=== PATIENT | female | born 1945 | race Caucasian/White ===

== ENCOUNTER → 2017-07-17 15:15 | Outpatient (CLI) | payer MEDICAID, SELFPAY ==
--- NOTE | 2017-07-17 15:17 | CT_ITS ---
STUDY: CT ABDOMEN AND PELVIS WITH CONTRAST REASON FOR EXAM: Female, 71 years old. Left-sided abdominal pain. Dehydration. RADIATION DOSAGE (If Supplied By Facility): CTDIvol = ( 20.29 ) mGy, DLP = ( 2123.93 ) mGycm TECHNIQUE: Transaxial images were obtained from the dome of the diaphragm to the symphysis pubis with oral contrast. 100mL ml of Isovue 300 contrast was administered. Sagittal and coronal images were reconstructed. Individualized dose optimization techniques were used for this CT. COMPARISON: Comparison is made with prior study dated July 11, 2016. FINDINGS: Small calcified granuloma at the right lung base. Tiny 2 mm noncalcified nodules in the right lung base suggestive of noncalcified granulomas. These are unchanged. The visualized portions of the heart are within normal limits. Normal liver. There are surgical clips in the gallbladder fossa consistent with a prior cholecystectomy. Stable mild degree of the central intrahepatic biliary ductal dilatation. There are multiple benign calcified granulomata of the spleen. Normal pancreas. There is a small, circumscribed, smooth, low attenuation left adrenal mass, consistent with an adrenal adenoma. This measures 1 cm. Normal right adrenal gland. Stable 4 mm nonobstructive calculus in the midportion of the right kidney. Normal left kidney. There is a small hiatal hernia. Normal small intestine. There are multiple colonic diverticula consistent with diverticulosis. The patient is status post appendectomy. There is diffuse atherosclerotic calcification of the abdominal aorta, without a demonstrated aneurysm. Normal inferior vena cava. There is borderline retroperitoneal lymphadenopathy with enlarged nodes no greater than 10mm in the short axis diameter. Normal urinary bladder. There is absence of the uterus consistent with a prior hysterectomy. Evidence of prior tubal ligation. There is a small umbilical hernia containing fat. There are diffuse degenerative changes of the visualized lumbar spine. CT/Abdomen/Pelvis WITH Contrast IMPRESSION: Status post cholecystectomy. Mild intrahepatic biliary ductal dilatation. Nonobstructive calculus in the right kidney. Electronically Signed: Baljeet Chen MD at 16:06 EST Tel [phone], Service support ,
== END ==
PROVIDERS: Family Provider Family Medicine Geriatric Medicine; PCP Family Medicine Geriatric Medicine; Visit Provider Family Medicine Geriatric Medicine
DX: R10.9 Unspecified abdominal pain (principal); E86.0 Dehydration
CPT/HCPCS: 96360; 96361; 36415; 74177; 80053; 85025; 87086; 87088; J7030; Q9967; A4216

== ENCOUNTER 2017-08-30 15:48 | Emergency (ER) | payer MEDICAID, SELFPAY ==
[2017-08-30 15:49] VITALS: BP 117/53; PULSE 82; RESP 16; TEMP 36.4; O2SAT 100; BMI 35.5
[2017-08-30 16:00] LABS: Bedside Glucose 204 mg/dL (70-110)
--- NOTE | 2017-08-30 16:23 | CT_ITS ---
STUDY: CT BRAIN WITHOUT CONTRAST REASON FOR EXAM: Female, 71 years old. CONFUSION RADIATION DOSAGE (If Supplied By Facility): CTDIvol = ( 44.99 ) mGy, DLP = ( 745.49 ) mGycm TECHNIQUE: Transaxial CT imaging of the brain was performed without administration of intravenous contrast material. COMPARISON: None. FINDINGS: Normal soft tissue structures. Normal calvarium. There are calcifications around the carotid artery. These are noted in the cavernous carotid arteries. There is mild cerebral atrophy with widening of the extra-axial spaces and ventricular dilatation. There are areas of decreased attenuation within the white matter tracts of the supratentorial brain, consistent with microvascular disease changes. Normal basal ganglia and thalami. Normal brainstem. There is mild cerebellar atrophy. There is no intracranial hemorrhage. There are no findings of an acute ischemic infarction. Normal visualized paranasal sinuses. CT/Brain/Head without Contrast IMPRESSION: Chronic involutional changes of the brain. There are no acute findings. Electronically Signed: Peter Carrera MD at 18:04 EST , Service support ,
--- NOTE | 2017-08-30 16:24 | EKG12_ITS ---
Test Reason : GEN ILL Blood Pressure : / mmHG Vent. Rate : 093 BPM Atrial Rate : 093 BPM P-R Int : 126 ms QRS Dur : 078 ms QT Int : 374 ms P-R-T Axes : 038 025 032 degrees QTc Int : 465 ms Normal sinus rhythm Septal infarct , age undetermined Abnormal ECG Confirmed by DUTCH BOWMAN, ANTONIA ([id number]), ip/mosaic technician JERRI SONI ([id number]) on 09/05/2017 3:28:54 PM Referred By: ROSENDO Confirmed By:ANTONIA JUDD MD
--- NOTE | 2017-08-30 16:30 | RAD_ITS ---
STUDY: X-RAY CHEST REASON FOR EXAM: Female, 71 years old. Weakness. TECHNIQUE: Single AP portable view of the chest. COMPARISON: Comparison is made with prior study dated November 28, 2015. FINDINGS: EKG electrodes are seen. The lungs are clear and expanded. There is no demonstrated pleural abnormality. Normal size heart. Normal mediastinum and elva. Normal visualized pulmonary arteries. There is atherosclerotic calcification of the aortic arch with tortuosity. There are diffuse degenerative changes of the visualized thoracic spine. Normal visualized ribs, clavicles, and shoulders. There is no demonstrated abnormality of the visualized soft tissue structures of the upper abdomen. RAD/Chest 1 View (Portable) IMPRESSION: No acute abnormality is seen. Electronically Signed: Baljeet Chen MD at 13:44 EST Tel [phone], Service support ,
[2017-08-30 16:57] LABS: Absolute Lymphocyte Count 2.41 X10^3/ul (0.83-4.51); Absolute Neutrophil Count 7.3 X10^3/uL (2.0-7.7); Basophil# 0.06 X10^3/uL; Basophil% 0.5 % (0-1); Eosinophil# 0.16 X10^3/uL; Eosinophils% 1.5 % (0-5); Hematocrit 39.9 % (37-47); Hemoglobin 13.5 g/dl (12.0-15.0); Lymphocyte # 2.41 X10^3/ul (4.0); Mean Corp Hgb Conc 33.8 g/gl (32-36); Mean Corpuscular Hgb 31.3 pg (27.0-32.0); Mean Corpuscular Volume 92.6 fL (81-99); Monocyte# 1.04 X10^3/uL; Monocyte% 9.5 % (0-10); Neutrophil # 7.25 X10^3/uL (2.7-7.7); Neutrophil % 66.2 % (47-70); Platelet Count 200 K/mm3 (150-450); RBC Distribution Width CV 12.5 % (11.6-14.6); RBC Distribution Width SD 42.2 fl (35.1-43.9); Red Blood Count 4.31 M/mm3 (4.2-5.4)
[2017-08-30 16:58] LABS: POSITIVE COUNT NO; POSITIVE DIFFERENTIAL NO; POSITIVE MORPHOLOGY NO
[2017-08-30 17:01] LABS: Carboxyhemoglobin Frac (CO) 0.5 % (0.0-1.5)
[2017-08-30 17:01] LABS: Allen Test POS; Base Excess 1 mmol/L (-2 to +2); Blood Gas Specimen Type ART; O2 Delivery Device Room Air; PO2 67 mmHG (75-100); SITE R Radial; SO2 94 % (95-99); Time Given 1650; Total Carbon Dioxide 26 mmol/L; pCO2 37.6 mmHg (35-45); pH 7.43 (7.35-7.45)
[2017-08-30 17:33] LABS: ALB/GLOB Ratio 1.2 RATIO (0.9-2.4); AST(SGOT) 10 U/L (15-37); Alanine Aminotransfer ALT/SGPT 25 U/L (13-56); Albumin, Serum 3.8 g/dL (3.2-5.0); Alkaline Phosphatase 53 U/L (45-117); Anion Gap 9 (5-15); BUN 35 mg/dL (7-18); BUN/Creat Ratio 25.5 RATIO (10-20); Calcium,Total 9.5 mg/dL (8.5-10.1); Chloride 101 mmol/L (98-107); Creatinine, Serum 1.37 mg/dL (0.55-1.02); EST Glomerular Filtration Rate 40 mL/min (>60); Est Glom Filt Rate - Afr Amer 49 mL/min (>60); Estimated Creatinine Clearance 28.42 ml/min; Globulin 3.3 g/dL (2.2-4.2); Glucose 179 mg/dL (74-106); Lipase 345 U/L (73-393); Potassium 4.3 mmol/L (3.5-5.1); Protein, Total 7.1 g/dL (6.4-8.2); Sodium Level 138 mmol/L (136-145)
[2017-08-30 18:06] VITALS: BP 109/51; PULSE 79; RESP 14; O2SAT 97
[2017-08-30 18:26] LABS: Bacteria 0 SEEN /hpf (None Seen); Mucous, Urine 0 SEEN /hpf (<or=2+); Red Blood Cells-Urine 0 SEEN /hpf (0-5)
[2017-08-30 18:32] LABS: Color, Urine Yellow (Yellow); Glucose, Dipstick 1000 mg/dl (Normal); Ketone-Dipstick Negative (Negative); Leukocyte Esterase-Dipstick 100 /ul (Negative); Nitrite-Dipstick Negative (Negative); Occult Blood-Urine Negative /ul (Negative); Protein-Dipstick Negative (Negative); Specific Gravity, Urine 1.015 (1.002-1.030); Urine Bilirubin Dipstick Negative (Negative); Urine Clarity Clear (Clear); Urine Urobilinogen Normal (Normal)
[2017-08-30 18:39] LABS: Squamous Epithelial Cells - UA 0-5 SEEN /hpf (5-10); White Blood Cells 5-10 SEEN /hpf (0-5)
[2017-08-30 18:54] LABS: Amphetamine Urine VISTA NEGATIVE (<1000 ng/mL); Barbiturate Urine VISTA NEGATIVE (< 200 ng/mL); Benzodiazepine Urine VISTA NEGATIVE (< 200 ng/mL); Cocaine Urine VISTA NEGATIVE (< 300 ng/mL); Ecstacy Urine VISTA NEGATIVE (< 500 ng/mL); Methadone Urine VISTA NEGATIVE (< 300 ng/mL); PCP Urine VISTA NEGATIVE (< 25 ng/mL); THC Urine VISTA NEGATIVE (< 50 ng/mL); Vista UDS pH Range 5
--- NOTE | 2017-08-30 20:01 | ED.RN ---
THIS NURSE ENTERED PT'S ROOM TO SEE PT SITTING UP ON SIDE OF BED IN STREET CLOTHING. PT INSISTED ON IV BEING REMOVED FROM [facility]. PT WAS ASKED IF SHE WOULD BE LEAVING A.M.A. AND PT'S SON SCREAMED AT THIS NURSE WHAT MEDICAL ADVISE YOU HAVEN'T DONE A FUCKING THING FOR HER THIS NURSE LEFT THE ROOM AND INFORMED DR. HI. DR. HI AND THIS NURSE FOUND PT UP AMBULATING IN HALLWAY WITH HER SON. THIS NURSE EXPLAINED THAT THE I.V. NEEDED TO BE D/C'D BEFORE PT COULD LEAVE. PT INSISTED SHE COULD TAKE THE I.V. OUT AT HOME. DR. HI EXPLAINED THAT THE NURSE NEEDS TO REMOVE I.V. PRIOR TO LEAVING. PT RETURNED TO ROOM 12 AND I.V. WAS D/C'D.
[2017-08-30 20:25] LABS: Thyroid Stim Hormone (TSH) 0.82 uIU/mL (0.358-3.74)
--- NOTE | 2017-08-31 00:21 | ED.VISSUMM ---
- ER Visit Summary Date of Service: 08/31/17 Chief Complaint: Fatigue History of Present Illness: The patient is a 71 F patient states for the past 3 hours she is felt extremely fatigued. She tells me that she started the day feeling fine. She was cleaning the oven. Then all of a sudden fatigued today. She cannot really describe it any further. She denies any pain. 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 Physical Examination: Afebrile vital signs are stable Gen: Well-nourished well-developed Head: Normocephalic atraumatic Eyes: Perrl EOMI ENT: TMs clear no rhinorrhea moist mucous membranes Neck: Supple no lymphadenopathy no JVD nontender CVS: Regular rate rhythm no murmurs normal S1-S2 Respiratory: No distress clear to auscultation bilaterally chest nontender Abdomen: Soft nontender nondistended normal bowel sounds no masses Back: Nontender Extremity: Nontender no edema Skin: Normal color no rash Neuro: alert orientated ?3 CN II-XII intact she needs help getting out of the wheelchair. At time the patient appears that she is going to fall asleep. Test Results: EKG sinus at a rate of 93. CBC chemistries showed a BUN of 35 and creatinine 1.37. Liver lipase normal. Urinalysis 5-10 white cells. Troponin less than 0.02. Toxicology the urine negative alcohol negative carbon monoxide 0.5. ABG negative. CT the brain chest x-ray showed no acute. TSH 0.82 Emergency Department Course and Treatment: Patient's chief complaint is fatigue. She cannot qualify or quantify anything more other than tell me she is tired. Therefore a broad workup was invoked. The patient began to be tired of being here. Somehow she was able to stand up and walk down the hallway on her own. She is directed back to the room. Her son yelled at nursing. Patient then got up and walked down the hallway again was instructed to return to the room to have her IV removed. She states she will she remove it herself. It would appear that the patient is probably looking for some degree of secondary gain. I do not find anything focal. Patient has decided to leave the emergency department. Impression: 1. Fatigue 2. ED elopement This note was generated with Dragon dictation software. It may contain incorrect words, spelling, and punctuation that were not noted in review of the chart prior to signing ED Disposition - Plan for ED Patient: Chief Complaint: Fatigue Referrals: Eulogio Alexis Chi, MD [Primary Care Provider] -
== END 2017-08-30 20:02 | disposition left against medical advice (07) ==
PROVIDERS: Emergency Provider Emergency Medicine; Family Provider Family Medicine Geriatric Medicine; PCP Family Medicine Geriatric Medicine
DX: R53.83 Other fatigue (principal); K21.9 Gastro-esophageal reflux disease without esophagitis; E66.9 Obesity, unspecified; Z68.35 Body mass index [BMI] 35.0-35.9, adult; Z71.3 Dietary counseling and surveillance; Z86.73 Personal history of transient ischemic attack (TIA), and cerebral infarction without residual deficits; I10 Essential (primary) hypertension; E78.00 Pure hypercholesterolemia, unspecified; J44.9 Chronic obstructive pulmonary disease, unspecified; E11.42 Type 2 diabetes mellitus with diabetic polyneuropathy; Z87.891 Personal history of nicotine dependence
CPT/HCPCS: 36600; 70450; 71045; 80053; 80307; 80320; 81001; 82375; 82803; 82962; 83690; 84443; 84484; 85025; 87804; 93005; 99284; A4216; G0480

== ENCOUNTER → 2017-09-13 09:31 | Outpatient (CLI) | payer MEDICAID, SELFPAY ==
[2017-09-13 13:22] LABS: Absolute Lymphocyte Count 1.91 X10^3/ul (0.83-4.51); Absolute Neutrophil Count 5.2 X10^3/uL (2.0-7.7); Basophil# 0.03 X10^3/uL; Basophil% 0.4 % (0-1); Eosinophil# 0.17 X10^3/uL; Eosinophils% 2.1 % (0-5); Hematocrit 40.2 % (37-47); Hemoglobin 13.6 g/dl (12.0-15.0); Lymphocyte # 1.91 X10^3/ul (4.0); Lymphocyte % 24.1 % (19-41); Mean Corp Hgb Conc 33.8 g/gl (32-36); Mean Corpuscular Hgb 31.8 pg (27.0-32.0); Mean Corpuscular Volume 93.9 fL (81-99); Monocyte# 0.59 X10^3/uL; Monocyte% 7.4 % (0-10); Neutrophil # 5.23 X10^3/uL (2.7-7.7); Neutrophil % 65.9 % (47-70); Platelet Count 169 K/mm3 (150-450); RBC Distribution Width CV 12.6 % (11.6-14.6); RBC Distribution Width SD 41.5 fl (35.1-43.9); Red Blood Count 4.28 M/mm3 (4.2-5.4); White Blood Count 7.9 K/mm3 (4.4-11.0)
[2017-09-13 13:35] LABS: POSITIVE COUNT NO; POSITIVE DIFFERENTIAL NO; POSITIVE MORPHOLOGY NO
[2017-09-13 13:41] LABS: Vitamin D,25 Hydroxy 35.3 ng/mL (29.95-100.01)
[2017-09-13 13:50] LABS: ALB/GLOB Ratio 1.1 RATIO (0.9-2.4); AST(SGOT) 16 U/L (15-37); Alanine Aminotransfer ALT/SGPT 35 U/L (13-56); Albumin, Serum 3.8 g/dL (3.2-5.0); Alkaline Phosphatase 49 U/L (45-117); Anion Gap 8 (5-15); BUN 24 mg/dL (7-18); BUN/Creat Ratio 18.5 RATIO (10-20); Chloride 100 mmol/L (98-107); EST Glomerular Filtration Rate 43 mL/min (>60); Est Glom Filt Rate - Afr Amer 52 mL/min (>60); Globulin 3.4 g/dL (2.2-4.2); Glucose 350 mg/dL (74-106); Potassium 4.3 mmol/L (3.5-5.1); Protein, Total 7.2 g/dL (6.4-8.2); Sodium Level 136 mmol/L (136-145); Thyroid Stim Hormone (TSH) 0.93 uIU/mL (0.358-3.74)
== END ==
PROVIDERS: Family Provider Family Medicine Geriatric Medicine; PCP Family Medicine Geriatric Medicine; Visit Provider Family Medicine Geriatric Medicine
DX: E11.9 Type 2 diabetes mellitus without complications (principal); E55.9 Vitamin D deficiency, unspecified; I10 Essential (primary) hypertension
CPT/HCPCS: 36415; 80053; 82306; 84443; 85025

== ENCOUNTER → 2017-09-26 12:14 | Outpatient (CLI) | payer MEDICARE, SELFPAY | PROVIDERS: Family Provider Family Medicine Geriatric Medicine; PCP Family Medicine Geriatric Medicine; Visit Provider Family Medicine Geriatric Medicine | DX: R69 Illness, unspecified (principal) | CPT/HCPCS: 87633 ==

== ENCOUNTER 2017-10-16 15:28 | Observation (INO) | payer MEDICARE, SELFPAY ==
[2017-10-16 15:30] VITALS: BP 133/50; PULSE 83; RESP 18; TEMP 37.1; O2SAT 99; BMI 33.1
--- NOTE | 2017-10-16 16:23 | CT_ITS ---
STUDY: CT ABDOMEN AND PELVIS WITHOUT CONTRAST REASON FOR EXAM: Female, 71 years old. Bloody stool. GI bleed since yesterday RADIATION DOSAGE (If Supplied By Facility): CTDIvol = ( 20.66 ) mGy, DLP = ( 949.47 ) mGycm TECHNIQUE: Transaxial images were obtained from the dome of the diaphragm to the symphysis pubis with oral contrast, and without intravenous contrast. Sagittal and coronal images were reconstructed. Individualized dose optimization techniques were used for this CT. COMPARISON: 07/17/2017 FINDINGS: Densely calcified granuloma in the right lower lobe. The visualized portions of the heart are within normal limits. Normal liver. There are surgical clips in the gallbladder fossa consistent with a prior cholecystectomy. There are multiple benign calcified granulomata of the spleen. Normal pancreas. Normal bilateral adrenal glands. There is moderate cortical atrophy of the right kidney, consistent with chronic medical renal disease. Nonobstructing mid pole nephrolith measuring 6.6 mm. There is moderate cortical atrophy of the left kidney, consistent with chronic medical renal disease. Normal visualized stomach. Multiple loops of small bowel demonstrating mild wall thickening. No abnormal dilation or obstruction. There are multiple colonic diverticula consistent with diverticulosis. There is non-visualization of the appendix. There is diffuse atherosclerotic calcification of the abdominal aorta, without a demonstrated aneurysm. Normal inferior vena cava. Normal retroperitoneum. Normal urinary bladder. There is absence of the uterus consistent with a prior hysterectomy. There is a small umbilical hernia containing fat. There are diffuse degenerative changes of the visualized lumbar spine. CT/Abdomen/Pel W ORAL Cont Only IMPRESSION: Several loops of small bowel demonstrate mild wall thickening suggesting enteritis. No evidence of small bowel obstruction. Large bowel demonstrates fecal retention and diverticulosis without acute diverticulitis. No evidence of colitis. Status post cholecystectomy. Electronically Signed: Adonis Orlando DO at 19:04 EDT Tel , Service support ,
[2017-10-16 16:49] LABS: Absolute Lymphocyte Count 1.13 X10^3/ul (0.83-4.51); Absolute Neutrophil Count 5.4 X10^3/uL (2.0-7.7); Basophil# 0.03 X10^3/uL; Basophil% 0.4 % (0-1); Eosinophil# 0.09 X10^3/uL; Eosinophils% 1.3 % (0-5); Hematocrit 38.6 % (37-47); Lymphocyte # 1.13 X10^3/ul (4.0); Lymphocyte % 15.8 % (19-41); Mean Corp Hgb Conc 33.7 g/gl (32-36); Mean Corpuscular Hgb 32.3 pg (27.0-32.0); Monocyte# 0.49 X10^3/uL; Monocyte% 6.9 % (0-10); Neutrophil % 75.5 % (47-70); Platelet Count 173 K/mm3 (150-450); RBC Distribution Width CV 13.5 % (11.6-14.6); RBC Distribution Width SD 46.9 fl (35.1-43.9); Red Blood Count 4.02 M/mm3 (4.2-5.4); White Blood Count 7.2 K/mm3 (4.4-11.0)
[2017-10-16 16:50] LABS: POSITIVE COUNT NO; POSITIVE DIFFERENTIAL NO; POSITIVE MORPHOLOGY NO
[2017-10-16 16:58] LABS: International Normalized Ratio 0.9; Prothrombin Time (Protime)PT. 12.1 SECONDS (11.7-14.9)
[2017-10-16 17:21] LABS: Anion Gap 8 (5-15); BUN 22 mg/dL (7-18); BUN/Creat Ratio 15.1 RATIO (10-20); Calcium,Total 8.3 mg/dL (8.5-10.1); Chloride 97 mmol/L (98-107); Creatinine, Serum 1.46 mg/dL (0.55-1.02); EST Glomerular Filtration Rate 37 mL/min (>60); Est Glom Filt Rate - Afr Amer 45 mL/min (>60); Estimated Creatinine Clearance 27.95 ml/min; Glucose 735 mg/dL (74-106); Potassium 4.1 mmol/L (3.5-5.1); Sodium Level 131 mmol/L (136-145)
[2017-10-16] MEDS: Morphine 4 MG/ML Syringe IV (17:21)
[2017-10-16] MEDS: 0.9% Normal Saline 1,000 ML 1000 ML IV (17:21)
[2017-10-16] MEDS: Ondansetron 4 MG/2 ML Vial IV (17:22)
[2017-10-16 17:38] LABS: Lactic Acid 2.4 mmol/L (0.4-2.0)
--- NOTE | 2017-10-16 17:38 | ED.RN ---
Critical glucose of [address] Kay and Nelli RN made aware
[2017-10-16] MEDS: 0.9% Normal Saline 1,000 ML 999 ML IV (17:54)
[2017-10-16 17:56] LABS: Blood Gas Specimen Type VEN; SITE OTHER; Time Given 1744; VBG BASE EXCESS -1 mmol/L (-1.0-3.5); VBG Bicarbonate 24 mmol/L (22-26); VBG Oxygen Content 25 mmol/L (23-33); VBG PO2 24 mmHg (25-40); VBG SO2 43 % (50-70); VBG pCO2 39.6 mmHg (41-51); VBG pH 7.39 (7.32-7.42)
[2017-10-16 18:06] LABS: Bedside Glucose > 500 mg/dL (70-110)
[2017-10-16 18:28] VITALS: BP 123/50; PULSE 72; RESP 16; O2SAT 96
--- NOTE | 2017-10-16 18:36 | EKG12_ITS ---
Test Reason : CP Blood Pressure : / mmHG Vent. Rate : 074 BPM Atrial Rate : 074 BPM P-R Int : 130 ms QRS Dur : 080 ms QT Int : 376 ms P-R-T Axes : 053 038 034 degrees QTc Int : 417 ms Normal sinus rhythm Normal ECG Confirmed by HAYES MADSEN ([id number]), fashion editor JERRI SONI ([id number]) on 10/19/2017 2:39:36 PM Referred By: Eulogio Alexis Confirmed By:HAYES MADSEN
[2017-10-16 19:16] LABS: Bedside Glucose 477 mg/dL (70-110)
--- NOTE | 2017-10-16 19:45 | HP.PCM_ITS ---
Problem List (1) ELENITA on CPAP Status: Chronic (2) COPD (chronic obstructive pulmonary disease) Status: Chronic Qualifiers: Emphysema type: unspecified (3) Peripheral neuropathy Status: Chronic Qualifiers: Peripheral neuropathy type: polyneuropathy, unspecified Qualified Code(s): G62.9 - Polyneuropathy, unspecified (4) Esophageal reflux Status: Chronic Qualifiers: Esophagitis presence: esophagitis presence not specified Qualified Code(s) : K21.9 - Gastro-esophageal reflux disease without esophagitis (5) Depressive disorder Status: Chronic (6) Abdominal wound dehiscence Status: Chronic Qualifiers: Encounter type: subsequent encounter Qualified Code(s): T81.30XD - Disruption of wound, unspecified, subsequent encounter (7) 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 Comment: nonhealing MRSA diabetic ulcer abdominal wall (8) Personal history of Methicillin resistant Staphylococcus aureus infection Status: Chronic History of Present Illness Date of Admission: 10/16/17 This is a 71 F with a history of insulin requiring diabetes type 2, hypertension, CVA, ELENITA, hyperlipidemia and multiple abdominal surgeries . Who presented to the emergency room due to left lower quadrant abdominal pain and rectal bleed. Patient reported that she had bright red blood per rectum but later described dark stools. Occult test done in the emergency room is negative and her hemoglobin is > 13. CT Scan of the abdomen and pelvis done in the emergency room showed several loops of small bowels demonstrate mild wall thickening suggestive of enteritis, there is no evidence of small or large bowel obstruction. When I saw her in the emergency room she denied any abdominal pain and she has not had any rectal bleeding today. Noted in the emergency room to have hypoglycemia with blood sugar more than 700 she was started on insulin drip in the emergency room as he responded nicely with blood sugars now in 300s. The patient reports to me that she is prescribed insulin but she does not use it for no clear reasons. 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 abdominal wall Personal history of Methicillin resistant Staphylococcus aureus infection ( Chronic) Skin ulcer of abdominal wall with fat layer exposed (Chronic) Smoker (Chronic) Obesity (Chronic) Hypertension (Chronic) Diabetes type 2, uncontrolled (Chronic) Wound, surgical, nonhealing (Chronic) Hyperglycemia (Chronic) Morbid obesity with BMI of 40.0-44.9, adult (Chronic) Open abdominal wall wound (Chronic) painful insulin nodules abd wall (Chronic) late effect medical care with painful insulin nodules abdominal wall Hyperlipidemia (Chronic) MRSA (Chronic) MRSA anterior abdomen wall cellulitis (Chronic) Cerebrovascular disease (Chronic) Status post acute ischemic stroke No residual deficit Diabetes mellitus (Chronic) Allergies codeine Allergy (Verified 10/16/17 15:32) Shortness of breath Penicillins Allergy (Verified 10/16/17 15:32) Hives CILLINS Allergy (Uncoded 10/16/17 15:32) Unknown Home Medications: Ambulatory Orders Medication Instructions Recorded Clopidogrel Bisulfate [Plavix] 75 mg PO DAILY 04/10/15 Isosorbide Mononitrate [Isosorbide 30 mg PO DAILY 04/10/15 Mononitrate ER] Insulin Lispro [Humalog] 25 unit SC TIDCM 02/15/16 Metformin HCl [Glucophage] 1,000 mg PO BIDCM 02/15/16 Empagliflozin [Jardiance] 25 mg PO DAILY 07/17/17 Ergocalciferol [Vitamin D] 50,000 unit PO QMONTH 07/17/17 Linagliptin [Tradjenta] 5 mg PO DAILY 07/17/17 Famotidine [Famotidine] 40 mg PO DAILY 08/30/17 Paroxetine HCl [Paxil] 40 mg PO QHS 08/30/17 Valsartan/Hydrochlorothiazide 1 tab PO DAILY 08/30/17 [Valsartan-Hctz 320-25 mg Tab] Atorvastatin Calcium [Atorvastatin 40 mg PO QHS 10/16/17 Calcium] Insulin Glargine/Lixisenatide 30 unit SQ BID 10/16/17 [Soliqua 100 Unit-33 Mcg/ml Pen] Latanoprost [Latanoprost] 1 drop EACH EYE QHS 10/16/17 Omeprazole [Omeprazole] 40 g PO DAILY 10/16/17 Surgical History: appendectomy, cholecystectomy, hysterectomy, - Psychiatric History: Depression [employer] CHIEF History: No pertinent [employer] CHIEF history Smoking Status: Current every day smoker - *Family History Maternal History Items: No pertinent history Paternal History Items: No pertinent history Review of Systems Comment: Review of systems VTE Information - Inpt Only VTE Present on Admission: No VTE Mechan Device Prophylaxis: SCD's VTE Pharm Prophylaxis ordered?: Yes - Physical Exam General: Alert, Oriented x3 HEENT: Atraumatic Oral: Moist Mucosa Neck: Supple Lungs: Clear to auscultation Cardiovascular: Regular rate, Normal S1, Normal S2 Abdomen: Bowel Sounds Present, Soft Extremities: No edema Neurological: Cranial nerves II-XII grossly intact, Neuro grossly intact, Motor Exam 5/5 strength throughout Vital Signs Temp Pulse Resp BP Pulse Ox 98.8 F 72 16 123/50 H 96 10/16/17 15:30 10/16/17 18:28 10/16/17 18:28 10/16/17 18:28 10/16/17 18:28 Oxygen Delivery Method Room Air Weight: 82.2 kg Body Mass Index (BMI) 33.1 Finger Stick Blood Glucose 477 Microbiology Past 72 Hours 10/16/17 16:24 Stool Occult Blood (ANTONIO) - Final Stool Laboratory Tests Past 24 Hrs 10/16/17 10/16/17 10/16/17 16:24 16:24 16:24 WBC 7.2 RBC 4.02 L Hgb 13.0 Hct 38.6 MCV 96.0 MCH 32.3 H MCHC 33.7 RDW 13.5 RDW Differential 46.9 H Plt Count 173 MPV 11.0 Immature Gran % (Auto) 0.100 Neut % (Auto) 75.5 H Lymph % (Auto) 15.8 L Pennington % (Auto) 6.9 Eos % (Auto) 1.3 Baso % (Auto) 0.4 Absolute Neuts (auto) 5.4 Absolute Lymphs (auto) 1.13 Total Counted Not Reportable PT 12.1 INR 0.9 Specimen Type Sample Site VBG pH VBG pO2 VBG O2 Sat (Calc) VBG O2 Content VBG Base Excess POC Mix VBG pCO2 Pt Tmp Blood Gas Notified Whom Blood Gas Notified Time Sodium 131 L Potassium 4.1 Chloride 97 L Carbon Dioxide 26.0 Anion Gap 8 BUN 22 H Creatinine 1.46 H Estim Creat Clear Calc 27.95 Est GFR (MDRD) Af Amer 45 L Est GFR (MDRD) Non-Af 37 L BUN/Creatinine Ratio 15.1 Glucose 735 H* Lactic Acid Calcium 8.3 L Acetone Level Blood Type Antibody Screen 10/16/17 10/16/17 10/16/17 16:24 16:24 17:44 WBC RBC Hgb Hct MCV MCH MCHC RDW RDW Differential Plt Count MPV Immature Gran % (Auto) Neut % (Auto) Lymph % (Auto) Pennington % (Auto) Eos % (Auto) Baso % (Auto) Absolute Neuts (auto) Absolute Lymphs (auto) Total Counted PT INR Specimen Type Sample Site VBG pH VBG pO2 VBG O2 Sat (Calc) VBG O2 Content VBG Base Excess POC Mix VBG pCO2 Pt Tmp Blood Gas Notified Whom Blood Gas Notified Time Sodium Potassium Chloride Carbon Dioxide Anion Gap BUN Creatinine Estim Creat Clear Calc Est GFR (MDRD) Af Amer Est GFR (MDRD) Non-Af BUN/Creatinine Ratio Glucose Lactic Acid 2.4 H Calcium Acetone Level NEGATIVE Blood Type O POSITIVE Antibody Screen NEGATIVE 10/16/17 17:50 WBC RBC Hgb Hct MCV MCH MCHC RDW RDW Differential Plt Count MPV Immature Gran % (Auto) Neut % (Auto) Lymph % (Auto) Pennington % (Auto) Eos % (Auto) Baso % (Auto) Absolute Neuts (auto) Absolute Lymphs (auto) Total Counted PT INR Specimen Type GILLIAN Sample Site OTHER VBG pH 7.39 VBG pO2 24 L VBG O2 Sat (Calc) 43 L VBG O2 Content 25 VBG Base Excess -1 POC Mix VBG pCO2 Pt Tmp 39.6 L Blood Gas Notified Whom ED MD Blood Gas Notified Time 1744 Sodium Potassium Chloride Carbon Dioxide Anion Gap BUN Creatinine Estim Creat Clear Calc Est GFR (MDRD) Af Amer Est GFR (MDRD) Non-Af BUN/Creatinine Ratio Glucose Lactic Acid Calcium Acetone Level Blood Type Antibody Screen POC Glucose 10/16/17 10/16/17 18:57 17:53 POC Glucose 477 H* > 500 H* Assessment/Plan 1. Diabetes type 2 with hyperglycemia due to noncompliance; place her back on her home dose of Lantus, the pre-meal regular insulin and regular insulin sliding scale for glycemic spikes. He said is recommended to adhere to her prescribed insulin regimen. 2. ? No evidence of GI bleed at this point, she has a negative Hemoccult test and a hemoglobin remains stable. Continue to monitor. The patient reports he had a colonoscopy within the last 2 years with polyps removed. If her hemoglobin continues to remain stable, follow-up with her family care physician to arrange for outpatient colonoscopy. 3. Old CVA; she is on Plavix for secondary stroke prevention, since there is concern for a GI bleed we will hold off on her Plavix for now. 4. ELENITA; HS CPAP. 5. Essential hypertension; we will resume her home medications as they are. 6. DVT prophylaxis with SCDs. Code Visit OBSV E&M: 40507 Initial observation care L3
[2017-10-16 19:50] VITALS: BMI 33.1
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
[2017-10-16 20:04] LABS: Lipase 383 U/L (73-393)
[2017-10-16 20:08] LABS: AST(SGOT) 13 U/L (15-37); Alanine Aminotransfer ALT/SGPT 26 U/L (13-56); Albumin, Serum 3.6 g/dL (3.2-5.0); Alkaline Phosphatase 65 U/L (45-117); Globulin 3.2 g/dL (2.2-4.2); Protein, Total 6.8 g/dL (6.4-8.2)
[2017-10-16 20:15] LABS: Bedside Glucose 383 mg/dL (70-110)
--- NOTE | 2017-10-16 20:20 | NURSING ---
Per Dr Fortune, insulin drip to be d/c, ok for medsurg admission.
[2017-10-16] MEDS: 0.9% Normal Saline 1,000 ML 100 ML IV (20:30)
--- NOTE | 2017-10-16 20:30 | ED.RN ---
PER HOSPITALIST ORDERS INSULIN DRIP STOPPED AT THIS TIME TOTAL OF 7.2 ML INFUSED IN INSULIN DRIP
[2017-10-16 20:37] VITALS: BP 138/35; PULSE 83; RESP 18; TEMP 37.1; O2SAT 98
[2017-10-16 20:40] VITALS: BP 138/39; PULSE 88; RESP 16; O2SAT 98
[2017-10-16 20:45] LABS: Reflex Lactate? Y
--- NOTE | 2017-10-16 20:51 | ED.RN ---
NOTIFIED MD ABOUT DIASTOLIC NUMBER OF BLOOD PRESSURE. NO NEW ORDERS.
[2017-10-16 21:39] VITALS: BP 120/40; PULSE 79; RESP 16; TEMP 36.8; O2SAT 98
[2017-10-16 21:40] VITALS: BMI 34.8
[2017-10-16 21:50] LABS: Lactic Acid 1.4 mmol/L (0.4-2.0)
[2017-10-16] MEDS: Pantoprazole Sodium 40 MG Tablet PO (22:23)
[2017-10-16] MEDS: Latanoprost 0.005% 1 Bottle 1 DRP EACH EYE (22:23)
[2017-10-16] MEDS: Atorvastatin Calcium 40 MG Tablet PO (22:24)
[2017-10-16 22:26] LABS: Bedside Glucose 409 mg/dL (70-110)
[2017-10-16 23:01] VITALS: PULSE 87
[2017-10-16 23:56] LABS: Bedside Glucose 358 mg/dL (70-110)
[2017-10-17 03:14] VITALS: BP 122/49; PULSE 68; RESP 18; TEMP 36.9; O2SAT 96
[2017-10-17 03:21] LABS: Bedside Glucose 268 mg/dL (70-110)
[2017-10-17 04:00] VITALS: PULSE 68
[2017-10-17 05:58] LABS: Hematocrit 33.4 % (37-47); Hemoglobin 11.5 g/dl (12.0-15.0); Mean Corp Hgb Conc 34.4 g/gl (32-36); Mean Corpuscular Hgb 32.7 pg (27.0-32.0); Mean Corpuscular Volume 94.9 fL (81-99); Platelet Count 124 K/mm3 (150-450); RBC Distribution Width CV 13.4 % (11.6-14.6); RBC Distribution Width SD 44.3 fl (35.1-43.9); Red Blood Count 3.52 M/mm3 (4.2-5.4); White Blood Count 5.4 K/mm3 (4.4-11.0)
[2017-10-17 06:08] LABS: Scan Indicated on CBC? Y/N NO
[2017-10-17 06:11] LABS: Anion Gap 5 (5-15); BUN 13 mg/dL (7-18); Calcium,Total 7.7 mg/dL (8.5-10.1); Chloride 111 mmol/L (98-107); Creatinine, Serum 0.81 mg/dL (0.55-1.02); EST Glomerular Filtration Rate 74 mL/min (>60); Est Glom Filt Rate - Afr Amer 89 mL/min (>60); Estimated Creatinine Clearance 50.38 ml/min; Glucose 240 mg/dL (74-106); Potassium 4.3 mmol/L (3.5-5.1); Sodium Level 142 mmol/L (136-145)
[2017-10-17] MEDS: 0.9% Normal Saline 1,000 ML 75 ML IV (08:19)
[2017-10-17 08:35] VITALS: BP 115/48; PULSE 70; RESP 18; TEMP 36.6; O2SAT 98
[2017-10-17 08:38] VITALS: PULSE 70
[2017-10-17 08:45] LABS: Bedside Glucose 214 mg/dL (70-110)
[2017-10-17] MEDS: hydroCHLOROthiazide 25 MG Tablet PO (09:41)
[2017-10-17] MEDS: Famotidine 20 MG Tablet 40 MG PO (09:41)
[2017-10-17] MEDS: Pantoprazole Sodium 40 MG Tablet PO (09:41)
[2017-10-17] MEDS: LINAGLIPTIN 5 MG TABLET PO (09:41)
[2017-10-17] MEDS: Isosorbide Mononitrate 30 MG Tablet PO (09:42)
--- NOTE | 2017-10-17 09:59 | PCM.DC ---
You will use the following diet at home:: Calorie/Carbohydrate Controlled (specify 1200, 1400, etc), Cardiac Discharge Activity: Return to Normal Activity Call your doctor if you observe: Fever of 101 or Higher, Inability to have a bowel movement, Shortness of breath, Dizziness, Fainting spells, Chest pain, - - Continued rectal bleeding. Allergies/Adverse Reactions: Allergies codeine Allergy (Verified 10/16/17 15:32) Shortness of breath Penicillins Allergy (Verified 10/16/17 15:32) Hives CILLINS Allergy (Uncoded 10/16/17 15:32) Unknown Medications to take at Discharge Clopidogrel Bisulfate [Plavix] 75 mg PO DAILY 04/10/15 Isosorbide Mononitrate [Isosorbide Mononitrate ER] 30 mg PO DAILY 04/10/15 Insulin Lispro [Humalog] 25 unit SC TIDCM 02/15/16 Metformin HCl [Glucophage] 1,000 mg PO BIDCM 02/15/16 Empagliflozin [Jardiance] 25 mg PO DAILY 07/17/17 Ergocalciferol [Vitamin D] 50,000 unit PO QMONTH 07/17/17 Linagliptin [Tradjenta] 5 mg PO DAILY 07/17/17 Famotidine 40 mg PO DAILY 08/30/17 Paroxetine HCl [Paxil] 40 mg PO QHS 08/30/17 Valsartan/Hydrochlorothiazide [Valsartan-Hctz 320-25 mg Tab] 1 tab PO DAILY 08/30/17 Atorvastatin Calcium 40 mg PO QHS 10/16/17 Insulin Glargine/Lixisenatide [Soliqua 100 Unit-33 Mcg/ml Pen] 30 unit SQ BID 10/16/17 Latanoprost 1 drop EACH EYE QHS 10/16/17 Omeprazole 40 g PO DAILY 10/16/17 Primary Care Physician: Eulogio Alexis Chi, MD [Primary Care Provider] - Please follow up with your Primary Care Physician in: 1 Week Please Follow Up With: Toi Hunter MD When: 1-2 Weeks Proposed Discharge Date: 10/17/17
--- NOTE | 2017-10-17 10:01 | PCM.DC.SUM ---
<Lesly Carter - Last Filed: 10/17/17 12:11> Discharge Date and Diagnosis Date of Admission: 10/16/17 Date of Discharge: 10/17/17 - Primary Discharge Diagnosis 1. Type 2 diabetes mellitus with hyperglycemia secondary to noncompliance 2. Reported rectal bleeding prior to admission-stool for occult blood negative. Hemoglobin stable. 3. Abdominal pain/cramping-suspected gastroenteritis. 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) Skin ulcer of abdominal wall with fat layer exposed (Chronic) Smoker (Chronic) Obesity (Chronic) Hypertension (Chronic) Diabetes type 2, uncontrolled (Chronic) Wound, surgical, nonhealing (Chronic) Hyperglycemia (Chronic) Morbid obesity with BMI of 40.0-44.9, adult (Chronic) Open abdominal wall wound (Chronic) painful insulin nodules abd wall (Chronic) late effect medical care with painful insulin nodules abdominal wall Hyperlipidemia (Chronic) MRSA (Chronic) MRSA anterior abdomen wall cellulitis (Chronic) Cerebrovascular disease (Chronic) Status post acute ischemic stroke No residual deficit Diabetes mellitus (Chronic) Hospital Course and Treatment Imaging Results: Diagnostic Data Abdomen CT 10/16/17 16:23 IMPRESSION: Several loops of small bowel demonstrate mild wall thickening suggesting enteritis. No evidence of small bowel obstruction. Large bowel demonstrates fecal retention and diverticulosis without acute diverticulitis. No evidence of colitis. Status post cholecystectomy. Electronically Signed: Adonis Orlando DO at 19:04 EDT Tel , Service support , Operations: None Procedures: None Summary of Care Provided: The patient is a 71 year old F admitted 10/16/17 due to left lower quadrant abdominal pain, rectal bleeding. Patient has a past medical history of obstructive sleep apnea on CPAP, COPD, GERD, depression, type 2 diabetes mellitus, tobacco dependence, obesity, hypertension, hyperlipidemia, CVA, history of panniculectomy with recurrent abdominal wound infections and history of MRSA. Patient's blood glucose on admission was found to be 735. Stool for occult blood negative. Patient denies further rectal bleeding since admission. Hemoglobin stable. Abdominal pain quickly resolved. CT of abdomen showed several loops of small bowel which demonstrated mild wall thickening suggestive of enteritis. No evidence of small bowel obstruction. Large bowel demonstrates fecal retention and diverticulosis without acute diverticulitis. No evidence of colitis. Status post cholecystectomy. Patient denies constipation. Denies nausea, vomiting. No tenderness to palpation of abdomen. Patient had a CT of the abdomen and pelvis in July 2017 for left lower quadrant abdominal pain which showed mild biliary ductal dilatation and nonobstructive calculus in the right kidney. Recommend follow-up with Dr. Hunter, gastroenterology in 1-2 weeks given recurrent abdominal pain and reported rectal bleeding prior to admission. Patient states she has had a colonoscopy in the past 2 years. Patient may need repeat outpatient colonoscopy. She does state she has a history of rectal bleeding secondary to hemorrhoids and is on Plavix. Given no further rectal bleeding at this time, patient may resume Plavix at discharge given history of CVA. Patient was placed on home insulin regimen and blood sugar improved. Patient states she has not taken any of her home medications for the past 4 days due to stress. Strongly encouraged patient to follow prescribed regimen. Hemoglobin A1c 10/29/15 12.6%. Recommend repeating hemoglobin A1c by primary care physician. Other chronic medical conditions as noted above are stable at this time. Patient seen and examined prior to discharge. Heart rate regular rate and rhythm, no murmur. Lungs clear, diminished. Neuro grossly intact. Abdomen soft, nontender. Vital signs stable. Patient is stable for discharge home with the follow-up recommendations as noted above. This patient was seen by EMILIANA Taylor under the supervision of Dr. Saucedo. Discharge Diet: Low fat/ Low Cholesterol, Carb Control Diet Discharge Activity: Return to Normal Activity Call your doctor if you observe: Fever of 101 or Higher, Inability to have a bowel movement, Shortness of breath, Dizziness, Fainting spells, Chest pain, - - Continued rectal bleeding. Home Medications: Medications to take at Discharge Clopidogrel Bisulfate [Plavix] 75 mg PO DAILY 04/10/15 Isosorbide Mononitrate [Isosorbide Mononitrate ER] 30 mg PO DAILY 04/10/15 Insulin Lispro [Humalog] 25 unit SC TIDCM 02/15/16 Metformin HCl [Glucophage] 1,000 mg PO BIDCM 02/15/16 Empagliflozin [Jardiance] 25 mg PO DAILY 07/17/17 Ergocalciferol [Vitamin D] 50,000 unit PO QMONTH 07/17/17 Linagliptin [Tradjenta] 5 mg PO DAILY 07/17/17 Famotidine 40 mg PO DAILY 08/30/17 Paroxetine HCl [Paxil] 40 mg PO QHS 08/30/17 Valsartan/Hydrochlorothiazide [Valsartan-Hctz 320-25 mg Tab] 1 tab PO DAILY 08/30/17 Atorvastatin Calcium 40 mg PO QHS 10/16/17 Insulin Glargine/Lixisenatide [Soliqua 100 Unit-33 Mcg/ml Pen] 30 unit SQ BID 10/16/17 Latanoprost 1 drop EACH EYE QHS 10/16/17 Omeprazole 40 g PO DAILY 10/16/17 Primary Care Physician: Eulogio Alexis Chi, MD [Primary Care Provider] - Please follow up with your Primary Care Physician in: 1 Week Please Follow Up With: Toi Hunter MD When: 1-2 Weeks Disposition: Home Minutes spent on discharge:: 35 Patient Condition:: Stable Medical Necessity - Tobacco Use Smoking Status: Current every day smoker Meaningful Use Info Meaningful Use Diagnoses (Choose all that apply): None applicable <Sharron Saucedo E - Last Filed: 10/17/17 16:13> Discharge Date and Diagnosis 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) Skin ulcer of abdominal wall with fat layer exposed (Chronic) Smoker (Chronic) Obesity (Chronic) Hypertension (Chronic) Diabetes type 2, uncontrolled (Chronic) Wound, surgical, nonhealing (Chronic) Hyperglycemia (Chronic) Morbid obesity with BMI of 40.0-44.9, adult (Chronic) Open abdominal wall wound (Chronic) painful insulin nodules abd wall (Chronic) late effect medical care with painful insulin nodules abdominal wall Hyperlipidemia (Chronic) MRSA (Chronic) MRSA anterior abdomen wall cellulitis (Chronic) Cerebrovascular disease (Chronic) Status post acute ischemic stroke No residual deficit Diabetes mellitus (Chronic) Hospital Course and Treatment Summary of Care Provided: Hospitalist note: Discharge summary above reviewed as well as physical examination and agree with above discharge plan. Patient seen and examined on the day of discharge and appeared to be stable to be discharged home. Patient was admitted because of lower abdominal pain and questionable rectal bleeding. She was found to have highly elevated blood sugar, hyperglycemia without evidence of acute DKA. This hyperglycemia is due to noncompliance. Patient admitted not taking her insulin for the last 4 days. Her blood sugar on admission was 735. Her serum bicarbonate was 26 and anion gap was 8. There was no evidence of acute diabetic ketoacidosis. Patient was treated with IV fluids and her home dosage of insulin and her blood sugar improved significantly. Her lactic acid was slightly elevated which is attributed to dehydration and hyperglycemia and it came down to normal upon administration of IV fluids. She was dehydrated, admission creatinine was 1.46 and with IV fluid therapy, creatinine came down to 0.81. CT scan abdomen and pelvis with oral contrast reviewed as above. Her vital signs remained stable. She complained of abdominal pain and cramping which is attributed to gastroenteritis. She had one episode of rectal bleeding according to the patient but her stool for occult blood was negative and her hemoglobin and hematocrit are stable. After treatment, patient has no more abdominal pain and his sugar stabilized. Patient discharged home on the same dosage and type of insulin that she has been taking for admission, highly recommended to be compliant with her insulin regimen, recommended to check blood sugar at least 3-4 times daily, follow-up with PCP in 1 week. . Minutes spent on discharge:: 26 Code Visit OBSV E&M: 22029 Observation care discharge
--- NOTE | 2017-10-17 10:13 | DS.PCM_ITS ---
Addendum entered and electronically signed by EMILIANA Taylor 10/17/17 12:16: Code Visit In addition: Patient's creat 1.46 on admission. Improved to 0.81 at discharge. No acute kidney injury. Suspect mild dehydration. Also suspect underlying chronic kidney disease stage II-III. Lactic acidosis on admission with lactic acid 2.4. Repeat lactic acid 1.4. No sepsis. No infectious etiology. Suspect reactive secondary to severely elevated hyperglycemia on admission. Original Note: <Lesly Caretr - Last Filed: 10/17/17 12:11> Discharge Date and Diagnosis Date of Admission: 10/16/17 Date of Discharge: 10/17/17 - Primary Discharge Diagnosis 1. Type 2 diabetes mellitus with hyperglycemia secondary to noncompliance 2. Reported rectal bleeding prior to admission-stool for occult blood negative. Hemoglobin stable. 3. Abdominal pain/cramping-suspected gastroenteritis. - Secondary Discharge Diagnosis Chronic Problems ELENITA on CPAP (Chronic) COPD (chronic obstructive pulmonary disease) (Chronic) Peripheral neuropathy (Chronic) Esophageal reflux (Chronic) Depressive disorder (Chronic) Abdominal wound dehiscence (Chronic) 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) nonhealing MRSA diabetic ulcer abdominal wall Personal history of Methicillin resistant Staphylococcus aureus infection ( Chronic) Skin ulcer of abdominal wall with fat layer exposed (Chronic) Smoker (Chronic) Obesity (Chronic) Hypertension (Chronic) Diabetes type 2, uncontrolled (Chronic) Wound, surgical, nonhealing (Chronic) Hyperglycemia (Chronic) Morbid obesity with BMI of 40.0-44.9, adult (Chronic) Open abdominal wall wound (Chronic) painful insulin nodules abd wall (Chronic) late effect medical care with painful insulin nodules abdominal wall Hyperlipidemia (Chronic) MRSA (Chronic) MRSA anterior abdomen wall cellulitis (Chronic) Cerebrovascular disease (Chronic) Status post acute ischemic stroke No residual deficit Diabetes mellitus (Chronic) Hospital Course and Treatment Imaging Results: Diagnostic Data Abdomen CT 10/16/17 16:23 IMPRESSION: Several loops of small bowel demonstrate mild wall thickening suggesting enteritis. No evidence of small bowel obstruction. Large bowel demonstrates fecal retention and diverticulosis without acute diverticulitis. No evidence of colitis. Status post cholecystectomy. Electronically Signed: Adonis Orlando DO at 19:04 EDT Tel , Service support , Operations: None Procedures: None Summary of Care Provided: The patient is a 71 year old F admitted 10/16/17 due to left lower quadrant abdominal pain, rectal bleeding. Patient has a past medical history of obstructive sleep apnea on CPAP, COPD, GERD, depression, type 2 diabetes mellitus, tobacco dependence, obesity, hypertension, hyperlipidemia, CVA, history of panniculectomy with recurrent abdominal wound infections and history of MRSA. Patient's blood glucose on admission was found to be 735. Stool for occult blood negative. Patient denies further rectal bleeding since admission. Hemoglobin stable. Abdominal pain quickly resolved. CT of abdomen showed several loops of small bowel which demonstrated mild wall thickening suggestive of enteritis. No evidence of small bowel obstruction. Large bowel demonstrates fecal retention and diverticulosis without acute diverticulitis. No evidence of colitis. Status post cholecystectomy. Patient denies constipation. Denies nausea, vomiting. No tenderness to palpation of abdomen. Patient had a CT of the abdomen and pelvis in July 2017 for left lower quadrant abdominal pain which showed mild biliary ductal dilatation and nonobstructive calculus in the right kidney. Recommend follow-up with Dr. Hunter, gastroenterology in 1-2 weeks given recurrent abdominal pain and reported rectal bleeding prior to admission. Patient states she has had a colonoscopy in the past 2 years. Patient may need repeat outpatient colonoscopy. She does state she has a history of rectal bleeding secondary to hemorrhoids and is on Plavix. Given no further rectal bleeding at this time, patient may resume Plavix at discharge given history of CVA. Patient was placed on home insulin regimen and blood sugar improved. Patient states she has not taken any of her home medications for the past 4 days due to stress. Strongly encouraged patient to follow prescribed regimen. Hemoglobin A1c 12.6%. Recommend repeating hemoglobin A1c by primary care physician. Other chronic medical conditions as noted above are stable at this time. Patient seen and examined prior to discharge. Heart rate regular rate and rhythm, no murmur. Lungs clear, diminished. Neuro grossly intact. Abdomen soft, nontender. Vital signs stable. Patient is stable for discharge home with the follow-up recommendations as noted above. This patient was seen by EMILIANA Taylor under the supervision of Dr. Saucedo. Discharge Diet: Low fat/ Low Cholesterol, Carb Control Diet Discharge Activity: Return to Normal Activity Call your doctor if you observe: Fever of 101 or Higher, Inability to have a bowel movement, Shortness of breath, Dizziness, Fainting spells, Chest pain, - - Continued rectal bleeding. Home Medications: Medications to take at Discharge Clopidogrel Bisulfate [Plavix] 75 mg PO DAILY 04/10/15 Isosorbide Mononitrate [Isosorbide Mononitrate ER] 30 mg PO DAILY 04/10/15 Insulin Lispro [Humalog] 25 unit SC TIDCM 02/15/16 Metformin HCl [Glucophage] 1,000 mg PO BIDCM 02/15/16 Empagliflozin [Jardiance] 25 mg PO DAILY 07/17/17 Ergocalciferol [Vitamin D] 50,000 unit PO QMONTH 07/17/17 Linagliptin [Tradjenta] 5 mg PO DAILY 07/17/17 Famotidine 40 mg PO DAILY 08/30/17 Paroxetine HCl [Paxil] 40 mg PO QHS 08/30/17 Valsartan/Hydrochlorothiazide [Valsartan-Hctz 320-25 mg Tab] 1 tab PO DAILY Atorvastatin Calcium 40 mg PO QHS 10/16/17 Insulin Glargine/Lixisenatide [Soliqua 100 Unit-33 Mcg/ml Pen] 30 unit SQ BID Latanoprost 1 drop EACH EYE QHS 10/16/17 Omeprazole 40 g PO DAILY 10/16/17 Primary Care Physician: Eulogio Alexis Chi, MD [Primary Care Provider] - Please follow up with your Primary Care Physician in: 1 Week Please Follow Up With: Toi Hunter MD When: 1-2 Weeks Disposition: Home Minutes spent on discharge:: 35 Patient Condition:: Stable Medical Necessity - Tobacco Use Smoking Status: Current every day smoker Meaningful Use Info Meaningful Use Diagnoses (Choose all that apply): None applicable <Sharron Saucedo E - Last Filed: 10/17/17 16:13> Discharge Date and Diagnosis - Secondary Discharge Diagnosis Chronic Problems ELENITA on CPAP (Chronic) COPD (chronic obstructive pulmonary disease) (Chronic) Peripheral neuropathy (Chronic) Esophageal reflux (Chronic) Depressive disorder (Chronic) Abdominal wound dehiscence (Chronic) 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) nonhealing MRSA diabetic ulcer abdominal wall Personal history of Methicillin resistant Staphylococcus aureus infection ( Chronic) Skin ulcer of abdominal wall with fat layer exposed (Chronic) Smoker (Chronic) Obesity (Chronic) Hypertension (Chronic) Diabetes type 2, uncontrolled (Chronic) Wound, surgical, nonhealing (Chronic) Hyperglycemia (Chronic) Morbid obesity with BMI of 40.0-44.9, adult (Chronic) Open abdominal wall wound (Chronic) painful insulin nodules abd wall (Chronic) late effect medical care with painful insulin nodules abdominal wall Hyperlipidemia (Chronic) MRSA (Chronic) MRSA anterior abdomen wall cellulitis (Chronic) Cerebrovascular disease (Chronic) Status post acute ischemic stroke No residual deficit Diabetes mellitus (Chronic) Hospital Course and Treatment Summary of Care Provided: Hospitalist note: Discharge summary above reviewed as well as physical examination and agree with above discharge plan. Patient seen and examined on the day of discharge and appeared to be stable to be discharged home. Patient was admitted because of lower abdominal pain and questionable rectal bleeding. She was found to have highly elevated blood sugar, hyperglycemia without evidence of acute DKA. This hyperglycemia is due to noncompliance. Patient admitted not taking her insulin for the last 4 days. Her blood sugar on admission was 735. Her serum bicarbonate was 26 and anion gap was 8. There was no evidence of acute diabetic ketoacidosis. Patient was treated with IV fluids and her home dosage of insulin and her blood sugar improved significantly. Her lactic acid was slightly elevated which is attributed to dehydration and hyperglycemia and it came down to normal upon administration of IV fluids. She was dehydrated, admission creatinine was 1.46 and with IV fluid therapy, creatinine came down to 0.81. CT scan abdomen and pelvis with oral contrast reviewed as above. Her vital signs remained stable. She complained of abdominal pain and cramping which is attributed to gastroenteritis. She had one episode of rectal bleeding according to the patient but her stool for occult blood was negative and her hemoglobin and hematocrit are stable. After treatment, patient has no more abdominal pain and his sugar stabilized. Patient discharged home on the same dosage and type of insulin that she has been taking for admission, highly recommended to be compliant with her insulin regimen, recommended to check blood sugar at least 3-4 times daily, follow-up with PCP in 1 week. . Minutes spent on discharge:: 26 Code Visit OBSV E&M: 40662 Observation care discharge
[2017-10-17 12:00] VITALS: BP 131/42; PULSE 82; RESP 18; TEMP 36.9; O2SAT 99
== END 2017-10-17 12:09 | disposition home or self-care (01) ==
LOC: ED 20:17 → MS2 21:09
PROVIDERS: Admitting Provider Internal Medicine; Emergency Provider Emergency Medicine; Family Provider Family Medicine Geriatric Medicine; PCP Family Medicine Geriatric Medicine; Visit Provider Hospitalist
DX: E11.65 Type 2 diabetes mellitus with hyperglycemia (principal); E87.2 Acidosis; G47.33 Obstructive sleep apnea (adult) (pediatric); J44.9 Chronic obstructive pulmonary disease, unspecified; E11.42 Type 2 diabetes mellitus with diabetic polyneuropathy; K21.9 Gastro-esophageal reflux disease without esophagitis; E86.0 Dehydration; E11.622 Type 2 diabetes mellitus with other skin ulcer; F32.9 Major depressive disorder, single episode, unspecified; L98.492 Non-pressure chronic ulcer of skin of other sites with fat layer exposed; I10 Essential (primary) hypertension; E78.5 Hyperlipidemia, unspecified; E66.9 Obesity, unspecified; Z71.3 Dietary counseling and surveillance; Z91.19 Patient's noncompliance with other medical treatment and regimen; Z79.899 Other long term (current) drug therapy; Z79.02 Long term (current) use of antithrombotics/antiplatelets; Z79.4 Long term (current) use of insulin; Z86.14 Personal history of Methicillin resistant Staphylococcus aureus infection; Z68.34 Body mass index [BMI] 34.0-34.9, adult; Z86.73 Personal history of transient ischemic attack (TIA), and cerebral infarction without residual deficits; K52.9 Noninfective gastroenteritis and colitis, unspecified
CPT/HCPCS: 36415; 74176; 80048; 80076; 82009; 82274; 82803; 82962; 83605; 83690; 85025; 85027; 85610; 86850; 86900; 93005; 96361; 96365; 96366; 96375; 99218; 99284; J7030; A4216; G0378; J2405

== ENCOUNTER → 2017-10-23 15:12 | Outpatient (CLI) | payer MEDICARE, SELFPAY ==
--- NOTE | 2017-10-23 15:15 | RAD_ITS ---
STUDY: X-RAY - ABDOMEN/PELVIS REASON FOR EXAM: Female, 71 years old. Constipation TECHNIQUE: Supine and upright views of the abdomen and pelvis were obtained. COMPARISON: CT abdomen and pelvis dated October 16, 2017 FINDINGS: The lung bases are not adequately visualized. There is an unremarkable bowel gas pattern. There is no demonstrated free abdominal air. There is no demonstrated abnormality of the major organs. Cholecystectomy clips are present. There are surgical clips in the pelvis bilaterally. A calyceal stone is again seen in the right kidney. The soft tissues are unremarkable. There are moderate degenerative changes in the visualized spine. There are mild degenerative changes in both hips. RAD/Abd Inc Decub and/or Erect IMPRESSION: No acute abnormalities are seen in the abdomen or pelvis. There is no bowel obstruction. There is no significant retained stool. Electronically Signed: Maria Alejandra Schneider MD at 0:11 EDT Tel Direct: [phone], Service support ,
[2017-10-23 16:21] LABS: Anion Gap 8 (5-15); BUN 27 mg/dL (7-18); BUN/Creat Ratio 21.4 RATIO (10-20); Calcium,Total 9.2 mg/dL (8.5-10.1); Chloride 105 mmol/L (98-107); Creatinine, Serum 1.26 mg/dL (0.55-1.02); EST Glomerular Filtration Rate 44 mL/min (>60); Est Glom Filt Rate - Afr Amer 54 mL/min (>60); Glucose 193 mg/dL (74-106); Potassium 4.3 mmol/L (3.5-5.1); Sodium Level 139 mmol/L (136-145)
== END ==
PROVIDERS: Family Provider Family Medicine Geriatric Medicine; PCP Family Medicine Geriatric Medicine; Visit Provider Family Medicine Geriatric Medicine
DX: I10 Essential (primary) hypertension (principal); K59.00 Constipation, unspecified
CPT/HCPCS: 36415; 74019; 80048

== ENCOUNTER → 2017-11-21 16:09 | Outpatient (CLI) | payer MEDICARE, SELFPAY | PROVIDERS: Family Provider Family Medicine Geriatric Medicine; PCP Family Medicine Geriatric Medicine; Visit Provider Family Medicine Geriatric Medicine | DX: N39.0 Urinary tract infection, site not specified (principal) | CPT/HCPCS: 36415; 87086; 87088 ==

== ENCOUNTER 2018-02-12 15:21 | Emergency (ER) | payer MEDICARE, SELFPAY ==
[2018-02-12 15:21] VITALS: BP 128/72; PULSE 102; RESP 20; TEMP 36.2; O2SAT 98; BMI 32.0
--- NOTE | 2018-02-12 15:58 | ED.VISSUMM ---
- ER Visit Summary Date of Service: 02/12/18 Chief Complaint: Abscess History of Present Illness: The patient is a 72 F who presents with multiple complaints. Patient states that her hands and feet have been locking up. She states Dr. Shaw usually gets her IV fluids for this because it is believed to be from dehydration. She does state that she is drinking quite a bit which is also been urinating frequently. She does state she was initially having dysuria, but continues to have frequency. She reports an abscess to the left labia that drained last night. She thinks she has another one along the right perineum that is now starting. She has not had fever or chills. She is diabetic but does not check her blood sugars. Physical Examination: Vital signs grossly unremarkable. She is afebrile. Head and neck examination is unremarkable. Heart is regular rate and rhythm. Lungs sounds are clear. Abdomen is soft with no focal tenderness. examination was recently drained abscess to the left labia majora. There is approximately 3 similar diameter area of induration. There is no cellulitis. No further abscesses noted on exam. Neuro exam reveals normal strength and sensation with full range of motion of all extremities. Test Results: CBC is normal. Chemistry studies significant for glucose of 326 and creatinine 1.37. Urinalysis does show large amount of glucose. No sign of acute infection. Emergency Department Course and Treatment: Patient was given a liter of IV fluids. Due to the muscle spasm she was given a single dose of Valium 5 mg p.o. here. Patient is treated with a course of clindamycin. Treatment Plan: [] Disposition: Discharge Impression: 1. Hyperglycemia 2. Cutaneous abscess This note was generated with [id number] dictation software. It may contain incorrect words, spelling, and punctuation that were not noted in review of the chart prior to signing ED Disposition - Plan for ED Patient: Disposition: Home or Assisted Living Chief Complaint: Abscess Instructions: ED Staph Infec Abx Tx Only Prescriptions: Clindamycin [Cleocin] 300 mg PO 4X/DAY #80 capsule Referrals: Eulogio Alexis Chi, MD [COURTESY STAFF PHYSICIAN] - 1 Week
[2018-02-12] MEDS: 0.9% Normal Saline 1,000 ML 999 ML IV (16:50)
[2018-02-12 16:56] LABS: Bacteria 0 SEEN /hpf (None Seen); Mucous, Urine 0 SEEN /hpf (<or=2+); Red Blood Cells-Urine 0 SEEN /hpf (0-5)
[2018-02-12 16:59] LABS: Color, Urine Yellow (Yellow); Glucose, Dipstick 1000 mg/dl (Normal); Ketone-Dipstick Negative (Negative); Leukocyte Esterase-Dipstick 25 /ul (Negative); Nitrite-Dipstick Negative (Negative); Occult Blood-Urine Negative /ul (Negative); Protein-Dipstick Negative (Negative); Urine Bilirubin Dipstick Negative (Negative); Urine Clarity Clear (Clear); Urine Urobilinogen Normal (Normal)
[2018-02-12 17:02] LABS: Absolute Lymphocyte Count 2.07 X10^3/ul (0.83-4.51); Absolute Neutrophil Count 7.3 X10^3/uL (2.0-7.7); Basophil# 0.06 X10^3/uL; Basophil% 0.6 % (0-1); Eosinophil# 0.15 X10^3/uL; Eosinophils% 1.4 % (0-5); Hematocrit 40.4 % (37-47); Hemoglobin 13.7 g/dl (12.0-15.0); Lymphocyte # 2.07 X10^3/ul (4.0); Mean Corp Hgb Conc 33.9 g/gl (32-36); Mean Corpuscular Hgb 31.7 pg (27.0-32.0); Mean Corpuscular Volume 93.5 fL (81-99); Mean Platelet Vol. 10.8 fl (6.2-12.0); Monocyte# 0.76 X10^3/uL; Monocyte% 7.3 % (0-10); Neutrophil # 7.28 X10^3/uL (2.7-7.7); Neutrophil % 70.3 % (47-70); POSITIVE COUNT NO; POSITIVE DIFFERENTIAL NO; POSITIVE MORPHOLOGY NO; Platelet Count 177 K/mm3 (150-450); RBC Distribution Width CV 12.2 % (11.6-14.6); RBC Distribution Width SD 41.4 fl (35.1-43.9); Red Blood Count 4.32 M/mm3 (4.2-5.4); White Blood Count 10.4 K/mm3 (4.4-11.0)
[2018-02-12 17:10] LABS: Squamous Epithelial Cells - UA 0-5 SEEN /hpf (5-10); White Blood Cells 0-5 SEEN /hpf (0-5)
[2018-02-12 17:24] LABS: Anion Gap 9 (5-15); BUN 17 mg/dL (7-18); BUN/Creat Ratio 12.4 RATIO (10-20); Calcium,Total 8.9 mg/dL (8.5-10.1); Chloride 99 mmol/L (98-107); Creatinine, Serum 1.37 mg/dL (0.55-1.02); EST Glomerular Filtration Rate 40 mL/min (>60); Est Glom Filt Rate - Afr Amer 49 mL/min (>60); Estimated Creatinine Clearance 29.36 ml/min; Glucose 326 mg/dL (74-106); Potassium 3.7 mmol/L (3.5-5.1); Sodium Level 136 mmol/L (136-145)
[2018-02-12] MEDS: diazePAM 5 MG Tablet 2.5 MG PO (17:41)
[2018-02-12 17:46] VITALS: BP 126/76; PULSE 96; RESP 16; O2SAT 98
--- NOTE | 2018-02-12 18:44 | ED.DEP ---
ED Disposition - Plan for ED Patient: Disposition: Home or Assisted Living Chief Complaint: Abscess Instructions: ED Staph Infec Abx Tx Only Prescriptions: Clindamycin [Cleocin] 300 mg PO 4X/DAY #80 capsule Referrals: Eulogio Alexis Chi, MD [COURTESY STAFF PHYSICIAN] - 1 Week
[2018-02-12 18:48] VITALS: BP 132/82; PULSE 78; RESP 16; O2SAT 98
== END 2018-02-12 18:53 | disposition home or self-care (01) ==
PROVIDERS: Emergency Provider Emergency Medicine
DX: E11.65 Type 2 diabetes mellitus with hyperglycemia (principal); N76.4 Abscess of vulva; M62.838 Other muscle spasm; J44.9 Chronic obstructive pulmonary disease, unspecified; I10 Essential (primary) hypertension; G47.33 Obstructive sleep apnea (adult) (pediatric); K21.9 Gastro-esophageal reflux disease without esophagitis; F32.9 Major depressive disorder, single episode, unspecified; Z72.0 Tobacco use; Z79.02 Long term (current) use of antithrombotics/antiplatelets; Z79.4 Long term (current) use of insulin; Z79.899 Other long term (current) drug therapy; Z86.14 Personal history of Methicillin resistant Staphylococcus aureus infection
CPT/HCPCS: 80048; 81001; 85025; 99285; J7030; A4216

== ENCOUNTER 2018-04-24 11:13 | Emergency (ER) | payer MEDICARE, SELFPAY ==
[2018-04-24] VITALS (7 sets, daily range): BP systolic 140–159; BP diastolic 61–101; PULSE 95–101; RESP 14–19; TEMP 36.7–36.9; O2SAT 90–99; BMI 30.4
--- NOTE | 2018-04-24 11:22 | CT_ITS ---
STUDY: CT CERVICAL SPINE WITHOUT CONTRAST REASON FOR EXAM: Female, 72 years old. Trauma. RADIATION DOSAGE (If Supplied By Facility): CTDIvol = ( 15.62 ) mGy, DLP = ( 297.75 ) mGycm TECHNIQUE: High resolution transaxial imaging was performed without contrast material. Sagittal and coronal images were reconstructed. Individualized dose optimization techniques were used for this CT. COMPARISON: None FINDINGS: Normal craniovertebral junction. Normal predental space. Normal lateral atlantoaxial articulations. Faint chondrocalcinosis behind the odontoid process is suggestive of calcium pyrophosphate deposition disease. Normal odontoid process. Normal cervical lordosis. Normal vertebral bodies and posterior osseous elements. C2-3: Normal endplates. Normal disc height and morphology. Normal central canal and intervertebral neuroforamina. C3-4: Normal endplates. Normal disc height and morphology. Normal central canal and intervertebral neuroforamina. C4-5: Normal endplates. Normal disc height and morphology. Normal central canal and intervertebral neuroforamina. C5-6: Normal endplates. Normal disc height and morphology. Normal central canal and intervertebral neuroforamina. C6-7: Normal endplates. Normal disc height and morphology. Normal central canal and intervertebral neuroforamina. C7-T1: Normal endplates. Normal disc height and morphology. Normal central canal and intervertebral neuroforamina. Normal visualized soft tissue structures. CT/Spine Cervical without Contras IMPRESSION: No acute fracture or malalignment of the cervical spine and the craniocervical junction. Electronically Signed: Ronni Little MD at 12:25 EDT , Service support ,
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
[2018-04-24 11:31] LABS: Absolute Lymphocyte Count 1.47 X10^3/ul (0.83-4.51); Absolute Neutrophil Count 4.9 X10^3/uL (2.0-7.7); Basophil# 0.03 X10^3/uL; Basophil% 0.4 % (0-1); Eosinophil# 0.08 X10^3/uL; Eosinophils% 1.1 % (0-5); Hematocrit 40.5 % (37-47); Lymphocyte # 1.47 X10^3/ul (4.0); Lymphocyte % 20.6 % (19-41); Mean Corp Hgb Conc 32.1 g/gl (32-36); Mean Corpuscular Hgb 31.3 pg (27.0-32.0); Mean Corpuscular Volume 97.4 fL (81-99); Mean Platelet Vol. 10.6 fl (6.2-12.0); Monocyte# 0.65 X10^3/uL; Monocyte% 9.1 % (0-10); Neutrophil # 4.89 X10^3/uL (2.7-7.7); Neutrophil % 68.7 % (47-70); Platelet Count 172 K/mm3 (150-450); RBC Distribution Width CV 13.8 % (11.6-14.6); RBC Distribution Width SD 48.8 fl (35.1-43.9); Red Blood Count 4.16 M/mm3 (4.2-5.4); White Blood Count 7.1 K/mm3 (4.4-11.0)
[2018-04-24 11:32] LABS: POSITIVE COUNT NO; POSITIVE DIFFERENTIAL NO; POSITIVE MORPHOLOGY NO
[2018-04-24 11:44] LABS: Anion Gap 10 (5-15); BUN 14 mg/dL (7-18); Calcium,Total 8.9 mg/dL (8.5-10.1); Chloride 102 mmol/L (98-107); Creatinine, Serum 1.27 mg/dL (0.55-1.02); EST Glomerular Filtration Rate 44 mL/min (>60); Est Glom Filt Rate - Afr Amer 53 mL/min (>60); Glucose 409 mg/dL (74-106); Potassium 4.1 mmol/L (3.5-5.1); Sodium Level 137 mmol/L (136-145)
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
[2018-04-24] MEDS: Diphth,Pertuss(Acell),Tet Vac 0.5 ML Vial IM (12:08)
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
== END 2018-04-24 13:45 | disposition short-term general hospital (02) ==
LOC: ED 12:30
PROVIDERS: Emergency Provider Emergency Medicine
DX: S06.0X9A Concussion with loss of consciousness of unspecified duration, initial encounter (principal); S41.112A Laceration without foreign body of left upper arm, initial encounter; S81.012A Laceration without foreign body, left knee, initial encounter; S81.812A Laceration without foreign body, left lower leg, initial encounter; S20.211A Contusion of right front wall of thorax, initial encounter; S20.01XA Contusion of right breast, initial encounter; V49.40XA Driver injured in collision with unspecified motor vehicles in traffic accident, initial encounter; Y93.9 Activity, unspecified; Y92.9 Unspecified place or not applicable; Y99.9 Unspecified external cause status; Z23 Encounter for immunization; E11.9 Type 2 diabetes mellitus without complications; I10 Essential (primary) hypertension; Z79.02 Long term (current) use of antithrombotics/antiplatelets; Z79.4 Long term (current) use of insulin; Z79.899 Other long term (current) drug therapy
CPT/HCPCS: 12004; 70450; 71260; 72125; 73080; 73130; 73560; 73590; 74177; 80048; 85025; 86850; 86900; 90715; 99285; Q9967; A4216

== ENCOUNTER 2018-05-03 22:15 | Inpatient (IN) | payer MEDICARE, SELFPAY ==
--- NOTE | 2018-05-03 22:15 | NURSING ---
Patient arrived to the unit via wheelchair from [facility].
[2018-05-03 22:22] VITALS: BP 139/56; PULSE 64; RESP 18; TEMP 36.2; O2SAT 97; BMI 37.2
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
[2018-05-03 22:51] LABS: Bedside Glucose 186 mg/dL (70-110)
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
[2018-05-03 23:25] VITALS: BMI 37.2
[2018-05-03] MEDS: Latanoprost 0.005% 1 Bottle 1 DRP OPHTHALMIC (23:31)
--- NOTE | 2018-05-04 00:34 | NURSING ---
Discussed code status with patient, patient wishes to be a full code
[2018-05-04 03:36] LABS: Bedside Glucose 169 mg/dL (70-110)
[2018-05-04] MEDS: Glucerna Shake 120 ML LIQUID PO ×4 (05:29→20:55)
[2018-05-04] MEDS: Fluticasone 0.05% 1 SPRAY NASAL.SRY 2 SPRAY NASAL (05:34)
[2018-05-04] MEDS: Loratadine 10 MG Tablet PO (05:36)
[2018-05-04] MEDS: LINAGLIPTIN 5 MG TABLET PO (05:36)
[2018-05-04] MEDS: Clindamycin HCl 150 MG Capsule 300 MG PO ×3 (05:36→20:56)
[2018-05-04] MEDS: Isosorbide Mononitrate 30 MG Tablet PO (05:37)
[2018-05-04] MEDS: Pantoprazole Sodium 40 MG Tablet PO (05:37)
[2018-05-04] MEDS: BACITRACIN/POLYMYXIN B 15 GM Tube 1 APPLIC TOPICAL (05:37)
[2018-05-04] MEDS: Nystatin Powder 15gm Bottle 1 APPLIC TOPICAL ×2 (05:43→16:57)
[2018-05-04 05:49] LABS: Absolute Lymphocyte Count 1.91 X10^3/ul (0.83-4.51); Absolute Neutrophil Count 3.4 X10^3/uL (2.0-7.7); Basophil# 0.03 X10^3/uL; Basophil% 0.5 % (0-1); Eosinophil# 0.14 X10^3/uL; Eosinophils% 2.3 % (0-5); Hematocrit 34.1 % (37-47); Hemoglobin 11.2 g/dl (12.0-15.0); Lymphocyte # 1.91 X10^3/ul (4.0); Lymphocyte % 31.6 % (19-41); Mean Corp Hgb Conc 32.8 g/gl (32-36); Mean Corpuscular Hgb 31.6 pg (27.0-32.0); Mean Corpuscular Volume 96.3 fL (81-99); Mean Platelet Vol. 10.7 fl (6.2-12.0); Monocyte# 0.59 X10^3/uL; Monocyte% 9.8 % (0-10); Neutrophil # 3.36 X10^3/uL (2.7-7.7); Neutrophil % 55.6 % (47-70); POSITIVE COUNT NO; POSITIVE DIFFERENTIAL NO; POSITIVE MORPHOLOGY NO; Platelet Count 177 K/mm3 (150-450); RBC Distribution Width CV 12.8 % (11.6-14.6); Red Blood Count 3.54 M/mm3 (4.2-5.4)
[2018-05-04 06:11] LABS: Anion Gap 6 (5-15); BUN 28 mg/dL (7-18); BUN/Creat Ratio 19.6 RATIO (10-20); Calcium,Total 8.5 mg/dL (8.5-10.1); Chloride 103 mmol/L (98-107); Creatinine, Serum 1.43 mg/dL (0.55-1.02); EST Glomerular Filtration Rate 38 mL/min (>60); Est Glom Filt Rate - Afr Amer 46 mL/min (>60); Estimated Creatinine Clearance 26.83 ml/min; Glucose 151 mg/dL (74-106); Potassium 5.2 mmol/L (3.5-5.1); Sodium Level 136 mmol/L (136-145)
[2018-05-04 07:06] LABS: Bedside Glucose 185 mg/dL (70-110)
[2018-05-04] MEDS: Insulin Lispro 100 UNIT/ML INSULN.PEN SC (08:32)
[2018-05-04] MEDS: Insulin Lispro 100 UNIT/ML INSULN.PEN 8 UNIT SC ×3 (08:32→16:58)
[2018-05-04] MEDS: Gabapentin 100 MG Capsule 200 MG PO ×2 (08:35→16:57)
[2018-05-04 11:55] LABS: Bedside Glucose 198 mg/dL (70-110)
--- NOTE | 2018-05-04 15:14 | NURSING ---
wound photo: left leg
--- NOTE | 2018-05-04 15:52 | CASEMGMT ---
Reviewed and approved social work student attached documentation. Note: Resident PASSPORT case manger is Tiffany. [phone] AREN Anthony, INFRASTRUCTURE DESIGN ENGINEER
[2018-05-04 16:00] VITALS: BP 116/42; PULSE 70; RESP 18; TEMP 36.7; O2SAT 97
[2018-05-04] MEDS: Tuberculin,Purif.prot.deriv. 50 TU/ML Vial 5 ML ID (16:58)
[2018-05-04 17:11] LABS: Bedside Glucose 225 mg/dL (70-110)
[2018-05-04] MEDS: Latanoprost 0.005% 1 Bottle 1 DRP OPHTHALMIC (20:49)
[2018-05-04] MEDS: Atorvastatin Calcium 40 MG Tablet PO (20:56)
[2018-05-04 21:04] VITALS: PULSE 70; RESP 16; O2SAT 98
[2018-05-04 21:56] LABS: Bedside Glucose 230 mg/dL (70-110)
[2018-05-04] MEDS: Sodium Polystyrene Sulfonate 15 GM/60 ML UDC PO (23:57)
[2018-05-05] MEDS: Acetaminophen 500 MG Tablet 1000 MG PO (06:16)
[2018-05-05] MEDS: Pantoprazole Sodium 40 MG Tablet PO (06:17)
[2018-05-05] MEDS: Loratadine 10 MG Tablet PO (06:18)
[2018-05-05] MEDS: Clindamycin HCl 150 MG Capsule 300 MG PO ×3 (06:18→20:41)
[2018-05-05] MEDS: Senna/Docusate Sodium 1 Tablet PO (06:18)
[2018-05-05] MEDS: Glucerna Shake 120 ML LIQUID PO ×2 (06:18→11:25)
[2018-05-05] MEDS: Isosorbide Mononitrate 30 MG Tablet PO (06:18)
[2018-05-05] MEDS: Nystatin Powder 15gm Bottle 1 APPLIC TOPICAL ×2 (06:21→20:39)
[2018-05-05] MEDS: Fluticasone 0.05% 1 SPRAY NASAL.SRY 2 SPRAY NASAL (06:21)
[2018-05-05] MEDS: Enoxaparin 30 MG/0.3 ML Syringe SC (06:22)
[2018-05-05 06:45] LABS: Bedside Glucose 233 mg/dL (70-110)
[2018-05-05] MEDS: Gabapentin 100 MG Capsule 200 MG PO ×2 (08:07→18:02)
[2018-05-05] MEDS: Insulin Lispro 100 UNIT/ML INSULN.PEN 8 UNIT SC ×3 (08:07→18:01)
[2018-05-05 11:00] VITALS: PULSE 68; RESP 18; O2SAT 97
[2018-05-05 11:55] LABS: Bedside Glucose 184 mg/dL (70-110)
--- NOTE | 2018-05-05 13:39 | NURSING ---
DRESSING CHANGED TO LEFT LEG BY MARILEE GUTHRIE AT 8AM.
[2018-05-05 15:47] VITALS: BP 125/62; PULSE 70; RESP 16; TEMP 35.8; O2SAT 97
[2018-05-05 17:00] LABS: Bedside Glucose 132 mg/dL (70-110)
[2018-05-05] MEDS: Atorvastatin Calcium 40 MG Tablet PO (20:37)
[2018-05-05] MEDS: Latanoprost 0.005% 1 Bottle 1 DRP OPHTHALMIC (20:39)
[2018-05-05 21:25] LABS: Bedside Glucose 207 mg/dL (70-110)
[2018-05-06] MEDS: Acetaminophen 500 MG Tablet 1000 MG PO (00:29)
--- NOTE | 2018-05-06 00:41 | NURSING ---
Pt requested prn tylenol d/t pain in L leg and headache rated pain level 9 out of 10. Pt requested dressing to L leg change at this time. This nurse cleansed sutures on L leg area, pat dry, applied dressing, and wrapped with kerlix. Pt was tearful while cleansing area reddness to area, and moderate serous drainage to ABD. Communicated with RN's.
[2018-05-06] MEDS: Loratadine 10 MG Tablet PO (05:46)
[2018-05-06] MEDS: Clindamycin HCl 150 MG Capsule 300 MG PO ×3 (05:46→21:00)
[2018-05-06] MEDS: Isosorbide Mononitrate 30 MG Tablet PO (05:47)
[2018-05-06] MEDS: Enoxaparin 30 MG/0.3 ML Syringe SC (05:47)
[2018-05-06] MEDS: Fluticasone 0.05% 1 SPRAY NASAL.SRY 2 SPRAY NASAL (05:47)
[2018-05-06] MEDS: Pantoprazole Sodium 40 MG Tablet PO (05:47)
[2018-05-06] MEDS: Nystatin Powder 15gm Bottle 1 APPLIC TOPICAL ×2 (05:49→17:02)
[2018-05-06] MEDS: Senna/Docusate Sodium 1 Tablet PO (05:49)
[2018-05-06 05:57] VITALS: PULSE 65; RESP 16; O2SAT 95
[2018-05-06 07:06] LABS: Bedside Glucose 143 mg/dL (70-110)
[2018-05-06 07:14] LABS: Anion Gap 7 (5-15); BUN 25 mg/dL (7-18); BUN/Creat Ratio 25.2 RATIO (10-20); Calcium,Total 8.4 mg/dL (8.5-10.1); Chloride 109 mmol/L (98-107); Creatinine, Serum 0.99 mg/dL (0.55-1.02); EST Glomerular Filtration Rate 58 mL/min (>60); Est Glom Filt Rate - Afr Amer 71 mL/min (>60); Estimated Creatinine Clearance 38.76 ml/min; Glucose 147 mg/dL (74-106); Potassium 4.2 mmol/L (3.5-5.1); Sodium Level 141 mmol/L (136-145)
[2018-05-06] MEDS: Insulin Lispro 100 UNIT/ML INSULN.PEN 8 UNIT SC ×3 (07:43→17:39)
[2018-05-06] MEDS: Gabapentin 100 MG Capsule 200 MG PO ×2 (07:43→16:38)
[2018-05-06 11:55] LABS: Bedside Glucose 141 mg/dL (70-110)
[2018-05-06 16:00] VITALS: BP 133/48; PULSE 64; RESP 16; TEMP 36.5; O2SAT 98
[2018-05-06] MEDS: Doxycycline 100 MG CAPSULE PO (17:02)
[2018-05-06 17:06] LABS: Bedside Glucose 227 mg/dL (70-110)
[2018-05-06] MEDS: Atorvastatin Calcium 40 MG Tablet PO (21:00)
[2018-05-06] MEDS: Latanoprost 0.005% 1 Bottle 1 DRP OPHTHALMIC (21:00)
[2018-05-06 21:25] LABS: Bedside Glucose 276 mg/dL (70-110)
[2018-05-07] MEDS: Clindamycin HCl 150 MG Capsule 300 MG PO ×3 (06:16→21:49)
[2018-05-07] MEDS: Pantoprazole Sodium 40 MG Tablet PO (06:17)
[2018-05-07] MEDS: Loratadine 10 MG Tablet PO (06:17)
[2018-05-07] MEDS: Doxycycline 100 MG CAPSULE PO ×2 (06:17→17:17)
[2018-05-07] MEDS: Senna/Docusate Sodium 1 Tablet PO (06:17)
[2018-05-07] MEDS: Isosorbide Mononitrate 30 MG Tablet PO (06:17)
[2018-05-07] MEDS: Enoxaparin 30 MG/0.3 ML Syringe SC (06:18)
[2018-05-07] MEDS: Fluticasone 0.05% 1 SPRAY NASAL.SRY 2 SPRAY NASAL (06:22)
[2018-05-07] MEDS: Nystatin Powder 15gm Bottle 1 APPLIC TOPICAL ×2 (06:23→17:16)
[2018-05-07 06:51] LABS: Bedside Glucose 205 mg/dL (70-110)
[2018-05-07] MEDS: Insulin Lispro 100 UNIT/ML INSULN.PEN 8 UNIT SC ×3 (08:36→17:17)
[2018-05-07] MEDS: Gabapentin 100 MG Capsule 200 MG PO ×2 (08:36→17:17)
[2018-05-07 10:00] VITALS: PULSE 66; RESP 16; O2SAT 95
[2018-05-07 11:15] LABS: Bedside Glucose 188 mg/dL (70-110)
[2018-05-07 16:00] VITALS: BP 121/66; PULSE 66; RESP 18; TEMP 36.4; O2SAT 97
[2018-05-07 16:50] LABS: Bedside Glucose 204 mg/dL (70-110)
[2018-05-07 21:41] LABS: Bedside Glucose 253 mg/dL (70-110)
[2018-05-07] MEDS: Latanoprost 0.005% 1 Bottle 1 DRP OPHTHALMIC (21:45)
[2018-05-07] MEDS: Atorvastatin Calcium 40 MG Tablet PO (21:49)
[2018-05-08] MEDS: Fluticasone 0.05% 1 SPRAY NASAL.SRY 2 SPRAY NASAL (05:53)
[2018-05-08] MEDS: Enoxaparin 30 MG/0.3 ML Syringe SC (05:54)
[2018-05-08] MEDS: Clindamycin HCl 150 MG Capsule 300 MG PO ×3 (05:54→19:52)
[2018-05-08] MEDS: Isosorbide Mononitrate 30 MG Tablet PO (05:55)
[2018-05-08] MEDS: Nystatin Powder 15gm Bottle 1 APPLIC TOPICAL ×2 (05:55→17:43)
[2018-05-08] MEDS: Doxycycline 100 MG CAPSULE PO ×2 (05:55→17:41)
[2018-05-08] MEDS: Loratadine 10 MG Tablet PO (05:55)
[2018-05-08] MEDS: Pantoprazole Sodium 40 MG Tablet PO (05:55)
[2018-05-08 06:56] LABS: Bedside Glucose 170 mg/dL (70-110)
[2018-05-08] MEDS: Gabapentin 100 MG Capsule 200 MG PO ×2 (08:32→17:41)
[2018-05-08] MEDS: Insulin Lispro 100 UNIT/ML INSULN.PEN 8 UNIT SC ×3 (08:32→17:41)
[2018-05-08] MEDS: Acetaminophen 500 MG Tablet 1000 MG PO (11:02)
[2018-05-08 11:15] LABS: Bedside Glucose 210 mg/dL (70-110)
[2018-05-08] MEDS: oxyCODONE 5 MG Tablet PO ×2 (11:27→19:53)
[2018-05-08 12:52] VITALS: PULSE 71; O2SAT 98
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
[2018-05-08 16:00] VITALS: BP 150/68; PULSE 76; RESP 18; TEMP 36.6; O2SAT 94
[2018-05-08 17:10] LABS: Bedside Glucose 134 mg/dL (70-110)
--- NOTE | 2018-05-08 18:30 | NURSING ---
Addendum entered by Madelaine Culver 05/08/18 18:58: Dr Alexis notified, new order to apply steristrips, clean well, cover with drsg and elevate. wound unapproximated, bruise noted approx quarter size ecchymosis noted to medial skin flap. pt denies bumping it, she states she was just sitting and felt it pop open. 10 steristrips applied, after cleansing and covered with ABD and wrapped with gauze. Dr Alexis to assess in AM Original Note: This nurse called into residents room. Resident upset and states her wound had popped open. She states she felt a stinging in her wound, pulled her pant leg up, and her wound was open and bleeding. She had unwrapped the dressing and was holding the dressing in her hand. Madelaine, construction supervisor/carpenter made aware.
[2018-05-08] MEDS: Atorvastatin Calcium 40 MG Tablet PO (19:52)
[2018-05-08] MEDS: Latanoprost 0.005% 1 Bottle 1 DRP OPHTHALMIC (19:52)
[2018-05-08 21:50] LABS: Bedside Glucose 106 mg/dL (70-110)
[2018-05-09] MEDS: Acetaminophen 500 MG Tablet 1000 MG PO ×2 (03:52→18:06)
[2018-05-09] MEDS: Fluticasone 0.05% 1 SPRAY NASAL.SRY 2 SPRAY NASAL (05:20)
[2018-05-09] MEDS: Loratadine 10 MG Tablet PO (05:21)
[2018-05-09] MEDS: Nystatin Powder 15gm Bottle 1 APPLIC TOPICAL ×2 (05:21→18:05)
[2018-05-09] MEDS: Isosorbide Mononitrate 30 MG Tablet PO (05:21)
[2018-05-09] MEDS: Pantoprazole Sodium 40 MG Tablet PO (05:21)
[2018-05-09] MEDS: Doxycycline 100 MG CAPSULE PO ×2 (05:21→18:04)
[2018-05-09] MEDS: Clindamycin HCl 150 MG Capsule 300 MG PO ×3 (05:22→21:42)
[2018-05-09] MEDS: Enoxaparin 30 MG/0.3 ML Syringe SC (05:23)
[2018-05-09 06:45] LABS: Bedside Glucose 251 mg/dL (70-110)
[2018-05-09] MEDS: Insulin Lispro 100 UNIT/ML INSULN.PEN 8 UNIT SC ×3 (08:55→18:04)
[2018-05-09] MEDS: Gabapentin 100 MG Capsule 200 MG PO ×2 (08:55→14:08)
--- NOTE | 2018-05-09 09:14 | CASEMGMT ---
Plan of care meeting held. Resident present as well as resident family. No discharge date set at this time. Resident to continue with further care and treatment on the Transitional Care Unit. Resident plans to discharge to home alone at time of discharge with family for support. Currently recommendation would be for resident to have home health [facility] at time of discharge. Support given. Will continue to follow. AREN Anthony, AUDITING SPECIALIST
[2018-05-09 12:06] LABS: Bedside Glucose 109 mg/dL (70-110)
[2018-05-09 16:00] VITALS: BP 145/54; PULSE 74; RESP 16; TEMP 36.7; O2SAT 96
[2018-05-09 16:50] LABS: Bedside Glucose 133 mg/dL (70-110)
[2018-05-09] MEDS: oxyCODONE 5 MG Tablet PO ×2 (18:05→22:24)
[2018-05-09 21:16] LABS: Bedside Glucose 169 mg/dL (70-110)
[2018-05-09 21:30] VITALS: PULSE 78; RESP 16; O2SAT 93
[2018-05-09 21:38] VITALS: BP 139/62; PULSE 74; RESP 16; O2SAT 97
[2018-05-09] MEDS: Latanoprost 0.005% 1 Bottle 1 DRP OPHTHALMIC (21:42)
[2018-05-09] MEDS: Atorvastatin Calcium 40 MG Tablet PO (21:42)
[2018-05-10] MEDS: Senna/Docusate Sodium 1 Tablet PO (06:32)
[2018-05-10] MEDS: Fluticasone 0.05% 1 SPRAY NASAL.SRY 2 SPRAY NASAL (06:32)
[2018-05-10] MEDS: Loratadine 10 MG Tablet PO (06:32)
[2018-05-10] MEDS: Pantoprazole Sodium 40 MG Tablet PO (06:32)
[2018-05-10] MEDS: Doxycycline 100 MG CAPSULE PO ×2 (06:32→17:41)
[2018-05-10] MEDS: Isosorbide Mononitrate 30 MG Tablet PO (06:32)
[2018-05-10] MEDS: Enoxaparin 30 MG/0.3 ML Syringe SC (06:32)
[2018-05-10] MEDS: Clindamycin HCl 150 MG Capsule 300 MG PO ×3 (06:33→21:22)
[2018-05-10] MEDS: Acetaminophen 500 MG Tablet 1000 MG PO (06:39)
[2018-05-10] MEDS: Nystatin Powder 15gm Bottle 1 APPLIC TOPICAL ×2 (06:49→17:43)
[2018-05-10 06:51] LABS: Bedside Glucose 165 mg/dL (70-110)
[2018-05-10] MEDS: Insulin Lispro 100 UNIT/ML INSULN.PEN 8 UNIT SC ×3 (08:34→17:41)
[2018-05-10] MEDS: Gabapentin 100 MG Capsule 200 MG PO ×2 (08:35→17:40)
[2018-05-10 10:00] VITALS: PULSE 72; RESP 18; O2SAT 96
--- NOTE | 2018-05-10 11:18 | CASEMGMT ---
Insurance Clinical information faxed, pending continued stay approval at this time. Auth#[id number] AREN Anthony, WINDOW MACHINE OPERATOR
[2018-05-10 11:21] LABS: Bedside Glucose 179 mg/dL (70-110)
--- NOTE | 2018-05-10 15:05 | CASEMGMT ---
Brief interview for mental status (BIMS) and resident mood interview (PHQ-9) completed at this time. BIMS score 15/15. PHQ-9 score
[2018-05-10 16:00] VITALS: BP 131/61; PULSE 78; RESP 20; TEMP 36.9; O2SAT 96
[2018-05-10 17:06] LABS: Bedside Glucose 307 mg/dL (70-110)
[2018-05-10 21:16] LABS: Bedside Glucose 205 mg/dL (70-110)
[2018-05-10] MEDS: Latanoprost 0.005% 1 Bottle 1 DRP OPHTHALMIC (21:23)
[2018-05-10] MEDS: Atorvastatin Calcium 40 MG Tablet PO (21:23)
[2018-05-11] MEDS: Acetaminophen 500 MG Tablet 1000 MG PO (03:18)
[2018-05-11] MEDS: Fluticasone 0.05% 1 SPRAY NASAL.SRY 2 SPRAY NASAL (05:29)
[2018-05-11] MEDS: Clindamycin HCl 150 MG Capsule 300 MG PO ×3 (05:30→21:48)
[2018-05-11] MEDS: Doxycycline 100 MG CAPSULE PO ×2 (05:30→17:04)
[2018-05-11] MEDS: Senna/Docusate Sodium 1 Tablet PO ×2 (05:30→17:04)
[2018-05-11] MEDS: Pantoprazole Sodium 40 MG Tablet PO (05:30)
[2018-05-11] MEDS: Isosorbide Mononitrate 30 MG Tablet PO (05:30)
[2018-05-11] MEDS: Nystatin Powder 15gm Bottle 1 APPLIC TOPICAL ×2 (05:31→17:04)
[2018-05-11] MEDS: Enoxaparin 30 MG/0.3 ML Syringe SC (05:31)
[2018-05-11] MEDS: Loratadine 10 MG Tablet PO (05:34)
[2018-05-11 05:54] LABS: Absolute Lymphocyte Count 2.38 X10^3/ul (0.83-4.51); Absolute Neutrophil Count 3.3 X10^3/uL (2.0-7.7); Basophil# 0.06 X10^3/uL; Basophil% 0.9 % (0-1); Eosinophil# 0.23 X10^3/uL; Eosinophils% 3.6 % (0-5); Hematocrit 32.5 % (37-47); Hemoglobin 10.6 g/dl (12.0-15.0); Lymphocyte # 2.38 X10^3/ul (4.0); Lymphocyte % 37.1 % (19-41); Mean Corp Hgb Conc 32.6 g/gl (32-36); Mean Corpuscular Volume 98.2 fL (81-99); Mean Platelet Vol. 10.7 fl (6.2-12.0); Monocyte# 0.42 X10^3/uL; Monocyte% 6.6 % (0-10); Neutrophil # 3.32 X10^3/uL (2.7-7.7); Neutrophil % 51.8 % (47-70); Platelet Count 178 K/mm3 (150-450); RBC Distribution Width CV 12.9 % (11.6-14.6); RBC Distribution Width SD 44.7 fl (35.1-43.9); Red Blood Count 3.31 M/mm3 (4.2-5.4); White Blood Count 6.4 K/mm3 (4.4-11.0)
[2018-05-11 05:55] LABS: POSITIVE COUNT NO; POSITIVE DIFFERENTIAL NO; POSITIVE MORPHOLOGY NO
[2018-05-11 06:16] LABS: Anion Gap 8 (5-15); BUN 32 mg/dL (7-18); BUN/Creat Ratio 35.4 RATIO (10-20); Calcium,Total 8.4 mg/dL (8.5-10.1); Chloride 108 mmol/L (98-107); EST Glomerular Filtration Rate 65 mL/min (>60); Est Glom Filt Rate - Afr Amer 79 mL/min (>60); Estimated Creatinine Clearance 42.64 ml/min; Glucose 223 mg/dL (74-106); Potassium 4.2 mmol/L (3.5-5.1); Sodium Level 142 mmol/L (136-145)
[2018-05-11 08:36] LABS: Bedside Glucose 225 mg/dL (70-110)
[2018-05-11] MEDS: Gabapentin 100 MG Capsule 200 MG PO ×2 (09:27→17:04)
[2018-05-11] MEDS: Insulin Lispro 100 UNIT/ML INSULN.PEN 8 UNIT SC ×3 (09:28→17:06)
[2018-05-11 10:00] VITALS: PULSE 84; RESP 18; O2SAT 94
[2018-05-11 12:30] LABS: Bedside Glucose 161 mg/dL (70-110)
[2018-05-11] MEDS: Tuberculin,Purif.prot.deriv. 50 TU/ML Vial 5 ML ID (12:44)
[2018-05-11 16:00] VITALS: BP 150/64; PULSE 80; RESP 20; TEMP 36.1; O2SAT 98
--- NOTE | 2018-05-11 16:32 | CASEMGMT ---
Social Work: Received TC from Diamante at [facility]. Diamante states that patient has been denied continued stay with LCD being Monday05/14/18 and anticipated D/C being Monday05/15/18. Spoke with patient and daughter in room. Both aware of anticipated D/C being Monday05/15/18 and agreeable to this plan. Patient requesting to be discharged today but now agrees to D/C on Monday with [facility]. Patient choosing [facility] for group home care. Notice of Medicare Non Coverage signed this day. TC to [facility] in [facility]. Referral made for home nursing. [facility] states start of care cannot be until Monday. [facility] aware that patient will be discharged on Monday. SW to follow to assist as needed with D/C planning.
--- NOTE | 2018-05-11 16:58 | CASEMGMT ---
Insurance: Patient denied continued stay. LCD is Monday05/14/18 with an anticipated D/C being Monday05/15/18.
[2018-05-11 17:16] LABS: Bedside Glucose 126 mg/dL (70-110)
[2018-05-11 21:31] LABS: Bedside Glucose 214 mg/dL (70-110)
[2018-05-11] MEDS: Latanoprost 0.005% 1 Bottle 1 DRP OPHTHALMIC (21:48)
[2018-05-11] MEDS: Atorvastatin Calcium 40 MG Tablet PO (21:48)
[2018-05-12] MEDS: Isosorbide Mononitrate 30 MG Tablet PO (05:30)
[2018-05-12] MEDS: Clindamycin HCl 150 MG Capsule 300 MG PO ×3 (05:30→22:17)
[2018-05-12] MEDS: Fluticasone 0.05% 1 SPRAY NASAL.SRY 2 SPRAY NASAL (05:31)
[2018-05-12] MEDS: Doxycycline 100 MG CAPSULE PO ×2 (05:31→18:08)
[2018-05-12] MEDS: Loratadine 10 MG Tablet PO (05:31)
[2018-05-12] MEDS: Nystatin Powder 15gm Bottle 1 APPLIC TOPICAL ×2 (05:32→18:17)
[2018-05-12] MEDS: Pantoprazole Sodium 40 MG Tablet PO (05:33)
[2018-05-12] MEDS: Senna/Docusate Sodium 1 Tablet PO ×2 (05:34→18:09)
[2018-05-12 06:51] LABS: Bedside Glucose 221 mg/dL (70-110)
[2018-05-12] MEDS: Insulin Lispro 100 UNIT/ML INSULN.PEN 8 UNIT SC ×3 (08:19→18:13)
[2018-05-12] MEDS: Gabapentin 100 MG Capsule 200 MG PO ×2 (08:22→18:08)
[2018-05-12 10:00] VITALS: PULSE 77; O2SAT 97
[2018-05-12 11:10] LABS: Bedside Glucose 219 mg/dL (70-110)
[2018-05-12 16:00] VITALS: BP 135/62; PULSE 76; RESP 18; TEMP 36.8; O2SAT 97
[2018-05-12 16:55] LABS: Bedside Glucose 231 mg/dL (70-110)
[2018-05-12] MEDS: oxyCODONE 5 MG Tablet PO (20:25)
[2018-05-12 21:16] LABS: Bedside Glucose 285 mg/dL (70-110)
[2018-05-12] MEDS: Latanoprost 0.005% 1 Bottle 1 DRP OPHTHALMIC (22:16)
[2018-05-12] MEDS: Atorvastatin Calcium 40 MG Tablet PO (22:17)
[2018-05-12] MEDS: Acetaminophen 500 MG Tablet 1000 MG PO (22:30)
[2018-05-13] MEDS: oxyCODONE 5 MG Tablet PO ×4 (01:35→20:10)
[2018-05-13] MEDS: Fluticasone 0.05% 1 SPRAY NASAL.SRY 2 SPRAY NASAL (05:40)
[2018-05-13] MEDS: Clindamycin HCl 150 MG Capsule 300 MG PO ×3 (05:41→21:29)
[2018-05-13] MEDS: Senna/Docusate Sodium 1 Tablet PO ×2 (05:42→18:48)
[2018-05-13] MEDS: Pantoprazole Sodium 40 MG Tablet PO ×2 (05:42→17:40)
[2018-05-13] MEDS: Loratadine 10 MG Tablet PO (05:42)
[2018-05-13] MEDS: Doxycycline 100 MG CAPSULE PO ×2 (05:42→18:46)
[2018-05-13] MEDS: Nystatin Powder 15gm Bottle 1 APPLIC TOPICAL ×2 (05:42→18:50)
[2018-05-13] MEDS: Isosorbide Mononitrate 30 MG Tablet PO (05:43)
[2018-05-13 06:56] LABS: Bedside Glucose 233 mg/dL (70-110)
[2018-05-13] MEDS: Insulin Lispro 100 UNIT/ML INSULN.PEN 8 UNIT SC ×2 (07:56→12:03)
[2018-05-13] MEDS: Gabapentin 100 MG Capsule 200 MG PO ×2 (07:58→18:46)
[2018-05-13 10:00] VITALS: PULSE 82; O2SAT 98
[2018-05-13 11:15] LABS: Bedside Glucose 193 mg/dL (70-110)
--- NOTE | 2018-05-13 12:34 | NURSING ---
Pt has c/o worsening acid reflux. Dr. Alexis updated, NO to increase protonix to 40mg BID.
--- NOTE | 2018-05-13 14:01 | NURSING ---
No to increase lantus to 27 units QHS and increase humalog to 9 units AC
[2018-05-13 15:33] VITALS: BP 127/53; PULSE 74; RESP 16; TEMP 36.7; O2SAT 99
[2018-05-13 16:55] LABS: Bedside Glucose 153 mg/dL (70-110)
[2018-05-13] MEDS: Insulin Lispro 100 UNIT/ML INSULN.PEN 9 UNIT SC (18:47)
[2018-05-13] MEDS: Atorvastatin Calcium 40 MG Tablet PO (20:10)
[2018-05-13] MEDS: Latanoprost 0.005% 1 Bottle 1 DRP OPHTHALMIC (20:10)
[2018-05-13 21:01] LABS: Bedside Glucose 162 mg/dL (70-110)
--- NOTE | 2018-05-13 21:38 | NURSING ---
Pt voiced concern over upcoming discharge to home. States her son is picking her up and will be calling her when he is [place] [address], approx a half hour from facility. States he will have her dog in the car and she cannot tolerate the cold. She wants to be ready to walk out when he arrives, between 0930 and 10am Monday morning. Explained to pt what goes into discharge planning and what engineering documentation specialist can do to help expedite the process. Pt pleased with this and encouraged not to worry about it right now. Said she understands. RN aware, continuing to monitor.
[2018-05-14 07:00] LABS: Bedside Glucose 235 mg/dL (70-110)
[2018-05-14] MEDS: Fluticasone 0.05% 1 SPRAY NASAL.SRY 2 SPRAY NASAL (07:08)
[2018-05-14] MEDS: Nystatin Powder 15gm Bottle 1 APPLIC TOPICAL ×2 (07:09→21:02)
[2018-05-14] MEDS: Clindamycin HCl 150 MG Capsule 300 MG PO ×3 (07:09→20:56)
[2018-05-14] MEDS: Isosorbide Mononitrate 30 MG Tablet PO (07:09)
[2018-05-14] MEDS: Pantoprazole Sodium 40 MG Tablet PO ×2 (07:09→18:02)
[2018-05-14] MEDS: Loratadine 10 MG Tablet PO (07:10)
[2018-05-14] MEDS: Doxycycline 100 MG CAPSULE PO ×2 (07:10→18:03)
[2018-05-14] MEDS: oxyCODONE 5 MG Tablet PO (07:11)
[2018-05-14] MEDS: Senna/Docusate Sodium 1 Tablet PO ×2 (07:11→18:02)
[2018-05-14] MEDS: Insulin Lispro 100 UNIT/ML INSULN.PEN 9 UNIT SC ×3 (07:51→18:03)
[2018-05-14] MEDS: Gabapentin 100 MG Capsule 200 MG PO ×2 (07:51→18:03)
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
[2018-05-14 09:45] VITALS: PULSE 88; RESP 18
[2018-05-14 11:45] LABS: Bedside Glucose 124 mg/dL (70-110)
--- NOTE | 2018-05-14 14:40 | CASEMGMT ---
Insurance [employer] faxed to insurance company today. Auth # [id number] AREN Hull
--- NOTE | 2018-05-14 14:41 | CASEMGMT ---
Social Work Pt planning on discharge 05/15/18. ANNIE spoke with pt [facility] coordinator Shellie and with Waiver program KAMILA Alvarez. Pt currently has home delivered meals and a medical alert through the waiver program. Pt has requested RETOUCHER 2hr day MWF. Kim states she is working to get this set up for pt. Shellie stating pt is requesting an extended tub bench. Referral made to [employer] ([phone]). Will fax order and they will deliver to pt home. ANNIE spoke with Meggan at [facility] and requested RETOUCHER be added to pt care team along with the RN as Waiver has not gotten RETOUCHER set up yet. Met with pt in room and discussed d/c plan. Pt is agreeable to d/c plan. Pt son will pick pt up at 9:30 tomorrow. Pt also stating she would like scripts sent to [employer] [employer] ANNIE informed Chalo RN of pt preference and time of product picker. Plan: home with [facility] RN, AREN Garcia
[2018-05-14 15:56] VITALS: BP 133/59; PULSE 76; RESP 18; TEMP 36.4; O2SAT 97
[2018-05-14 16:56] LABS: Bedside Glucose 162 mg/dL (70-110)
[2018-05-14] MEDS: Latanoprost 0.005% 1 Bottle 1 DRP OPHTHALMIC (20:55)
[2018-05-14] MEDS: Atorvastatin Calcium 40 MG Tablet PO (20:56)
[2018-05-14 21:06] LABS: Bedside Glucose 234 mg/dL (70-110)
[2018-05-15] MEDS: Isosorbide Mononitrate 30 MG Tablet PO (06:33)
[2018-05-15] MEDS: Pantoprazole Sodium 40 MG Tablet PO (06:33)
[2018-05-15] MEDS: Fluticasone 0.05% 1 SPRAY NASAL.SRY 2 SPRAY NASAL (06:33)
[2018-05-15] MEDS: Senna/Docusate Sodium 1 Tablet PO (06:33)
[2018-05-15] MEDS: Loratadine 10 MG Tablet PO (06:33)
[2018-05-15] MEDS: Nystatin Powder 15gm Bottle 1 APPLIC TOPICAL (06:35)
[2018-05-15 06:36] LABS: Bedside Glucose 173 mg/dL (70-110)
[2018-05-15] MEDS: Insulin Lispro 100 UNIT/ML INSULN.PEN 9 UNIT SC (07:51)
[2018-05-15] MEDS: Gabapentin 100 MG Capsule 200 MG PO (07:51)
[2018-05-15 08:38] VITALS: BP 152/90; PULSE 871; RESP 18; TEMP 36.4; O2SAT 98
[2018-05-15 08:55] VITALS: RESP 18; O2SAT 98
--- NOTE | 2018-05-15 09:03 | NURSING ---
appt with Dr Levin cancelled per pt request, wants to stay with Dr Alexis, appt made with him
--- NOTE | 2018-05-15 16:57 | CASEMGMT ---
Insurance Notified of resident discharge on 05/15/18 to home alone. Auth#[id number] AREN Anthony, CHANGE ROOM ATTENDANT
--- NOTE | 2018-05-16 07:58 | MDS.RN ---
Information for the mds was obtained from review of the clinical record, interview of resident, staff, and direct observation of resident's care.
== END 2018-05-15 09:01 | disposition home health service (06) | DRG 948 ==
PROVIDERS: Admitting Provider Family Medicine Geriatric Medicine; Family Provider Family Medicine Geriatric Medicine; PCP Family Medicine Geriatric Medicine; Referring Provider Family Medicine Geriatric Medicine; Visit Provider Family Medicine Geriatric Medicine
DX: R53.81 Other malaise (principal); L03.116 Cellulitis of left lower limb; I25.10 Atherosclerotic heart disease of native coronary artery without angina pectoris; E78.5 Hyperlipidemia, unspecified; E11.42 Type 2 diabetes mellitus with diabetic polyneuropathy; B35.4 Tinea corporis; K21.9 Gastro-esophageal reflux disease without esophagitis; H40.9 Unspecified glaucoma; S81.812D Laceration without foreign body, left lower leg, subsequent encounter; V49.9XXD Car occupant (driver) (passenger) injured in unspecified traffic accident, subsequent encounter; G25.81 Restless legs syndrome; F31.9 Bipolar disorder, unspecified; J44.9 Chronic obstructive pulmonary disease, unspecified; F41.1 Generalized anxiety disorder; M06.9 Rheumatoid arthritis, unspecified; I10 Essential (primary) hypertension; F44.81 Dissociative identity disorder; G40.909 Epilepsy, unspecified, not intractable, without status epilepticus; G47.33 Obstructive sleep apnea (adult) (pediatric); E11.65 Type 2 diabetes mellitus with hyperglycemia; E66.01 Morbid (severe) obesity due to excess calories; Z68.37 Body mass index [BMI] 37.0-37.9, adult; Z71.3 Dietary counseling and surveillance; Z86.14 Personal history of Methicillin resistant Staphylococcus aureus infection; F17.210 Nicotine dependence, cigarettes, uncomplicated
CPT/HCPCS: 36415; 80048; 82962; 85025; 97110; 97116; 97162; 97166; 97530; 97535; 97802

== ENCOUNTER → 2018-05-16 13:19 | Outpatient (CLI) | payer MEDICARE, SELFPAY ==
[2018-05-16 17:13] LABS: Absolute Lymphocyte Count 2.46 X10^3/ul (0.83-4.51); Absolute Neutrophil Count 3.8 X10^3/uL (2.0-7.7); Basophil# 0.06 X10^3/uL; Basophil% 0.8 % (0-1); Eosinophil# 0.18 X10^3/uL; Eosinophils% 2.5 % (0-5); Hematocrit 34.5 % (37-47); Lymphocyte # 2.46 X10^3/ul (4.0); Lymphocyte % 34.7 % (19-41); Mean Corp Hgb Conc 31.9 g/gl (32-36); Mean Corpuscular Hgb 31.4 pg (27.0-32.0); Mean Corpuscular Volume 98.6 fL (81-99); Mean Platelet Vol. 11.1 fl (6.2-12.0); Monocyte# 0.54 X10^3/uL; Monocyte% 7.6 % (0-10); Neutrophil # 3.82 X10^3/uL (2.7-7.7); Platelet Count 207 K/mm3 (150-450); RBC Distribution Width CV 13.1 % (11.6-14.6); RBC Distribution Width SD 46.1 fl (35.1-43.9); White Blood Count 7.1 K/mm3 (4.4-11.0)
[2018-05-16 17:17] LABS: POSITIVE COUNT NO; POSITIVE DIFFERENTIAL NO; POSITIVE MORPHOLOGY NO
[2018-05-16 17:29] LABS: Vitamin D,25 Hydroxy 34.8 ng/mL (29.95-100.01)
[2018-05-16 17:36] LABS: AST(SGOT) 13 U/L (15-37); Alanine Aminotransfer ALT/SGPT 24 U/L (13-56); Albumin, Serum 3.3 g/dL (3.2-5.0); Alkaline Phosphatase 46 U/L (45-117); Anion Gap 9 (5-15); BUN 30 mg/dL (7-18); BUN/Creat Ratio 32.8 RATIO (10-20); Calcium,Total 8.5 mg/dL (8.5-10.1); Chloride 108 mmol/L (98-107); Creatinine, Serum 0.92 mg/dL (0.55-1.02); EST Glomerular Filtration Rate 64 mL/min (>60); Est Glom Filt Rate - Afr Amer 78 mL/min (>60); Globulin 3.2 g/dL (2.2-4.2); Glucose 143 mg/dL (74-106); Potassium 4.2 mmol/L (3.5-5.1); Protein, Total 6.5 g/dL (6.4-8.2); Sodium Level 144 mmol/L (136-145); Thyroid Stim Hormone (TSH) 0.44 uIU/mL (0.358-3.74)
== END ==
PROVIDERS: Family Provider Family Medicine Geriatric Medicine; PCP Family Medicine Geriatric Medicine; Visit Provider Family Medicine Geriatric Medicine
DX: E11.9 Type 2 diabetes mellitus without complications (principal); I10 Essential (primary) hypertension; E55.9 Vitamin D deficiency, unspecified
CPT/HCPCS: 36415; 80053; 82306; 84443; 85025

== ENCOUNTER 2018-06-17 18:38 | Emergency (ER) | payer MEDICARE, SELFPAY ==
[2018-06-17 18:39] VITALS: BP 143/81; PULSE 83; RESP 15; TEMP 36.7; O2SAT 99; BMI 32.8
--- NOTE | 2018-06-17 18:58 | CT_ITS ---
STUDY: CT BRAIN WITHOUT CONTRAST REASON FOR EXAM: Female, 72 years old. Headache. RADIATION DOSAGE (If Supplied By Facility): CTDIvol = ( 44.99 ) mGy, DLP = ( 745.49 ) mGycm TECHNIQUE: Transaxial CT imaging of the brain was performed without administration of intravenous contrast material. Individualized dose optimization techniques were used for this CT. COMPARISON: None. FINDINGS: There is no acute bleed or infarct. There are normal white matter tracts. 04/24/2018 The ventricles are normal in configuration. There is no hydrocephalus. The visualized paranasal sinuses are clear. The mastoid air cells are well aerated. There is no skull fracture. CT/Brain/Head without Contrast IMPRESSION: No acute intracranial abnormality. Electronically Signed: Scotty Marroquin, at 20:29 EST Tel , Service support ,
--- NOTE | 2018-06-17 18:58 | EKG12_ITS ---
Test Reason : BACK PAIN Blood Pressure : / mmHG Vent. Rate : 078 BPM Atrial Rate : 078 BPM P-R Int : 138 ms QRS Dur : 084 ms QT Int : 408 ms P-R-T Axes : 030 026 028 degrees QTc Int : 465 ms Normal sinus rhythm Normal ECG Confirmed by DUTCH BOWMAN, ANTONIA ([id number]), newspaper managing editor JERRI SONI ([id number]) on 06/20/2018 3:10:42 PM Referred By: MAGDA Confirmed By:ANTONIA JUDD MD
--- NOTE | 2018-06-17 18:59 | RAD_ITS ---
STUDY: X-RAY - LEFT TIBIA AND FIBULA REASON FOR EXAM: Female, 72 years old. Nonhealing wound. TECHNIQUE: 2 view(s) of the tibia and fibula were obtained. COMPARISON: None. FINDINGS: There is no evidence of fracture or dislocation. There are no significant degenerative changes. There are no definite radiographic findings of osteomyelitis. There are subcentimeter soft tissue calcifications which are consistent with phleboliths. RAD/Tibia & Fibula 2 Views IMPRESSION: No fracture or dislocation. No definite radiographic findings of ostial myelitis. Electronically Signed: Scotty Marroquin, at 20:30 EST Tel , Service support ,
[2018-06-17 19:11] LABS: Bedside Glucose 65 mg/dL (70-110)
[2018-06-17 19:23] VITALS: BP 136/67; PULSE 81; RESP 16; O2SAT 92
[2018-06-17] MEDS: 0.9% Normal Saline 1,000 ML 150 ML IV (19:29)
[2018-06-17] MEDS: proMETHazine 25 MG/ML Syringe 6.25 MG IV (19:29)
[2018-06-17] MEDS: Morphine 4 MG/ML Syringe IV (19:29)
[2018-06-17 19:50] LABS: Absolute Lymphocyte Count 3.06 X10^3/ul (0.83-4.51); Basophil# 0.05 X10^3/uL; Basophil% 0.8 % (0-1); Eosinophil# 0.17 X10^3/uL; Eosinophils% 2.6 % (0-5); Hematocrit 34.5 % (37-47); Hemoglobin 11.3 g/dl (12.0-15.0); Lymphocyte # 3.06 X10^3/ul (4.0); Lymphocyte % 46.1 % (19-41); Mean Corp Hgb Conc 32.8 g/gl (32-36); Mean Corpuscular Hgb 30.6 pg (27.0-32.0); Mean Corpuscular Volume 93.5 fL (81-99); Mean Platelet Vol. 9.4 fl (6.2-12.0); Monocyte# 0.35 X10^3/uL; Monocyte% 5.3 % (0-10); Neutrophil # 3.01 X10^3/uL (2.7-7.7); Neutrophil % 45.2 % (47-70); Platelet Count 175 K/mm3 (150-450); RBC Distribution Width CV 12.4 % (11.6-14.6); Red Blood Count 3.69 M/mm3 (4.2-5.4); White Blood Count 6.6 K/mm3 (4.4-11.0)
[2018-06-17 19:51] LABS: POSITIVE COUNT NO; POSITIVE DIFFERENTIAL NO; POSITIVE MORPHOLOGY NO
[2018-06-17 19:59] LABS: Anion Gap 8 (5-15); BUN 20 mg/dL (7-18); BUN/Creat Ratio 23.2 RATIO (10-20); Calcium,Total 8.8 mg/dL (8.5-10.1); Chloride 109 mmol/L (98-107); Creatinine, Serum 0.86 mg/dL (0.55-1.02); EST Glomerular Filtration Rate 69 mL/min (>60); Est Glom Filt Rate - Afr Amer 83 mL/min (>60); Estimated Creatinine Clearance 44.62 ml/min; Glucose 69 mg/dL (74-106); Potassium 3.2 mmol/L (3.5-5.1); Sodium Level 146 mmol/L (136-145)
[2018-06-17 20:10] VITALS: BP 150/76; PULSE 84; RESP 16; O2SAT 94
[2018-06-17 20:45] LABS: Bacteria 0 SEEN /hpf (None Seen); Mucous, Urine 0 SEEN /hpf (<or=2+); Red Blood Cells-Urine 0 SEEN /hpf (0-5); White Blood Cells 0 SEEN /hpf (0-5)
[2018-06-17 20:46] LABS: Color, Urine Straw (Yellow); Glucose, Dipstick Normal (Normal); Ketone-Dipstick Negative (Negative); Leukocyte Esterase-Dipstick Negative /ul (Negative); Nitrite-Dipstick Negative (Negative); Occult Blood-Urine Negative /ul (Negative); Protein-Dipstick Negative (Negative); Urine Bilirubin Dipstick Negative (Negative); Urine Clarity Clear (Clear); Urine Urobilinogen Normal (Normal)
[2018-06-17 20:54] LABS: Squamous Epithelial Cells - UA 0-5 SEEN /hpf (5-10)
--- NOTE | 2018-06-17 21:21 | ED.DEP ---
ED Disposition - Plan for ED Patient: Chief Complaint: Wound Check Instructions: ED Dermatitis Non Specific Rash, ED Cephalgia Unspecified Prescriptions: Hydrocodone Bitart/Apap 5-325 [[place] 5MG-325MG] 1 tab PO Q4H PRN PRN 2 Days #10 tab PRN Reason: Pain hydrOXYzine tablet [Atarax tablet] 10 mg PO 4X/DAY PRN PRN #30 tab PRN Reason: Itching Referrals: Bailey Toribio MD [Primary Care Provider] - 3-5 Days
--- NOTE | 2018-06-17 21:24 | DCINST.ED_ITS ---
ED Disposition - Plan for ED Patient: Chief Complaint: Wound Check Instructions: ED Dermatitis Non Specific Rash, ED Cephalgia Unspecified Prescriptions: Hydrocodone Bitart/Apap 5-325 [[place] 5MG-325MG] 1 tab PO Q4H PRN PRN 2 Days #10 tab PRN Reason: Pain hydrOXYzine tablet [Atarax tablet] 10 mg PO 4X/DAY PRN PRN #30 tab PRN Reason: Itching Referrals: Bailey Toribio MD [Primary Care Provider] - 3-5 Days
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
[2018-06-17] MEDS: hydrOXYzine 10 MG Tablet PO (21:36)
[2018-06-17] MEDS: HYDROcodone Bitartrate/Apap 5/325 Tablet PO (21:37)
[2018-06-17 21:38] VITALS: BP 129/63; PULSE 80; RESP 16
--- OUTSIDE RECORDS SUMMARY | 2018-09-19 13:51 | XMS RPT_ITS ---
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 on her body. Loratadine continued She reported taking as needed Benadryl at home. PRN Benadryl continued. DVT prophylaxis Subcutaneous heparin. Code Visit OBSV E AND M: [id number] Initial observation care L3 06/28/18 0754 <Electronically signed by Farhat Ray MD> Date Farhat Ray MD Cosigner Signature: Date (if applicable) CC: Leo Higgins MD; Farhat Ray MD Signed CBC W/DIFF, AUTOMATED Collected: 06/28/2018 Status: F Source: [place] 5:02 AM [facility] REPOSITORY TYPE CODE TESTS RESULT OUT OF RANGE REFERENCE UNITS LAB L100.1000 4.4-11.0 K/mm3 Normal WBC 5.2 LAB L100.1200 4.2-5.4 M/mm3 Low RBC 3.89 LAB L100.1300 12.0-15.0 g/dl Low HGB 11.7 LAB L100.1400 37-47 % Low HCT 35.4 LAB L100.1500 81-99 fL Normal MCV 91.0 LAB L100.1600 27.0-32.0 pg Normal MCH 30.1 LAB L100.1700 32-36 g/gl Normal MCHC 33.1 LAB L100.1810 11.6-14.6 % Normal RDW CV 12.1 LAB L100.1820 35.1-43.9 fl Normal RDW SD 40.2 LAB L100.1900 150-450 K/mm3 Normal PLT 168 LAB L100.2000 6.2-12.0 fl Normal MPV 10.0 LAB L100.2100 47-70 % Normal NEUT% 58.4 LAB L100.2200 19-41 % Normal LY% 25.9 LAB L100.2300 0-10 % High MONO% 12.4 LAB L100.2400 0-5 % Normal EO% 2.5 LAB L100.2500 0-1 % Normal BASO% 0.6 LAB L100.2550 0.0-0.9 % Normal IM GRAN % 0.200 Result Comment: IG% - Immature Granulocytes (promyelocytes, myelocytes and metamyelocytes) > 1% indicates that a LEFT SHIFT is Present. LAB L100.2620 2.0-7.7 X10 3/uL Normal Absolute Neut 3.0 LAB L100.2720 0.83-4.51 X10 3/ul Normal Absolute Lymph 1.34 Performed By: #### L100.0100 #### [facility] [address] [place], [address] BASIC METABOLIC Collected: 06/28/2018 Status: F Source: [place] PROFILE (BMP) 5:02 AM [facility] REPOSITORY TYPE CODE TESTS RESULT OUT OF RANGE REFERENCE UNITS LAB L501.0100 74-106 mg/dL High GLU 193 Result Comment: Fasting Glucose result greater than or equal to 126 mg/dL suggests DIABETES MELLITUS per A.D.A. criteria. Please note revised GLUCOSE reference range effective 2017. LAB L501.1000 7-18 mg/dL Normal BUN 16 LAB L501.1100 0.55-1.02 mg/dL Normal CREAT,SERUM 0.86 Result Comment: The validity of the calculated GFR AND GFRAA in patients over 70 years has not been determined. Clinical correlation is essential. LAB L501.1110 >60 mL/min Normal EST GFR 69 Result Comment: Non- GFR Calc LAB L501.1115 >60 mL/min Normal EST GFR - AA 83 Result Comment: GFR Calc LAB L501.1255 ml/min Normal Estimated CRCL 44.62 LAB L501.1300 10-20 RATIO Normal BUN/CRE 18.6 LAB L501.2200 8.5-10 mg/dL Normal .1 CA 8.7 LAB L501.5300 136-14 mmol/L Normal 5 NA 141 LAB L501.5600 3.5-5. mmol/L Normal 1 K 3.5 LAB L501.5900 98-107 mmol/L Normal CL 104 LAB L501.6100 21.0-3 mmol/L Normal 2.0 CO2 27.0 LAB L501.6200 5-15 Normal GAP 10 Performed By: #### L500.2500 #### [facility] [address] [place], [address] BEDSIDE GLUCOSE Collected: 06/28/2018 Status: F Source: [place] 12:36 AM [facility] REPOSITORY TYPE CODE TESTS RESULT OUT OF REFERENCE UNITS RANGE LAB L501.080 70-110 mg/dL High BEDSIDE GLU 159 Result Comment: MANAGEMENT OF PATIENT CARE PER NURSING PROTOCOL Performed By: #### L501.080 #### [facility] Point of Care [address] [place] [address] EMERGENCY DEPARTMENT Observed: 06/27/2018 Status: F Source: [place] SUMMARY 11:30 PM [facility] REPOSITORY [facility] Medical Records Department [address] [facility] [place] [address] Emergency Department Summary 06/27/182001 MR#: [id number] Acct: [id number] Name: ANAHI MITCHELL Rep #: [id number] : 1945 72 From: Julia Rebolledo MD PCP: Leo Higgins MD Status: REG ER - ER Visit Summary Date of Service: 06/27/18 Chief Complaint: Abdominal pain History of Present Illness: The patient is a 72 F who presents for ongoing abdominal pain for several days. This is patient's fifth visit since June 17 for the same complaint. She was seen last night, and daughter states that she was still in pain when discharged home. She fell asleep and then the afternoon, patient called her and found her crying because the pain was so severe. She has associated nausea, denies diarrhea in the last day. No urinary symptoms. Pain is mainly left lower quadrant and now radiating around into the left back. Patient has a history of chronic back pain secondary to traumatic injury. Patient is diabetic and has not eaten anything today. She has had multiple abdominal surgeries. Further history limited secondary to patient will not answer my questions. Physical Examination: Vital signs: afebrile, hemodynamically stable, no hypoxia on room air General: well nourished, well developed, laying left lateral recumbent, crying Skin: warm, dry, no rash, no pallor HEENT: normocephalic and atraumatic; PERRL, EOMI, moist mucous membranes Cardiovascular: regular rate and rhythm without murmurs, no peripheral edema Respiratory: No increased work of breathing, lungs are clear to auscultation bilaterally, no rales, rhonchi or wheezing Abdominal: Abdomen is soft, tender initially in left lower quadrant, no guarding or rebound, no masses, audible abdominal scars MSK: Moves all extremities, no deformities, normal strength Neuro: Awake and alert, tearful. No facial droop, sensation and motor function intact and symmetric Test Results: Abnormal Lab Results WBC 6.6 RBC 3.99 L Hgb 12.1 Hct 36.0 L MCV 90.2 MCH 30.3 MCHC 33.6 RDW 11.8 RDW Differential 38.9 WBC RBC Hgb Hct MCV MCH MCHC RDW RDW Differential Plt Count MPV Immature Gran % (Auto) Neut % (Auto) Lymph % (Auto) [place] % (Auto) Clinical Impression(s) from Imaging Studies Abdomen/Pelvis CTA 06/27/18 20:02 IMPRESSION: Mild atherosclerotic calcifications of the abdominal aorta and major abdominal arteries as noted. Mild to moderate luminal narrowing of the right renal artery. No aneurysm. Electronically Signed: Tao Simpson DO at 21:11 EST Tel [phone], Service support , Medications Given Discontinued Medications Sodium Chloride () 1,000 mls @ 1,000 mls/hr IV .Q1H ONE Stop: 06/27/18 20:59 Last Admin: 06/27/18 20:15 Dose: 1,000 mls/hr Morphine Sulfate () 4 mg IV X1 ONE Stop: 06/27/18 20:01 Last Admin: 06/27/18 20:15 Dose: 4 mg Morphine Sulfate () 4 mg IV X1 ONE Stop: 06/27/18 21:35 Last Admin: 06/27/18 21:38 Dose: 4 mg Ondansetron HCl (Zofran) 4 mg IV X1 ONE Stop: 06/27/18 20:01 Last Admin: 06/27/18 20:15 Dose: 4 mg Emergency Department Course and Treatment: This is patient's fifth visit for the same complaint, and her pain seems out of proportion to her abdominal exam. CT angio of the abdomen and pelvis obtained to evaluate for any possible mesenteric ischemia. Patient was given Zofran and morphine for symptomatic relief. He required multiple doses of morphine. Labs showed no abnormalities, CTA of the abdomen and pelvis showed no ischemia or other acute changes. Because patient is having such severe discomfort of unknown origin and is requiring multiple doses of IV medication, she will be admitted for intractable abdominal pain and further workup. Treatment Plan: [] Disposition: [] Impression: Intractable abdominal pain This note was generated with DISKOVRe dictation software. It may contain incorrect words, spelling, and punctuation that were not noted in review of the chart prior to signing ED Disposition - Plan for ED Patient: Chief Complaint: Abd Pain Referrals: Leo Higgins MD [Primary Care Provider] - What to do if you have Problems For any increased pain, shortness of breath, bleeding, nausea or vomiting, chest pain, or any unexpected problems, contact your Primary Care Provider. Call [facility] ([phone]) or report to the closest Emergency Room. Call 911 if necessary. 06/27/18 2330 <Electronically signed by Julia Rebolledo MD> Date Julia Rebolledo MD Cosigner Signature (If Indicated): Date CC: Leo Higgins MD CT ANGIO ABD AND Observed: 06/27/2018 Status: F Source: [place] PEL W/O AND W/DYE 8:05 PM [facility] REPOSITORY [facility] Imaging Services [address] [place] [address] CT ANGIO ABD AND PEL W/O AND W/DYE MR#: [id number] Acct: [id number] Name: ANAHI MITCHELL Rep #: [id number] : 1945 F 72 From: Tao Simpson DO PCP: Leo Higgins MD Status: REG ER Study: CT ANGIO ABD AND PEL W/O AND W/DYE Date of Exam: 06/27/18 Exam# [id number] Ordering Dr: Julia Rebolledo MD STUDY: CTA OF THE ABDOMINAL AORTA REASON FOR EXAM: Female, 72 years old. Pain RADIATION DOSAGE (If Supplied By Facility): CTDIvol = ( 25.08 ) mGy, DLP = ( 1140.14 ) mGycm TECHNIQUE: Axial CT angiography multi-detector data acquisition was obtained from the lung bases to the pubic symphysis following intravenous administration of 100ML ml of Isovue 370 contrast. Axial images and MIP images were reconstructed from the axial data set. Post-processing of the angiographic images was performed, with multiplanar reformation and 3D reconstruction. Individualized dose optimization techniques were used for this CT. TECHNICAL QUALITY: Good COMPARISON: June 21, 2018 Descriptors of Narrowing: None (0%) Mild (< 50%) Moderate (50-70%) Severe (70-90%) Subtotal/Total Occlusion (90-100%) Non-Evaluable (technically non-diagnostic FINDINGS: Abdominal aorta: Diffuse atherosclerotic calcifications with no hemodynamically significant narrowing. Celiac and superior mesenteric arteries: Mild atherosclerotic calcifications with no hemodynamically significant narrowing. Inferior mesenteric artery: Mild luminal narrowing at the origin. Right renal artery(arteries): Ostial calcifications with mild to moderate luminal narrowing. Left renal artery(arteries): Ostial calcification with mild luminal narrowing. Right common iliac artery: Atherosclerotic calcifications with mild luminal narrowing. Right external iliac artery: Atherosclerotic calcifications with mild luminal narrowing. Right internal iliac artery: Atherosclerotic calcifications with mild luminal narrowing. Left common iliac artery: Atherosclerotic calcifications with mild luminal narrowing. Left external iliac artery: Atherosclerotic calcifications with mild luminal narrowing. Left internal iliac artery: Atherosclerotic calcifications with mild luminal narrowing. Right common femoral artery: No demonstrated narrowing. Left common femoral artery: Atherosclerotic calcifications with mild luminal narrowing. Patchy groundglass interstitial densities at the lung bases. Fatty liver. 5 mm nonobstructing right renal stone. Mild colonic diverticulosis. Small hiatal hernia. Small fatty umbilical hernia. Possible 8 mm left adrenal hypoattenuated nodule. CT/CT ANGIO ABD AND PEL W/O AND W/DYE IMPRESSION: Mild atherosclerotic calcifications of the abdominal aorta and major abdominal arteries as noted. Mild to moderate luminal narrowing of the right renal artery. No aneurysm. Electronically Signed: Tao Simpson DO at 21:11 EST Tel [phone], Service support , CC: Leo Higgins MD; Julia Rebolledo MD Crane Follower: Signed CBC W/DIFF, AUTOMATED Collected: 06/27/2018 Status: F Source: [place] 7:02 PM [facility] REPOSITORY TYPE CODE TESTS RESULT OUT OF RANGE REFERENCE UNITS LAB L100.1000 4.4-11.0 K/mm3 Normal WBC 6.6 LAB L100.1200 4.2-5.4 M/mm3 Low RBC 3.99 LAB L100.1300 12.0-15.0 g/dl Normal HGB 12.1 LAB L100.1400 37-47 % Low HCT 36.0 LAB L100.1500 81-99 fL Normal MCV 90.2 LAB L100.1600 27.0-32.0 pg Normal MCH 30.3 LAB L100.1700 32-36 g/gl Normal MCHC 33.6 LAB L100.1810 11.6-14.6 % Normal RDW CV 11.8 LAB L100.1820 35.1-43.9 fl Normal RDW SD 38.9 LAB L100.1900 150-450 K/mm3 Normal PLT 185 LAB L100.2000 6.2-12.0 fl Normal MPV 9.8 LAB L100.2100 47-70 % Normal NEUT% 60.3 LAB L100.2200 19-41 % Normal LY% 30.8 LAB L100.2300 0-10 % Normal MONO% 6.3 LAB L100.2400 0-5 % Normal EO% 1.8 LAB L100.2500 0-1 % Normal BASO% 0.6 LAB L100.2550 0.0-0.9 % Normal IM GRAN % 0.200 Result Comment: IG% - Immature Granulocytes (promyelocytes, myelocytes and metamyelocytes) > 1% indicates that a LEFT SHIFT is Present. LAB L100.2620 2.0-7.7 X10 3/uL Normal Absolute Neut 4.0 LAB L100.2720 0.83-4.51 X10 3/ul Normal Absolute Lymph 2.04 Performed By: #### L100.0100 #### [facility] [address] [place], [address] BASIC METABOLIC Collected: 06/27/2018 Status: F Source: [place] PROFILE (BMP) 7:02 PM [facility] REPOSITORY TYPE CODE TESTS RESULT OUT OF RANGE REFERENCE UNITS LAB L501.0100 74-106 mg/dL High GLU 170 Result Comment: Fasting Glucose result greater than or equal to 126 mg/dL suggests DIABETES MELLITUS per A.D.A. criteria. Please note revised GLUCOSE reference range effective 2017. LAB L501.1000 7-18 mg/dL Normal BUN 17 LAB L501.1100 0.55-1.02 mg/dL Normal CREAT,SERUM 0.84 Result Comment: The validity of the calculated GFR AND GFRAA in patients over 70 years has not been determined. Clinical correlation is essential. LAB L501.1110 >60 mL/min Normal EST GFR 70 Result Comment: Non- GFR Calc LAB L501.1115 >60 mL/min Normal EST GFR - AA 85 Result Comment: GFR Calc LAB L501.1255 ml/min Normal Estimated CRCL 45.68 LAB L501.1300 10-20 RATIO High BUN/CRE 20.1 LAB L501.2200 8.5-10 mg/dL Normal .1 CA 9.3 LAB L501.5300 136-14 mmol/L Normal 5 NA 139 LAB L501.5600 3.5-5. mmol/L Normal 1 K 3.9 LAB L501.5900 98-107 mmol/L Normal CL 103 LAB L501.6100 21.0-3 mmol/L Normal 2.0 CO2 27.0 LAB L501.6200 5-15 Normal GAP 9 Performed By: #### L500.2500 #### [facility] [address] [place], [address] LIVER PROFILE Collected: 06/27/2018 Status: F Source: [place] 7:02 [facility] REPOSITORY TYPE CODE TESTS RESULT OUT OF RANGE REFERENCE UNITS LAB L501.1500 6.4-8.2 g/dL Normal T PROT 7.4 LAB L501.1800 3.2-5.0 g/dL Normal ALB 3.8 LAB L501.1950 2.2-4.2 g/dL Normal GLOB 3.6 LAB L501.4100 15-37 U/L Normal AST 17 LAB L501.4305 45-117 U/L Normal ALK P 73 LAB L501.4405 13-56 U/L Normal ALT 39 LAB L501.4600 0.20-1.00 mg/dL Normal T BILI 0.80 LAB L501.4700 0.00-0.30 mg/dL Normal D BILI 0.21 Performed By: #### L500.3400, L501.2450 #### [facility] [address] [place], [place], [address] LIPASE Collected: 06/27/2018 Status: F Source: [place] 7:02 PM [facility] REPOSITORY TYPE CODE TESTS RESULT OUT OF RANGE REFERENCE UNITS LAB L501.2450 73-393 U/L Normal LIPASE 303 Performed By: #### L500.3400, L501.2450 #### [facility] [address] [place], [place], [address] URINALYSIS, COMPLETE Collected: 06/27/2018 Status: F Source: [place] 6:05 PM [facility] REPOSITORY Order Comment: How was Urine Obtained? GRAPHIC DESIGNER TO SPECIFY TYPE CODE TESTS RESULT OUT OF RANGE REFERENCE UNITS LAB L400.3000 Yellow COLOR Normal Yellow LAB L400.3050 Clear Normal CLARITY Clear LAB L400.3200 Normal mg/dl Normal GLUCOSE, UR Normal LAB L400.3300 Negative mg/dL Normal BILIRUBIN URINE Negative LAB L400.3400 Negative mg/dl Normal KETONE UR Negative LAB L400.3465 1.002-1.030 Normal SP.GR. DIPSTX 1.005 LAB L400.3550 5.0 - 8.0 pH UR Normal 7.0 LAB L400.3600 Negative mg/dl High PROT 30 DIPSTX LAB L400.3700 Normal mg/dl Normal UROBILI Normal LAB L400.3750 Negative Normal NITRITE UR Negative LAB L400.3780 Negative /ul High 10 OCCULT BLOOD-UR LAB L400.3800 Negative /ul LEUK Normal ESTERASE Negative LAB L400.4050 0-5 /hpf WBC 0 Normal SEEN LAB L400.4100 0-5 /hpf Normal RBC-UA 0-5 SEEN LAB L400.4150 5-10 /hpf SQUAM Normal EPI 0-5 SEEN LAB L400.4300 None Seen /hpf 0 Normal BACTERIA SEEN LAB L400.4350 <or=2+ /hpf 0 Normal MUCUS, URINE SEEN Performed By: #### L400.0001 #### [facility] [address] [facility], [address] Observed: 06/27/2018 Status: F Source: [place] CULTURE, URINE 6:05 PM [facility] REPOSITORY Urine Culture Culture exhibits no growth. Performed By: #### M100.0650 #### [facility] [address] [facility], [address] DISCHARGE INSTRUCTION Observed: 06/26/2018 Status: F Source: [place] 3:51 PM [facility] REPOSITORY [facility] Medical Records Department [address] [place] [address] Discharge Instruction 06/26/18 1549 MR#: [id number] Acct: [id number] Name: ANAHI MITCHELL Rep #: [id number] : 1945 72 From: Karina Gaines DO PCP: Leo Higgins MD Status: REG ER ED Disposition - Plan for ED Patient: Chief Complaint: Flank Pain Instructions: ED Flank Pain Uncertain Cause, Abdominal Pain Prescriptions: Oxycodone HCl/Acetaminophen [Percocet 5/325] 1 tab PO Q6H PRN PRN 3 Days #12 tab PRN Reason: Pain Referrals: Leo Higgins MD [Primary Care Provider] - 3-5 Days Tish Garcia MD [STAFF PHYSICIAN] - 3-5 Days What to do if you have Problems For any increased pain, shortness of breath, bleeding, nausea or vomiting, chest pain, or any unexpected problems, contact your Primary Care Provider. Call [employer] ([phone]) or report to the closest Emergency Room. Call 911 if necessary. 06/26/18 1551 <Electronically signed by Karina Gaines DO> Date Karina Gaines DO Cosigner Signature (If Indicated): Date CC: Leo Higgins MD EMERGENCY DEPARTMENT Observed: 06/26/2018 Status: F Source: [place] SUMMARY 3:49 PM [facility] REPOSITORY [facility] Medical Records Department [address] [place] [address] Emergency Department Summary 06/26/18 1546 MR#: [id number] Acct: [id number] Name: ANAHI MITCHELL Rep #: [id number] : 1945 72 From: Karina Gaines DO PCP: Leo Higgins MD Status: REG ER - ER Visit Summary Date of Service: 06/26/18 Chief Complaint: [Abdominal pain] History of Present Illness: The patient is a 72 F [presents to the emergency department with abdominal pain that she has had for several weeks. Patient states the pain tends to come and go. Patient states yesterday she felt great all day and had no discomfort. Patient was seen for similar complaint about 5 days ago in the emergency department. Patient had a CT scan of her abdomen and pelvis in her lumbar spine at that time that was unremarkable. Patient denies any fever. She denies any blood in her stool or black tarry stool. Patient has had some nausea and some intermittent diarrhea. Patient states that she has had decreased p.o. intake.] Patient with history of appendectomy, cholecystectomy, and hysterectomy. Patient states she still has her ovaries. Physical Examination: HEENT-PERRLA, EOMI. Cranial nerves II through XII grossly intact. TMs clear. Mucous membranes moist. No adenopathy. Cardiovascular-regular rate and rhythm without murmur or ectopy Lungs-clear to auscultation, chest wall stable without crepitus or subcu emphysema Abdomen-normoactive bowel sounds, soft. Patient has diffuse tenderness palpation over left lower quadrant. There is some guarding. There is no rebound, rigidity, or perineal signs. Extremities-intact 4, normal range of motion, normal pulses, atraumatic] Test Results: [CBC with differential obtained was normal with a white blood cell count of 5.5, hemoglobin 12, hematocrit 35.6, platelets 157. History is were unremarkable. Urinalysis was normal. Lactate was normal at 1.2.] Emergency Department Course and Treatment: [She was medicated with morphine and Zofran given normal saline. Patient had good pain relief with that. At this point I do not feel any further imaging is indicated as she just had a CT scan 5 days ago.] Treatment Plan: [Follow-up with primary care physician within next 3-5 days. Patient also to follow-up with CLEANER ASSISTANT on-call. Patient advised to return if worsening pain persistent vomiting, dehydration, fever, or condition should worsen anyway.] Disposition: [Discharged home in stable condition] Impression: [Abdominal pain-etiology uncertain] This note was generated with [employer] dictation software. It may contain incorrect words, spelling, and punctuation that were not noted in review of the chart prior to signing ED Disposition - Plan for ED Patient: Chief Complaint: Flank Pain Referrals: Leo Higgins MD [Primary Care Provider] - What to do if you have Problems For any increased pain, shortness of breath, bleeding, nausea or vomiting, chest pain, or any unexpected problems, contact your Primary Care Provider. Call [facility] ([phone]) or report to the closest Emergency Room. Call 911 if necessary. 06/26/18 1549 <Electronically signed by Karina Gaines DO> Date Karina Gaines DO Cosigner Signature (If Indicated): Date CC: Leo Higgins MD URINALYSIS, COMPLETE Collected: 06/26/2018 Status: F Source: [place] 2:55 PM [facility] REPOSITORY Order Comment: How was Urine Obtained? CLEAN CATCH TYPE CODE TESTS RESULT OUT OF RANGE REFERENCE UNITS LAB L400.3000 Yellow COLOR Normal Yellow LAB L400.3050 Clear Normal CLARITY Clear LAB L400.3200 Normal mg/dl High GLUCOSE, UR 250 LAB L400.3300 Negative mg/dL Normal BILIRUBIN URINE Negative LAB L400.3400 Negative mg/dl Normal KETONE UR Negative LAB L400.3465 1.002-1.030 Normal SP.GR. DIPSTX 1.010 LAB L400.3550 5.0 - 8.0 pH UR Normal 7.0 LAB L400.3600 Negative mg/dl High PROT DIPSTX 100 LAB L400.3700 Normal mg/dl Normal UROBILI Normal LAB L400.3750 Negative Normal NITRITE UR Negative LAB L400.3780 Negative /ul High 10 OCCULT BLOOD-UR LAB L400.3800 Negative /ul LEUK Normal ESTERASE Negative LAB L400.4050 0-5 /hpf WBC 0 Normal SEEN LAB L400.4100 0-5 /hpf Normal RBC-UA 0-5 SEEN LAB L400.4150 5-10 /hpf SQUAM Normal EPI 0-5 SEEN LAB L400.4300 None Seen /hpf 0 Normal BACTERIA SEEN LAB L400.4350 <or=2+ /hpf 0 Normal MUCUS, URINE SEEN Performed By: #### L400.0001 #### [facility] [address] [place], [address] CBC W/DIFF, AUTOMATED Collected: 06/26/2018 Status: F Source: [place] 1:37 PM [facility] REPOSITORY TYPE CODE TESTS RESULT OUT OF RANGE REFERENCE UNITS LAB L100.1000 4.4-11.0 K/mm3 Normal WBC 5.5 LAB L100.1200 4.2-5.4 M/mm3 Low RBC 3.90 LAB L100.1300 12.0-15.0 g/dl Normal HGB 12.0 LAB L100.1400 37-47 % Low HCT 35.6 LAB L100.1500 81-99 fL Normal MCV 91.3 LAB L100.1600 27.0-32.0 pg Normal MCH 30.8 LAB L100.1700 32-36 g/gl Normal MCHC 33.7 LAB L100.1810 11.6-14.6 % Normal RDW CV 11.9 LAB L100.1820 35.1-43.9 fl Normal RDW SD 40.1 LAB L100.1900 150-450 K/mm3 Normal PLT 157 LAB L100.2000 6.2-12.0 fl Normal MPV 9.9 LAB L100.2100 47-70 % Normal NEUT% 66.7 LAB L100.2200 19-41 % Normal LY% 24.5 LAB L100.2300 0-10 % Normal MONO% 6.8 LAB L100.2400 0-5 % Normal EO% 1.1 LAB L100.2500 0-1 % Normal BASO% 0.7 LAB L100.2550 0.0-0.9 % Normal IM GRAN % 0.200 Result Comment: IG% - Immature Granulocytes (promyelocytes, myelocytes and metamyelocytes) > 1% indicates that a LEFT SHIFT is Present. LAB L100.2620 2.0-7.7 X10 3/uL Normal Absolute Neut 3.7 LAB L100.2720 0.83-4.51 X10 3/ul Normal Absolute Lymph 1.34 Performed By: #### L100.0100 #### [facility] Laboratory [address] [place], [place], [address] COMPREHENSIVE METABOLIC Collected: 06/26/2018 Status: F Source: [facility] 1:37 PM [facility] REPOSITORY TYPE CODE TESTS RESULT OUT OF RANGE REFERENCE UNITS LAB L501.0100 74-106 mg/dL High GLU 244 Result Comment: Glucose result greater than or equal to 200 mg/dL suggests DIABETES MELLITUS per A.D.A. criteria. Please note revised GLUCOSE reference range effective 2017. LAB L501.1000 7-18 mg/dL Normal BUN 13 LAB L501.1100 0.55-1.02 mg/dL Normal CREAT,SERUM 0.92 Result Comment: The validity of the calculated GFR AND GFRAA in patients over 70 years has not been determined. Clinical correlation is essential. LAB L501.1110 >60 mL/min Normal EST GFR 64 Result Comment: Non- GFR Calc LAB L501.1115 >60 mL/min Normal EST GFR - AA 77 Result Comment: GFR Calc LAB L501.1255 ml/min Normal Estimated CRCL 41.71 LAB L501.1300 10-20 RATIO Normal BUN/CRE 14.2 LAB L501.1500 6.4-8. g/dL Normal 2 T PROT 6.9 LAB L501.1800 3.2-5. g/dL Normal 0 ALB 3.5 LAB L501.1950 2.2-4. g/dL Normal 2 GLOB 3.4 LAB L501.2000 0.9-2. RATIO Normal 4 A/G 1.0 LAB L501.2200 8.5-10 mg/dL Normal .1 CA 8.9 LAB L501.4100 15-37 U/L Low AST 13 LAB L501.4305 45-117 U/L Normal ALK P 66 LAB L501.4405 13-56 U/L Normal ALT 38 LAB L501.4600 0.20-1 mg/dL Normal .00 T BILI 1.00 LAB L501.5300 136-14 mmol/L Normal 5 NA 138 LAB L501.5600 3.5-5. mmol/L Normal 1 K 4.1 LAB L501.5900 98-107 mmol/L Normal CL 103 LAB L501.6100 21.0-3 mmol/L Normal 2.0 CO2 27.0 LAB L501.6200 5-15 Normal GAP 8 Performed By: #### L500.4050, L501.2450 #### [facility] [address] [facility] [id number] LIPASE Collected: 06/26/2018 Status: F Source: [place] 1:37 PM [facility] REPOSITORY TYPE CODE TESTS RESULT OUT OF RANGE REFERENCE UNITS LAB L501.2450 73-393 U/L Normal LIPASE 119 Performed By: #### L500.4050, L501.2450 #### [facility] [address] [place], [place], [id number] LACTIC ACID Collected: 06/26/2018 Status: F Source: [place] 1:37 PM [facility] REPOSITORY Order Comment: Yes/No query for Sepsis Lactate Rule Y TYPE CODE TESTS RESULT OUT OF RANGE REFERENCE UNITS LAB L503.6005 0.4-2.0 mmol/L Normal LACTIC ACID 1.2 Performed By: #### L503.6005 #### [facility] [address] [place], [address]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 Age less than 6 months? No Allergy to eggs, chicken, chicken feathers, or chicken dander? No Allergy to thimerosal (a preservative) or formaldehyde, gelatin? No History of severe reaction to any vaccine component or a previous dose of influenza vaccination? No History of Guillain-[place] Syndrome within 6 weeks after a previous influenza vaccine? No Patient is not moderately or severely ill? No Current temperature greater or equal to 100.4F? No History of Bone Marrow Transplant prior 6 months or solid organ transplant in the past 3 months ? No History of fainting after a prior injection or medical procedure? No- ? If patient has fainted in the past, the CDC recommends sitting or lying down for 15 minutes after the vaccination. [] VERIFICATION color enhanced section Was the answer Yes for any of the above contraindications? No contraindications present. Acceptable to proceed with vaccine. Patient/guardian agrees the above answers are true to the best of their knowledge? Yes Flu vaccine information sheet given? Yes See immunization activity in [facility] for details of immunizations adminstered today. Patient age: [age] year old For The 8142-2888 Flu Season 6-35 months old: Fluzone 0.25 ml - IM (Preservative Free) 3 years of age: Fluzone 0.5 ml - IM (Preservative Free) 3 years and older: Fluzone 0.5 ml- IM-(with Preservatives) 65+ years old: 2-49 years old Fluzone High-Dose 0.5 ml - IM (Preservative Free) FLUMIST- intranasal REMEMBER: If patient is less than 9 years of age and this is the first vaccine of Influenza to be received in any flu season, they should receive a second dose in one months time. Referring Provider: NICO DOMINGO) [[id number]] Allergies As of Date: 04/23/2018 Noted Allergy Reaction CODEINE 12/16/2014 14 - Other: See Comments Comments: Stopped breathing PENICILLINS 12/16/2014 4 - Hives Date Reviewed: 04/23/2018 Reviewed by: Leslee Singh Ma - Fully Assessed Reason for Visit: Recheck [92] Cmt: from UC and blood sugars Imm/Inj [58] Cmt: Flu Vaccine Reason For Visit History Recorded Primary Visit Diagnosis:Uncontrolled type 2 diabetes mellitus with hyperglycemia (HCC) [E11.65] Other Visit Diagnoses:Candidiasis [B37.9] Seasonal allergic rhinitis, unspecified trigger [J30.2] Microscopic hematuria [R31.29] Need for vaccination [Z23] Essential hypertension [I10] Cerebrovascular accident (CVA), unspecified mechanism (HCC) [I63.9] Hyperlipidemia, unspecified hyperlipidemia type [E78.5] Order(s):fluticasone (FLONASE) 50 mcg/actuation nasal sprayUse 2 Sprays in each nostril once daily. Rinse mouth after use.Disp: 1 BottleRfl: 5 insulin lispro (HUMALOG KWIKPEN INSULIN) 100 unit/mL inpnIf glucose under 200, take 25 units with each meal. If glucose is over 200, take 35 units with each meal.Disp: 5 PenRfl: 11 nystatin (MYCOSTATIN) powderApply 1 application to affected area four times daily.Disp: 1 BottleRfl: 5 fluconazole (DIFLUCAN) 150 mg tabletOne tablet weekly X 3.Disp: 3 tabletRfl: 0 HGB A1C [[id number]] Order #: [id number] FUTURE COMP METABOLIC PANEL [SQCMP] Order #: [id number] FUTURE LIPID PANEL, NONFASTING [SQLIPNF] Order #: [id number] FUTURE URINALYSIS WITH MICROSCOPIC [SQUAWMIC] Order #: [id number] FUTURE INFLUENZA SEASONAL HIGH DOSE AGE 65+ [[id number]] Order #: [id number] Prescriptions as of 04/23/2018 Sig: INSULIN LISPRO (U-100) 100 UN* If glucose under 200, take 25* ONETOUCH ULTRA BLUE TEST STRIP TESTS 3 TO 4 X DAILY DIREC* ATORVASTATIN 10 MG TABLET Take 1 tablet by mouth daily * EMPAGLIFLOZIN 25 MG TABLET Take 25 mg by mouth daily wit* METFORMIN 1,000 MG TABLET Take 1,000 mg by mouth twice * LINAGLIPTIN 5 MG TABLET Take by mouth. ISOSORBIDE MONONITRATE ER 30 * Take 1 tablet by mouth once d* PANTOPRAZOLE 40 MG TABLET,DEL* Take 1 tablet by mouth daily * PEN NEEDLE, DIABETIC 32 GAUGE* Use one needle for each dose,* LATANOPROST 0.005 % EYE DROPS Use 1 Drop in both eyes daily* FLUTICASONE 50 MCG/ACTUATION * Use 2 Sprays in each nostril * NYSTATIN 100,000 UNIT/GRAM TO* Apply 1 application to affect* FLUCONAZOLE 150 MG TABLET One tablet weekly X 3. LORATADINE 10 MG TABLET Take 1 tablet by mouth once d* CLINDAMYCIN HCL 150 MG CAPSULE Take 150 mg by mouth three ti* METFORMIN 500 MG TABLET TAKE 1 TABLET BY MOUTH TWICE * Patient not taking: Reported on 04/19/2018 Problem List As Of Date 04/23/2018 Noted Resolved Cutaneous abscess of abdominal wall [L02.211] INVALID FOR* DM (diabetes mellitus), type 2, uncontrolled (H*INVALID FOR* Priority: A More... COPD (chronic obstructive pulmonary disease) (H*INVALID FOR* Priority: A Restless leg syndrome [G25.81] INVALID FOR* Priority: B GERD (gastroesophageal reflux disease) [K21.9] INVALID FOR* Priority: A Depression [F32.9] INVALID FOR* Priority: A Generalized anxiety disorder [F41.1] INVALID FOR* Priority: A H/O TIA (transient ischemic attack) and stroke *INVALID FOR* Priority: A Family history of ischemic heart disease [Z82.4*INVALID FOR* Priority: F RA (rheumatoid arthritis) ([facility]) [M06.9] Priority: B Skin-picking disorder [F42.4] INVALID FOR* Chronic pain [G89.29] INVALID FOR* More... Essential hypertension [I10] INVALID FOR* Priority: A Bilateral leg edema [R60.0] INVALID FOR* Urinary incontinence [R32] INVALID FOR* Priority: B Mixed incontinence [N39.46] INVALID FOR* Type 2 diabetes mellitus with diabetic neuropat*INVALID FOR* Priority: A Tobacco use [Z72.0] INVALID FOR* Morbid obesity (HCC) [E66.01] INVALID FOR* Cerebrovascular accident (CVA) ([facility]) [I63.9] INVALID FOR* Other instructions from your clinician: 1. Use the fluconazole -- weekly X 3. 2. Use the nystatin powder up to 4 times daily. 3. Repeat urine in a week or two. 4. Get labs done about a week prior to appt with dr. Higgins. Prescriptions ordered this encounter Disp Refills Start End FLUTICASONE 50 MCG/ACTUATION NASAL S* 1 [employer]ani* 5 04/23/2018 Route: EACH NOSTRIL Sig: Use 2 Sprays in each nostril once daily. Rinse mouth after use. INSULIN LISPRO (U-100) 100 UNIT/ML S* 5 Pen 11 04/23/2018 Class: Med Update Sig: If glucose under 200, take 25 units with each meal. If glucose is over 200, take 35 units with each meal. NYSTATIN 100,000 UNIT/GRAM TOPICAL P* 1 [employer]ani* 5 04/23/2018 Route: TOPICAL Sig: Apply 1 application to affected area four times daily. FLUCONAZOLE 150 MG TABLET 3 ta* 0 04/23/2018 Sig: One tablet weekly X 3. Medications Discontinued During This Encounter fluticasone (FLONASE) 50 mcg/actuati* 1 [employer]ani* 0 03/06/2018 04/23/2018 Route: EACH NOSTRIL Sig: Use 2 Sprays in each nostril once daily. Rinse mouth after use. Disc: Other Insulin Lispro, Human, (HUMALOG KWIK* 5 Pen 11 08/31/2015 04/23/2018 Class: Print RX Sig: Inject insulin three times daily at first bite of food. Take none if BS below 130, 130-200: 2 units, 201-250: 3 units, 251-300: 5 units, 301-350: 6 units, call PCP if greater than 350. Disc: Reason for discontinue is not on file. Encounter Status:Closed by STEPHANIE PETE CNP on 04/23/18 PROGRESS Observed: 04/19/2018 Status: COMPLETED Source: [place] 12:13 PM [facility] REPOSITORY HNO ID: [id number] Author: Nico Domingo (Pa) Service: (none) Author Type: Physician Tube Drawer Type: Progress Notes Filed: 04/19/2018 12:17 PM Note Text: Subjective HPI Patient presents with chief complaint of dysuria for the past to 3 days. She states she has had vaginal itching and redness and when she urinates it griffin in that area. She states her blood sugars have been uncontrolled and sometimes are up in the 400s. She has been injected insulin that she does not like to take because it makes her nauseous. She's not sure the name of it. She is transitioning to Dr. Son but had been seeing for pcp. She does get yeast infections when her sugars are high. She has not checked her sugars in the past to 3 days. She denies fevers or chills. No back pain. No abdominal pain. Review of Systems Genitourinary: Positive for dysuria. Vaginal itching and redness All other systems reviewed and are negative. PAST MEDICAL HISTORY Diagnosis Date - COPD (chronic obstructive pulmonary disease) ([facility]) 02/09/2015 - Depression 02/09/2015 - DM (diabetes mellitus), type 2, uncontrolled ([facility]) 02/09/2015 - Generalized anxiety disorder 02/09/2015 - GERD (gastroesophageal reflux disease) 02/09/2015 - H/O TIA (transient ischemic attack) and stroke 02/09/2015 - HTN (hypertension) 02/09/2015 - Parkinsons ([facility]) - RA (rheumatoid arthritis) ([facility]) - Restless leg syndrome 02/09/2015 - Type 2 diabetes mellitus with diabetic neuropathy ([facility]) 02/09/2015 Current Outpatient Prescriptions: fluticasone (FLONASE) 50 mcg/actuation nasal spray Use 2 Sprays in each nostril once daily. Rinse mouth after use. Disp: 1 Bottle Rfl: 0 atorvastatin (LIPITOR) 10 mg tablet Take 1 tablet by mouth daily at bedtime. For cholesterol. Disp: Rfl: clindamycin (CLEOCIN) 150 mg capsule Take 150 mg by mouth three times daily. Disp: Rfl: empagliflozin (JARDIANCE) 25 mg tablet Take 25 mg by mouth daily with breakfast. Disp: Rfl: metFORMIN (GLUCOPHAGE) 1,000 mg tablet Take 1,000 mg by mouth twice daily with meals. Disp: Rfl: linagliptin (TRADJENTA) 5 mg tab Take by mouth. Disp: Rfl: isosorbide mononitrate ER (IMDUR) 30 mg 24 hr tablet Take 1 tablet by mouth once daily. Disp: 90 tablet Rfl: [address] (PROTONIX) 40 mg tablet Take 1 tablet by mouth daily before breakfast. Take on empty stomach, 1/2 hr before meal. Disp: 90 tablet Rfl: 0 Insulin Lispro, Human, (HUMALOG KWIKPEN) 100 unit/mL inpn Inject insulin three times daily at first bite of food. Take none if BS below 130, 130-200: 2 units, 201-250: 3 units, 251-300: 5 units, 301- 350: 6 units, call PCP if greater than 350. Disp: 5 Pen Rfl: 11 Insulin [place], Disposable, (JANET PEN NEEDLE) 32 gauge x 5/32 ndle Use one needle for each dose, 4 times daily. Disp: 150 Each Rfl: 11 latanoprost (XALATAN) 0.005 % ophthalmic solution Use 1 Drop in both eyes daily at bedtime. TO AFFECTED EYE(S) Disp: Rfl: 0 ONETOUCH ULTRA BLUE TEST STRIP test strip TESTS 3 TO 4 X DAILY DIRECTED DX: 11.9 PT IS INSULIN DEPENDENT Disp: Rfl: 11 fluconazole (DIFLUCAN) 150 mg tablet Take 1 tablet by mouth once daily for 3 days. Disp: 3 tablet Rfl: 0 loratadine (CLARITIN) 10 mg tablet Take 1 tablet by mouth once daily. Disp: 14 tablet Rfl: 11 metFORMIN (GLUCOPHAGE) 500 mg tablet TAKE 1 TABLET BY MOUTH TWICE DAILY WITH MEALS. (Patient not taking: Reported on 04/19/2018) Disp: 60 tablet Rfl: 3 No current facility-administered medications for this visit. PAST SURGICAL HISTORY Procedure Laterality Date - CARPAL TUNNEL Right - COLONOSCOP W/ OR W/O [facility] SPEC 03/16/2016 Colonoscopy - EGD W/O OR W/BRUSH/WASH 03/16/2016 EGD - I AND D, ABCESS COMPLEX MULTIP 01/2015 complex- lower abdominal, MRSA - PAST SURGICAL HISTORY OF 2013 cataracts both eyes - PAST SURGICAL HISTORY OF foot after injury- foreign body in foot FAMILY HISTORY Problem Relation Age of Onset - Diabetes Mother - Heart Father - Heart Mother - Cancer Brother - Cancer Sister - Diabetes Sister - Diabetes Sister - Heart Brother - Heart Brother - Heart Brother - Heart Brother - Heart Brother Social History Substance Use Topics - Smoking status: Current Every Day Smoker Packs/day: 0.20 Years: 37.00 Types: Cigarettes - Smokeless tobacco: Never Used Comment: 2-3 cigarettes per day - Alcohol use No BP 126/68 Pulse 92 Temp 36 ?C (96.8 ?F) (Right Tympanic) Resp 16 Wt 78.9 kg (174 lb) SpO2 98% BMI 32.88 kg/m? Objective Physical Exam Constitutional: She is oriented to person, place, and time and well-developed, well-nourished, and in no distress. HENT: Head: Normocephalic and atraumatic. Neck: Normal range of motion. Neck supple. Cardiovascular: Normal rate, regular rhythm and normal heart sounds. Pulmonary/Chest: Effort normal and breath sounds normal. Abdominal: Soft. Bowel sounds are normal. Neurological: She is alert and oriented to person, place, and time. Skin: Skin is warm and dry. Psychiatric: Affect and judgment normal. Nursing note and vitals reviewed. ASSESSMENT/PLAN: 1. Yeast vaginitis - ICD9: 112.1, ICD10: B37.3 (primary diagnosis) I will treat with Diflucan by mouth once a day for 3 days. I did calculate her creatinine clearance at 58 from her labs from January of this year so she she can have 100% dosage. Patient states the burning is when she starts urinating and she gets yeast infections when her sugars are high. I did send a UA for culture and will wait to treat for that based on culture. 2. Burning with urination - ICD9: 788.1, ICD10: R30.0 - UA DIP, URINE (POC) - URINE CULTURE 3. Glucosuria - ICD9: 791.5, ICD10: R81 Patient's blood sugars have been uncontrolled symptoms going into the 400s. I did make her appointment with the CHANGE MANAGEMENT MANAGER and family med as her establishing appointment is not until the end of May. Nico Domingo PA-C Observed: 04/19/2018 Status: F Source: [place] URINE CULTURE 11:56 AM [facility] REPOS[facility] Sp. Request/Comment: - Specimen received in preservative Culture Result - No growth (<1,000 CFU/ml) Performed By: #### URCUL #### [facility] [address] [place], [place] [address] CNOV Observed: 04/19/2018 Status: COMPLETED Source: [place] 11:00 AM [facility] REPOS[facility] Office Visit (WSTR) ANAHI MITCHELL ([id number]) 1945 F Date Time Provider Department 04/19/18 11:00 AM NICO DOMINGO) [facility] During your visit today, we recorded the following information about you: Temperature Pulse Respiration Blood pressure 96.8 degrees 92/minute 16/minute 126/68 Weight 78.9 kg Nico Domingo PA-C 04/19/2018 12:17 PM Signed Subjective HPI Patient presents with chief complaint of dysuria for the past to 3 days. She states she has had vaginal itching and redness and when she urinates it griffin in that area. She states her blood sugars have been uncontrolled and sometimes are up in the 400s. She has been injected insulin that she does not like to take because it makes her nauseous. She's not sure the name of it. She is transitioning to Dr. Son but had been seeing for pcp. She does get yeast infections when her sugars are high. She has not checked her sugars in the past to 3 days. She denies fevers or chills. No back pain. No abdominal pain. Review of Systems Genitourinary: Positive for dysuria. Vaginal itching and redness All other systems reviewed and are negative. PAST MEDICAL HISTORY Diagnosis Date - COPD (chronic obstructive pulmonary disease) ([facility]) 02/09/2015 - Depression 02/09/2015 - DM (diabetes mellitus), type 2, uncontrolled ([facility]) 02/09/2015 - Generalized anxiety disorder 02/09/2015 - GERD (gastroesophageal reflux disease) 02/09/2015 - H/O TIA (transient ischemic attack) and stroke 02/09/2015 - HTN (hypertension) 02/09/2015 - Parkinsons ([facility]) - RA (rheumatoid arthritis) ([facility]) - Restless leg syndrome 02/09/2015 - Type 2 diabetes mellitus with diabetic neuropathy ([facility]) 02/09/2015 Current Outpatient Prescriptions: fluticasone (FLONASE) 50 mcg/actuation nasal spray Use 2 Sprays in each nostril once daily. Rinse mouth after use. Disp: 1 Bottle Rfl: 0 atorvastatin (LIPITOR) 10 mg tablet Take 1 tablet by mouth daily at bedtime. For cholesterol. Disp: Rfl: clindamycin (CLEOCIN) 150 mg capsule Take 150 mg by mouth three times daily. Disp: Rfl: empagliflozin (JARDIANCE) 25 mg tablet Take 25 mg by mouth daily with breakfast. Disp: Rfl: metFORMIN (GLUCOPHAGE) 1,000 mg tablet Take 1,000 mg by mouth twice daily with meals. Disp: Rfl: linagliptin (TRADJENTA) 5 mg tab Take by mouth. Disp: Rfl: isosorbide mononitrate ER (IMDUR) 30 mg 24 hr tablet Take 1 tablet by mouth once daily. Disp: 90 tablet Rfl: [address] (PROTONIX) 40 mg tablet Take 1 tablet by mouth daily before breakfast. Take on empty stomach, 1/2 hr before meal. Disp: 90 tablet Rfl: 0 Insulin Lispro, Human, (HUMALOG KWIKPEN) 100 unit/mL inpn Inject insulin three times daily at first bite of food. Take none if BS below 130, 130-200: 2 units, 201-250: 3 units, 251-300: 5 units, 301-350: 6 units, call PCP if greater than 350. Disp: 5 Pen Rfl: 11 Insulin [place], Disposable, (JANET PEN NEEDLE) 32 gauge x 5/32 ndle Use one needle for each dose, 4 times daily. Disp: 150 Each Rfl: 11 latanoprost (XALATAN) 0.005 % ophthalmic solution Use 1 Drop in both eyes daily at bedtime. TO AFFECTED EYE(S) Disp: Rfl: 0 ONETOUCH ULTRA BLUE TEST STRIP test strip TESTS 3 TO 4 X DAILY DIRECTED DX: 11.9 PT IS INSULIN DEPENDENT Disp: Rfl: 11 fluconazole (DIFLUCAN) 150 mg tablet Take 1 tablet by mouth once daily for 3 days. Disp: 3 tablet Rfl: 0 loratadine (CLARITIN) 10 mg tablet Take 1 tablet by mouth once daily. Disp: 14 tablet Rfl: 11 metFORMIN (GLUCOPHAGE) 500 mg tablet TAKE 1 TABLET BY MOUTH TWICE DAILY WITH MEALS. (Patient not taking: Reported on 04/19/2018) Disp: 60 tablet Rfl: 3 No current facility-administered medications for this visit. PAST SURGICAL HISTORY Procedure Laterality Date - CARPAL TUNNEL Right - COLONOSCOP W/ OR W/O [facility] SPEC 03/16/2016 Colonoscopy - EGD W/O OR W/BRUSH/WASH 03/16/2016 EGD - I AND D, ABCESS COMPLEX MULTIP 01/2015 complex- lower abdominal, MRSA - PAST SURGICAL HISTORY OF 2013 cataracts both eyes - PAST SURGICAL HISTORY OF foot after injury- foreign body in foot FAMILY HISTORY Problem Relation Age of Onset - Diabetes Mother - Heart Father - Heart Mother - Cancer Brother - Cancer Sister - Diabetes Sister - Diabetes Sister - Heart Brother - Heart Brother - Heart Brother - Heart Brother - Heart Brother Social History Substance Use Topics - Smoking status: Current Every Day Smoker Packs/day: 0.20 Years: 37.00 Types: Cigarettes - Smokeless tobacco: Never Used Comment: 2-3 cigarettes per day - Alcohol use No BP 126/68 Pulse 92 Temp 36 ?C (96.8 ?F) (Right Tympanic) Resp 16 Wt 78.9 kg (174 lb) SpO2 98% BMI 32.88 kg/m? Objective Physical Exam Constitutional: She is oriented to person, place, and time and well-developed, well-nourished, and in no distress. HENT: Head: Normocephalic and atraumatic. Neck: Normal range of motion. Neck supple. Cardiovascular: Normal rate, regular rhythm and normal heart sounds. Pulmonary/Chest: Effort normal and breath sounds normal. Abdominal: Soft. Bowel sounds are normal. Neurological: She is alert and oriented to person, place, and time. Skin: Skin is warm and dry. Psychiatric: Affect and judgment normal. Nursing note and vitals reviewed. ASSESSMENT/PLAN: 1. Yeast vaginitis - ICD9: 112.1, ICD10: B37.3 (primary diagnosis) I will treat with Diflucan by mouth once a day for 3 days. I did calculate her creatinine clearance at 58 from her labs from January of this year so she she can have 100% dosage. Patient states the burning is when she starts urinating and she gets yeast infections when her sugars are high. I did send a UA for culture and will wait to treat for that based on culture. 2. Burning with urination - ICD9: 788.1, ICD10: R30.0 - UA DIP, URINE (POC) - URINE CULTURE 3. Glucosuria - ICD9: 791.5, ICD10: R81 Patient's blood sugars have been uncontrolled symptoms going into the 400s. I did make her appointment with the CHANGE MANAGEMENT MANAGER and family med as her establishing appointment is not until the end of May. Nico Domingo PA-C Referring Provider: SELF [[id number]] Allergies As of Date: 04/19/2018 Noted Allergy Reaction CODEINE 12/16/2014 14 - Other: See Comments Comments: Stopped breathing PENICILLINS 12/16/2014 4 - Hives Date Reviewed: 04/19/2018 Reviewed by: Ashley Coombs Ma - Fully Assessed Reason for Visit: uti symptoms [Other] Cmt: x 1 week Primary Visit Diagnosis:Yeast vaginitis [B37.3] Other Visit Diagnoses:Burning with urination [R30.0] Glucosuria [R81] Order(s):UA DIP, URINE (POC) [[id number]] Order #: [id number]. #:[id number] [id number] CULTURE [[facility]] Order #: [id number] fluconazole (DIFLUCAN) 150 mg tabletTake 1 tablet by mouth once daily for 3 days.Disp: 3 tabletRfl: 0 loratadine (CLARITIN) 10 mg tabletTake 1 tablet by mouth once daily.Disp: 14 tabletRfl: 11 Prescriptions as of 04/19/2018 Sig: FLUTICASONE 50 MCG/ACTUATION * Use 2 Sprays in each nostril * ATORVASTATIN 10 MG TABLET Take 1 tablet by mouth daily * CLINDAMYCIN HCL 150 MG CAPSULE Take 150 mg by mouth three ti* EMPAGLIFLOZIN 25 MG TABLET Take 25 mg by mouth daily wit* METFORMIN 1,000 MG TABLET Take 1,000 mg by mouth twice * LINAGLIPTIN 5 MG TABLET Take by mouth. ISOSORBIDE MONONITRATE ER 30 * Take 1 tablet by mouth once d* PANTOPRAZOLE 40 MG TABLET,DEL* Take 1 tablet by mouth daily * INSULIN LISPRO (U-100) 100 UN* Inject insulin three times da* PEN NEEDLE, DIABETIC 32 GAUGE* Use one needle for each dose,* LATANOPROST 0.005 % EYE DROPS Use 1 Drop in both eyes daily* ONETOUCH ULTRA BLUE TEST STRIP TESTS 3 TO 4 X DAILY DIREC* FLUCONAZOLE 150 MG TABLET Take 1 tablet by mouth once d* LORATADINE 10 MG TABLET Take 1 tablet by mouth once d* METFORMIN 500 MG TABLET TAKE 1 TABLET BY MOUTH TWICE * Patient not taking: Reported on 04/19/2018 Problem List As Of Date 04/19/2018 Noted Resolved Cutaneous abscess of abdominal wall [L02.211] INVALID FOR* DM (diabetes mellitus), type 2, uncontrolled (H*INVALID FOR* Priority: A More... COPD (chronic obstructive pulmonary disease) (H*INVALID FOR* Priority: A Restless leg syndrome [G25.81] INVALID FOR* Priority: B GERD (gastroesophageal reflux disease) [K21.9] INVALID FOR* Priority: A Depression [F32.9] INVALID FOR* Priority: A Generalized anxiety disorder [F41.1] INVALID FOR* Priority: A H/O TIA (transient ischemic attack) and stroke *INVALID FOR* Priority: A Family history of ischemic heart disease [Z82.4*INVALID FOR* Priority: F RA (rheumatoid arthritis) ([facility]) [M06.9] Priority: B Skin-picking disorder [F42.4] INVALID FOR* Chronic pain [G89.29] INVALID FOR* More... Essential hypertension [I10] INVALID FOR* Priority: A Bilateral leg edema [R60.0] INVALID FOR* Urinary incontinence [R32] INVALID FOR* Priority: B Mixed incontinence [N39.46] INVALID FOR* Type 2 diabetes mellitus with diabetic neuropat*INVALID FOR* Priority: A Tobacco use [Z72.0] INVALID FOR* Morbid obesity ([facility]) [E66.01] INVALID FOR* Cerebrovascular accident (CVA) ([facility]) [I63.9] INVALID FOR* Prescriptions ordered this encounter Disp Refills Start End FLUCONAZOLE 150 MG TABLET 3 ta* 0 04/19/2018 04/22/2018 Route: ORAL Sig: Take 1 tablet by mouth once daily for 3 days. LORATADINE 10 MG TABLET 14 t* 11 04/19/2018 Route: ORAL Sig: Take 1 tablet by mouth once daily. Encounter Status:Closed by NICO DOMINGO PA-C on 04/19/18 PROGRESS Observed: 03/06/2018 Status: COMPLETED Source: [place] 1:27 PM [facility] REPOSITORY O ID: [id number] Author: Nico Domingo (Pa) Service: (none) Author Type: Physician Tube Drawer Type: Progress Notes Filed: 03/06/2018 1:35 PM Note Text: Subjective HPI Pt presents with a skin tear x 3 days ago on right wrist. She had bumped her arm and caused a skin tear. She noticed some red around it so came in for evaluation. She has been putting bacitracin on it. No fever or chills. No discharge. Pt also has some congestion and nasal drainage she would like addressed. She has a chronic cough as well. She was treated with clindamycin recently 02/19 for respiratory infection. Review of Systems HENT: Positive for congestion and sinus pain. Skin: Skin tear right wrist All other systems reviewed and are negative. PAST MEDICAL HISTORY Diagnosis Date - COPD (chronic obstructive pulmonary disease) ([facility]) 02/09/2015 - Depression 02/09/2015 - DM (diabetes mellitus), type 2, uncontrolled ([facility]) 02/09/2015 - Generalized anxiety disorder 02/09/2015 - GERD (gastroesophageal reflux disease) 02/09/2015 - H/O TIA (transient ischemic attack) and stroke 02/09/2015 - HTN (hypertension) 02/09/2015 - Parkinsons ([facility]) - RA (rheumatoid arthritis) ([facility]) - Restless leg syndrome 02/09/2015 - Type 2 diabetes mellitus with diabetic neuropathy ([facility]) 02/09/2015 Current Outpatient Prescriptions: atorvastatin (LIPITOR) 10 mg tablet Take 1 tablet by mouth daily at bedtime. For cholesterol. Disp: Rfl: clindamycin (CLEOCIN) 150 mg capsule Take 150 mg by mouth three times daily. Disp: Rfl: empagliflozin (JARDIANCE) 25 mg tablet Take 25 mg by mouth daily with breakfast. Disp: Rfl: metFORMIN (GLUCOPHAGE) 1,000 mg tablet Take 1,000 mg by mouth twice daily with meals. Disp: Rfl: linagliptin (TRADJENTA) 5 mg tab Take by mouth. Disp: Rfl: metFORMIN (GLUCOPHAGE) 500 mg tablet TAKE 1 TABLET BY MOUTH TWICE DAILY WITH MEALS. Disp: 60 tablet Rfl: 3 isosorbide mononitrate ER (IMDUR) 30 mg 24 hr tablet Take 1 tablet by mouth once daily. Disp: 90 tablet Rfl: [address] (PROTONIX) 40 mg tablet Take 1 tablet by mouth daily before breakfast. Take on empty stomach, 1/2 hr before meal. Disp: 90 tablet Rfl: 0 Insulin Lispro, Human, (HUMALOG KWIKPEN) 100 unit/mL inpn Inject insulin three times daily at first bite of food. Take none if BS below 130, 130-200: 2 units, 201-250: 3 units, 251-300: 5 units, 301- 350: 6 units, call PCP if greater than 350. Disp: 5 Pen Rfl: 11 Insulin [place], Disposable, (JANET PEN NEEDLE) 32 gauge x 5/32 ndle Use one needle for each dose, 4 times daily. Disp: 150 Each Rfl: 11 latanoprost (XALATAN) 0.005 % ophthalmic solution Use 1 Drop in both eyes daily at bedtime. TO AFFECTED EYE(S) Disp: Rfl: 0 mupirocin (BACTROBAN) 2 % cream Apply 1 application to affected area three times daily for 10 days. Location: forearm Disp: 15 g Rfl: 0 fluticasone (FLONASE) 50 mcg/actuation nasal spray Use 2 Sprays in each nostril once daily. Rinse mouth after use. Disp: 1 Bottle Rfl: 0 cetirizine (ZYRTEC) 10 mg tablet Take 1 tablet by mouth once daily for 14 days. Disp: 14 tablet Rfl: 0 No current facility-administered medications for this visit. PAST SURGICAL HISTORY Procedure Laterality Date - CARPAL TUNNEL Right - COLONOSCOP W/ OR W/O [facility] SPEC 03/16/2016 Colonoscopy - EGD W/O OR W/BRUSH/WASH 03/16/2016 EGD - I AND D, ABCESS COMPLEX MULTIP 01/2015 complex- lower abdominal, MRSA - PAST SURGICAL HISTORY OF 2013 cataracts both eyes - PAST SURGICAL HISTORY OF foot after injury- foreign body in foot FAMILY HISTORY Problem Relation Age of Onset - Diabetes Mother - Heart Father - Heart Mother - Cancer Brother - Cancer Sister - Diabetes Sister - Diabetes Sister - Heart Brother - Heart Brother - Heart Brother - Heart Brother - Heart Brother Social History Substance Use Topics - Smoking status: Current Every Day Smoker Packs/day: 0.20 Years: 37.00 Types: Cigarettes - Smokeless tobacco: Never Used Comment: 2-3 cigarettes per day - Alcohol use No BP 112/70 Pulse 80 Temp 36.1 ?C (96.9 ?F) (Tympanic) Resp 16 Wt 78.5 kg (173 lb) BMI 32.69 kg/m? Objective Physical Exam Constitutional: She is oriented to person, place, and time and well-developed, well-nourished, and in no distress. HENT: Head: Normocephalic and atraumatic. Right Ear: Tympanic membrane, external ear and ear canal normal. Left Ear: Tympanic membrane, external ear and ear canal normal. Nose: Mucosal edema and rhinorrhea present. Right sinus exhibits no maxillary sinus tenderness and no frontal sinus tenderness. Left sinus exhibits no maxillary sinus tenderness and no frontal sinus tenderness. Mouth/Throat: Uvula is midline, oropharynx is clear and moist and mucous membranes are normal. Cardiovascular: Normal rate, regular rhythm and normal heart sounds. Pulmonary/Chest: Effort normal and breath sounds normal. Neurological: She is alert and oriented to person, place, and time. Skin: Skin is warm and dry. Pt has healing skin tear with mild redness on distal dorsal forearm. No sign of cellulitis. Redness appears consistent with healing around wound rather than infection. Psychiatric: Affect and judgment normal. Nursing note and vitals reviewed. ASSESSMENT/PLAN: 1. Seasonal allergic rhinitis due to other allergic trigger - ICD9: 477.8, ICD10: J30.89 (primary diagnosis) Will give zyrtec, and flonase. 2. Skin tear of right forearm without complication, initial encounter - ICD9: 881.00, ICD10: S51.811A Will give mupirocin topically, appears to be healing well. JACKIE Perez Observed: 03/06/2018 Status: COMPLETED Source: [place] 11:15 AM [facility] REPOS[facility] Office Visit (WSTR) ANAHI MITCHELL ([id number]) 1945 F Date Time Provider Department 03/06/18 11:15 AM NICO DOMINGO) [facility] During your visit today, we recorded the following information about you: Temperature Pulse Respiration Blood pressure 96.9 degrees 80/minute 16/minute 112/70 Weight 78.5 kg Nico Domingo PA-C 03/06/2018 1:35 PM Signed Subjective HPI Pt presents with a skin tear x 3 days ago on right wrist. She had bumped her arm and caused a skin tear. She noticed some red around it so came in for evaluation. She has been putting bacitracin on it. No fever or chills. No discharge. Pt also has some congestion and nasal drainage she would like addressed. She has a chronic cough as well. She was treated with clindamycin recently 02/19 for respiratory infection. Review of Systems HENT: Positive for congestion and sinus pain. Skin: Skin tear right wrist All other systems reviewed and are negative. PAST MEDICAL HISTORY Diagnosis Date - COPD (chronic obstructive pulmonary disease) ([facility]) 02/09/2015 - Depression 02/09/2015 - DM (diabetes mellitus), type 2, uncontrolled ([facility]) 02/09/2015 - Generalized anxiety disorder 02/09/2015 - GERD (gastroesophageal reflux disease) 02/09/2015 - H/O TIA (transient ischemic attack) and stroke 02/09/2015 - HTN (hypertension) 02/09/2015 - Parkinsons ([facility]) - RA (rheumatoid arthritis) ([facility]) - Restless leg syndrome 02/09/2015 - Type 2 diabetes mellitus with diabetic neuropathy ([facility]) 02/09/2015 Current Outpatient Prescriptions: atorvastatin (LIPITOR) 10 mg tablet Take 1 tablet by mouth daily at bedtime. For cholesterol. Disp: Rfl: clindamycin (CLEOCIN) 150 mg capsule Take 150 mg by mouth three times daily. Disp: Rfl: empagliflozin (JARDIANCE) 25 mg tablet Take 25 mg by mouth daily with breakfast. Disp: Rfl: metFORMIN (GLUCOPHAGE) 1,000 mg tablet Take 1,000 mg by mouth twice daily with meals. Disp: Rfl: linagliptin (TRADJENTA) 5 mg tab Take by mouth. Disp: Rfl: metFORMIN (GLUCOPHAGE) 500 mg tablet TAKE 1 TABLET BY MOUTH TWICE DAILY WITH MEALS. Disp: 60 tablet Rfl: 3 isosorbide mononitrate ER (IMDUR) 30 mg 24 hr tablet Take 1 tablet by mouth once daily. Disp: 90 tablet Rfl: [address] (PROTONIX) 40 mg tablet Take 1 tablet by mouth daily before breakfast. Take on empty stomach, 1/2 hr before meal. Disp: 90 tablet Rfl: 0 Insulin Lispro, Human, (HUMALOG KWIKPEN) 100 unit/mL inpn Inject insulin three times daily at first bite of food. Take none if BS below 130, 130-200: 2 units, 201-250: 3 units, 251-300: 5 units, 301-350: 6 units, call PCP if greater than 350. Disp: 5 Pen Rfl: 11 Insulin [place], Disposable, (JANET PEN NEEDLE) 32 gauge x 5/32 ndle Use one needle for each dose, 4 times daily. Disp: 150 Each Rfl: 11 latanoprost (XALATAN) 0.005 % ophthalmic solution Use 1 Drop in both eyes daily at bedtime. TO AFFECTED EYE(S) Disp: Rfl: 0 mupirocin (BACTROBAN) 2 % cream Apply 1 application to affected area three times daily for 10 days. Location: forearm Disp: 15 g Rfl: 0 fluticasone (FLONASE) 50 mcg/actuation nasal spray Use 2 Sprays in each nostril once daily. Rinse mouth after use. Disp: 1 Bottle Rfl: 0 cetirizine (ZYRTEC) 10 mg tablet Take 1 tablet by mouth once daily for 14 days. Disp: 14 tablet Rfl: 0 No current facility-administered medications for this visit. PAST SURGICAL HISTORY Procedure Laterality Date - CARPAL TUNNEL Right - COLONOSCOP W/ OR W/O [facility] SPEC 03/16/2016 Colonoscopy - EGD W/O OR W/BRUSH/WASH 03/16/2016 EGD - I AND D, ABCESS COMPLEX MULTIP 01/2015 complex- lower abdominal, MRSA - PAST SURGICAL HISTORY OF 2013 cataracts both eyes - PAST SURGICAL HISTORY OF foot after injury- foreign body in foot FAMILY HISTORY Problem Relation Age of Onset - Diabetes Mother - Heart Father - Heart Mother - Cancer Brother - Cancer Sister - Diabetes Sister - Diabetes Sister - Heart Brother - Heart Brother - Heart Brother - Heart Brother - Heart Brother Social History Substance Use Topics - Smoking status: Current Every Day Smoker Packs/day: 0.20 Years: 37.00 Types: Cigarettes - Smokeless tobacco: Never Used Comment: 2-3 cigarettes per day - Alcohol use No BP 112/70 Pulse 80 Temp 36.1 ?C (96.9 ?F) (Tympanic) Resp 16 Wt 78.5 kg (173 lb) BMI 32.69 kg/m? Objective Physical Exam Constitutional: She is oriented to person, place, and time and well-developed, well-nourished, and in no distress. HENT: Head: Normocephalic and atraumatic. Right Ear: Tympanic membrane, external ear and ear canal normal. Left Ear: Tympanic membrane, external ear and ear canal normal. Nose: Mucosal edema and rhinorrhea present. Right sinus exhibits no maxillary sinus tenderness and no frontal sinus tenderness. Left sinus exhibits no maxillary sinus tenderness and no frontal sinus tenderness. Mouth/Throat: Uvula is midline, oropharynx is clear and moist and mucous membranes are normal. Cardiovascular: Normal rate, regular rhythm and normal heart sounds. Pulmonary/Chest: Effort normal and breath sounds normal. Neurological: She is alert and oriented to person, place, and time. Skin: Skin is warm and dry. Pt has healing skin tear with mild redness on distal dorsal forearm. No sign of cellulitis. Redness appears consistent with healing around wound rather than infection. Psychiatric: Affect and judgment normal. Nursing note and vitals reviewed. ASSESSMENT/PLAN: 1. Seasonal allergic rhinitis due to other allergic trigger - ICD9: 477.8, ICD10: J30.89 (primary diagnosis) Will give zyrtec, and flonase. 2. Skin tear of right forearm without complication, initial encounter - ICD9: 881.00, ICD10: S51.811A Will give mupirocin topically, appears to be healing well. Nico Domingo PA-C Referring Provider: SELF [[id number]] Allergies As of Date: 03/06/2018 Noted Allergy Reaction CODEINE 12/16/2014 14 - Other: See Comments Comments: Stopped breathing PENICILLINS 12/16/2014 4 - Hives Date Reviewed: 03/06/2018 Reviewed by: Jessenia Hall LPN - Fully Assessed Reason for Visit: skin tear [Other] Cmt: right wrist tear X 3 days ago, area is red AND tender Primary Visit Diagnosis:Seasonal allergic rhinitis due to other allergic trigger [J30.89] Other Visit Diagnosis:Skin tear of right forearm without complication, initial encounter [S51.811A] Order(s):mupirocin (BACTROBAN) 2 % creamApply 1 application to affected area three times daily for 10 days. Location: forearmDisp: 15 gRfl: 0 fluticasone (FLONASE) 50 mcg/actuation nasal sprayUse 2 Sprays in each nostril once daily. Rinse mouth after use.Disp: 1 BottleRfl: 0 cetirizine (ZYRTEC) 10 mg tabletTake 1 tablet by mouth once daily for 14 days.Disp: 14 tabletRfl: 0 Prescriptions as of 03/06/2018 Sig: ATORVASTATIN 10 MG TABLET Take 1 tablet by mouth daily * CLINDAMYCIN HCL 150 MG CAPSULE Take 150 mg by mouth three ti* EMPAGLIFLOZIN 25 MG TABLET Take 25 mg by mouth daily wit* METFORMIN 1,000 MG TABLET Take 1,000 mg by mouth twice * LINAGLIPTIN 5 MG TABLET Take by mouth. METFORMIN 500 MG TABLET TAKE 1 TABLET BY MOUTH TWICE * ISOSORBIDE MONONITRATE ER 30 * Take 1 tablet by mouth once d* PANTOPRAZOLE 40 MG TABLET,DEL* Take 1 tablet by mouth daily * INSULIN LISPRO (U-100) 100 UN* Inject insulin three times da* PEN NEEDLE, DIABETIC 32 GAUGE* Use one needle for each dose,* LATANOPROST 0.005 % EYE DROPS Use 1 Drop in both eyes daily* MUPIROCIN 2 % TOPICAL CREAM Apply 1 application to affect* FLUTICASONE 50 MCG/ACTUATION * Use 2 Sprays in each nostril * CETIRIZINE 10 MG TABLET Take 1 tablet by mouth once d* Problem List As Of Date 03/06/2018 Noted Resolved Cutaneous abscess of abdominal wall [L02.211] INVALID FOR* DM (diabetes mellitus), type 2, uncontrolled (H*INVALID FOR* Priority: A More... COPD (chronic obstructive pulmonary disease) (H*INVALID FOR* Priority: A Restless leg syndrome [G25.81] INVALID FOR* Priority: B GERD (gastroesophageal reflux disease) [K21.9] INVALID FOR* Priority: A Depression [F32.9] INVALID FOR* Priority: A Generalized anxiety disorder [F41.1] INVALID FOR* Priority: A H/O TIA (transient ischemic attack) and stroke *INVALID FOR* Priority: A Family history of ischemic heart disease [Z82.4*INVALID FOR* Priority: F RA (rheumatoid arthritis) (FORM[facility]LY [facility]) [M06.9] Priority: B Skin-picking disorder [F42.4] INVALID FOR* Chronic pain [G89.29] INVALID FOR* More... Essential hypertension [I10] INVALID FOR* Priority: A Bilateral leg edema [R60.0] INVALID FOR* Urinary incontinence [R32] INVALID FOR* Priority: B Mixed incontinence [N39.46] INVALID FOR* Type 2 diabetes mellitus with diabetic neuropat*INVALID FOR* Priority: A Tobacco use [Z72.0] INVALID FOR* Morbid obesity (HCC) [E66.01] INVALID FOR* Cerebrovascular accident (CVA) (HCC) [I63.9] INVALID FOR* Prescriptions ordered this encounter Disp Refills Start End MUPIROCIN 2 % TOPICAL CREAM 15 g 0 03/06/2018 03/16/2018 Route: TOPICAL Sig: Apply 1 application to affected area three times daily for 10 days. Location: forearm FLUTICASONE 50 MCG/ACTUATION NASAL S* 1 [employer]* 0 03/06/2018 Route: EACH NOSTRIL Sig: Use 2 Sprays in each nostril once daily. Rinse mouth after use. CETIRIZINE 10 MG TABLET 14 t* 0 03/06/2018 03/20/2018 Route: ORAL Sig: Take 1 tablet by mouth once daily for 14 days. Encounter Status:Closed by NICO DOMINGO PA-C on 03/06/18 COMP METABOLIC PANEL Collected: 02/19/2018 Status: F Source: [place] 8:32 AM [facility] REPOSITORY TYPE CODE TESTS RESULT OUT OF REFERENCE UNITS RANGE LAB TP 6.3-8.0 g/dL Protein, Total 6.8 LAB ALB 3.9-4.9 g/dL Albumin 4.0 LAB CA 8.5-10.2 mg/dL Calcium, Total 9.7 LAB TBIL 0.2-1.3 mg/dL Bilirubin, Total 0.3 LAB ALKP 32-117 U/L Alkaline Phosphatase 48 LAB AST 13-35 U/L AST 15 LAB GLU 74-99 mg/dL Glucose High 114 Result Comment: The [place] [employer] (ADA) provides guidance for cutoff values for fasting glucose and random glucose. The ADA defines fasting as no caloric intake for at least 8 hours. Fas ting plasma glucose results between 100 to 125 mg/dL indicate increased risk for diabetes (prediabetes). Fasting plasma glucose results greater than or equal to 126 mg/dL meet the criteria for diagnosis of diabetes. In the absence of unequivocal hyperglycemia, results should be confirmed by repeat testing. In a patient with classic symptoms of hyperglycemia or hyperglycemic crisis, random plasma glucose results greater than or equal to 200 mg/dL meet the criteria for diagnosis of diabetes. Reference: Standards of Medical Care in Diabetes 2016, [place] [employer]. Diabetes Care. 2016.39(Suppl 1). LAB BUN 7-21 mg/dL BUN High 23 LAB CRET 0.58-0.96 mg/dL Creatinine High 1.11 LAB NA 136-144 mmol/L Sodium 142 LAB K 3.7-5.1 mmol/L Potassium 4.2 LAB CL 97-105 mmol/L Chloride 99 LAB CO2 22-30 mmol/L CO2 28 LAB AGAP 9-18 mmol/L Anion Gap 15 LAB ALT 7-38 U/L ALT 13 LAB GFRAA eGFR- Amer. 58 LAB GFRNAA . eGFR-All Other Races 48 Result Comment: eGFR (Estimated GFR) Units of measure: mL/min/1.73 meters squared eGFR is derived from the reexpressed MDRD Study equation using the following parameters: serum creatinine, age, gender and race. The creatinine assay has been calibrated to be traceable to IDMS. An eGFR <60 mL/min/1.73m2 for >3 months is consistent with chronic kidney disease. Refer to KDOQI guidelines for clinical interpretation. In patients with unstable renal function, e.g. those with acute kidney injury, the eGFR may not accurately reflect actual GFR. Performed By: #### CMP, LIPNF, HBA1C #### [facility] [address] [place], [place] [address] LIPID PANEL, NONFAST Collected: 02/19/2018 Status: F Source: [place] 8:32 AM [facility] REPOSITORY TYPE CODE TESTS RESULT OUT OF REFERENCE UNITS RANGE LAB CHOLNF <200 mg/dL Total High Cholesterol NF 202 Result Comment: <200 mg/dL, Desirable 200-239 mg/dL, Borderline high >239 mg/dL, High LAB TRIGNF <150 mg/dL Triglycerides, NF High 190 Result Comment: <150 mg/dL, Normal 150-199 mg/dL, Borderline high 200-499 mg/dL, High >499 mg/dL, Very high LAB HDLNF >39 mg/dL HDL Cholesterol, NF 44 Result Comment: 40-59 mg/dL, Acceptable >59 mg/dL, High: Negative risk factor for coronary heart disease <40 mg/dL, Low: Positive risk factor for coronary heart disease LAB LDLNF <100 mg/dL LDL Cholesterol, High NF 120 Result Comment: <100 mg/dL, Optimal 100-129 mg/dL, Near optimal/above optimal 130-159 mg/dL, Borderline high 160-189 mg/dL, High >189 mg/dL, Very high Secondary prevention optimal LDL Cholesterol levels are recommended to be < 70 mg/dL LAB NOHDLN <130 mg/dL High Non HDL Chol, 158 NF Result Comment: <130 mg/dL, Optimal 130-159 mg/dL, Near optimal/above optimal 160-189 mg/dL, Borderline high 190-219 mg/dL, High >219 mg/dL, Very high Secondary prevention optimal non HDL Cholesterol levels are recommended to be < 100 mg/dL LAB VLDLNF <30 mg/dL VLDL Cholesterol, High NF 38 LAB TCHDLN <5.10 mg/dL T Chol/HDL Ratio NF 4.59 LAB LDLHDN <2.54 mg/dL LDL/HDL Ratio, NF High 2.73 Result Comment: Reference: 1. National Cholesterol Education Program ATP III Guideline At-A-Glance Quick Desk Reference: National Heart, Lung, and Blood [place]. National Institutes of Health. 2001: NIH Publication No. 01-3305. 2. An International Atherosclerosis Society position paper: global recommendations for the management of dyslipidemia: executive summary, Atherosclerosis. 2014: 232(2):410-413. Performed By: #### CMP, LIPNF, HBA1C #### [facility] [address] [place], [place] [address] HEMOGLOBIN A1C Collected: 02/19/2018 Status: F Source: [facility] 8:32 AM [facility] REPOS[facility] TYPE CODE TESTS RESULT OUT OF REFERENCE UNITS RANGE LAB HGBA1C 4.3-5.6 % High Hemoglobin A1c 14.3 LAB HBA0 mg/dL Est. Average Glucose 364 Result Comment: eAG: (Estimated average glucose) is a calculated value from HgbA1c and is textile designs sales representative of the average blood glucose level in the last 2-3 month period. Performed By: #### CMP, LIPNF, HBA1C #### [facility] [address] [place], [place] [address] PROGRESS Observed: 02/19/2018 Status: COMPLETED Source: [place] 7:58 AM [facility] REPOSITORY HNO ID: [id number] Author: Stephanie Pete Service: (none) Author Type: Nurse Practitioner Type: Progress Notes Filed: 02/19/2018 1:54 PM Note Text: This is a 72 year old female who presents today with: Patient presents with: Medication Follow-up HISTORY OF PRESENT ILLNESS: Anahi Mitchell is a 72 year old female. Patient presents with: Medication Follow-up Pt actually presents today because of being sick. Started Monday night. Had been in the ER prior with what she describes as a perineal boil vs abscess. They started her on clindamycin (and she reports this is improved). Was in urgent care in 02/15 with URI symptoms. She has head congestion. She was started on bromphed and prednisone in urgent care. Refers that she has a lot of head congestion. She is expectorating green mucus from her nose. + sore throat. No ear pain. + cough. + chills. + smoker. Her med list was reviewed and updated. She self-stopped a lot of her medications (lipitor, sertraline, and plavix). She reports a hx of CVA. Discussed the benefits of being on these medications. Refers that she bruised too much with the plavix. Last seen by Dr. Alexis 3-4 months ago. She reports that her sugars have been out of control, running 200-500. Refers her medications were adjusted. In addition to her current medications, reports that she is on another injectable diabetic mediation that was making her sick. She desires to get established with another PCP. PAST MEDICAL HISTORY: PAST MEDICAL HISTORY Diagnosis Date - COPD (chronic obstructive pulmonary disease) ([facility]) 02/09/2015 - Depression 02/09/2015 - DM (diabetes mellitus), type 2, uncontrolled ([facility]) 02/09/2015 - Generalized anxiety disorder 02/09/2015 - GERD (gastroesophageal reflux disease) 02/09/2015 - H/O TIA (transient ischemic attack) and stroke 02/09/2015 - HTN (hypertension) 02/09/2015 - Parkinsons ([facility]) - RA (rheumatoid arthritis) ([facility]) - Restless leg syndrome 02/09/2015 - Type 2 diabetes mellitus with diabetic neuropathy ([facility]) 02/09/2015 PAST SURGICAL HISTORY Procedure Laterality Date - CARPAL TUNNEL Right - COLONOSCOP W/ OR W/O BRSH SPEC 03/16/2016 Colonoscopy - EGD W/O OR W/BRUSH/WASH 03/16/2016 EGD - I AND D, ABCESS COMPLEX MULTIP 01/2015 complex- lower abdominal, MRSA - PAST SURGICAL HISTORY OF 2013 cataracts both eyes - PAST SURGICAL HISTORY OF foot after injury- foreign body in foot ALLERGIES Codeine; Penicillins MEDICATIONS Current Outpatient Prescriptions: clindamycin (CLEOCIN) 150 mg capsule Take 150 mg by mouth three times daily. empagliflozin (JARDIANCE) 25 mg tablet Take 25 mg by mouth daily with breakfast. metFORMIN (GLUCOPHAGE) 1,000 mg tablet Take 1,000 mg by mouth twice daily with meals. linagliptin (TRADJENTA) 5 mg tab Take by mouth. famotidine (PEPCID) 40 mg tablet Take 40 mg by mouth once daily. predniSONE (DELTASONE) 20 mg tablet Take 2 tablets by mouth once daily for 5 days. Take daily with food. Imoodybglknilse-Vujuytfbw-LA (BROMFED DM) 2-30-10 mg/5 mL syrup Take 10 mL by mouth four times daily as needed for up to 7 days. metFORMIN (GLUCOPHAGE) 500 mg tablet TAKE 1 TABLET BY MOUTH TWICE DAILY WITH MEALS. isosorbide mononitrate ER (IMDUR) 30 mg 24 hr tablet Take 1 tablet by mouth once daily. pantoprazole DR (PROTONIX) 40 mg tablet Take 1 tablet by mouth daily before breakfast. Take on empty stomach, 1/2 hr before meal. clopidogrel (PLAVIX) 75 mg tablet Take 1 tablet by mouth once daily. sertraline (ZOLOFT) 100 mg tablet Take 2 tablets by mouth once daily. atorvastatin (LIPITOR) 10 mg tablet Take 1 tablet by mouth daily at bedtime. Insulin Lispro, Human, (HUMALOG KWIKPEN) 100 unit/mL inpn Inject insulin three times daily at first bite of food. Take none if BS below 130, 130-200: 2 units, 201-250: 3 units, 251-300: 5 units, 301- 350: 6 units, call PCP if greater than 350. Insulin [place], Disposable, (JANET PEN NEEDLE) 32 gauge x 5/32 ndle Use one needle for each dose, 4 times daily. insulin detemir (LEVEMIR) 100 unit/mL injection Inject 70 Units subcutaneously twice daily. latanoprost (XALATAN) 0.005 % ophthalmic solution Use 1 Drop in both eyes daily at bedtime. TO AFFECTED EYE(S) No current facility-administered medications for this visit. FAMILY HISTORY Problem Relation Age of Onset - Diabetes Mother - Heart Father - Heart Mother - Cancer Brother - Cancer Sister - Diabetes Sister - Diabetes Sister - Heart Brother - Heart Brother - Heart Brother - Heart Brother - Heart Brother Social History Marital status: Spouse name: Years of education: Number of children: Social History Main Topics Smoking status: Current Every Day Smoker Packs/day: 0.20 Years: 37.00 Types: Cigarettes Smokeless tobacco: Never Used Comment: 2-3 cigarettes per day Alcohol use: No Drug use: No EXAM: BP 136/78 (BP Site: Right Arm, BP Position: Sitting, BP Cuff Size: Regular Adult) Pulse 86 Temp 37 ?C (98.6 ?F) (Right Tympanic) Resp 12 Wt 80.7 kg (178 lb) SpO2 99% BMI 33.63 kg/m? PHYSICAL EXAM: General Appearance: Well appearing, alert, in no acute distress, well-hydrated, well nourished.. Skin: Skin color, texture, turgor normal, no suspicious rashes or lesions. Head: Normocephalic, no masses, lesions, tenderness or abnormalities. Eyes: Anicteric sclera. Pupils are equally round and reactive to light. Extraocular movements are intact. Ears: External ears normal, canals clear, Normal TMs bilaterally. Oropharynx: Lips, mucosa, and tongue normal, teeth and gums normal, oropharynx normal. Neck: Supple, no adenopathy; thyroid symmetric, normal size, no bruits. Lungs: Lungs clear to auscultation. No wheezing, rhonchi, rales. Heart: RRR without murmur, gallop, or rubs. No ectopy. Extremities: No deformities, edema, skin discoloration, clubbing or cyanosis. Good capillary refill. Neurologic: Gait normal. ASSESSMENT/PLAN: 1. URI, acute - ICD9: 465.9, ICD10: J06.9 (primary diagnosis) - Discussed viral etiology and rationale for treatment. - Symptomatic treatment with prn analgesia - Supportive care with fluids and rest 2. Uncontrolled type 2 diabetes mellitus with complication, with long-term current use of insulin (HCC) - ICD9: 250.82, V58.67, ICD10: E11.8, E11.65, Z79.4 To be determined. Discussed the clinical pharmacist to possibly help manage diabetes and patient is agreeable to this. Follow-up pending results. - HGB A1C - LIPID PANEL, NONFASTING - COMP METABOLIC PANEL 3. Cerebrovascular accident (CVA), unspecified mechanism (HCC) - ICD9: 434.91, ICD10: I63.9 Pt self-stopped plavix because of her bruising. Encouraged to at least start daily ASA. 4. Essential hypertension - ICD9: 401.9, ICD10: I10 - good control - Encouraged dietary sodium restriction/DASH diet - Goal of BP <130/80 5. Tobacco use - ICD9: 305.1, ICD10: Z72.0 - Cessation encouraged. - Physiologic and physical aspects of tobacco addiction as well as strategies for quitting were discussed. - Counseling was given focusing on the harmful effects of this addiction especially given the patient's medical condition(s) which will be worsened because of the chemicals in tobacco. Discussed treatment plan and patient voices understanding. Patient's questions answered appropriately. Medications and potential side effects were discussed and patient voices understanding. Follow-up pending lab results. Return to the office as scheduled or as needed for worsening/no improvement. ERENDIRA MinorOV Observed: 02/19/2018 Status: COMPLETED Source: [place] 7:40 AM [facility] REPOSITORY Office Visit (FAMPWS) ANAHI MITCHELL ([id number]) 1945 F Date Time Provider Department 02/19/18 7:40 AM STEPHANIE PETE (KELSY) FAMPWS During your visit today, we recorded the following information about you: Temperature Pulse Respiration Blood pressure 98.6 degrees 86/minute 12/minute 136/78 Weight 80.7 kg Stephanie Pete APRN.CNP 02/19/2018 1:54 PM Signed This is a 72 year old female who presents today with: Patient presents with: Medication Follow-up HISTORY OF PRESENT ILLNESS: Anahi Mitchell is a 72 year old female. Patient presents with: Medication Follow-up Pt actually presents today because of being sick. Started Monday night. Had been in the ER prior with what she describes as a perineal boil vs abscess. They started her on clindamycin (and she reports this is improved). Was in urgent care in 02/15 with URI symptoms. She has head congestion. She was started on bromphed and prednisone in urgent care. Refers that she has a lot of head congestion. She is expectorating green mucus from her nose. + sore throat. No ear pain. + cough. + chills. + smoker. Her med list was reviewed and updated. She self-stopped a lot of her medications (lipitor, sertraline, and plavix). She reports a hx of CVA. Discussed the benefits of being on these medications. Refers that she bruised too much with the plavix. Last seen by Dr. Alexis 3-4 months ago. She reports that her sugars have been out of control, running 200-500. Refers her medications were adjusted. In addition to her current medications, reports that she is on another injectable diabetic mediation that was making her sick. She desires to get established with another PCP. PAST MEDICAL HISTORY: PAST MEDICAL HISTORY Diagnosis Date - COPD (chronic obstructive pulmonary disease) ([facility]) 02/09/2015 - Depression 02/09/2015 - DM (diabetes mellitus), type 2, uncontrolled ([facility]) 02/09/2015 - Generalized anxiety disorder 02/09/2015 - GERD (gastroesophageal reflux disease) 02/09/2015 - H/O TIA (transient ischemic attack) and stroke 02/09/2015 - HTN (hypertension) 02/09/2015 - Parkinsons ([facility]) - RA (rheumatoid arthritis) ([facility]) - Restless leg syndrome 02/09/2015 - Type 2 diabetes mellitus with diabetic neuropathy ([facility]) 02/09/2015 PAST SURGICAL HISTORY Procedure Laterality Date - CARPAL TUNNEL Right - COLONOSCOP W/ OR W/O BRSH SPEC 03/16/2016 Colonoscopy - EGD W/O OR W/BRUSH/WASH 03/16/2016 EGD - I AND D, ABCESS COMPLEX MULTIP 01/2015 complex- lower abdominal, MRSA - PAST SURGICAL HISTORY OF 2013 cataracts both eyes - PAST SURGICAL HISTORY OF foot after injury- foreign body in foot ALLERGIES Codeine; Penicillins MEDICATIONS Current Outpatient Prescriptions: clindamycin (CLEOCIN) 150 mg capsule Take 150 mg by mouth three times daily. empagliflozin (JARDIANCE) 25 mg tablet Take 25 mg by mouth daily with breakfast. metFORMIN (GLUCOPHAGE) 1,000 mg tablet Take 1,000 mg by mouth twice daily with meals. linagliptin (TRADJENTA) 5 mg tab Take by mouth. famotidine (PEPCID) 40 mg tablet Take 40 mg by mouth once daily. predniSONE (DELTASONE) 20 mg tablet Take 2 tablets by mouth once daily for 5 days. Take daily with food. Mjgeospzpjmbkro-Jvkjptxmh-QD (BROMFED DM) 2-30-10 mg/5 mL syrup Take 10 mL by mouth four times daily as needed for up to 7 days. metFORMIN (GLUCOPHAGE) 500 mg tablet TAKE 1 TABLET BY MOUTH TWICE DAILY WITH MEALS. isosorbide mononitrate ER (IMDUR) 30 mg 24 hr tablet Take 1 tablet by mouth once daily. pantoprazole DR (PROTONIX) 40 mg tablet Take 1 tablet by mouth daily before breakfast. Take on empty stomach, 1/2 hr before meal. clopidogrel (PLAVIX) 75 mg tablet Take 1 tablet by mouth once daily. sertraline (ZOLOFT) 100 mg tablet Take 2 tablets by mouth once daily. atorvastatin (LIPITOR) 10 mg tablet Take 1 tablet by mouth daily at bedtime. Insulin Lispro, Human, (HUMALOG KWIKPEN) 100 unit/mL inpn Inject insulin three times daily at first bite of food. Take none if BS below 130, 130-200: 2 units, 201-250: 3 units, 251-300: 5 units, 301-350: 6 units, call PCP if greater than 350. Insulin [place], Disposable, (JANET PEN NEEDLE) 32 gauge x 5/32 ndle Use one needle for each dose, 4 times daily. insulin detemir (LEVEMIR) 100 unit/mL injection Inject 70 Units subcutaneously twice daily. latanoprost (XALATAN) 0.005 % ophthalmic solution Use 1 Drop in both eyes daily at bedtime. TO AFFECTED EYE(S) No current facility-administered medications for this visit. FAMILY HISTORY Problem Relation Age of Onset - Diabetes Mother - Heart Father - Heart Mother - Cancer Brother - Cancer Sister - Diabetes Sister - Diabetes Sister - Heart Brother - Heart Brother - Heart Brother - Heart Brother - Heart Brother Social History Marital status: Spouse name: Years of education: Number of children: Social History Main Topics Smoking status: Current Every Day Smoker Packs/day: 0.20 Years: 37.00 Types: Cigarettes Smokeless tobacco: Never Used Comment: 2-3 cigarettes per day Alcohol use: No Drug use: No EXAM: BP 136/78 (BP Site: Right Arm, BP Position: Sitting, BP Cuff Size: Regular Adult) Pulse 86 Temp 37 ?C (98.6 ?F) (Right Tympanic) Resp 12 Wt 80.7 kg (178 lb) SpO2 99% BMI 33.63 kg/m? PHYSICAL EXAM: General Appearance: Well appearing, alert, in no acute distress, well-hydrated, well nourished.. Skin: Skin color, texture, turgor normal, no suspicious rashes or lesions. Head: Normocephalic, no masses, lesions, tenderness or abnormalities. Eyes: Anicteric sclera. Pupils are equally round and reactive to light. Extraocular movements are intact. Ears: External ears normal, canals clear, Normal TMs bilaterally. Oropharynx: Lips, mucosa, and tongue normal, teeth and gums normal, oropharynx normal. Neck: Supple, no adenopathy; thyroid symmetric, normal size, no bruits. Lungs: Lungs clear to auscultation. No wheezing, rhonchi, rales. Heart: RRR without murmur, gallop, or rubs. No ectopy. Extremities: No deformities, edema, skin discoloration, clubbing or cyanosis. Good capillary refill. Neurologic: Gait normal. ASSESSMENT/PLAN: 1. URI, acute - ICD9: 465.9, ICD10: J06.9 (primary diagnosis) - Discussed viral etiology and rationale for treatment. - Symptomatic treatment with prn analgesia - Supportive care with fluids and rest 2. Uncontrolled type 2 diabetes mellitus with complication, with long-term current use of insulin (HCC) - ICD9: 250.82, V58.67, ICD10: E11.8, E11.65, Z79.4 To be determined. Discussed the clinical pharmacist to possibly help manage diabetes and patient is agreeable to this. Follow-up pending results. - HGB A1C - LIPID PANEL, NONFASTING - COMP METABOLIC PANEL 3. Cerebrovascular accident (CVA), unspecified mechanism (HCC) - ICD9: 434.91, ICD10: I63.9 Pt self-stopped plavix because of her bruising. Encouraged to at least start daily ASA. 4. Essential hypertension - ICD9: 401.9, ICD10: I10 - good control - Encouraged dietary sodium restriction/DASH diet - Goal of BP <130/80 5. Tobacco use - ICD9: 305.1, ICD10: Z72.0 - Cessation encouraged. - Physiologic and physical aspects of tobacco addiction as well as strategies for quitting were discussed. - Counseling was given focusing on the harmful effects of this addiction especially given the patient's medical condition(s) which will be worsened because of the chemicals in tobacco. Discussed treatment plan and patient voices understanding. Patient's questions answered appropriately. Medications and potential side effects were discussed and patient voices understanding. Follow-up pending lab results. Return to the office as scheduled or as needed for worsening/no improvement. Stephanie Pete APRN.KELSY Pete APRN.KELSY 02/19/2018 8:18 AM Addendum 1. Get labs today. 2. Continue same meds. 3. Start a baby ASA daily. Get plenty of rest. Force fluids daily with water and juices. Nasal saline spray may help to keep nose open and moist: 2- 3 squirts each side every few hours. This also help to rinse out virus and bacteria causing infection. Cool mist humidifier in room during sleep. May use OTC Tylenol or Ibuprofen as direct for discomfort. For sore throat, warm salt water gargles, Chlorseptic spray, lozenges or other OTC sore throat remedies may help. Decongestants such as plain Sudafed or with expectorant such as Mucinex D may help with nasal stuffiness or facial and sinus pressure. Generics are fine. These are over the counter but require an adult signature. Oxymetolazine nasal decongestants (Afrin, Dristan, Balwinder's) may also help (in place of oral decongestants) but should not be used longer than 48-72 hours due to potential rebound congestion. OTC antihistamines such Benadryl (make cause drowsiness) or Zyrtec/ Clariten/ Veronica (non-drowsy) may help watery nasal drainage though they are generally not recommended because they dry mucus and make it sticky. The flow of mucus is important to help your body rid the virus. If cough keeps you awake at night, try OTC remedies first, such as Nyquil, Delsym, Balwinder's 44 or Mucinex DM. If this doesn't help you sleep, call the office for a prescription. Be careful if you are combining cough and cold medications that you aren't doubling the medicines. If you aren't sure: ask the pharmacist for help. Cough or sneeze into your sleeve to prevent spread of infected secretions. Wash your hands frequently. Try not to cough or sneeze on surfaces others might touch. If symptoms fail to improve in 5-7 days, fever > 100.5F, general worsening, or other concerning symptoms, return to [facility] or Eulogio Alexis MD. Referring Provider: SELF [[id number]] Allergies As of Date: 02/19/2018 Noted Allergy Reaction CODEINE 12/16/2014 14 - Other: See Comments Comments: Stopped breathing PENICILLINS 12/16/2014 4 - Hives Date Reviewed: 02/19/2018 Reviewed by: Ashley Arellano Cutting Machine Operator Helper - Fully Assessed Reason for Visit: Medication Follow-up [270] Primary Visit Diagnosis:URI, acute [J06.9] Other Visit Diagnoses:Uncontrolled type 2 diabetes mellitus with complication, with long-term current use of insulin (HCC) [E11.8, E11.65, Z79.4] Cerebrovascular accident (CVA), unspecified mechanism (HCC) [I63.9] Essential hypertension [I10] Tobacco use [Z72.0] Order(s):HGB A1C [TYFSR9E] Order #: [id number] FUTURE LIPID PANEL, NONFASTING [SQLIPNF] Order #: [id number] FUTURE COMP METABOLIC PANEL [SQCMP] Order #: [id number] FUTURE Prescriptions as of 02/19/2018 Sig: CLINDAMYCIN HCL 150 MG CAPSULE Take 150 mg by mouth three ti* EMPAGLIFLOZIN 25 MG TABLET Take 25 mg by mouth daily wit* METFORMIN 1,000 MG TABLET Take 1,000 mg by mouth twice * LINAGLIPTIN 5 MG TABLET Take by mouth. PREDNISONE 20 MG TABLET Take 2 tablets by mouth once * BROMPHENIRAMINE-PSEUDOEPHEDRI* Take 10 mL by mouth four time* METFORMIN 500 MG TABLET TAKE 1 TABLET BY MOUTH TWICE * ISOSORBIDE MONONITRATE ER 30 * Take 1 tablet by mouth once d* PANTOPRAZOLE 40 MG TABLET,DEL* Take 1 tablet by mouth daily * INSULIN LISPRO (U-100) 100 UN* Inject insulin three times da* PEN NEEDLE, DIABETIC 32 GAUGE* Use one needle for each dose,* LATANOPROST 0.005 % EYE DROPS Use 1 Drop in both eyes daily* Problem List As Of Date 02/19/2018 Noted Resolved Cutaneous abscess of abdominal wall [L02.211] INVALID FOR* DM (diabetes mellitus), type 2, uncontrolled (H*INVALID FOR* Priority: A More... COPD (chronic obstructive pulmonary disease) (H*INVALID FOR* Priority: A Restless leg syndrome [G25.81] INVALID FOR* Priority: B GERD (gastroesophageal reflux disease) [K21.9] INVALID FOR* Priority: A Depression [F32.9] INVALID FOR* Priority: A Generalized anxiety disorder [F41.1] INVALID FOR* Priority: A H/O TIA (transient ischemic attack) and stroke *INVALID FOR* Priority: A Family history of ischemic heart disease [Z82.4*INVALID FOR* Priority: F RA (rheumatoid arthritis) (FORMERLY [facility]) [M06.9] Priority: B Skin-picking disorder [F42.4] INVALID FOR* Chronic pain [G89.29] INVALID FOR* More... Essential hypertension [I10] INVALID FOR* Priority: A Bilateral leg edema [R60.0] INVALID FOR* Urinary incontinence [R32] INVALID FOR* Priority: B Mixed incontinence [N39.46] INVALID FOR* Type 2 diabetes mellitus with diabetic neuropat*INVALID FOR* Priority: A Tobacco use [Z72.0] INVALID FOR* Morbid obesity (FORM[facility]) [E66.01] INVALID FOR* Cerebrovascular accident (CVA) (FORM[facility]) [I63.9] INVALID FOR* Other instructions from your clinician: 1. Get labs today. 2. Continue same meds. 3. Start a baby ASA daily. Get plenty of rest. Force fluids daily with water and juices. Nasal saline spray may help to keep nose open and moist: 2-3 squirts each side every few hours. This also help to rinse out virus and bacteria causing infection. Cool mist humidifier in room during sleep. May use OTC Tylenol or Ibuprofen as direct for discomfort. For sore throat, warm salt water gargles, Chlorseptic spray, lozenges or other OTC sore throat remedies may help. Decongestants such as plain Sudafed or with expectorant such as Mucinex D may help with nasal stuffiness or facial and sinus pressure. Generics are fine. These are over the counter but require an adult signature. Oxymetolazine nasal decongestants (Afrin, Dristan, Balwinder's) may also help (in place of oral decongestants) but should not be used longer than 48-72 hours due to potential rebound congestion. OTC antihistamines such Benadryl (make cause drowsiness) or Zyrtec/ Clariten/ Veronica (non-drowsy) may help watery nasal drainage though they are generally not recommended because they dry mucus and make it sticky. The flow of mucus is important to help your body rid the virus. If cough keeps you awake at night, try OTC remedies first, such as Nyquil, Delsym, Balwinder's 44 or Mucinex DM. If this doesn't help you sleep, call the office for a prescription. Be careful if you are combining cough and cold medications that you aren't doubling the medicines. If you aren't sure: ask the pharmacist for help. Cough or sneeze into your sleeve to prevent spread of infected secretions. Wash your hands frequently. Try not to cough or sneeze on surfaces others might touch. If symptoms fail to improve in 5-7 days, fever > 100.5F, general worsening, or other concerning symptoms, return to [facility] or Eulogio Alexis MD. Medications Discontinued During This Encounter insulin detemir (LEVEMIR) 100 unit/m* 5 Vi* 11 08/04/2015 02/19/2018 Route: SUBCUTANEOUS Sig: Inject 70 Units subcutaneously twice daily. Disc: Discontinued by another Health Care Provider atorvastatin (LIPITOR) 10 mg tablet 90 t* 1 09/29/2015 02/19/2018 Route: ORAL Sig: Take 1 tablet by mouth daily at bedtime. Disc: Discontinued by Patient sertraline (ZOLOFT) 100 mg tablet 180 * 1 11/10/2015 02/19/2018 Route: ORAL Sig: Take 2 tablets by mouth once daily. Disc: Discontinued by Patient clopidogrel (PLAVIX) 75 mg tablet 30 t* 5 12/25/2015 02/19/2018 Route: ORAL Sig: Take 1 tablet by mouth once daily. Disc: Discontinued by Patient famotidine (PEPCID) 40 mg tablet 02/19/2018 Class: Historical Med Route: ORAL Sig: Take 40 mg by mouth once daily. Disc: Course of therapy completed Encounter Status:Closed by STEPHANIE PETE CNP on 02/19/18 PROGRESS Observed: 02/15/2018 Status: COMPLETED Source: [place] 3:47 PM [facility] REPOSITORY HNO ID: [id number] Author: Edvin Mathis (Ronal) [place] Service: (none) Author Type: Nurse Practitioner Type: Progress Notes Filed: 02/15/2018 3:50 PM Note Text: Subjective HPI Patient presents with: bodyaches, chills, cough: x 2-3 days-was in ER 02/12 for a sore on lip of her vagina and is on antibiotic clindamycin for this Hx of COPD Denies any otc treatment for symptoms. Review of Systems Constitutional: Positive for chills. HENT: Positive for congestion. Negative for sore throat. Eyes: Negative for discharge. Respiratory: Positive for cough. Negative for sputum production, shortness of breath and wheezing. Gastrointestinal: Negative for abdominal pain, diarrhea, nausea and vomiting. Musculoskeletal: Positive for myalgias. Skin: Negative for rash. PAST MEDICAL HISTORY Diagnosis Date - COPD (chronic obstructive pulmonary disease) (FORM[facility]) 02/09/2015 - Depression 02/09/2015 - DM (diabetes mellitus), type 2, uncontrolled ([facility]) 02/09/2015 - Generalized anxiety disorder 02/09/2015 - GERD (gastroesophageal reflux disease) 02/09/2015 - H/O TIA (transient ischemic attack) and stroke 02/09/2015 - HTN (hypertension) 02/09/2015 - Parkinsons ([facility]) - RA (rheumatoid arthritis) ([facility]) - Restless leg syndrome 02/09/2015 - Type 2 diabetes mellitus with diabetic neuropathy ([facility]) 02/09/2015 PAST SURGICAL HISTORY Procedure Laterality Date - CARPAL TUNNEL Right - COLONOSCOP W/ OR W/O [facility] SPEC 03/16/2016 Colonoscopy - EGD W/O OR W/BRUSH/WASH 03/16/2016 EGD - I AND D, ABCESS COMPLEX MULTIP 01/2015 complex- lower abdominal, MRSA - PAST SURGICAL HISTORY OF 2013 cataracts both eyes - PAST SURGICAL HISTORY OF foot after injury- foreign body in foot ALLERGIES Codeine; Penicillins MEDICATIONS empagliflozin (JARDIANCE) 25 mg tablet Take 25 mg by mouth daily with breakfast. metFORMIN (GLUCOPHAGE) 1,000 mg tablet Take 1,000 mg by mouth twice daily with meals. linagliptin (TRADJENTA) 5 mg tab Take by mouth. famotidine (PEPCID) 40 mg tablet Take 40 mg by mouth once daily. isosorbide mononitrate ER (IMDUR) 30 mg 24 hr tablet Take 1 tablet by mouth once daily. Insulin Lispro, Human, (HUMALOG KWIKPEN) 100 unit/mL inpn Inject insulin three times daily at first bite of food. Take none if BS below 130, 130-200: 2 units, 201-250: 3 units, 251-300: 5 units, 301- 350: 6 units, call PCP if greater than 350. latanoprost (XALATAN) 0.005 % ophthalmic solution Use 1 Drop in both eyes daily at bedtime. TO AFFECTED EYE(S) predniSONE (DELTASONE) 20 mg tablet Take 2 tablets by mouth once daily for 5 days. Take daily with food. Lctvxeownqkansa-Klfmfqond-EP (BROMFED DM) 2-30-10 mg/5 mL syrup Take 10 mL by mouth four times daily as needed for up to 7 days. metFORMIN (GLUCOPHAGE) 500 mg tablet TAKE 1 TABLET BY MOUTH TWICE DAILY WITH MEALS. pantoprazole DR (PROTONIX) 40 mg tablet Take 1 tablet by mouth daily before breakfast. Take on empty stomach, 1/2 hr before meal. clopidogrel (PLAVIX) 75 mg tablet Take 1 tablet by mouth once daily. sertraline (ZOLOFT) 100 mg tablet Take 2 tablets by mouth once daily. atorvastatin (LIPITOR) 10 mg tablet Take 1 tablet by mouth daily at bedtime. Insulin [place], Disposable, (JANET PEN NEEDLE) 32 gauge x 5/32 ndle Use one needle for each dose, 4 times daily. insulin detemir (LEVEMIR) 100 unit/mL injection Inject 70 Units subcutaneously twice daily. FAMILY HISTORY Problem Relation Age of Onset - Diabetes Mother - Heart Father - Heart Mother - Cancer Brother - Cancer Sister - Diabetes Sister - Diabetes Sister - Heart Brother - Heart Brother - Heart Brother - Heart Brother - Heart Brother Social History Substance Use Topics - Smoking status: Current Every Day Smoker Packs/day: 0.20 Years: 37.00 Types: Cigarettes - Smokeless tobacco: Never Used Comment: 2-3 cigarettes per day - Alcohol use No Objective Physical Exam Constitutional: She is well-developed, well-nourished, and in no distress. HENT: Head: Normocephalic. Right Ear: Tympanic membrane, external ear and ear canal normal. Left Ear: Tympanic membrane, external ear and ear canal normal. Nose: Rhinorrhea present. Right sinus exhibits no maxillary sinus tenderness and no frontal sinus tenderness. Left sinus exhibits no maxillary sinus tenderness and no frontal sinus tenderness. Mouth/Throat: Posterior oropharyngeal erythema (PND) present. Eyes: Conjunctivae are normal. Neck: Normal range of motion. Neck supple. Cardiovascular: Normal rate, regular rhythm and normal heart sounds. Pulmonary/Chest: Effort normal and breath sounds normal. No respiratory distress. She has no wheezes. Abdominal: Soft. She exhibits no distension. There is no tenderness. Lymphadenopathy: She has no cervical adenopathy. Skin: Skin is warm and dry. No rash noted. Nursing note and vitals reviewed. ASSESSMENT/PLAN: 1. COPD with exacerbation (HCC) - ICD9: 491.21, ICD10: J44.1 -Prednisone -Bromfed -cont. Clindamycin as ordered -F/u with pcp in 3-5 days or sooner if symptoms are not improving or worsening Prescription instructions reviewed with patient as applicable. Patient advised if symptoms do not improve or if symptoms worsen sooner, to contact their primary care physician. Potential red flag symptoms discussed with the patient. Reviewed appropriate action plan to take if red flag symptoms occur. Patient agreeable to treatment plan. Edvin Epps APRN.CABLE PULLER CNOV Observed: 02/15/2018 Status: COMPLETED Source: [place] 2:15 PM [facility] REPOSITORY Office Visit (WSTR) ANAHI MITCHELL ([id number]) 1945 F Date Time Provider Department 02/15/18 2:15 PM EDVIN EPPS (CHANGE MANAGEMENT MANAGER) [facility] During your visit today, we recorded the following information about you: Temperature Pulse Respiration Blood pressure 97.4 degrees 88/minute 16/minute 140/80 Weight 78.3 kg Edvin Epps APRN.CABLE PULLER 02/15/2018 3:50 PM Signed Subjective HPI Patient presents with: bodyaches, chills, cough: x 2-3 days-was in ER 02/12 for a sore on lip of her vagina and is on antibiotic clindamycin for this Hx of COPD Denies any otc treatment for symptoms. Review of Systems Constitutional: Positive for chills. HENT: Positive for congestion. Negative for sore throat. Eyes: Negative for discharge. Respiratory: Positive for cough. Negative for sputum production, shortness of breath and wheezing. Gastrointestinal: Negative for abdominal pain, diarrhea, nausea and vomiting. Musculoskeletal: Positive for myalgias. Skin: Negative for rash. PAST MEDICAL HISTORY Diagnosis Date - COPD (chronic obstructive pulmonary disease) ([facility]) 02/09/2015 - Depression 02/09/2015 - DM (diabetes mellitus), type 2, uncontrolled ([facility]) 02/09/2015 - Generalized anxiety disorder 02/09/2015 - GERD (gastroesophageal reflux disease) 02/09/2015 - H/O TIA (transient ischemic attack) and stroke 02/09/2015 - HTN (hypertension) 02/09/2015 - Parkinsons ([facility]) - RA (rheumatoid arthritis) ([facility]) - Restless leg syndrome 02/09/2015 - Type 2 diabetes mellitus with diabetic neuropathy ([facility]) 02/09/2015 PAST SURGICAL HISTORY Procedure Laterality Date - CARPAL TUNNEL Right - COLONOSCOP W/ OR W/O [facility] SPEC 03/16/2016 Colonoscopy - EGD W/O OR W/BRUSH/WASH 03/16/2016 EGD - I AND D, ABCESS COMPLEX MULTIP 01/2015 complex- lower abdominal, MRSA - PAST SURGICAL HISTORY OF 2013 cataracts both eyes - PAST SURGICAL HISTORY OF foot after injury- foreign body in foot ALLERGIES Codeine; Penicillins MEDICATIONS empagliflozin (JARDIANCE) 25 mg tablet Take 25 mg by mouth daily with breakfast. metFORMIN (GLUCOPHAGE) 1,000 mg tablet Take 1,000 mg by mouth twice daily with meals. linagliptin (TRADJENTA) 5 mg tab Take by mouth. famotidine (PEPCID) 40 mg tablet Take 40 mg by mouth once daily. isosorbide mononitrate ER (IMDUR) 30 mg 24 hr tablet Take 1 tablet by mouth once daily. Insulin Lispro, Human, (HUMALOG KWIKPEN) 100 unit/mL inpn Inject insulin three times daily at first bite of food. Take none if BS below 130, 130-200: 2 units, 201-250: 3 units, 251-300: 5 units, 301-350: 6 units, call PCP if greater than 350. latanoprost (XALATAN) 0.005 % ophthalmic solution Use 1 Drop in both eyes daily at bedtime. TO AFFECTED EYE(S) predniSONE (DELTASONE) 20 mg tablet Take 2 tablets by mouth once daily for 5 days. Take daily with food. Rqrsfwotmejggyh-Sqmqaimqb-YS (BROMFED DM) 2-30-10 mg/5 mL syrup Take 10 mL by mouth four times daily as needed for up to 7 days. metFORMIN (GLUCOPHAGE) 500 mg tablet TAKE 1 TABLET BY MOUTH TWICE DAILY WITH MEALS. pantoprazole DR (PROTONIX) 40 mg tablet Take 1 tablet by mouth daily before breakfast. Take on empty stomach, 1/2 hr before meal. clopidogrel (PLAVIX) 75 mg tablet Take 1 tablet by mouth once daily. sertraline (ZOLOFT) 100 mg tablet Take 2 tablets by mouth once daily. atorvastatin (LIPITOR) 10 mg tablet Take 1 tablet by mouth daily at bedtime. Insulin [place], Disposable, (JANET PEN NEEDLE) 32 gauge x 5/32 ndle Use one needle for each dose, 4 times daily. insulin detemir (LEVEMIR) 100 unit/mL injection Inject 70 Units subcutaneously twice daily. FAMILY HISTORY Problem Relation Age of Onset - Diabetes Mother - Heart Father - Heart Mother - Cancer Brother - Cancer Sister - Diabetes Sister - Diabetes Sister - Heart Brother - Heart Brother - Heart Brother - Heart Brother - Heart Brother Social History Substance Use Topics - Smoking status: Current Every Day Smoker Packs/day: 0.20 Years: 37.00 Types: Cigarettes - Smokeless tobacco: Never Used Comment: 2-3 cigarettes per day - Alcohol use No Objective Physical Exam Constitutional: She is well-developed, well-nourished, and in no distress. HENT: Head: Normocephalic. Right Ear: Tympanic membrane, external ear and ear canal normal. Left Ear: Tympanic membrane, external ear and ear canal normal. Nose: Rhinorrhea present. Right sinus exhibits no maxillary sinus tenderness and no frontal sinus tenderness. Left sinus exhibits no maxillary sinus tenderness and no frontal sinus tenderness. Mouth/Throat: Posterior oropharyngeal erythema (PND) present. Eyes: Conjunctivae are normal. Neck: Normal range of motion. Neck supple. Cardiovascular: Normal rate, regular rhythm and normal heart sounds. Pulmonary/Chest: Effort normal and breath sounds normal. No respiratory distress. She has no wheezes. Abdominal: Soft. She exhibits no distension. There is no tenderness. Lymphadenopathy: She has no cervical adenopathy. Skin: Skin is warm and dry. No rash noted. Nursing note and vitals reviewed. ASSESSMENT/PLAN: 1. COPD with exacerbation (HCC) - ICD9: 491.21, ICD10: J44.1 -Prednisone -Bromfed -cont. Clindamycin as ordered -F/u with pcp in 3-5 days or sooner if symptoms are not improving or worsening Prescription instructions reviewed with patient as applicable. Patient advised if symptoms do not improve or if symptoms worsen sooner, to contact their primary care physician. Potential red flag symptoms discussed with the patient. Reviewed appropriate action plan to take if red flag symptoms occur. Patient agreeable to treatment plan. Edvin Epps APRN.CABLE PULLER Referring Provider: SELF [200] Allergies As of Date: 02/15/2018 Noted Allergy Reaction CODEINE 12/16/2014 14 - Other: See Comments Comments: Stopped breathing PENICILLINS 12/16/2014 4 - Hives Date Reviewed: 02/15/2018 Reviewed by: Deanna Solo LPN - Fully Assessed Reason for Visit: bodyaches, chills, cough [Other] Cmt: x 2-3 days-was in ER 02/12 for a sore on lip of her vagina and is on antibiotic clindamycin for this Primary Visit Diagnosis:COPD with exacerbation (HCC) [J44.1] Order(s):predniSONE (DELTASONE) 20 mg tabletTake 2 tablets by mouth once daily for 5 days. Take daily with food.Disp: 10 tabletRfl: 0 Ovmamhzmfrwzasf-Hcqdwngii-OT (BROMFED DM) 2-30-10 mg/5 mL syrupTake 10 mL by mouth four times daily as needed for up to 7 days.Disp: 240 mLRfl: 0 Prescriptions as of 02/15/2018 Sig: EMPAGLIFLOZIN 25 MG TABLET Take 25 mg by mouth daily wit* METFORMIN 1,000 MG TABLET Take 1,000 mg by mouth twice * LINAGLIPTIN 5 MG TABLET Take by mouth. FAMOTIDINE 40 MG TABLET Take 40 mg by mouth once mis* ISOSORBIDE MONONITRATE ER 30 * Take 1 tablet by mouth once d* INSULIN LISPRO (U-100) 100 UN* Inject insulin three times da* LATANOPROST 0.005 % EYE DROPS Use 1 Drop in both eyes daily* PREDNISONE 20 MG TABLET Take 2 tablets by mouth once * BROMPHENIRAMINE-PSEUDOEPHEDRI* Take 10 mL by mouth four time* METFORMIN 500 MG TABLET TAKE 1 TABLET BY MOUTH TWICE * Patient not taking: Reported on 02/15/2018 PANTOPRAZOLE 40 MG TABLET,DEL* Take 1 tablet by mouth daily * Patient not taking: Reported on 02/15/2018 CLOPIDOGREL 75 MG TABLET Take 1 tablet by mouth once d* Patient not taking: Reported on 02/15/2018 SERTRALINE 100 MG TABLET Take 2 tablets by mouth once * Patient not taking: Reported on 02/15/2018 ATORVASTATIN 10 MG TABLET Take 1 tablet by mouth daily * Patient not taking: Reported on 02/15/2018 PEN NEEDLE, DIABETIC 32 GAUGE* Use one needle for each dose,* Patient not taking: Reported on 02/15/2018 INSULIN DETEMIR (U-100) 100 U* Inject 70 Units subcutaneousl* Patient not taking: Reported on 02/15/2018 Problem List As Of Date 02/15/2018 Noted Resolved Cutaneous abscess of abdominal wall [L02.211] INVALID FOR* DM (diabetes mellitus), type 2, uncontrolled (H*INVALID FOR* Priority: A More... COPD (chronic obstructive pulmonary disease) (H*INVALID FOR* Priority: A Restless leg syndrome [G25.81] INVALID FOR* Priority: B GERD (gastroesophageal reflux disease) [K21.9] INVALID FOR* Priority: A Depression [F32.9] INVALID FOR* Priority: A Generalized anxiety disorder [F41.1] INVALID FOR* Priority: A H/O TIA (transient ischemic attack) and stroke *INVALID FOR* Priority: A Family history of ischemic heart disease [Z82.4*INVALID FOR* Priority: F RA (rheumatoid arthritis) ([facility]) [M06.9] Priority: B Skin-picking disorder [F42.4] INVALID FOR* Chronic pain [G89.29] INVALID FOR* More... Essential hypertension [I10] INVALID FOR* Priority: A Bilateral leg edema [R60.0] INVALID FOR* Urinary incontinence [R32] INVALID FOR* Priority: B Mixed incontinence [N39.46] INVALID FOR* Type 2 diabetes mellitus with diabetic neuropat*INVALID FOR* Priority: A Tobacco use [Z72.0] INVALID FOR* Morbid obesity ([facility]) [E66.01] INVALID FOR* Prescriptions ordered this encounter Disp Refills Start End PREDNISONE 20 MG TABLET 10 t* 0 02/15/2018 02/20/2018 Route: ORAL Sig: Take 2 tablets by mouth once daily for 5 days. Take daily with food. FMBFZGRVYHYVZIA-RCSCKAOFQENXGHX-GA 2* 240 * 0 02/15/2018 02/22/2018 Route: ORAL Sig: Take 10 mL by mouth four times daily as needed for up to 7 days. Disposition: Return if symptoms worsen or fail to improve. Follow-up and Disposition History Recorded Encounter Status:Closed by EDVIN EPPS on 02/15/18 EMERGENCY DEPARTMENT Observed: 02/13/2018 Status: F Source: [place] SUMMARY 2:59 PM [facility] [facility] Medical Records Department [address] [place] [address] Emergency Department Summary 02/12/18 1558 MR#: [id number] Acct: [id number] Name: ANAHI MITCHELL Tosin Rep #: [id number] : 1945 72 From: Maria Alejandra Olivia MD PCP: Care Physician, No Primary Status: DEP ER - ER Visit Summary Date of Service: 02/12/18 Chief Complaint: Abscess History of Present Illness: The patient is a 72 F who presents with multiple complaints. Patient states that her hands and feet have been locking up. She states Dr. Shaw usually gets her IV fluids for this because it is believed to be from dehydration. She does state that she is drinking quite a bit which is also been urinating frequently. She does state she was initially having dysuria, but continues to have frequency. She reports an abscess to the left labia that drained last night. She thinks she has another one along the right perineum that is now starting. She has not had fever or chills. She is diabetic but does not check her blood sugars. Physical Examination: Vital signs grossly unremarkable. She is afebrile. Head and neck examination is unremarkable. Heart is regular rate and rhythm. Lungs sounds are clear. Abdomen is soft with no focal tenderness. examination was recently drained abscess to the left labia majora. There is approximately 3 similar diameter area of induration. There is no cellulitis. No further abscesses noted on exam. Neuro exam reveals normal strength and sensation with full range of motion of all extremities. Test Results: CBC is normal. Chemistry studies significant for glucose of 326 and creatinine 1.37. Urinalysis does show large amount of glucose. No sign of acute infection. Emergency Department Course and Treatment: Patient was given a liter of IV fluids. Due to the muscle spasm she was given a single dose of Valium 5 mg p.o. here. Patient is treated with a course of clindamycin. Treatment Plan: [] Disposition: Discharge Impression: 1. Hyperglycemia 2. Cutaneous abscess This note was generated with DISKOV[employer] dictation software. It may contain incorrect words, spelling, and punctuation that were not noted in review of the chart prior to signing ED Disposition - Plan for ED Patient: Disposition: Home or Assisted Living Chief Complaint: Abscess Instructions: ED Staph Infec Abx Tx Only Prescriptions: Clindamycin [Cleocin] 300 mg PO 4X/DAY #80 capsule Referrals: Eulogio Alexis Chi, MD [COURTESY STAFF PHYSICIAN] - 1 Week What to do if you have Problems For any increased pain, shortness of breath, bleeding, nausea or vomiting, chest pain, or any unexpected problems, contact your Primary Care Provider. Call [facility] ([phone]) or report to the closest Emergency Room. Call 911 if necessary. 02/13/18 8187 <Electronically signed by Maria Alejandra Olivia MD> Date Maria Alejandra Olivia MD Cosigner Signature (If Indicated): Date CC: No Primary Care Physician DISCHARGE INSTRUCTION Observed: 02/12/2018 Status: F Source: [place] 6:45 PM [facility] Medical Records Department [address] [place] [address] Discharge Instruction 02/12/181843 MR#: [id number] Acct: [id number] Name: ANAHI MITCHELL Rep #: [id number] : 1945 72 From: Maria Alejandra Olivia MD PCP: Care Physician, No Primary Status: REG ER ED Disposition - Plan for ED Patient: Disposition: Home or Assisted Living Chief Complaint: Abscess Instructions: ED Staph Infec Abx Tx Only Prescriptions: Clindamycin [Cleocin] 300 mg PO 4X/DAY #80 capsule Referrals: Eulogio Alexis Chi, MD [COURTESY STAFF PHYSICIAN] - 1 Week What to do if you have Problems For any increased pain, shortness of breath, bleeding, nausea or vomiting, chest pain, or any unexpected problems, contact your Primary Care Provider. Call [facility] ([phone]) or report to the closest Emergency Room. Call 911 if necessary. 02/12/181844 <Electronically signed by Maria Alejandra Olivia MD> Date Maria Alejandra Olivia MD Cosigner Signature (If Indicated): Date CC: No Primary Care Physician CBC W/DIFF, AUTOMATED Collected: 02/12/2018 Status: F Source: [place] 4:51 PM [facility] TYPE CODE TESTS RESULT OUT OF RANGE REFERENCE UNITS LAB L100.1000 4.4-11.0 K/mm3 Normal WBC 10.4 LAB L100.1200 4.2-5.4 M/mm3 Normal RBC 4.32 LAB L100.1300 12.0-15.0 g/dl Normal HGB 13.7 LAB L100.1400 37-47 % Normal HCT 40.4 LAB L100.1500 81-99 fL Normal MCV 93.5 LAB L100.1600 27.0-32.0 pg Normal MCH 31.7 LAB L100.1700 32-36 g/gl Normal MCHC 33.9 LAB L100.1810 11.6-14.6 % Normal RDW CV 12.2 LAB L100.1820 35.1-43.9 fl Normal RDW SD 41.4 LAB L100.1900 150-450 K/mm3 Normal PLT 177 LAB L100.2000 6.2-12.0 fl Normal MPV 10.8 LAB L100.2100 47-70 % High NEUT% 70.3 LAB L100.2200 19-41 % Normal LY% 20.0 LAB L100.2300 0-10 % Normal MONO% 7.3 LAB L100.2400 0-5 % Normal EO% 1.4 LAB L100.2500 0-1 % Normal BASO% 0.6 LAB L100.2550 0.0-0.9 % Normal IM GRAN % 0.400 Result Comment: IG% - Immature Granulocytes (promyelocytes, myelocytes and metamyelocytes) > 1% indicates that a LEFT SHIFT is Present. LAB L100.2620 2.0-7.7 X10 3/uL Normal Absolute Neut 7.3 LAB L100.2720 0.83-4.51 X10 3/ul Normal Absolute Lymph 2.07 Performed By: #### L100.0100 #### [facility] [address] [place], [place], [address] BASIC METABOLIC Collected: 02/12/2018 Status: F Source: [place] PROFILE (BMP) 4:51 PM [facility] TYPE CODE TESTS RESULT OUT OF RANGE REFERENCE UNITS LAB L501.0100 74-106 mg/dL High GLU 326 Result Comment: Glucose result greater than or equal to 200 mg/dL suggests DIABETES MELLITUS per A.D.A. criteria. Please note revised GLUCOSE reference range effective 2017. LAB L501.1000 7-18 mg/dL Normal BUN 17 LAB L501.1100 0.55-1.02 mg/dL High CREAT,SERUM 1.37 Result Comment: The validity of the calculated GFR AND GFRAA in patients over 70 years has not been determined. Clinical correlation is essential. LAB L501.1110 >60 mL/min Low EST GFR 40 Result Comment: Non- GFR Calc LAB L501.1115 >60 mL/min Low EST GFR - AA 49 Result Comment: GFR Calc LAB L501.1255 ml/min Normal Estimated CRCL 29.36 LAB L501.1300 10-20 RATIO Normal BUN/CRE 12.4 LAB L501.2200 8.5-10 mg/dL Normal .1 CA 8.9 LAB L501.5300 136-14 mmol/L Normal 5 NA 136 LAB L501.5600 3.5-5. mmol/L Normal 1 K 3.7 LAB L501.5900 98-107 mmol/L Normal CL 99 LAB L501.6100 21.0-3 mmol/L Normal 2.0 CO2 28.0 LAB L501.6200 5-15 Normal GAP 9 Performed By: #### L500.2500 #### [facility] [address] [place], [address] URINALYSIS, COMPLETE Collected: 02/12/2018 Status: F Source: [place] 4:28 PM [facility] Order Comment: Order Date: 02/12/18 Has pt arrived? Y How was Urine Obtained? CLEAN CATCH TYPE CODE TESTS RESULT OUT OF RANGE REFERENCE UNITS LAB L400.3000 Yellow COLOR Normal Yellow LAB L400.3050 Clear Normal CLARITY Clear LAB L400.3200 Normal mg/dl High GLUCOSE, UR 1000 LAB L400.3300 Negative mg/dL Normal BILIRUBIN URINE Negative LAB L400.3400 Negative mg/dl Normal KETONE UR Negative LAB L400.3465 1.002-1.030 Normal SP.GR. DIPSTX 1.010 LAB L400.3550 5.0 - 8.0 pH UR Normal 6.0 LAB L400.3600 Negative mg/dl PROT Normal DIPSTX Negative LAB L400.3700 Normal mg/dl Normal UROBILI Normal LAB L400.3750 Negative Normal NITRITE UR Negative LAB L400.3780 Negative /ul Normal OCCULT BLOOD-UR Negative LAB L400.3800 Negative /ul High LEUK 25 ESTERASE LAB L400.4050 0-5 /hpf WBC Normal 0-5 SEEN LAB L400.4100 0-5 /hpf 0 Normal RBC-UA SEEN LAB L400.4150 5-10 /hpf SQUAM Normal EPI 0-5 SEEN LAB L400.4300 None Seen /hpf 0 Normal BACTERIA SEEN LAB L400.4350 <or=2+ /hpf 0 Normal MUCUS, URINE SEEN Performed By: #### L400.0001 #### [facility] [address] [place], [address] Observed: 11/21/2017 Status: F Source: [place] CULTURE, URINE 4:11 PM [facility] Urine Culture Probable skin contaminants. ORGANISM 1: Mixed Gram Positive Organisms [place] Count >100,000 Performed By: #### M100.0650 #### [facility] [address] [place], [address] ABD INC DECUB Observed: 10/23/2017 Status: F Source: [place] AND/OR ERECT 3:15 PM [facility] Imaging Services [address] [place] [address] Abd Inc Decub and/or Erect MR#: [id number] Acct: [id number] Name: ANAHI MITCHELL Tosin Rep #: [id number] : 1945 F 71 From: Maria Alejandra Schneider MD PCP: Reuben BOWMAN,Eulogio Gomez Status: REG CLI Study: Abd Inc Decub and/or Erect Date of Exam: 10/23/17 Exam# [id number] Ordering Dr: Eulogio Alexis MD STUDY: X-RAY - ABDOMEN/PELVIS REASON FOR EXAM: Female, 71 years old. Constipation TECHNIQUE: Supine and upright views of the abdomen and pelvis were obtained. COMPARISON: CT abdomen and pelvis dated October 16, 2017 FINDINGS: The lung bases are not adequately visualized. There is an unremarkable bowel gas pattern. There is no demonstrated free abdominal air. There is no demonstrated abnormality of the major organs. Cholecystectomy clips are present. There are surgical clips in the pelvis bilaterally. A calyceal stone is again seen in the right kidney. The soft tissues are unremarkable. There are moderate degenerative changes in the visualized spine. There are mild degenerative changes in both hips. RAD/Abd Inc Decub and/or Erect IMPRESSION: No acute abnormalities are seen in the abdomen or pelvis. There is no bowel obstruction. There is no significant retained stool. Electronically Signed: Maria Alejandra Schneider MD at 0:11 EDT Tel Direct: [phone], Service support , CC: Eulogio Alexis MD Crane Follower: Signed BASIC METABOLIC Collected: 10/23/2017 Status: F Source: [place] PROFILE (BMP) 3:14 PM [facility] TYPE CODE TESTS RESULT OUT OF RANGE REFERENCE UNITS LAB L501.0100 74-106 mg/dL High GLU 193 Result Comment: Fasting Glucose result greater than or equal to 126 mg/dL suggests DIABETES MELLITUS per A.D.A. criteria. Please note revised GLUCOSE reference range effective 2017. LAB L501.1000 7-18 mg/dL High BUN 27 LAB L501.1100 0.55-1.02 mg/dL High CREAT,SERUM 1.26 Result Comment: The validity of the calculated GFR AND GFRAA in patients over 70 years has not been determined. Clinical correlation is essential. LAB L501.1110 >60 mL/min Low EST GFR 44 Result Comment: Non- GFR Calc LAB L501.1115 >60 mL/min Low EST GFR - AA 54 Result Comment: GFR Calc LAB L501.1300 10-20 RATIO High BUN/CRE 21.4 LAB L501.2200 8.5-10.1 mg/dL CA Normal 9.2 LAB L501.5300 136-145 mmol/L NA Normal 139 LAB L501.5600 3.5-5.1 mmol/L K Normal 4.3 Result Comment: Slight Hemolysis, Result may be falsely increased. LAB L501.5900 98-107 mmol/L Normal CL 105 LAB L501.6100 21.0-32.0 mmol/L Normal CO2 26.0 LAB L501.6200 5-15 Normal 8 GAP Performed By: #### L500.2500 #### [facility] [address] [facility], [address] 12 LEAD ELECTROCARDIOGRAM Observed: 10/22/2017 Status: F Source: [place] 8:56 PM [facility] Cardiovascular Services [address] [place] [address] 12 Lead EKG 10/16/17 1845 MR#: [id number] Acct: [id number] Name: ANAHI MITCHELL Rep #: [id number] : 1945 71 From: Jose Madsen MD Attending Dr: Sharron Saucedo Status: DIS ISIDORO Ordering Dr: Martín Kay MD Date: 10/16/17 [place] [facility] [place] Sex: F C Admitted: 10/16/17 Test Reason : CP Blood Pressure : / mmHG Vent. Rate : 074 BPM Atrial Rate : 074 BPM P-R Int : 130 ms QRS Dur : 080 ms QT Int : 376 ms P-R-T Axes : 053 038 034 degrees QTc Int : 417 ms Normal sinus rhythm Normal ECG Confirmed by JOSE MADSEN ([id number]), editor managing newspaper JERRI SONI ([id number]) on 10/19/2017 2:39:36 PM Referred By: Eulogio Alexis Confirmed By:JOSE MADSEN 10/19/17 1439 Date Jose Madsen MD CC: Sharron Saucedo; Martín Kay MD; Eulogio Alexis MD Signed DISCHARGE SUMMARY Observed: 10/17/2017 Status: F Source: [place] 4:13 PM [facility] Medical Records Department [address] [place] [address] Discharge Summary 10/17/17 1001 MR#: [id number] Acct: [id number] Name: ANAHI MITCHELL Rep #: [id number] : 1945 71 From: Lesly HOPSON PCP: Reuben BOWMAN,Eulogio Gomez Status: DIS ISIDORO Y Location: [place] [address] ADDENDUM by EMILIANA Carter on 10/17/17 at 1216 Code Visit In addition: Patient's creat 1.46 on admission. Improved to 0.81 at discharge. No acute kidney injury. Suspect mild dehydration. Also suspect underlying chronic kidney disease stage II-III. Lactic acidosis on admission with lactic acid 2.4. Repeat lactic acid 1.4. No sepsis. No infectious etiology. Suspect reactive secondary to severely elevated hyperglycemia on admission. 10/17/17 1216 <Electronically signed by Lesly HOPSON> Date Lesly Carter cc: EMILIANA Carter; Sharron Saucedo; Eulogio Alexis MD; Toi Hunter * Signed Addendum entered and electronically signed by EMILIANA Taylor 10/17/17 12:16: Code Visit In addition: Patient's creat 1.46 on admission. Improved to 0.81 at discharge. No acute kidney injury. Suspect mild dehydration. Also suspect underlying chronic kidney disease stage II-III. Lactic acidosis on admission with lactic acid 2.4. Repeat lactic acid 1.4. No sepsis. No infectious etiology. Suspect reactive secondary to severely elevated hyperglycemia on admission. Original Note: <Lesly Carter - Last Filed: 10/17/17 12:11> Discharge Date and Diagnosis Date of Admission: 10/16/17 Date of Discharge: 10/17/17 - Primary Discharge Diagnosis 1. Type 2 diabetes mellitus with hyperglycemia secondary to noncompliance 2. Reported rectal bleeding prior to admission-stool for occult blood negative. Hemoglobin stable. 3. Abdominal pain/cramping-suspected gastroenteritis. 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) Skin ulcer of abdominal wall with fat layer exposed (Chronic) Smoker (Chronic) Obesity (Chronic) Hypertension (Chronic) Diabetes type 2, uncontrolled (Chronic) Wound, surgical, nonhealing (Chronic) Hyperglycemia (Chronic) Morbid obesity with BMI of 40.0-44.9, adult (Chronic) Open abdominal wall wound (Chronic) painful insulin nodules abd wall (Chronic) late effect medical care with painful insulin nodules abdominal wall Hyperlipidemia (Chronic) MRSA (Chronic) MRSA anterior abdomen wall cellulitis (Chronic) Cerebrovascular disease (Chronic) Status post acute ischemic stroke No residual deficit Diabetes mellitus (Chronic) Hospital Course and Treatment Imaging Results: Diagnostic Data Abdomen CT 10/16/17 16:23 IMPRESSION: Several loops of small bowel demonstrate mild wall thickening suggesting enteritis. No evidence of small bowel obstruction. Large bowel demonstrates fecal retention and diverticulosis without acute diverticulitis. No evidence of colitis. Status post cholecystectomy. Electronically Signed: Adonis Orlando DO at 19:04 EDT Tel , Service support , Operations: None Procedures: None Summary of Care Provided: The patient is a 71 year old F admitted 10/16/17 due to left lower quadrant abdominal pain, rectal bleeding. Patient has a past medical history of obstructive sleep apnea on CPAP, COPD, GERD, depression, type 2 diabetes mellitus, tobacco dependence, obesity, hypertension, hyperlipidemia, CVA, history of panniculectomy with recurrent abdominal wound infections and history of MRSA. Patient's blood glucose on admission was found to be 735. Stool for occult blood negative. Patient denies further rectal bleeding since admission. Hemoglobin stable. Abdominal pain quickly resolved. CT of abdomen showed several loops of small bowel which demonstrated mild wall thickening suggestive of enteritis. No evidence of small bowel obstruction. Large bowel demonstrates fecal retention and diverticulosis without acute diverticulitis. No evidence of colitis. Status post cholecystectomy. Patient denies constipation. Denies nausea, vomiting. No tenderness to palpation of abdomen. Patient had a CT of the abdomen and pelvis in July 2017 for left lower quadrant abdominal pain which showed mild biliary ductal dilatation and nonobstructive calculus in the right kidney. Recommend follow-up with Dr. Hunter, gastroenterology in 1- 2 weeks given recurrent abdominal pain and reported rectal bleeding prior to admission. Patient states she has had a colonoscopy in the past 2 years. Patient may need repeat outpatient colonoscopy. She does state she has a history of rectal bleeding secondary to hemorrhoids and is on Plavix. Given no further rectal bleeding at this time, patient may resume Plavix at discharge given history of CVA. Patient was placed on home insulin regimen and blood sugar improved. Patient states she has not taken any of her home medications for the past 4 days due to stress. Strongly encouraged patient to follow prescribed regimen. Hemoglobin A1c 10/29/15 12.6%. Recommend repeating hemoglobin A1c by primary care physician. Other chronic medical conditions as noted above are stable at this time. Patient seen and examined prior to discharge. Heart rate regular rate and rhythm, no murmur. Lungs clear, diminished. Neuro grossly intact. Abdomen soft, nontender. Vital signs stable. Patient is stable for discharge home with the follow-up recommendations as noted above. This patient was seen by EMILIANA Taylor under the supervision of Dr. Saucedo. Discharge Diet: Low fat/ Low Cholesterol, Carb Control Diet Discharge Activity: Return to Normal Activity Call your doctor if you observe: Fever of 101 or Higher, Inability to have a bowel movement, Shortness of breath, Dizziness, Fainting spells, Chest pain, - - Continued rectal bleeding. Home Medications: Medications to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 mmol/L Normal 2.0 CO2 26.0 LAB L501.6200 5-15 Normal GAP 8 Performed By: #### L500.2500 #### [facility] [address] [place], [place], [address] LACTIC ACID Collected: 10/16/2017 Status: F Source: [place] 4:24 PM [facility] REPOSITORY Order Comment: Yes/No query for Sepsis Lactate Rule Y TYPE CODE TESTS RESULT OUT OF REFERENCE UNITS RANGE LAB L503.6005 0.4-2.0 mmol/L High LACTIC ACID 2.4 Result Comment: Critical Result(s) Called at: 17:35:27 10/16/2017 by: Karla JAIME Performed By: #### L503.6005 #### [facility] [address] [place], [place], [address] TYPE AND SCREEN Collected: 10/16/2017 Status: F Source: [place] 4:24 PM [facility] REPOSITORY Order Comment: Reason for Type AND Screen/Red Cells: HEMORRHAGE, GI BLEED TYPE CODE TESTS RESULT OUT OF RANGE REFERENCE UNITS LAB B10.0800 O Normal BLOOD TYPE GEL POSITIVE LAB B100.4000 Normal Antibody NEGATIVE Screen Performed By: #### B101.7450 #### [facility] [address] [place], [address] ABDOMEN/PEL W ORAL CONT Observed: 10/16/2017 Status: F Source: [place] ONLY 4:24 PM [facility] REPOSITORY [facility] Imaging Services [address] [place] [address] Abdomen/Pel W ORAL Cont Only MR#: [id number] Acct: [id number] Name: ANAHI MITCHELL Rep #: [id number] : 1945 F 71 From: Adonis Orlando DO PCP: Reuben BOWMAN,Eulogio Gomez Status: REG ER Study: Abdomen/Pel W ORAL Cont Only Date of Exam: 10/16/17 Exam# [id number] Ordering Dr: Martín Kay MD STUDY: CT ABDOMEN AND PELVIS WITHOUT CONTRAST REASON FOR EXAM: Female, 71 years old. Bloody stool. GI bleed since yesterday RADIATION DOSAGE (If Supplied By Facility): CTDIvol = ( 20.66 ) mGy, DLP = ( 949.47 ) mGycm TECHNIQUE: Transaxial images were obtained from the dome of the diaphragm to the symphysis pubis with oral contrast, and without intravenous contrast. Sagittal and coronal images were reconstructed. Individualized dose optimization techniques were used for this CT. COMPARISON: 07/17/2017 FINDINGS: Densely calcified granuloma in the right lower lobe. The visualized portions of the heart are within normal limits. Normal liver. There are surgical clips in the gallbladder fossa consistent with a prior cholecystectomy. There are multiple benign calcified granulomata of the spleen. Normal pancreas. Normal bilateral adrenal glands. There is moderate cortical atrophy of the right kidney, consistent with chronic medical renal disease. Nonobstructing mid pole nephrolith measuring 6.6 mm. There is moderate cortical atrophy of the left kidney, consistent with chronic medical renal disease. Normal visualized stomach. Multiple loops of small bowel demonstrating mild wall thickening. No abnormal dilation or obstruction. There are multiple colonic diverticula consistent with diverticulosis. There is non-visualization of the appendix. There is diffuse atherosclerotic calcification of the abdominal aorta, without a demonstrated aneurysm. Normal inferior vena cava. Normal retroperitoneum. Normal urinary bladder. There is absence of the uterus consistent with a prior hysterectomy. There is a small umbilical hernia containing fat. There are diffuse degenerative changes of the visualized lumbar spine. CT/Abdomen/Pel W ORAL Cont Only IMPRESSION: Several loops of small bowel demonstrate mild wall thickening suggesting enteritis. No evidence of small bowel obstruction. Large bowel demonstrates fecal retention and diverticulosis without acute diverticulitis. No evidence of colitis. Status post cholecystectomy. Electronically Signed: Adonis Orlando DO at 19:04 EDT Tel , Service support , CC: Martín Kay MD; Eulogio Alexis MD Crane Follower: Signed LIPASE Collected: 10/16/2017 Status: F Source: [place] 4:24 PM [facility] REPOSITORY TYPE CODE TESTS RESULT OUT OF RANGE REFERENCE UNITS LAB L501.2450 73-393 U/L Normal LIPASE 383 Performed By: #### L501.2450 #### [facility] [address] [facility] [place], [place], [address] LIVER PROFILE Collected: 10/16/2017 Status: F Source: [place] 4:24 PM [facility] REPOSITORY TYPE CODE TESTS RESULT OUT OF RANGE REFERENCE UNITS LAB L501.1500 6.4-8.2 g/dL Normal T PROT 6.8 LAB L501.1800 3.2-5.0 g/dL Normal ALB 3.6 LAB L501.1950 2.2-4.2 g/dL Normal GLOB 3.2 LAB L501.4100 15-37 U/L Low AST 13 LAB L501.4305 45-117 U/L Normal ALK P 65 LAB L501.4405 13-56 U/L Normal ALT 26 LAB L501.4600 0.20-1.00 mg/dL Normal T BILI 0.60 LAB L501.4700 0.00-0.30 mg/dL Normal D BILI 0.10 Performed By: #### L500.3400 #### [facility] [address] [place], [address] Observed: 09/26/2017 Status: F Source: [place] RESPIRATORY PANEL 12:28 PM [facility] MOLECULAR REPOSITORY RP PANEL ADENOVIRUS Not Detected HUMAN METAPHNEUMO Not Detected INFLUENZA A Not Detected INFLUENZA A (SUBTYPE H1) Not Detected INFLUENZA A (SUBTYPE H3) Not Detected INFLUENZA B Not Detected PARAINFLUENZA 1 Not Detected PARAINFLUENZA 2 Not Detected PARAINFLUENZA 3 Not Detected PARAINFLUENZA 4 Not Detected RHINOVIRUS Not Detected RSV A Not Detected RSV B Not Detected NAAT METHOD Testing was performed using nucleic acid amplification Performed By: #### M100.638 #### [facility] [address] [place], [address] CBC W/DIFF, AUTOMATED Collected: 09/13/2017 Status: F Source: [place] 9:32 AM [facility] REPOSITORY TYPE CODE TESTS RESULT OUT OF RANGE REFERENCE UNITS LAB L100.1000 4.4-11.0 K/mm3 Normal WBC 7.9 LAB L100.1200 4.2-5.4 M/mm3 Normal RBC 4.28 LAB L100.1300 12.0-15.0 g/dl Normal HGB 13.6 LAB L100.1400 37-47 % Normal HCT 40.2 LAB L100.1500 81-99 fL Normal MCV 93.9 LAB L100.1600 27.0-32.0 pg Normal MCH 31.8 LAB L100.1700 32-36 g/gl Normal MCHC 33.8 LAB L100.1810 11.6-14.6 % Normal RDW CV 12.6 LAB L100.1820 35.1-43.9 fl Normal RDW SD 41.5 LAB L100.1900 150-450 K/mm3 Normal PLT 169 LAB L100.2000 6.2-12.0 fl Normal MPV 11.0 LAB L100.2100 47-70 % Normal NEUT% 65.9 LAB L100.2200 19-41 % Normal LY% 24.1 LAB L100.2300 0-10 % Normal MONO% 7.4 LAB L100.2400 0-5 % Normal EO% 2.1 LAB L100.2500 0-1 % Normal BASO% 0.4 LAB L100.2550 0.0-0.9 % Normal IM GRAN % 0.100 Result Comment: IG% - Immature Granulocytes (promyelocytes, myelocytes and metamyelocytes) > 1% indicates that a LEFT SHIFT is Present. LAB L100.2620 2.0-7.7 X10 3/uL Normal Absolute Neut 5.2 LAB L100.2720 0.83-4.51 X10 3/ul Normal Absolute Lymph 1.91 Performed By: #### L100.0100 #### [facility] [address] [place], [place], [address] VITAMIN D,25 HYDROXY Collected: 09/13/2017 Status: F Source: [place] 9:32 AM [facility] REPOSITORY TYPE CODE TESTS RESULT OUT OF RANGE REFERENCE UNITS LAB L506.1000 29.95-100.01 ng/mL Normal Vitamin D 35.3 25-OH Result Comment: Vitamin D 25(OH) Status Range Deficiency <20 ng/mL (50nmol/L) Insuffciency 20 - 30 ng/mL (50 - 75 nmol/L) Sufficiency 30 - 100 ng/mL (75 - 250 nmol/L) Toxicity >100 ng/mL (>250 nmol/L) Performed By: #### L506.1000 #### [facility] [address] [place], [address] COMPREHENSIVE METABOLIC Collected: 09/13/2017 Status: F Source: [facility] 9:32 AM [facility] REPOSITORY TYPE CODE TESTS RESULT OUT OF RANGE REFERENCE UNITS LAB L501.0100 74-106 mg/dL High GLU 350 Result Comment: Glucose result greater than or equal to 200 mg/dL suggests DIABETES MELLITUS per A.D.A. criteria. Please note revised GLUCOSE reference range effective 2017. LAB L501.1000 7-18 mg/dL High BUN 24 LAB L501.1100 0.55-1.02 mg/dL High CREAT,SERUM 1.30 Result Comment: The validity of the calculated GFR AND GFRAA in patients over 70 years has not been determined. Clinical correlation is essential. LAB L501.1110 >60 mL/min Low EST GFR 43 Result Comment: Non- GFR Calc LAB L501.1115 >60 mL/min Low EST GFR - AA 52 Result Comment: GFR Calc LAB L501.1300 10-20 RATIO Normal BUN/CRE 18.5 LAB L501.1500 6.4-8.2 g/dL T Normal PROT 7.2 LAB L501.1800 3.2-5.0 g/dL Normal ALB 3.8 LAB L501.1950 2.2-4.2 g/dL Normal GLOB 3.4 LAB L501.2000 0.9-2.4 RATIO Normal A/G 1.1 LAB L501.2200 8.5-10.1 mg/dL CA Normal 9.0 LAB L501.4100 15-37 U/L Normal AST 16 LAB L501.4305 45-117 U/L Normal ALK P 49 LAB L501.4405 13-56 U/L Normal ALT 35 Result Comment: Please note revised ALT reference range effective 2017. LAB L501.4600 0.20-1.00 mg/dL Normal T BILI 0.80 LAB L501.5300 136-145 mmol/L Normal NA 136 LAB L501.5600 3.5-5.1 mmol/L Normal K 4.3 LAB L501.5900 98-107 mmol/L Normal CL 100 LAB L501.6100 21.0-32.0 mmol/L Normal CO2 28.0 LAB L501.6200 5-15 Normal GAP 8 Performed By: #### L500.4050, L501.9520 #### [facility] [address] [place], [address] THYROID STIM HORMONE Collected: 09/13/2017 Status: F Source: [place] ([facility]) 9:32 AM [facility] REPOSITORY TYPE CODE TESTS RESULT OUT OF RANGE REFERENCE UNITS LAB L501.9520 0.358-3.74 uIU/mL Normal TSH 0.93 Performed By: #### L500.4050, L501.9520 #### [facility] [address] [place], [address] 12 LEAD ELECTROCARDIOGRAM Observed: 09/05/2017 Status: F Source: [place] 3:29 PM [facility] REPOSITORY [facility] Cardiovascular Services [address] [place] [address] 12 Lead EKG 08/30/17 1630 MR#: [id number] Acct: [id number] Name: ANAHI MITCHELL Rep #: [id number] : 1945 71 From: Martín Ramirez MD Attending Dr: Status: DEP ER Ordering Dr: Jose Matamoros DO Date: 08/30/17 Location: ED Sex: F C Admitted: Test Reason : GEN ILL Blood Pressure : / mmHG Vent. Rate : 093 BPM Atrial Rate : 093 BPM P-R Int : 126 ms QRS Dur : 078 ms QT Int : 374 ms P-R-T Axes : 038 025 032 degrees QTc Int : 465 ms Normal sinus rhythm Septal infarct , age undetermined Abnormal ECG Confirmed by MARTÍN RAMIREZ MD ([id number]), editor managing newspaper JERRI SONI ([id number]) on 09/05/2017 3:28:54 PM Referred By: ROSENDO Confirmed By:MARTÍN RAMIREZ MD 09/05/17 1528 Date Martín Ramirez MD CC: Jose Matamoros DO; Eulogio Alexis MD Signed EMERGENCY DEPARTMENT Observed: 08/31/2017 Status: F Source: [place] SUMMARY 4:32 PM [facility] REPOSITORY [facility] Medical Records Department [address] [place] [address] Emergency Department Summary 08/31/17 0021 MR#: [id number] Acct: [id number] Name: ANAHI MITCHELL Rep #: [id number] : 1945 71 From: Jose Matamoros DO PCP: Eulogio Alexis MD, Chi Status: DEP ER - ER Visit Summary Date of Service: 08/31/17 Chief Complaint: Fatigue History of Present Illness: The patient is a 71 F patient states for the past 3 hours she is felt extremely fatigued. She tells me that she started the day feeling fine. She was cleaning the oven. Then all of a sudden fatigued today. She cannot really describe it any further. She denies any pain. 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 Physical Examination: Afebrile vital signs are stable Gen: Well-nourished well-developed Head: Normocephalic atraumatic Eyes: Perrl EOMI ENT: TMs clear no rhinorrhea moist mucous membranes Neck: Supple no lymphadenopathy no JVD nontender CVS: Regular rate rhythm no murmurs normal S1-S2 Respiratory: No distress clear to auscultation bilaterally chest nontender Abdomen: Soft nontender nondistended normal bowel sounds no masses Back: Nontender Extremity: Nontender no edema Skin: Normal color no rash Neuro: alert orientated 3 CN II-XII intact she needs help getting out of the wheelchair. At time the patient appears that she is going to fall asleep. Test Results: EKG sinus at a rate of 93. CBC chemistries showed a BUN of 35 and creatinine 1.37. Liver lipase normal. Urinalysis 5-10 white cells. Troponin less than 0.02. Toxicology the urine negative alcohol negative carbon monoxide 0.5. ABG negative. CT the brain chest x-ray showed no acute. TSH 0.82 Emergency Department Course and Treatment: Patient's chief complaint is fatigue. She cannot qualify or quantify anything more other than tell me she is tired. Therefore a broad workup was invoked. The patient began to be tired of being here. Somehow she was able to stand up and walk down the hallway on her own. She is directed back to the room. Her son yelled at nursing. Patient then got up and walked down the hallway again was instructed to return to the room to have her IV removed. She states she will she remove it herself. It would appear that the patient is probably looking for some degree of secondary gain. I do not find anything focal. Patient has decided to leave the emergency department. Impression: 1. Fatigue 2. ED elopement This note was generated with [employer] dictation software. It may contain incorrect words, spelling, and punctuation that were not noted in review of the chart prior to signing ED Disposition - Plan for ED Patient: Chief Complaint: Fatigue Referrals: Eulogio Alexis Chi, MD [Primary Care Provider] - What to do if you have Problems For any increased pain, shortness of breath, bleeding, nausea or vomiting, chest pain, or any unexpected problems, contact your Primary Care Provider. Call [facility] ([phone]) or report to the closest Emergency Room. Call 911 if necessary. 08/31/17 6015 <Electronically signed by Jose Matamoros DO> Date Jose Matamoros DO Jamariigner Signature (If Indicated): Date CC: Eulogio Alexis MD URINE DRUG SCREEN Collected: 08/30/2017 Status: F Source: [place] (VISTA) 6:20 PM [facility] REPOSITORY TYPE CODE TESTS RESULT OUT OF RANGE REFERENCE UNITS LAB L505.0075 TO BE Normal CONFIRMED Result Comment: CONFIRMATORY TESTING FOR ALL POSITIVE URINE DRUG SCREEN RESULTS WILL ONLY BE SENT OUT UPON PHYSICIAN ORDER. VISTA Urine Drug Screen methods provide only preliminary analytical test results. A more specific alternate chemical method must be used in order to obtain a confirmed analytical result. Gas chromatography/mass spectrometery (GC/MS) is the preferred confirmatory method. Clinical consideration and professional judgement should be applied to any drug of abuse test result, particularly when preliminary positive results are used. URINE TCA TESTING MUST BE ORDERED SEPARATELY. USE TEST MNEMONIC: [facility] LAB L505.5005 VISTA UDS PH 5 Normal LAB L505.5015 <1000 ng/mL AMPHETAMINES Normal NEGATIVE LAB L505.5025 < 200 ng/mL BARBITIURATES Normal NEGATIVE LAB L505.5035 < 200 ng/mL BENZODIAZIPINE Normal NEGATIVE LAB L505.5045 < 300 ng/mL COCAINE Normal NEGATIVE LAB L505.5055 < 500 ng/mL ECSTACY Normal NEGATIVE LAB L505.5065 < 300 ng/mL METHADONE Normal NEGATIVE LAB L505.5075 < 300 ng/mL OPIATES Normal NEGATIVE LAB L505.5085 < 25 ng/mL PCP Normal NEGATIVE LAB L505.5095 < 50 ng/mL THC Normal NEGATIVE Performed By: #### L505.5000 #### [facility] [address] [place], [address] URINALYSIS, COMPLETE Collected: 08/30/2017 Status: F Source: [place] 6:20 PM [facility] REPOSITORY Order Comment: Order Date: 08/30/17 How was Urine Obtained? CATHETER SPECIMEN TYPE CODE TESTS RESULT OUT OF RANGE REFERENCE UNITS LAB L400.3000 Yellow COLOR Normal Yellow LAB L400.3050 Clear Normal CLARITY Clear LAB L400.3200 Normal mg/dl High GLUCOSE, UR 1000 LAB L400.3300 Negative mg/dL Normal BILIRUBIN URINE Negative LAB L400.3400 Negative mg/dl Normal KETONE UR Negative LAB L400.3465 1.002-1.030 Normal SP.GR. DIPSTX 1.015 LAB L400.3550 5.0 - 8.0 pH UR Normal 5.0 LAB L400.3600 Negative mg/dl PROT Normal DIPSTX Negative LAB L400.3700 Normal mg/dl Normal UROBILI Normal LAB L400.3750 Negative Normal NITRITE UR Negative LAB L400.3780 Negative /ul Normal OCCULT BLOOD-UR Negative LAB L400.3800 Negative /ul High LEUK ESTERASE 100 LAB L400.4050 0-5 /hpf WBC Normal 5-10 SEEN LAB L400.4100 0-5 /hpf 0 Normal RBC-UA SEEN LAB L400.4150 5-10 /hpf SQUAM Normal EPI 0-5 SEEN LAB L400.4300 None Seen /hpf 0 Normal BACTERIA SEEN LAB L400.4350 <or=2+ /hpf 0 Normal MUCUS, URINE SEEN Performed By: #### L400.0001 #### [facility] [address] [place], [place], [address] BLOOD GASES BY CPS Collected: 08/30/2017 Status: F Source: [place] 4:57 PM [facility] REPOSITORY TYPE CODE TESTS RESULT OUT OF RANGE REFERENCE UNITS LAB L9000.9990 Normal BLD GAS TYPE ART LAB L9001.1000 Normal SITE R Radial LAB L9001.1010 Normal SAUD TEST POS LAB L9001.1050 O2 Normal Delivery Dev Room Air LAB L9001.1104 Normal Results To ED LAB L9001.1105 Normal Time Given 1650 LAB L9001.1110 7.35-7.45 pH Normal - I-STAT 7.43 LAB L9001.1210 35-45 mmHg Normal pCO2 - ISTAT 37.6 LAB L9001.1310 75-100 mmHG Low PO2 I-STAT 67 LAB L9001.2300 22-26 mmol/L Normal HCO3 ISTAT 25.0 LAB L9001.2400 -2 to +2 mmol/L BE Normal ISTAT 1 LAB L9001.2415 mmol/L Normal TOTAL CO2 26 ISTAT LAB L9001.2425 95-99 % Low SO2 ISTAT 94 Performed By: #### L9000.0800 #### [facility] Point of Care [address] [place] [address] Observed: 08/30/2017 Status: F Source: [place] INFLUENZA A+B (RAPID 4:50 PM [facility] BRIGHT) REPOSITORY Order Date: 08/30/17 FLU A/B Rapid Negative test results should be confirmed by culture. Order Rapid Viral Culture for Influenzae A+B (864571) if clinically indicated. Influenza Ag, Direct Presumptive NEGATIVE for Influenza A/B Antigen (See Note) Performed By: #### M101.0101 #### [facility] [address] [place] [address], [address] THYROID STIM HORMONE Collected: 08/30/2017 Status: F Source: [place] (TSH) 4:44 PM [facility] REPOSITORY TYPE CODE TESTS RESULT OUT OF RANGE REFERENCE UNITS LAB L501.9520 0.358-3.74 uIU/mL Normal TSH 0.82 Performed By: #### L501.9520 #### [facility] [address] [place] [address], [address] CBC W/DIFF, AUTOMATED Collected: 08/30/2017 Status: F Source: [place] 4:40 PM [facility] REPOSITORY TYPE CODE TESTS RESULT OUT OF RANGE REFERENCE UNITS LAB L100.1000 4.4-11.0 K/mm3 Normal WBC 11.0 LAB L100.1200 4.2-5.4 M/mm3 Normal RBC 4.31 LAB L100.1300 12.0-15.0 g/dl Normal HGB 13.5 LAB L100.1400 37-47 % Normal HCT 39.9 LAB L100.1500 81-99 fL Normal MCV 92.6 LAB L100.1600 27.0-32.0 pg Normal MCH 31.3 LAB L100.1700 32-36 g/gl Normal MCHC 33.8 LAB L100.1810 11.6-14.6 % Normal RDW CV 12.5 LAB L100.1820 35.1-43.9 fl Normal RDW SD 42.2 LAB L100.1900 150-450 K/mm3 Normal PLT 200 LAB L100.2000 6.2-12.0 fl Normal MPV 11.0 LAB L100.2100 47-70 % Normal NEUT% 66.2 LAB L100.2200 19-41 % Normal LY% 22.0 LAB L100.2300 0-10 % Normal MONO% 9.5 LAB L100.2400 0-5 % Normal EO% 1.5 LAB L100.2500 0-1 % Normal BASO% 0.5 LAB L100.2550 0.0-0.9 % Normal IM GRAN % 0.300 Result Comment: IG% - Immature Granulocytes (promyelocytes, myelocytes and metamyelocytes) > 1% indicates that a LEFT SHIFT is Present. LAB L100.2620 2.0-7.7 X10 3/uL Normal Absolute Neut 7.3 LAB L100.2720 0.83-4.51 X10 3/ul Normal Absolute Lymph 2.41 Performed By: #### L100.0100 #### [facility] [address] [facility] [place], [place], [address] CARBOXYHEMOGLOBIN FRAC (CO) Collected: Status: F Source: [place] 08/30/2017 4:40 PM [facility] REPOSITORY TYPE CODE TESTS RESULT OUT OF RANGE REFERENCE UNITS LAB L511.0130 0.0-1.5 % Normal COHb 0.5 Result Comment: * NON-SMOKER RANGE 1.6 - 5.0% * LIGHT SMOKER RANGE 5.1 - 9.0% * HEAVY SMOKER RANGE Performed By: #### L511.0130 #### [facility] [address] [facility] [place], [place], [address] ALCOHOL, BLOOD Collected: 08/30/2017 Status: F Source: [place] (MEDICAL)-SERUM 4:40 PM [facility] REPOSITORY TYPE CODE TESTS RESULT OUT OF RANGE REFERENCE UNITS LAB L501.9100 mg/dL Normal SERUM 7.0 ETOH Result Comment: The serum:whole blood ethanol ratio is approximately 1.14 and varies slightly with hematocrit. Medical Alcohol reference interval and critical value in non-tolerant individuals; 50 - 100 Impairment 100 Intoxication 100 - 250 Severe Poisoning 250 - 400 Deep/possible fatal coma Performed By: #### L501.9100 #### [facility] [place], [place], [address] COMPREHENSIVE METABOLIC Collected: 08/30/2017 Status: F Source: [place] YATES 4:40 PM [facility] REPOSITORY Order Comment: 'TROP' Serial specimen #1, #2, #3, or #4: 1 TYPE CODE TESTS RESULT OUT OF RANGE REFERENCE UNITS LAB L501.0100 74-106 mg/dL High GLU 179 Result Comment: Fasting Glucose result greater than or equal to 126 mg/dL suggests DIABETES MELLITUS per A.D.A. criteria. Please note revised GLUCOSE reference range effective 2017. LAB L501.1000 7-18 mg/dL High BUN 35 LAB L501.1100 0.55-1.02 mg/dL High CREAT,SERUM 1.37 Result Comment: The validity of the calculated GFR AND GFRAA in patients over 70 years has not been determined. Clinical correlation is essential. LAB L501.1110 >60 mL/min Low EST GFR 40 Result Comment: Non- GFR Calc LAB L501.1115 >60 mL/min Low EST GFR - AA 49 Result Comment: GFR Calc LAB L501.1255 ml/min Normal Estimated CRCL 28.42 LAB L501.1300 10-20 RATIO High BUN/CRE 25.5 LAB L501.1500 6.4-8. g/dL Normal 2 T PROT 7.1 LAB L501.1800 3.2-5. g/dL Normal 0 ALB 3.8 LAB L501.1950 2.2-4. g/dL Normal 2 GLOB 3.3 LAB L501.2000 0.9-2. RATIO Normal 4 A/G 1.2 LAB L501.2200 8.5-10 mg/dL Normal .1 CA 9.5 LAB L501.4100 15-37 U/L Low AST 10 LAB L501.4305 45-117 U/L Normal ALK P 53 LAB L501.4405 13-56 U/L Normal ALT 25 Result Comment: Please note revised ALT reference range effective 2017. LAB L501.4600 0.20-1.00 mg/dL Normal T BILI 0.60 LAB L501.5300 136-145 mmol/L Normal NA 138 LAB L501.5600 3.5-5.1 mmol/L Normal K 4.3 LAB L501.5900 98-107 mmol/L Normal CL 101 LAB L501.6100 21.0-32.0 mmol/L Normal CO2 28.0 LAB L501.6200 5-15 Normal GAP 9 Performed By: #### L500.4050, L501.2450, L501.4010 #### [facility] [address] [place], [address] LIPASE Collected: 08/30/2017 Status: F Source: [place] 4:40 PM [facility] REPOSITORY Order Comment: 'TROP' Serial specimen #1, #2, #3, or #4: 1 TYPE CODE TESTS RESULT OUT OF RANGE REFERENCE UNITS LAB L501.2450 73-393 U/L Normal LIPASE 345 Performed By: #### L500.4050, L501.2450, L501.4010 #### [facility] [address] [place], [address] TROPONIN-I Collected: 08/30/2017 Status: F Source: [place] 4:40 PM [facility] REPOSITORY Order Comment: 'TROP' Serial specimen #1, #2, #3, or #4: 1 TYPE CODE TESTS RESULT OUT OF RANGE REFERENCE UNITS LAB L501.4010 <0.06 ng/mL Normal < 0.02 TROPONIN-I Result Comment: TROPONIN-I EXPECTED VALUES <0.05 NEGATIVE 0.06 - 0.59 AT RISK OF HI > OR = 0.60 SUGGEST HI Performed By: #### L500.4050, L501.2450, L501.4010 #### [facility] [address] [place], [place], [address] BRAIN/HEAD WITHOUT Observed: 08/30/2017 Status: F Source: [place] CONTRAST 4:25 PM [facility] REPOSITORY [facility] Imaging Services [address] [place] [address] Brain/Head without Contrast MR#: [id number] Acct: [id number] Name: ANAHI MITCHELL Rep #: [id number] : 1945 F 71 From: Peter Carrera MD PCP: Eulogio Alexis MD, Chi Status: REG ER Study: Brain/Head without Contrast Date of Exam: 08/30/17 Exam# [id number] Ordering Dr: Jose Matamoros DO STUDY: CT BRAIN WITHOUT CONTRAST REASON FOR EXAM: Female, 71 years old. CONFUSION RADIATION DOSAGE (If Supplied By Facility): CTDIvol = ( 44.99 ) mGy, DLP = ( 745.49 ) mGycm TECHNIQUE: Transaxial CT imaging of the brain was performed without administration of intravenous contrast material. COMPARISON: None. FINDINGS: Normal soft tissue structures. Normal calvarium. There are calcifications around the carotid artery. These are noted in the cavernous carotid arteries. There is mild cerebral atrophy with widening of the extra- axial spaces and ventricular dilatation. There are areas of decreased attenuation within the white matter tracts of the supratentorial brain, consistent with microvascular disease changes. Normal basal ganglia and thalami. Normal brainstem. There is mild cerebellar atrophy. There is no intracranial hemorrhage. There are no findings of an acute ischemic infarction. Normal visualized paranasal sinuses. CT/Brain/Head without Contrast IMPRESSION: Chronic involutional changes of the brain. There are no acute findings. Electronically Signed: Peter Carrera MD at 18:04 EST , Service support , CC: Jose Matamoros DO; Eulogio Alexis MD Crane Follower: Signed CHEST 1 VIEW Observed: 08/30/2017 Status: F Source: [place] (PORTABLE) 4:25 PM [facility] REPOSITORY [facility] Imaging Services [facility] [place] [address] [place] [address] Chest 1 View (Portable) MR#: [id number] Acct: [id number] Name: ANAHI MITCHELL Rep #: [id number] : 1945 F 71 From: Baljeet Chen MD PCP: Eulogio Alexis MD, Chi Status: DEP ER Study: Chest 1 View (Portable) Date of Exam: 08/30/17 Exam# [id number] Ordering Dr: Jose Matamoros DO STUDY: X-RAY CHEST REASON FOR EXAM: Female, 71 years old. Weakness. TECHNIQUE: Single AP portable view of the chest. COMPARISON: Comparison is made with prior study dated November 28, 2015. FINDINGS: EKG electrodes are seen. The lungs are clear and expanded. There is no demonstrated pleural abnormality. Normal size heart. Normal mediastinum and elva. Normal visualized pulmonary arteries. There is atherosclerotic calcification of the aortic arch with tortuosity. There are diffuse degenerative changes of the visualized thoracic spine. Normal visualized ribs, clavicles, and shoulders. There is no demonstrated abnormality of the visualized soft tissue structures of the upper abdomen. RAD/Chest 1 View (Portable) IMPRESSION: No acute abnormality is seen. Electronically Signed: Baljeet Chen MD at 13:44 EST Tel [phone], Service support , CC: Jose Matamoros DO; Eulogio Alexis MD Crane Follower: Signed BEDSIDE GLUCOSE Collected: 08/30/2017 Status: F Source: [place] 3:53 PM [facility] REPOSITORY TYPE CODE TESTS RESULT OUT OF REFERENCE UNITS RANGE LAB L501.080 70-110 mg/dL High BEDSIDE GLU 204 Result Comment: MANAGEMENT OF PATIENT CARE PER NURSING PROTOCOL Performed By: #### L501.080 #### [facility] Point of Care [address] [place] [address] ALLERGIES ALLERGIES DATE TYPE / CODE NAME / CODE REACTION SEVERITY SOURCE Drug Penicillins/F001 Hives Unknown [place] 8 Allergy/747164659( 685190(RXNORM) Count Includes [facility] SNOMED CT) Hospital Repository Drug codeine/[id number] Shortness of Unknown [place] 8 Allergy/644781298( 50(RXNORM) breath Count Includes [facility] SNOMED CT) Hospital Repository Miscellaneous CILLINS Unknown Unknown [place] 8 Allergy/014611177( Count Includes [facility] SNOMED CT) Hospital Repository Drug ciprofloxacin/F0 Rash Unknown [place] 8 Allergy/896684527( 02670116(RXNORM) Count Includes [facility] SNOMED CT) Hospital Repository DRUG CODEINE OTHER: SEE C [place] 5 INGREDI/088136179( Clinic Main SNOMED CT) [place] Repository Drug PENICILLINS HIVES [place] Class/220141829(SN Clinic Main OMED CT) [place] Repository NG/944069861([facility] CODEINE [facility] D [facility]) [facility] Repository NG/178282166([place] PENICILLINS [facility]) Health System Repository ENCOUNTERS ENCOUNTERS ADMIT/DISCHARGE ACCOUNT NUMBER ADMITTING ENCOUNTER LOCATION SOURCE CLASS 07/25/2018/07/25/19 [id number] Ambulatory [address] Other [place] Repository 07/18/2018/07/18/19 [id number] Ambulatory [address] Other [place] Repository 07/11/2018/07/11/19 [id number] Ambulatory [address] [place] Repository 07/09/2018/07/10/19 [id number] Ambulatory [address] [place] Repository 06/27/2018/06/29/20 [id number] [place], Ambulatory [address] ding:LP1Edwc Repository : [id number]: 1 06/27/2018 [id number] [place], Ambulatory BMSBuilding: [facility]elle Dougherty [facility] Repository 06/27/2018 [id number] [place], Ambulatory BMSBuilding: [facility]elle Dougherty [facility]MS[facility] Repository 06/27/2018 [id number] [place], Ambulatory BMSBuilding: Shanelle Dougherty [facility] Repository 06/26/2018/06/26/20 [id number] Emergency [place] ding:ED Repository 06/23/2018/06/23/20 [id number] Emergency [place] ding:ED Repository 06/22/2018/06/22/20 [id number] Ambulatory [address] Other [place] Repository 06/21/2018/06/21/20 [id number] Emergency [place] ding:ED Repository 06/18/2018/06/19/20 [id number] Ambulatory [address] Main [place] Repository 06/17/2018/06/17/20 [id number] Emergency [place] [address] ding:ED Repository 06/05/2018/06/07/20 [id number] Ambulatory [address] Main [place] Repository 06/05/2018/06/06/20 [id number] Ambulatory [address] [place] Repository 05/29/2018/05/29/20 [id number] Ambulatory [address] [place] Repository 05/29/2018/05/30/20 [id number] Ambulatory [address] [place] Repository 05/16/2018 [id number] Ambulatory [facility] ding:POLAB3 Repository 05/03/2018/05/15/20 [id number] Eulogio Alexis Chi Inpatient [address] ding:TCURoom Repository : KPT95Ugy: 1 04/24/2018/05/03/20 [id number] FRANK, Inpatient [address] ([facility]) Encounter [facility] Other [place] Repository 04/24/2018/05/03/20 [id number] MD FRANK Inpatient [place] [address] MEDICAL Repository CENTERBuildi ng:EMURoom: 4401Bed: 01 04/24/2018/04/24/20 [id number] Emergency [address] ding:ED Repository 04/23/2018/04/24/20 [id number] Ambulatory [address] Main [place] Repository 04/19/2018/04/20/20 [id number] Ambulatory [address] [place] Repository 03/06/2018/03/07/20 [id number] Ambulatory [address] Main [place] Repository 02/19/2018/08/20 [id number] Ambulatory [address] Repository 02/19/2018/02/21/20 [id number] Ambulatory [address] Repository 02/15/2018/02/17/20 [id number] Ambulatory [address] Repository 02/12/2018/02/13/20 [id number] Emergency [address] ding:ED Repository 11/21/2017 [id number] Ambulatory [facility] ding:POLAB3 Repository 10/23/2017 [id number] Ambulatory [facility] ding:POLAB3 Repository 10/16/2017/10/18/19 [id number] [facility], Ambulatory [address] ding:KD5Rnte Repository : BP692Psm: 1 10/16/2017 [id number] [place], Ambulatory BMSBuilding: Shanelle Kombian BMS[facility] Repository 10/16/2017 [id number] [facility], Ambulatory BMSBuilding: [place] Kombian [facility] Repository 09/26/2017 [id number] Ambulatory [facility] ding:PSN Repository 09/13/2017 [id number] Ambulatory [facility] ding:POLAB3 Repository 08/30/2017/08/30/19 [id number] Emergency [address] ding:ED Repository PAYERS PAYERS ENCOUNTER GUARANTOR PAYER SUBSCRIBER SOURCE 06/27/2018 ANAHI J Primary ANAHI J [place] [id number] [facility] STEPHENDOB: Community [facility] STAPT *IN [facility] [id number] Number: Repository [id number]: [phone] [id number] [phone] Date:0065-16-60EH [address] [address]KQ: 06/27/2018 Secondary NOT GIVENUNK [place] Insurance:SELF PAY [facility] Number: Effective Repository Date:2018-06-27 06/27/2018 ANAHI J Primary ANAHI J [place] [id number] Insurance:[facility] SCOTTDOB: Community [address] *IN [place] [id number] Number: Repository [address]Nox: 330 [id number] [phone] (HP) Date:8832-14-64RS[address] [address]TR: 06/27/2018 Secondary NOT GIVENUNK [place] Insurance:SELF PAY [facility] Number: Effective Repository Date:2018-06-27 06/27/2018 ANAHI J Primary ANAHI J [place] [id number] Insurance:[facility] SCOTTDOB: Community [address] *IN [address] Number: Repository [address]Kgh: 330 [id number] [phone] Date:9679-72-92XI [address] [address]DH: 06/27/2018 Secondary NOT GIVENUNK [place] Insurance:SELF PAY [facility] Number: Effective Repository Date:2018-06-27 06/27/2018 ANAHI J Primary ANAHI J [place] [id number] Insurance:[facility] SCOTTDOB: Community [address] *IN [address] [place] [address] Number: Repository [id number]: 330 [id number] [phone] (HP) Date:0000-92-36DU[address] [address]DA: 06/27/2018 Secondary NOT GIVENUNK [place] Insurance:SELF PAY [facility] Number: Effective Repository Date:2018-06-27 06/26/2018 ANAHI J Primary ANAHI J [place] [id number] Insurance:[facility] SCOTTDOB: Community [address] *IN [address] [place] [address] Number: Repository [id number]: 330 [id number] [phone] (HP) Date:2600-21-32YT [address] [address]LA: 06/26/2018 Secondary NOT GIVENUNK [place] Insurance:SELF PAY Count Includes [facility] Number: Effective Repository Date:2018-06-26 06/23/2018 ANAHI J Primary ANAHI J [place] [id number] [facility] SCOTTDOB: Community [address] *IN [facility] [id number] Number: Repository [id number]: 330 [id number] [phone] (HP) Date:6776-73-83EI [address] [address]FS: 06/23/2018 Secondary NOT GIVENUNK [place] Insurance:SELF PAY [facility] Number: Effective Repository Date:2018-06-23 06/21/2018 ANAHI J Primary ANAHI J [place] [id number] Insurance:[facility] SCOTTDOB: Community [address] *IN [facility] [id number] Number: Repository [address]Nnf: 330 [id number] [phone] (HP) Date:5350-07-62CT [address] [address]GO: 06/21/2018 Secondary NOT GIVENUNK [place] Insurance:SELF PAY [facility] Number: Effective Repository Date:2018-06-21 06/17/2018 ANAHI J Primary ANAHI J [place] [id number] Insurance:[facility] SCOTTDOB: Community [address] *IN [facility] [id number] Number: Repository [id number]: 330 [id number] [phone] (HP) Date:9850-66-00DX [address] [address]UU: 06/17/2018 Secondary NOT GIVENUNK [place] Insurance:SELF PAY [facility] Number: Effective Repository Date:2018-06-17 05/16/2018 ANAHI J Primary ANAHI J [place] [id number] Insurance:[facility] SCOTTDOB: Community [address] *IN [facility] [id number] Number: Repository [address]Kyj: 330 [id number] [phone] (HP) Date:2824-97-77YQ [address] [address]LE: 05/16/2018 Secondary NOT GIVENUNK [place] Insurance:SELF PAY [facility] Number: Effective Repository Date:2018-05-16 05/03/2018 ANAHI J Primary ANAHI J [place] [id number] [facility] *IN [facility] [id number] Number: Repository [id number]: 330 [id number] [phone] (HP) Date:7820-23-98XR [address] [address]KR: 05/03/2018 Secondary ANAHI J [place] Insurance:MEDICARE SCOTTDOB: Count Includes [facility] PART A [facility] [id number] Hospital Number: Repository [id number] Date:2018-05-03 05/03/2018 Tertiary NOT GIVENUNK [place] Insurance:SELF PAY [facility] Number: Effective Repository Date:2018-05-03 04/24/2018 ANAHI J Primary ANAHI J [place] [facility] SCOTTDOB: Insurance:[facility] SCOTTB: Health System MEDICAREPolicy [id number] Repository [address] Number: [address] [id number]: (330) Date: [phone] (HP) 04/24/2018 Secondary ANAHI J [place] [facility] MEDICAIDPolicy [id number] Repository Number: [id number] Date: 04/24/2018 ANAHI J Primary ANAHI J [place] [id number] Insurance:[facility] SCOTTDOB: Community [address] *IN [facility] [id number] Number: Repository [address]Qzw: 330 [id number] [phone] (HP) Date:2884-03-49HV [address] [address]BY: 04/24/2018 Secondary NOT GIVENUNK [place] Insurance:SELF PAY Count Includes [facility] Number: Effective Repository Date:2018-04-24 02/12/2018 ANAHI J Primary ANAHI J [place] [id number] Insurance:[facility] SCOTTDOB: Community [address] *IN [facility] [id number] [place] Number: Repository [id number]: 330 [id number] [phone] (HP) Date:8956-03-78LO [address] [address]PW: 02/12/2018 Secondary NOT GIVENUNK [place] Insurance:SELF PAY [facility] Number: Effective Repository Date:2018-02-12 11/21/2017 ANAHI J Primary ANAHI J [place] [id number] Insurance:[facility] SCOTTDOB: Community HONORIO DRLOT *IN [facility] [id number] [place] Number: Repository [address]Vqv: 330 [id number] [phone] (HP) Date:9955-89-15JF[address] [address]FQ: 11/21/2017 Secondary NOT GIVENUNK [place] Insurance:SELF PAY [facility] Number: Effective Repository Date:2017-11-21 10/23/2017 ANAHI J Primary ANAHI J [place] [id number] Insurance:[facility] SCOTTDOB: Community HONORIO DRLOT *IN [facility] [id number] [place] Number: Repository [address]Aeq: 330 [id number] [phone] (HP) Date:1926-72-46UK [address] [address]ZW: 10/23/2017 Secondary NOT GIVENUNK [place] Insurance:SELF PAY Count Includes [facility] Number: Effective Repository Date:2017-10-23 10/16/2017 ANAHI J Primary ANAHI J [place] [id number] Insurance:[facility] SCOTTDOB: Community HONORIO DRLOT *IN [facility] [id number] Number: Repository [address]Oey: 330 [id number] [phone] (HP) Date:0878-43-68JD [address] [address]KR: 10/16/2017 Secondary NOT GIVENUNK [place] Insurance:SELF PAY [facility] Number: Effective Repository Date:2017-10-16 10/16/2017 ANAHI J Primary ANAHI J [place] [id number] Insurance:[facility] SCOTTDOB: Community HONORIO DRLOT *IN [facility] [id number] Number: Repository [address]Byv: 330 [id number] [phone] (HP) Date:8451-03-75PV[address] [address]JL: 10/16/2017 Secondary NOT GIVENUNK [place] Insurance:SELF PAY [facility] Number: Effective Repository Date:2017-10-16 10/16/2017 ANAHI J Primary ANAHI J [place] [id number] Insurance:[facility] SCOTTDOB: Community HONORIO DRLOT *IN [facility] [id number] [place] Number: Repository [address]Tqd: 330 [id number] [phone] (HP) Date:2332-49-35PL[address] [address]IG: 10/16/2017 Secondary NOT GIVENUNK [place] Insurance:SELF PAY [facility] Number: Effective Repository Date:2017-10-16 09/26/2017 ANAHI J Primary AANHI J [place] [id number] Insurance:[facility] SCOTTDOB: Community HONORIO DRJUAN *IN [facility] [id number] Number: Repository [address]Kbb: (330) [id number] [phone] (HP) Date:2538-44-57QJ [address] [place] [address]UJ: 09/26/2017 Secondary NOT GIVENUNK [place] Insurance:SELF PAY [facility] Number: Effective Repository Date:2017-09-26 09/13/2017 ANAHI J Primary Insurance:[facility] ANAHI J [place] [id number] [facility] HONORIO ABBOTT Number: [id number] [facility] [place] [id number] Repository [address]Lun: (330) Date:5350-74-75RH [phone] () [address] [place] [address]QA: 09/13/2017 Secondary NOT GIVENUNK [place] Insurance:SELF PAY [facility] Number: Effective Repository Date:2017-09-13 08/30/2017 ANAHI J Primary Insurance:[facility] ANAHI J [place] [id number] [facility] HONORIO ABBOTT Number: [id number] [facility] [place] [id number] Repository [address]Eif: (330) Date:1194-28-03AA [phone] () [address] [place] [address]SE: 08/30/2017 Secondary NOT GIVENUNK [place] Insurance:SELF PAY [facility] Number: Effective Repository Date:2017-08-30
== END 2018-06-17 21:46 | disposition home or self-care (01) ==
LOC: ED 19:16
PROVIDERS: Emergency Provider Emergency Medicine; Family Provider Internal Medicine; PCP Internal Medicine
DX: R51 Headache (principal); S81.802A Unspecified open wound, left lower leg, initial encounter; X58.XXXA Exposure to other specified factors, initial encounter; Y93.9 Activity, unspecified; Y92.9 Unspecified place or not applicable; Y99.9 Unspecified external cause status; L30.9 Dermatitis, unspecified; G89.29 Other chronic pain; G40.909 Epilepsy, unspecified, not intractable, without status epilepticus; I25.10 Atherosclerotic heart disease of native coronary artery without angina pectoris; J44.9 Chronic obstructive pulmonary disease, unspecified; E11.9 Type 2 diabetes mellitus without complications; I10 Essential (primary) hypertension; K21.9 Gastro-esophageal reflux disease without esophagitis; F31.9 Bipolar disorder, unspecified; Z79.4 Long term (current) use of insulin; Z79.899 Other long term (current) drug therapy; Z86.73 Personal history of transient ischemic attack (TIA), and cerebral infarction without residual deficits; Z87.891 Personal history of nicotine dependence
CPT/HCPCS: 70450; 73590; 80048; 81001; 82962; 84484; 85025; 93005; 96361; 96374; 96375; 99284

== ENCOUNTER 2018-06-21 10:33 | Emergency (ER) | payer MEDICARE, SELFPAY ==
[2018-06-21 10:35] VITALS: BP 159/69; PULSE 85; PULSE 86; RESP 17; RESP 20; TEMP 36.5; O2SAT 95; O2SAT 98; BMI 36.2
--- NOTE | 2018-06-21 10:41 | CT_ITS ---
STUDY: CT ABDOMEN AND PELVIS WITHOUT CONTRAST REASON FOR EXAM: Female, 72 years old. Left groin pain with radiation to the back. RADIATION DOSAGE (If Supplied By Facility): CTDIvol = ( 26.89 ) mGy, DLP = ( 2117.73 ) mGycm TECHNIQUE: Transaxial images were obtained from the dome of the diaphragm to the symphysis pubis without oral contrast, and without intravenous contrast. Sagittal and coronal images were reconstructed. Individualized dose optimization techniques were used for this CT. COMPARISON: Comparison is made with prior examination of April 24, 2018. FINDINGS: Mild degree of increased linear markings at the lung bases with small bolus changes at the right lung base suggestive of scarring. The visualized portions of the heart are within normal limits. Normal liver. There are surgical clips in the gallbladder fossa consistent with a prior cholecystectomy. There are multiple benign calcified granulomata of the spleen. Normal pancreas. Normal bilateral adrenal glands. 5 mm nonobstructive calculus in the midportion of the right kidney. This is unchanged. Normal left kidney. There is a small hiatal hernia. Normal small intestine. Normal colon. The appendix is visualized and appears normal. There is diffuse atherosclerotic calcification of the abdominal aorta, without a demonstrated aneurysm. Normal inferior vena cava. Normal retroperitoneum. Normal urinary bladder. There is a small umbilical hernia containing fat. There are diffuse degenerative changes of the visualized lumbar spine. CT/Abdomen/Pelvis without Cont IMPRESSION: Stable 5 mm nonobstructive calculus in the midportion of the right kidney. Electronically Signed: Baljeet Chen MD at 13:34 EST Tel [phone], Service support ,
--- NOTE | 2018-06-21 11:12 | ED.DCSUM_ITS ---
- ER Visit Summary Date of Service: 06/21/18 Chief Complaint: [] Left flank pain last night History of Present Illness: The patient is a 72 F [] she reports she went to bed feeling fine remittent to be having pain to the left flank that rates the left lower abdomen, she has had some nausea no vomiting soft normal loose bowel movements, she has been history of multiple prior abdominal surgeries including surgery to remove cyst from her colon, hysterectomy cholecystectomy appendectomy when asked where the focus of her pain is she points to the left lower quadrant and then indicates the pain radiates to her upper back left, she had nausea but no vomiting no fever no cough no exposure to antibiotics tainted food or sick individuals Physical Examination: [] 109/80 afebrile General, no distress resting comfortably prefers to lay on the left side HEENT is generally unremarkable The neck is supple no adenopathy Cardiovascular, regular rate and rhythm Lungs, clear bilateral Abdomen, soft, there are multiple scars to the abdomen, she has discomfort to the left lower abdomen there is no rebound guarding organomegaly signs of hernia, the pain radiates to her left back to the skin to the backs unremarkable there is no specific focus of the back pain her lumbar spine is not tender to palpation, she does complain that when she moves her hip that the abdominal pain seems worse but her lower extremity exam entirely unremarkable no redness or warmth, she indicates she has had no trauma of any kind Extremities, no clubbing cyanosis or edema her neurovascular exam is unremarkable full range of motion Neurologic, awake alert answering questions appropriately moving all 4 extrem ities Test Results: [] Emergency Department Course and Treatment: [] Given all the above screening labs CT UA pain management CT abdomen screening labs UA all generally unremarkable, see those reports, evaluation she is drinking fluids here without difficulty her abdomen is soft there is no rebound guarding or megaly the abdominal pain has resolved as has the flank pain, radiology did reconstruction lumbar spine bones and lumbar spine shows DJD nothing acute at this time she is feeling better she wants to go home to follow with her doctors and return for change in symptoms Treatment Plan: [] Disposition: [] Home stable Impression: [] Left flank pain resolved etiology unclear This note was generated with [employer] software. It may contain incorrect words, spelling, and punctuation that were not noted in review of the chart prior to signing ED Disposition - Plan for ED Patient: Chief Complaint: Flank Pain Referrals: Bailey Toribio MD [Primary Care Provider] -
[2018-06-21] MEDS: morphine 8 MG/ML Syringe IV (11:16)
[2018-06-21] MEDS: 0.9% Normal Saline 1,000 ML 125 ML IV (11:16)
[2018-06-21] MEDS: Ondansetron 4 MG/2 ML Vial IV (11:16)
[2018-06-21 11:24] LABS: Absolute Lymphocyte Count 1.38 X10^3/ul (0.83-4.51); Absolute Neutrophil Count 6.1 X10^3/uL (2.0-7.7); Basophil# 0.03 X10^3/uL; Basophil% 0.4 % (0-1); Eosinophil# 0.11 X10^3/uL; Eosinophils% 1.3 % (0-5); Hemoglobin 12.2 g/dl (12.0-15.0); Lymphocyte # 1.38 X10^3/ul (4.0); Lymphocyte % 16.8 % (19-41); Mean Corpuscular Hgb 30.7 pg (27.0-32.0); Monocyte% 7.3 % (0-10); Neutrophil # 6.11 X10^3/uL (2.7-7.7); Neutrophil % 74.2 % (47-70); POSITIVE COUNT NO; POSITIVE DIFFERENTIAL NO; POSITIVE MORPHOLOGY NO; Platelet Count 162 K/mm3 (150-450); RBC Distribution Width CV 12.3 % (11.6-14.6); RBC Distribution Width SD 41.5 fl (35.1-43.9); Red Blood Count 3.98 M/mm3 (4.2-5.4); White Blood Count 8.2 K/mm3 (4.4-11.0)
--- NOTE | 2018-06-21 11:31 | CT_ITS ---
STUDY: CT LUMBAR SPINE WITHOUT CONTRAST REASON FOR EXAM: Female, 72 years old. Left groin pain and lower back pain. RADIATION DOSAGE (If Supplied By Facility): CTDIvol = ( 26.89 ) mGy, DLP = ( 2117.73 ) mGycm TECHNIQUE: The patient was scanned in a multi detector CT scanner. High resolution transaxial imaging was performed. Images were obtained from L1 to S1 level. Sagittal and coronal images were reconstructed. Individualized dose optimization techniques were used for this CT. COMPARISON: None FINDINGS: Normal lumbar lordosis. There is no substantial scoliosis. Normal vertebrae of the lumbar spine. L1-2: Marked degree of disc space narrowing and degeneration with anterior spondylosis and subchondral sclerosis. Mild degree of diffuse posterior disc bulge. L2-3: Mild degree of disc space narrowing. Mild degree of diffuse posterior disc bulge. No significant stenosis is seen. L3-4: Mild degree of disc space narrowing. Anterior spondylosis. Mild degree of diffuse posterior disc bulge. Moderate degree of bilateral neural foraminal stenosis. Minimal retrolisthesis of L3 on L4. L4-5: Mild degree of disc space narrowing. Mild degree diffuse disc bulge. Moderate degree of bilateral neural foraminal stenosis. L5-S1: Grade 1 anterior listhesis of L5 on S1 with spondylolysis of the pars interarticularis of the L5 vertebrae. Atherosclerotic calcification of the abdominal aorta. CT/Spine Lumbar without Contrast IMPRESSION: Multilevel degenerative changes, as described above. Bilateral neural foraminal stenosis at the L3-L4, L4-L5 and L5-S1 levels. Anterior listhesis of L5 on S1 with spondylolysis of the pars interarticularis of the L5 vertebrae. Electronically Signed: Baljeet Chen MD at 13:05 EST Tel [phone], Service support ,
[2018-06-21 11:49] LABS: AST(SGOT) 10 U/L (15-37); Alanine Aminotransfer ALT/SGPT 18 U/L (13-56); Albumin, Serum 3.5 g/dL (3.2-5.0); Alkaline Phosphatase 50 U/L (45-117); Anion Gap 7 (5-15); BUN 19 mg/dL (7-18); BUN/Creat Ratio 20.2 RATIO (10-20); Bilirubin, Direct 0.19 mg/dL (0.00-0.30); Calcium,Total 9.1 mg/dL (8.5-10.1); Chloride 105 mmol/L (98-107); Creatinine, Serum 0.94 mg/dL (0.55-1.02); EST Glomerular Filtration Rate 62 mL/min (>60); Est Glom Filt Rate - Afr Amer 75 mL/min (>60); Estimated Creatinine Clearance 40.82 ml/min; Globulin 3.5 g/dL (2.2-4.2); Glucose 193 mg/dL (74-106); Lipase 102 U/L (73-393); Potassium 4.3 mmol/L (3.5-5.1); Sodium Level 141 mmol/L (136-145)
--- NOTE | 2018-06-21 11:55 | ED.RN ---
DR HIGGINS'S OFFICE CALLED FOR UPDATED MEDICATION LIST.
[2018-06-21 12:15] LABS: Bacteria 0 SEEN /hpf (None Seen); Mucous, Urine 0 SEEN /hpf (<or=2+); Red Blood Cells-Urine 0 SEEN /hpf (0-5)
[2018-06-21 12:26] LABS: Color, Urine Yellow (Yellow); Glucose, Dipstick Normal (Normal); Ketone-Dipstick Negative (Negative); Leukocyte Esterase-Dipstick Negative /ul (Negative); Nitrite-Dipstick Negative (Negative); Occult Blood-Urine Negative /ul (Negative); Protein-Dipstick 30 mg/dl (Negative); Urine Bilirubin Dipstick Negative (Negative); Urine Clarity Sl. Cloudy (Clear); Urine Urobilinogen Normal (Normal)
[2018-06-21 12:52] LABS: Squamous Epithelial Cells - UA 0-5 SEEN /hpf (5-10); White Blood Cells 0-5 SEEN /hpf (0-5)
[2018-06-21 13:10] VITALS: PULSE 83; RESP 17; O2SAT 91
--- NOTE | 2018-06-21 14:51 | ED.DEP ---
ED Disposition - Plan for ED Patient: Chief Complaint: Flank Pain Instructions: ED Flank Pain Uncertain Cause Referrals: Bailey Toribio MD [Primary Care Provider] -
[2018-06-21 15:23] VITALS: BP 167/72; PULSE 71; RESP 90; O2SAT 95
[2018-06-21 15:24] VITALS: BP 167/72; PULSE 97; RESP 17; O2SAT 95
== END 2018-06-21 15:26 | disposition home or self-care (01) ==
PROVIDERS: Emergency Provider Emergency Medicine; Family Provider Internal Medicine; PCP Internal Medicine
DX: R10.32 Left lower quadrant pain (principal); R11.0 Nausea; M47.816 Spondylosis without myelopathy or radiculopathy, lumbar region; E11.9 Type 2 diabetes mellitus without complications; Z79.4 Long term (current) use of insulin; Z79.891 Long term (current) use of opiate analgesic; Z79.899 Other long term (current) drug therapy; Z90.49 Acquired absence of other specified parts of digestive tract; Z90.710 Acquired absence of both cervix and uterus
CPT/HCPCS: 72131; 74176; 80048; 80076; 81001; 83690; 85025; 87077; 87086; 87088; 87186; 96361; 96374; 96375; 99285; J7030; A4216; J2405

== ENCOUNTER 2018-06-23 12:06 | Emergency (ER) | payer MEDICARE, SELFPAY ==
[2018-06-23 12:07] VITALS: BP 186/78; PULSE 81; RESP 20; TEMP 36.3; O2SAT 99; BMI 36.2
[2018-06-23] MEDS: diazePAM 5 MG Tablet PO (13:21)
[2018-06-23] MEDS: Ketorolac 30 MG/ML Syringe IV (13:21)
[2018-06-23 13:43] LABS: Absolute Lymphocyte Count 1.57 X10^3/ul (0.83-4.51); Absolute Neutrophil Count 4.4 X10^3/uL (2.0-7.7); Basophil# 0.04 X10^3/uL; Basophil% 0.6 % (0-1); Eosinophil# 0.16 X10^3/uL; Eosinophils% 2.4 % (0-5); Hematocrit 34.8 % (37-47); Hemoglobin 11.5 g/dl (12.0-15.0); Lymphocyte # 1.57 X10^3/ul (4.0); Lymphocyte % 23.2 % (19-41); Mean Corpuscular Hgb 31.3 pg (27.0-32.0); Mean Corpuscular Volume 94.6 fL (81-99); Mean Platelet Vol. 10.4 fl (6.2-12.0); Monocyte# 0.57 X10^3/uL; Monocyte% 8.4 % (0-10); Neutrophil # 4.44 X10^3/uL (2.7-7.7); Neutrophil % 65.4 % (47-70); POSITIVE COUNT NO; POSITIVE DIFFERENTIAL NO; POSITIVE MORPHOLOGY NO; Platelet Count 163 K/mm3 (150-450); RBC Distribution Width CV 11.9 % (11.6-14.6); RBC Distribution Width SD 39.9 fl (35.1-43.9); Red Blood Count 3.68 M/mm3 (4.2-5.4); White Blood Count 6.8 K/mm3 (4.4-11.0)
[2018-06-23 13:53] LABS: Anion Gap 8 (5-15); BUN 20 mg/dL (7-18); BUN/Creat Ratio 20.3 RATIO (10-20); Calcium,Total 8.7 mg/dL (8.5-10.1); Chloride 106 mmol/L (98-107); Creatinine, Serum 0.99 mg/dL (0.55-1.02); EST Glomerular Filtration Rate 59 mL/min (>60); Est Glom Filt Rate - Afr Amer 71 mL/min (>60); Estimated Creatinine Clearance 38.76 ml/min; Glucose 123 mg/dL (74-106); Potassium 3.8 mmol/L (3.5-5.1); Sodium Level 144 mmol/L (136-145)
[2018-06-23 15:06] LABS: Color, Urine Yellow (Yellow); Glucose, Dipstick Normal (Normal); Ketone-Dipstick Negative (Negative); Leukocyte Esterase-Dipstick 25 /ul (Negative); Nitrite-Dipstick Negative (Negative); Occult Blood-Urine 10 /ul (Negative); Protein-Dipstick 100 mg/dl (Negative); Specific Gravity, Urine 1.015 (1.002-1.030); Urine Bilirubin Dipstick Negative (Negative); Urine Clarity Clear (Clear); Urine Urobilinogen Normal (Normal); Urine pH 6.5 (5.0 - 8.0)
--- NOTE | 2018-06-23 15:35 | RAD_ITS ---
STUDY: X-RAY - ABDOMEN/PELVIS REASON FOR EXAM: Female, 72 years old. Constipation TECHNIQUE: Two AP supine views of the abdomen and pelvis. COMPARISON: CT from 06/21/2018 FINDINGS: Normal visualized lung bases. There is mild fecal retention of the right and left colon. No dilated loops of air-filled small bowel. There is no demonstrated free abdominal air. Small calcification projecting over the inferior right renal shadow. Surgical clips project in the right upper abdomen. Normal soft tissue structures. Normal visualized osseous structures. RAD/Abdomen Single View IMPRESSION: Nonobstructive bowel gas pattern. Mild fecal retention. Nonobstructing right renal calculus. Stable appearance since recent CT. Electronically Signed: Chuck Uribe MD at 15:58 EST , Service support ,
[2018-06-23 15:41] VITALS: BP 108/69; PULSE 74; RESP 16; O2SAT 98
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
[2018-06-23 16:14] VITALS: BP 129/80; PULSE 72; RESP 16; O2SAT 96
== END 2018-06-23 16:14 | disposition home or self-care (01) ==
PROVIDERS: Emergency Provider Emergency Medicine; Family Provider Internal Medicine; PCP Internal Medicine
DX: R10.9 Unspecified abdominal pain (principal); R82.71 Bacteriuria; S81.802A Unspecified open wound, left lower leg, initial encounter; V89.2XXA Person injured in unspecified motor-vehicle accident, traffic, initial encounter; Y93.9 Activity, unspecified; Y92.9 Unspecified place or not applicable; Y99.9 Unspecified external cause status; I25.10 Atherosclerotic heart disease of native coronary artery without angina pectoris; J44.9 Chronic obstructive pulmonary disease, unspecified; E11.9 Type 2 diabetes mellitus without complications; I10 Essential (primary) hypertension; M06.9 Rheumatoid arthritis, unspecified; K21.9 Gastro-esophageal reflux disease without esophagitis; E66.9 Obesity, unspecified; F31.9 Bipolar disorder, unspecified; Z79.4 Long term (current) use of insulin; Z79.899 Other long term (current) drug therapy; Z86.73 Personal history of transient ischemic attack (TIA), and cerebral infarction without residual deficits; Z87.891 Personal history of nicotine dependence
CPT/HCPCS: 74018; 80048; 81002; 85025; 99284; A4216

== ENCOUNTER 2018-06-26 13:10 | Emergency (ER) | payer MEDICARE, SELFPAY ==
[2018-06-26 13:11] VITALS: BP 193/86; PULSE 82; RESP 18; TEMP 36.4; O2SAT 98; BMI 34.4
[2018-06-26 13:48] LABS: Absolute Lymphocyte Count 1.34 X10^3/ul (0.83-4.51); Absolute Neutrophil Count 3.7 X10^3/uL (2.0-7.7); Basophil# 0.04 X10^3/uL; Basophil% 0.7 % (0-1); Eosinophil# 0.06 X10^3/uL; Eosinophils% 1.1 % (0-5); Hematocrit 35.6 % (37-47); Lymphocyte # 1.34 X10^3/ul (4.0); Lymphocyte % 24.5 % (19-41); Mean Corp Hgb Conc 33.7 g/gl (32-36); Mean Corpuscular Hgb 30.8 pg (27.0-32.0); Mean Corpuscular Volume 91.3 fL (81-99); Mean Platelet Vol. 9.9 fl (6.2-12.0); Monocyte# 0.37 X10^3/uL; Monocyte% 6.8 % (0-10); Neutrophil # 3.65 X10^3/uL (2.7-7.7); Neutrophil % 66.7 % (47-70); POSITIVE COUNT NO; POSITIVE DIFFERENTIAL NO; POSITIVE MORPHOLOGY NO; Platelet Count 157 K/mm3 (150-450); RBC Distribution Width CV 11.9 % (11.6-14.6); RBC Distribution Width SD 40.1 fl (35.1-43.9); White Blood Count 5.5 K/mm3 (4.4-11.0)
[2018-06-26] MEDS: Morphine 4 MG/ML Syringe IV (13:56)
[2018-06-26] MEDS: Ondansetron 4 MG/2 ML Vial IV (13:57)
[2018-06-26] MEDS: 0.9% Normal Saline 1,000 ML 125 ML IV (13:57)
[2018-06-26 14:02] LABS: AST(SGOT) 13 U/L (15-37); Alanine Aminotransfer ALT/SGPT 38 U/L (13-56); Albumin, Serum 3.5 g/dL (3.2-5.0); Alkaline Phosphatase 66 U/L (45-117); Anion Gap 8 (5-15); BUN 13 mg/dL (7-18); BUN/Creat Ratio 14.2 RATIO (10-20); Calcium,Total 8.9 mg/dL (8.5-10.1); Chloride 103 mmol/L (98-107); Creatinine, Serum 0.92 mg/dL (0.55-1.02); EST Glomerular Filtration Rate 64 mL/min (>60); Est Glom Filt Rate - Afr Amer 77 mL/min (>60); Estimated Creatinine Clearance 41.71 ml/min; Globulin 3.4 g/dL (2.2-4.2); Glucose 244 mg/dL (74-106); Lipase 119 U/L (73-393); Potassium 4.1 mmol/L (3.5-5.1); Protein, Total 6.9 g/dL (6.4-8.2); Sodium Level 138 mmol/L (136-145)
[2018-06-26 14:13] LABS: Lactic Acid 1.2 mmol/L (0.4-2.0)
[2018-06-26 14:58] LABS: Bacteria 0 SEEN /hpf (None Seen); Mucous, Urine 0 SEEN /hpf (<or=2+); White Blood Cells 0 SEEN /hpf (0-5)
[2018-06-26 15:00] VITALS: BP 154/76; PULSE 80; RESP 18; O2SAT 96
[2018-06-26 15:14] LABS: Color, Urine Yellow (Yellow); Glucose, Dipstick 250 mg/dl (Normal); Ketone-Dipstick Negative (Negative); Leukocyte Esterase-Dipstick Negative /ul (Negative); Nitrite-Dipstick Negative (Negative); Occult Blood-Urine 10 /ul (Negative); Protein-Dipstick 100 mg/dl (Negative); Urine Bilirubin Dipstick Negative (Negative); Urine Clarity Clear (Clear); Urine Urobilinogen Normal (Normal)
[2018-06-26 15:34] LABS: Red Blood Cells-Urine 0-5 SEEN /hpf (0-5); Squamous Epithelial Cells - UA 0-5 SEEN /hpf (5-10)
--- NOTE | 2018-06-26 15:46 | ED.VISSUMM ---
- ER Visit Summary Date of Service: 06/26/18 Chief Complaint: [Abdominal pain] History of Present Illness: The patient is a 72 F [presents to the emergency department with abdominal pain that she has had for several weeks. Patient states the pain tends to come and go. Patient states yesterday she felt great all day and had no discomfort. Patient was seen for similar complaint about 5 days ago in the emergency department. Patient had a CT scan of her abdomen and pelvis in her lumbar spine at that time that was unremarkable. Patient denies any fever. She denies any blood in her stool or black tarry stool. Patient has had some nausea and some intermittent diarrhea. Patient states that she has had decreased p.o. intake.] Patient with history of appendectomy, cholecystectomy, and hysterectomy. Patient states she still has her ovaries. Physical Examination: HEENT-PERRLA, EOMI. Cranial nerves II through XII grossly intact. TMs clear. Mucous membranes moist. No adenopathy. Cardiovascular-regular rate and rhythm without murmur or ectopy Lungs-clear to auscultation, chest wall stable without crepitus or subcu emphysema Abdomen-normoactive bowel sounds, soft. Patient has diffuse tenderness palpation over left lower quadrant. There is some guarding. There is no rebound, rigidity, or perineal signs. Extremities-intact ?4, normal range of motion, normal pulses, atraumatic] Test Results: [CBC with differential obtained was normal with a white blood cell count of 5.5, hemoglobin 12, hematocrit 35.6, platelets 157. History is were unremarkable. Urinalysis was normal. Lactate was normal at 1.2.] Emergency Department Course and Treatment: [She was medicated with morphine and Zofran given normal saline. Patient had good pain relief with that. At this point I do not feel any further imaging is indicated as she just had a CT scan 5 days ago.] Treatment Plan: [Follow-up with primary care physician within next 3-5 days. Patient also to follow-up with [facility] [employer] on-call. Patient advised to return if worsening pain persistent vomiting, dehydration, fever, or condition should worsen anyway.] Disposition: [Discharged home in stable condition] Impression: [Abdominal pain-etiology uncertain] This note was generated with [employer] dictation software. It may contain incorrect words, spelling, and punctuation that were not noted in review of the chart prior to signing ED Disposition - Plan for ED Patient: Chief Complaint: Flank Pain Referrals: Bailey Toribio MD [Primary Care Provider] -
--- NOTE | 2018-06-26 15:49 | ED.DCSUM_ITS ---
- ER Visit Summary Date of Service: 06/26/18 Chief Complaint: [Abdominal pain] History of Present Illness: The patient is a 72 F [presents to the emergency department with abdominal pain that she has had for several weeks. Patient states the pain tends to come and go. Patient states yesterday she felt great all day and had no discomfort. Patient was seen for similar complaint about 5 days ago in the emergency department. Patient had a CT scan of her abdomen and pelvis in her lumbar spine at that time that was unremarkable. Patient denies any fever. She denies any blood in her stool or black tarry stool. Patient has had some nausea and some intermittent diarrhea. Patient states that she has h ad decreased p.o. intake.] Patient with history of appendectomy, cholecystectomy, and hysterectomy. Patient states she still has her ovaries. Physical Examination: HEENT-PERRLA, EOMI. Cranial nerves II through XII grossly intact. TMs clear. Mucous membranes moist. No adenopathy. Cardiovascular-regular rate and rhythm without murmur or ectopy Lungs-clear to auscultation, chest wall stable without crepitus or subcu emphysema Abdomen-normoactive bowel sounds, soft. Patient has diffuse tenderness palpation over left lower quadrant. There is some guarding. There is no rebound, rigidity, or perineal signs. Extremities-intact ?4, normal range of motion, normal pulses, atraumatic] Test Results: [CBC with differential obtained was normal with a white blood cell count of 5.5, hemoglobin 12, hematocrit 35.6, platelets 157. History is were unremarkable. Urinalysis was normal. Lactate was normal at 1.2.] Emergency Department Course and Treatment: [She was medicated with morphine and Zofran given normal saline. Patient had good pain relief with that. At this point I do not feel any further imaging is indicated as she just had a CT scan 5 days ago.] Treatment Plan: [Follow-up with primary care physician within next 3-5 days. Patient also to follow-up with RETENTION MANAGER on-call. Patient advised to return if worsening pain persistent vomiting, dehydration, fever, or condition should worsen anyway.] Disposition: [Discharged home in stable condition] Impression: [Abdominal pain-etiology uncertain] This note was generated with [employer] software. It may contain incorrect words, spelling, and punctuation that were not noted in review of the chart prior to signing ED Disposition - Plan for ED Patient: Chief Complaint: Flank Pain Referrals: Bailey Toribio MD [Primary Care Provider] -
--- NOTE | 2018-06-26 15:49 | ED.DEP ---
ED Disposition - Plan for ED Patient: Chief Complaint: Flank Pain Instructions: ED Flank Pain Uncertain Cause, Abdominal Pain Prescriptions: Oxycodone HCl/Acetaminophen [Percocet 5/325] 1 tab PO Q6H PRN PRN 3 Days #12 tab PRN Reason: Pain Referrals: Bailey Toribio MD [Primary Care Provider] - 3-5 Days Tish Garcia MD [STAFF PHYSICIAN] - 3-5 Days
[2018-06-26 15:53] VITALS: BP 152/72; PULSE 72; RESP 18; O2SAT 99
== END 2018-06-26 15:54 | disposition home or self-care (01) ==
LOC: ED 13:27
PROVIDERS: Emergency Provider Emergency Medicine; Family Provider Internal Medicine; PCP Internal Medicine
DX: R10.9 Unspecified abdominal pain (principal); R19.7 Diarrhea, unspecified; R11.0 Nausea; I25.10 Atherosclerotic heart disease of native coronary artery without angina pectoris; E11.9 Type 2 diabetes mellitus without complications; R56.9 Unspecified convulsions; K21.9 Gastro-esophageal reflux disease without esophagitis; Z79.4 Long term (current) use of insulin; Z79.899 Other long term (current) drug therapy; Z86.73 Personal history of transient ischemic attack (TIA), and cerebral infarction without residual deficits; Z90.710 Acquired absence of both cervix and uterus; Z90.49 Acquired absence of other specified parts of digestive tract
CPT/HCPCS: 80053; 81001; 83605; 83690; 85025; 96361; 96374; 96375; 99283; J7030; A4216; J2405

== ENCOUNTER 2018-06-27 17:32 | Observation (INO) | payer MEDICARE, SELFPAY ==
[2018-06-26 13:11] VITALS: BMI 34.4
[2018-06-27 17:34] VITALS: BP 178/92; PULSE 81; RESP 18; TEMP 36.8; O2SAT 99; BMI 34.0
[2018-06-27 18:15] LABS: Bacteria 0 SEEN /hpf (None Seen); Mucous, Urine 0 SEEN /hpf (<or=2+); White Blood Cells 0 SEEN /hpf (0-5)
[2018-06-27 18:19] LABS: Color, Urine Yellow (Yellow); Glucose, Dipstick Normal (Normal); Ketone-Dipstick Negative (Negative); Leukocyte Esterase-Dipstick Negative /ul (Negative); Nitrite-Dipstick Negative (Negative); Occult Blood-Urine 10 /ul (Negative); Protein-Dipstick 30 mg/dl (Negative); Specific Gravity, Urine 1.005 (1.002-1.030); Urine Bilirubin Dipstick Negative (Negative); Urine Clarity Clear (Clear); Urine Urobilinogen Normal (Normal)
[2018-06-27 18:38] LABS: Red Blood Cells-Urine 0-5 SEEN /hpf (0-5)
[2018-06-27 18:39] LABS: Squamous Epithelial Cells - UA 0-5 SEEN /hpf (5-10)
[2018-06-27 19:13] LABS: Absolute Lymphocyte Count 2.04 X10^3/ul (0.83-4.51); Basophil# 0.04 X10^3/uL; Basophil% 0.6 % (0-1); Eosinophil# 0.12 X10^3/uL; Eosinophils% 1.8 % (0-5); Hemoglobin 12.1 g/dl (12.0-15.0); Lymphocyte # 2.04 X10^3/ul (4.0); Lymphocyte % 30.8 % (19-41); Mean Corp Hgb Conc 33.6 g/gl (32-36); Mean Corpuscular Hgb 30.3 pg (27.0-32.0); Mean Corpuscular Volume 90.2 fL (81-99); Mean Platelet Vol. 9.8 fl (6.2-12.0); Monocyte# 0.42 X10^3/uL; Monocyte% 6.3 % (0-10); Neutrophil % 60.3 % (47-70); Platelet Count 185 K/mm3 (150-450); RBC Distribution Width CV 11.8 % (11.6-14.6); RBC Distribution Width SD 38.9 fl (35.1-43.9); Red Blood Count 3.99 M/mm3 (4.2-5.4); White Blood Count 6.6 K/mm3 (4.4-11.0)
[2018-06-27 19:15] LABS: POSITIVE COUNT NO; POSITIVE DIFFERENTIAL NO; POSITIVE MORPHOLOGY NO
[2018-06-27 19:19] VITALS: BP 166/85; PULSE 79; RESP 18; O2SAT 97
[2018-06-27 19:20] LABS: Anion Gap 9 (5-15); BUN 17 mg/dL (7-18); BUN/Creat Ratio 20.1 RATIO (10-20); Calcium,Total 9.3 mg/dL (8.5-10.1); Chloride 103 mmol/L (98-107); Creatinine, Serum 0.84 mg/dL (0.55-1.02); EST Glomerular Filtration Rate 70 mL/min (>60); Est Glom Filt Rate - Afr Amer 85 mL/min (>60); Estimated Creatinine Clearance 45.68 ml/min; Glucose 170 mg/dL (74-106); Potassium 3.9 mmol/L (3.5-5.1); Sodium Level 139 mmol/L (136-145)
--- NOTE | 2018-06-27 19:41 | ED.RN ---
notified ED physicians that patient is yelling in pain in hallway. daughter with patient.
--- NOTE | 2018-06-27 20:01 | EKG12_ITS ---
Test Reason : CP Blood Pressure : / mmHG Vent. Rate : 080 BPM Atrial Rate : 080 BPM P-R Int : 136 ms QRS Dur : 076 ms QT Int : 374 ms P-R-T Axes : 055 063 045 degrees QTc Int : 431 ms Normal sinus rhythm Normal ECG Confirmed by ANGELA BOWMAN, SANTHOSH ([id number]), electronic news gathering editor JERRI SONI ([id number]) on 07/02/2018 1:03:49 PM Referred By: NAVA Confirmed By:SANTHOSH MILLER MD
--- NOTE | 2018-06-27 20:02 | CT_ITS ---
STUDY: CTA OF THE ABDOMINAL AORTA REASON FOR EXAM: Female, 72 years old. Pain RADIATION DOSAGE (If Supplied By Facility): CTDIvol = ( 25.08 ) mGy, DLP = ( 1140.14 ) mGycm TECHNIQUE: Axial CT angiography multi-detector data acquisition was obtained from the lung bases to the pubic symphysis following intravenous administration of 100ML ml of Isovue 370 contrast. Axial images and MIP images were reconstructed from the axial data set. Post-processing of the angiographic images was performed, with multiplanar reformation and 3D reconstruction. Individualized dose optimization techniques were used for this CT. TECHNICAL QUALITY: Good COMPARISON: June 21, 2018 Descriptors of Narrowing: None (0%) Mild (< 50%) Moderate (50-70%) Severe (70-90%) Subtotal/Total Occlusion (90-100%) Non-Evaluable (technically non-diagnostic FINDINGS: Abdominal aorta: Diffuse atherosclerotic calcifications with no hemodynamically significant narrowing. Celiac and superior mesenteric arteries: Mild atherosclerotic calcifications with no hemodynamically significant narrowing. Inferior mesenteric artery: Mild luminal narrowing at the origin. Right renal artery(arteries): Ostial calcifications with mild to moderate luminal narrowing. Left renal artery(arteries): Ostial calcification with mild luminal narrowing. Right common iliac artery: Atherosclerotic calcifications with mild luminal narrowing. Right external iliac artery: Atherosclerotic calcifications with mild luminal narrowing. Right internal iliac artery: Atherosclerotic calcifications with mild luminal narrowing. Left common iliac artery: Atherosclerotic calcifications with mild luminal narrowing. Left external iliac artery: Atherosclerotic calcifications with mild luminal narrowing. Left internal iliac artery: Atherosclerotic calcifications with mild luminal narrowing. Right common femoral artery: No demonstrated narrowing. Left common femoral artery: Atherosclerotic calcifications with mild luminal narrowing. Patchy groundglass interstitial densities at the lung bases. Fatty liver. 5 mm nonobstructing right renal stone. Mild colonic diverticulosis. Small hiatal hernia. Small fatty umbilical hernia. Possible 8 mm left adrenal hypoattenuated nodule. CT/CT ANGIO ABD&PEL W/O&W/DYE IMPRESSION: Mild atherosclerotic calcifications of the abdominal aorta and major abdominal arteries as noted. Mild to moderate luminal narrowing of the right renal artery. No aneurysm. Electronically Signed: Tao Simpson DO at 21:11 EST Tel [phone], Service support ,
--- NOTE | 2018-06-27 20:04 | ED.DCSUM_ITS ---
- ER Visit Summary Date of Service: 06/27/18 Chief Complaint: Abdominal pain History of Present Illness: The patient is a 72 F who presents for ongoing abdominal pain for several days. This is patient's fifth visit since June 17 for the same complaint. She was seen last night, and daughter states that she was still in pain when discharged home. She fell asleep and then the afternoon, patient called her and found her crying because the pain was so severe. She has associated nausea, denies diarrhea in the last day. No urinary symptoms. Pain is mainly left lower quadrant and now radiating around into the left back. Patient has a history of chronic back pain secondary to traumatic injury. Patient is diabetic and has not eaten anything today. She has had multiple abdominal surgeries. Further history limited secondary to patient will not answer my questions. Physical Examination: Vital signs: afebrile, hemodynamically stable, no hypoxia on room air General: well nourished, well developed, laying left lateral recumbent, crying Skin: warm, dry, no rash, no pallor HEENT: normocephalic and atraumatic; PERRL, EOMI, moist mucous membranes Cardiovascular: regular rate and rhythm without murmurs, no peripheral edema Respiratory: No increased work of breathing, lungs are clear to auscultation bilaterally, no rales, rhonchi or wheezing Abdominal: Abdomen is soft, tender initially in left lower quadrant, no guarding or rebound, no masses, audible abdominal scars MSK: Moves all extremities, no deformities, normal strength Neuro: Awake and alert, tearful. No facial droop, sensation and motor function intact and symmetric Test Results: Abnormal Lab Results 06/27/18 06/27/18 06/27/18 18:05 19:02 19:02 WBC 6.6 RBC 3.99 L Hgb 12.1 Hct 36.0 L MCV 90.2 MCH 30.3 MCHC 33.6 RDW 11.8 RDW Differential 38.9 Plt Count 185 MPV 9.8 Immature Gran % (Auto) 0.200 Neut % (Auto) 60.3 Lymph % (Auto) 30.8 [place] % (Auto) 6.3 Eos % (Auto) 1.8 Baso % (Auto) 0.6 Absolute Neuts (auto) 4.0 Absolute Lymphs (auto) 2.04 Total Counted Not Reportable Sodium 139 Potassium 3.9 Chloride 103 Carbon Dioxide 27.0 Anion Gap 9 BUN 17 Creatinine 0.84 Estim Creat Clear Calc 45.68 Est GFR (MDRD) Af Amer 85 Est GFR (MDRD) Non-Af 70 BUN/Creatinine Ratio 20.1 H Glucose 170 H Calcium 9.3 Total Bilirubin Direct Bilirubin AST ALT Alkaline Phosphatase Total Protein Albumin Globulin Lipase Urine Color Yellow Urine Clarity Clear Urine pH 7.0 Ur Specific [place] 1.005 Urine Protein 30 H Urine Glucose (UA) Normal Urine Ketones Negative Urine Occult Blood 10 H Urine Nitrite Negative Urine Bilirubin Negative Urine Urobilinogen Normal Ur Leukocyte Esterase Negative Urine RBC 0-5 SEEN Urine WBC 0 SEEN Ur Squamous Epith Cells 0-5 SEEN Urine Bacteria 0 SEEN Urine Mucus 0 SEEN 06/27/18 19:02 WBC RBC Hgb Hct MCV MCH MCHC RDW RDW Differential Plt Count MPV Immature Gran % (Auto) Neut % (Auto) Lymph % (Auto) [place] % (Auto) Eos % (Auto) Baso % (Auto) Absolute Neuts (auto) Absolute Lymphs (auto) Total Counted Sodium Potassium Chloride Carbon Dioxide Anion Gap BUN Creatinine Estim Creat Clear Calc Est GFR (MDRD) Af Amer Est GFR (MDRD) Non-Af BUN/Creatinine Ratio Glucose Calcium Total Bilirubin 0.80 Direct Bilirubin 0.21 AST 17 ALT 39 Alkaline Phosphatase 73 Total Protein 7.4 Albumin 3.8 Globulin 3.6 Lipase 303 Urine Color Urine Clarity Urine pH Ur Specific [place] Urine Protein Urine Glucose (UA) Urine Ketones Urine Occult Blood Urine Nitrite Urine Bilirubin Urine Urobilinogen Ur Leukocyte Esterase Urine RBC Urine WBC Ur Squamous Epith Cells Urine Bacteria Urine Mucus Clinical Impression(s) from Imaging Studies Abdomen/Pelvis CTA 06/27/18 20:02 IMPRESSION: Mild atherosclerotic calcifications of the abdominal aorta and major abdominal arteries as noted. Mild to moderate luminal narrowing of the right renal artery. No aneurysm. Electronically Signed: Tao Simpson DO at 21:11 EST Tel [phone], Service support , Medications Given Discontinued Medications Sodium Chloride () 1,000 mls @ 1,000 mls/hr IV .Q1H ONE Stop: 06/27/18 20:59 Last Admin: 06/27/18 20:15 Dose: 1,000 mls/hr Morphine Sulfate () 4 mg IV X1 ONE Stop: 06/27/18 20:01 Last Admin: 06/27/18 20:15 Dose: 4 mg Morphine Sulfate () 4 mg IV X1 ONE Stop: 06/27/18 21:35 Last Admin: 06/27/18 21:38 Dose: 4 mg Ondansetron HCl (Zofran) 4 mg IV X1 ONE Stop: 06/27/18 20:01 Last Admin: 06/27/18 20:15 Dose: 4 mg Emergency Department Course and Treatment: This is patient's fifth visit for the same complaint, and her pain seems out of proportion to her abdominal exam. CT angio of the abdomen and pelvis obtained to evaluate for any possible mesenteric ischemia. Patient was given Zofran and morphine for symptomatic relief. He required multiple doses of morphine. Labs showed no abnormalities, CTA of the abdomen and pelvis showed no ischemia or other acute changes. Because patient is having such severe discomfort of unknown origin and is requiring multiple doses of IV medication, she will be admitted for intractable abdominal pain and further workup. Treatment Plan: [] Disposition: [] Impression: Intractable abdominal pain This note was generated with [employer] dictation software. It may contain incorrect words, spelling, and punctuation that were not noted in review of the chart prior to signing ED Disposition - Plan for ED Patient: Chief Complaint: Abd Pain Referrals: Bailey Toribio MD [Primary Care Provider] -
[2018-06-27] MEDS: 0.9% Normal Saline 1,000 ML 1000 ML IV (20:15)
[2018-06-27] MEDS: morphine 8 MG/ML Syringe 4 MG IV (20:15)
[2018-06-27] MEDS: Ondansetron 4 MG/2 ML Vial IV (20:15)
[2018-06-27 20:36] LABS: AST(SGOT) 17 U/L (15-37); Alanine Aminotransfer ALT/SGPT 39 U/L (13-56); Albumin, Serum 3.8 g/dL (3.2-5.0); Alkaline Phosphatase 73 U/L (45-117); Bilirubin, Direct 0.21 mg/dL (0.00-0.30); Globulin 3.6 g/dL (2.2-4.2); Lipase 303 U/L (73-393); Protein, Total 7.4 g/dL (6.4-8.2)
[2018-06-27 21:17] VITALS: BP 147/64; PULSE 82; RESP 18; O2SAT 100
[2018-06-27] MEDS: Morphine 4 MG/ML Syringe IV ×2 (21:38→22:27)
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
[2018-06-27 23:06] VITALS: BP 157/66; PULSE 94; RESP 18; O2SAT 97
[2018-06-27 23:59] VITALS: BMI 34.5
[2018-06-28 00:03] VITALS: BMI 34.6
[2018-06-28 00:41] LABS: Bedside Glucose 159 mg/dL (70-110)
[2018-06-28 02:00] VITALS: BP 150/57; PULSE 86; RESP 18; TEMP 36.8; O2SAT 98
[2018-06-28] MEDS: Morphine 2 MG/ML Syringe IV ×2 (02:18→06:13)
[2018-06-28 05:44] LABS: Absolute Lymphocyte Count 1.34 X10^3/ul (0.83-4.51); Basophil# 0.03 X10^3/uL; Basophil% 0.6 % (0-1); Eosinophil# 0.13 X10^3/uL; Eosinophils% 2.5 % (0-5); Hematocrit 35.4 % (37-47); Hemoglobin 11.7 g/dl (12.0-15.0); Lymphocyte # 1.34 X10^3/ul (4.0); Lymphocyte % 25.9 % (19-41); Mean Corp Hgb Conc 33.1 g/gl (32-36); Mean Corpuscular Hgb 30.1 pg (27.0-32.0); Monocyte# 0.64 X10^3/uL; Monocyte% 12.4 % (0-10); Neutrophil # 3.03 X10^3/uL (2.7-7.7); Neutrophil % 58.4 % (47-70); Platelet Count 168 K/mm3 (150-450); RBC Distribution Width CV 12.1 % (11.6-14.6); RBC Distribution Width SD 40.2 fl (35.1-43.9); Red Blood Count 3.89 M/mm3 (4.2-5.4); White Blood Count 5.2 K/mm3 (4.4-11.0)
[2018-06-28 05:46] LABS: POSITIVE COUNT NO; POSITIVE DIFFERENTIAL NO; POSITIVE MORPHOLOGY NO
[2018-06-28 05:59] LABS: Anion Gap 10 (5-15); BUN 16 mg/dL (7-18); BUN/Creat Ratio 18.6 RATIO (10-20); Calcium,Total 8.7 mg/dL (8.5-10.1); Chloride 104 mmol/L (98-107); Creatinine, Serum 0.86 mg/dL (0.55-1.02); EST Glomerular Filtration Rate 69 mL/min (>60); Est Glom Filt Rate - Afr Amer 83 mL/min (>60); Estimated Creatinine Clearance 44.62 ml/min; Glucose 193 mg/dL (74-106); Potassium 3.5 mmol/L (3.5-5.1); Sodium Level 141 mmol/L (136-145)
[2018-06-28 07:25] VITALS: O2SAT 98
[2018-06-28 07:44] VITALS: BP 150/63; PULSE 88; RESP 18; TEMP 36.4; O2SAT 97
[2018-06-28] MEDS: Senna/Docusate Sodium 1 Tablet PO ×2 (08:01→22:26)
[2018-06-28] MEDS: Nystatin Powder 15gm Bottle 1 APPLIC TOPICAL (08:01)
[2018-06-28] MEDS: Fluticasone 0.05% 1 SPRAY NASAL.SRY 2 SPRAY NASAL (08:01)
[2018-06-28] MEDS: Isosorbide Mononitrate 30 MG Tablet PO (08:02)
[2018-06-28] MEDS: Lisinopril 5 MG Tablet PO (08:02)
[2018-06-28] MEDS: Gabapentin 100 MG Capsule 200 MG PO ×2 (08:02→16:15)
[2018-06-28] MEDS: Pantoprazole Sodium 40 MG Tablet PO (08:02)
[2018-06-28] MEDS: Insulin Lispro 100 UNIT/ML INSULN.PEN 9 UNIT SC ×3 (08:09→16:15)
[2018-06-28 08:15] LABS: Bedside Glucose 270 mg/dL (70-110)
--- NOTE | 2018-06-28 09:50 | CASEMGMT ---
Addendum entered by Louisa Rinaldi 06/28/18 11:05: Return call from Bubba TREVIÑO at [facility]. Pt does receive 7 meals per week, has a medical alert system and has been approved for Adult Day Care 3x week. Pt did receive home health aids 3x week but Bubba confirms pt cancelled this service at the end of May. AREN [place] Original Note: Assessment SW met with pt in room and introduced self and role of SW. Pt lives in a one story apartment with one step with handrail to enter. Pt was d/c from [facility] on 05/15/18 and has been doing well at home since then - able to complete ADLs independently. She is currently receiving services of [facility] for wound care. Pt states she changes dressings daily and RN comes once per week to check on leg wound. Pt does not drive. Pt dgt lives local and is attentive. Son lives out of town but is also supportive of pt. Pt does have Waiver Services through [facility] and Bubba is her CM. Pt states she receives [employer] and that she was getting an aid MWF for 2 hours from [facility] but pt recently told Bubba to stop this services as it has not been helpful. Pt feels she can care for self without the help of the aid. Pt does have a cane but is not currently using it and she does have a shower chair. Demographics verified with pt and SW inquired about advance directives which pt does not have and does not want information on. VM left with Bubba informing of pt observation admission to [facility] and to verify services. Pt plans to return home alone with continued services of [facility] at time of d/c. SW will remain available should futher needs arise. Plan: Home alone with resumption of [facility] AREN Hull
--- NOTE | 2018-06-28 11:36 | NURSING ---
wound photo: left wolfe
[2018-06-28] MEDS: Ibuprofen 600 MG Tablet PO (11:42)
[2018-06-28 11:51] LABS: Bedside Glucose 191 mg/dL (70-110)
[2018-06-28] MEDS: DiphenhydrAMINE 25 MG Capsule PO ×2 (13:28→22:38)
[2018-06-28 14:20] VITALS: BP 106/46; PULSE 79; RESP 18; TEMP 36.6; O2SAT 99
--- NOTE | 2018-06-28 14:50 | PCM.PN.HOSP ---
Patient Problems: Active and Suspected Problems Intractable abdominal pain (Acute) Subjective: Pain is improved and she is resting comfortably. Her pain is not intrabdominal but abdominal wall pain. No CP or SOB. Denies fevers and chills Vitals/I&O's: Vital Signs Temp Pulse Resp BP Pulse Ox 97.9 F 79 18 106/46 L 99 06/28/18 14:20 06/28/18 14:20 06/28/18 14:20 06/28/18 14:20 06/28/18 14:20 Oxygen Delivery Method Room Air Weight: 182 lb 15.739 oz Body Mass Index (BMI) 34.5 Finger Stick Blood Glucose 383 Intake and Output for Last 24 Hours 06/26/18 06/27/18 06/28/18 23:59 23:59 23:59 Intake Total 800 / 800 Output Total 500 / 500 Balance 300 / 300 General: Alert, Oriented x3, Cooperative, No apparent distress HEENT: Atraumatic, PERRLA, EOMI, Normocephalic Oral: Moist Mucosa Neck: Supple, No JVD Lungs: Clear to auscultation, Normal air movement, No rhonchi, No wheeze, No rales Cardiovascular: Regular rate, Regular Rhythm, Normal S1, Normal S2, No murmurs Abdomen: Soft, Non-Distended, No Hepato-splenomegaly, Tender - LLQ abdominal wall Extremities: No edema, Capillary Refill Less than 3 Seconds Skin: Ulcer/ Wound - Dressing applied, pictures reviewed, minimal erythema Neurological: Neuro grossly intact, Sensory exam intact to light touch and pain Psych/Mental Status: Normal Affect, Appropriate Laboratory Results 06/27/18 18:05: Urine Color Yellow, Urine Clarity Clear, Urine pH 7.0, Ur Specific [place] 1.005, Urine Protein 30 H, Urine Glucose (UA) Normal, Urine Ketones Negative, Urine Occult Blood 10 H, Urine Nitrite Negative, Urine Bilirubin Negative, Urine Urobilinogen Normal, Ur Leukocyte Esterase Negative, Urine RBC 0-5 SEEN, Urine WBC 0 SEEN, Ur Squamous Epith Cells 0-5 SEEN, Urine Bacteria 0 SEEN, Urine Mucus 0 SEEN 06/27/18 19:02: WBC 6.6, RBC 3.99 L, Hgb 12.1, Hct 36.0 L, MCV 90.2, MCH 30.3, MCHC 33.6, RDW 11.8, RDW Differential 38.9, Plt Count 185, MPV 9.8, Immature Gran % (Auto) 0.200, Neut % (Auto) 60.3, Lymph % (Auto) 30.8, [place] % (Auto) 6.3, Eos % (Auto) 1.8, Baso % (Auto) 0.6, Absolute Neuts (auto) 4.0, Absolute Lymphs (auto) 2.04, Total Counted Not Reportable 06/27/18 19:02: Sodium 139, Potassium 3.9, Chloride 103, Carbon Dioxide 27.0, Anion Gap 9, BUN 17, Creatinine 0.84, Estim Creat Clear Calc 45.68, Est GFR (MDRD) Af Amer 85, Est GFR (MDRD) Non-Af 70, BUN/Creatinine Ratio 20.1 H, Glucose 170 H, Calcium 9.3 06/27/18 19:02: Total Bilirubin 0.80, Direct Bilirubin 0.21, AST 17, ALT 39, Alkaline Phosphatase 73, Total Protein 7.4, Albumin 3.8, Globulin 3.6, Lipase 303 06/28/18 00:36: POC Glucose 159 H 06/28/18 05:02: WBC 5.2, RBC 3.89 L, Hgb 11.7 L, Hct 35.4 L, MCV 91.0, MCH 30.1, MCHC 33.1, RDW 12.1, RDW Differential 40.2, Plt Count 168, MPV 10.0, Immature Gran % (Auto) 0.200, Neut % (Auto) 58.4, Lymph % (Auto) 25.9, [place] % (Auto) 12.4 H, Eos % (Auto) 2.5, Baso % (Auto) 0.6, Absolute Neuts (auto) 3.0, Absolute Lymphs (auto) 1.34, Total Counted Not Reportable 06/28/18 05:02: Sodium 141, Potassium 3.5, Chloride 104, Carbon Dioxide 27.0, Anion Gap 10, BUN 16, Creatinine 0.86, Estim Creat Clear Calc 44.62, Est GFR (MDRD) Af Amer 83, Est GFR (MDRD) Non-Af 69, BUN/Creatinine Ratio 18.6, Glucose 193 H, Calcium 8.7 06/28/18 08:04: POC Glucose 270 H 06/28/18 11:40: POC Glucose 191 H Current Medications Acetaminophen (Tylenol) 650 mg PO Q4H PRN PRN PRN Reason: PAIN Atorvastatin Calcium (Lipitor) 10 mg PO QHS [facility] Collagenase (Santyl) 1 applic TOPICAL DAILY [facility]; Protocol Dextrose (D50w Syringe) 0 gm IV X1 PRN; Protocol PRN Reason: Hypoglycemia Diphenhydramine HCl (Benadryl) 25 mg PO Q6H PRN PRN PRN Reason: ITCHING Last Admin: 06/28/18 13:28 Dose: 25 mg Enoxaparin Sodium (Lovenox) 40 mg SC DAILY@1000 CLYDE Last Admin: 06/28/18 08:02 Dose: Not Given Fluticasone Propionate (Flonase Nasal [place]) 2 spray NASAL DAILY [facility] Last Admin: 06/28/18 08:01 Dose: 2 spray Gabapentin (Neurontin) 200 mg PO BIDCM [facility] Last Admin: 06/28/18 08:02 Dose: 200 mg Glucagon () 1 mg IM .X1 PRN PRN Reason: Hypoglycemia Clindamycin Phosphate 600 mg/ (Dextrose) 54 mls @ 100 mls/hr IV Q8 [facility] Last Admin: 06/28/18 13:11 Dose: 100 mls/hr Ibuprofen (Motrin) 600 mg PO Q8H PRN PRN PRN Reason: PAIN Last Admin: 06/28/18 11:42 Dose: 600 mg Insulin Glargine (Lantus (Bkc)) 27 units SC QHS [facility] Insulin Human Lispro (Humalog Kwikpen (Bkc)) 9 unit SC TIDCM [facility] Last Admin: 06/28/18 11:43 Dose: 9 u Isosorbide Mononitrate (Imdur) 30 mg PO DAILY [facility] Last Admin: 06/28/18 08:02 Dose: 30 mg Latanoprost (Xalatan Opthalmic) 1 drop EACH EYE QHS [facility] Lisinopril (Zestril) 5 mg PO DAILY [facility] Last Admin: 06/28/18 08:02 Dose: 5 mg Loratadine (Claritin) 10 mg PO DAILY [facility] Last Admin: 06/28/18 01:14 Dose: Not Given Magnesium Hydroxide (Milk Of Magnesia) 30 ml PO DAILY PRN PRN PRN Reason: Constipation Nutritional Formula (Lactose Free) (Glucerna Shake) 120 ml PO 4X/DAY [facility] Last Admin: 06/28/18 12:42 Dose: Not Given Nystatin (Mycostatin Powder) 1 applic TOPICAL 4X/DAY [facility]; Protocol Last Admin: 06/28/18 12:42 Dose: Not Given Ondansetron HCl (Zofran) 4 mg IV Q6H PRN PRN PRN Reason: NAUSEA/VOMITING Pantoprazole Sodium (Protonix) 40 mg PO DAILY [facility] Last Admin: 06/28/18 08:02 Dose: 40 mg Senna/Docusate Sodium (Senokot-S, [place]-Colace) 1 tablet PO BID [facility] Last Admin: 06/28/18 08:01 Dose: 1 tablet Sodium Chloride () 5 - 15 ml IV UD PRN PRN Reason: SALINE FLUSH Medical Necessity - Tobacco Use Smoking Status: Former smoker Assessment/Plan All Active Problems Encephalopathy (Resolved) Syncope (Resolved) Concussion (Resolved) Intractable abdominal pain (Acute) 1. Significant abdominal pain - She has had multiple ER visits for this - CT of her abdomen is negative - There are no finding on my review of her abdominal wall - Will monitor 2. Left leg wound with minimal erythema - Wound care - Clindamycin because of penicillin allergy 3. HTN - Previous SBP's in the 150's - C/w home medications 4.DM2 - C/w home insulin - Accuchecks 5. Glaucoma - stable - c/w home medications 6. GERD - stable - c/w PPI DVT: Lovenox Code Visit OBSV E&M: 25988 Subsequent observation care L2
--- NOTE | 2018-06-28 14:59 | PN_ITS ---
Patient Problems: Active and Suspected Problems Intractable abdominal pain (Acute) Subjective: Pain is improved and she is resting comfortably. Her pain is not intrabdominal but abdominal wall pain. No CP or SOB. Denies fevers and chills Vitals/I&O's: Vital Signs Temp Pulse Resp BP Pulse Ox 97.9 F 79 18 106/46 L 99 06/28/18 14:20 06/28/18 14:20 06/28/18 14:20 06/28/18 14:20 06/28/18 14:20 Oxygen Delivery Method Room Air Weight: 182 lb 15.739 oz Body Mass Index (BMI) 34.5 Finger Stick Blood Glucose 383 Intake and Output for Last 24 Hours 06/26/18 06/27/18 06/28/18 23:59 23:59 23:59 Intake Total 800 / 800 Output Total 500 / 500 Balance 300 / 300 General: Alert, Oriented x3, Cooperative, No apparent distress HEENT: Atraumatic, PERRLA, EOMI, Normocephalic Oral: Moist Mucosa Neck: Supple, No JVD Lungs: Clear to auscultation, Normal air movement, No rhonchi, No wheeze, No rales Cardiovascular: Regular rate, Regular Rhythm, Normal S1, Normal S2, No murmurs Abdomen: Soft, Non-Distended, No Hepato-splenomegaly, Tender - LLQ abdominal wall Extremities: No edema, Capillary Refill Less than 3 Seconds Skin: Ulcer/ Wound - Dressing applied, pictures reviewed, minimal erythema Neurological: Neuro grossly intact, Sensory exam intact to light touch and pain Psych/Mental Status: Normal Affect, Appropriate Laboratory Results 06/27/18 18:05: Urine Color Yellow, Urine Clarity Clear, Urine pH 7.0, Ur Specific [place] 1.005, Urine Protein 30 H, Urine Glucose (UA) Normal, Urine Ketones Negative, Urine Occult Blood 10 H, Urine Nitrite Negative, Urine Bilirubin Negative, Urine Urobilinogen Normal, Ur Leukocyte Esterase Negative, Urine RBC 0-5 SEEN, Urine WBC 0 SEEN, Ur Squamous Epith Cells 0-5 SEEN, Urine Bacteria 0 SEEN, Urine Mucus 0 SEEN 06/27/18 19:02: WBC 6.6, RBC 3.99 L, Hgb 12.1, Hct 36.0 L, MCV 90.2, MCH 30.3, MCHC 33.6, RDW 11.8, RDW Differential 38.9, Plt Count 185, MPV 9.8, Immature Gran % (Auto) 0.200, Neut % (Auto) 60.3, Lymph % (Auto) 30.8, [place] % (Auto) 6.3, Eos % (Auto) 1.8, Baso % (Auto) 0.6, Absolute Neuts (auto) 4.0, Absolute Lymphs (auto) 2.04, Total Counted Not Reportable 06/27/18 19:02: Sodium 139, Potassium 3.9, Chloride 103, Carbon Dioxide 27.0, Anion Gap 9, BUN 17, Creatinine 0.84, Estim Creat Clear Calc 45.68, Est GFR (MDRD) Af Amer 85, Est GFR (MDRD) Non-Af 70, BUN/Creatinine Ratio 20.1 H, Glucose 170 H, Calcium 9.3 06/27/18 19:02: Total Bilirubin 0.80, Direct Bilirubin 0.21, AST 17, ALT 39, Alkaline Phosphatase 73, Total Protein 7.4, Albumin 3.8, Globulin 3.6, Lipase 30 3 06/28/18 00:36: POC Glucose 159 H 06/28/18 05:02: WBC 5.2, RBC 3.89 L, Hgb 11.7 L, Hct 35.4 L, MCV 91.0, MCH 30.1, MCHC 33.1, RDW 12.1, RDW Differential 40.2, Plt Count 168, MPV 10.0, Immature Gran % (Auto) 0.200, Neut % (Auto) 58.4, Lymph % (Auto) 25.9, [place] % (Auto) 12.4 H, Eos % (Auto) 2.5, Baso % (Auto) 0.6, Absolute Neuts (auto) 3.0, Absolute Lymphs (auto) 1.34, Total Counted Not Reportable 06/28/18 05:02: Sodium 141, Potassium 3.5, Chloride 104, Carbon Dioxide 27.0, Anion Gap 10, BUN 16, Creatinine 0.86, Estim Creat Clear Calc 44.62, Est GFR (MDRD) Af Amer 83, Est GFR (MDRD) Non-Af 69, BUN/Creatinine Ratio 18.6, Glucose 193 H, Calcium 8.7 06/28/18 08:04: POC Glucose 270 H 06/28/18 11:40: POC Glucose 191 H Current Medications Acetaminophen (Tylenol) 650 mg PO Q4H PRN PRN PRN Reason: PAIN Atorvastatin Calcium (Lipitor) 10 mg PO QHS [facility] Collagenase (Santyl) 1 applic TOPICAL DAILY [facility]; Protocol Dextrose (D50w Syringe) 0 gm IV X1 PRN; Protocol PRN Reason: Hypoglycemia Diphenhydramine HCl (Benadryl) 25 mg PO Q6H PRN PRN PRN Reason: ITCHING Last Admin: 06/28/18 13:28 Dose: 25 mg Enoxaparin Sodium (Lovenox) 40 mg SC DAILY@1000 CLYDE Last Admin: 06/28/18 08:02 Dose: Not Given Fluticasone Propionate (Flonase Nasal [place]) 2 spray NASAL DAILY [facility] Last Admin: 06/28/18 08:01 Dose: 2 spray Gabapentin (Neurontin) 200 mg PO BIDCM [facility] Last Admin: 06/28/18 08:02 Dose: 200 mg Glucagon () 1 mg IM .X1 PRN PRN Reason: Hypoglycemia Clindamycin Phosphate 600 mg/ (Dextrose) 54 mls @ 100 mls/hr IV Q8 [facility] Last Admin: 06/28/18 13:11 Dose: 100 mls/hr Ibuprofen (Motrin) 600 mg PO Q8H PRN PRN PRN Reason: PAIN Last Admin: 06/28/18 11:42 Dose: 600 mg Insulin Glargine (Lantus (Bkc)) 27 units SC QHS [facility] Insulin Human Lispro (Humalog Kwikpen (Bkc)) 9 unit SC TIDCM [facility] Last Admin: 06/28/18 11:43 Dose: 9 u Isosorbide Mononitrate (Imdur) 30 mg PO DAILY [facility] Last Admin: 06/28/18 08:02 Dose: 30 mg Latanoprost (Xalatan Opthalmic) 1 drop EACH EYE QHS [facility] Lisinopril (Zestril) 5 mg PO DAILY [facility] Last Admin: 06/28/18 08:02 Dose: 5 mg Loratadine (Claritin) 10 mg PO DAILY [facility] Last Admin: 06/28/18 01:14 Dose: Not Given Magnesium Hydroxide (Milk Of Magnesia) 30 ml PO DAILY PRN PRN PRN Reason: Constipation Nutritional Formula (Lactose Free) (Glucerna Shake) 120 ml PO 4X/DAY [facility] Last Admin: 06/28/18 12:42 Dose: Not Given Nystatin (Mycostatin Powder) 1 applic TOPICAL 4X/DAY [facility]; Protocol Last Admin: 06/28/18 12:42 Dose: Not Given Ondansetron HCl (Zofran) 4 mg IV Q6H PRN PRN PRN Reason: NAUSEA/VOMITING Pantoprazole Sodium (Protonix) 40 mg PO DAILY [facility] Last Admin: 06/28/18 08:02 Dose: 40 mg Senna/Docusate Sodium (Senokot-S, [place]-Colace) 1 tablet PO BID [facility] Last Admin: 06/28/18 08:01 Dose: 1 tablet Sodium Chloride () 5 - 15 ml IV UD PRN PRN Reason: SALINE FLUSH Medical Necessity - Tobacco Use Smoking Status: Former smoker Assessment/Plan All Active Problems Encephalopathy (Resolved) Syncope (Resolved) Concussion (Resolved) Intractable abdominal pain (Acute) 1. Significant abdominal pain - She has had multiple ER visits for this - CT of her abdomen is negative - There are no finding on my review of her abdominal wall - Will monitor 2. Left leg wound with minimal erythema - Wound care - Clindamycin because of penicillin allergy 3. HTN - Previous SBP's in the 150's - C/w home medications 4.DM2 - C/w home insulin - Accuchecks 5. Glaucoma - stable - c/w home medications 6. GERD - stable - c/w PPI DVT: Lovenox Code Visit OBSV E&M: 47311 Subsequent observation care L2
[2018-06-28 16:21] LABS: Bedside Glucose 108 mg/dL (70-110)
[2018-06-28 19:49] VITALS: BP 126/70; PULSE 75; RESP 16; TEMP 36.4; O2SAT 100
[2018-06-28] MEDS: 0.9% NaCl Peripheral Flush Adult/Peds IV (22:21)
[2018-06-28] MEDS: Atorvastatin Calcium 10 MG Tablet PO (22:26)
[2018-06-28] MEDS: Latanoprost 0.005% 1 Bottle 1 DRP EACH EYE (22:27)
[2018-06-29 00:01] LABS: Bedside Glucose 132 mg/dL (70-110)
[2018-06-29 04:03] VITALS: BP 139/59; PULSE 78; RESP 16; TEMP 36.5; O2SAT 99
[2018-06-29] MEDS: 0.9% NaCl Peripheral Flush Adult/Peds IV (05:46)
[2018-06-29] MEDS: Fluticasone 0.05% 1 SPRAY NASAL.SRY 2 SPRAY NASAL (08:47)
[2018-06-29] MEDS: Gabapentin 100 MG Capsule 200 MG PO (08:47)
[2018-06-29] MEDS: Collagenase 30gm Tube 1 APPLIC TOPICAL (08:48)
[2018-06-29] MEDS: Senna/Docusate Sodium 1 Tablet PO (08:48)
[2018-06-29] MEDS: Lisinopril 5 MG Tablet PO (08:48)
[2018-06-29] MEDS: Loratadine 10 MG Tablet PO (08:48)
[2018-06-29] MEDS: Isosorbide Mononitrate 30 MG Tablet PO (08:48)
[2018-06-29] MEDS: Pantoprazole Sodium 40 MG Tablet PO (08:48)
[2018-06-29] MEDS: Insulin Lispro 100 UNIT/ML INSULN.PEN 9 UNIT SC (08:49)
[2018-06-29 08:50] VITALS: BP 152/70; PULSE 79; RESP 18; TEMP 36.5; O2SAT 98
[2018-06-29 09:00] LABS: Bedside Glucose 206 mg/dL (70-110)
[2018-06-29] MEDS: Polyethylene Glycol 3350 17 GM PACKET PO (09:15)
[2018-06-29 10:04] VITALS: O2SAT 98
--- NOTE | 2018-06-29 10:08 | PCM.DC ---
- Discharge Diagnoses Current Active Problems: Current Active and Chronic Problems Intractable abdominal pain (Acute) You will use the following diet at home:: Calorie/Carbohydrate Controlled (specify 1200, 1400, etc) Your food should be the consistency of: Regular Your liquids should be the consistency of: Regular/Thin Discharge Activity: Return to Normal Activity Call your doctor if your incision/area has: Increased Redness, Foul Smelling Discharge Call your doctor if you observe: Fever of 101 or Higher, Shortness of breath, Chest pain Allergies/Adverse Reactions: Allergies ciprofloxacin [From Cipro] Allergy (Verified 06/27/18 23:59) Rash codeine Allergy (Verified 06/27/18 23:59) Shortness of breath Penicillins Allergy (Verified 06/27/18 23:59) Hives CILLINS Allergy (Uncoded 06/27/18 23:59) Unknown Medications to take at Discharge Isosorbide Mononitrate [Isosorbide Mononitrate ER] 30 mg PO DAILY 04/10/15 Atorvastatin Calcium 10 mg PO QHS 05/03/18 Fluticasone 0.05% [Flonase Nasal [place]] 2 spray NARES DAILY 05/03/18 Gabapentin [Neurontin] 200 mg PO BID 05/03/18 Latanoprost 0.005% [Xalatan Opthalmic] 1 drop EACH EYE QHS 05/03/18 Loratadine [Claritin] 10 mg PO DAILY 05/03/18 Nystatin Powder [Mycostatin Powder] 1 applic TOPICAL 4X/DAY 05/03/18 Pantoprazole Sodium [Protonix] 40 mg PO DAILY 05/03/18 Insulin Lispro [Humalog KwikPen] 9 unit SC TIDCM #1 insuln.pen 05/14/18 Acetaminophen [Tylenol Tablet] 650 mg PO Q4H PRN PRN 06/17/18 Furosemide [Lasix] 20 mg PO DAILY 06/17/18 Ibuprofen 600 mg PO Q8H PRN 06/17/18 Lisinopril 5 mg PO DAILY 06/21/18 Insulin Glargine,Hum.rec.anlog [Lantus] 27 unit SC QHS 06/27/18 Clindamycin HCl [Cleocin] 300 mg PO Q6H #24 capsule 06/29/18 The following prescriptions were given: Clindamycin HCl [Cleocin] 300 mg PO Q6H #24 capsule Primary Care Physician: Bailey Toribio MD [Primary Care Provider] - Please follow up with your Primary Care Physician in: 3-5 days Test Results: Test results from this visit will be discussed in further detail at your follow-up appointment, if applicable. Please Follow Up With: Wound Care Clinic
--- NOTE | 2018-06-29 10:15 | CASEMGMT ---
ERICA TREVIÑO NOTE: Informed by charge nurse that pt states her brother is coming to pick her up and she has to leave in 15 minutes. Reviewed OT notes. PT has not seen pt yet. To room to talk with pt and discussed PT with her. Pt states, I've been getting along okay at home and have been doing my exercises on my own. Pt states she is not able to wait for PT to come evaluate her and states she does not feel like she needs further therapy and does not want them to come see her. States she wants to go home when her brother arrives. Call placed to therapy and notified that pt does not want them to come evaluate her. Call placed to [facility], [place], and informed her pt is discharging this morning and will need resumption of nursing home. VILLANUEVA form reviewed with pt. Pt denies having questions. Pt signed form and copy placed on chart. Pt given original. Call placed to [facility] @ [facility]. No answer. Message left on her VM that pt discharging this morning. Left her this RN KAMILA's phone number for her to call back with any questions. Ki IZQUIERDO RN, CM
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
== END 2018-06-29 10:20 | disposition home health service (06) ==
LOC: ED 23:06 → MS2 23:34
PROVIDERS: Admitting Provider Hospitalist; Emergency Provider Emergency Medicine; Family Provider Internal Medicine; PCP Internal Medicine; Visit Provider Family Medicine
DX: R10.32 Left lower quadrant pain (principal); G89.29 Other chronic pain; I10 Essential (primary) hypertension; E66.9 Obesity, unspecified; I25.10 Atherosclerotic heart disease of native coronary artery without angina pectoris; M06.9 Rheumatoid arthritis, unspecified; E11.42 Type 2 diabetes mellitus with diabetic polyneuropathy; G25.81 Restless legs syndrome; G47.33 Obstructive sleep apnea (adult) (pediatric); E11.65 Type 2 diabetes mellitus with hyperglycemia; E78.5 Hyperlipidemia, unspecified; Z87.891 Personal history of nicotine dependence; R29.810 Facial weakness; H40.9 Unspecified glaucoma; K21.9 Gastro-esophageal reflux disease without esophagitis; L03.116 Cellulitis of left lower limb; Z79.899 Other long term (current) drug therapy; Z79.4 Long term (current) use of insulin; Z79.51 Long term (current) use of inhaled steroids; Z68.34 Body mass index [BMI] 34.0-34.9, adult; Z71.3 Dietary counseling and surveillance; Z86.73 Personal history of transient ischemic attack (TIA), and cerebral infarction without residual deficits; Z86.14 Personal history of Methicillin resistant Staphylococcus aureus infection
CPT/HCPCS: 36415; 74174; 80048; 80076; 81001; 82962; 83690; 85025; 87086; 93005; 96365; 96366; 96375; 96376; 97165; 97802; 99218; 99282; J7030; Q9967; A4216; G0378; J2405

== ENCOUNTER 2018-11-15 16:29 | Emergency (ER) | payer MEDICARE, SELFPAY ==
[2018-11-15 16:29] VITALS: BP 156/72; PULSE 97; RESP 14; TEMP 36.9; O2SAT 100; BMI 32.1
--- NOTE | 2018-11-15 16:45 | CT_ITS ---
STUDY: CT BRAIN WITHOUT CONTRAST REASON FOR EXAM: Female, 72 years old. Head injury 2 days ago RADIATION DOSAGE (If Supplied By Facility): CTDIvol = ( 44.99 ) mGy, DLP = ( 762.36 ) mGycm TECHNIQUE: Transaxial CT imaging of the brain was performed without administration of intravenous contrast material. Individualized dose optimization techniques were used for this CT. COMPARISON: 06/17/2018 FINDINGS: Small amount of scalp swelling overlying the left forehead. Normal calvarium. There is mild cerebral atrophy with widening of the extra-axial spaces and ventricular dilatation. There are areas of decreased attenuation within the white matter tracts of the supratentorial brain, consistent with microvascular disease changes. Normal basal ganglia and thalami. Normal brainstem. Normal cerebellum. There is no intracranial hemorrhage. There are no findings of an acute ischemic infarction. Normal visualized paranasal sinuses. CT/Brain/Head without Contrast IMPRESSION: No acute intracranial pathology. Small amount of forehead soft tissue swelling Electronically Signed: Adonis Orlando DO at 17:20 EDT Tel , Service support ,
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
[2018-11-15 18:29] VITALS: PULSE 96; RESP 17; O2SAT 97
== END 2018-11-15 18:54 | disposition home or self-care (01) ==
PROVIDERS: Emergency Provider Emergency Medicine; Family Provider Internal Medicine; PCP Internal Medicine
DX: S09.90XA Unspecified injury of head, initial encounter (principal); L02.811 Cutaneous abscess of head [any part, except face]; W22.8XXA Striking against or struck by other objects, initial encounter; Y93.9 Activity, unspecified; Y92.9 Unspecified place or not applicable; Y99.9 Unspecified external cause status; I25.10 Atherosclerotic heart disease of native coronary artery without angina pectoris; E11.9 Type 2 diabetes mellitus without complications; I10 Essential (primary) hypertension; M06.9 Rheumatoid arthritis, unspecified; G25.81 Restless legs syndrome; K21.9 Gastro-esophageal reflux disease without esophagitis; F31.9 Bipolar disorder, unspecified; Z79.4 Long term (current) use of insulin; Z79.899 Other long term (current) drug therapy; Z86.73 Personal history of transient ischemic attack (TIA), and cerebral infarction without residual deficits; Z87.891 Personal history of nicotine dependence
CPT/HCPCS: 10060; 70450; 99282

== ENCOUNTER 2019-06-10 18:14 | Inpatient (IN) | payer MEDICARE, SELFPAY ==
[2019-06-10] VITALS (9 sets, daily range): BP systolic 116–188; BP diastolic 38–90; PULSE 78–101; RESP 16–25; TEMP 30.5–38.7; O2SAT 93–97; BMI 35.8; BMI 35.7
--- NOTE | 2019-06-10 19:01 | RAD_ITS ---
STUDY: X-RAY CHEST REASON FOR EXAM: Female, 73 years old. Coughing up thick yellow sputum for several days. Poor by mouth intake. Weakness. Intermittent fever. TECHNIQUE: PA and lateral views of the chest. COMPARISON: August 30, 2017 FINDINGS: The lungs are hypoexpanded. There is bibasilar infiltrates with minimal right pleural effusion. There is no demonstrated pleural abnormality. Normal size heart. Normal mediastinum and elva. Normal visualized pulmonary arteries. There is atherosclerotic calcification of the aortic arch with tortuosity. No visualized osseous changes. There is no demonstrated abnormality of the visualized soft tissue structures of the upper abdomen. RAD/Chest PA and Lateral IMPRESSION: Bibasilar infiltrates with small right pleural effusion. Electronically Signed: Wicho Del Angel DO at 19:26 EST Tel [phone], Service support ,
--- NOTE | 2019-06-10 20:12 | EKG12_ITS ---
Test Reason : GEN ILLNESS Blood Pressure : / mmHG Vent. Rate : 101 BPM Atrial Rate : 101 BPM P-R Int : 122 ms QRS Dur : 084 ms QT Int : 346 ms P-R-T Axes : 046 062 026 degrees QTc Int : 448 ms Sinus tachycardia Otherwise normal ECG Confirmed by DUTCH BOWMAN, ANTONIA ([id number]), marketing editor JERRI SONI ([id number]) on 06/12/2019 11:47:46 AM Referred By: Jono Bergeron Confirmed By:ANTONIA JUDD MD
[2019-06-10] MEDS: Ipratropium/Albuterol Sulfate 3 ML AMPUL.NEB INHALATION (20:32)
[2019-06-10] MEDS: Ondansetron 4 MG/2 ML Vial IV (20:43)
[2019-06-10] MEDS: MethylPREDNISolone 125 MG/2 ML Vial IV (20:43)
[2019-06-10] MEDS: Morphine 4 MG/ML Syringe IV (20:43)
[2019-06-10 20:44] LABS: Absolute Lymphocyte Count 0.98 X10^3/uL (0.83-4.51); Absolute Neutrophil Count 6.4 X10^3/uL (2.0-7.7); Basophil# 0.05 X10^3/uL; Basophil% 0.6 % (0-1); Eosinophil# 0.02 X10^3/uL; Eosinophils% 0.2 % (0-5); Hematocrit 32.3 % (37-47); Hemoglobin 10.7 g/dL (12.0-15.0); Lymphocyte # 0.98 X10^3/ul (4.0); Lymphocyte % 11.9 % (19-41); Mean Corp Hgb Conc 33.1 g/dL (32-36); Mean Corpuscular Hgb 30.8 pg (27.0-32.0); Mean Corpuscular Volume 93.1 fL (81-99); Mean Platelet Vol. 10.6 fl (6.2-12.0); Monocyte# 0.69 X10^3/uL; Monocyte% 8.4 % (0-10); NRBC Flagged by Analyzer 0 % (0-5); Neutrophil # 6.42 X10^3/uL (2.7-7.7); Neutrophil % 78.3 % (47-70); Platelet Count 127 K/mm3 (150-450); Red Blood Count 3.47 M/mm3 (4.2-5.4); White Blood Count 8.2 K/mm3 (4.4-11.0)
[2019-06-10 21:02] LABS: Anion Gap 6 (5-15); BUN 20 mg/dL (7-18); BUN/Creat Ratio 17.4 RATIO (10-20); Calcium,Total 8.6 mg/dL (8.5-10.1); Chloride 111 mmol/L (98-107); Creatinine, Serum 1.15 mg/dL (0.55-1.02); EST Glomerular Filtration Rate 49 mL/min (>60); Est Glom Filt Rate - Afr Amer 59 mL/min (>60); Estimated Creatinine Clearance 32.88 ml/min; Glucose 146 mg/dL (74-106); Potassium 3.6 mmol/L (3.5-5.1); Sodium Level 143 mmol/L (136-145)
[2019-06-10] MEDS: Ceftriaxone 1 GM/50 ML BAG IV (21:04)
[2019-06-10] MEDS: Acetaminophen 500 MG Tablet 1000 MG PO (21:11)
--- NOTE | 2019-06-10 21:17 | ED.VISSUMM ---
- ER Visit Summary Date of Service: 06/10/19 Chief Complaint: Shortness of breath and cough History of Present Illness: The patient is a [address] Willoughby. She reports that she has shortness of breath and a cough that started 2 days ago. Cough productive yellow sputum without blood. She had subjective fever and chills. She reports her shortness of breath is severe during her coughing episodes. Its moderate at rest. Patient complains of pain in her left axilla and behind her left breast that is a continuous sharp pain that is 7 out of 10 severity. She reports this is increased with twisting. Is a constant pain that waxes and wanes. She did get a flu shot this year. Physical Examination: Vitals: Stable. Afebrile. General: Well-nourished and well-developed. Head: Normocephalic atraumatic. Neck: Supple, no lymphadenopathy. No JVD. Nontender. Cardiovascular: Regular rate and rhythm. 2 out of 6 systolic murmur. Respiratory: No respiratory distress. Mild wheezing bilaterally with decreased air movement. Abdominal: Soft, nontender, nondistended, normal bowel sounds. No guarding, rebound, or peritoneal signs. Back: Nontender. Extremities: Nontender, no edema. Skin: Normal color, no rash. Neurologic: Alert and oriented ?3. Cranial nerves II through XII are intact. Normal strength and sensation. Psych: Normal affect. Test Results: EKG is sinus tach [address] changes. There is no significant change since June 2018. Lactic acid is 1.0. CBC is marked for an H&H 10.7 32.3, platelets 127, segmented of 70, monocytes 12. Chem-7 is more for chloride 110, BUN of 20, creatinine 1.15, glucose 146. Lenses negative. Clinical Impression(s) from Imaging Studies Chest X-Ray 06/10/19 19:01 IMPRESSION: Bibasilar infiltrates with small right pleural effusion. Electronically Signed: Wicho Del Angel DO at 19:26 EST Tel [phone], Service support , Emergency Department Course and Treatment: Patient was given Rocephin and Zithromax IV. She was given albuterol and Atrovent aerosols. She is given Solu-Medrol IV. She developed a fever to 101.8 degrees while emerge department given Tylenol p.o. She is now resting comfortably. Treatment Plan: Patient was discussed with Dr. Guzmán. She will be admitted to the hospital for further evaluation treatment. Disposition: Admitted in improved condition. Impression: 1. Bilateral pneumonia. 2. Right pleural effusion. This note was generated with [employer] dictation software. It may contain incorrect words, spelling, and punctuation that were not noted in review of the chart prior to signing ED Disposition - Plan for ED Patient:
--- NOTE | 2019-06-10 22:38 | HP.PCM_ITS ---
Problem List (1) CAP (community acquired pneumonia) Status: Acute Qualifiers: Laterality: unspecified laterality Qualified Code(s): J18.9 - Pneumonia, unspecified organism (2) Encephalopathy Status: Resolved (3) Seizure disorder Status: Chronic (4) Coronary artery disease Status: Chronic (5) Depression Status: Chronic (6) Tobacco abuse Status: Chronic (7) Bipolar disorder Status: Chronic (8) Multiple personality disorder Status: Chronic (9) Restless legs syndrome Status: Chronic (10) Rheumatoid arthritis Status: Chronic (11) Generalized anxiety disorder Status: Chronic (12) ELENITA on CPAP Status: Chronic (13) COPD (chronic obstructive pulmonary disease) Status: Chronic (14) Peripheral neuropathy Status: Chronic (15) Esophageal reflux Status: Chronic Qualifiers: History of Present Illness Date of Admission: 06/10/19 Chief Complaint: shortness of breath The patient is a 73 year old male patient with multiple medical comorbidities presents to the emergency room with acute shortness of breath. Chest x-ray feels bilateral pneumonia with a right pleural effusion patient's been feeling short of breath for the last several days but became more tired and nauseous with vomiting today and she was brought to the emergency room for evaluation. The patient denies chest pain does complain of generalized weakness. Due to advanced age and the nature of the pneumonia with her other symptoms she will be admitted overnight for community-acquired pneumonia. Past Medical History Past Medical History (Chronic Problems): Chronic Problems Seizure disorder (Chronic) Laceration of leg (Chronic) Stroke (Chronic) Coronary artery disease (Chronic) Depression (Chronic) Tobacco abuse (Chronic) Bipolar disorder (Chronic) Multiple personality disorder (Chronic) Restless legs syndrome (Chronic) Rheumatoid arthritis (Chronic) Generalized anxiety disorder (Chronic) ELENITA on CPAP (Chronic) COPD (chronic obstructive pulmonary disease) (Chronic) Peripheral neuropathy (Chronic) Esophageal reflux (Chronic) Depressive disorder (Chronic) Abdominal wound dehiscence (Chronic) 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) Skin ulcer of abdominal wall with fat layer exposed (Chronic) Smoker (Chronic) Obesity (Chronic) Hypertension (Chronic) Diabetes type 2, uncontrolled (Chronic) Wound, surgical, nonhealing (Chronic) Hyperglycemia (Chronic) Morbid obesity with BMI of 40.0-44.9, adult (Chronic) Open abdominal wall wound (Chronic) painful insulin nodules abd wall (Chronic) late effect medical care with painful insulin nodules abdominal wall Hyperlipidemia (Chronic) MRSA (Chronic) MRSA anterior abdomen wall cellulitis (Chronic) Cerebrovascular disease (Chronic) Status post acute ischemic stroke No residual deficit Diabetes mellitus (Chronic) Allergies ciprofloxacin [From Cipro] Allergy (Verified 06/10/19 21:14) Rash codeine Allergy (Verified 06/10/19 21:14) Shortness of breath Penicillins Allergy (Verified 06/10/19 21:14) Hives CILLINS Allergy (Uncoded 06/10/19 21:14) Unknown Home Medications: Ambulatory Orders Medication Instructions Recorded Isosorbide Mononitrate [Isosorbide 30 mg PO DAILY 04/10/15 Mononitrate ER] Atorvastatin Calcium 10 mg PO QHS 05/03/18 Fluticasone 0.05% [Flonase Nasal 2 spray NARES DAILY 05/03/18 [place]] Gabapentin [Neurontin] 200 mg PO BID 05/03/18 Latanoprost 0.005% [Xalatan 1 drop EACH EYE QHS 05/03/18 Opthalmic] Loratadine [Claritin] 10 mg PO DAILY 05/03/18 Pantoprazole Sodium [Protonix] 40 mg PO DAILY 05/03/18 Acetaminophen [Tylenol Tablet] 650 mg PO Q4H PRN PRN 06/17/18 Ibuprofen 600 mg PO Q8H PRN 06/17/18 Lisinopril 20 mg PO DAILY 06/21/18 Insulin Glargine,Hum.rec.anlog 20 unit SC QHS 06/27/18 [Lantus] Insulin Lispro [Humalog KwikPen] 9 unit SUBCUT TIDCM 06/10/19 Surgical History: appendectomy, cataract, cholecystectomy, hysterectomy, tonsillectomy, - - Glaucoma, abdominal surgery for cyst. Psychiatric History: Anxiety, Bipolar, Depression, - - Multiple personality disorder. 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 Denies: Chills, Fever, Weight Change HEENT: Denies: Head Aches, Sinus Congestion, Sinus Drainage Cardiovascular: Denies: Chest Pain, Palpitations Respiratory: Reports: Shortness of breath at rest, Wheezing. Denies: Cough, Sputum production Gastrointestinal: Reports: Nausea, Vomiting. Denies: Abdominal Pain Genitourinary: Denies: Dysuria Musculoskeletal: Denies: Joint Pain, Joint Tenderness Skin: Denies: Rash, Wounds Neurological: Denies: Numbness, Tingling, Focal weakness Psychiatric: Denies: Anxiety, Depression, Homicidal Ideations, Suicidal Ideations Hematologic/ Lymphatic: Denies: Easy Bruising, Easy Bleeding VTE Information - Inpt Only VTE Present on Admission: No VTE Mechan Device Prophylaxis: None VTE Pharm Prophylaxis ordered?: Yes Patient Problems: Active and Suspected Problems CAP (community acquired pneumonia) (Acute) - Physical Exam Vitals/I&O's: Vital Signs Temp Pulse Resp BP Pulse Ox 99.8 F H 95 16 175/73 H 97 06/10/19 22:06 06/10/19 22:06 06/10/19 22:06 06/10/19 22:06 06/10/19 22:06 Oxygen Flow Rate (L/min) 2 Oxygen Delivery Method Room Air Weight: 189 lb 9.561 oz Body Mass Index (BMI) 35.8 Finger Stick Blood Glucose 383 Intake and Output for Last 24 Hours 06/08/19 06/09/19 06/10/19 23:59 23:59 23:59 Intake Total 550 / 550 Balance 550 / 550 General: Alert, Oriented x3, Cooperative HEENT: Atraumatic, Normocephalic Neck: Supple Lungs: Normal air movement, Diminished, Wheezes Cardiovascular: Regular rate, Normal S1, Normal S2, No murmurs Abdomen: Bowel Sounds Present, Soft, Non Tender, Obese Extremities: No edema, Capillary Refill Less than 3 Seconds Skin: No rashes Musculoskeletal: No Tenderness to Palpation of Joints or Extremities Neurological: Neuro grossly intact Psych/Mental Status: Normal Affect, Appropriate Microbiology Past 72 Hours 06/10/19 20:55 Mucosa - Nasopharyngeal Influenza Types A,B Direct FA (ANTONIO) - Final Laboratory Results 06/10/19 20:20: WBC 8.2, RBC 3.47 L, Hgb 10.7 L, Hct 32.3 L, MCV 93.1, MCH 30.8, MCHC 33.1, RDW Std Deviation 44.0 H, RDW Coeff of Kusum 13.0, Plt Count 127 L, MPV 10.6, Immature Gran % (Auto) 0.600, Neut % (Auto) 78.3 H, Lymph % (Auto) 11.9 L, [place] % (Auto) 8.4, Eos % (Auto) 0.2, Baso % (Auto) 0.6, Absolute Neuts (auto) 6.4, Absolute Lymphs (auto) 0.98, Nucleated RBC % 0 06/10/19 20:20: Sodium 143, Potassium 3.6, Chloride 111 H, Carbon Dioxide 26.0, Anion Gap 6, BUN 20 H, Creatinine 1.15 H, Estim Creat Clear Calc 32.88, Est GFR (MDRD) Af Amer 59 L, Est GFR (MDRD) Non-Af 49 L, BUN/Creatinine Ratio 17.4, Glucose 146 H, Calcium 8.6 06/10/19 20:20: Lactic Acid 1.0 Current Medications Sodium Chloride () 500 mls @ 999 mls/hr IV .Q31M ONE Last Infusion: 06/10/19 21:18 Dose: Infused Documented by: Assessment/Plan All Active Problems Encephalopathy (Resolved) Syncope (Resolved) Concussion (Resolved) Intractable abdominal pain (Acute) CAP (community acquired pneumonia) (Acute) Chronic Problems Seizure disorder (Chronic) Laceration of leg (Chronic) Stroke (Chronic) Coronary artery disease (Chronic) Depression (Chronic) Tobacco abuse (Chronic) Bipolar disorder (Chronic) Multiple personality disorder (Chronic) Restless legs syndrome (Chronic) Rheumatoid arthritis (Chronic) Generalized anxiety disorder (Chronic) ELENITA on CPAP (Chronic) COPD (chronic obstructive pulmonary disease) (Chronic) Peripheral neuropathy (Chronic) Esophageal reflux (Chronic) Depressive disorder (Chronic) Abdominal wound dehiscence (Chronic) 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) Skin ulcer of abdominal wall with fat layer exposed (Chronic) Smoker (Chronic) Obesity (Chronic) Hypertension (Chronic) Diabetes type 2, uncontrolled (Chronic) Wound, surgical, nonhealing (Chronic) Hyperglycemia (Chronic) Morbid obesity with BMI of 40.0-44.9, adult (Chronic) Open abdominal wall wound (Chronic) painful insulin nodules abd wall (Chronic) late effect medical care with painful insulin nodules abdominal wall Hyperlipidemia (Chronic) MRSA (Chronic) MRSA anterior abdomen wall cellulitis (Chronic) Cerebrovascular disease (Chronic) Status post acute ischemic stroke No residual deficit Diabetes mellitus (Chronic) Plan 1. Community acquired pneumonia continue Rocephin and azithromycin as started in the emergency room, oxygen per per routine protocol, will hold off on steroids for now due to risk of hyperglycemia and other mood disorder symptoms. 2. Hypertension continue routine home medication 3. Diabetes continue routine medication 4. Active sleep apnea maintain CPAP 5. DVT prophylaxis low molecular weight heparin Code Visit Inpatient E&M: 92993 Init Hosp L3
[2019-06-11] VITALS (9 sets, daily range): BP systolic 134–145; BP diastolic 37–48; PULSE 81–95; RESP 18; TEMP 36.7–36.8; O2SAT 94–99
[2019-06-11 00:41] LABS: Bedside Glucose 294 mg/dL (70-110)
[2019-06-11] MEDS: Ipratropium/Albuterol Sulfate 3 ML AMPUL.NEB INHALATION ×4 (03:50→14:16)
[2019-06-11 05:51] LABS: Absolute Lymphocyte Count 0.33 X10^3/uL (0.83-4.51); Absolute Neutrophil Count 5.7 X10^3/uL (2.0-7.7); Basophil# 0.01 X10^3/uL; Basophil% 0.2 % (0-1); Hematocrit 30.1 % (37-47); Hemoglobin 9.8 g/dL (12.0-15.0); Lymphocyte # 0.33 X10^3/ul (4.0); Lymphocyte % 5.3 % (19-41); Mean Corp Hgb Conc 32.6 g/dL (32-36); Mean Corpuscular Hgb 30.7 pg (27.0-32.0); Mean Corpuscular Volume 94.4 fL (81-99); Mean Platelet Vol. 10.4 fl (6.2-12.0); Monocyte% 1.6 % (0-10); NRBC Flagged by Analyzer 0 % (0-5); Neutrophil # 5.69 X10^3/uL (2.7-7.7); Neutrophil % 92.1 % (47-70); POSITIVE DIFFERENTIAL YES; Platelet Count 104 K/mm3 (150-450); RBC Distribution Width CV 12.5 % (11.6-14.6); RBC Distribution Width SD 43.3 fl (35.1-43.9); Red Blood Count 3.19 M/mm3 (4.2-5.4); White Blood Count 6.2 K/mm3 (4.4-11.0)
[2019-06-11 06:07] LABS: Anion Gap 9 (5-15); BUN 25 mg/dL (7-18); BUN/Creat Ratio 17.6 RATIO (10-20); Chloride 108 mmol/L (98-107); Creatinine, Serum 1.42 mg/dL (0.55-1.02); EST Glomerular Filtration Rate 39 mL/min (>60); Est Glom Filt Rate - Afr Amer 47 mL/min (>60); Estimated Creatinine Clearance 26.63 ml/min; Glucose 359 mg/dL (74-106); Potassium 3.9 mmol/L (3.5-5.1); Sodium Level 139 mmol/L (136-145)
[2019-06-11 06:15] LABS: Differential Indicated SCAN CRITERIA MET
[2019-06-11 07:00] LABS: Bedside Glucose 360 mg/dL (70-110)
[2019-06-11] MEDS: Insulin Lispro 100 UNIT/ML INSULN.PEN SC ×2 (07:10→11:38)
[2019-06-11] MEDS: Isosorbide Mononitrate 30 MG Tablet PO (09:51)
[2019-06-11] MEDS: Gabapentin 100 MG Capsule 200 MG PO (09:51)
[2019-06-11] MEDS: Loratadine 10 MG Tablet PO (09:51)
[2019-06-11] MEDS: Pantoprazole Sodium 40 MG Tablet PO (09:51)
[2019-06-11] MEDS: guaiFENesin 1,200 MG Tablet 1200 MG PO (09:52)
[2019-06-11 11:46] LABS: Bedside Glucose 383 mg/dL (70-110)
--- NOTE | 2019-06-11 13:54 | DCINST_ITS ---
- Discharge Diagnoses Current Active Problems: Current Active and Chronic Problems CAP (community acquired pneumonia) (Acute) You will use the following diet at home:: No restrictions Call your doctor if you observe: Fever of 101 or Higher, Shortness of breath Allergies/Adverse Reactions: Allergies ciprofloxacin [From Cipro] Allergy (Verified 06/10/19 21:14) Rash codeine Allergy (Verified 06/10/19 21:14) Shortness of breath Penicillins Allergy (Verified 06/10/19 21:14) Hives CILLINS Allergy (Uncoded 06/10/19 21:14) Unknown Medications to take at Discharge Isosorbide Mononitrate [Isosorbide Mononitrate ER] 30 mg PO DAILY 04/10/15 Atorvastatin Calcium 10 mg PO QHS 05/03/18 Fluticasone 0.05% [Flonase Nasal [place]] 2 spray NARES DAILY 05/03/18 Gabapentin [Neurontin] 200 mg PO BID 05/03/18 Latanoprost 0.005% [Xalatan Opthalmic] 1 drop EACH EYE QHS 05/03/18 Loratadine [Claritin] 10 mg PO DAILY 05/03/18 Pantoprazole Sodium [Protonix] 40 mg PO DAILY 05/03/18 Acetaminophen [Tylenol Tablet] 650 mg PO Q4H PRN PRN 06/17/18 Ibuprofen 600 mg PO Q8H PRN 06/17/18 Lisinopril 20 mg PO DAILY 06/21/18 Insulin Glargine,Hum.rec.anlog [Lantus] 20 unit SC QHS 06/27/18 Insulin Lispro [Humalog KwikPen] 9 unit SUBCUT TIDCM 06/10/19 Albuterol Inhaler [Ventolin Hfa] 1 - 2 puff INHALATION Q4H PRN PRN #1 inhaler 06/11/19 Azithromycin 250 mg PO DAILY #3 tab 06/11/19 Cephalexin [Keflex] 500 mg PO TID #12 cap 06/11/19 Guaifenesin [Mucinex] 1,200 mg PO BID #10 tab 06/11/19 The following prescriptions were given: Azithromycin 250 mg PO DAILY #3 tab Transmission Status: Pending to [facility] Cephalexin [Keflex] 500 mg PO TID #12 cap Transmission Status: Pending to [facility] Guaifenesin [Mucinex] 1,200 mg PO BID #10 tab Transmission Status: Pending to [facility] Albuterol Inhaler [Ventolin Hfa] 1 - 2 puff INHALATION Q4H PRN PRN #1 inhaler PRN Reason: Shortness Of Breath Transmission Status: Pending to [facility] Primary Care Physician: Bialey Toribio MD [Primary Care Provider] - Within 1 Week Test Results: Test results from this visit will be discussed in further detail at your follow- up appointment, if applicable. Proposed Discharge Date: 06/11/19
--- NOTE | 2019-06-11 13:55 | DS.PCM_ITS ---
Discharge Date and Diagnosis - Problem List Patient Problems: Active and Suspected Problems CAP (community acquired pneumonia) (Acute) Date of Admission: 06/10/19 Date of Discharge: 06/11/19 - Primary Discharge Diagnosis Active and Suspected Problems CAP (community acquired pneumonia) (Acute) - Secondary Discharge Diagnosis Chronic Problems Seizure disorder (Chronic) Laceration of leg (Chronic) Stroke (Chronic) Coronary artery disease (Chronic) Depression (Chronic) Tobacco abuse (Chronic) Bipolar disorder (Chronic) Multiple personality disorder (Chronic) Restless legs syndrome (Chronic) Rheumatoid arthritis (Chronic) Generalized anxiety disorder (Chronic) ELENITA on CPAP (Chronic) COPD (chronic obstructive pulmonary disease) (Chronic) Peripheral neuropathy (Chronic) Esophageal reflux (Chronic) Depressive disorder (Chronic) Abdominal wound dehiscence (Chronic) 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) Skin ulcer of abdominal wall with fat layer exposed (Chronic) Smoker (Chronic) Obesity (Chronic) Hypertension (Chronic) Diabetes type 2, uncontrolled (Chronic) Wound, surgical, nonhealing (Chronic) Hyperglycemia (Chronic) Morbid obesity with BMI of 40.0-44.9, adult (Chronic) Open abdominal wall wound (Chronic) painful insulin nodules abd wall (Chronic) late effect medical care with painful insulin nodules abdominal wall Hyperlipidemia (Chronic) MRSA (Chronic) MRSA anterior abdomen wall cellulitis (Chronic) Cerebrovascular disease (Chronic) Status post acute ischemic stroke No residual deficit Diabetes mellitus (Chronic) Hospital Course and Treatment Imaging Results: Clinical Impression(s) from Imaging Studies Chest X-Ray 06/10/19 19:01 IMPRESSION: Bibasilar infiltrates with small right pleural effusion. Electronically Signed: Wicho Del Angel DO at 19:26 EST Tel [phone], Service support , Operations: None Procedures: None Summary of Care Provided: The patient is a 73 year old F presents with SOB. Not septic on admission and did well without oxygen. CXR consistent with bilaterally reticular infiltrate. Started on CTX and azithromycin. As she is currently stable, it felt appropriate to discharge the patient to home with keflex and azithromycin and albuterol MDI.[] Patient Problems: Active and Suspected Problems CAP (community acquired pneumonia) (Acute) - Physical Exam Vitals/I&O's: Vital Signs Temp Pulse Resp BP Pulse Ox 36.8 C 91 18 134/37 H 95 06/11/19 08:38 06/11/19 08:38 06/11/19 08:38 06/11/19 08:38 06/11/19 09:56 Oxygen Flow Rate (L/min) [ 0 AMBULATING on Room Air] Oxygen Flow Rate (L/min) 3 Oxygen Delivery Method Room Air Weight: 85.9 kg Body Mass Index (BMI) 35.7 Finger Stick Blood Glucose 383 Intake and Output for Last 24 Hours 06/09/19 06/10/19 06/11/19 23:59 23:59 23:59 Intake Total 805 / 805 450 / 450 Output Total 200 / 200 Balance 805 / 805 250 / 250 General: Alert, No apparent distress HEENT: Atraumatic, Normocephalic Oral: Moist Mucosa, No Gingival or Mucosal Lesions/ Ulcerations Neck: No Nodes, Trachea Midline Lungs: Normal air movement, - - crackles in bases bilaterally. Cardiovascular: Regular rate, Regular Rhythm, Normal S1, Normal S2, No murmurs Psych/Mental Status: Normal Affect, Appropriate Microbiology Past 72 Hours 06/10/19 20:55 Mucosa - Nasopharyngeal Influenza Types A,B Direct FA (ANTONIO) - Final Laboratory Results 06/10/19 20:20: WBC 8.2, RBC 3.47 L, Hgb 10.7 L, Hct 32.3 L, MCV 93.1, MCH 30.8, MCHC 33.1, RDW Std Deviation 44.0 H, RDW Coeff of Kusum 13.0, Plt Count 127 L, MPV 10.6, Immature Gran % (Auto) 0.600, Neut % (Auto) 78.3 H, Lymph % (Auto) 11.9 L, [place] % (Auto) 8.4, Eos % (Auto) 0.2, Baso % (Auto) 0.6, Absolute Neuts (auto) 6.4, Absolute Lymphs (auto) 0.98, Nucleated RBC % 0 06/10/19 20:20: Sodium 143, Potassium 3.6, Chloride 111 H, Carbon Dioxide 26.0, Anion Gap 6, BUN 20 H, Creatinine 1.15 H, Estim Creat Clear Calc 32.88, Est GFR (MDRD) Af Amer 59 L, Est GFR (MDRD) Non-Af 49 L, BUN/Creatinine Ratio 17.4, Glucose 146 H, Calcium 8.6 06/10/19 20:20: Lactic Acid 1.0 06/11/19 00:35: POC Glucose 294 H 06/11/19 05:36: WBC 6.2, RBC 3.19 L, Hgb 9.8 L, Hct 30.1 L, MCV 94.4, MCH 30.7, MCHC 32.6, RDW Std Deviation 43.3, RDW Coeff of Kusum 12.5, Plt Count 104 L, MPV 10.4, Immature Gran % (Auto) 0.800, Neut % (Auto) 92.1 H, Lymph % (Auto) 5.3 L, [place] % (Auto) 1.6, Eos % (Auto) 0.0, Baso % (Auto) 0.2, Absolute Neuts (auto) 5.7, Absolute Lymphs (auto) 0.33 L, Nucleated RBC % 0, Differential Comment 06/11/19 05:36: Sodium 139, Potassium 3.9, Chloride 108 H, Carbon Dioxide 22.0, Anion Gap 9, BUN 25 H, Creatinine 1.42 H, Estim Creat Clear Calc 26.63, Est GFR (MDRD) Af Amer 47 L, Est GFR (MDRD) Non-Af 39 L, BUN/Creatinine Ratio 17.6, Glucose 359 H, Calcium 8.0 L 06/11/19 06:55: POC Glucose 360 H 06/11/19 11:36: POC Glucose 383 H Current Medications Acetaminophen (Tylenol) 650 mg PO Q4H PRN PRN PRN Reason: Pain Score 1-10/10 Albuterol/Ipratropium (Duoneb) 3 ml INHALATION Q4H.RT [facility] Last Admin: 06/11/19 10:40 Dose: 3 ml Documented by: Atorvastatin Calcium (Lipitor) 10 mg PO QHS [facility] Dextrose (D50w Syringe) 0 gm IV X1 PRN; Protocol PRN Reason: Hypoglycemia Enoxaparin Sodium (Lovenox) 40 mg SC DAILY [facility] Last Admin: 06/11/19 09:55 Dose: Not Given Documented by: Gabapentin (Neurontin) 200 mg PO BID [facility] Last Admin: 06/11/19 09:51 Dose: 200 mg Documented by: Glucagon () 1 mg IM .X1 PRN PRN Reason: Hypoglycemia Guaifenesin (Mucinex) 1,200 mg PO BID [facility] Last Admin: 06/11/19 09:52 Dose: 1,200 mg Documented by: Sodium Chloride () 500 mls @ 999 mls/hr IV .Q31M ONE Last Infusion: 06/10/19 21:18 Dose: Infused Documented by: Ceftriaxone Sodium (Rocephin) 1 gm in 50 mls @ 100 mls/hr IV Q24H [facility] Azithromycin 500 mg/ Dextrose 255 mls @ 250 mls/hr IV Q24H [facility] Ibuprofen (Motrin) 600 mg PO Q8H PRN PRN PRN Reason: Pain Score 1-10/10 Insulin Glargine (Lantus (Bkc)) 20 units SC QHS [facility] Insulin Human Lispro (Humalog Kwikpen (Bk)) 0 unit SC ACHS [facility]; Protocol Last Admin: 06/11/19 11:38 Dose: 14 units Documented by: Isosorbide Mononitrate (Imdur) 30 mg PO DAILY [facility] Last Admin: 06/11/19 09:51 Dose: 30 mg Documented by: Latanoprost (Xalatan Opthalmic) 1 drop EACH EYE QHS [facility] Lisinopril (Zestril) 20 mg PO DAILY [facility] Last Admin: 06/11/19 09:56 Dose: Not Given Documented by: Loratadine (Claritin) 10 mg PO DAILY [facility] Last Admin: 06/11/19 09:51 Dose: 10 mg Documented by: Nutritional Formula (Lactose Free) (Glucerna Shake) 120 ml PO 4X/DAY [facility] Pantoprazole Sodium (Protonix) 40 mg PO DAILY [facility] Last Admin: 06/11/19 09:51 Dose: 40 mg Documented by: Sodium Chloride () 10 - 40 ml IV UD PRN PRN Reason: SALINE FLUSH Discharge Diet: No Restrictions Discharge Activity: Return to Normal Activity Call your doctor if you observe: Fever of 101 or Higher, Shortness of breath Home Medications: Medications to take at Discharge Isosorbide Mononitrate [Isosorbide Mononitrate ER] 30 mg PO DAILY 04/10/15 Atorvastatin Calcium 10 mg PO QHS 05/03/18 Fluticasone 0.05% [Flonase Nasal [place]] 2 spray NARES DAILY 05/03/18 Gabapentin [Neurontin] 200 mg PO BID 05/03/18 Latanoprost 0.005% [Xalatan Opthalmic] 1 drop EACH EYE QHS 05/03/18 Loratadine [Claritin] 10 mg PO DAILY 05/03/18 Pantoprazole Sodium [Protonix] 40 mg PO DAILY 05/03/18 Acetaminophen [Tylenol Tablet] 650 mg PO Q4H PRN PRN 06/17/18 Ibuprofen 600 mg PO Q8H PRN 06/17/18 Lisinopril 20 mg PO DAILY 06/21/18 Insulin Glargine,Hum.rec.anlog [Lantus] 20 unit SC QHS 06/27/18 Insulin Lispro [Humalog KwikPen] 9 unit SUBCUT TIDCM 06/10/19 Albuterol Inhaler [Ventolin Hfa] 1 - 2 puff INHALATION Q4H PRN PRN #1 inhaler 06/11/19 Azithromycin 250 mg PO DAILY #3 tab 06/11/19 Cephalexin [Keflex] 500 mg PO TID #12 cap 06/11/19 Guaifenesin [Mucinex] 1,200 mg PO BID #10 tab 06/11/19 Following Prescrptions Were Given to Patient: Azithromycin 250 mg PO DAILY #3 tab Transmission Status: Pending to [facility] Cephalexin [Keflex] 500 mg PO TID #12 cap Transmission Status: Pending to [facility] Guaifenesin [Mucinex] 1,200 mg PO BID #10 tab Transmission Status: Pending to [facility] Albuterol Inhaler [Ventolin Hfa] 1 - 2 puff INHALATION Q4H PRN PRN #1 inhaler PRN Reason: Shortness Of Breath Transmission Status: Pending to [facility] Primary Care Physician: Bailey Toribio MD [Primary Care Provider] - Within 1 Week Disposition: Home Minutes spent on discharge:: 25 Patient Condition:: Good Medical Necessity - Tobacco Use Smoking Status: Former smoker Tobacco Use: Cigarettes Meaningful Use Info Meaningful Use Diagnoses (Choose all that apply): None applicable Code Visit OBSV E&M: 96988 Observation care discharge
--- NOTE | 2019-06-11 14:25 | CASEMGMT ---
RN KAMILA Face to Face with patient for initial transition planning/care coordination assessment. RN CM introduced self and role at [facility]. Patient lying in bed, alert and oriented, significant other at bedside. Patient willing to participate in assessment and is able to answer all questions appropriately. Care providers, pharmacy, and demographics verified. Patient wishes to discharge home, denies need for home health at this time. Patient states she has no further needs or concerns at this time. CM to follow for discharge planning needs that may arise. PCP: [facility] Specialists: None Preferred Pharmacy: [facility] Insurance: [facility] Prescription Benefit: yes Living Will/HPOA: none LNOK: son and daughter Living Arrangements: Patient lives with significant other in one story home with 2 steps with railing to enter the home. Patient independent at home. Transportation: Self, significant other DME/HHC: Patient has concentrator at home. Patient has had [facility] in the past. Disposition Plan: Patient to discharge home with family support and follow-up plans in place. Monet IZQUIERDO, RN, CM
--- NOTE | 2019-06-13 15:31 | CASEMGMT ---
ERICA CM DC PHONE CALL DC DATE: 06.11.19 DC Disposition: Home Diagnosis on Discharge: CAP LACE/STRATA:9 Attempted call to home phone. Answering machine has not been set up. Rangel WEIRN RN ACM
== END 2019-06-11 16:19 | disposition home or self-care (01) | DRG 194 ==
LOC: ED 20:20 → MS3 23:19
PROVIDERS: Admitting Provider Family Medicine; Emergency Provider Emergency Medicine; Family Provider Internal Medicine; PCP Internal Medicine; Referring Provider Family Medicine
DX: J18.9 Pneumonia, unspecified organism (principal); J44.0 Chronic obstructive pulmonary disease with (acute) lower respiratory infection; I10 Essential (primary) hypertension; G40.909 Epilepsy, unspecified, not intractable, without status epilepticus; G47.33 Obstructive sleep apnea (adult) (pediatric); G25.81 Restless legs syndrome; K21.9 Gastro-esophageal reflux disease without esophagitis; I25.10 Atherosclerotic heart disease of native coronary artery without angina pectoris; E78.5 Hyperlipidemia, unspecified; M06.9 Rheumatoid arthritis, unspecified; Z86.73 Personal history of transient ischemic attack (TIA), and cerebral infarction without residual deficits; Z86.14 Personal history of Methicillin resistant Staphylococcus aureus infection; F31.9 Bipolar disorder, unspecified; Z79.4 Long term (current) use of insulin; F44.81 Dissociative identity disorder; Z87.891 Personal history of nicotine dependence
CPT/HCPCS: 36415; 71046; 80048; 82962; 83605; 85025; 87040; 87804; 93005; 94640; 97802; 99285; J7030; A4216; J2405

== ENCOUNTER 2019-06-21 03:12 | Inpatient (IN) | payer MEDICARE, SELFPAY ==
[2019-06-10 23:41] VITALS: BMI 35.7
[2019-06-21] VITALS (17 sets, daily range): BP systolic 126–227; BP diastolic 48–92; PULSE 70–96; RESP 15–20; TEMP 36.6–37.3; O2SAT 93–100; BMI 35.4; BMI 34.8
--- NOTE | 2019-06-21 03:25 | EKG12_ITS ---
Test Reason : CP Blood Pressure : / mmHG Vent. Rate : 099 BPM Atrial Rate : 099 BPM P-R Int : 142 ms QRS Dur : 082 ms QT Int : 366 ms P-R-T Axes : 036 038 023 degrees QTc Int : 469 ms Normal sinus rhythm Normal ECG Confirmed by ANTONIA JUDD MD ([id number]), editorial project manager JERRI SONI ([id number]) on 06/24/2019 1:31:17 PM Referred By: JUAN Confirmed By:ANTONIA JUDD MD
--- NOTE | 2019-06-21 03:25 | RAD_ITS ---
STUDY: X-RAY CHEST REASON FOR EXAM: Female, 73 years old. Dyspnea TECHNIQUE: Single PA view of the chest. COMPARISON: 06/10/2019 FINDINGS: Ill-defined opacities are seen in the right and left lung bases suggesting bilateral pneumonia. There is no demonstrated pleural abnormality. Normal size heart. Normal mediastinum and elva. Normal visualized pulmonary arteries. Normal visualized aortic arch and descending thoracic aorta. Normal visualized thoracic spine. Normal visualized ribs, clavicles, and shoulders. There is no demonstrated abnormality of the visualized soft tissue structures of the upper abdomen. RAD/Chest 1 View (Portable) IMPRESSION: Ill-defined opacities are seen in the right and left lung bases suggesting bilateral pneumonia. There has been no significant change since earlier study. Electronically Signed: Yolette Caputo, at 4:11 EST Tel , Service support ,
--- NOTE | 2019-06-21 03:27 | ED.VIS.GEN ---
History of Present Illness Chief Complaint: Chest Pain Detail of Chief Complaint: Chest pain and shortness of breath Informant: Patient, Family Onset: Yesterday Current Severity: Moderate Maximum Severity: Moderate Narrative: Patient presents with chest pain or shortness of breath that was present all day yesterday, worsened around 5 or 6 PM last evening. Patient was admitted to the hospital approximately 10 days ago with pneumonia. She was discharged with Keflex and azithromycin. Patient states her symptoms did seem to improve but then worsened again yesterday. She has not had significant cough. She states she did take her normal medications yesterday. - Past Medical History (1) Bipolar disorder Status: Chronic (2) COPD (chronic obstructive pulmonary disease) Status: Chronic (3) Cerebrovascular disease Status: Chronic Comment: Status post acute ischemic stroke No residual deficit (4) Coronary artery disease Status: Chronic (5) Depression Status: Chronic (6) Diabetes mellitus Status: Chronic (7) Esophageal reflux Status: Chronic (8) Generalized anxiety disorder Status: Chronic (9) Hyperlipidemia Status: Chronic (10) Hypertension Status: Chronic (11) Restless legs syndrome Status: Chronic (12) Rheumatoid arthritis Status: Chronic (13) Seizure disorder Status: Chronic Past Medical History - Allergies and Home Meds Allergies/Adverse Reactions: Allergies ciprofloxacin [From Cipro] Allergy (Verified 06/10/19 21:14) Rash codeine Allergy (Verified 06/10/19 21:14) Shortness of breath Penicillins Allergy (Verified 06/10/19 21:14) Hives CILLINS Allergy (Uncoded 06/10/19 21:14) Unknown Primary Care Physician: Bailey Toribio MD [Primary Care Provider] - Prior records reviewed: Yes Surgical History: appendectomy, cataract, cholecystectomy, hysterectomy, tonsillectomy, - - Glaucoma, abdominal surgery for cyst. Lives: Spouse/ Significant Other Smoking Status: Former smoker - Family History Maternal Family History: Reports: Diabetes, Heart Disease, Hypertension Paternal Family History: Reports: Heart Disease Review of Systems General: Denies: Chills, Fever Eyes: Denies: Visual changes - bilaterally ENT: Denies: Bilateral ear pain Cardiovascular: Reports: Chest pain Respiratory: Reports: Dyspnea Gastrointestinal: Denies: Nausea, Vomiting, Diarrhea Musculoskeletal: Denies: Swelling Skin: Denies: Rash Neurological: Denies: Headache Hematologic: Denies: Easy bruising Allergy: Denies: Uticaria Physical Exam Vital Signs/Narrative: Vital Signs Temp Pulse Resp BP Pulse Ox 06/21/19 03:20 98.2 F 96 20 H 227/92 H 95 06/21/19 03:14 98.2 F 96 20 H 227/92 H 95 Inital Vital Signs reviewed: Yes General: Well nourished, Well developed Head: Normocephalic ENT: Moist mucous membranes Neck: Supple Cardiovascular: Regular rate, Regular rhythm Respiratory: Wheezing - Mild expiratory wheezes. Abdomen: Soft, Nontender Skin: Normal color Neurological: Alert Psychological: Agitated Diagnostic/Tx/Re-eval Impressions Chest X-Ray 06/21/19 03:25 IMPRESSION: Ill-defined opacities are seen in the right and left lung bases suggesting bilateral pneumonia. There has been no significant change since earlier study. Electronically Signed: Yolette Caputo, at 4:11 EST Tel , Service support , Chest CTA 06/21/19 03:57 IMPRESSION: No demonstrated pulmonary embolism or arterial dissection. Congestive heart failure. Probable superimposed pneumonia in the left lower lobe. Electronically Signed: Yolette Caputo, at 5:07 EST Tel , Service support , 06/21/19 03:25 Chest 1 View (Portable) [RAD] Stat 06/21/19 03:57 CTA Chest W/WO Contrast [CT] Stat Laboratory Results 06/21/19 06/21/19 06/21/19 03:20 03:20 03:50 WBC 9.2 RBC 3.10 L Hgb 9.8 L Hct 28.6 L MCV 92.3 MCH 31.6 MCHC 34.3 RDW Std Deviation 43.1 RDW Coeff of Kusum 12.9 Plt Count 179 MPV 10.1 Immature Gran % (Auto) 0.300 Neut % (Auto) 72.8 H Lymph % (Auto) 18.4 L [place] % (Auto) 6.2 Eos % (Auto) 1.6 Baso % (Auto) 0.7 Absolute Neuts (auto) 6.7 Absolute Lymphs (auto) 1.69 Nucleated RBC % 0 Sodium 143 Potassium 3.6 Chloride 109 H Carbon Dioxide 27.0 Anion Gap 7 BUN 23 H Creatinine 1.46 H Estim Creat Clear Calc 25.90 Est GFR (MDRD) Af Amer 45 L Est GFR (MDRD) Non-Af 37 L BUN/Creatinine Ratio 15.8 Glucose 224 H Lactic Acid 1.3 Calcium 7.9 L Troponin I < 0.015 - EKG Initial EKG Interpretation: Sinus Rhythm - Sinus at 99 with no acute ischemia. - Medical Decision Making Patient was given a DuoNeb treatment on arrival. She is given IV fluids, morphine, and Zofran for pain. Upon completion of x-ray patient was given Rocephin and Zithromax. CTA reveals left lower lobe infiltrate and bilateral pleural effusions on my review. No evidence of PE or dissection. She will be admitted for further treatment and evaluation. ED Disposition - Plan for ED Patient: Disposition: Acute Care Hospital [facility] Diagnosis: Pneumonia Referrals: Bailey Toribio MD [Primary Care Provider] -
[2019-06-21] MEDS: Ipratropium/Albuterol Sulfate 3 ML AMPUL.NEB INHALATION (03:29)
[2019-06-21] MEDS: Ondansetron 4 MG/2 ML Vial IV (03:34)
[2019-06-21] MEDS: Morphine 4 MG/ML Syringe IV (03:35)
[2019-06-21 03:38] LABS: Absolute Lymphocyte Count 1.69 X10^3/uL (0.83-4.51); Absolute Neutrophil Count 6.7 X10^3/uL (2.0-7.7); Basophil# 0.06 X10^3/uL; Basophil% 0.7 % (0-1); Eosinophil# 0.15 X10^3/uL; Eosinophils% 1.6 % (0-5); Hematocrit 28.6 % (37-47); Hemoglobin 9.8 g/dL (12.0-15.0); Lymphocyte # 1.69 X10^3/ul (4.0); Lymphocyte % 18.4 % (19-41); Mean Corp Hgb Conc 34.3 g/dL (32-36); Mean Corpuscular Hgb 31.6 pg (27.0-32.0); Mean Corpuscular Volume 92.3 fL (81-99); Mean Platelet Vol. 10.1 fl (6.2-12.0); Monocyte# 0.57 X10^3/uL; Monocyte% 6.2 % (0-10); NRBC Flagged by Analyzer 0 % (0-5); Neutrophil # 6.68 X10^3/uL (2.7-7.7); Neutrophil % 72.8 % (47-70); Platelet Count 179 K/mm3 (150-450); RBC Distribution Width CV 12.9 % (11.6-14.6); RBC Distribution Width SD 43.1 fl (35.1-43.9); White Blood Count 9.2 K/mm3 (4.4-11.0)
[2019-06-21] MEDS: 0.9% Normal Saline 1,000 ML 15 ML IV (03:38)
[2019-06-21 03:52] LABS: Anion Gap 7 (5-15); BUN 23 mg/dL (7-18); BUN/Creat Ratio 15.8 RATIO (10-20); Calcium,Total 7.9 mg/dL (8.5-10.1); Chloride 109 mmol/L (98-107); Creatinine, Serum 1.46 mg/dL (0.55-1.02); EST Glomerular Filtration Rate 37 mL/min (>60); Est Glom Filt Rate - Afr Amer 45 mL/min (>60); Glucose 224 mg/dL (74-106); Potassium 3.6 mmol/L (3.5-5.1); Sodium Level 143 mmol/L (136-145)
[2019-06-21] MEDS: Ceftriaxone 1 GM/50 ML BAG IV (03:55)
--- NOTE | 2019-06-21 03:57 | CT_ITS ---
STUDY: CTA CHEST REASON FOR EXAM: Female, 73 years old. Dyspnea RADIATION DOSAGE (If Supplied By Facility): CTDIvol = ( 12.67 ) mGy, DLP = ( 559.14 ) mGycm TECHNIQUE: The examination was performed with the intravenous administration of 100 ml Isovue 370. Post-processing of the angiographic images was performed, with multiplanar reformation and 3D reconstruction. Individualized dose optimization techniques were used for this CT. COMPARISON: None. FINDINGS: Normal enhancement of the main pulmonary artery and right and left pulmonary arteries. Normal enhancement of the bilateral peripheral pulmonary arteries. There is no demonstrated pulmonary embolism. Normal thoracic aorta and visualized great vessels. There is no demonstrated aortic dissection. Normal heart and pericardium. Normal mediastinum. Normal hilar regions. Normal visualized trachea and bronchi. The lungs are underexpanded. There is diffuse interstitial thickening in both lungs more prominent in the lung bases consistent with pulmonary edema. Ill-defined airspace opacities are seen in the left lower lobe suggesting pneumonia. Moderate size bilateral pleural effusions Normal chest wall structures. There are degenerative changes of thoracic spine. There is an 8 mm stone in the right kidney without hydronephrosis. CT/CTA Chest W/WO Contrast IMPRESSION: No demonstrated pulmonary embolism or arterial dissection. Congestive heart failure. Probable superimposed pneumonia in the left lower lobe. Electronically Signed: Yolette Caputo, at 5:07 EST Tel , Service support ,
[2019-06-21 04:20] LABS: Lactic Acid 1.3 mmol/L (0.4-1.9)
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
--- NOTE | 2019-06-21 06:20 | ECHOD_ITS ---
Reason For Study: SOB Procedure This was a 2D Doppler, Color Flow transthoracic echocardiogram. Exam performed portable in patient room. Left Ventricle Normal LV size. Left ventricular systolic function is normal. The estimated ejection fraction is 60 %. Stage 2 diastolic dysfunction. No regional wall motion abnormalities noted. Right Ventricle Normal RV size. Normal systolic function. Atria The left atrium is mildly enlarged. Normal right atrium. Mitral Valve Bileaflet diffuse mitral valve thickening. Mild-Moderate (1-2+) eccentric mitral valve insufficiency. Tricuspid Valve Normal tricuspid valve. Mild (1+) tricuspid valve insufficiency. Pulmonary artery systolic pressure is 40 mmHg. Aortic Valve Normal aortic valve. Pulmonic Valve Normal pulmonic valve. Great Vessels Normal aortic root. The pulmonary artery is normal size. Normal inferior vena cava. Pericardium/Pleural No pericardial effusion. MMode/2D Measurements & Calculations LVIDd: 4.5 cm IVSd: 1.2 cm Ao root diam: 2.6 cm LVIDs: 3.1 cm LVPWd: 1.1 cm RVDd: 3.2 cm FS: 31.1 % LAV(MOD-bp): 72.9 ml LVAd ap4: 25.9 cm2 SV(MOD-sp4): 48.6 ml LAV(MOD-bp) Indexed: 40.0 ml/m2 EDV(MOD-sp4): 73.1 ml LAV(MOD-sp2): 85.1 ml EDV(sp4-el): 74.8 ml LAV(MOD-sp4): 63.3 ml LVAs ap4: 13.2 cm2 ESV(MOD-sp4): 24.5 ml ESV(sp4-el): 24.6 ml EF(MOD-sp4): 66.5 % EF(sp4-el): 67.1 % SV(sp4-el): 50.2 ml LA A4 area: 20.6 cm2 LA dimension(2D): 4.7 cm RA A4 area: 13.3 cm2 Doppler Measurements & Calculations MV E max moe: 99.7 cm/sec Lat Peak E' Moe: 7.0 cm/sec Med Peak E' Moe: 5.2 cm/sec MV A max moe: 88.3 cm/sec E/E' lat: 14.2 E/E' med: 19.3 MV E/A: 1.1 Ao V2 max: 159.2 cm/sec LV V1 max: 114.7 cm/sec PA V2 max: 114.6 cm/sec Ao max P.1 mmHg LV V1 max P.3 mmHg Ao V2 mean: 105.2 cm/sec Ao mean P.0 mmHg Ao V2 VTI: 33.6 cm PI end-d moe: 130.0 cm/sec TR max moe: 303.4 cm/sec TR max P.8 mmHg Interpretation Summary Normal LV size. Left ventricular systolic function is normal. The left atrium is mildly enlarged. Mild-Moderate (1-2+) eccentric mitral valve insufficiency. Mild (1+) tricuspid valve insufficiency. The estimated ejection fraction is 60 %. Stage 2 diastolic dysfunction. Compared to previous study, the left ventricular systolic function is the same.. Ordering Physician: Farhat Ray Referring Physician: Bailey Toribio Performed By: Kassy Rudolph, RDMARANDA, RVT
[2019-06-21 07:05] LABS: Albumin, Serum 2.9 g/dL (3.2-5.0)
[2019-06-21 07:30] LABS: Bedside Glucose 300 mg/dL (70-110)
[2019-06-21] MEDS: Insulin Lispro 100 UNIT/ML INSULN.PEN SC ×4 (07:49→11:59)
[2019-06-21] MEDS: Isosorbide Mononitrate 30 MG Tablet PO (07:50)
[2019-06-21] MEDS: Loratadine 10 MG Tablet PO (07:50)
[2019-06-21] MEDS: Enoxaparin 30 MG/0.3 ML Syringe SC (07:50)
[2019-06-21] MEDS: Gabapentin 100 MG Capsule PO ×2 (07:50→21:53)
[2019-06-21] MEDS: Pantoprazole Sodium 40 MG Tablet PO (07:51)
[2019-06-21] MEDS: Fluticasone 0.05% 1 SPRAY NASAL.SRY 2 SPRAY NASAL (10:30)
--- NOTE | 2019-06-21 11:56 | CASEMGMT ---
RN CM Readmission Note Previous Admission: 06/10-06/11/19 DX: pneumonia DC Disposition: Home DC F/U appt: made for 06.14.19. 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 Current Admission Dx: Community Acquired Pneumonia Pt admitted from Home. See CM notes from 06/11/19 for RN CM assessment. Pt currently on 2L LEV. Rangel WEIRN RN ACM
[2019-06-21 12:05] LABS: Bedside Glucose 171 mg/dL (70-110)
[2019-06-21] MEDS: Acetaminophen 325 MG Tablet 650 MG PO (12:11)
--- NOTE | 2019-06-21 12:31 | PCM.PN.HOSP ---
Patient Problems: Active and Suspected Problems Pneumonia (Acute) Community acquired pneumonia (Acute) Subjective: Patient seen and examined. She was admitted with a complaint of shortness of breath which started the day before presentation with associated fever but no chills. She also had fatigue and weakness and bilateral lower extremity swelling as well as chest pain. She had been recently admitted on 06/10/2019 for community-acquired pneumonia and discharged on 06/11/2019 but symptoms are persistent. She is being managed for community-acquired pneumonia. Patient still lethargic and complains of chest pain, which is similar to pain she came in with. She denies any lightheadedness or dizziness, palpitations, and shortness of breath had improved. Review of systems is otherwise negative. Labs and vitals reviewed. Creatinine was 1.46 on admission. No leukocytosis initial troponin was negative. Hemoglobin is 9.8, with a baseline of around 10-11. He of the chest was negative for PE and showed just of heart failure and probable superimposed pneumonia in the left lower lobe. Vitals/I&O's: Vital Signs Temp Pulse Resp BP Pulse Ox 98.0 F 75 18 149/66 H 100 06/21/19 12:04 06/21/19 12:04 06/21/19 12:04 06/21/19 12:04 06/21/19 12:04 Oxygen Flow Rate (L/min) 2 Oxygen Delivery Method Nasal Cannula Weight: 184 lb 4.903 oz Body Mass Index (BMI) 34.8 Finger Stick Blood Glucose 383 Intake and Output for Last 24 Hours 06/19/19 06/20/19 06/21/19 23:59 23:59 23:59 Intake Total 305 / 305 Balance 305 / 305 General: Alert, Oriented x3, Cooperative, No apparent distress HEENT: Atraumatic, PERRLA, EOMI, Normocephalic Oral: Moist Mucosa Neck: Supple, No JVD, Negative Carotid Bruits Lungs: - - decreased breath sounds bibasally, no wheezes or crackles. On 2L of oxygen. Cardiovascular: Regular rate, Regular Rhythm, Normal S1, Normal S2, No murmurs Abdomen: Bowel Sounds Present, Soft, Non Tender, Non-Distended, No Hepato-splenomegaly Extremities: No clubbing, No cyanosis, No edema, Capillary Refill Less than 3 Seconds Skin: No rashes, No breakdown Musculoskeletal: No Tenderness to Palpation of Joints or Extremities Lymphatic: No Cervical, Supraclavicular, or Inguinal Adenopathy Neurological: Cranial nerves II-XII grossly intact, Neuro grossly intact, Motor Exam 5/5 strength throughout Psych/Mental Status: Normal Affect, Appropriate, - - lethargic, Alert and oriented to time, place, person, mood and affect Microbiology Past 72 Hours 06/21/19 08:00 Mucosa - Nose Influenza Types A,B Direct FA (ANTONIO) - Final Laboratory Results 06/21/19 03:20: WBC 9.2, RBC 3.10 L, Hgb 9.8 L, Hct 28.6 L, MCV 92.3, MCH 31.6, MCHC 34.3, RDW Std Deviation 43.1, RDW Coeff of Kusum 12.9, Plt Count 179, MPV 10.1, Immature Gran % (Auto) 0.300, Neut % (Auto) 72.8 H, Lymph % (Auto) 18.4 L, [place] % (Auto) 6.2, Eos % (Auto) 1.6, Baso % (Auto) 0.7, Absolute Neuts (auto) 6.7, Absolute Lymphs (auto) 1.69, Nucleated RBC % 0 06/21/19 03:20: Sodium 143, Potassium 3.6, Chloride 109 H, Carbon Dioxide 27.0, Anion Gap 7, BUN 23 H, Creatinine 1.46 H, Estim Creat Clear Calc 25.90, Est GFR (MDRD) Af Amer 45 L, Est GFR (MDRD) Non-Af 37 L, BUN/Creatinine Ratio 15.8, Glucose 224 H, Calcium 7.9 L, Troponin I < 0.015 06/21/19 03:20: Albumin 2.9 L 06/21/19 03:50: Lactic Acid 1.3 06/21/19 07:26: POC Glucose 300 H 06/21/19 07:34: Mycoplasma pneumon IgG Pending, Mycoplasma pneumon IgM Pending 06/21/19 07:34: Troponin I 0.029 06/21/19 10:31: Troponin I 0.029 06/21/19 11:56: POC Glucose 171 H Diagnostic Data Chest X-Ray 06/21/19 03:25 IMPRESSION: Ill-defined opacities are seen in the right and left lung bases suggesting bilateral pneumonia. There has been no significant change since earlier study. Electronically Signed: Yolette Caputo, at 4:11 EST Tel , Service support , Chest CTA 06/21/19 03:57 IMPRESSION: No demonstrated pulmonary embolism or arterial dissection. Congestive heart failure. Probable superimposed pneumonia in the left lower lobe. Electronically Signed: Yolette Caputo, at 5:07 EST Tel , Service support , Current Medications Acetaminophen (Tylenol) 650 mg PO Q4H PRN PRN PRN Reason: Pain Score 1-10 Last Admin: 06/21/19 12:11 Dose: 650 mg Documented by: Albuterol Sulfate (Ventolin Aerosols) 2.5 mg INHALATION Q2H PRN PRN Reason: sob/wheezing Atorvastatin Calcium (Lipitor) 10 mg PO QHS [facility] Enoxaparin Sodium (Lovenox) 30 mg SC DAILY [facility] Last Admin: 06/21/19 07:50 Dose: 30 mg Documented by: Fluticasone Propionate (Flonase Nasal [place]) 2 spray NASAL DAILY [facility] Last Admin: 06/21/19 10:30 Dose: 2 sprays Documented by: Gabapentin (Neurontin) 100 mg PO BID [facility] Last Admin: 06/21/19 07:50 Dose: 100 mg Documented by: Glucagon () 1 mg IM .X1 PRN PRN Reason: Hypoglycemia Guaifenesin (Robitussin) 10 ml PO Q4H PRN PRN PRN Reason: COUGH Hydralazine HCl (Apresoline Iv) 10 mg IV Q4H PRN PRN PRN Reason: SBP > 160 Azithromycin 500 mg/ Dextrose 255 mls @ 250 mls/hr IV Q24H [facility] Stop: 06/23/19 23:02 Ceftriaxone Sodium 2 gm/ (Sodium Chloride) 50 mls @ 100 mls/hr IV Q24H [facility] Dextrose (Dextrose 10%-Water) 250 mls @ 999 mls/hr IV .Q16M PRN; Protocol PRN Reason: HYPOGLYCEMIA Sodium Chloride () 250 mls @ 15 mls/hr IV .[id number] PRN PRN Reason: Saline Flush Sodium Chloride () 250 mls @ 15 mls/hr IV .[id number] PRN PRN Reason: Additional IVPB Infusion Insulin Glargine (Lantus (Bkc)) 18 units SC QHS CLYDE Insulin Human Lispro (Humalog Kwikpen (Bkc)) 0 unit SC ACHS [facility]; Protocol Last Admin: 06/21/19 11:59 Dose: 2 units Documented by: Insulin Human Lispro (Humalog Kwikpen (Bkc)) 4 unit SC TIDCM [facility] Last Admin: 06/21/19 11:59 Dose: 4 units Documented by: Isosorbide Mononitrate (Imdur) 30 mg PO DAILY [facility] Last Admin: 06/21/19 07:50 Dose: 30 mg Documented by: Latanoprost (Xalatan Opthalmic) 1 drop EACH EYE QHS [facility] Loratadine (Claritin) 10 mg PO DAILY [facility] Last Admin: 06/21/19 07:50 Dose: 10 mg Documented by: Morphine Sulfate () 2 mg IV Q3H PRN PRN PRN Reason: Pain Score 6-10/10 Oxycodone HCl (Oxyir) 5 mg PO Q4H PRN PRN PRN Reason: Pain Score 4-5/10 Pantoprazole Sodium (Protonix) 40 mg PO DAILY [facility] Last Admin: 06/21/19 07:51 Dose: 40 mg Documented by: Sodium Chloride () 10 - 40 ml IV UD PRN PRN Reason: SALINE FLUSH STROKE Vital Signs/Narrative: Vital Signs Temp Pulse Resp BP Pulse Ox 06/21/19 12:04 98.0 F 75 18 149/66 H 100 Medical Necessity - Tobacco Use Smoking Status: Former smoker Assessment/Plan All Active Problems Concussion (Resolved) CAP (community acquired pneumonia) (Acute) Pneumonia (Acute) Community acquired pneumonia (Acute) 1. Community acquired pneumonia WBC was 9.2. Chest x-ray showed ill-defined bilateral opacities suggestive of bilateral pneumonia. CTA was done which was negative for PE but showed diffuse interstitial thickening in both lungs more prominent in the lung bases consistent with pulmonary edema and ill-defined airspace opacities noted in the left lower lobe suggesting pneumonia. Currently on IV ceftriaxone and azithromycin. Will check BNP to rule out heart failure Urine for strep and Legionella are pending. Respiratory panel also pending. 2D echo: EF of 60% with normal left ventricular function and stage II diastolic dysfunction. No regional wall motion abnormalities noted. RVSP is 40 mmHg. Titrate oxygen to maintain saturation above 90%. 2. DEBBIE: Baseline creatinine is around 0.86 from June 2018. Fluids on hold. Lisinopril on hold. 2D echo pending. 3. Hypertensive urgency Pressure was in the 200s on admission. Was given IV labetalol in the ED and is currently on Imdur. On hydralazine PRN. lisinopril on hold on account of DEBBIE. Blood pressure down to the 140s and 150s systolic. 4. Diabetes mellitus: Has associated peripheral neuropathy. Insulin sliding scale. Accu-Cheks AC at bedtime. On Lantus 18 units at home. Was started on Lantus 9 units on admission. 5. ELENITA: On CPAP. 6. Anemia Hemoglobin is 9.8. Baseline is around 10-11. Will check iron panel. DVT prophylaxis: Lovenox-renally dosed.. Code Visit Inpatient E&M: 98684 Subs Hosp L2
[2019-06-21 13:31] LABS: BNP,B-Type NATRIURETIC PEPTIDE 291.2 pg/mL (0-100)
[2019-06-21 14:51] LABS: Bedside Glucose 90 mg/dL (70-110)
--- NOTE | 2019-06-21 15:04 | EKG12_ITS ---
Test Reason : RHYTHM Blood Pressure : / mmHG Vent. Rate : 073 BPM Atrial Rate : 073 BPM P-R Int : 132 ms QRS Dur : 082 ms QT Int : 412 ms P-R-T Axes : 042 026 022 degrees QTc Int : 453 ms Normal sinus rhythm Normal ECG When compared with ECG of 21-JUN-2019 03:17, MANUAL COMPARISON REQUIRED, DATA IS UNCONFIRMED Confirmed by DUTCH OBWMAN, ANTONIA ([id number]), sports editor JUAN NEELY ([id number]) on 06/25/2019 9:49:37 AM Referred By: SEAN Confirmed By:ANTONIA JUDD MD
--- NOTE | 2019-06-21 15:05 | NURSING ---
Respiratory notified EKG ordered for run of sinus tach.
[2019-06-21 17:21] LABS: Bedside Glucose 66 mg/dL (70-110)
[2019-06-21 17:21] LABS: Bedside Glucose 90 mg/dL (70-110)
[2019-06-21 17:21] LABS: Bedside Glucose 68 mg/dL (70-110)
[2019-06-21 18:15] LABS: Bedside Glucose 95 mg/dL (70-110)
[2019-06-21] MEDS: 0.9% Saline Lock 10 ML Syringe IV (21:40)
[2019-06-21] MEDS: Atorvastatin Calcium 10 MG Tablet PO (21:53)
[2019-06-21] MEDS: Latanoprost 0.005% 1 Bottle 1 DRP EACH EYE (22:54)
[2019-06-21 22:56] LABS: Bedside Glucose 149 mg/dL (70-110)
[2019-06-21 23:02] LABS: M R Staph aureus DNA By PCR Negative (Negative); Probe Check PASS; Specimen Processing Control PASS
[2019-06-22] VITALS (15 sets, daily range): BP systolic 154–186; BP diastolic 73–79; PULSE 83–95; RESP 18–20; TEMP 36.6–37.2; O2SAT 86–97
--- NOTE | 2019-06-22 06:05 | CPS ---
Pt. doesn't wish to try wearing BiPAP
[2019-06-22 07:28] LABS: Absolute Lymphocyte Count 1.11 X10^3/uL (0.83-4.51); Absolute Neutrophil Count 9.3 X10^3/uL (2.0-7.7); Basophil# 0.07 X10^3/uL; Basophil% 0.6 % (0-1); Eosinophil# 0.16 X10^3/uL; Eosinophils% 1.4 % (0-5); Lymphocyte # 1.11 X10^3/ul (4.0); Lymphocyte % 9.7 % (19-41); Mean Corp Hgb Conc 32.1 g/dL (32-36); Mean Corpuscular Hgb 30.4 pg (27.0-32.0); Mean Corpuscular Volume 94.6 fL (81-99); Mean Platelet Vol. 10.4 fl (6.2-12.0); Monocyte# 0.72 X10^3/uL; Monocyte% 6.3 % (0-10); NRBC Flagged by Analyzer 0 % (0-5); Neutrophil # 9.33 X10^3/uL (2.7-7.7); Neutrophil % 81.5 % (47-70); Platelet Count 168 K/mm3 (150-450); RBC Distribution Width CV 12.9 % (11.6-14.6); RBC Distribution Width SD 44.1 fl (35.1-43.9); Red Blood Count 2.96 M/mm3 (4.2-5.4); White Blood Count 11.5 K/mm3 (4.4-11.0)
[2019-06-22 07:54] LABS: Anion Gap 7 (5-15); BUN 26 mg/dL (7-18); BUN/Creat Ratio 16.5 RATIO (10-20); Chloride 108 mmol/L (98-107); Creatinine, Serum 1.58 mg/dL (0.55-1.02); EST Glomerular Filtration Rate 34 mL/min (>60); Est Glom Filt Rate - Afr Amer 41 mL/min (>60); Estimated Creatinine Clearance 23.93 ml/min; Glucose 176 mg/dL (74-106); Sodium Level 140 mmol/L (136-145)
[2019-06-22] MEDS: Loratadine 10 MG Tablet PO (08:27)
[2019-06-22] MEDS: Enoxaparin 30 MG/0.3 ML Syringe SC (08:27)
[2019-06-22] MEDS: Fluticasone 0.05% 1 SPRAY NASAL.SRY 2 SPRAY NASAL (08:27)
[2019-06-22] MEDS: Pantoprazole Sodium 40 MG Tablet PO (08:27)
[2019-06-22] MEDS: Insulin Lispro 100 UNIT/ML INSULN.PEN SC ×5 (08:27→21:36)
[2019-06-22] MEDS: Isosorbide Mononitrate 30 MG Tablet PO (08:27)
[2019-06-22] MEDS: Gabapentin 100 MG Capsule PO ×2 (08:27→21:11)
[2019-06-22] MEDS: Acetaminophen 325 MG Tablet 650 MG PO ×2 (10:11→17:02)
[2019-06-22 10:56] LABS: Bedside Glucose 181 mg/dL (70-110)
[2019-06-22 13:51] LABS: Bedside Glucose 149 mg/dL (70-110)
--- NOTE | 2019-06-22 13:51 | PN_ITS ---
Patient Problems: Active and Suspected Problems Pneumonia (Acute) Community acquired pneumonia (Acute) Subjective: Patient seen and examined. She still feels weak today. She says shortness of breath is improving. She denies any fever, chills, cough, chest pain, palpitations, dizziness, diarrhea or vomiting. Review of systems is otherwise negative. BC has trended up slightly to 11.5. Creatinine is also trended up to 1.58. Vitals/I&O's: Vital Signs Temp Pulse Resp BP Pulse Ox 98.1 F 90 20 H 178/74 H 92 06/22/19 08:42 06/22/19 08:42 06/22/19 08:42 06/22/19 08:42 06/22/19 08:42 Oxygen Flow Rate (L/min) 2 Oxygen Delivery Method Room Air Weight: 184 lb 4.903 oz Body Mass Index (BMI) 34.8 Finger Stick Blood Glucose 383 Intake and Output for Last 24 Hours 06/20/19 06/21/19 06/22/19 23:59 23:59 23:59 Intake Total 710 / 710 908.75 / 908.75 Balance 710 / 710 908.75 / 908.75 General: Alert, Oriented x3, Cooperative, No apparent distress HEENT: Atraumatic, PERRLA, EOMI, Normocephalic Oral: Moist Mucosa Neck: Supple, No JVD, Negative Carotid Bruits Lungs: - - decreased breath sounds bibasally, no wheezes or crackles. On 2L of oxygen. Cardiovascular: Regular rate, Regular Rhythm, Normal S1, Normal S2, No murmurs Abdomen: Bowel Sounds Present, Soft, Non Tender, Non-Distended, No Hepato- splenomegaly Extremities: No clubbing, No cyanosis, No edema, Capillary Refill Less than 3 Seconds Skin: No rashes, No breakdown Musculoskeletal: No Tenderness to Palpation of Joints or Extremities Lymphatic: No Cervical, Supraclavicular, or Inguinal Adenopathy Neurological: Cranial nerves II-XII grossly intact, Neuro grossly intact, Motor Exam 5/5 strength throughout Psych/Mental Status: Normal Affect, Appropriate, - - lethargic, Alert and oriented to time, place, person, mood and affect Microbiology Past 72 Hours 06/21/19 11:38 Urine, Clean Catch Legionella Antigen - Final 06/21/19 11:38 Urine, Clean Catch Streptococcus pneumoniae Antigen (M - Final 06/21/19 08:00 Mucosa - Nose Influenza Types A,B Direct FA (ANTONIO) - Final Laboratory Results 06/21/19 13:37: Troponin I 0.020 06/21/19 14:44: POC Glucose 90 06/21/19 16:12: POC Glucose 68 L 06/21/19 16:47: POC Glucose 66 L 06/21/19 17:16: POC Glucose 90 06/21/19 18:01: POC Glucose 95 06/21/19 21:45: MRSA (PCR) Negative 06/21/19 21:45: POC Glucose 149 H 06/22/19 06:53: WBC 11.5 H, RBC 2.96 L, Hgb 9.0 L, Hct 28.0 L, MCV 94.6, MCH 30.4, MCHC 32.1, RDW Std Deviation 44.1 H, RDW Coeff of [place] 12.9, Plt Count 168, MPV 10.4, Immature Gran % (Auto) 0.500, Neut % (Auto) 81.5 H, Lymph % (Auto) 9.7 L, [place] % (Auto) 6.3, Eos % (Auto) 1.4, Baso % (Auto) 0.6, Absolute Neuts (auto) 9.3 H, Absolute Lymphs (auto) 1.11, Nucleated RBC % 0 06/22/19 06:53: Sodium 140, Potassium 4.0, Chloride 108 H, Carbon Dioxide 25.0, Anion Gap 7, BUN 26 H, Creatinine 1.58 H, Estim Creat Clear Calc 23.93, Est GFR (MDRD) Af Amer 41 L, Est GFR (MDRD) Non-Af 34 L, BUN/Creatinine Ratio 16.5, Glucose 176 H, Calcium 8.0 L 06/22/19 08:20: POC Glucose 181 H 06/22/19 11:39: POC Glucose 149 H Diagnostic Data Chest X-Ray 06/21/19 03:25 IMPRESSION: Ill-defined opacities are seen in the right and left lung bases suggesting bilateral pneumonia. There has been no significant change since earlier study. Electronically Signed: Yolette Captuo, at 4:11 EST Tel , Service support , Chest CTA 06/21/19 03:57 IMPRESSION: No demonstrated pulmonary embolism or arterial dissection. Congestive heart failure. Probable superimposed pneumonia in the left lower lobe. Electronically Signed: Yolette Caputo, at 5:07 EST Tel , Service support , Current Medications Acetaminophen (Tylenol) 650 mg PO Q4H PRN PRN PRN Reason: Pain Score 1-10/10 Last Admin: 06/22/19 10:11 Dose: 650 mg Documented by: Albuterol Sulfate (Ventolin Aerosols) 2.5 mg INHALATION Q2H PRN PRN Reason: sob/wheezing Atorvastatin Calcium (Lipitor) 10 mg PO QHS [facility] Last Admin: 06/21/19 21:53 Dose: 10 mg Documented by: Enoxaparin Sodium (Lovenox) 30 mg SC DAILY [facility] Last Admin: 06/22/19 08:27 Dose: 30 mg Documented by: Fluticasone Propionate (Flonase Nasal [place]) 2 spray NASAL DAILY [facility] Last Admin: 06/22/19 08:27 Dose: 2 sprays Documented by: Gabapentin (Neurontin) 100 mg PO BID [facility] Last Admin: 06/22/19 08:27 Dose: 100 mg Documented by: Glucagon () 1 mg IM .X1 PRN PRN Reason: Hypoglycemia Guaifenesin (Robitussin) 10 ml PO Q4H PRN PRN PRN Reason: COUGH Hydralazine HCl (Apresoline Iv) 10 mg IV Q4H PRN PRN PRN Reason: SBP > 160 Azithromycin 500 mg/ Dextrose 255 mls @ 250 mls/hr IV Q24H [facility] Stop: 06/23/19 23:02 Last Infusion: 06/21/19 22:41 Dose: Infused Documented by: Ceftriaxone Sodium 2 gm/ (Sodium Chloride) 50 mls @ 100 mls/hr IV Q24H [facility] Last Infusion: 06/21/19 23:26 Dose: Infused Documented by: Dextrose (Dextrose 10%-Water) 250 mls @ 999 mls/hr IV .Q16M PRN; Protocol PRN Reason: HYPOGLYCEMIA Sodium Chloride () 250 mls @ 15 mls/hr IV .[id number] PRN PRN Reason: Saline Flush Sodium Chloride () 250 mls @ 15 mls/hr IV .[id number] PRN PRN Reason: Additional IVPB Infusion Insulin Glargine (Lantus (Bk)) 18 units SC QHS [facility] Last Admin: 06/21/19 21:54 Dose: Not Given Documented by: Insulin Human Lispro (Humalog Kwikpen ([facility])) 0 unit SC ACHS [facility]; Protocol Last Admin: 06/22/19 13:39 Dose: Not Given Documented by: Insulin Human Lispro (Humalog Kwikpen ([facility])) 4 unit SC TIDCM [facility] Last Admin: 06/22/19 13:40 Dose: 4 units Documented by: Isosorbide Mononitrate (Imdur) 30 mg PO DAILY [facility] Last Admin: 06/22/19 08:27 Dose: 30 mg Documented by: Latanoprost (Xalatan Opthalmic) 1 drop EACH EYE QHS [facility] Last Admin: 06/21/19 22:54 Dose: 1 drop Documented by: Loratadine (Claritin) 10 mg PO DAILY [facility] Last Admin: 06/22/19 08:27 Dose: 10 mg Documented by: Morphine Sulfate () 2 mg IV Q3H PRN PRN PRN Reason: Pain Score 6-10/10 Oxycodone HCl (Oxyir) 5 mg PO Q4H PRN PRN PRN Reason: Pain Score 4-5/10 Pantoprazole Sodium (Protonix) 40 mg PO DAILY [facility] Last Admin: 06/22/19 08:27 Dose: 40 mg Documented by: Sodium Chloride () 10 - 40 ml IV UD PRN PRN Reason: SALINE FLUSH Last Admin: 06/21/19 21:40 Dose: 10 ml Documented by: Medical Necessity - Tobacco Use Smoking Status: Former smoker Assessment/Plan All Active Problems Concussion (Resolved) CAP (community acquired pneumonia) (Acute) Pneumonia (Acute) Community acquired pneumonia (Acute) 1. Community acquired pneumonia * wbc gone up to 11.5 today * on IV ceftriaxone and azithromycin * BNP elevated mildly at 291.2 * urine for strep and Legionella were negative * influenza screen was negative * blood cultures pending * 2D echo: EF of 60% with normal left ventricular function and stage II diastolic dysfunction. No regional wall motion abnormalities noted. RVSP is 40 mmHg. * Titrate oxygen to maintain saturation above 90%. * 2. DEBBIE: * Baseline creatinine is around 0.86 from June 2018. * Cr is 1.589 today * will diurese gently as BNP is up at 291, so cannot be aggressive with IVF * 3. Hypertensive urgency' * resolved. BP is in the 170s this morning * on imdur and hydralazine prn * lisinopril on hold * will start low dose amlodipine * 4. Diabetes mellitus: * Has associated peripheral neuropathy. * Insulin sliding scale. Accu-Cheks AC at bedtime. * On Lantus 18 units at home. Was started on Lantus 9 units on admission. * 5. ELENITA: On CPAP. 6. Anemia * Hemoglobin is 9 today. Baseline is around 10-11. * does have a history of anemia * Will check iron panel. DVT prophylaxis: Lovenox-renally dosed.. Dispostion: for DC home tomorrow morning. Code Visit Inpatient E&M: [id number] Subs Hosp L2
[2019-06-22 14:24] LABS: Ferritin 126 ng/mL (8-252); Iron 19 ug/dL (50-170); Iron Binding Capacity,Total 242 ug/dL (250-450); PERCENT IRON SATURATION 7.9 % (15.0-55.0)
[2019-06-22] MEDS: Furosemide 40 MG/4 ML Vial IV (15:10)
[2019-06-22] MEDS: 0.9% Saline Lock 10 ML Syringe IV ×3 (15:11→21:29)
[2019-06-22 17:16] LABS: Bedside Glucose 133 mg/dL (70-110)
[2019-06-22] MEDS: Latanoprost 0.005% 1 Bottle 1 DRP EACH EYE (21:09)
[2019-06-22] MEDS: Atorvastatin Calcium 10 MG Tablet PO (21:10)
[2019-06-22] MEDS: hydrALAZINE 20 MG/ML Vial 10 MG IV (21:25)
[2019-06-23] VITALS (16 sets, daily range): BP systolic 156–195; BP diastolic 75–91; PULSE 84–96; RESP 16–20; TEMP 36.6–37.6; O2SAT 93–98
[2019-06-23 00:16] LABS: Bedside Glucose 194 mg/dL (70-110)
[2019-06-23] MEDS: 0.9% Saline Lock 10 ML Syringe IV (01:42)
[2019-06-23] MEDS: Acetaminophen 325 MG Tablet 650 MG PO (01:49)
[2019-06-23 06:45] LABS: Absolute Lymphocyte Count 1.19 X10^3/uL (0.83-4.51); Absolute Neutrophil Count 7.9 X10^3/uL (2.0-7.7); Basophil# 0.04 X10^3/uL; Basophil% 0.4 % (0-1); Eosinophil# 0.09 X10^3/uL; Eosinophils% 0.9 % (0-5); Hematocrit 25.5 % (37-47); Hemoglobin 8.4 g/dL (12.0-15.0); Lymphocyte # 1.19 X10^3/ul (4.0); Mean Corp Hgb Conc 32.9 g/dL (32-36); Mean Corpuscular Hgb 30.7 pg (27.0-32.0); Mean Corpuscular Volume 93.1 fL (81-99); Mean Platelet Vol. 10.6 fl (6.2-12.0); Monocyte% 7.1 % (0-10); NRBC Flagged by Analyzer 0 % (0-5); Neutrophil # 7.85 X10^3/uL (2.7-7.7); Neutrophil % 79.1 % (47-70); Platelet Count 151 K/mm3 (150-450); RBC Distribution Width CV 12.7 % (11.6-14.6); RBC Distribution Width SD 42.6 fl (35.1-43.9); Red Blood Count 2.74 M/mm3 (4.2-5.4); White Blood Count 9.9 K/mm3 (4.4-11.0)
[2019-06-23 07:00] LABS: Anion Gap 7 (5-15); BUN 30 mg/dL (7-18); BUN/Creat Ratio 18.1 RATIO (10-20); Calcium,Total 8.3 mg/dL (8.5-10.1); Chloride 106 mmol/L (98-107); Creatinine, Serum 1.66 mg/dL (0.55-1.02); EST Glomerular Filtration Rate 32 mL/min (>60); Est Glom Filt Rate - Afr Amer 39 mL/min (>60); Estimated Creatinine Clearance 22.78 ml/min; Glucose 145 mg/dL (74-106); Potassium 3.7 mmol/L (3.5-5.1); Sodium Level 139 mmol/L (136-145)
[2019-06-23] MEDS: Insulin Lispro 100 UNIT/ML INSULN.PEN SC ×3 (08:11→11:38)
[2019-06-23 08:31] LABS: Bedside Glucose 118 mg/dL (70-110)
[2019-06-23 10:16] LABS: Ferritin 139 ng/mL (8-252); Iron Binding Capacity,Total 204 ug/dL (250-450)
[2019-06-23] MEDS: Loratadine 10 MG Tablet PO (10:36)
[2019-06-23] MEDS: Gabapentin 100 MG Capsule PO (10:36)
[2019-06-23] MEDS: Isosorbide Mononitrate 30 MG Tablet PO (10:36)
[2019-06-23] MEDS: Pantoprazole Sodium 40 MG Tablet PO (10:36)
--- NOTE | 2019-06-23 10:58 | PCM.DC ---
- Discharge Diagnoses Current Active Problems: Current Active and Chronic Problems Pneumonia (Acute) Community acquired pneumonia (Acute) Reason(s) for Visit for Discharge Instructions: Pneumonia You will use the following diet at home:: Cardiac Your food should be the consistency of: Regular Your liquids should be the consistency of: Regular/Thin Discharge Activity: Return to Normal Activity Weight Bearing Status: Weight bearing as tolerated Additional Instructions: Complete your antibiotics as prescribed. Continue to use your inhaler as needed for SOB. You need to repeat your kidney function test within 1-2 weeks. Allergies/Adverse Reactions: Allergies ciprofloxacin [From Cipro] Allergy (Verified 06/10/19 21:14) Rash codeine Allergy (Verified 06/10/19 21:14) Shortness of breath Penicillins Allergy (Verified 06/10/19 21:14) Hives CILLINS Allergy (Uncoded 06/10/19 21:14) Unknown Medications to take at Discharge Isosorbide Mononitrate [Isosorbide Mononitrate ER] 30 mg PO DAILY 04/10/15 Atorvastatin Calcium 10 mg PO QHS 05/03/18 Fluticasone 0.05% [Flonase Nasal [place]] 2 spray [place] DAILY 05/03/18 Gabapentin [Neurontin] 200 mg PO BID 05/03/18 Latanoprost 0.005% [Xalatan Opthalmic] 1 drop EACH EYE QHS 05/03/18 Loratadine [Claritin] 10 mg PO DAILY 05/03/18 Pantoprazole Sodium [Protonix] 40 mg PO DAILY 05/03/18 Acetaminophen [Tylenol Tablet] 650 mg PO Q4H PRN PRN 06/17/18 Lisinopril 20 mg PO DAILY 06/21/18 Insulin Lispro [Humalog KwikPen] 9 unit SUBCUT TIDCM 06/10/19 Albuterol Inhaler [Ventolin Hfa] 1 - 2 puff INHALATION Q4H PRN PRN #1 inhaler 06/11/19 Guaifenesin [Mucinex] 1,200 mg PO BID #10 tab 06/11/19 Amoxicillin/Potassium Clav [Augmentin 500-125 Tablet] 1 ea PO BID #10 tab 06/23/19 Insulin Glargine [Lantus SoloStar Pen] 18 units SUBCUT QHS pen 06/23/19 The following prescriptions were given: Amoxicillin/Potassium Clav [Augmentin 500-125 Tablet] 1 ea PO BID #10 tab Transmission Status: Pending to [facility] Primary Care Physician: Bailey Toribio MD [Primary Care Provider] - Please follow up with your Primary Care Physician in: within 1-2 weeks Test Results: Test results from this visit will be discussed in further detail at your follow-up appointment, if applicable. Proposed Discharge Date: 06/23/19
--- NOTE | 2019-06-23 11:02 | DS.PCM_ITS ---
Discharge Date and Diagnosis - Problem List Patient Problems: Active and Suspected Problems Pneumonia (Acute) Community acquired pneumonia (Acute) Date of Admission: 06/21/19 Date of Discharge: 06/23/19 - Primary Discharge Diagnosis Active and Suspected Problems Pneumonia (Acute) Community acquired pneumonia (Acute) - Secondary Discharge Diagnosis Chronic Problems Seizure disorder (Chronic) Stroke (Chronic) Coronary artery disease (Chronic) Depression (Chronic) Bipolar disorder (Chronic) Multiple personality disorder (Chronic) Restless legs syndrome (Chronic) Rheumatoid arthritis (Chronic) Generalized anxiety disorder (Chronic) ELENITA on CPAP (Chronic) COPD (chronic obstructive pulmonary disease) (Chronic) Peripheral neuropathy (Chronic) Esophageal reflux (Chronic) Depressive disorder (Chronic) Personal history of Methicillin resistant Staphylococcus aureus infection (Chronic) Obesity (Chronic) Hypertension (Chronic) Diabetes type 2, uncontrolled (Chronic) Hyperglycemia (Chronic) Hyperlipidemia (Chronic) MRSA (Chronic) Cerebrovascular disease (Chronic) Status post acute ischemic stroke No residual deficit Diabetes mellitus (Chronic) Hospital Course and Treatment Imaging Results: Clinical Impression(s) from Imaging Studies Chest X-Ray 06/21/19 03:25 IMPRESSION: Ill-defined opacities are seen in the right and left lung bases suggesting bilateral pneumonia. There has been no significant change since earlier study. Electronically Signed: Yolette Caputo, at 4:11 EST Tel , Service support , Chest CTA 06/21/19 03:57 IMPRESSION: No demonstrated pulmonary embolism or arterial dissection. Congestive heart failure. Probable superimposed pneumonia in the left lower lobe. Electronically Signed: Yolette Caputo, at 5:07 EST Tel , Service support , None Operations: None Procedures: None Summary of Care Provided: The patient is a 73 year old F who was recently discharged on 06/11/19 with pneumonia comes in with progressive SOB. She was admitted and managed as bilateral pneumonia. She was started on IV azithromycin and ceftriaxone. Patient reported anaphylaxis history with penicillin but she was previously discharged on Keflex and was managed on IV ceftriaxone with no complaints here. Influenza screen was negative. Urine streptococcal and Legionella antigen were negative. Blood cultures are pending at time of discharge. Patient continued to improve and not require oxygen whilst in the hospital. She has been ambulating around the nurses station without any use of oxygen. Patient was discharged on 5 more days of Augmentin making a total 1 week treatment. Patient blood pressure was slightly elevated was in the hospital. Lisinopril was held because of fluctuations in her kidney function. She was restarted on her lisinopril. 2D echo done in the hospital showed EF of 60%, stage II diastolic dysfunction. Patient was discharged on low-dose Lasix 20 mg daily. She will follow-up with her primary care doctor and have repeat blood work done within a week. Patient Problems: Active and Suspected Problems Pneumonia (Acute) Community acquired pneumonia (Acute) Subjective: On the day of discharge, patient was seen and examined. Denied any new complaints. He has been ambulating around the nursing unit with no complaints. She is not on oxygen. Objective: Physical exam: General: Alert, Oriented x3, Cooperative, No apparent distress HEENT: Atraumatic, PERRLA, EOMI, Normocephalic Oral: Moist Mucosa Neck: Supple, No JVD, Negative Carotid Bruits Lungs: - - decreased breath sounds bibasally Cardiovascular: Regular rate, Regular Rhythm, Normal S1, Normal S2, No murmurs Abdomen: Bowel Sounds Present, Soft, Non Tender, Non-Distended, No Hepato- splenomegaly Extremities: No clubbing, No cyanosis, No edema, Capillary Refill Less than 3 Seconds Skin: No rashes, No breakdown Musculoskeletal: No Tenderness to Palpation of Joints or Extremities Lymphatic: No Cervical, Supraclavicular, or Inguinal Adenopathy Neurological: Cranial nerves II-XII grossly intact, Neuro grossly intact, Motor Exam 5/5 strength throughout Psych/Mental Status: Normal Affect, Appropriate, Alert and oriented to time, place, person, mood and affect - Physical Exam Vitals/I&O's: Vital Signs Temp Pulse Resp BP Pulse Ox 99.1 F 84 16 162/83 H 97 06/23/19 08:00 06/23/19 08:00 06/23/19 08:00 06/23/19 10:43 06/23/19 08:00 Oxygen Flow Rate (L/min) 2 Oxygen Delivery Method Room Air Weight: 83.6 kg Body Mass Index (BMI) 34.8 Finger Stick Blood Glucose 383 Intake and Output for Last 24 Hours 06/21/19 06/22/19 06/23/19 23:59 23:59 23:59 Intake Total 710 / 710 1358.75 / 1813.75 455 / 455 Output Total 1100 / 1300 500 / 500 Balance 710 / 710 258.75 / 513.75 -45 / -45 Microbiology Past 72 Hours 06/21/19 11:38 Urine, Clean Catch Legionella Antigen - Final 06/21/19 11:38 Urine, Clean Catch Streptococcus pneumoniae Antigen (M - Final 06/21/19 08:00 Mucosa - Nose Influenza Types A,B Direct FA (ANTONIO) - Final Laboratory Results 06/22/19 06:53: Iron 19 L, TIBC 242 L, Iron Saturation 7.9 L, Ferritin 126 06/22/19 11:39: POC Glucose 149 H 06/22/19 16:57: POC Glucose 133 H 06/22/19 21:35: POC Glucose 194 H 06/23/19 05:20: TIBC 204 L, Ferritin 139, Folate 17.00 06/23/19 05:20: Vitamin B12 Pending 06/23/19 05:40: WBC 9.9, RBC 2.74 L, Hgb 8.4 L, Hct 25.5 L, MCV 93.1, MCH 30.7, MCHC 32.9, RDW Std Deviation 42.6, RDW Coeff of Kusum 12.7, Plt Count 151, MPV 10.6, Immature Gran % (Auto) 0.500, Neut % (Auto) 79.1 H, Lymph % (Auto) 12.0 L, [place] % (Auto) 7.1, Eos % (Auto) 0.9, Baso % (Auto) 0.4, Absolute Neuts (auto) 7.9 H, Absolute Lymphs (auto) 1.19, Nucleated RBC % 0 06/23/19 05:40: Sodium 139, Potassium 3.7, Chloride 106, Carbon Dioxide 26.0, Anion Gap 7, BUN 30 H, Creatinine 1.66 H, Estim Creat Clear Calc 22.78, Est GFR (MDRD) Af Amer 39 L, Est GFR (MDRD) Non-Af 32 L, BUN/Creatinine Ratio 18.1, Glucose 145 H, Calcium 8.3 L 06/23/19 08:07: POC Glucose 118 H Current Medications Acetaminophen (Tylenol) 650 mg PO Q4H PRN PRN PRN Reason: Pain Score 1-10/10 Last Admin: 06/23/19 01:49 Dose: 650 mg Documented by: Albuterol Sulfate (Ventolin Aerosols) 2.5 mg INHALATION Q2H PRN PRN Reason: sob/wheezing Atorvastatin Calcium (Lipitor) 10 mg PO QHS COUNTS INCLUDE 234 BEDS AT THE [facility] Last Admin: 06/22/19 21:10 Dose: 10 mg Documented by: Enoxaparin Sodium (Lovenox) 30 mg SC DAILY COUNTS INCLUDE 234 BEDS AT THE [facility] Last Admin: 06/23/19 10:36 Dose: Not Given Documented by: Fluticasone Propionate (Flonase Nasal [place]) 2 spray NASAL DAILY COUNTS INCLUDE 234 BEDS AT THE [facility] Last Admin: 06/23/19 10:36 Dose: Not Given Documented by: Gabapentin (Neurontin) 100 mg PO BID COUNTS INCLUDE 234 BEDS AT THE [facility] Last Admin: 06/23/19 10:36 Dose: 100 mg Documented by: Glucagon () 1 mg IM .X1 PRN PRN Reason: Hypoglycemia Guaifenesin (Robitussin) 10 ml PO Q4H PRN PRN PRN Reason: COUGH Hydralazine HCl (Apresoline Iv) 10 mg IV Q4H PRN PRN PRN Reason: SBP > 160 Last Admin: 06/22/19 21:25 Dose: 10 mg Documented by: Azithromycin 500 mg/ Dextrose 255 mls @ 250 mls/hr IV Q24H COUNTS INCLUDE 234 BEDS AT THE [facility] Stop: 06/23/19 23:02 Last Infusion: 06/23/19 00:00 Dose: Infused Documented by: Ceftriaxone Sodium 2 gm/ (Sodium Chloride) 50 mls @ 100 mls/hr IV Q24H COUNTS INCLUDE 234 BEDS AT THE [facility] Last Infusion: 06/22/19 22:30 Dose: Infused Documented by: Dextrose (Dextrose 10%-Water) 250 mls @ 999 mls/hr IV .Q16M PRN; Protocol PRN Reason: HYPOGLYCEMIA Sodium Chloride () 250 mls @ 15 mls/hr IV .[id number] PRN PRN Reason: Saline Flush Sodium Chloride () 250 mls @ 15 mls/hr IV .[id number] PRN PRN Reason: Additional IVPB Infusion Insulin Glargine (Lantus ([facility])) 18 units SC QHS COUNTS INCLUDE 234 BEDS AT THE [facility] Last Admin: 06/22/19 21:40 Dose: 18 units Documented by: Insulin Human Lispro (Humalog Kwikpen ([facility])) 0 unit SC ACHS COUNTS INCLUDE 234 BEDS AT THE [facility]; Protocol Last Admin: 06/23/19 08:08 Dose: Not Given Documented by: Insulin Human Lispro (Humalog Kwikpen ([facility])) 4 unit SC TIDCM COUNTS INCLUDE 234 BEDS AT THE [facility] Last Admin: 06/23/19 08:11 Dose: 4 units Documented by: Isosorbide Mononitrate (Imdur) 30 mg PO DAILY COUNTS INCLUDE 234 BEDS AT THE [facility] Last Admin: 06/23/19 10:36 Dose: 30 mg Documented by: Labetalol HCl (Trandate) 10 mg IV Q4H PRN PRN PRN Reason: SBP > 160 Last Admin: 06/23/19 01:37 Dose: 10 mg Documented by: Latanoprost (Xalatan Opthalmic) 1 drop EACH EYE QHS COUNTS INCLUDE 234 BEDS AT THE [facility] Last Admin: 06/22/19 21:09 Dose: 1 drop Documented by: Lisinopril (Zestril) 20 mg PO DAILY COUNTS INCLUDE 234 BEDS AT THE [facility] Loratadine (Claritin) 10 mg PO DAILY COUNTS INCLUDE 234 BEDS AT THE [facility] Last Admin: 06/23/19 10:36 Dose: 10 mg Documented by: Morphine Sulfate () 2 mg IV Q3H PRN PRN PRN Reason: Pain Score 6-10/10 Oxycodone HCl (Oxyir) 5 mg PO Q4H PRN PRN PRN Reason: Pain Score 4-5/10 Pantoprazole Sodium (Protonix) 40 mg PO DAILY COUNTS INCLUDE 234 BEDS AT THE [facility] Last Admin: 06/23/19 10:36 Dose: 40 mg Documented by: Sodium Chloride () 10 - 40 ml IV UD PRN PRN Reason: SALINE FLUSH Last Admin: 06/23/19 01:42 Dose: 10 ml Documented by: Discharge Diet: Low fat/ Low Cholesterol, 2000 mg Sodium Diet, Carb Control Diet Discharge Activity: Return to Normal Activity Weight Bearing Status: Weight bearing as tolerated Home Medications: Medications to take at Discharge Isosorbide Mononitrate [Isosorbide Mononitrate ER] 30 mg PO DAILY 04/10/15 Atorvastatin Calcium 10 mg PO QHS 05/03/18 Fluticasone 0.05% [Flonase Nasal [place]] 2 spray NARES DAILY 05/03/18 Gabapentin [Neurontin] 200 mg PO BID 05/03/18 Latanoprost 0.005% [Xalatan Opthalmic] 1 drop EACH EYE QHS 05/03/18 Loratadine [Claritin] 10 mg PO DAILY 05/03/18 Pantoprazole Sodium [Protonix] 40 mg PO DAILY 05/03/18 Acetaminophen [Tylenol Tablet] 650 mg PO Q4H PRN PRN 06/17/18 Lisinopril 20 mg PO DAILY 06/21/18 Insulin Lispro [Humalog KwikPen] 9 unit SUBCUT TIDCM 06/10/19 Albuterol Inhaler [Ventolin Hfa] 1 - 2 puff INHALATION Q4H PRN PRN #1 inhaler 06/11/19 Guaifenesin [Mucinex] 1,200 mg PO BID #10 tab 06/11/19 Amoxicillin/Potassium Clav [Augmentin 500-125 Tablet] 1 ea PO BID #10 tab 06/23/19 Insulin Glargine [Lantus SoloStar Pen] 18 units SUBCUT QHS pen 06/23/19 Following Prescrptions Were Given to Patient: Amoxicillin/Potassium Clav [Augmentin 500-125 Tablet] 1 ea PO BID #10 tab Transmission Status: Received by [id number] Primary Care Physician: Bailey Toribio MD [Primary Care Provider] - Please follow up with your Primary Care Physician in: within 1-2 weeks Disposition: Home Minutes spent on discharge:: 40 Patient Condition:: Stable Medical Necessity - Tobacco Use Smoking Status: Former smoker Tobacco Use: Non-smoker Meaningful Use Info Meaningful Use Diagnoses (Choose all that apply): None applicable Code Visit Inpatient E&M: 09323 Disch Hosp
[2019-06-23] MEDS: Lisinopril 20 MG Tablet PO (11:34)
[2019-06-23 11:45] LABS: Bedside Glucose 203 mg/dL (70-110)
[2019-06-23 12:32] LABS: Hemoglobin 8.3 g/dL (12.0-15.0)
[2019-06-23] MEDS: amLODIPine 5 MG Tablet PO (17:23)
[2019-06-24 09:16] LABS: Vitamin B12 608 pg/mL (211-911)
[2019-06-25 00:34] LABS: Mycoplasma Pneum AB IgG < 100 U/mL (0-99); Mycoplasma pneum. AB IgM < 770 U/mL (0-769)
== END 2019-06-23 17:40 | disposition home or self-care (01) | DRG 194 ==
LOC: ED 05:10 → MS3 05:44
PROVIDERS: Student in an Organized Health Care Education/Training Program; Admitting Provider Hospitalist; Emergency Provider Emergency Medicine; Family Provider Internal Medicine; PCP Internal Medicine; Visit Provider Internal Medicine
DX: J18.9 Pneumonia, unspecified organism (principal); J44.0 Chronic obstructive pulmonary disease with (acute) lower respiratory infection; N17.9 Acute kidney failure, unspecified; I16.0 Hypertensive urgency; I10 Essential (primary) hypertension; G40.909 Epilepsy, unspecified, not intractable, without status epilepticus; F31.9 Bipolar disorder, unspecified; G25.81 Restless legs syndrome; K21.9 Gastro-esophageal reflux disease without esophagitis; E11.42 Type 2 diabetes mellitus with diabetic polyneuropathy; E83.51 Hypocalcemia; E78.5 Hyperlipidemia, unspecified; M06.9 Rheumatoid arthritis, unspecified; G47.33 Obstructive sleep apnea (adult) (pediatric); F41.1 Generalized anxiety disorder; I25.10 Atherosclerotic heart disease of native coronary artery without angina pectoris; E66.9 Obesity, unspecified; D64.9 Anemia, unspecified; F44.81 Dissociative identity disorder; Z68.34 Body mass index [BMI] 34.0-34.9, adult; Z87.891 Personal history of nicotine dependence; Z86.14 Personal history of Methicillin resistant Staphylococcus aureus infection; Z86.73 Personal history of transient ischemic attack (TIA), and cerebral infarction without residual deficits; Z79.4 Long term (current) use of insulin
CPT/HCPCS: 36415; 71045; 71275; 80048; 82040; 82607; 82728; 82746; 82962; 83540; 83550; 83605; 83880; 84484; 85014; 85018; 85025; 86738; 87040; 87449; 87641; 87804; 93005; 93306; 94640; 97110; 97116; 97162; 97166; 97530; 97535; 99251; 99285; J7030; Q9957; Q9967; A4216; G0463; J0696; J1940; J2405

== ENCOUNTER 2019-06-29 10:39 | Emergency (ER) | payer MEDICARE, SELFPAY ==
[2019-06-21 06:28] VITALS: BMI 34.8
[2019-06-29] VITALS (9 sets, daily range): BP systolic 145–188; BP diastolic 65–79; PULSE 78–96; RESP 17–27; TEMP 36.6–36.7; O2SAT 95–100; BMI 34.0
--- NOTE | 2019-06-29 11:03 | EKG12_ITS ---
Test Reason : DYSRHYTHMIA Blood Pressure : / mmHG Vent. Rate : 078 BPM Atrial Rate : 078 BPM P-R Int : 130 ms QRS Dur : 078 ms QT Int : 394 ms P-R-T Axes : 042 040 051 degrees QTc Int : 449 ms Normal sinus rhythm Normal ECG Confirmed by DUTCH BOWMAN, ANTONIA ([id number]), video editor RADHA TAPIA ([id number]) on 07/02/2019 9:58:51 AM Referred By: OTIS Confirmed By:ANTONIA JUDD MD
--- NOTE | 2019-06-29 11:12 | ED.VIS.GEN ---
History of Present Illness Chief Complaint: Shortness of Breath Detail of Chief Complaint: Diagnosed with pneumonia and admitted both times earlier this month. Informant: Patient, Significant Other Onset: Weeks Context: Sudden Onset Timing: Continuous Quality: Cough, wheezing and shortness of breath, chest pain and arm pain Location: Anterior left chest and left arm Current Severity: Moderate Maximum Severity: Severe Worsened by: Activity Relieved by: Nothing Associated Symptoms: Sharp left chest pain and left arm pain Narrative: Patient is an elderly woman who was seen twice this month and admitted for pneumonia. She had an echo which revealed diastolic dysfunction. EF was 70%. The echo was obtained because there was evidence of pulmonary congestion/pulmonary edema on CTA. She does have an infiltrate as well. She stopped smoking 4 months ago. Patient states the chest pain and arm pain have been present since earlier this morning. There are no exacerbating, precipitating or alleviating factors. There is no radiation. There is no associated nausea, vomiting or diaphoresis. She denies fever or chills. She denies leg pain, swelling discoloration. She states she was not prescribed Lasix which was noted on discharge records. She denies orthopnea or PND. She denies ocular, visual or auditory symptoms. She denies urologic symptoms. She denies GI symptoms. Prior similar symptoms: Yes Recent Illness/Hospitalization: Yes - Past Medical History (1) CAP (community acquired pneumonia) Status: Acute (2) Bipolar disorder Status: Chronic (3) COPD (chronic obstructive pulmonary disease) Status: Chronic (4) Cerebrovascular disease Status: Chronic Comment: Status post acute ischemic stroke No residual deficit (5) Coronary artery disease Status: Chronic (6) Depression Status: Chronic (7) Diabetes type 2, uncontrolled Status: Chronic (8) Esophageal reflux Status: Chronic (9) Generalized anxiety disorder Status: Chronic (10) Hyperlipidemia Status: Chronic (11) Multiple personality disorder Status: Chronic (12) ELENITA on CPAP Status: Chronic (13) Obesity Status: Chronic (14) Peripheral neuropathy Status: Chronic (15) Restless legs syndrome Status: Chronic (16) Rheumatoid arthritis Status: Chronic (17) Seizure disorder Status: Chronic Past Medical History - Allergies and Home Meds Allergies/Adverse Reactions: Allergies ciprofloxacin [From Cipro] Allergy (Verified 06/29/19 10:42) Rash codeine Allergy (Verified 06/29/19 10:42) Shortness of breath Penicillins Allergy (Verified 06/29/19 10:42) Hives CILLINS Allergy (Uncoded 06/29/19 10:42) Unknown Primary Care Physician: Bailey Toribio MD [Primary Care Provider] - Prior records reviewed: Yes Surgical History: appendectomy, cataract, cholecystectomy, hysterectomy, tonsillectomy, - - Glaucoma, abdominal surgery for cyst. Lives: Spouse/ Significant Other Smoking Status: Former smoker Alcohol: None Drugs: None - Family History Maternal Family History: Reports: Cancer, Diabetes, Heart Disease, Hypertension Paternal Family History: Reports: Cancer, Heart Disease Review of Systems General: Reports: Malaise. Denies: Chills, Fever, Subjective, Sweats Eyes: Denies: Visual changes - bilaterally, Blurred Vision - bilaterally ENT: Denies: Rhinorrhea Cardiovascular: Reports: Chest pain. Denies: Palpitations, Heart racing Respiratory: Reports: Dyspnea, Cough, Sputum, Dyspnea on exertion. Denies: Orthopnea, Paroxysmal nocturnal dyspnea Gastrointestinal: Denies: Abdominal pain, Nausea, Vomiting, Diarrhea, Melena, Hematochezia Genitourinary: Denies: Dysuria, Hematuria, Frequency Musculoskeletal: Denies: Myalgias, Arthralgias, Neck pain, Back pain, Swelling, Extremity Pain, -, - Skin: Denies: Rash, Wounds Neurological: Denies: Headache, Weakness, Numbness Endocrine: Denies: Polyuria, Polydipsia Hematologic: Denies: Easy bruising, Easy bleeding Allergy: Denies: Uticaria, Swelling of the mouth, Swelling of the tongue Physical Exam Vital Signs/Narrative: Vital Signs Temp Pulse Resp BP Pulse Ox 06/29/19 10:51 81 17 188/79 H 100 06/29/19 10:40 98 F 78 22 H 169/65 H 99 Inital Vital Signs reviewed: Yes General: Well nourished, Well developed, Obese, Acute Distress, - - Is used accessory muscles and patient has audible wheezing Head: Normocephalic, Atraumatic Eyes: Perrl, EOMI. Negative for: Pale conjunctiva, Scleral icterus ENT: Moist mucous membranes, No rhinorrhea, TM's clear Neck: Supple, Nontender, No lymphadenopathy, No JVD, - - Acute is midline. There is no inspiratory expiratory stridor. Cardiovascular: Regular rate, Regular rhythm, No murmurs, Normal S1, Normal S2, Bradycardia Respiratory: Wheezing, Diminished, Chest tenderness. Negative for: No distress, CTA bilaterally Abdomen: Soft, Nontender, Nondistended, Normal bowel sounds. Negative for: Hepatomegaly, Splenomegaly, Mass, Pulsatile mass Rectal: Deferred Back: Nontender, Normal Inspection Extremities: Nontender, No edema. Negative for: Calf Tenderness Skin: Normal color, No rash, No Trauma. Negative for: Cyanosis, Diaphoresis, Jaundice Neurological: Alert, Oriented x3, Cranial nerves II-XII grossly intact, Normal Strength, Normal Sensation Psychological: Depressed, Tearful Diagnostic/Tx/Re-eval Chest X-Ray - ED: 2 View, Normal, Heart, Bony Structures, - - Infiltrate on right side is improving. The infiltrate on the left may be worsening. Curly B-lines are noted. There is not as much cephalization as x-ray that was obtained on June 21, 2019. 06/29/19 12:15 Chest PA and Lateral [RAD] Stat Laboratory Results 06/29/19 06/29/19 06/29/19 11:12 11:12 11:12 WBC 5.2 RBC 2.77 L Hgb 8.4 L Hct 25.5 L MCV 92.1 MCH 30.3 MCHC 32.9 RDW Std Deviation 41.9 RDW Coeff of Kusum 12.5 Plt Count 204 MPV 9.8 Immature Gran % (Auto) 0.400 Neut % (Auto) 62.3 Lymph % (Auto) 27.3 [place] % (Auto) 6.3 Eos % (Auto) 2.7 Baso % (Auto) 1.0 Absolute Neuts (auto) 3.3 Absolute Lymphs (auto) 1.42 Nucleated RBC % 0 Sodium 143 Potassium 4.1 Chloride 110 H Carbon Dioxide 28.0 Anion Gap 5 BUN 12 Creatinine 1.09 H Estim Creat Clear Calc 34.69 Est GFR (MDRD) Af Amer 63 Est GFR (MDRD) Non-Af 52 L BUN/Creatinine Ratio 11.0 Glucose 212 H Lactic Acid 0.8 Calcium 8.8 Troponin I 0.019 B-Natriuretic Peptide 06/29/19 11:12 WBC RBC Hgb Hct MCV MCH MCHC RDW Std Deviation RDW Coeff of Kusum Plt Count MPV Immature Gran % (Auto) Neut % (Auto) Lymph % (Auto) [place] % (Auto) Eos % (Auto) Baso % (Auto) Absolute Neuts (auto) Absolute Lymphs (auto) Nucleated RBC % Sodium Potassium Chloride Carbon Dioxide Anion Gap BUN Creatinine Estim Creat Clear Calc Est GFR (MDRD) Af Amer Est GFR (MDRD) Non-Af BUN/Creatinine Ratio Glucose Lactic Acid Calcium Troponin I B-Natriuretic Peptide 323.5 H - Medical Decision Making With complaint of chest pain left arm pain EKG, troponin and BNP were obtained to assess cardiac etiology versus other. Chest x-ray was obtained to evaluate for worsening pneumonia and congestive heart failure since she has not taking the Lasix she was prescribed. Because she has wheezing and history of COPD she received DuoNeb and albuterol. With chronic anemia. White count is normal. BNP is elevated at 329. Troponin is 0.019 which is lightly elevated and nondiagnostic. She was ambulated. Pulse ox went from 96 to 94%. She did not become tachycardic. Since the chest x-ray shows improvement will discharge with burst of prednisone and have her use an inhaler more frequently. ED Disposition - Plan for ED Patient: Disposition: Home or Assisted Living Diagnosis: Asthma exacerbation in COPD, Resolving pneumonia Instructions: Copd Flare Prescriptions: Prednisone 10 mg PO UD #33 tab Prescription Printed Referrals: Bailey Toribio MD [Primary Care Provider] - 3-5 Days
[2019-06-29] MEDS: Ipratropium/Albuterol Sulfate 3 ML AMPUL.NEB INHALATION (11:19)
[2019-06-29 11:31] LABS: Absolute Lymphocyte Count 1.42 X10^3/uL (0.83-4.51); Absolute Neutrophil Count 3.3 X10^3/uL (2.0-7.7); Basophil# 0.05 X10^3/uL; Eosinophil# 0.14 X10^3/uL; Eosinophils% 2.7 % (0-5); Hematocrit 25.5 % (37-47); Hemoglobin 8.4 g/dL (12.0-15.0); Lymphocyte # 1.42 X10^3/ul (4.0); Lymphocyte % 27.3 % (19-41); Mean Corp Hgb Conc 32.9 g/dL (32-36); Mean Corpuscular Hgb 30.3 pg (27.0-32.0); Mean Corpuscular Volume 92.1 fL (81-99); Mean Platelet Vol. 9.8 fl (6.2-12.0); Monocyte# 0.33 X10^3/uL; Monocyte% 6.3 % (0-10); NRBC Flagged by Analyzer 0 % (0-5); Neutrophil # 3.25 X10^3/uL (2.7-7.7); Neutrophil % 62.3 % (47-70); Platelet Count 204 K/mm3 (150-450); RBC Distribution Width CV 12.5 % (11.6-14.6); RBC Distribution Width SD 41.9 fl (35.1-43.9); Red Blood Count 2.77 M/mm3 (4.2-5.4); White Blood Count 5.2 K/mm3 (4.4-11.0)
[2019-06-29] MEDS: Albuterol 2.5 MG/3 ML VIAL.NEB. INHALATION ×3 (11:33→12:17)
[2019-06-29 11:48] LABS: Anion Gap 5 (5-15); BUN 12 mg/dL (7-18); Calcium,Total 8.8 mg/dL (8.5-10.1); Chloride 110 mmol/L (98-107); Creatinine, Serum 1.09 mg/dL (0.55-1.02); EST Glomerular Filtration Rate 52 mL/min (>60); Est Glom Filt Rate - Afr Amer 63 mL/min (>60); Estimated Creatinine Clearance 34.69 ml/min; Glucose 212 mg/dL (74-106); Potassium 4.1 mmol/L (3.5-5.1); Sodium Level 143 mmol/L (136-145)
[2019-06-29 11:54] LABS: Lactic Acid 0.8 mmol/L (0.4-1.9)
[2019-06-29 12:02] LABS: BNP,B-Type NATRIURETIC PEPTIDE 323.5 pg/mL (0-100)
--- NOTE | 2019-06-29 12:14 | NURSING ---
updated medlist put in the computer per what the pt gave me.
--- NOTE | 2019-06-29 12:15 | RAD_ITS ---
STUDY: X-RAY CHEST REASON FOR EXAM: Female, 73 years old. COUGH, CHEST PAIN, SOB, wheezing TECHNIQUE: PA and lateral views of the chest. COMPARISON: 06/21/2019 FINDINGS: Persistent reticular dominant opacities in the lung bases with superimposed opacity at the left lung base obscuring left hemidiaphragm. No substantial interval change since the most recent study. Small left pleural effusion evident. Normal size heart. Normal mediastinum and elva. Normal visualized pulmonary arteries. There is atherosclerotic calcification of the aortic arch with tortuosity. There is demineralization of the osseous structures. Normal visualized ribs, clavicles, and shoulders. There is no demonstrated abnormality of the visualized soft tissue structures of the upper abdomen. RAD/Chest PA and Lateral IMPRESSION: 1. Similar left more than right basilar infiltrates. Electronically Signed: Chuck Uribe MD ([place]) at 12:40 EST , Service support ,
--- NOTE | 2019-06-29 13:03 | CPS ---
x3 Albuterol given to pt. as well
--- NOTE | 2019-06-29 13:58 | ED.DCSUM_ITS ---
- ER Visit Summary Date of Service: 06/29/19 Chief Complaint: [] History of Present Illness: The patient is a 73 F [] Physical Examination: [] Test Results: [] Emergency Department Course and Treatment: [] Treatment Plan: [] Disposition: [] Impression: [] This note was generated with [employer] dictation software. It may contain incorrect words, spelling, and punctuation that were not noted in review of the chart prior to signing ED Disposition - Plan for ED Patient: Disposition: Home or Assisted Living Diagnosis: Asthma exacerbation in COPD, Resolving pneumonia Instructions: Copd Flare Prescriptions: Furosemide [Lasix] 20 mg PO DAILY #30 tab Transmission Status: Pending to [facility] #[id number] Prednisone 10 mg PO UD #33 tab Prescription Printed Referrals: Bailey Toribio MD [Primary Care Provider] - 3-5 Days
== END 2019-06-29 14:39 | disposition home or self-care (01) ==
PROVIDERS: Emergency Provider Emergency Medicine; Family Provider Internal Medicine; PCP Internal Medicine
DX: J44.0 Chronic obstructive pulmonary disease with (acute) lower respiratory infection (principal); J18.9 Pneumonia, unspecified organism; I25.10 Atherosclerotic heart disease of native coronary artery without angina pectoris; G40.909 Epilepsy, unspecified, not intractable, without status epilepticus; E11.40 Type 2 diabetes mellitus with diabetic neuropathy, unspecified; E78.5 Hyperlipidemia, unspecified; M06.9 Rheumatoid arthritis, unspecified; G47.33 Obstructive sleep apnea (adult) (pediatric); G25.81 Restless legs syndrome; K21.9 Gastro-esophageal reflux disease without esophagitis; F44.81 Dissociative identity disorder; F31.9 Bipolar disorder, unspecified; E66.9 Obesity, unspecified; F41.1 Generalized anxiety disorder; Z79.4 Long term (current) use of insulin; Z79.899 Other long term (current) drug therapy; Z88.1 Allergy status to other antibiotic agents; Z88.0 Allergy status to penicillin; Z86.73 Personal history of transient ischemic attack (TIA), and cerebral infarction without residual deficits; Z87.891 Personal history of nicotine dependence; Z90.710 Acquired absence of both cervix and uterus; Z90.49 Acquired absence of other specified parts of digestive tract
CPT/HCPCS: 71046; 80048; 83605; 83880; 84484; 85025; 93005; 94640; 99251; 99285; G0463

== ENCOUNTER 2019-07-06 00:11 | Inpatient (IN) | payer MEDICARE, SELFPAY ==
[2019-06-29 10:40] VITALS: BMI 34.0
[2019-07-06] VITALS (13 sets, daily range): BP systolic 141–167; BP diastolic 55–78; PULSE 70–89; RESP 12–18; TEMP 36.6–36.9; O2SAT 91–100; BMI 34.0; BMI 35.6
--- NOTE | 2019-07-06 00:13 | EKG12_ITS ---
Test Reason : CP Blood Pressure : / mmHG Vent. Rate : 081 BPM Atrial Rate : 081 BPM P-R Int : 130 ms QRS Dur : 086 ms QT Int : 380 ms P-R-T Axes : 032 030 025 degrees QTc Int : 441 ms Normal sinus rhythm Normal ECG Confirmed by DUTCH BOWMAN, ANTONIA ([id number]), editor farm journal RADHA TAPIA ([id number]) on 07/08/2019 1:01:57 PM Referred By: MR Confirmed By:ANTONIA JUDD MD
[2019-07-06 00:29] LABS: Absolute Lymphocyte Count 1.86 X10^3/uL (0.83-4.51); Basophil# 0.02 X10^3/uL; Basophil% 0.2 % (0-1); Eosinophil# 0.01 X10^3/uL; Eosinophils% 0.1 % (0-5); Hematocrit 26.4 % (37-47); Hemoglobin 8.7 g/dL (12.0-15.0); Lymphocyte # 1.86 X10^3/ul (4.0); Lymphocyte % 17.3 % (19-41); Mean Corpuscular Hgb 30.6 pg (27.0-32.0); Mean Platelet Vol. 9.7 fl (6.2-12.0); Monocyte# 0.78 X10^3/uL; Monocyte% 7.3 % (0-10); NRBC Flagged by Analyzer 0 % (0-5); Neutrophil # 7.99 X10^3/uL (2.7-7.7); Neutrophil % 74.3 % (47-70); Platelet Count 243 K/mm3 (150-450); RBC Distribution Width CV 13.3 % (11.6-14.6); RBC Distribution Width SD 44.9 fl (35.1-43.9); Red Blood Count 2.84 M/mm3 (4.2-5.4); White Blood Count 10.8 K/mm3 (4.4-11.0)
--- NOTE | 2019-07-06 00:30 | RAD_ITS ---
STUDY: X-RAY CHEST REASON FOR EXAM: Female, 73 years old. CHEST PAIN, CHEST PRESSURE, NAUSEA, LEG SWELLING TECHNIQUE: PA chest COMPARISON: 06/29/2019 FINDINGS: There are improving pulmonary infiltrates, atelectasis and pleural effusions. There is no demonstrated pleural abnormality. Normal size heart. Normal mediastinum and elva. Normal visualized pulmonary arteries. Normal visualized aortic arch and descending thoracic aorta. Normal visualized thoracic spine. Normal visualized ribs, clavicles, and shoulders. There is no demonstrated abnormality of the visualized soft tissue structures of the upper abdomen. RAD/Chest 1 View (Portable) IMPRESSION: Improving pulmonary infiltrates, atelectasis and pleural effusions Electronically Signed: Dinesh Berger, at 1:37 EST Tel , Service support ,
--- NOTE | 2019-07-06 00:41 | ED.VIS.CHEST ---
History of Present Illness Chief Complaint: Chest Pain Informant: Patient Narrative: Patient presenting for evaluation secondary to chest pain. Patient was recently admitted to the hospital secondary to pneumonia. Patient reports that over the course of about the last 3 days she has developed generalized swelling. Patient does report that she is on a treatment course of prednisone for treatment of her pneumonia, but she is never had edema like this, and now today she states that she has developed chest pain. She reports it as being a sharp type pain that is somewhat worse with taking deep breath. She denies any radiation of the pain. No recent fevers, reemergence of cough, nausea, vomiting, or diarrhea. Patient reports that she is urinating normally. She denies any history of congestive heart failure. Review of systems otherwise negative. Past Medical History - Allergies and Home Meds Allergies/Adverse Reactions: Allergies ciprofloxacin [From Cipro] Allergy (Verified 07/06/19 00:17) Rash codeine Allergy (Verified 07/06/19 00:17) Shortness of breath Penicillins Allergy (Verified 07/06/19 00:17) Hives CILLINS Allergy (Uncoded 07/06/19 00:17) Unknown Past Medical History: - - COPD, diabetes, hypertension, obesity, stage II diastolic heart dysfunction Surgical History: appendectomy, cataract, cholecystectomy, hysterectomy, tonsillectomy, - - Glaucoma, abdominal surgery for cyst. Smoking Status: Current some day smoker - Family History Maternal Family History: Reports: Cancer, Diabetes, Heart Disease, Hypertension Paternal Family History: Reports: Cancer, Heart Disease Review of Systems All systems negative except as indicated General: Denies: Chills, Fever, Sweats Eyes: Denies: Visual changes - bilaterally, Diplopia ENT: Denies: Rhinorrhea, Sore throat Cardiovascular: Reports: Chest pain Respiratory: Reports: Dyspnea Gastrointestinal: Denies: Abdominal pain, Nausea, Vomiting, Diarrhea, Melena, Hematochezia Genitourinary: Denies: Dysuria, Hematuria, Frequency Musculoskeletal: Reports: Swelling Skin: Denies: Rash, Wounds Neurological: Denies: Headache, Weakness, Numbness Physical Exam Vital Signs/Narrative: Vital Signs Temp Pulse Resp BP Pulse Ox 07/06/19 00:11 97.8 F 87 16 148/78 H 98 Inital Vital Signs reviewed: Yes General: Well nourished, Well developed, No Acute Distress Head: Normocephalic, Atraumatic Eyes: Perrl, EOMI ENT: Moist mucous membranes, No rhinorrhea Neck: Supple, Nontender Cardiovascular: Regular rate, Regular rhythm, No murmurs Respiratory: No distress, CTA bilaterally, Chest nontender Abdomen: Soft, Nontender, Nondistended, Normal bowel sounds Back: Nontender, Normal Inspection Extremities: Edema - +2 bilaterally symmetric lower extremity pitting Skin: Normal color, No rash Neurological: Alert, Oriented x3, Cranial nerves II-XII grossly intact, Normal Strength, Normal Sensation Psychological: Normal affect, Normal Mood Diagnostic/Tx/Re-eval Chest X-Ray - ED: 1 View, Read by ED Physician, Read by Radiologist, - - Clearing of the patient's infiltrate. No evidence of congestive heart failure. - EKG Initial EKG Interpretation: - - Sinus rhythm of [address] segments normal T waves no evidence of right ventricular strain or acute ischemia or arrhythmia. No gross changes from June [id number]. - Medical Decision Making Patient presented with chest pain and edema. Work-up shows the patient to have chronic anemia with a hemoglobin of 8.7. She has evidence of acute kidney injury with elevation of creatinine from 1.09-1.86 and elevation of her BUN to 43. BNP was modestly elevated at 285. Chest x-ray shows clearing of the infiltrate no obvious evidence of congestive heart failure. Patient has acute kidney injury injury at this time, and unable to perform CT angiogram imaging of the patient's chest to rule out the possibility of pulmonary embolism as being a cause of her chest pain. Regardless I believe she requires admission to her to her acute kidney injury. Patient will be admitted on the hospitalist. ED Disposition - Plan for ED Patient: Disposition: Acute Care Hospital [facility] Diagnosis: Chest pain, Acute kidney injury
[2019-07-06 00:42] LABS: Prothrombin Time (Protime)PT. 13.3 SECONDS (11.7-14.9)
[2019-07-06 00:46] LABS: Anion Gap 8 (5-15); BUN 43 mg/dL (7-18); BUN/Creat Ratio 23.1 RATIO (10-20); Calcium,Total 8.4 mg/dL (8.5-10.1); Chloride 105 mmol/L (98-107); Creatinine, Serum 1.86 mg/dL (0.55-1.02); EST Glomerular Filtration Rate 28 mL/min (>60); Est Glom Filt Rate - Afr Amer 34 mL/min (>60); Estimated Creatinine Clearance 20.33 ml/min; Glucose 267 mg/dL (74-106); Potassium 3.9 mmol/L (3.5-5.1); Sodium Level 139 mmol/L (136-145)
[2019-07-06] MEDS: Ondansetron 4 MG/2 ML Vial IV (01:08)
[2019-07-06] MEDS: Aspirin 81 MG TAB.CHEW 324 MG PO (01:08)
[2019-07-06 01:38] LABS: BNP,B-Type NATRIURETIC PEPTIDE 285.8 pg/mL (0-100)
--- NOTE | 2019-07-06 01:39 | PCM.HP.STD ---
Problem List (1) Chest pain Status: Acute (2) Seizure disorder Status: Chronic (3) Stroke Status: Chronic (4) Coronary artery disease Status: Chronic (5) Depression Status: Chronic (6) Bipolar disorder Status: Chronic (7) Multiple personality disorder Status: Chronic (8) Restless legs syndrome Status: Chronic (9) Rheumatoid arthritis Status: Chronic (10) Generalized anxiety disorder Status: Chronic (11) CAP (community acquired pneumonia) Status: Resolved Qualifiers: Laterality: unspecified laterality Qualified Code(s): J18.9 - Pneumonia, unspecified organism (12) Pneumonia Status: Inactive (13) Community acquired pneumonia Status: Inactive (14) Acute kidney injury Status: Acute (15) ELENITA on CPAP Status: Chronic (16) COPD (chronic obstructive pulmonary disease) Status: Chronic (17) Peripheral neuropathy Status: Chronic (18) Esophageal reflux Status: Chronic Qualifiers: (19) Depressive disorder Status: Chronic (20) 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 Comment: nonhealing MRSA diabetic ulcer abdominal wall (21) Personal history of Methicillin resistant Staphylococcus aureus infection Status: Chronic (22) Obesity Status: Chronic Qualifiers: Obesity type: due to excess calories (23) Hypertension Status: Chronic (24) Diabetes type 2, uncontrolled Status: Chronic (25) Hyperglycemia Status: Chronic (26) Hyperlipidemia Status: Chronic (27) MRSA Status: Chronic (28) Cerebrovascular disease Status: Chronic Comment: Status post acute ischemic stroke No residual deficit (29) Diabetes mellitus Status: Chronic History of Present Illness Date of Admission: 07/06/19 Chief Complaint: chest pain The patient is a 73 year old F with a significant history of former tobacco abuse; CAD; general anxiety disorder; who presented to emergency department with severe left-sided chest pain that radiated to her shoulder. She denies any ameliorating or aggravating factor. She reports shortness of breath. She denies nausea or vomiting. At the emergency department her creatinine was found to be severely elevated. Patient was recently admitted at the hospital for pneumonia. 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) Obesity (Chronic) Hypertension (Chronic) Diabetes type 2, uncontrolled (Chronic) Hyperglycemia (Chronic) Hyperlipidemia (Chronic) MRSA (Chronic) Cerebrovascular disease (Chronic) Status post acute ischemic stroke No residual deficit Diabetes mellitus (Chronic) Allergies ciprofloxacin [From Cipro] Allergy (Verified 07/06/19 00:17) Rash codeine Allergy (Verified 07/06/19 00:17) Shortness of breath Penicillins Allergy (Verified 07/06/19 00:17) Hives CILLINS Allergy (Uncoded 07/06/19 00:17) Unknown Home Medications: Ambulatory Orders Medication Instructions Recorded Isosorbide Mononitrate [Isosorbide 30 mg PO DAILY 04/10/15 Mononitrate ER] Atorvastatin Calcium 10 mg PO QHS 05/03/18 Fluticasone 0.05% [Flonase Nasal 2 spray NARES DAILY 05/03/18 [place]] Gabapentin [Neurontin] 200 mg PO BID 05/03/18 Latanoprost 0.005% [Xalatan 1 drop EACH EYE QHS 05/03/18 Opthalmic] Acetaminophen [Tylenol Tablet] 650 mg PO Q4H PRN PRN 06/17/18 Lisinopril 20 mg PO DAILY 06/21/18 Insulin Lispro [Humalog KwikPen] 10 unit SUBCUT TIDCM 06/10/19 Albuterol Inhaler [Ventolin Hfa] 1 - 2 puff INHALATION Q4H PRN PRN 06/11/19 #1 inhaler Cholecalciferol (Vitamin D3) 50,000 unit PO QMONTH 06/29/19 [D3-50] Famotidine 40 mg PO BID 06/29/19 Fexofenadine HCl 60 mg PO DAILY 06/29/19 Hydrocortisone 2.5% Crm [Hytone] 1 applic TOPICAL BID PRN PRN 06/29/19 Hydroxyzine Pamoate [Vistaril] 25 mg PO PRN PRN 06/29/19 Insulin Glargine [Lantus SoloStar 29 units SUBCUT QHS 06/29/19 Pen] Lactulose 30 gm PO DAILY 06/29/19 Meloxicam 15 mg PO DAILY 06/29/19 Nystatin 1 ea MC 4X/DAY 06/29/19 cycloBENZAPRine HCl [Flexeril] 5 mg PO TID PRN PRN 06/29/19 traZODone [Desyrel] 50 mg PO QHS 06/29/19 Albuterol Sulfate [Ventolin Hfa] 18 gm IH PRN PRN 07/06/19 Amlodipine Besylate 5 mg PO DAILY 07/06/19 Furosemide [Lasix] 20 mg PO DAILY 07/06/19 Loratadine 10 mg PO DAILY 07/06/19 Pantoprazole Sodium [Protonix] 40 mg PO DAILY 07/06/19 Prednisone 10 mg PO UD 07/06/19 Surgical History: appendectomy, cataract, cholecystectomy, hysterectomy, tonsillectomy, - - Glaucoma, abdominal surgery for cyst. Psychiatric History: Anxiety, Bipolar, Depression, - - Multiple personality disorder. 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 Denies: Palpitations Respiratory: Reports: Shortness of Breath. Denies: Cough, Shortness of breath at rest, Sputum production Gastrointestinal: Denies: Abdominal Pain, Nausea, Vomiting Genitourinary: Denies: Dysuria Musculoskeletal: Denies: Joint Pain, Joint Tenderness Skin: Denies: Rash, Wounds Neurological: Denies: Numbness, Tingling, Focal weakness Psychiatric: Denies: Anxiety, Depression, Homicidal Ideations, Suicidal Ideations Hematologic/ Lymphatic: Denies: Easy Bruising, Easy Bleeding VTE Information - Inpt Only VTE Present on Admission: No VTE Mechan Device Prophylaxis: SCD's Patient Problems: Active and Suspected Problems Chest pain (Acute) Acute kidney injury (Acute) - Physical Exam Vitals/I&O's: Vital Signs Temp Pulse Resp BP Pulse Ox 97.8 F 87 15 149/71 H 100 07/06/19 00:11 07/06/19 01:12 07/06/19 01:12 07/06/19 01:12 01/04/20 01:12 Oxygen Delivery Method Room Air Weight: 81.647 kg Body Mass Index (BMI) 34.0 Finger Stick Blood Glucose 383 General: Alert, Oriented x3, Cooperative HEENT: Atraumatic, PERRLA, EOMI, Normocephalic Neck: Supple, No JVD, Negative Carotid Bruits Lungs: Clear to auscultation, Normal air movement Cardiovascular: Regular rate, Normal S1, Normal S2, No murmurs Abdomen: Bowel Sounds Present, Soft, Non Tender Extremities: No edema, Capillary Refill Less than 3 Seconds Skin: No rashes, No breakdown Musculoskeletal: No Tenderness to Palpation of Joints or Extremities Neurological: Cranial nerves II-XII grossly intact Psych/Mental Status: Normal Affect, Appropriate Laboratory Results 07/06/19 00:20: WBC 10.8, RBC 2.84 L, Hgb 8.7 L, Hct 26.4 L, MCV 93.0, MCH 30.6, MCHC 33.0, RDW Std Deviation 44.9 H, RDW Coeff of [place] 13.3, Plt Count 243, MPV 9.7, Immature Gran % (Auto) 0.800, Neut % (Auto) 74.3 H, Lymph % (Auto) 17.3 L, [place] % (Auto) 7.3, Eos % (Auto) 0.1, Baso % (Auto) 0.2, Absolute Neuts (auto) 8.0 H, Absolute Lymphs (auto) 1.86, Nucleated RBC % 0 07/06/19 00:20: PT 13.3, INR 1.0 07/06/19 00:20: Sodium 139, Potassium 3.9, Chloride 105, Carbon Dioxide 26.0, Anion Gap 8, BUN 43 H, Creatinine 1.86 H, Estim Creat Clear Calc 20.33, Est GFR (MDRD) Af Amer 34 L, Est GFR (MDRD) Non-Af 28 L, BUN/Creatinine Ratio 23.1 H, Glucose 267 H, Calcium 8.4 L, Troponin I < 0.015 07/06/19 00:20: B-Natriuretic Peptide 285.8 H Assessment/Plan All Active Problems Concussion (Resolved) CAP (community acquired pneumonia) (Resolved) Chest pain (Acute) Acute kidney injury (Acute) The patient is a 73 year old F with a significant history of former tobacco abuse; CAD; general anxiety disorder; who presented to emergency department with severe left-sided chest pain that radiated to her shoulder and elevated creatinine as well as bilateral lower extremity swelling. Chest pain Place on a monitored bed at PCU CXR independently reviewed confirms no acute cardiopulmonary process. EKG independently reviewed confirms no acute ST-T wave abnormalities. ASA 81 mg p.o. daily Morphine as needed for pain We will check lipid panel. Lipitor continued Serial cardiac enzymes Stat EKG as needed for chest pain Nuclear stress test in the AM if the cardiac enzymes are negative Bilateral leg edema and dyspnea Kerlix roll Clyde wrap to bilateral legs and elevate bilateral legs. Bilateral venous Doppler ordered. DEBBIE On presentation her creatinine was 1.86 Baseline creatinine is around 1.10 Gentle IV hydration. Trend BMP. Diabetes mellitus with nephropathy With complications including diabetic nephropathy. Patient with hyperglycemia Advised home long-acting insulin and prandial insulin. Accu-Chek QA CHS and correction scale insulin. DVT prophylaxis SCD ordered Code Visit OBSV E&M: 59750 Initial observation care L3
--- NOTE | 2019-07-06 02:57 | VDLE_ITS ---
Reason For Study: Swelling RIGHT LEFT GSV is normal. GSV is normal. CFV is compressible, spontaneous, phasic, CFV is compressible, spontaneous, phasic, competent and demonstrates normal competent, and demonstrates normal augmentation. augmentation. FV is compressible, spontaneous, phasic, FV is compressible, spontaneous, phasic, competent and demonstrates normal competent and demonstrates normal augmentation. augmentation. POP V is compressible, spontaneous, phasic, POP V is compressible, spontaneous, phasic, competent and demonstrates normal competent and demonstrates normal augmentation. augmentation. T/P Trunk is compressible. T/P Trunk is compressible. PTV is compressible. PTV is compressible. RT PerV is compressible. LT PerV is compressible. Procedure Exam performed in department. A preliminary report was called and/or faxed to Johanny MALDONADO. Interpretation Summary No evidence for acute deep venous thrombosis bilateral lower extremities with patent and compressible bilateral great saphenous veins. Left popliteal 3.75 x 2.1 x 0.99 cm structure suspicious for a Chilel's cyst. Ordering Physician: Farhat Ray Referring Physician: Bailey Toribio Performed By: Monet Holcomb RVT
--- NOTE | 2019-07-06 02:57 | EKG12_ITS ---
Test Reason : AM Blood Pressure : / mmHG Vent. Rate : 074 BPM Atrial Rate : 074 BPM P-R Int : 124 ms QRS Dur : 082 ms QT Int : 404 ms P-R-T Axes : 044 037 039 degrees QTc Int : 448 ms Normal sinus rhythm Normal ECG Confirmed by ANGELA BOWMAN, SANTHOSH ([id number]), web editor JERRI SONI ([id number]) on 07/10/2019 11:34:43 AM Referred By: Confirmed By:SANTHOSH MILLER MD
[2019-07-06] MEDS: 0.9% Normal Saline 1,000 ML 75 ML IV (04:56)
[2019-07-06] MEDS: CLARIFY ORDER 1 EACH NOTE (04:59)
--- NOTE | 2019-07-06 07:22 | EKG12_ITS ---
Test Reason : Blood Pressure : / mmHG Vent. Rate : 071 BPM Atrial Rate : 071 BPM P-R Int : 130 ms QRS Dur : 086 ms QT Int : 402 ms P-R-T Axes : 035 036 048 degrees QTc Int : 436 ms Normal sinus rhythm Normal ECG Confirmed by ANGELA BOWMAN, SANTHOSH ([id number]), department editor JERRI SONI ([id number]) on 07/10/2019 11:37:19 AM Referred By: TYRONE Confirmed By:SANTHOSH MILLER MD
[2019-07-06 07:55] LABS: Cholesterol 166 mg/dL (200); High Density Lipoprotein 62 mg/dL; Triglycerides 99 mg/dL; Very Low Density Lipoprotein 20 mg/dL (5-40)
[2019-07-06] MEDS: Aspirin E.C. 81 MG Tablet PO (08:13)
[2019-07-06] MEDS: amLODIPine 5 MG Tablet PO (08:13)
[2019-07-06] MEDS: Loratadine 10 MG Tablet PO (09:19)
[2019-07-06] MEDS: Fluticasone 0.05% 1 SPRAY NASAL.SRY 2 SPRAY NASAL (09:19)
[2019-07-06] MEDS: Isosorbide Mononitrate 30 MG Tablet PO (09:20)
[2019-07-06] MEDS: Pantoprazole Sodium 40 MG Tablet PO (09:20)
[2019-07-06] MEDS: 0.9% Saline Lock 10 ML Syringe IV ×3 (09:20→17:35)
[2019-07-06] MEDS: Famotidine 20 MG Tablet 40 MG PO ×2 (09:20→21:18)
--- NOTE | 2019-07-06 09:46 | PCM.PN.BLA ---
Progress Note Patient is a 73-year-old lady with multiple comorbidities admitted with chest discomfort as well as lower extremity swelling Patient was supposed to undergo a nuclear stress test patient could not tolerate the procedure. 1. Chest pain ?GA has to 5 be ruled out with serial cardiac enzymes. Plan for patient to undergo a nuclear stress test was unsuccessful due to patient not being able to tolerate the procedure 2. Acute congestive heart failure with ejection fraction ~Echo obtained on 06/21/2019 demonstrated EF of 60% patient placed on strict input and output fluid restriction as well as IV Lasix 3. Anemia ~Secondary to anemia of chronic disorder monitoring H&H with plans to transfuse if patient becomes symptomatic or hemoglobin falls below 7 4. Hypertension ~Blood Pressure stable. Home medications continued. Doses adjusted as needed 5. Obstructive sleep apnea ~Patient is on CPAP at night 6. Acute kidney injury ~ Thought to be secondary to cardiorenal, edition patient is on potential nephrotoxic medications including nonsteroidal anti-inflammatory medications, lisinopril, suspected offending medications held. Due to anticipate improvement with diuretics 6. Chronic kidney disease stage III secondary to diabetic nephropathy 7. Diabetes mellitus type II ~Complications including diabetic nephropathy. Placed on long acting insulin, Accu-Cheks a.c. and at bedtime and covered with sliding scale insulin 8. GERD ?Patient is on PPI 9. DVT prophylaxis ~ on enoxaparin, dose adjusted for kidney function STROKE Vital Signs/Narrative: Vital Signs Temp Pulse Resp BP Pulse Ox 07/06/19 08:16 98.0 F 89 12 165/68 H 96 07/06/19 08:08 91 07/06/19 07:00 72
[2019-07-06] MEDS: Furosemide 40 MG/4 ML Vial IV ×2 (11:16→17:34)
[2019-07-06] MEDS: Acetaminophen 325 MG Tablet 650 MG PO (11:16)
[2019-07-06] MEDS: Insulin Lispro 100 UNIT/ML INSULN.PEN SC ×3 (11:24→21:25)
[2019-07-06 11:30] LABS: Allen Test POS; Base Excess 0 mmol/L (-2 to +2); Bicarbonate 24.9 mmol/L (22-26); Blood Gas Specimen Type ART; O2 Delivery Device Room Air; PO2 66 mmHG (75-100); SITE L Radial; SO2 93 % (95-99); Time Given 1115; Total Carbon Dioxide 26 mmol/L; pCO2 37.9 mmHg (35-45); pH 7.43 (7.35-7.45)
[2019-07-06 11:36] LABS: Bedside Glucose 193 mg/dL (70-110)
[2019-07-06 16:20] LABS: Bedside Glucose 264 mg/dL (70-110)
[2019-07-06] MEDS: Insulin Lispro 100 UNIT/ML INSULN.PEN 7 UNIT SC ×2 (17:26→21:24)
--- NOTE | 2019-07-06 18:21 | NURSING ---
Reviewed and agreed on all charting with Nino Su RN
[2019-07-06] MEDS: Latanoprost 0.005% 1 Bottle 1 DRP EACH EYE (21:18)
[2019-07-06] MEDS: Gabapentin 100 MG Capsule PO (21:18)
[2019-07-06] MEDS: Atorvastatin Calcium 10 MG Tablet PO (21:19)
[2019-07-06] MEDS: traZODone 50 MG Tablet 25 MG PO (21:19)
--- NOTE | 2019-07-06 22:02 | CPS ---
Pt. was willing to try CPAP. Not too much longer after I applied the mask, pt. claimed she was not able to handle the pressure. I offered to lower CPAP pressure, but pt. was adamant that she had no desire to wear CPAP at night
[2019-07-06 22:10] LABS: Bedside Glucose 286 mg/dL (70-110)
[2019-07-07] VITALS (12 sets, daily range): BP systolic 139–154; BP diastolic 46–78; PULSE 67–82; RESP 14–16; TEMP 36.5–36.9; O2SAT 93–97
[2019-07-07 05:56] LABS: Absolute Lymphocyte Count 4.06 X10^3/uL (0.83-4.51); Absolute Neutrophil Count 4.2 X10^3/uL (2.0-7.7); Basophil# 0.07 X10^3/uL; Basophil% 0.8 % (0-1); Eosinophil# 0.31 X10^3/uL; Eosinophils% 3.4 % (0-5); Hematocrit 25.3 % (37-47); Hemoglobin 8.2 g/dL (12.0-15.0); Lymphocyte # 4.06 X10^3/ul (4.0); Lymphocyte % 44.5 % (19-41); Mean Corp Hgb Conc 32.4 g/dL (32-36); Mean Corpuscular Hgb 30.4 pg (27.0-32.0); Mean Corpuscular Volume 93.7 fL (81-99); Mean Platelet Vol. 10.1 fl (6.2-12.0); Monocyte% 5.5 % (0-10); NRBC Flagged by Analyzer 0 % (0-5); Neutrophil # 4.16 X10^3/uL (2.7-7.7); Neutrophil % 45.6 % (47-70); Platelet Count 203 K/mm3 (150-450); RBC Distribution Width CV 13.5 % (11.6-14.6); RBC Distribution Width SD 45.5 fl (35.1-43.9); White Blood Count 9.1 K/mm3 (4.4-11.0)
[2019-07-07 06:42] LABS: Anion Gap 5 (5-15); BUN 37 mg/dL (7-18); BUN/Creat Ratio 28.5 RATIO (10-20); Chloride 108 mmol/L (98-107); EST Glomerular Filtration Rate 43 mL/min (>60); Est Glom Filt Rate - Afr Amer 52 mL/min (>60); Estimated Creatinine Clearance 29.08 ml/min; Glucose 81 mg/dL (74-106); Potassium 3.8 mmol/L (3.5-5.1); Sodium Level 142 mmol/L (136-145)
--- NOTE | 2019-07-07 07:18 | PCM.PN.HOSP ---
Patient Problems: Active and Suspected Problems Chest pain (Acute) Acute kidney injury (Acute) Reason for Visit: follow up bilateral lower extremity swelling, chest discomfort or shortness of Subjective: Patient is a 73-year-old lady with multiple comorbidities admitted with chest discomfort as well as lower extremity swelling Patient was started on Lasix the day prior. Hemoglobin dropped to 8.2 requested for iron studies as well as B12 levels. Objective: GENERAL: cooperative HEENT: Atraumatic; EYES; Anicteric, Normal Conjunctiva NECK; supple, normal thyroid, RESPIRATORY: Diminished to auscultation CARDIOVASCULAR: Regular S1 S2, GI: soft, normoactive bowel sounds, : No Renal angle tenderness; EXTREMITIES: edema, no clubbing, MUSCULOSKELETAL: no muscle waisting NEURO: Awake; no lateralizing signs. SKIN: No Rash PSYCH; Flat affect Vitals/I&O's: Vital Signs Temp Pulse Resp BP Pulse Ox 97.7 F L 68 16 139/46 H 95 07/07/19 03:20 07/07/19 03:20 07/07/19 03:20 07/07/19 03:20 07/07/19 03:20 Oxygen Delivery Method Room Air Weight: 83.7 kg Body Mass Index (BMI) 35.6 Finger Stick Blood Glucose 383 Intake and Output for Last 24 Hours 07/05/19 07/06/19 07/07/19 23:59 23:59 23:59 Intake Total 1630 / 1630 Output Total 3150 / 3150 Balance -1520 / -1520 Laboratory Results 07/06/19 06:20: Troponin I < 0.015, Triglycerides 99, Cholesterol 166, LDL Cholesterol 84, VLDL Cholesterol 20, HDL Cholesterol 62 07/06/19 11:12: POC Glucose 193 H 07/06/19 11:25: Specimen Type ART, Sample Site L Radial, pH 7.43, Bicarbonate Actual 24.9, POC Total CO2 26, Base Excess 0, O2 Saturation 93 L, ABG pCO2 37.9, ABG pO2 66 L, Mike Test POS, O2 Delivery Device Room Air, Blood Gas Notified Whom CASS BOWMAN, Blood Gas Notified Time 1115 07/06/19 16:12: POC Glucose 264 H 07/06/19 21:15: POC Glucose 286 H 07/07/19 05:20: WBC 9.1, RBC 2.70 L, Hgb 8.2 L, Hct 25.3 L, MCV 93.7, MCH 30.4, MCHC 32.4, RDW Std Deviation 45.5 H, RDW Coeff of Kusum 13.5, Plt Count 203, MPV 10.1, Immature Gran % (Auto) 0.200, Neut % (Auto) 45.6 L, Lymph % (Auto) 44.5 H, Mcmullen % (Auto) 5.5, Eos % (Auto) 3.4, Baso % (Auto) 0.8, Absolute Neuts (auto) 4.2, Absolute Lymphs (auto) 4.06, Nucleated RBC % 0 07/07/19 05:20: Sodium 142, Potassium 3.8, Chloride 108 H, Carbon Dioxide 29.0, Anion Gap 5, BUN 37 H, Creatinine 1.30 H, Estim Creat Clear Calc 29.08, Est GFR (MDRD) Af Amer 52 L, Est GFR (MDRD) Non-Af 43 L, BUN/Creatinine Ratio 28.5 H, Glucose 81, Calcium 8.0 L Current Medications Acetaminophen (Tylenol) 650 mg PO Q6H PRN PRN PRN Reason: Pain Score 1-6/Temp > 100.7 F Last Admin: 07/06/19 11:16 Dose: 650 mg Documented by: Albuterol Sulfate (Ventolin Aerosols) 2.5 mg INHALATION Q2H PRN PRN PRN Reason: sob/wheezing Amlodipine Besylate (Norvasc) 5 mg PO DAILY [facility] Last Admin: 07/06/19 08:13 Dose: 5 mg Documented by: Aspirin (Ecotrin) 81 mg PO DAILY@0800 [facility] Last Admin: 07/06/19 08:13 Dose: 81 mg Documented by: Atorvastatin Calcium (Lipitor) 10 mg PO QHS [facility] Last Admin: 07/06/19 21:19 Dose: 10 mg Documented by: Enoxaparin Sodium (Lovenox) 30 mg SC DAILY [facility] Ergocalciferol (Vitamin D) 50,000 unit PO QMONTH [facility] Last Admin: 07/06/19 09:20 Dose: 50,000 unit Documented by: Famotidine (Pepcid) 40 mg PO BID [facility] Last Admin: 07/06/19 21:18 Dose: 40 mg Documented by: Fluticasone Propionate (Flonase Nasal Wallace) 2 spray NASAL DAILY [facility] Last Admin: 07/06/19 09:19 Dose: 2 spray Documented by: Furosemide (Lasix) 40 mg IV BID@1000,1800 [facility] Last Admin: 07/06/19 17:34 Dose: 40 mg Documented by: Gabapentin (Neurontin) 100 mg PO BID [facility] Last Admin: 07/06/19 21:18 Dose: 100 mg Documented by: Glucagon () 1 mg IM .X1 PRN PRN Reason: Hypoglycemia Hydrocortisone (Hytone) 1 applic TOPICAL BID PRN PRN; Protocol PRN Reason: ITCHING Hydroxyzine Pamoate (Vistaril Pamoate Capsule) 25 mg PO DAILY PRN PRN PRN Reason: ITCHING Insulin Glargine (Lantus (Bkc)) 24 units SC QHS [facility] Last Admin: 07/06/19 21:21 Dose: 24 units Documented by: Insulin Human Lispro (Humalog Kwikpen (Bkc)) 0 unit SC ACHS [facility]; Protocol Last Admin: 07/06/19 21:25 Dose: 4 units Documented by: Insulin Human Lispro (Humalog Kwikpen (Bkc)) 7 unit SC BREAKFAST [facility] Last Admin: 07/06/19 08:15 Dose: Not Given Documented by: Insulin Human Lispro (Humalog Kwikpen (Bkc)) 7 unit SC DINNER [facility] Last Admin: 07/06/19 17:26 Dose: 7 u Documented by: Insulin Human Lispro (Humalog Kwikpen (Bkc)) 7 unit SC QHS [facility] Last Admin: 07/06/19 21:24 Dose: 7 units Documented by: Isosorbide Mononitrate (Imdur) 30 mg PO DAILY [facility] Last Admin: 07/06/19 09:20 Dose: 30 mg Documented by: Latanoprost (Xalatan Opthalmic) 1 drop EACH EYE QHS [facility] Last Admin: 07/06/19 21:18 Dose: 1 drop Documented by: Loratadine (Claritin) 10 mg PO DAILY [facility] Last Admin: 07/06/19 09:19 Dose: 10 mg Documented by: Melatonin (Melatonin) 3 mg PO QHS PRN PRN PRN Reason: INSOMNIA Morphine Sulfate () 2 mg IV Q3H PRN PRN PRN Reason: Pain Score 6-10/10 Nutritional Formula (Lactose Free) (Glucerna Shake) 120 ml PO 4X/DAY [facility] Last Admin: 07/06/19 21:20 Dose: Not Given Documented by: Nystatin (Mycostatin Powder) 1 applic TOPICAL 4X/DAY [facility] Last Admin: 07/06/19 21:20 Dose: Not Given Documented by: Ondansetron HCl (Zofran) 4 mg IV Q8H PRN PRN PRN Reason: NAUSEA/VOMITING Pantoprazole Sodium (Protonix) 40 mg PO DAILY [facility] Last Admin: 07/06/19 09:20 Dose: 40 mg Documented by: Sodium Chloride () 10 - 40 ml IV UD PRN PRN Reason: SALINE FLUSH Last Admin: 07/06/19 17:35 Dose: 10 ml Documented by: Trazodone HCl (Desyrel) 25 mg PO QHS [facility] Last Admin: 07/06/19 21:19 Dose: 25 mg Documented by: STROKE Vital Signs/Narrative: Vital Signs Temp Pulse Resp BP Pulse Ox 07/07/19 03:20 97.7 F L 68 16 139/46 H 95 Medical Necessity - Tobacco Use Smoking Status: Former smoker Tobacco Use: Cigarettes Assessment/Plan All Active Problems Concussion (Resolved) CAP (community acquired pneumonia) (Resolved) Chest pain (Acute) Acute kidney injury (Acute) Patient is a 73-year-old lady with multiple comorbidities admitted with chest discomfort as well as lower extremity swelling Patient was supposed to undergo a nuclear stress test patient could not tolerate the procedure. 1. Chest pain ?UT was be ruled out with serial cardiac enzymes. Plan for patient to undergo a nuclear stress test was unsuccessful due to patient not being able to tolerate the procedure ?07/07/2019 repeat stress test ordered for 07/08/2018. 2. Acute congestive heart failure with ejection fraction ~Echo obtained on 06/21/2019 demonstrated EF of 60% patient placed on strict input and output fluid restriction as well as IV Lasix 3. Anemia ~Secondary to anemia of chronic disorder monitoring H&H with plans to transfuse if patient becomes symptomatic or hemoglobin falls below 7 ?07/07/2019: Hemoglobin 8.2, did request for iron studies as well as B12 level to guaiac all stools. 4. Hypertension ~Blood Pressure stable. Home medications continued. Doses adjusted as needed 5. Obstructive sleep apnea ~Patient is on CPAP at night 6. Acute kidney injury ~ Thought to be secondary to cardiorenal, edition patient is on potential nephrotoxic medications including nonsteroidal anti-inflammatory medications, lisinopril, suspected offending medications held. Due to anticipate improvement with diuretics ?: Patient kidney function did improve with diuresis. 6. Chronic kidney disease stage III secondary to diabetic nephropathy 7. Diabetes mellitus type II ~Complications including diabetic nephropathy. Placed on long acting insulin, Accu-Cheks a.c. and at bedtime and covered with sliding scale insulin 8. GERD ?Patient is on PPI 9. DVT prophylaxis ~ on enoxaparin, dose adjusted for kidney function Code Visit Inpatient E&M: 66875 Subs Hosp L2
[2019-07-07 08:31] LABS: Bedside Glucose 57 mg/dL (70-110)
[2019-07-07 08:46] LABS: Iron 43 ug/dL (50-170); Iron Binding Capacity,Total 221 ug/dL (250-450); PERCENT IRON SATURATION 19.5 % (15.0-55.0)
[2019-07-07] MEDS: Aspirin E.C. 81 MG Tablet PO (09:09)
[2019-07-07 09:16] LABS: Bedside Glucose 142 mg/dL (70-110)
[2019-07-07] MEDS: Loratadine 10 MG Tablet PO (10:19)
[2019-07-07] MEDS: Isosorbide Mononitrate 30 MG Tablet PO (10:19)
[2019-07-07] MEDS: Gabapentin 100 MG Capsule PO ×2 (10:19→21:13)
[2019-07-07] MEDS: amLODIPine 5 MG Tablet PO (10:19)
[2019-07-07] MEDS: Pantoprazole Sodium 40 MG Tablet PO (10:19)
[2019-07-07] MEDS: Famotidine 20 MG Tablet 40 MG PO ×2 (10:19→21:13)
[2019-07-07] MEDS: Furosemide 40 MG/4 ML Vial IV ×2 (10:19→17:24)
[2019-07-07] MEDS: 0.9% Saline Lock 10 ML Syringe IV ×2 (10:23→17:24)
[2019-07-07] MEDS: Insulin Lispro 100 UNIT/ML INSULN.PEN SC ×3 (11:35→21:11)
[2019-07-07 11:40] LABS: Bedside Glucose 269 mg/dL (70-110)
[2019-07-07] MEDS: Insulin Lispro 100 UNIT/ML INSULN.PEN 7 UNIT SC ×2 (17:18→21:11)
[2019-07-07 17:45] LABS: Bedside Glucose 240 mg/dL (70-110)
--- NOTE | 2019-07-07 18:09 | NURSING ---
Reviewed and agreed on all charting with Nino Su RN
[2019-07-07] MEDS: traZODone 50 MG Tablet 25 MG PO (21:12)
[2019-07-07] MEDS: Atorvastatin Calcium 10 MG Tablet PO (21:12)
[2019-07-07] MEDS: Latanoprost 0.005% 1 Bottle 1 DRP EACH EYE (21:13)
[2019-07-07 21:51] LABS: Bedside Glucose 234 mg/dL (70-110)
[2019-07-08 03:00] VITALS: BP 156/71; PULSE 77; PULSE 78; RESP 16; TEMP 36.7; O2SAT 94
--- NOTE | 2019-07-08 05:00 | EKG12_ITS ---
Test Reason : AM EKG Blood Pressure : / mmHG Vent. Rate : 074 BPM Atrial Rate : 074 BPM P-R Int : 130 ms QRS Dur : 084 ms QT Int : 396 ms P-R-T Axes : 053 052 052 degrees QTc Int : 439 ms Normal sinus rhythm Normal ECG Confirmed by ANGELA BOWMAN, SANTHOSH ([id number]), editorial specialist JERRI SONI ([id number]) on 07/10/2019 11:53:57 AM Referred By: DR BENNETT Confirmed By:SANTHOSH MILLER MD
[2019-07-08 05:34] LABS: Absolute Lymphocyte Count 2.49 X10^3/uL (0.83-4.51); Absolute Neutrophil Count 4.4 X10^3/uL (2.0-7.7); Basophil# 0.04 X10^3/uL; Basophil% 0.5 % (0-1); Eosinophil# 0.29 X10^3/uL; Eosinophils% 3.7 % (0-5); Hematocrit 25.9 % (37-47); Hemoglobin 8.6 g/dL (12.0-15.0); Lymphocyte # 2.49 X10^3/ul (4.0); Mean Corp Hgb Conc 33.2 g/dL (32-36); Mean Corpuscular Hgb 30.8 pg (27.0-32.0); Mean Corpuscular Volume 92.8 fL (81-99); Mean Platelet Vol. 10.2 fl (6.2-12.0); Monocyte# 0.52 X10^3/uL; Monocyte% 6.7 % (0-10); NRBC Flagged by Analyzer 0 % (0-5); Neutrophil # 4.42 X10^3/uL (2.7-7.7); Neutrophil % 56.8 % (47-70); Platelet Count 205 K/mm3 (150-450); RBC Distribution Width CV 13.3 % (11.6-14.6); RBC Distribution Width SD 44.6 fl (35.1-43.9); Red Blood Count 2.79 M/mm3 (4.2-5.4); White Blood Count 7.8 K/mm3 (4.4-11.0)
[2019-07-08 05:49] LABS: Anion Gap 4 (5-15); BUN 36 mg/dL (7-18); Calcium,Total 7.9 mg/dL (8.5-10.1); Chloride 105 mmol/L (98-107); EST Glomerular Filtration Rate 47 mL/min (>60); Est Glom Filt Rate - Afr Amer 57 mL/min (>60); Estimated Creatinine Clearance 31.51 ml/min; Glucose 154 mg/dL (74-106); Magnesium 1.6 mg/dL (1.6-2.6); Potassium 3.6 mmol/L (3.5-5.1); Sodium Level 141 mmol/L (136-145)
[2019-07-08] MEDS: Aspirin E.C. 81 MG Tablet PO (06:23)
[2019-07-08 06:31] LABS: Bedside Glucose 123 mg/dL (70-110)
[2019-07-08 07:22] VITALS: PULSE 72
[2019-07-08 08:00] VITALS: O2SAT 94
--- NOTE | 2019-07-08 09:30 | CASEMGMT ---
Readmission chart review: Pt was initially admitted 06/10-06/11/19 and 06/21-06/23/19 on [facility] for CAP. Pt was then readmitted on 07/06/19 for DEBBIE, chest pain. CXR shows improving pulmonary infiltrates, atelectasis, and pleural effusions. Pt with a negative stress today. Pt also has bilat leg edema and some dyspnea, with no evidence of DVT's. Pt's Bnpt is elevated at 285.8 upon arrival and serial trop's are negative. Pt's HGB is 8.7 upon arrival but it was 8.3 when discharged on 06/23/19. Pt does have chronic anemia and is not symptomatic at this time. CM to follow for any further discharge planning/needs that may arise. SStbradly RN CM
[2019-07-08 09:46] LABS: Vitamin B12 749 pg/mL (211-911)
--- NOTE | 2019-07-08 09:49 | STRESSREP ---
Stress Test Report Pharmacologic myocardial perfusion stress test. 73-year-old lady with a history of chest pain. Stress protocol: Resting KG demonstrates sinus rhythm with a rate of 75 bpm premature atrial complexes are noted. 0.5 mg of regadenoson was infused per usual protocol followed up intravenous and flush injection continuous quality assurance monitor body was performed. The patient maintained sinus rhythm throughout the recording. The maximum heart rate was 96 bpm which was 65% of maximum predicted heart rate the maximum workload was 1 metabolic equivalent. At rest there were nonspecific ST-T wave changes noted with no meet the criteria for ischemia. The resting blood pressures 158/70 final blood pressure was 148/60 mmHg. Myocardial perfusion protocol. 14.1 mCi of technetium 99m sestamibi was injected at rest. 0.4 mg of regadenoson was infused per usual protocol peak infusion 43.7 mCi of technetium 99m sestamibi was injected stress images were obtained stress and rest images are reconstructed and compared in the short axis vertical and horizontal long axis. Gated images were also obtained Perfusion SPECT analysis: Review of the stress images demonstrate normal uptake of tracer noted in all areas of the myocardium. There is mild anterior breast wall attenuation noted. The resting images demonstrate a similar pattern as well. No obvious reversibility is noted suggest ischemia. Gated SPECT analysis: The gated ejection fraction is noted to be 39%. Conclusion: Normal pharmacologic myocardial perfusion stress test. Preserved ejection fraction.
[2019-07-08 10:06] VITALS: BP 133/47; PULSE 75; RESP 14; TEMP 36.6; O2SAT 100
--- NOTE | 2019-07-08 10:48 | DCINST_ITS ---
- Discharge Diagnoses Current Active Problems: Current Active and Chronic Problems Chest pain (Acute) Acute kidney injury (Acute) You will use the following diet at home:: Cardiac Your food should be the consistency of: Regular Your liquids should be the consistency of: Regular/Thin Discharge Activity: Return to Normal Activity Weight Bearing Status: Weight bearing as tolerated Call your doctor if you observe: Shortness of breath, Swelling in the ankles, Chest pain Instructions: What Is Angina?, What Is Heart Failure?, Heart Failure: Warning Signs of a Flare-Up, Heart Failure: Tracking Your Weight, Taking Medications for Your Heart Allergies/Adverse Reactions: Allergies ciprofloxacin [From Cipro] Allergy (Verified 07/06/19 00:17) Rash codeine Allergy (Verified 07/06/19 00:17) Shortness of breath Penicillins Allergy (Verified 07/06/19 00:17) Hives CILLINS Allergy (Uncoded 07/06/19 00:17) Unknown Medications to take at Discharge Isosorbide Mononitrate [Isosorbide Mononitrate ER] 30 mg PO DAILY 04/10/15 Atorvastatin Calcium 10 mg PO QHS 05/03/18 Fluticasone 0.05% [Flonase Nasal Cameron] 2 spray NARES DAILY 05/03/18 Gabapentin [Neurontin] 200 mg PO BID 05/03/18 Latanoprost 0.005% [Xalatan Opthalmic] 1 drop EACH EYE QHS 05/03/18 Acetaminophen [Tylenol Tablet] 650 mg PO Q4H PRN PRN 06/17/18 Lisinopril 20 mg PO DAILY 06/21/18 Insulin Lispro [Humalog KwikPen] 10 unit SUBCUT TIDCM 06/10/19 Albuterol Inhaler [Ventolin Hfa] 1 - 2 puff INHALATION Q4H PRN PRN #1 inhaler 06/11/19 Cholecalciferol (Vitamin D3) [D3-50] 50,000 unit PO QMONTH 06/29/19 Famotidine 40 mg PO BID 06/29/19 Fexofenadine HCl 60 mg PO DAILY 06/29/19 Hydrocortisone 2.5% Crm [Hytone] 1 applic TOPICAL BID PRN PRN 06/29/19 Hydroxyzine Pamoate [Vistaril] 25 mg PO PRN PRN 06/29/19 Insulin Glargine [Lantus SoloStar Pen] 29 units SUBCUT QHS 06/29/19 Lactulose 30 gm PO DAILY 06/29/19 Nystatin 1 ea MC 4X/DAY 06/29/19 cycloBENZAPRine HCl [Flexeril] 5 mg PO TID PRN PRN 06/29/19 traZODone [Desyrel] 50 mg PO QHS 06/29/19 Albuterol Sulfate [Ventolin Hfa] 18 gm IH PRN PRN 07/06/19 Loratadine 10 mg PO DAILY 07/06/19 Pantoprazole Sodium [Protonix] 40 mg PO DAILY 07/06/19 Prednisone 10 mg PO UD 07/06/19 Furosemide [Lasix] 40 mg PO DAILY #30 tab 07/08/19 Metoprolol Tartrate 25 mg PO BID #60 tab 07/08/19 The following prescriptions were given: Furosemide [Lasix] 40 mg PO DAILY #30 tab Transmission Status: Pending to [facility] Metoprolol Tartrate 25 mg PO BID #60 tab Transmission Status: Pending to [facility] Primary Care Physician: Bailey Toribio MD [Primary Care Provider] - Please follow up with your Primary Care Physician in: one week Test Results: Test results from this visit will be discussed in further detail at your follow- up appointment, if applicable. Proposed Discharge Date: 07/08/19
--- NOTE | 2019-07-08 10:52 | PCM.DC.SUM ---
Discharge Date and Diagnosis Date of Admission: 07/06/19 Date of Discharge: 07/08/19 - Primary Discharge Diagnosis Active and Suspected Problems Chest pain (Acute) Acute kidney injury (Acute) acute HFpEF - Secondary Discharge Diagnosis Chronic Problems Seizure disorder (Chronic) Stroke (Chronic) Coronary artery disease (Chronic) Depression (Chronic) Bipolar disorder (Chronic) Multiple personality disorder (Chronic) Restless legs syndrome (Chronic) Rheumatoid arthritis (Chronic) Generalized anxiety disorder (Chronic) ELENITA on CPAP (Chronic) COPD (chronic obstructive pulmonary disease) (Chronic) Peripheral neuropathy (Chronic) Esophageal reflux (Chronic) Depressive disorder (Chronic) 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) Obesity (Chronic) Hypertension (Chronic) Diabetes type 2, uncontrolled (Chronic) Hyperglycemia (Chronic) Hyperlipidemia (Chronic) MRSA (Chronic) Cerebrovascular disease (Chronic) Status post acute ischemic stroke No residual deficit Diabetes mellitus (Chronic) Hospital Course and Treatment Imaging Results: 07/08/19 05:55 Nuclear Stress Test - Chemical [NM] AM (NON MEDS) Operations: None Procedures: 2-D Echocardiogram, Stress test Summary of Care Provided: The patient is a 73 year old F with a past medical history as listed which includes coronary artery disease, history of stroke and COPD as well as type 2 diabetes mellitus. He was admitted through the ED on 07/06/2019 with a complaint of severe left-sided chest pain which radiated to her shoulder. He had no aggravating or relieving factors and she had associated shortness of breath. She was admitted and managed for chest pain to rule out ACS. She was also found to have elevated BNP and was managed for acute heart failure with preserved ejection fraction. Troponins x3 were negative. She was started on Lasix IV and was also for strict input and output monitoring as well as fluid restriction. Patient initially could not tolerate the stress test and so it was aborted. Subsequently had a stress test on 07/08/2019. Must also be noted that patient had DEBBIE on admission with creatinine of 1.86 and this trended down to 1.2 at time of discharge. Patient also had mild anemia with hemoglobin of 8.7 which dropped to 8.2. Patient however remained stable and hemoglobin was 8.6 at time of discharge. Hemoglobin had been around 9-10 since 2018. Stress test done on 07/08/2019 was normal. Of note, patient had a 2D echo done on 06/21/2019 which showed EF of 60% with stage II diastolic dysfunction and no regional wall motion abnormalities noted. She remained stable and was discharged home on 07/08/2019. She is to follow up with her PCP within one week, and to be referred to a general surgeon for evaluation of her anemia on outpatient basis. Patient seen and examined prior to discharge. She felt well and had no complaints. Review of systems otherwise negative. Labs and vitals reviewed. Home medication reviewed and reconciled. o/e: Vital Signs Height 5 ft 1 in Weight: 182 lb 12.211 oz Weight in Pounds 182.8 lbs Pulse Ox 100 Temperature 97.8 F Pulse Rate 75 Respiratory Rate 14 Blood Pressure [BP] 154/78 Blood Pressure 133/47 Blood Pressure Position [BP] Sitting Blood Pressure Position Semi-Fowlers [] Of note, patient's amlodipine was stopped and she was started on p.o. metoprolol 25 mg twice daily on account of heart failure. She is to continue with her lisinopril. She is to go on p.o. Lasix 40 mg daily. - Physical Exam Vitals/I&O's: Vital Signs Temp Pulse Resp BP Pulse Ox 97.8 F 75 14 133/47 H 100 07/08/19 10:06 07/08/19 10:06 07/08/19 10:06 07/08/19 10:07/08/19 10:06 Oxygen Delivery Method Room Air Weight: 182 lb 12.211 oz Body Mass Index (BMI) 35.6 Finger Stick Blood Glucose 383 Intake and Output for Last 24 Hours 07/06/19 07/07/19 07/08/19 23:59 23:59 23:59 Intake Total 1630 / 1630 2090 / 2570 480 / 480 Output Total 3150 / 3150 900 / 900 Balance -1520 / -1520 1190 / 1670 480 / 480 General: Alert, Oriented x3, Cooperative, No apparent distress HEENT: Atraumatic, PERRLA, EOMI, Normocephalic Oral: Moist Mucosa Neck: Supple, No JVD, Negative Carotid Bruits Lungs: Clear to auscultation, Normal air movement, No rhonchi, No wheeze, No rales Cardiovascular: Regular rate, Regular Rhythm, Normal S1, Normal S2, No murmurs Abdomen: Bowel Sounds Present, Soft, Non Tender, Non-Distended, No Hepato-splenomegaly Extremities: No clubbing, No cyanosis, Capillary Refill Less than 3 Seconds, - - mild bipedal pitting edema Skin: No rashes, No breakdown Musculoskeletal: No Tenderness to Palpation of Joints or Extremities Lymphatic: No Cervical, Supraclavicular, or Inguinal Adenopathy Neurological: Cranial nerves II-XII grossly intact, Neuro grossly intact, Motor Exam 5/5 strength throughout Psych/Mental Status: Normal Affect, Appropriate, Alert and oriented to time, place, person, mood and affect Laboratory Results 07/07/19 08:08: Vitamin B12 749 07/07/19 11:31: POC Glucose 269 H 07/07/19 17:16: POC Glucose 240 H 07/07/19 21:09: POC Glucose 234 H 07/08/19 05:00: WBC 7.8, RBC 2.79 L, Hgb 8.6 L, Hct 25.9 L, MCV 92.8, MCH 30.8, MCHC 33.2, RDW Std Deviation 44.6 H, RDW Coeff of K[place] 13.3, Plt Count 205, MPV 10.2, Immature Gran % (Auto) 0.300, Neut % (Auto) 56.8, Lymph % (Auto) 32.0, [place] % (Auto) 6.7, Eos % (Auto) 3.7, Baso % (Auto) 0.5, Absolute Neuts (auto) 4.4, Absolute Lymphs (auto) 2.49, Nucleated RBC % 0 07/08/19 05:00: Sodium 141, Potassium 3.6, Chloride 105, Carbon Dioxide 32.0, Anion Gap 4 L, BUN 36 H, Creatinine 1.20 H, Estim Creat Clear Calc 31.51, Est GFR (MDRD) Af Amer 57 L, Est GFR (MDRD) Non-Af 47 L, BUN/Creatinine Ratio 30.0 H, Glucose 154 H, Calcium 7.9 L, Magnesium 1.6 07/08/19 06:22: POC Glucose 123 H Current Medications Acetaminophen (Tylenol) 650 mg PO Q6H PRN PRN PRN Reason: Pain Score 1-6/Temp > 100.7 F Last Admin: 07/06/19 11:16 Dose: 650 mg Documented by: Albuterol Sulfate (Ventolin Aerosols) 2.5 mg INHALATION Q2H PRN PRN PRN Reason: sob/wheezing Amlodipine Besylate (Norvasc) 5 mg PO DAILY [facility] Last Admin: 07/07/19 10:19 Dose: 5 mg Documented by: Aspirin (Ecotrin) 81 mg PO DAILY@0800 [facility] Last Admin: 07/08/19 06:23 Dose: 81 mg Documented by: Atorvastatin Calcium (Lipitor) 10 mg PO QHS [facility] Last Admin: 07/07/19 21:12 Dose: 10 mg Documented by: Enoxaparin Sodium (Lovenox) 30 mg SC DAILY [facility] Last Admin: 07/07/19 10:31 Dose: Not Given Documented by: Ergocalciferol (Vitamin D) 50,000 unit PO QMONTH [facility] Last Admin: 07/06/19 09:20 Dose: 50,000 unit Documented by: Famotidine (Pepcid) 40 mg PO BID [facility] Last Admin: 07/07/19 21:13 Dose: 40 mg Documented by: Fluticasone Propionate (Flonase Nasal [place]) 2 spray NASAL DAILY [facility] Last Admin: 07/07/19 10:20 Dose: Not Given Documented by: Furosemide (Lasix) 40 mg IV BID@1000,1800 [facility] Last Admin: 07/07/19 17:24 Dose: 40 mg Documented by: Gabapentin (Neurontin) 100 mg PO BID [facility] Last Admin: 07/07/19 21:13 Dose: 100 mg Documented by: Glucagon () 1 mg IM .X1 PRN PRN Reason: Hypoglycemia Hydrocortisone (Hytone) 1 applic TOPICAL BID PRN PRN; Protocol PRN Reason: ITCHING Hydroxyzine Pamoate (Vistaril Pamoate Capsule) 25 mg PO DAILY PRN PRN PRN Reason: ITCHING Insulin Glargine (Lantus (Bkc)) 24 units SC QHS [facility] Last Admin: 07/07/19 21:12 Dose: 24 units Documented by: Insulin Human Lispro (Humalog Kwikpen (Bkc)) 0 unit SC ACHS [facility]; Protocol Last Admin: 07/08/19 06:23 Dose: Not Given Documented by: Insulin Human Lispro (Humalog Kwikpen (Bkc)) 7 unit SC BREAKFAST [facility] Last Admin: 07/08/19 10:14 Dose: Not Given Documented by: Insulin Human Lispro (Humalog Kwikpen (Bkc)) 7 unit SC DINNER [facility] Last Admin: 07/07/19 17:18 Dose: 7 u Documented by: Insulin Human Lispro (Humalog Kwikpen (Bkc)) 7 unit SC QHS [facility] Last Admin: 07/07/19 21:11 Dose: 7 units Documented by: Isosorbide Mononitrate (Imdur) 30 mg PO DAILY [facility] Last Admin: 07/07/19 10:19 Dose: 30 mg Documented by: Latanoprost (Xalatan Opthalmic) 1 drop EACH EYE QHS [facility] Last Admin: 07/07/19 21:13 Dose: 1 drop Documented by: Loratadine (Claritin) 10 mg PO DAILY [facility] Last Admin: 07/07/19 10:19 Dose: 10 mg Documented by: Melatonin (Melatonin) 3 mg PO QHS PRN PRN PRN Reason: INSOMNIA Morphine Sulfate () 2 mg IV Q3H PRN PRN PRN Reason: Pain Score 6-10/10 Nutritional Formula (Lactose Free) (Glucerna Shake) 120 ml PO 4X/DAY [facility] Last Admin: 07/08/19 10:13 Dose: Not Given Documented by: Nystatin (Mycostatin Powder) 1 applic TOPICAL 4X/DAY [facility] Last Admin: 07/07/19 21:12 Dose: Not Given Documented by: Ondansetron HCl (Zofran) 4 mg IV Q8H PRN PRN PRN Reason: NAUSEA/VOMITING Pantoprazole Sodium (Protonix) 40 mg PO DAILY [facility] Last Admin: 07/07/19 10:19 Dose: 40 mg Documented by: Sodium Chloride () 10 - 40 ml IV UD PRN PRN Reason: SALINE FLUSH Last Admin: 07/07/19 17:24 Dose: 10 ml Documented by: Trazodone HCl (Desyrel) 25 mg PO QHS [facility] Last Admin: 07/07/19 21:12 Dose: 25 mg Documented by: Discharge Diet: Low fat/ Low Cholesterol Discharge Activity: Return to Normal Activity Weight Bearing Status: Weight bearing as tolerated Call your doctor if you observe: Shortness of breath, Swelling in the ankles, Chest pain Home Medications: Medications to take at Discharge Isosorbide Mononitrate [Isosorbide Mononitrate ER] 30 mg PO DAILY 04/10/15 Atorvastatin Calcium 10 mg PO QHS 05/03/18 Fluticasone 0.05% [Flonase Nasal [place]] 2 spray NARES DAILY 05/03/18 Gabapentin [Neurontin] 200 mg PO BID 05/03/18 Latanoprost 0.005% [Xalatan Opthalmic] 1 drop EACH EYE QHS 05/03/18 Acetaminophen [Tylenol Tablet] 650 mg PO Q4H PRN PRN 06/17/18 Lisinopril 20 mg PO DAILY 06/21/18 Insulin Lispro [Humalog KwikPen] 10 unit SUBCUT TIDCM 06/10/19 Albuterol Inhaler [Ventolin Hfa] 1 - 2 puff INHALATION Q4H PRN PRN #1 inhaler 06/11/19 Cholecalciferol (Vitamin D3) [D3-50] 50,000 unit PO QMONTH 06/29/19 Famotidine 40 mg PO BID 06/29/19 Fexofenadine HCl 60 mg PO DAILY 06/29/19 Hydrocortisone 2.5% Crm [Hytone] 1 applic TOPICAL BID PRN PRN 06/29/19 Hydroxyzine Pamoate [Vistaril] 25 mg PO PRN PRN 06/29/19 Insulin Glargine [Lantus SoloStar Pen] 29 units SUBCUT QHS 06/29/19 Lactulose 30 gm PO DAILY 06/29/19 Nystatin 1 ea MC 4X/DAY 06/29/19 cycloBENZAPRine HCl [Flexeril] 5 mg PO TID PRN PRN 06/29/19 traZODone [Desyrel] 50 mg PO QHS 06/29/19 Albuterol Sulfate [Ventolin Hfa] 18 gm IH PRN PRN 07/06/19 Loratadine 10 mg PO DAILY 07/06/19 Pantoprazole Sodium [Protonix] 40 mg PO DAILY 07/06/19 Prednisone 10 mg PO UD 07/06/19 Furosemide [Lasix] 40 mg PO DAILY #30 tab 07/08/19 Metoprolol Tartrate 25 mg PO BID #60 tab 07/08/19 Following Prescrptions Were Given to Patient: Furosemide [Lasix] 40 mg PO DAILY #30 tab Transmission Status: Received by [facility] Metoprolol Tartrate 25 mg PO BID #60 tab Transmission Status: Received by [facility] Primary Care Physician: Bailey Toribio MD [Primary Care Provider] - Please follow up with your Primary Care Physician in: one week Patient Instructions: What Is Angina?, What Is Heart Failure?, Heart Failure: Warning Signs of a Flare-Up, Heart Failure: Tracking Your Weight, Taking Medications for Your Heart Disposition: Home Minutes spent on discharge:: 40 Patient Condition:: Stable Medical Necessity - Tobacco Use Smoking Status: Former smoker Tobacco Use: Cigarettes Meaningful Use Info Meaningful Use Diagnoses (Choose all that apply): CHF - CHF ABENA/ARB ordered at discharge?: Yes Documented LVEF (%): 60 Code Visit Inpatient E&M: 29490 Disch Hosp
--- NOTE | 2019-07-09 15:39 | CASEMGMT ---
Case Management DC F/u Call DC Date: 07/08/2019 DC Diagnosis: Chest pain (Acute), Acute kidney injury (Acute), acute HFpEF DC Disposition: Home Lace/Strata: 13/10 Called patient cell phone on listed demographics, no answer, Voicemailbox has not been set up yet. Has a F/u appointment scheduled with Dr Toribio 07/12/2019 at 1105. Celio Huang RNCM
== END 2019-07-08 13:41 | disposition home or self-care (01) | DRG 682 ==
LOC: ED 00:55 → PCU 02:55
PROVIDERS: Internal Medicine; Admitting Provider Hospitalist; Emergency Provider Emergency Medicine; Family Provider Internal Medicine; PCP Internal Medicine; Visit Provider Student in an Organized Health Care Education/Training Program
DX: N17.9 Acute kidney failure, unspecified (principal); I13.0 Hypertensive heart and chronic kidney disease with heart failure and stage 1 through stage 4 chronic kidney disease, or unspecified chronic kidney disease; I50.31 Acute diastolic (congestive) heart failure; E11.65 Type 2 diabetes mellitus with hyperglycemia; E11.42 Type 2 diabetes mellitus with diabetic polyneuropathy; E11.21 Type 2 diabetes mellitus with diabetic nephropathy; E11.22 Type 2 diabetes mellitus with diabetic chronic kidney disease; N18.3 Chronic kidney disease, stage 3 (moderate); I25.10 Atherosclerotic heart disease of native coronary artery without angina pectoris; G40.909 Epilepsy, unspecified, not intractable, without status epilepticus; M06.9 Rheumatoid arthritis, unspecified; J44.9 Chronic obstructive pulmonary disease, unspecified; D63.8 Anemia in other chronic diseases classified elsewhere; E78.5 Hyperlipidemia, unspecified; G47.33 Obstructive sleep apnea (adult) (pediatric); G25.81 Restless legs syndrome; K21.9 Gastro-esophageal reflux disease without esophagitis; F31.9 Bipolar disorder, unspecified; F44.81 Dissociative identity disorder; F41.1 Generalized anxiety disorder; E66.09 Other obesity due to excess calories; Z68.35 Body mass index [BMI] 35.0-35.9, adult; Z79.4 Long term (current) use of insulin; Z79.1 Long term (current) use of non-steroidal anti-inflammatories (NSAID); Z79.52 Long term (current) use of systemic steroids; Z79.899 Other long term (current) drug therapy; Z86.73 Personal history of transient ischemic attack (TIA), and cerebral infarction without residual deficits; Z87.01 Personal history of pneumonia (recurrent); Z86.14 Personal history of Methicillin resistant Staphylococcus aureus infection; Z87.891 Personal history of nicotine dependence; Z90.710 Acquired absence of both cervix and uterus
CPT/HCPCS: 36415; 36600; 71045; 78452; 80048; 80061; 82607; 82803; 82962; 83540; 83550; 83735; 83880; 84484; 85025; 85610; 93005; 93017; 93970; 94667; 94668; 97116; 97161; 97165; 97530; 97535; 97802; 99283; 99406; A9500; J7030; A4216; J1940; J2405; J2785

== ENCOUNTER 2019-08-11 13:39 | Emergency (ER) | payer MEDICARE, MEDICAID, SELFPAY ==
[2019-07-06 03:00] VITALS: BMI 35.6
[2019-08-11 13:39] VITALS: BP 184/93; PULSE 87; RESP 16; TEMP 36.4; O2SAT 98; BMI 34.0
[2019-08-11] MEDS: Morphine 2 MG/ML Syringe IV (14:15)
[2019-08-11 14:22] LABS: Hemoglobin 9.7 g/dL (12.0-15.0); White Blood Count 7.1 K/mm3 (4.4-11.0)
[2019-08-11 14:23] LABS: Absolute Lymphocyte Count 0.86 X10^3/uL (0.83-4.51); Absolute Neutrophil Count 5.6 X10^3/uL (2.0-7.7); Basophil# 0.03 X10^3/uL; Basophil% 0.4 % (0-1); Eosinophil# 0.04 X10^3/uL; Eosinophils% 0.6 % (0-5); Hematocrit 29.4 % (37-47); Lymphocyte # 0.86 X10^3/ul (4.0); Lymphocyte % 12.1 % (19-41); Mean Corpuscular Hgb 30.3 pg (27.0-32.0); Mean Corpuscular Volume 91.9 fL (81-99); Mean Platelet Vol. 10.5 fl (6.2-12.0); Monocyte% 7.1 % (0-10); NRBC Flagged by Analyzer 0 % (0-5); Neutrophil # 5.63 X10^3/uL (2.7-7.7); Neutrophil % 79.5 % (47-70); Platelet Count 127 K/mm3 (150-450); RBC Distribution Width SD 43.5 fl (35.1-43.9)
[2019-08-11 14:39] LABS: Anion Gap 6 (5-15); BUN 24 mg/dL (7-18); Calcium,Total 8.4 mg/dL (8.5-10.1); Chloride 106 mmol/L (98-107); EST Glomerular Filtration Rate 34 mL/min (>60); Est Glom Filt Rate - Afr Amer 41 mL/min (>60); Estimated Creatinine Clearance 22.49 ml/min; Glucose 325 mg/dL (74-106); Potassium 3.8 mmol/L (3.5-5.1); Sodium Level 140 mmol/L (136-145)
--- NOTE | 2019-08-11 15:50 | ED.DCSUM_ITS ---
History of Present Illness Chief Complaint: Upper Extremity Injury Detail of Chief Complaint: Right upper extremity pain and lateral right chest pain, atraumatic Informant: Patient Onset: Days Context: Sudden Onset Timing: Continuous Quality: Pain, sharp Location: Right upper extremity, right axilla right anterior/lateral chest wall Current Severity: Severe Maximum Severity: Severe Worsened by: Movement Relieved by: Nothing Associated Symptoms: Shooting intermittent electrical pain Narrative: Patient is a 73-year-old woman with multiple medical problems which includes diabetes. She denies history of nephropathy. She is concerned she has a clot secondary to peripheral IV placed radial side of the popliteal fossa. She denies paresthesia, anesthesia motors. She denies fever, chills night sweats. She denies pleuritic chest pain or shortness of breath. There is no history of VTE. She denies weight gain or weight loss. She denies bone pain. There is no history of cancer. There is no GI symptoms. There is no swelling or discoloration of the right upper extremity. Prior similar symptoms: No Recent Illness/Hospitalization: No - Past Medical History (1) Acute kidney injury Status: Acute (2) Bipolar disorder Status: Chronic (3) COPD (chronic obstructive pulmonary disease) Status: Chronic (4) Cerebrovascular disease Status: Chronic Comment: Status post acute ischemic stroke No residual deficit (5) Coronary artery disease Status: Chronic (6) Depression Status: Chronic (7) Depressive disorder Status: Chronic (8) Diabetes type 2, uncontrolled Status: Chronic (9) Esophageal reflux Status: Chronic (10) Generalized anxiety disorder Status: Chronic (11) Hyperlipidemia Status: Chronic (12) ELENITA on CPAP Status: Chronic (13) Obesity Status: Chronic (14) Peripheral neuropathy Status: Chronic (15) Restless legs syndrome Status: Chronic (16) Rheumatoid arthritis Status: Chronic (17) Smoker Status: Inactive Past Medical History - Allergies and Home Meds Allergies/Adverse Reactions: Allergies ciprofloxacin [From Cipro] Allergy (Verified 08/11/19 13:44) Rash codeine Allergy (Verified 08/11/19 13:44) Shortness of breath Penicillins Allergy (Verified 08/11/19 13:44) Hives CILLINS Allergy (Uncoded 08/11/19 13:44) Unknown Primary Care Physician: Bailey Toribio MD [Primary Care Provider] - Prior records reviewed: Yes Surgical History: appendectomy, cataract, cholecystectomy, hysterectomy, tonsillectomy, - - Glaucoma, abdominal surgery for cyst. Lives: Spouse/ Significant Other Smoking Status: Former smoker Alcohol: None Drugs: None - Family History Maternal Family History: Reports: Cancer, Diabetes, Heart Disease, Hypertension Paternal Family History: Reports: Cancer, Heart Disease Review of Systems General: Denies: Chills, Fever, Malaise, Subjective, Sweats, Weight loss, - Eyes: Denies: Visual changes - bilaterally, Blurred Vision - bilaterally ENT: Denies: Bilateral ear pain, Rhinorrhea, Sore throat Cardiovascular: Reports: Chest pain. Denies: Palpitations, Heart racing Respiratory: Denies: Dyspnea, Cough, Sputum, Dyspnea on exertion, Orthopnea, Paroxysmal nocturnal dyspnea Gastrointestinal: Denies: Abdominal pain, Nausea, Vomiting, Diarrhea Musculoskeletal: Reports: Extremity Pain. Denies: Myalgias, Arthralgias, Neck pain, Back pain, Swelling, -, - Skin: Denies: Rash, Wounds Psych: Reports: Depression, Anxiety Hematologic: Denies: Easy bruising, Easy bleeding Physical Exam Vital Signs/Narrative: Vital Signs Temp Pulse Resp BP Pulse Ox 08/11/19 13:39 97.5 F L 87 16 184/93 H 98 Inital Vital Signs reviewed: Yes General: Well nourished, Well developed, Obese, Unkempt, No Acute Distress Head: Normocephalic, Atraumatic Eyes: Perrl, EOMI, Pale conjunctiva. Negative for: Scleral icterus ENT: Moist mucous membranes, No rhinorrhea, TM's clear Neck: Supple, Nontender, No lymphadenopathy Cardiovascular: Regular rate, Regular rhythm, No murmurs, Normal S1, Normal S2 Respiratory: No distress, CTA bilaterally, Chest nontender Abdomen: Soft, Nontender, Nondistended, Normal bowel sounds. Negative for: Hepatomegaly, Splenomegaly Extremities: No edema, Tenderness, - - There is pain to upper portion of tactile stimulus to the right upper extremity. There is no swelling, discoloration or asymmetry. Radial pulses palpable. Axillary, median, radial and ulnar nerve function intact. DTR symmetric. There is no bogginess or swelling of the wrist joint or interphalangeal joints. There is no rash noted.. Negative for: Nontender, Edema Skin: No rash, Pallor Neurological: Alert, Oriented x3, Cranial nerves II-XII grossly intact, Normal Strength, Normal Sensation, Normal DTR Psychological: Depressed Diagnostic/Tx/Re-eval - Medical Decision Making Was informed her history and physicals not consistent with a blood clot. Since patient has diabetes concerned this may represent diabetic neuropathy. She was treated with 2 mg of morphine. She had marked improvement. She is now able to move her right upper extremity. Since her work-up was unremarkable with the exception of an increase in creatinine from 1.2-1.6 will discharge with short course of opiate analgesia and instructed to follow-up with PCP. ED Disposition - Plan for ED Patient: Disposition: Home or Assisted Living Diagnosis: Right upper limb pain, Acute renal insufficiency Instructions: PAIN, Uncertain Cause (Acute) Prescriptions: Hydrocodone Bitart/Apap 5-325 [[place] 5MG-325MG] 1 tab PO Q6H PRN PRN 3 Days #10 tab PRN Reason: Pain Transmission Status: Sent to [facility] Referrals: Bailey Toribio MD [Primary Care Provider] - 3-5 Days if not improving Additional Instructions: Do not take ibuprofen or Aleve because you have renal insufficiency and may lead to renal failure.
== END 2019-08-11 16:10 | disposition home or self-care (01) ==
PROVIDERS: Emergency Provider Emergency Medicine; PCP Internal Medicine
DX: M79.601 Pain in right arm (principal); E11.40 Type 2 diabetes mellitus with diabetic neuropathy, unspecified; N28.9 Disorder of kidney and ureter, unspecified; R07.89 Other chest pain; J44.9 Chronic obstructive pulmonary disease, unspecified; I25.10 Atherosclerotic heart disease of native coronary artery without angina pectoris; M06.9 Rheumatoid arthritis, unspecified; E78.5 Hyperlipidemia, unspecified; G25.81 Restless legs syndrome; G47.33 Obstructive sleep apnea (adult) (pediatric); K21.9 Gastro-esophageal reflux disease without esophagitis; E66.9 Obesity, unspecified; F41.1 Generalized anxiety disorder; F31.9 Bipolar disorder, unspecified; Z79.4 Long term (current) use of insulin; Z79.52 Long term (current) use of systemic steroids; Z79.899 Other long term (current) drug therapy; Z88.1 Allergy status to other antibiotic agents; Z88.0 Allergy status to penicillin; Z87.891 Personal history of nicotine dependence; Z86.73 Personal history of transient ischemic attack (TIA), and cerebral infarction without residual deficits; Z90.710 Acquired absence of both cervix and uterus; Z90.49 Acquired absence of other specified parts of digestive tract
CPT/HCPCS: 80048; 85025; 96374; 99283; A4216

== ENCOUNTER 2019-09-06 13:58 | Inpatient (IN) | payer MEDICARE, MEDICAID, SELFPAY ==
[2019-09-06] VITALS (12 sets, daily range): BP systolic 151–205; BP diastolic 48–86; PULSE 62–82; RESP 15–21; TEMP 36.1–37; O2SAT 96–97; BMI 34.7; BMI 34.8; BMI 34.2
--- NOTE | 2019-09-06 15:04 | EKG12_ITS ---
Test Reason : SOB Blood Pressure : / mmHG Vent. Rate : 073 BPM Atrial Rate : 073 BPM P-R Int : 138 ms QRS Dur : 076 ms QT Int : 402 ms P-R-T Axes : 042 039 059 degrees QTc Int : 442 ms Normal sinus rhythm Normal ECG Confirmed by DUTCH BOWMAN, ANTONIA ([id number]), senior technical editor JERRI SONI ([id number]) on 09/09/2019 3:27:18 PM Referred By: MAGDA Confirmed By:ANTONIA JUDD MD
--- NOTE | 2019-09-06 15:10 | RAD_ITS ---
STUDY: X-RAY CHEST REASON FOR EXAM: Female, 73 years old. SOB. HX OF CHF TECHNIQUE: Single AP portable view of the chest. COMPARISON: Comparison is made with prior study dated July 06, 2019. FINDINGS: EKG electrodes are seen. There is evidence of vascular congestion and mild degree of CHF. There is no demonstrated pleural abnormality. Normal size heart. Normal mediastinum and elva. Normal visualized pulmonary arteries. There is atherosclerotic calcification of the aortic arch with tortuosity. There are diffuse degenerative changes of the visualized thoracic spine. Normal visualized ribs, clavicles, and shoulders. There is no demonstrated abnormality of the visualized soft tissue structures of the upper abdomen. RAD/Chest 1 View (Portable) IMPRESSION: Vascular congestion and mild degree of CHF. Electronically Signed: Baljeet Chen, at 15:23 EST , Service support ,
[2019-09-06 15:15] LABS: Mucous, Urine 0 SEEN /hpf (<or=2+); White Blood Cells 0 SEEN /hpf (0-5)
--- NOTE | 2019-09-06 15:16 | ED.VIS.DYS ---
History of Present Illness Chief Complaint: Shortness of Breath Informant: Patient, EMS Onset: Today Associated Symptoms: Cough, Yellow sputum. Negative for: Fever Chest Pain: Tightness Narrative: Patient is a 73-year-old female with history of CHF presenting with shortness of breath. Patient states she had worsening swelling of her lower legs for the past few days. States she is a history of CHF exacerbations and this feels like this. She states that she has some chest tightness but denies any wheezing, fever or chest pain. She denies any nausea, vomiting, sweating or chills. States she has had a productive cough for the past few days. She states her bowel movements have been normal. It seems that about an hour prior to arrival patient suddenly started felt very short of breath which is why she called 911 and was brought here. Also since yesterday she is had irritation in her vaginal/perineal area with burning. She states she is also urinary frequency and urgency. She has appointment to see a new funeral car driver in the [place] but has not seen one yet. Echocardiogram from 06/21/19 shows an EF of 60% and stage II diastolic dysfunction. Past Medical History - Allergies and Home Meds Allergies/Adverse Reactions: Allergies ciprofloxacin [From Cipro] Allergy (Verified 08/11/19 13:44) Rash codeine Allergy (Verified 08/11/19 13:44) Shortness of breath Penicillins Allergy (Verified 08/11/19 13:44) Hives CILLINS Allergy (Uncoded 08/11/19 13:44) Unknown Primary Care Physician: Bailey Toribio MD [Primary Care Provider] - Past Medical History: - - Anxiety, bipolar disorder, depression, seizure disorder, COPD, ELENITA, diabetes mellitus type 2, hypertension, hyperlipidemia Surgical History: appendectomy, cataract, cholecystectomy, hysterectomy, tonsillectomy, - - Glaucoma, abdominal surgery for cyst. Smoking Status: Current every day smoker - Family History Maternal Family History: Reports: Cancer, Diabetes, Heart Disease, Hypertension Paternal Family History: Reports: Cancer, Heart Disease Review of Systems General: Denies: Chills, Fever, Sweats Eyes: Denies: Visual changes - bilaterally, Diplopia ENT: Denies: Rhinorrhea, Sore throat Cardiovascular: Denies: Chest pain, Palpitations, Heart racing Respiratory: Reports: Dyspnea, Cough, Sputum. Denies: Dyspnea on exertion Gastrointestinal: Denies: Abdominal pain, Nausea, Vomiting, Diarrhea, Melena, Hematochezia Genitourinary: Denies: Dysuria, Hematuria, Frequency Musculoskeletal: Reports: Swelling - lower legs. Denies: Back pain, Extremity Pain Skin: Denies: Rash, Wounds Neurological: Denies: Headache, Weakness, Numbness Physical Exam Vital Signs/Narrative: Vital Signs Temp Pulse Resp BP Pulse Ox 09/06/19 13:59 97.8 F 77 15 191/85 H 97 Inital Vital Signs reviewed: Yes General: Well nourished, Well developed, No Acute Distress Head: Normocephalic, Atraumatic Eyes: Perrl, EOMI ENT: Moist mucous membranes, No rhinorrhea Neck: Supple, Nontender, No JVD Cardiovascular: Regular rate, Regular rhythm, No murmurs Respiratory: No distress, Chest nontender, Diminished - bases. Negative for: Rhonchi, Wheezing, Decreased Air Movement, Chest tenderness Abdomen: Soft, Nontender, Nondistended, Normal bowel sounds Back: Nontender, Normal Inspection Extremities: Nontender, No edema. Negative for: Edema Skin: Normal color, No rash Neurological: Alert, Oriented x3, Cranial nerves II-XII grossly intact, Normal Strength, Normal Sensation Psychological: Normal affect, Normal Mood Diagnostic/Tx/Re-eval Chest X-Ray - ED: 1 View, Read by ED Physician, Read by Radiologist, Cardiomegaly, CHF Clinical Impression(s) from Imaging Studies Chest X-Ray 09/06/19 15:10 IMPRESSION: Vascular congestion and mild degree of CHF. Electronically Signed: Baljeet Chen, at 15:23 EST , Service support , Laboratory Data 09/06/19 09/06/19 09/06/19 15:10 15:25 15:25 WBC 5.6 RBC 3.30 L Hgb 9.9 L Hct 30.2 L MCV 91.5 MCH 30.0 MCHC 32.8 RDW Std Deviation 46.1 H RDW Coeff of Kusum 13.9 Plt Count 129 L MPV 11.2 Immature Gran % (Auto) 0.200 Neut % (Auto) 71.4 H Lymph % (Auto) 21.2 [place] % (Auto) 5.3 Eos % (Auto) 1.2 Baso % (Auto) 0.7 Absolute Neuts (auto) 4.0 Absolute Lymphs (auto) 1.19 Nucleated RBC % 0 Sodium 136 Potassium 4.5 Chloride 103 Carbon Dioxide 27.0 Anion Gap 6 BUN 31 H Creatinine 1.51 H Estim Creat Clear Calc 23.83 Est GFR (MDRD) Af Amer 43 L Est GFR (MDRD) Non-Af 36 L BUN/Creatinine Ratio 20.5 H Glucose 632 H* Calcium 8.8 Troponin I 0.028 B-Natriuretic Peptide Urine Color Straw Urine Clarity Clear Urine pH 6.5 Ur Specific [place] 1.010 Urine Protein 100 H Urine Glucose (UA) 1000 H Urine Ketones Negative Urine Occult Blood 50 H Urine Nitrite Negative Urine Bilirubin Negative Urine Urobilinogen Normal Ur Leukocyte Esterase Negative Urine RBC 0-5 SEEN Urine WBC 0 SEEN Ur Squamous Epith Cells 0-5 SEEN Urine Bacteria RARE Urine Mucus 0 SEEN 09/06/19 15:25 WBC RBC Hgb Hct MCV MCH MCHC RDW Std Deviation RDW Coeff of Kusum Plt Count MPV Immature Gran % (Auto) Neut % (Auto) Lymph % (Auto) [place] % (Auto) Eos % (Auto) Baso % (Auto) Absolute Neuts (auto) Absolute Lymphs (auto) Nucleated RBC % Sodium Potassium Chloride Carbon Dioxide Anion Gap BUN Creatinine Estim Creat Clear Calc Est GFR (MDRD) Af Amer Est GFR (MDRD) Non-Af BUN/Creatinine Ratio Glucose Calcium Troponin I B-Natriuretic Peptide 704.4 H Urine Color Urine Clarity Urine pH Ur Specific [place] Urine Protein Urine Glucose (UA) Urine Ketones Urine Occult Blood Urine Nitrite Urine Bilirubin Urine Urobilinogen Ur Leukocyte Esterase Urine RBC Urine WBC Ur Squamous Epith Cells Urine Bacteria Urine Mucus - Rhythm Strip Rhythm Strip: Sinus Rhythm Rate: 73 Ectopy: None - EKG Initial EKG Interpretation: Sinus Rhythm, - - Sinus rhythm at a rate of 73Normal axisNormal intervalsNormal ST segmentsPrior to prior EKG on 07/08/2019 patient does not have any changes - Medical Decision Making Patient is evaluated for worsening shortness of breath and lower extremity swelling. She does not have any significant lower extremity edema on my evaluation. Patient is not hypoxic however she was given a breathing treatment prior to arrival. Not wheezing on my exam. Patient was hyperglycemic at 505 per EMS. Patient's chest x-ray does show some pulmonary vascular congestion and her proBNP is more than doubled her baseline. Patient's creatinine is elevated but at her baseline. In addition patient has an elevated blood glucose at 630 however she has a normal anion gap. I did add on an acetone level but I do not think she is in DKA. I do not think patient's blood glucose is high enough for HH NK. Patient admits that she has not been checking her blood sugar for the past 2 weeks because she lost her glucometer. Patient does not wear home oxygen. I am concerned that patient will not be able to treat her hyperglycemia at home with her insulin as well as her CHF outpatient. Therefore she will be admitted to the hospital. Patient be admitted for further evaluation of her hyperglycemia as well as management of her fluid that is. She is agreeable to this plan. Case discussed with admitting physician, Dr. Hartley who put the patient in for observation. He recommends giving the patient 20 units of subcu insulin. He will order Lasix on the floor. ED Disposition - Plan for ED Patient: Disposition: Acute Care [facility] Diagnosis: Acute exacerbation of CHF (congestive heart failure), Hyperglycemia Referrals: Bailey Toribio MD [Primary Care Provider] -
[2019-09-06 15:18] LABS: Color, Urine Straw (Yellow); Glucose, Dipstick 1000 mg/dl (Normal); Ketone-Dipstick Negative (Negative); Leukocyte Esterase-Dipstick Negative /ul (Negative); Nitrite-Dipstick Negative (Negative); Occult Blood-Urine 50 /ul (Negative); Protein-Dipstick 100 mg/dl (Negative); Urine Bilirubin Dipstick Negative (Negative); Urine Clarity Clear (Clear); Urine Urobilinogen Normal (Normal); Urine pH 6.5 (5.0 - 8.0)
[2019-09-06 15:26] LABS: Bacteria RARE /hpf (None Seen); Red Blood Cells-Urine 0-5 SEEN /hpf (0-5); Squamous Epithelial Cells - UA 0-5 SEEN /hpf (5-10)
[2019-09-06 15:32] LABS: Absolute Lymphocyte Count 1.19 X10^3/uL (0.83-4.51); Basophil# 0.04 X10^3/uL; Basophil% 0.7 % (0-1); Eosinophil# 0.07 X10^3/uL; Eosinophils% 1.2 % (0-5); Hematocrit 30.2 % (37-47); Hemoglobin 9.9 g/dL (12.0-15.0); Lymphocyte # 1.19 X10^3/ul (4.0); Lymphocyte % 21.2 % (19-41); Mean Corp Hgb Conc 32.8 g/dL (32-36); Mean Corpuscular Volume 91.5 fL (81-99); Mean Platelet Vol. 11.2 fl (6.2-12.0); Monocyte% 5.3 % (0-10); NRBC Flagged by Analyzer 0 % (0-5); Neutrophil # 4.01 X10^3/uL (2.7-7.7); Neutrophil % 71.4 % (47-70); Platelet Count 129 K/mm3 (150-450); RBC Distribution Width CV 13.9 % (11.6-14.6); RBC Distribution Width SD 46.1 fl (35.1-43.9); White Blood Count 5.6 K/mm3 (4.4-11.0)
[2019-09-06 15:50] LABS: BNP,B-Type NATRIURETIC PEPTIDE 704.4 pg/mL (0-100)
[2019-09-06 16:01] LABS: Anion Gap 6 (5-15); BUN 31 mg/dL (7-18); BUN/Creat Ratio 20.5 RATIO (10-20); Calcium,Total 8.8 mg/dL (8.5-10.1); Chloride 103 mmol/L (98-107); Creatinine, Serum 1.51 mg/dL (0.55-1.02); EST Glomerular Filtration Rate 36 mL/min (>60); Est Glom Filt Rate - Afr Amer 43 mL/min (>60); Estimated Creatinine Clearance 23.83 ml/min; Glucose 632 mg/dL (74-106); Potassium 4.5 mmol/L (3.5-5.1); Sodium Level 136 mmol/L (136-145)
--- NOTE | 2019-09-06 16:35 | NURSING ---
126 CHARLES HYPERGLYCEMIA, CHF EXAC OBS
[2019-09-06] MEDS: Insulin Lispro 100 UNIT/ML INSULN.PEN 20 UNIT SC (16:41)
--- NOTE | 2019-09-06 16:45 | PCM.HP.STD ---
Problem List (1) Acute exacerbation of CHF (congestive heart failure) Status: Chronic (2) Hyperglycemia Status: Acute (3) Bipolar disorder Status: Chronic (4) COPD (chronic obstructive pulmonary disease) Status: Chronic (5) Diabetes mellitus Status: Chronic (6) Esophageal reflux Status: Chronic Qualifiers: (7) Hyperlipidemia Status: Chronic (8) Hypertension Status: Chronic (9) Morbid obesity with BMI of 40.0-44.9, adult Status: Inactive (10) Tobacco abuse Status: Inactive (11) ELENITA (obstructive sleep apnea) Status: Chronic History of Present Illness Date of Admission: 09/06/19 Chief Complaint: SOB The patient is a 73 year old F with pmhx of diastolic CHF, Dmt2, obesity, ELENITA, CAD, MDS, HTN, HLD, CVA, GERD, COPD, bipolar, multiple personality disorder, seizure disorder who presented to the ER with c/o SOB. This began suddenly today. She has been in her usual state of health until today. She has associated LE edema. She has no CP, cough, fever, chills, palp, LH/dizziness. In the ER she was not hypoxic on room air, but has evidence of acute CHF, seveerly elevated blood pressure, and severe hyperglycemia. She has had multiple admissions for CHF. She had a recent echo in 06/2019 with preserved EF. [] Past Medical History Past Medical History (Chronic Problems): Chronic Problems Seizure disorder (Chronic) Stroke (Chronic) Coronary artery disease (Chronic) Depression (Chronic) Bipolar disorder (Chronic) Multiple personality disorder (Chronic) Restless legs syndrome (Chronic) Rheumatoid arthritis (Chronic) Generalized anxiety disorder (Chronic) Acute exacerbation of CHF (congestive heart failure) (Chronic) ELENITA (obstructive sleep apnea) (Chronic) ELENITA on CPAP (Chronic) COPD (chronic obstructive pulmonary disease) (Chronic) Peripheral neuropathy (Chronic) Esophageal reflux (Chronic) Depressive disorder (Chronic) 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) Obesity (Chronic) Hypertension (Chronic) Diabetes type 2, uncontrolled (Chronic) Hyperlipidemia (Chronic) MRSA (Chronic) Cerebrovascular disease (Chronic) Status post acute ischemic stroke No residual deficit Diabetes mellitus (Chronic) Allergies ciprofloxacin [From Cipro] Allergy (Verified 08/11/19 13:44) Rash codeine Allergy (Verified 08/11/19 13:44) Shortness of breath Penicillins Allergy (Verified 08/11/19 13:44) Hives CILLINS Allergy (Uncoded 08/11/19 13:44) Unknown Home Medications: Ambulatory Orders Medication Instructions Recorded Isosorbide Mononitrate [Isosorbide 30 mg PO DAILY 04/10/15 Mononitrate ER] Atorvastatin Calcium 10 mg PO QHS 05/03/18 Fluticasone 0.05% [Flonase Nasal 2 spray NARES DAILY 05/03/18 [place]] Gabapentin [Neurontin] 200 mg PO BID 05/03/18 Latanoprost 0.005% [Xalatan 1 drop EACH EYE QHS 05/03/18 Opthalmic] Acetaminophen [Tylenol Tablet] 650 mg PO Q4H PRN PRN 06/17/18 Lisinopril 20 mg PO DAILY 06/21/18 Insulin Lispro [Humalog KwikPen] 10 unit SUBCUT TIDCM 06/10/19 Albuterol Inhaler [Ventolin Hfa] 1 - 2 puff INHALATION Q4H PRN PRN 06/11/19 #1 inhaler Cholecalciferol (Vitamin D3) 50,000 unit PO QMONTH 06/29/19 [D3-50] Famotidine 40 mg PO BID 06/29/19 Fexofenadine HCl 60 mg PO DAILY 06/29/19 Hydrocortisone 2.5% Crm [Hytone] 1 applic TOPICAL BID PRN PRN 06/29/19 Hydroxyzine Pamoate [Vistaril] 25 mg PO PRN PRN 06/29/19 Insulin Glargine [Lantus SoloStar 29 units SUBCUT QHS 06/29/19 Pen] Lactulose 30 gm PO DAILY 06/29/19 Nystatin 1 ea MC 4X/DAY 06/29/19 cycloBENZAPRine HCl [Flexeril] 5 mg PO TID PRN PRN 06/29/19 traZODone [Desyrel] 50 mg PO QHS 06/29/19 Albuterol Sulfate [Ventolin Hfa] 18 gm IH PRN PRN 07/06/19 Loratadine 10 mg PO DAILY 07/06/19 Pantoprazole Sodium [Protonix] 40 mg PO DAILY 07/06/19 Prednisone 10 mg PO UD 07/06/19 Furosemide [Lasix] 40 mg PO DAILY #30 tab 07/08/19 Metoprolol Tartrate 25 mg PO BID #60 tab 07/08/19 Surgical History: appendectomy, cataract, cholecystectomy, hysterectomy, tonsillectomy, - - Glaucoma, abdominal surgery for cyst. Psychiatric History: Anxiety, Bipolar, Depression, - - Multiple personality disorder. 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 Denies: Chest Pain, Chest Pressure, Chest Tightness, Heaviness, Light Headedness, Palpitations Respiratory: Reports: Shortness of Breath, Shortness of breath upon exertion. Denies: Cough, Shortness of breath at rest, Sputum production, Wheezing Gastrointestinal: Denies: Abdominal Pain, Nausea, Vomiting Genitourinary: Denies: Dysuria Musculoskeletal: Denies: Joint Pain, Joint Tenderness Skin: Denies: Rash, Wounds Neurological: Denies: Numbness, Tingling, Focal weakness Psychiatric: Denies: Anxiety, Depression, Homicidal Ideations, Suicidal Ideations Hematologic/ Lymphatic: Denies: Easy Bruising, Easy Bleeding VTE Information - Inpt Only VTE Present on Admission: No VTE Mechan Device Prophylaxis: None VTE Pharm Prophylaxis ordered?: Yes Patient Problems: Active and Suspected Problems Hyperglycemia (Acute) - Physical Exam Vitals/I&O's: Vital Signs Temp Pulse Resp BP Pulse Ox 98.6 F 77 18 193/76 H 96 09/06/19 15:37 09/06/19 15:37 09/06/19 15:37 09/06/19 15:37 09/06/19 15:37 Oxygen Delivery Method Room Air Weight: 178 lb Body Mass Index (BMI) 34.7 Finger Stick Blood Glucose 383 General: Alert, Oriented x3, Cooperative HEENT: Atraumatic, PERRLA, EOMI, Normocephalic Neck: Supple, No JVD, Negative Carotid Bruits Lungs: Normal air movement, Rales Cardiovascular: Regular rate, No murmurs Abdomen: Bowel Sounds Present, Soft, Non Tender Extremities: Capillary Refill Less than 3 Seconds, Edema - 3+ pitting edema BLE Skin: No rashes, No breakdown Musculoskeletal: No Tenderness to Palpation of Joints or Extremities Neurological: Cranial nerves II-XII grossly intact Psych/Mental Status: Flat Affect, Alert and oriented to time, place, person, mood and affect Microbiology Past 72 Hours 09/06/19 15:40 Mucosa - Nasopharyngeal Influenza Types A,B Direct FA (ANTONIO) - Final Laboratory Results 09/06/19 15:10: Urine Color Straw, Urine Clarity Clear, Urine pH 6.5, Ur Specific [place] 1.010, Urine Protein 100 H, Urine Glucose (UA) 1000 H, Urine Ketones Negative, Urine Occult Blood 50 H, Urine Nitrite Negative, Urine Bilirubin Negative, Urine Urobilinogen Normal, Ur Leukocyte Esterase Negative, Urine RBC 0-5 SEEN, Urine WBC 0 SEEN, Ur Squamous Epith Cells 0-5 SEEN, Urine Bacteria RARE, Urine Mucus 0 SEEN 09/06/19 15:25: WBC 5.6, RBC 3.30 L, Hgb 9.9 L, Hct 30.2 L, MCV 91.5, MCH 30.0, MCHC 32.8, RDW Std Deviation 46.1 H, RDW Coeff of Kusum 13.9, Plt Count 129 L, MPV 11.2, Immature Gran % (Auto) 0.200, Neut % (Auto) 71.4 H, Lymph % (Auto) 21.2, [place] % (Auto) 5.3, Eos % (Auto) 1.2, Baso % (Auto) 0.7, Absolute Neuts (auto) 4.0, Absolute Lymphs (auto) 1.19, Nucleated RBC % 0 09/06/19 15:25: Sodium 136, Potassium 4.5, Chloride 103, Carbon Dioxide 27.0, Anion Gap 6, BUN 31 H, Creatinine 1.51 H, Estim Creat Clear Calc 23.83, Est GFR (MDRD) Af Amer 43 L, Est GFR (MDRD) Non-Af 36 L, BUN/Creatinine Ratio 20.5 H, Glucose 632 H*, Calcium 8.8, Troponin I 0.028 09/06/19 15:25: B-Natriuretic Peptide 704.4 H Assessment/Plan All Active Problems Concussion (Resolved) CAP (community acquired pneumonia) (Resolved) Chest pain (Acute) Acute kidney injury (Acute) Hyperglycemia (Acute) 1. Acute on chronic diastolic CHF exacerbation, 2/2 htn emergency - start IV lasix, IV hydralazine, resume home meds unclear if she is taking. Fluid restrict, I/Os, sodium restrict, BAENA wrap BL LE. Not on o2. Trop neg. Last echo in 06/2019, defer repeat, preserved EF. BNP 704. 2. DMt2 with hyperglycemia - I am suspicious that she is not using her home insulin. She lost her glucometer and has not been checking her sugars. Resume home insulins, SSI, given insulin. urine with no ketones, gap is normal. Acetone pending. 3. MDS - follows Dr. Cabrera. mild anemia, mild thrombocytopenia. f/u as outpatient. 4. Tobacco abuse - patch 5. ELENITA - her CPAP machine was taken away and she was told she needs a repeat sleep study. 6. GERD - ppi 7. COPD - no exacerbation - prn aerosols, IS. 8. Hx depression, anxiety, bipolar, multiple personality disorder - only home psychiatric med listed is trazodone 9. Hx CVA - statin. DVT ppx: heparin, trend platelets DC planning: PTOT. This patient was seen by Sarmad Fonseca PA-C under the supervision of Dr. Cameron
[2019-09-06] MEDS: hydrALAZINE 20 MG/ML Vial 10 MG IV (17:45)
[2019-09-06] MEDS: 0.9% Saline Lock 10 ML Syringe IV ×3 (17:45→23:50)
[2019-09-06 17:56] LABS: Bedside Glucose > 500 mg/dL (70-110)
[2019-09-06] MEDS: Insulin Lispro 100 UNIT/ML INSULN.PEN 16 UNIT SC (18:22)
[2019-09-06 19:10] LABS: Glucose 538 mg/dL (74-106)
[2019-09-06 19:21] LABS: Bedside Glucose > 500 mg/dL (70-110)
[2019-09-06] MEDS: Insulin Lispro 100 UNIT/ML INSULN.PEN 25 UNIT SC (19:46)
[2019-09-06] MEDS: Furosemide 40 MG/4 ML Vial IV (19:50)
[2019-09-06 19:51] LABS: Glucose 497 mg/dL (74-106)
[2019-09-06] MEDS: Acetaminophen 325 MG Tablet 650 MG PO (21:46)
[2019-09-06 22:05] LABS: Magnesium 1.7 mg/dL (1.6-2.6)
[2019-09-06] MEDS: Atorvastatin Calcium 10 MG Tablet PO (22:36)
[2019-09-06] MEDS: traZODone 50 MG Tablet 25 MG PO (22:36)
[2019-09-06] MEDS: Metoprolol Tartrate 25 MG Tablet PO (22:36)
[2019-09-06] MEDS: Heparin Injection (Vial) 5,000 UNIT/ML VIAL 5000 UNIT SC (22:38)
[2019-09-06] MEDS: Nystatin Powder 15gm Bottle 1 APPLIC TOPICAL (22:39)
[2019-09-06 22:56] LABS: Bedside Glucose 105 mg/dL (70-110)
--- NOTE | 2019-09-06 23:03 | NURSING ---
Helping ERICA Allen with pt. at this time. Watching pt. while pt. sits up in bed, dangling feet, helping with leg cramps. Pt. felt sugar was low. Pt. skin felt clammy, pt. felt weak. Was just given PM Lantus for BG 105. Pt. now drank 2 oz of apple juice and eating pack of Codi Doone cookies. Also drinking 4 oz milk. Pt. states she is feeling better now.
[2019-09-07] VITALS (11 sets, daily range): BP systolic 131–175; BP diastolic 37–68; PULSE 60–74; RESP 13–18; TEMP 36.3–37.1; O2SAT 96–100
[2019-09-07 02:16] LABS: Bedside Glucose 59 mg/dL (70-110)
[2019-09-07 02:41] LABS: Bedside Glucose 118 mg/dL (70-110)
--- NOTE | 2019-09-07 05:50 | RAD_ITS ---
STUDY: X-RAY CHEST REASON FOR EXAM: Female, 73 years old. CHF EXACERBATION -- HYPERGLYCEMIA TECHNIQUE: PA and lateral views of the chest. COMPARISON: 09/06/2019 FINDINGS: Reticular opacity of the left lung base/lingula with obscuration of left costophrenic angle is new since the prior study. There is also trace blunting the right costophrenic angle. Normal size heart. Normal mediastinum and elva. Normal visualized pulmonary arteries. There is atherosclerotic calcification of the aortic arch with tortuosity. There is demineralization of the osseous structures. Normal visualized ribs, clavicles, and shoulders. There is no demonstrated abnormality of the visualized soft tissue structures of the upper abdomen. RAD/Chest PA and Lateral IMPRESSION: Lingular pneumonia or atelectasis, new. Trace bilateral pleural effusions, new. Electronically Signed: Chuck Uribe MD ([place]) at 16:21 EST , Service support ,
[2019-09-07] MEDS: 0.9% Saline Lock 10 ML Syringe IV (06:13)
[2019-09-07] MEDS: Heparin Injection (Vial) 5,000 UNIT/ML VIAL 5000 UNIT SC ×3 (06:13→21:35)
[2019-09-07] MEDS: Furosemide 40 MG/4 ML Vial IV ×2 (06:14→17:16)
[2019-09-07] MEDS: Gabapentin 100 MG Capsule 200 MG PO ×2 (07:46→16:27)
[2019-09-07] MEDS: Insulin Lispro 100 UNIT/ML INSULN.PEN 16 UNIT SC ×3 (07:46→16:28)
[2019-09-07] MEDS: Insulin Lispro 100 UNIT/ML INSULN.PEN SC (07:46)
[2019-09-07 08:25] LABS: Bedside Glucose 204 mg/dL (70-110)
[2019-09-07 08:30] LABS: Anion Gap 7 (5-15); BUN 29 mg/dL (7-18); Calcium,Total 8.4 mg/dL (8.5-10.1); Chloride 105 mmol/L (98-107); Creatinine, Serum 1.21 mg/dL (0.55-1.02); EST Glomerular Filtration Rate 46 mL/min (>60); Est Glom Filt Rate - Afr Amer 56 mL/min (>60); Estimated Creatinine Clearance 29.74 ml/min; Glucose 193 mg/dL (74-106); Potassium 3.7 mmol/L (3.5-5.1); Sodium Level 139 mmol/L (136-145)
[2019-09-07] MEDS: Nystatin Powder 15gm Bottle 1 APPLIC TOPICAL (11:02)
[2019-09-07] MEDS: Isosorbide Mononitrate 30 MG Tablet PO (11:08)
[2019-09-07] MEDS: Pantoprazole Sodium 40 MG Tablet PO (11:08)
[2019-09-07] MEDS: Lisinopril 20 MG Tablet PO (11:08)
[2019-09-07] MEDS: amLODIPine 5 MG Tablet PO ×2 (11:08→13:55)
[2019-09-07] MEDS: Metoprolol Tartrate 25 MG Tablet PO ×2 (11:09→21:35)
[2019-09-07] MEDS: Magnesium Hydroxide 30 ML UDC PO (11:19)
[2019-09-07 11:35] LABS: Bedside Glucose 123 mg/dL (70-110)
--- NOTE | 2019-09-07 12:51 | CM.UR ---
ERICA TREVIÑO Face to Face with patient for initial transition planning/care coordination assessment. ERICA TREVIÑO introduced self and role at [facility]. Patient sitting in chair, alert and oriented. No family at bedside. Patient willing to participate in assessment and is able to answer all questions appropriately. Care providers, pharmacy, and demographics verified. Patient wishes to discharge homePatient states she has no further needs or concerns at this time. CM to follow for discharge planning needs that may arise. PCP: [facility]: Deborah for anemia. 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 Preferred Pharmacy: [facility] Insurance: [facility] MCR & MELANIE. Prescription Benefit: yes --no rx copays Living Will/HPOA: none. Still declines doing while here. LNOK: son and daughter Living Arrangements: Patient lives with best friend in mobile home. states has a couple steps but friend who owns the mobile home did install a lift. Patient independent at home. Transportation: States that she/her best both drive however neither have a car right now. They are thinking about getting cab passes. DME: Denies having any DME at home currently. States needs Rollator, toilet frame, raised toilet seat and grab bars. Explained that she may need to buy some of it but will send information to [employer] in case her plan/melanie covers any. HHC: Had [facility] HH SNF: [facility] Disposition Plan: Home. Other than DMEs listed above. Denies needs. Nino Perkins RN, CCM.
--- NOTE | 2019-09-07 13:11 | PCM.PN.HOSP ---
<Sarmad Fonseca - Last Filed: 09/07/19 13:11> Patient Problems: Active and Suspected Problems Hyperglycemia (Acute) Reason for Visit: SOB Subjective: Breathing and LE edema improved. Still not on O2. BP control still poor. Glucose fluctuant. Pt anxious, and hoping for dc however is not medically ready yet. No CP, no palp, no pressure/tightness/heaviness. No fever/chills. No cough. Vitals/I&O's: Vital Signs Temp Pulse Resp BP Pulse Ox 98.1 F 70 16 175/56 H 100 09/07/19 10:15 09/07/19 11:09 09/07/19 10:15 09/07/19 11:09 09/07/19 10:15 Oxygen Flow Rate (L/min) 2 Oxygen Delivery Method Room Air Weight: 175 lb 7.807 oz Body Mass Index (BMI) 34.2 Finger Stick Blood Glucose 383 Intake and Output for Last 24 Hours 09/05/19 09/06/19 09/07/19 23:59 23:59 23:59 Intake Total 1184 / 1184 Output Total 1500 / 1500 Balance -316 / -316 General: Alert, Oriented x3, Cooperative HEENT: Atraumatic, PERRLA, EOMI, Normocephalic Neck: Supple, No JVD, Negative Carotid Bruits Lungs: Clear to auscultation, Diminished Cardiovascular: Regular rate, No murmurs Abdomen: Bowel Sounds Present, Soft, Non Tender Extremities: No edema, Capillary Refill Less than 3 Seconds Skin: No rashes, No breakdown Musculoskeletal: No Tenderness to Palpation of Joints or Extremities Neurological: Cranial nerves II-XII grossly intact Psych/Mental Status: Anxious, Alert and oriented to time, place, person, mood and affect Microbiology Past 72 Hours 09/06/19 15:40 Mucosa - Nasopharyngeal Influenza Types A,B Direct FA (ANTONIO) - Final Laboratory Results 09/06/19 15:10: Urine Color Straw, Urine Clarity Clear, Urine pH 6.5, Ur Specific [place] 1.010, Urine Protein 100 H, Urine Glucose (UA) 1000 H, Urine Ketones Negative, Urine Occult Blood 50 H, Urine Nitrite Negative, Urine Bilirubin Negative, Urine Urobilinogen Normal, Ur Leukocyte Esterase Negative, Urine RBC 0-5 SEEN, Urine WBC 0 SEEN, Ur Squamous Epith Cells 0-5 SEEN, Urine Bacteria RARE, Urine Mucus 0 SEEN 09/06/19 15:25: WBC 5.6, RBC 3.30 L, Hgb 9.9 L, Hct 30.2 L, MCV 91.5, MCH 30.0, MCHC 32.8, RDW Std Deviation 46.1 H, RDW Coeff of Kusum 13.9, Plt Count 129 L, MPV 11.2, Immature Gran % (Auto) 0.200, Neut % (Auto) 71.4 H, Lymph % (Auto) 21.2, [place] % (Auto) 5.3, Eos % (Auto) 1.2, Baso % (Auto) 0.7, Absolute Neuts (auto) 4.0, Absolute Lymphs (auto) 1.19, Nucleated RBC % 0 09/06/19 15:25: Sodium 136, Potassium 4.5, Chloride 103, Carbon Dioxide 27.0, Anion Gap 6, BUN 31 H, Creatinine 1.51 H, Estim Creat Clear Calc 23.83, Est GFR (MDRD) Af Amer 43 L, Est GFR (MDRD) Non-Af 36 L, BUN/Creatinine Ratio 20.5 H, Glucose 632 H*, Calcium 8.8, Troponin I 0.028 09/06/19 15:25: B-Natriuretic Peptide 704.4 H 09/06/19 16:35: Acetone Level NEGATIVE 09/06/19 17:44: POC Glucose > 500 H* 09/06/19 18:10: Glucose 538 H* 09/06/19 19:05: POC Glucose > 500 H* 09/06/19 19:26: Glucose 497 H* 09/06/19 19:26: Magnesium 1.7 09/06/19 22:11: POC Glucose 105 09/07/19 01:56: POC Glucose 59 L 09/07/19 02:34: POC Glucose 118 H 09/07/19 07:10: Sodium 139, Potassium 3.7, Chloride 105, Carbon Dioxide 27.0, Anion Gap 7, BUN 29 H, Creatinine 1.21 H, Estim Creat Clear Calc 29.74, Est GFR (MDRD) Af Amer 56 L, Est GFR (MDRD) Non-Af 46 L, BUN/Creatinine Ratio 24.0 H, Glucose 193 H, Calcium 8.4 L 09/07/19 07:44: POC Glucose 204 H 09/07/19 11:07: POC Glucose 123 H Current Medications Acetaminophen (Tylenol) 650 mg PO Q6H PRN PRN PRN Reason: Pain Score 1-10/Temp > 100.7 F Last Admin: 09/06/19 21:46 Dose: 650 mg Documented by: Albuterol Sulfate (Ventolin Aerosols) 2.5 mg INHALATION Q2H PRN PRN PRN Reason: DYSPNEA Amlodipine Besylate (Norvasc) 10 mg PO DAILY [facility] Amlodipine Besylate (Norvasc) 5 mg PO X1 ONE Stop: 09/07/19 13:11 Atorvastatin Calcium (Lipitor) 10 mg PO QHS [facility] Last Admin: 09/06/19 22:36 Dose: 10 mg Documented by: Furosemide (Lasix) 40 mg IV BID@1000,1800 CLYDE Gabapentin (Neurontin) 200 mg PO BIDCM [facility] Last Admin: 09/07/19 07:46 Dose: 200 mg Documented by: Glucagon () 1 mg IM .X1 PRN PRN Reason: Hypoglycemia Heparin Sodium (Porcine) (Heparin Na) 5,000 unit SC Q8 [facility] Last Admin: 09/07/19 06:13 Dose: 5,000 unit Documented by: Dextrose (Dextrose 10%-Water) 250 mls @ 999 mls/hr IV .Q16M PRN; Protocol PRN Reason: HYPOGLYCEMIA Sodium Chloride () 250 mls @ 15 mls/hr IV .[id number] PRN PRN Reason: Saline Flush Sodium Chloride () 250 mls @ 15 mls/hr IV .[id number] PRN PRN Reason: Additional IVPB Infusion Insulin Glargine (Lantus (Bkc)) 30 units SC BID [facility] Last Admin: 09/07/19 11:08 Dose: 30 u Documented by: Insulin Human Lispro (Humalog Kwikpen (Bkc)) 0 unit SC ACHS [facility]; Protocol Last Admin: 09/07/19 11:09 Dose: Not Given Documented by: Insulin Human Lispro (Humalog Kwikpen (Bkc)) 16 unit SC TIDAC [facility] Last Admin: 09/07/19 11:57 Dose: 16 units Documented by: Isosorbide Mononitrate (Imdur) 30 mg PO DAILY [facility] Last Admin: 03/07/20 11:08 Dose: 30 mg Documented by: Lisinopril (Zestril) 20 mg PO DAILY [facility] Last Admin: 09/07/19 11:08 Dose: 20 mg Documented by: Metoprolol Tartrate (Lopressor (Beta Nataliia)) 25 mg PO BID [facility] Last Admin: 09/07/19 11:09 Dose: 25 mg Documented by: Nystatin (Mycostatin Powder) 1 applic TOPICAL BID [facility]; Protocol Last Admin: 09/07/19 11:02 Dose: 1 applicatio Documented by: Pantoprazole Sodium (Protonix) 40 mg PO DAILY [facility] Last Admin: 09/07/19 11:08 Dose: 40 mg Documented by: Sodium Chloride () 10 - 40 ml IV UD PRN PRN Reason: SALINE FLUSH Last Admin: 09/07/19 06:13 Dose: 20 ml Documented by: Trazodone HCl (Desyrel) 25 mg PO QHS [facility] Last Admin: 09/06/19 22:36 Dose: 25 mg Documented by: STROKE Vital Signs/Narrative: Vital Signs Temp Pulse Resp BP Pulse Ox 09/07/19 11:09 70 175/56 H 09/07/19 10:15 98.1 F 70 16 175/56 H 100 Medical Necessity - Tobacco Use Smoking Status: Current every day smoker Tobacco Use: Non-smoker Assessment/Plan All Active Problems Concussion (Resolved) CAP (community acquired pneumonia) (Resolved) Chest pain (Acute) Acute kidney injury (Acute) Hyperglycemia (Acute) 1. Acute on chronic diastolic CHF exacerbation, 2/2 htn emergency - optimize bp. lasix to bid. remains off o2, 100% RA. continue fluid/sodium restriction,I/Os. 2. DMt2 with hyperglycemia - fluctuant, adjust home insulin as needed + SSI. 3. MDS - follows Dr. Cabrera. mild anemia, mild thrombocytopenia. f/u as outpatient. 4. Tobacco abuse - patch 5. ELENITA - her CPAP machine was taken away and she was told she needs a repeat sleep study. 6. GERD - ppi 7. COPD - no exacerbation - prn aerosols, IS. 8. Hx depression, anxiety, bipolar, multiple personality disorder - only home psychiatric med listed is trazodone. She would benefit from outpatient psych follow up. 9. Hx CVA - statin. DVT ppx: heparin, trend platelets DC planning: PTOT. This patient was seen by Sarmad Fonseca PA-C under the supervision of Dr. Lee <Lazaro Lee F - Last Filed: 09/07/19 14:52> Vitals/I&O's: Vital Signs Temp Pulse Resp BP Pulse Ox 98.1 F 70 16 175/56 H 100 09/07/19 10:15 09/07/19 11:09 09/07/19 10:15 09/07/19 11:09 09/07/19 10:15 Oxygen Flow Rate (L/min) 2 Oxygen Delivery Method Room Air Weight: 175 lb 7.807 oz Body Mass Index (BMI) 34.2 Finger Stick Blood Glucose 383 Intake and Output for Last 24 Hours 09/05/19 09/06/19 09/07/19 23:59 23:59 23:59 Intake Total 1184 / 1184 Output Total 1500 / 1500 Balance -316 / -316 Microbiology Past 72 Hours 09/06/19 15:40 Mucosa - Nasopharyngeal Influenza Types A,B Direct FA (ANTONIO) - Final Laboratory Results 09/06/19 15:10: Urine Color Straw, Urine Clarity Clear, Urine pH 6.5, Ur Specific [place] 1.010, Urine Protein 100 H, Urine Glucose (UA) 1000 H, Urine Ketones Negative, Urine Occult Blood 50 H, Urine Nitrite Negative, Urine Bilirubin Negative, Urine Urobilinogen Normal, Ur Leukocyte Esterase Negative, Urine RBC 0-5 SEEN, Urine WBC 0 SEEN, Ur Squamous Epith Cells 0-5 SEEN, Urine Bacteria RARE, Urine Mucus 0 SEEN 09/06/19 15:25: WBC 5.6, RBC 3.30 L, Hgb 9.9 L, Hct 30.2 L, MCV 91.5, MCH 30.0, MCHC 32.8, RDW Std Deviation 46.1 H, RDW Coeff of Kusum 13.9, Plt Count 129 L, MPV 11.2, Immature Gran % (Auto) 0.200, Neut % (Auto) 71.4 H, Lymph % (Auto) 21.2, [place] % (Auto) 5.3, Eos % (Auto) 1.2, Baso % (Auto) 0.7, Absolute Neuts (auto) 4.0, Absolute Lymphs (auto) 1.19, Nucleated RBC % 0 09/06/19 15:25: Sodium 136, Potassium 4.5, Chloride 103, Carbon Dioxide 27.0, Anion Gap 6, BUN 31 H, Creatinine 1.51 H, Estim Creat Clear Calc 23.83, Est GFR (MDRD) Af Amer 43 L, Est GFR (MDRD) Non-Af 36 L, BUN/Creatinine Ratio 20.5 H, Glucose 632 H*, Calcium 8.8, Troponin I 0.028 09/06/19 15:25: B-Natriuretic Peptide 704.4 H 09/06/19 16:35: Acetone Level NEGATIVE 09/06/19 17:44: POC Glucose > 500 H* 09/06/19 18:10: Glucose 538 H* 09/06/19 19:05: POC Glucose > 500 H* 09/06/19 19:26: Glucose 497 H* 09/06/19 19:26: Magnesium 1.7 09/06/19 22:11: POC Glucose 105 09/07/19 01:56: POC Glucose 59 L 09/07/19 02:34: POC Glucose 118 H 09/07/19 07:10: Sodium 139, Potassium 3.7, Chloride 105, Carbon Dioxide 27.0, Anion Gap 7, BUN 29 H, Creatinine 1.21 H, Estim Creat Clear Calc 29.74, Est GFR (MDRD) Af Amer 56 L, Est GFR (MDRD) Non-Af 46 L, BUN/Creatinine Ratio 24.0 H, Glucose 193 H, Calcium 8.4 L 09/07/19 07:44: POC Glucose 204 H 09/07/19 11:07: POC Glucose 123 H Current Medications Acetaminophen (Tylenol) 650 mg PO Q6H PRN PRN PRN Reason: Pain Score 1-10/Temp > 100.7 F Last Admin: 09/06/19 21:46 Dose: 650 mg Documented by: Albuterol Sulfate (Ventolin Aerosols) 2.5 mg INHALATION Q2H PRN PRN PRN Reason: DYSPNEA Amlodipine Besylate (Norvasc) 10 mg PO DAILY [facility] Atorvastatin Calcium (Lipitor) 10 mg PO QHS [facility] Last Admin: 09/06/19 22:36 Dose: 10 mg Documented by: Furosemide (Lasix) 40 mg IV BID@1000,1800 [facility] Last Admin: 09/07/19 07:46 Dose: 200 mg Documented by: Glucagon () 1 mg IM .X1 PRN PRN Reason: Hypoglycemia Heparin Sodium (Porcine) (Heparin Na) 5,000 unit SC Q8 [facility] Last Admin: 09/07/19 13:56 Dose: 5,000 unit Documented by: Dextrose (Dextrose 10%-Water) 250 mls @ 999 mls/hr IV .Q16M PRN; Protocol PRN Reason: HYPOGLYCEMIA Sodium Chloride () 250 mls @ 15 mls/hr IV .[id number] PRN PRN Reason: Saline Flush Sodium Chloride () 250 mls @ 15 mls/hr IV .[id number] PRN PRN Reason: Additional IVPB Infusion Insulin Glargine (Lantus ([facility])) 30 units SC BID [facility] Last Admin: 09/07/19 11:08 Dose: 30 u Documented by: Insulin Human Lispro (Humalog Kwikpen ([facility])) 0 unit SC ACHS [facility]; Protocol Last Admin: 09/07/19 11:09 Dose: Not Given Documented by: Insulin Human Lispro (Humalog Kwikpen ([facility])) 16 unit SC TIDAC [facility] Last Admin: 09/07/19 11:57 Dose: 16 units Documented by: Isosorbide Mononitrate (Imdur) 30 mg PO DAILY [facility] Last Admin: 09/07/19 11:08 Dose: 30 mg Documented by: Lisinopril (Zestril) 20 mg PO DAILY [facility] Last Admin: 09/07/19 11:08 Dose: 20 mg Documented by: Metoprolol Tartrate (Lopressor (Beta Nataliia)) 25 mg PO BID [facility] Last Admin: 09/07/19 11:09 Dose: 25 mg Documented by: Nystatin (Mycostatin Powder) 1 applic TOPICAL BID [facility]; Protocol Last Admin: 09/07/19 11:02 Dose: 1 applicatio Documented by: Pantoprazole Sodium (Protonix) 40 mg PO DAILY [facility] Last Admin: 09/07/19 11:08 Dose: 40 mg Documented by: Sodium Chloride () 10 - 40 ml IV UD PRN PRN Reason: SALINE FLUSH Last Admin: 09/07/19 06:13 Dose: 20 ml Documented by: Trazodone HCl (Desyrel) 25 mg PO QHS [facility] Last Admin: 09/06/19 22:36 Dose: 25 mg Documented by: STROKE Vital Signs/Narrative: Vital Signs Pulse BP 09/07/19 11:09 70 175/56 H Addendum: Dr. Lee I personally examined the patient and reviewed the chart. I agree with the above. 73-year-old female with history of diastolic CHF and diabetes presents with fluid overload and acute on chronic diastolic heart failure. She had an elevated BNP as well as noted creatinine and a blood sugar of 632. Her blood sugar has improved as has her fluid status, she has been diuresed with IV Lasix 40 mg twice daily. Her creatinine improved from 1.51 to 1.21. Her blood pressure is still elevated therefore we increased her Norvasc to 10 and will see if that has an effect otherwise can likely change her metoprolol to Coreg. As for her blood sugar, there is a possibility that she has not been taking her insulin appropriately, she did lose her glucometer and has not been checking her sugars. Will provide further education on proper insulin use as well as discharge her with a new prescription for a glucometer as well as test strips. Inpatient E&M: 16955 Subs Hosp L2
[2019-09-07 16:21] LABS: Bedside Glucose 112 mg/dL (70-110)
[2019-09-07] MEDS: Acetaminophen 325 MG Tablet 650 MG PO (16:26)
[2019-09-07] MEDS: traZODone 50 MG Tablet 25 MG PO (21:35)
[2019-09-07] MEDS: Atorvastatin Calcium 10 MG Tablet PO (21:35)
[2019-09-07 23:25] LABS: Bedside Glucose 93 mg/dL (70-110)
[2019-09-08 03:04] VITALS: PULSE 68
[2019-09-08 04:10] VITALS: BP 122/42; PULSE 67; RESP 16; TEMP 36.8; O2SAT 95
[2019-09-08 04:36] LABS: Bedside Glucose 220 mg/dL (70-110)
[2019-09-08 06:35] LABS: Basophil# 0.06 X10^3/uL; Eosinophil# 0.18 X10^3/uL; Hematocrit 28.9 % (37-47); Hemoglobin 9.4 g/dL (12.0-15.0); Lymphocyte % 38.6 % (19-41); Mean Corp Hgb Conc 32.5 g/dL (32-36); Mean Corpuscular Hgb 29.4 pg (27.0-32.0); Mean Corpuscular Volume 90.3 fL (81-99); Mean Platelet Vol. 11.3 fl (6.2-12.0); Monocyte# 0.41 X10^3/uL; Monocyte% 6.9 % (0-10); NRBC Flagged by Analyzer 0 % (0-5); Neutrophil % 50.3 % (47-70); Platelet Count 157 K/mm3 (150-450); RBC Distribution Width CV 14.1 % (11.6-14.6); RBC Distribution Width SD 46.4 fl (35.1-43.9)
[2019-09-08 07:02] VITALS: PULSE 70
[2019-09-08 07:17] LABS: Anion Gap 7 (5-15); BUN 33 mg/dL (7-18); BUN/Creat Ratio 25.6 RATIO (10-20); Calcium,Total 8.5 mg/dL (8.5-10.1); Chloride 103 mmol/L (98-107); Creatinine, Serum 1.29 mg/dL (0.55-1.02); EST Glomerular Filtration Rate 43 mL/min (>60); Est Glom Filt Rate - Afr Amer 52 mL/min (>60); Glucose 245 mg/dL (74-106); Potassium 4.4 mmol/L (3.5-5.1); Sodium Level 137 mmol/L (136-145)
[2019-09-08] MEDS: Insulin Lispro 100 UNIT/ML INSULN.PEN SC ×2 (07:38→11:20)
[2019-09-08] MEDS: Insulin Lispro 100 UNIT/ML INSULN.PEN 16 UNIT SC ×2 (07:38→11:21)
[2019-09-08] MEDS: Gabapentin 100 MG Capsule 200 MG PO (07:38)
[2019-09-08 08:11] LABS: Bedside Glucose 256 mg/dL (70-110)
[2019-09-08 09:32] VITALS: BP 153/70; PULSE 73; RESP 16; TEMP 36.5; O2SAT 97
[2019-09-08 09:36] VITALS: BP 153/70; PULSE 73
[2019-09-08] MEDS: Metoprolol Tartrate 25 MG Tablet PO (09:36)
[2019-09-08] MEDS: Furosemide 40 MG/4 ML Vial IV (09:36)
[2019-09-08] MEDS: Isosorbide Mononitrate 30 MG Tablet PO (09:37)
[2019-09-08] MEDS: Nystatin Powder 15gm Bottle 1 APPLIC TOPICAL (09:37)
[2019-09-08] MEDS: Pantoprazole Sodium 40 MG Tablet PO (09:37)
[2019-09-08] MEDS: amLODIPine 10 MG Tablet PO (09:37)
[2019-09-08] MEDS: Lisinopril 20 MG Tablet PO (09:38)
[2019-09-08] MEDS: 0.9% Saline Lock 10 ML Syringe IV (09:41)
--- NOTE | 2019-09-08 11:22 | DCINST_ITS ---
- Discharge Diagnoses Current Active Problems: Current Active and Chronic Problems Acute exacerbation of CHF (congestive heart failure) (Chronic) ELENITA (obstructive sleep apnea) (Chronic) Hyperglycemia (Acute) You will use the following diet at home:: Cardiac - 2-3 g sodium daily, 2000 cc fluid restriction Your food should be the consistency of: Regular Your liquids should be the consistency of: Regular/Thin Discharge Activity: Return to Normal Activity Additional Instructions: check blood sugar at least three times daily before meals, record results and give them to your family medicine doctor at follow up. Check your weight daily, if 2 pounds increase in 24 hours or 5 pounds in 7 days call your doctor for instructions regarding lasix. Allergies/Adverse Reactions: Allergies ciprofloxacin [From Cipro] Allergy (Verified 08/11/19 13:44) Rash codeine Allergy (Verified 08/11/19 13:44) Shortness of breath Penicillins Allergy (Verified 08/11/19 13:44) Hives CILLINS Allergy (Uncoded 08/11/19 13:44) Unknown Medications to take at Discharge Isosorbide Mononitrate [Isosorbide Mononitrate ER] 30 mg PO DAILY 04/10/15 Latanoprost 0.005% [Xalatan Opthalmic] 1 drop EACH EYE QHS 05/03/18 Insulin Lispro [Humalog KwikPen] 10 unit SUBCUT TIDCM 06/10/19 Famotidine 40 mg PO BID 06/29/19 Insulin Glargine [Lantus SoloStar Pen] 29 units SUBCUT QHS 06/29/19 traZODone [Desyrel] 25 mg PO QHS 06/29/19 Atorvastatin Calcium [Lipitor] 10 mg PO QHS 09/06/19 Ergocalciferol [Vitamin D] 50,000 unit PO QMONTH 09/06/19 Fexofenadine HCl 60 mg PO DAILY 09/06/19 Gabapentin 100 mg PO BID 09/06/19 Lactobacillus Acidophilus [Acidophilus] 1 tab PO DAILY 09/06/19 Amlodipine [Norvasc] 10 mg PO DAILY #30 tab 09/08/19 Furosemide [Lasix] 40 mg PO BID #60 tab 09/08/19 Insulin Glargine [Lantus SoloStar Pen] 25 units SC BID pen 09/08/19 Lisinopril [Zestril] 20 mg PO DAILY #30 tab 09/08/19 Metoprolol Tartrate [Lopressor (beta carson)] 25 mg PO BID #60 tab 09/08/19 Potassium Chloride [K-Dur] 10 meq PO DAILY #30 tab 09/08/19 The following prescriptions were given: Potassium Chloride [K-Dur] 10 meq PO DAILY #30 tab Transmission Status: Pending to [id number] Furosemide [Lasix] 40 mg PO BID #60 tab Transmission Status: Pending to [facility][id number] Metoprolol Tartrate [Lopressor (beta carson)] 25 mg PO BID #60 tab Transmission Status: Pending to [facility][id number] Amlodipine [Norvasc] 10 mg PO DAILY #30 tab Transmission Status: Pending to [facility][id number] Lisinopril [Zestril] 20 mg PO DAILY #30 tab Transmission Status: Pending to [facility][id number] Primary Care Physician: Bailey Toribio MD [Primary Care Provider] - Please follow up with your Primary Care Physician in: 1 week Test Results: Test results from this visit will be discussed in further detail at your follow- up appointment, if applicable. Proposed Discharge Date: 09/08/19
[2019-09-08 11:30] LABS: Bedside Glucose 216 mg/dL (70-110)
[2019-09-08 13:00] VITALS: O2SAT 98
--- NOTE | 2019-09-08 13:59 | DS.PCM_ITS ---
<Sarmad Fonseca - Last Filed: 09/08/19 13:59> Discharge Date and Diagnosis - Problem List Patient Problems: Active and Suspected Problems Hyperglycemia (Acute) Date of Admission: 09/06/19 Date of Discharge: 09/08/19 - Primary Discharge Diagnosis Active and Suspected Problems Acute on chronic diastolic congestive heart failure secondary to hypertensive emergency Type 2 diabetes with hyperglycemia Myelodysplastic syndrome Tobacco abuse Obstructive sleep apnea, not on home CPAP or BiPAP GERD COPD with no exacerbation History of depression, anxiety, bipolar, multiple personality disorder History of CVA - Secondary Discharge Diagnosis Chronic Problems Seizure disorder (Chronic) Stroke (Chronic) Coronary artery disease (Chronic) Depression (Chronic) Bipolar disorder (Chronic) Multiple personality disorder (Chronic) Restless legs syndrome (Chronic) Rheumatoid arthritis (Chronic) Generalized anxiety disorder (Chronic) Acute exacerbation of CHF (congestive heart failure) (Chronic) ELENITA (obstructive sleep apnea) (Chronic) ELENITA on CPAP (Chronic) COPD (chronic obstructive pulmonary disease) (Chronic) Peripheral neuropathy (Chronic) Esophageal reflux (Chronic) Depressive disorder (Chronic) 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) Obesity (Chronic) Hypertension (Chronic) Diabetes type 2, uncontrolled (Chronic) Hyperlipidemia (Chronic) MRSA (Chronic) Cerebrovascular disease (Chronic) Status post acute ischemic stroke No residual deficit Diabetes mellitus (Chronic) Hospital Course and Treatment Imaging Results: RAD/Chest 1 View (Portable) IMPRESSION: Vascular congestion and mild degree of CHF. RAD/Chest PA and Lateral IMPRESSION: Lingular pneumonia or atelectasis, new. Trace bilateral pleural effusions, new. Operations: None Procedures: None Summary of Care Provided: Hospital Course: The patient is a 73 year old F past medical history as above who presented to the emergency room with complaints of increased shortness of breath that began suddenly the day of presentation. She had increased lower extremity edema and was found to have severely elevated blood pressure. She also had severely elevated blood sugar. Despite her dyspnea she did not require any increased oxygen in the emergency room. Chest x-ray was suggestive of CHF, BNP was elevated at 704. She was felt to have acute exacerbation of diastolic congestive heart failure due to hypertensive emergency. She was admitted to the hospital and placed on telemetry. She was started on Lasix for CHF and given Norvasc, lisinopril, metoprolol for blood pressure. Her long-acting insulin and mealtime insulin were increased along with sliding scale added. She did well the first night however she had fluctuant blood sugars. With the increased dose of insulin she did have a low here, and her insulins were cut back. I am concerned that she may not be using her insulin as directed at home. She was not checking her blood sugars at home with a glucometer however she states she has one somewhere but needs to find it. She was ambulated and remained off oxygen. She was transitioned to oral Lasix with potassium, given new prescriptions for blood pressure medication regimen that is working for her here and was advised to increase her Lantus dose, however I am hesitant at this time to increase her mealtime insulin as she did have some lows while here. I advised her to start checking her blood sugars and to record them in a journal and present them to her PCP at follow-up. I also advised her to check her daily weights, stick with a sodium and fluid restricted diet as well. She will need a BMP at follow-up, and she should follow-up with her PCP in 1 weeks. She worked with PT and OT while she was here and did not demonstrate any need for ongoing PT. She was discharged home in stable condition. This patient was seen by Sarmad Fonseca PA-C under the supervision of Doctor Rosa. [] Patient Problems: Active and Suspected Problems Hyperglycemia (Acute) - Physical Exam Vitals/I&O's: Vital Signs Temp Pulse Resp BP Pulse Ox 97.7 F L 73 16 153/70 H 98 09/08/19 09:32 09/08/19 09:36 09/08/19 09:32 09/08/19 09:36 09/08/19 13:00 Oxygen Flow Rate (L/min) 2 Oxygen Delivery Method Room Air Weight: 173 lb 4.533 oz Body Mass Index (BMI) 34.2 Finger Stick Blood Glucose 383 Intake and Output for Last 24 Hours 09/06/19 09/07/19 09/09/19 23:59 23:59 00:59 Intake Total 2284 / 2284 560 / 560 Output Total 2100 / 2100 500 / 500 Balance 184 / 184 60 / 60 General: Alert, Oriented x3, Cooperative HEENT: Atraumatic, PERRLA, EOMI, Normocephalic Neck: Supple, No JVD, Negative Carotid Bruits Lungs: Clear to auscultation, Normal air movement Cardiovascular: Regular rate, No murmurs Abdomen: Bowel Sounds Present, Soft, Non Tender Extremities: No edema, Capillary Refill Less than 3 Seconds Skin: No rashes, No breakdown Musculoskeletal: No Tenderness to Palpation of Joints or Extremities Neurological: Cranial nerves II-XII grossly intact Psych/Mental Status: Normal Affect, Appropriate Microbiology Past 72 Hours 09/06/19 15:40 Mucosa - Nasopharyngeal Influenza Types A,B Direct FA ([facility]) - Final Laboratory Results 09/07/19 16:14: POC Glucose 112 H 09/07/19 21:31: POC Glucose 93 09/08/19 04:21: POC Glucose 220 H 09/08/19 05:54: WBC 6.0, RBC 3.20 L, Hgb 9.4 L, Hct 28.9 L, MCV 90.3, MCH 29.4, MCHC 32.5, RDW Std Deviation 46.4 H, RDW Coeff of Kusum 14.1, Plt Count 157, MPV 11.3, Immature Gran % (Auto) 0.200, Neut % (Auto) 50.3, Lymph % (Auto) 38.6, [place] % (Auto) 6.9, Eos % (Auto) 3.0, Baso % (Auto) 1.0, Absolute Neuts (auto) 3.0, Absolute Lymphs (auto) 2.30, Nucleated RBC % 0 09/08/19 05:54: Sodium 137, Potassium 4.4, Chloride 103, Carbon Dioxide 27.0, Anion Gap 7, BUN 33 H, Creatinine 1.29 H, Estim Creat Clear Calc 27.90, Est GFR (MDRD) Af Amer 52 L, Est GFR (MDRD) Non-Af 43 L, BUN/Creatinine Ratio 25.6 H, Glucose 245 H, Calcium 8.5 09/08/19 07:35: POC Glucose 256 H 09/08/19 11:18: POC Glucose 216 H Current Medications Acetaminophen (Tylenol) 650 mg PO Q6H PRN PRN PRN Reason: Pain Score 1-10/Temp > 100.7 F Last Admin: 09/07/19 16:26 Dose: 650 mg Documented by: Albuterol Sulfate (Ventolin Aerosols) 2.5 mg INHALATION Q2H PRN PRN PRN Reason: DYSPNEA Amlodipine Besylate (Norvasc) 10 mg PO DAILY COUNTS INCLUDE 234 BEDS AT [facility] Last Admin: 09/08/19 09:37 Dose: 10 mg Documented by: Atorvastatin Calcium (Lipitor) 10 mg PO QHS COUNTS INCLUDE 234 BEDS AT [facility] Last Admin: 09/07/19 21:35 Dose: 10 mg Documented by: Furosemide (Lasix) 40 mg IV BID@1000,1800 COUNTS INCLUDE 234 BEDS AT [facility] Last Admin: 09/08/19 09:36 Dose: 40 mg Documented by: Gabapentin (Neurontin) 200 mg PO BIDCM COUNTS INCLUDE 234 BEDS AT [facility] Last Admin: 09/08/19 07:38 Dose: 200 mg Documented by: Glucagon () 1 mg IM .X1 PRN PRN Reason: Hypoglycemia Heparin Sodium (Porcine) (Heparin Na) 5,000 unit SC Q8 COUNTS INCLUDE 234 BEDS AT [facility] Last Admin: 09/08/19 06:49 Dose: Not Given Documented by: Dextrose (Dextrose 10%-Water) 250 mls @ 999 mls/hr IV .Q16M PRN; Protocol PRN Reason: HYPOGLYCEMIA Sodium Chloride () 250 mls @ 15 mls/hr IV .[id number] PRN PRN Reason: Saline Flush Sodium Chloride () 250 mls @ 15 mls/hr IV .[id number] PRN PRN Reason: Additional IVPB Infusion Insulin Glargine (Lantus (Bkc)) 30 units SC BID COUNTS INCLUDE 234 BEDS AT [facility] Last Admin: 09/08/19 07:39 Dose: 30 u Documented by: Insulin Human Lispro (Humalog Kwikpen (Bkc)) 0 unit SC ACHS COUNTS INCLUDE 234 BEDS AT [facility]; Protocol Last Admin: 09/08/19 11:20 Dose: 6 u Documented by: Insulin Human Lispro (Humalog Kwikpen (Bkc)) 16 unit SC TIDAC COUNTS INCLUDE 234 BEDS AT [facility] Last Admin: 09/08/19 11:21 Dose: 16 units Documented by: Isosorbide Mononitrate (Imdur) 30 mg PO DAILY COUNTS INCLUDE 234 BEDS AT [facility] Last Admin: 09/08/19 09:37 Dose: 30 mg Documented by: Lisinopril (Zestril) 20 mg PO DAILY COUNTS INCLUDE 234 BEDS AT [facility] Last Admin: 09/08/19 09:38 Dose: 20 mg Documented by: Metoprolol Tartrate (Lopressor (Beta Nataliia)) 25 mg PO BID COUNTS INCLUDE 234 BEDS AT [facility] Last Admin: 09/08/19 09:36 Dose: 25 mg Documented by: Nystatin (Mycostatin Powder) 1 applic TOPICAL BID COUNTS INCLUDE 234 BEDS AT [facility]; Protocol Last Admin: 09/08/19 09:37 Dose: 1 applicatio Documented by: Pantoprazole Sodium (Protonix) 40 mg PO DAILY COUNTS INCLUDE 234 BEDS AT [facility] Last Admin: 09/08/19 09:37 Dose: 40 mg Documented by: Sodium Chloride () 10 - 40 ml IV UD PRN PRN Reason: SALINE FLUSH Last Admin: 09/08/19 09:41 Dose: 10 ml Documented by: Trazodone HCl (Desyrel) 25 mg PO QHS COUNTS INCLUDE 234 BEDS AT [facility] Last Admin: 09/07/19 21:35 Dose: 25 mg Documented by: Discharge Diet: Low fat/ Low Cholesterol, 1800 Calorie Control Diet, - - 2-3 g sodium daily, 2000 cc fluid daily, 1800 amanda day Discharge Activity: Return to Normal Activity Home Medications: Medications to take at Discharge Isosorbide Mononitrate [Isosorbide Mononitrate ER] 30 mg PO DAILY 04/10/15 Latanoprost 0.005% [Xalatan Opthalmic] 1 drop EACH EYE QHS 05/03/18 Insulin Lispro [Humalog KwikPen] 10 unit SUBCUT TIDCM 06/10/19 Famotidine 40 mg PO BID 06/29/19 Insulin Glargine [Lantus SoloStar Pen] 29 units SUBCUT QHS 06/29/19 traZODone [Desyrel] 25 mg PO QHS 06/29/19 Atorvastatin Calcium [Lipitor] 10 mg PO QHS 09/06/19 Ergocalciferol [Vitamin D] 50,000 unit PO QMONTH 09/06/19 Fexofenadine HCl 60 mg PO DAILY 09/06/19 Gabapentin 100 mg PO BID 09/06/19 Lactobacillus Acidophilus [Acidophilus] 1 tab PO DAILY 09/06/19 Amlodipine [Norvasc] 10 mg PO DAILY #30 tab 09/08/19 Furosemide [Lasix] 40 mg PO BID #60 tab 09/08/19 Insulin Glargine [Lantus SoloStar Pen] 25 units SUBCUT BID pen 09/08/19 Lisinopril [Zestril] 20 mg PO DAILY #30 tab 09/08/19 Metoprolol Tartrate [Lopressor (beta nataliia)] 25 mg PO BID #60 tab 09/08/19 Potassium Chloride [K-Dur] 10 meq PO DAILY #30 tab 09/08/19 Following Prescrptions Were Given to Patient: Potassium Chloride [K-Dur] 10 meq PO DAILY #30 tab Transmission Status: Received by [id number] Furosemide [Lasix] 40 mg PO BID #60 tab Transmission Status: Received by [id number] Metoprolol Tartrate [Lopressor (beta nataliia)] 25 mg PO BID #60 tab Transmission Status: Received by [id number] Amlodipine [Norvasc] 10 mg PO DAILY #30 tab Transmission Status: Received by [id number] Lisinopril [Zestril] 20 mg PO DAILY #30 tab Transmission Status: Received by [id number] Other Amb Orders: Glucometer Location: None Selected Primary Care Physician: Bailey Toribio MD [Primary Care Provider] - Please follow up with your Primary Care Physician in: 1 week Please Follow Up With: Bailey Toribio MD Disposition: Home Minutes spent on discharge:: 35 Patient Condition:: Stable Medical Necessity - Tobacco Use Smoking Status: Current every day smoker Tobacco Use: Non-smoker Meaningful Use Info Meaningful Use Diagnoses (Choose all that apply): CHF - CHF ABENA/ARB ordered at discharge?: Yes Documented LVEF (%): 60 <Lazaro Lee - Last Filed: 09/08/19 14:17> Discharge Date and Diagnosis - Primary Discharge Diagnosis Active and Suspected Problems Hyperglycemia (Acute) - Secondary Discharge Diagnosis Chronic Problems Seizure disorder (Chronic) Stroke (Chronic) Coronary artery disease (Chronic) Depression (Chronic) Bipolar disorder (Chronic) Multiple personality disorder (Chronic) Restless legs syndrome (Chronic) Rheumatoid arthritis (Chronic) Generalized anxiety disorder (Chronic) Acute exacerbation of CHF (congestive heart failure) (Chronic) ELENITA (obstructive sleep apnea) (Chronic) ELENITA on CPAP (Chronic) COPD (chronic obstructive pulmonary disease) (Chronic) Peripheral neuropathy (Chronic) Esophageal reflux (Chronic) Depressive disorder (Chronic) 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) Obesity (Chronic) Hypertension (Chronic) Diabetes type 2, uncontrolled (Chronic) Hyperlipidemia (Chronic) MRSA (Chronic) Cerebrovascular disease (Chronic) Status post acute ischemic stroke No residual deficit Diabetes mellitus (Chronic) Hospital Course and Treatment Summary of Care Provided: The patient is a 73 year old F [] - Physical Exam Vitals/I&O's: Vital Signs Temp Pulse Resp BP Pulse Ox 97.7 F L 73 16 153/70 H 98 09/08/19 09:32 09/08/19 09:36 09/08/19 09:32 09/08/19 09:36 09/08/19 13:00 Oxygen Flow Rate (L/min) 2 Oxygen Delivery Method Room Air Weight: 173 lb 4.533 oz Body Mass Index (BMI) 34.2 Finger Stick Blood Glucose 383 Intake and Output for Last 24 Hours 09/06/19 09/07/19 09/09/19 23:59 23:59 00:59 Intake Total 2284 / 2284 560 / 560 Output Total 2100 / 2100 500 / 500 Balance 184 / 184 60 / 60 Microbiology Past 72 Hours 09/06/19 15:40 Mucosa - Nasopharyngeal Influenza Types A,B Direct FA ([facility]) - Final Laboratory Results 09/07/19 16:14: POC Glucose 112 H 09/07/19 21:31: POC Glucose 93 09/08/19 04:21: POC Glucose 220 H 09/08/19 05:54: WBC 6.0, RBC 3.20 L, Hgb 9.4 L, Hct 28.9 L, MCV 90.3, MCH 29.4, MCHC 32.5, RDW Std Deviation 46.4 H, RDW Coeff of Kusum 14.1, Plt Count 157, MPV 11.3, Immature Gran % (Auto) 0.200, Neut % (Auto) 50.3, Lymph % (Auto) 38.6, [place] % (Auto) 6.9, Eos % (Auto) 3.0, Baso % (Auto) 1.0, Absolute Neuts (auto) 3.0, Absolute Lymphs (auto) 2.30, Nucleated RBC % 0 09/08/19 05:54: Sodium 137, Potassium 4.4, Chloride 103, Carbon Dioxide 27.0, Anion Gap 7, BUN 33 H, Creatinine 1.29 H, Estim Creat Clear Calc 27.90, Est GFR (MDRD) Af Amer 52 L, Est GFR (MDRD) Non-Af 43 L, BUN/Creatinine Ratio 25.6 H, Glucose 245 H, Calcium 8.5 09/08/19 07:35: POC Glucose 256 H 09/08/19 11:18: POC Glucose 216 H Current Medications Acetaminophen (Tylenol) 650 mg PO Q6H PRN PRN PRN Reason: Pain Score 1-10/Temp > 100.7 F Last Admin: 09/07/19 16:26 Dose: 650 mg Documented by: Albuterol Sulfate (Ventolin Aerosols) 2.5 mg INHALATION Q2H PRN PRN PRN Reason: DYSPNEA Amlodipine Besylate (Norvasc) 10 mg PO DAILY COUNTS INCLUDE 234 BEDS AT [facility] Last Admin: 09/08/19 09:37 Dose: 10 mg Documented by: Atorvastatin Calcium (Lipitor) 10 mg PO QHS COUNTS INCLUDE 234 BEDS AT [facility] Last Admin: 09/07/19 21:35 Dose: 10 mg Documented by: Furosemide (Lasix) 40 mg IV BID@1000,1800 COUNTS INCLUDE 234 BEDS AT [facility] Last Admin: 09/08/19 09:36 Dose: 40 mg Documented by: Gabapentin (Neurontin) 200 mg PO BIDCM COUNTS INCLUDE 234 BEDS AT [facility] Last Admin: 09/08/19 07:38 Dose: 200 mg Documented by: Glucagon () 1 mg IM .X1 PRN PRN Reason: Hypoglycemia Heparin Sodium (Porcine) (Heparin Na) 5,000 unit SC Q8 COUNTS INCLUDE 234 BEDS AT [facility] Last Admin: 09/08/19 06:49 Dose: Not Given Documented by: Dextrose (Dextrose 10%-Water) 250 mls @ 999 mls/hr IV .Q16M PRN; Protocol PRN Reason: HYPOGLYCEMIA Sodium Chloride () 250 mls @ 15 mls/hr IV .[id number] PRN PRN Reason: Saline Flush Sodium Chloride () 250 mls @ 15 mls/hr IV .[id number] PRN PRN Reason: Additional IVPB Infusion Insulin Glargine (Lantus (Bkc)) 30 units SC BID COUNTS INCLUDE 234 BEDS AT [facility] Last Admin: 09/08/19 07:39 Dose: 30 u Documented by: Insulin Human Lispro (Humalog Kwikpen (Bkc)) 0 unit SC ACHS COUNTS INCLUDE 234 BEDS AT [facility]; Protocol Last Admin: 09/08/19 11:20 Dose: 6 u Documented by: Insulin Human Lispro (Humalog Kwikpen (Bkc)) 16 unit SC TIDAC COUNTS INCLUDE 234 BEDS AT [facility] Last Admin: 09/08/19 11:21 Dose: 16 units Documented by: Isosorbide Mononitrate (Imdur) 30 mg PO DAILY COUNTS INCLUDE 234 BEDS AT [facility] Last Admin: 09/08/19 09:37 Dose: 30 mg Documented by: Lisinopril (Zestril) 20 mg PO DAILY COUNTS INCLUDE 234 BEDS AT [facility] Last Admin: 09/08/19 09:38 Dose: 20 mg Documented by: Metoprolol Tartrate (Lopressor (Beta Nataliia)) 25 mg PO BID COUNTS INCLUDE 234 BEDS AT [facility] Last Admin: 09/08/19 09:36 Dose: 25 mg Documented by: Nystatin (Mycostatin Powder) 1 applic TOPICAL BID COUNTS INCLUDE 234 BEDS AT [facility]; Protocol Last Admin: 09/08/19 09:37 Dose: 1 applicatio Documented by: Pantoprazole Sodium (Protonix) 40 mg PO DAILY COUNTS INCLUDE 234 BEDS AT [facility] Last Admin: 09/08/19 09:37 Dose: 40 mg Documented by: Sodium Chloride () 10 - 40 ml IV UD PRN PRN Reason: SALINE FLUSH Last Admin: 09/08/19 09:41 Dose: 10 ml Documented by: Trazodone HCl (Desyrel) 25 mg PO QHS COUNTS INCLUDE 234 BEDS AT [facility] Last Admin: 09/07/19 21:35 Dose: 25 mg Documented by: Addendum: Dr. Lee I personally examined the patient and reviewed the chart. I agree with the above. 73-year-old female with a history of diastolic CHF and diabetes presents with fluid overload and acute on chronic diastolic heart failure. She also had an elevated blood sugar of 632 when she had lost her glucometer. She will need a prescription for this on discharge. She was also placed on IV diuresis which is tolerated well, she is not needing any oxygen she had an ambulatory pulse ox today where she was 98% on room air. She will continue with Lasix p.o. twice daily as well as resume her home insulin regimen. She is to follow-up with her primary care doctor in 3 to 5 days. I also recommend that she take daily weights at home and that if she has any significant weight gain over a few day period that she can take an extra Lasix and call her primary care doctor. Inpatient E&M: [id number] [facility]
--- NOTE | 2019-09-08 14:58 | PCA ---
Patients script for Glucometer was faxed to [email or web address] [place], , per patient request.
--- NOTE | 2019-09-09 15:34 | CASEMGMT ---
Case Management DC F/u Call: DC Date: 09/08/2019 DC Diagnosis: Acute on chronic diastolic congestive heart failure secondary to hypertensive emergency, Type 2 diabetes with hyperglycemia Myelodysplastic syndrome, Tobacco abuse, Obstructive sleep apnea, not on home CPAP or BiPAP, GERD, COPD with no exacerbation, History of depression, anxiety, bipolar, multiple personality disorder, History of CVA DC Disposition: Home Lace/Strata: 14/10 Called patient listed cell phone on demographics, no answer and voicemail box not set up yet. Celio Morton RNCM
== END 2019-09-08 14:35 | disposition home or self-care (01) | DRG 304 ==
LOC: ED 15:32 → PCU 16:43
PROVIDERS: Hospitalist; Physician Assistant; Admitting Provider Internal Medicine; Emergency Provider Emergency Medicine; PCP Internal Medicine; Visit Provider Family Medicine
DX: I16.1 Hypertensive emergency (principal); I11.0 Hypertensive heart disease with heart failure; I50.33 Acute on chronic diastolic (congestive) heart failure; E11.65 Type 2 diabetes mellitus with hyperglycemia; T38.3X6A Underdosing of insulin and oral hypoglycemic [antidiabetic] drugs, initial encounter; E11.42 Type 2 diabetes mellitus with diabetic polyneuropathy; J44.9 Chronic obstructive pulmonary disease, unspecified; D46.9 Myelodysplastic syndrome, unspecified; I25.10 Atherosclerotic heart disease of native coronary artery without angina pectoris; G40.909 Epilepsy, unspecified, not intractable, without status epilepticus; M06.9 Rheumatoid arthritis, unspecified; G25.81 Restless legs syndrome; E78.5 Hyperlipidemia, unspecified; K21.9 Gastro-esophageal reflux disease without esophagitis; G47.33 Obstructive sleep apnea (adult) (pediatric); F44.81 Dissociative identity disorder; F31.9 Bipolar disorder, unspecified; F41.1 Generalized anxiety disorder; E66.9 Obesity, unspecified; Z68.34 Body mass index [BMI] 34.0-34.9, adult; F17.200 Nicotine dependence, unspecified, uncomplicated; Y92.9 Unspecified place or not applicable; Z79.4 Long term (current) use of insulin; Z79.899 Other long term (current) drug therapy; Z86.73 Personal history of transient ischemic attack (TIA), and cerebral infarction without residual deficits; Z86.14 Personal history of Methicillin resistant Staphylococcus aureus infection
CPT/HCPCS: 36415; 71045; 71046; 80048; 81001; 82009; 82947; 82962; 83735; 83880; 84484; 85025; 87804; 93005; 97161; 97165; 99285; 99406; A4216; J1940

== ENCOUNTER 2019-09-23 21:15 | Inpatient (IN) | payer MEDICARE, MEDICAID, SELFPAY ==
[2019-09-06 17:36] VITALS: BMI 34.2
[2019-09-23 21:15] VITALS: BP 167/68; PULSE 80; RESP 16; TEMP 36.8; O2SAT 100; BMI 34.2
--- NOTE | 2019-09-23 21:27 | ED.DCSUM_ITS ---
History of Present Illness Chief Complaint: Flank Pain Informant: Patient Onset: Today - Severe right sided pain Context: Sudden Onset Timing: Continuous Quality: Pain Location: Right side of the abdomen Current Severity: Severe Maximum Severity: Severe Worsened by: Apparently nothing Relieved by: Nothing Associated Symptoms: Nausea and vomiting today and diarrhea x3 days Narrative: Is a 73-year-old woman who presents with severe abdominal pain that started hours prior to presentation located in the right side. She is status post cholecystectomy and appendectomy. She denies history of renal ureterolithiasis. She does report nausea and vomiting today. She reports diarrhea for the past 3 days. Denies blood or mucus in the stool. When asked other questions she rolled in the bed moaning. Her speech is non-comprehensible. Nurse assist attempted to assist in obtaining history and understanding what patient sad and unable to understand. Since she is in severe pain will place IV medicate and re-interview her. Prior similar symptoms: No Recent Illness/Hospitalization: No - Past Medical History (1) Seizure disorder Status: Chronic (2) Stroke Status: Chronic (3) Coronary artery disease Status: Chronic (4) Depression Status: Chronic (5) Tobacco abuse Status: Inactive (6) Bipolar disorder Status: Chronic (7) Restless legs syndrome Status: Chronic (8) Rheumatoid arthritis Status: Chronic (9) Generalized anxiety disorder Status: Chronic (10) Intractable abdominal pain Status: Inactive (11) Acute exacerbation of CHF (congestive heart failure) Status: Chronic (12) ELENITA (obstructive sleep apnea) Status: Chronic (13) Peripheral neuropathy Status: Chronic (14) Esophageal reflux Status: Chronic (15) 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 Comment: nonhealing MRSA diabetic ulcer abdominal wall (16) Smoker Status: Inactive (17) Obesity Status: Chronic (18) Hypertension Status: Chronic (19) Hyperlipidemia Status: Chronic Past Medical History - Allergies and Home Meds Allergies/Adverse Reactions: Allergies ciprofloxacin [From Cipro] Allergy (Verified 09/23/19 21:20) Rash codeine Allergy (Verified 09/23/19 21:20) Shortness of breath Penicillins Allergy (Verified 09/23/19 21:20) Hives CILLINS Allergy (Uncoded 09/23/19 21:20) Unknown Primary Care Physician: Bailey Toribio MD [Primary Care Provider] - Prior records reviewed: Yes Surgical History: appendectomy, cataract, cholecystectomy, hysterectomy, tonsillectomy, - - Glaucoma, abdominal surgery for cyst. Lives: Alone Smoking Status: Current every day smoker Alcohol: None Drugs: None - Family History Maternal Family History: Reports: Cancer, Diabetes, Heart Disease, Hypertension Paternal Family History: Reports: Cancer, Heart Disease Review of Systems General: Denies: Chills, Fever, Malaise Eyes: Denies: Visual changes - bilaterally, Blurred Vision - bilaterally ENT: Denies: Rhinorrhea, Sore throat Cardiovascular: Denies: Chest pain, Palpitations Respiratory: Denies: Dyspnea, Cough, Sputum, Dyspnea on exertion Gastrointestinal: Reports: Abdominal pain, Nausea, Vomiting, Diarrhea. Denies: Constipation, Melena, Hematochezia Physical Exam Vital Signs/Narrative: Vital Signs Temp Pulse Resp BP Pulse Ox 09/23/19 21:15 98.2 F 80 16 167/68 H 100 Inital Vital Signs reviewed: Yes General: Well nourished, Well developed, Obese, Unkempt, No Acute Distress Head: Normocephalic, Atraumatic. Negative for: Trauma, Tenderness Eyes: Perrl, EOMI. Negative for: Pale conjunctiva, Scleral icterus ENT: No rhinorrhea, TM's clear, Dry mucous membranes Neck: Supple, Nontender, No lymphadenopathy, No JVD Cardiovascular: Regular rate, Regular rhythm, No murmurs, Normal S1, Normal S2 Respiratory: No distress, CTA bilaterally, Chest nontender Abdomen: Soft, Nontender, Nondistended, No masses, Hypoactive bowel sounds. Negative for: Normal bowel sounds, Hepatomegaly, Splenomegaly, Mass, Pulsatile mass Back: Negative for: Nontender, Normal Inspection Extremities: Nontender Skin: Normal color, No rash. Negative for: Cyanosis, Diaphoresis, Jaundice, No Trauma, Pallor, Rash Neurological: Alert, Oriented x3, Cranial nerves II-XII grossly intact, Normal Strength, Normal Sensation Psychological: Normal affect, Normal Mood Diagnostic/Tx/Re-eval Hemoglobin is 1.5 higher than normal. Creatinine has increased from 1.32-1.88. This would be consistent with patient's history of diarrhea and dehydration. UA reveals glucose, protein and microscopic hematuria. Is no evidence infection. CT was reviewed by me. She has significant atherosclerotic disease. She does have a 3.6 x 6.5 cm proximal right obstructing calculus. She is still in significant pain. However she is groggy and concerned she may develop CO2 retention since she has history of obstructive sleep apnea. Reluctant to give her more pain medicine. Unable to give Toradol since her creatinine has increased from 1.3-1.88. Will contact urology. Impressions Abdomen/Pelvis CT 09/23/19 22:38 IMPRESSION: 1. A 5 mm stone in the right proximal ureter, with proximal hydronephrosis. 2. Old healed granulomatous disease. Electronically Signed: Shawna Montana MD at 23:51 EDT Tel , Service support , 09/23/19 22:38 Abdomen/Pelvis without Cont [CT] Stat Laboratory Results 09/23/19 09/23/19 09/23/19 21:27 21:27 21:50 WBC 10.2 RBC 3.53 L Hgb 10.8 L Hct 33.3 L MCV 94.3 MCH 30.6 MCHC 32.4 RDW Std Deviation 45.5 H RDW Coeff of Kusum 13.3 Plt Count 207 MPV 9.8 Immature Gran % (Auto) 0.500 Neut % (Auto) 73.6 H Lymph % (Auto) 18.5 L [place] % (Auto) 5.0 Eos % (Auto) 1.9 Baso % (Auto) 0.5 Absolute Neuts (auto) 7.5 Absolute Lymphs (auto) 1.88 Nucleated RBC % 0 Sodium 137 Potassium 5.0 Chloride 106 Carbon Dioxide 25.0 Anion Gap 6 BUN 35 H Creatinine 1.88 H Estim Creat Clear Calc 19.14 Est GFR (MDRD) Af Amer 34 L Est GFR (MDRD) Non-Af 28 L BUN/Creatinine Ratio 18.6 Glucose 213 H Calcium 8.8 Total Bilirubin 0.40 AST 20 ALT 30 Alkaline Phosphatase 53 Total Protein 7.1 Albumin 3.4 Globulin 3.7 Albumin/Globulin Ratio 0.9 Urine Color Yellow Urine Clarity Clear Urine pH 6.0 Ur Specific [place] 1.015 Urine Protein 500 H Urine Glucose (UA) 100 H Urine Ketones Negative Urine Occult Blood 50 H Urine Nitrite Negative Urine Bilirubin Negative Urine Urobilinogen Normal Ur Leukocyte Esterase Negative Urine RBC 0-5 SEEN Urine WBC 0-5 SEEN Ur Squamous Epith Cells 0 SEEN Urine Bacteria 0 SEEN Urine Mucus 0 SEEN POC Glucose 09/23/19 22:03 WBC RBC Hgb Hct MCV MCH MCHC RDW Std Deviation RDW Coeff of [place] Plt Count MPV Immature Gran % (Auto) Neut % (Auto) Lymph % (Auto) [place] % (Auto) Eos % (Auto) Baso % (Auto) Absolute Neuts (auto) Absolute Lymphs (auto) Nucleated RBC % Sodium Potassium Chloride Carbon Dioxide Anion Gap BUN Creatinine Estim Creat Clear Calc Est GFR (MDRD) Af Amer Est GFR (MDRD) Non-Af BUN/Creatinine Ratio Glucose Calcium Total Bilirubin AST ALT Alkaline Phosphatase Total Protein Albumin Globulin Albumin/Globulin Ratio Urine Color Urine Clarity Urine pH Ur Specific [place] Urine Protein Urine Glucose (UA) Urine Ketones Urine Occult Blood Urine Nitrite Urine Bilirubin Urine Urobilinogen Ur Leukocyte Esterase Urine RBC Urine WBC Ur Squamous Epith Cells Urine Bacteria Urine Mucus POC Glucose 208 H - Medical Decision Making With the severe abrupt abdominal pain on the right side with nausea vomiting this may represent obstructing ureteral stone. Clinically she is dehydrated most likely from diarrhea for 2 3 days. In light of her multiple medical problems basic metabolic panel was obtained to assess glucose and anion gap. DKA can cause abdominal pain. Also to assess electrolytes and specifically potassium. UA was obtained to assess for evidence of infection and blood. CBC to assess H&H and white count. She was medicated with Zofran for her nausea and vomiting and morphine for her pain. ED Disposition - Plan for ED Patient: Disposition: Acute Care Hospital [facility] Diagnosis: Hydronephrosis with renal and ureteral calculus obstruction, Acute on chronic renal failure, Hyperglycemia due to type 2 diabetes mellitus Referrals: Bailey Toribio MD [Primary Care Provider] -
[2019-09-23] MEDS: Ondansetron 4 MG/2 ML Vial IV (21:31)
[2019-09-23] MEDS: Morphine 4 MG/ML Syringe IV (21:32)
[2019-09-23] MEDS: 0.9% Normal Saline 1,000 ML 1000 ML IV (21:32)
[2019-09-23 21:37] LABS: Absolute Lymphocyte Count 1.88 X10^3/uL (0.83-4.51); Absolute Neutrophil Count 7.5 X10^3/uL (2.0-7.7); Basophil# 0.05 X10^3/uL; Basophil% 0.5 % (0-1); Eosinophil# 0.19 X10^3/uL; Eosinophils% 1.9 % (0-5); Hematocrit 33.3 % (37-47); Hemoglobin 10.8 g/dL (12.0-15.0); Lymphocyte # 1.88 X10^3/ul (4.0); Lymphocyte % 18.5 % (19-41); Mean Corp Hgb Conc 32.4 g/dL (32-36); Mean Corpuscular Hgb 30.6 pg (27.0-32.0); Mean Corpuscular Volume 94.3 fL (81-99); Mean Platelet Vol. 9.8 fl (6.2-12.0); Monocyte# 0.51 X10^3/uL; NRBC Flagged by Analyzer 0 % (0-5); Neutrophil # 7.47 X10^3/uL (2.7-7.7); Neutrophil % 73.6 % (47-70); Platelet Count 207 K/mm3 (150-450); RBC Distribution Width CV 13.3 % (11.6-14.6); RBC Distribution Width SD 45.5 fl (35.1-43.9); Red Blood Count 3.53 M/mm3 (4.2-5.4); White Blood Count 10.2 K/mm3 (4.4-11.0)
[2019-09-23 21:53] LABS: Bacteria 0 SEEN /hpf (None Seen); Mucous, Urine 0 SEEN /hpf (<or=2+); Squamous Epithelial Cells - UA 0 SEEN /hpf (5-10)
[2019-09-23 21:53] LABS: ALB/GLOB Ratio 0.9 RATIO (0.9-2.4); AST(SGOT) 20 U/L (15-37); Alanine Aminotransfer ALT/SGPT 30 U/L (13-56); Albumin, Serum 3.4 g/dL (3.2-5.0); Alkaline Phosphatase 53 U/L (45-117); Anion Gap 6 (5-15); BUN 35 mg/dL (7-18); BUN/Creat Ratio 18.6 RATIO (10-20); Calcium,Total 8.8 mg/dL (8.5-10.1); Chloride 106 mmol/L (98-107); Creatinine, Serum 1.88 mg/dL (0.55-1.02); EST Glomerular Filtration Rate 28 mL/min (>60); Est Glom Filt Rate - Afr Amer 34 mL/min (>60); Estimated Creatinine Clearance 19.14 ml/min; Globulin 3.7 g/dL (2.2-4.2); Glucose 213 mg/dL (74-106); Protein, Total 7.1 g/dL (6.4-8.2); Sodium Level 137 mmol/L (136-145)
--- NOTE | 2019-09-23 21:54 | ED.RN ---
PT ARRIVES WRITHING IN PAIN, UNABLE TO ANSWER MANY INITIAL QUESTIONS. STATES SHE WAS JUST DC'D FROM HERE AND NOTHING HAS CHANGED.
[2019-09-23 22:03] LABS: Color, Urine Yellow (Yellow); Glucose, Dipstick 100 mg/dl (Normal); Ketone-Dipstick Negative (Negative); Leukocyte Esterase-Dipstick Negative /ul (Negative); Nitrite-Dipstick Negative (Negative); Occult Blood-Urine 50 /ul (Negative); Protein-Dipstick 500 mg/dl (Negative); Specific Gravity, Urine 1.015 (1.002-1.030); Urine Bilirubin Dipstick Negative (Negative); Urine Clarity Clear (Clear); Urine Urobilinogen Normal (Normal)
[2019-09-23 22:10] LABS: Bedside Glucose 208 mg/dL (70-110)
[2019-09-23 22:13] LABS: Red Blood Cells-Urine 0-5 SEEN /hpf (0-5); White Blood Cells 0-5 SEEN /hpf (0-5)
--- NOTE | 2019-09-23 22:38 | CT_ITS ---
STUDY: CT ABDOMEN AND PELVIS WITHOUT CONTRAST REASON FOR EXAM: Female, 73 years old. RT FLANK PAIN N/V/D. Hx of diabetes-Insulin, HTN, COPD, CHF and emphysema RADIATION DOSAGE (If Supplied By Facility): CTDIvol = ( 11.15 ) mGy, DLP = ( 702.95 ) mGycm TECHNIQUE: Transaxial images were obtained from the dome of the diaphragm to the symphysis pubis without oral contrast, and without intravenous contrast. Sagittal and coronal images were reconstructed. Individualized dose optimization techniques were used for this CT. COMPARISON: 06/21/2018. FINDINGS: Heart size is normal. Calcified granuloma in the right lung base. Mild fibrotic changes. Calcified nodes in the right inferior hilum. Several hepatic calcifications consistent with old granulomatous disease. The liver is otherwise unremarkable. Gallbladder is surgically absent. Multiple splenic granulomas. The spleen is otherwise unremarkable. Normal pancreas. The adrenal glands are normal. Normal left kidney. No stones or hydronephrosis. Mild right hydronephrosis. There is a 5 x 5 x 3 mm stone in the right proximal ureter. The right ureter is otherwise normal in course and caliber. The aorta is normal in caliber. There is no free fluid, free air, or organized collection. No bowel obstruction or inflammatory change. Diverticulosis. No acute diverticulitis. Urinary bladder is unremarkable. Normal abdominal wall. Normal osseous structures. CT/Abdomen/Pelvis without Cont IMPRESSION: 1. A 5 mm stone in the right proximal ureter, with proximal hydronephrosis. 2. Old healed granulomatous disease. Electronically Signed: Shawna Montana MD at 23:51 EDT Tel , Service support ,
--- NOTE | 2019-09-23 23:29 | ED.RN ---
PT WAS AWOKEN TO SEE HOW SHE WAS DOING. STATES HER PAIN IS 8/10, BUT FELL ASLEEP BEFORE ANSWERING ANY ADDITIONAL QUESTIONS. STILL UNABLE TO PROVIDE LIST OF MEDICATIONS.
[2019-09-24] VITALS (15 sets, daily range): BP systolic 123–165; BP diastolic 49–86; PULSE 71–90; RESP 14–18; TEMP 36.3–37.6; O2SAT 93–98; BMI 34.1
--- NOTE | 2019-09-24 00:34 | HP.PCM_ITS ---
Problem List (1) Kidney stone on right side Status: Acute (2) Seizure disorder Status: Chronic (3) Coronary artery disease Status: Chronic (4) Depression Status: Chronic (5) Tobacco abuse Status: Inactive (6) Bipolar disorder Status: Chronic (7) Multiple personality disorder Status: Chronic (8) Restless legs syndrome Status: Chronic (9) Rheumatoid arthritis Status: Chronic (10) Generalized anxiety disorder Status: Chronic (11) ELENITA (obstructive sleep apnea) Status: Chronic (12) Diabetes type 2, uncontrolled Status: Chronic History of Present Illness Date of Admission: 09/24/19 Chief Complaint: right side abdominal/flank pain The patient is a 73 year old female patient with a past medical history of diabetes multiple personality disorder, bipolar disorder, history of stroke, obstructive sleep apnea, obesity presents to the emergency room with acute onset of right flank pain that began earlier this evening associated with nausea and difficulty with urination. No fevers or chills, no chest pain shortness of breath or cough at this present time. Her pain was treated with morphine and unfortunately she became more somnolent yet still showed signs of discomfort. CT scan reveals a 5 mm proximal ureteral kidney stone. She will be admitted to general medical floor made n.p.o. and consult to urology. Past Medical History Past Medical History (Chronic Problems): Chronic Problems Seizure disorder (Chronic) Stroke (Chronic) Coronary artery disease (Chronic) Depression (Chronic) Bipolar disorder (Chronic) Multiple personality disorder (Chronic) Restless legs syndrome (Chronic) Rheumatoid arthritis (Chronic) Generalized anxiety disorder (Chronic) Acute exacerbation of CHF (congestive heart failure) (Chronic) ELENITA (obstructive sleep apnea) (Chronic) Acute on chronic renal failure (Chronic) ELENITA on CPAP (Chronic) COPD (chronic obstructive pulmonary disease) (Chronic) Peripheral neuropathy (Chronic) Esophageal reflux (Chronic) Depressive disorder (Chronic) 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) Obesity (Chronic) Hypertension (Chronic) Diabetes type 2, uncontrolled (Chronic) Hyperlipidemia (Chronic) MRSA (Chronic) Cerebrovascular disease (Chronic) Status post acute ischemic stroke No residual deficit Diabetes mellitus (Chronic) Allergies ciprofloxacin [From Cipro] Allergy (Verified 09/23/19 21:20) Rash codeine Allergy (Verified 09/23/19 21:20) Shortness of breath Penicillins Allergy (Verified 09/23/19 21:20) Hives CILLINS Allergy (Uncoded 09/23/19 21:20) Unknown Home Medications: Ambulatory Orders Medication Instructions Recorded Isosorbide Mononitrate [Isosorbide 30 mg PO DAILY 04/10/15 Mononitrate ER] Latanoprost 0.005% [Xalatan 1 drop EACH EYE QHS 05/03/18 Opthalmic] Insulin Lispro [Humalog KwikPen] 10 unit SUBCUT TIDCM 06/10/19 Famotidine 40 mg PO BID 06/29/19 Insulin Glargine [Lantus SoloStar 29 units SUBCUT QHS 06/29/19 Pen] traZODone [Desyrel] 25 mg PO QHS 06/29/19 Atorvastatin Calcium [Lipitor] 10 mg PO QHS 09/06/19 Ergocalciferol [Vitamin D] 50,000 unit PO QMONTH 09/06/19 Fexofenadine HCl 60 mg PO DAILY 09/06/19 Gabapentin 100 mg PO BID 09/06/19 Lactobacillus Acidophilus 1 tab PO DAILY 09/06/19 [Acidophilus] Amlodipine [Norvasc] 10 mg PO DAILY #30 tab 09/08/19 Furosemide [Lasix] 40 mg PO BID #60 tab 09/08/19 Insulin Glargine [Lantus SoloStar 25 units SUBCUT BID pen 09/08/19 Pen] Lisinopril [Zestril] 20 mg PO DAILY #30 tab 09/08/19 Metoprolol Tartrate [Lopressor 25 mg PO BID #60 tab 09/08/19 (beta carson)] Potassium Chloride [K-Dur] 10 meq PO DAILY #30 tab 09/08/19 Surgical History: appendectomy, cataract, cholecystectomy, hysterectomy, tonsillectomy, - - Glaucoma, abdominal surgery for cyst. Psychiatric History: Anxiety, Bipolar, Depression, - - Multiple personality disorder. 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 Denies: Vomiting Genitourinary: Reports: Dysuria Musculoskeletal: Denies: Joint Pain, Joint Tenderness Skin: Denies: Rash, Wounds Neurological: Denies: Numbness, Tingling, Focal weakness Psychiatric: Denies: Anxiety, Depression, Homicidal Ideations, Suicidal Ideations Hematologic/ Lymphatic: Denies: Easy Bruising, Easy Bleeding VTE Information - Inpt Only VTE Present on Admission: No VTE Mechan Device Prophylaxis: SCD's VTE Pharm Prophylaxis ordered?: No Patient Problems: Active and Suspected Problems Hydronephrosis with renal and ureteral calculus obstruction (Acute) Hyperglycemia due to type 2 diabetes mellitus (Acute) Kidney stone on right side (Acute) - Physical Exam Vitals/I&O's: Vital Signs Temp Pulse Resp BP Pulse Ox 98 F 84 16 149/66 H 95 09/24/19 00:13 09/24/19 00:13 09/24/19 00:13 09/24/19 00:13 09/24/19 00:13 Oxygen Delivery Method Room Air Weight: 175 lb Body Mass Index (BMI) 34.2 Finger Stick Blood Glucose 208 Intake and Output for Last 24 Hours 09/22/19 09/23/19 09/24/19 23:59 23:59 23:59 Intake Total 1000 / 1000 Balance 1000 / 1000 General: Alert, Cooperative, Lethargic HEENT: Atraumatic, Normocephalic Neck: Supple, No JVD Lungs: Clear to auscultation, Normal air movement Cardiovascular: Regular rate, No murmurs Abdomen: Bowel Sounds Present, Obese, Tender - right flank Extremities: No edema Skin: No rashes, No breakdown Musculoskeletal: No Tenderness to Palpation of Joints or Extremities Neurological: Neuro grossly intact Psych/Mental Status: Normal Affect, Appropriate Laboratory Results 09/23/19 21:27: WBC 10.2, RBC 3.53 L, Hgb 10.8 L, Hct 33.3 L, MCV 94.3, MCH 30.6, MCHC 32.4, RDW Std Deviation 45.5 H, RDW Coeff of Kusum 13.3, Plt Count 207, MPV 9.8, Immature Gran % (Auto) 0.500, Neut % (Auto) 73.6 H, Lymph % (Auto) 18.5 L, [place] % (Auto) 5.0, Eos % (Auto) 1.9, Baso % (Auto) 0.5, Absolute Neuts (auto) 7.5, Absolute Lymphs (auto) 1.88, Nucleated RBC % 0 09/23/19 21:27: Sodium 137, Potassium 5.0, Chloride 106, Carbon Dioxide 25.0, Anion Gap 6, BUN 35 H, Creatinine 1.88 H, Estim Creat Clear Calc 19.14, Est GFR (MDRD) Af Amer 34 L, Est GFR (MDRD) Non-Af 28 L, BUN/Creatinine Ratio 18.6, Glucose 213 H, Calcium 8.8, Total Bilirubin 0.40, AST 20, ALT 30, Alkaline Phosphatase 53, Total Protein 7.1, Albumin 3.4, Globulin 3.7, Albumin/Globulin Ratio 0.9 09/23/19 21:50: Urine Color Yellow, Urine Clarity Clear, Urine pH 6.0, Ur Specific [place] 1.015, Urine Protein 500 H, Urine Glucose (UA) 100 H, Urine Ketones Negative, Urine Occult Blood 50 H, Urine Nitrite Negative, Urine Bilirubin Negative, Urine Urobilinogen Normal, Ur Leukocyte Esterase Negative, Urine RBC 0-5 SEEN, Urine WBC 0-5 SEEN, Ur Squamous Epith Cells 0 SEEN, Urine Bacteria 0 SEEN, Urine Mucus 0 SEEN 09/23/19 22:03: POC Glucose 208 H Assessment/Plan All Active Problems Concussion (Resolved) CAP (community acquired pneumonia) (Resolved) Chest pain (Acute) Acute kidney injury (Acute) Hydronephrosis with renal and ureteral calculus obstruction (Acute) Hyperglycemia due to type 2 diabetes mellitus (Acute) Kidney stone on right side (Acute) Hyperglycemia (Acute) Chronic Problems Seizure disorder (Chronic) Stroke (Chronic) Coronary artery disease (Chronic) Depression (Chronic) Bipolar disorder (Chronic) Multiple personality disorder (Chronic) Restless legs syndrome (Chronic) Rheumatoid arthritis (Chronic) Generalized anxiety disorder (Chronic) Acute exacerbation of CHF (congestive heart failure) (Chronic) ELENITA (obstructive sleep apnea) (Chronic) Acute on chronic renal failure (Chronic) ELNEITA on CPAP (Chronic) COPD (chronic obstructive pulmonary disease) (Chronic) Peripheral neuropathy (Chronic) Esophageal reflux (Chronic) Depressive disorder (Chronic) 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) Obesity (Chronic) Hypertension (Chronic) Diabetes type 2, uncontrolled (Chronic) Hyperlipidemia (Chronic) MRSA (Chronic) Cerebrovascular disease (Chronic) Status post acute ischemic stroke No residual deficit Diabetes mellitus (Chronic) Plan 1. 5 mm right proximal ureter stone?admit to general medical floor, consult urology Dr. Butts, IV normal saline at 100 cc/h, morphine 1 mg IV every 3 hours as needed pain, Zofran 4 mg IV every 6 hours as needed nausea. 2. Diabetes?continue current medication may start sliding scale insulin if necessary. 3. Hypertension, monitor for now may need PRN medication while n.p.o. 4. Hyperlipidemia?hold statin 5. DVT prophylaxis?SCDs Inpatient E&M: 28109 Init Hosp L3
[2019-09-24] MEDS: 0.9% Normal Saline 1,000 ML 100 ML IV ×3 (02:10→22:36)
[2019-09-24] MEDS: Morphine 2 MG/ML Syringe 1 MG IV (02:23)
[2019-09-24] MEDS: Ketorolac 15 MG/ML Vial IV ×2 (04:47→22:38)
[2019-09-24] MEDS: Ondansetron 4 MG/2 ML Vial IV (04:47)
[2019-09-24] MEDS: 0.9% Saline Lock 10 ML Syringe IV (04:47)
--- NOTE | 2019-09-24 06:00 | EKG12_ITS ---
Test Reason : Blood Pressure : / mmHG Vent. Rate : 089 BPM Atrial Rate : 089 BPM P-R Int : 130 ms QRS Dur : 084 ms QT Int : 362 ms P-R-T Axes : 057 059 040 degrees QTc Int : 440 ms Normal sinus rhythm Normal ECG When compared with ECG of 06-SEP-2019 15:37, No significant change was found Confirmed by HAYES MADSEN ([id number]), make up editor JUNA NEELY ([id number]) on 09/26/2019 8:01:25 AM Referred By: Confirmed By:HAYES MADSEN
[2019-09-24 06:47] LABS: Absolute Lymphocyte Count 0.74 X10^3/uL (0.83-4.51); Absolute Neutrophil Count 8.3 X10^3/uL (2.0-7.7); Basophil# 0.03 X10^3/uL; Basophil% 0.3 % (0-1); Hematocrit 32.8 % (37-47); Hemoglobin 10.6 g/dL (12.0-15.0); Lymphocyte # 0.74 X10^3/ul (4.0); Lymphocyte % 7.9 % (19-41); Mean Corp Hgb Conc 32.3 g/dL (32-36); Mean Corpuscular Hgb 29.9 pg (27.0-32.0); Mean Corpuscular Volume 92.7 fL (81-99); Mean Platelet Vol. 10.2 fl (6.2-12.0); Monocyte# 0.29 X10^3/uL; Monocyte% 3.1 % (0-10); NRBC Flagged by Analyzer 0 % (0-5); Neutrophil # 8.25 X10^3/uL (2.7-7.7); Neutrophil % 88.3 % (47-70); Platelet Count 181 K/mm3 (150-450); RBC Distribution Width CV 13.3 % (11.6-14.6); RBC Distribution Width SD 45.4 fl (35.1-43.9); Red Blood Count 3.54 M/mm3 (4.2-5.4); White Blood Count 9.4 K/mm3 (4.4-11.0)
[2019-09-24 07:10] LABS: Anion Gap 10 (5-15); BUN 36 mg/dL (7-18); BUN/Creat Ratio 18.5 RATIO (10-20); Calcium,Total 8.6 mg/dL (8.5-10.1); Chloride 105 mmol/L (98-107); Creatinine, Serum 1.95 mg/dL (0.55-1.02); EST Glomerular Filtration Rate 27 mL/min (>60); Est Glom Filt Rate - Afr Amer 32 mL/min (>60); Estimated Creatinine Clearance 18.46 ml/min; Glucose 334 mg/dL (74-106); Potassium 5.7 mmol/L (3.5-5.1); Sodium Level 137 mmol/L (136-145)
--- NOTE | 2019-09-24 07:39 | PCM.CONS.U ---
Problem List (1) Obstruction of right ureteropelvic junction (UPJ) due to stone Status: Acute Comment: Right side Reason for Consult Date of Consultation: 09/23/19 Reason for Consultation: Obstructing right renal calculi at the UPJ severe hydronephrosis uncontrollable pain History of Present Illness: The patient is a 73 year old female with multiple medical issues who presents the hospital with severe right flank pain CAT scan was done that demonstrated a obstructing stone in the proximal right ureter today she is n.p.o. clinically stable no signs of sepsis or infection but she is having severe pain in her difficult to control. Plan is to intervene today and place a stent. Past Medical History Past Medical History (Chronic Problems): Chronic Problems Seizure disorder (Chronic) Stroke (Chronic) Coronary artery disease (Chronic) Depression (Chronic) Bipolar disorder (Chronic) Multiple personality disorder (Chronic) Restless legs syndrome (Chronic) Rheumatoid arthritis (Chronic) Generalized anxiety disorder (Chronic) Acute exacerbation of CHF (congestive heart failure) (Chronic) ELENITA (obstructive sleep apnea) (Chronic) Acute on chronic renal failure (Chronic) ELENITA on CPAP (Chronic) COPD (chronic obstructive pulmonary disease) (Chronic) Peripheral neuropathy (Chronic) Esophageal reflux (Chronic) Depressive disorder (Chronic) 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) Obesity (Chronic) Hypertension (Chronic) Diabetes type 2, uncontrolled (Chronic) Hyperlipidemia (Chronic) MRSA (Chronic) Cerebrovascular disease (Chronic) Status post acute ischemic stroke No residual deficit Diabetes mellitus (Chronic) Allergies ciprofloxacin [From Cipro] Allergy (Verified 09/23/19 21:20) Rash codeine Allergy (Verified 09/23/19 21:20) Shortness of breath Penicillins Allergy (Verified 09/23/19 21:20) Hives CILLINS Allergy (Uncoded 09/23/19 21:20) Unknown Home Medications: Ambulatory Orders Medication Instructions Recorded Isosorbide Mononitrate [Isosorbide 30 mg PO DAILY 04/10/15 Mononitrate ER] Latanoprost 0.005% [Xalatan 1 drop EACH EYE QHS 05/03/18 Opthalmic] Insulin Lispro [Humalog KwikPen] 10 unit SUBCUT TIDCM 06/10/19 Famotidine 40 mg PO BID 12/28/19 Insulin Glargine [Lantus SoloStar 29 units SUBCUT QHS 06/29/19 Pen] traZODone [Desyrel] 25 mg PO QHS 06/29/19 Atorvastatin Calcium [Lipitor] 10 mg PO QHS 09/06/19 Ergocalciferol [Vitamin D] 50,000 unit PO QMONTH 09/06/19 Fexofenadine HCl 60 mg PO DAILY 09/06/19 Gabapentin 100 mg PO BID 09/06/19 Lactobacillus Acidophilus 1 tab PO DAILY 09/06/19 [Acidophilus] Amlodipine [Norvasc] 10 mg PO DAILY #30 tab 09/08/19 Furosemide [Lasix] 40 mg PO BID #60 tab 09/08/19 Insulin Glargine [Lantus SoloStar 25 units SUBCUT BID pen 09/08/19 Pen] Lisinopril [Zestril] 20 mg PO DAILY #30 tab 09/08/19 Metoprolol Tartrate [Lopressor 25 mg PO BID #60 tab 09/08/19 (beta carson)] Potassium Chloride [K-Dur] 10 meq PO DAILY #30 tab 09/08/19 Surgical History: appendectomy, cataract, cholecystectomy, hysterectomy, tonsillectomy, - - Glaucoma, abdominal surgery for cyst. Psychiatric History: Anxiety, Bipolar, Depression, - - Multiple personality disorder. 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 Denies: Nausea, Vomiting Genitourinary: Denies: Dysuria Musculoskeletal: Denies: Joint Pain, Joint Tenderness Skin: Denies: Rash, Wounds Neurological: Denies: Numbness, Tingling, Focal weakness Psychiatric: Denies: Anxiety, Depression, Homicidal Ideations, Suicidal Ideations Hematologic/ Lymphatic: Denies: Easy Bruising, Easy Bleeding Physical Exam - Physical Exam Vital Signs Temp 97.8 F 09/24/19 02:43 Pulse 86 09/24/19 02:43 Resp 18 09/24/19 02:43 BP 156/55 H 09/24/19 02:43 Pulse Ox 95 09/24/19 02:43 Intake & Output 09/22/19 09/23/19 09/24/19 23:59 23:59 23:59 Intake Total 1000 / 1000 Output Total 400 / 400 Balance 1000 / 1000 -400 / -400 Weight: 79.379 kg 79.2 kg Intake: Intake, IV Amount 1000 / 1000 0.9% Normal Saline 1,000 ML @ 1000 / 1000 1000 mls/hr IV .Q1H ONE Rx#: [id number] Output: Urine 400 / 400 Other: Incontinent Amount Urine #2 Small Number of times incontinent 1 Urine #2 General: Alert, Oriented x3 HEENT: Atraumatic Oral: Moist Mucosa Neck: Supple Lungs: Clear to auscultation, Normal air movement Cardiovascular: Regular rate, Regular Rhythm Abdomen: Soft, Obese Rectal: Exam deferred Laboratory Tests Past 24 Hrs 09/23/19 09/23/19 09/23/19 21:27 21:27 21:50 WBC 10.2 RBC 3.53 L Hgb 10.8 L Hct 33.3 L MCV 94.3 MCH 30.6 MCHC 32.4 RDW Std Deviation 45.5 H RDW Coeff of [place] 13.3 Plt Count 207 MPV 9.8 Immature Gran % (Auto) 0.500 Neut % (Auto) 73.6 H Lymph % (Auto) 18.5 L Moffat % (Auto) 5.0 Eos % (Auto) 1.9 Baso % (Auto) 0.5 Absolute Neuts (auto) 7.5 Absolute Lymphs (auto) 1.88 Nucleated RBC % 0 Sodium 137 Potassium 5.0 Chloride 106 Carbon Dioxide 25.0 Anion Gap 6 BUN 35 H Creatinine 1.88 H Estim Creat Clear Calc 19.14 Est GFR (MDRD) Af Amer 34 L Est GFR (MDRD) Non-Af 28 L BUN/Creatinine Ratio 18.6 Glucose 213 H Hemoglobin A1c Calcium 8.8 Total Bilirubin 0.40 AST 20 ALT 30 Alkaline Phosphatase 53 Total Protein 7.1 Albumin 3.4 Globulin 3.7 Albumin/Globulin Ratio 0.9 Urine Color Yellow Urine Clarity Clear Urine pH 6.0 Ur Specific [place] 1.015 Urine Protein 500 H Urine Glucose (UA) 100 H Urine Ketones Negative Urine Occult Blood 50 H Urine Nitrite Negative Urine Bilirubin Negative Urine Urobilinogen Normal Ur Leukocyte Esterase Negative Urine RBC 0-5 SEEN Urine WBC 0-5 SEEN Ur Squamous Epith Cells 0 SEEN Urine Bacteria 0 SEEN Urine Mucus 0 SEEN 09/24/19 09/24/19 09/24/19 06:27 06:27 06:27 WBC 9.4 RBC 3.54 L Hgb 10.6 L Hct 32.8 L MCV 92.7 MCH 29.9 MCHC 32.3 RDW Std Deviation 45.4 H RDW Coeff of [place] 13.3 Plt Count 181 MPV 10.2 Immature Gran % (Auto) 0.400 Neut % (Auto) 88.3 H Lymph % (Auto) 7.9 L Moffat % (Auto) 3.1 Eos % (Auto) 0.0 Baso % (Auto) 0.3 Absolute Neuts (auto) 8.3 H Absolute Lymphs (auto) 0.74 L Nucleated RBC % 0 Sodium 137 Potassium 5.7 H Chloride 105 Carbon Dioxide 22.0 Anion Gap 10 BUN 36 H Creatinine 1.95 H Estim Creat Clear Calc 18.46 Est GFR (MDRD) Af Amer 32 L Est GFR (MDRD) Non-Af 27 L BUN/Creatinine Ratio 18.5 Glucose 334 H Hemoglobin A1c Pending Calcium 8.6 Total Bilirubin AST ALT Alkaline Phosphatase Total Protein Albumin Globulin Albumin/Globulin Ratio Urine Color Urine Clarity Urine pH Ur Specific [place] Urine Protein Urine Glucose (UA) Urine Ketones Urine Occult Blood Urine Nitrite Urine Bilirubin Urine Urobilinogen Ur Leukocyte Esterase Urine RBC Urine WBC Ur Squamous Epith Cells Urine Bacteria Urine Mucus Assessment/Plan All Active Problems Concussion (Resolved) CAP (community acquired pneumonia) (Resolved) Chest pain (Acute) Acute kidney injury (Acute) Hydronephrosis with renal and ureteral calculus obstruction (Acute) Hyperglycemia due to type 2 diabetes mellitus (Acute) Kidney stone on right side (Acute) Obstruction of right ureteropelvic junction (UPJ) due to stone (Acute) Hyperglycemia (Acute) 73-year-old female presents with obstructing stone and severe renal colic severe hydronephrosis high-grade obstruction. Plan to take her surgery today for cystoscopy and stent placement and then will see if we can get set up as soon as possible may be tomorrow for shockwave lithotripsy for the stone I have my office coordinate this.
[2019-09-24 07:45] LABS: Bedside Glucose 317 mg/dL (70-110)
[2019-09-24 08:05] LABS: Hemoglobin A1c 10.3 % (4.2-6.3)
--- NOTE | 2019-09-24 09:36 | NURSING ---
Dr. Toribio's office called for med list, states they will fax
[2019-09-24 11:11] LABS: Bedside Glucose 281 mg/dL (70-110)
--- NOTE | 2019-09-24 12:31 | PCM.PN.BLA ---
Progress Note This is a 73 years old female patient presented to the emergency room because of right flank pain, found to have right proximal ureter 5 mm stone with hydronephrosis and she was found to have acute kidney injury on top of stage III chronic kidney disease. She is still symptomatic with right flank pain. Blood pressure is slightly related, other vital signs are stable. Urology consulted and plan for cystoscopy and stent placement today. Will repeat CBC and BMP tomorrow morning. STROKE Vital Signs/Narrative: Vital Signs Temp Pulse Resp BP Pulse Ox 09/24/19 08:43 98.3 F 88 18 165/70 H 96
[2019-09-24] MEDS: Metoprolol Tartrate 25 MG Tablet PO ×2 (14:00→22:37)
[2019-09-24 14:21] LABS: Bedside Glucose 236 mg/dL (70-110)
--- NOTE | 2019-09-24 15:43 | PCM.OPRPT ---
Problem List (1) Obstruction of right ureteropelvic junction (UPJ) due to stone Status: Acute Comment: Right side Report of Operation Date of Procedure: 09/24/19 Pre-Operative Diagnosis: Obstructing right proximal ureteral calculi Post-Operative Diagnosis: Same Surgery/Procedure Performed:: Cystoscopy right stent placement, right retrograde pyelogram interpretation fluoroscopic images. Description of Surgical Findings:: Patient presented to the hospital with an obstructing stone and severe renal colic. Possible that the patient may have an infection. Has not been able to control the pain and is in the hospital and today were to take the patient back to the operating room for a stent placement. Patient understands a stent can cause discomfort and bother blood in the urine. Patient also knows that is possible there may be an underlying infection. We discussed the reason for the stent all the questions were addressed and proceed with cystoscopy and stent placement on the right. Patient was taken back to the operating room and was placed supine on the table after induction of anesthesia was placed in dorsolithotomy position with legs in stirrups. The urethra was prepped and draped in usual sterile fashion went into the bladder with a 21 [place] rigid cystourethroscope, the urethra was normal, the bladder findings were normal , I then cannulated the right ureter advanced a wire up into the kidney performed a retrograde pyelogram interpreted the fluoroscopic images could see contrast going up. Then over the wire I advanced a stent it was 6 x 26 cm stent , once a stent was in good position I pulled the wire and the stent coiled in the kidney and bladder good position and I drained the bladder patient's anesthetic is reversed and was taken back to the PACU in good condition. Type of Anesthesia:: General Drains: Stent right side - Admit VTE Documentation VTE Present on Admission: No VTE Mechan Device Prophylaxis: SCD's
[2019-09-24 17:00] LABS: Bedside Glucose 232 mg/dL (70-110)
[2019-09-24 17:32] LABS: Potassium 5.1 mmol/L (3.5-5.1)
[2019-09-24] MEDS: Insulin Lispro 100 UNIT/ML INSULN.PEN 10 UNIT SC (17:34)
[2019-09-24] MEDS: traZODone 50 MG Tablet PO (22:36)
[2019-09-24] MEDS: Atorvastatin Calcium 10 MG Tablet PO (22:37)
[2019-09-24] MEDS: Gabapentin 100 MG Capsule 200 MG PO (22:37)
[2019-09-24] MEDS: Latanoprost 0.005% 1 Bottle 1 DRP EACH EYE (22:38)
[2019-09-24 23:21] LABS: Bedside Glucose 255 mg/dL (70-110)
[2019-09-25] VITALS (11 sets, daily range): BP systolic 124–162; BP diastolic 55–69; PULSE 71–79; RESP 16–18; TEMP 36.4–37.1; O2SAT 90–96; BMI 34.1
[2019-09-25 06:12] LABS: Absolute Lymphocyte Count 2.02 X10^3/uL (0.83-4.51); Absolute Neutrophil Count 6.6 X10^3/uL (2.0-7.7); Basophil# 0.04 X10^3/uL; Basophil% 0.4 % (0-1); Eosinophil# 0.14 X10^3/uL; Eosinophils% 1.5 % (0-5); Hematocrit 26.7 % (37-47); Hemoglobin 8.5 g/dL (12.0-15.0); Lymphocyte # 2.02 X10^3/ul (4.0); Lymphocyte % 21.6 % (19-41); Mean Corp Hgb Conc 31.8 g/dL (32-36); Mean Corpuscular Hgb 29.9 pg (27.0-32.0); Mean Platelet Vol. 10.3 fl (6.2-12.0); Monocyte# 0.56 X10^3/uL; NRBC Flagged by Analyzer 0 % (0-5); Neutrophil # 6.56 X10^3/uL (2.7-7.7); Neutrophil % 70.2 % (47-70); Platelet Count 137 K/mm3 (150-450); RBC Distribution Width CV 13.6 % (11.6-14.6); RBC Distribution Width SD 46.8 fl (35.1-43.9); Red Blood Count 2.84 M/mm3 (4.2-5.4); White Blood Count 9.4 K/mm3 (4.4-11.0)
[2019-09-25 06:42] LABS: Anion Gap 8 (5-15); BUN 36 mg/dL (7-18); BUN/Creat Ratio 20.1 RATIO (10-20); Calcium,Total 7.7 mg/dL (8.5-10.1); Chloride 110 mmol/L (98-107); Creatinine, Serum 1.79 mg/dL (0.55-1.02); EST Glomerular Filtration Rate 29 mL/min (>60); Est Glom Filt Rate - Afr Amer 36 mL/min (>60); Estimated Creatinine Clearance 20.11 ml/min; Glucose 155 mg/dL (74-106); Potassium 4.6 mmol/L (3.5-5.1); Sodium Level 140 mmol/L (136-145)
[2019-09-25] MEDS: 0.9% Normal Saline 1,000 ML 100 ML IV (09:04)
[2019-09-25] MEDS: amLODIPine 10 MG Tablet PO (09:06)
[2019-09-25] MEDS: Famotidine 20 MG Tablet PO (09:06)
[2019-09-25] MEDS: Metoprolol Tartrate 25 MG Tablet PO (09:06)
[2019-09-25] MEDS: Gabapentin 100 MG Capsule 200 MG PO (09:06)
[2019-09-25] MEDS: Isosorbide Mononitrate 30 MG Tablet PO (09:07)
[2019-09-25 11:21] LABS: Bedside Glucose 60 mg/dL (70-110)
--- NOTE | 2019-09-25 11:32 | CASEMGMT ---
RN CM Note: attempted to see pt for RN CM assessment. Pt is leaving for procedure at this time. Rangel WEIRN RN ACM
[2019-09-25] MEDS: Dextrose 5% 250 ML 100 ML IV (12:00)
[2019-09-25] MEDS: Cefazolin 2 GM in 0.9% Normal Saline 100 ML IV (12:40)
--- NOTE | 2019-09-25 13:15 | PCM.DC.URO ---
Discharge Diet: Light diet - advance as tolerated Discharge Activity: Return to Normal Activity Call your doctor if your incision/area has: Sudden Increased Bleeding Instructions: Shock Wave Lithotripsy Allergies/Adverse Reactions: Allergies ciprofloxacin [From Cipro] Allergy (Verified 09/23/19 21:20) Rash codeine Allergy (Verified 09/23/19 21:20) Shortness of breath Penicillins Allergy (Verified 09/23/19 21:20) Hives CILLINS Allergy (Uncoded 09/23/19 21:20) Unknown Medications to take at Discharge Isosorbide Mononitrate [Isosorbide Mononitrate ER] 30 mg PO DAILY 04/10/15 Latanoprost 0.005% [Xalatan Opthalmic] 1 drop EACH EYE QHS 05/03/18 Insulin Lispro [Humalog KwikPen] 10 unit SUBCUT TIDCM 06/10/19 Famotidine 40 mg PO BID 06/29/19 Insulin Glargine [Lantus SoloStar Pen] 29 units SUBCUT QHS 06/29/19 traZODone [Desyrel] 50 mg PO QHS 06/29/19 Atorvastatin Calcium [Lipitor] 10 mg PO QHS 09/06/19 Ergocalciferol [Vitamin D] 50,000 unit PO QMONTH 09/06/19 Fexofenadine HCl 60 mg PO DAILY 09/06/19 Gabapentin 200 mg PO BID 09/06/19 Lactobacillus Acidophilus [Acidophilus] 1 tab PO DAILY 09/06/19 Amlodipine [Norvasc] 10 mg PO DAILY #30 tab 09/08/19 Metoprolol Tartrate [Lopressor (beta carson)] 25 mg PO BID #60 tab 09/08/19 Fluticasone 0.05% [Flonase Nasal [place]] 2 spray NASAL DAILY 09/24/19 Furosemide [Lasix] 40 mg PO DAILY 09/24/19 Lisinopril [Prinivil] 15 mg PO DAILY 09/24/19 Potassium Chloride [Klor-Con M20] 20 meq PO TID 09/24/19 Zaroxolyn 10 mg PO DAILY 09/24/19 Primary Care Physician: Bailey Toribio MD [Primary Care Provider] - Test Results: Test results from this visit will be discussed in further detail at your follow-up appointment, if applicable. Please Follow Up With: Timmy Butts MD - [phone] When: please call to make an appointment.
--- NOTE | 2019-09-25 13:22 | PCM.OPRPT ---
Problem List (1) Obstruction of right ureteropelvic junction (UPJ) due to stone Status: Acute Comment: Right side Report of Operation Date of Procedure: 09/25/19 Pre-Operative Diagnosis: Right kidney stone status post stent Post-Operative Diagnosis: Same Surgery/Procedure Performed:: Right extracorporeal shockwave lithotripsy Description of Surgical Findings:: The patient presents to the hospital today for treatment of a calculus with shockwave lithotripsy. We discussed how the procedure is done expected outcomes. The Patient understands it is possible the stone may not break successfully and may require further procedures. We talked about the risks of the shockwave lithotripsy including risk of infection, bleeding, failure to break the stone, bleeding from the kidney or retroperitoneal bleeding and a very rare risk of a blood transfusion. We discused the risk of anesthesia. All the patient's questions were addressed and answered before the surgery and the patient signed the consent form. The patient was taken back to the operating room and after smooth induction of anesthesia was transferred onto the lithotripter table, fluoroscopy was used to identify the stone next to the stent and then used triangulation technique to make sure the stone was in the F2 focal point of the lithotripter. Shockwave lithotripsy was started at a rate of 90/min and a total of 2000 shockwaves were delivered to the stone. During the treatment the stone was monitored with fluoroscopy to ensure that the stone maintained in the treatment zone and als fragmentation was monitored under fluoroscopy. Lithotripsy power used during the treatment was modified according to the fragmentation protocol and ranged from 5 to 9 kV depending on the location of the stone within the ureter and the kidney. After the completion of the therapy session the patient's anesthetic was reversed and was taken back to the PACU in stable condition. Type of Anesthesia:: General Drains: Stent in place right side - Admit VTE Documentation VTE Present on Admission: No VTE Mechan Device Prophylaxis: SCD's
[2019-09-25 13:35] LABS: Bedside Glucose 88 mg/dL (70-110)
--- NOTE | 2019-09-25 15:06 | DCINST_ITS ---
- Discharge Diagnoses Current Active Problems: Current Active and Chronic Problems Hydronephrosis with renal and ureteral calculus obstruction (Acute) Acute on chronic renal failure (Chronic) Hyperglycemia due to type 2 diabetes mellitus (Acute) Kidney stone on right side (Acute) Obstruction of right ureteropelvic junction (UPJ) due to stone (Acute) Right side You will use the following diet at home:: Calorie/Carbohydrate Controlled (specify 1200, 1400, etc) - 1800 amanda., Cardiac Your food should be the consistency of: Regular Discharge Activity: Return to Normal Activity Weight Bearing Status: Weight bearing as tolerated Call your doctor if your incision/area has: Sudden Increased Bleeding Call your doctor if you observe: Fever of 101 or Higher, Shortness of breath, Dizziness, Fainting spells, Chest pain, Increased palpitations (irregular heartbeat), Uncontrolled pain Instructions: Shock Wave Lithotripsy Allergies/Adverse Reactions: Allergies ciprofloxacin [From Cipro] Allergy (Verified 09/23/19 21:20) Rash codeine Allergy (Verified 09/23/19 21:20) Shortness of breath Penicillins Allergy (Verified 09/23/19 21:20) Hives CILLINS Allergy (Uncoded 09/23/19 21:20) Unknown Medications to take at Discharge Isosorbide Mononitrate [Isosorbide Mononitrate ER] 30 mg PO DAILY 04/10/15 Latanoprost 0.005% [Xalatan Opthalmic] 1 drop EACH EYE QHS 05/03/18 Insulin Lispro [Humalog KwikPen] 10 unit SUBCUT TIDCM 06/10/19 Famotidine 40 mg PO BID 06/29/19 Insulin Glargine [Lantus SoloStar Pen] 29 units SUBCUT QHS 06/29/19 traZODone [Desyrel] 50 mg PO QHS 06/29/19 Atorvastatin Calcium [Lipitor] 10 mg PO QHS 09/06/19 Ergocalciferol [Vitamin D] 50,000 unit PO QMONTH 09/06/19 Fexofenadine HCl 60 mg PO DAILY 09/06/19 Gabapentin 200 mg PO BID 09/06/19 Lactobacillus Acidophilus [Acidophilus] 1 tab PO DAILY 09/06/19 Amlodipine [Norvasc] 10 mg PO DAILY #30 tab 09/08/19 Metoprolol Tartrate [Lopressor (beta carson)] 25 mg PO BID #60 tab 09/08/19 Fluticasone 0.05% [Flonase Nasal [place]] 2 spray NASAL DAILY 09/24/19 Furosemide [Lasix] 40 mg PO DAILY 09/24/19 Lisinopril [Prinivil] 15 mg PO DAILY 09/24/19 Potassium Chloride [Klor-Con M20] 20 meq PO TID 09/24/19 Zaroxolyn 10 mg PO DAILY 09/24/19 Primary Care Physician: Bailey Toribio MD [Primary Care Provider] - Please follow up with your Primary Care Physician in: 1 week. Test Results: Test results from this visit will be discussed in further detail at your follow- up appointment, if applicable. Please Follow Up With: Timmy Butts MD - [phone] When: please call to make an appointment.
--- NOTE | 2019-09-25 15:07 | PCM.DC.SUM ---
Discharge Date and Diagnosis Date of Admission: 09/24/19 Date of Discharge: 09/25/19 - Primary Discharge Diagnosis Active and Suspected Problems #1 right proximal ureteral stone/proximal hydronephrosis, status post right ureteral stent placement and right extracorporeal shockwave lithotripsy. #2 acute kidney injury on top of stage III chronic kidney disease. - Secondary Discharge Diagnosis Chronic Problems Seizure disorder (Chronic) Stroke (Chronic) Coronary artery disease (Chronic) Depression (Chronic) Bipolar disorder (Chronic) Multiple personality disorder (Chronic) Restless legs syndrome (Chronic) Rheumatoid arthritis (Chronic) Generalized anxiety disorder (Chronic) Acute exacerbation of CHF (congestive heart failure) (Chronic) ELENITA (obstructive sleep apnea) (Chronic) Acute on chronic renal failure (Chronic) ELENITA on CPAP (Chronic) COPD (chronic obstructive pulmonary disease) (Chronic) Peripheral neuropathy (Chronic) Esophageal reflux (Chronic) Depressive disorder (Chronic) 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 A 5 mm stone in the right proximal ureter, with proximal hydronephrosis. 2. Old healed granulomatous disease. Electronically Signed: Shawna Montana MD at 23:51 EDT Tel , Service support , Dr. Butts. Urology. Operations: None Procedures: - - Cystoscopy with right ureteral stent placement, right extracorporeal shockwave lithotripsy. Summary of Care Provided: Patient seen and examined on the day of discharge after she underwent right extracorporeal shockwave lithotripsy. She denied any more right flank pain. Denied fever chills. She has been urinating with pink urine. Her vital signs are stable. The patient is a 73 year old F presented to the emergency room because of right flank pain and she was found to have 5 mm stone in the right proximal ureter with proximal hydronephrosis. CT scan abdomen and pelvis without contrast done on admission revealed 5 x 5 x 3 mm stone in the right proximal ureter with proximal hydronephrosis. Patient does have a history of stage III chronic kidney disease with baseline creatinine of around 1.2- 1.5 mg/dL. On admission, her creatinine was 1.88 g/dL. Patient was treated with IV fluids, IV pain medications and IV antiemetics. Urology consulted and patient underwent cystoscopy with placement of a right lateral stent, right retrograde pyelogram. After the procedure and with treatment mentioned above, patient symptoms improved and she had no more right flank pain. She did have some pink urine. Her vital signs remained stable and she was afebrile. On the day of discharge, she underwent right extracorporeal shockwave lithotripsy for the right ureteral stone. After the procedure patient did very well and she had no more pain. Patient discharged home in a stable condition, discharged on her previous home medications without any changes, plan to follow-up with urology according to Dr. Butts recommendations, recommended from with PCP in 1 week. - Physical Exam Vitals/I&O's: Vital Signs Temp Pulse Resp BP Pulse Ox 97.5 F L 73 18 144/65 H 96 09/25/19 14:51 09/25/19 14:51 09/25/19 14:51 09/25/19 14:51 09/25/19 14:51 Oxygen Flow Rate (L/min) 6 Oxygen Delivery Method Room Air Weight: 174 lb 9.698 oz Body Mass Index (BMI) 34.1 Finger Stick Blood Glucose 88 Intake and Output for Last 24 Hours 09/23/19 09/24/19 09/25/19 23:59 23:59 23:59 Intake Total 1000 / 1000 1925 / 1925 1570 / 1570 Output Total 400 / 400 950 / 950 Balance 1000 / 1000 1525 / 1525 620 / 620 General: Alert, Oriented x3, Cooperative, No apparent distress HEENT: Atraumatic, PERRLA, EOMI, Normocephalic Oral: Moist Mucosa, No Gingival or Mucosal Lesions/ Ulcerations Neck: Supple, No JVD, Negative Carotid Bruits, Trachea Midline, Thyroid Normal Size and Texture Lungs: Clear to auscultation, Normal air movement, No rhonchi, No wheeze, No rales Cardiovascular: Regular rate, Regular Rhythm, Normal S1, Normal S2, PMI Normal Abdomen: Bowel Sounds Present, Soft, Non Tender, Non-Distended, No Hepato-splenomegaly, Obese Extremities: No clubbing, No cyanosis, No edema Skin: No rashes, No breakdown Lymphatic: No Cervical, Supraclavicular, or Inguinal Adenopathy Neurological: Cranial nerves II-XII grossly intact, Neuro grossly intact Psych/Mental Status: Normal Affect, Appropriate Laboratory Results 09/24/19 16:44: Potassium 5.1 09/24/19 16:54: POC Glucose 232 H 09/24/19 22:51: POC Glucose 255 H 09/25/19 05:48: Sodium 140, Potassium 4.6, Chloride 110 H, Carbon Dioxide 22.0, Anion Gap 8, BUN 36 H, Creatinine 1.79 H, Estim Creat Clear Calc 20.11, Est GFR (MDRD) Af Amer 36 L, Est GFR (MDRD) Non-Af 29 L, BUN/Creatinine Ratio 20.1 H, Glucose 155 H, Calcium 7.7 L 09/25/19 05:48: WBC 9.4, RBC 2.84 L, Hgb 8.5 L, Hct 26.7 L, MCV 94.0, MCH 29.9, MCHC 31.8 L, RDW Std Deviation 46.8 H, RDW Coeff of Kusum 13.6, Plt Count 137 L, MPV 10.3, Immature Gran % (Auto) 0.300, Neut % (Auto) 70.2 H, Lymph % (Auto) 21.6, Elliott % (Auto) 6.0, Eos % (Auto) 1.5, Baso % (Auto) 0.4, Absolute Neuts (auto) 6.6, Absolute Lymphs (auto) 2.02, Nucleated RBC % 0 09/25/19 11:15: POC Glucose 60 L 09/25/19 13:32: POC Glucose 88 Current Medications Amlodipine Besylate (Norvasc) 10 mg PO DAILY [facility] Last Admin: 09/25/19 09:06 Dose: 10 mg Documented by: Atorvastatin Calcium (Lipitor) 10 mg PO QHS [facility] Last Admin: 09/24/19 22:37 Dose: 10 mg Documented by: Famotidine (Pepcid) 20 mg PO DAILY [facility] Last Admin: 09/25/19 09:06 Dose: 20 mg Documented by: Fluticasone Propionate (Flonase Nasal Daggett) 2 spray NASAL DAILY [facility] Last Admin: 09/25/19 09:07 Dose: Not Given Documented by: Gabapentin (Neurontin) 200 mg PO BID [facility] Last Admin: 09/25/19 09:06 Dose: 200 mg Documented by: Glucagon () 1 mg IM .X1 PRN PRN Reason: Hypoglycemia Hydralazine HCl (Apresoline Iv) 5 mg IV Q6H PRN PRN PRN Reason: for SBP>160 Sodium Chloride () 1,000 mls @ 100 mls/hr IV .Q10H [facility] Last Admin: 09/25/19 09:04 Dose: 100 mls/hr Documented by: Dextrose (Dextrose 10%-Water) 250 mls @ 999 mls/hr IV .Q16M PRN; Protocol PRN Reason: HYPOGLYCEMIA Sodium Chloride () 250 mls @ 15 mls/hr IV .[id number] PRN PRN Reason: Saline Flush Dextrose/Sodium Chloride (Dextrose 5%/0.9% Nacl) 1,000 mls @ 75 mls/hr IV .[id number] [facility] Stop: 09/25/19 18:24 Last Admin: 09/25/19 14:53 Dose: Not Given Documented by: Insulin Glargine (Lantus ([facility])) 29 units SC QHS [facility] Last Admin: 09/24/19 22:42 Dose: 29 u Documented by: Insulin Human Lispro (Humalog Kwikpen ([facility])) 10 unit SC TIDAC [facility] Last Admin: 09/25/19 11:24 Dose: Not Given Documented by: Isosorbide Mononitrate (Imdur) 30 mg PO DAILY [facility] Last Admin: 09/25/19 09:07 Dose: 30 mg Documented by: Ketorolac Tromethamine (Toradol ([facility])) 15 mg IV Q6H PRN PRN PRN Reason: Pain Score 1-10/10 Stop: 09/29/19 04:23 Last Admin: 09/24/19 22:38 Dose: 15 mg Documented by: Lactobacillus Acidophilus (Acidophilus) 1 tablet PO DAILY [facility] Last Admin: 09/25/19 09:00 Dose: Not Given Documented by: Latanoprost (Xalatan Opthalmic) 1 drop EACH EYE QHS [facility] Last Admin: 09/24/19 22:38 Dose: 1 drop Documented by: Loratadine (Claritin) 5 mg PO DAILY [facility] Last Admin: 09/25/19 09:00 Dose: Not Given Documented by: Metoprolol Tartrate (Lopressor (Beta Nataliia)) 25 mg PO BID [facility] Last Admin: 09/25/19 09:06 Dose: 25 mg Documented by: Morphine Sulfate () 1 mg IV Q3H PRN PRN PRN Reason: Pain Score 6-10/10 Last Admin: 09/24/19 02:23 Dose: 1 mg Documented by: Ondansetron HCl (Zofran) 4 mg IV Q6H PRN PRN PRN Reason: NAUSEA/VOMITING Last Admin: 09/24/19 04:47 Dose: 4 mg Documented by: Sodium Chloride () 10 - 40 ml IV UD PRN PRN Reason: SALINE FLUSH Last Admin: 09/24/19 04:47 Dose: 10 ml Documented by: Trazodone HCl (Desyrel) 50 mg PO QHS [facility] Last Admin: 09/24/19 22:36 Dose: 50 mg Documented by: Discharge Diet: Light diet - advance as tolerated Discharge Activity: Return to Normal Activity Weight Bearing Status: Weight bearing as tolerated Call your doctor if your incision/area has: Sudden Increased Bleeding Call your doctor if you observe: Fever of 101 or Higher, Shortness of breath, Dizziness, Fainting spells, Chest pain, Increased palpitations (irregular heartbeat), Uncontrolled pain Home Medications: Medications to take at Discharge Isosorbide Mononitrate [Isosorbide Mononitrate ER] 30 mg PO DAILY 04/10/15 Latanoprost 0.005% [Xalatan Opthalmic] 1 drop EACH EYE QHS 05/03/18 Insulin Lispro [Humalog KwikPen] 10 unit SUBCUT TIDCM 06/10/19 Famotidine 40 mg PO BID 06/29/19 Insulin Glargine [Lantus SoloStar Pen] 29 units SUBCUT QHS 06/29/19 traZODone [Desyrel] 50 mg PO QHS 06/29/19 Atorvastatin Calcium [Lipitor] 10 mg PO QHS 09/06/19 Ergocalciferol [Vitamin D] 50,000 unit PO QMONTH 09/06/19 Fexofenadine HCl 60 mg PO DAILY 09/06/19 Gabapentin 200 mg PO BID 09/06/19 Lactobacillus Acidophilus [Acidophilus] 1 tab PO DAILY 09/06/19 Amlodipine [Norvasc] 10 mg PO DAILY #30 tab 09/08/19 Metoprolol Tartrate [Lopressor (beta nataliia)] 25 mg PO BID #60 tab 09/08/19 Fluticasone 0.05% [Flonase Nasal Daggett] 2 spray NASAL DAILY 09/24/19 Furosemide [Lasix] 40 mg PO DAILY 09/24/19 Lisinopril [Prinivil] 15 mg PO DAILY 09/24/19 Potassium Chloride [Klor-Con M20] 20 meq PO TID 09/24/19 Zaroxolyn 10 mg PO DAILY 09/24/19 Primary Care Physician: Bailey Toribio MD [Primary Care Provider] - Please follow up with your Primary Care Physician in: 1 week. Please Follow Up With: Timmy Butts MD - [phone] When: please call to make an appointment. Patient Instructions: Shock Wave Lithotripsy Disposition: Home Minutes spent on discharge:: 32 Patient Condition:: Stable Medical Necessity - Tobacco Use Smoking Status: Current every day smoker Meaningful Use Info Meaningful Use Diagnoses (Choose all that apply): None applicable Inpatient E&M: 32898 Disch Hosp
[2019-09-25] MEDS: Insulin Lispro 100 UNIT/ML INSULN.PEN 10 UNIT SC (16:53)
[2019-09-25 17:00] LABS: Bedside Glucose 149 mg/dL (70-110)
[2019-09-26 00:16] LABS: Bedside Glucose 131 mg/dL (70-110)
--- NOTE | 2019-09-26 14:29 | CASEMGMT ---
RN CM Discharge Follow-up Phone Call: EMELIA: Jak Strata: 3 Call Date: 09/26/19 Discharge Date: 09/25/19 Time of Call: 1430 Duration: 1 min Admitting Diagnosis: Kidney stone RN CM attempted to complete follow-up phone call after recent hospitalization. No answer and unable to leave message. RN KAMILA will attempt again at later time.
--- NOTE | 2019-10-05 15:20 | CM.UR ---
ER[place] CM Discharge Follow-up Phone Call: EMELIA: 13 Strata: 3 Call Date: 10/05/19 Discharge Date: 09/25/19 Time of Call: 15:21 Duration: 1 min Admitting Diagnosis: Kidney stone RN KAMILA attempted to complete follow-up phone call after recent hospitalization. No answer. LVM asking for a return call Mon-Monday. Left general extension for CM dept. Nino Perkins RN, CCM.
== END 2019-09-25 18:15 | disposition home or self-care (01) | DRG 661 ==
LOC: ED 23:52 → MS3 09-24 00:53
PROVIDERS: Anesthesiology; Urology; Admitting Provider Family Medicine; Emergency Provider Emergency Medicine; PCP Internal Medicine; Visit Provider Hospitalist
PROC: 0T768DZ Dilation of Right Ureter with Intraluminal Device, Via Natural or Artificial Opening Endoscopic (ICD-10-PCS; CPT 52332; principal; 2019-09-24 15:40)
PROC: 0TF3XZZ Fragmentation in Right Kidney Pelvis, External Approach (ICD-10-PCS; CPT 50590; principal; 2019-09-25 12:30)
DX: N13.2 Hydronephrosis with renal and ureteral calculous obstruction (principal); N17.9 Acute kidney failure, unspecified; E86.0 Dehydration; E11.22 Type 2 diabetes mellitus with diabetic chronic kidney disease; I12.9 Hypertensive chronic kidney disease with stage 1 through stage 4 chronic kidney disease, or unspecified chronic kidney disease; N18.3 Chronic kidney disease, stage 3 (moderate); E11.42 Type 2 diabetes mellitus with diabetic polyneuropathy; E11.65 Type 2 diabetes mellitus with hyperglycemia; G40.909 Epilepsy, unspecified, not intractable, without status epilepticus; I50.9 Heart failure, unspecified; J44.9 Chronic obstructive pulmonary disease, unspecified; M06.9 Rheumatoid arthritis, unspecified; I25.10 Atherosclerotic heart disease of native coronary artery without angina pectoris; E78.5 Hyperlipidemia, unspecified; G25.81 Restless legs syndrome; G47.33 Obstructive sleep apnea (adult) (pediatric); K21.9 Gastro-esophageal reflux disease without esophagitis; F44.81 Dissociative identity disorder; F31.9 Bipolar disorder, unspecified; F41.1 Generalized anxiety disorder; E66.9 Obesity, unspecified; Z68.34 Body mass index [BMI] 34.0-34.9, adult; F17.200 Nicotine dependence, unspecified, uncomplicated; Z79.4 Long term (current) use of insulin; Z79.899 Other long term (current) drug therapy; Z86.73 Personal history of transient ischemic attack (TIA), and cerebral infarction without residual deficits; Z86.14 Personal history of Methicillin resistant Staphylococcus aureus infection
CPT/HCPCS: 36415; 74176; 76000; 80048; 80053; 81001; 82962; 83036; 84132; 85025; 93005; 99284; 99406; J7030; A4216; C1769; C2617; J2405

== ENCOUNTER 2019-12-23 09:40 | Emergency (ER) | payer MEDICARE, MEDICAID, SELFPAY ==
[2019-09-25 11:28] VITALS: BMI 34.1
[2019-12-23 09:42] VITALS: BP 188/106; PULSE 77; RESP 17; TEMP 36.4; O2SAT 98; BMI 32.8
--- NOTE | 2019-12-23 09:59 | CT_ITS ---
STUDY: CT LUMBAR SPINE WITHOUT CONTRAST REASON FOR EXAM: Female, 73 years old. INCREASED RT HIP PAIN/FALL ONE WEEK AGO RADIATION DOSAGE (If Supplied By Facility): CTDIvol = ( 20.17 ) mGy, DLP = ( 727.34 ) mGycm TECHNIQUE: The patient was scanned in a multi detector CT scanner. High resolution transaxial imaging was performed. Images were obtained from to . Sagittal and coronal images were reconstructed. Individualized dose optimization techniques were used for this CT. COMPARISON: None FINDINGS: Normal lumbar lordosis. There is no demonstrated fracture. There is multilevel endplate spondylosis of the lumbar vertebrae. There is multi-level degenerative disc disease with multi-level disc space narrowing. There is facet arthropathy with grade 1 anterolisthesis at L5/S1 CT/Spine Lumbar without Contrast IMPRESSION: No demonstrated fractures. Multilevel degenerative changes. Electronically Signed: Rissa Kim MD at 11:12 EDT Tel , Service support ,
--- NOTE | 2019-12-23 10:02 | ED.VIS.BACK ---
History of Present Illness Chief Complaint: Lower Extremity Injury Informant: Patient, Significant Other Onset: Days Context: Gradual Onset Injury: Fall Timing: Continuous Quality: Sharp Location: Lumbar, Right Leg Current Severity: Severe Worsened by: improves with: Movement Relieved by: Nothing Narrative: Patient is a 73-year-old female presenting with lower back pain and leg pain. Patient states she fell on the stairs about a week ago. Patient not exactly sure how she landed but denies any loss of consciousness or hitting her head. A couple days later she developed pain in her right lower back rating down her right leg. The pain is been worsening. She is tried taking Tylenol most recently at 3:30 in the morning today with no relief of her pain. She could not take the pain anymore so she came to the emergency room. Patient denies any numbness or weakness of her leg. She feels like the pain shoots down her leg. She denies any incontinence, saddle anesthesia or fevers. Patient states she is never had pain like this before. She denies any other complaints at this time. Past Medical History - Allergies and Home Meds Allergies/Adverse Reactions: Allergies ciprofloxacin [From Cipro] Allergy (Verified 12/23/19 09:41) Rash codeine Allergy (Verified 12/23/19 09:41) Shortness of breath Penicillins Allergy (Verified 12/23/19 09:41) Hives CILLINS Allergy (Uncoded 12/23/19 09:41) Unknown Primary Care Physician: Bailey Toribio MD [Primary Care Provider] - Past Medical History: - - Seizure disorder, stroke, coronary artery disease, bipolar disorder, restless leg syndrome, rheumatoid arthritis, anxiety, obstructive sleep apnea, COPD, neuropathy, type 2 diabetes mellitus, hyperlipidemia Surgical History: appendectomy, cataract, cholecystectomy, hysterectomy, tonsillectomy, - - Glaucoma, abdominal surgery for cyst. Lives: Spouse/ Significant Other Smoking Status: Current every day smoker - Family History Maternal Family History: Reports: Cancer, Diabetes, Heart Disease, Hypertension Paternal Family History: Reports: Cancer, Heart Disease Review of Systems General: Denies: Chills, Fever, Sweats Eyes: Denies: Visual changes - bilaterally, Diplopia ENT: Denies: Rhinorrhea, Sore throat Cardiovascular: Denies: Chest pain, Palpitations Respiratory: Denies: Dyspnea, Cough, Dyspnea on exertion Gastrointestinal: Denies: Abdominal pain, Nausea, Vomiting, Diarrhea, Melena, Hematochezia Genitourinary: Denies: Dysuria, Hematuria, Frequency Musculoskeletal: Reports: Back pain - right lower back, Extremity Pain - right Skin: Denies: Rash, Wounds Neurological: Denies: Headache, Weakness, Numbness Physical Exam Vital Signs/Narrative: Vital Signs Temp Pulse Resp BP Pulse Ox 12/23/19 09:42 97.5 F L 77 17 188/106 H 98 Inital Vital Signs reviewed: Yes General: Well nourished, Well developed, - - Patient lying on her right side during exam, does not want to lay on back Head: Normocephalic, Atraumatic Eyes: Perrl, EOMI ENT: Moist mucous membranes, No rhinorrhea Neck: Supple, Nontender Cardiovascular: Regular rate, Regular rhythm, No murmurs Respiratory: No distress, CTA bilaterally, Chest nontender Abdomen: Soft, Nontender, Nondistended, Normal bowel sounds. Negative for: Guarding, Rebound tenderness Back: Spinal tenderness - lower lumbar, Paraspinal Tenderness - right lumbar. Negative for: CVA tenderness Extremeties: No edema, Tenderness - diffuse, RLE, Strong Pulses, Symmetric, - - compartments are soft Skin: Normal color, No rash Neuro: Alert, Oriented, Normal Strength, Normal Sensation, Normal DTR, Normal Gait Psychological: Normal affect Diagnostic/Tx/Re-eval X-Ray: Right Hip, Read by ED Physician, Read by Radiologist, No Fracture Clinical Impression(s) from Imaging Studies Lumbar Spine CT 12/23/19 09:59 IMPRESSION: No demonstrated fractures. Multilevel degenerative changes. Electronically Signed: Rissa Kim MD at 11:12 EDT Tel , Service support , Hip/Pelvis X-Ray 12/23/19 10:22 IMPRESSION: Right hip arthrosis. Mild arthrosis of the sacroiliac joints. No demonstrated fracture. Electronically Signed: Wero Gutierrez MD at 11:42 EDT Tel , Service support , - Medical Decision Making Patient is evaluated for 3 days of right lower back pain. She does have some midline tenderness to palpation as well as pain rating down her leg. Her exam is difficult secondary to the amount of pain she is having and she keeps trying to lay on her right side and does not want to lay on her back. She does appear to be neuro vastly intact with equal pulses in her lower extremities. CT of the lumbar spine is obtained as she does have midline tenderness. This does not show any acute fracture. Patient is given 4 of IV morphine and has significant improvement of her symptoms. She is now able to ambulate easily in the emergency room. She states she is feeling much better. Patient does have associated paraspinal muscle tenderness and will be started on a muscle relaxer. I suspect she has sciatica as the root cause of her pain. She is not given steroids that she is a diabetic and she is not given her prescription of anti-inflammatories as she reports a history of kidney disease. Patient is counseled on the importance of following up with her primary care doctor as she might require further imaging such as an MRI or physical therapy if her symptoms persist. She is counseled on the risk and benefits of muscle relaxants and the increased risk of fall in people over the age of 65. She states she is comfortable with these risk and understands them. is also agreeable. Patient is counseled on signs and symptoms requiring return to emergency room. She verbalized agreement understand this plan. She is discharged home in stable condition. ED Disposition - Plan for ED Patient: Disposition: Home or Assisted Living Diagnosis: Right-sided low back pain with sciatica Instructions: Understanding Sciatica, ED Back Pain Acute or Chronic Prescriptions: cycloBENZAPRine HCl [Flexeril] 10 mg PO TID PRN PRN #15 tab PRN Reason: Muscle Spasm Transmission Status: Received by [email or web address][id number] Referrals: Bailey Toribio MD [Primary Care Provider] - Additional Instructions: Please follow-up with your primary care doctor later this week for reevaluation of your pain. Your x-ray and CT did not show any acute fracture however you do have some arthritic changes. I suspect you have sciatica. If your symptoms persist you might require further treatment such as physical therapy or further evaluation with an MRI. Your primary care doctor to determine.
[2019-12-23] MEDS: Morphine 4 MG/ML Syringe IV (10:09)
--- NOTE | 2019-12-23 10:22 | RAD_ITS ---
STUDY: X-RAY - PELVIS AND RIGHT HIP REASON FOR EXAM: Increased right hip pain, fall 1 week ago. TECHNIQUE: 2 views of the pelvis and hip. COMPARISON: Radiographs 02/04/2016. FINDINGS: There is vascular calcification and surgical clips in the pelvis. There is mild arthrosis of the sacroiliac joints bilaterally as on the prior study. Normal bilateral superior and inferior pubic rami. There is periarticular calcification of the pubic symphysis as on the prior study. Normal bilateral ischial tuberosities. Normal visualized femoral head. There is chondrocalcinosis in the right labrum. There is joint space narrowing of the superior medial right hip joint as on the prior study. RAD/HIP, UNI W/ Pelvis 2-3 Views IMPRESSION: Right hip arthrosis. Mild arthrosis of the sacroiliac joints. No demonstrated fracture. Electronically Signed: Wero Gutierrez MD at 11:42 EDT Tel , Service support ,
[2019-12-23 11:53] VITALS: RESP 18
[2019-12-23] MEDS: Lidocaine 5% Patch 1 PATCH TOPICAL (12:39)
[2019-12-23 12:48] VITALS: BP 197/83; PULSE 73; RESP 16; O2SAT 98
== END 2019-12-23 12:51 | disposition home or self-care (01) ==
PROVIDERS: Emergency Provider Emergency Medicine; PCP Internal Medicine
DX: M54.41 Lumbago with sciatica, right side (principal)
CPT/HCPCS: 72131; 73502; 96374; 99283; A4216

== ENCOUNTER 2019-12-24 20:34 | Observation (INO) | payer MEDICARE, MEDICAID, SELFPAY ==
[2019-12-23 09:42] VITALS: BMI 32.8
[2019-12-24 20:36] VITALS: BP 188/97; PULSE 87; RESP 14; TEMP 36.5; O2SAT 98; BMI 34.7
--- NOTE | 2019-12-24 21:03 | ED.DCSUM_ITS ---
History of Present Illness Chief Complaint: Back Informant: Patient Onset: Days Context: Gradual Onset Timing: Continuous Current Severity: Moderate Maximum Severity: Severe Narrative: The patient presents with left-sided low back pain that radiates down her left leg. The patient did have a fall 2 days ago. She was actually seen here yesterday for the same complaint. At that point, she had x-rays of the hip and pelvis. She also had CT of the lumbar spine. There is no evidence of fracture dislocation. She was treated with morphine in the emergency department and discharged with Flexeril and Tylenol. She states despite taking the Tylenol, her pain is now controlled. She denies any new symptoms. She denies any difficulty urinating or moving her bowels. She is otherwise been in her normal state of health. Prior similar symptoms: Yes Recent Illness/Hospitalization: No Past Medical History - Allergies and Home Meds Allergies/Adverse Reactions: Allergies ciprofloxacin [From Cipro] Allergy (Verified 12/24/19 20:36) Rash codeine Allergy (Verified 12/24/19 20:36) Shortness of breath Penicillins Allergy (Verified 12/24/19 20:36) Hives CILLINS Allergy (Uncoded 12/24/19 20:36) Unknown Primary Care Physician: Bailey Toribio MD [Primary Care Provider] - Prior records reviewed: Yes Past Medical History: - - Hypertension, hyperlipidemia Surgical History: appendectomy, cataract, cholecystectomy, hysterectomy, tonsillectomy, - - Glaucoma, abdominal surgery for cyst. Smoking Status: Current every day smoker - Family History Maternal Family History: Reports: Cancer, Diabetes, Heart Disease, Hypertension Paternal Family History: Reports: Cancer, Heart Disease Review of Systems General: Denies: Chills, Fever, Sweats Eyes: Denies: Visual changes - bilaterally, Diplopia ENT: Denies: Rhinorrhea, Sore throat Cardiovascular: Denies: Chest pain, Palpitations Respiratory: Denies: Dyspnea, Cough, Dyspnea on exertion Gastrointestinal: Denies: Abdominal pain, Nausea, Vomiting, Diarrhea, Melena, Hematochezia Genitourinary: Denies: Dysuria, Hematuria, Frequency Musculoskeletal: Reports: Back pain. Denies: Extremity Pain Skin: Denies: Rash, Wounds Neurological: Denies: Headache, Weakness, Numbness Physical Exam Vital Signs/Narrative: Vital Signs Temp Pulse Resp BP Pulse Ox 12/24/19 20:36 97.7 F L 87 14 188/97 H 98 Inital Vital Signs reviewed: Yes General: Well nourished, Well developed, No Acute Distress Head: Normocephalic, Atraumatic Eyes: Perrl, EOMI ENT: Moist mucous membranes, No rhinorrhea Neck: Supple, Nontender Cardiovascular: Regular rate, Regular rhythm, No murmurs Respiratory: No distress, CTA bilaterally, Chest nontender Abdomen: Soft, Nontender, Nondistended, Normal bowel sounds Back: Nontender, Normal Inspection Extremities: Nontender, No edema Skin: Normal color, No rash Neurological: Alert, Oriented x3, Cranial nerves II-XII grossly intact, Normal Strength, Normal Sensation Psychological: Normal affect, Normal Mood Diagnostic/Tx/Re-eval Abnormal Lab Results 12/24/19 12/24/19 12/24/19 21:15 21:15 22:15 WBC 8.5 RBC 2.99 L Hgb 9.1 L Hct 28.5 L MCV 95.3 MCH 30.4 MCHC 31.9 L RDW Std Deviation 49.0 H RDW Coeff of Kusum 14.1 Plt Count 188 MPV 10.6 Immature Gran % (Auto) 0.400 Neut % (Auto) 67.3 Lymph % (Auto) 22.0 [place] % (Auto) 7.8 Eos % (Auto) 1.9 Baso % (Auto) 0.6 Absolute Neuts (auto) 5.7 Absolute Lymphs (auto) 1.87 Nucleated RBC % 0 Sodium 141 Potassium 3.9 Chloride 109 H Carbon Dioxide 26.0 Anion Gap 6 BUN 31 H Creatinine 1.42 H Estim Creat Clear Calc 24.97 Est GFR (MDRD) Af Amer 47 L Est GFR (MDRD) Non-Af 38 L BUN/Creatinine Ratio 21.8 H Glucose 87 Calcium 8.6 Urine Color Yellow Urine Clarity Cloudy Urine pH 6.0 Ur Specific [place] 1.010 Urine Protein 500 H Urine Glucose (UA) Normal Urine Ketones Negative Urine Occult Blood 50 H Urine Nitrite Negative Urine Bilirubin Negative Urine Urobilinogen Normal Ur Leukocyte Esterase 500 H Urine RBC 5-10 SEEN Urine WBC >100 SEEN Ur Squamous Epith Cells 0-5 SEEN Urine Bacteria RARE Urine Mucus 0 SEEN - Medical Decision Making The patient presents with radicular pain from her right low back down her right leg. She has no red flag symptoms. She was given analgesics with some improvement, but was still having a difficult time ambulating. Her urine does show evidence of infection. Given her significant pain along with infectious symptoms, I do feel that she would benefit from admission. The patient was discussed with the hospitalist. Impression 1. Acute cystitis 2. Lumbar radiculopathy ED Disposition - Plan for ED Patient: Referrals: Bailey Toribio MD [Primary Care Provider] -
[2019-12-24] MEDS: Ondansetron 4 MG/2 ML Vial IV (21:04)
[2019-12-24] MEDS: Morphine 4 MG/ML Syringe IV (21:04)
[2019-12-24 21:34] LABS: Absolute Lymphocyte Count 1.87 X10^3/uL (0.83-4.51); Absolute Neutrophil Count 5.7 X10^3/uL (2.0-7.7); Basophil# 0.05 X10^3/uL; Basophil% 0.6 % (0-1); Eosinophil# 0.16 X10^3/uL; Eosinophils% 1.9 % (0-5); Hematocrit 28.5 % (37-47); Hemoglobin 9.1 g/dL (12.0-15.0); Lymphocyte # 1.87 X10^3/ul (4.0); Mean Corp Hgb Conc 31.9 g/dL (32-36); Mean Corpuscular Hgb 30.4 pg (27.0-32.0); Mean Corpuscular Volume 95.3 fL (81-99); Mean Platelet Vol. 10.6 fl (6.2-12.0); Monocyte# 0.66 X10^3/uL; Monocyte% 7.8 % (0-10); NRBC Flagged by Analyzer 0 % (0-5); Neutrophil # 5.73 X10^3/uL (2.7-7.7); Neutrophil % 67.3 % (47-70); Platelet Count 188 K/mm3 (150-450); RBC Distribution Width CV 14.1 % (11.6-14.6); Red Blood Count 2.99 M/mm3 (4.2-5.4); White Blood Count 8.5 K/mm3 (4.4-11.0)
[2019-12-24 21:54] LABS: Anion Gap 6 (5-15); BUN 31 mg/dL (7-18); BUN/Creat Ratio 21.8 RATIO (10-20); Calcium,Total 8.6 mg/dL (8.5-10.1); Chloride 109 mmol/L (98-107); Creatinine, Serum 1.42 mg/dL (0.55-1.02); EST Glomerular Filtration Rate 38 mL/min (>60); Est Glom Filt Rate - Afr Amer 47 mL/min (>60); Estimated Creatinine Clearance 24.97 ml/min; Glucose 87 mg/dL (74-106); Potassium 3.9 mmol/L (3.5-5.1); Sodium Level 141 mmol/L (136-145)
[2019-12-24 22:25] LABS: Mucous, Urine 0 SEEN /hpf (<or=2+)
[2019-12-24 22:29] LABS: Color, Urine Yellow (Yellow); Glucose, Dipstick Normal (Normal); Ketone-Dipstick Negative (Negative); Leukocyte Esterase-Dipstick 500 /ul (Negative); Nitrite-Dipstick Negative (Negative); Occult Blood-Urine 50 /ul (Negative); Protein-Dipstick 500 mg/dl (Negative); Urine Bilirubin Dipstick Negative (Negative); Urine Clarity Cloudy (Clear); Urine Urobilinogen Normal (Normal)
[2019-12-24 22:40] LABS: Bacteria RARE /hpf (None Seen); Red Blood Cells-Urine 5-10 SEEN /hpf (0-5); Squamous Epithelial Cells - UA 0-5 SEEN /hpf (5-10); White Blood Cells >100 SEEN /hpf (0-5)
--- NOTE | 2019-12-24 23:33 | PCM.HP.STD ---
Problem List (1) Intractable low back pain Status: Acute (2) Sciatica Status: Acute (3) UTI (urinary tract infection) Status: Acute (4) Seizure disorder Status: Chronic (5) Stroke Status: Chronic (6) Coronary artery disease Status: Chronic (7) Depression Status: Chronic (8) Bipolar disorder Status: Chronic (9) Multiple personality disorder Status: Chronic (10) Restless legs syndrome Status: Chronic (11) Rheumatoid arthritis Status: Chronic (12) Generalized anxiety disorder Status: Chronic (13) ELENITA on CPAP Status: Chronic (14) COPD (chronic obstructive pulmonary disease) Status: Chronic (15) Peripheral neuropathy Status: Chronic (16) Esophageal reflux Status: Chronic Qualifiers: (17) Depressive disorder Status: Chronic (18) 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 Comment: nonhealing MRSA diabetic ulcer abdominal wall (19) Personal history of Methicillin resistant Staphylococcus aureus infection Status: Chronic (20) Obesity Status: Chronic Qualifiers: Obesity type: due to excess calories (21) Hypertension Status: Chronic (22) Diabetes type 2, uncontrolled Status: Chronic (23) Hyperlipidemia Status: Chronic (24) Cerebrovascular disease Status: Chronic Comment: Status post acute ischemic stroke No residual deficit History of Present Illness Date of Admission: 12/24/19 Chief Complaint: BACK PAIN The patient is a 74 year old F with a significant history of COPD; depression; multiple personality disorder who presented to the emergency department with right-sided back pain that started about 4 days prior to presentation. Her pain is excruciating. Her pain radiates to her right lower leg and into her groin. She denies any aggravating or ameliorating factors to the pain. She describes her pain as sharp. About 4 days before her pain is started as she lost her balance and she fell. Patient has been at emergency department 2 days in a row. On his first presentation on the same issue, hip/pelvis x-ray and lumbar spine CT did not show any acute change. Patient was prescribed Flexeril at that time and she was sent home. On this visit patient reports that her back pain is affecting her activities of daily living. She was at emergency department with her roommate who was helping to answer questions. 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) Obesity (Chronic) Hypertension (Chronic) Diabetes type 2, uncontrolled (Chronic) Hyperlipidemia (Chronic) Cerebrovascular disease (Chronic) Status post acute ischemic stroke No residual deficit Allergies ciprofloxacin [From Cipro] Allergy (Verified 12/24/19 20:36) Rash codeine Allergy (Verified 12/24/19 20:36) Shortness of breath Penicillins Allergy (Verified 12/24/19 20:36) Hives CILLINS Allergy (Uncoded 12/24/19 20:36) Unknown Home Medications: Ambulatory Orders Medication Instructions Recorded Isosorbide Mononitrate [Isosorbide 30 mg PO DAILY 04/10/15 Mononitrate ER] Latanoprost 0.005% [Xalatan 1 drop EACH EYE QHS 05/03/18 Opthalmic] Insulin Lispro [Humalog KwikPen] 10 unit SUBCUT TIDCM 06/10/19 Famotidine 40 mg PO BID 06/29/19 Insulin Glargine [Lantus SoloStar 29 units SUBCUT QHS 06/29/19 Pen] traZODone [Desyrel] 50 mg PO QHS 06/29/19 Atorvastatin Calcium [Lipitor] 10 mg PO QHS 09/06/19 Ergocalciferol [Vitamin D] 50,000 unit PO QMONTH 09/06/19 Fexofenadine HCl 60 mg PO DAILY 09/06/19 Gabapentin 200 mg PO BID 09/06/19 Lactobacillus Acidophilus 1 tab PO DAILY 09/06/19 [Acidophilus] Amlodipine [Norvasc] 10 mg PO DAILY #30 tab 09/08/19 Metoprolol Tartrate [Lopressor 25 mg PO BID #60 tab 09/08/19 (beta carson)] Fluticasone 0.05% [Flonase Nasal 2 spray NASAL DAILY 09/24/19 [place]] Furosemide [Lasix] 40 mg PO DAILY 09/24/19 Lisinopril [Prinivil] 15 mg PO DAILY 09/24/19 Potassium Chloride [Klor-Con M20] 20 meq PO TID 09/24/19 Zaroxolyn 10 mg PO DAILY 09/24/19 cycloBENZAPRine HCl [Flexeril] 10 mg PO TID PRN PRN #15 tab 12/23/19 Surgical History: appendectomy, cataract, cholecystectomy, hysterectomy, tonsillectomy, - - Glaucoma, abdominal surgery for cyst. Psychiatric History: Anxiety, Bipolar, Depression, - - Multiple personality disorder. INCLUSION INTERN History: No pertinent INCLUSION INTERN history Lives: Care Home Smoking Status: Current every day smoker - *Family History Maternal History Items: Cancer, Diabetes, Heart Disease, Hypertension Paternal History Items: Cancer, Heart Disease Review of Systems Constitutional: Denies: Chills, Fever, Weight Change HEENT: Denies: Head Aches, Sinus Congestion, Sinus Drainage Cardiovascular: Denies: Chest Pain, Palpitations Respiratory: Denies: Cough, Shortness of breath at rest, Sputum production Gastrointestinal: Reports: Constipation. Denies: Abdominal Pain, Nausea, Vomiting Genitourinary: Denies: Dysuria Musculoskeletal: Reports: Back Pain, Leg Pain. Denies: Joint Pain, Joint Tenderness Skin: Denies: Rash, Wounds Neurological: Denies: Numbness, Tingling Psychiatric: Denies: Anxiety, Depression, Homicidal Ideations, Suicidal Ideations Hematologic/ Lymphatic: Denies: Easy Bruising, Easy Bleeding VTE Information - Inpt Only VTE Present on Admission: No VTE Mechan Device Prophylaxis: None VTE Pharm Prophylaxis ordered?: Yes Patient Problems: Active and Suspected Problems Intractable low back pain (Acute) Sciatica (Acute) UTI (urinary tract infection) (Acute) - Physical Exam Vitals/I&O's: Vital Signs Temp Pulse Resp BP Pulse Ox 97.7 F L 87 14 188/97 H 98 12/24/19 20:36 12/24/19 20:36 12/24/19 20:36 12/24/19 20:36 12/24/19 20:36 Oxygen Delivery Method Room Air Weight: 80.8 kg Body Mass Index (BMI) 34.7 Finger Stick Blood Glucose 88 General: Alert, Oriented x3, Cooperative HEENT: Atraumatic, PERRLA, EOMI, Normocephalic Neck: Supple, No JVD, Negative Carotid Bruits Lungs: Clear to auscultation, Normal air movement Cardiovascular: Normal S1, Normal S2, No murmurs Abdomen: Bowel Sounds Present, Soft, Non Tender Extremities: No edema, Capillary Refill Less than 3 Seconds, Tenderness - Right lower back. Skin: No rashes, No breakdown Musculoskeletal: Tenderness - Right lower back., - - Decreased range of motion of right leg. Neurological: Cranial nerves II-XII grossly intact Psych/Mental Status: Normal Affect, Appropriate Laboratory Results 12/24/19 21:15: WBC 8.5, RBC 2.99 L, Hgb 9.1 L, Hct 28.5 L, MCV 95.3, MCH 30.4, MCHC 31.9 L, RDW Std Deviation 49.0 H, RDW Coeff of Kusum 14.1, Plt Count 188, MPV 10.6, Immature Gran % (Auto) 0.400, Neut % (Auto) 67.3, Lymph % (Auto) 22.0, [place] % (Auto) 7.8, Eos % (Auto) 1.9, Baso % (Auto) 0.6, Absolute Neuts (auto) 5.7, Absolute Lymphs (auto) 1.87, Nucleated RBC % 0 12/24/19 21:15: Sodium 141, Potassium 3.9, Chloride 109 H, Carbon Dioxide 26.0, Anion Gap 6, BUN 31 H, Creatinine 1.42 H, Estim Creat Clear Calc 24.97, Est GFR (MDRD) Af Amer 47 L, Est GFR (MDRD) Non-Af 38 L, BUN/Creatinine Ratio 21.8 H, Glucose 87, Calcium 8.6 12/24/19 22:15: Urine Color Yellow, Urine Clarity Cloudy, Urine pH 6.0, Ur Specific [place] 1.010, Urine Protein 500 H, Urine Glucose (UA) Normal, Urine Ketones Negative, Urine Occult Blood 50 H, Urine Nitrite Negative, Urine Bilirubin Negative, Urine Urobilinogen Normal, Ur Leukocyte Esterase 500 H, Urine RBC 5-10 SEEN, Urine WBC >100 SEEN, Ur Squamous Epith Cells 0-5 SEEN, Urine Bacteria RARE, Urine Mucus 0 SEEN Assessment/Plan All Active Problems Intractable low back pain (Acute) Sciatica (Acute) UTI (urinary tract infection) (Acute) The patient is a 74 year old F with a significant history of COPD; depression; multiple personality disorder who presented to the emergency department with intractable back pain with sciatica; and acute cystitis. Intractable back pain with sciatica Received morphine sulfate 4 mg IV at the emergency department and then 2 mg IV. Oxycodone PRN for pain ordered. Bowel protocol in place. Antiemetics ordered. Acute cystitis Review of emergency department labs showed abnormal urinalysis. Received ceftriaxone at emergency department. Ceftriaxone ordered inpatient. Urine culture was ordered emergency department; follow. CKD stage III Stable Tobacco abuse Counseled Declined nicotine patch. Constipation. MiraLAX x1 ordered. PRN Senokot ordered. OBSV E&M: [id number] Initial observation care L3
[2019-12-24] MEDS: Ceftriaxone 1 GM/50 ML BAG IV (23:59)
[2019-12-24] MEDS: Morphine 2 MG/ML Syringe IV (23:59)
[2019-12-25] VITALS (9 sets, daily range): BP systolic 138–192; BP diastolic 61–105; PULSE 70–88; RESP 16–18; TEMP 36.5–36.8; O2SAT 92–98; BMI 34.6; BMI 34.7
--- NOTE | 2019-12-25 00:03 | ED.RN ---
holden alexander friend of pt phone number [phone]
[2019-12-25] MEDS: oxyCODONE 5 MG Tablet 10 MG PO ×3 (01:20→10:34)
[2019-12-25] MEDS: Polyethylene Glycol 3350 17 GM PACKET PO ×2 (01:20→10:34)
[2019-12-25] MEDS: Acetaminophen 500 MG Tablet PO ×4 (02:55→23:47)
[2019-12-25] MEDS: cycloBENZAPRine HCl 10 MG Tablet PO ×3 (02:56→21:42)
[2019-12-25 05:40] LABS: Absolute Lymphocyte Count 1.67 X10^3/uL (0.83-4.51); Absolute Neutrophil Count 3.4 X10^3/uL (2.0-7.7); Basophil# 0.04 X10^3/uL; Basophil% 0.7 % (0-1); Eosinophil# 0.16 X10^3/uL; Eosinophils% 2.8 % (0-5); Hematocrit 27.3 % (37-47); Hemoglobin 8.6 g/dL (12.0-15.0); Lymphocyte # 1.67 X10^3/ul (4.0); Lymphocyte % 28.9 % (19-41); Mean Corp Hgb Conc 31.5 g/dL (32-36); Mean Corpuscular Hgb 30.7 pg (27.0-32.0); Mean Corpuscular Volume 97.5 fL (81-99); Mean Platelet Vol. 10.5 fl (6.2-12.0); Monocyte# 0.53 X10^3/uL; Monocyte% 9.2 % (0-10); NRBC Flagged by Analyzer 0 % (0-5); Neutrophil # 3.37 X10^3/uL (2.7-7.7); Neutrophil % 58.2 % (47-70); Platelet Count 153 K/mm3 (150-450); RBC Distribution Width CV 14.3 % (11.6-14.6); RBC Distribution Width SD 50.7 fl (35.1-43.9); White Blood Count 5.8 K/mm3 (4.4-11.0)
[2019-12-25 05:58] LABS: Anion Gap 7 (5-15); BUN 29 mg/dL (7-18); Calcium,Total 8.4 mg/dL (8.5-10.1); Chloride 108 mmol/L (98-107); Creatinine, Serum 1.38 mg/dL (0.55-1.02); EST Glomerular Filtration Rate 40 mL/min (>60); Est Glom Filt Rate - Afr Amer 48 mL/min (>60); Estimated Creatinine Clearance 25.69 ml/min; Glucose 60 mg/dL (74-106); Potassium 3.9 mmol/L (3.5-5.1); Sodium Level 141 mmol/L (136-145)
[2019-12-25] MEDS: 0.9% Saline Lock 10 ML Syringe IV (06:42)
[2019-12-25 06:51] LABS: Bedside Glucose 79 mg/dL (70-110)
[2019-12-25 06:51] LABS: Bedside Glucose 55 mg/dL (70-110)
[2019-12-25 06:51] LABS: Bedside Glucose 63 mg/dL (70-110)
[2019-12-25] MEDS: Dext 5%-0.45% NS 1,000 ML 75 ML IV ×2 (06:53→19:59)
--- NOTE | 2019-12-25 08:04 | NURSING ---
Call to Dr. Toribio's office to get a med list faxed.
[2019-12-25 08:06] LABS: Bedside Glucose 108 mg/dL (70-110)
--- NOTE | 2019-12-25 10:20 | PCM.PN.HOSP ---
Patient Problems: Active and Suspected Problems Intractable low back pain (Acute) Sciatica (Acute) UTI (urinary tract infection) (Acute) Subjective: Still with significant tenderness on her right side. She says it goes into her groin. Its after a fall 4 days ago and its paraspinal Vitals/I&O's: Vital Signs Temp Pulse Resp BP Pulse Ox 97.7 F L 81 18 138/62 H 92 12/25/19 06:06 12/25/19 06:06 12/25/19 06:06 12/25/19 06:06 12/25/19 06:06 Oxygen Delivery Method Room Air Weight: 177 lb 7.554 oz Body Mass Index (BMI) 34.6 Finger Stick Blood Glucose 88 Intake and Output for Last 24 Hours 12/23/19 12/24/19 12/25/19 23:59 23:59 23:59 Intake Total 530 / 530 Output Total 600 / 600 Balance -70 / -70 General: Alert, Oriented x3, Cooperative, No apparent distress HEENT: Atraumatic, PERRLA, EOMI, Normocephalic Oral: Moist Mucosa Neck: Supple, No JVD Lungs: Clear to auscultation, Normal air movement, No rhonchi, No wheeze, No rales Cardiovascular: Regular rate, Regular Rhythm, Normal S1, Normal S2, No murmurs Abdomen: Soft, Non Tender, Non-Distended, No Hepato-splenomegaly Extremities: No edema, Capillary Refill Less than 3 Seconds Skin: No rashes, No breakdown Musculoskeletal: - - Right low back paraspinal tenderness likely a muscle pull, no skin findings. Neurological: Neuro grossly intact, Sensory exam intact to light touch and pain Psych/Mental Status: Normal Affect, Appropriate Laboratory Results 12/24/19 21:15: WBC 8.5, RBC 2.99 L, Hgb 9.1 L, Hct 28.5 L, MCV 95.3, MCH 30.4, MCHC 31.9 L, RDW Std Deviation 49.0 H, RDW Coeff of Kusum 14.1, Plt Count 188, MPV 10.6, Immature Gran % (Auto) 0.400, Neut % (Auto) 67.3, Lymph % (Auto) 22.0, [place] % (Auto) 7.8, Eos % (Auto) 1.9, Baso % (Auto) 0.6, Absolute Neuts (auto) 5.7, Absolute Lymphs (auto) 1.87, Nucleated RBC % 0 12/24/19 21:15: Sodium 141, Potassium 3.9, Chloride 109 H, Carbon Dioxide 26.0, Anion Gap 6, BUN 31 H, Creatinine 1.42 H, Estim Creat Clear Calc 24.97, Est GFR (MDRD) Af Amer 47 L, Est GFR (MDRD) Non-Af 38 L, BUN/Creatinine Ratio 21.8 H, Glucose 87, Calcium 8.6 12/24/19 22:15: Urine Color Yellow, Urine Clarity Cloudy, Urine pH 6.0, Ur Specific [place] 1.010, Urine Protein 500 H, Urine Glucose (UA) Normal, Urine Ketones Negative, Urine Occult Blood 50 H, Urine Nitrite Negative, Urine Bilirubin Negative, Urine Urobilinogen Normal, Ur Leukocyte Esterase 500 H, Urine RBC 5-10 SEEN, Urine WBC >100 SEEN, Ur Squamous Epith Cells 0-5 SEEN, Urine Bacteria RARE, Urine Mucus 0 SEEN 12/25/19 05:26: WBC 5.8, RBC 2.80 L, Hgb 8.6 L, Hct 27.3 L, MCV 97.5, MCH 30.7, MCHC 31.5 L, RDW Std Deviation 50.7 H, RDW Coeff of Kusum 14.3, Plt Count 153, MPV 10.5, Immature Gran % (Auto) 0.200, Neut % (Auto) 58.2, Lymph % (Auto) 28.9, [place] % (Auto) 9.2, Eos % (Auto) 2.8, Baso % (Auto) 0.7, Absolute Neuts (auto) 3.4, Absolute Lymphs (auto) 1.67, Nucleated RBC % 0 12/25/19 05:26: Sodium 141, Potassium 3.9, Chloride 108 H, Carbon Dioxide 26.0, Anion Gap 7, BUN 29 H, Creatinine 1.38 H, Estim Creat Clear Calc 25.69, Est GFR (MDRD) Af Amer 48 L, Est GFR (MDRD) Non-Af 40 L, BUN/Creatinine Ratio 21.0 H, Glucose 60 L, Calcium 8.4 L 12/25/19 06:02: POC Glucose 55 L 12/25/19 06:24: POC Glucose 63 L 12/25/19 06:44: POC Glucose 79 12/25/19 07:53: POC Glucose 108 Current Medications Acetaminophen (Tylenol) 500 mg PO Q6 [facility] Last Admin: 12/25/19 02:55 Dose: 500 mg Documented by: Cyclobenzaprine HCl (Flexeril) 10 mg PO TID [facility] Last Admin: 12/25/19 02:56 Dose: 10 mg Documented by: Dextrose (D50w Syringe) 0 gm IV X1 PRN; Protocol PRN Reason: Hypoglycemia Enoxaparin Sodium (Lovenox) 30 mg SC DAILY [facility] Glucagon () 1 mg IM .X1 PRN PRN Reason: Hypoglycemia Ceftriaxone Sodium (Rocephin) 1 gm in 50 mls @ 100 mls/hr IV Q24 [facility] Sodium Chloride () 250 mls @ 15 mls/hr IV .[id number] PRN PRN Reason: Saline Flush Sodium Chloride () 250 mls @ 15 mls/hr IV .[id number] PRN PRN Reason: Additional IVPB Infusion Dextrose/Sodium Chloride () 1,000 mls @ 75 mls/hr IV .[id number] [facility] Last Admin: 12/25/19 06:53 Dose: 75 mls/hr Documented by: Nutritional Formula (Lactose Free) (Glucerna Shake) 120 ml PO 4X/DAY [facility] Ondansetron HCl (Zofran) 4 mg IV Q8H PRN PRN PRN Reason: NAUSEA/VOMITING Oxycodone HCl (Oxyir) 5 mg PO Q4H PRN PRN PRN Reason: Pain Score 4-5/10 Oxycodone HCl (Oxyir) 10 mg PO Q4H PRN PRN PRN Reason: Pain Score 6-10/10 Last Admin: 12/25/19 05:58 Dose: 10 mg Documented by: Polyethylene Glycol (Miralax) 17 gm PO DAILY [facility] Senna/Docusate Sodium (Senokot-S, [place]-Colace) 2 tablet PO DAILY PRN PRN PRN Reason: CONSTIPATION Sodium Chloride () 10 - 40 ml IV UD PRN PRN Reason: SALINE FLUSH Last Admin: 12/25/19 06:42 Dose: 10 ml Documented by: Medical Necessity - Tobacco Use Smoking Status: Current every day smoker Assessment/Plan All Active Problems Intractable low back pain (Acute) Sciatica (Acute) UTI (urinary tract infection) (Acute) 1. Intractable right low back pain with sciatica -This is traumatic after a fall, CT scan did not show any fractures. -Right hip x-ray was also unremarkable -We will limit pain medication and have her work with PT/OT 2. UTI -UA is somewhat convincing for a UTI -Urine cultures pending, continue with Rocephin 3. IDDM 2 with CKD 3 and peripheral neuropathy -Consider continue with her home insulin regimen and check her blood sugars AC at bedtime -Her creatinine is at baseline -Continue with gabapentin 4. HTN/HLD -Blood pressure stable -Continue with her home blood pressure medications as well as her Lipitor 5. There is mention of a seizure disorder, bipolar, depression, personality disorder, restless leg syndrome, rheumatoid arthritis, and anxiety, however she does not appear to be on any medications to address is as an outpatient. Unsure as to why that is. He had a monitor and if necessary we will place her on appropriate medications however all of these illnesses will complicate her care DVT: Lovenox OBSV E&M: [id number] Subsequent observation care L2
[2019-12-25 12:36] LABS: Bedside Glucose 159 mg/dL (70-110)
[2019-12-25] MEDS: Isosorbide Mononitrate 30 MG Tablet PO (13:29)
[2019-12-25] MEDS: Lisinopril 5 MG Tablet 15 MG PO (13:29)
[2019-12-25] MEDS: Metoprolol Tartrate 25 MG Tablet PO ×2 (13:29→21:43)
--- NOTE | 2019-12-25 14:15 | CASEMGMT ---
ERICA TREVIÑO NOTE: RN CM to room to meet with patient and discuss discharge planning. ERICA TREVIÑO introduced self and role at [facility]. Pt voices understanding and consents to assessment at this time. Pt resting in bed in no distress at this time. Pt is A/O at this time and answers all questions appropriately. Care providers, pharmacy, and demographics verified/updated at this time. PT/OT evals have been reviewed. Discussed options of HHC vs OP therapy. Pt states she feels she is safe to return home and prefers to do OP therapy @ [facility]. Pt able to drive but does not have a vehicle. Pt made aware [facility] has van transportation services to [facility] and she was provided with their contact information/phone number. Pt wishes to return home and states has no concerns with going home at time of discharge. CM to follow for any further discharge planning/needs. Pt voices no further concerns/needs at this time. Advised pt to ask for CM if any further questions/concerns/needs arise. Voices understanding. PLAN: Home w/OP therapy @ [facility]. Will need script. [place] form reviewed with pt and she denies having any questions. Pt signed form, copy made and placed on chart, and original given to pt. Pt made aware if any questions arise re: form to ask for ERICA TREVIÑO. Pt voices understanding. Ki IZQUIERDO RN, CM
[2019-12-25] MEDS: oxyCODONE 5 MG Tablet PO ×2 (16:22→21:42)
[2019-12-25] MEDS: Ceftriaxone 1 GM/50 ML BAG IV (17:05)
[2019-12-25] MEDS: Insulin Lispro 100 UNIT/ML INSULN.PEN 10 UNIT SC (17:06)
[2019-12-25] MEDS: Gabapentin 100 MG Capsule 200 MG PO (17:06)
[2019-12-25 17:15] LABS: Bedside Glucose 173 mg/dL (70-110)
[2019-12-25] MEDS: traZODone 50 MG Tablet 25 MG PO (21:42)
[2019-12-25] MEDS: Famotidine 20 MG Tablet 40 MG PO (21:42)
[2019-12-25] MEDS: Atorvastatin Calcium 10 MG Tablet PO (21:42)
[2019-12-25] MEDS: Senna/Docusate Sodium 1 Tablet 2 TABLET PO (21:42)
[2019-12-25] MEDS: Latanoprost 0.005% 1 Bottle 1 DRP EACH EYE (21:45)
[2019-12-25 21:55] LABS: Bedside Glucose 97 mg/dL (70-110)
[2019-12-26 02:16] VITALS: BP 163/71; PULSE 70; RESP 16; TEMP 36.6; O2SAT 94
[2019-12-26 06:18] LABS: Absolute Lymphocyte Count 1.78 X10^3/uL (0.83-4.51); Absolute Neutrophil Count 3.3 X10^3/uL (2.0-7.7); Basophil# 0.06 X10^3/uL; Eosinophil# 0.19 X10^3/uL; Eosinophils% 3.2 % (0-5); Hematocrit 26.2 % (37-47); Hemoglobin 8.3 g/dL (12.0-15.0); Lymphocyte # 1.78 X10^3/ul (4.0); Lymphocyte % 30.4 % (19-41); Mean Corp Hgb Conc 31.7 g/dL (32-36); Mean Corpuscular Volume 97.8 fL (81-99); Mean Platelet Vol. 10.7 fl (6.2-12.0); Monocyte# 0.54 X10^3/uL; Monocyte% 9.2 % (0-10); NRBC Flagged by Analyzer 0 % (0-5); Neutrophil # 3.28 X10^3/uL (2.7-7.7); Platelet Count 150 K/mm3 (150-450); RBC Distribution Width CV 14.3 % (11.6-14.6); RBC Distribution Width SD 50.6 fl (35.1-43.9); Red Blood Count 2.68 M/mm3 (4.2-5.4); White Blood Count 5.9 K/mm3 (4.4-11.0)
[2019-12-26] MEDS: Acetaminophen 500 MG Tablet PO (06:29)
[2019-12-26] MEDS: cycloBENZAPRine HCl 10 MG Tablet PO (06:29)
[2019-12-26 08:04] VITALS: BP 169/71; PULSE 69; RESP 16; TEMP 37; O2SAT 98
[2019-12-26] MEDS: Senna/Docusate Sodium 1 Tablet 2 TABLET PO (08:18)
[2019-12-26] MEDS: Insulin Lispro 100 UNIT/ML INSULN.PEN 10 UNIT SC (08:18)
[2019-12-26] MEDS: Gabapentin 100 MG Capsule 200 MG PO (08:18)
[2019-12-26] MEDS: Polyethylene Glycol 3350 17 GM PACKET PO (08:19)
[2019-12-26] MEDS: Isosorbide Mononitrate 30 MG Tablet PO (08:19)
[2019-12-26] MEDS: Lisinopril 5 MG Tablet 15 MG PO (08:19)
[2019-12-26] MEDS: Famotidine 20 MG Tablet 40 MG PO (08:20)
[2019-12-26] MEDS: Enoxaparin 30 MG/0.3 ML Syringe SC (08:20)
[2019-12-26 08:21] VITALS: PULSE 69
[2019-12-26] MEDS: Furosemide 40 MG Tablet PO (08:21)
[2019-12-26] MEDS: Metoprolol Tartrate 25 MG Tablet PO (08:21)
[2019-12-26 08:46] LABS: Bedside Glucose 214 mg/dL (70-110)
--- NOTE | 2019-12-26 08:49 | DCINST_ITS ---
- Discharge Diagnoses Current Active Problems: Current Active and Chronic Problems Intractable low back pain (Acute) Sciatica (Acute) UTI (urinary tract infection) (Acute) You will use the following diet at home:: Calorie/Carbohydrate Controlled (specify 1200, 1400, etc) Your food should be the consistency of: Regular Your liquids should be the consistency of: Regular/Thin Discharge Activity: Return to Normal Activity Call your doctor if you observe: Fever of 101 or Higher, Shortness of breath, Dizziness, Fainting spells, Swelling in the ankles, Chest pain, Increased palpitations (irregular heartbeat) Additional Instructions: Follow-up with your doctor to monitor your chronic anemia Allergies/Adverse Reactions: Allergies ciprofloxacin [From Cipro] Allergy (Verified 12/24/19 20:36) Rash codeine Allergy (Verified 12/24/19 20:36) Shortness of breath Penicillins Allergy (Verified 12/24/19 20:36) Hives CILLINS Allergy (Uncoded 12/24/19 20:36) Unknown Medications to take at Discharge Isosorbide Mononitrate [Isosorbide Mononitrate ER] 30 mg PO DAILY 04/10/15 Latanoprost 0.005% [Xalatan Opthalmic] 1 drop EACH EYE QHS 05/03/18 Insulin Lispro [Humalog KwikPen] 10 unit SUBCUT TIDCM 06/10/19 Famotidine 40 mg PO BID 06/29/19 Insulin Glargine [Lantus SoloStar Pen] 29 units SUBCUT QHS 06/29/19 traZODone [Desyrel] 25 mg PO QHS 06/29/19 Atorvastatin Calcium [Lipitor] 10 mg PO QHS 09/06/19 Ergocalciferol [Vitamin D] 50,000 unit PO QWEEK 09/06/19 Fexofenadine HCl 60 mg PO DAILY 09/06/19 Gabapentin 200 mg PO BID 09/06/19 Lactobacillus Acidophilus [Acidophilus] 1 tab PO QHS 09/06/19 Amlodipine [Norvasc] 10 mg PO DAILY #30 tab 09/08/19 Metoprolol Tartrate [Lopressor (beta carson)] 25 mg PO BID #60 tab 09/08/19 Fluticasone 0.05% [Flonase Nasal [place]] 2 spray NASAL DAILY 09/24/19 Furosemide [Lasix] 40 mg PO DAILY 09/24/19 Lisinopril [Prinivil] 15 mg PO DAILY 09/24/19 Potassium Chloride [Klor-Con M20] 20 meq PO TID 09/24/19 Zaroxolyn 10 mg PO DAILY 09/24/19 cycloBENZAPRine HCl [Flexeril] 10 mg PO TID PRN PRN #15 tab 12/23/19 Cephalexin [Keflex] 500 mg PO Q8 #9 cap 12/26/19 The following prescriptions were given: Cephalexin [Keflex] 500 mg PO Q8 #9 cap Transmission Status: Pending to [facility] Primary Care Physician: Bailey Toribio MD [Primary Care Provider] - Please follow up with your Primary Care Physician in: 3-5 days Test Results: Test results from this visit will be discussed in further detail at your follow- up appointment, if applicable.
--- NOTE | 2019-12-26 08:50 | PCM.DC.SUM ---
Discharge Date and Diagnosis - Problem List Patient Problems: Active and Suspected Problems Intractable low back pain (Acute) Sciatica (Acute) UTI (urinary tract infection) (Acute) Date of Admission: 12/24/19 Date of Discharge: 12/26/19 - Primary Discharge Diagnosis Acute Problems: Active Problems Intractable low back pain (Acute) Sciatica (Acute) UTI (urinary tract infection) (Acute) - Secondary Discharge Diagnosis Chronic Problems: Chronic Problems Seizure disorder (Chronic) Stroke (Chronic) Coronary artery disease (Chronic) Depression (Chronic) Bipolar disorder (Chronic) Multiple personality disorder (Chronic) Restless legs syndrome (Chronic) Rheumatoid arthritis (Chronic) Generalized anxiety disorder (Chronic) ELENITA on CPAP (Chronic) COPD (chronic obstructive pulmonary disease) (Chronic) Peripheral neuropathy (Chronic) Esophageal reflux (Chronic) Depressive disorder (Chronic) 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 Her pain is excruciating. Her pain radiates to her right lower leg and into her groin. She denies any aggravating or ameliorating factors to the pain. She describes her pain as sharp. About 4 days before her pain is started as she lost her balance and she fell. Patient has been at emergency department 2 days in a row. On his first presentation on the same issue, hip/pelvis x-ray and lumbar spine CT did not show any acute change. Patient was prescribed Flexeril at that time and she was sent home. On this visit patient reports that her back pain is affecting her activities of daily living. She was at emergency department with her roommate who was helping to answer questions. Hospital Course: 1. Intractable right lower back pain with sciatica/[id number]-eyqn-old female with history of COPD and depression presented with back pain after a fall. She had a CT scan in the ER a day prior to re-presenting to the ER which was negative for fracture and a hip x-ray also at the same time which was negative for fracture. She did have significant pain yesterday and therefore was kept another day to undergo therapy. Today she states that her pain is completely gone and she would like to go home. She will likely need to have PT as an outpatient as well for this muscle strain in her right paraspinal muscle. On exam there is still no pain today. There is a possibility of a UTI though culture has been slow in coming back therefore she did receive a dose of Rocephin and will be discharged on 3 days of Keflex. If the urine culture does come back positive with an organism that is resistant to Keflex, I will call in another antibiotic. I did discuss the plan of discharge with her and she expressed understanding of the risks and benefits of going home today. 2. Her other medical diagnoses were evaluated and her home medications were continued where appropriate Patient Problems: Active and Suspected Problems Intractable low back pain (Acute) Sciatica (Acute) UTI (urinary tract infection) (Acute) - Physical Exam Vitals/I&O's: Vital Signs Temp Pulse Resp BP Pulse Ox 98.6 F 69 16 169/71 H 98 12/26/19 08:04 12/26/19 08:21 12/26/19 08:04 12/26/19 08:04 12/26/19 08:04 Oxygen Delivery Method Room Air Weight: 177 lb 7.554 oz Body Mass Index (BMI) 34.6 Finger Stick Blood Glucose 88 Intake and Output for Last 24 Hours 12/24/19 12/25/19 12/26/19 23:59 23:59 23:59 Intake Total 8.75 / 2027.75 1028.75 / 1028.75 Output Total 1700 / 1700 500 / 500 Balance 328.75 / 328.75 528.75 / 528.75 General: Alert, Oriented x3, Cooperative, No apparent distress HEENT: Atraumatic, PERRLA, EOMI, Normocephalic Oral: Moist Mucosa Neck: Supple, No JVD Lungs: Clear to auscultation, Normal air movement, No rhonchi, No wheeze, No rales Cardiovascular: Regular rate, Regular Rhythm, Normal S1, Normal S2, No murmurs Abdomen: Soft, Non Tender, Non-Distended, No Hepato-splenomegaly Extremities: No edema, Capillary Refill Less than 3 Seconds Skin: No rashes, No breakdown Musculoskeletal: No tenderness to palpation in her right lower back Neurological: Neuro grossly intact, Sensory exam intact to light touch and pain Psych/Mental Status: Normal Affect, Appropriate Laboratory Results 12/25/19 12:30: POC Glucose 159 H 12/25/19 16:56: POC Glucose 173 H 12/25/19 21:47: POC Glucose 97 12/26/19 05:55: WBC 5.9, RBC 2.68 L, Hgb 8.3 L, Hct 26.2 L, MCV 97.8, MCH 31.0, MCHC 31.7 L, RDW Std Deviation 50.6 H, RDW Coeff of Kusum 14.3, Plt Count 150, MPV 10.7, Immature Gran % (Auto) 0.200, Neut % (Auto) 56.0, Lymph % (Auto) 30.4, [place] % (Auto) 9.2, Eos % (Auto) 3.2, Baso % (Auto) 1.0, Absolute Neuts (auto) 3.3, Absolute Lymphs (auto) 1.78, Nucleated RBC % 0 12/26/19 08:01: POC Glucose 214 H Current Medications Acetaminophen (Tylenol) 500 mg PO Q6 [facility] Last Admin: 12/26/19 06:29 Dose: 500 mg Documented by: Atorvastatin Calcium (Lipitor) 10 mg PO QHS [facility] Last Admin: 12/25/19 21:42 Dose: 10 mg Documented by: Cyclobenzaprine HCl (Flexeril) 10 mg PO TID [facility] Last Admin: 12/26/19 06:29 Dose: 10 mg Documented by: Dextrose (D50w Syringe) 0 gm IV X1 PRN; Protocol PRN Reason: Hypoglycemia Enoxaparin Sodium (Lovenox) 30 mg SC DAILY [facility] Last Admin: 12/26/19 08:20 Dose: 30 mg Documented by: Famotidine (Pepcid) 40 mg PO BID [facility] Last Admin: 12/26/19 08:20 Dose: 40 mg Documented by: Furosemide (Lasix) 40 mg PO DAILY [facility] Last Admin: 12/26/19 08:21 Dose: 40 mg Documented by: Gabapentin (Neurontin) 200 mg PO BIDCM [facility] Last Admin: 12/26/19 08:18 Dose: 200 mg Documented by: Glucagon () 1 mg IM .X1 PRN PRN Reason: Hypoglycemia Ceftriaxone Sodium (Rocephin) 1 gm in 50 mls @ 100 mls/hr IV Q24 [facility] Last Admin: 12/26/19 08:29 Dose: Not Given Documented by: Sodium Chloride () 250 mls @ 15 mls/hr IV .[id number] PRN PRN Reason: Saline Flush Sodium Chloride () 250 mls @ 15 mls/hr IV .[id number] PRN PRN Reason: Additional IVPB Infusion Dextrose/Sodium Chloride () 1,000 mls @ 75 mls/hr IV .[id number] [facility] Last Infusion: 12/26/19 08:22 Dose: Infused Documented by: Insulin Glargine (Lantus ([facility])) 29 units SC QHS [facility] Last Admin: 12/25/19 22:04 Dose: Not Given Documented by: Insulin Human Lispro (Humalog Kwikpen ([facility])) 10 unit SC TIDCM [facility] Last Admin: 12/26/19 08:18 Dose: 10 u Documented by: Isosorbide Mononitrate (Imdur) 30 mg PO DAILY [facility] Last Admin: 12/26/19 08:19 Dose: 30 mg Documented by: Latanoprost (Xalatan Opthalmic) 1 drop EACH EYE QHS [facility] Last Admin: 12/25/19 21:45 Dose: 1 drop Documented by: Lisinopril (Zestril) 15 mg PO DAILY [facility] Last Admin: 12/26/19 08:19 Dose: 15 mg Documented by: Metoprolol Tartrate (Lopressor (Beta Nataliia)) 25 mg PO BID [facility] Last Admin: 12/26/19 08:21 Dose: 25 mg Documented by: Nutritional Formula (Lactose Free) (Glucerna Shake) 120 ml PO 4X/DAY [facility] Last Admin: 12/26/19 08:21 Dose: Not Given Documented by: Ondansetron HCl (Zofran) 4 mg IV Q8H PRN PRN PRN Reason: NAUSEA/VOMITING Oxycodone HCl (Oxyir) 5 mg PO Q4H PRN PRN PRN Reason: Pain Score 4-5/10 Last Admin: 12/25/19 21:42 Dose: 5 mg Documented by: Oxycodone HCl (Oxyir) 10 mg PO Q4H PRN PRN PRN Reason: Pain Score 6-10/10 Last Admin: 12/25/19 10:34 Dose: 10 mg Documented by: Polyethylene Glycol (Miralax) 17 gm PO DAILY [facility] Last Admin: 12/26/19 08:19 Dose: 17 gm Documented by: Senna/Docusate Sodium (Senokot-S, Mary Ellen-Colace) 2 tablet PO DAILY PRN PRN PRN Reason: CONSTIPATION Last Admin: 12/26/19 08:18 Dose: 2 tablet Documented by: Sodium Chloride () 10 - 40 ml IV UD PRN PRN Reason: SALINE FLUSH Last Admin: 12/25/19 06:42 Dose: 10 ml Documented by: Trazodone HCl (Desyrel) 25 mg PO QHS [facility] Last Admin: 12/25/19 21:42 Dose: 25 mg Documented by: Discharge Activity: Return to Normal Activity Call your doctor if you observe: Fever of 101 or Higher, Shortness of breath, Dizziness, Fainting spells, Swelling in the ankles, Chest pain, Increased palpitations (irregular heartbeat) Home Medications: Medications to take at Discharge Isosorbide Mononitrate [Isosorbide Mononitrate ER] 30 mg PO DAILY 04/10/15 Latanoprost 0.005% [Xalatan Opthalmic] 1 drop EACH EYE QHS 05/03/18 Insulin Lispro [Humalog KwikPen] 10 unit SUBCUT TIDCM 06/10/19 Famotidine 40 mg PO BID 06/29/19 Insulin Glargine [Lantus SoloStar Pen] 29 units SUBCUT QHS 06/29/19 traZODone [Desyrel] 25 mg PO QHS 06/29/19 Atorvastatin Calcium [Lipitor] 10 mg PO QHS 09/06/19 Ergocalciferol [Vitamin D] 50,000 unit PO QWEEK 09/06/19 Fexofenadine HCl 60 mg PO DAILY 09/06/19 Gabapentin 200 mg PO BID 09/06/19 Lactobacillus Acidophilus [Acidophilus] 1 tab PO QHS 09/06/19 Amlodipine [Norvasc] 10 mg PO DAILY #30 tab 09/08/19 Metoprolol Tartrate [Lopressor (beta nataliia)] 25 mg PO BID #60 tab 09/08/19 Fluticasone 0.05% [Flonase Nasal Rice] 2 spray NASAL DAILY 09/24/19 Furosemide [Lasix] 40 mg PO DAILY 09/24/19 Lisinopril [Prinivil] 15 mg PO DAILY 09/24/19 Potassium Chloride [Klor-Con M20] 20 meq PO TID 09/24/19 Zaroxolyn 10 mg PO DAILY 09/24/19 cycloBENZAPRine HCl [Flexeril] 10 mg PO TID PRN PRN #15 tab 12/23/19 Cephalexin [Keflex] 500 mg PO Q8 #9 cap 12/26/19 Following Prescrptions Were Given to Patient: Cephalexin [Keflex] 500 mg PO Q8 #9 cap Transmission Status: Pending to [facility] Primary Care Physician: Bailey Toribio MD [Primary Care Provider] - Please follow up with your Primary Care Physician in: 3-5 days Disposition: Home Minutes spent on discharge:: 35 Patient Condition:: Stable Medical Necessity - Tobacco Use Smoking Status: Current every day smoker Meaningful Use Info Meaningful Use Diagnoses (Choose all that apply): None applicable OBSV E&M: 84083 Observation care discharge
--- NOTE | 2019-12-26 10:44 | PHA.DC.MC ---
Pharmacy Service has performed discharge medication reconciliation and counseling for this patient. Home Medications Isosorbide Mononitrate [Isosorbide Mononitrate ER] 30 mg PO DAILY 04/10/15 Latanoprost 0.005% [Xalatan Opthalmic] 1 drop EACH EYE QHS 05/03/18 Insulin Lispro [Humalog KwikPen] 10 unit SUBCUT TIDCM 06/10/19 Famotidine 40 mg PO BID 06/29/19 Insulin Glargine [Lantus SoloStar Pen] 29 units SUBCUT QHS 06/29/19 traZODone [Desyrel] 25 mg PO QHS 06/29/19 Atorvastatin Calcium [Lipitor] 10 mg PO QHS 09/06/19 Ergocalciferol [Vitamin D] 50,000 unit PO QWEEK 09/06/19 Fexofenadine HCl 60 mg PO DAILY 09/06/19 Gabapentin [Neurontin] 200 mg PO BID #0 09/06/19 Lactobacillus Acidophilus [Acidophilus] 1 tab PO QHS 09/06/19 Amlodipine [Norvasc] 10 mg PO DAILY #30 tab 09/08/19 Metoprolol Tartrate [Lopressor (beta carson)] 25 mg PO BID #60 tab 09/08/19 Fluticasone 0.05% [Flonase Nasal [place]] 2 spray NASAL DAILY 09/24/19 Furosemide [Lasix] 40 mg PO DAILY 09/24/19 Lisinopril [Prinivil] 15 mg PO DAILY 09/24/19 Potassium Chloride [Klor-Con M20] 20 meq PO TID 09/24/19 Zaroxolyn 10 mg PO DAILY 09/24/19 cycloBENZAPRine HCl [Flexeril] 10 mg PO TID PRN PRN #15 tab 12/23/19 Cephalexin [Keflex] 500 mg PO Q8 #9 cap 12/26/19 The patient was counseled on the following discharge medications and changes in medications for homegoing were reviewed. 1. Keflex 500mg PO Q8h x3 days The Reason for Use, instructions for use, and potential side effects were reviewed for all new medications. The patient's questions regarding all of their medications were answered. The patient was able to verbally demonstrate an understanding of their discharge medications. The patient's discharge medication list was reviewed for discrepancies and discrepancies were resolved.
--- NOTE | 2019-12-26 11:35 | CASEMGMT ---
ERICA TREVIÑO NOTE: Script obtained for OP PT/OT @ [facility] and faxed to [facility] at this time. Script given to pt at this time. Pt states she prefers to call [facility] to schedule appts. Call placed to [facility] and spoke to Gabrielle. She was made aware pt will call them to schedule appts and that she will need [facility] transportation for her appts. Ki IZQUIERDO RN CM
== END 2019-12-26 11:49 | disposition home or self-care (01) ==
LOC: ED 21:11 → MS3 12-25 00:04
PROVIDERS: Admitting Provider Hospitalist; Emergency Provider Emergency Medicine; PCP Internal Medicine; Visit Provider Family Medicine
DX: M54.41 Lumbago with sciatica, right side (principal); N39.0 Urinary tract infection, site not specified; E78.5 Hyperlipidemia, unspecified; I25.10 Atherosclerotic heart disease of native coronary artery without angina pectoris; I12.9 Hypertensive chronic kidney disease with stage 1 through stage 4 chronic kidney disease, or unspecified chronic kidney disease; E11.22 Type 2 diabetes mellitus with diabetic chronic kidney disease; N18.3 Chronic kidney disease, stage 3 (moderate); F17.210 Nicotine dependence, cigarettes, uncomplicated; M06.9 Rheumatoid arthritis, unspecified; G25.81 Restless legs syndrome; G47.33 Obstructive sleep apnea (adult) (pediatric); J44.9 Chronic obstructive pulmonary disease, unspecified; E11.42 Type 2 diabetes mellitus with diabetic polyneuropathy; K21.9 Gastro-esophageal reflux disease without esophagitis; Z86.14 Personal history of Methicillin resistant Staphylococcus aureus infection; E66.9 Obesity, unspecified; Z68.34 Body mass index [BMI] 34.0-34.9, adult; Z79.899 Other long term (current) drug therapy; Z79.4 Long term (current) use of insulin; Z79.51 Long term (current) use of inhaled steroids; K59.00 Constipation, unspecified; Z91.81 History of falling
CPT/HCPCS: 36415; 80048; 81001; 82962; 85025; 87077; 87086; 87088; 87186; 96361; 96365; 96366; 96372; 96375; 96376; 97110; 97162; 97166; 97530; 97802; 99218; 99284; 99406; J7040; A4216; G0378; J2405; J7799

== ENCOUNTER 2020-01-27 16:36 | Emergency (ER) | payer MEDICARE, MEDICAID, SELFPAY ==
[2019-12-25 00:58] VITALS: BMI 34.6
[2020-01-27 17:06] VITALS: BP 179/90; PULSE 70; RESP 16; TEMP 36.7; O2SAT 98; BMI 34.0
[2020-01-27 18:13] VITALS: BP 155/78; PULSE 74; RESP 16; O2SAT 98
--- NOTE | 2020-01-27 18:57 | EKG12_ITS ---
Test Reason : Blood Pressure : / mmHG Vent. Rate : 071 BPM Atrial Rate : 071 BPM P-R Int : 142 ms QRS Dur : 082 ms QT Int : 412 ms P-R-T Axes : 048 038 033 degrees QTc Int : 447 ms Normal sinus rhythm Normal ECG Confirmed by ANGELA BOWMAN, SANTHOSH ([id number]), offline editor JERRI SONI ([id number]) on 01/29/2020 12:40:33 PM Referred By: ED PHYS Confirmed By:SANTHOSH MILLER MD
[2020-01-27 19:23] VITALS: BP 100/86; PULSE 73; RESP 16; O2SAT 97; O2SAT 98
[2020-01-27] MEDS: Aspirin 81 MG TAB.CHEW 324 MG PO (19:24)
[2020-01-27 19:30] LABS: Absolute Lymphocyte Count 1.55 X10^3/uL (0.83-4.51); Absolute Neutrophil Count 3.5 X10^3/uL (2.0-7.7); Basophil# 0.04 X10^3/uL; Basophil% 0.7 % (0-1); Eosinophil# 0.21 X10^3/uL; Eosinophils% 3.5 % (0-5); Hematocrit 27.2 % (37-47); Hemoglobin 8.6 g/dL (12.0-15.0); Lymphocyte # 1.55 X10^3/ul (4.0); Lymphocyte % 26.1 % (19-41); Mean Corp Hgb Conc 31.6 g/dL (32-36); Mean Corpuscular Hgb 30.6 pg (27.0-32.0); Mean Corpuscular Volume 96.8 fL (81-99); Mean Platelet Vol. 10.8 fl (6.2-12.0); Monocyte% 10.1 % (0-10); NRBC Flagged by Analyzer 0 % (0-5); Neutrophil # 3.52 X10^3/uL (2.7-7.7); Neutrophil % 59.4 % (47-70); Platelet Count 134 K/mm3 (150-450); RBC Distribution Width CV 13.2 % (11.6-14.6); RBC Distribution Width SD 46.8 fl (35.1-43.9); Red Blood Count 2.81 M/mm3 (4.2-5.4); White Blood Count 5.9 K/mm3 (4.4-11.0)
--- NOTE | 2020-01-27 19:36 | RAD_ITS ---
STUDY: X-RAY CHEST REASON FOR EXAM: Female, 74 years old. Left sided chest pain, CHF. TECHNIQUE: Single AP portable view of the chest. COMPARISON: 09-07-19. FINDINGS: Moderate lung volumes. Mild interstitial prominence, worse on the left, suggestive of chronic findings. No focal infiltrates. Possible small left pleural effusion. Normal size heart. Normal mediastinum and elva. Normal visualized pulmonary arteries. There is atherosclerotic calcification of the aortic arch with tortuosity. Normal visualized thoracic spine. Normal visualized ribs, clavicles, and shoulders. There is no demonstrated abnormality of the visualized soft tissue structures of the upper abdomen. RAD/Chest 1 View (Portable) IMPRESSION: Possible mild interstitial prominence which is most likely chronic. Cannot include a small left pleural effusion. Electronically Signed: Tunde Rich MD at 19:59 EDT , Service support ,
[2020-01-27 19:47] LABS: Anion Gap 4 (5-15); BUN 36 mg/dL (7-18); BUN/Creat Ratio 18.1 RATIO (10-20); Calcium,Total 8.2 mg/dL (8.5-10.1); Chloride 111 mmol/L (98-107); Creatinine, Serum 1.99 mg/dL (0.55-1.02); EST Glomerular Filtration Rate 26 mL/min (>60); Est Glom Filt Rate - Afr Amer 32 mL/min (>60); Estimated Creatinine Clearance 17.82 ml/min; Glucose 131 mg/dL (74-106); Potassium 4.7 mmol/L (3.5-5.1); Sodium Level 142 mmol/L (136-145)
[2020-01-27 20:41] VITALS: BP 148/72; PULSE 70; RESP 14; O2SAT 96
[2020-01-27 21:02] VITALS: BP 162/59; PULSE 70; RESP 20; O2SAT 99
--- NOTE | 2020-01-27 22:02 | ED.DCSUM_ITS ---
- ER Visit Summary Date of Service: 01/27/20 Chief Complaint: Chest pain History of Present Illness: The patient is a 74 F who presents with chest pain that began today. also states that the patient was having some somnolence today. Patient was apparently talking to the pharmacist and kept falling asleep. states that the patient has been doing this more frequently. Patient admits to some sharp pain in her chest. Patient states the pain is over the left chest. Patient states nothing makes it better or worse. Patient does admit to some lightheadedness and palpitations. Patient denies any fevers or chills. Patient denies any shortness of breath or cough. Patient denies any nausea or vomiting. Physical Examination: Vital signs are stable. Patient is afebrile here. Patient is in no acute distress. Oral mucosa is pink and moist. Neck is supple. Trachea is midline. There is no JVD. Heart was regular rate and rhythm. Lungs are clear but diminished bilaterally. Abdomen is soft. Bowel sounds are normal. There is no tenderness. Patient is awake and alert but somewhat somnolent on examination. Cranial nerves II through XII are intact. There are no focal motor or sensory deficits noted. Test Results: EKG shows a normal sinus rhythm with a rate of 71. There are no acute ST or T wave changes. CBC shows anemia with hemoglobin of 8.6 and hematocrit 27.2. These were stable compared to previous results. Basic metabo lic profile showed a creatinine of 1.99 and a BUN of 36. These are also unchanged compared to previous results. Troponin was normal. Chest x-ray shows some mild interstitial prominence but no acute cardiopulmonary process. This was interpreted by the radiologist and reviewed by myself. Emergency Department Course and Treatment: Patient was feeling better on reevaluation she was more awake and alert. Patient was advised of her findings. Patient was instructed to follow-up with her primary care physician in 5 to 7 days. Patient and family understood and were agreeable with the plan. All questions were answered. Disposition: Discharge home Impression: Chest pain of uncertain etiology This note was generated with [employer] software. It may contain incorrect words, spelling, and punctuation that were not noted in review of the chart prior to signing ED Disposition - Plan for ED Patient: Disposition: Home or Assisted Living Diagnosis: Chest pain of uncertain etiology Instructions: ED Chest Pain Atypical Unkn Cause Referrals: Bailey Toribio MD [Primary Care Provider] - 5-7 Days
[2020-01-27 22:20] VITALS: BP 161/75; PULSE 70; RESP 16; O2SAT 98
== END 2020-01-27 22:21 | disposition home or self-care (01) ==
PROVIDERS: Emergency Provider Emergency Medicine; PCP Internal Medicine
DX: R07.9 Chest pain, unspecified (principal); R00.2 Palpitations; R42 Dizziness and giddiness; J44.9 Chronic obstructive pulmonary disease, unspecified; M54.2 Cervicalgia; E11.9 Type 2 diabetes mellitus without complications; I10 Essential (primary) hypertension; D64.9 Anemia, unspecified; K21.9 Gastro-esophageal reflux disease without esophagitis; F32.9 Major depressive disorder, single episode, unspecified; F41.9 Anxiety disorder, unspecified; Z79.4 Long term (current) use of insulin; Z79.899 Other long term (current) drug therapy; Z86.73 Personal history of transient ischemic attack (TIA), and cerebral infarction without residual deficits; Z87.891 Personal history of nicotine dependence
CPT/HCPCS: 71045; 80048; 84484; 85025; 93005; 99284; A4216

== ENCOUNTER 2020-02-22 13:39 | Inpatient (IN) | payer MEDICARE, MEDICAID, SELFPAY ==
[2020-02-22] VITALS (11 sets, daily range): BP systolic 99–155; BP diastolic 40–63; PULSE 66–81; RESP 16–28; TEMP 36.3–36.6; O2SAT 96–100; BMI 33.7; BMI 33.6
--- NOTE | 2020-02-22 13:45 | ED.RN ---
pt reports after dr lillie sparks spitting up blood since yesterday. and diarrhea
--- NOTE | 2020-02-22 13:49 | EKG12_ITS ---
Test Reason : RAPID RESPONSE Blood Pressure : / mmHG Vent. Rate : 069 BPM Atrial Rate : 069 BPM P-R Int : 134 ms QRS Dur : 086 ms QT Int : 428 ms P-R-T Axes : 035 035 026 degrees QTc Int : 458 ms Normal sinus rhythm Normal ECG Confirmed by ANGELA BOWMAN, SANTHOSH ([id number]), editor magazine RADHA TAPIA ([id number]) on 02/26/2020 1:07:29 PM Referred By: Confirmed By:SANTHOSH MILLER MD
--- NOTE | 2020-02-22 13:49 | RAD_ITS ---
STUDY: X-RAY CHEST REASON FOR EXAM: Female, 74 years old. Weakness TECHNIQUE: Frontal view of the chest COMPARISON: 01/27/20 FINDINGS: There is retrocardiac opacity in the left lung. The lungs are otherwise clear. There are no pleural effusions. There is no pneumothorax. The heart is normal in size. The visualized osseous structures are within normal limits. RAD/Chest 1 View (Portable) IMPRESSION: Retrocardiac opacity in the left lung which is consistent with an infiltrate. Electronically Signed: Scotty Marroquin, at 14:38 EDT Tel , Service support ,
--- NOTE | 2020-02-22 13:54 | ED.DCSUM_ITS ---
History of Present Illness Informant: Patient, Spouse/S.O. Onset: Today Activity at onset: Rest Timing: Continuous Quality: Sharp, Stabbing Location: Left Chest Current Severity: Severe Maximum Severity: Severe Worsened By: Nothing Relieved By: Nothing Associated Symptoms: Nausea. Negative for: Vomiting, Diaphoresis, Dyspnea, Cough, Fever, Lightheadedness, Acid Reflux, Palpitations Narrative: 74-year-old female presents to the emergency department by private vehicle complaining of left-sided chest pain. It started about 90 minutes ago. She is with her boyfriend. They were out eating at a restaurant she was eating uzbek goulash and about 30 minutes after that started to have left-sided chest pain it is burning and sharp it radiates into her throat she feels nauseated. No vomiting. She is not lightheaded or dizzy. No diaphoresis. No back pain. No numbness tingling or weakness of the upper or lower extremities. She is not short of breath. No exertional symptoms. No leg swelling. No recent travel or history of DVT or PE or recent surgery Prior Similar Symptoms: No Recent Illness/Hospitalization: No CVD Risk Factors: Hypertension, Diabetes, Hypercholesterolemia, Smoking. Negative for: Family History 1' </=55 PE Risk Factors: Negative for: Recent Travel/Surgery, Recenet Immobilization, Prior DVT or PE, Cancer, OCP + Smoking + >/=35 TAD Risk Factors: Negative for: Marfan's Syndrome <Heraclio Cabello - Last Filed: 02/22/20 16:34> <Spencer Navarro - Last Filed: 02/22/20 17:47> Chief Complaint: Chest Pain Past Medical History Prior records reviewed: Yes Past Medical History: - - Type 2 diabetes mellitus, hypertension, hyperlipidemia Surgical History: appendectomy, cataract, cholecystectomy, hysterectomy, tonsillectomy, - - Glaucoma, abdominal surgery for cyst. Smoking Status: Former smoker - Family History Maternal Family History: Reports: Cancer, Diabetes, Heart Disease, Hypertension Paternal Family History: Reports: Cancer, Heart Disease <Heraclio Cabello - Last Filed: 02/22/20 16:34> <Spencer Navarro - Last Filed: 02/22/20 17:47> - Allergies and Home Meds Allergies/Adverse Reactions: Allergies ciprofloxacin [From Cipro] Allergy (Verified 02/22/20 13:40) Rash codeine Allergy (Verified 02/22/20 13:40) Shortness of breath Penicillins Allergy (Verified 02/22/20 13:40) Hives CILLINS Allergy (Uncoded 02/22/20 13:40) Unknown Primary Care Physician: Bailey Toribio MD [Primary Care Provider] - Review of Systems All systems negative except as indicated General: Denies: Chills, Fever, Sweats Eyes: Denies: Visual changes - bilaterally, Diplopia ENT: Denies: Rhinorrhea, Sore throat Cardiovascular: Reports: Chest pain. Denies: Palpitations, Heart racing Respiratory: Denies: Dyspnea, Cough, Dyspnea on exertion Gastrointestinal: Reports: Nausea. Denies: Abdominal pain, Vomiting, Diarrhea, Melena, Hematochezia Genitourinary: Denies: Dysuria, Hematuria, Frequency Musculoskeletal: Denies: Back pain, Extremity Pain Skin: Denies: Rash, Wounds Neurological: Denies: Headache, Weakness, Numbness <Heraclio Cabello - Last Filed: 02/22/20 16:34> Physical Exam Vital Signs/Narrative: Vital Signs Temp Pulse Resp BP Pulse Ox 02/22/20 13:40 97.8 F 81 20 H 155/63 H 96 Inital Vital Signs reviewed: Yes General: Well nourished, Well developed, No Acute Distress Head: Normocephalic, Atraumatic Eyes: Perrl, EOMI ENT: Moist mucous membranes, No rhinorrhea Neck: Supple, Nontender Cardiovascular: Regular rate, Regular rhythm, No murmurs Respiratory: No distress, CTA bilaterally, Chest nontender Abdomen: Soft, Nontender, Nondistended, Normal bowel sounds Rectal: Guaiac negative Back: Nontender, Normal Inspection Extremities: Nontender, No edema Skin: Normal color, No rash Neurological: Alert, Oriented x3, Cranial nerves II-XII grossly intact, Normal Strength, Normal Sensation Psychological: Normal affect, Normal Mood <Heraclio Cabello - Last Filed: 02/22/20 16:34> Vital Signs/Narrative: Vital Signs Pulse Resp BP Pulse Ox 02/22/20 17:12 68 22 H 111/54 L 96 02/22/20 16:19 79 28 H 99/40 L 100 02/22/20 15:44 74 18 103/46 L 100 02/22/20 14:53 79 20 H 140/50 H 100 <Spencer Navarro - Last Filed: 02/22/20 17:47> Diagnostic/Tx/Re-eval Chest X-Ray - ED: 2 View, Read by ED Physician, Read by Radiologist, Right Infiltrate Impressions Chest X-Ray 02/22/20 13:49 IMPRESSION: Retrocardiac opacity in the left lung which is consistent with an infiltrate. Electronically Signed: Scotty Marroquin, at 14:38 EDT Tel , Service support , 02/22/20 13:49 Chest 1 View (Portable) [RAD] Stat 02/22/20 14:40 Stool Stool Occult Blood (ANTONIO) - Final Laboratory Results 02/22/20 02/22/20 14:00 14:00 WBC 11.4 H RBC 2.41 L Hgb 7.0 L Hct 21.9 L MCV 90.9 MCH 29.0 MCHC 32.0 RDW Std Deviation 43.2 RDW Coeff of Kusum 13.0 Plt Count 209 MPV 10.8 Immature Gran % (Auto) 0.400 Neut % (Auto) 83.5 H Lymph % (Auto) 7.2 L Tompkins % (Auto) 7.5 Eos % (Auto) 1.1 Baso % (Auto) 0.3 Absolute Neuts (auto) 9.5 H Absolute Lymphs (auto) 0.82 L Nucleated RBC % 0 Sodium 130 L Potassium 4.0 Chloride 98 Carbon Dioxide 25.0 Anion Gap 7 BUN 61 H Creatinine 3.61 H Estim Creat Clear Calc 9.82 Est GFR (MDRD) Af Amer 16 L Est GFR (MDRD) Non-Af 13 L BUN/Creatinine Ratio 16.9 Glucose 374 H Calcium 8.2 L Total Bilirubin 0.40 Direct Bilirubin 0.17 AST 201 H ALT 150 H Alkaline Phosphatase 52 Troponin I 0.040 Total Protein 6.2 L Albumin 1.8 L Globulin 4.4 H Lipase 226 - Rhythm Strip Rhythm Strip: Sinus Rhythm Rate: 79 Ectopy: None - EKG Initial EKG Interpretation: Sinus Rhythm, No Acute Injury Pattern Prior: Unchanged Treatment: Aspirin, Morphine Repeat Eval: Pain Free - Medical Decision Making On arrival EKG was sinus rhythm no signs of ischemia. Patient given morphine and Zofran. Laboratory work-up is remarkable for hemoglobin of 7 which is down from 8.6 a month ago. Creatinine is up to nearly 4 her baseline is less than 2. Her BUN is elevated as well. Troponin is 0.04. Chest x-ray shows a retrocardiac infiltrate. Patient's Hemoccult is negative. Further discussion with patient and significant other patient has been weak and fatigued and having diarrhea and at this time I feel this is likely from dehydration and diarrhea. She is not a GI bleed. She was given IV fluids. We will treat her pneumonia with Rocephin and Zithromax and admitted to the hospital for further treatment and evaluation. She is hemodynamically stable. <Heraclio Cabello - Last Filed: 02/22/20 16:34> - Medical Decision Making Patient was seen with me. I did a [id number] examination with the patient. Patient presents with chest pain and weakness. Patient states she feels generalized weakness. Patient describes her chest pain as dull. Patient denies any nausea or vomiting. Patient denies any fevers or chills. Vital signs are stable. Patient is afebrile. Patient is in no acute distress. Oral mucosa is pink and moist. Neck is supple. Trachea is midline. There is no JVD. Heart was regular rate and rhythm. Lungs are clear and equal bilaterally. Abdomen is soft. Bowel sounds are normal. There is no tenderness. Extremities are intact. There is no calf tenderness or edema. CBC shows an anemia with a hemoglobin of 7. Creatinine was elevated to 3.8. BUN was elevated. Troponin was normal. Chest x-ray shows a retrocardiac infiltrate. Stool was Hemoccult negative. Patient was started on Rocephin and Zithromax for pneumonia. Patient will be admitted to the hospital. Patient understood and was agreeable with the plan. All questions were answered. <Spencer Navarro - Last Filed: 02/22/20 17:47> ED Disposition <Heraclio Cabello - Last Filed: 02/22/20 16:34> <Spencer Navarro - Last Filed: 02/22/20 17:47> - Plan for ED Patient: Disposition: Acute Care Hospital [facility] Diagnosis: Dehydration, Acute renal failure, Anemia, Community acquired pneumonia, Diabetes type 2, uncontrolled, COPD (chronic obstructive pulmonary disease) Referrals: Bailey Toribio MD [Primary Care Provider] -
[2020-02-22] MEDS: Aspirin 81 MG TAB.CHEW 324 MG PO (14:18)
[2020-02-22] MEDS: 0.9% Normal Saline 1,000 ML 150 ML IV ×2 (14:18→19:45)
[2020-02-22 14:20] LABS: Absolute Lymphocyte Count 0.82 X10^3/uL (0.83-4.51); Absolute Neutrophil Count 9.5 X10^3/uL (2.0-7.7); Basophil# 0.03 X10^3/uL; Basophil% 0.3 % (0-1); Eosinophil# 0.12 X10^3/uL; Eosinophils% 1.1 % (0-5); Hematocrit 21.9 % (37-47); Lymphocyte # 0.82 X10^3/ul (4.0); Lymphocyte % 7.2 % (19-41); Mean Corpuscular Volume 90.9 fL (81-99); Mean Platelet Vol. 10.8 fl (6.2-12.0); Monocyte# 0.86 X10^3/uL; Monocyte% 7.5 % (0-10); NRBC Flagged by Analyzer 0 % (0-5); Neutrophil # 9.54 X10^3/uL (2.7-7.7); Neutrophil % 83.5 % (47-70); Platelet Count 209 K/mm3 (150-450); RBC Distribution Width SD 43.2 fl (35.1-43.9); Red Blood Count 2.41 M/mm3 (4.2-5.4); White Blood Count 11.4 K/mm3 (4.4-11.0)
[2020-02-22] MEDS: Morphine 4 MG/ML Syringe IV (14:20)
[2020-02-22] MEDS: Ondansetron 4 MG/2 ML Vial IV (14:20)
[2020-02-22 14:26] LABS: AST(SGOT) 201 U/L (15-37); Alanine Aminotransfer ALT/SGPT 150 U/L (13-56); Albumin, Serum 1.8 g/dL (3.2-5.0); Alkaline Phosphatase 52 U/L (45-117); Anion Gap 7 (5-15); BUN 61 mg/dL (7-18); BUN/Creat Ratio 16.9 RATIO (10-20); Bilirubin, Direct 0.17 mg/dL (0.00-0.30); Calcium,Total 8.2 mg/dL (8.5-10.1); Chloride 98 mmol/L (98-107); Creatinine, Serum 3.61 mg/dL (0.55-1.02); EST Glomerular Filtration Rate 13 mL/min (>60); Est Glom Filt Rate - Afr Amer 16 mL/min (>60); Estimated Creatinine Clearance 9.82 ml/min; Globulin 4.4 g/dL (2.2-4.2); Glucose 374 mg/dL (74-106); Lipase 226 U/L (73-393); Protein, Total 6.2 g/dL (6.4-8.2); Sodium Level 130 mmol/L (136-145)
[2020-02-22] MEDS: Famotidine 200 MG/20 ML MDV 20 MG in 0.9% Normal Saline (Pres. free 8 ML 300 MG IV (14:43)
--- NOTE | 2020-02-22 16:10 | HP.PCM_ITS ---
History of Present Illness Date of Admission: 02/22/20 Chief Complaint: chest pain The patient is a 74 year old F with an extensive past medical history as outlined. She was admitted through the ED on 02/22/2020 with a complaint of left-sided chest pain. Patient was out at a restaurant with her boyfriend and started having left-sided chest pain which was worsened by movement and relieved by rest. She denied any shortness of breath though she says she had been having generalized malaise for several days prior to this admission and had been feeling weak. She had also had a few episodes of diarrhea on the day before admission. She denied any nausea and denied any fever or chills and admitted to a chronic cough which is not new. She denied any frequency or burning with urination. In the ED, at time of review temperature was 97.8 Fahrenheit with pulse rate of 79 and respiratory rate of 28, with blood pressure initially being 99/48 but trended up to the 110 systolic. She was saturating at 100% on 3 L of oxygen and even on room air, she was saturating in the mid 90s but would go down intermittently to the mid 80s. Chemistry showed sodium of 130 with creatinine of 3.61 initial troponin was negative. CBC showed hemoglobin of 7, with WBC of 11.4 and platelets of 209. Chest x-ray showed retrocardiac opacity in the left lung which is consistent with an infiltrate and EKG showed normal sinus rhythm with no acute ST changes. She has been admitted to be managed for acute on chronic anemia, DEBBIE on CKD and anemia as well as chest pain. Cover test was ordered and is pending. [] 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) Obesity (Chronic) Hypertension (Chronic) Diabetes type 2, uncontrolled (Chronic) Hyperlipidemia (Chronic) Cerebrovascular disease (Chronic) Status post acute ischemic stroke No residual deficit Allergies ciprofloxacin [From Cipro] Allergy (Verified 02/22/20 13:40) Rash codeine Allergy (Verified 02/22/20 13:40) Shortness of breath Penicillins Allergy (Verified 02/22/20 13:40) Hives CILLINS Allergy (Uncoded 02/22/20 13:40) Unknown Home Medications: Ambulatory Orders Medication Instructions Recorded Isosorbide Mononitrate [Isosorbide 30 mg PO DAILY 04/10/15 Mononitrate ER] Latanoprost 0.005% [Xalatan 1 drop EACH EYE QHS 05/03/18 Opthalmic] Insulin Lispro [Humalog KwikPen] 10 unit SUBCUT TIDCM 06/10/19 Famotidine 40 mg PO BID 06/29/19 Insulin Glargine [Lantus SoloStar 29 units SUBCUT QHS 06/29/19 Pen] traZODone [Desyrel] 25 mg PO QHS 06/29/19 Atorvastatin Calcium [Lipitor] 10 mg PO QHS 09/06/19 Ergocalciferol [Vitamin D] 50,000 unit PO QWEEK 09/06/19 Fexofenadine HCl 60 mg PO DAILY 09/06/19 Gabapentin [Neurontin] 200 mg PO BID #0 09/06/19 Lactobacillus Acidophilus 1 tab PO QHS 09/06/19 [Acidophilus] Amlodipine [Norvasc] 10 mg PO DAILY #30 tab 09/08/19 Metoprolol Tartrate [Lopressor 25 mg PO BID #60 tab 09/08/19 (beta carson)] Fluticasone 0.05% [Flonase Nasal 2 spray NASAL DAILY 09/24/19 [place]] Furosemide [Lasix] 40 mg PO DAILY 09/24/19 Lisinopril [Prinivil] 15 mg PO DAILY 09/24/19 Potassium Chloride [Klor-Con M20] 20 meq PO TID 09/24/19 Zaroxolyn 10 mg PO DAILY 09/24/19 cycloBENZAPRine HCl [Flexeril] 10 mg PO TID PRN PRN #15 tab 12/23/19 Cephalexin [Keflex] 500 mg PO Q8 #9 cap 12/26/19 Surgical History: appendectomy, cataract, cholecystectomy, hysterectomy, tonsillectomy, - - Glaucoma, abdominal surgery for cyst. Psychiatric History: Anxiety, Bipolar, Depression, - - Multiple personality disorder. BRAKE RIDER History: No pertinent BRAKE RIDER history Smoking Status: Former smoker Alcohol: None Drugs: None - *Family History Maternal History Items: Cancer, Diabetes, Heart Disease, Hypertension Paternal History Items: Cancer, Heart Disease Review of Systems Constitutional: Reports: Malaise, Weakness, Fatigue. Denies: Anorexia, Chills, Fever, Weight Change Eyes: Denies: Blurred vision HEENT: Denies: Head Aches, Sinus Congestion, Sinus Drainage Cardiovascular: Denies: Chest Pain, Palpitations Respiratory: Reports: Shortness of Breath, Shortness of breath upon exertion. Denies: Cough, Shortness of breath at rest, Sputum production Gastrointestinal: Reports: Diarrhea. Denies: Abdominal Pain, Nausea, Vomiting Genitourinary: Denies: Dysuria Musculoskeletal: Denies: Joint Pain, Joint Tenderness Skin: Denies: Rash, Wounds Neurological: Denies: Numbness, Tingling, Focal weakness Psychiatric: Denies: Anxiety, Depression, Homicidal Ideations, Suicidal Ideations Hematologic/ Lymphatic: Denies: Easy Bruising, Easy Bleeding VTE Information - Inpt Only VTE Present on Admission: No VTE Mechan Device Prophylaxis: SCD's VTE Pharm Prophylaxis ordered?: No Reason prophylaxis not ordered:: Medical Contraindication - anemia Patient Problems: Active and Suspected Problems Dehydration (Acute) Acute renal failure (Acute) Anemia (Acute) Community acquired pneumonia (Acute) - Physical Exam Vitals/I&O's: Vital Signs Temp Pulse Resp BP Pulse Ox 97.8 F 74 18 103/46 L 100 02/22/20 13:40 02/22/20 15:44 02/22/20 15:44 02/22/20 15:44 02/22/20 15:44 Oxygen Flow Rate (L/min) 3 Oxygen Delivery Method Nasal Cannula Weight: 173 lb 1.006 oz Body Mass Index (BMI) 33.7 Finger Stick Blood Glucose 88 Intake and Output for Last 24 Hours 02/20/20 02/21/20 02/22/20 23:59 23:59 23:59 Intake Total Balance General: Alert, Oriented x3, Cooperative, No apparent distress, Lethargic HEENT: Atraumatic, PERRLA, EOMI, Normocephalic Oral: Dry Mucosa Neck: Supple, No JVD, Negative Carotid Bruits Lungs: - - decreased breath sounds in left mid and lower lung cherry, with few crackles. No wheezes. on room air. Cardiovascular: Regular rate, No murmurs Abdomen: Bowel Sounds Present, Soft, Non Tender, Non-Distended, No Hepato- splenomegaly Extremities: No clubbing, No cyanosis, No edema, Capillary Refill Less than 3 Seconds Skin: No rashes, No breakdown Musculoskeletal: No Tenderness to Palpation of Joints or Extremities Lymphatic: No Cervical, Supraclavicular, or Inguinal Adenopathy Neurological: Cranial nerves II-XII grossly intact, Neuro grossly intact, Motor Exam 5/5 strength throughout Psych/Mental Status: Normal Affect, Appropriate, Alert and oriented to time, place, person, mood and affect Laboratory Results 02/22/20 14:00: WBC 11.4 H, RBC 2.41 L, Hgb 7.0 L, Hct 21.9 L, MCV 90.9, MCH 29.0, MCHC 32.0, RDW Std Deviation 43.2, RDW Coeff of Kusum 13.0, Plt Count 209, MPV 10.8, Immature Gran % (Auto) 0.400, Neut % (Auto) 83.5 H, Lymph % (Auto) 7.2 L, [place] % (Auto) 7.5, Eos % (Auto) 1.1, Baso % (Auto) 0.3, Absolute Neuts (auto) 9.5 H, Absolute Lymphs (auto) 0.82 L, Nucleated RBC % 0 02/22/20 14:00: Sodium 130 L, Potassium 4.0, Chloride 98, Carbon Dioxide 25.0, Anion Gap 7, BUN 61 H, Creatinine 3.61 H, Estim Creat Clear Calc 9.82, Est GFR (MDRD) Af Amer 16 L, Est GFR (MDRD) Non-Af 13 L, BUN/Creatinine Ratio 16.9, Glucose 374 H, Calcium 8.2 L, Total Bilirubin 0.40, Direct Bilirubin 0.17, AST 201 H, ALT 150 H, Alkaline Phosphatase 52, Troponin I 0.040, Total Protein 6.2 L , Albumin 1.8 L, Globulin 4.4 H, Lipase 226 Diagnostic Data Chest X-Ray 02/22/20 13:49 IMPRESSION: Retrocardiac opacity in the left lung which is consistent with an infiltrate. Electronically Signed: Scotty Marroquin, at 14:38 EDT Tel , Service support , Current Medications Sodium Chloride () 1,000 mls @ 150 mls/hr IV .[id number] [facility] Last Admin: 02/22/20 14:18 Dose: 150 mls/hr Documented by: Assessment/Plan All Active Problems Intractable low back pain (Acute) Sciatica (Acute) UTI (urinary tract infection) (Acute) Dehydration (Acute) Acute renal failure (Acute) Anemia (Acute) Community acquired pneumonia (Acute) 74 y/o admitted with a complaint of chest pain, with general malaise and diarrhea # Chest pain * chest pain was left sided, aggravated by movement, and relieved by rest. * initial troponin was negative. Chest x-ray showed retrocardiac opacity in the left lung consistent with an infiltrate. * Admit to PCU. Cycle troponins. Sublingual nitroglycerin PRN. Hold off on aspirin on account of anemia. * For stress test on Monday if troponins are negative. * # DEBBIE on CKD * Cr is 3.61, with baseline of around 1.2-1.7. * Will hydrate with IV fluid normal saline. Check Nehal inferior. * Check renal ultrasound. * If creatinine does not trend down, will consult nephrology. #Anemia: * Hemoglobin is 7. * She states she had a colonoscopy about 3 years ago with removal of polyps and she is due for another one now. * Baseline hemoglobin is around 8-9. Will consult general surgery. * Check stool for occult blood and check iron panel. * #Heart failure: Not in exacerbation. Hold Zaroxolyn and Lasix on account of DEBBIE on CKD. #Type 2 diabetes mellitus: On Lantus 29 units nightly. Insulin sliding scale. Accu-Cheks AC at bedtime. #Hypertension: On amlodipine and metoprolol DVT prophylaxis: SCDs. No anticoagulation on account of anemia. CODE STATUS: Full code * Patient counseled extensively about different types of CODE STATUS including full code, DNR CCA and DNR CCA. Patient elects to be full code. Total tptd-ep-tkit time 16 minutes. 17:30 A rapid response was called as patient was found to be unresponsive. She was however arousable when the nurse called her. Blood sugar checked was in the 400s and she was alert and oriented but says she was feeling lethargic. Stat CT of the head ordered. Urine tox also ordered. Fall precautions. Inpatient E&M: 00515 Init Hosp L3 Procedures: 35226 Advncd Care Plan 30 Min
[2020-02-22] MEDS: Ceftriaxone 1 GM/50 ML BAG IV (16:29)
[2020-02-22 17:17] LABS: Probe Check PASS; Specimen Processing Control PASS
--- NOTE | 2020-02-22 18:30 | CT_ITS ---
STUDY: CT BRAIN WITHOUT CONTRAST REASON FOR EXAM: Female, 74 years old. Unresponsive RADIATION DOSAGE (If Supplied By Facility): CTDIvol = ( 44.99 ) mGy, DLP = ( 745.49 ) mGycm TECHNIQUE: Transaxial CT imaging of the brain was performed without administration of intravenous contrast material. Individualized dose optimization techniques were used for this CT. COMPARISON: 11/15/18 FINDINGS: There is no acute bleed or infarct. There are stable mild chronic ischemic changes. The ventricles are normal in configuration. There is no hydrocephalus. The visualized paranasal sinuses are clear. The mastoid air cells are well aerated. There is no skull fracture. CT/Brain/Head without Contrast IMPRESSION: No acute intracranial abnormality. Stable mild chronic ischemic changes. Electronically Signed: Scotty Marroquin, at 19:49 EDT Tel , Service support ,
[2020-02-22 19:01] LABS: Bedside Glucose 436 mg/dL (70-110)
--- NOTE | 2020-02-22 19:44 | EKG12_ITS ---
Test Reason : CP Blood Pressure : / mmHG Vent. Rate : 079 BPM Atrial Rate : 079 BPM P-R Int : 120 ms QRS Dur : 084 ms QT Int : 358 ms P-R-T Axes : 054 049 048 degrees QTc Int : 410 ms Normal sinus rhythm Normal ECG Confirmed by DUTCH BOWMAN, ANTONIA ([id number]), editor & co founder RADHA TAPIA ([id number]) on 02/25/2020 9:33:48 AM Referred By: KULDIP Confirmed By:ANTONIA JUDD MD
[2020-02-22 20:44] LABS: Ferritin 431 ng/mL (8-252); Iron 13 ug/dL (50-170); Iron Binding Capacity,Total 141 ug/dL (250-450); PERCENT IRON SATURATION 9.2 % (15.0-55.0)
[2020-02-22] MEDS: Atorvastatin Calcium 10 MG Tablet PO (22:37)
[2020-02-22] MEDS: traZODone 50 MG Tablet 25 MG PO (22:37)
[2020-02-22] MEDS: Metoprolol Tartrate 25 MG Tablet PO (22:37)
[2020-02-22] MEDS: Latanoprost 0.005% 1 Bottle 1 DRP EACH EYE (22:38)
[2020-02-22] MEDS: Gabapentin 100 MG Capsule 200 MG PO (22:42)
[2020-02-22 22:51] LABS: Bedside Glucose 415 mg/dL (70-110)
[2020-02-23] VITALS (19 sets, daily range): BP systolic 117–143; BP diastolic 47–70; PULSE 63–84; RESP 18; TEMP 36.4–37.2; O2SAT 95–100
--- NOTE | 2020-02-23 01:30 | EKG12_ITS ---
Test Reason : CP Blood Pressure : / mmHG Vent. Rate : 061 BPM Atrial Rate : 061 BPM P-R Int : 142 ms QRS Dur : 084 ms QT Int : 440 ms P-R-T Axes : 050 044 046 degrees QTc Int : 442 ms Normal sinus rhythm Normal ECG Confirmed by HAYES MADSEN ([id number]), newspaper editor JUAN NEELY ([id number]) on 02/27/2020 9:04:43 AM Referred By: FIDEL Confirmed By:HAYES MADSEN
[2020-02-23 02:14] LABS: Amphetamine Urine VISTA NEGATIVE (<1000 ng/mL); Barbiturate Urine VISTA NEGATIVE (< 200 ng/mL); Benzodiazepine Urine VISTA NEGATIVE (< 200 ng/mL); Cocaine Urine VISTA NEGATIVE (< 300 ng/mL); Ecstacy Urine VISTA NEGATIVE (< 500 ng/mL); Methadone Urine VISTA NEGATIVE (< 300 ng/mL); PCP Urine VISTA NEGATIVE (< 25 ng/mL); THC Urine VISTA NEGATIVE (< 50 ng/mL); Vista UDS pH Range 7
[2020-02-23] MEDS: Nitroglycerin (INPATIENT USE) 0.4 MG TAB.SUBL SUBLINGUAL ×2 (02:36→02:50)
[2020-02-23] MEDS: 0.9% Normal Saline 1,000 ML 150 ML IV ×3 (02:43→18:00)
[2020-02-23 05:33] LABS: Absolute Lymphocyte Count 0.73 X10^3/uL (0.83-4.51); Absolute Neutrophil Count 6.8 X10^3/uL (2.0-7.7); Basophil# 0.02 X10^3/uL; Basophil% 0.2 % (0-1); Eosinophil# 0.17 X10^3/uL; Hematocrit 22.2 % (37-47); Lymphocyte # 0.73 X10^3/ul (4.0); Lymphocyte % 8.8 % (19-41); Mean Corp Hgb Conc 31.5 g/dL (32-36); Mean Corpuscular Hgb 29.3 pg (27.0-32.0); Mean Corpuscular Volume 92.9 fL (81-99); Mean Platelet Vol. 11.1 fl (6.2-12.0); Monocyte% 7.2 % (0-10); NRBC Flagged by Analyzer 0 % (0-5); Neutrophil # 6.79 X10^3/uL (2.7-7.7); Neutrophil % 81.4 % (47-70); Platelet Count 172 K/mm3 (150-450); RBC Distribution Width SD 44.3 fl (35.1-43.9); Red Blood Count 2.39 M/mm3 (4.2-5.4); White Blood Count 8.3 K/mm3 (4.4-11.0)
[2020-02-23 05:55] LABS: Bacteria 0 SEEN /hpf (None Seen); Mucous, Urine 0 SEEN /hpf (<or=2+); White Blood Cells 0 SEEN /hpf (0-5)
[2020-02-23 06:03] LABS: Anion Gap 7 (5-15); BUN 61 mg/dL (7-18); BUN/Creat Ratio 17.1 RATIO (10-20); Calcium,Total 7.8 mg/dL (8.5-10.1); Chloride 102 mmol/L (98-107); Creatinine, Serum 3.56 mg/dL (0.55-1.02); EST Glomerular Filtration Rate 13 mL/min (>60); Est Glom Filt Rate - Afr Amer 16 mL/min (>60); Estimated Creatinine Clearance 9.96 ml/min; Glucose 298 mg/dL (74-106); Potassium 4.3 mmol/L (3.5-5.1); Sodium Level 131 mmol/L (136-145)
[2020-02-23 06:05] LABS: Color, Urine Yellow (Yellow); Glucose, Dipstick 1000 mg/dl (Normal); Ketone-Dipstick Negative (Negative); Leukocyte Esterase-Dipstick Negative /ul (Negative); Nitrite-Dipstick Negative (Negative); Occult Blood-Urine 25 /ul (Negative); Protein-Dipstick 500 mg/dl (Negative); Specific Gravity, Urine 1.015 (1.002-1.030); Urine Bilirubin Dipstick Negative (Negative); Urine Clarity Sl. Cloudy (Clear); Urine Urobilinogen Normal (Normal)
[2020-02-23 06:07] LABS: Urea Nitrogen, Urine 394 mg/dL (NO RANGE EST.)
[2020-02-23 06:41] LABS: Amorphous Sediment 2+; Hyaline Cast 5-10 SEEN /lpf (0-5); Red Blood Cells-Urine 0-5 SEEN /hpf (0-5); Squamous Epithelial Cells - UA 5-10 SEEN /hpf (5-10)
[2020-02-23 06:51] LABS: Bedside Glucose 322 mg/dL (70-110)
[2020-02-23] MEDS: Gabapentin 100 MG Capsule 200 MG PO ×3 (07:27→21:45)
--- NOTE | 2020-02-23 08:15 | CT_ITS ---
STUDY: CT CHEST WITHOUT CONTRAST REASON FOR EXAM: Female, 74 years old. HEMOPTYSIS, PNEUMONIA,LEFT SIDE CHEST PAIN -- H-COPD,EMPHYSEMA, HEART DZ,CAD,DIAB,HTN -- SURG-APPY,GB,HYST RADIATION DOSAGE (If Supplied By Facility): CTDIvol = ( 17.23 ) mGy, DLP = ( 542.49 ) mGycm TECHNIQUE: Transaxial imaging was performed without the administration of intravenous contrast material. Individualized dose optimization techniques were used for this CT. COMPARISON: X-ray 02/22/2020, CT 06/21/2019 FINDINGS: Alveolar opacity in the lower left lung consistent with left lower lobe pneumonia. Moderate bilateral pleural effusions. Normal heart and pericardium. There are calcifications of the coronary arteries. Normal mediastinum. Normal hilar regions. Normal unenhanced pulmonary arteries. There is atherosclerotic calcification of the aortic arch with tortuosity and elongation of the aortic arch and descending thoracic aorta. Normal osseous structures. Status post cholecystectomy. CT/Chest without Contrast IMPRESSION: Left lower lobe pneumonia with moderate bilateral pleural effusions. Electronically Signed: Colton Lee MD at 9:45 EDT Tel , Service support ,
--- NOTE | 2020-02-23 09:11 | CON.PCM_ITS ---
Problem List (1) Acute renal failure Status: Acute (2) Anemia Status: Acute (3) Community acquired pneumonia Status: Acute (4) COPD (chronic obstructive pulmonary disease) Status: Chronic (5) Diabetes type 2, uncontrolled Status: Chronic (6) Intractable low back pain Status: Acute (7) Sciatica Status: Acute (8) Bipolar disorder Status: Chronic (9) Cerebrovascular disease Status: Chronic Comment: Status post acute ischemic stroke No residual deficit (10) Depression Status: Chronic (11) Depressive disorder Status: Chronic (12) Generalized anxiety disorder Status: Chronic (13) Hyperlipidemia Status: Chronic (14) Hypertension Status: Chronic (15) Multiple personality disorder Status: Chronic (16) ELENITA on CPAP Status: Chronic (17) Peripheral neuropathy Status: Chronic (18) Restless legs syndrome Status: Chronic (19) Rheumatoid arthritis Status: Chronic (20) Seizure disorder Status: Chronic (21) Stroke Status: Chronic Reason for Consult Date of Consultation: 02/23/20 Reason for Consultation: Hemoptysis History of Present Illness: The patient is a 74 year old F, with complex past medical history listed below, who presented to [facility] on 02/22/2020 secondary to left-sided chest pain. Patient stated that the pain started about 90 minutes ago, but she is noted 7 to 8 days of progressive worsening. Patient states that she started to have some cough and shortness of breath. Patient did not report any vomiting, diaphoresis, fever or leg swelling. Patient states that shortly after presentation she started to have hemoptysis. Patient describes the hemoptysis as dime to nickel size and bright red to brown. Patient has not reported any epistaxis recently. In the ER, patient was noted to be 96% on room air. No fever was reported, but patient was slightly hypertensive at 155/63. Laboratory work-up showed an elevated creatinine from baseline and a chest x-ray showed a retrocardiac left lung infiltrate with leukocytosis at 11.4. Patient did have an anemia at 7, which was down from 8.6 a month ago. Patient's creatinine was elevated at 4 with a baseline of less than 2. Patient was placed on ceftriaxone and Zithromax and admitted to the hospital for further evaluation. Patient does have an extensive smoking history, but states that she has not had a cigarette in 5 days secondary to her symptomatology. Patient has never been seen by a mixing operator and does not believe she is ever had a pulmonary function test. Patient is currently not on any inhalers at home, but does use some Flonase for seasonal allergies. Patient has reported some irritation of her left elbow over a protruding vein, but denies any petechial rash, excessive bruising, melena, hematochezia or epistaxis. Patient does take Lasix on a rout ine basis and states she has been compliant with medications. Review of systems otherwise negative from a constitutional, HEENT, respiratory, cardiovascular, GI, genitourinary, musculoskeletal, skin, neurologic, psychiatric and hematologic system unless stated above. 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) Obesity (Chronic) Hypertension (Chronic) Diabetes type 2, uncontrolled (Chronic) Hyperlipidemia (Chronic) Cerebrovascular disease (Chronic) Status post acute ischemic stroke No residual deficit Allergies ciprofloxacin [From Cipro] Allergy (Verified 02/22/20 19:48) Rash codeine Allergy (Verified 02/22/20 19:48) Shortness of breath Penicillins Allergy (Verified 02/22/20 19:48) Hives CILLINS Allergy (Uncoded 02/22/20 19:48) Unknown Home Medications: Ambulatory Orders Medication Instructions Recorded Isosorbide Mononitrate [Isosorbide 30 mg PO DAILY 04/10/15 Mononitrate ER] Latanoprost 0.005% [Xalatan 1 drop EACH EYE QHS 05/03/18 Opthalmic] Insulin Lispro [Humalog KwikPen] 10 unit SUBCUT TIDCM 06/10/19 Famotidine 40 mg PO BID 06/29/19 Insulin Glargine [Lantus SoloStar 29 units SUBCUT QHS 06/29/19 Pen] traZODone [Desyrel] 25 mg PO QHS 06/29/19 Atorvastatin Calcium [Lipitor] 10 mg PO QHS 09/06/19 Ergocalciferol [Vitamin D] 50,000 unit PO QWEEK 09/06/19 Fexofenadine HCl 60 mg PO DAILY 09/06/19 Gabapentin [Neurontin] 200 mg PO BID #0 09/06/19 Lactobacillus Acidophilus 1 tab PO QHS 09/06/19 [Acidophilus] Amlodipine [Norvasc] 10 mg PO DAILY #30 tab 09/08/19 Metoprolol Tartrate [Lopressor 25 mg PO BID #60 tab 09/08/19 (beta nataliia)] Fluticasone 0.05% [Flonase Nasal 2 spray NASAL DAILY 09/24/19 [place]] Furosemide [Lasix] 40 mg PO DAILY 09/24/19 Lisinopril [Prinivil] 15 mg PO QHS 09/24/19 Potassium Chloride [Klor-Con M20] 20 meq PO TID 09/24/19 Zaroxolyn 10 mg PO DAILY 09/24/19 cycloBENZAPRine HCl [Flexeril] 10 mg PO TID PRN PRN #15 tab 12/23/19 Cephalexin [Keflex] 500 mg PO Q8 #9 cap 12/26/19 Surgical History: appendectomy, cataract, cholecystectomy, hysterectomy, tonsillectomy, - - Glaucoma, abdominal surgery for cyst. Psychiatric History: Anxiety, Bipolar, Depression, - - Multiple personality disorder. 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 CT scan of the chest does show a left lower lobe infiltrate with some emphysematous changes. No bronchiectasis is noted. No obvious mass can be noted. - Physical Exam Vitals/I&O's: Vital Signs Temp Pulse Resp BP Pulse Ox 36.7 C 70 18 122/54 H 98 02/23/20 02:40 02/23/20 06:48 02/23/20 02:40 02/23/20 02:50 02/23/20 02:40 Oxygen Flow Rate (L/min) 2 Oxygen Delivery Method Room Air Weight: 78.1 kg Body Mass Index (BMI) 33.6 Finger Stick Blood Glucose 88 Intake and Output for Last 24 Hours 02/21/20 02/22/20 02/23/20 23:59 23:59 23:59 Intake Total 1315 / 1535 1220 / 1220 Output Total 300 / 300 Balance 1315 / 1535 920 / 920 General: Alert, Oriented x3, Cooperative, No apparent distress, - - Obese. Appears stated age. HEENT: Atraumatic, PERRLA, EOMI, Normocephalic, - - No scleral icterus or injection noted Oral: Moist Mucosa, No Gingival or Mucosal Lesions/ Ulcerations Neck: Supple, No JVD, No Nodes, Trachea Midline Lungs: No wheeze, No rales, Diminished, Rhonchi - Left base Cardiovascular: Regular rate, Regular Rhythm, Normal S1, Normal S2, No murmurs, No rub noted, No Gallop Abdomen: Bowel Sounds Present, Soft, Non Tender, Non-Distended, Obese Extremities: No clubbing, No cyanosis, Edema, - - Slightly protruding vein noted on the left elbow. No surrounding induration or erythema Skin: No rashes, No breakdown Musculoskeletal: No Tenderness to Palpation of Joints or Extremities Lymphatic: No Cervical, Supraclavicular, or Inguinal Adenopathy Neurological: Cranial nerves II-XII grossly intact, Neuro grossly intact, Motor Exam 5/5 strength throughout Psych/Mental Status: Normal Affect, Appropriate Microbiology Past 72 Hours 02/23/20 01:40 Urine, Clean Catch Legionella Antigen - Final 02/23/20 01:40 Urine, Clean Catch Streptococcus pneumoniae Antigen (M - Final 02/22/20 14:40 Stool Stool Occult Blood (ANTONIO) - Final Laboratory Results 02/22/20 14:00: WBC 11.4 H, RBC 2.41 L, Hgb 7.0 L, Hct 21.9 L, MCV 90.9, MCH 29.0, MCHC 32.0, RDW Std Deviation 43.2, RDW Coeff of Kusum 13.0, Plt Count 209, MPV 10.8, Immature Gran % (Auto) 0.400, Neut % (Auto) 83.5 H, Lymph % (Auto) 7.2 L, Bell % (Auto) 7.5, Eos % (Auto) 1.1, Baso % (Auto) 0.3, Absolute Neuts (auto) 9.5 H, Absolute Lymphs (auto) 0.82 L, Nucleated RBC % 0 02/22/20 14:00: Sodium 130 L, Potassium 4.0, Chloride 98, Carbon Dioxide 25.0, Anion Gap 7, BUN 61 H, Creatinine 3.61 H, Estim Creat Clear Calc 9.82, Est GFR (MDRD) Af Amer 16 L, Est GFR (MDRD) Non-Af 13 L, BUN/Creatinine Ratio 16.9, Glucose 374 H, Calcium 8.2 L, Total Bilirubin 0.40, Direct Bilirubin 0.17, AST 201 H, ALT 150 H, Alkaline Phosphatase 52, Troponin I 0.040, Total Protein 6.2 L , Albumin 1.8 L, Globulin 4.4 H, Lipase 226 02/22/20 16:17: COVID-19 (HENRY) Negative 02/22/20 18:25: POC Glucose 436 H 02/22/20 19:45: Iron 13 L, TIBC 141 L, Iron Saturation 9.2 L, Ferritin 431 H 02/22/20 19:45: Troponin I 0.038 02/22/20 21:51: Troponin I 0.024 02/22/20 22:34: POC Glucose 415 H 02/23/20 01:40: Urine Opiates Screen POSITIVE H, Urine Methadone Screen NEGATIVE, Ur Barbiturates Screen NEGATIVE, Ur Phencyclidine Scrn NEGATIVE, Ur Amphetamines Screen NEGATIVE, U Methamphetamin-MDMA NEGATIVE, U Benzodiazepines Scrn NEGATIVE, Urine Cocaine Screen NEGATIVE, U Cannabinoids Screen NEGATIVE, Ur Drug Screen Comment 02/23/20 01:40: Urine Creatinine 86.20 02/23/20 01:40: Urine Urea Nitrogen 394 02/23/20 01:40: Urine Color Yellow, Urine Clarity Sl. Cloudy, Urine pH 5.0, Ur Specific [place] 1.015, Urine Protein 500 H, Urine Glucose (UA) 1000 H, Urine Ketones Negative, Urine Occult Blood 25 H, Urine Nitrite Negative, Urine Bilirubin Negative, Urine Urobilinogen Normal, Ur Leukocyte Esterase Negative, Urine RBC 0-5 SEEN, Urine WBC 0 SEEN, Ur Squamous Epith Cells 5-10 SEEN, Amorphous Sediment 2+, Urine Bacteria 0 SEEN, Hyaline Casts 5-10 SEEN, Urine Mucus 0 SEEN 02/23/20 05:30: WBC 8.3, RBC 2.39 L, Hgb 7.0 L, Hct 22.2 L, MCV 92.9, MCH 29.3, MCHC 31.5 L, RDW Std Deviation 44.3 H, RDW Coeff of Kusum 13.0, Plt Count 172, MPV 11.1, Immature Gran % (Auto) 0.400, Neut % (Auto) 81.4 H, Lymph % (Auto) 8.8 L, Bell % (Auto) 7.2, Eos % (Auto) 2.0, Baso % (Auto) 0.2, Absolute Neuts (auto) 6.8, Absolute Lymphs (auto) 0.73 L, Nucleated RBC % 0 02/23/20 05:30: Sodium 131 L, Potassium 4.3, Chloride 102, Carbon Dioxide 22.0, Anion Gap 7, BUN 61 H, Creatinine 3.56 H, Estim Creat Clear Calc 9.96, Est GFR (MDRD) Af Amer 16 L, Est GFR (MDRD) Non-Af 13 L, BUN/Creatinine Ratio 17.1, Glucose 298 H, Calcium 7.8 L 02/23/20 06:42: POC Glucose 322 H 02/23/20 08:21: Blood Type Pending, Antibody Screen Pending, Crossmatch See Detail Current Medications Atorvastatin Calcium (Lipitor) 10 mg PO QHS [facility] Last Admin: 02/22/20 22:37 Dose: 10 mg Documented by: Cyclobenzaprine HCl (Flexeril) 10 mg PO TID PRN PRN PRN Reason: MUSCLE SPASM Ergocalciferol (Vitamin D) 50,000 unit PO QWEEK [facility] Fluticasone Propionate (Flonase Nasal [place]) 2 spray NASAL DAILY [facility] Gabapentin (Neurontin) 200 mg PO BIDCM [facility] Last Admin: 02/23/20 07:27 Dose: 200 mg Documented by: Sodium Chloride () 1,000 mls @ 150 mls/hr IV .Q6H40M [facility] Last Admin: 02/23/20 02:43 Dose: 150 mls/hr Documented by: Ceftriaxone Sodium (Rocephin) 1 gm in 50 mls @ 100 mls/hr IV Q24 [facility] Insulin Glargine (Lantus (Bkc)) 29 units SC QHS [facility] Last Admin: 02/22/20 22:38 Dose: 29 units Documented by: Isosorbide Mononitrate (Imdur) 30 mg PO DAILY [facility] Lactobacillus Acidophilus (Acidophilus) 1 tablet PO QHS [facility] Last Admin: 02/22/20 22:37 Dose: 1 tablet Documented by: Latanoprost (Xalatan Opthalmic) 1 drop EACH EYE QHS [facility] Last Admin: 02/22/20 22:38 Dose: 1 drop Documented by: Loratadine (Claritin) 10 mg PO DAILY [facility] Metoprolol Tartrate (Lopressor (Beta Nataliia)) 25 mg PO BID [facility] Last Admin: 02/22/20 22:37 Dose: 25 mg Documented by: Morphine Sulfate () 2 mg IV Q3H PRN PRN PRN Reason: pain 6-10/10 Nitroglycerin (Nitrostat) 0.4 mg SUBLINGUAL Q5M PRN PRN Reason: CARDIAC/CHEST PAIN Last Admin: 02/23/20 02:50 Dose: 0.4 mg Documented by: Ondansetron HCl (Zofran) 4 mg IV Q8H PRN PRN PRN Reason: NAUSEA/VOMITING Sodium Chloride () 10 - 40 ml IV UD PRN PRN Reason: SALINE FLUSH Trazodone HCl (Desyrel) 25 mg PO QHS [facility] Last Admin: 02/22/20 22:37 Dose: 25 mg Documented by: Clinical Impression(s) from Imaging Studies Chest X-Ray 02/22/20 13:49 IMPRESSION: Retrocardiac opacity in the left lung which is consistent with an infiltrate. Electronically Signed: Scotty Marroquin, at 14:38 EDT Tel , Service support , Brain CT 02/22/20 18:30 IMPRESSION: No acute intracranial abnormality. Stable mild chronic ischemic changes. Electronically Signed: Scotty Marroquin, at 19:49 EDT Tel , Service support , Assessment/Plan All Active Problems Intractable low back pain (Acute) Sciatica (Acute) UTI (urinary tract infection) (Acute) Dehydration (Acute) Acute renal failure (Acute) Anemia (Acute) Community acquired pneumonia (Acute) RECOMMENDATIONS: 1. Continue empiric antibiotic therapy 2. Obtain vasculitis labs 3. Consider renal consult if not improving after 24 hours 4. Walking oximetry prior to discharge 5. Outpatient complete PFT and smoking cessation IMPRESSIONS: 1. Probable left lower lobe community-acquired pneumonia Patient with infiltrate noted in the left lower lobe. Patient does have some mediastinal lymphadenopathy, but no obvious mass is appreciable. Patient did not have contrast secondary to renal function. Patient is not reporting recent antibiotics, so ceftriaxone as a throw should be appropriate. Other differential diagnosis would include Goodpasture syndrome given renal dysfunct ion, anemia and lung infiltrate. Patient is not reporting any epistaxis at this time. Patient does have significant anemia that does not appear to be accounted for by reported hemoptysis volume. Would not anticoagulate at this time. A VQ scan would be difficult to interpret given infiltrate. Patient's current renal function does not allow for a CTA of the chest to evaluate for PE. Infiltrate on CT scan is not suggestive or typical of a PE. Given risks, would not recommend anticoagulation at this time. Patient does not have significant wheezing to suggest that steroid therapy would be helpful. Given extensive smoking history, outpatient PFT for evaluation of COPD would be appropriate. 2. Acute kidney injury on chronic kidney disease stage IV Renal ultrasound has been obtained. Patient does not have significant leukocytosis to suggest AIN as an etiology. Patient does have significant protein and glucose, but this could be found in diabetic nephropathy. If not improving by tomorrow, consider nephrology consult. 3. CHF/type 2 diabetes mellitus/hypertension Complicates care, management, recovery and prognosis. Okay to continue with most of baseline medications. Patient is currently a full code. Would likely hold on diuretic therapy given renal dysfunction. Inpatient E&M: 64734 Init Hosp L3
[2020-02-23] MEDS: Ceftriaxone 1 GM/50 ML BAG IV (09:18)
[2020-02-23] MEDS: Fluticasone 0.05% 1 SPRAY NASAL.SRY 2 SPRAY NASAL (09:19)
[2020-02-23] MEDS: Metoprolol Tartrate 25 MG Tablet PO ×2 (09:20→21:31)
[2020-02-23] MEDS: Loratadine 10 MG Tablet PO (09:21)
[2020-02-23] MEDS: Isosorbide Mononitrate 30 MG Tablet PO (09:21)
--- NOTE | 2020-02-23 09:32 | CON.PCM_ITS ---
Problem List (1) Anemia Status: Acute Qualifiers: Anemia type: iron deficiency Iron deficiency anemia type: unspecified iron deficiency Qualified Code(s): D50.9 - Iron deficiency anemia, unspecified Reason for Consult Date of Consultation: 02/23/20 History of Present Illness: The patient is a 74 year old F who presents with hemoptysis and as well as chest pain and shortness of breath. The patient is also been noted to have anemia. The patient does not note any gross blood in her stool or abdominal pain. She says her last colonoscopy was 3 years ago and she was recommended to have another one in 3 years. She says that her last EGD was several years ago. 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) Obesity (Chronic) Hypertension (Chronic) Diabetes type 2, uncontrolled (Chronic) Hyperlipidemia (Chronic) Cerebrovascular disease (Chronic) Status post acute ischemic stroke No residual deficit Allergies ciprofloxacin [From Cipro] Allergy (Verified 02/22/20 19:48) Rash codeine Allergy (Verified 02/22/20 19:48) Shortness of breath Penicillins Allergy (Verified 02/22/20 19:48) Hives CILLINS Allergy (Uncoded 02/22/20 19:48) Unknown Home Medications: Ambulatory Orders Medication Instructions Recorded Isosorbide Mononitrate [Isosorbide 30 mg PO DAILY 04/10/15 Mononitrate ER] Latanoprost 0.005% [Xalatan 1 drop EACH EYE QHS 05/03/18 Opthalmic] Insulin Lispro [Humalog KwikPen] 10 unit SUBCUT TIDCM 06/10/19 Famotidine 40 mg PO BID 06/29/19 Insulin Glargine [Lantus SoloStar 29 units SUBCUT QHS 06/29/19 Pen] traZODone [Desyrel] 25 mg PO QHS 06/29/19 Atorvastatin Calcium [Lipitor] 10 mg PO QHS 09/06/19 Ergocalciferol [Vitamin D] 50,000 unit PO QWEEK 09/06/19 Fexofenadine HCl 60 mg PO DAILY 09/06/19 Gabapentin [Neurontin] 200 mg PO BID #0 09/06/19 Lactobacillus Acidophilus 1 tab PO QHS 09/06/19 [Acidophilus] Amlodipine [Norvasc] 10 mg PO DAILY #30 tab 09/08/19 Metoprolol Tartrate [Lopressor 25 mg PO BID #60 tab 09/08/19 (beta nataliia)] Fluticasone 0.05% [Flonase Nasal 2 spray NASAL DAILY 09/24/19 [place]] Furosemide [Lasix] 40 mg PO DAILY 09/24/19 Lisinopril [Prinivil] 15 mg PO QHS 09/24/19 Potassium Chloride [Klor-Con M20] 20 meq PO TID 09/24/19 Zaroxolyn 10 mg PO DAILY 09/24/19 cycloBENZAPRine HCl [Flexeril] 10 mg PO TID PRN PRN #15 tab 12/23/19 Cephalexin [Keflex] 500 mg PO Q8 #9 cap 12/26/19 Surgical History: appendectomy, cataract, cholecystectomy, hysterectomy, tonsillectomy, - - Glaucoma, abdominal surgery for cyst. Psychiatric History: Anxiety, Bipolar, Depression, - - Multiple personality disorder. [employer] History: No pertinent [employer] history Smoking Status: Former smoker Alcohol: None Drugs: None - *Family History Maternal History Items: Cancer, Diabetes, Heart Disease, Hypertension Paternal History Items: Cancer, Heart Disease Review of Systems Constitutional: Denies: Anorexia, Fever HEENT: Denies: Difficulty Swallowing Cardiovascular: Reports: Chest Pain Respiratory: Reports: Cough, Hemoptysis, Shortness of Breath Gastrointestinal: Denies: Abdominal Pain, Diarrhea, Hematemesis, Hematochezia, Nausea, Melena, Vomiting Genitourinary: Denies: Dysuria Musculoskeletal: Denies: Leg Pain Skin: Denies: Jaundice Neurological: Denies: Balance problems Hematologic/ Lymphatic: Reports: Anemia Patient Problems: Active and Suspected Problems Dehydration (Acute) Acute renal failure (Acute) Anemia (Acute) Community acquired pneumonia (Acute) - Physical Exam Vitals/I&O's: Vital Signs Temp Pulse Resp BP Pulse Ox 98.4 F 67 18 140/66 H 97 02/23/20 09:16 02/23/20 09:20 02/23/20 09:16 02/23/20 09:20 02/23/20 09:16 Oxygen Flow Rate (L/min) 2 Oxygen Delivery Method Room Air Weight: 172 lb 2.896 oz Body Mass Index (BMI) 33.6 Finger Stick Blood Glucose 88 Intake and Output for Last 24 Hours 02/21/20 02/22/20 02/23/20 23:59 23:59 23:59 Intake Total 1315 / 1535 2207.5 / 2207.5 Output Total 300 / 300 Balance 1315 / 1535 1907.5 / 1907.5 General: Alert, Oriented x3 Neck: No JVD Lungs: Normal air movement Abdomen: Soft, Non Tender, Non-Distended Microbiology Past 72 Hours 02/23/20 01:40 Urine, Clean Catch Legionella Antigen - Final 02/23/20 01:40 Urine, Clean Catch Streptococcus pneumoniae Antigen (M - Final 02/22/20 14:40 Stool Stool Occult Blood (ANTONIO) - Final Laboratory Results 02/22/20 14:00: WBC 11.4 H, RBC 2.41 L, Hgb 7.0 L, Hct 21.9 L, MCV 90.9, MCH 29.0, MCHC 32.0, RDW Std Deviation 43.2, RDW Coeff of Kusum 13.0, Plt Count 209, MPV 10.8, Immature Gran % (Auto) 0.400, Neut % (Auto) 83.5 H, Lymph % (Auto) 7.2 L, Knott % (Auto) 7.5, Eos % (Auto) 1.1, Baso % (Auto) 0.3, Absolute Neuts (auto) 9.5 H, Absolute Lymphs (auto) 0.82 L, Nucleated RBC % 0 02/22/20 14:00: Sodium 130 L, Potassium 4.0, Chloride 98, Carbon Dioxide 25.0, Anion Gap 7, BUN 61 H, Creatinine 3.61 H, Estim Creat Clear Calc 9.82, Est GFR (MDRD) Af Amer 16 L, Est GFR (MDRD) Non-Af 13 L, BUN/Creatinine Ratio 16.9, Glucose 374 H, Calcium 8.2 L, Total Bilirubin 0.40, Direct Bilirubin 0.17, AST 201 H, ALT 150 H, Alkaline Phosphatase 52, Troponin I 0.040, Total Protein 6.2 L , Albumin 1.8 L, Globulin 4.4 H, Lipase 226 02/22/20 16:17: COVID-19 (HENRY) Negative 02/22/20 18:25: POC Glucose 436 H 02/22/20 19:45: Iron 13 L, TIBC 141 L, Iron Saturation 9.2 L, Ferritin 431 H 02/22/20 19:45: Troponin I 0.038 02/22/20 21:51: Troponin I 0.024 02/22/20 22:34: POC Glucose 415 H 02/23/20 01:40: Urine Opiates Screen POSITIVE H, Urine Methadone Screen NEGATIVE, Ur Barbiturates Screen NEGATIVE, Ur Phencyclidine Scrn NEGATIVE, Ur Amphetamines Screen NEGATIVE, U Methamphetamin-MDMA NEGATIVE, U Benzodiazepines Scrn NEGATIVE, Urine Cocaine Screen NEGATIVE, U Cannabinoids Screen NEGATIVE, Ur Drug Screen Comment 02/23/20 01:40: Urine Creatinine 86.20 02/23/20 01:40: Urine Urea Nitrogen 394 02/23/20 01:40: Urine Color Yellow, Urine Clarity Sl. Cloudy, Urine pH 5.0, Ur Specific [place] 1.015, Urine Protein 500 H, Urine Glucose (UA) 1000 H, Urine Ketones Negative, Urine Occult Blood 25 H, Urine Nitrite Negative, Urine Bilirubin Negative, Urine Urobilinogen Normal, Ur Leukocyte Esterase Negative, Urine RBC 0-5 SEEN, Urine WBC 0 SEEN, Ur Squamous Epith Cells 5-10 SEEN, Amorphous Sediment 2+, Urine Bacteria 0 SEEN, Hyaline Casts 5-10 SEEN, Urine Mucus 0 SEEN 02/23/20 05:30: WBC 8.3, RBC 2.39 L, Hgb 7.0 L, Hct 22.2 L, MCV 92.9, MCH 29.3, MCHC 31.5 L, RDW Std Deviation 44.3 H, RDW Coeff of Kusum 13.0, Plt Count 172, MPV 11.1, Immature Gran % (Auto) 0.400, Neut % (Auto) 81.4 H, Lymph % (Auto) 8.8 L, Knott % (Auto) 7.2, Eos % (Auto) 2.0, Baso % (Auto) 0.2, Absolute Neuts (auto) 6.8, Absolute Lymphs (auto) 0.73 L, Nucleated RBC % 0 02/23/20 05:30: Sodium 131 L, Potassium 4.3, Chloride 102, Carbon Dioxide 22.0, Anion Gap 7, BUN 61 H, Creatinine 3.56 H, Estim Creat Clear Calc 9.96, Est GFR (MDRD) Af Amer 16 L, Est GFR (MDRD) Non-Af 13 L, BUN/Creatinine Ratio 17.1, Glucose 298 H, Calcium 7.8 L 02/23/20 06:42: POC Glucose 322 H 02/23/20 08:21: Blood Type Pending, Antibody Screen Pending, Crossmatch See Detail Current Medications Atorvastatin Calcium (Lipitor) 10 mg PO QHS [facility] Last Admin: 02/22/20 22:37 Dose: 10 mg Documented by: Cyclobenzaprine HCl (Flexeril) 10 mg PO TID PRN PRN PRN Reason: MUSCLE SPASM Ergocalciferol (Vitamin D) 50,000 unit PO QWEEK [facility] Last Admin: 02/23/20 09:28 Dose: 50,000 unit Documented by: Fluticasone Propionate (Flonase Nasal [place]) 2 spray NASAL DAILY [facility] Last Admin: 02/23/20 09:19 Dose: 2 spray Documented by: Gabapentin (Neurontin) 200 mg PO BIDCM [facility] Last Admin: 02/23/20 07:27 Dose: 200 mg Documented by: Sodium Chloride () 1,000 mls @ 150 mls/hr IV .Q6H40M [facility] Last Admin: 02/23/20 09:18 Dose: 150 mls/hr Documented by: Ceftriaxone Sodium (Rocephin) 1 gm in 50 mls @ 100 mls/hr IV Q24 [facility] Last Admin: 02/23/20 09:18 Dose: 100 mls/hr Documented by: Insulin Glargine (Lantus (Bkc)) 29 units SC QHS [facility] Last Admin: 02/22/20 22:38 Dose: 29 units Documented by: Isosorbide Mononitrate (Imdur) 30 mg PO DAILY [facility] Last Admin: 02/23/20 09:21 Dose: 30 mg Documented by: Lactobacillus Acidophilus (Acidophilus) 1 tablet PO QHS [facility] Last Admin: 02/22/20 22:37 Dose: 1 tablet Documented by: Latanoprost (Xalatan Opthalmic) 1 drop EACH EYE QHS [facility] Last Admin: 02/22/20 22:38 Dose: 1 drop Documented by: Loratadine (Claritin) 10 mg PO DAILY [facility] Last Admin: 02/23/20 09:21 Dose: 10 mg Documented by: Metoprolol Tartrate (Lopressor (Beta Nataliia)) 25 mg PO BID [facility] Last Admin: 02/23/20 09:20 Dose: 25 mg Documented by: Morphine Sulfate () 2 mg IV Q3H PRN PRN PRN Reason: pain 6-10/10 Nitroglycerin (Nitrostat) 0.4 mg SUBLINGUAL Q5M PRN PRN Reason: CARDIAC/CHEST PAIN Last Admin: 02/23/20 02:50 Dose: 0.4 mg Documented by: Ondansetron HCl (Zofran) 4 mg IV Q8H PRN PRN PRN Reason: NAUSEA/VOMITING Sodium Chloride () 10 - 40 ml IV UD PRN PRN Reason: SALINE FLUSH Trazodone HCl (Desyrel) 25 mg PO QHS [facility] Last Admin: 02/22/20 22:37 Dose: 25 mg Documented by: Assessment/Plan All Active Problems Intractable low back pain (Acute) Sciatica (Acute) UTI (urinary tract infection) (Acute) Dehydration (Acute) Acute renal failure (Acute) Anemia (Acute) Community acquired pneumonia (Acute) 74-year-old female with iron deficiency anemia 1. Patient had colonoscopy 3 years ago and polyps were identified according to the patient. She said her last EGD was long time ago. I believe that the patient's hemoptysis takes precedence at this point. I gave the patient my card and I would like her to follow-up with me as an outpatient to discuss EGD and colonoscopy. Heraclio Marrufo MD Pager: [facility] [address] [place] [address], [address] [place] [address] Office:
[2020-02-23 11:45] LABS: Bedside Glucose 313 mg/dL (70-110)
[2020-02-23] MEDS: Insulin Lispro 100 UNIT/ML INSULN.PEN SC ×3 (12:10→21:33)
--- NOTE | 2020-02-23 13:12 | PCM.PN.HOSP ---
Patient Problems: Active and Suspected Problems Dehydration (Acute) Acute renal failure (Acute) Anemia (Acute) Community acquired pneumonia (Acute) Subjective: Patient seen and examined. She felt much better today and asked about going home. She denied any fever, chills, nausea or vomiting. She did admit to persistent left-sided chest pain especially with movement and had started coughing up blood overnight. Labs and vitals reviewed. She was on room air at time of review. Vitals/I&O's: Vital Signs Temp Pulse Resp BP Pulse Ox 98.2 F 63 18 117/58 L 95 02/23/20 12:10 02/23/20 12:10 02/23/20 12:10 02/23/20 12:10 02/23/20 12:10 Oxygen Flow Rate (L/min) 2 Oxygen Delivery Method Room Air Weight: 172 lb 2.896 oz Body Mass Index (BMI) 33.6 Finger Stick Blood Glucose 88 Intake and Output for Last 24 Hours 02/21/20 02/22/20 02/23/20 23:59 23:59 23:59 Intake Total 1315 / 1535 2587.5 / 2587.5 Output Total 300 / 300 Balance 1315 / 1535 2287.5 / 2287.5 General: Alert, Oriented x3, Cooperative, No apparent distress, HEENT: Atraumatic, PERRLA, EOMI, Normocephalic Oral: Dry Mucosa Neck: Supple, No JVD, Negative Carotid Bruits Lungs: - - decreased breath sounds in left mid and lower lung cherry, with few crackles. No wheezes. on room air. Cardiovascular: Regular rate, No murmurs Abdomen: Bowel Sounds Present, Soft, Non Tender, Non-Distended, No Hepato-splenomegaly Extremities: No clubbing, No cyanosis, No edema, Capillary Refill Less than 3 Seconds Skin: No rashes, No breakdown Musculoskeletal: No Tenderness to Palpation of Joints or Extremities Lymphatic: No Cervical, Supraclavicular, or Inguinal Adenopathy Neurological: Cranial nerves II-XII grossly intact, Neuro grossly intact, Motor Exam 5/5 strength throughout Psych/Mental Status: Normal Affect, Appropriate, Alert and oriented to time, place, person, mood and affect Microbiology Past 72 Hours 02/23/20 01:40 Urine, Clean Catch Legionella Antigen - Final 02/23/20 01:40 Urine, Clean Catch Streptococcus pneumoniae Antigen (M - Final 02/22/20 14:40 Stool Stool Occult Blood (ANTONIO) - Final Laboratory Results 02/22/20 14:00: WBC 11.4 H, RBC 2.41 L, Hgb 7.0 L, Hct 21.9 L, MCV 90.9, MCH 29.0, MCHC 32.0, RDW Std Deviation 43.2, RDW Coeff of Kusum 13.0, Plt Count 209, MPV 10.8, Immature Gran % (Auto) 0.400, Neut % (Auto) 83.5 H, Lymph % (Auto) 7.2 L, [place] % (Auto) 7.5, Eos % (Auto) 1.1, Baso % (Auto) 0.3, Absolute Neuts (auto) 9.5 H, Absolute Lymphs (auto) 0.82 L, Nucleated RBC % 0 02/22/20 14:00: Sodium 130 L, Potassium 4.0, Chloride 98, Carbon Dioxide 25.0, Anion Gap 7, BUN 61 H, Creatinine 3.61 H, Estim Creat Clear Calc 9.82, Est GFR (MDRD) Af Amer 16 L, Est GFR (MDRD) Non-Af 13 L, BUN/Creatinine Ratio 16.9, Glucose 374 H, Calcium 8.2 L, Total Bilirubin 0.40, Direct Bilirubin 0.17, AST 201 H, ALT 150 H, Alkaline Phosphatase 52, Troponin I 0.040, Total Protein 6.2 L, Albumin 1.8 L, Globulin 4.4 H, Lipase 226 02/22/20 16:17: COVID-19 (HENRY) Negative 02/22/20 18:25: POC Glucose 436 H 02/22/20 19:45: Iron 13 L, TIBC 141 L, Iron Saturation 9.2 L, Ferritin 431 H 02/22/20 19:45: Troponin I 0.038 02/22/20 21:51: Troponin I 0.024 02/22/20 22:34: POC Glucose 415 H 02/23/20 01:40: Urine Opiates Screen POSITIVE H, Urine Methadone Screen NEGATIVE, Ur Barbiturates Screen NEGATIVE, Ur Phencyclidine Scrn NEGATIVE, Ur Amphetamines Screen NEGATIVE, U Methamphetamin-MDMA NEGATIVE, U Benzodiazepines Scrn NEGATIVE, Urine Cocaine Screen NEGATIVE, U Cannabinoids Screen NEGATIVE, Ur Drug Screen Comment 02/23/20 01:40: Urine Creatinine 86.20 02/23/20 01:40: Urine Urea Nitrogen 394 02/23/20 01:40: Urine Color Yellow, Urine Clarity Sl. Cloudy, Urine pH 5.0, Ur Specific [place] 1.015, Urine Protein 500 H, Urine Glucose (UA) 1000 H, Urine Ketones Negative, Urine Occult Blood 25 H, Urine Nitrite Negative, Urine Bilirubin Negative, Urine Urobilinogen Normal, Ur Leukocyte Esterase Negative, Urine RBC 0-5 SEEN, Urine WBC 0 SEEN, Ur Squamous Epith Cells 5-10 SEEN, Amorphous Sediment 2+, Urine Bacteria 0 SEEN, Hyaline Casts 5-10 SEEN, Urine Mucus 0 SEEN 02/23/20 05:30: WBC 8.3, RBC 2.39 L, Hgb 7.0 L, Hct 22.2 L, MCV 92.9, MCH 29.3, MCHC 31.5 L, RDW Std Deviation 44.3 H, RDW Coeff of Kusum 13.0, Plt Count 172, MPV 11.1, Immature Gran % (Auto) 0.400, Neut % (Auto) 81.4 H, Lymph % (Auto) 8.8 L, Quay % (Auto) 7.2, Eos % (Auto) 2.0, Baso % (Auto) 0.2, Absolute Neuts (auto) 6.8, Absolute Lymphs (auto) 0.73 L, Nucleated RBC % 0 02/23/20 05:30: Sodium 131 L, Potassium 4.3, Chloride 102, Carbon Dioxide 22.0, Anion Gap 7, BUN 61 H, Creatinine 3.56 H, Estim Creat Clear Calc 9.96, Est GFR (MDRD) Af Amer 16 L, Est GFR (MDRD) Non-Af 13 L, BUN/Creatinine Ratio 17.1, Glucose 298 H, Calcium 7.8 L 02/23/20 06:42: POC Glucose 322 H 02/23/20 08:21: Blood Type O POSITIVE, Antibody Screen NEGATIVE, Crossmatch See Detail 02/23/20 11:35: POC Glucose 313 H Diagnostic Data Chest X-Ray 02/22/20 13:49 IMPRESSION: Retrocardiac opacity in the left lung which is consistent with an infiltrate. Electronically Signed: Scotty Marroquin, at 14:38 EDT Tel , Service support , Brain CT 02/22/20 18:30 IMPRESSION: No acute intracranial abnormality. Stable mild chronic ischemic changes. Electronically Signed: Scotty Marroquin, at 19:49 EDT Tel , Service support , Chest CT 02/23/20 08:15 IMPRESSION: Left lower lobe pneumonia with moderate bilateral pleural effusions. Electronically Signed: Colton Lee MD at 9:45 EDT Tel , Service support , Current Medications Atorvastatin Calcium (Lipitor) 10 mg PO QHS [facility] Last Admin: 02/22/20 22:37 Dose: 10 mg Documented by: Cyclobenzaprine HCl (Flexeril) 10 mg PO TID PRN PRN PRN Reason: MUSCLE SPASM Ergocalciferol (Vitamin D) 50,000 unit PO QWEEK [facility] Last Admin: 02/23/20 09:28 Dose: 50,000 unit Documented by: Fluticasone Propionate (Flonase Nasal [place]) 2 spray NASAL DAILY [facility] Last Admin: 02/23/20 09:19 Dose: 2 spray Documented by: Gabapentin (Neurontin) 200 mg PO BIDCM [facility] Last Admin: 02/23/20 07:27 Dose: 200 mg Documented by: Sodium Chloride () 1,000 mls @ 150 mls/hr IV .Q6H40M [facility] Last Infusion: 02/23/20 11:30 Dose: 0 mls/hr Documented by: Ceftriaxone Sodium (Rocephin) 1 gm in 50 mls @ 100 mls/hr IV Q24 [facility] Last Infusion: 02/23/20 10:17 Dose: Infused Documented by: Insulin Glargine (Lantus ([facility])) 29 units SC QHS [facility] Last Admin: 02/22/20 22:38 Dose: 29 units Documented by: Insulin Human Lispro (Humalog Kwikpen ([facility])) 0 unit SC ACHS [facility]; Protocol Last Admin: 02/23/20 12:10 Dose: 6 units Documented by: Isosorbide Mononitrate (Imdur) 30 mg PO DAILY [facility] Last Admin: 02/23/20 09:21 Dose: 30 mg Documented by: Lactobacillus Acidophilus (Acidophilus) 1 tablet PO QHS [facility] Last Admin: 02/22/20 22:37 Dose: 1 tablet Documented by: Latanoprost (Xalatan Opthalmic) 1 drop EACH EYE QHS [facility] Last Admin: 02/22/20 22:38 Dose: 1 drop Documented by: Loratadine (Claritin) 10 mg PO DAILY [facility] Last Admin: 02/23/20 09:21 Dose: 10 mg Documented by: Metoprolol Tartrate (Lopressor (Beta Nataliia)) 25 mg PO BID [facility] Last Admin: 02/23/20 09:20 Dose: 25 mg Documented by: Morphine Sulfate () 2 mg IV Q3H PRN PRN PRN Reason: pain 6-10/10 Nitroglycerin (Nitrostat) 0.4 mg SUBLINGUAL Q5M PRN PRN Reason: CARDIAC/CHEST PAIN Last Admin: 02/23/20 02:50 Dose: 0.4 mg Documented by: Ondansetron HCl (Zofran) 4 mg IV Q8H PRN PRN PRN Reason: NAUSEA/VOMITING Sodium Chloride () 10 - 40 ml IV UD PRN PRN Reason: SALINE FLUSH Trazodone HCl (Desyrel) 25 mg PO QHS [facility] Last Admin: 02/22/20 22:37 Dose: 25 mg Documented by: STROKE Vital Signs/Narrative: Vital Signs Temp Pulse Resp BP Pulse Ox 02/23/20 12:10 98.2 F 63 18 117/58 L 95 02/23/20 11:40 98.0 F 67 18 119/53 L 95 02/23/20 11:25 97.9 F 70 18 120/60 95 02/23/20 09:20 67 140/66 H 02/23/20 09:16 98.4 F 67 18 140/66 H 97 Medical Necessity - Tobacco Use Smoking Status: Former smoker Assessment/Plan All Active Problems Intractable low back pain (Acute) Sciatica (Acute) UTI (urinary tract infection) (Acute) Dehydration (Acute) Acute renal failure (Acute) Anemia (Acute) Community acquired pneumonia (Acute) # Chest pain chest pain was left sided, aggravated by movement, and relieved by rest. initial troponin was negative. Chest x-ray showed retrocardiac opacity in the left lung consistent with an infiltrate. Admit to PCU. Cycle troponins. Sublingual nitroglycerin PRN. Hold off on aspirin on account of anemia. For stress test on Monday if troponins are negative. Unable to do a CTA to rule out PE on account of renal impairment. Per pulmonology, VQ scan will be difficult to interpret given infiltrate. And given her risk especially with anemia, pulmonology does not recommend anticoagulation at this time. #Left lower lobe pneumonia still has persistent left sided chest pain CXR Showed retrocardiac opacity now coughing up blood today CT of the chest done without contrast showed a left lower lobe pneumonia with moderate bilateral pleural effusions. Pulmonology consulted on account of hemoptysis. On ceftriaxone and azithromycin. Though it is listed that she is allergic to penicillins, patient was able to receive trazodone in the ED and so was continued. WBC has trended down to 8.3 today. # DEBBIE on CKD Creatinine today has trended down to 3.56. Check renal ultrasound tomorrow. FeURea is 26.7 suggesting prerenal disease. Continue gentle hydration with IV fluids. #Anemia: Hemoglobin is stable 7. She states she had a colonoscopy about 3 years ago with removal of polyps and she is due for another one now. Baseline hemoglobin is around 8-9. Iron panel showed iron of 13 with TIBC of 141, iron saturation of 9.2 and ferritin of 431 indicating anemia of chronic disease picture. General surgery evaluated patient and asked the patient follow-up on outpatient basis to discuss EGD and colonoscopy. #Heart failure: Not in exacerbation. Hold Zaroxolyn and Lasix on account of DEBBIE on CKD. #Type 2 diabetes mellitus: On Lantus 29 units nightly. Insulin sliding scale. Accu-Cheks AC at bedtime. #Hypertension: On amlodipine and metoprolol DVT prophylaxis: SCDs. No anticoagulation on account of anemia. CODE STATUS: Full code Patient counseled extensively about different types of CODE STATUS including full code, DNR CCA and DNR CCA. Patient elects to be full code. Total [id number] time 16 minutes. Inpatient E&M: 801[address] [facility] L3
[2020-02-23 16:25] LABS: Bedside Glucose 361 mg/dL (70-110)
[2020-02-23 18:34] LABS: Hematocrit 26.4 % (37-47); Hemoglobin 8.5 g/dL (12.0-15.0)
[2020-02-23] MEDS: Latanoprost 0.005% 1 Bottle 1 DRP EACH EYE (21:31)
[2020-02-23] MEDS: traZODone 50 MG Tablet 25 MG PO (21:32)
[2020-02-23] MEDS: Atorvastatin Calcium 10 MG Tablet PO (21:46)
[2020-02-23 21:50] LABS: Bedside Glucose 280 mg/dL (70-110)
[2020-02-24] VITALS (14 sets, daily range): BP systolic 123–160; BP diastolic 63–80; PULSE 59–77; RESP 15–18; TEMP 36.4–36.8; O2SAT 93–100
[2020-02-24] MEDS: 0.9% Normal Saline 1,000 ML 150 ML IV ×4 (00:55→19:35)
--- NOTE | 2020-02-24 04:44 | EKG12_ITS ---
Test Reason : CP Blood Pressure : / mmHG Vent. Rate : 062 BPM Atrial Rate : 062 BPM P-R Int : 134 ms QRS Dur : 084 ms QT Int : 432 ms P-R-T Axes : 041 052 034 degrees QTc Int : 438 ms Normal sinus rhythm Normal ECG When compared with ECG of 23-FEB-2020 01:04, MANUAL COMPARISON REQUIRED, DATA IS UNCONFIRMED Confirmed by HAYES MADSEN ([id number]), web editor JUAN NEELY ([id number]) on 02/27/2020 9:05:32 AM Referred By: TYRONE Confirmed By:HAYES MADSEN
[2020-02-24 06:04] LABS: Absolute Neutrophil Count 5.5 X10^3/uL (2.0-7.7); Basophil# 0.02 X10^3/uL; Basophil% 0.2 % (0-1); Eosinophil# 0.24 X10^3/uL; Hematocrit 25.8 % (37-47); Hemoglobin 8.4 g/dL (12.0-15.0); Lymphocyte % 21.1 % (19-41); Mean Corp Hgb Conc 32.6 g/dL (32-36); Mean Corpuscular Hgb 29.9 pg (27.0-32.0); Mean Corpuscular Volume 91.8 fL (81-99); Mean Platelet Vol. 11.5 fl (6.2-12.0); Monocyte# 0.59 X10^3/uL; Monocyte% 7.3 % (0-10); NRBC Flagged by Analyzer 0 % (0-5); Neutrophil # 5.47 X10^3/uL (2.7-7.7); Neutrophil % 67.9 % (47-70); Platelet Count 203 K/mm3 (150-450); RBC Distribution Width CV 13.2 % (11.6-14.6); RBC Distribution Width SD 44.2 fl (35.1-43.9); Red Blood Count 2.81 M/mm3 (4.2-5.4); White Blood Count 8.1 K/mm3 (4.4-11.0)
[2020-02-24 06:29] LABS: Anion Gap 6 (5-15); BUN 63 mg/dL (7-18); BUN/Creat Ratio 19.4 RATIO (10-20); Calcium,Total 8.1 mg/dL (8.5-10.1); Chloride 108 mmol/L (98-107); Creatinine, Serum 3.25 mg/dL (0.55-1.02); EST Glomerular Filtration Rate 15 mL/min (>60); Est Glom Filt Rate - Afr Amer 18 mL/min (>60); Estimated Creatinine Clearance 10.91 ml/min; Glucose 144 mg/dL (74-106); Potassium 4.4 mmol/L (3.5-5.1); Sodium Level 135 mmol/L (136-145)
--- NOTE | 2020-02-24 06:53 | PCM.PN.PUL ---
Patient Problems: Active and Suspected Problems Dehydration (Acute) Acute renal failure (Acute) Anemia (Acute) Community acquired pneumonia (Acute) Subjective: The patient was seen and examined at the bedside this morning. Events from the last 24 hours have been reviewed. The patient is currently afebrile, hemodynamically stable and maintaining appropriate oxygen saturations on room air. The patient reported that she coughed once overnight and had a small amount of blood noted in her sputum. However, this has improved since she initially was admitted to the hospital. Objective: The patient's most recent lab work, culture data and imaging studies have all been personally reviewed. CT chest revealed left lower lobe airspace opacity and bilateral pleural effusions. Surface echocardiogram dated June 2019 revealed stage II diastolic dysfunction with an ejection fraction of 60%. Pulmonary artery systolic pressure was estimated to be 40 mmHg. - Physical Exam Vitals/I&O's: Vital Signs Temp Pulse Resp BP Pulse Ox 97.6 F L 61 16 149/63 H 100 02/24/20 04:40 02/24/20 04:40 02/24/20 04:40 02/24/20 04:40 02/24/20 04:40 Oxygen Flow Rate (L/min) 2 Oxygen Delivery Method Nasal Cannula Weight: 172 lb 2.896 oz Body Mass Index (BMI) 33.6 Finger Stick Blood Glucose 88 Intake and Output for Last 24 Hours 02/22/20 02/23/20 02/24/20 23:59 23:59 23:59 Intake Total 1315 / 1535 4595.0 / 4595.0 1000 / 1000 Output Total 300 / 300 200 / 200 Balance 1315 / 1535 4295.0 / 4295.0 800 / 800 General: Alert, Cooperative, No apparent distress, - - Sitting in bedside recliner. HEENT: Atraumatic, Normocephalic Oral: No Gingival or Mucosal Lesions/ Ulcerations, - - Poor dentition Neck: Supple, No Nodes, Trachea Midline Lungs: No rhonchi, No wheeze, No rales, Diminished Cardiovascular: Regular rate, Regular Rhythm Abdomen: Bowel Sounds Present, Soft, Non Tender, Obese Extremities: No clubbing, No cyanosis Skin: No breakdown Musculoskeletal: No Tenderness to Palpation of Joints or Extremities Lymphatic: No Cervical, Supraclavicular, or Inguinal Adenopathy Neurological: Cranial nerves II-XII grossly intact, Neuro grossly intact Psych/Mental Status: Normal Affect, Appropriate Labs (Last 48 Hours) 02/22/20 02/22/20 02/22/20 14:00 14:00 16:17 WBC 11.4 H RBC 2.41 L Hgb 7.0 L Hct 21.9 L MCV 90.9 MCH 29.0 MCHC 32.0 RDW Std Deviation 43.2 RDW Coeff of Kusum 13.0 Plt Count 209 MPV 10.8 Immature Gran % (Auto) 0.400 Neut % (Auto) 83.5 H Lymph % (Auto) 7.2 L Cherry % (Auto) 7.5 Eos % (Auto) 1.1 Baso % (Auto) 0.3 Absolute Neuts (auto) 9.5 H Absolute Lymphs (auto) 0.82 L Nucleated RBC % 0 Sodium 130 L Potassium 4.0 Chloride 98 Carbon Dioxide 25.0 Anion Gap 7 BUN 61 H Creatinine 3.61 H Estim Creat Clear Calc 9.82 Est GFR (MDRD) Af Amer 16 L Est GFR (MDRD) Non-Af 13 L BUN/Creatinine Ratio 16.9 Glucose 374 H Calcium 8.2 L Iron TIBC Iron Saturation Ferritin Total Bilirubin 0.40 Direct Bilirubin 0.17 AST 201 H ALT 150 H Alkaline Phosphatase 52 Troponin I 0.040 Total Protein 6.2 L Albumin 1.8 L Globulin 4.4 H Lipase 226 Urine Color Urine Clarity Urine pH Ur Specific [place] Urine Protein Urine Glucose (UA) Urine Ketones Urine Occult Blood Urine Nitrite Urine Bilirubin Urine Urobilinogen Ur Leukocyte Esterase Urine RBC Urine WBC Ur Squamous Epith Cells Amorphous Sediment Urine Bacteria Hyaline Casts Urine Mucus Urine Creatinine Urine Urea Nitrogen Urine Opiates Screen Urine Methadone Screen Ur Barbiturates Screen Ur Phencyclidine Scrn Ur Amphetamines Screen U Methamphetamin-MDMA U Benzodiazepines Scrn Urine Cocaine Screen U Cannabinoids Screen Ur Drug Screen Comment NARINDER Screen c-ANCA Antibody p-ANCA Antibody PAMELLA-1 Antibody SS-A/Ro IgG Antibody SS-B/La IgG Antibody Sm (Womack) Antibody BOILER BLOWER Antibody Scl-70 Scleroderma Ab Double Strand DNA Ab Centromere B Antibody COVID-19 (HENRY) Negative POC Glucose Blood Type Antibody Screen Crossmatch 02/22/20 02/22/20 02/22/20 18:25 19:45 19:45 WBC RBC Hgb Hct MCV MCH MCHC RDW Std Deviation RDW Coeff of Kusum Plt Count MPV Immature Gran % (Auto) Neut % (Auto) Lymph % (Auto) Cherry % (Auto) Eos % (Auto) Baso % (Auto) Absolute Neuts (auto) Absolute Lymphs (auto) Nucleated RBC % Sodium Potassium Chloride Carbon Dioxide Anion Gap BUN Creatinine Estim Creat Clear Calc Est GFR (MDRD) Af Amer Est GFR (MDRD) Non-Af BUN/Creatinine Ratio Glucose Calcium Iron 13 L TIBC 141 L Iron Saturation 9.2 L Ferritin 431 H Total Bilirubin Direct Bilirubin AST ALT Alkaline Phosphatase Troponin I 0.038 Total Protein Albumin Globulin Lipase Urine Color Urine Clarity Urine pH Ur Specific [place] Urine Protein Urine Glucose (UA) Urine Ketones Urine Occult Blood Urine Nitrite Urine Bilirubin Urine Urobilinogen Ur Leukocyte Esterase Urine RBC Urine WBC Ur Squamous Epith Cells Amorphous Sediment Urine Bacteria Hyaline Casts Urine Mucus Urine Creatinine Urine Urea Nitrogen Urine Opiates Screen Urine Methadone Screen Ur Barbiturates Screen Ur Phencyclidine Scrn Ur Amphetamines Screen U Methamphetamin-MDMA U Benzodiazepines Scrn Urine Cocaine Screen U Cannabinoids Screen Ur Drug Screen Comment NARINDER Screen c-ANCA Antibody p-ANCA Antibody PAMELLA-1 Antibody SS-A/Ro IgG Antibody SS-B/La IgG Antibody Sm (Womack) Antibody BOILER BLOWER Antibody Scl-70 Scleroderma Ab Double Strand DNA Ab Centromere B Antibody COVID-19 (HENRY) POC Glucose 436 H Blood Type Antibody Screen Crossmatch 02/22/20 02/22/20 02/23/20 21:51 22:34 01:40 WBC RBC Hgb Hct MCV MCH MCHC RDW Std Deviation RDW Coeff of Kusum Plt Count MPV Immature Gran % (Auto) Neut % (Auto) Lymph % (Auto) Cherry % (Auto) Eos % (Auto) Baso % (Auto) Absolute Neuts (auto) Absolute Lymphs (auto) Nucleated RBC % Sodium Potassium Chloride Carbon Dioxide Anion Gap BUN Creatinine Estim Creat Clear Calc Est GFR (MDRD) Af Amer Est GFR (MDRD) Non-Af BUN/Creatinine Ratio Glucose Calcium Iron TIBC Iron Saturation Ferritin Total Bilirubin Direct Bilirubin AST ALT Alkaline Phosphatase Troponin I 0.024 Total Protein Albumin Globulin Lipase Urine Color Urine Clarity Urine pH Ur Specific [place] Urine Protein Urine Glucose (UA) Urine Ketones Urine Occult Blood Urine Nitrite Urine Bilirubin Urine Urobilinogen Ur Leukocyte Esterase Urine RBC Urine WBC Ur Squamous Epith Cells Amorphous Sediment Urine Bacteria Hyaline Casts Urine Mucus Urine Creatinine Urine Urea Nitrogen Urine Opiates Screen POSITIVE H Urine Methadone Screen NEGATIVE Ur Barbiturates Screen NEGATIVE Ur Phencyclidine Scrn NEGATIVE Ur Amphetamines Screen NEGATIVE U Methamphetamin-MDMA NEGATIVE U Benzodiazepines Scrn NEGATIVE Urine Cocaine Screen NEGATIVE U Cannabinoids Screen NEGATIVE Ur Drug Screen Comment NARINDER Screen c-ANCA Antibody p-ANCA Antibody PAMELLA-1 Antibody SS-A/Ro IgG Antibody SS-B/La IgG Antibody Sm (Womack) Antibody BOILER BLOWER Antibody Scl-70 Scleroderma Ab Double Strand DNA Ab Centromere B Antibody COVID-19 (HENRY) POC Glucose 415 H Blood Type Antibody Screen Crossmatch 02/23/20 02/23/20 02/23/20 01:40 01:40 01:40 WBC RBC Hgb Hct MCV MCH MCHC RDW Std Deviation RDW Coeff of Kusum Plt Count MPV Immature Gran % (Auto) Neut % (Auto) Lymph % (Auto) Cherry % (Auto) Eos % (Auto) Baso % (Auto) Absolute Neuts (auto) Absolute Lymphs (auto) Nucleated RBC % Sodium Potassium Chloride Carbon Dioxide Anion Gap BUN Creatinine Estim Creat Clear Calc Est GFR (MDRD) Af Amer Est GFR (MDRD) Non-Af BUN/Creatinine Ratio Glucose Calcium Iron TIBC Iron Saturation Ferritin Total Bilirubin Direct Bilirubin AST ALT Alkaline Phosphatase Troponin I Total Protein Albumin Globulin Lipase Urine Color Yellow Urine Clarity Sl. Cloudy Urine pH 5.0 Ur Specific [place] 1.015 Urine Protein 500 H Urine Glucose (UA) 1000 H Urine Ketones Negative Urine Occult Blood 25 H Urine Nitrite Negative Urine Bilirubin Negative Urine Urobilinogen Normal Ur Leukocyte Esterase Negative Urine RBC 0-5 SEEN Urine WBC 0 SEEN Ur Squamous Epith Cells 5-10 SEEN Amorphous Sediment 2+ Urine Bacteria 0 SEEN Hyaline Casts 5-10 SEEN Urine Mucus 0 SEEN Urine Creatinine 86.20 Urine Urea Nitrogen 394 Urine Opiates Screen Urine Methadone Screen Ur Barbiturates Screen Ur Phencyclidine Scrn Ur Amphetamines Screen U Methamphetamin-MDMA U Benzodiazepines Scrn Urine Cocaine Screen U Cannabinoids Screen Ur Drug Screen Comment NARINDER Screen c-ANCA Antibody p-ANCA Antibody PAMELLA-1 Antibody SS-A/Ro IgG Antibody SS-B/La IgG Antibody Sm (Womack) Antibody BOILER BLOWER Antibody Scl-70 Scleroderma Ab Double Strand DNA Ab Centromere B Antibody COVID-19 ([facility]ENRY) POC Glucose Blood Type Antibody Screen Crossmatch 02/23/20 02/23/2002/22/20 05:30 05:30 06:42 WBC 8.3 RBC 2.39 L Hgb 7.0 L Hct 22.2 L MCV 92.9 MCH 29.3 MCHC 31.5 L RDW Std Deviation 44.3 H RDW Coeff of Kusum 13.0 Plt Count 172 MPV 11.1 Immature Gran % (Auto) 0.400 Neut % (Auto) 81.4 H Lymph % (Auto) 8.8 L Cherry % (Auto) 7.2 Eos % (Auto) 2.0 Baso % (Auto) 0.2 Absolute Neuts (auto) 6.8 Absolute Lymphs (auto) 0.73 L Nucleated RBC % 0 Sodium 131 L Potassium 4.3 Chloride 102 Carbon Dioxide 22.0 Anion Gap 7 BUN 61 H Creatinine 3.56 H Estim Creat Clear Calc 9.96 Est GFR (MDRD) Af Amer 16 L Est GFR (MDRD) Non-Af 13 L BUN/Creatinine Ratio 17.1 Glucose 298 H Calcium 7.8 L Iron TIBC Iron Saturation Ferritin Total Bilirubin Direct Bilirubin AST ALT Alkaline Phosphatase Troponin I Total Protein Albumin Globulin Lipase Urine Color Urine Clarity Urine pH Ur Specific [place] Urine Protein Urine Glucose (UA) Urine Ketones Urine Occult Blood Urine Nitrite Urine Bilirubin Urine Urobilinogen Ur Leukocyte Esterase Urine RBC Urine WBC Ur Squamous Epith Cells Amorphous Sediment Urine Bacteria Hyaline Casts Urine Mucus Urine Creatinine Urine Urea Nitrogen Urine Opiates Screen Urine Methadone Screen Ur Barbiturates Screen Ur Phencyclidine Scrn Ur Amphetamines Screen U Methamphetamin-MDMA U Benzodiazepines Scrn Urine Cocaine Screen U Cannabinoids Screen Ur Drug Screen Comment NARINDER Screen c-ANCA Antibody p-ANCA Antibody PAMELLA-1 Antibody SS-A/Ro IgG Antibody SS-B/La IgG Antibody Sm (Womack) Antibody BOILER BLOWER Antibody Scl-70 Scleroderma Ab Double Strand DNA Ab Centromere B Antibody COVID-19 ([facility]ENRY) POC Glucose 322 H Blood Type Antibody Screen Crossmatch 02/23/20 02/23/20 02/23/20 08:21 11:35 16:16 WBC RBC Hgb Hct MCV MCH MCHC RDW Std Deviation RDW Coeff of Kusum Plt Count MPV Immature Gran % (Auto) Neut % (Auto) Lymph % (Auto) Cherry % (Auto) Eos % (Auto) Baso % (Auto) Absolute Neuts (auto) Absolute Lymphs (auto) Nucleated RBC % Sodium Potassium Chloride Carbon Dioxide Anion Gap BUN Creatinine Estim Creat Clear Calc Est GFR (MDRD) Af Amer Est GFR (MDRD) Non-Af BUN/Creatinine Ratio Glucose Calcium Iron TIBC Iron Saturation Ferritin Total Bilirubin Direct Bilirubin AST ALT Alkaline Phosphatase Troponin I Total Protein Albumin Globulin Lipase Urine Color Urine Clarity Urine pH Ur Specific [place] Urine Protein Urine Glucose (UA) Urine Ketones Urine Occult Blood Urine Nitrite Urine Bilirubin Urine Urobilinogen Ur Leukocyte Esterase Urine RBC Urine WBC Ur Squamous Epith Cells Amorphous Sediment Urine Bacteria Hyaline Casts Urine Mucus Urine Creatinine Urine Urea Nitrogen Urine Opiates Screen Urine Methadone Screen Ur Barbiturates Screen Ur Phencyclidine Scrn Ur Amphetamines Screen U Methamphetamin-MDMA U Benzodiazepines Scrn Urine Cocaine Screen U Cannabinoids Screen Ur Drug Screen Comment NARINDER Screen c-ANCA Antibody p-ANCA Antibody PAMELLA-1 Antibody SS-A/Ro IgG Antibody SS-B/La IgG Antibody Sm (Womack) Antibody BOILER BLOWER Antibody Scl-70 Scleroderma Ab Double Strand DNA Ab Centromere B Antibody COVID-19 (HENRY) POC Glucose 313 H 361 H Blood Type O POSITIVE Antibody Screen NEGATIVE Crossmatch See Detail 02/23/20 02/23/20 02/24/20 18:10 21:31 05:35 WBC RBC Hgb 8.5 L Hct 26.4 L MCV MCH MCHC RDW Std Deviation RDW Coeff of Kusum Plt Count MPV Immature Gran % (Auto) Neut % (Auto) Lymph % (Auto) Cherry % (Auto) Eos % (Auto) Baso % (Auto) Absolute Neuts (auto) Absolute Lymphs (auto) Nucleated RBC % Sodium Potassium Chloride Carbon Dioxide Anion Gap BUN Creatinine Estim Creat Clear Calc Est GFR (MDRD) Af Amer Est GFR (MDRD) Non-Af BUN/Creatinine Ratio Glucose Calcium Iron TIBC Iron Saturation Ferritin Total Bilirubin Direct Bilirubin AST ALT Alkaline Phosphatase Troponin I Total Protein Albumin Globulin Lipase Urine Color Urine Clarity Urine pH Ur Specific [place] Urine Protein Urine Glucose (UA) Urine Ketones Urine Occult Blood Urine Nitrite Urine Bilirubin Urine Urobilinogen Ur Leukocyte Esterase Urine RBC Urine WBC Ur Squamous Epith Cells Amorphous Sediment Urine Bacteria Hyaline Casts Urine Mucus Urine Creatinine Urine Urea Nitrogen Urine Opiates Screen Urine Methadone Screen Ur Barbiturates Screen Ur Phencyclidine Scrn Ur Amphetamines Screen U Methamphetamin-MDMA U Benzodiazepines Scrn Urine Cocaine Screen U Cannabinoids Screen Ur Drug Screen Comment NARINDER Screen Pending c-ANCA Antibody p-ANCA Antibody PAMELLA-1 Antibody Pending SS-A/Ro IgG Antibody Pending SS-B/La IgG Antibody Pending Sm (Womack) Antibody Pending BOILER BLOWER Antibody Pending Scl-70 Scleroderma Ab Pending Double Strand DNA Ab Pending Centromere B Antibody Pending COVID-19 ([facility]ENRY) POC Glucose 280 H Blood Type Antibody Screen Crossmatch 02/24/20 02/24/20 02/24/20 05:35 05:35 05:35 WBC 8.1 RBC 2.81 L Hgb 8.4 L Hct 25.8 L MCV 91.8 MCH 29.9 MCHC 32.6 RDW Std Deviation 44.2 H RDW Coeff of Kusum 13.2 Plt Count 203 MPV 11.5 Immature Gran % (Auto) 0.500 Neut % (Auto) 67.9 Lymph % (Auto) 21.1 Cherry % (Auto) 7.3 Eos % (Auto) 3.0 Baso % (Auto) 0.2 Absolute Neuts (auto) 5.5 Absolute Lymphs (auto) 1.70 Nucleated RBC % 0 Sodium 135 L Potassium 4.4 Chloride 108 H Carbon Dioxide 21.0 Anion Gap 6 BUN 63 H Creatinine 3.25 H Estim Creat Clear Calc 10.91 Est GFR (MDRD) Af Amer 18 L Est GFR (MDRD) Non-Af 15 L BUN/Creatinine Ratio 19.4 Glucose 144 H Calcium 8.1 L Iron TIBC Iron Saturation Ferritin Total Bilirubin Direct Bilirubin AST ALT Alkaline Phosphatase Troponin I Total Protein Albumin Globulin Lipase Urine Color Urine Clarity Urine pH Ur Specific [place] Urine Protein Urine Glucose (UA) Urine Ketones Urine Occult Blood Urine Nitrite Urine Bilirubin Urine Urobilinogen Ur Leukocyte Esterase Urine RBC Urine WBC Ur Squamous Epith Cells Amorphous Sediment Urine Bacteria Hyaline Casts Urine Mucus Urine Creatinine Urine Urea Nitrogen Urine Opiates Screen Urine Methadone Screen Ur Barbiturates Screen Ur Phencyclidine Scrn Ur Amphetamines Screen U Methamphetamin-MDMA U Benzodiazepines Scrn Urine Cocaine Screen U Cannabinoids Screen Ur Drug Screen Comment NARINDER Screen c-ANCA Antibody Pending p-ANCA Antibody Pending PAMELLA-1 Antibody SS-A/Ro IgG Antibody SS-B/La IgG Antibody Sm (Womack) Antibody BOILER BLOWER Antibody Scl-70 Scleroderma Ab Double Strand DNA Ab Centromere B Antibody COVID-19 ([facility]NR[facility]) POC Glucose Blood Type Antibody Screen Crossmatch Microbiology 02/23/20 01:40 Urine, Clean Catch Legionella Antigen - Final 02/23/20 01:40 Urine, Clean Catch Streptococcus pneumoniae Antigen (M - Final 02/22/20 14:40 Stool Stool Occult Blood (ANTONIO) - Final Clinical Impression(s) from Imaging Studies Chest X-Ray 02/22/20 13:49 IMPRESSION: Retrocardiac opacity in the left lung which is consistent with an infiltrate. Electronically Signed: Scotty Marroquin, at 14:38 EDT Tel , Service support , Brain CT 02/22/20 18:30 IMPRESSION: No acute intracranial abnormality. Stable mild chronic ischemic changes. Electronically Signed: Scotty Marroquin, at 19:49 EDT Tel , Service support , Chest CT 02/23/20 08:15 IMPRESSION: Left lower lobe pneumonia with moderate bilateral pleural effusions. Electronically Signed: Colton Lee MD at 9:45 EDT Tel , Service support , Current Medications Atorvastatin Calcium (Lipitor) 10 mg PO QHS [facility] Last Admin: 02/23/20 21:46 Dose: 10 mg Documented by: Cyclobenzaprine HCl (Flexeril) 10 mg PO TID PRN PRN PRN Reason: MUSCLE SPASM Ergocalciferol (Vitamin D) 50,000 unit PO QWEEK [facility] Last Admin: 02/23/20 09:28 Dose: 50,000 unit Documented by: Fluticasone Propionate (Flonase Nasal [place]) 2 spray NASAL DAILY [facility] Last Admin: 02/23/20 09:19 Dose: 2 spray Documented by: Gabapentin (Neurontin) 200 mg PO BIDCM [facility] Last Admin: 02/23/20 21:45 Dose: 200 mg Documented by: Sodium Chloride () 1,000 mls @ 150 mls/hr IV .Q6H40M [facility] Last Admin: 02/24/20 00:55 Dose: 150 mls/hr Documented by: Ceftriaxone Sodium (Rocephin) 1 gm in 50 mls @ 100 mls/hr IV Q24 [facility] Last Infusion: 02/23/20 10:17 Dose: Infused Documented by: Azithromycin 500 mg/ Dextrose 255 mls @ 250 mls/hr IV Q24 [facility] Last Infusion: 02/23/20 16:00 Dose: Infused Documented by: Insulin Glargine (Lantus ([facility])) 29 units SC QHS [facility] Last Admin: 02/23/20 21:33 Dose: 29 units Documented by: Insulin Human Lispro (Humalog Kwikpen ([facility])) 0 unit SC ACHS [facility]; Protocol Last Admin: 02/24/20 06:48 Dose: Not Given Documented by: Isosorbide Mononitrate (Imdur) 30 mg PO DAILY [facility] Last Admin: 02/23/20 09:21 Dose: 30 mg Documented by: Lactobacillus Acidophilus (Acidophilus) 1 tablet PO QHS [facility] Last Admin: 02/23/20 21:32 Dose: 1 tablet Documented by: Latanoprost (Xalatan Opthalmic) 1 drop EACH EYE QHS [facility] Last Admin: 02/23/20 21:31 Dose: 1 drop Documented by: Loratadine (Claritin) 10 mg PO DAILY [facility] Last Admin: 02/23/20 09:21 Dose: 10 mg Documented by: Metoprolol Tartrate (Lopressor (Beta Nataliia)) 25 mg PO BID [facility] Last Admin: 02/23/20 21:31 Dose: 25 mg Documented by: Morphine Sulfate () 2 mg IV Q3H PRN PRN PRN Reason: pain 6-10/10 Nitroglycerin (Nitrostat) 0.4 mg SUBLINGUAL Q5M PRN PRN Reason: CARDIAC/CHEST PAIN Last Admin: 02/23/20 02:50 Dose: 0.4 mg Documented by: Ondansetron HCl (Zofran) 4 mg IV Q8H PRN PRN PRN Reason: NAUSEA/VOMITING Sodium Chloride () 10 - 40 ml IV UD PRN PRN Reason: SALINE FLUSH Trazodone HCl (Desyrel) 25 mg PO QHS [facility] Last Admin: 02/23/20 21:32 Dose: 25 mg Documented by: Medical Necessity - Tobacco Use Smoking Status: Former smoker Assessment/Plan All Active Problems Intractable low back pain (Acute) Sciatica (Acute) UTI (urinary tract infection) (Acute) Dehydration (Acute) Acute renal failure (Acute) Anemia (Acute) Community acquired pneumonia (Acute) RECOMMENDATIONS: 1. Continue antimicrobials, with plans to complete a 7-day treatment course. 2. Perform walking oximetry study prior to consideration for discharge home. 3. Encourage incentive spirometer use and mobilize patient as tolerated. 4. Monitor H&H daily, with plans to transfuse if hemoglobin drops below 7 g/dL. 5. Outpatient pulmonary follow-up within 2 weeks of discharge. IMPRESSIONS: 1. Acute hypoxemic respiratory insufficiency/hemoptysis, likely secondary to community-acquired pneumonia The patient's chest imaging did reveal evidence of a left lower lobe airspace opacity. Her hemoptysis is likely the consequence of underlying infection, and is improving with antimicrobial therapy. Recommend completing a full 7-day treatment course of antibiotics. She has been weaned from supplemental oxygen to room air this morning. She feels well from a respiratory perspective. Vasculitis panel is currently pending. Given the patient's extensive smoking history, recommend outpatient PFTs for formal evaluation of COPD upon discharge from the hospital. 2. Acute on chronic kidney disease Potentially prerenal in etiology. Renal ultrasound is pending. However, creatinine is improving with gentle IV fluid resuscitation. Continue to monitor urine output. No current indication for renal replacement therapy. 3. Anemia Stable at this time. Plan to monitor H&H daily. Transfuse if hemoglobin drops below 7 g/dL. 4. History of CHF/type 2 diabetes mellitus/hypertension Complicates care, management, recovery and prognosis. Continue home medications as indicated. This note was generated with Voyandoation software. It may contain incorrect words, spelling, and punctuation that were not noted in checking the note before signing.
[2020-02-24 07:06] LABS: Bedside Glucose 131 mg/dL (70-110)
[2020-02-24] MEDS: Fluticasone 0.05% 1 SPRAY NASAL.SRY 2 SPRAY NASAL (08:14)
[2020-02-24] MEDS: Loratadine 10 MG Tablet PO (08:15)
[2020-02-24] MEDS: Gabapentin 100 MG Capsule 200 MG PO ×2 (08:17→18:10)
[2020-02-24] MEDS: Ceftriaxone 1 GM/50 ML BAG IV (10:13)
[2020-02-24] MEDS: Metoprolol Tartrate 25 MG Tablet PO ×2 (10:13→21:18)
[2020-02-24] MEDS: Isosorbide Mononitrate 30 MG Tablet PO (10:13)
[2020-02-24] MEDS: Insulin Lispro 100 UNIT/ML INSULN.PEN SC ×3 (10:23→21:02)
[2020-02-24 10:31] LABS: Bedside Glucose 199 mg/dL (70-110)
--- NOTE | 2020-02-24 11:42 | CASEMGMT ---
ERICA TREVIÑO assessment: Face to Face with patient for initial transition planning/care coordination assessment. ERICA TREVIÑO introduced self and role at [facility], pt voices understanding and consents to assessment at this time. Pt is sitting up in chair in no distress at this time. Pt is A/Ox4 at this time and answers all questions appropriately at this time. Care providers, pharmacy, and demographics verified/updated at this time. Presentation: Staggering, difficulty with balance/weakness for about a week. CP started today. Admitting dx: Intractable back pain, hip pain PCP: [facility] Specialists: Pt states no current specialists. Preferred Pharmacy: [facility] Insurance: [facility] A/B, [facility] Prescription Benefit: Yes Living Will/HPOA: Pt states does not have LW/HPOA and declines AD info at this time. LNOK: Maurice Womack, Living Arrangements: Pt states lives with in home with 3 steps in and states no concerns at home at this time. Pt states is independent with ADL's. Transportation: Pt states drives self and states no transportation concerns at this time. DME/HHC: Pt states has a cane and rollator and states no further DME needed at this time. Pt states has had HHC in the past but has not been to SNF. Pt states no concerns with going home at time of discharge. Pt states is retired. Pt states does not smoke cigarettes or drink ETOH. Pt states no further concerns/needs at this time. CM to follow for any further discharge planning/needs. Advised pt to ask for CM if any further questions/concerns/needs arise, voices understanding. Pt Goal: Home Plan: [place] ERICA TREVIÑO
--- NOTE | 2020-02-24 12:34 | US_ITS ---
STUDY: RENAL ULTRASOUND - COMPLETE REASON FOR EXAM: Female, 74 years old. DEBBIE -- CKD TECHNIQUE: Ultrasound evaluation of the kidneys was performed with real-time and static priest-scale imaging. COMPARISON: None. FINDINGS: RIGHT KIDNEY: Normal location of the right kidney, which is normal in size. The right kidney measures 10.2 cm. There is a normal cortex of the right kidney. The renal cortex measures 1.5 cm. There is no right renal mass or cyst. There are no right renal calculi. There is no right hydronephrosis. DISTAL RIGHT URETER: There is non-visualization of the distal right ureter. There is no demonstrated right ureterovesical junction calculus. There is a visualized right ureteral jet. LEFT KIDNEY: Normal location of the left kidney, which is normal in size. The left kidney measures 10.8 cm. There is a normal cortex of the left kidney. The renal cortex measures 1.0 cm. There is no left renal mass or cyst. There are no left renal calculi. There is no left hydronephrosis. DISTAL LEFT URETER: There is non-visualization of the distal left ureter. There is no demonstrated left ureterovesical junction calculus. There is a visualized left ureteral jet. BLADDER: The distended urinary bladder has a volume of 89 ml. The empty urinary bladder has a volume of ml. There is a normal wall thickness of the distended urinary bladder. There is no demonstrated mass within the urinary bladder. There are no demonstrated bladder calculi. US/Kidney and Bladder IMPRESSION: Normal ultrasound of the kidneys and urinary bladder. Electronically Signed: Colton Lee MD at 14:50 EDT Tel , Service support ,
--- NOTE | 2020-02-24 12:35 | PCM.PN.HOSP ---
Patient Problems: Active and Suspected Problems Dehydration (Acute) Acute renal failure (Acute) Anemia (Acute) Community acquired pneumonia (Acute) Subjective: Patient seen and examined. She complained of chest pain today which was left-sided. Upon being told about a stress test, patient adamantly refused and says she wanted to be discharged home because she was tired of being treated like a [id number] lady. Despite counseling about her DEBBIE on CKD was back to baseline, as well as had been treated for pneumonia and requiring a stress test for that chest pain, patient adamantly refused to stay and would barely answer any questions. When told that hospitalist was not comfortable charging her, patient stated that she would leave AGAINST MEDICAL ADVICE. She has remained hemodynamically stable. Hemoglobin today is 8.4 and WBC is 8.1. Subsequently, patient's daughter and came by and requested discussion with the hospitalist. After patient's current medical condition was explained to and daughter, patient was agreeable to stay and was apologetic for how she had behaved. She had eaten this morning so stress test will be done tomorrow. Vitals/I&O's: Vital Signs Temp Pulse Resp BP Pulse Ox 98.1 F 59 L 16 146/67 H 93 02/24/20 10:07 02/24/20 12:14 02/24/20 10:07 02/24/20 10:13 02/24/20 10:07 Oxygen Flow Rate (L/min) 2 Oxygen Delivery Method Room Air Weight: 172 lb 2.896 oz Body Mass Index (BMI) 33.6 Finger Stick Blood Glucose 88 Intake and Output for Last 24 Hours 02/22/20 02/23/20 02/24/20 23:59 23:59 23:59 Intake Total 1315 / 1535 4595.0 / 4595.0 2305 / 2305 Output Total 300 / 300 200 / 200 Balance 1315 / 1535 4295.0 / 4295.0 2105 / 2105 General: Alert, Oriented x3, Cooperative, No apparent distress, HEENT: Atraumatic, PERRLA, EOMI, Normocephalic Oral: Dry Mucosa Neck: Supple, No JVD, Negative Carotid Bruits Lungs: - - decreased breath sounds in left mid and lower lung cherry, with few crackles. No wheezes. on room air. Cardiovascular: Regular rate, No murmurs Abdomen: Bowel Sounds Present, Soft, Non Tender, Non-Distended, No Hepato-splenomegaly Extremities: No clubbing, No cyanosis, No edema, Capillary Refill Less than 3 Seconds Skin: No rashes, No breakdown Musculoskeletal: No Tenderness to Palpation of Joints or Extremities Lymphatic: No Cervical, Supraclavicular, or Inguinal Adenopathy Neurological: Cranial nerves II-XII grossly intact, Neuro grossly intact, Motor Exam 5/5 strength throughout Psych/Mental Status: Normal Affect, Appropriate, Alert and oriented to time, place, person, mood and affect Microbiology Past 72 Hours 02/23/20 01:40 Urine, Clean Catch Urine Culture - Preliminary Culture exhibits no growth. 02/23/20 01:40 Urine, Clean Catch Legionella Antigen - Final 02/23/20 01:40 Urine, Clean Catch Streptococcus pneumoniae Antigen (M - Final 02/22/20 14:40 Stool Stool Occult Blood (ANTONIO) - Final Laboratory Results 02/23/20 08:21: Crossmatch See Detail 02/23/20 16:16: POC Glucose 361 H 02/23/20 18:10: Hgb 8.5 L, Hct 26.4 L 02/23/20 21:31: POC Glucose 280 H 02/24/20 05:35: NARINDER Screen Pending, PAMELLA-1 Antibody Pending, SS-A/Ro IgG Antibody Pending, SS-B/La IgG Antibody Pending, Sm ([place]omack) Antibody Pending, CASER IN Antibody Pending, Scl-70 Scleroderma Ab Pending, Double Strand DNA Ab Pending, Centromere B Antibody Pending 02/24/20 05:35: c-ANCA Antibody Pending, p-ANCA Antibody Pending 02/24/20 05:35: WBC 8.1, RBC 2.81 L, Hgb 8.4 L, Hct 25.8 L, MCV 91.8, MCH 29.9, MCHC 32.6, RDW Std Deviation 44.2 H, RDW Coeff of Kusum 13.2, Plt Count 203, MPV 11.5, Immature Gran % (Auto) 0.500, Neut % (Auto) 67.9, Lymph % (Auto) 21.1, [place] % (Auto) 7.3, Eos % (Auto) 3.0, Baso % (Auto) 0.2, Absolute Neuts (auto) 5.5, Absolute Lymphs (auto) 1.70, Nucleated RBC % 0 02/24/20 05:35: Sodium 135 L, Potassium 4.4, Chloride 108 H, Carbon Dioxide 21.0, Anion Gap 6, BUN 63 H, Creatinine 3.25 H, Estim Creat Clear Calc 10.91, Est GFR (MDRD) Af Amer 18 L, Est GFR (MDRD) Non-Af 15 L, BUN/Creatinine Ratio 19.4, Glucose 144 H, Calcium 8.1 L 02/24/20 06:47: POC Glucose 131 H 02/24/20 10:20: POC Glucose 199 H Diagnostic Data Chest X-Ray 02/22/20 13:49 IMPRESSION: Retrocardiac opacity in the left lung which is consistent with an infiltrate. Electronically Signed: Scotty Marroquin at 14:38 EDT Tel , Service support , Brain CT 02/22/20 18:30 IMPRESSION: No acute intracranial abnormality. Stable mild chronic ischemic changes. Electronically Signed: Scotty Marroquin, at 19:49 EDT Tel , Service support , Chest CT 02/23/20 08:15 IMPRESSION: Left lower lobe pneumonia with moderate bilateral pleural effusions. Electronically Signed: Colton Lee MD at 9:45 EDT Tel , Service support , Current Medications Atorvastatin Calcium (Lipitor) 10 mg PO QHS [facility] Last Admin: 02/23/20 21:46 Dose: 10 mg Documented by: Cyclobenzaprine HCl (Flexeril) 10 mg PO TID PRN PRN PRN Reason: MUSCLE SPASM Ergocalciferol (Vitamin D) 50,000 unit PO QWEEK [facility] Last Admin: 02/23/20 09:28 Dose: 50,000 unit Documented by: Fluticasone Propionate (Flonase Nasal [place]) 2 spray NASAL DAILY [facility] Last Admin: 02/24/20 08:14 Dose: 2 spray Documented by: [facility]) [facility] Last Admin: 02/24/20 08:17 Dose: 200 mg Documented by: Sodium Chloride () 1,000 mls @ 150 mls/hr IV .Q6H40M [facility] Last Admin: 02/24/20 10:13 Dose: 150 mls/hr Documented by: Ceftriaxone Sodium (Rocephin) 1 gm in 50 mls @ 100 mls/hr IV Q24 [facility] Last Infusion: 02/24/20 10:46 Dose: Infused Documented by: Azithromycin 500 mg/ Dextrose 255 mls @ 250 mls/hr IV Q24 [facility] Last Infusion: 02/24/20 09:15 Dose: Infused Documented by: Insulin Glargine ([facility] ([facility])) [facility] Last Admin: 02/23/20 21:33 Dose: 29 units Documented by: Insulin Human Lispro (Humalog Kwikpen ([facility])) 0 unit SC [facility]; Protocol Last Admin: 02/24/20 10:23 Dose: 2 units Documented by: Isosorbide Mononitrate (Imdur) 30 mg PO DAILY [facility] Last Admin: 02/24/20 10:13 Dose: 30 mg Documented by: Lactobacillus [facility]) [facility] Last Admin: 02/23/20 21:32 Dose: 1 tablet Documented by: Latanoprost (Xalatan Opthalmic) 1 drop EACH EYE QHS [facility] Last Admin: 02/23/20 21:31 Dose: 1 drop Documented by: Loratadine (Claritin) 10 mg PO DAILY [facility] Last Admin: 02/24/20 08:15 Dose: 10 mg Documented by: Metoprolol Tartrate (Lopressor (Beta Nataliia)) 25 mg PO BID [facility] Last Admin: 02/24/20 10:13 Dose: 25 mg Documented by: Morphine Sulfate () 2 mg IV Q3H PRN PRN PRN Reason: pain 6-10/10 Nitroglycerin (Nitrostat) 0.4 mg SUBLINGUAL Q5M PRN PRN Reason: CARDIAC/CHEST PAIN Last Admin: 02/23/20 02:50 Dose: 0.4 mg Documented by: Ondansetron HCl (Zofran) 4 mg IV Q8H PRN PRN PRN Reason: NAUSEA/VOMITING Sodium Chloride () 10 - 40 ml IV UD PRN PRN Reason: SALINE FLUSH Trazodone HCl (Desyrel) 25 mg PO QHS [facility] Last Admin: 02/23/20 21:32 Dose: 25 mg Documented by: STROKE Vital Signs/Narrative: Vital Signs Temp Pulse Resp BP Pulse Ox 02/24/20 12:14 59 L 02/24/20 10:13 67 146/67 H 02/24/20 10:07 98.1 F 67 16 146/67 H 93 Medical Necessity - Tobacco Use Smoking Status: Former smoker Assessment/Plan All Active Problems Intractable low back pain (Acute) Sciatica (Acute) UTI (urinary tract infection) (Acute) Dehydration (Acute) Acute renal failure (Acute) Anemia (Acute) Community acquired pneumonia (Acute) # Chest pain still complaining of chest pain today, mainly left sided though I think this is likely due to her pneumonia, I think it is reasonable to rule out any cardiac issues with a Stress test will also get a 2D echo was initially refusing stress test, but is now agreeable to doing it tomorrow aspirin on hold o/a of anemia #Left lower lobe pneumonia still having scant hemoptysis CT of the chest done without contrast showed a left lower lobe pneumonia with moderate bilateral pleural effusions. Pulmonology consulted on account of hemoptysis. On ceftriaxone and azithromycin. Though it is listed that she is allergic to penicillins, patient was able to receive ceftriaxone in the ED and so was continued. leucocytosis has resolved. # DEBBIE on CKD Creatinine today has trended down to 3.25 Check renal ultrasound tomorrow. FeURea is 26.7 suggesting prerenal disease. Continue gentle hydration with IV fluids. nephrology consulted, per patient's request. #Anemia: Hb today is 8.4; she is s/p transfusion of one unit of PRBCs She states she had a colonoscopy about 3 years ago with removal of polyps and she is due for another one now. Baseline hemoglobin is around 8-9. Iron panel showed iron of 13 with TIBC of 141, iron saturation of 9.2 and ferritin of 431 indicating anemia of chronic disease picture. General surgery evaluated patient and asked the patient follow-up on outpatient basis to discuss EGD and colonoscopy. #Heart failure: Not in exacerbation. Hold Zaroxolyn and Lasix on account of DEBBIE on CKD. #Type 2 diabetes mellitus: On Lantus 29 units nightly. Insulin sliding scale. Accu-Cheks AC at bedtime. #Hypertension: On amlodipine and metoprolol DVT prophylaxis: SCDs. No anticoagulation on account of anemia. CODE STATUS: Full code Patient counseled extensively about different types of CODE STATUS including full code, DNR CCA and DNR CCA. Patient elects to be full code. Total [id number] time 16 minutes. Inpatient E&M: [id number] [facility] H[facility] L3
[2020-02-24 17:15] LABS: Bedside Glucose 224 mg/dL (70-110)
[2020-02-24] MEDS: traZODone 50 MG Tablet 25 MG PO (21:04)
[2020-02-24] MEDS: Latanoprost 0.005% 1 Bottle 1 DRP EACH EYE (21:05)
[2020-02-24] MEDS: Atorvastatin Calcium 10 MG Tablet PO (21:05)
[2020-02-24 21:50] LABS: Bedside Glucose 254 mg/dL (70-110)
[2020-02-25] VITALS (7 sets, daily range): BP systolic 142–165; BP diastolic 54–70; PULSE 62–64; RESP 16–18; TEMP 36.6–36.8; O2SAT 97–98
[2020-02-25] MEDS: 0.9% Normal Saline 1,000 ML 150 ML IV ×2 (01:23→08:12)
[2020-02-25 05:46] LABS: Urine Sodium 45 mmol/L (Not Establ.)
--- NOTE | 2020-02-25 06:12 | NURSING ---
pt refused to cooperate for pre stress test ekg
--- NOTE | 2020-02-25 06:40 | NURSING ---
this rn notified by lab that pt refused am labs. this rn went to pt's room to check bg and pt was cooperative. this rn explained to pt importance of ekg and labs before a stress test and pt said i'm having no stress test today, that's ridiculous. rn attempted to educate regarding importance and purpose of the test. pt does not respond. this rn asked pt if she was stating she is refusing to have the stress test done and she said yes.
--- NOTE | 2020-02-25 08:00 | NURSING ---
pt refusing stress test this morning. education provided, however patient continues to refuse and states that she just wants to go home. Notified Dr brandon and she is in room to talk with patient.
[2020-02-25] MEDS: Loratadine 10 MG Tablet PO (08:13)
[2020-02-25] MEDS: Metoprolol Tartrate 25 MG Tablet PO (08:13)
[2020-02-25] MEDS: Isosorbide Mononitrate 30 MG Tablet PO (08:13)
[2020-02-25] MEDS: Fluticasone 0.05% 1 SPRAY NASAL.SRY 2 SPRAY NASAL (08:13)
[2020-02-25] MEDS: Gabapentin 100 MG Capsule 200 MG PO (08:13)
[2020-02-25] MEDS: Ceftriaxone 1 GM/50 ML BAG IV (08:18)
[2020-02-25 08:40] LABS: Absolute Lymphocyte Count 1.35 X10^3/uL (0.83-4.51); Absolute Neutrophil Count 5.9 X10^3/uL (2.0-7.7); Basophil# 0.05 X10^3/uL; Basophil% 0.6 % (0-1); Eosinophil# 0.23 X10^3/uL; Eosinophils% 2.8 % (0-5); Hematocrit 27.4 % (37-47); Lymphocyte # 1.35 X10^3/ul (4.0); Lymphocyte % 16.4 % (19-41); Mean Corp Hgb Conc 32.8 g/dL (32-36); Mean Corpuscular Hgb 30.8 pg (27.0-32.0); Mean Corpuscular Volume 93.8 fL (81-99); Mean Platelet Vol. 10.9 fl (6.2-12.0); Monocyte# 0.62 X10^3/uL; Monocyte% 7.5 % (0-10); NRBC Flagged by Analyzer 0 % (0-5); Neutrophil # 5.92 X10^3/uL (2.7-7.7); Platelet Count 286 K/mm3 (150-450); RBC Distribution Width CV 13.2 % (11.6-14.6); RBC Distribution Width SD 45.2 fl (35.1-43.9); Red Blood Count 2.92 M/mm3 (4.2-5.4); White Blood Count 8.2 K/mm3 (4.4-11.0)
--- NOTE | 2020-02-25 08:50 | CON.PCM_ITS ---
Consultation - Renal 02/25/20 PCP/ Referring MD: Requesting physician: [] Primary care physician: Dr. Bailey Toribio MD Reason for Consultation:: DEBBIE on CKD - History of Present Illness History of Present Illness: The patient is a 74 year old F admitted for left-sided chest pain. She has been refusing stress test. States chest pain and diarrhea occurs with stress. Creatinine baseline 1.09 in June 2019, 3.6 on admission improved to 2.29 today. She was hydrated with iv fluids, on lasix and lisinopril at home. Denied nausea, vomiting. Appetite has been poor lately. She has a history of kidney stones with ureteral stent placement on 09/2019. Renal US from 02/24/20 unremarkable. Limited historian. - Allergies Allergies: Allergies ciprofloxacin [From Cipro] Allergy (Verified 02/22/20 19:48) Rash codeine Allergy (Verified 02/22/20 19:48) Shortness of breath Penicillins Allergy (Verified 02/22/20 19:48) Hives CILLINS Allergy (Uncoded 02/22/20 19:48) Unknown - Current Medications Current Medications: Current Medications Acetaminophen (Tylenol) 650 mg PO Q4H PRN PRN PRN Reason: Pain or Fever Atorvastatin Calcium (Lipitor) 10 mg PO QHS [facility] Last Admin: 02/24/20 21:05 Dose: 10 mg Documented by: Cyclobenzaprine HCl (Flexeril) 10 mg PO TID PRN PRN PRN Reason: MUSCLE SPASM Ergocalciferol (Vitamin D) 50,000 unit PO QWEEK [facility] Last Admin: 02/23/20 09:28 Dose: 50,000 unit Documented by: Fluticasone Propionate (Flonase Nasal [place]) 2 spray NASAL DAILY [facility] Last Admin: 02/25/20 08:13 Dose: 2 spray Documented by: Gabapentin (Neurontin) 200 mg PO BIDCM [facility] Last Admin: 02/25/20 08:13 Dose: 200 mg Documented by: Sodium Chloride () 1,000 mls @ 150 mls/hr IV .Q6H40M [facility] Last Admin: 02/25/20 08:12 Dose: 150 mls/hr Documented by: Ceftriaxone Sodium (Rocephin) 1 gm in 50 mls @ 100 mls/hr IV Q24 [facility] Last Admin: 08/25/20 08:18 Dose: 100 mls/hr Documented by: Azithromycin 500 mg/ Dextrose 255 mls @ 250 mls/hr IV Q24 [facility] Last Infusion: 02/24/20 09:15 Dose: Infused Documented by: Insulin Glargine (Lantus ([facility])) 29 units SC QHS [facility] Last Admin: 02/24/20 21:03 Dose: 29 units Documented by: Insulin Human Lispro (Humalog Kwikpen ([facility])) 0 unit SC ACHS [facility]; Protocol Last Admin: 02/25/20 08:01 Dose: Not Given Documented by: Isosorbide Mononitrate (Imdur) 30 mg PO DAILY [facility] Last Admin: 02/25/20 08:13 Dose: 30 mg Documented by: Lactobacillus Acidophilus (Acidophilus) 1 tablet PO QHS [facility] Last Admin: 02/24/20 21:05 Dose: 1 tablet Documented by: Latanoprost (Xalatan Opthalmic) 1 drop EACH EYE QHS [facility] Last Admin: 02/24/20 21:05 Dose: 1 drop Documented by: Loratadine (Claritin) 10 mg PO DAILY [facility] Last Admin: 02/25/20 08:13 Dose: 10 mg Documented by: Metoprolol Tartrate (Lopressor (Beta Nataliia)) 25 mg PO BID [facility] Last Admin: 02/25/20 08:13 Dose: 25 mg Documented by: Morphine Sulfate () 2 mg IV Q3H PRN PRN PRN Reason: pain 6-10/10 Nitroglycerin (Nitrostat) 0.4 mg SUBLINGUAL Q5M PRN PRN Reason: CARDIAC/CHEST PAIN Last Admin: 02/23/20 02:50 Dose: 0.4 mg Documented by: Ondansetron HCl (Zofran) 4 mg IV Q8H PRN PRN PRN Reason: NAUSEA/VOMITING Sodium Chloride () 10 - 40 ml IV UD PRN PRN Reason: SALINE FLUSH Trazodone HCl (Desyrel) 25 mg PO QHS [facility] Last Admin: 02/24/20 21:04 Dose: 25 mg Documented by: - 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 - Social History Marital Status: Smoking Status: Former smoker Alcohol: None Drugs: None - Family History Maternal History Items: Cancer, Diabetes, Heart Disease, Hypertension Paternal History Items: Cancer, Heart Disease Review of Systems Constitutional: Denies: Anorexia, Chills, Fever, Weakness Eyes: Denies: Redness Cardiovascular: Reports: Chest Pain. Denies: Edema, Syncope Respiratory: Denies: Cough, Shortness of Breath Gastrointestinal: Reports: Diarrhea - with stress. Denies: Abdominal Pain, Constipation, Hematemesis, Hematochezia, Nausea, Vomiting Genitourinary: Denies: Dysuria, Frequency, Hematuria Musculoskeletal: Denies: Joint swelling, Joint Tenderness Skin: Denies: Rash Neurological: Denies: Tremor, Seizures Hematologic/ Lymphatic: Reports: Anemia Patient Problems: Active and Suspected Problems Dehydration (Acute) Acute renal failure (Acute) Anemia (Acute) Community acquired pneumonia (Acute) - Physical Exam Vitals/I&O's: Vital Signs Temp Pulse Resp BP Pulse Ox 98.2 F 62 16 165/54 H 97 02/25/20 08:01 02/25/20 08:13 02/25/20 08:01 02/25/20 08:01 02/25/20 08:01 Oxygen Flow Rate (L/min) 2 Oxygen Delivery Method Room Air Weight: 78.1 kg Body Mass Index (BMI) 33.6 Finger Stick Blood Glucose 88 Intake and Output for Last 24 Hours 02/23/20 02/24/20 02/25/20 23:59 23:59 23:59 Intake Total 4595.0 / 4595.0 4615 / 4615 1870 / 1870 Output Total 300 / 300 2100 / 2100 200 / 200 Balance 4295.0 / 4295.0 2515 / 2515 1670 / 1670 General: Alert, Oriented x3, Cooperative, No apparent distress Neck: Supple Lungs: Clear to auscultation Cardiovascular: Regular rate Abdomen: Bowel Sounds Present, Soft, Non Tender, Non-Distended, Obese Extremities: Edema - mild BLE Skin: No rashes Musculoskeletal: No Muscle Wasting Neurological: Cranial nerves II-XII grossly intact Psych/Mental Status: Normal Affect, Appropriate, Alert and oriented to time, place, person, mood and affect Microbiology Past 72 Hours 02/23/20 01:40 Urine, Clean Catch Urine Culture - Final Culture exhibits no growth. 02/23/20 01:40 Urine, Clean Catch Legionella Antigen - Final 02/23/20 01:40 Urine, Clean Catch Streptococcus pneumoniae Antigen (M - Final 02/22/20 14:40 Stool Stool Occult Blood (ANTONIO) - Final Laboratory Results 02/24/20 10:20: POC Glucose 199 H 02/24/20 17:12: POC Glucose 224 H 02/24/20 21:00: POC Glucose 254 H 02/25/20 01:20: Ur Random Sodium 45 02/25/20 08:28: Sodium Pending, Potassium Pending, Chloride Pending, Carbon Dioxide Pending, BUN Pending, Creatinine Pending, Est GFR (MDRD) Af Amer Pending, Est GFR (MDRD) Non-Af Pending, BUN/Creatinine Ratio Pending, Glucose Pending, Calcium Pending, Phosphorus Pending, Albumin Pending 02/25/20 08:28: WBC 8.2, RBC 2.92 L, Hgb 9.0 L, Hct 27.4 L, MCV 93.8, MCH 30.8, MCHC 32.8, RDW Std Deviation 45.2 H, RDW Coeff of Kusum 13.2, Plt Count 286, MPV 10.9, Immature Gran % (Auto) 0.700, Neut % (Auto) 72.0 H, Lymph % (Auto) 16.4 L, [place] % (Auto) 7.5, Eos % (Auto) 2.8, Baso % (Auto) 0.6, Absolute Neuts (auto) 5.9, Absolute Lymphs (auto) 1.35, Nucleated RBC % 0 Clinical Impression(s) from Imaging Studies Renal Ultrasound 02/24/20 12:34 IMPRESSION: Normal ultrasound of the kidneys and urinary bladder. Electronically Signed: Colton Lee MD at 14:50 EDT Tel , Service support , Current Medications Acetaminophen (Tylenol) 650 mg PO Q4H PRN PRN PRN Reason: Pain or Fever Atorvastatin Calcium (Lipitor) 10 mg PO QHS [facility] Last Admin: 02/24/20 21:05 Dose: 10 mg Documented by: Cyclobenzaprine HCl (Flexeril) 10 mg PO TID PRN PRN PRN Reason: MUSCLE SPASM Ergocalciferol (Vitamin D) 50,000 unit PO QWEEK [facility] Last Admin: 02/23/20 09:28 Dose: 50,000 unit Documented by: Fluticasone Propionate (Flonase Nasal [place]) 2 spray NASAL DAILY [facility] Last Admin: 02/25/20 08:13 Dose: 2 spray Documented by: Gabapentin (Neurontin) 200 mg PO BIDCM [facility] Last Admin: 02/25/20 08:13 Dose: 200 mg Documented by: Sodium Chloride () 1,000 mls @ 150 mls/hr IV .Q6H40M [facility] Last Admin: 02/25/20 08:12 Dose: 150 mls/hr Documented by: Ceftriaxone Sodium (Rocephin) 1 gm in 50 mls @ 100 mls/hr IV Q24 [facility] Last Admin: 02/25/20 08:18 Dose: 100 mls/hr Documented by: Azithromycin 500 mg/ Dextrose 255 mls @ 250 mls/hr IV Q24 [facility] Last Infusion: 02/24/20 09:15 Dose: Infused Documented by: Insulin Glargine (Lantus ([facility])) 29 units SC QHS [facility] Last Admin: 02/24/20 21:03 Dose: 29 units Documented by: Insulin Human Lispro (Humalog Kwikpen ([facility])) 0 unit SC [facility]; Protocol Last Admin: 02/25/20 08:01 Dose: Not Given Documented by: Isosorbide Mononitrate (Imdur) 30 mg PO DAILY [facility] Last Admin: 02/25/20 08:13 Dose: 30 mg Documented by: Lactobacillus Acidophilus (Acidophilus) 1 tablet PO QHS [facility] Last Admin: 02/24/20 21:05 Dose: 1 tablet Documented by: Latanoprost (Xalatan Opthalmic) 1 drop EACH EYE QHS [facility] Last Admin: 02/24/20 21:05 Dose: 1 drop Documented by: Loratadine (Claritin) 10 mg PO DAILY [facility] Last Admin: 02/25/20 08:13 Dose: 10 mg Documented by: Metoprolol Tartrate (Lopressor (Beta Nataliia)) 25 mg PO BID [facility] Last Admin: 02/25/20 08:13 Dose: 25 mg Documented by: Morphine Sulfate () 2 mg IV Q3H PRN PRN PRN Reason: pain 6-10/10 Nitroglycerin (Nitrostat) 0.4 mg SUBLINGUAL Q5M PRN PRN Reason: CARDIAC/CHEST PAIN Last Admin: 02/23/20 02:50 Dose: 0.4 mg Documented by: Ondansetron HCl (Zofran) 4 mg IV Q8H PRN PRN PRN Reason: NAUSEA/VOMITING Sodium Chloride () 10 - 40 ml IV UD PRN PRN Reason: SALINE FLUSH Trazodone HCl (Desyrel) 25 mg PO QHS [facility] Last Admin: 02/24/20 21:04 Dose: 25 mg Documented by: Assessment/Plan All Active Problems Intractable low back pain (Acute) Sciatica (Acute) UTI (urinary tract infection) (Acute) Dehydration (Acute) Acute renal failure (Acute) Anemia (Acute) Community acquired pneumonia (Acute) 1. Acute on CKD stage 3 due to prerenal event, on diuretics, ACEI at home with poor intake. Creatinine 3.6 improved to 2.29 today. Resume low dose lasix on discharge. Baseline creatinine 1.09 in Jun 2019. Hold on ACEI 2. DM2 pcp mgmt 3. HTN monitor 4. Chest pain primary care mgmt 5. Iron def Anemia f/u as outpt. Add oral antibx DW hospitalist
[2020-02-25 08:51] LABS: Albumin, Serum 1.8 g/dL (3.2-5.0); BUN 55 mg/dL (7-18); Calcium,Total 8.4 mg/dL (8.5-10.1); Chloride 111 mmol/L (98-107); Creatinine, Serum 2.29 mg/dL (0.55-1.02); EST Glomerular Filtration Rate 22 mL/min (>60); Est Glom Filt Rate - Afr Amer 27 mL/min (>60); Estimated Creatinine Clearance 15.48 ml/min; Glucose 101 mg/dL (74-106); Sodium Level 139 mmol/L (136-145)
[2020-02-25 09:10] LABS: Bedside Glucose 104 mg/dL (70-110)
--- NOTE | 2020-02-25 10:08 | PN_ITS ---
Subjective: The patient was seen and examined at the bedside this morning. Events from the last 24 hours have been reviewed. The patient is currently afebrile, hemodynamically stable and maintaining appropriate oxygen saturations on room air. Objective: The patient's most recent lab work, culture data and imaging studies have all been personally reviewed. CT chest revealed left lower lobe airspace opacity and bilateral pleural effusions. Surface echocardiogram dated June 2019 revealed stage II diastolic dysfunction with an ejection fraction of 60%. Pulmonary artery systolic pressure was estimated to be 40 mmHg. - Physical Exam Vitals/I&O's: Vital Signs Temp Pulse Resp BP Pulse Ox 98.2 F 62 16 165/54 H 97 02/25/20 08:01 02/25/20 08:13 02/25/20 08:01 02/25/20 08:01 02/25/20 08:01 Oxygen Flow Rate (L/min) 2 Oxygen Delivery Method Room Air Weight: 172 lb 2.896 oz Body Mass Index (BMI) 33.6 Finger Stick Blood Glucose 88 Intake and Output for Last 24 Hours 02/23/20 02/24/20 02/25/20 23:59 23:59 23:59 Intake Total 4595.0 / 4595.0 4615 / 4615 1920 / 1920 Output Total 300 / 300 2100 / 2100 200 / 200 Balance 4295.0 / 4295.0 2515 / 2515 1720 / 1720 General: Alert, Cooperative, No apparent distress HEENT: Atraumatic, Normocephalic Oral: No Gingival or Mucosal Lesions/ Ulcerations Neck: Supple, No Nodes, Trachea Midline Lungs: Diminished Cardiovascular: Regular rate, Regular Rhythm Abdomen: Bowel Sounds Present, Soft, Non Tender Extremities: No clubbing, No cyanosis, No edema Skin: No breakdown Musculoskeletal: No Tenderness to Palpation of Joints or Extremities, No Muscle Wasting Lymphatic: No Cervical, Supraclavicular, or Inguinal Adenopathy Neurological: Cranial nerves II-XII grossly intact, Neuro grossly intact Psych/Mental Status: Normal Affect, Appropriate Labs (Last 48 Hours) 02/23/20 02/23/20 02/23/20 08:21 11:35 16:16 WBC RBC Hgb Hct MCV MCH MCHC RDW Std Deviation RDW Coeff of K[place] Plt Count MPV Immature Gran % (Auto) Neut % (Auto) Lymph % (Auto) [place] % (Auto) Eos % (Auto) Baso % (Auto) Absolute Neuts (auto) Absolute Lymphs (auto) Nucleated RBC % Sodium Potassium Chloride Carbon Dioxide Anion Gap BUN Creatinine Estim Creat Clear Calc Est GFR (MDRD) Af Amer Est GFR (MDRD) Non-Af BUN/Creatinine Ratio Glucose Calcium Phosphorus Albumin Ur Random Sodium NARINDER Screen c-ANCA Antibody p-ANCA Antibody PAMELLA-1 Antibody SS-A/Ro IgG Antibody SS-B/La IgG Antibody Sm ([place]omack) Antibody ADVERTISING ACCOUNT EXECUTIVE Antibody Scl-70 Scleroderma Ab Double Strand DNA Ab Centromere B Antibody POC Glucose 313 H 361 H Blood Type O POSITIVE Antibody Screen NEGATIVE Crossmatch See Detail 02/23/20 02/23/20 02/24/20 18:10 21:31 05:35 WBC RBC Hgb 8.5 L Hct 26.4 L MCV MCH MCHC RDW Std Deviation RDW Coeff of [place] Plt Count MPV Immature Gran % (Auto) Neut % (Auto) Lymph % (Auto) [place] % (Auto) Eos % (Auto) Baso % (Auto) Absolute Neuts (auto) Absolute Lymphs (auto) Nucleated RBC % Sodium Potassium Chloride Carbon Dioxide Anion Gap BUN Creatinine Estim Creat Clear Calc Est GFR (MDRD) Af Amer Est GFR (MDRD) Non-Af BUN/Creatinine Ratio Glucose Calcium Phosphorus Albumin Ur Random Sodium NARINDER Screen Pending c-ANCA Antibody p-ANCA Antibody PAMELLA-1 Antibody Pending SS-A/Ro IgG Antibody Pending SS-B/La IgG Antibody Pending Sm ([place]om[place]) Antibody Pending ADVERTISING ACCOUNT EXECUTIVE Antibody Pending Scl-70 Scleroderma Ab Pending Double Strand DNA Ab Pending Centromere B Antibody Pending POC Glucose 280 H Blood Type Antibody Screen Crossmatch 02/24/20 02/24/20 02/24/20 05:35 05:35 05:35 WBC 8.1 RBC 2.81 L Hgb 8.4 L Hct 25.8 L MCV 91.8 MCH 29.9 MCHC 32.6 RDW Std Deviation 44.2 H RDW Coeff of Kusum 13.2 Plt Count 203 MPV 11.5 Immature Gran % (Auto) 0.500 Neut % (Auto) 67.9 Lymph % (Auto) 21.1 [place] % (Auto) 7.3 Eos % (Auto) 3.0 Baso % (Auto) 0.2 Absolute Neuts (auto) 5.5 Absolute Lymphs (auto) 1.70 Nucleated RBC % 0 Sodium 135 L Potassium 4.4 Chloride 108 H Carbon Dioxide 21.0 Anion Gap 6 BUN 63 H Creatinine 3.25 H Estim Creat Clear Calc 10.91 Est GFR (MDRD) Af Amer 18 L Est GFR (MDRD) Non-Af 15 L BUN/Creatinine Ratio 19.4 Glucose 144 H Calcium 8.1 L Phosphorus Albumin Ur Random Sodium NARINDER Screen c-ANCA Antibody Pending p-ANCA Antibody Pending PAMELLA-1 Antibody SS-A/Ro IgG Antibody SS-B/La IgG Antibody Sm ([place]omack) Antibody ADVERTISING ACCOUNT EXECUTIVE Antibody Scl-70 Scleroderma Ab Double Strand DNA Ab Centromere B Antibody POC Glucose Blood Type Antibody Screen Crossmatch 02/24/20 02/24/20 02/24/20 06:47 10:20 17:12 WBC RBC Hgb Hct MCV MCH MCHC RDW Std Deviation RDW Coeff of K[place]um Plt Count MPV Immature Gran % (Auto) Neut % (Auto) Lymph % (Auto) [place] % (Auto) Eos % (Auto) Baso % (Auto) Absolute Neuts (auto) Absolute Lymphs (auto) Nucleated RBC % Sodium Potassium Chloride Carbon Dioxide Anion Gap BUN Creatinine Estim Creat Clear Calc Est GFR (MDRD) Af Amer Est GFR (MDRD) Non-Af BUN/Creatinine Ratio Glucose Calcium Phosphorus Albumin Ur Random Sodium NARINDER Screen c-ANCA Antibody p-ANCA Antibody PAMELLA-1 Antibody SS-A/Ro IgG Antibody SS-B/La IgG Antibody Sm (Womack) Antibody ADVERTISING ACCOUNT EXECUTIVE Antibody Scl-70 Scleroderma Ab Double Strand DNA Ab Centromere B Antibody POC Glucose 131 H 199 H 224 H Blood Type Antibody Screen Crossmatch 02/24/20 02/25/20 02/25/20 21:00 01:20 06:21 WBC RBC Hgb Hct MCV MCH MCHC RDW Std Deviation RDW Coeff of Kusum Plt Count MPV Immature Gran % (Auto) Neut % (Auto) Lymph % (Auto) [place] % (Auto) Eos % (Auto) Baso % (Auto) Absolute Neuts (auto) Absolute Lymphs (auto) Nucleated RBC % Sodium Potassium Chloride Carbon Dioxide Anion Gap BUN Creatinine Estim Creat Clear Calc Est GFR (MDRD) Af Amer Est GFR (MDRD) Non-Af BUN/Creatinine Ratio Glucose Calcium Phosphorus Albumin Ur Random Sodium 45 NARINDER Screen c-ANCA Antibody p-ANCA Antibody PAMELLA-1 Antibody SS-A/Ro IgG Antibody SS-B/La IgG Antibody Sm ([place]omack) Antibody ADVERTISING ACCOUNT EXECUTIVE Antibody Scl-70 Scleroderma Ab Double Strand DNA Ab Centromere B Antibody POC Glucose 254 H 104 Blood Type Antibody Screen Crossmatch 02/25/20 02/25/20 08:28 08:28 WBC 8.2 RBC 2.92 L Hgb 9.0 L Hct 27.4 L MCV 93.8 MCH 30.8 MCHC 32.8 RDW Std Deviation 45.2 H RDW Coeff of Kusum 13.2 Plt Count 286 MPV 10.9 Immature Gran % (Auto) 0.700 Neut % (Auto) 72.0 H Lymph % (Auto) 16.4 L [place] % (Auto) 7.5 Eos % (Auto) 2.8 Baso % (Auto) 0.6 Absolute Neuts (auto) 5.9 Absolute Lymphs (auto) 1.35 Nucleated RBC % 0 Sodium 139 Potassium 4.0 Chloride 111 H Carbon Dioxide 20.0 L Anion Gap BUN 55 H Creatinine 2.29 H Estim Creat Clear Calc 15.48 Est GFR (MDRD) Af Amer 27 L Est GFR (MDRD) Non-Af 22 L BUN/Creatinine Ratio 24.0 H Glucose 101 Calcium 8.4 L Phosphorus 5.0 H Albumin 1.8 L Ur Random Sodium NARINDER Screen c-ANCA Antibody p-ANCA Antibody PAMELLA-1 Antibody SS-A/Ro IgG Antibody SS-B/La IgG Antibody Sm ([place]om[place]) Antibody ADVERTISING ACCOUNT EXECUTIVE Antibody Scl-70 Scleroderma Ab Double Strand DNA Ab Centromere B Antibody POC Glucose Blood Type Antibody Screen Crossmatch Microbiology 02/23/20 01:40 Urine, Clean Catch Urine Culture - Final Culture exhibits no growth. 02/23/20 01:40 Urine, Clean Catch Legionella Antigen - Final 02/23/20 01:40 Urine, Clean Catch Streptococcus pneumoniae Antigen (M - Final Clinical Impression(s) from Imaging Studies Chest X-Ray 02/22/20 13:49 IMPRESSION: Retrocardiac opacity in the left lung which is consistent with an infiltrate. Electronically Signed: Scotty Marroquin, at 14:38 EDT Tel , Service support , Brain CT 02/22/20 18:30 IMPRESSION: No acute intracranial abnormality. Stable mild chronic ischemic changes. Electronically Signed: Scotty Cara, at 19:49 EDT Tel , Service support , Chest CT 02/23/20 08:15 IMPRESSION: Left lower lobe pneumonia with moderate bilateral pleural effusions. Electronically Signed: Colton Lee MD at 9:45 EDT Tel , Service support , Renal Ultrasound 02/24/20 12:34 IMPRESSION: Normal ultrasound of the kidneys and urinary bladder. Electronically Signed: Colton Lee MD at 14:50 EDT Tel , Service support , Current Medications Acetaminophen (Tylenol) 650 mg PO Q4H PRN PRN PRN Reason: Pain or Fever Atorvastatin Calcium (Lipitor) 10 mg PO QHS [facility] Last Admin: 02/24/20 21:05 Dose: 10 mg Documented by: Cyclobenzaprine HCl (Flexeril) 10 mg PO TID PRN PRN PRN Reason: MUSCLE SPASM Ergocalciferol (Vitamin D) 50,000 unit PO QWEEK [facility] Last Admin: 02/23/20 09:28 Dose: 50,000 unit Documented by: Ferrous Sulfate (Ferrous Sulfate) 325 mg PO 1200,1700 [facility] Fluticasone Propionate (Flonase Nasal [place]) 2 spray NASAL DAILY [facility] Last Admin: 02/25/20 08:13 Dose: 2 spray Documented by: Gabapentin (Neurontin) 200 mg PO BIDCM [facility] Last Admin: 02/25/20 08:13 Dose: 200 mg Documented by: Sodium Chloride () 1,000 mls @ 150 mls/hr IV .Q6H40M [facility] Last Admin: 02/25/20 08:12 Dose: 150 mls/hr Documented by: Ceftriaxone Sodium (Rocephin) 1 gm in 50 mls @ 100 mls/hr IV Q24 [facility] Last Infusion: 02/25/20 09:04 Dose: Infused Documented by: Azithromycin 500 mg/ Dextrose 255 mls @ 250 mls/hr IV Q24 [facility] Last Admin: 02/25/20 09:05 Dose: 250 mls/hr Documented by: Insulin Glargine (Lantus ([facility])) 29 units SC QHS [facility] Last Admin: 02/24/20 21:03 Dose: 29 units Documented by: Insulin Human Lispro (Humalog Kwikpen ([facility])) 0 unit SC ACHS [facility]; Protocol Last Admin: 02/25/20 08:01 Dose: Not Given Documented by: Isosorbide Mononitrate (Imdur) 30 mg PO DAILY [facility] Last Admin: 02/25/20 08:13 Dose: 30 mg Documented by: Lactobacillus Acidophilus (Acidophilus) 1 tablet PO QHS [facility] Last Admin: 02/24/20 21:05 Dose: 1 tablet Documented by: Latanoprost (Xalatan Opthalmic) 1 drop EACH EYE QHS [facility] Last Admin: 02/24/20 21:05 Dose: 1 drop Documented by: Loratadine (Claritin) 10 mg PO DAILY [facility] Last Admin: 02/25/20 08:13 Dose: 10 mg Documented by: Metoprolol Tartrate (Lopressor (Beta Nataliia)) 25 mg PO BID [facility] Last Admin: 02/25/20 08:13 Dose: 25 mg Documented by: Morphine Sulfate () 2 mg IV Q3H PRN PRN PRN Reason: pain 6-10/10 Nitroglycerin (Nitrostat) 0.4 mg SUBLINGUAL Q5M PRN PRN Reason: CARDIAC/CHEST PAIN Last Admin: 02/23/20 02:50 Dose: 0.4 mg Documented by: Ondansetron HCl (Zofran) 4 mg IV Q8H PRN PRN PRN Reason: NAUSEA/VOMITING Sodium Chloride () 10 - 40 ml IV UD PRN PRN Reason: SALINE FLUSH Trazodone HCl (Desyrel) 25 mg PO QHS [facility] Last Admin: 02/24/20 21:04 Dose: 25 mg Documented by: Medical Necessity - Tobacco Use Smoking Status: Former smoker Assessment/Plan All Active Problems Intractable low back pain (Acute) Sciatica (Acute) UTI (urinary tract infection) (Acute) Dehydration (Acute) Acute renal failure (Acute) Anemia (Acute) Community acquired pneumonia (Acute) RECOMMENDATIONS: 1. Continue antimicrobials, with plans to complete a 7-day treatment course. 2. Perform walking oximetry study prior to consideration for discharge home. 3. Encourage incentive spirometer use and mobilize patient as tolerated. 4. Monitor H&H daily, with plans to transfuse if hemoglobin drops below 7 g/dL. 5. Outpatient pulmonary follow-up within 2 weeks of discharge. IMPRESSIONS: 1. Acute hypoxemic respiratory insufficiency/hemoptysis, likely secondary to community-acquired pneumonia The patient's chest imaging did reveal evidence of a left lower lobe airspace opacity. Her hemoptysis is likely the consequence of underlying infection, and is improving with antimicrobial therapy. Recommend completing a full 7-day treatment course of antibiotics. She has been weaned from supplemental oxygen to room air this morning. She feels well from a respiratory perspective. Vasculitis panel is currently pending. Given the patient's extensive smoking history, recommend outpatient PFTs for formal evaluation of COPD upon discharge from the hospital. 2. Acute on chronic kidney disease Potentially prerenal in etiology. Renal ultrasound is pending. However, creatinine is improving with gentle IV fluid resuscitation. Continue to monitor urine output. No current indication for renal replacement therapy. 3. Anemia Stable at this time. Plan to monitor H&H daily. Transfuse if hemoglobin drops below 7 g/dL. 4. History of CHF/type 2 diabetes mellitus/hypertension Complicates care, management, recovery and prognosis. Continue home medications as indicated. This note was generated with [employer] software. It may contain incorrect words, spelling, and punctuation that were not noted in checking the note before signing. Inpatient E&M: [id number] Subs Hosp L2
--- NOTE | 2020-02-25 11:06 | DCINST_ITS ---
- Discharge Diagnoses Current Active Problems: Current Active and Chronic Problems Dehydration (Acute) Acute renal failure (Acute) Anemia (Acute) Community acquired pneumonia (Acute) COPD (chronic obstructive pulmonary disease) (Chronic) Diabetes type 2, uncontrolled (Chronic) You will use the following diet at home:: Cardiac Your food should be the consistency of: Regular Your liquids should be the consistency of: Regular/Thin Discharge Activity: Return to Normal Activity Weight Bearing Status: Weight bearing as tolerated Call your doctor if you observe: Fever of 101 or Higher, Shortness of breath, Dizziness, Fainting spells, Swelling in the ankles, Chest pain Instructions: What Is Pneumonia?, What Is Angina?, Heart Attack, Anemia, Chronic Kidney Disease Additional Instructions: follow up with PCP for stress test as outpatient Allergies/Adverse Reactions: Allergies ciprofloxacin [From Cipro] Allergy (Verified 02/22/20 19:48) Rash codeine Allergy (Verified 02/22/20 19:48) Shortness of breath Penicillins Allergy (Verified 02/22/20 19:48) Hives CILLINS Allergy (Uncoded 02/22/20 19:48) Unknown Medications to take at Discharge Isosorbide Mononitrate [Isosorbide Mononitrate ER] 30 mg PO DAILY 04/10/15 Latanoprost 0.005% [Xalatan Opthalmic] 1 drop EACH EYE QHS 05/03/18 Insulin Lispro [Humalog KwikPen] 10 unit SUBCUT TIDCM 06/10/19 Famotidine 40 mg PO BID 06/29/19 Insulin Glargine [Lantus SoloStar Pen] 29 units SUBCUT QHS 06/29/19 traZODone [Desyrel] 25 mg PO QHS 06/29/19 Atorvastatin Calcium [Lipitor] 10 mg PO QHS 09/06/19 Ergocalciferol [Vitamin D] 50,000 unit PO QWEEK 09/06/19 Fexofenadine HCl 60 mg PO DAILY 09/06/19 Gabapentin [Neurontin] 200 mg PO BID #0 09/06/19 Lactobacillus Acidophilus [Acidophilus] 1 tab PO QHS 09/06/19 Amlodipine [Norvasc] 10 mg PO DAILY #30 tab 09/08/19 Metoprolol Tartrate [Lopressor (beta carson)] 25 mg PO BID #60 tab 09/08/19 Fluticasone 0.05% [Flonase Nasal [place]] 2 spray NASAL DAILY 09/24/19 Furosemide [Lasix] 40 mg PO DAILY 09/24/19 Potassium Chloride [Klor-Con M20] 20 meq PO TID 09/24/19 cycloBENZAPRine HCl [Flexeril] 10 mg PO TID PRN PRN #15 tab 12/23/19 Doxycycline 100 mg PO BID 7 Days #14 cap 02/25/20 Ferrous Sulfate 325 mg PO BIDCM #60 tab 02/25/20 The following prescriptions were given: Doxycycline 100 mg PO BID 7 Days #14 cap Transmission Status: Pending to [id number] Ferrous Sulfate 325 mg PO BIDCM #60 tab Transmission Status: Pending to [facility]pharmacy #[id number] Primary Care Physician: Bailey Toribio MD [Primary Care Provider] - Please follow up with your Primary Care Physician in: 1-2 weeks Test Results: Test results from this visit will be discussed in further detail at your follow- up appointment, if applicable. Please Follow Up With: Heraclio Marrufo MD When: 1-2 weeks Please Follow Up With: Mario Velazco DO When: 1-2 weeks Please Follow Up With: Christine Steward DO When: 1-2 weeks Proposed Discharge Date: 02/25/20
--- NOTE | 2020-02-25 11:08 | DS.PCM_ITS ---
Discharge Date and Diagnosis Date of Admission: 02/22/20 Date of Discharge: 02/25/20 - Primary Discharge Diagnosis Acute Problems: Active Problems Dehydration (Acute) Acute renal failure (Acute) Anemia (Acute) Community acquired pneumonia (Acute) - Secondary Discharge Diagnosis Chronic Problems: Chronic Problems Seizure disorder (Chronic) Stroke (Chronic) Coronary artery disease (Chronic) Depression (Chronic) Bipolar disorder (Chronic) Multiple personality disorder (Chronic) Restless legs syndrome (Chronic) Rheumatoid arthritis (Chronic) Generalized anxiety disorder (Chronic) ELENITA on CPAP (Chronic) COPD (chronic obstructive pulmonary disease) (Chronic) Peripheral neuropathy (Chronic) Esophageal reflux (Chronic) Depressive disorder (Chronic) 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 Electronically Signed: Scotty Marroquin, at 14:38 EDT Tel , Service support , Brain CT 02/22/20 18:30 IMPRESSION: No acute intracranial abnormality. Stable mild chronic ischemic changes. Electronically Signed: Scotty Marroquin at 19:49 EDT Tel , Service support , Chest CT 02/23/20 08:15 IMPRESSION: Left lower lobe pneumonia with moderate bilateral pleural effusions. Electronically Signed: Colton Lee MD at 9:45 EDT Tel , Service support , Renal Ultrasound 02/24/20 12:34 IMPRESSION: Normal ultrasound of the kidneys and urinary bladder. Electronically Signed: Colton Lee MD at 14:50 EDT Tel , Service support , general surgery- Dr Marrufo pulmonology- Dr Velazco nephrology- Dr Steward Operations: None Procedures: None Summary of Care Provided: The patient is a 74 year old F with an extensive past medical history as outlined. She was admitted through the ED on 02/22/2020 with a complaint of left-sided chest pain. Patient was out at a restaurant with her boyfriend and started having left-sided chest pain which was worsened by movement and relieved by rest. She denied any shortness of breath though she says she had been having generalized malaise for several days prior to this admission and had been feeling weak. She had also had a few episodes of diarrhea on the day before admission. She denied any nausea and denied any fever or chills and admitted to a chronic cough which is not new. She denied any frequency or burning with urination. In the ED, at time of review temperature was 97.8 Fahrenheit with pulse rate of 79 and respiratory rate of 28, with blood pressure initially being 99/48 but trended up to the 110 systolic. She was saturating at 100% on 3 L of oxygen and even on room air, she was saturating in the mid 90s but would go down intermittently to the mid 80s. Chemistry showed sodium of 130 with creatinine of 3.61 initial troponin was negative. CBC showed hemoglobin of 7, with WBC of 11.4 and platelets of 209. Chest x-ray showed retrocardiac opacity in the left lung which is consistent with an infiltrate and EKG showed normal sinus rhythm with no acute ST changes. She was admitted to be managed for acute on chronic anemia, DEBBIE on CKD and anemia as well as chest pain. COVID test was done and was negative. Opponens x3 were negative. She was hydrated with IV fluids and urea was checked which showed that DEBBIE on CKD was mainly prerenal. Hemoglobin made at 7 and she was transfused with 1 unit of packed red blood cells. She was also started on IV antibiotics as chest CT done showed left lower lobe pneumonia. Though she was stated as being allergic to penicillin, she tolerated ceftriaxone and azithromycin. Nephrology was consulted as creatinine was not trending down as expected. Renal ultrasound done was unremarkable. Decision was made for patient to have a stress test as she kept on having persistent chest pain. Patient refused stress test and stated she wanted to go home because she did not want to be treated like a [id number] woman. Family convinced patient to have stress test. However on the day of discharge, patient again refused schedule stress test and did not want take her medications and refused any other treatment because she wanted to leave. Hospitalist counseled patient extensively that if she did have any cardiac pathology that was causing the persistent chest pain, she was at risk of heart attack and even if this was not worked up. Patient stated she did not care and wanted to be discharged home and will go to [facility] and see her outpatient physician for the stress test. Of note, stool for occult blood was negative and strep and Legionella antigens were also negative. Urine culture was also negative. Patient remained stable and despite reservations about discharge, she insisted on being discharged on 02/25/2020 and refused to stay in the hospital anymore. She was discharged home with a prescription for p.o. doxycycline 1 mg twice daily for 7 days. Of note, iron panel done also showed iron deficiency anemia and she was discharged home with oral iron supplementation. She is to follow-up with her primary care doctor within 1 to 2 weeks. Seen and examined prior to discharge. Patient was quite antagonistic and did no t really want to communicate with the medical team and insisted that she wanted to be discharged.review of symptoms otherwise negative. Labs and vitals reviewed. Medication reviewed and reconciled. O/E: Vital Signs Temp Pulse Resp BP Pulse Ox 98.2 F 62 16 156/66 H 97 02/25/20 08:01 02/25/20 08:13 02/25/20 08:01 02/25/20 11:58 02/25/20 08:01 General: Alert, Oriented x3, Cooperative, No apparent distress, HEENT: Atraumatic, PERRLA, EOMI, Normocephalic Oral: Dry Mucosa Neck: Supple, No JVD, Negative Carotid Bruits Lungs: - - decreased breath sounds in left mid and lower lung cherry, with few crackles. No wheezes. on room air. Cardiovascular: Regular rate, No murmurs Abdomen: Bowel Sounds Present, Soft, Non Tender, Non-Distended, No Hepato- splenomegaly Extremities: No clubbing, No cyanosis, No edema, Capillary Refill Less than 3 Seconds Skin: No rashes, No breakdown Musculoskeletal: No Tenderness to Palpation of Joints or Extremities Lymphatic: No Cervical, Supraclavicular, or Inguinal Adenopathy Neurological: Cranial nerves II-XII grossly intact, Neuro grossly intact, Motor Exam 5/5 strength throughout Psych/Mental Status: Normal Affect, Appropriate, Alert and oriented to time, place, person, mood and affect Patient is to follow-up with general surgery on outpatient basis for EGD and colonoscopy as needed and is also to follow-up with nephrology and pulmonology as well as a PCP. - Physical Exam Vitals/I&O's: Vital Signs Temp Pulse Resp BP Pulse Ox 98.2 F 62 16 165/54 H 97 02/25/20 08:01 02/25/20 08:13 02/25/20 08:01 02/25/20 08:01 02/25/20 08:01 Oxygen Flow Rate (L/min) 2 Oxygen Delivery Method Room Air Weight: 172 lb 2.896 oz Body Mass Index (BMI) 33.6 Finger Stick Blood Glucose 88 Intake and Output for Last 24 Hours 02/23/20 02/24/20 02/25/20 23:59 23:59 23:59 Intake Total 4595.0 / 4595.0 4615 / 4615 2175 / 2175 Output Total 300 / 300 2100 / 2100 200 / 200 Balance 4295.0 / 4295.0 2515 / 2515 1974 / 1974 Microbiology Past 72 Hours 02/23/20 01:40 Urine, Clean Catch Urine Culture - Final Culture exhibits no growth. 02/23/20 01:40 Urine, Clean Catch Legionella Antigen - Final 02/23/20 01:40 Urine, Clean Catch Streptococcus pneumoniae Antigen (M - Final 02/22/20 14:40 Stool Stool Occult Blood (ANTONIO) - Final Laboratory Results 02/24/20 17:12: POC Glucose 224 H 02/24/20 21:00: POC Glucose 254 H 02/25/20 01:20: Ur Random Sodium 45 02/25/20 06:21: POC Glucose 104 02/25/20 08:28: Sodium 139, Potassium 4.0, Chloride 111 H, Carbon Dioxide 20.0 L , BUN 55 H, Creatinine 2.29 H, Estim Creat Clear Calc 15.48, Est GFR (MDRD) Af Amer 27 L, Est GFR (MDRD) Non-Af 22 L, BUN/Creatinine Ratio 24.0 H, Glucose 101, Calcium 8.4 L, Phosphorus 5.0 H, Albumin 1.8 L 02/25/20 08:28: WBC 8.2, RBC 2.92 L, Hgb 9.0 L, Hct 27.4 L, MCV 93.8, MCH 30.8, MCHC 32.8, RDW Std Deviation 45.2 H, RDW Coeff of Kusum 13.2, Plt Count 286, MPV 10.9, Immature Gran % (Auto) 0.700, Neut % (Auto) 72.0 H, Lymph % (Auto) 16.4 L, [place] % (Auto) 7.5, Eos % (Auto) 2.8, Baso % (Auto) 0.6, Absolute Neuts (auto) 5.9, Absolute Lymphs (auto) 1.35, Nucleated RBC % 0 Current Medications Acetaminophen (Tylenol) 650 mg PO Q4H PRN PRN PRN Reason: Pain or Fever Atorvastatin Calcium (Lipitor) 10 mg PO QHS [facility] Last Admin: 02/24/20 21:05 Dose: 10 mg Documented by: Cyclobenzaprine HCl (Flexeril) 10 mg PO TID PRN PRN PRN Reason: MUSCLE SPASM Ergocalciferol (Vitamin D) 50,000 unit PO QWEEK [facility] Last Admin: 02/23/20 09:28 Dose: 50,000 unit Documented by: Ferrous Sulfate (Ferrous Sulfate) 325 mg PO 1200,1700 [facility] Fluticasone Propionate (Flonase Nasal [place]) 2 spray NASAL DAILY [facility] Last Admin: 02/25/20 08:13 Dose: 2 spray Documented by: Gabapentin (Neurontin) 200 mg PO BIDCM [facility] Last Admin: 02/25/20 08:13 Dose: 200 mg Documented by: Sodium Chloride () 1,000 mls @ 150 mls/hr IV .Q6H40M [facility] Last Admin: 02/25/20 08:12 Dose: 150 mls/hr Documented by: Ceftriaxone Sodium (Rocephin) 1 gm in 50 mls @ 100 mls/hr IV Q24 [facility] Last Infusion: 02/25/20 09:04 Dose: Infused Documented by: Azithromycin 500 mg/ Dextrose 255 mls @ 250 mls/hr IV Q24 [facility] Last Infusion: 02/25/20 10:51 Dose: Infused Documented by: Insulin Glargine (Lantus ([facility])) 29 units SC QHS [facility] Last Admin: 02/24/20 21:03 Dose: 29 units Documented by: Insulin Human Lispro (Humalog Kwikpen ([facility])) 0 unit SC [facility]; Protocol Last Admin: 02/25/20 08:01 Dose: Not Given Documented by: Isosorbide Mononitrate (Imdur) 30 mg PO DAILY [facility] Last Admin: 02/25/20 08:13 Dose: 30 mg Documented by: Lactobacillus Acidophilus (Acidophilus) 1 tablet PO QHS [facility] Last Admin: 02/24/20 21:05 Dose: 1 tablet Documented by: Latanoprost (Xalatan Opthalmic) 1 drop EACH EYE QHS [facility] Last Admin: 02/24/20 21:05 Dose: 1 drop Documented by: Loratadine (Claritin) 10 mg PO DAILY [facility] Last Admin: 02/25/20 08:13 Dose: 10 mg Documented by: Metoprolol Tartrate (Lopressor (Beta Nataliia)) 25 mg PO BID [facility] Last Admin: 02/25/20 08:13 Dose: 25 mg Documented by: Morphine Sulfate () 2 mg IV Q3H PRN PRN PRN Reason: pain 6-10/10 Nitroglycerin (Nitrostat) 0.4 mg SUBLINGUAL Q5M PRN PRN Reason: CARDIAC/CHEST PAIN Last Admin: 02/23/20 02:50 Dose: 0.4 mg Documented by: Ondansetron HCl (Zofran) 4 mg IV Q8H PRN PRN PRN Reason: NAUSEA/VOMITING Sodium Chloride () 10 - 40 ml IV UD PRN PRN Reason: SALINE FLUSH Trazodone HCl (Desyrel) 25 mg PO QHS [facility] Last Admin: 02/24/20 21:04 Dose: 25 mg Documented by: Discharge Diet: Low fat/ Low Cholesterol Discharge Activity: Return to Normal Activity Weight Bearing Status: Weight bearing as tolerated Call your doctor if you observe: Fever of 101 or Higher, Shortness of breath, Dizziness, Fainting spells, Swelling in the ankles, Chest pain Home Medications: Medications to take at Discharge Isosorbide Mononitrate [Isosorbide Mononitrate ER] 30 mg PO DAILY 10/09/15 Latanoprost 0.005% [Xalatan Opthalmic] 1 drop EACH EYE QHS 05/03/18 Insulin Lispro [Humalog KwikPen] 10 unit SUBCUT TIDCM 06/10/19 Famotidine 40 mg PO BID 06/29/19 Insulin Glargine [Lantus SoloStar Pen] 29 units SUBCUT QHS 06/29/19 traZODone [Desyrel] 25 mg PO QHS 06/29/19 Atorvastatin Calcium [Lipitor] 10 mg PO QHS 09/06/19 Ergocalciferol [Vitamin D] 50,000 unit PO QWEEK 09/06/19 Fexofenadine HCl 60 mg PO DAILY 09/06/19 Gabapentin [Neurontin] 200 mg PO BID #0 09/06/19 Lactobacillus Acidophilus [Acidophilus] 1 tab PO QHS 09/06/19 Amlodipine [Norvasc] 10 mg PO DAILY #30 tab 09/08/19 Metoprolol Tartrate [Lopressor (beta nataliia)] 25 mg PO BID #60 tab 09/08/19 Fluticasone 0.05% [Flonase Nasal [place]] 2 spray NASAL DAILY 09/24/19 Furosemide [Lasix] 40 mg PO DAILY 09/24/19 Potassium Chloride [Klor-Con M20] 20 meq PO TID 09/24/19 cycloBENZAPRine HCl [Flexeril] 10 mg PO TID PRN PRN #15 tab 12/23/19 Doxycycline 100 mg PO BID 7 Days #14 cap 02/25/20 Ferrous Sulfate 325 mg PO BIDCM #60 tab 02/25/20 Following Prescriptions Were Given to Patient: Doxycycline 100 mg PO BID 7 Days #14 cap Transmission Status: Received by [facility]/pharmacy #[id number] Ferrous Sulfate 325 mg PO BIDCM #60 tab Transmission Status: Received by [facility]/pharmacy #[id number] Primary Care Physician: Bailey Toribio MD [Primary Care Provider] - Please follow up with your Primary Care Physician in: 1-2 weeks Please Follow Up With: Heraclio Marrufo MD When: 1-2 weeks Please Follow Up With: Mario Velazco DO When: 1-2 weeks Please Follow Up With: Christine Steward DO When: 1-2 weeks Patient Instructions: Anemia, What Is Angina?, What Is Pneumonia?, Chronic Kidney Disease, Heart Attack Disposition: Home Minutes spent on discharge:: 45 Patient Condition:: Stable Medical Necessity - Tobacco Use Smoking Status: Former smoker Meaningful Use Info Meaningful Use Diagnoses (Choose all that apply): None applicable Inpatient E&M: 09837 Disch Hosp
--- NOTE | 2020-02-25 12:01 | CASEMGMT ---
Call received from jyoti Perez's [facility] sample case porter. Update provided on planned discharge for today. Ana states she will call patient after discharge for follow-up and encourage adherence. Nathalie Campo RN CM
--- NOTE | 2020-02-25 12:23 | NURSING ---
informed patient that we were waiting for followup appointments to be made by assistant corporate secretary for dc paperwork. patient states that she does not need appointments made. discharge paperwork reviewed with patient and . pt sat in chair with her arms crossed, pt very frustrated at this time. provided education and opportunity to ask questions, however patient stated that she had none. follow up appoitments made with Dr avalos, dr rapp, and dr abdi. no appointment made with dr kelley because pt wanting to leave [facility], however patient states that she already has an appt scheduled with him for next week.
[2020-02-25 15:26] LABS: ANTINUCLEAR ANTIBODIES DIRECT Negative (Negative)
[2020-02-25 16:08] LABS: Cytoplasmic Ab (C-ANCA) <1:20 titer (Neg:<1:20)
[2020-02-25 17:11] LABS: Perinuclear Ab (P-ANCA) <1:20 titer (Neg:<1:20)
--- NOTE | 2020-02-26 15:43 | CASEMGMT ---
ERICA TREVIÑO Discharge F/U Phone Call LACE: 15 Strata: 4 Discharge date: 02/25/2020 Call date: 02/26/2020 Call time: [phone] Attempted to reach pt without success at this time, unable to leave message for pt at this time. SStaten ERICA CM Admission dx: Intractable back pain, right hip pain
== END 2020-02-25 12:22 | disposition home or self-care (01) | DRG 682 ==
LOC: ED 17:54 → PCU 18:07
PROVIDERS: Internal Medicine Critical Care Medicine; Internal Medicine Nephrology; Admitting Provider Student in an Organized Health Care Education/Training Program; Emergency Provider Physician Assistant Medical; PCP Internal Medicine; Visit Provider Student in an Organized Health Care Education/Training Program
DX: N17.9 Acute kidney failure, unspecified (principal); J18.9 Pneumonia, unspecified organism; I13.0 Hypertensive heart and chronic kidney disease with heart failure and stage 1 through stage 4 chronic kidney disease, or unspecified chronic kidney disease; I50.32 Chronic diastolic (congestive) heart failure; J44.0 Chronic obstructive pulmonary disease with (acute) lower respiratory infection; R04.2 Hemoptysis; D50.9 Iron deficiency anemia, unspecified; N18.4 Chronic kidney disease, stage 4 (severe); E11.22 Type 2 diabetes mellitus with diabetic chronic kidney disease; D63.1 Anemia in chronic kidney disease; R09.02 Hypoxemia; E86.0 Dehydration; E11.65 Type 2 diabetes mellitus with hyperglycemia; E11.42 Type 2 diabetes mellitus with diabetic polyneuropathy; G40.909 Epilepsy, unspecified, not intractable, without status epilepticus; I25.10 Atherosclerotic heart disease of native coronary artery without angina pectoris; M06.9 Rheumatoid arthritis, unspecified; E78.5 Hyperlipidemia, unspecified; G25.81 Restless legs syndrome; G47.33 Obstructive sleep apnea (adult) (pediatric); F41.1 Generalized anxiety disorder; F44.81 Dissociative identity disorder; F31.9 Bipolar disorder, unspecified; K21.9 Gastro-esophageal reflux disease without esophagitis; E66.9 Obesity, unspecified; Z68.33 Body mass index [BMI] 33.0-33.9, adult; Z79.4 Long term (current) use of insulin; Z79.899 Other long term (current) drug therapy; Z86.14 Personal history of Methicillin resistant Staphylococcus aureus infection; Z86.73 Personal history of transient ischemic attack (TIA), and cerebral infarction without residual deficits; Z87.891 Personal history of nicotine dependence
CPT/HCPCS: 36415; 70450; 71045; 71250; 76770; 80048; 80069; 80076; 80307; 81001; 82274; 82570; 82728; 82962; 83540; 83550; 83690; 84300; 84484; 84540; 85014; 85018; 85025; 86038; 86225; 86235; 86256; 86850; 86900; 86901; 86920; 86922; 87086; 87449; 87635; 93005; 94799; 97162; 97166; 99285; J7030; J7040; P9016; A4216; J2405; J3490; U0003

== ENCOUNTER 2020-05-05 06:34 | Emergency (ER) | payer MEDICARE, MEDICAID, SELFPAY ==
[2020-02-22 18:57] VITALS: BMI 33.6
[2020-05-05 06:35] VITALS: BP 159/60; PULSE 57; RESP 20; TEMP 35.9; O2SAT 99; BMI 37.8
--- NOTE | 2020-05-05 06:36 | RAD_ITS ---
STUDY: X-RAY CHEST REASON FOR EXAM: Female, 74 years old patient with chest injury after fall. TECHNIQUE: Single AP portable view of the chest. COMPARISON: CT of the chest dated 02/23/2020. FINDINGS: Cardiac monitoring leads are present. The lungs are underexpanded with crowding of bronchovascular markings and obscuration of the lung bases. There is no demonstrated pleural abnormality. There is mild cardiac enlargement. Normal mediastinum and elva. Normal visualized pulmonary arteries. There is atherosclerotic calcification of the thoracic aorta. There is demineralization of the osseous structures. Normal visualized ribs, clavicles, and shoulders. There is no demonstrated abnormality of the visualized soft tissue structures of the upper abdomen. RAD/Chest 1 View (Portable) IMPRESSION: Cardiomegaly without obvious acute cardiopulmonary disease. Electronically Signed: Venice Dao MD at 7:12 EST , Service support ,
--- NOTE | 2020-05-05 06:36 | CT_ITS ---
STUDY: CT CERVICAL SPINE WITHOUT CONTRAST REASON FOR EXAM: Female, 74 years old. Fell in bathroom, unresponsive, left eye hematoma. Hx CVA, diabetes, hypertension, seizures, stage 3 kidney disease. RADIATION DOSAGE (If Supplied By Facility): CTDIvol = ( 25.27 ) mGy, DLP = ( 509.55 ) mGycm TECHNIQUE: High resolution transaxial imaging was performed without contrast material. Sagittal and coronal images were reconstructed. Individualized dose optimization techniques were used for this CT. COMPARISON: 04/24/2018 FINDINGS: Normal craniovertebral junction. Normal anterior atlantoaxial articulation. Normal odontoid process. Normal cervical lordosis. Normal vertebral bodies and posterior osseous elements. C2-3: Normal endplates. Normal disc height and morphology. Normal central canal and intervertebral neuroforamina. C3-4: Normal endplates. Normal disc height and morphology. Normal central canal and intervertebral neuroforamina. C4-5: Normal endplates. Normal disc height and morphology. Normal central canal and intervertebral neuroforamina. C5-6: Normal endplates. Normal disc height and morphology. Normal central canal and intervertebral neuroforamina. C6-7: Normal endplates. Normal disc height and morphology. Normal central canal and intervertebral neuroforamina. C7-T1: Normal endplates. Normal disc height and morphology. Normal central canal and intervertebral neuroforamina. Normal visualized soft tissue structures. CT/Spine Cervical without Contras IMPRESSION: Normal unenhanced CT examination of the cervical spine. Electronically Signed: Flo Villalta MD at 7:09 EST , Service support ,
--- NOTE | 2020-05-05 06:36 | EKG12_ITS ---
Test Reason : FALL Blood Pressure : / mmHG Vent. Rate : 054 BPM Atrial Rate : 054 BPM P-R Int : 134 ms QRS Dur : 088 ms QT Int : 464 ms P-R-T Axes : 049 029 057 degrees QTc Int : 440 ms Sinus bradycardia Otherwise normal ECG Confirmed by DUTCH BOWMAN, ANTONIA ([id number]), film and video editor JUAN NEELY ([id number]) on 05/07/2020 11:35:05 AM Referred By: IVONNE Confirmed By:ANTONIA JUDD MD
--- NOTE | 2020-05-05 06:37 | CT_ITS ---
STUDY: CT BRAIN WITHOUT CONTRAST REASON FOR EXAM: Female, 74 years old patient found unresponsive after fall in bathroom. Patient has a left-sided eye hematoma. Past medical history of CVA, diabetes, hypertension, seizures, and stage 3 kidney disease. RADIATION DOSAGE (If Supplied By Facility): CTDIvol = ( 45 ) mGy, DLP = ( 748.30 ) mGycm TECHNIQUE: Transaxial CT imaging of the brain was performed without administration of intravenous contrast material. Multiplanar reformations are submitted for interpretation. Individualized dose optimization techniques were used for this CT. COMPARISON: CT of the head dated 02/22/2020. FINDINGS: There is a moderately large left paramedian frontal and forehead soft tissue contusion. Normal calvarium. Normal size ventricles and extra-axial spaces for the patient''s age. There are areas of decreased attenuation within the white matter tracts of the supratentorial brain, consistent with microvascular disease changes. Normal basal ganglia and thalami. Normal brainstem. There is mild cerebellar atrophy. There is no intracranial hemorrhage. There is mild atherosclerotic calcification of the intracranial arteries. Normal visualized paranasal sinuses. CT/Brain/Head without Contrast IMPRESSION: 1. Chronic involutional changes of the brain. 2. No CT evidence of acute intracranial hemorrhage. 3. Left paramedian forehead and frontal scalp contusion and hematoma. Electronically Signed: Venice Dao MD at 7:10 EST , Service support ,
--- NOTE | 2020-05-05 06:39 | ED.DCSUM_ITS ---
History of Present Illness Chief Complaint: Fall Informant: Patient, [employer] Onset: Today Context: Sudden Onset Timing: Continuous Current Severity: Moderate Maximum Severity: Severe Narrative: The patient is a 74-year-old female who presents to the emergency department after a fall. Patient was apparently in her bathroom tonight. History is hard to gather from the patient. She thinks that she slipped and fell. She did strike her head. She was unable to get up. On squad arrival, they did note a large hematoma over her left frontal forehead. In route, the patient was more confused. She states that she has pain in her head and in her knees. She is unsure if she lost consciousness. She does not think she takes any anticoagulants. Prior similar symptoms: No Recent Illness/Hospitalization: No Past Medical History - Allergies and Home Meds Allergies/Adverse Reactions: Allergies ciprofloxacin [From Cipro] Allergy (Verified 05/05/20 06:54) Rash codeine Allergy (Verified 05/05/20 06:54) Shortness of breath Penicillins Allergy (Verified 05/05/20 06:54) Hives CILLINS Allergy (Uncoded 05/05/20 06:54) Unknown Primary Care Physician: Bailey Toribio MD [Primary Care Provider] - Prior records reviewed: Yes Past Medical History: - - Anemia, hypertension, hyperlipidemia, prior stroke without residual deficit Surgical History: appendectomy, cataract, cholecystectomy, hysterectomy, tonsillectomy, - - Glaucoma, abdominal surgery for cyst. Smoking Status: Former smoker - Family History Maternal Family History: Reports: Cancer, Diabetes, Heart Disease, Hypertension Paternal Family History: Reports: Cancer, Heart Disease Review of Systems ROS: Unable to Obtain Physical Exam Vital Signs/Narrative: Vital Signs Temp Pulse Resp BP Pulse Ox 05/05/20 06:35 96.6 F L 57 L 20 H 159/60 H 99 Inital Vital Signs reviewed: Yes General: Well nourished, Well developed Head: Normocephalic, Trauma - Large hematoma over left eye. Subconjunctival hemorrhage. Pupils reactive. Midface stable. Eyes: Perrl, EOMI ENT: Moist mucous membranes, No rhinorrhea Neck: Supple, Nontender Cardiovascular: Regular rate, Regular rhythm, No murmurs Respiratory: No distress, CTA bilaterally, Chest nontender Abdomen: Soft, Nontender, Nondistended, Normal bowel sounds Back: Nontender, Normal Inspection Extremities: No edema, Tenderness - Abrasions over both knees. Pelvis stable. Skin: Normal color, No rash Neurological: Alert, Cranial nerves II-XII grossly intact, Normal Strength, Normal Sensation Psychological: Normal affect, Normal Mood Diagnostic/Tx/Re-eval Abnormal Lab Results 05/05/20 05/05/20 05/05/20 06:27 06:27 06:27 WBC 6.9 RBC 2.90 L Hgb 9.0 L Hct 28.7 L MCV 99.0 MCH 31.0 MCHC 31.4 L RDW Std Deviation 54.2 H RDW Coeff of Kusum 15.0 H Plt Count 172 MPV 10.5 Immature Gran % (Auto) 0.400 Neut % (Auto) 59.2 Lymph % (Auto) 25.2 [place] % (Auto) 11.3 H Eos % (Auto) 3.2 Baso % (Auto) 0.7 Absolute Neuts (auto) 4.1 Absolute Lymphs (auto) 1.74 Nucleated RBC % 0 PT 13.8 INR 1.1 APTT 29.3 Sodium 141 Potassium 4.6 Chloride 105 Carbon Dioxide 28.0 Anion Gap 8 BUN 90 H Creatinine 3.44 H Estim Creat Clear Calc 10.31 Est GFR (MDRD) Af Amer 17 L Est GFR (MDRD) Non-Af 14 L BUN/Creatinine Ratio 26.2 H Glucose 81 Calcium 8.6 - Medical Decision Making Patient presents with head injury after fall. She does have subconjunctival hemorrhage, along with hematoma over her left forehead. She was sent immediately for CT of the head and C-spine. Formal reads are currently pending. I do not see large intraparenchymal hemorrhage, or subdural hemorrhage. The patient is also complaining of pain in both knees. X-rays of the pelvis and knees are added. Labs will be performed. Results to be followed by oncoming physician. The patient does have waxing and waning mental status. She does not become apneic. However, she will have moments where she is less responsive and moments of clarity. With her significant head injury, I do feel that she is going require transfer to a higher level of care. I discussed this with the patient. She has been hospitalized at [facility] before. Impression 1. Closed head injury with loss of consciousness 2. Delirium 3. Facial contusion 4. Subconjunctival hemorrhage ED Disposition - Plan for ED Patient: Referrals: Bailey Toribio MD [Primary Care Provider] -
[2020-05-05 06:44] LABS: Absolute Lymphocyte Count 1.74 X10^3/uL (0.83-4.51); Absolute Neutrophil Count 4.1 X10^3/uL (2.0-7.7); Basophil# 0.05 X10^3/uL; Basophil% 0.7 % (0-1); Eosinophil# 0.22 X10^3/uL; Eosinophils% 3.2 % (0-5); Hematocrit 28.7 % (37-47); Lymphocyte # 1.74 X10^3/ul (4.0); Lymphocyte % 25.2 % (19-41); Mean Corp Hgb Conc 31.4 g/dL (32-36); Mean Platelet Vol. 10.5 fl (6.2-12.0); Monocyte# 0.78 X10^3/uL; Monocyte% 11.3 % (0-10); NRBC Flagged by Analyzer 0 % (0-5); Neutrophil # 4.08 X10^3/uL (2.7-7.7); Neutrophil % 59.2 % (47-70); Platelet Count 172 K/mm3 (150-450); RBC Distribution Width SD 54.2 fl (35.1-43.9); White Blood Count 6.9 K/mm3 (4.4-11.0)
[2020-05-05 06:55] LABS: International Normalized Ratio 1.1; Prothrombin Time (Protime)PT. 13.8 SECONDS (11.7-14.9)
[2020-05-05 06:56] LABS: Partial Thromboplast Time 29.3 Seconds (24.1-36.2)
[2020-05-05 06:59] VITALS: BP 159/97; PULSE 54; RESP 12; O2SAT 99
--- NOTE | 2020-05-05 07:00 | ED.RN ---
attempted to call daughter at this time unable to leave message
[2020-05-05 07:01] LABS: Anion Gap 8 (5-15); BUN 90 mg/dL (7-18); BUN/Creat Ratio 26.2 RATIO (10-20); Calcium,Total 8.6 mg/dL (8.5-10.1); Chloride 105 mmol/L (98-107); Creatinine, Serum 3.44 mg/dL (0.55-1.02); EST Glomerular Filtration Rate 14 mL/min (>60); Est Glom Filt Rate - Afr Amer 17 mL/min (>60); Estimated Creatinine Clearance 10.31 ml/min; Glucose 81 mg/dL (74-106); Potassium 4.6 mmol/L (3.5-5.1); Sodium Level 141 mmol/L (136-145)
--- NOTE | 2020-05-05 07:02 | NURSING ---
CALLED JAKE STEIN ABOUT TRANSFER. DR CHASE
--- NOTE | 2020-05-05 07:10 | NURSING ---
CALLED PHYSICANS. ETA IS 30 TO 40 MIN
[2020-05-05 07:11] VITALS: BP 169/57; PULSE 57; RESP 14; O2SAT 95
--- NOTE | 2020-05-05 07:15 | RAD_ITS ---
STUDY: X-RAY - LEFT KNEE REASON FOR EXAM: Left knee injury from a fall. TECHNIQUE: 2 view(s) of the knee. COMPARISON: Radiographs 04/24/2018. FINDINGS: Normal visualized distal femur. Normal visualized proximal tibia and fibula. Normal proximal tibiofibular articulation. Normal medial femorotibial compartment. Normal lateral femorotibial compartment. Normal patellofemoral articulation. There is chondrocalcinosis in the medial and lateral menisci and in the proximal tibiofibular articulation. There are small soft tissue calcifications anterior to the distal quadriceps tendon and anterior to the proximal tibial diaphysis. There is vascular calcification. RAD/Knee 1 or 2 Views IMPRESSION: Chondrocalcinosis. No demonstrated fracture. Electronically Signed: Wero Gutierrez MD at 7:48 EST Tel , Service support ,
--- NOTE | 2020-05-05 07:15 | RAD_ITS ---
STUDY: X-RAY - PELVIS REASON FOR EXAM: Female, 74 years old. Injury, pt. Fell TECHNIQUE: One view of the pelvis was obtained. COMPARISON: None. FINDINGS: There is a non-specific bowel gas pattern. Surgical clips are seen in the pelvis. Normal bilateral iliac wings, sacroiliac joints and visualized sacrum. Normal visualized bilateral superior and inferior pubic rami. There are degenerative changes of the pubic symphysis with articular narrowing and sclerosis. Normal ischial tuberosities. Normal visualized right femoral head. There is osteoarthritic spur formation of the right acetabular rim. There is mild articular joint space narrowing of the right hip. Normal visualized left femoral head. There is osteoarthritic spur formation of the left acetabular rim. There is mild articular joint space narrowing of the left hip. RAD/Pelvis 1 or 2 Views IMPRESSION: Degenerative changes of both hip joints. Electronically Signed: Baljeet Chen, at 8:22 EST , Service support ,
--- NOTE | 2020-05-05 07:15 | RAD_ITS ---
STUDY: X-RAY - RIGHT KNEE REASON FOR EXAM: Right knee injury from a fall. TECHNIQUE: 2 view(s) of the knee. COMPARISON: Radiographs 04/24/2018. FINDINGS: Normal visualized distal femur. Normal visualized proximal tibia and fibula. Normal proximal tibiofibular articulation. There is mild to moderate joint space narrowing of the medial femorotibial compartment. Normal lateral femorotibial compartment. Normal patellofemoral articulation. There is chondrocalcinosis, especially in the menisci. There is mild vascular calcification. RAD/Knee 1 or 2 Views IMPRESSION: Arthrosis of the medial femorotibial compartment. Chondrocalcinosis. No demonstrated fracture. Electronically Signed: Wero Gutierrez MD at 7:58 EST Tel , Service support ,
[2020-05-05] MEDS: 0.9% Normal Saline 1,000 ML 999 ML IV (07:30)
[2020-05-05 07:31] VITALS: BP 153/59; PULSE 73; RESP 12; TEMP 36.8; O2SAT 100
[2020-05-05 07:31] LABS: CPK Total, Creatine Kinase 123 U/L (26-192)
[2020-05-05 08:13] LABS: Bacteria 0 SEEN /hpf (None Seen); Mucous, Urine 0 SEEN /hpf (<or=2+); Red Blood Cells-Urine 0 SEEN /hpf (0-5); Squamous Epithelial Cells - UA 0 SEEN /hpf (5-10); White Blood Cells 0 SEEN /hpf (0-5)
[2020-05-05 08:15] VITALS: BP 153/53; PULSE 55; RESP 17; O2SAT 99
[2020-05-05 08:15] LABS: Color, Urine Straw (Yellow); Glucose, Dipstick Normal (Normal); Ketone-Dipstick Negative (Negative); Leukocyte Esterase-Dipstick Negative /ul (Negative); Nitrite-Dipstick Negative (Negative); Occult Blood-Urine 10 /ul (Negative); Protein-Dipstick 30 mg/dl (Negative); Specific Gravity, Urine 1.015 (1.002-1.030); Urine Bilirubin Dipstick Negative (Negative); Urine Clarity Clear (Clear); Urine Urobilinogen Normal (Normal)
--- NOTE | 2020-05-05 08:15 | ED.RN ---
PHYSICIANS HERE TO TRANSPORT PATIENT, CARE AND REPORT TO THEM. PATIENT STATUS UNCHANGED AT THIS TIME.
[2020-05-05 08:22] LABS: Hyaline Cast 0-5 SEEN /lpf (0-5)
== END 2020-05-05 08:26 | disposition short-term general hospital (02) ==
PROVIDERS: Emergency Provider Emergency Medicine; PCP Internal Medicine
DX: S06.9X9A Unspecified intracranial injury with loss of consciousness of unspecified duration, initial encounter (principal); R41.0 Disorientation, unspecified; S00.83XA Contusion of other part of head, initial encounter; H11.30 Conjunctival hemorrhage, unspecified eye; E78.5 Hyperlipidemia, unspecified; E11.9 Type 2 diabetes mellitus without complications; I10 Essential (primary) hypertension; Z86.73 Personal history of transient ischemic attack (TIA), and cerebral infarction without residual deficits; Z79.4 Long term (current) use of insulin; W19.XXXA Unspecified fall, initial encounter; Z87.891 Personal history of nicotine dependence
CPT/HCPCS: 70450; 71045; 72125; 72170; 73560; 80048; 81001; 82550; 85025; 85610; 85730; 93005; 99285; J7030; A4216

== ENCOUNTER 2020-05-11 17:09 | Emergency (ER) | payer MEDICARE, MEDICAID, SELFPAY ==
[2020-05-11 17:10] VITALS: BP 172/88; PULSE 60; RESP 14; TEMP 36; O2SAT 99; BMI 33.5
--- NOTE | 2020-05-11 17:32 | ED.DCSUM_ITS ---
History of Present Illness Chief Complaint: Lower Extremity Injury Informant: Patient Narrative: Patient states that about a week ago she sustained a fall. She was seen initially in this emergency department then transferred to trauma at [facility]. She was subsequently discharged last . She states that she has had swelling that is come and gone in the left leg but about 1 hour ago became severely painful and more swollen. She went to urgent care and out of concern for DVT sent her to the emergency department. Patient does not wish to speak with words but rather point and have me gas. I informed her I would need her to speak in order for me to understand and care for her. - Past Medical History (1) Anemia Status: Chronic (2) Sciatica Status: Chronic (3) Bipolar disorder Status: Chronic (4) Coronary artery disease Status: Chronic (5) Depression Status: Chronic (6) Diabetes type 2, uncontrolled Status: Chronic (7) Generalized anxiety disorder Status: Chronic (8) Hyperlipidemia Status: Chronic (9) Hypertension Status: Chronic (10) Multiple personality disorder Status: Chronic (11) Restless legs syndrome Status: Chronic (12) Rheumatoid arthritis Status: Chronic (13) Seizure disorder Status: Chronic (14) 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 Comment: nonhealing MRSA diabetic ulcer abdominal wall Past Medical History - Allergies and Home Meds Allergies/Adverse Reactions: Allergies ciprofloxacin [From Cipro] Allergy (Verified 05/11/20 17:10) Rash codeine Allergy (Verified 05/11/20 17:10) Shortness of breath Penicillins Allergy (Verified 05/11/20 17:10) Hives CILLINS Allergy (Uncoded 05/11/20 17:10) Unknown Primary Care Physician: Bailey Toribio MD [Primary Care Provider] - Surgical History: appendectomy, cataract, cholecystectomy, hysterectomy, tonsillectomy, - - Glaucoma, abdominal surgery for cyst. Smoking Status: Never smoker - Family History Maternal Family History: Reports: Cancer, Diabetes, Heart Disease, Hypertension Paternal Family History: Reports: Cancer, Heart Disease Review of Systems General: Denies: Chills, Fever, Sweats Eyes: Denies: Visual changes - bilaterally, Diplopia ENT: Reports: - - Patient with pain from fall. Denies: Rhinorrhea, Sore throat Cardiovascular: Denies: Chest pain, Palpitations Respiratory: Denies: Dyspnea, Cough, Dyspnea on exertion Gastrointestinal: Denies: Abdominal pain, Nausea, Vomiting, Diarrhea, Melena, Hematochezia Genitourinary: Denies: Dysuria, Hematuria, Frequency Musculoskeletal: Reports: Swelling, Extremity Pain. Denies: Back pain Skin: Denies: Rash, Wounds Neurological: Denies: Headache, Weakness, Numbness Physical Exam Vital Signs/Narrative: Vital Signs Temp Pulse Resp BP Pulse Ox 05/11/20 17:10 96.8 F L 60 14 172/88 H 99 Inital Vital Signs reviewed: Yes General: Well nourished, Well developed, Obese, No Acute Distress Head: Normocephalic, Atraumatic Eyes: Perrl, EOMI ENT: Moist mucous membranes, No rhinorrhea Neck: Supple, Nontender Cardiovascular: Regular rate, Regular rhythm, No murmurs Respiratory: No distress, CTA bilaterally, Chest nontender Abdomen: Soft, Nontender, Nondistended, Normal bowel sounds Back: Nontender, Normal Inspection Extremities: Tenderness, Edema - The skin appears pink with good capillary refill. There is edema from mid thigh to and involving the foot. No cerulea dolens or albicans. There is some ecchymosis over the medial calf. There is an abrasion to the anterior knee. Skin: Normal color, No rash Neurological: Alert, Oriented x3, Cranial nerves II-XII grossly intact, Normal Strength, Normal Sensation Psychological: Depressed, Tearful Diagnostic/Tx/Re-eval - Medical Decision Making Duplex ultrasound was negative for DVT. I think the swelling is most likely due to the trauma of the leg. On repeat examination she is talking just fine to her on the phone. She is not crying. I do not see any evidence of compartment syndromes. Skin is unchanged and appears normal. I would encourage the per patient to exercise the leg. She has several follow-up appointments upcoming. I can write for some pain medication. ED Disposition - Plan for ED Patient: Disposition: Home or Assisted Living Diagnosis: Left leg swelling Instructions: ED Hematoma Prescriptions: Hydrocodone Bitart/Apap 5-325 [Heath 5MG-325MG] 1 tab PO Q6H PRN PRN 3 Days #12 tab PRN Reason: Pain Prescription Printed Referrals: Bailey Toribio MD [Primary Care Provider] - As soon as possible
[2020-05-11] MEDS: HYDROcodone Bitartrate/Apap 5/325 Tablet PO (17:39)
--- NOTE | 2020-05-11 17:57 | US_ITS ---
STUDY: VENOUS DOPPLER ULTRASOUND - LEFT LOWER EXTREMITY REASON FOR EXAM: Female, 74 years old. LT LEG EDEMA/ PAIN TECHNIQUE: Ultrasound evaluation of the deep vein system to include berg-scale imaging and compression was performed. Berg-scale imaging and Doppler sonographic evaluation, including duplex spectral analysis and qualitative color flow sonography, was performed. COMPARISON: None. FINDINGS: Common Femoral Vein: Normal compression, spontaneity and augmentation. Normal color Doppler. Common Femoral Vein/Greater Saphenous Junction: Normal compression, spontaneity and augmentation. Normal color Doppler. Deep Femoral Vein: Normal compression, spontaneity and augmentation. Normal color Doppler. Femoral Proximal: Normal compression, spontaneity and augmentation. Normal color Doppler. Femoral Middle: Normal compression, spontaneity and augmentation. Normal color Doppler. Femoral Distal: Normal compression, spontaneity and augmentation. Normal color Doppler. Popliteal Vein: Normal compression, spontaneity and augmentation. Normal color Doppler. Posterior Tibial Vein: Normal compression, spontaneity and augmentation. Normal color Doppler. Peroneal Vein: Normal compression, spontaneity and augmentation. Normal color Doppler. US/Venous Duplex Imag/Limited/Uni IMPRESSION: Normal venous Doppler ultrasound of the lower extremity. Electronically Signed: Neil Grant MD at 19:42 EST , Service support ,
[2020-05-11 20:07] VITALS: BP 195/72; PULSE 68; RESP 16
== END 2020-05-11 20:09 | disposition home or self-care (01) ==
PROVIDERS: Emergency Provider Emergency Medicine; PCP Internal Medicine
DX: M79.89 Other specified soft tissue disorders (principal); S80.12XA Contusion of left lower leg, initial encounter; X58.XXXA Exposure to other specified factors, initial encounter; Y93.9 Activity, unspecified; Y92.9 Unspecified place or not applicable; Y99.9 Unspecified external cause status; I25.10 Atherosclerotic heart disease of native coronary artery without angina pectoris; E11.622 Type 2 diabetes mellitus with other skin ulcer; L98.499 Non-pressure chronic ulcer of skin of other sites with unspecified severity; I10 Essential (primary) hypertension; G40.909 Epilepsy, unspecified, not intractable, without status epilepticus; D64.9 Anemia, unspecified; E78.5 Hyperlipidemia, unspecified; G25.81 Restless legs syndrome; M06.9 Rheumatoid arthritis, unspecified; F44.81 Dissociative identity disorder; F41.1 Generalized anxiety disorder; F31.9 Bipolar disorder, unspecified; E66.9 Obesity, unspecified; Z79.4 Long term (current) use of insulin; Z79.899 Other long term (current) drug therapy
CPT/HCPCS: 93971; 99282

== ENCOUNTER → 2020-07-15 | Outpatient (CLI) | payer MEDICARE, MEDICAID, SELFPAY ==
[2020-07-15] VITALS (7 sets, daily range): BP systolic 120–175; BP diastolic 55–78; PULSE 58–62; RESP 16; TEMP 35.8–36.6; O2SAT 96–100; BMI 42.5
[2020-07-15] MEDS: Furosemide 20 MG/2 ML VIAL IV ×2 (08:47→15:51)
[2020-07-15] MEDS: proMETHazine 25 MG Tablet PO (08:54)
== END | disposition home or self-care (01) ==
LOC: MEDOUTP 07:57
PROVIDERS: PCP Internal Medicine; Referring Provider Internal Medicine; Visit Provider Internal Medicine
DX: D64.9 Anemia, unspecified (principal); I50.9 Heart failure, unspecified
CPT/HCPCS: 36415; 36430; 86850; 86900; 86901; 86920; 86922; J7040; P9016; A4216; J1940

== ENCOUNTER 2020-08-17 16:00 | Emergency (ER) | payer MEDICARE, MEDICAID, SELFPAY ==
[2020-07-15 08:11] VITALS: BMI 42.5
[2020-08-17] VITALS (7 sets, daily range): BP systolic 131–164; BP diastolic 53–68; PULSE 51–83; RESP 14–18; TEMP 35.8–36; O2SAT 95–99; BMI 38.4
--- NOTE | 2020-08-17 16:07 | CT_ITS ---
STUDY: CT BRAIN WITHOUT CONTRAST REASON FOR EXAM: Female, 74 years old. ALTERED MENTAL STATUS, HX-SZ,CVA, HAS PUSSY DISCHARGE FROM NAVEL, SURG-IBIS, TUBAL, APPY, HYYSTER, EXPLORATORY LAPS, PANICULECTOMY, TONSILS, CATARACTS, GLAUCOMA, ABD CYST, COPD, EMPHYSEMA, CKD STAGE 3 RADIATION DOSAGE (If Supplied By Facility): CTDIvol = ( 44.99 ) mGy, DLP = ( 745.49 ) mGycm TECHNIQUE: Transaxial CT imaging of the brain was performed without administration of intravenous contrast material. Individualized dose optimization techniques were used for this CT. COMPARISON: No relevant priors. FINDINGS: Normal soft tissue structures. Normal calvarium. Normal size ventricles and extra-axial spaces for the patient''s age. Normal white matter tracts of the cerebral hemispheres. Normal basal ganglia and thalami. Normal brainstem. Normal cerebellum. There is no intracranial hemorrhage. There are no findings of an acute ischemic infarction. Mucosal thickening in the left ethmoid sinus. CT/Brain/Head without Contrast IMPRESSION: No acute intracranial pathology of the brain. Electronically Signed: Tao Simpson DO at 16:36 EST Tel [phone], Service support ,
--- NOTE | 2020-08-17 16:07 | EKG12_ITS ---
Test Reason : STROKE Blood Pressure : / mmHG Vent. Rate : 063 BPM Atrial Rate : 063 BPM P-R Int : 148 ms QRS Dur : 076 ms QT Int : 390 ms P-R-T Axes : 022 044 076 degrees QTc Int : 399 ms Normal sinus rhythm Low Voltage QRS Nonspecific T wave abnormality Abnormal ECG Confirmed by ANGELA BOWMAN, SANTHOSH ([id number]), newspaper or periodical editor JUAN NEELY ([id number]) on 08/20/2020 1:41:50 PM Referred By: JUAN Confirmed By:SANTHOSH MILLER MD
--- NOTE | 2020-08-17 16:09 | CT_ITS ---
STUDY: CT ABDOMEN AND PELVIS WITHOUT CONTRAST REASON FOR EXAM: Female, 74 years old. ALTERED MENTAL STATUS, HX-SZ,CVA, HAS PUSSY DISCHARGE FROM NAVEL, SURG-IBIS, TUBAL, APPY, HYYSTER, EXPLORATORY LAPS, PANICULECTOMY, TONSILS, CATARACTS, GLAUCOMA, ABD CYST, COPD, EMPHYSEMA, CKD STAGE 3 RADIATION DOSAGE (If Supplied By Facility): CTDIvol = ( 23.97 ) mGy, DLP = ( 1185.62 ) mGycm TECHNIQUE: Transaxial images were obtained from the dome of the diaphragm to the symphysis pubis without oral contrast, and without intravenous contrast. Sagittal and coronal images were reconstructed. Individualized dose optimization techniques were used for this CT. COMPARISON: None. FINDINGS: The visualized lung bases demonstrate pleural effusions with basilar consolidation/atelectasis, right more than left. Right hilar granulomatous calcifications. The visualized portions of the heart are within normal limits. Normal liver. Status post cholecystectomy. No significant dilatation of the extrahepatic biliary system. Normal spleen. Normal pancreas. Normal bilateral adrenal glands. Normal right kidney. Normal left kidney. Normal visualized stomach. Normal small intestine. Mild diverticulosis of the colon. The appendix is not visualized. Calcified abdominal aorta. Normal inferior vena cava. Normal retroperitoneum. Normal urinary bladder. Generalized subcutaneous edema of the abdominal wall. There is mild skin thickening noted at the suprapubic area. Degenerative vertebral changes. CT/Abdomen/Pelvis without Cont IMPRESSION: Generalized subcutaneous edema of the abdominal wall. There is mild skin thickening noted at the suprapubic area. Mild colonic diverticulosis. Bilateral pleural effusions, right more than left. Electronically Signed: Tao Simpson DO at 16:47 EST Tel [phone], Service support ,
--- NOTE | 2020-08-17 16:14 | ED.RN ---
PT MEDICAL HX VERIFIED BY GABRIELE ROGERS. UNABLE TO CONTACT DELANEY CERNA AT THIS TIME.
[2020-08-17 16:15] LABS: Absolute Lymphocyte Count 0.63 X10^3/uL (0.83-4.51); Absolute Neutrophil Count 5.9 X10^3/uL (2.0-7.7); Basophil# 0.05 X10^3/uL; Basophil% 0.7 % (0-1); Eosinophil# 0.14 X10^3/uL; Eosinophils% 1.9 % (0-5); Hematocrit 34.4 % (37-47); Hemoglobin 11.6 g/dL (12.0-15.0); Lymphocyte # 0.63 X10^3/ul (4.0); Lymphocyte % 8.5 % (19-41); Mean Corp Hgb Conc 33.7 g/dL (32-36); Mean Corpuscular Hgb 31.4 pg (27.0-32.0); Mean Platelet Vol. 11.3 fl (6.2-12.0); Monocyte# 0.65 X10^3/uL; Monocyte% 8.8 % (0-10); NRBC Flagged by Analyzer 0 % (0-5); Neutrophil # 5.89 X10^3/uL (2.7-7.7); Neutrophil % 79.8 % (47-70); Platelet Count 112 K/mm3 (150-450); RBC Distribution Width CV 13.6 % (11.6-14.6); RBC Distribution Width SD 46.4 fl (35.1-43.9); White Blood Count 7.4 K/mm3 (4.4-11.0)
--- NOTE | 2020-08-17 16:18 | ED.VIS.GEN ---
History of Present Illness Chief Complaint: Weakness Informant: Radio Division Officer Onset: Today Narrative: Patient brought in by EMS as possible stroke alert. EMS states they were called to the home for lift assist. At that time she was alert and talking to them, then had an episode where she stared off and would not respond. After short time she would begin to answer some questions but was more lethargic. reportedly told them that she had been more weak since last evening. Blood sugar was 584 for EMS. - Past Medical History (1) Bipolar disorder Status: Chronic (2) COPD (chronic obstructive pulmonary disease) Status: Chronic (3) Cerebrovascular disease Status: Chronic Comment: Status post acute ischemic stroke No residual deficit (4) Coronary artery disease Status: Chronic (5) Depression Status: Chronic (6) Diabetes type 2, uncontrolled Status: Chronic (7) Generalized anxiety disorder Status: Chronic (8) Hyperlipidemia Status: Chronic (9) Hypertension Status: Chronic (10) Multiple personality disorder Status: Chronic (11) Peripheral neuropathy Status: Chronic (12) Restless legs syndrome Status: Chronic (13) Rheumatoid arthritis Status: Chronic (14) Seizure disorder Status: Chronic (15) Stroke Status: Chronic (16) 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 Comment: nonhealing MRSA diabetic ulcer abdominal wall Past Medical History - Allergies and Home Meds Allergies/Adverse Reactions: Allergies ciprofloxacin [From Cipro] Allergy (Verified 08/17/20 16:01) Rash codeine Allergy (Verified 08/17/20 16:01) Shortness of breath Penicillins Allergy (Verified 08/17/20 16:01) Hives CILLINS Allergy (Uncoded 08/17/20 16:01) Unknown Primary Care Physician: Bailey Toribio MD [Primary Care Provider] - Surgical History: appendectomy, cataract, cholecystectomy, hysterectomy, tonsillectomy, - - Glaucoma, abdominal surgery for cyst. Lives: Spouse/ Significant Other Smoking Status: Former smoker - Family History Maternal Family History: Reports: Cancer, Diabetes, Heart Disease, Hypertension Paternal Family History: Reports: Cancer, Heart Disease Review of Systems ROS: Unable to Obtain - Patient able to state her name and follow simple commands but not answering other questions Physical Exam Vital Signs/Narrative: Vital Signs Temp Pulse Resp BP Pulse Ox 08/17/20 16:01 96.4 F L 64 17 164/66 H 96 Inital Vital Signs reviewed: Yes General: Well nourished, Well developed Head: Normocephalic Eyes: Perrl, EOMI ENT: Moist mucous membranes Cardiovascular: Regular rate, Regular rhythm Respiratory: No distress, CTA bilaterally Abdomen: Soft, Nontender, - - Periumbilical superficial skin ulceration with mild bleeding. Extremities: Nontender Skin: Normal color Neurological: - - Patient will respond to voice. She will answer when asked her name. She will follow simple commands. Diagnostic/Tx/Re-eval Impressions Brain CT 08/17/20 16:07 IMPRESSION: No acute intracranial pathology of the brain. Electronically Signed: Tao Simpson DO at 16:36 EST Tel [phone], Service support , Abdomen/Pelvis CT 08/17/20 16:09 IMPRESSION: Generalized subcutaneous edema of the abdominal wall. There is mild skin thickening noted at the suprapubic area. Mild colonic diverticulosis. Bilateral pleural effusions, right more than left. Electronically Signed: Tao Simpson DO at 16:47 EST Tel [phone], Service support , 08/17/20 16:07 Brain/Head without Contrast [CT] Stat 08/17/20 16:09 Abdomen/Pelvis without Cont [CT] Stat 08/17/20 16:26 Mucosa - Nasopharyngeal SARS-CoV-2 Antigen (Rapid) - Final Laboratory Results 08/17/20 08/17/20 08/17/20 16:06 16:06 16:06 WBC 7.4 RBC 3.70 L Hgb 11.6 L Hct 34.4 L MCV 93.0 MCH 31.4 MCHC 33.7 RDW Std Deviation 46.4 H RDW Coeff of [place] 13.6 Plt Count 112 L MPV 11.3 Immature Gran % (Auto) 0.300 Neut % (Auto) 79.8 H Lymph % (Auto) 8.5 L [place] % (Auto) 8.8 Eos % (Auto) 1.9 Baso % (Auto) 0.7 Absolute Neuts (auto) 5.9 Absolute Lymphs (auto) 0.63 L Nucleated RBC % 0 PT 13.9 INR 1.1 APTT 27.5 Sodium 125 L Potassium 4.7 Chloride 88 L Carbon Dioxide 30.0 Anion Gap 7 BUN 68 H Creatinine 2.44 H Estim Creat Clear Calc 17.47 Est GFR (MDRD) Af Amer 25 L Est GFR (MDRD) Non-Af 21 L BUN/Creatinine Ratio 27.9 H Glucose 600 H* Lactic Acid Calcium 9.1 Total Bilirubin 0.70 Direct Bilirubin 0.31 H AST 30 ALT 35 Alkaline Phosphatase 89 Troponin I < 0.015 Total Protein 6.7 Albumin 2.6 L Globulin 4.1 Urine Color Urine Clarity Urine pH Ur Specific [place] Urine Protein Urine Glucose (UA) Urine Ketones Urine Occult Blood Urine Nitrite Urine Bilirubin Urine Urobilinogen Ur Leukocyte Esterase Urine RBC Urine WBC Ur Squamous Epith Cells Urine Bacteria Urine Mucus POC Glucose 08/17/20 08/17/20 08/17/20 16:59 17:09 17:55 WBC RBC Hgb Hct MCV MCH MCHC RDW Std Deviation RDW Coeff of [place] Plt Count MPV Immature Gran % (Auto) Neut % (Auto) Lymph % (Auto) [place] % (Auto) Eos % (Auto) Baso % (Auto) Absolute Neuts (auto) Absolute Lymphs (auto) Nucleated RBC % PT INR APTT Sodium Potassium Chloride Carbon Dioxide Anion Gap BUN Creatinine Estim Creat Clear Calc Est GFR (MDRD) Af Amer Est GFR (MDRD) Non-Af BUN/Creatinine Ratio Glucose Lactic Acid 1.3 Calcium Total Bilirubin Direct Bilirubin AST ALT Alkaline Phosphatase Troponin I Total Protein Albumin Globulin Urine Color Yellow Urine Clarity Sl. Cloudy Urine pH 7.0 Ur Specific [place] 1.010 Urine Protein 100 H Urine Glucose (UA) 1000 H Urine Ketones Negative Urine Occult Blood 10 H Urine Nitrite Negative Urine Bilirubin Negative Urine Urobilinogen Normal Ur Leukocyte Esterase Negative Urine RBC 0-5 SEEN Urine WBC 0 SEEN Ur Squamous Epith Cells 0-5 SEEN Urine Bacteria 0 SEEN Urine Mucus 0 SEEN POC Glucose > 500 H* - EKG Initial EKG Interpretation: Sinus Rhythm - Sinus at [address] change. Lateral T wave flattening is noted. - Medical Decision Making Patient had been called as a prehospital stroke alert but that was canceled on arrival. She was taken for head CT which was unremarkable. Because of the bleeding wound around her umbilicus CT flank was also obtained. There is some subcu edema and skin changes noted but no intra-abdominal changes appreciated. Blood work does return with a blood sugar of 600. Troponin is negative. Creatinine is elevated but actually improved when compared to prior labs. She is given subcu insulin. Patient became more alert while in the emergency room and was able to answer questions. Patient states that she remembers calling the squad because she was just too weak to get out of her chair today. We did note a history of seizures in her chart and per description from EMS she may have had an absence seizure today and was postictal on arrival. Patient now states that she has a history of 1 seizure in the past. She is not on any antiepileptic medications. Patient's is now present at bedside. He wishes the patient to be admitted at [facility] if at all possible. [facility] but they stated the patient would likely need continuous EEG monitoring which is not available at their facility. They recommended either [facility] or [facility]. I spoke with [facility] as patient has been accepted to their facility. ED Disposition - Plan for ED Patient: Disposition: [facility] Diagnosis: Hyperglycemia, Seizure Referrals: Bailey Toribio MD [Primary Care Provider] -
[2020-08-17 16:25] LABS: International Normalized Ratio 1.1; Partial Thromboplast Time 27.5 Seconds (24.1-36.2); Prothrombin Time (Protime)PT. 13.9 SECONDS (11.7-14.9)
[2020-08-17 16:35] LABS: AST(SGOT) 30 U/L (15-37); Alanine Aminotransfer ALT/SGPT 35 U/L (13-56); Albumin, Serum 2.6 g/dL (3.2-5.0); Alkaline Phosphatase 89 U/L (45-117); Anion Gap 7 (5-15); BUN 68 mg/dL (7-18); BUN/Creat Ratio 27.9 RATIO (10-20); Bilirubin, Direct 0.31 mg/dL (0.00-0.30); Calcium,Total 9.1 mg/dL (8.5-10.1); Chloride 88 mmol/L (98-107); Creatinine, Serum 2.44 mg/dL (0.55-1.02); EST Glomerular Filtration Rate 21 mL/min (>60); Est Glom Filt Rate - Afr Amer 25 mL/min (>60); Estimated Creatinine Clearance 17.47 ml/min; Globulin 4.1 g/dL (2.2-4.2); Glucose 600 mg/dL (74-106); Potassium 4.7 mmol/L (3.5-5.1); Protein, Total 6.7 g/dL (6.4-8.2); Sodium Level 125 mmol/L (136-145)
[2020-08-17] MEDS: Insulin Lispro 100 UNIT/ML INSULN.PEN 10 UNIT SC ×2 (17:09→18:32)
--- NOTE | 2020-08-17 17:19 | ED.RN ---
ERIN WATER METER INSTALLER NOTIFIED TO COMPLETE MEDICATION LIST.
[2020-08-17 17:21] LABS: Bacteria 0 SEEN /hpf (None Seen); Mucous, Urine 0 SEEN /hpf (<or=2+); White Blood Cells 0 SEEN /hpf (0-5)
[2020-08-17 17:24] LABS: Color, Urine Yellow (Yellow); Glucose, Dipstick 1000 mg/dl (Normal); Ketone-Dipstick Negative (Negative); Leukocyte Esterase-Dipstick Negative /ul (Negative); Nitrite-Dipstick Negative (Negative); Occult Blood-Urine 10 /ul (Negative); Protein-Dipstick 100 mg/dl (Negative); Urine Bilirubin Dipstick Negative (Negative); Urine Clarity Sl. Cloudy (Clear); Urine Urobilinogen Normal (Normal)
[2020-08-17 17:31] LABS: Red Blood Cells-Urine 0-5 SEEN /hpf (0-5); Squamous Epithelial Cells - UA 0-5 SEEN /hpf (5-10)
[2020-08-17 17:54] LABS: Lactic Acid 1.3 mmol/L (0.4-1.9)
[2020-08-17 18:01] LABS: Bedside Glucose > 500 mg/dL (70-110)
[2020-08-17] MEDS: 0.9% Normal Saline 1,000 ML 150 ML IV (18:33)
[2020-08-17 19:31] LABS: Bedside Glucose 492 mg/dL (70-110)
--- NOTE | 2020-08-17 19:43 | ED.RN ---
THIS RN LEFT A VOICEMAIL FOR PT TO INFORM OF ADMISSION TO [facility] AT [facility].
[2020-08-17 21:25] LABS: Bedside Glucose 419 mg/dL (70-110)
== END 2020-08-17 21:33 | disposition short-term general hospital (02) ==
PROVIDERS: Emergency Provider Emergency Medicine; PCP Internal Medicine
DX: E11.65 Type 2 diabetes mellitus with hyperglycemia (principal); G40.909 Epilepsy, unspecified, not intractable, without status epilepticus; E11.622 Type 2 diabetes mellitus with other skin ulcer; E11.42 Type 2 diabetes mellitus with diabetic polyneuropathy; L98.499 Non-pressure chronic ulcer of skin of other sites with unspecified severity; I25.10 Atherosclerotic heart disease of native coronary artery without angina pectoris; J44.9 Chronic obstructive pulmonary disease, unspecified; E78.5 Hyperlipidemia, unspecified; M06.9 Rheumatoid arthritis, unspecified; G25.81 Restless legs syndrome; F44.81 Dissociative identity disorder; F31.9 Bipolar disorder, unspecified; F41.1 Generalized anxiety disorder; Z79.4 Long term (current) use of insulin; Z79.899 Other long term (current) drug therapy; Z86.73 Personal history of transient ischemic attack (TIA), and cerebral infarction without residual deficits; Z87.891 Personal history of nicotine dependence
CPT/HCPCS: 36415; 70450; 74176; 80048; 80076; 81001; 82962; 83605; 84484; 85025; 85610; 85730; 87040; 87426; 93005; 96360; 96361; 99285; J7030; A4216

== ENCOUNTER 2020-09-29 13:22 | Inpatient (IN) | payer MEDICARE, MEDICAID, SELFPAY ==
[2020-08-17 16:01] VITALS: BMI 38.4
[2020-09-29] VITALS (9 sets, daily range): BP systolic 114–158; BP diastolic 44–114; PULSE 43–50; RESP 7–16; TEMP 36.1–36.5; O2SAT 96–99; BMI 52.8; BMI 50.8; BMI 50.9
--- NOTE | 2020-09-29 13:28 | EKG12_ITS ---
Test Reason : CP Blood Pressure : / mmHG Vent. Rate : 050 BPM Atrial Rate : 047 BPM P-R Int : 000 ms QRS Dur : 080 ms QT Int : 418 ms P-R-T Axes : 000 090 015 degrees QTc Int : 381 ms Atrial fibrillation with slow ventricular response Rightward axis Low voltage QRS Septal infarct , age undetermined Abnormal ECG Confirmed by ANGELA BOWMAN, SANTHOSH ([id number]), brands editor RADHA TAPIA ([id number]) on 10/01/2020 9:51:54 AM Referred By: RONA Confirmed By:SANTHOSH MILLER MD
--- NOTE | 2020-09-29 13:28 | CT_ITS ---
STUDY: CT BRAIN WITHOUT CONTRAST REASON FOR EXAM: Female, 74 years old. AMS RADIATION DOSAGE (If Supplied By Facility): CTDIvol = ( 38.43 ) mGy, DLP = ( 698.28 ) mGycm TECHNIQUE: Transaxial CT imaging of the brain was performed without administration of intravenous contrast material. Individualized dose optimization techniques were used for this CT. COMPARISON: Comparison is made with prior study dated 08/17/2020. FINDINGS: Normal soft tissue structures. Normal calvarium. There is mild cerebral atrophy with widening of the extra-axial spaces and ventricular dilatation. Normal white matter tracts of the cerebral hemispheres. Normal basal ganglia and thalami. Normal brainstem. Normal cerebellum. There is no intracranial hemorrhage. There are no findings of an acute ischemic infarction. Normal visualized paranasal sinuses. CT/Brain/Head without Contrast IMPRESSION: Chronic involutional changes of the brain. Electronically Signed: Baljeet Chen MD at 14:05 EDT , Service support ,
[2020-09-29 13:36] LABS: Bedside Glucose 410 mg/dL (70-110)
[2020-09-29 13:43] LABS: Absolute Lymphocyte Count 0.76 X10^3/uL (0.83-4.51); Absolute Neutrophil Count 5.5 X10^3/uL (2.0-7.7); Basophil# 0.04 X10^3/uL; Basophil% 0.6 % (0-1); Eosinophil# 0.17 X10^3/uL; Eosinophils% 2.4 % (0-5); Hematocrit 32.2 % (37-47); Lymphocyte # 0.76 X10^3/ul (4.0); Lymphocyte % 10.6 % (19-41); Mean Corp Hgb Conc 31.1 g/dL (32-36); Mean Corpuscular Hgb 31.2 pg (27.0-32.0); Mean Corpuscular Volume 100.3 fL (81-99); Mean Platelet Vol. 12.1 fl (6.2-12.0); Monocyte# 0.72 X10^3/uL; NRBC Flagged by Analyzer 0 % (0-5); Neutrophil % 76.3 % (47-70); POSITIVE COUNT YES; Platelet Count 78 K/mm3 (150-450); RBC Distribution Width CV 14.8 % (11.6-14.6); RBC Distribution Width SD 54.9 fl (35.1-43.9); Red Blood Count 3.21 M/mm3 (4.2-5.4); White Blood Count 7.2 K/mm3 (4.4-11.0)
[2020-09-29 13:48] LABS: Differential Indicated SCAN CRITERIA MET
[2020-09-29 13:50] LABS: International Normalized Ratio 1.3; Prothrombin Time (Protime)PT. 15.7 SECONDS (11.7-14.9)
[2020-09-29 13:51] LABS: Partial Thromboplast Time 32.6 Seconds (24.1-36.2)
--- NOTE | 2020-09-29 13:55 | ED.DCSUM_ITS ---
History of Present Illness Chief Complaint: Chest Pain Informant: Patient, Licensed Mental Health Counselor Onset: Today Context: Gradual Onset Narrative: Patient is a 74-year-old female with history of CHF and CKD presenting with shortness of breath. Patient states she has been feeling weak and has been feeling well for the past few days. He started feel more short of breath today. In route patient would have episodes where she was seen almost unresponsive and become bradycardic. Patient had elevated and low blood pressures per EMS. Patient denies any chest pain just feels like there is a little heaviness in her chest. She has bruises on her but denies any recent falls. She states she has felt like this in the past when she has had heart problems from having fluid overload. No reported fever. Past Medical History - Allergies and Home Meds Allergies/Adverse Reactions: Allergies ciprofloxacin [From Cipro] Allergy (Verified 09/29/20 13:37) Rash codeine Allergy (Verified 09/29/20 13:37) Shortness of breath Penicillins Allergy (Verified 09/29/20 13:37) Hives CILLINS Allergy (Uncoded 09/29/20 13:37) Unknown Past Medical History: - - Seizure disorder, bipolar disorder, multiple personality disorder, coronary artery disease, ELENITA on CPAP, anxiety, RA, restless leg syndrome, type 2 diabetes mellitus, hypertension, hyperlipidemia, h istory of stroke Surgical History: appendectomy, cataract, cholecystectomy, hysterectomy, tonsillectomy, - - Glaucoma, abdominal surgery for cyst. Lives: With Family Smoking Status: Former smoker - Family History Maternal Family History: Reports: Cancer, Diabetes, Heart Disease, Hypertension Paternal Family History: Reports: Cancer, Heart Disease Review of Systems General: Reports: Malaise. Denies: Chills, Fever, Sweats Eyes: Denies: Visual changes - bilaterally, Diplopia ENT: Denies: Rhinorrhea, Sore throat Cardiovascular: Denies: Chest pain, Palpitations Respiratory: Reports: Dyspnea, Dyspnea on exertion. Denies: Cough Gastrointestinal: Denies: Abdominal pain, Nausea, Vomiting, Diarrhea, Melena, Hematochezia Genitourinary: Denies: Dysuria, Hematuria, Frequency Musculoskeletal: Denies: Back pain, Extremity Pain Skin: Denies: Rash, Wounds Neurological: Reports: Weakness - generalized . Denies: Headache, Numbness Physical Exam Vital Signs/Narrative: Vital Signs Temp Pulse Resp BP Pulse Ox 09/29/20 13:35 49 L 13 116/72 99 09/29/20 13:23 97.5 F L 50 L 7 L 158/114 H 99 Inital Vital Signs reviewed: Yes General: Well nourished, Well developed, No Acute Distress Head: Normocephalic, Atraumatic Eyes: Perrl, EOMI ENT: Moist mucous membranes, No rhinorrhea, TM's clear Neck: Supple, Nontender, No JVD, - - Ecchymosis on the right side of the neck Cardiovascular: Regular rate, Regular rhythm, No murmurs Respiratory: No distress, CTA bilaterally, Chest nontender Abdomen: Soft, Nontender, Nondistended, Normal bowel sounds Back: Nontender, Normal Inspection Extremities: Nontender, Edema - Bilateral pitting edema up to the pannus Skin: Normal color, No rash Neurological: Alert, Oriented x3, Cranial nerves II-XII grossly intact, Normal Strength, Normal Sensation Psychological: Normal affect, Normal Mood Diagnostic/Tx/Re-eval Chest X-Ray - ED: 1 View, Read by ED Physician, Read by Radiologist, Cardiom egaly, CHF Clinical Impression(s) from Imaging Studies Brain CT 09/29/20 13:28 IMPRESSION: Chronic involutional changes of the brain. Electronically Signed: Baljeet Chen MD at 14:05 EDT , Service support , Chest X-Ray 09/29/20 14:20 IMPRESSION: Findings in keeping with a mild degree of CHF and bibasilar atelectasis. Electronically Signed: Baljeet Chen MD at 15:01 EDT , Service support , Laboratory Data 09/29/20 09/29/20 09/29/20 13:28 13:30 13:30 WBC 7.2 RBC 3.21 L Hgb 10.0 L Hct 32.2 L MCV 100.3 H MCH 31.2 MCHC 31.1 L RDW Std Deviation 54.9 H RDW Coeff of Kusum 14.8 H Plt Count 78 L MPV 12.1 H Immature Gran % (Auto) 0.100 Neut % (Auto) 76.3 H Lymph % (Auto) 10.6 L [place] % (Auto) 10.0 Eos % (Auto) 2.4 Baso % (Auto) 0.6 Absolute Neuts (auto) 5.5 Absolute Lymphs (auto) 0.76 L Nucleated RBC % 0 Platelet Estimate MOD DEC PT 15.7 H INR 1.3 APTT 32.6 Sodium Potassium Chloride Carbon Dioxide Anion Gap BUN Creatinine Estim Creat Clear Calc Est GFR (MDRD) Af Amer Est GFR (MDRD) Non-Af BUN/Creatinine Ratio Glucose Lactic Acid Calcium Total Bilirubin AST ALT Alkaline Phosphatase Troponin I B-Natriuretic Peptide Total Protein Albumin Globulin Albumin/Globulin Ratio Urine Color Urine Clarity Urine pH Ur Specific [place] Urine Protein Urine Glucose (UA) Urine Ketones Urine Occult Blood Urine Nitrite Urine Bilirubin Urine Urobilinogen Ur Leukocyte Esterase Urine RBC Urine WBC Ur Squamous Epith Cells Urine Bacteria Urine Mucus POC Glucose 410 H 09/29/20 09/29/20 09/29/20 13:30 13:30 13:50 WBC RBC Hgb Hct MCV MCH MCHC RDW Std Deviation RDW Coeff of Kusum Plt Count MPV Immature Gran % (Auto) Neut % (Auto) Lymph % (Auto) [place] % (Auto) Eos % (Auto) Baso % (Auto) Absolute Neuts (auto) Absolute Lymphs (auto) Nucleated RBC % Platelet Estimate PT INR APTT Sodium 131 L Potassium 5.3 H Chloride 98 Carbon Dioxide 24.0 Anion Gap 9 BUN 92 H Creatinine 3.77 H Estim Creat Clear Calc 9.40 Est GFR (MDRD) Af Amer 15 L Est GFR (MDRD) Non-Af 12 L BUN/Creatinine Ratio 24.4 H Glucose 406 H Lactic Acid 1.2 Calcium 8.6 Total Bilirubin 0.60 AST 21 ALT 32 Alkaline Phosphatase 93 Troponin I < 0.015 B-Natriuretic Peptide 483.9 H Total Protein 6.9 Albumin 2.7 L Globulin 4.2 Albumin/Globulin Ratio 0.6 L Urine Color Urine Clarity Urine pH Ur Specific [place] Urine Protein Urine Glucose (UA) Urine Ketones Urine Occult Blood Urine Nitrite Urine Bilirubin Urine Urobilinogen Ur Leukocyte Esterase Urine RBC Urine WBC Ur Squamous Epith Cells Urine Bacteria Urine Mucus POC Glucose 09/29/20 14:10 WBC RBC Hgb Hct MCV MCH MCHC RDW Std Deviation RDW Coeff of Kusum Plt Count MPV Immature Gran % (Auto) Neut % (Auto) Lymph % (Auto) [place] % (Auto) Eos % (Auto) Baso % (Auto) Absolute Neuts (auto) Absolute Lymphs (auto) Nucleated RBC % Platelet Estimate PT INR APTT Sodium Potassium Chloride Carbon Dioxide Anion Gap BUN Creatinine Estim Creat Clear Calc Est GFR (MDRD) Af Amer Est GFR (MDRD) Non-Af BUN/Creatinine Ratio Glucose Lactic Acid Calcium Total Bilirubin AST ALT Alkaline Phosphatase Troponin I B-Natriuretic Peptide Total Protein Albumin Globulin Albumin/Globulin Ratio Urine Color Yellow Urine Clarity Clear Urine pH 5.0 Ur Specific [place] 1.020 Urine Protein 100 H Urine Glucose (UA) 250 H Urine Ketones Negative Urine Occult Blood Negative Urine Nitrite Negative Urine Bilirubin Negative Urine Urobilinogen Normal Ur Leukocyte Esterase 25 H Urine RBC 0 SEEN Urine WBC 0 SEEN Ur Squamous Epith Cells 0 SEEN Urine Bacteria 0 SEEN Urine Mucus 0 SEEN POC Glucose - Rhythm Strip Rhythm Strip: bradycardia Rate: 50 Ectopy: None - EKG Initial EKG Interpretation: Sinus Bradycardia, - - Sinus bradycardia at a rate of 50 Rightward axis Low voltage Normal ST segments - Medical Decision Making Patient is evaluated for mental status change, weakness and shortness of breath. On exam patient is groggy and not answering questions well but she is protecting her airway. Her GCS is 15. Patient does appear fluid overloaded has pitting edema up to her abdomen. She does have some scattered ecchymosis including her neck. Because of her mental status change and bruising head CT is obtained which does not show any acute process. Patient does have a mild thrombocytopenia which could explain her bruising. Chest x-ray does show pulmonary vascular congestion x-ray with fluid overload. Clinically I am concerned patient has a CHF exacerbation. She is requiring supplementary oxygen in the ER. Patient be admitted for further treatment. She is agreeable this plan of care. Family is at the bedside. Patient is given 40 mg IV Lasix in the ER. When family arrives to the ER they state that she had a seizure. Patient was likely post ictal when arrived and that is why she was altered. Patient does have a history of seizures. ED Disposition - Plan for ED Patient: Disposition: Acute Care Hospital [facility] Diagnosis: Acute exacerbation of CHF (congestive heart failure), DEBBIE (acute kidney injury), Breakthrough seizure, Acute respiratory failure with hypoxia, Thrombocytopenia
[2020-09-29 13:57] LABS: ALB/GLOB Ratio 0.6 RATIO (0.9-2.4); AST(SGOT) 21 U/L (15-37); Alanine Aminotransfer ALT/SGPT 32 U/L (13-56); Albumin, Serum 2.7 g/dL (3.2-5.0); Alkaline Phosphatase 93 U/L (45-117); Anion Gap 9 (5-15); BUN 92 mg/dL (7-18); BUN/Creat Ratio 24.4 RATIO (10-20); Calcium,Total 8.6 mg/dL (8.5-10.1); Chloride 98 mmol/L (98-107); Creatinine, Serum 3.77 mg/dL (0.55-1.02); EST Glomerular Filtration Rate 12 mL/min (>60); Est Glom Filt Rate - Afr Amer 15 mL/min (>60); Globulin 4.2 g/dL (2.2-4.2); Glucose 406 mg/dL (74-106); Potassium 5.3 mmol/L (3.5-5.1); Protein, Total 6.9 g/dL (6.4-8.2); Sodium Level 131 mmol/L (136-145)
[2020-09-29 14:04] LABS: BNP,B-Type NATRIURETIC PEPTIDE 483.9 pg/mL (0-100)
[2020-09-29 14:11] LABS: Platelet Estimate MOD DEC (ADEQ)
--- NOTE | 2020-09-29 14:20 | RAD_ITS ---
STUDY: X-RAY CHEST REASON FOR EXAM: Female, 74 years old. Sob TECHNIQUE: Single AP portable view of the chest. COMPARISON: Comparison is made with prior study dated 05/05/2020. FINDINGS: EKG electrodes are seen. There is evidence of increased markings at the lung bases worse on the right side with blunting of the right cardiac phrenic angle. This is superimposed on mild degree of CHF. Normal size heart. Normal mediastinum and elva. Normal visualized pulmonary arteries. There is atherosclerotic calcification of the aortic arch with tortuosity. Normal visualized thoracic spine. Normal visualized ribs, clavicles, and shoulders. There is no demonstrated abnormality of the visualized soft tissue structures of the upper abdomen. RAD/Chest 1 View (Portable) IMPRESSION: Findings in keeping with a mild degree of CHF and bibasilar atelectasis. Electronically Signed: Baljeet Chen MD at 15:01 EDT , Service support ,
[2020-09-29 14:24] LABS: Bacteria 0 SEEN /hpf (None Seen); Mucous, Urine 0 SEEN /hpf (<or=2+); Red Blood Cells-Urine 0 SEEN /hpf (0-5); Squamous Epithelial Cells - UA 0 SEEN /hpf (5-10); White Blood Cells 0 SEEN /hpf (0-5)
[2020-09-29 14:25] LABS: Color, Urine Yellow (Yellow); Glucose, Dipstick 250 mg/dl (Normal); Ketone-Dipstick Negative (Negative); Leukocyte Esterase-Dipstick 25 /ul (Negative); Nitrite-Dipstick Negative (Negative); Occult Blood-Urine Negative /ul (Negative); Protein-Dipstick 100 mg/dl (Negative); Urine Bilirubin Dipstick Negative (Negative); Urine Clarity Clear (Clear); Urine Urobilinogen Normal (Normal)
[2020-09-29 14:28] LABS: Lactic Acid 1.2 mmol/L (0.4-1.9)
--- NOTE | 2020-09-29 15:39 | NURSING ---
PCU CHF [facility]ITIN
[2020-09-29] MEDS: Furosemide 40 MG/4 ML Vial IV (16:02)
--- NOTE | 2020-09-29 16:31 | HP.PCM_ITS ---
History of Present Illness Date of Admission: 09/29/20 Chief Complaint: Increased edema, shortness of breath, seizure The patient is a 74 year old F with a PMH as below presents to the hospital after having a seizure episode. She does appear postictal and somnolent therefore most of the history was obtained by the daughter who is at bedside. She states that her mother's been looking more edematous since [facility] weeks ago. She does not think her mother's been following the diet because her mother's cooks whatever he wants and she eats whatever he makes therefore for example today at lunch she had a fried potato pancake despite the fact that she has a history of diastolic CHF and diabetes. She had physical therapy today at home and then she had a seizure episode afterwards that was witnessed where she fell to the ground and had a jerking motion with her head. She woke up and was confused and somnolent, and then in the ambulance she had an episode of becoming unresponsive and bradycardic which she came out of. Currently in the ER on the monitor her heart rates in the 50s to 60s. Her blood sugar was elevated to 406 and she did not take her insulin today and the daughter does not think she is been consistent with a diet and her BNP was elevated to 483.9 however she does have chronic kidney disease with a baseline creatinine around 3.4 to 3.5 Past Medical History Past Medical History (Chronic Problems): Chronic Problems Sciatica (Chronic) Anemia (Chronic) Seizure disorder (Chronic) Stroke (Chronic) Coronary artery disease (Chronic) Depression (Chronic) Bipolar disorder (Chronic) Multiple personality disorder (Chronic) Restless legs syndrome (Chronic) Rheumatoid arthritis (Chronic) Generalized anxiety disorder (Chronic) ELENITA on CPAP (Chronic) COPD (chronic obstructive pulmonary disease) (Chronic) Peripheral neuropathy (Chronic) Esophageal reflux (Chronic) Depressive disorder (Chronic) 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) Obesity (Chronic) Hypertension (Chronic) Diabetes type 2, uncontrolled (Chronic) Hyperlipidemia (Chronic) Cerebrovascular disease (Chronic) Status post acute ischemic stroke No residual deficit Allergies ciprofloxacin [From Cipro] Allergy (Verified 09/29/20 13:37) Rash codeine Allergy (Verified 09/29/20 13:37) Shortness of breath Penicillins Allergy (Verified 09/29/20 13:37) Hives CILLINS Allergy (Uncoded 09/29/20 13:37) Unknown Home Medications: Ambulatory Orders Medication Instructions Recorded Isosorbide Mononitrate [Isosorbide 30 mg PO DAILY 04/10/15 Mononitrate ER] Insulin Lispro [Humalog KwikPen] 5 unit SUBCUT TIDCM 06/10/19 Insulin Glargine [Lantus SoloStar 16 units SUBCUT BID 06/29/19 Pen] traZODone [Desyrel] 25 mg PO QHS 06/29/19 Atorvastatin Calcium [Lipitor] 10 mg PO QHS 09/06/19 Ergocalciferol [Vitamin D] 50,000 unit PO KELLOGG 09/06/19 Gabapentin [Neurontin] 200 mg PO BID #0 09/06/19 Escitalopram Oxalate [Lexapro] 10 mg PO DAILY 05/05/20 Lisinopril [Prinivil] 10 mg PO DAILY 05/05/20 Torsemide [Demadex] 40 mg PO BID 05/05/20 Metoprolol Succinate [Toprol Xl] 75 mg PO DAILY 08/17/20 Amlodipine Besylate [Norvasc] 10 mg PO DAILY 09/29/20 Aspirin 81 mg PO DAILY 09/29/20 Furosemide [Lasix] 40 mg PO BID 09/29/20 Lacosamide [Vimpat] 100 mg PO DAILY 09/29/20 Surgical History: appendectomy, cataract, cholecystectomy, hysterectomy, tonsillectomy, - - Glaucoma, abdominal surgery for cyst. Psychiatric History: Anxiety, Bipolar, Depression, - - Multiple personality disorder. CORRESPONDENCE REPRESENTATIVE History: No pertinent CORRESPONDENCE REPRESENTATIVE history Lives: With Family Smoking Status: Former smoker Tobacco Use: Cigarettes Alcohol: None Drugs: None - *Family History Maternal History Items: Cancer, Diabetes, Heart Disease, Hypertension Paternal History Items: Cancer, Heart Disease Review of Systems Unable to obtain accurate/complete ROS d/t: Somnolence being postictal VTE Information - Inpt Only VTE Present on Admission: No - Physical Exam Vitals/I&O's: Vital Signs Temp Pulse Resp BP Pulse Ox 97 F L 47 L 13 131/58 H 96 09/29/20 16:02 09/29/20 16:02 09/29/20 16:02 09/29/20 16:02 09/29/20 16:02 Oxygen Flow Rate (L/min) 3 Oxygen Delivery Method Nasal Cannula Weight: 270 lb 8.115 oz Body Mass Index (BMI) 52.8 Finger Stick Blood Glucose 410 General: Disoriented, Lethargic HEENT: Atraumatic, PERRLA, EOMI, Normocephalic, - - Ecchymosis on her right neck secondary to EMS Oral: Dry Mucosa Neck: Supple, No JVD Lungs: Normal air movement, No rhonchi, No wheeze, No rales, Diminished Cardiovascular: Regular rate, Regular Rhythm, Normal S1, Normal S2, No murmurs Abdomen: Soft, Non Tender, Non-Distended, No Hepato-splenomegaly Extremities: Capillary Refill Less than 3 Seconds, Edema - Anasarca with dependent edema in all extremities Skin: No rashes, No breakdown Neurological: Neuro grossly intact, Sensory exam intact to light touch and pain Psych/Mental Status: Flat Affect, - - Drowsy Laboratory Results 09/29/20 13:28: POC Glucose 410 H 09/29/20 13:30: WBC 7.2, RBC 3.21 L, Hgb 10.0 L, Hct 32.2 L, MCV 100.3 H, MCH 31.2, MCHC 31.1 L, RDW Std Deviation 54.9 H, RDW Coeff of Kusum 14.8 H, Plt Count 78 L, MPV 12.1 H, Immature Gran % (Auto) 0.100, Neut % (Auto) 76.3 H, Lymph % (Auto) 10.6 L, [place] % (Auto) 10.0, Eos % (Auto) 2.4, Baso % (Auto) 0.6, Absolute Neuts (auto) 5.5, Absolute Lymphs (auto) 0.76 L, Nucleated RBC % 0, Platelet Estimate MOD 09/29/20 13:30: PT 15.7 H, INR 1.3, APTT 32.6 09/29/20 13:30: Sodium 131 L, Potassium 5.3 H, Chloride 98, Carbon Dioxide 24.0, Anion Gap 9, BUN 92 H, Creatinine 3.77 H, Estim Creat Clear Calc 9.40, Est GFR (MDRD) Af Amer 15 L, Est GFR (MDRD) Non-Af 12 L, BUN/Creatinine Ratio 24.4 H, Glucose 406 H, Calcium 8.6, Total Bilirubin 0.60, AST 21, ALT 32, Alkaline Phosphatase 93, Troponin I < 0.015, Total Protein 6.9, Albumin 2.7 L, Globulin 4.2, Albumin/Globulin Ratio 0.6 L 09/29/20 13:30: B-Natriuretic Peptide 483.9 H 09/29/20 13:50: Lactic Acid 1.2 09/29/20 14:10: Urine Color Yellow, Urine Clarity Clear, Urine pH 5.0, Ur Specific [place] 1.020, Urine Protein 100 H, Urine Glucose (UA) 250 H, Urine Ketones Negative, Urine Occult Blood Negative, Urine Nitrite Negative, Urine Bilirubin Negative, Urine Urobilinogen Normal, Ur Leukocyte Esterase 25 H, Urine RBC 0 SEEN, Urine WBC 0 SEEN, Ur Squamous Epith Cells 0 SEEN, Urine Bacteria 0 SEEN, Urine Mucus 0 SEEN Assessment/Plan All Active Problems Intractable low back pain (Acute) UTI (urinary tract infection) (Acute) Dehydration (Acute) Acute renal failure (Acute) Community acquired pneumonia (Acute) 1. Acute hypoxic respiratory failure secondary to acute on chronic diastolic CHF/HTN/HLD -We will place her on a Lasix drip given the degree with which she has edema and monitor her renal function closely -We will place her on a fluid restriction -May need to consult nephrology if she has a rising creatinine with a Lasix drip -We will continue with her aspirin, isosorbide, lisinopril, metoprolol -We will hold her Norvasc as this can lead to swelling -Continue with statin 2. Post ictal status post seizure -We will obtain an EEG -We will continue with her Vimpat, and may need to get a neurology consult after the EEG is read, however it could have been secondary to her hypoglycemia -If necessary can add Keppra 3. IDDM 2/morbid obesity/CKD 4 -Does not appear that has been following a diet and did not take her insulin today -Blood sugars elevated to 406 -We will place her on her long-acting insulin at 10 units twice daily as well as sliding scale insulin and mealtime insulin. Also put her on an appropriate diet with appropriate calories -Accu-Cheks AC at bedtime -Discussed lifestyle modifications -She has had a significant increase in her creatinine over the last 9 months, will continue to monitor 4. Anxiety/depression -Stable -We will hold off on her trazodone and Lexapro secondary to her disorientation and somnolence Her care is complicated by diagnoses that she does not take medications for including rheumatoid arthritis and COPD DVT: Heparin Inpatient E&M: 80228 Init Hosp L3
--- NOTE | 2020-09-29 16:49 | ECHOD_ITS ---
Reason For Study: CHF Procedure This was a 2D Doppler, Color Flow transthoracic echocardiogram. The study was technically difficult. Exam performed portable in patient room. Left Ventricle Normal LV size. Left ventricular systolic function is normal. The estimated ejection fraction is 55 %. No evidence for diastolic dysfunction. No regional wall motion abnormalities noted. Right Ventricle Severely dilated right ventricle. Moderate global right ventricular systolic dysfunction. Atria Normal left atrium. Normal right atrium. No doppler evidence for ASD. Mitral Valve There is no mitral annular calcification. Normal mitral valve. Mild (1+) eccentric mitral valve insufficiency. Tricuspid Valve Poor coaptation of the tricuspid valve apparatus. Moderately severe (3+) tricuspid valve insufficiency. Unable to estimate RV systolic pressure due to insufficient tricuspid regurgitant envelope. Aortic Valve The aortic valve is not well visualized. Pulmonic Valve The pulmonic valve is not well visualized. Great Vessels Normal sized aortic root. Calcified aortic root. Pericardium/Pleural No pericardial effusion. MMode/2D Measurements & Calculations LVIDd: 4.2 cm IVSd: 1.0 cm Ao root diam: 2.5 cm LVIDs: 2.6 cm LVPWd: 1.2 cm RVDd: 4.7 cm FS: 38.9 % LAV(MOD-bp): 47.5 ml LA A4 area: 15.3 cm2 LA dimension(2D): 4.3 cm LAV(MOD-bp) Indexed: 22.7 ml/m2 LAV(MOD-sp2): 57.6 ml LAV(MOD-sp4): 38.9 ml RA A4 area: 18.3 cm2 Doppler Measurements & Calculations MV E max moe: 68.1 cm/sec Lat Peak E' Moe: 10.2 cm/sec Med Peak E' Moe: 6.3 cm/sec MV A max moe: 74.4 cm/sec E/E' lat: 6.7 E/E' med: 10.9 MV E/A: 0.92 Ao V2 max: 124.8 cm/sec LV V1 max: 105.8 cm/sec PA V2 max: 76.6 cm/sec Ao max P.2 mmHg LV V1 max P.5 mmHg ECHO/Echo Complete Interpretation Summary The study was technically difficult. Left ventricular systolic function is normal. The estimated ejection fraction is 55 %. Severely dilated right ventricle. Moderate global right ventricular systolic dysfunction. Mild (1+) eccentric mitral valve insufficiency. Poor coaptation of the tricuspid valve apparatus. Moderately severe (3+) tricuspid valve insufficiency. Calcified aortic root. Unable to estimate RV systolic pressure due to insufficient tricuspid regurgita nt envelope. No evidence for diastolic dysfunction. Ordering Physician: Lazaro Lee Referring Physician: Bailey Toribio Performed By: Rosemary Sanchez RDCS
[2020-09-29] MEDS: Furosemide 500 MG in Empty Viaflex 50 mL 1 EACH CONT INF (17:38)
[2020-09-29] MEDS: Insulin Lispro 100 UNIT/ML INSULN.PEN SC ×3 (17:54→21:09)
[2020-09-29 18:01] LABS: Bedside Glucose 331 mg/dL (70-110)
[2020-09-29] MEDS: Heparin Injection (Vial) 5,000 UNIT/ML VIAL 5000 UNIT SC (21:10)
[2020-09-29] MEDS: Nystatin Powder 15gm Bottle 1 APPLIC TOPICAL (21:10)
[2020-09-29 22:56] LABS: Bedside Glucose 322 mg/dL (70-110)
[2020-09-30] VITALS (15 sets, daily range): BP systolic 104–143; BP diastolic 44–84; PULSE 38–58; RESP 16–20; TEMP 35.8–36.6; O2SAT 96–99
[2020-09-30] MEDS: Heparin Injection (Vial) 5,000 UNIT/ML VIAL 5000 UNIT SC ×3 (05:34→21:48)
[2020-09-30] MEDS: Nystatin Powder 15gm Bottle 1 APPLIC TOPICAL ×3 (05:35→21:47)
[2020-09-30 06:28] LABS: Absolute Lymphocyte Count 0.87 X10^3/uL (0.83-4.51); Basophil# 0.04 X10^3/uL; Basophil% 0.7 % (0-1); Eosinophil# 0.15 X10^3/uL; Eosinophils% 2.6 % (0-5); Hematocrit 29.5 % (37-47); Hemoglobin 9.3 g/dL (12.0-15.0); Lymphocyte # 0.87 X10^3/ul (4.0); Lymphocyte % 14.9 % (19-41); Mean Corp Hgb Conc 31.5 g/dL (32-36); Mean Corpuscular Hgb 31.6 pg (27.0-32.0); Mean Corpuscular Volume 100.3 fL (81-99); Monocyte# 0.76 X10^3/uL; NRBC Flagged by Analyzer 0 % (0-5); Neutrophil % 68.5 % (47-70); POSITIVE COUNT YES; Platelet Count 73 K/mm3 (150-450); RBC Distribution Width CV 14.7 % (11.6-14.6); RBC Distribution Width SD 54.3 fl (35.1-43.9); Red Blood Count 2.94 M/mm3 (4.2-5.4); White Blood Count 5.8 K/mm3 (4.4-11.0)
[2020-09-30 06:49] LABS: Anion Gap 6 (5-15); BUN 98 mg/dL (7-18); BUN/Creat Ratio 24.9 RATIO (10-20); Calcium,Total 8.6 mg/dL (8.5-10.1); Chloride 102 mmol/L (98-107); Creatinine, Serum 3.93 mg/dL (0.55-1.02); EST Glomerular Filtration Rate 12 mL/min (>60); Est Glom Filt Rate - Afr Amer 14 mL/min (>60); Estimated Creatinine Clearance 9.02 ml/min; Glucose 148 mg/dL (74-106); Potassium 5.4 mmol/L (3.5-5.1); Sodium Level 133 mmol/L (136-145)
--- NOTE | 2020-09-30 08:18 | TELEMED_ITS ---
[facility] Telemed has confirmed receipt of a request for visit. This document confirms receipt of the order initiating the consult. To find the results of the consultation, please view the patient's reports for the scanned Telemed Consult.
--- NOTE | 2020-09-30 09:05 | CASEMGMT ---
ANNIE received a message that patient has Passport and her catalytic case operator is Amee. ANNIE will keep in touch with Amee regarding discharge plan. Katelynn Bui WAGE ANALYST [place]
[2020-09-30] MEDS: Aspirin 81 MG TAB.CHEW PO (09:30)
[2020-09-30] MEDS: Escitalopram Oxalate 10 MG Tablet PO (09:30)
[2020-09-30] MEDS: Lacosamide 100 MG Tablet PO (09:38)
[2020-09-30] MEDS: Polyethylene Glycol 3350 17 GM PACKET PO ×2 (09:38→21:49)
[2020-09-30 10:05] LABS: Bedside Glucose 106 mg/dL (70-110)
--- NOTE | 2020-09-30 10:30 | CASEMGMT ---
Palliative screening tool completed at this time for lace/strata 3. Patient meets criteria and hospitalist updated. Hospitalist agreeable and palliative consult placed. ERICA TREVIÑO called and faxed referral to Palliative Care.
--- NOTE | 2020-09-30 10:55 | CASEMGMT ---
ERICA TREVIÑO Face to Face with patient for initial transition planning/care coordination assessment. ERICA TREVIÑO introduced self and role at [facility]. Patient lying in bed and is drowsy and having difficulty staying awake. Patient gave permission to call daughter to verify information. Daughter Beverly willing to participate in assessment and is able to answer all questions appropriately. Care providers, pharmacy, and demographics verified. Daughter wishes for patient to discharge to TCU. ERICA TREVIÑO told daughter that CM would need to verify discharge plans with patient and . Daughter states she has no further needs or concerns at this time. SW updated for potential discharge to TCU pending therapy and confirming discharge plans with patient and . CM to follow for discharge planning needs that may arise. PCP: [facility]: patient follow with saw edge fuser circular but not sure of name. Patient was to follow-up with [facility] pulmonology but appts cancelled as patient can not do stairs to get into home. [facility]erred [facility]acy: [facility] Insurance: [facility] community plan Prescription Benefit: yes Living Will/HPOA: not sure LNOK: , daughter Living Arrangements: Patient lives with in a single story home with 3 steps and partial railing to enter the home which are very difficult for patient. Patient was independent for self care at home. Transportation: or daughter DME/HHC: Patient has raised toilet, lift chair, grab bars, hip kit, and rollator at home. Patient has SW named Shellie that is assisting with getting patient a ramp Disposition Plan: TBD by course of treatment and progress with therapy. Monet WEIRN, RN, CM
--- NOTE | 2020-09-30 11:05 | PN_ITS ---
Patient Problems: Active and Suspected Problems DEBBIE (acute kidney injury) (Acute) Breakthrough seizure (Acute) Acute respiratory failure with hypoxia (Acute) Thrombocytopenia (Acute) Subjective: Seems about the same today, states that she feels a little bit better. Vitals/I&O's: Vital Signs Temp Pulse Resp BP Pulse Ox 97.6 F L 38 L 18 107/52 L 99 09/30/20 09:20 09/30/20 11:04 09/30/20 09:20 09/30/20 09:20 09/30/20 09:20 Oxygen Flow Rate (L/min) 2 Oxygen Delivery Method Nasal Cannula Weight: 262 lb 12.656 oz Body Mass Index (BMI) 50.8 Finger Stick Blood Glucose 410 Intake and Output for Last 24 Hours 09/28/20 09/29/20 09/30/20 23:59 23:59 23:59 Intake Total 620 / 620 Output Total 350 / 350 150 / 150 Balance 270 / 270 -150 / -150 General: Disoriented, Lethargic HEENT: Atraumatic, PERRLA, EOMI, Normocephalic, - - Ecchymosis on her right neck secondary to EMS Oral: Dry Mucosa Neck: Supple, No JVD Lungs: Normal air movement, No rhonchi, No wheeze, No rales, Diminished Cardiovascular: Bradycardia, Regular Rhythm, Normal S1, Normal S2, No murmurs Abdomen: Soft, Non Tender, Non-Distended, No Hepato-splenomegaly Extremities: Capillary Refill Less than 3 Seconds, Edema - Anasarca with dependent edema in all extremities Skin: No rashes, No breakdown Neurological: Neuro grossly intact, Sensory exam intact to light touch and pain Psych/Mental Status: Flat Affect, - - Drowsy Laboratory Results 09/29/20 13:28: POC Glucose 410 H 09/29/20 13:30: WBC 7.2, RBC 3.21 L, Hgb 10.0 L, Hct 32.2 L, MCV 100.3 H, MCH 31.2, MCHC 31.1 L, RDW Std Deviation 54.9 H, RDW Coeff of Kusum 14.8 H, Plt Count 78 L, MPV 12.1 H, Immature Gran % (Auto) 0.100, Neut % (Auto) 76.3 H, Lymph % (Auto) 10.6 L, [place] % (Auto) 10.0, Eos % (Auto) 2.4, Baso % (Auto) 0.6, Absolute Neuts (auto) 5.5, Absolute Lymphs (auto) 0.76 L, Nucleated RBC % 0, Platelet Estimate MOD DEC 09/29/20 13:30: PT 15.7 H, INR 1.3, APTT 32.6 09/29/20 13:30: Sodium 131 L, Potassium 5.3 H, Chloride 98, Carbon Dioxide 24.0, Anion Gap 9, BUN 92 H, Creatinine 3.77 H, Estim Creat Clear Calc 9.40, Est GFR (MDRD) Af Amer 15 L, Est GFR (MDRD) Non-Af 12 L, BUN/Creatinine Ratio 24.4 H, Glucose 406 H, Calcium 8.6, Total Bilirubin 0.60, AST 21, ALT 32, Alkaline Phosphatase 93, Troponin I < 0.015, Total Protein 6.9, Albumin 2.7 L, Globulin 4.2, Albumin/Globulin Ratio 0.6 L 09/29/20 13:30: B-Natriuretic Peptide 483.9 H 09/29/20 13:50: Lactic Acid 1.2 09/29/20 14:10: Urine Color Yellow, Urine Clarity Clear, Urine pH 5.0, Ur Specific [place] 1.020, Urine Protein 100 H, Urine Glucose (UA) 250 H, Urine Ketones Negative, Urine Occult Blood Negative, Urine Nitrite Negative, Urine Bilirubin Negative, Urine Urobilinogen Normal, Ur Leukocyte Esterase 25 H, Urine RBC 0 SEEN, Urine WBC 0 SEEN, Ur Squamous Epith Cells 0 SEEN, Urine Bacteria 0 SEEN, Urine Mucus 0 SEEN 09/29/20 17:53: POC Glucose 331 H 09/29/20 21:08: POC Glucose 322 H 09/30/20 05:55: WBC 5.8, RBC 2.94 L, Hgb 9.3 L, Hct 29.5 L, MCV 100.3 H, MCH 31.6, MCHC 31.5 L, RDW Std Deviation 54.3 H, RDW Coeff of Kusum 14.7 H, Plt Count 73 L, MPV 12.0, Immature Gran % (Auto) 0.300, Neut % (Auto) 68.5, Lymph % (Auto) 14.9 L, [place] % (Auto) 13.0 H, Eos % (Auto) 2.6, Baso % (Auto) 0.7, Absolute Neuts (auto) 4.0, Absolute Lymphs (auto) 0.87, Nucleated RBC % 0 09/30/20 05:55: Sodium 133 L, Potassium 5.4 H, Chloride 102, Carbon Dioxide 25.0, Anion Gap 6, BUN 98 H, Creatinine 3.93 H, Estim Creat Clear Calc 9.02, Est GFR (MDRD) Af Amer 14 L, Est GFR (MDRD) Non-Af 12 L, BUN/Creatinine Ratio 24.9 H , Glucose 148 H, Calcium 8.6 09/30/20 09:21: POC Glucose 106 Current Medications Acetaminophen (Acetaminophen 325 Mg Tablet) 650 mg PO Q6H PRN PRN PRN Reason: Pain Score 1-10 Aspirin (Aspirin 81 Mg Tab.Chew) 81 mg PO DAILYCM [facility] Last Admin: 09/30/20 09:30 Dose: 81 mg Documented by: Atorvastatin Calcium (Atorvastatin Calcium 10 Mg Tablet) 10 mg PO QHS [facility] Dextrose (Dextrose 50%-Water 25 Gm/50 Ml Disp.Syrin) 0 gm IV X1 PRN; Protocol PRN Reason: Hypoglycemia Escitalopram Oxalate (Escitalopram Oxalate 10 Mg Tablet) 10 mg PO DAILY [facility] Last Admin: 09/30/20 09:30 Dose: 10 mg Documented by: Glucagon (Glucagon 1 Mg/Ml Syringe) 1 mg IM .X1 PRN PRN Reason: Hypoglycemia Heparin Sodium (Porcine) (Heparin Injection (Vial) 5,000 Unit/Ml Vial) 5,000 unit SC Q8 [facility] Last Admin: 09/30/20 05:34 Dose: 5,000 unit Documented by: Furosemide 500 mg/ N/A 50 mls @ 1 mls/hr CONT INF .Q50H [facility] Last Admin: 09/29/20 17:38 Dose: 10 mg/hr, 1 mls/hr Documented by: Sodium Chloride () 250 mls @ 15 mls/hr IV .[id number] PRN PRN Reason: Saline Flush Sodium Chloride () 250 mls @ 15 mls/hr IV .[id number] PRN PRN Reason: Additional IVPB Infusion Insulin Glargine (Insulin Glargine 100 Units/Ml Pen) 10 units SC BREAKFAST [facility] Last Admin: 09/30/20 10:09 Dose: Not Given Documented by: Insulin Glargine (Insulin Glargine 100 Units/Ml Pen) 10 units SC QHS [facility] Last Admin: 09/29/20 21:09 Dose: 10 u Documented by: Insulin Human Lispro (Insulin Lispro 100 Unit/Ml Insuln.Pen) 0 unit SC ACHS [facility]; Protocol Last Admin: 09/30/20 09:29 Dose: Not Given Documented by: Insulin Human Lispro (Insulin Lispro 100 Unit/Ml Insuln.Pen) 5 unit SC BREAKFAST [facility] Last Admin: 09/30/20 10:35 Dose: Not Given Documented by: Insulin Human Lispro (Insulin Lispro 100 Unit/Ml Insuln.Pen) 5 unit SC DINNER [facility] Last Admin: 09/29/20 17:54 Dose: 5 u Documented by: Insulin Human Lispro (Insulin Lispro 100 Unit/Ml Insuln.Pen) 5 unit SC LUNCH [facility] Lacosamide (Lacosamide 100 Mg Tablet) 100 mg PO DAILY [facility] Last Admin: 09/30/20 09:38 Dose: 100 mg Documented by: Nystatin (Nystatin Powder 15gm Bottle) 1 applic TOPICAL TID [facility]; Protocol Last Admin: 09/30/20 05:35 Dose: 1 applic Documented by: Polyethylene Glycol (Polyethylene Glycol 3350 17 Gm Packet) 17 gm PO BID [facility] Last Admin: 09/30/20 09:38 Dose: 17 gm Documented by: Sodium Chloride (0.9% Saline Lock 10 Ml Syringe) 10 - 40 ml IV UD PRN PRN Reason: SALINE FLUSH STROKE Vital Signs/Narrative: Vital Signs Temp Pulse Resp BP Pulse Ox 09/30/20 11:04 38 L 09/30/20 09:20 97.6 F L 43 L 18 107/52 L 99 09/30/20 07:34 38 L Medical Necessity - Tobacco Use Smoking Status: Former smoker Tobacco Use: Cigarettes Assessment/Plan All Active Problems Intractable low back pain (Acute) UTI (urinary tract infection) (Acute) Dehydration (Acute) Acute renal failure (Acute) Community acquired pneumonia (Acute) DEBBIE (acute kidney injury) (Acute) Breakthrough seizure (Acute) Acute respiratory failure with hypoxia (Acute) Thrombocytopenia (Acute) 1. Acute hypoxic respiratory failure secondary to acute on chronic diastolic CHF/HTN/HLD/bradycardia -We will place her on a Lasix drip given the degree with which she has edema and monitor her renal function closely -We will place her on a fluid restriction -Echo is pending -We will consult nephrology, she has not had any significant urine output while on the Lasix drip even with a Nicole in place and her creatinine has risen to 3.93 -Given her bradycardia today will not reinitiate her metoprolol. Given her rising creatinine we will hold her lisinopril, given her borderline blood pressures will hold her isosorbide -We will hold her Norvasc as this can lead to swelling -Continue with statin 2. Post ictal status post seizure -We will obtain an EEG -We will continue with her Vimpat, and may need to get a neurology consult after the EEG is read, however it could have been secondary to her hypoglycemia -If necessary can add Heber 3. IDDM 2/morbid obesity/CKD 4 -Does not appear that has been following a diet and did not take her insulin today -Blood sugars elevated to 406 -We will place her on her long-acting insulin at 10 units twice daily as well as sliding scale insulin and mealtime insulin. Also put her on an appropriate diet with appropriate calories -Accu-Cheks AC at bedtime -Discussed lifestyle modifications -She has had a significant increase in her creatinine over the last 9 months, will continue to monitor 4. Anxiety/depression -Stable -We will hold off on her trazodone and Lexapro secondary to her disorientation and somnolence Her care is complicated by diagnoses that she does not take medications for including rheumatoid arthritis and COPD DVT: Heparin Inpatient E&M: 12106 Subs Hosp L2
[2020-09-30 11:31] LABS: Bedside Glucose 134 mg/dL (70-110)
--- NOTE | 2020-09-30 13:50 | CASEMGMT ---
RN KAMILA attempted to call to discuss discharge planning. No answer, voice message left with return contact information.
--- NOTE | 2020-09-30 16:07 | CON.PCM_ITS ---
Reason for Consult Date of Consultation: 09/30/20 History of Present Illness: The patient is a 74 year old F Presented to the ER after a seizure. Patient does have past medical history for diabetes, chronic kidney disease as well. Patient is quite lethargic has not previously been on dialysis. Dialysis was discussed with the patient's and daughter who both agreed to have dialysis catheter placed at Bedside. Past Medical History Past Medical History (Chronic Problems): Chronic Problems CKD (chronic kidney disease) stage 4, GFR 15-29 ml/min (Chronic) Sciatica (Chronic) Anemia (Chronic) Acute exacerbation of CHF (congestive heart failure) (Chronic) Seizure disorder (Chronic) Stroke (Chronic) Coronary artery disease (Chronic) Depression (Chronic) Bipolar disorder (Chronic) Multiple personality disorder (Chronic) Restless legs syndrome (Chronic) Rheumatoid arthritis (Chronic) Generalized anxiety disorder (Chronic) ELENITA on CPAP (Chronic) COPD (chronic obstructive pulmonary disease) (Chronic) Peripheral neuropathy (Chronic) Esophageal reflux (Chronic) Depressive disorder (Chronic) 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) Obesity (Chronic) Hypertension (Chronic) Diabetes type 2, uncontrolled (Chronic) Hyperlipidemia (Chronic) Cerebrovascular disease (Chronic) Status post acute ischemic stroke No residual deficit Allergies ciprofloxacin [From Cipro] Allergy (Verified 09/29/20 13:37) Rash codeine Allergy (Verified 09/29/20 13:37) Shortness of breath Penicillins Allergy (Verified 09/29/20 13:37) Hives CILLINS Allergy (Uncoded 09/29/20 13:37) Unknown Home Medications: Ambulatory Orders Medication Instructions Recorded Isosorbide Mononitrate [Isosorbide 30 mg PO DAILY 04/10/15 Mononitrate ER] Insulin Lispro [Humalog KwikPen] 5 unit SUBCUT TIDCM 06/10/19 Insulin Glargine [Lantus SoloStar 16 units SUBCUT BID 06/29/19 Pen] traZODone [Desyrel] 25 mg PO QHS 06/29/19 Atorvastatin Calcium [Lipitor] 10 mg PO QHS 09/06/19 Ergocalciferol [Vitamin D] 50,000 unit PO KELLOGG 09/06/19 Gabapentin [Neurontin] 200 mg PO BID #0 09/06/19 Escitalopram Oxalate [Lexapro] 10 mg PO DAILY 05/05/20 Lisinopril [Prinivil] 10 mg PO DAILY 05/05/20 Torsemide [Demadex] 40 mg PO BID 05/05/20 Metoprolol Succinate [Toprol Xl] 75 mg PO DAILY 08/17/20 Amlodipine Besylate [Norvasc] 10 mg PO DAILY 09/29/20 Aspirin 81 mg PO DAILY 09/29/20 Furosemide [Lasix] 40 mg PO BID 09/29/20 Lacosamide [Vimpat] 100 mg PO DAILY 09/29/20 Surgical History: appendectomy, cataract, cholecystectomy, hysterectomy, tonsillectomy, - - Glaucoma, abdominal surgery for cyst. Psychiatric History: Anxiety, Bipolar, Depression, - - Multiple personality disorder. 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 Lives: With Family Smoking Status: Former smoker Tobacco Use: Cigarettes Alcohol: None Drugs: None - *Family History Maternal History Items: Cancer, Diabetes, Heart Disease, Hypertension Paternal History Items: Cancer, Heart Disease Review of Systems Unable to obtain accurate/complete ROS d/t: Patient is lethargic and falls asleep while trying to answer basic question Patient Problems: Active and Suspected Problems Debility (Acute) Shortness of breath (Acute) ELENITA (obstructive sleep apnea) (Acute) Morbid obesity with BMI of 50.0-59.9, adult (Acute) Iron deficiency anemia (Acute) Bradycardia (Acute) UTI (urinary tract infection) (Acute) Dehydration (Acute) Acute renal failure (Acute) DEBBIE (acute kidney injury) (Acute) Breakthrough seizure (Acute) Acute respiratory failure with hypoxia (Acute) Thrombocytopenia (Acute) - Physical Exam Vitals/I&O's: Vital Signs Temp Pulse Resp BP Pulse Ox 97.5 F L 44 L 20 H 111/58 L 97 09/30/20 15:20 09/30/20 15:20 09/30/20 15:20 09/30/20 15:20 09/30/20 15:20 Oxygen Flow Rate (L/min) 2 Oxygen Delivery Method Nasal Cannula Weight: 262 lb 12.656 oz Body Mass Index (BMI) 50.8 Finger Stick Blood Glucose 410 Intake and Output for Last 24 Hours 09/28/20 09/29/20 09/30/20 23:59 23:59 23:59 Intake Total 620 / 620 240 / 240 Output Total 350 / 350 150 / 150 Balance 270 / 270 90 / 90 General: Cooperative, Lethargic Lungs: Normal air movement Cardiovascular: Regular rate Abdomen: Soft, Non Tender, Non-Distended Extremities: No clubbing, No cyanosis Neurological: - - Patient is a bit lethargic unable to test Psych/Mental Status: - - Patient is lethargic but does open her eyes to name and answer basic questions Laboratory Results 09/29/20 17:53: POC Glucose 331 H 09/29/20 21:08: POC Glucose 322 H 09/30/20 05:55: WBC 5.8, RBC 2.94 L, Hgb 9.3 L, Hct 29.5 L, MCV 100.3 H, MCH 31.6, MCHC 31.5 L, RDW Std Deviation 54.3 H, RDW Coeff of Kusum 14.7 H, Plt Count 73 L, MPV 12.0, Immature Gran % (Auto) 0.300, Neut % (Auto) 68.5, Lymph % (Auto) 14.9 L, [place] % (Auto) 13.0 H, Eos % (Auto) 2.6, Baso % (Auto) 0.7, Absolute Neuts (auto) 4.0, Absolute Lymphs (auto) 0.87, Nucleated RBC % 0 09/30/20 05:55: Sodium 133 L, Potassium 5.4 H, Chloride 102, Carbon Dioxide 25.0, Anion Gap 6, BUN 98 H, Creatinine 3.93 H, Estim Creat Clear Calc 9.02, Est GFR (MDRD) Af Amer 14 L, Est GFR (MDRD) Non-Af 12 L, BUN/Creatinine Ratio 24.9 H, Glucose 148 H, Calcium 8.6 09/30/20 05:55: TSH 0.90 09/30/20 09:21: POC Glucose 106 09/30/20 11:25: POC Glucose 134 H Current Medications Acetaminophen (Acetaminophen 325 Mg Tablet) 650 mg PO Q6H PRN PRN PRN Reason: Pain Score 1-10 Aspirin (A[facility]in 81 Mg Tab.Chew) [facility] Last Admin: 09/30/20 09:30 Dose: 81 mg Documented by: Atorvastatin Calcium (Atorvastatin Calcium 10 Mg Tablet) 10 mg PO QHS [facility] Dextrose (Dextrose 50%-Water 25 Gm/50 Ml Disp.Syrin) 0 gm IV X1 PRN; Protocol PRN Reason: Hypoglycemia Escitalopram Oxalate (Escitalopram Oxalate 10 Mg Tablet) 10 mg PO DAILY [facility] Last Admin: 09/30/20 09:30 Dose: 10 mg Documented by: Glucagon (Glucagon 1 Mg/Ml Syringe) 1 mg IM .X1 PRN PRN Reason: Hypoglycemia Heparin Sodium (Porcine) (Heparin Injection (Vial) 5,000 Unit/Ml Vial) 5,000 unit SC Q8 [facility] Last Admin: 09/30/20 14:06 Dose: 5,000 unit Documented by: Furosemide 500 mg/ N/A 50 mls @ 1 mls/hr CONT INF .Q50H [facility] Last Admin: 09/29/20 17:38 Dose: 10 mg/hr, 1 mls/hr Documented by: Sodium Chloride () 250 mls @ 15 mls/hr IV .[id number] PRN PRN Reason: Saline Flush Sodium Chloride () 250 mls @ 15 mls/hr IV .[id number] PRN PRN Reason: Additional IVPB Infusion Insulin Glargine (Insulin Glargine 100 Units/Ml Pen) 10 units SC BREAKFAST [facility] Last Admin: 09/30/20 10:09 Dose: Not Given Documented by: Insulin Glargine (Insulin Glargine 100 Units/Ml Pen) 10 units SC QHS [facility] Last Admin: 09/29/20 21:09 Dose: 10 u Documented by: Insulin Human Lispro (Insulin Lispro 100 Unit/Ml Insuln.Pen) 0 unit SC ACHS [facility]; Protocol Last Admin: 09/30/20 11:32 Dose: Not Given Documented by: Insulin Human Lispro (Insulin Lispro 100 Unit/Ml Insuln.Pen) 5 unit SC BREAKFAST [facility] Last Admin: 09/30/20 10:35 Dose: Not Given Documented by: Insulin Human Lispro (Insulin Lispro 100 Unit/Ml Insuln.Pen) 5 unit SC [facility] Last Admin: 09/29/20 17:54 Dose: 5 u Documented by: Insulin Human Lispro (Insulin Lispro 100 Unit/Ml Insuln.Pen) 5 unit SC LUNCH [facility] Last Admin: 09/30/20 13:25 Dose: Not Given Documented by: Lacosamide (Lacosamide 100 Mg Tablet) 100 mg PO DAILY [facility] Last Admin: 03/31/21 09:38 Dose: 100 mg Documented by: Nystatin (Nystatin Powder 15gm Bottle) 1 applic TOPICAL TID [facility]; Protocol Last Admin: 09/30/20 14:06 Dose: 1 applic Documented by: Polyethylene Glycol (Polyethylene Glycol 3350 17 Gm Packet) 17 gm PO BID [facility] Last Admin: 09/30/20 09:38 Dose: 17 gm Documented by: Sodium Chloride (0.9% Saline Lock 10 Ml Syringe) 10 - 40 ml IV UD PRN PRN Reason: SALINE FLUSH Assessment/Plan All Active Problems Debility (Acute) Shortness of breath (Acute) ELENITA (obstructive sleep apnea) (Acute) Morbid obesity with BMI of 50.0-59.9, adult (Acute) Iron deficiency anemia (Acute) Hyperkalemia (Acute) Bradycardia (Acute) Intractable low back pain (Acute) UTI (urinary tract infection) (Acute) Dehydration (Acute) Acute renal failure (Acute) Community acquired pneumonia (Acute) DEBBIE (acute kidney injury) (Acute) Breakthrough seizure (Acute) Acute respiratory failure with hypoxia (Acute) Thrombocytopenia (Acute) 74-year-old female with acute on chronic kidney disease, hyperkalemia request for an urgent dialysis catheter 1. Consent was obtained from the daughter and did also asked patient at bedside she was agreeable as well--patient was more confused today that she did not sign the consent. We will plan to place temporary dialysis catheter. Discussed risk including not limited to bleeding, infection, further surgery for tunneled dialysis catheter. Patient and her family no further questions this time. Paige Andrade M.D. Pager: [phone] [facility] [address] [place] [address], Outpatient [place], [address] [place] [id number] Office: [phone] Inpatient E&M: 87312 Init Hosp L3
[2020-09-30 16:35] LABS: Phosphorus 5.4 mg/dL (2.5-4.9)
--- NOTE | 2020-09-30 16:59 | PCM.OPRPT ---
Report of Operation Date of Procedure: 09/30/20 Pre-Operative Diagnosis: Acute kidney failure on chronic, hyperkalemia Post-Operative Diagnosis: Same Surgery/Procedure Performed:: Placement of right IJ temporary dialysis catheter Type of Anesthesia:: Local Estimated Blood Loss (mL): 10 cc Description of Procedure: Procedure: A time-out was completed to verify correct patient, indication, medication allergies, procedure, coagulation studies, informed consent signed, and equipment needed. The patient was placed in the supine position for a central line placement to the right IJ vein. The patients right neck was prepped using chlorhexidine and a full body sterile drape was applied. 1% lidocaine was used to anesthetize the surrounding skin. A [employer] Elite 12 Portuguese x16 cm (ref [id number] lot [id number]) Temporary hemodialysis catheter introduced into the internal jugular vein using the modified Seldinger technique with the assistance of ultrasound. The site was dilated up twice in a stepwise fashion. The catheter was threaded smoothly over the guidewire, the guidewire was removed easily, nonpulsatile blood returned. All ports were aspirated of air and flushed with sterile saline Then flushed with 1:10,000 heparin 1.3 mL to each port. The catheter was sutured in place and covered with an occlusive dressing. Patient tolerated procedure well. Chest x-ray was ordered.?Chest x-ray reviewed catheter appears to be in place. Official read pending Grafts/Implants Used: [employer]kar Elite 12 Portuguese x16 cm (ref [id number] lot [id number]) - Complications none
--- NOTE | 2020-09-30 17:00 | RAD_ITS ---
STUDY: X-RAY CHEST REASON FOR EXAM: Female, 74 years old. Catheter placement TECHNIQUE: Frontal view COMPARISON: 06/01/2020 FINDINGS: The lungs are not fully expanded. Bilateral atelectasis. Possible basilar infiltrates bilaterally. Normal size heart. Normal mediastinum and elva. Normal visualized pulmonary arteries. Normal visualized aortic arch and descending thoracic aorta. Mild degenerative changes of the thoracic spine. Normal visualized ribs, clavicles, and shoulders. There is no demonstrated abnormality of the visualized soft tissue structures of the upper abdomen. RAD/Chest 1 View (Portable) IMPRESSION: Basilar atelectasis/infiltrates bilaterally. Electronically Signed: Tao Simpson DO at 18:41 EDT Tel [phone], Service support ,
[2020-09-30] MEDS: Insulin Lispro 100 UNIT/ML INSULN.PEN SC ×2 (17:19)
[2020-09-30] MEDS: Heparin 10,000 UNITS/10 ML Vial IV (17:20)
[2020-09-30 17:25] LABS: Bedside Glucose 153 mg/dL (70-110)
--- NOTE | 2020-09-30 18:31 | PCM.CONS.R ---
Consultation - Renal 09/30/20 PCP/ Referring MD: Requesting physician: [] Primary care physician: Dr. Bailey Toribio MD Reason for Consultation:: DEBBIE on CKD stage 3 - History of Present Illness History of Present Illness: The patient is a 74 year old F with CKD stage 3 baseline creatinine 1.5 in December 2019 with underlying diabetic nephropathy, on diuretics and ACEI, BBlocker for diastolic HF. She was seen on consult in January during hospitalization in [place] for DEBBIE on CKD. Creatinine 3.44 improved to 2.44 on discharge in February 2020. She failed to f/u in the office. She was admitted on 09/29/20 for seizure like activity witnessed while at home with physical therapy. She fell to the ground with jerking movements of her head. She is reported to have progressive decline in health past few weeks since discharged from [facility]. She was reported to be coherent, answering questions this morning but this afternoon is lethargic. Her spouse is at bedside providing history. She was having seizure-like activity staring into space, shaking her head with confusion, disorientation after these episodes. She was at [facility] in August for a week to evaluate for seizures including EEG then subsequently sent to [facility] for about 7 weeks where she was then discharged to home. She had poor appetite past few days, increased leg swelling. She currently is bradycardic with HR in the 40's with BBlocker discontinued She was started on lasix drip with minimal urine output. BUN and creatinine continues to rise. Creatinine 3.77 to 3.93 BUN 98 K 5.4. She was taken off Lisinopril. BP stable. Echo in progress. She had conversations with the family about not wanting dialysis in the past but she is unable to make an informed decision now due to lethargy. Pt daughter Ilsa and pt spouse wants to initiate dialysis. - Allergies Allergies: Allergies ciprofloxacin [From Cipro] Allergy (Verified 09/29/20 13:37) Rash codeine Allergy (Verified 09/29/20 13:37) Shortness of breath Penicillins Allergy (Verified 09/29/20 13:37) Hives CILLINS Allergy (Uncoded 09/29/20 13:37) Unknown - Current Medications Current Medications: Current Medications Acetaminophen (Acetaminophen 325 Mg Tablet) 650 mg PO Q6H PRN PRN PRN Reason: Pain Score 1-10 Aspirin (Aspirin 81 Mg Tab.Chew) 81 mg PO DAILYCM [facility] Last Admin: 09/30/20 09:30 Dose: 81 mg Documented by: Atorvastatin Calcium (Atorvastatin Calcium 10 Mg Tablet) 10 mg PO QHS [facility] Dextrose (Dextrose 50%-Water 25 Gm/50 Ml Disp.Syrin) 0 gm IV X1 PRN; Protocol PRN Reason: Hypoglycemia Escitalopram Oxalate (Escitalopram Oxalate 10 Mg Tablet) 10 mg PO DAILY [facility] Last Admin: 09/30/20 09:30 Dose: 10 mg Documented by: Glucagon (Glucagon 1 Mg/Ml Syringe) 1 mg IM .X1 PRN PRN Reason: Hypoglycemia Heparin Sodium (Porcine) (Heparin Injection (Vial) 5,000 Unit/Ml Vial) 5,000 unit SC Q8 [facility] Last Admin: 09/30/20 14:06 Dose: 5,000 unit Documented by: Sodium Chloride () 250 mls @ 15 mls/hr IV .[id number] PRN PRN Reason: Saline Flush Sodium Chloride () 250 mls @ 15 mls/hr IV .[id number] PRN PRN Reason: Additional IVPB Infusion Insulin Glargine (Insulin Glargine 100 Units/Ml Pen) 10 units SC BREAKFAST [facility] Last Admin: 09/30/20 10:09 Dose: Not Given Documented by: Insulin Glargine (Insulin Glargine 100 Units/Ml Pen) 10 units SC QHS [facility] Last Admin: 09/29/20 21:09 Dose: 10 u Documented by: Insulin Human Lispro (Insulin Lispro 100 Unit/Ml Insuln.Pen) 0 unit SC ACHS [facility]; Protocol Last Admin: 09/30/20 17:19 Dose: 2 u Documented by: Insulin Human Lispro (Insulin Lispro 100 Unit/Ml Insuln.Pen) 5 unit SC BREAKFAST [facility] Last Admin: 09/30/20 10:35 Dose: Not Given Documented by: Insulin Human Lispro (Insulin Lispro 100 Unit/Ml Insuln.Pen) 5 unit SC DINNER [facility] Last Admin: 09/30/20 17:19 Dose: 5 u Documented by: Insulin Human Lispro (Insulin Lispro 100 Unit/Ml Insuln.Pen) 5 unit SC LUNCH [facility] Last Admin: 09/30/20 13:25 Dose: Not Given Documented by: Lacosamide (Lacosamide 100 Mg Tablet) 100 mg PO DAILY [facility] Last Admin: 09/30/20 09:38 Dose: 100 mg Documented by: Nystatin (Nystatin Powder 15gm Bottle) 1 applic TOPICAL TID [facility]; Protocol Last Admin: 09/30/20 14:06 Dose: 1 applic Documented by: Polyethylene Glycol (Polyethylene Glycol 3350 17 Gm Packet) 17 gm PO BID [facility] Last Admin: 09/30/20 09:38 Dose: 17 gm Documented by: Sodium Chloride (0.9% Saline Lock 10 Ml Syringe) 10 - 40 ml IV UD PRN PRN Reason: SALINE FLUSH - Past Medical History Past Medical History (Chronic Problems): Chronic Problems CKD (chronic kidney disease) stage 4, GFR 15-29 ml/min (Chronic) Sciatica (Chronic) Anemia (Chronic) Acute exacerbation of CHF (congestive heart failure) (Chronic) Seizure disorder (Chronic) Stroke (Chronic) Coronary artery disease (Chronic) Depression (Chronic) Bipolar disorder (Chronic) Multiple personality disorder (Chronic) Restless legs syndrome (Chronic) Rheumatoid arthritis (Chronic) Generalized anxiety disorder (Chronic) ELENITA on CPAP (Chronic) COPD (chronic obstructive pulmonary disease) (Chronic) Peripheral neuropathy (Chronic) Esophageal reflux (Chronic) Depressive disorder (Chronic) 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 - Social History Smoking Status: Former smoker Alcohol: None Drugs: None - Family History Maternal History Items: Cancer, Diabetes, Heart Disease, Hypertension Paternal History Items: Cancer, Heart Disease Review of Systems Constitutional: Reports: Anorexia, Weakness, Fatigue. Denies: Chills, Fever Cardiovascular: Reports: Edema. Denies: Chest Pain Respiratory: Denies: Cough, Shortness of Breath Gastrointestinal: Reports: - - anorexia. Denies: Abdominal Pain, Nausea, Vomiting Genitourinary: Reports: - - decreased urine output Skin: Denies: Rash Neurological: Reports: Tremor, Seizures Psychiatric: Reports: Anxiety, Depression, - - bipolar Hematologic/ Lymphatic: Reports: Anemia Unable to obtain accurate/complete ROS d/t: pt unable to provide history, pt spouse at bedside Patient Problems: Active and Suspected Problems Debility (Acute) Shortness of breath (Acute) ELENITA (obstructive sleep apnea) (Acute) Morbid obesity with BMI of 50.0-59.9, adult (Acute) Iron deficiency anemia (Acute) Bradycardia (Acute) UTI (urinary tract infection) (Acute) Dehydration (Acute) Acute renal failure (Acute) DEBBIE (acute kidney injury) (Acute) Breakthrough seizure (Acute) Acute respiratory failure with hypoxia (Acute) Thrombocytopenia (Acute) - Physical Exam Vitals/I&O's: Vital Signs Temp Pulse Resp BP Pulse Ox 97.4 F L 44 L 20 H 143/84 H 96 09/30/20 17:13 09/30/20 17:13 09/30/20 17:13 09/30/20 17:13 09/30/20 17:13 Oxygen Flow Rate (L/min) 2 Oxygen Delivery Method Nasal Cannula Weight: 119.2 kg Body Mass Index (BMI) 50.8 Finger Stick Blood Glucose 410 Intake and Output for Last 24 Hours 09/28/20 09/29/20 09/30/20 23:59 23:59 23:59 Intake Total 620 / 620 384.47 / 384.47 Output Total 350 / 350 250 / 250 Balance 270 / 270 134.47 / 134.47 General: Confused, Disoriented, Lethargic, Non-Cooperative Oral: Dry Mucosa Neck: Supple, No JVD Lungs: Clear to auscultation, Diminished Abdomen: Bowel Sounds Present, Soft, Non Tender, Non-Distended, Obese Extremities: Edema Skin: No rashes Musculoskeletal: - - gen weakness Neurological: - - unable to assess due to MS changes, somnolent Psych/Mental Status: - - confused, lethargic Laboratory Results 09/29/20 21:08: POC Glucose 322 H 09/30/20 05:55: WBC 5.8, RBC 2.94 L, Hgb 9.3 L, Hct 29.5 L, MCV 100.3 H, MCH 31.6, MCHC 31.5 L, RDW Std Deviation 54.3 H, RDW Coeff of Kusum 14.7 H, Plt Count 73 L, MPV 12.0, Immature Gran % (Auto) 0.300, Neut % (Auto) 68.5, Lymph % (Auto) 14.9 L, [place] % (Auto) 13.0 H, Eos % (Auto) 2.6, Baso % (Auto) 0.7, Absolute Neuts (auto) 4.0, Absolute Lymphs (auto) 0.87, Nucleated RBC % 0 09/30/20 05:55: Sodium 133 L, Potassium 5.4 H, Chloride 102, Carbon Dioxide 25.0, Anion Gap 6, BUN 98 H, Creatinine 3.93 H, Estim Creat Clear Calc 9.02, Est GFR (MDRD) Af Amer 14 L, Est GFR (MDRD) Non-Af 12 L, BUN/Creatinine Ratio 24.9 H, Glucose 148 H, Calcium 8.6 09/30/20 05:55: TSH 0.90 09/30/20 05:55: Phosphorus 5.4 H 09/30/20 09:21: POC Glucose 106 09/30/20 11:25: POC Glucose 134 H 09/30/20 17:08: POC Glucose 153 H Clinical Impression(s) from Imaging Studies Echocardiogram 09/29/20 16:49 Interpretation Summary The study was technically difficult. Left ventricular systolic function is normal. The estimated ejection fraction is 55 %. Severely dilated right ventricle. Moderate global right ventricular systolic dysfunction. Mild (1+) eccentric mitral valve insufficiency. Poor coaptation of the tricuspid valve apparatus. Moderately severe (3+) tricuspid valve insufficiency. Calcified aortic root. Unable to estimate RV systolic pressure due to insufficient tricuspid regurgitant envelope. No evidence for diastolic dysfunction. Ordering Physician: Lazaro Lee Referring Physician: Bailey Toribio Performed By: Rosemary Sanchez, RDMARANDA Chest X-Ray 09/30/20 17:00 IMPRESSION: Basilar atelectasis/infiltrates bilaterally. Electronically Signed: Tao Simpson DO at 18:41 EDT Tel [phone], Service support , Current Medications Acetaminophen (Acetaminophen 325 Mg Tablet) 650 mg PO Q6H PRN PRN PRN Reason: Pain Score 1-10 Aspirin (Aspirin 81 Mg Tab.Chew) 81 mg PO DAILYCM [facility] Last Admin: 09/30/20 09:30 Dose: 81 mg Documented by: Atorvastatin Calcium (Atorvastatin Calcium 10 Mg Tablet) 10 mg PO QHS [facility] Dextrose (Dextrose 50%-Water 25 Gm/50 Ml Disp.Syrin) 0 gm IV X1 PRN; Protocol PRN Reason: Hypoglycemia Escitalopram Oxalate (Escitalopram Oxalate 10 Mg Tablet) 10 mg PO DAILY [facility] Last Admin: 09/30/20 09:30 Dose: 10 mg Documented by: Glucagon (Glucagon 1 Mg/Ml Syringe) 1 mg IM .X1 PRN PRN Reason: Hypoglycemia Heparin Sodium (Porcine) (Heparin Injection (Vial) 5,000 Unit/Ml Vial) 5,000 unit SC Q8 [facility] Last Admin: 09/30/20 14:06 Dose: 5,000 unit Documented by: Sodium Chloride () 250 mls @ 15 mls/hr IV .[id number] PRN PRN Reason: Saline Flush Sodium Chloride () 250 mls @ 15 mls/hr IV .[id number] PRN PRN Reason: Additional IVPB Infusion Insulin Glargine (Insulin Glargine 100 Units/Ml Pen) 10 units SC BREAKFAST [facility] Last Admin: 09/30/20 10:09 Dose: Not Given Documented by: Insulin Glargine (Insulin Glargine 100 Units/Ml Pen) 10 units SC QHS [facility] Last Admin: 09/29/20 21:09 Dose: 10 u Documented by: Insulin Human Lispro (Insulin Lispro 100 Unit/Ml Insuln.Pen) 0 unit SC ACHS [facility]; Protocol Last Admin: 09/30/20 17:19 Dose: 2 u Documented by: Insulin Human Lispro (Insulin Lispro 100 Unit/Ml Insuln.Pen) 5 unit SC BREAKFAST [facility] Last Admin: 09/30/20 10:35 Dose: Not Given Documented by: Insulin Human Lispro (Insulin Lispro 100 Unit/Ml Insuln.Pen) 5 unit SC DINNER [facility] Last Admin: 09/30/20 17:19 Dose: 5 u Documented by: Insulin Human Lispro (Insulin Lispro 100 Unit/Ml Insuln.Pen) 5 unit SC LUNCH [facility] Last Admin: 09/30/20 13:25 Dose: Not Given Documented by: Lacosamide (Lacosamide 100 Mg Tablet) 100 mg PO DAILY [facility] Last Admin: 09/30/20 09:38 Dose: 100 mg Documented by: Nystatin (Nystatin Powder 15gm Bottle) 1 applic TOPICAL TID [facility]; Protocol Last Admin: 09/30/20 14:06 Dose: 1 applic Documented by: Polyethylene Glycol (Polyethylene Glycol 3350 17 Gm Packet) 17 gm PO BID [facility] Last Admin: 09/30/20 09:38 Dose: 17 gm Documented by: Sodium Chloride (0.9% Saline Lock 10 Ml Syringe) 10 - 40 ml IV UD PRN PRN Reason: SALINE FLUSH Assessment/Plan All Active Problems Debility (Acute) Shortness of breath (Acute) ELENITA (obstructive sleep apnea) (Acute) Morbid obesity with BMI of 50.0-59.9, adult (Acute) Iron deficiency anemia (Acute) Hyperkalemia (Acute) Bradycardia (Acute) Intractable low back pain (Acute) UTI (urinary tract infection) (Acute) Dehydration (Acute) Acute renal failure (Acute) Community acquired pneumonia (Acute) DEBBIE (acute kidney injury) (Acute) Breakthrough seizure (Acute) Acute respiratory failure with hypoxia (Acute) Thrombocytopenia (Acute) 1. Acute on CKD Stage 3. Baseline creatinine 1.5 eGFR 40cc/min in December 2019 likely due to diabetes with DEBBIE event in January due to dehydration with creatinine 3.6 improved to 2.29. Creatinine 3.44 in May 2020, 2.44 on 08/17/20 now at 3.9 BUN 98. Pt on loop diuretics and Lisinopril at home, both discontinued. Discussed with pt spouse at bedside and pt dtr Ilsa about initiating dialysis today due to altered mental status that may be from seizure activity along with encephalopathy from renal failure. Pt expressed to family in the past that she did not want dialysis. She is unable to make that decision now due to her confusional state. Pt dtr Ilsa and pt spouse wants her to be full code and wants dialysis treatment for pt. 2. Hyperkalemia correct with dialysis. Off lisinopril 3. Bradycardia off BBlocker 4. Diastolic HF with mild leg edema. Oxygenation stable. Urine output poor with lasix drip. 5. Iron def anemia iv iron if needed 6. Seizure activity on vimpat EEG pending 7. Encephalopathy. Possible post ictal. 8. DM type 2 with nephropathy more than 60 min spent on discussing case with family and nursing staff at bedside, pt evaluation, collaboration of care with hospitalist, general surgeon.
[2020-09-30] MEDS: Acetaminophen 325 MG Tablet 650 MG PO (19:55)
[2020-09-30 20:08] LABS: Hepatitis B Surface Antibody Non-Reactive
[2020-09-30 20:22] LABS: Hepatitis B Surface Antigen Non-Reactive (Nonreactive)
--- NOTE | 2020-09-30 21:23 | DIALYSIS ---
first hemodialysis completed x 2.5 hrs. Access via right neck temp HD cath. no fluid removal. See HD flowsheet on chart.
[2020-09-30] MEDS: Atorvastatin Calcium 10 MG Tablet PO (21:48)
[2020-09-30 22:36] LABS: Bedside Glucose 140 mg/dL (70-110)
[2020-10-01] VITALS (9 sets, daily range): BP systolic 112–132; BP diastolic 42–88; PULSE 51–63; RESP 16–20; TEMP 36.4–36.8; O2SAT 94–99
[2020-10-01] MEDS: Heparin 10,000 UNITS/10 ML Vial IV (00:31)
[2020-10-01 05:33] LABS: Absolute Lymphocyte Count 0.86 X10^3/uL (0.83-4.51); Basophil# 0.04 X10^3/uL; Basophil% 0.8 % (0-1); Eosinophil# 0.15 X10^3/uL; Eosinophils% 3.2 % (0-5); Hemoglobin 9.2 g/dL (12.0-15.0); Lymphocyte # 0.86 X10^3/ul (4.0); Lymphocyte % 18.2 % (19-41); Mean Corp Hgb Conc 30.7 g/dL (32-36); Mean Corpuscular Hgb 30.9 pg (27.0-32.0); Mean Corpuscular Volume 100.7 fL (81-99); Monocyte# 0.67 X10^3/uL; Monocyte% 14.2 % (0-10); NRBC Flagged by Analyzer 0 % (0-5); Neutrophil # 2.98 X10^3/uL (2.7-7.7); Neutrophil % 63.2 % (47-70); POSITIVE COUNT YES; Platelet Count 64 K/mm3 (150-450); RBC Distribution Width SD 55.7 fl (35.1-43.9); Red Blood Count 2.98 M/mm3 (4.2-5.4); White Blood Count 4.7 K/mm3 (4.4-11.0)
[2020-10-01] MEDS: Acetaminophen 325 MG Tablet 650 MG PO ×2 (05:36→15:35)
[2020-10-01] MEDS: Nystatin Powder 15gm Bottle 1 APPLIC TOPICAL ×3 (05:37→22:06)
[2020-10-01] MEDS: Heparin Injection (Vial) 5,000 UNIT/ML VIAL 5000 UNIT SC ×3 (05:37→22:06)
[2020-10-01 05:52] LABS: ALB/GLOB Ratio 0.6 RATIO (0.9-2.4); AST(SGOT) 22 U/L (15-37); Alanine Aminotransfer ALT/SGPT 23 U/L (13-56); Albumin, Serum 2.1 g/dL (3.2-5.0); Alkaline Phosphatase 75 U/L (45-117); Anion Gap 8 (5-15); BUN 72 mg/dL (7-18); BUN/Creat Ratio 23.5 RATIO (10-20); Calcium,Total 7.8 mg/dL (8.5-10.1); Chloride 101 mmol/L (98-107); Creatinine, Serum 3.07 mg/dL (0.55-1.02); EST Glomerular Filtration Rate 16 mL/min (>60); Est Glom Filt Rate - Afr Amer 19 mL/min (>60); Estimated Creatinine Clearance 11.55 ml/min; Ferritin 141 ng/mL (8-252); Globulin 3.5 g/dL (2.2-4.2); Glucose 115 mg/dL (74-106); Iron 35 ug/dL (50-170); Iron Binding Capacity,Total 338 ug/dL (250-450); PERCENT IRON SATURATION 10.4 % (15.0-55.0); Potassium 4.8 mmol/L (3.5-5.1); Protein, Total 5.6 g/dL (6.4-8.2); Sodium Level 134 mmol/L (136-145)
--- NOTE | 2020-10-01 08:13 | PN.SURG_ITS ---
Patient Problems: Active and Suspected Problems Debility (Acute) Shortness of breath (Acute) ELENITA (obstructive sleep apnea) (Acute) Morbid obesity with BMI of 50.0-59.9, adult (Acute) Iron deficiency anemia (Acute) Bradycardia (Acute) UTI (urinary tract infection) (Acute) Dehydration (Acute) Acute renal failure (Acute) DEBBIE (acute kidney injury) (Acute) Breakthrough seizure (Acute) Acute respiratory failure with hypoxia (Acute) Thrombocytopenia (Acute) Subjective: Patient got dialysis yesterday with no issues using the right IJ temporary dialysis catheter. Patient is alert this morning does state that she does not want to be DNR and wants to be a full code. Patient states she does want the tunneled dialysis catheter for future dialysis. - Physical Exam Vitals/I&O's: Vital Signs Temp Pulse Resp BP Pulse Ox 97.5 F L 52 L 18 120/46 L 99 10/01/20 04:25 10/01/20 07:00 10/01/20 04:25 10/01/20 04:25 10/01/20 07:22 Oxygen Flow Rate (L/min) 2 Oxygen Delivery Method Nasal Cannula Weight: 262 lb 12.656 oz Body Mass Index (BMI) 50.8 Finger Stick Blood Glucose 410 Intake and Output for Last 24 Hours 09/29/20 09/30/20 10/01/20 23:59 23:59 23:59 Intake Total 620 / 620 384.47 / 444.47 160 / 160 Output Total 350 / 350 250 / 425 425 / 425 Balance 270 / 270 134.47 / 19.47 -265 / -265 General: Alert, Oriented x3, Cooperative, No apparent distress HEENT: Atraumatic Neck: - - Right IJ temporary dialysis catheter in place Lungs: Clear to auscultation Cardiovascular: Regular rate Laboratory Results 09/30/20 05:55: TSH 0.90 09/30/20 05:55: Phosphorus 5.4 H 09/30/20 09:21: POC Glucose 106 09/30/20 11:25: POC Glucose 134 H 09/30/20 17:08: POC Glucose 153 H 09/30/20 19:00: Hep Bs Antigen Non-Reactive 09/30/20 19:00: Hep Bs Antibody Non-Reactive 09/30/20 21:44: POC Glucose 140 H 10/01/20 05:08: WBC 4.7, RBC 2.98 L, Hgb 9.2 L, Hct 30.0 L, MCV 100.7 H, MCH 30.9, MCHC 30.7 L, RDW Std Deviation 55.7 H, RDW Coeff of Kusum 15.0 H, Plt Count 64 L, MPV 12.0, Immature Gran % (Auto) 0.400, Neut % (Auto) 63.2, Lymph % (Auto) 18.2 L, [place] % (Auto) 14.2 H, Eos % (Auto) 3.2, Baso % (Auto) 0.8, Absolute N euts (auto) 3.0, Absolute Lymphs (auto) 0.86, Nucleated RBC % 0 10/01/20 05:08: Sodium 134 L, Potassium 4.8, Chloride 101, Carbon Dioxide 25.0, Anion Gap 8, BUN 72 H, Creatinine 3.07 H, Estim Creat Clear Calc 11.55, Est GFR (MDRD) Af Amer 19 L, Est GFR (MDRD) Non-Af 16 L, BUN/Creatinine Ratio 23.5 H, Glucose 115 H, Calcium 7.8 L, Iron 35 L, TIBC 338, Iron Saturation 10.4 L, Ferritin 141, Total Bilirubin 0.50, AST 22, ALT 23, Alkaline Phosphatase 75, Total Protein 5.6 L, Albumin 2.1 L, Globulin 3.5, Albumin/Globulin Ratio 0.6 L Current Medications Acetaminophen (Acetaminophen 325 Mg Tablet) 650 mg PO Q6H PRN PRN PRN Reason: Pain Score 1-10 Last Admin: 10/01/20 05:36 Dose: 650 mg Documented by: Aspirin (A[facility]in 81 Mg Tab.Chew) [facility] Last Admin: 09/30/20 09:30 Dose: 81 mg Documented by: Atorvastatin Calcium (Atorvastatin Calcium 10 Mg Tablet) 10 mg PO QHS [facility] Last Admin: 09/30/20 21:48 Dose: 10 mg Documented by: Dextrose (Dextrose 50%-Water 25 Gm/50 Ml Disp.Syrin) 0 gm IV X1 PRN; Protocol PRN Reason: Hypoglycemia Escitalopram Oxalate (Escitalopram Oxalate 10 Mg Tablet) 10 mg PO DAILY [facility] Last Admin: 09/30/20 09:30 Dose: 10 mg Documented by: Glucagon (Glucagon 1 Mg/Ml Syringe) 1 mg IM .X1 PRN PRN Reason: Hypoglycemia Heparin Sodium (Porcine) (Heparin Injection (Vial) 5,000 Unit/Ml Vial) 5,000 unit SC Q8 [facility] Last Admin: 10/01/20 05:37 Dose: 5,000 unit Documented by: Sodium Chloride () 250 mls @ 15 mls/hr IV .[id number] PRN PRN Reason: Saline Flush Sodium Chloride () 250 mls @ 15 mls/hr IV .[id number] PRN PRN Reason: Additional IVPB Infusion Insulin Glargine (Insulin Glargine 100 Units/Ml Pen) 10 units SC BREAKFAST [facility] Last Admin: 09/30/20 10:09 Dose: Not Given Documented by: Insulin Glargine (Insulin Glargine 100 Units/Ml Pen) 10 units SC QHS [facility] Last Admin: 09/30/20 21:48 Dose: 10 u Documented by: Insulin Human Lispro (Insulin Lispro 100 Unit/Ml Insuln.Pen) 0 unit SC ACHS [facility]; Protocol Last Admin: 09/30/20 21:48 Dose: Not Given Documented by: Insulin Human Lispro (Insulin Lispro 100 Unit/Ml Insuln.Pen) 5 unit SC BREAKFAST [facility] Last Admin: 09/30/20 10:35 Dose: Not Given Documented by: Insulin Human Lispro (Insulin Lispro 100 Unit/Ml Insuln.Pen) 5 unit SC DINNER [facility] Last Admin: 09/30/20 17:19 Dose: 5 u Documented by: Insulin Human Lispro (Insulin Lispro 100 Unit/Ml Insuln.Pen) 5 unit SC LUNCH [facility] Last Admin: 09/30/20 13:25 Dose: Not Given Documented by: Lacosamide (Lacosamide 100 Mg Tablet) 100 mg PO DAILY [facility] Last Admin: 09/30/20 09:38 Dose: 100 mg Documented by: Nystatin (Nystatin Powder 15gm Bottle) 1 applic TOPICAL TID [facility]; Protocol Last Admin: 10/01/20 05:37 Dose: 1 applic Documented by: Polyethylene Glycol (Polyethylene Glycol 3350 17 Gm Packet) 17 gm PO BID [facility] Last Admin: 09/30/20 21:49 Dose: 17 gm Documented by: Sodium Chloride (0.9% Saline Lock 10 Ml Syringe) 10 - 40 ml IV UD PRN PRN Reason: SALINE FLUSH Medical Necessity - Tobacco Use Smoking Status: Former smoker Tobacco Use: Cigarettes Assessment/Plan All Active Problems Debility (Acute) Shortness of breath (Acute) ELENITA (obstructive sleep apnea) (Acute) Morbid obesity with BMI of 50.0-59.9, adult (Acute) Iron deficiency anemia (Acute) Hyperkalemia (Acute) Bradycardia (Acute) Intractable low back pain (Acute) UTI (urinary tract infection) (Acute) Dehydration (Acute) Acute renal failure (Acute) Community acquired pneumonia (Acute) DEBBIE (acute kidney injury) (Acute) Breakthrough seizure (Acute) Acute respiratory failure with hypoxia (Acute) Thrombocytopenia (Acute) 74-year-old female with acute on chronic kidney disease, hyperkalemia request for an urgent dialysis catheter status post placement of temporary dialysis catheter 1. We will plan for a tunneled dialysis catheter will discuss with hospitalist on patient's discharge planning. The procedure of a tunneled dialysis catheter with the patient including risk including but not limited to bleeding, infection, malfunction. Patient was agreeable to proceed. Addendum: We will plan to place tunneled dialysis catheter on 10/05/2020 About 1-2 PM. We will have the temporary dialysis catheter removed on Monday. Paige Andrade M.D. Pager: [phone] [facility] [address] [place] [address], Outpatient [facility] [address] [place] [address] Office: [phone] Inpatient E&M: [id number] [facility] L[address]
[2020-10-01 08:15] LABS: Bedside Glucose 105 mg/dL (70-110)
[2020-10-01] MEDS: Insulin Lispro 100 UNIT/ML INSULN.PEN SC ×2 (09:31→16:55)
[2020-10-01] MEDS: 0.9% Saline Lock 10 ML Syringe IV (09:53)
--- NOTE | 2020-10-01 10:08 | CON.PCM_ITS ---
Problem List (1) Debility Status: Acute (2) Shortness of breath Status: Acute (3) CKD (chronic kidney disease) stage 4, GFR 15-29 ml/min Status: Chronic (4) Acute exacerbation of CHF (congestive heart failure) Status: Chronic (5) ELENITA (obstructive sleep apnea) Status: Acute (6) Morbid obesity with BMI of 50.0-59.9, adult Status: Acute (7) Iron deficiency anemia Status: Acute (8) Bradycardia Status: Acute (9) Sciatica Status: Chronic (10) UTI (urinary tract infection) Status: Acute (11) Dehydration Status: Acute (12) Acute renal failure Status: Acute (13) Breakthrough seizure Status: Acute (14) Acute respiratory failure with hypoxia Status: Acute (15) Seizure disorder Status: Chronic (16) Stroke Status: Chronic (17) Coronary artery disease Status: Chronic (18) Depression Status: Chronic Qualifiers: Depression Type: major depressive disorder Major depression recurrence: unspecified whether recurrent (19) Bipolar disorder Status: Chronic (20) Multiple personality disorder Status: Chronic (21) Restless legs syndrome Status: Chronic (22) Rheumatoid arthritis Status: Chronic (23) Generalized anxiety disorder Status: Chronic (24) COPD (chronic obstructive pulmonary disease) Status: Chronic (25) Peripheral neuropathy Status: Chronic (26) Personal history of Methicillin resistant Staphylococcus aureus infection Status: Chronic (27) Hypertension Status: Chronic (28) Diabetes type 2, uncontrolled Status: Chronic (29) Hyperlipidemia Status: Chronic (30) Cerebrovascular disease Status: Chronic Comment: Status post acute ischemic stroke No residual deficit History of Present Illness Date of Consult: 10/01/20 Reason for Consult: weakness, debility Requesting physician: [] Primary care physician: Dr. Bailey Toribio MD - History of Present Illness The patient is a 74 year old F with PMH as below, presented to the ED 09/29/2020 after having a seizure. She has been seen today for initial palliative care consultation regarding her frequent readmissions and overall weakness. Apparently [facility] ago and has been loyd ving some increased edema. She does have a history of diastolic CHF. EMS was called, she did have a another episode in the ambulance where she became unresponsive and bradycardic. Daughter reports she has not been consistent with her diet in light of her CHF and diabetes. Patient also has CKD with baseline creatinine around 3.4-3.5. Patient was admitted for further evaluation and management. She was put on a Lasix drip and a fluid restriction, nephrology was consulted. Patient is on antiseizure meds at baseline. She has not been taking her insulin on a consistent basis. She also has anxiety and depression which she is on trazodone and Lexapro. According to her medical record, patient has RA and COPD, which is not been currently treated. Beta-carson was discontinued secondary to bradycardia in the 40s. Lisinopril also discontinued due to worsening renal function. Initiation of hemodialysis has been discussed, however patient has declined in the past. Her daughter, Ilsa and patient's spouse do indicate they would like her to start dialysis. Her first hemodialysis treatment in the hospital was 09/30. Has a temporary port in the right neck. Patient has Pass[employer] and her keycase assembler is Amee. She lives at home with her in a single-story home with 3 steps and partial railing, which are very difficult for the patient to enter. She was independent with self-care at home. She does not drive but her her daughter takes her to appointments. DME in the home include raised toilet, lift chair, grab bars, hip kit, and Rollator. They are working on getting a ramp built. She does have a pediatric physical therapist but unsure of name. She wants to follow-up with [facility], however canceled secondary to not being able to get in and out of her home. Patient's daughter works here at the hospital and TCU and is attentive, very involved in her care. Patient Problems: Chronic Problems CKD (chronic kidney disease) stage 4, GFR 15-29 ml/min (Chronic) Sciatica (Chronic) Anemia (Chronic) Acute exacerbation of CHF (congestive heart failure) (Chronic) Seizure disorder (Chronic) Stroke (Chronic) Coronary artery disease (Chronic) Depression (Chronic) Bipolar disorder (Chronic) Multiple personality disorder (Chronic) Restless legs syndrome (Chronic) Rheumatoid arthritis (Chronic) Generalized anxiety disorder (Chronic) ELENITA on CPAP (Chronic) COPD (chronic obstructive pulmonary disease) (Chronic) Peripheral neuropathy (Chronic) Esophageal reflux (Chronic) Depressive disorder (Chronic) 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) Obesity (Chronic) Hypertension (Chronic) Diabetes type 2, uncontrolled (Chronic) Hyperlipidemia (Chronic) Cerebrovascular disease (Chronic) Status post acute ischemic stroke No residual deficit Surgical History: appendectomy, cataract, cholecystectomy, hysterectomy, tonsillectomy, - - Glaucoma, abdominal surgery for cyst. Psychiatric History: Anxiety, Bipolar, Depression, - - Multiple personality disorder. Home Medications: Ambulatory Orders Medication Instructions Recorded Isosorbide Mononitrate [Isosorbide 30 mg PO DAILY 04/10/15 Mononitrate ER] Insulin Lispro [Humalog KwikPen] 5 unit SUBCUT TIDCM 06/10/19 Insulin Glargine [Lantus SoloStar 16 units SUBCUT BID 06/29/19 Pen] traZODone [Desyrel] 25 mg PO QHS 06/29/19 Atorvastatin Calcium [Lipitor] 10 mg PO QHS 09/06/19 Ergocalciferol [Vitamin D] 50,000 unit PO KELLOGG 09/06/19 Gabapentin [Neurontin] 200 mg PO BID #0 09/06/19 Escitalopram Oxalate [Lexapro] 10 mg PO DAILY 05/05/20 Lisinopril [Prinivil] 10 mg PO DAILY 05/05/20 Torsemide [Demadex] 40 mg PO BID 05/05/20 Metoprolol Succinate [Toprol Xl] 75 mg PO DAILY 08/17/20 Amlodipine Besylate [Norvasc] 10 mg PO DAILY 09/29/20 Aspirin 81 mg PO DAILY 09/29/20 Furosemide [Lasix] 40 mg PO BID 09/29/20 Lacosamide [Vimpat] 100 mg PO DAILY 09/29/20 Allergies ciprofloxacin [From Cipro] Allergy (Verified 09/29/20 13:37) Rash codeine Allergy (Verified 09/29/20 13:37) Shortness of breath Penicillins Allergy (Verified 09/29/20 13:37) Hives CILLINS Allergy (Uncoded 09/29/20 13:37) Unknown Maternal History Items: Cancer, Diabetes, Heart Disease, Hypertension Paternal History Items: Cancer, Heart Disease - Social History Lives: With Family Smoking Status: Former smoker Tobacco Use: Cigarettes Alcohol: None Drugs: None Code Status: DNRCC-A Review of Systems Constitutional: Reports: Malaise, Weakness, Weight Change - 80+ pound wt gain in 8 months, Fatigue. Denies: Chills, Fever Eyes: Denies: Vision Change HEENT: Reports: Nasal Congestion, Sinus Congestion. Denies: Difficulty Swallowing, Head Aches, Sinus Drainage, Sore Throat Cardiovascular: Reports: Edema. Denies: Chest Pain, Light Headedness, Orthopnea, Palpitations Respiratory: Reports: Shortness of Breath, Shortness of breath at rest, Shortness of breath upon exertion, Wheezing. Denies: Cough, Hemoptysis, Sputum production Gastrointestinal: Reports: Constipation. Denies: Abdominal Pain, Nausea, Vomiting Genitourinary: Reports: - - makes little urine currently. Denies: Dysuria Musculoskeletal: Reports: Back Pain - LBP, Leg Pain. Denies: Joint Pain, Joint Tenderness Skin: Denies: Rash, Wounds Neurological: Reports: Tremor, Seizures. Denies: Change in Speech, Focal weakness, Numbness, Tingling Psychiatric: Denies: Anxiety, Depression, Homicidal Ideations, Suicidal Ideations Endocrine: Reports: Change in Body Habitus Hematologic/ Lymphatic: Reports: Anemia, Easy Bruising. Denies: Easy Bleeding Physical Exam Subjective: Lying in bed, lethargic but arousable and conversing. She remains confused. Daughter and at bedside assisting with questions. General: Alert, Cooperative, Confused HEENT: Atraumatic, Normocephalic Oral: Dry Mucosa Neck: Supple, Trachea Midline Lungs: No rhonchi, No rales, Diminished, Wheezes Cardiovascular: Regular rate, Regular Rhythm, Normal S1, Normal S2, No murmurs, - - Distant heart sounds secondary to body habitus Abdomen: Bowel Sounds Present, Soft, Non Tender, Obese Extremities: No cyanosis, Capillary Refill Less than 3 Seconds, Edema, Tenderne ss Skin: No rashes, No breakdown Musculoskeletal: Tenderness - legs Neurological: Cranial nerves II-XII grossly intact Psych/Mental Status: Appropriate, Flat Affect Objective: Vital Signs Temp Pulse Resp BP Pulse Ox 98.3 F 53 L 16 121/42 H 95 10/01/20 10:05 10/01/20 10:05 10/01/20 10:05 10/01/20 10:05 10/01/20 10:05 Oxygen Flow Rate (L/min) 2 Oxygen Delivery Method Room Air Weight: 119.6 kg Body Mass Index (BMI) 50.8 Finger Stick Blood Glucose 410 Intake and Output for Last 24 Hours 09/29/20 09/30/20 10/01/20 23:59 23:59 23:59 Intake Total 620 / 620 384.47 / 444.47 160 / 160 Output Total 350 / 350 250 / 425 425 / 425 Balance 270 / 270 134.47 / 19.47 -265 / -265 Laboratory Tests Past 24 Hrs 09/30/20 09/30/20 09/30/20 05:55 05:55 19:00 WBC RBC Hgb Hct MCV MCH MCHC RDW Std Deviation RDW Coeff of Kus[place] Plt Count MPV Immature Gran % (Auto) Neut % (Auto) Lymph % (Auto) [place] % (Auto) Eos % (Auto) Baso % (Auto) Absolute Neuts (auto) Absolute Lymphs (auto) Nucleated RBC % Sodium Potassium Chloride Carbon Dioxide Anion Gap BUN Creatinine Estim Creat Clear Calc Est GFR (MDRD) Af Amer Est GFR (MDRD) Non-Af BUN/Creatinine Ratio Glucose Calcium Phosphorus 5.4 H Iron TIBC Iron Saturation Ferritin Total Bilirubin AST ALT Alkaline Phosphatase Total Protein Albumin Globulin Albumin/Globulin Ratio TSH 0.90 Hep Bs Antigen Non-Reactive Hep Bs Antibody 09/30/20 10/01/20 10/01/20 19:00 05:08 05:08 WBC 4.7 RBC 2.98 L Hgb 9.2 L Hct 30.0 L MCV 100.7 H MCH 30.9 MCHC 30.7 L RDW Std Deviation 55.7 H RDW Coeff of K[place] 15.0 H Plt Count 64 L MPV 12.0 Immature Gran % (Auto) 0.400 Neut % (Auto) 63.2 Lymph % (Auto) 18.2 L [place] % (Auto) 14.2 H Eos % (Auto) 3.2 Baso % (Auto) 0.8 Absolute Neuts (auto) 3.0 Absolute Lymphs (auto) 0.86 Nucleated RBC % 0 Sodium 134 L Potassium 4.8 Chloride 101 Carbon Dioxide 25.0 Anion Gap 8 BUN 72 H Creatinine 3.07 H Estim Creat Clear Calc 11.55 Est GFR (MDRD) Af Amer 19 L Est GFR (MDRD) Non-Af 16 L BUN/Creatinine Ratio 23.5 H Glucose 115 H Calcium 7.8 L Phosphorus Iron 35 L TIBC 338 Iron Saturation 10.4 L Ferritin 141 Total Bilirubin 0.50 AST 22 ALT 23 Alkaline Phosphatase 75 Total Protein 5.6 L Albumin 2.1 L Globulin 3.5 Albumin/Globulin Ratio 0.6 L TSH Hep Bs Antigen Hep Bs Antibody Non-Reactive Assessment/Plan All Active Problems Debility (Acute) Shortness of breath (Acute) ELENITA (obstructive sleep apnea) (Acute) Morbid obesity with BMI of 50.0-59.9, adult (Acute) Iron deficiency anemia (Acute) Hyperkalemia (Acute) Bradycardia (Acute) Intractable low back pain (Acute) UTI (urinary tract infection) (Acute) Dehydration (Acute) Acute renal failure (Acute) Community acquired pneumonia (Acute) DEBBIE (acute kidney injury) (Acute) Breakthrough seizure (Acute) Acute respiratory failure with hypoxia (Acute) Thrombocytopenia (Acute) 74-year-old with history of progressive weakness over the last 8 months, known history of CKD, no doctors appointments since January, presented with acute kidney injury now on temporary dialysis, possibly long-term. 1. Weakness and debility: Multifactorial, does have chronic back pain. Weight gain has been significant, somewhat related to her fluid volume overload. Multiple poorly managed chronic health conditions secondary to her mobility and ability to follow-up with her specialists. She will likely require admission to a nursing facility for further rehab. We will follow-up as an outpatient 2. Shortness of breath: Again, multifactorial. Will treat underlying cause at this point and be cautious with addition of any opioids given her current confusion and lethargy, as well as untreated ELENITA. She did have a sleep study sc heduled but canceled it several months back. 3. Peripheral neuropathy/RLS: Also does not seem to be well controlled, she is on gabapentin 200 mg twice daily at home. Would caution with medication such as gabapentin and Lyrica given her renal and cardio dysfunction. 4. CKD stage IV with DEBBIE: Her rope maker is Dr. Christine Steward, but has had difficulty with follow-up secondary to her mobility. She has now requiring hemodialysis, today is day #2. Unclear if this will be temporary at this point. She does indicate she wants to proceed with dialysis, if needed. She will be undergoing tunneled catheter placement in the next 1 to 2 days. 5. Seizure disorder/CHF exacerbation/anemia/UTI/sciatica/low back pain/bipolar/multiple personality disorder/COPD/anxiety and depression/GERD/T2DM/HLD/history of CVA: Complicates overall care, management, recovery, and prognosis. Encouraged her to follow-up more closely with her specialists and PCP as there are telehealth visits available as well. Defer management to her care team. Discussed plan of care with patient, daughter Saray, spouse, and Dr. Steward. Thank you for the opportunity to participate in this patient's care, please do not hesitate to contact [facility] with any further questions or concerns. Palliative direct line is [phone]. Patient and family are agreeable to palliative care services. We will have RN follow up approximately 3 days after discharge to home and will proceed with palliative services at that time. Greater than 50% of F2F visit dedicated to education and counseling of palliative care services, medications, comorbid conditions and potential assistance with management, and plan of care moving forward. Start time: 942 End time: 1101
--- NOTE | 2020-10-01 10:56 | PCM.PN.REN ---
Patient Problems: Active and Suspected Problems Debility (Acute) Shortness of breath (Acute) ELENITA (obstructive sleep apnea) (Acute) Morbid obesity with BMI of 50.0-59.9, adult (Acute) Iron deficiency anemia (Acute) Bradycardia (Acute) UTI (urinary tract infection) (Acute) Dehydration (Acute) Acute renal failure (Acute) DEBBIE (acute kidney injury) (Acute) Breakthrough seizure (Acute) Acute respiratory failure with hypoxia (Acute) Thrombocytopenia (Acute) Subjective: pt dtr and spouse at bedside, son on phone. Pt more awake, responsive. Denies SOB, nausea, chest pain. Tolerated hemodialysis well last night. Will scheduled dialysis #2 today with fluid removal as tolerated. Pt in agreement to have tunneled catheter placed and chronic dialysis if needed. Will continue to monitor renal function and urine output to see if renal function recovers before placing permanent dialysis catheter. - Physical Exam Vitals/I&O's: Vital Signs Temp Pulse Resp BP Pulse Ox 98.3 F 53 L 16 121/42 H 95 10/01/20 10:05 10/01/20 10:05 10/01/20 10:05 10/01/20 10:05 10/01/20 10:05 Oxygen Flow Rate (L/min) 2 Oxygen Delivery Method Room Air Weight: 119.6 kg Body Mass Index (BMI) 50.8 Finger Stick Blood Glucose 410 Intake and Output for Last 24 Hours 09/29/20 09/30/20 10/01/20 23:59 23:59 23:59 Intake Total 620 / 620 384.47 / 444.47 160 / 160 Output Total 350 / 350 250 / 425 425 / 425 Balance 270 / 270 134.47 / 19.47 -265 / -265 General: Alert, Oriented x3, Cooperative, No apparent distress Neck: Supple Lungs: Clear to auscultation, Diminished Cardiovascular: Bradycardic Abdomen: Bowel Sounds Present, Soft, Non Tender, Non-Distended, Obese Extremities: Edema - improving Psych/Mental Status: Normal Affect, Appropriate, Alert and oriented to time, place, person, mood and affect Laboratory Results 09/30/20 05:55: TSH 0.90 09/30/20 05:55: Phosphorus 5.4 H 09/30/20 11:25: POC Glucose 134 H 09/30/20 17:08: POC Glucose 153 H 09/30/20 19:00: Hep Bs Antigen Non-Reactive 09/30/20 19:00: Hep Bs Antibody Non-Reactive 09/30/20 21:44: POC Glucose 140 H 10/01/20 05:08: WBC 4.7, RBC 2.98 L, Hgb 9.2 L, Hct 30.0 L, MCV 100.7 H, MCH 30.9, MCHC 30.7 L, RDW Std Deviation 55.7 H, RDW Coeff of Kusum 15.0 H, Plt Count 64 L, MPV 12.0, Immature Gran % (Auto) 0.400, Neut % (Auto) 63.2, Lymph % (Auto) 18.2 L, [place] % (Auto) 14.2 H, Eos % (Auto) 3.2, Baso % (Auto) 0.8, Absolute Neuts (auto) 3.0, Absolute Lymphs (auto) 0.86, Nucleated RBC % 0 10/01/20 05:08: Sodium 134 L, Potassium 4.8, Chloride 101, Carbon Dioxide 25.0, Anion Gap 8, BUN 72 H, Creatinine 3.07 H, Estim Creat Clear Calc 11.55, Est GFR (MDRD) Af Amer 19 L, Est GFR (MDRD) Non-Af 16 L, BUN/Creatinine Ratio 23.5 H, Glucose 115 H, Calcium 7.8 L, Iron 35 L, TIBC 338, Iron Saturation 10.4 L, Ferritin 141, Total Bilirubin 0.50, AST 22, ALT 23, Alkaline Phosphatase 75, Total Protein 5.6 L, Albumin 2.1 L, Globulin 3.5, Albumin/Globulin Ratio 0.6 L 10/01/20 08:12: POC Glucose 105 Clinical Impression(s) from Imaging Studies Echocardiogram 09/29/20 16:49 Interpretation Summary The study was technically difficult. Left ventricular systolic function is normal. The estimated ejection fraction is 55 %. Severely dilated right ventricle. Moderate global right ventricular systolic dysfunction. Mild (1+) eccentric mitral valve insufficiency. Poor coaptation of the tricuspid valve apparatus. Moderately severe (3+) tricuspid valve insufficiency. Calcified aortic root. Unable to estimate RV systolic pressure due to insufficient tricuspid regurgitant envelope. No evidence for diastolic dysfunction. Ordering Physician: Lazaro Lee Referring Physician: Bailey Toribio Performed By: Rosemary Sanchez RDCS Chest X-Ray 09/30/20 17:00 IMPRESSION: Basilar atelectasis/infiltrates bilaterally. Electronically Signed: Tao Simpson DO at 18:41 EDT Tel [phone], Service support , Current Medications Acetaminophen (Acetaminophen 325 Mg Tablet) 650 mg PO Q6H PRN PRN PRN Reason: Pain Score 1-10 Last Admin: 10/01/20 05:36 Dose: 650 mg Documented by: Aspirin (Aspirin 81 Mg Tab.Chew) 81 mg PO DAILYCM [facility] Last Admin: 09/30/20 09:30 Dose: 81 mg Documented by: Atorvastatin Calcium (Atorvastatin Calcium 10 Mg Tablet) 10 mg PO QHS [facility] Last Admin: 09/30/20 21:48 Dose: 10 mg Documented by: Dextrose (Dextrose 50%-Water 25 Gm/50 Ml Disp.Syrin) 0 gm IV X1 PRN; Protocol PRN Reason: Hypoglycemia Escitalopram Oxalate (Escitalopram Oxalate 10 Mg Tablet) 10 mg PO DAILY [facility] Last Admin: 09/30/20 09:30 Dose: 10 mg Documented by: Glucagon (Glucagon 1 Mg/Ml Syringe) 1 mg IM .X1 PRN PRN Reason: Hypoglycemia Heparin Sodium (Porcine) (Heparin Injection (Vial) 5,000 Unit/Ml Vial) 5,000 unit SC Q8 [facility] Last Admin: 10/01/20 05:37 Dose: 5,000 unit Documented by: Sodium Chloride () 250 mls @ 15 mls/hr IV .[id number] PRN PRN Reason: Saline Flush Last Infusion: 10/01/20 09:52 Dose: 0 mls/hr Documented by: Sodium Chloride () 250 mls @ 15 mls/hr IV .[id number] PRN PRN Reason: Additional IVPB Infusion Ferric Sodium Gluconate Complex 125 mg/ Sodium Chloride 110 mls @ 110 mls/hr IV X1 ONE Stop: 10/01/20 10:59 Last Admin: 10/01/20 09:52 Dose: 110 mls/hr Documented by: Insulin Glargine (Insulin Glargine 100 Units/Ml Pen) 10 units SC BREAKFAST [facility] Last Admin: 10/01/20 09:31 Dose: 10 unit Documented by: Insulin Glargine (Insulin Glargine 100 Units/Ml Pen) 10 units SC QHS [facility] Last Admin: 09/30/20 21:48 Dose: 10 u Documented by: Insulin Human Lispro (Insulin Lispro 100 Unit/Ml Insuln.Pen) 0 unit SC ACHS [facility]; Protocol Last Admin: 10/01/20 09:16 Dose: Not Given Documented by: Insulin Human Lispro (Insulin Lispro 100 Unit/Ml Insuln.Pen) 5 unit SC BREAKFAST [facility] Last Admin: 10/01/20 09:31 Dose: 5 unit Documented by: Insulin Human Lispro (Insulin Lispro 100 Unit/Ml Insuln.Pen) 5 unit SC DINNER [facility] Last Admin: 09/30/20 17:19 Dose: 5 u Documented by: Insulin Human Lispro (Insulin Lispro 100 Unit/Ml Insuln.Pen) 5 unit SC LUNCH [facility] Last Admin: 09/30/20 13:25 Dose: Not Given Documented by: Lacosamide (Lacosamide 100 Mg Tablet) 100 mg PO DAILY [facility] Last Admin: 09/30/20 09:38 Dose: 100 mg Documented by: Nystatin (Nystatin Powder 15gm Bottle) 1 applic TOPICAL TID [facility]; Protocol Last Admin: 10/01/20 05:37 Dose: 1 applic Documented by: Polyethylene Glycol (Polyethylene Glycol 3350 17 Gm Packet) 17 gm PO BID [facility] Last Admin: 09/30/20 21:49 Dose: 17 gm Documented by: Sodium Chloride (0.9% Saline Lock 10 Ml Syringe) 10 - 40 ml IV UD PRN PRN Reason: SALINE FLUSH Last Admin: 10/01/20 09:53 Dose: 10 ml Documented by: Medical Necessity - Tobacco Use Smoking Status: Former smoker Tobacco Use: Cigarettes Assessment/Plan All Active Problems Debility (Acute) Shortness of breath (Acute) ELENITA (obstructive sleep apnea) (Acute) Morbid obesity with BMI of 50.0-59.9, adult (Acute) Iron deficiency anemia (Acute) Hyperkalemia (Acute) Bradycardia (Acute) Intractable low back pain (Acute) UTI (urinary tract infection) (Acute) Dehydration (Acute) Acute renal failure (Acute) Community acquired pneumonia (Acute) DEBBIE (acute kidney injury) (Acute) Breakthrough seizure (Acute) Acute respiratory failure with hypoxia (Acute) Thrombocytopenia (Acute) 1. Acute on CKD Stage 3. Baseline creatinine 1.5 eGFR 40cc/min in December 2019 likely due to diabetes with DEBBIE event in January due to dehydration with creatinine 3.6 improved to 2.29. Creatinine 3.44 in May 2020, 2.44 on 08/17/20 now at 3.9 BUN 98 on admit. HD yesterday, dialysis #2 today with temp catheter. Pt in agreement for tunneled catheter if needs to continue with dialysis 3x/wk. Pt more awake, responsive today. Will monitor urine output and labs daily to watch for renal recovery, if not, then consider tunneled catheter placement on Monday. 2. Hyperkalemia corrected with dialysis. Off lisinopril 3. Bradycardia off BBlocker 4. Diastolic HF with mild leg edema. Oxygenation stable. Urine output remains oliguric. 5. Iron def anemia iv iron with dialysis, first dose today 6. Seizure activity on vimpat EEG pending 7. Encephalopathy improved today. Possible post ictal. 8. DM type 2 with nephropathy 9. Debility PT/rehab eval. LÁZARO family at bedside, hospitalist, [facility]
--- NOTE | 2020-10-01 11:07 | PN_ITS ---
Patient Problems: Active and Suspected Problems Debility (Acute) Shortness of breath (Acute) ELENITA (obstructive sleep apnea) (Acute) Morbid obesity with BMI of 50.0-59.9, adult (Acute) Iron deficiency anemia (Acute) Bradycardia (Acute) UTI (urinary tract infection) (Acute) Dehydration (Acute) Acute renal failure (Acute) DEBBIE (acute kidney injury) (Acute) Breakthrough seizure (Acute) Acute respiratory failure with hypoxia (Acute) Thrombocytopenia (Acute) Subjective: Much more alert today after dialysis yesterday. Was run even but potassium was come down and so is her BUN Vitals/I&O's: Vital Signs Temp Pulse Resp BP Pulse Ox 98.3 F 53 L 16 121/42 H 95 10/01/20 10:05 10/01/20 10:05 10/01/20 10:05 10/01/20 10:05 10/01/20 10:05 Oxygen Flow Rate (L/min) 2 Oxygen Delivery Method Room Air Weight: 263 lb 10.766 oz Body Mass Index (BMI) 50.8 Finger Stick Blood Glucose 410 Intake and Output for Last 24 Hours 09/29/20 09/30/20 10/01/20 23:59 23:59 23:59 Intake Total 620 / 620 384.47 / 444.47 160 / 160 Output Total 350 / 350 250 / 425 425 / 425 Balance 270 / 270 134.47 / 19.47 -265 / -265 General: Alert, oriented x3, no acute distress, cooperative HEENT: Atraumatic, PERRLA, EOMI, Normocephalic, - - Ecchymosis on her right neck secondary to EMS Oral: Dry Mucosa Neck: Supple, No JVD Lungs: Normal air movement, No rhonchi, No wheeze, No rales, Diminished Cardiovascular: Bradycardia, Regular Rhythm, Normal S1, Normal S2, No murmurs Abdomen: Soft, Non Tender, Non-Distended, No Hepato-splenomegaly Extremities: Capillary Refill Less than 3 Seconds, Edema - Anasarca with dependent edema in all extremities Skin: No rashes, No breakdown Neurological: Neuro grossly intact, Sensory exam intact to light touch and pain Psych/Mental Status: Normal affect, appropriate Laboratory Results 09/30/20 05:55: TSH 0.90 09/30/20 05:55: Phosphorus 5.4 H 09/30/20 11:25: POC Glucose 134 H 09/30/20 17:08: POC Glucose 153 H 09/30/20 19:00: Hep Bs Antigen Non-Reactive 09/30/20 19:00: Hep Bs Antibody Non-Reactive 09/30/20 21:44: POC Glucose 140 H 10/01/20 05:08: WBC 4.7, RBC 2.98 L, Hgb 9.2 L, Hct 30.0 L, MCV 100.7 H, MCH 30.9, MCHC 30.7 L, RDW Std Deviation 55.7 H, RDW Coeff of Kusum 15.0 H, Plt Count 64 L, MPV 12.0, Immature Gran % (Auto) 0.400, Neut % (Auto) 63.2, Lymph % (Auto) 18.2 L, Kerr % (Auto) 14.2 H, Eos % (Auto) 3.2, Baso % (Auto) 0.8, Absolute Neuts (auto) 3.0, Absolute Lymphs (auto) 0.86, Nucleated RBC % 0 10/01/20 05:08: Sodium 134 L, Potassium 4.8, Chloride 101, Carbon Dioxide 25.0, Anion Gap 8, BUN 72 H, Creatinine 3.07 H, Estim Creat Clear Calc 11.55, Est GFR (MDRD) Af Amer 19 L, Est GFR (MDRD) Non-Af 16 L, BUN/Creatinine Ratio 23.5 H, Glucose 115 H, Calcium 7.8 L, Iron 35 L, TIBC 338, Iron Saturation 10.4 L, Ferritin 141, Total Bilirubin 0.50, AST 22, ALT 23, Alkaline Phosphatase 75, Total Protein 5.6 L, Albumin 2.1 L, Globulin 3.5, Albumin/Globulin Ratio 0.6 L 10/01/20 08:12: POC Glucose 105 Current Medications Acetaminophen (Acetaminophen 325 Mg Tablet) 650 mg PO Q6H PRN PRN PRN Reason: Pain Score 1-10 Last Admin: 10/01/20 05:36 Dose: 650 mg Documented by: Aspirin (Aspirin 81 Mg Tab.Chew) [address] [facility] Last Admin: 09/30/20 09:30 Dose: 81 mg Documented by: Atorvastatin Calcium (Atorvastatin Calcium 10 Mg Tablet) 10 mg PO QHS [facility] Last Admin: 09/30/20 21:48 Dose: 10 mg Documented by: Dextrose (Dextrose 50%-Water 25 Gm/50 Ml Disp.Syrin) 0 gm IV X1 PRN; Protocol PRN Reason: Hypoglycemia Escitalopram Oxalate (Escitalopram Oxalate 10 Mg Tablet) 10 mg PO DAILY [facility] Last Admin: 09/30/20 09:30 Dose: 10 mg Documented by: Glucagon (Glucagon 1 Mg/Ml Syringe) 1 mg IM .X1 PRN PRN Reason: Hypoglycemia Heparin Sodium (Porcine) (Heparin Injection (Vial) 5,000 Unit/Ml Vial) 5,000 unit SC Q8 [facility] Last Admin: 10/01/20 05:37 Dose: 5,000 unit Documented by: Sodium Chloride () 250 mls @ 15 mls/hr IV .[id number] PRN PRN Reason: Saline Flush Last Infusion: 10/01/20 09:52 Dose: 0 mls/hr Documented by: Sodium Chloride () 250 mls @ 15 mls/hr IV .[id number] PRN PRN Reason: Additional IVPB Infusion Insulin Glargine (Insulin Glargine 100 Units/Ml Pen) 10 units SC BREAKFAST [facility] Last Admin: 10/01/20 09:31 Dose: 10 unit Documented by: Insulin Glargine (Insulin Glargine 100 Units/Ml Pen) 10 units SC QHS [facility] Last Admin: 09/30/20 21:48 Dose: 10 u Documented by: Insulin Human Lispro (Insulin Lispro 100 Unit/Ml Insuln.Pen) 0 unit SC ACHS [facility]; Protocol Last Admin: 10/01/20 09:16 Dose: Not Given Documented by: Insulin Human Lispro (Insulin Lispro 100 Unit/Ml Insuln.Pen) 5 unit SC BREAKFAST [facility] Last Admin: 10/01/20 09:31 Dose: 5 unit Documented by: Insulin Human Lispro (Insulin Lispro 100 Unit/Ml Insuln.Pen) 5 unit SC DINNER [facility] Last Admin: 09/30/20 17:19 Dose: 5 u Documented by: Insulin Human Lispro (Insulin Lispro 100 Unit/Ml Insuln.Pen) 5 unit SC LUNCH [facility] Last Admin: 09/30/20 13:25 Dose: Not Given Documented by: Lacosamide (Lacosamide 100 Mg Tablet) 100 mg PO DAILY [facility] Last Admin: 09/30/20 09:38 Dose: 100 mg Documented by: Nystatin (Nystatin Powder 15gm Bottle) 1 applic TOPICAL TID [facility]; Protocol Last Admin: 10/01/20 05:37 Dose: 1 applic Documented by: Polyethylene Glycol (Polyethylene Glycol 3350 17 Gm Packet) 17 gm PO BID [facility] Last Admin: 09/30/20 21:49 Dose: 17 gm Documented by: Sodium Chloride (0.9% Saline Lock 10 Ml Syringe) 10 - 40 ml IV UD PRN PRN Reason: SALINE FLUSH Last Admin: 10/01/20 09:53 Dose: 10 ml Documented by: STROKE Vital Signs/Narrative: Vital Signs Temp Pulse Resp BP Pulse Ox 10/01/20 10:05 98.3 F 53 L 16 121/42 H 95 10/01/20 07:22 99 Medical Necessity - Tobacco Use Smoking Status: Former smoker Tobacco Use: Cigarettes Assessment/Plan All Active Problems Debility (Acute) Shortness of breath (Acute) ELENITA (obstructive sleep apnea) (Acute) Morbid obesity with BMI of 50.0-59.9, adult (Acute) Iron deficiency anemia (Acute) Hyperkalemia (Acute) Bradycardia (Acute) Intractable low back pain (Acute) UTI (urinary tract infection) (Acute) Dehydration (Acute) Acute renal failure (Acute) Community acquired pneumonia (Acute) DEBBIE (acute kidney injury) (Acute) Breakthrough seizure (Acute) Acute respiratory failure with hypoxia (Acute) Thrombocytopenia (Acute) 1. Acute hypoxic respiratory failure secondary to acute on chronic diastolic CHF/HTN/HLD/bradycardia -Echo with EF of 55% and severely dilated right ventricle, consistent with cor pulmonale. She likely has a component of ELENITA and will need to follow-up with pulmonology as an outpatient for sleep study -Temporary dialysis line was placed yesterday and she underwent dialysis and was run even, will plan for dialysis again today -Given her bradycardia will not reinitiate her metoprolol, her heart rate is improving with dialysis. Given her rising creatinine we will hold her lisinopril, given her borderline blood pressures will hold her isosorbide -We will hold her Norvasc as this can lead to swelling -Continue with statin 2. Post ictal status post seizure -EEG with no seizure-like activity just encephalopathy likely secondary to uremia -We will continue with her Vimpat, and may need to get a neurology consult after the EEG is read, however it could have been secondary to her hypoglycemia -If necessary can add Keppra 3. IDDM 2/morbid obesity/CKD 4 with uremia and mild metabolic encephalopathy which has resolved -Does not appear that has been following a diet and did not take her insulin today -Blood sugars elevated to 406 -We will place her on her long-acting insulin at 10 units twice daily as well as sliding scale insulin and mealtime insulin. Also put her on an appropriate diet with appropriate calories -Accu-Cheks AC at bedtime -Discussed lifestyle modifications -She has had a significant increase in her creatinine over the last 9 months, temporary dialysis line is in and she is undergoing dialysis. Uremia is resolving as is her confusion 4. Anxiety/depression -Stable -We will hold off on her trazodone and Lexapro secondary to her disorientation and somnolence Her care is complicated by diagnoses that she does not take medications for including rheumatoid arthritis and COPD Disposition: She would need to be reevaluated by physical therapy however it does appear likely if she will need skilled placement. DVT: Heparin Inpatient E&M: 41889 Subs Hosp L2
[2020-10-01 11:10] LABS: Bedside Glucose 151 mg/dL (70-110)
--- NOTE | 2020-10-01 13:47 | CASEMGMT ---
SW went to patient's room to talk with patient about d/c plan. Patient was sleeping so SW spoke with her significant other. SW let him know that TCU us not an option since she is on dialysis. He was surprised that patient's daughter did not know this since she works there. SW told him SW can call her and let her know. He was not sure where patient would want to go. SW left a list of SNF providers including quality and resource use data and consistent with the patient?s preferred geographic region, medical needs, and insurance network. SW told him SW will follow up after while. SW called patient's daughter, but she was not available and there was no option to leave a message. Plan: Likely SNF, but waiting on patient and family to decide where. Katelynn ANDRADE
--- NOTE | 2020-10-01 13:54 | CASEMGMT ---
This RN CM to room to discuss dialysis center with pt/ and pt is currently getting dialysis. Pt/ provided verbal list of local in-network dialysis centers, voice understanding. Pt is falling back to sleep easily when not stimulated, but does state no preference on dialysis center and then picked [facility]. Referral placed via portal and faxed to [facility] admissions and [facility]. Pt/ are still unsure of SNF placement/facility at this time but pt does state she will not go to [facility]. Cisco grissom, voices understanding. SStaten ERICA TREVIÑO
[2020-10-01] MEDS: Escitalopram Oxalate 10 MG Tablet PO (15:37)
[2020-10-01] MEDS: Aspirin 81 MG TAB.CHEW PO (15:37)
[2020-10-01 15:46] LABS: Bedside Glucose 141 mg/dL (70-110)
[2020-10-01] MEDS: Lacosamide 100 MG Tablet PO (15:48)
--- NOTE | 2020-10-01 16:05 | DIALYSIS ---
hd x 3 hours on 3k bath uf-1000ml tolerated well vitals stable rij with good flows - no meds given-report to Lesly MALDONADO
[2020-10-01 17:01] LABS: Bedside Glucose 144 mg/dL (70-110)
[2020-10-01] MEDS: Atorvastatin Calcium 10 MG Tablet PO (22:06)
[2020-10-01 22:10] LABS: Bedside Glucose 131 mg/dL (70-110)
[2020-10-01] MEDS: Polyethylene Glycol 3350 17 GM PACKET PO (22:15)
[2020-10-02] VITALS (9 sets, daily range): BP systolic 149–173; BP diastolic 56–67; PULSE 60–71; RESP 18–20; TEMP 36.4–36.6; O2SAT 95–98
[2020-10-02] MEDS: Heparin Injection (Vial) 5,000 UNIT/ML VIAL 5000 UNIT SC (05:44)
[2020-10-02] MEDS: Nystatin Powder 15gm Bottle 1 APPLIC TOPICAL ×3 (05:44→21:23)
[2020-10-02] MEDS: Acetaminophen 325 MG Tablet 650 MG PO ×3 (05:48→22:43)
[2020-10-02 06:41] LABS: Albumin, Serum 2.2 g/dL (3.2-5.0); BUN 48 mg/dL (7-18); BUN/Creat Ratio 20.9 RATIO (10-20); Calcium,Total 8.3 mg/dL (8.5-10.1); Chloride 103 mmol/L (98-107); EST Glomerular Filtration Rate 22 mL/min (>60); Est Glom Filt Rate - Afr Amer 27 mL/min (>60); Estimated Creatinine Clearance 15.41 ml/min; Glucose 89 mg/dL (74-106); Phosphorus 3.4 mg/dL (2.5-4.9); Potassium 4.3 mmol/L (3.5-5.1); Sodium Level 136 mmol/L (136-145)
[2020-10-02 08:29] LABS: PTHIN 101.3 pg/mL (18.4-80.1)
--- NOTE | 2020-10-02 08:43 | PCM.PN.BLA ---
Progress Note Urine output improved. Creatinine better today from dialysis yesterday. Vitals stable. Hold on dialysis today. Continue to monitor labs, urine output to determine further need for dialysis. STROKE Vital Signs/Narrative: Vital Signs Pulse Pulse Ox 10/02/20 07:24 96 10/02/20 06:59 62
--- NOTE | 2020-10-02 08:45 | CASEMGMT ---
When this RN CM got to floor today, there was a dialysis schedule letter waiting on desk with a chair time of TTS 1100 for pt. Dialysis orders and treatment notes faxed to [facility]. [facility] updated on chair time as pt plan was to go to SNF. CM to follow. SStaten ERICA TREVIÑO
[2020-10-02 09:21] LABS: Bedside Glucose 82 mg/dL (70-110)
--- NOTE | 2020-10-02 09:31 | CASEMGMT ---
Addendum entered by Louisa Rinaldi 10/02/20 10:23: Social Work Return call from [place] and they have beds available and will check on transportation. Referral faxed. Will await determination. AREN Hull Original Note: Social Work SW met with pt in the room to discuss discharge plan. Pt stating her preferred provider is [facility]. VM left with Edwige at [facility] to inquire about bed availability and transport to dialysis. AREN Hull
--- NOTE | 2020-10-02 09:51 | PN_ITS ---
Patient Problems: Active and Suspected Problems Debility (Acute) Shortness of breath (Acute) ELENITA (obstructive sleep apnea) (Acute) Morbid obesity with BMI of 50.0-59.9, adult (Acute) Iron deficiency anemia (Acute) Bradycardia (Acute) UTI (urinary tract infection) (Acute) Dehydration (Acute) Acute renal failure (Acute) DEBBIE (acute kidney injury) (Acute) Breakthrough seizure (Acute) Acute respiratory failure with hypoxia (Acute) Thrombocytopenia (Acute) Subjective: She had improved urine output yesterday with 875 cc. She does feel a bit better Vitals/I&O's: Vital Signs Temp Pulse Resp BP Pulse Ox 97.8 F 62 18 149/59 H 96 10/02/20 04:00 10/02/20 06:59 10/02/20 04:00 10/02/20 04:00 10/02/20 07:24 Oxygen Flow Rate (L/min) 2 Oxygen Delivery Method Nasal Cannula Weight: 259 lb 7.745 oz Body Mass Index (BMI) 50.8 Finger Stick Blood Glucose 410 Intake and Output for Last 24 Hours 09/30/20 10/01/20 10/02/20 23:59 23:59 23:59 Intake Total 384.47 / 444.47 712.75 / 952.75 360 / 360 Output Total 250 / 425 1875 / 2050 425 / 425 Balance 134.47 / 19.47 -1162.25 / -1097.25 -65 / -65 General: Alert, oriented x3, no acute distress, cooperative HEENT: Atraumatic, PERRLA, EOMI, Normocephalic, - - Ecchymosis on her right neck secondary to EMS Oral: Dry Mucosa Neck: Supple, No JVD Lungs: Normal air movement, No rhonchi, No wheeze, No rales, Diminished Cardiovascular: Bradycardia, Regular Rhythm, Normal S1, Normal S2, No murmurs Abdomen: Soft, Non Tender, Non-Distended, No Hepato-splenomegaly Extremities: Capillary Refill Less than 3 Seconds, Edema - Anasarca with dependent edema in all extremities Skin: No rashes, No breakdown Neurological: Neuro grossly intact, Sensory exam intact to light touch and pain Psych/Mental Status: Normal affect, appropriate Laboratory Results 10/01/20 11:07: POC Glucose 151 H 10/01/20 15:33: POC Glucose 141 H 10/01/20 16:54: POC Glucose 144 H 10/01/20 22:05: POC Glucose 131 H 10/02/20 05:05: Sodium 136, Potassium 4.3, Chloride 103, Carbon Dioxide 29.0, BUN 48 H, Creatinine 2.30 H, Estim Creat Clear Calc 15.41, Est GFR (MDRD) Af Amer 27 L, Est GFR (MDRD) Non-Af 22 L, BUN/Creatinine Ratio 20.9 H, Glucose 89, Calcium 8.3 L, Phosphorus 3.4, Albumin 2.2 L 10/02/20 05:05: PTH Intact 101.3 H 10/02/20 07:47: POC Glucose 82 Current Medications Acetaminophen (Acetaminophen 325 Mg Tablet) 650 mg PO Q6H PRN PRN PRN Reason: Pain Score 1-10 Last Admin: 10/02/20 05:48 Dose: 650 mg Documented by: Aspirin (Aspirin 81 Mg Tab.Chew) 81 mg PO DAILYCM [facility] Last Admin: 10/01/20 15:37 Dose: 81 mg Documented by: Atorvastatin Calcium (Atorvastatin Calcium 10 Mg Tablet) 10 mg PO QHS [facility] Last Admin: 10/01/20 22:06 Dose: 10 mg Documented by: Dextrose (Dextrose 50%-Water 25 Gm/50 Ml Disp.Syrin) 0 gm IV X1 PRN; Protocol PRN Reason: Hypoglycemia Escitalopram Oxalate (Escitalopram Oxalate 10 Mg Tablet) 10 mg PO DAILY [facility] Last Admin: 10/01/20 15:37 Dose: 10 mg Documented by: Ferrous Sulfate (Ferrous Sulfate 325 Mg Tablet) 325 mg PO 1200,1700 [facility] Glucagon (Glucagon 1 Mg/Ml Syringe) 1 mg IM .X1 PRN PRN Reason: Hypoglycemia Heparin Sodium (Porcine) (Heparin Injection (Vial) 5,000 Unit/Ml Vial) 5,000 unit SC Q8 [facility] Last Admin: 10/02/20 05:44 Dose: 5,000 unit Documented by: Sodium Chloride () 250 mls @ 15 mls/hr IV .[id number] PRN PRN Reason: Saline Flush Last Infusion: 10/02/20 07:36 Dose: Infused Documented by: Sodium Chloride () 250 mls @ 15 mls/hr IV .[id number] PRN PRN Reason: Additional IVPB Infusion Insulin Glargine (Insulin Glargine 100 Units/Ml Pen) 10 units SC BREAKFAST [facility] Last Admin: 10/01/20 09:31 Dose: 10 unit Documented by: Insulin Glargine (Insulin Glargine 100 Units/Ml Pen) 10 units SC QHS [facility] Last Admin: 10/01/20 22:07 Dose: 10 u Documented by: Insulin Human Lispro (Insulin Lispro 100 Unit/Ml Insuln.Pen) 0 unit SC ACHS [facility]; Protocol Last Admin: 10/02/20 08:42 Dose: Not Given Documented by: Insulin Human Lispro (Insulin Lispro 100 Unit/Ml Insuln.Pen) 5 unit SC BREAKFAST [facility] Last Admin: 10/02/20 08:42 Dose: Not Given Documented by: Insulin Human Lispro (Insulin Lispro 100 Unit/Ml Insuln.Pen) 5 unit SC DINNER [facility] Last Admin: 10/01/20 16:55 Dose: 5 u Documented by: Insulin Human Lispro (Insulin Lispro 100 Unit/Ml Insuln.Pen) 5 unit SC LUNCH [facility] Last Admin: 10/01/20 12:10 Dose: Not Given Documented by: Lacosamide (Lacosamide 100 Mg Tablet) 100 mg PO DAILY [facility] Last Admin: 10/01/20 15:48 Dose: 100 mg Documented by: Nystatin (Nystatin Powder 15gm Bottle) 1 applic TOPICAL TID [facility]; Protocol Last Admin: 10/02/20 05:44 Dose: 1 applic Documented by: Polyethylene Glycol (Polyethylene Glycol 3350 17 Gm Packet) 17 gm PO BID [facility] Last Admin: 10/01/20 22:15 Dose: 17 gm Documented by: Sodium Chloride (0.9% Saline Lock 10 Ml Syringe) 10 - 40 ml IV UD PRN PRN Reason: SALINE FLUSH Last Admin: 10/01/20 09:53 Dose: 10 ml Documented by: STROKE Vital Signs/Narrative: Vital Signs Pulse Pulse Ox 10/02/20 07:24 96 10/02/20 06:59 62 Medical Necessity - Tobacco Use Smoking Status: Former smoker Tobacco Use: Cigarettes Assessment/Plan All Active Problems Debility (Acute) Shortness of breath (Acute) ELENITA (obstructive sleep apnea) (Acute) Morbid obesity with BMI of 50.0-59.9, adult (Acute) Iron deficiency anemia (Acute) Hyperkalemia (Acute) Bradycardia (Acute) Intractable low back pain (Acute) UTI (urinary tract infection) (Acute) Dehydration (Acute) Acute renal failure (Acute) Community acquired pneumonia (Acute) DEBBIE (acute kidney injury) (Acute) Breakthrough seizure (Acute) Acute respiratory failure with hypoxia (Acute) Thrombocytopenia (Acute) 1. Acute hypoxic respiratory failure secondary to acute on chronic diastolic CHF/HTN/HLD/bradycardia -Echo with EF of 55% and severely dilated right ventricle, consistent with cor pulmonale. She likely has a component of ELENITA and will need to follow-up with pulmonology as an outpatient for sleep study -Temporary dialysis line was placed yesterday and she underwent dialysis and was run even, will plan for dialysis again today -Given her bradycardia will not reinitiate her metoprolol, her heart rate is improving with dialysis. Given her rising creatinine we will hold her lisinopril, given her borderline blood pressures will hold her isosorbide -We will hold her Norvasc as this can lead to swelling -Continue with statin 2. Post ictal status post seizure -EEG with no seizure-like activity just encephalopathy likely secondary to uremia -We will continue with her Vimpat, and may need to get a neurology consult after the EEG is read, however it could have been secondary to her hypoglycemia 3. IDDM 2/morbid obesity/CKD 4 with uremia and mild metabolic encephalopathy which has resolved -Does not appear that has been following a diet and did not take her insulin today -Blood sugars elevated to 406 -We will place her on her long-acting insulin at 5 units twice daily as well as sliding scale insulin and mealtime insulin. Also put her on an appropriate diet with appropriate calories -Accu-Cheks AC at bedtime -Discussed lifestyle modifications -She has had a significant increase in her creatinine over the last 9 months, temporary dialysis line is in and she is undergoing dialysis. Uremia is resolving as is her confusion 4. Anxiety/depression -Stable -We will hold off on her trazodone and Lexapro secondary to her disorientation and somnolence 5. Iron deficiency anemia -Hemoglobin is around 9.3, her iron is 35 with a total iron binding capacity of 338 iron saturation of 10.4 normal ferritin -Continue with iron replacement DVT: Heparin Inpatient E&M: 63069 Subs Hosp L2
--- NOTE | 2020-10-02 09:54 | DIALYSIS ---
No dialysis today, will check on again tomorrow
[2020-10-02] MEDS: Aspirin 81 MG TAB.CHEW PO (10:01)
[2020-10-02] MEDS: Lacosamide 100 MG Tablet PO (10:01)
[2020-10-02] MEDS: Escitalopram Oxalate 10 MG Tablet PO (10:01)
[2020-10-02 10:11] LABS: Bedside Glucose 121 mg/dL (70-110)
[2020-10-02 11:10] LABS: Bedside Glucose 164 mg/dL (70-110)
[2020-10-02] MEDS: Insulin Lispro 100 UNIT/ML INSULN.PEN SC ×3 (11:48→21:23)
[2020-10-02] MEDS: Ferrous Sulfate 325 MG Tablet PO (12:06)
--- NOTE | 2020-10-02 12:10 | CASEMGMT ---
Addendum entered by Monet Clemente 10/02/20 14:54: Per [facility], can transport pt on saturdays and they are ok with TTS 1100. Call back to Nazia at [facility] to update, voices understanding. Marci MALDONADO CM Addendum entered by Monet Clemente 10/02/20 14:46: Message left with [facility] regarding pt here thru w/e and possible tunnel cath on 10/05/20. Contact info for [facility] admissions is ext. [phone]. Marci MALDONADO CM Addendum entered by oMnet Clemente 10/02/20 12:25: Call to [facility] to notify that pt will not get tunnel cath until at least 10/05/20 and will not discharge until after monday but she is on another call and will call this RN CM back. Marci MALDONADO CM Original Note: Pt chose [facility] but they state they cannot transport pt on saturdays and family would have to. Call to Nazia at [facility] and she states the only available MWF time is 1600 and [facility] VALENCIA aware, voices understanding. Pt is not scheduled to get tunnel cath until 10/05/[address] Steward wants to see how her kidney function does over the weekend. CM to follow. Marci MALDONADO CM
--- NOTE | 2020-10-02 15:51 | CASEMGMT ---
Social Work Return call from [place] and they will not be able to accept pt. SW met with pt and to get second choice of facility. Pt sleeping and multiple attempts to awake pt but unable. Pt spouse does not feel comfortable making decision of facility for patient. SW reviewed SNF lists with and requested he speak with pt when awake and come up with three choice facilities for referrals to be made. agreeable. SW to continue to follow. AREN Hull
--- NOTE | 2020-10-02 16:59 | NURSING ---
Pt refused medications at this time stating 'just leave me alone so I can sleep'.
[2020-10-02 17:30] LABS: Bedside Glucose 170 mg/dL (70-110)
[2020-10-02] MEDS: Atorvastatin Calcium 10 MG Tablet PO (21:23)
[2020-10-02 21:36] LABS: Bedside Glucose 180 mg/dL (70-110)
[2020-10-03] VITALS (12 sets, daily range): BP systolic 146–174; BP diastolic 58–69; PULSE 61–72; RESP 18; TEMP 36.2–36.7; O2SAT 93–99
[2020-10-03] MEDS: amLODIPine 10 MG Tablet PO (05:01)
[2020-10-03] MEDS: Metoprolol(XL)Succ 25 MG Tablet 75 MG PO (05:01)
[2020-10-03] MEDS: Nystatin Powder 15gm Bottle 1 APPLIC TOPICAL ×3 (05:04→21:01)
[2020-10-03 05:55] LABS: Absolute Lymphocyte Count 0.82 X10^3/uL (0.83-4.51); Absolute Neutrophil Count 4.7 X10^3/uL (2.0-7.7); Basophil# 0.03 X10^3/uL; Basophil% 0.5 % (0-1); Eosinophil# 0.12 X10^3/uL; Eosinophils% 1.8 % (0-5); Hemoglobin 10.1 g/dL (12.0-15.0); Lymphocyte # 0.82 X10^3/ul (4.0); Lymphocyte % 12.5 % (19-41); Mean Corp Hgb Conc 30.6 g/dL (32-36); Mean Corpuscular Hgb 30.6 pg (27.0-32.0); Mean Platelet Vol. 10.9 fl (6.2-12.0); Monocyte# 0.85 X10^3/uL; NRBC Flagged by Analyzer 0 % (0-5); Neutrophil # 4.69 X10^3/uL (2.7-7.7); Neutrophil % 71.7 % (47-70); POSITIVE COUNT YES; Platelet Count 62 K/mm3 (150-450); RBC Distribution Width CV 15.3 % (11.6-14.6); RBC Distribution Width SD 55.8 fl (35.1-43.9); White Blood Count 6.5 K/mm3 (4.4-11.0)
[2020-10-03 06:28] LABS: Albumin, Serum 2.4 g/dL (3.2-5.0); BUN 49 mg/dL (7-18); BUN/Creat Ratio 21.9 RATIO (10-20); Calcium,Total 8.6 mg/dL (8.5-10.1); Chloride 100 mmol/L (98-107); Creatinine, Serum 2.24 mg/dL (0.55-1.02); EST Glomerular Filtration Rate 23 mL/min (>60); Est Glom Filt Rate - Afr Amer 27 mL/min (>60); Estimated Creatinine Clearance 15.83 ml/min; Glucose 158 mg/dL (74-106); Phosphorus 3.6 mg/dL (2.5-4.9); Potassium 4.6 mmol/L (3.5-5.1); Sodium Level 134 mmol/L (136-145)
[2020-10-03] MEDS: Acetaminophen 325 MG Tablet 650 MG PO (06:57)
[2020-10-03] MEDS: Insulin Lispro 100 UNIT/ML INSULN.PEN SC ×5 (08:20→16:51)
[2020-10-03] MEDS: Aspirin 81 MG TAB.CHEW PO (08:23)
--- NOTE | 2020-10-03 08:39 | PCM.PN.SRG ---
Patient Problems: Active and Suspected Problems Debility (Acute) Shortness of breath (Acute) ELENITA (obstructive sleep apnea) (Acute) Morbid obesity with BMI of 50.0-59.9, adult (Acute) Iron deficiency anemia (Acute) Bradycardia (Acute) UTI (urinary tract infection) (Acute) Dehydration (Acute) Acute renal failure (Acute) DEBBIE (acute kidney injury) (Acute) Breakthrough seizure (Acute) Acute respiratory failure with hypoxia (Acute) Thrombocytopenia (Acute) Subjective: Patient has only needed dialysis on Monday. We will plan to put a tunneled dialysis catheter in on Monday if it is felt patient would still need it. We will plan to remove dialysis catheter today if there is no plans to do anything on Monday. The dialysis nurse will plan to talk with Dr. Steward. - Physical Exam Vitals/I&O's: Vital Signs Temp Pulse Resp BP Pulse Ox 97.2 F L 69 18 165/60 H 93 10/03/20 06:59 10/03/20 07:53 10/03/20 06:59 10/03/20 06:59 10/03/20 07:36 Oxygen Flow Rate (L/min) 1 Oxygen Delivery Method Nasal Cannula Weight: 259 lb 7.745 oz Body Mass Index (BMI) 50.8 Finger Stick Blood Glucose 410 Intake and Output for Last 24 Hours 10/01/20 10/02/20 10/03/20 23:59 23:59 23:59 Intake Total 712.75 / 952.75 1120 / 1120 240 / 240 Output Total 1875 / 2050 1190 / 1190 350 / 350 Balance -1162.25 / -1097.25 -70 / -70 -110 / -110 General: Alert, Oriented x3, Cooperative, No apparent distress Neck: - - Dialysis catheter in place Microbiology Past 72 Hours 10/02/20 19:17 Mucosa - Nose SARS-CoV-2 Antigen (Rapid) - Final Laboratory Results 10/02/20 07:47: POC Glucose 82 10/02/20 10:06: POC Glucose 121 H 10/02/20 11:04: POC Glucose 164 H 10/02/20 16:57: POC Glucose 170 H 10/02/20 21:19: POC Glucose 180 H 10/03/20 05:18: Sodium 134 L, Potassium 4.6, Chloride 100, Carbon Dioxide 28.0, BUN 49 H, Creatinine 2.24 H, Estim Creat Clear Calc 15.83, Est GFR (MDRD) Af Amer 27 L, Est GFR (MDRD) Non-Af 23 L, BUN/Creatinine Ratio 21.9 H, Glucose 158 H, Calcium 8.6, Phosphorus 3.6, Albumin 2.4 L 10/03/20 05:18: WBC 6.5, RBC 3.30 L, Hgb 10.1 L, Hct 33.0 L, MCV 100.0 H, MCH 30.6, MCHC 30.6 L, RDW Std Deviation 55.8 H, RDW Coeff of Kusum 15.3 H, Plt Count 62 L, MPV 10.9, Immature Gran % (Auto) 0.500, Neut % (Auto) 71.7 H, Lymph % (Auto) 12.5 L, [place] % (Auto) 13.0 H, Eos % (Auto) 1.8, Baso % (Auto) 0.5, Absolute Neuts (auto) 4.7, Absolute Lymphs (auto) 0.82 L, Nucleated RBC % 0 Current Medications Acetaminophen (Acetaminophen 325 Mg Tablet) 650 mg PO Q6H PRN PRN PRN Reason: Pain Score 1-10 Last Admin: 10/03/20 06:57 Dose: 650 mg Documented by: Amlodipine Besylate (Amlodipine 10 Mg Tablet) 10 mg PO DAILY [facility] Last Admin: 10/03/20 05:01 Dose: 10 mg Documented by: Aspirin (Aspirin 81 Mg [facility].Chew) [facility] Last Admin: 10/03/20 08:23 Dose: 81 mg Documented by: Atorvastatin Calcium (Atorvastatin Calcium 10 Mg Tablet) 10 mg PO QHS [facility] Last Admin: 10/02/20 21:23 Dose: 10 mg Documented by: Dextrose (Dextrose 50%-Water 25 Gm/50 Ml Disp.Syrin) 0 gm IV X1 PRN; Protocol PRN Reason: Hypoglycemia Escitalopram Oxalate (Escitalopram Oxalate 10 Mg Tablet) 10 mg PO DAILY [facility] Last Admin: 10/02/20 10:01 Dose: 10 mg Documented by: Ferrous Sulfate (Ferrous Sulfate 325 Mg Tablet) 325 mg PO 1200,1700 [facility] Last Admin: 10/02/20 16:59 Dose: Not Given Documented by: Glucagon (Glucagon 1 Mg/Ml Syringe) 1 mg IM .X1 PRN PRN Reason: Hypoglycemia Heparin Sodium (Porcine) (Heparin Injection (Vial) 5,000 Unit/Ml Vial) 5,000 unit SC Q8 [facility] Last Admin: 10/03/20 05:04 Dose: Not Given Documented by: Sodium Chloride () 250 mls @ 15 mls/hr IV .[id number] PRN PRN Reason: Saline Flush Last Infusion: 10/02/20 07:36 Dose: Infused Documented by: Sodium Chloride () 250 mls @ 15 mls/hr IV .[id number] PRN PRN Reason: Additional IVPB Infusion Insulin Glargine (Insulin Glargine 100 Units/Ml Pen) 5 units SC BREAKFAST [facility] Last Admin: 10/03/20 08:21 Dose: 5 u Documented by: Insulin Glargine (Insulin Glargine 100 Units/Ml Pen) 5 units SC QHS [facility] Last Admin: 10/02/20 21:24 Dose: 5 units Documented by: Insulin Human Lispro (Insulin Lispro 100 Unit/Ml Insuln.Pen) 0 unit SC ACHS [facility]; Protocol Last Admin: 10/03/20 08:20 Dose: 2 u Documented by: Insulin Human Lispro (Insulin Lispro 100 Unit/Ml Insuln.Pen) 5 unit SC BREAKFAST [facility] Last Admin: 10/03/20 08:20 Dose: 5 unit Documented by: Insulin Human Lispro (Insulin Lispro 100 Unit/Ml Insuln.Pen) 5 unit SC DINNER [facility] Last Admin: 10/02/20 16:59 Dose: Not Given Documented by: Insulin Human Lispro (Insulin Lispro 100 Unit/Ml Insuln.Pen) 5 unit SC LUNCH [facility] Last Admin: 10/02/20 11:49 Dose: 5 u Documented by: Lacosamide (Lacosamide 100 Mg Tablet) 100 mg PO DAILY [facility] Metoprolol Succinate (Metoprolol(Xl)Succ 25 Mg Tablet) 75 mg PO DAILY [facility] Last Admin: 10/03/20 05:01 Dose: 75 mg Documented by: Nystatin (Nystatin Powder 15gm Bottle) 1 applic TOPICAL TID [facility]; Protocol Last Admin: 10/03/20 05:04 Dose: 1 applic Documented by: Polyethylene Glycol (Polyethylene Glycol 3350 17 Gm Packet) 17 gm PO BID [facility] Last Admin: 10/03/20 08:37 Dose: Not Given Documented by: Sodium Chloride (0.9% Saline Lock 10 Ml Syringe) 10 - 40 ml IV UD PRN PRN Reason: SALINE FLUSH Last Admin: 10/01/20 09:53 Dose: 10 ml Documented by: Medical Necessity - Tobacco Use Smoking Status: Former smoker Tobacco Use: Cigarettes Assessment/Plan All Active Problems Debility (Acute) Shortness of breath (Acute) ELENITA (obstructive sleep apnea) (Acute) Morbid obesity with BMI of 50.0-59.9, adult (Acute) Iron deficiency anemia (Acute) Hyperkalemia (Acute) Bradycardia (Acute) Intractable low back pain (Acute) UTI (urinary tract infection) (Acute) Dehydration (Acute) Acute renal failure (Acute) Community acquired pneumonia (Acute) DEBBIE (acute kidney injury) (Acute) Breakthrough seizure (Acute) Acute respiratory failure with hypoxia (Acute) Thrombocytopenia (Acute) 74-year-old female with acute on chronic kidney disease, hyperkalemia request for an urgent dialysis catheter status post placement of temporary dialysis catheter 1. Plan to place a tunneled dialysis catheter on 10/05/2020 1?2 PM. Patient no further questions about the catheter. We will plan to remove the dialysis catheter today as emergent cases are only done on Monday--dialysis nurse will check with Dr. Steward prior to removing. Paige Andrade M.D. Pager: [phone] [facility] [address] [place] [address], [address] [place] [address] Office: [phone] Procedure Criteria Procedure Type: Elective COVID Risk Discussion: The surgeon/proceduralist and patient have discussed in detail the risk of exposure to and/or potential harm posed by the COVID-19 virus with having a surgery/procedure at this time versus the risk of delaying the surgery/procedure. It is not possible to know either the risk of delaying the surgery or procedure or chance of getting an infection with perfect accuracy, but a joint decision was made between the patient and the surgeon/proceduralist to proceed at this time with the scheduled surgery/procedure as indicated on the consent form. Inpatient E&M: 12551 [facility] Hosp L2
[2020-10-03 08:41] LABS: Bedside Glucose 151 mg/dL (70-110)
[2020-10-03] MEDS: Escitalopram Oxalate 10 MG Tablet PO (09:39)
--- NOTE | 2020-10-03 11:05 | PN_ITS ---
Patient Problems: Active and Suspected Problems Debility (Acute) Shortness of breath (Acute) ELENITA (obstructive sleep apnea) (Acute) Morbid obesity with BMI of 50.0-59.9, adult (Acute) Iron deficiency anemia (Acute) Bradycardia (Acute) UTI (urinary tract infection) (Acute) Dehydration (Acute) Acute renal failure (Acute) DEBBIE (acute kidney injury) (Acute) Breakthrough seizure (Acute) Acute respiratory failure with hypoxia (Acute) Thrombocytopenia (Acute) Subjective: Doing well, no issues overnight. Edema is improving a little bit. Vitals/I&O's: Vital Signs Temp Pulse Resp BP Pulse Ox 97.2 F L 69 18 165/60 H 93 10/03/20 06:59 10/03/20 07:53 10/03/20 06:59 10/03/20 06:59 10/03/20 07:36 Oxygen Flow Rate (L/min) 2 Oxygen Delivery Method Nasal Cannula Weight: 259 lb 7.745 oz Body Mass Index (BMI) 50.8 Finger Stick Blood Glucose 410 Intake and Output for Last 24 Hours 10/01/20 10/02/20 10/03/20 23:59 23:59 23:59 Intake Total 712.75 / 952.75 1120 / 1120 240 / 240 Output Total 1875 / 2050 1190 / 1190 350 / 350 Balance -1162.25 / -1097.25 -70 / -70 -110 / -110 General: Alert, oriented x3, no acute distress, cooperative HEENT: Atraumatic, PERRLA, EOMI, Normocephalic, - - Ecchymosis on her right neck secondary to EMS Oral: Dry Mucosa Neck: Supple, No JVD Lungs: Normal air movement, No rhonchi, No wheeze, No rales, Diminished Cardiovascular: Bradycardia, Regular Rhythm, Normal S1, Normal S2, No murmurs Abdomen: Soft, Non Tender, Non-Distended, No Hepato-splenomegaly Extremities: Capillary Refill Less than 3 Seconds, Edema - Anasarca with dependent edema in all extremities Skin: No rashes, No breakdown Neurological: Neuro grossly intact, Sensory exam intact to light touch and pain Psych/Mental Status: Normal affect, appropriate Microbiology Past 72 Hours 10/02/20 19:17 Mucosa - Nose SARS-CoV-2 Antigen (Rapid) - Final Laboratory Results 10/02/20 11:04: POC Glucose 164 H 10/02/20 16:57: POC Glucose 170 H 10/02/20 21:19: POC Glucose 180 H 10/03/20 05:18: Sodium 134 L, Potassium 4.6, Chloride 100, Carbon Dioxide 28.0, BUN 49 H, Creatinine 2.24 H, Estim Creat Clear Calc 15.83, Est GFR (MDRD) Af Amer 27 L, Est GFR (MDRD) Non-Af 23 L, BUN/Creatinine Ratio 21.9 H, Glucose 158 H, Calcium 8.6, Phosphorus 3.6, Albumin 2.4 L 10/03/20 05:18: WBC 6.5, RBC 3.30 L, Hgb 10.1 L, Hct 33.0 L, MCV 100.0 H, MCH 30.6, MCHC 30.6 L, RDW Std Deviation 55.8 H, RDW Coeff of Kusum 15.3 H, Plt Count 62 L, MPV 10.9, Immature Gran % (Auto) 0.500, Neut % (Auto) 71.7 H, Lymph % (Auto) 12.5 L, [place] % (Auto) 13.0 H, Eos % (Auto) 1.8, Baso % (Auto) 0.5, Absolute Neuts (auto) 4.7, Absolute Lymphs (auto) 0.82 L, Nucleated RBC % 0 10/03/20 08:17: POC Glucose 151 H Current Medications Acetaminophen (Acetaminophen 325 Mg Tablet) 650 mg PO Q6H PRN PRN PRN Reason: Pain Score 1-10 Last Admin: 10/03/20 06:57 Dose: 650 mg Documented by: Amlodipine Besylate (Amlodipine 10 Mg Tablet) 10 mg PO DAILY [facility] Last Admin: 10/03/20 05:01 Dose: 10 mg Documented by: Aspirin (Aspirin 81 Mg Tab.Chew) [facility] Last Admin: 10/03/20 08:23 Dose: 81 mg Documented by: Atorvastatin Calcium (Atorvastatin Calcium 10 Mg Tablet) 10 mg PO QHS [facility] Last Admin: 10/02/20 21:23 Dose: 10 mg Documented by: Dextrose (Dextrose 50%-Water 25 Gm/50 Ml Disp.Syrin) 0 gm IV X1 PRN; Protocol PRN Reason: Hypoglycemia Escitalopram Oxalate (Escitalopram Oxalate 10 Mg Tablet) 10 mg PO DAILY [facility] Last Admin: 10/03/20 09:39 Dose: 10 mg Documented by: Ferrous Sulfate (Ferrous Sulfate 325 Mg Tablet) 325 mg PO 1200,1700 [facility] Last Admin: 10/02/20 16:59 Dose: Not Given Documented by: Glucagon (Glucagon 1 Mg/Ml Syringe) 1 mg IM .X1 PRN PRN Reason: Hypoglycemia Heparin Sodium (Porcine) (Heparin Injection (Vial) 5,000 Unit/Ml Vial) 5,000 unit SC Q8 [facility] Last Admin: 10/03/20 05:04 Dose: Not Given Documented by: Sodium Chloride () 250 mls @ 15 mls/hr IV .[id number] PRN PRN Reason: Saline Flush Last Infusion: 10/02/20 07:36 Dose: Infused Documented by: Sodium Chloride () 250 mls @ 15 mls/hr IV .[id number] PRN PRN Reason: Additional IVPB Infusion Insulin Glargine (Insulin Glargine 100 Units/Ml Pen) 5 units SC BREAKFAST [facility] Last Admin: 10/03/20 08:21 Dose: 5 u Documented by: Insulin Glargine (Insulin Glargine 100 Units/Ml Pen) 5 units SC QHS [facility] Last Admin: 10/02/20 21:24 Dose: 5 units Documented by: Insulin Human Lispro (Insulin Lispro 100 Unit/Ml Insuln.Pen) 0 unit SC ACHS [facility]; Protocol Last Admin: 10/03/20 08:20 Dose: 2 u Documented by: Insulin Human Lispro (Insulin Lispro 100 Unit/Ml Insuln.Pen) 5 unit SC BREAKFAST [facility] Last Admin: 10/03/20 08:20 Dose: 5 unit Documented by: Insulin Human Lispro (Insulin Lispro 100 Unit/Ml Insuln.Pen) 5 unit SC DINNER [facility] Last Admin: 10/02/20 16:59 Dose: Not Given Documented by: Insulin Human Lispro (Insulin Lispro 100 Unit/Ml Insuln.Pen) 5 unit SC LUNCH [facility] Last Admin: 10/02/20 11:49 Dose: 5 u Documented by: Lacosamide (Lacosamide 100 Mg Tablet) 100 mg PO DAILY [facility] Metoprolol Succinate (Metoprolol(Xl)Succ 25 Mg Tablet) 75 mg PO DAILY [facility] Last Admin: 10/03/20 05:01 Dose: 75 mg Documented by: Nystatin (Nystatin Powder 15gm Bottle) 1 applic TOPICAL TID [facility]; Protocol Last Admin: 10/03/20 05:04 Dose: 1 applic Documented by: Polyethylene Glycol (Polyethylene Glycol 3350 17 Gm Packet) 17 gm PO BID [facility] Last Admin: 10/03/20 08:37 Dose: Not Given Documented by: Sodium Chloride (0.9% Saline Lock 10 Ml Syringe) 10 - 40 ml IV UD PRN PRN Reason: SALINE FLUSH Last Admin: 10/01/20 09:53 Dose: 10 ml Documented by: STROKE Vital Signs/Narrative: Vital Signs Pulse Pulse Ox 10/03/20 07:53 69 10/03/20 07:36 93 Medical Necessity - Tobacco Use Smoking Status: Former smoker Tobacco Use: Cigarettes Assessment/Plan All Active Problems Debility (Acute) Shortness of breath (Acute) ELENITA (obstructive sleep apnea) (Acute) Morbid obesity with BMI of 50.0-59.9, adult (Acute) Iron deficiency anemia (Acute) Hyperkalemia (Acute) Bradycardia (Acute) Intractable low back pain (Acute) UTI (urinary tract infection) (Acute) Dehydration (Acute) Acute renal failure (Acute) Community acquired pneumonia (Acute) DEBBIE (acute kidney injury) (Acute) Breakthrough seizure (Acute) Acute respiratory failure with hypoxia (Acute) Thrombocytopenia (Acute) 1. Acute hypoxic respiratory failure secondary to acute on chronic diastolic CHF/HTN/HLD/bradycardia -Echo with EF of 55% and severely dilated right ventricle, consistent with cor pulmonale. She likely has a component of ELENITA and will need to follow-up with pulmonology as an outpatient for sleep study -Temporary dialysis line was placed 09/30/2020 and she underwent dialysis, creatinine has improved therefore will monitor and may not need to continue any further dialysis -Given her bradycardia will not reinitiate her metoprolol, her heart rate is improving with dialysis. Given her rising creatinine we will hold her lisinopril, given her borderline blood pressures will hold her isosorbide -We will hold her Norvasc as this can lead to swelling -Continue with statin 2. Post ictal status post seizure -EEG with no seizure-like activity just encephalopathy likely secondary to uremia -We will continue with her Vimpat, and may need to get a neurology consult after the EEG is read, however it could have been secondary to her hypoglycemia 3. IDDM 2/morbid obesity/CKD 4 with uremia and mild metabolic encephalopathy which has resolved -Does not appear that has been following a diet and did not take her insulin today -Blood sugars elevated to 406 -We will place her on her long-acting insulin at 5 units twice daily as well as sliding scale insulin and mealtime insulin. Also put her on an appropriate diet with appropriate calories -Accu-Cheks AC at bedtime -Discussed lifestyle modifications -She has had a significant increase in her creatinine over the last 9 months, temporary dialysis line is in and she is undergoing dialysis. Uremia is resolving as is her confusion 4. Anxiety/depression -Stable -We will hold off on her trazodone and Lexapro secondary to her disorientation and somnolence 5. Iron deficiency anemia -Hemoglobin is around 9.3, her iron is 35 with a total iron binding capacity of 338 iron saturation of 10.4 normal ferritin -Continue with iron replacement DVT: Heparin Inpatient E&M: 09450 Subs Hosp L2
[2020-10-03] MEDS: Ferrous Sulfate 325 MG Tablet PO ×2 (12:23→16:51)
[2020-10-03 12:31] LABS: Bedside Glucose 178 mg/dL (70-110)
--- NOTE | 2020-10-03 12:37 | PN.RENAL_ITS ---
Patient Problems: Active and Suspected Problems Debility (Acute) Shortness of breath (Acute) ELENITA (obstructive sleep apnea) (Acute) Morbid obesity with BMI of 50.0-59.9, adult (Acute) Iron deficiency anemia (Acute) Bradycardia (Acute) UTI (urinary tract infection) (Acute) Dehydration (Acute) Acute renal failure (Acute) DEBBIE (acute kidney injury) (Acute) Breakthrough seizure (Acute) Acute respiratory failure with hypoxia (Acute) Thrombocytopenia (Acute) Subjective: complains of dizziness, does not like hospital food. BP, HR stable. Urine output good. Creatinine improved today. Will hold dialysis and get 24h urine. Still deciding on ECF placement. - Physical Exam Vitals/I&O's: Vital Signs Temp Pulse Resp BP Pulse Ox 97.2 F L 69 18 165/60 H 93 10/03/20 06:59 10/03/20 07:53 10/03/20 06:59 10/03/20 06:59 10/03/20 07:36 Oxygen Flow Rate (L/min) 1 Oxygen Delivery Method Nasal Cannula Weight: 117.7 kg Body Mass Index (BMI) 50.8 Finger Stick Blood Glucose 410 Intake and Output for Last 24 Hours 10/01/20 10/02/20 10/03/20 23:59 23:59 23:59 Intake Total 712.75 / 952.75 1120 / 1120 240 / 240 Output Total 187 / 0 1190 / 1190 350 / 350 Balance -1162.25 / -1097.25 -70 / -70 -110 / -110 General: Alert, Oriented x3, - - drowsy Lungs: Clear to auscultation Cardiovascular: Regular rate Extremities: No edema Psych/Mental Status: Flat Affect, Alert and oriented to time, place, person, mood and affect Microbiology Past 72 Hours 10/02/20 19:17 Mucosa - Nose SARS-CoV-2 Antigen (Rapid) - Final Laboratory Results 10/02/20 16:57: POC Glucose 170 H 10/02/20 21:19: POC Glucose 180 H 10/03/20 05:18: Sodium 134 L, Potassium 4.6, Chloride 100, Carbon Dioxide 28.0, BUN 49 H, Creatinine 2.24 H, Estim Creat Clear Calc 15.83, Est GFR (MDRD) Af Amer 27 L, Est GFR (MDRD) Non-Af 23 L, BUN/Creatinine Ratio 21.9 H, Glucose 158 H, Calcium 8.6, Phosphorus 3.6, Albumin 2.4 L 10/03/20 05:18: WBC 6.5, RBC 3.30 L, Hgb 10.1 L, Hct 33.0 L, MCV 100.0 H, MCH 30.6, MCHC 30.6 L, RDW Std Deviation 55.8 H, RDW Coeff of Kusum 15.3 H, Plt Count 62 L, MPV 10.9, Immature Gran % (Auto) 0.500, Neut % (Auto) 71.7 H, Lymph % (Auto) 12.5 L, [place] % (Auto) 13.0 H, Eos % (Auto) 1.8, Baso % (Auto) 0.5, Absolute Neuts (auto) 4.7, Absolute Lymphs (auto) 0.82 L, Nucleated RBC % 0 10/03/20 08:17: POC Glucose 151 H 10/03/20 12:21: POC Glucose 178 H Current Medications Acetaminophen (Acetaminophen 325 Mg Tablet) 650 mg PO Q6H PRN PRN PRN Reason: Pain Score 1-10 Last Admin: 10/03/20 06:57 Dose: 650 mg Documented by: Amlodipine Besylate (Amlodipine 10 Mg Tablet) 10 mg PO DAILY [facility] Last Admin: 10/03/20 05:01 Dose: 10 mg Documented by: Aspirin (Aspirin 81 Mg Tab.Chew) [facility] Last Admin: 10/03/20 08:23 Dose: 81 mg Documented by: Atorvastatin Calcium (Atorvastatin Calcium 10 Mg Tablet) 10 mg PO QHS [facility] Last Admin: 10/02/20 21:23 Dose: 10 mg Documented by: Dextrose (Dextrose 50%-Water 25 Gm/50 Ml Disp.Syrin) 0 gm IV X1 PRN; Protocol PRN Reason: Hypoglycemia Escitalopram Oxalate (Escitalopram Oxalate 10 Mg Tablet) 10 mg PO DAILY [facility] Last Admin: 10/03/20 09:39 Dose: 10 mg Documented by: Ferrous Sulfate (Ferrous Sulfate 325 Mg Tablet) 325 mg PO 1200,1700 [facility] Last Admin: 10/03/20 12:23 Dose: 325 mg Documented by: Glucagon (Glucagon 1 Mg/Ml Syringe) 1 mg IM .X1 PRN PRN Reason: Hypoglycemia Heparin Sodium (Porcine) (Heparin Injection (Vial) 5,000 Unit/Ml Vial) 5,000 unit SC Q8 [facility] Last Admin: 10/03/20 05:04 Dose: Not Given Documented by: Sodium Chloride () 250 mls @ 15 mls/hr IV .[id number] PRN PRN Reason: Saline Flush Last Infusion: 10/02/20 07:36 Dose: Infused Documented by: Sodium Chloride () 250 mls @ 15 mls/hr IV .[id number] PRN PRN Reason: Additional IVPB Infusion Insulin Glargine (Insulin Glargine 100 Units/Ml Pen) 5 units SC BREAKFAST [facility] Last Admin: 10/03/20 08:21 Dose: 5 u Documented by: Insulin Glargine (Insulin Glargine 100 Units/Ml Pen) 5 units SC QHS [facility] Last Admin: 10/02/20 21:24 Dose: 5 units Documented by: Insulin Human Lispro (Insulin Lispro 100 Unit/Ml Insuln.Pen) 0 unit SC ACHS [facility]; Protocol Last Admin: 10/03/20 12:24 Dose: 2 u Documented by: Insulin Human Lispro (Insulin Lispro 100 Unit/Ml Insuln.Pen) 5 unit SC BREAKFAST [facility] Last Admin: 10/03/20 08:20 Dose: 5 unit Documented by: Insulin Human Lispro (Insulin Lispro 100 Unit/Ml Insuln.Pen) 5 unit SC DINNER [facility] Last Admin: 10/02/20 16:59 Dose: Not Given Documented by: Insulin Human Lispro (Insulin Lispro 100 Unit/Ml Insuln.Pen) 5 unit SC LUNCH [facility] Last Admin: 10/03/20 12:24 Dose: 5 u Documented by: Lacosamide (Lacosamide 100 Mg Tablet) 100 mg PO DAILY [facility] Metoprolol Succinate (Metoprolol(Xl)Succ 25 Mg Tablet) 75 mg PO DAILY [facility] Last Admin: 10/03/20 05:01 Dose: 75 mg Documented by: Nystatin (Nystatin Powder 15gm Bottle) 1 applic TOPICAL TID [facility]; Protocol Last Admin: 10/03/20 05:04 Dose: 1 applic Documented by: Polyethylene Glycol (Polyethylene Glycol 3350 17 Gm Packet) 17 gm PO BID [facility] Last Admin: 10/03/20 08:37 Dose: Not Given Documented by: Sodium Chloride (0.9% Saline Lock 10 Ml Syringe) 10 - 40 ml IV UD PRN PRN Reason: SALINE FLUSH Last Admin: 10/01/20 09:53 Dose: 10 ml Documented by: Medical Necessity - Tobacco Use Smoking Status: Former smoker Tobacco Use: Cigarettes Assessment/Plan All Active Problems Debility (Acute) Shortness of breath (Acute) ELENITA (obstructive sleep apnea) (Acute) Morbid obesity with BMI of 50.0-59.9, adult (Acute) Iron deficiency anemia (Acute) Hyperkalemia (Acute) Bradycardia (Acute) Intractable low back pain (Acute) UTI (urinary tract infection) (Acute) Dehydration (Acute) Acute renal failure (Acute) Community acquired pneumonia (Acute) DEBBIE (acute kidney injury) (Acute) Breakthrough seizure (Acute) Acute respiratory failure with hypoxia (Acute) Thrombocytopenia (Acute) 1. Acute on CKD Stage 3 due to ATN. Baseline creatinine 1.5 eGFR 40cc/min in December 2019 due to diabetes. Creatinine improving with good UOP. Hold dialysis today. Dialysis x2 so far. Watch for renal recovery. Check 24h urine CRCL, TP. Vein mapping. Remove temp dialysis catheter today. Continue daily labs. 2. iron def anemia hgb stable, continue oral iron 3. Diastolic HF lasix daily 4. Seizure activity on vimpat EEG pending 5. DM type 2 with nephropathy DW nursing, hospitalist, pt spouse at bedside.
--- NOTE | 2020-10-03 13:19 | DIALYSIS ---
[facility] TEMPORARY CATH REMOVED ORDERED PER DR CHASE. SITE HELD TILL BLEEDING STOPPED. DSG AT SITE REPORT TO ELIZABETH MALDONADO PT TOLERATED WELL.
[2020-10-03] MEDS: Heparin Injection (Vial) 5,000 UNIT/ML VIAL 5000 UNIT SC ×2 (14:55→21:01)
[2020-10-03 16:51] LABS: Bedside Glucose 142 mg/dL (70-110)
[2020-10-03] MEDS: Lacosamide 100 MG Tablet PO (17:01)
[2020-10-03] MEDS: Atorvastatin Calcium 10 MG Tablet PO (21:02)
[2020-10-03 21:16] LABS: Bedside Glucose 148 mg/dL (70-110)
[2020-10-04] VITALS (10 sets, daily range): BP systolic 144–167; BP diastolic 58–83; PULSE 61–66; RESP 16–18; TEMP 36.1–36.7; O2SAT 94–99
[2020-10-04] MEDS: Heparin Injection (Vial) 5,000 UNIT/ML VIAL 5000 UNIT SC ×3 (05:00→21:43)
[2020-10-04] MEDS: Nystatin Powder 15gm Bottle 1 APPLIC TOPICAL (05:00)
[2020-10-04 05:27] LABS: Albumin, Serum 1.4 g/dL (3.2-5.0); BUN 47 mg/dL (7-18); BUN/Creat Ratio 22.5 RATIO (10-20); Calcium,Total 8.6 mg/dL (8.5-10.1); Chloride 103 mmol/L (98-107); Creatinine, Serum 2.09 mg/dL (0.55-1.02); EST Glomerular Filtration Rate 25 mL/min (>60); Est Glom Filt Rate - Afr Amer 30 mL/min (>60); Estimated Creatinine Clearance 16.96 ml/min; Glucose 122 mg/dL (74-106); Phosphorus 3.6 mg/dL (2.5-4.9); Potassium 4.8 mmol/L (3.5-5.1); Sodium Level 130 mmol/L (136-145)
[2020-10-04] MEDS: Insulin Lispro 100 UNIT/ML INSULN.PEN SC ×3 (08:37→16:27)
[2020-10-04] MEDS: Aspirin 81 MG TAB.CHEW PO (08:38)
[2020-10-04] MEDS: Metoprolol(XL)Succ 25 MG Tablet 75 MG PO (08:39)
[2020-10-04] MEDS: Escitalopram Oxalate 10 MG Tablet PO (08:39)
[2020-10-04] MEDS: amLODIPine 10 MG Tablet PO (08:39)
[2020-10-04] MEDS: Ferrous Sulfate 325 MG Tablet PO ×2 (08:40→16:27)
--- NOTE | 2020-10-04 09:07 | PCM.PN.SRG ---
Patient Problems: Active and Suspected Problems Debility (Acute) Shortness of breath (Acute) ELENITA (obstructive sleep apnea) (Acute) Morbid obesity with BMI of 50.0-59.9, adult (Acute) Iron deficiency anemia (Acute) Bradycardia (Acute) UTI (urinary tract infection) (Acute) Dehydration (Acute) Acute renal failure (Acute) DEBBIE (acute kidney injury) (Acute) Breakthrough seizure (Acute) Acute respiratory failure with hypoxia (Acute) Thrombocytopenia (Acute) Subjective: Patient status post catheter is moved yesterday patient will not be needing any further dialysis procedure for Monday canceled - Physical Exam Vitals/I&O's: Vital Signs Temp Pulse Resp BP Pulse Ox 98.0 F 66 18 152/78 H 94 10/04/20 08:34 10/04/20 08:39 10/04/20 08:34 10/04/20 08:39 10/04/20 08:34 Oxygen Flow Rate (L/min) 1 Oxygen Delivery Method Nasal Cannula Weight: 260 lb 2.327 oz Body Mass Index (BMI) 50.8 Finger Stick Blood Glucose 410 Intake and Output for Last 24 Hours 10/02/20 10/03/20 10/04/20 23:59 23:59 23:59 Intake Total 1120 / 1120 480 / 480 Output Total 1190 / 1190 1000 / 1000 225 / 225 Balance -70 / -70 -520 / -520 -225 / -225 General: Alert, Oriented x3, Cooperative, No apparent distress HEENT: - - Right neck dressed, dialysis catheter removed Microbiology Past 72 Hours 10/02/20 19:17 Mucosa - Nose SARS-CoV-2 Antigen (Rapid) - Final Laboratory Results 10/03/20 12:21: POC Glucose 178 H 10/03/20 16:46: POC Glucose 142 H 10/03/20 20:59: POC Glucose 148 H 10/04/20 04:40: Sodium 130 L, Potassium 4.8, Chloride 103, Carbon Dioxide 22.0, BUN 47 H, Creatinine 2.09 H, Estim Creat Clear Calc 16.96, Est GFR (MDRD) Af Amer 30 L, Est GFR (MDRD) Non-Af 25 L, BUN/Creatinine Ratio 22.5 H, Glucose 122 H, Calcium 8.6, Phosphorus 3.6, Albumin 1.4 L Current Medications Acetaminophen (Acetaminophen 325 Mg Tablet) 650 mg PO Q6H PRN PRN PRN Reason: Pain Score 1-10 Last Admin: 10/03/20 06:57 Dose: 650 mg Documented by: Amlodipine Besylate (Amlodipine 10 Mg Tablet) 10 mg PO DAILY [facility] Last Admin: 10/04/20 08:39 Dose: 10 mg Documented by: Aspirin (Aspirin 81 Mg Tab.Chew) 81 mg PO DAILYCM [facility] Last Admin: 10/04/20 08:38 Dose: 81 mg Documented by: Atorvastatin Calcium (Atorvastatin Calcium 10 Mg Tablet) 10 mg PO QHS [facility] Last Admin: 10/03/20 21:02 Dose: 10 mg Documented by: Dextrose (Dextrose 50%-Water 25 Gm/50 Ml Disp.Syrin) 0 gm IV X1 PRN; Protocol PRN Reason: Hypoglycemia Escitalopram Oxalate (Escitalopram Oxalate 10 Mg Tablet) 10 mg PO DAILY [facility] Last Admin: 10/04/20 08:39 Dose: 10 mg Documented by: Ferrous Sulfate (Ferrous Sulfate 325 Mg Tablet) 325 mg PO 1200,1700 [facility] Last Admin: 10/04/20 08:40 Dose: 325 mg Documented by: Furosemide (Furosemide 40 Mg Tablet) 40 mg PO X1 ONE Stop: 10/04/20 09:07 Glucagon (Glucagon 1 Mg/Ml Syringe) 1 mg IM .X1 PRN PRN Reason: Hypoglycemia Heparin Sodium (Porcine) (Heparin Injection (Vial) 5,000 Unit/Ml Vial) 5,000 unit SC Q8 [facility] Last Admin: 10/04/20 05:00 Dose: 5,000 unit Documented by: Sodium Chloride () 250 mls @ 15 mls/hr IV .[id number] PRN PRN Reason: Saline Flush Last Infusion: 10/02/20 07:36 Dose: Infused Documented by: Sodium Chloride () 250 mls @ 15 mls/hr IV .[id number] PRN PRN Reason: Additional IVPB Infusion Insulin Glargine (Insulin Glargine 100 Units/Ml Pen) 5 units SC BREAKFAST [facility] Last Admin: 10/04/20 08:36 Dose: 5 u Documented by: Insulin Glargine (Insulin Glargine 100 Units/Ml Pen) 5 units SC QHS [facility] Last Admin: 10/03/20 21:02 Dose: 5 units Documented by: Insulin Human Lispro (Insulin Lispro 100 Unit/Ml Insuln.Pen) 0 unit SC ACHS [facility]; Protocol Last Admin: 10/04/20 08:35 Dose: Not Given Documented by: Insulin Human Lispro (Insulin Lispro 100 Unit/Ml Insuln.Pen) 5 unit SC BREAKFAST [facility] Last Admin: 10/04/20 08:37 Dose: 5 unit Documented by: Insulin Human Lispro (Insulin Lispro 100 Unit/Ml Insuln.Pen) 5 unit SC DINNER [facility] Last Admin: 10/03/20 16:51 Dose: 5 u Documented by: Insulin Human Lispro (Insulin Lispro 100 Unit/Ml Insuln.Pen) 5 unit SC LUNCH [facility] Last Admin: 10/03/20 12:24 Dose: 5 u Documented by: Lacosamide (Lacosamide 100 Mg Tablet) 100 mg PO DAILY [facility] Last Admin: 10/03/20 17:01 Dose: 100 mg Documented by: Metoprolol Succinate (Metoprolol(Xl)Succ 25 Mg Tablet) 75 mg PO DAILY [facility] Last Admin: 10/04/20 08:39 Dose: 75 mg Documented by: Nystatin (Nystatin Powder 15gm Bottle) 1 applic TOPICAL TID [facility]; Protocol Last Admin: 10/04/20 05:00 Dose: 1 applic Documented by: Polyethylene Glycol (Polyethylene Glycol 3350 17 Gm Packet) 17 gm PO BID [facility] Last Admin: 10/04/20 08:39 Dose: Not Given Documented by: Sodium Chloride (0.9% Saline Lock 10 Ml Syringe) 10 - 40 ml IV UD PRN PRN Reason: SALINE FLUSH Last Admin: 10/01/20 09:53 Dose: 10 ml Documented by: Medical Necessity - Tobacco Use Smoking Status: Former smoker Tobacco Use: Cigarettes Assessment/Plan All Active Problems Debility (Acute) Shortness of breath (Acute) ELENITA (obstructive sleep apnea) (Acute) Morbid obesity with BMI of 50.0-59.9, adult (Acute) Iron deficiency anemia (Acute) Hyperkalemia (Acute) Bradycardia (Acute) Intractable low back pain (Acute) UTI (urinary tract infection) (Acute) Dehydration (Acute) Acute renal failure (Acute) Community acquired pneumonia (Acute) DEBBIE (acute kidney injury) (Acute) Breakthrough seizure (Acute) Acute respiratory failure with hypoxia (Acute) Thrombocytopenia (Acute) 74-year-old female with acute on chronic kidney disease, hyperkalemia request for an urgent dialysis catheter status post placement of temporary dialysis catheter 1. We will not require any future dialysis currently, tunnel dialysis catheter canceled. Paige Andrade M.D. Pager: [phone] [facility] [address] [place] [address], [facility], [address] [place] [address] Office: [phone] Inpatient E&M: 17485 Subs Hosp L2
[2020-10-04] MEDS: Lacosamide 100 MG Tablet PO (09:28)
--- NOTE | 2020-10-04 09:30 | PCM.PN.HOSP ---
Patient Problems: Active and Suspected Problems Debility (Acute) Shortness of breath (Acute) ELENITA (obstructive sleep apnea) (Acute) Morbid obesity with BMI of 50.0-59.9, adult (Acute) Iron deficiency anemia (Acute) Bradycardia (Acute) UTI (urinary tract infection) (Acute) Dehydration (Acute) Acute renal failure (Acute) DEBBIE (acute kidney injury) (Acute) Breakthrough seizure (Acute) Acute respiratory failure with hypoxia (Acute) Thrombocytopenia (Acute) Subjective: Doing well today, no issues overnight. Her temporary dialysis catheter was removed yesterday and her creatinine has improved overnight and she is continuing to make urine. Vitals/I&O's: Vital Signs Temp Pulse Resp BP Pulse Ox 98.0 F 66 18 152/78 H 94 10/04/20 08:34 10/04/20 08:39 10/04/20 08:34 10/04/20 08:39 10/04/20 08:34 Oxygen Flow Rate (L/min) 1 Oxygen Delivery Method Nasal Cannula Weight: 260 lb 2.327 oz Body Mass Index (BMI) 50.8 Finger Stick Blood Glucose 410 Intake and Output for Last 24 Hours 10/02/20 10/03/20 10/04/20 23:59 23:59 23:59 Intake Total 1120 / 1120 480 / 480 Output Total 1190 / 1190 1000 / 1000 225 / 225 Balance -70 / -70 -520 / -520 -225 / -225 General: Alert, oriented x3, no acute distress, cooperative HEENT: Atraumatic, PERRLA, EOMI, Normocephalic, - - Ecchymosis on her right neck secondary to EMS Oral: Dry Mucosa Neck: Supple, No JVD Lungs: Normal air movement, No rhonchi, No wheeze, No rales, Diminished Cardiovascular: Regular rate, Regular Rhythm, Normal S1, Normal S2, No murmurs Abdomen: Soft, Non Tender, Non-Distended, No Hepato-splenomegaly Extremities: Capillary Refill Less than 3 Seconds, Edema - Anasarca with dependent edema in all extremities Skin: No rashes, No breakdown Neurological: Neuro grossly intact, Sensory exam intact to light touch and pain Psych/Mental Status: Normal affect, appropriate Microbiology Past 72 Hours 10/02/20 19:17 Mucosa - Nose SARS-CoV-2 Antigen (Rapid) - Final Laboratory Results 10/03/20 12:21: POC Glucose 178 H 10/03/20 16:46: POC Glucose 142 H 10/03/20 20:59: POC Glucose 148 H 10/04/20 04:40: Sodium 130 L, Potassium 4.8, Chloride 103, Carbon Dioxide 22.0, BUN 47 H, Creatinine 2.09 H, Estim Creat Clear Calc 16.96, Est GFR (MDRD) Af Amer 30 L, Est GFR (MDRD) Non-Af 25 L, BUN/Creatinine Ratio 22.5 H, Glucose 122 H, Calcium 8.6, Phosphorus 3.6, Albumin 1.4 L Current Medications Acetaminophen (Acetaminophen 325 Mg Tablet) 650 mg PO Q6H PRN PRN PRN Reason: Pain Score 1-10 Last Admin: 10/03/20 06:57 Dose: 650 mg Documented by: Amlodipine Besylate (Amlodipine 10 Mg Tablet) 10 mg PO DAILY [facility] Last Admin: 10/04/20 08:39 Dose: 10 mg Documented by: Aspirin (Aspirin 81 Mg Tab.Chew) 81 mg PO DAILYCM [facility] Last Admin: 10/04/20 08:38 Dose: 81 mg Documented by: Atorvastatin Calcium (Atorvastatin Calcium 10 Mg Tablet) 10 mg PO QHS [facility] Last Admin: 10/03/20 21:02 Dose: 10 mg Documented by: Dextrose (Dextrose 50%-Water 25 Gm/50 Ml Disp.Syrin) 0 gm IV X1 PRN; Protocol PRN Reason: Hypoglycemia Escitalopram Oxalate (Escitalopram Oxalate 10 Mg Tablet) 10 mg PO DAILY [facility] Last Admin: 10/04/20 08:39 Dose: 10 mg Documented by: Ferrous Sulfate (Ferrous Sulfate 325 Mg Tablet) 325 mg PO 1200,1700 [facility] Last Admin: 10/04/20 08:40 Dose: 325 mg Documented by: Furosemide (Furosemide 40 Mg Tablet) 40 mg PO X1 ONE Stop: 10/04/20 09:31 Glucagon (Glucagon 1 Mg/Ml Syringe) 1 mg IM .X1 PRN PRN Reason: Hypoglycemia Heparin Sodium (Porcine) (Heparin Injection (Vial) 5,000 Unit/Ml Vial) 5,000 unit SC Q8 [facility] Last Admin: 10/04/20 05:00 Dose: 5,000 unit Documented by: Sodium Chloride () 250 mls @ 15 mls/hr IV .[id number] PRN PRN Reason: Saline Flush Last Infusion: 10/02/20 07:36 Dose: Infused Documented by: Sodium Chloride () 250 mls @ 15 mls/hr IV .[id number] PRN PRN Reason: Additional IVPB Infusion Insulin Glargine (Insulin Glargine 100 Units/Ml Pen) 5 units SC BREAKFAST [facility] Last Admin: 10/04/20 08:36 Dose: 5 u Documented by: Insulin Glargine (Insulin Glargine 100 Units/Ml Pen) 5 units SC QHS [facility] Last Admin: 10/03/20 21:02 Dose: 5 units Documented by: Insulin Human Lispro (Insulin Lispro 100 Unit/Ml Insuln.Pen) 0 unit SC ACHS [facility]; Protocol Last Admin: 10/04/20 08:35 Dose: Not Given Documented by: Insulin Human Lispro (Insulin Lispro 100 Unit/Ml Insuln.Pen) 5 unit SC BREAKFAST [facility] Last Admin: 10/04/20 08:37 Dose: 5 unit Documented by: Insulin Human Lispro (Insulin Lispro 100 Unit/Ml Insuln.Pen) 5 unit SC DINNER [facility] Last Admin: 10/03/20 16:51 Dose: 5 u Documented by: Insulin Human Lispro (Insulin Lispro 100 Unit/Ml Insuln.Pen) 5 unit SC LUNCH [facility] Last Admin: 10/03/20 12:24 Dose: 5 u Documented by: Lacosamide (Lacosamide 100 Mg Tablet) 100 mg PO DAILY [facility] Last Admin: 10/04/20 09:28 Dose: 100 mg Documented by: Metoprolol Succinate (Metoprolol(Xl)Succ 25 Mg Tablet) 75 mg PO DAILY [facility] Last Admin: 10/04/20 08:39 Dose: 75 mg Documented by: Nystatin (Nystatin Powder 15gm Bottle) 1 applic TOPICAL TID [facility]; Protocol Last Admin: 10/04/20 05:00 Dose: 1 applic Documented by: Polyethylene Glycol (Polyethylene Glycol 3350 17 Gm Packet) 17 gm PO BID [facility] Last Admin: 10/04/20 08:39 Dose: Not Given Documented by: Sodium Chloride (0.9% Saline Lock 10 Ml Syringe) 10 - 40 ml IV UD PRN PRN Reason: SALINE FLUSH Last Admin: 10/01/20 09:53 Dose: 10 ml Documented by: STROKE Vital Signs/Narrative: Vital Signs Temp Pulse Resp BP Pulse Ox 10/04/20 08:39 66 152/78 H 10/04/20 08:34 98.0 F 66 18 152/78 H 94 10/04/20 07:23 94 10/04/20 07:00 65 Medical Necessity - Tobacco Use Smoking Status: Former smoker Tobacco Use: Cigarettes Assessment/Plan All Active Problems Debility (Acute) Shortness of breath (Acute) ELENITA (obstructive sleep apnea) (Acute) Morbid obesity with BMI of 50.0-59.9, adult (Acute) Iron deficiency anemia (Acute) Hyperkalemia (Acute) Bradycardia (Acute) Intractable low back pain (Acute) UTI (urinary tract infection) (Acute) Dehydration (Acute) Acute renal failure (Acute) Community acquired pneumonia (Acute) DEBBIE (acute kidney injury) (Acute) Breakthrough seizure (Acute) Acute respiratory failure with hypoxia (Acute) Thrombocytopenia (Acute) 1. Acute hypoxic respiratory failure secondary to acute on chronic diastolic CHF/HTN/HLD/bradycardia -Echo with EF of 55% and severely dilated right ventricle, consistent with cor pulmonale. She likely has a component of ELENITA and will need to follow-up with pulmonology as an outpatient for sleep study -Temporary dialysis line was placed 09/30/2020 and she underwent dialysis, and removed 10/03/2020 -We will cautiously begin to reinitiate her blood pressure medications if needed -We will hold her Norvasc as this can lead to swelling -Continue with statin 2. Post ictal status post seizure -EEG with no seizure-like activity just encephalopathy likely secondary to uremia -We will continue with her Vimpat, and may need to get a neurology consult after the EEG is read, however it could have been secondary to her hypoglycemia 3. IDDM 2/morbid obesity/CKD 4 with uremia and mild metabolic encephalopathy which has resolved -Does not appear that has been following a diet and did not take her on the day of her admission -Blood sugars elevated to 406 on admission -We will place her on her long-acting insulin at 5 units twice daily as well as sliding scale insulin and mealtime insulin. Also put her on an appropriate diet with appropriate calories -Accu-Cheks AC at bedtime -Discussed lifestyle modifications 4. Anxiety/depression -Stable -We will hold off on her trazodone and Lexapro secondary to her disorientation and somnolence 5. Iron deficiency anemia -Hemoglobin is around 9.3, her iron is 35 with a total iron binding capacity of 338 iron saturation of 10.4 normal ferritin -Continue with iron replacement DVT: Heparin Inpatient E&M: 22140 Subs Hosp L2
[2020-10-04] MEDS: Furosemide 40 MG Tablet PO (10:08)
[2020-10-04 10:10] LABS: Bedside Glucose 118 mg/dL (70-110)
[2020-10-04 11:40] LABS: Bedside Glucose 124 mg/dL (70-110)
[2020-10-04] MEDS: Acetaminophen 325 MG Tablet 650 MG PO (15:13)
[2020-10-04] MEDS: 0.9% Saline Lock 10 ML Syringe IV (16:51)
[2020-10-04 17:16] LABS: 24 Hour Urine Protein 3002.4 mg/24HR (<150 MG/24HR); 24HR. UA Prot. Total Volume 800 mL
[2020-10-04 17:31] LABS: Urine Protein (24 Hour) 375.3 mg/dL (<11.9)
[2020-10-04] MEDS: Atorvastatin Calcium 10 MG Tablet PO (21:46)
[2020-10-04 22:06] LABS: Bedside Glucose 132 mg/dL (70-110)
[2020-10-04 22:06] LABS: Bedside Glucose 131 mg/dL (70-110)
[2020-10-05] VITALS (11 sets, daily range): BP systolic 135–158; BP diastolic 56–81; PULSE 61–69; RESP 16–18; TEMP 36.4–36.7; O2SAT 93–99
[2020-10-05] MEDS: Heparin Injection (Vial) 5,000 UNIT/ML VIAL 5000 UNIT SC ×3 (05:39→20:57)
[2020-10-05 05:55] LABS: Absolute Lymphocyte Count 0.78 X10^3/uL (0.83-4.51); Absolute Neutrophil Count 4.9 X10^3/uL (2.0-7.7); Basophil# 0.04 X10^3/uL; Basophil% 0.6 % (0-1); Eosinophils% 1.5 % (0-5); Hematocrit 32.1 % (37-47); Lymphocyte # 0.78 X10^3/ul (4.0); Lymphocyte % 11.9 % (19-41); Mean Corp Hgb Conc 31.2 g/dL (32-36); Mean Corpuscular Hgb 31.6 pg (27.0-32.0); Mean Corpuscular Volume 101.6 fL (81-99); Mean Platelet Vol. 10.3 fl (6.2-12.0); Monocyte# 0.79 X10^3/uL; NRBC Flagged by Analyzer 0 % (0-5); Neutrophil # 4.85 X10^3/uL (2.7-7.7); Neutrophil % 73.7 % (47-70); POSITIVE COUNT YES; Platelet Count 61 K/mm3 (150-450); RBC Distribution Width CV 15.1 % (11.6-14.6); RBC Distribution Width SD 56.5 fl (35.1-43.9); Red Blood Count 3.16 M/mm3 (4.2-5.4); White Blood Count 6.6 K/mm3 (4.4-11.0)
[2020-10-05 06:18] LABS: Albumin, Serum 2.3 g/dL (3.2-5.0); BUN 45 mg/dL (7-18); BUN/Creat Ratio 21.5 RATIO (10-20); Calcium,Total 8.8 mg/dL (8.5-10.1); Chloride 101 mmol/L (98-107); Creatinine, Serum 2.09 mg/dL (0.55-1.02); EST Glomerular Filtration Rate 25 mL/min (>60); Est Glom Filt Rate - Afr Amer 30 mL/min (>60); Estimated Creatinine Clearance 16.96 ml/min; Glucose 145 mg/dL (74-106); Phosphorus 3.7 mg/dL (2.5-4.9); Potassium 4.9 mmol/L (3.5-5.1); Sodium Level 134 mmol/L (136-145)
--- NOTE | 2020-10-05 07:48 | PN_ITS ---
Patient Problems: Active and Suspected Problems Debility (Acute) Shortness of breath (Acute) ELENITA (obstructive sleep apnea) (Acute) Morbid obesity with BMI of 50.0-59.9, adult (Acute) Iron deficiency anemia (Acute) Bradycardia (Acute) UTI (urinary tract infection) (Acute) Dehydration (Acute) Acute renal failure (Acute) DEBBIE (acute kidney injury) (Acute) Breakthrough seizure (Acute) Acute respiratory failure with hypoxia (Acute) Thrombocytopenia (Acute) Objective: No fever or chills. Vitals/I&O's: Vital Signs Temp Pulse Resp BP Pulse Ox 97.6 F L 66 18 141/72 H 94 10/05/20 03:55 10/05/20 07:26 10/05/20 03:55 10/05/20 03:55 10/05/20 03:55 Oxygen Flow Rate (L/min) 1 Oxygen Delivery Method Room Air Weight: 256 lb 6.362 oz Body Mass Index (BMI) 50.8 Finger Stick Blood Glucose 410 Intake and Output for Last 24 Hours 10/03/20 10/04/20 10/05/20 23:59 23:59 23:59 Intake Total 480 / 480 480 / 600 320 / 320 Output Total 1000 / 1000 700 / 700 300 / 300 Balance -520 / -520 -220 / -100 20 / 20 Microbiology Past 72 Hours 10/02/20 19:17 Mucosa - Nose SARS-CoV-2 Antigen (Rapid) - Final Laboratory Results 10/04/20 08:33: POC Glucose 118 H 10/04/20 11:33: POC Glucose 124 H 10/04/20 15:30: Urine Collection Time 24.0, Timed Urine Volume 800, Ur Total Protein 24 Hr 3002.4 H, Urine Total Protein 375.3 H 10/04/20 16:26: POC Glucose 132 H 10/04/20 21:42: POC Glucose 131 H 10/05/20 05:45: Sodium 134 L, Potassium 4.9, Chloride 101, Carbon Dioxide 26.0, BUN 45 H, Creatinine 2.09 H, Estim Creat Clear Calc 16.96, Est GFR (MDRD) Af Amer 30 L, Est GFR (MDRD) Non-Af 25 L, BUN/Creatinine Ratio 21.5 H, Glucose 145 H, Calcium 8.8, Phosphorus 3.7, Albumin 2.3 L 10/05/20 05:45: WBC 6.6, RBC 3.16 L, Hgb 10.0 L, Hct 32.1 L, MCV 101.6 H, MCH 31.6, MCHC 31.2 L, RDW Std Deviation 56.5 H, RDW Coeff of Kus[place] 15.1 H, Plt Count 61 L, MPV 10.3, Immature Gran % (Auto) 0.300, Neut % (Auto) 73.7 H, Lymph % (Auto) 11.9 L, [place] % (Auto) 12.0 H, Eos % (Auto) 1.5, Baso % (Auto) 0.6, Absolute Neuts (auto) 4.9, Absolute Lymphs (auto) 0.78 L, Nucleated RBC % 0 Current Medications Acetaminophen (Acetaminophen 325 Mg Tablet) 650 mg PO Q6H PRN PRN PRN Reason: Pain Score 1-10 Last Admin: 10/04/20 15:13 Dose: 650 mg Documented by: Amlodipine Besylate (Amlodipine 10 Mg Tablet) 10 mg PO DAILY [facility] Last Admin: 10/04/20 08:39 Dose: 10 mg Documented by: Aspirin (Aspirin 81 Mg Tab.Chew) 81 mg PO DAILYCM [facility] Last Admin: 10/04/20 08:38 Dose: 81 mg Documented by: Atorvastatin Calcium (Atorvastatin Calcium 10 Mg Tablet) 10 mg PO QHS [facility] Last Admin: 10/04/20 21:46 Dose: 10 mg Documented by: Dextrose (Dextrose 50%-Water 25 Gm/50 Ml Disp.Syrin) 0 gm IV X1 PRN; Protocol PRN Reason: Hypoglycemia Escitalopram Oxalate (Escitalopram Oxalate 10 Mg Tablet) 10 mg PO DAILY [facility] Last Admin: 10/04/20 08:39 Dose: 10 mg Documented by: Ferrous Sulfate (Ferrous Sulfate 325 Mg Tablet) 325 mg PO 1200,1700 [facility] Last Admin: 10/04/20 16:27 Dose: 325 mg Documented by: Glucagon (Glucagon 1 Mg/Ml Syringe) 1 mg IM .X1 PRN PRN Reason: Hypoglycemia Heparin Sodium (Porcine) (Heparin Injection (Vial) 5,000 Unit/Ml Vial) 5,000 unit SC Q8 [facility] Last Admin: 10/05/20 05:39 Dose: 5,000 unit Documented by: Sodium Chloride () 250 mls @ 15 mls/hr IV .[id number] PRN PRN Reason: Saline Flush Last Infusion: 10/02/20 07:36 Dose: Infused Documented by: Sodium Chloride () 250 mls @ 15 mls/hr IV .[id number] PRN PRN Reason: Additional IVPB Infusion Insulin Glargine (Insulin Glargine 100 Units/Ml Pen) 5 units SC BREAKFAST [facility] Last Admin: 10/04/20 08:36 Dose: 5 u Documented by: Insulin Glargine (Insulin Glargine 100 Units/Ml Pen) 5 units SC QHS [facility] Last Admin: 10/04/20 21:45 Dose: Not Given Documented by: Insulin Human Lispro (Insulin Lispro 100 Unit/Ml Insuln.Pen) 0 unit SC ACHS [facility]; Protocol Last Admin: 10/04/20 21:43 Dose: Not Given Documented by: Insulin Human Lispro (Insulin Lispro 100 Unit/Ml Insuln.Pen) 5 unit SC BREAKFAST [facility] Last Admin: 10/04/20 08:37 Dose: 5 unit Documented by: Insulin Human Lispro (Insulin Lispro 100 Unit/Ml Insuln.Pen) 5 unit SC DINNER [facility] Last Admin: 10/04/20 16:27 Dose: 5 u Documented by: Insulin Human Lispro (Insulin Lispro 100 Unit/Ml Insuln.Pen) 5 unit SC LUNCH [facility] Last Admin: 10/04/20 11:53 Dose: 5 u Documented by: Lacosamide (Lacosamide 100 Mg Tablet) 100 mg PO DAILY [facility] Last Admin: 10/04/20 09:28 Dose: 100 mg Documented by: Metoprolol Succinate (Metoprolol(Xl)Succ 25 Mg Tablet) 75 mg PO DAILY [facility] Last Admin: 10/04/20 08:39 Dose: 75 mg Documented by: Nystatin (Nystatin Powder 15gm Bottle) 1 applic TOPICAL TID [facility]; Protocol Last Admin: 10/05/20 05:43 Dose: Not Given Documented by: Polyethylene Glycol (Polyethylene Glycol 3350 17 Gm Packet) 17 gm PO BID [facility] Last Admin: 10/04/20 21:46 Dose: Not Given Documented by: Sodium Chloride (0.9% Saline Lock 10 Ml Syringe) 10 - 40 ml IV UD PRN PRN Reason: SALINE FLUSH Last Admin: 10/04/20 16:51 Dose: 10 ml Documented by: STROKE Vital Signs/Narrative: Vital Signs Temp Pulse Resp BP Pulse Ox 10/05/20 07:26 66 10/05/20 03:55 97.6 F L 65 18 141/72 H 94 Medical Necessity - Tobacco Use Smoking Status: Former smoker Tobacco Use: Cigarettes Assessment/Plan All Active Problems Debility (Acute) Shortness of breath (Acute) ELENITA (obstructive sleep apnea) (Acute) Morbid obesity with BMI of 50.0-59.9, adult (Acute) Iron deficiency anemia (Acute) Hyperkalemia (Acute) Bradycardia (Acute) Intractable low back pain (Acute) UTI (urinary tract infection) (Acute) Dehydration (Acute) Acute renal failure (Acute) Community acquired pneumonia (Acute) DEBBIE (acute kidney injury) (Acute) Breakthrough seizure (Acute) Acute respiratory failure with hypoxia (Acute) Thrombocytopenia (Acute) 1. Acute hypoxic respiratory failure secondary to acute on chronic diastolic CHF/HTN/HLD/bradycardia -Echo with EF of 55% and severely dilated right ventricle, consistent with cor pulmonale. She likely has a component of ELENITA and will need to follow-up with pulmonology as an outpatient for sleep study -Temporary dialysis line was placed 09/30/2020 and she underwent dialysis, and removed 10/03/2020 -We will cautiously begin to reinitiate her blood pressure medications if needed -We will hold her Norvasc as this can lead to swelling -Continue with statin 2. Post ictal status post seizure -EEG with no seizure-like activity just encephalopathy likely secondary to uremia -We will continue with her Vimpat, and may need to get a neurology consult after the EEG is read, however it could have been secondary to her hypoglycemia 3. IDDM 2/morbid obesity/CKD 4 with uremia and mild metabolic encephalopathy which has resolved -Does not appear that has been following a diet and did not take her on the day of her admission -Blood sugars elevated to 406 on admission -We will place her on her long-acting insulin at 5 units twice daily as well as sliding scale insulin and mealtime insulin. Also put her on an appropriate diet with appropriate calories -Accu-Cheks AC at bedtime -Discussed lifestyle modifications 4. Anxiety/depression -Stable -We will hold off on her trazodone and Lexapro secondary to her disorientation and somnolence 5. Iron deficiency anemia -Hemoglobin is around 9.3, her iron is 35 with a total iron binding capacity of 338 iron saturation of 10.4 normal ferritin -Continue with iron replacement
[2020-10-05] MEDS: Insulin Lispro 100 UNIT/ML INSULN.PEN SC ×6 (09:54→17:45)
[2020-10-05] MEDS: Aspirin 81 MG TAB.CHEW PO (09:56)
[2020-10-05] MEDS: Metoprolol(XL)Succ 25 MG Tablet 75 MG PO (10:01)
[2020-10-05] MEDS: Escitalopram Oxalate 10 MG Tablet PO (10:01)
[2020-10-05] MEDS: amLODIPine 10 MG Tablet PO (10:01)
[2020-10-05 10:36] LABS: Bedside Glucose 177 mg/dL (70-110)
--- NOTE | 2020-10-05 11:05 | CASEMGMT ---
SW met with patient and her daughter. Introduced self and role at [facility]. SW asked if they have decided on a facility for patient. Patient's daughter gave SW the list with choices 1,2, and 3. Their first choice is [facility] ([facility]). SW told them SW will fax the referral and get back to them as soon as SW hears back. Patient's daughter also asked about patient completing a Healthcare Power of Public [employer]. SW spoke with patient about this and she was in agreement. Patient confirmed she wants her daughter listed as her Healthcare POA and her son second. Completed documents with patient. Copies were made and given to patient along with originals. A copy was also placed in patient's chart. SW called [facility] and left a message regarding referral. SW also faxed referral. Await response. Katelynn ANDRADE
[2020-10-05 11:18] LABS: Creat.Clear Total Volume 800 mL; Creatinine Clearance 21 ml/min (100-200); Creatinine Serum Creat 2.1 mg/dL (0.6-1.0); EST Glomerular Filtration Rate 25 mL/min (>60); Est Glom Filt Rate - Afr Amer 30 mL/min (>60)
--- NOTE | 2020-10-05 11:34 | PN.RENAL_ITS ---
Patient Problems: Active and Suspected Problems Debility (Acute) Shortness of breath (Acute) ELENITA (obstructive sleep apnea) (Acute) Morbid obesity with BMI of 50.0-59.9, adult (Acute) Iron deficiency anemia (Acute) Bradycardia (Acute) UTI (urinary tract infection) (Acute) Dehydration (Acute) Acute renal failure (Acute) DEBBIE (acute kidney injury) (Acute) Breakthrough seizure (Acute) Acute respiratory failure with hypoxia (Acute) Thrombocytopenia (Acute) Subjective: complains of a headache, edema in legs to breast. Resume lasix twice a day. 24h urine crcl 21cc/min placing her at stage 4 CKD. no chronic dialysis as this time. Will get vein mapping for AV fistula/graft access. - Physical Exam Vitals/I&O's: Vital Signs Temp Pulse Resp BP Pulse Ox 98.1 F 69 16 145/56 H 95 10/05/20 09:16 10/05/20 10:34 10/05/20 09:16 10/05/20 09:16 10/05/20 09:23 Oxygen Flow Rate (L/min) 1 Oxygen Delivery Method Room Air Weight: 116.3 kg Body Mass Index (BMI) 50.8 Finger Stick Blood Glucose 410 Intake and Output for Last 24 Hours 10/03/20 10/04/20 10/05/20 23:59 23:59 23:59 Intake Total 480 / 480 480 / 600 320 / 320 Output Total 1000 / 1000 700 / 700 300 / 300 Balance -520 / -520 -220 / -100 20 20 General: - - poor historian, in and out of somnolence Lungs: Diminished Cardiovascular: Regular rate Abdomen: Bowel Sounds Present, Soft, Non Tender, Non-Distended Extremities: Edema - anasarca Psych/Mental Status: Alert and oriented to time, place, person, mood and affect Microbiology Past 72 Hours 10/02/20 19:17 Mucosa - Nose SARS-CoV-2 Antigen (Rapid) - Final Laboratory Results 10/04/20 11:33: POC Glucose 124 H 10/04/20 15:30: Urine Collection Time 24.0, Timed Urine Volume 800, Ur Total Protein 24 Hr 3002.4 H, Urine Total Protein 375.3 H 10/04/20 15:30: Creatinine 2.1 H, Est GFR (MDRD) Af Amer 30 L, Est GFR (MDRD) Non-Af 25 L, Urine Collection Time 24.0, Timed Urine Volume 800, Urine Creatinine 79.0, Creatinine Clearance 21 L 10/04/20 16:26: POC Glucose 132 H 10/04/20 21:42: POC Glucose 131 H 10/05/20 05:45: Sodium 134 L, Potassium 4.9, Chloride 101, Carbon Dioxide 26.0, BUN 45 H, Creatinine 2.09 H, Estim Creat Clear Calc 16.96, Est GFR (MDRD) Af Amer 30 L, Est GFR (MDRD) Non-Af 25 L, BUN/Creatinine Ratio 21.5 H, Glucose 145 H, Calcium 8.8, Phosphorus 3.7, Albumin 2.3 L 10/05/20 05:45: WBC 6.6, RBC 3.16 L, Hgb 10.0 L, Hct 32.1 L, MCV 101.6 H, MCH 31.6, MCHC 31.2 L, RDW Std Deviation 56.5 H, RDW Coeff of [place] 15.1 H, Plt Count 61 L, MPV 10.3, Immature Gran % (Auto) 0.300, Neut % (Auto) 73.7 H, Lymph % (Auto) 11.9 L, [place] % (Auto) 12.0 H, Eos % (Auto) 1.5, Baso % (Auto) 0.6, Absolute Neuts (auto) 4.9, Absolute Lymphs (auto) 0.78 L, Nucleated RBC % 0 10/05/20 09:01: POC Glucose 177 H Current Medications Acetaminophen (Acetaminophen 325 Mg Tablet) 650 mg PO Q6H PRN PRN PRN Reason: Pain Score 1-10 Last Admin: 10/04/20 15:13 Dose: 650 mg Documented by: Amlodipine Besylate (Amlodipine 10 Mg Tablet) 10 mg PO DAILY [facility] Last Admin: 10/05/20 10:01 Dose: 10 mg Documented by: Aspirin ([facility] 81 Mg [facility].Chew) [facility] Admin: 10/05/20 09:56 Dose: 81 mg Documented by: Atorvastatin Calcium (Atorvastatin Calcium 10 Mg Tablet) 10 mg PO QHS [facility] Last Admin: 10/04/20 21:46 Dose: 10 mg Documented by: Dextrose (Dextrose 50%-Water 25 Gm/50 Ml Disp.Syrin) 0 gm IV X1 PRN; Protocol PRN Reason: Hypoglycemia Escitalopram Oxalate (Escitalopram Oxalate 10 Mg Tablet) 10 mg PO DAILY [facility] Last Admin: 10/05/20 10:01 Dose: 10 mg Documented by: Ferrous Sulfate (Ferrous Sulfate 325 Mg Tablet) 325 mg PO 1200,1700 [facility] Last Admin: 10/04/20 16:27 Dose: 325 mg Documented by: Glucagon (Glucagon 1 Mg/Ml Syringe) 1 mg IM .X1 PRN PRN Reason: Hypoglycemia Heparin Sodium (Porcine) (Heparin Injection (Vial) 5,000 Unit/Ml Vial) 5,000 unit SC Q8 [facility] Last Admin: 10/05/20 05:39 Dose: 5,000 unit Documented by: Sodium Chloride () 250 mls @ 15 mls/hr IV .[id number] PRN PRN Reason: Saline Flush Last Infusion: 10/02/20 07:36 Dose: Infused Documented by: Sodium Chloride () 250 mls @ 15 mls/hr IV .[id number] PRN PRN Reason: Additional IVPB Infusion Insulin Glargine (Insulin Glargine 100 Units/Ml Pen) 5 units SC BREAKFAST [facility] Last Admin: 10/05/20 09:56 Dose: 5 u Documented by: Insulin Glargine (Insulin Glargine 100 Units/Ml Pen) 5 units SC QHS [facility] Last Admin: 10/04/20 21:45 Dose: Not Given Documented by: Insulin Human Lispro (Insulin Lispro 100 Unit/Ml Insuln.Pen) 0 unit SC ACHS [facility]; Protocol Last Admin: 10/05/20 09:54 Dose: 2 u Documented by: Insulin Human Lispro (Insulin Lispro 100 Unit/Ml Insuln.Pen) 5 unit SC BREAKFAST [facility] Last Admin: 10/05/20 09:54 Dose: 5 unit Documented by: Insulin Human Lispro (Insulin Lispro 100 Unit/Ml Insuln.Pen) 5 unit SC DINNER [facility] Last Admin: 10/04/20 16:27 Dose: 5 u Documented by: Insulin Human Lispro (Insulin Lispro 100 Unit/Ml Insuln.Pen) 5 unit SC LUNCH [facility] Last Admin: 10/04/20 11:53 Dose: 5 u Documented by: Lacosamide (Lacosamide 100 Mg Tablet) 100 mg PO DAILY [facility] Last Admin: 10/04/20 09:28 Dose: 100 mg Documented by: Metoprolol Succinate (Metoprolol(Xl)Succ 25 Mg Tablet) 75 mg PO DAILY [facility] Last Admin: 10/05/20 10:01 Dose: 75 mg Documented by: Nystatin (Nystatin Powder 15gm Bottle) 1 applic TOPICAL TID [facility]; Protocol Last Admin: 10/05/20 05:43 Dose: Not Given Documented by: Polyethylene Glycol (Polyethylene Glycol 3350 17 Gm Packet) 17 gm PO BID [facility] Last Admin: 10/05/20 09:47 Dose: Not Given Documented by: Sodium Chloride (0.9% Saline Lock 10 Ml Syringe) 10 - 40 ml IV UD PRN PRN Reason: SALINE FLUSH Last Admin: 10/04/20 16:51 Dose: 10 ml Documented by: Medical Necessity - Tobacco Use Smoking Status: Former smoker Tobacco Use: Cigarettes Assessment/Plan All Active Problems Debility (Acute) Shortness of breath (Acute) ELENITA (obstructive sleep apnea) (Acute) Morbid obesity with BMI of 50.0-59.9, adult (Acute) Iron deficiency anemia (Acute) Hyperkalemia (Acute) Bradycardia (Acute) Intractable low back pain (Acute) UTI (urinary tract infection) (Acute) Dehydration (Acute) Acute renal failure (Acute) Community acquired pneumonia (Acute) DEBBIE (acute kidney injury) (Acute) Breakthrough seizure (Acute) Acute respiratory failure with hypoxia (Acute) Thrombocytopenia (Acute) 1. Acute on CKD Stage 4 due to ATN underlying diabetic nephropathy. 24h urine CRCL 21cc/min with serum Creatinine stable at 2.0, total protein 3g. 2. iron def anemia hgb stable, continue oral iron 3. Diastolic HF lasix daily to bid for edema 4. Seizure activity on vimpat EEG pending 5. DM type 2 with nephropathy, nephropathy DW nursing, hospitalist, pt dtr at bedside, [facility].
--- NOTE | 2020-10-05 12:14 | PCM.PN.HOSP ---
<Alfred Liang - Last Filed: 10/05/20 12:14> Patient Problems: Active and Suspected Problems Debility (Acute) Shortness of breath (Acute) ELENITA (obstructive sleep apnea) (Acute) Morbid obesity with BMI of 50.0-59.9, adult (Acute) Iron deficiency anemia (Acute) Bradycardia (Acute) UTI (urinary tract infection) (Acute) Dehydration (Acute) Acute renal failure (Acute) DEBBIE (acute kidney injury) (Acute) Breakthrough seizure (Acute) Acute respiratory failure with hypoxia (Acute) Thrombocytopenia (Acute) Subjective: Patient is a 74-year-old female lying in bed, alert and oriented x1. Patient appears in acute distress as she is breathing hard and is responsive however cannot always work-up the strength answer questions. Daughter at bedside and is concerned about mother's ability to make decisions for self, would like to speak to social services manager in regards to signing medical POA paperwork. Objective: Clinical Impression(s) from Imaging Studies Brain CT 09/29/20 13:28 IMPRESSION: Chronic involutional changes of the brain. Electronically Signed: Baljeet Chen MD at 14:05 EDT , Service support , Chest X-Ray 09/29/20 14:20 IMPRESSION: Findings in keeping with a mild degree of CHF and bibasilar atelectasis. Electronically Signed: Baljeet Chen MD at 15:01 EDT , Service support , Echocardiogram 09/29/20 16:49 Interpretation Summary The study was technically difficult. Left ventricular systolic function is normal. The estimated ejection fraction is 55 %. Severely dilated right ventricle. Moderate global right ventricular systolic dysfunction. Mild (1+) eccentric mitral valve insufficiency. Poor coaptation of the tricuspid valve apparatus. Moderately severe (3+) tricuspid valve insufficiency. Calcified aortic root. Unable to estimate RV systolic pressure due to insufficient tricuspid regurgitant envelope. No evidence for diastolic dysfunction. Ordering Physician: Lazaro Lee Referring Physician: Bailey Toribio Performed By: Rosemary Sanchez RDCS Chest X-Ray 09/30/20 17:00 IMPRESSION: Basilar atelectasis/infiltrates bilaterally. Electronically Signed: Tao Simpson DO at 18:41 EDT Tel [phone], Service support , Vitals/I&O's: Vital Signs Temp Pulse Resp BP Pulse Ox 98.1 F 69 16 145/56 H 95 10/05/20 09:16 10/05/20 10:34 10/05/20 09:16 10/05/20 09:16 10/05/20 09:23 Oxygen Flow Rate (L/min) 1 Oxygen Delivery Method Room Air Weight: 256 lb 6.362 oz Body Mass Index (BMI) 50.8 Finger Stick Blood Glucose 410 Intake and Output for Last 24 Hours 10/03/20 10/04/20 10/05/20 23:59 23:59 23:59 Intake Total 480 / 480 480 / 600 320 / 320 Output Total 1000 / 1000 700 / 700 300 / 300 Balance -520 / -520 -220 / -100 20 / 20 General: Alert, Oriented x3, Cooperative HEENT: Atraumatic, PERRLA, EOMI, Normocephalic Neck: Supple, No JVD Lungs: Short of Breath, Tachypneic Cardiovascular: Regular rate, No murmurs Abdomen: Obese, Tender - Tenderness about the left lower quadrant, - - Bruising evident along the left lower quadrant most likely due to edematous swelling Extremities: Diminished Peripheral Pulses, Edema Skin: No rashes, No breakdown, - - Bruising about the left lower quadrant of the abdomen, most likely due to edematous swelling Musculoskeletal: No Tenderness to Palpation of Joints or Extremities Neurological: Cranial nerves II-XII grossly intact Psych/Mental Status: Normal Affect, Appropriate Microbiology Past 72 Hours 10/02/20 19:17 Mucosa - Nose SARS-CoV-2 Antigen (Rapid) - Final Laboratory Results 10/04/20 15:30: Urine Collection Time 24.0, Timed Urine Volume 800, Ur Total Protein 24 Hr 3002.4 H, Urine Total Protein 375.3 H 10/04/20 15:30: Creatinine 2.1 H, Est GFR (MDRD) Af Amer 30 L, Est GFR (MDRD) Non-Af 25 L, Urine Collection Time 24.0, Timed Urine Volume 800, Urine Creatinine 79.0, Creatinine Clearance 21 L 10/04/20 16:26: POC Glucose 132 H 10/04/20 21:42: POC Glucose 131 H 10/05/20 05:45: Sodium 134 L, Potassium 4.9, Chloride 101, Carbon Dioxide 26.0, BUN 45 H, Creatinine 2.09 H, Estim Creat Clear Calc 16.96, Est GFR (MDRD) Af Amer 30 L, Est GFR (MDRD) Non-Af 25 L, BUN/Creatinine Ratio 21.5 H, Glucose 145 H, Calcium 8.8, Phosphorus 3.7, Albumin 2.3 L 10/05/20 05:45: WBC 6.6, RBC 3.16 L, Hgb 10.0 L, Hct 32.1 L, MCV 101.6 H, MCH 31.6, MCHC 31.2 L, RDW Std Deviation 56.5 H, RDW Coeff of Kusum 15.1 H, Plt Count 61 L, MPV 10.3, Immature Gran % (Auto) 0.300, Neut % (Auto) 73.7 H, Lymph % (Auto) 11.9 L, Dixon % (Auto) 12.0 H, Eos % (Auto) 1.5, Baso % (Auto) 0.6, Absolute Neuts (auto) 4.9, Absolute Lymphs (auto) 0.78 L, Nucleated RBC % 0 10/05/20 09:01: POC Glucose 177 H Current Medications Acetaminophen (Acetaminophen 325 Mg Tablet) 650 mg PO Q6H PRN PRN PRN Reason: Pain Score 1-10 Last Admin: 10/04/20 15:13 Dose: 650 mg Documented by: Amlodipine Besylate (Amlodipine 10 Mg Tablet) 10 mg PO DAILY [facility] Last Admin: 10/05/20 10:01 Dose: 10 mg Documented by: Aspirin (Aspirin 81 Mg Tab.Chew) 81 mg PO DAILYCM [facility] Last Admin: 10/05/20 09:56 Dose: 81 mg Documented by: Atorvastatin Calcium (Atorvastatin Calcium 10 Mg Tablet) 10 mg PO QHS [facility] Last Admin: 10/04/20 21:46 Dose: 10 mg Documented by: Dextrose (Dextrose 50%-Water 25 Gm/50 Ml Disp.Syrin) 0 gm IV X1 PRN; Protocol PRN Reason: Hypoglycemia Escitalopram Oxalate (Escitalopram Oxalate 10 Mg Tablet) 10 mg PO DAILY [facility] Last Admin: 10/05/20 10:01 Dose: 10 mg Documented by: Ferrous Sulfate (Ferrous Sulfate 325 Mg Tablet) 325 mg PO 1200,1700 [facility] Last Admin: 10/04/20 16:27 Dose: 325 mg Documented by: Furosemide (Furosemide 40 Mg Tablet) 40 mg PO BID@1000,1800 [facility] Glucagon (Glucagon 1 Mg/Ml Syringe) 1 mg IM .X1 PRN PRN Reason: Hypoglycemia Heparin Sodium (Porcine) (Heparin Injection (Vial) 5,000 Unit/Ml Vial) 5,000 unit SC Q8 [facility] Last Admin: 10/05/20 05:39 Dose: 5,000 unit Documented by: Sodium Chloride () 250 mls @ 15 mls/hr IV .[id number] PRN PRN Reason: Saline Flush Last Infusion: 10/02/20 07:36 Dose: Infused Documented by: Sodium Chloride () 250 mls @ 15 mls/hr IV .[id number] PRN PRN Reason: Additional IVPB Infusion Insulin Glargine (Insulin Glargine 100 Units/Ml Pen) 5 units SC BREAKFAST [facility] Last Admin: 10/05/20 09:56 Dose: 5 u Documented by: Insulin Glargine (Insulin Glargine 100 Units/Ml Pen) 5 units SC QHS [facility] Last Admin: 10/04/20 21:45 Dose: Not Given Documented by: Insulin Human Lispro (Insulin Lispro 100 Unit/Ml Insuln.Pen) 0 unit SC ACHS [facility]; Protocol Last Admin: 10/05/20 09:54 Dose: 2 u Documented by: Insulin Human Lispro (Insulin Lispro 100 Unit/Ml Insuln.Pen) 5 unit SC BREAKFAST [facility] Last Admin: 10/05/20 09:54 Dose: 5 unit Documented by: Insulin Human Lispro (Insulin Lispro 100 Unit/Ml Insuln.Pen) 5 unit SC DINNER [facility] Last Admin: 10/04/20 16:27 Dose: 5 u Documented by: Insulin Human Lispro (Insulin Lispro 100 Unit/Ml Insuln.Pen) 5 unit SC LUNCH [facility] Last Admin: 10/04/20 11:53 Dose: 5 u Documented by: Lacosamide (Lacosamide 100 Mg Tablet) 100 mg PO DAILY [facility] Last Admin: 10/04/20 09:28 Dose: 100 mg Documented by: Metoprolol Succinate (Metoprolol(Xl)Succ 25 Mg Tablet) 75 mg PO DAILY [facility] Last Admin: 10/05/20 10:01 Dose: 75 mg Documented by: Nystatin (Nystatin Powder 15gm Bottle) 1 applic TOPICAL TID [facility]; Protocol Last Admin: 10/05/20 05:43 Dose: Not Given Documented by: Polyethylene Glycol (Polyethylene Glycol 3350 17 Gm Packet) 17 gm PO BID [facility] Last Admin: 10/05/20 09:47 Dose: Not Given Documented by: Sodium Chloride (0.9% Saline Lock 10 Ml Syringe) 10 - 40 ml IV UD PRN PRN Reason: SALINE FLUSH Last Admin: 10/04/20 16:51 Dose: 10 ml Documented by: STROKE Vital Signs/Narrative: Vital Signs Temp Pulse Resp BP Pulse Ox 10/05/20 10:34 69 10/05/20 10:01 68 10/05/20 09:23 95 10/05/20 09:16 98.1 F 68 16 145/56 H 93 Medical Necessity - Tobacco Use Smoking Status: Former smoker Tobacco Use: Cigarettes Assessment/Plan All Active Problems Debility (Acute) Shortness of breath (Acute) ELENITA (obstructive sleep apnea) (Acute) Morbid obesity with BMI of 50.0-59.9, adult (Acute) Iron deficiency anemia (Acute) Hyperkalemia (Acute) Bradycardia (Acute) Intractable low back pain (Acute) UTI (urinary tract infection) (Acute) Dehydration (Acute) Acute renal failure (Acute) Community acquired pneumonia (Acute) DEBBIE (acute kidney injury) (Acute) Breakthrough seizure (Acute) Acute respiratory failure with hypoxia (Acute) Thrombocytopenia (Acute) Patient is a 74-year-old female who who was admitted on 09/29/2020 for hypoxic respiratory failure secondary to acute on chronic diastolic CHF, status post seizure and CKD stage IV. Today patient was lying in bed and appeared short of breath and was only able to answer some questions. Daughter was at bedside and was concerned about mother's ability to make decisions for herself. Daughter would like to talk to social work while mother can still respond and assign a medical POA. Nephrology would like to resume Lasix twice a day as well as get vein mapping for possible AV fistula/graft access. 1) acute hypoxic respiratory failure secondary to acute on chronic diastolic CHF Assessment - Echo with a EF of 55% and severely dilated right ventricle, suggestive of cor pulmonale - Norvasc continued, BP stable - Current weight 256, down 6 pounds from admission Plan - Resume Lasix 40 mg p.o. twice daily - Monitor I's/O's and daily weights - Continue with statin - Fluid restricted diet initiated 2) Post ictal S/P seizure Assessment - The ED demonstrates no seizure-like activity - Considering encephalopathy secondary to uremia or hypoglycemia Plan -Continue Vimpat 3) DM2/Morbid obesity Assessment - Blood sugar 177 - Elevated blood sugar at admission at 406 Plan - Continue on long-acting insulin at 5 units twice daily as well as sliding scale insulin and mealtime insulin - Continue Accu-Cheks at bedtime - Lifestyle modifications previously discussed - Calorie restricted diet initiated 4) CKD 4 Assessment - Creatinine clearance 16.96 - Estimated GFR 25 - No chronic dialysis at this time per nephrology Plan - Vein mapping for AV fistula/graft access ordered by nephrology - Resume Lasix 40 mg p.o. twice daily 5) Iron Deficiency anemia Assessment - Hemoglobin 10 - Iron 35 - TIBC 338 - Iron saturation 10.4 Plan -Continue with iron replacement DVT Prophylaxis -SC heparin Patient seen by Alfred Liang PA-C, under the supervision of Dr. Blanton. <Osman Blanton - Last Filed: 10/05/20 13:27> Reason for Visit: Follow-up for CKD stage IV, CHF and acute hypoxic respiratory failure Objective: Physical exam General: Awake but lethargic. Dyspnea at rest. HEENT: Atraumatic, PERRLA, EOMI, Normocephalic Oral: No Gingival or Mucosal Lesions/ Ulcerations Neck: Supple, No JVD, Negative Carotid Bruits Lungs: Air entry diminished in bilateral lung bases. Bibasilar coarse crepitation. Cardiovascular: Regular rate, Regular Rhythm, Normal S1, Normal S2, systolic murmur over LLSB Abdomen: Bowel Sounds Present, Soft, Non Tender, Non-Distended : No renal angle tenderness. No suprapubic tenderness. Extremities: Bilateral leg edema, Capillary Refill Less than 3 Seconds Skin: No rashes, No breakdown Musculoskeletal: Mild tenderness in the legs. Neurological: Cranial nerves II-XII grossly intact, Deep Tendon Reflexes 2+/4 and Symmetrical, Neuro grossly intact Psych/Mental Status: Lethargic. Vitals/I&O's: Vital Signs Temp Pulse Resp BP Pulse Ox 98.1 F 69 16 145/56 H 95 10/05/20 09:16 10/05/20 10:34 10/05/20 09:16 10/05/20 09:16 10/05/20 09:23 Oxygen Flow Rate (L/min) 1 Oxygen Delivery Method Room Air Weight: 256 lb 6.362 oz Body Mass Index (BMI) 50.8 Finger Stick Blood Glucose 410 Intake and Output for Last 24 Hours 10/03/20 10/04/20 10/05/20 23:59 23:59 23:59 Intake Total 480 / 480 480 / 600 440 / 440 Output Total 1000 / 1000 700 / 700 650 / 650 Balance -520 / -520 -220 / -100 -210 / -210 Microbiology Past 72 Hours 10/02/20 19:17 Mucosa - Nose SARS-CoV-2 Antigen (Rapid) - Final Laboratory Results 10/04/20 15:30: Urine Collection Time 24.0, Timed Urine Volume 800, Ur Total Protein 24 Hr 3002.4 H, Urine Total Protein 375.3 H 10/04/20 15:30: Creatinine 2.1 H, Est GFR (MDRD) Af Amer 30 L, Est GFR (MDRD) Non-Af 25 L, Urine Collection Time 24.0, Timed Urine Volume 800, Urine Creatinine 79.0, Creatinine Clearance 21 L 10/04/20 16:26: POC Glucose 132 H 10/04/20 21:42: POC Glucose 131 H 10/05/20 05:45: Sodium 134 L, Potassium 4.9, Chloride 101, Carbon Dioxide 26.0, BUN 45 H, Creatinine 2.09 H, Estim Creat Clear Calc 16.96, Est GFR (MDRD) Af Amer 30 L, Est GFR (MDRD) Non-Af 25 L, BUN/Creatinine Ratio 21.5 H, Glucose 145 H, Calcium 8.8, Phosphorus 3.7, Albumin 2.3 L 10/05/20 05:45: WBC 6.6, RBC 3.16 L, Hgb 10.0 L, Hct 32.1 L, MCV 101.6 H, MCH 31.6, MCHC 31.2 L, RDW Std Deviation 56.5 H, RDW Coeff of Kusum 15.1 H, Plt Count 61 L, MPV 10.3, Immature Gran % (Auto) 0.300, Neut % (Auto) 73.7 H, Lymph % (Auto) 11.9 L, Dixon % (Auto) 12.0 H, Eos % (Auto) 1.5, Baso % (Auto) 0.6, Absolute Neuts (auto) 4.9, Absolute Lymphs (auto) 0.78 L, Nucleated RBC % 0 10/05/20 09:01: POC Glucose 177 H 10/05/20 12:50: POC Glucose 170 H Current Medications Acetaminophen (Acetaminophen 325 Mg Tablet) 650 mg PO Q6H PRN PRN PRN Reason: Pain Score 1-10 Last Admin: 10/04/20 15:13 Dose: 650 mg Documented by: Amlodipine Besylate (Amlodipine 10 Mg Tablet) 10 mg PO DAILY [facility] Last Admin: 10/05/20 10:01 Dose: 10 mg Documented by: Aspirin (A[facility]in 81 Mg [facility].Chew) [facility] Last Admin: 10/05/20 09:56 Dose: 81 mg Documented by: Atorvastatin Calcium (Atorvastatin Calcium 10 Mg Tablet) 10 mg PO QHS [facility] Last Admin: 10/04/20 21:46 Dose: 10 mg Documented by: Dextrose (Dextrose 50%-Water 25 Gm/50 Ml Disp.Syrin) 0 gm IV X1 PRN; Protocol PRN Reason: Hypoglycemia Escitalopram Oxalate (Escitalopram Oxalate 10 Mg Tablet) 10 mg PO DAILY [facility] Last Admin: 10/05/20 10:01 Dose: 10 mg Documented by: Ferrous Sulfate (Ferrous Sulfate 325 Mg Tablet) 325 mg PO 1200,1700 [facility] Last Admin: 10/05/20 12:57 Dose: 325 mg Documented by: Furosemide (Furosemide 40 Mg Tablet) 40 mg PO BID@1000,1800 [facility] Last Admin: 10/05/20 13:04 Dose: 40 mg Documented by: Glucagon (Glucagon 1 Mg/Ml Syringe) 1 mg IM .X1 PRN PRN Reason: Hypoglycemia Heparin Sodium (Porcine) (Heparin Injection (Vial) 5,000 Unit/Ml Vial) 5,000 unit SC Q8 [facility] Last Admin: 10/05/20 05:39 Dose: 5,000 unit Documented by: Sodium Chloride () 250 mls @ 15 mls/hr IV .[id number] PRN PRN Reason: Saline Flush Last Infusion: 10/02/20 07:36 Dose: Infused Documented by: Sodium Chloride () 250 mls @ 15 mls/hr IV .[id number] PRN PRN Reason: Additional IVPB Infusion Insulin Glargine (Insulin Glargine 100 Units/Ml Pen) 5 units SC BREAKFAST [facility] Last Admin: 10/05/20 09:56 Dose: 5 u Documented by: Insulin Glargine (Insulin Glargine 100 Units/Ml Pen) 5 units SC QHS [facility] Last Admin: 10/04/20 21:45 Dose: Not Given Documented by: Insulin Human Lispro (Insulin Lispro 100 Unit/Ml Insuln.Pen) 0 unit SC ACHS [facility]; Protocol Last Admin: 10/05/20 12:55 Dose: 2 u Documented by: Insulin Human Lispro (Insulin Lispro 100 Unit/Ml Insuln.Pen) 5 unit SC BREAKFAST [facility] Last Admin: 10/05/20 09:54 Dose: 5 unit Documented by: Insulin Human Lispro (Insulin Lispro 100 Unit/Ml Insuln.Pen) 5 unit SC DINNER [facility] Last Admin: 10/04/20 16:27 Dose: 5 u Documented by: Insulin Human Lispro (Insulin Lispro 100 Unit/Ml Insuln.Pen) 5 unit SC LUNCH [facility] Last Admin: 10/05/20 12:55 Dose: 5 u Documented by: Lacosamide (Lacosamide 100 Mg Tablet) 100 mg PO DAILY [facility] Last Admin: 10/05/20 13:04 Dose: 100 mg Documented by: Metoprolol Succinate (Metoprolol(Xl)Succ 25 Mg Tablet) 75 mg PO DAILY [facility] Last Admin: 10/05/20 10:01 Dose: 75 mg Documented by: Nystatin (Nystatin Powder 15gm Bottle) 1 applic TOPICAL TID [facility]; Protocol Last Admin: 10/05/20 05:43 Dose: Not Given Documented by: Polyethylene Glycol (Polyethylene Glycol 3350 17 Gm Packet) 17 gm PO BID [facility] Last Admin: 10/05/20 09:47 Dose: Not Given Documented by: Sodium Chloride (0.9% Saline Lock 10 Ml Syringe) 10 - 40 ml IV UD PRN PRN Reason: SALINE FLUSH Last Admin: 10/04/20 16:51 Dose: 10 ml Documented by: STROKE Vital Signs/Narrative: Vital Signs Temp Pulse Resp BP Pulse Ox 10/05/20 10:34 69 10/05/20 10:01 68 10/05/20 09:23 95 10/05/20 09:16 98.1 F 68 16 145/56 H 93 Assessment/Plan This patient was seen in conjunction with YUMIKO Shah. I have independently interviewed and examined the patient and reviewed pertinent history, examination findings, laboratory and plan of management. I have reviewed the note and agree with the documented findings with the few additional points. In brief, patient is admitted for acute hypoxic respiratory failure secondary to acute on chronic diastolic heart failure and right ventricular failure. 2D echo was done shows EF 55% with severely dilated RV consistent with cor pulmonale. Patient has history of obstructive sleep apnea and needs formal sleep study. CKD stage IV with uremia, mild metabolic encephalopathy: Patient had temporary dialysis right IJ was inserted on 09/30 which was removed on 10/03. Vein mapping ordered by trip rider. Patient 24-hour total protein about 3 g, creatinine clearance 21 mL/min. Patient other comorbidities include steroid-induced type II, morbid obesity, anxiety, depression diagnosis anemia: As mentioned above Patient is drowsy and lethargic therefore did not discuss advanced directive with the patient directly. Her daughter wants to be power of insurance attorney for health but needs paperwork to proceed on. I have discussed my assessment with YUMIKO Shah and orders have been reviewed. Inpatient E&M: [id number] Subs Hosp L2
[2020-10-05] MEDS: Ferrous Sulfate 325 MG Tablet PO ×2 (12:57→17:46)
[2020-10-05 13:00] LABS: Bedside Glucose 170 mg/dL (70-110)
[2020-10-05] MEDS: Furosemide 40 MG Tablet PO ×2 (13:04→17:46)
[2020-10-05] MEDS: Lacosamide 100 MG Tablet PO (13:04)
--- NOTE | 2020-10-05 13:48 | CASEMGMT ---
ANNIE received a call from Julia with [facility] ([facility]). She asked if patient needs dialysis. ANNIE told her that as of now she does not. She said their concern is that if she would end up needing it while she was there they do not have the means to transport patient back and forth to dialysis. She said she gave the information to the clinical team and they will look it over. She asked that ANNIE keep her updated and she will keep in touch with ANNIE. ANNIE was not clear on [facility]'s answer so ANNIE called Juila back and left her a voice mail. Katelynn ANDRADE
--- NOTE | 2020-10-05 14:00 | CASEMGMT ---
ANNIE received a return call from Julia at [facility] ([facility]) and she said they are not able to accept patient. ANNIE faxed referral to [facility] as this was the patient and family's second choice. ANNIE went to patient's room and let her and her daughter know above. They were in agreement with this plan. Await response from [facility]. Katelynn ANDRADE
[2020-10-05] MEDS: Nystatin Powder 15gm Bottle 1 APPLIC TOPICAL ×2 (14:58→20:58)
[2020-10-05 17:56] LABS: Bedside Glucose 168 mg/dL (70-110)
[2020-10-05] MEDS: Atorvastatin Calcium 10 MG Tablet PO (20:58)
[2020-10-05 22:00] LABS: Bedside Glucose 104 mg/dL (70-110)
[2020-10-06] VITALS (12 sets, daily range): BP systolic 129–157; BP diastolic 49–77; PULSE 52–65; RESP 16–20; TEMP 36.3–36.9; O2SAT 96–100
[2020-10-06] MEDS: Nystatin Powder 15gm Bottle 1 APPLIC TOPICAL ×3 (05:38→21:22)
[2020-10-06] MEDS: Heparin Injection (Vial) 5,000 UNIT/ML VIAL 5000 UNIT SC ×3 (05:38→21:23)
[2020-10-06] MEDS: Insulin Lispro 100 UNIT/ML INSULN.PEN SC ×4 (08:51→16:13)
[2020-10-06] MEDS: Aspirin 81 MG TAB.CHEW PO (08:52)
[2020-10-06] MEDS: Furosemide 40 MG Tablet PO ×2 (08:53→17:15)
[2020-10-06] MEDS: Escitalopram Oxalate 10 MG Tablet PO (08:54)
[2020-10-06] MEDS: amLODIPine 10 MG Tablet PO (08:55)
[2020-10-06] MEDS: Metoprolol(XL)Succ 25 MG Tablet 75 MG PO (08:56)
[2020-10-06] MEDS: Lacosamide 100 MG Tablet PO (08:59)
--- NOTE | 2020-10-06 10:25 | CASEMGMT ---
Addendum entered by Katelynn Bui 10/06/20 11:23: ANNIE let Valentina with [facility] know that patient may be discharged today pending the Wind Plant Manager seeing her. She said that is fine. Katelynn ANDRADE Original Note: SW spoke with Valentina at [facility] and she said they can take patient. SW told her possible discharge tomorrow. SW called patient's daughter and let her know that [facility] can take her and that the physician may discharge her today. SW told her SW can let her know. SW asked if patient had her vaccines and she has not. SW told her patient will have to quarantine for 14 days at [facility] before she can have visitors. Plan: d/c to [facility] under skilled level of care. Katelynn ANDRADE
[2020-10-06 11:01] LABS: Bedside Glucose 143 mg/dL (70-110)
[2020-10-06] MEDS: Ferrous Sulfate 325 MG Tablet PO ×2 (11:05→16:14)
[2020-10-06 11:26] LABS: Bedside Glucose 138 mg/dL (70-110)
[2020-10-06] MEDS: Furosemide 40 MG/4 ML Vial IV (11:41)
[2020-10-06 11:53] LABS: Albumin, Serum 2.3 g/dL (3.2-5.0); BUN 52 mg/dL (7-18); BUN/Creat Ratio 23.3 RATIO (10-20); Calcium,Total 8.8 mg/dL (8.5-10.1); Chloride 104 mmol/L (98-107); Creatinine, Serum 2.23 mg/dL (0.55-1.02); EST Glomerular Filtration Rate 23 mL/min (>60); Est Glom Filt Rate - Afr Amer 28 mL/min (>60); Glucose 154 mg/dL (74-106); Phosphorus 3.9 mg/dL (2.5-4.9); Potassium 4.7 mmol/L (3.5-5.1); Sodium Level 136 mmol/L (136-145)
--- NOTE | 2020-10-06 12:15 | CASEMGMT ---
Patient is staying 1 more day. SW called her daughter and let her know patient will be staying another day. ANNIE will also let [facility] know this information. Katelynn ANDRADE
--- NOTE | 2020-10-06 12:23 | PN_ITS ---
<Alfred Liang - Last Filed: 10/06/20 12:23> Patient Problems: Active and Suspected Problems Debility (Acute) Shortness of breath (Acute) ELENITA (obstructive sleep apnea) (Acute) Morbid obesity with BMI of 50.0-59.9, adult (Acute) Iron deficiency anemia (Acute) Bradycardia (Acute) UTI (urinary tract infection) (Acute) Dehydration (Acute) Acute renal failure (Acute) DEBBIE (acute kidney injury) (Acute) Breakthrough seizure (Acute) Acute respiratory failure with hypoxia (Acute) Thrombocytopenia (Acute) Subjective: Patient sitting in chair eating lunch, alert and oriented x3. Patient presentation has improved from yesterday as she is no longer somnolent and can respond to questions, however she is still short of breath while maintaining normal oxygen saturation. Objective: Clinical Impression(s) from Imaging Studies Brain CT 09/29/20 13:28 IMPRESSION: Chronic involutional changes of the brain. Electronically Signed: Baljeet Chen MD at 14:05 EDT , Service support , Chest X-Ray 09/29/20 14:20 IMPRESSION: Findings in keeping with a mild degree of CHF and bibasilar atelectasis. Electronically Signed: Baljeet Chen MD at 15:01 EDT , Service support , Echocardiogram 09/29/20 16:49 Interpretation Summary The study was technically difficult. Left ventricular systolic function is normal. The estimated ejection fraction is 55 %. Severely dilated right ventricle. Moderate global right ventricular systolic dysfunction. Mild (1+) eccentric mitral valve insufficiency. Poor coaptation of the tricuspid valve apparatus. Moderately severe (3+) tricuspid valve insufficiency. Calcified aortic root. Unable to estimate RV systolic pressure due to insufficient tricuspid regurgitant envelope. No evidence for diastolic dysfunction. Ordering Physician: Lazaro Lee Referring Physician: Bailey Toribio Performed By: Rosemary Sanchez, CLARISSA Chest X-Ray 09/30/20 17:00 IMPRESSION: Basilar atelectasis/infiltrates bilaterally. Electronically Signed: Tao Simpson DO at 18:41 EDT Tel [phone], Service support , Microbiology 10/02/20 19:17 Mucosa - Nose SARS-CoV-2 Antigen (Rapid) - Final Vitals/I&O's: Vital Signs Temp Pulse Resp BP Pulse Ox 97.9 F 65 18 149/77 H 97 10/06/20 09:01 10/06/20 09:01 10/06/20 09:01 10/06/20 09:01 10/06/20 09:01 Oxygen Flow Rate (L/min) 2 Oxygen Delivery Method Room Air Weight: 257 lb 4.471 oz Body Mass Index (BMI) 50.8 Finger Stick Blood Glucose 410 Intake and Output for Last 24 Hours 10/04/20 10/05/20 10/06/20 23:59 23:59 23:59 Intake Total 480 / 600 680 / 800 220 / 220 Output Total 700 / 700 800 / 800 500 / 500 Balance -220 / -100 -120 / 0 -280 / -280 General: Alert, Oriented x3, Cooperative HEENT: Atraumatic, PERRLA, EOMI, Normocephalic Neck: Supple, No JVD, Negative Carotid Bruits Lungs: Diminished, Short of Breath, Using Accessory Muscles Cardiovascular: Regular rate, No murmurs Abdomen: Bowel Sounds Present, Soft, Non Tender Extremities: No edema, Capillary Refill Less than 3 Seconds Skin: No rashes, No breakdown Musculoskeletal: No Tenderness to Palpation of Joints or Extremities Neurological: Cranial nerves II-XII grossly intact Psych/Mental Status: Normal Affect, Appropriate Laboratory Results 10/05/20 12:50: POC Glucose 170 H 10/05/20 17:42: POC Glucose 168 H 10/05/20 20:56: POC Glucose 104 10/06/20 08:47: POC Glucose 143 H 10/06/20 11:04: POC Glucose 138 H 10/06/20 11:24: Sodium 136, Potassium 4.7, Chloride 104, Carbon Dioxide 29.0, BUN 52 H, Creatinine 2.23 H, Estim Creat Clear Calc 15.90, Est GFR (MDRD) Af Amer 28 L, Est GFR (MDRD) Non-Af 23 L, BUN/Creatinine Ratio 23.3 H, Glucose 154 H, Calcium 8.8, Phosphorus 3.9, Albumin 2.3 L Current Medications Acetaminophen (Acetaminophen 325 Mg Tablet) 650 mg PO Q6H PRN PRN PRN Reason: Pain Score 1-10 Last Admin: 10/04/20 15:13 Dose: 650 mg Documented by: Amlodipine Besylate (Amlodipine 10 Mg Tablet) 10 mg PO DAILY [facility] Last Admin: 10/06/20 08:55 Dose: 10 mg Documented by: Aspirin (Aspirin 81 Mg Tab.Chew) 81 mg PO DAILYCM [facility] Last Admin: 10/06/20 08:52 Dose: 81 mg Documented by: Atorvastatin Calcium (Atorvastatin Calcium 10 Mg Tablet) 10 mg PO QHS [facility] Last Admin: 10/05/20 20:58 Dose: 10 mg Documented by: Dextrose (Dextrose 50%-Water 25 Gm/50 Ml Disp.Syrin) 0 gm IV X1 PRN; Protocol PRN Reason: Hypoglycemia Escitalopram Oxalate (Escitalopram Oxalate 10 Mg Tablet) 10 mg PO DAILY [facility] Last Admin: 10/06/20 08:54 Dose: 10 mg Documented by: Ferrous Sulfate (Ferrous Sulfate 325 Mg Tablet) 325 mg PO 1200,1700 [facility] Last Admin: 10/06/20 11:05 Dose: 325 mg Documented by: Furosemide (Furosemide 40 Mg Tablet) 40 mg PO BID@1000,1800 [facility] Last Admin: 10/06/20 08:53 Dose: 40 mg Documented by: Glucagon (Glucagon 1 Mg/Ml Syringe) 1 mg IM .X1 PRN PRN Reason: Hypoglycemia Heparin Sodium (Porcine) (Heparin Injection (Vial) 5,000 Unit/Ml Vial) 5,000 unit SC Q8 [facility] Last Admin: 10/06/20 05:38 Dose: 5,000 unit Documented by: Sodium Chloride () 250 mls @ 15 mls/hr IV .[id number] PRN PRN Reason: Saline Flush Last Infusion: 10/02/20 07:36 Dose: Infused Documented by: Sodium Chloride () 250 mls @ 15 mls/hr IV .[id number] PRN PRN Reason: Additional IVPB Infusion Insulin Glargine (Insulin Glargine 100 Units/Ml Pen) 5 units SC BREAKFAST [facility] Last Admin: 10/06/20 08:53 Dose: 5 u Documented by: Insulin Glargine (Insulin Glargine 100 Units/Ml Pen) 5 units SC QHS [facility] Last Admin: 10/05/20 20:57 Dose: Not Given Documented by: Insulin Human Lispro (Insulin Lispro 100 Unit/Ml Insuln.Pen) 0 unit SC ACHS [facility]; Protocol Last Admin: 10/06/20 11:05 Dose: Not Given Documented by: Insulin Human Lispro (Insulin Lispro 100 Unit/Ml Insuln.Pen) 5 unit SC BREAKFAST [facility] Last Admin: 10/06/20 08:51 Dose: 5 unit Documented by: Insulin Human Lispro (Insulin Lispro 100 Unit/Ml Insuln.Pen) 5 unit SC DINNER [facility] Last Admin: 10/05/20 17:45 Dose: 5 u Documented by: Insulin Human Lispro (Insulin Lispro 100 Unit/Ml Insuln.Pen) 5 unit SC LUNCH [facility] Last Admin: 10/06/20 11:05 Dose: 5 u Documented by: Lacosamide (Lacosamide 100 Mg Tablet) 100 mg PO DAILY [facility] Last Admin: 10/06/20 08:59 Dose: 100 mg Documented by: Metoprolol Succinate (Metoprolol(Xl)Succ 25 Mg Tablet) 75 mg PO DAILY [facility] Last Admin: 10/06/20 08:56 Dose: 75 mg Documented by: Nystatin (Nystatin Powder 15gm Bottle) 1 applic TOPICAL TID [facility]; Protocol Last Admin: 10/06/20 05:38 Dose: 1 appful Documented by: Polyethylene Glycol (Polyethylene Glycol 3350 17 Gm Packet) 17 gm PO BID [facility] Last Admin: 10/06/20 08:54 Dose: Not Given Documented by: Sodium Chloride (0.9% Saline Lock 10 Ml Syringe) 10 - 40 ml IV UD PRN PRN Reason: SALINE FLUSH Last Admin: 10/04/20 16:51 Dose: 10 ml Documented by: STROKE Vital Signs/Narrative: Vital Signs Temp Pulse Resp BP Pulse Ox 10/06/20 09:01 97.9 F 65 18 149/77 H 97 10/06/20 08:56 65 149/77 H Medical Necessity - Tobacco Use Smoking Status: Former smoker Tobacco Use: Cigarettes Assessment/Plan All Active Problems Debility (Acute) Shortness of breath (Acute) ELENITA (obstructive sleep apnea) (Acute) Morbid obesity with BMI of 50.0-59.9, adult (Acute) Iron deficiency anemia (Acute) Hyperkalemia (Acute) Bradycardia (Acute) Intractable low back pain (Acute) UTI (urinary tract infection) (Acute) Dehydration (Acute) Acute renal failure (Acute) Community acquired pneumonia (Acute) DEBBIE (acute kidney injury) (Acute) Breakthrough seizure (Acute) Acute respiratory failure with hypoxia (Acute) Thrombocytopenia (Acute) Patient is a 74-year-old female who who was admitted on 09/29/2020 for hypoxic respiratory failure secondary to acute on chronic diastolic CHF, status post seizure and CKD stage IV. Patient presentation has improved much from yesterday as she is no longer somnolent and can hold a conversation, however she is still short of breath while maintaining normal oxygen saturation. Given the patient's short of breath and her elevated creatinine from yesterday at 2.23 it is the opinion of the nephrology and hospital medicine team that the patient should be remain admitted overnight. Patient will not be receiving dialysis catheter as her GFR is still above 20. Possible discharge tomorrow to [facility]. 1) acute hypoxic respiratory failure secondary to acute on chronic diastolic CHF Assessment - Echo with a EF of 55% and severely dilated right ventricle, suggestive of cor pulmonale - Norvasc continued, BP stable - Current weight 257, down 5 pounds from admission - Dialysis catheter will not be placed as GFR is still above 20 Plan - Resume Lasix 40 mg p.o. twice daily - Monitor I's/O's and daily weights - Continue with statin - Fluid restricted diet initiated - Possible discharge on 10/07/2020 to [facility] 2) Post ictal S/P seizure Assessment - The ED demonstrates no seizure-like activity - Considering encephalopathy secondary to uremia or hypoglycemia Plan -Continue Vimpat 3) DM2/Morbid obesity Assessment - Blood sugar 138 - Elevated blood sugar at admission at 406 Plan - Continue on long-acting insulin at 5 units twice daily as well as sliding scale insulin and mealtime insulin - Continue Accu-Cheks at bedtime - Lifestyle modifications previously discussed - Calorie restricted diet initiated 4) CKD 4 Assessment - Creatinine clearance 21 mL/min - Estimated GFR 25 - No chronic dialysis at this time per nephrology - 24-hour total protein about 3 g Plan - Patient will not receive AV fistula for dialysis due to maintain GFR - Resume Lasix 40 mg p.o. twice daily 5) Iron Deficiency anemia Assessment - Hemoglobin 10 - Iron 35 - TIBC 338 - Iron saturation 10.4 Plan -Continue with iron replacement DVT Prophylaxis -SC heparin Patient seen by Alfred Liang PA-C, under the supervision of Dr. Blanton. <Osman Blanton - Last Filed: 10/06/20 15:20> Reason for Visit: Follow-up for anasarca, CKD stage IV. Objective: Patient sitting in the chair but is still short of breath. Heart rate in the low 60s. Pulse ox 97% on room air. Physical exam General: Awake but lethargic. Dyspnea at rest. HEENT: Atraumatic, PERRLA, EOMI, Normocephalic Oral: No Gingival or Mucosal Lesions/ Ulcerations Neck: Supple, No JVD, Negative Carotid Bruits Lungs: Air entry diminished in bilateral lung bases. Bibasilar coarse crepitation. Cardiovascular: Regular rate, Regular Rhythm, Normal S1, Normal S2, systolic murmur over LLSB Abdomen: Bowel Sounds Present, Soft, Non Tender, Non-Distended : No renal angle tenderness. No suprapubic tenderness. Extremities: Bilateral leg edema around the knees and thighs., Capillary Refill Less than 3 Seconds Skin: No rashes, No breakdown Musculoskeletal: tenderness in the legs. Neurological: Cranial nerves II-XII grossly intact, Deep Tendon Reflexes 2+/4 and Symmetrical, Neuro grossly intact Psych/Mental Status: Lethargic. Vitals/I&O's: Vital Signs Temp Pulse Resp BP Pulse Ox 98.3 F 58 L 17 129/67 H 100 10/06/20 14:23 10/06/20 14:23 10/06/20 14:23 10/06/20 14:23 10/06/20 14:23 Oxygen Flow Rate (L/min) 2 Oxygen Delivery Method Room Air Weight: 257 lb 4.471 oz Body Mass Index (BMI) 50.8 Finger Stick Blood Glucose 410 Intake and Output for Last 24 Hours 10/04/20 10/05/20 10/06/20 23:59 23:59 23:59 Intake Total 480 / 600 680 / 800 460 / 460 Output Total 700 / 700 800 / 800 1000 / 1000 Balance -220 / -100 -120 / 0 -540 / -540 Laboratory Results 10/05/20 17:42: POC Glucose 168 H 10/05/20 20:56: POC Glucose 104 10/06/20 08:47: POC Glucose 143 H 10/06/20 11:04: POC Glucose 138 H 10/06/20 11:24: Sodium 136, Potassium 4.7, Chloride 104, Carbon Dioxide 29.0, BUN 52 H, Creatinine 2.23 H, Estim Creat Clear Calc 15.90, Est GFR (MDRD) Af Amer 28 L, Est GFR (MDRD) Non-Af 23 L, BUN/Creatinine Ratio 23.3 H, Glucose 154 H, Calcium 8.8, Phosphorus 3.9, Albumin 2.3 L Current Medications Acetaminophen (Acetaminophen 325 Mg Tablet) 650 mg PO Q6H PRN PRN PRN Reason: Pain Score 1-10 Last Admin: 10/04/20 15:13 Dose: 650 mg Documented by: Amlodipine Besylate (Amlodipine 10 Mg Tablet) 10 mg PO DAILY [facility] Last Admin: 10/06/20 08:55 Dose: 10 mg Documented by: [facility]irin ([facility]w) [facility] Last Admin: 10/06/20 08:52 Dose: 81 mg Documented by: Atorvastatin Calcium (Atorvastatin Calcium 10 Mg Tablet) 10 mg PO QHS [facility] Last Admin: 10/05/20 20:58 Dose: 10 mg Documented by: Dextrose (Dextrose 50%-Water 25 Gm/50 Ml Disp.Syrin) 0 gm IV X1 PRN; Protocol PRN Reason: Hypoglycemia Escitalopram Oxalate (Escitalopram Oxalate 10 Mg Tablet) 10 mg PO DAILY [facility] Last Admin: 10/06/20 08:54 Dose: 10 mg Documented by: Ferrous Sulfate (Ferrous Sulfate 325 Mg Tablet) 325 mg PO 1200,1700 [facility] Last Admin: 10/06/20 11:05 Dose: 325 mg Documented by: Furosemide (Furosemide 40 Mg Tablet) 40 mg PO BID@1000,1800 [facility] Last Admin: 10/06/20 08:53 Dose: 40 mg Documented by: Glucagon (Glucagon 1 Mg/Ml Syringe) 1 mg IM .X1 PRN PRN Reason: Hypoglycemia Heparin Sodium (Porcine) (Heparin Injection (Vial) 5,000 Unit/Ml Vial) 5,000 unit SC Q8 [facility] Last Admin: 10/06/20 14:18 Dose: 5,000 unit Documented by: Sodium Chloride () 250 mls @ 15 mls/hr IV .[id number] PRN PRN Reason: Saline Flush Last Infusion: 10/02/20 07:36 Dose: Infused Documented by: Sodium Chloride () 250 mls @ 15 mls/hr IV .[id number] PRN PRN Reason: Additional IVPB Infusion Insulin Glargine (Insulin Glargine 100 Units/Ml Pen) 5 units SC BREAKFAST [facility] Last Admin: 10/06/20 08:53 Dose: 5 u Documented by: Insulin Glargine (Insulin Glargine 100 Units/Ml Pen) 5 units SC QHS [facility] Last Admin: 10/05/20 20:57 Dose: Not Given Documented by: Insulin Human Lispro (Insulin Lispro 100 Unit/Ml Insuln.Pen) 0 unit SC ACHS [facility]; Protocol Last Admin: 10/06/20 11:05 Dose: Not Given Documented by: Insulin Human Lispro (Insulin Lispro 100 Unit/Ml Insuln.Pen) 5 unit SC BREAKFAST [facility] Last Admin: 10/06/20 08:51 Dose: 5 unit Documented by: Insulin Human Lispro (Insulin Lispro 100 Unit/Ml Insuln.Pen) 5 unit SC DINNER [facility] Last Admin: 10/05/20 17:45 Dose: 5 u Documented by: Insulin Human Lispro (Insulin Lispro 100 Unit/Ml Insuln.Pen) 5 unit SC LUNCH [facility] Last Admin: 10/06/20 11:05 Dose: 5 u Documented by: Lacosamide (Lacosamide 100 Mg Tablet) 100 mg PO DAILY [facility] Last Admin: 10/06/20 08:59 Dose: 100 mg Documented by: Metoprolol Succinate (Metoprolol(Xl)Succ 25 Mg Tablet) 75 mg PO DAILY [facility] Last Admin: 10/06/20 08:56 Dose: 75 mg Documented by: Nystatin (Nystatin Powder 15gm Bottle) 1 applic TOPICAL TID [facility]; Protocol Last Admin: 10/06/20 14:17 Dose: 1 appful Documented by: Polyethylene Glycol (Polyethylene Glycol 3350 17 Gm Packet) 17 gm PO BID [facility] Last Admin: 10/06/20 08:54 Dose: Not Given Documented by: Sodium Chloride (0.9% Saline Lock 10 Ml Syringe) 10 - 40 ml IV UD PRN PRN Reason: SALINE FLUSH Last Admin: 10/04/20 16:51 Dose: 10 ml Documented by: STROKE Vital Signs/Narrative: Vital Signs Temp Pulse Resp BP Pulse Ox 10/06/20 14:23 98.3 F 58 L 17 129/67 H 100 Assessment/Plan This patient was seen in conjunction with YUMIKO Shah. I have independently interviewed and examined the patient and reviewed pertinent history, examination findings, laboratory and plan of management. I have reviewed the note and agree with the documented findings with the few additional points. In brief, patient is admitted for acute hypoxic respiratory failure secondary to acute on chronic diastolic heart failure and right ventricular failure. 2D echo was done shows EF 55% with severely dilated RV consistent with cor pulmonale. Patient has history of obstructive sleep apnea and needs formal sleep study. CKD stage IV with uremia, mild metabolic encephalopathy: Patient had temporary dialysis right IJ was inserted on 09/30 which was removed on 10/03. Vein mapping ordered by group reservations coordinator. Patient 24-hour total protein about 3 g, creatinine clearance 21 mL/min. Discussed with the group reservations coordinator. Slight increase in creatinine with no significant change in GFR. Patient other comorbidities include steroid-induced type II, morbid obesity, anxiety, depression diagnosis anemia: As mentioned above Patient is drowsy and lethargic therefore did not discuss advanced directive with the patient directly. Her daughter wants to be power of estate attorney for health but needs paperwork to proceed on. I have discussed my assessment with YUMIKO Shah and orders have been reviewed. Inpatient E&M: 79562 Subs Hosp L2 Inpatient E&M: 12796 Subs Hosp L2
--- NOTE | 2020-10-06 12:25 | PCM.PN.REN ---
Patient Problems: Active and Suspected Problems Debility (Acute) Shortness of breath (Acute) ELENITA (obstructive sleep apnea) (Acute) Morbid obesity with BMI of 50.0-59.9, adult (Acute) Iron deficiency anemia (Acute) Bradycardia (Acute) UTI (urinary tract infection) (Acute) Dehydration (Acute) Acute renal failure (Acute) DEBBIE (acute kidney injury) (Acute) Breakthrough seizure (Acute) Acute respiratory failure with hypoxia (Acute) Thrombocytopenia (Acute) Subjective: pt spouse at bedside. Urine output good on lasix twice a day. Still with diffuse edema. Creatinine sllightly increased to 2.23. Arranged therapy at [facility]. - Physical Exam Vitals/I&O's: Vital Signs Temp Pulse Resp BP Pulse Ox 97.9 F 65 18 149/77 H 97 10/06/20 09:01 10/06/20 09:01 10/06/20 09:01 10/06/20 09:01 10/06/20 09:01 Oxygen Flow Rate (L/min) 2 Oxygen Delivery Method Room Air Weight: 116.7 kg Body Mass Index (BMI) 50.8 Finger Stick Blood Glucose 410 Intake and Output for Last 24 Hours 10/04/20 10/05/20 10/06/20 23:59 23:59 23:59 Intake Total 480 / 600 680 / 800 220 / 220 Output Total 700 / 700 800 / 800 500 / 500 Balance -220 / -100 -120 / 0 -280 / -280 General: Alert, Oriented x3 Lungs: Clear to auscultation Cardiovascular: Regular rate Abdomen: Bowel Sounds Present, Soft, Non Tender, Obese Extremities: Edema Psych/Mental Status: Alert and oriented to time, place, person, mood and affect Laboratory Results 10/05/20 12:50: POC Glucose 170 H 10/05/20 17:42: POC Glucose 168 H 10/05/20 20:56: POC Glucose 104 10/06/20 08:47: POC Glucose 143 H 10/06/20 11:04: POC Glucose 138 H 10/06/20 11:24: Sodium 136, Potassium 4.7, Chloride 104, Carbon Dioxide 29.0, BUN 52 H, Creatinine 2.23 H, Estim Creat Clear Calc 15.90, Est GFR (MDRD) Af Amer 28 L, Est GFR (MDRD) Non-Af 23 L, BUN/Creatinine Ratio 23.3 H, Glucose 154 H, Calcium 8.8, Phosphorus 3.9, Albumin 2.3 L Current Medications Acetaminophen (Acetaminophen 325 Mg Tablet) 650 mg PO Q6H PRN PRN PRN Reason: Pain Score 1-10 Last Admin: 10/04/20 15:13 Dose: 650 mg Documented by: Amlodipine Besylate (Amlodipine 10 Mg Tablet) 10 mg PO DAILY [facility] Last Admin: 10/06/20 08:55 Dose: 10 mg Documented by: Aspirin (Aspirin 81 Mg Tab.Chew) 81 mg PO DAILYCM [facility] Last Admin: 10/06/20 08:52 Dose: 81 mg Documented by: Atorvastatin Calcium (Atorvastatin Calcium 10 Mg Tablet) 10 mg PO QHS [facility] Last Admin: 10/05/20 20:58 Dose: 10 mg Documented by: Dextrose (Dextrose 50%-Water 25 Gm/50 Ml Disp.Syrin) 0 gm IV X1 PRN; Protocol PRN Reason: Hypoglycemia Escitalopram Oxalate (Escitalopram Oxalate 10 Mg Tablet) 10 mg PO DAILY [facility] Last Admin: 10/06/20 08:54 Dose: 10 mg Documented by: Ferrous Sulfate (Ferrous Sulfate 325 Mg Tablet) 325 mg PO 1200,1700 [facility] Last Admin: 10/06/20 11:05 Dose: 325 mg Documented by: Furosemide (Furosemide 40 Mg Tablet) 40 mg PO BID@1000,1800 [facility] Last Admin: 10/06/20 08:53 Dose: 40 mg Documented by: Glucagon (Glucagon 1 Mg/Ml Syringe) 1 mg IM .X1 PRN PRN Reason: Hypoglycemia Heparin Sodium (Porcine) (Heparin Injection (Vial) 5,000 Unit/Ml Vial) 5,000 unit SC Q8 [facility] Last Admin: 10/06/20 05:38 Dose: 5,000 unit Documented by: Sodium Chloride () 250 mls @ 15 mls/hr IV .[id number] PRN PRN Reason: Saline Flush Last Infusion: 10/02/20 07:36 Dose: Infused Documented by: Sodium Chloride () 250 mls @ 15 mls/hr IV .[id number] PRN PRN Reason: Additional IVPB Infusion Insulin Glargine (Insulin Glargine 100 Units/Ml Pen) 5 units SC BREAKFAST [facility] Last Admin: 10/06/20 08:53 Dose: 5 u Documented by: Insulin Glargine (Insulin Glargine 100 Units/Ml Pen) 5 units SC QHS [facility] Last Admin: 10/05/20 20:57 Dose: Not Given Documented by: Insulin Human Lispro (Insulin Lispro 100 Unit/Ml Insuln.Pen) 0 unit SC ACHS [facility]; Protocol Last Admin: 10/06/20 11:05 Dose: Not Given Documented by: Insulin Human Lispro (Insulin Lispro 100 Unit/Ml Insuln.Pen) 5 unit SC BREAKFAST [facility] Last Admin: 10/06/20 08:51 Dose: 5 unit Documented by: Insulin Human Lispro (Insulin Lispro 100 Unit/Ml Insuln.Pen) 5 unit SC DINNER [facility] Last Admin: 10/05/20 17:45 Dose: 5 u Documented by: Insulin Human Lispro (Insulin Lispro 100 Unit/Ml Insuln.Pen) 5 unit SC LUNCH [facility] Last Admin: 10/06/20 11:05 Dose: 5 u Documented by: Lacosamide (Lacosamide 100 Mg Tablet) 100 mg PO DAILY [facility] Last Admin: 10/06/20 08:59 Dose: 100 mg Documented by: Metoprolol Succinate (Metoprolol(Xl)Succ 25 Mg Tablet) 75 mg PO DAILY [facility] Last Admin: 10/06/20 08:56 Dose: 75 mg Documented by: Nystatin (Nystatin Powder 15gm Bottle) 1 applic TOPICAL TID [facility]; Protocol Last Admin: 10/06/20 05:38 Dose: 1 appful Documented by: Polyethylene Glycol (Polyethylene Glycol 3350 17 Gm Packet) 17 gm PO BID [facility] Last Admin: 10/06/20 08:54 Dose: Not Given Documented by: Sodium Chloride (0.9% Saline Lock 10 Ml Syringe) 10 - 40 ml IV UD PRN PRN Reason: SALINE FLUSH Last Admin: 10/04/20 16:51 Dose: 10 ml Documented by: Medical Necessity - Tobacco Use Smoking Status: Former smoker Tobacco Use: Cigarettes Assessment/Plan All Active Problems Debility (Acute) Shortness of breath (Acute) ELENITA (obstructive sleep apnea) (Acute) Morbid obesity with BMI of 50.0-59.9, adult (Acute) Iron deficiency anemia (Acute) Hyperkalemia (Acute) Bradycardia (Acute) Intractable low back pain (Acute) UTI (urinary tract infection) (Acute) Dehydration (Acute) Acute renal failure (Acute) Community acquired pneumonia (Acute) DEBBIE (acute kidney injury) (Acute) Breakthrough seizure (Acute) Acute respiratory failure with hypoxia (Acute) Thrombocytopenia (Acute) 1. Acute on CKD Stage 4 due to ATN underlying diabetic nephropathy. 24h urine CRCL 21cc/min with serum Creatinine increased to 2.23, total protein 3g. Hold on ACEI due to rise in creatinine 2. iron def anemia hgb stable, continue oral iron 3. Diastolic HF lasix daily to bid for edema 4. Seizure activity on vimpat f/u with neurology 5. DM type 2 with nephropathy DW [facility], hospitalist
[2020-10-06 17:15] LABS: Bedside Glucose 163 mg/dL (70-110)
[2020-10-06] MEDS: Acetaminophen 325 MG Tablet 650 MG PO (17:15)
[2020-10-06] MEDS: Atorvastatin Calcium 10 MG Tablet PO (21:23)
[2020-10-06 21:41] LABS: Bedside Glucose 92 mg/dL (70-110)
[2020-10-07] VITALS (8 sets, daily range): BP systolic 143–152; BP diastolic 58–75; PULSE 54–67; RESP 16–18; TEMP 36.6; O2SAT 99–100
[2020-10-07] MEDS: Heparin Injection (Vial) 5,000 UNIT/ML VIAL 5000 UNIT SC (05:20)
[2020-10-07] MEDS: Acetaminophen 325 MG Tablet 650 MG PO (05:20)
[2020-10-07] MEDS: Nystatin Powder 15gm Bottle 1 APPLIC TOPICAL (05:21)
[2020-10-07 07:03] LABS: ALB/GLOB Ratio 0.6 RATIO (0.9-2.4); AST(SGOT) 35 U/L (15-37); Alanine Aminotransfer ALT/SGPT 27 U/L (13-56); Albumin, Serum 2.2 g/dL (3.2-5.0); Alkaline Phosphatase 78 U/L (45-117); Anion Gap 5 (5-15); BUN 55 mg/dL (7-18); BUN/Creat Ratio 25.7 RATIO (10-20); Calcium,Total 8.8 mg/dL (8.5-10.1); Chloride 104 mmol/L (98-107); Creatinine, Serum 2.14 mg/dL (0.55-1.02); EST Glomerular Filtration Rate 24 mL/min (>60); Est Glom Filt Rate - Afr Amer 29 mL/min (>60); Estimated Creatinine Clearance 16.57 ml/min; Globulin 3.6 g/dL (2.2-4.2); Glucose 97 mg/dL (74-106); Potassium 5.1 mmol/L (3.5-5.1); Protein, Total 5.8 g/dL (6.4-8.2); Sodium Level 136 mmol/L (136-145)
[2020-10-07 07:05] LABS: Bedside Glucose 83 mg/dL (70-110)
[2020-10-07] MEDS: Sodium Polystyrene Sulfonate 15 GM/60 ML UDC PO (08:47)
[2020-10-07] MEDS: Escitalopram Oxalate 10 MG Tablet PO (08:48)
[2020-10-07] MEDS: amLODIPine 10 MG Tablet PO (08:48)
[2020-10-07] MEDS: Aspirin 81 MG TAB.CHEW PO (08:48)
[2020-10-07] MEDS: Furosemide 40 MG Tablet PO (08:48)
[2020-10-07] MEDS: Metoprolol(XL)Succ 25 MG Tablet 75 MG PO (08:51)
--- NOTE | 2020-10-07 09:09 | PN.RENAL_ITS ---
Patient Problems: Active and Suspected Problems Debility (Acute) Shortness of breath (Acute) ELENITA (obstructive sleep apnea) (Acute) Morbid obesity with BMI of 50.0-59.9, adult (Acute) Iron deficiency anemia (Acute) Bradycardia (Acute) UTI (urinary tract infection) (Acute) Dehydration (Acute) Acute renal failure (Acute) DEBBIE (acute kidney injury) (Acute) Breakthrough seizure (Acute) Acute respiratory failure with hypoxia (Acute) Thrombocytopenia (Acute) Subjective: dyspnea with minimal exertion. Oxygenation stable. Still with diffuse edema to abdomen. On lasix twice a day. Creatinine stable at 2.1. Potassium mildly elevated at 5.1 discussed low K diet. - Physical Exam Vitals/I&O's: Vital Signs Temp Pulse Resp BP Pulse Ox 97.8 F 63 16 146/65 H 99 10/07/20 02:15 10/07/20 08:51 10/07/20 02:15 10/07/20 02:15 10/07/20 02:15 Oxygen Flow Rate (L/min) 2 Oxygen Delivery Method Nasal Cannula Weight: 115.4 kg Body Mass Index (BMI) 50.8 Finger Stick Blood Glucose 410 Intake and Output for Last 24 Hours 10/05/20 10/06/20 10/07/20 23:59 23:59 23:59 Intake Total 680 / 800 580 / 580 50 / 50 Output Total 800 / 800 1350 / 1650 600 / 600 Balance -120 / 0 -770 / -1070 -550 / -550 General: Alert, Oriented x3, - - mild dyspnea after getting up to walk for therapy Lungs: Diminished Cardiovascular: Bradycardic Abdomen: Bowel Sounds Present, Soft, Obese Extremities: Edema - to abdomen Neurological: - - debilitated Psych/Mental Status: Normal Affect, Appropriate, Alert and oriented to time, place, person, mood and affect Laboratory Results 10/06/20 08:47: POC Glucose 143 H 10/06/20 11:04: POC Glucose 138 H 10/06/20 11:24: Sodium 136, Potassium 4.7, Chloride 104, Carbon Dioxide 29.0, BUN 52 H, Creatinine 2.23 H, Estim Creat Clear Calc 15.90, Est GFR (MDRD) Af Amer 28 L, Est GFR (MDRD) Non-Af 23 L, BUN/Creatinine Ratio 23.3 H, Glucose 154 H, Calcium 8.8, Phosphorus 3.9, Albumin 2.3 L 10/06/20 16:12: POC Glucose 163 H 10/06/20 21:13: POC Glucose 92 10/07/20 06:30: Sodium 136, Potassium 5.1, Chloride 104, Carbon Dioxide 27.0, Anion Gap 5, BUN 55 H, Creatinine 2.14 H, Estim Creat Clear Calc 16.57, Est GFR (MDRD) Af Amer 29 L, Est GFR (MDRD) Non-Af 24 L, BUN/Creatinine Ratio 25.7 H, Glucose 97, Calcium 8.8, Total Bilirubin 1.00, AST 35, ALT 27, Alkaline Phosphatase 78, Total Protein 5.8 L, Albumin 2.2 L, Globulin 3.6, Albumin/Globulin Ratio 0.6 L 10/07/20 07:02: POC Glucose 83 Current Medications Acetaminophen (Acetaminophen 325 Mg Tablet) 650 mg PO Q6H PRN PRN PRN Reason: Pain Score 1-10 Last Admin: 10/07/20 05:20 Dose: 650 mg Documented by: Amlodipine Besylate (Amlodipine 10 Mg Tablet) 10 mg PO DAILY [facility] Last Admin: 10/07/20 08:48 Dose: 10 mg Documented by: Aspirin (Aspirin 81 Mg Tab.Chew) 81 mg PO DAILYCM [facility] Last Admin: 10/07/20 08:48 Dose: 81 mg Documented by: Atorvastatin Calcium (Atorvastatin Calcium 10 Mg Tablet) 10 mg PO QHS [facility] Last Admin: 10/06/20 21:23 Dose: 10 mg Documented by: Dextrose (Dextrose 50%-Water 25 Gm/50 Ml Disp.Syrin) 0 gm IV X1 PRN; Protocol PRN Reason: Hypoglycemia Escitalopram Oxalate (Escitalopram Oxalate 10 Mg Tablet) 10 mg PO DAILY [facility] Last Admin: 10/07/20 08:48 Dose: 10 mg Documented by: Ferrous Sulfate (Ferrous Sulfate 325 Mg Tablet) 325 mg PO 1200,1700 [facility] Last Admin: 10/06/20 16:14 Dose: 325 mg Documented by: Furosemide (Furosemide 40 Mg Tablet) 40 mg PO BID@1000,1800 [facility] Last Admin: 10/07/20 08:48 Dose: 40 mg Documented by: Glucagon (Glucagon 1 Mg/Ml Syringe) 1 mg IM .X1 PRN PRN Reason: Hypoglycemia Heparin Sodium (Porcine) (Heparin Injection (Vial) 5,000 Unit/Ml Vial) 5,000 unit SC Q8 [facility] Last Admin: 10/07/20 05:20 Dose: 5,000 unit Documented by: Sodium Chloride () 250 mls @ 15 mls/hr IV .[id number] PRN PRN Reason: Saline Flush Last Infusion: 10/02/20 07:36 Dose: Infused Documented by: Sodium Chloride () 250 mls @ 15 mls/hr IV .[id number] PRN PRN Reason: Additional IVPB Infusion Insulin Glargine (Insulin Glargine 100 Units/Ml Pen) 5 units SC BREAKFAST [facility] Last Admin: 10/07/20 08:49 Dose: 5 u Documented by: Insulin Glargine (Insulin Glargine 100 Units/Ml Pen) 5 units SC QHS [facility] Last Admin: 10/06/20 21:22 Dose: Not Given Documented by: Insulin Human Lispro (Insulin Lispro 100 Unit/Ml Insuln.Pen) 0 unit SC ACHS [facility]; Protocol Last Admin: 10/07/20 07:25 Dose: Not Given Documented by: Insulin Human Lispro (Insulin Lispro 100 Unit/Ml Insuln.Pen) 5 unit SC BREAKFAST [facility] Last Admin: 10/07/20 08:05 Dose: Not Given Documented by: Insulin Human Lispro (Insulin Lispro 100 Unit/Ml Insuln.Pen) 5 unit SC DINNER [facility] Last Admin: 10/06/20 16:13 Dose: 5 u Documented by: Insulin Human Lispro (Insulin Lispro 100 Unit/Ml Insuln.Pen) 5 unit SC LUNCH [facility] Last Admin: 10/06/20 11:05 Dose: 5 u Documented by: Lacosamide (Lacosamide 100 Mg Tablet) 100 mg PO DAILY [facility] Last Admin: 10/06/20 08:59 Dose: 100 mg Documented by: Metoprolol Succinate (Metoprolol(Xl)Succ 25 Mg Tablet) 75 mg PO DAILY [facility] Last Admin: 10/07/20 08:51 Dose: 75 mg Documented by: Nystatin (Nystatin Powder 15gm Bottle) 1 applic TOPICAL TID [facility]; Protocol Last Admin: 10/07/20 05:21 Dose: 1 appful Documented by: Polyethylene Glycol (Polyethylene Glycol 3350 17 Gm Packet) 17 gm PO BID [facility] Last Admin: 10/07/20 08:57 Dose: Not Given Documented by: Sodium Chloride (0.9% Saline Lock 10 Ml Syringe) 10 - 40 ml IV UD PRN PRN Reason: SALINE FLUSH Last Admin: 10/04/20 16:51 Dose: 10 ml Documented by: Medical Necessity - Tobacco Use Smoking Status: Former smoker Tobacco Use: Cigarettes Assessment/Plan All Active Problems Debility (Acute) Shortness of breath (Acute) ELENITA (obstructive sleep apnea) (Acute) Morbid obesity with BMI of 50.0-59.9, adult (Acute) Iron deficiency anemia (Acute) Hyperkalemia (Acute) Bradycardia (Acute) Intractable low back pain (Acute) UTI (urinary tract infection) (Acute) Dehydration (Acute) Acute renal failure (Acute) Community acquired pneumonia (Acute) DEBBIE (acute kidney injury) (Acute) Breakthrough seizure (Acute) Acute respiratory failure with hypoxia (Acute) Thrombocytopenia (Acute) 1. Acute on CKD Stage 4 due to ATN underlying diabetic nephropathy. 24h urine CRCL 21cc/min with serum Creatinine 2,1 today, K 5.1. Follow 2g K diet, kayexalate 15g x1. 2. iron def anemia hgb stable, continue oral iron 3. Diastolic HF lasix bid for edema 4. Seizure activity on vimpat f/u with neurology 5. DM type 2 with nephropathy DW hospitalist
[2020-10-07] MEDS: Lacosamide 100 MG Tablet PO (09:30)
--- NOTE | 2020-10-07 09:37 | CASEMGMT ---
Call to Cris at [facility] and message left with her to notify that pt will not be getting OP HD at this time per Dr. Steward. Marci RN CM
--- NOTE | 2020-10-07 10:13 | CASEMGMT ---
Yara at [facility] aware that pt discharging to [facility] today, voices understanding. Marci MALDONADO CM
--- NOTE | 2020-10-07 10:24 | CASEMGMT ---
Addendum entered by Katelynn Bui 10/07/20 10:31: SW called and left a message for Amee with [facility] letting her know about discharge to [facility] and that orders were faxed. Katelynn ANDRADE Original Note: Patient is ready for discharge to [facility]. ANNIE arranged for patient to get picked up at 1330 via cot. SW notified RN, construction secretary, patient, and left a message for Valentina at [facility]. ANNIE also called patient's daughter and let her know patient will be leaving to go to [facility] today and she is getting picked up at 1330. She asked if patient will have to quarantine and SW told her she will for 14 days and then they are scheduling visits. Plan: d/c to [facility] under skilled level of care on a convalescent stay. [facility] transported via cot. Katelynn ANDRADE
--- NOTE | 2020-10-07 10:26 | PCM.TXEXTCAR ---
<Alfred Liang - Last Filed: 10/06/20 11:26> - Diet 09/29/20 16:50 Diet: Cardiac: Calorie-Controlled Food consistency:: Regular Liquid Consistency:: Regular/Thin Dietary Modifications:: Consistent Carbohydrate Sodium Restricted Is pt able to select menu?: No Fluid restriction:: 1500 mL How many daily calories?: 1600 calorie - Routine Orders/Code Status [facility] - Allergies/Procedures Done in Hospital Allergies/Adverse Reactions: Allergies ciprofloxacin [From Cipro] Allergy (Verified 09/29/20 13:37) Rash codeine Allergy (Verified 09/29/20 13:37) Shortness of breath Penicillins Allergy (Verified 09/29/20 13:37) Hives CILLINS Allergy (Uncoded 09/29/20 13:37) Unknown - Type of Care/Length of Stay Estimated LOS: More Than 30 Days Type of Care Needed: Skilled Rehab Potential: Fair Prognosis: Fair - Additional Orders/Day of Discharge Day of Discharge: 10/06/20 - Dietary and Speech Recommendations Dietitian Recommendations/Changes: Continue diet of 1600 calorie-controlled; consistent-carbohydrate; cardiac/sodium-restricted w/ 1500ml fluid restriction. ONS only if PO fails--defer for now. - Follow Up Care Primary Care Physician: Bailey Toribio MD [Primary Care Provider] - <Osman Blanton - Last Filed: 10/06/20 15:13> - Diet 09/29/20 16:50 Diet: Cardiac: Calorie-Controlled Food consistency:: Regular Liquid Consistency:: Regular/Thin Dietary Modifications:: Consistent Carbohydrate Sodium Restricted Is pt able to select menu?: No Fluid restriction:: 1500 mL How many daily calories?: 1600 calorie
[2020-10-07] MEDS: Ferrous Sulfate 325 MG Tablet PO (11:04)
[2020-10-07 11:15] LABS: Bedside Glucose 146 mg/dL (70-110)
[2020-10-07] MEDS: Insulin Lispro 100 UNIT/ML INSULN.PEN SC (12:12)
--- NOTE | 2020-10-07 12:27 | DS.PCM_ITS ---
<Alfred Liang - Last Filed: 10/07/20 12:27> Discharge Date and Diagnosis - Problem List Patient Problems: Active and Suspected Problems Debility (Acute) Shortness of breath (Acute) ELENITA (obstructive sleep apnea) (Acute) Morbid obesity with BMI of 50.0-59.9, adult (Acute) Iron deficiency anemia (Acute) Bradycardia (Acute) UTI (urinary tract infection) (Acute) Dehydration (Acute) Acute renal failure (Acute) DEBBIE (acute kidney injury) (Acute) Breakthrough seizure (Acute) Acute respiratory failure with hypoxia (Acute) Thrombocytopenia (Acute) Date of Admission: 10/01/20 Date of Discharge: 10/07/20 - Primary Discharge Diagnosis Acute Problems: Active Problems Debility (Acute) Shortness of breath (Acute) ELENITA (obstructive sleep apnea) (Acute) Morbid obesity with BMI of 50.0-59.9, adult (Acute) Iron deficiency anemia (Acute) Bradycardia (Acute) UTI (urinary tract infection) (Acute) Dehydration (Acute) Acute renal failure (Acute) DEBBIE (acute kidney injury) (Acute) Breakthrough seizure (Acute) Acute respiratory failure with hypoxia (Acute) Thrombocytopenia (Acute) - Secondary Discharge Diagnosis Chronic Problems: Chronic Problems CKD (chronic kidney disease) stage 4, GFR 15-29 ml/min (Chronic) Sciatica (Chronic) Anemia (Chronic) Acute exacerbation of CHF (congestive heart failure) (Chronic) Seizure disorder (Chronic) Stroke (Chronic) Coronary artery disease (Chronic) Depression (Chronic) Bipolar disorder (Chronic) Multiple personality disorder (Chronic) Restless legs syndrome (Chronic) Rheumatoid arthritis (Chronic) Generalized anxiety disorder (Chronic) ELENITA on CPAP (Chronic) COPD (chronic obstructive pulmonary disease) (Chronic) Peripheral neuropathy (Chronic) Esophageal reflux (Chronic) Depressive disorder (Chronic) 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 Electronically Signed: Baljeet Chen MD at 14:05 EDT , Service support , Chest X-Ray 09/29/20 14:20 IMPRESSION: Findings in keeping with a mild degree of CHF and bibasilar atelectasis. Electronically Signed: Baljeet Chen MD at 15:01 EDT , Service support , Echocardiogram 09/29/20 16:49 Interpretation Summary The study was technically difficult. Left ventricular systolic function is normal. The estimated ejection fraction is 55 %. Severely dilated right ventricle. Moderate global right ventricular systolic dysfunction. Mild (1+) eccentric mitral valve insufficiency. Poor coaptation of the tricuspid valve apparatus. Moderately severe (3+) tricuspid valve insufficiency. Calcified aortic root. Unable to estimate RV systolic pressure due to insufficient tricuspid regurgitant envelope. No evidence for diastolic dysfunction. Ordering Physician: Lazaro Lee Referring Physician: Bailey Toribio Performed By: Rosemary Sanchez, [facility] Chest X-Ray 09/30/20 17:00 IMPRESSION: Basilar atelectasis/infiltrates bilaterally. Electronically Signed: Tao Simpson DO at 18:41 EDT Tel [phone], Service support , Microbiology 10/02/20 19:17 Mucosa - Nose SARS-CoV-2 Antigen (Rapid) - Final Operations: None Summary of Care Provided: Patient is a 74-year-old female who who was admitted on 09/29/2020 for hypoxic respiratory failure secondary to acute on chronic diastolic CHF, status post seizure and CKD stage IV. Patient presentation has improved much from yesterday as she is no longer short of breath, however it is difficult to asses for patient mentation and comprehension due to apparent lethargy and inability to engage in conversation. Dr. Steward believes that patient therapy has been maximized while she has been admitted and is cleared to go to the correction. Dialysis will not be required at this time due to the patient's GFR maintaining at above 20. Dr. Steward would like to see the patient upon discharge. It is also recommended that the patient follow-up with a neurologist upon discharge. Patient will be discharged to [facility] later on today. 1) Acute hypoxic respiratory failure secondary to acute on chronic diastolic CHF Assessment - Echo with a EF of 55% and severely dilated right ventricle, suggestive of cor pulmonale - Norvasc continued, BP stable - Current weight 254, down 5 pounds from admission - Shortness of breath has resolved Plan - Lasix discontinued on discharge - Demadex, lisinopril, Norvasc, Toprol, isosorbide mononitrate continued on discharge - Discharge to [facility] today 2) Post ictal S/P seizure Assessment - The ED demonstrates no seizure-like activity - Considering encephalopathy secondary to uremia or hypoglycemia Plan -Continue Vimpat 3) DM2/Morbid obesity Assessment - Blood sugar 146 - Stable Plan - Insulin regimen continued upon discharge - Follow-up with primary care provider within the next 2 weeks 4) CKD 4 Assessment - Creatinine clearance 21 mL/min - Estimated GFR 25 - No chronic dialysis at this time per nephrology - 24-hour total protein about 3 g Plan - Dialysis not necessary at this time, as the GFR is maintaining above 20 - Follow-up with Dr. Steward within the next 2 weeks 5) Iron Deficiency anemia Assessment - Hemoglobin 10 - Iron 35 - TIBC 338 - Iron saturation 10.4 Plan - Iron replacement continued on discharge DVT Prophylaxis -SC heparin Patient seen by Alfred Liang PA-C, under the supervision of Dr. Blanton. Patient Problems: Active and Suspected Problems Debility (Acute) Shortness of breath (Acute) ELENITA (obstructive sleep apnea) (Acute) Morbid obesity with BMI of 50.0-59.9, adult (Acute) Iron deficiency anemia (Acute) Bradycardia (Acute) UTI (urinary tract infection) (Acute) Dehydration (Acute) Acute renal failure (Acute) DEBBIE (acute kidney injury) (Acute) Breakthrough seizure (Acute) Acute respiratory failure with hypoxia (Acute) Thrombocytopenia (Acute) Subjective: Patient is a 74-year-old female who is sitting in the chair, alert and oriented x2. Difficult to ask assess patient mentation as she appears very lethargic and just appears to stare blankly. Denies any chest pain, shortness of breath, palpitations, fever, chills, N/V/D. - Physical Exam Vitals/I&O's: Vital Signs Temp Pulse Resp BP Pulse Ox 97.8 F 67 16 143/58 H 100 10/07/20 08:50 10/07/20 12:00 10/07/20 08:50 10/07/20 08:50 10/07/20 08:50 Oxygen Flow Rate (L/min) 2 Oxygen Delivery Method Nasal Cannula Weight: 254 lb 6.615 oz Body Mass Index (BMI) 50.8 Finger Stick Blood Glucose 410 Intake and Output for Last 24 Hours 10/05/20 10/06/20 10/07/20 23:59 23:59 23:59 Intake Total 680 / 800 580 / 580 200 / 200 Output Total 800 / 800 1350 / 1650 1150 / 1150 Balance -120 / 0 -770 / -1070 -950 / -950 General: Alert, Oriented x3, Cooperative, Lethargic HEENT: Atraumatic, PERRLA, EOMI, Normocephalic Neck: Supple, No JVD, Negative Carotid Bruits Lungs: Diminished, Rales - Bilateral basilar crackles evident on auscultation Cardiovascular: Regular rate, No murmurs Abdomen: Bowel Sounds Present, Soft, Non Tender Extremities: Edema - Leg edema present bilaterally around the knees and thighs Skin: No rashes, No breakdown Musculoskeletal: No Tenderness to Palpation of Joints or Extremities Neurological: Cranial nerves II-XII grossly intact Psych/Mental Status: Depressed, - - Lethargic Laboratory Results 10/06/20 16:12: POC Glucose 163 H 10/06/20 21:13: POC Glucose 92 10/07/20 06:30: Sodium 136, Potassium 5.1, Chloride 104, Carbon Dioxide 27.0, Anion Gap 5, BUN 55 H, Creatinine 2.14 H, Estim Creat Clear Calc 16.57, Est GFR (MDRD) Af Amer 29 L, Est GFR (MDRD) Non-Af 24 L, BUN/Creatinine Ratio 25.7 H, Glucose 97, Calcium 8.8, Total Bilirubin 1.00, AST 35, ALT 27, Alkaline Phosphatase 78, Total Protein 5.8 L, Albumin 2.2 L, Globulin 3.6, Albumin/Globulin Ratio 0.6 L 10/07/20 07:02: POC Glucose 83 10/07/20 11:04: POC Glucose 146 H Current Medications Acetaminophen (Acetaminophen 325 Mg Tablet) 650 mg PO Q6H PRN PRN PRN Reason: Pain Score 1-10 Last Admin: 10/07/20 05:20 Dose: 650 mg Documented by: Amlodipine Besylate (Amlodipine 10 Mg Tablet) 10 mg PO DAILY [facility] Last Admin: 10/07/20 08:48 Dose: 10 mg Documented by: Aspirin (Aspirin 81 Mg Tab.Chew) 81 mg PO DAILYCM [facility] Last Admin: 10/07/20 08:48 Dose: 81 mg Documented by: Atorvastatin Calcium (Atorvastatin Calcium 10 Mg Tablet) 10 mg PO QHS [facility] Last Admin: 10/06/20 21:23 Dose: 10 mg Documented by: Dextrose (Dextrose 50%-Water 25 Gm/50 Ml Disp.Syrin) 0 gm IV X1 PRN; Protocol PRN Reason: Hypoglycemia Escitalopram Oxalate (Escitalopram Oxalate 10 Mg Tablet) 10 mg PO DAILY [facility] Last Admin: 10/07/20 08:48 Dose: 10 mg Documented by: Ferrous Sulfate (Ferrous Sulfate 325 Mg Tablet) 325 mg PO 1200,1700 [facility] Last Admin: 10/07/20 11:04 Dose: 325 mg Documented by: Furosemide (Furosemide 40 Mg Tablet) 40 mg PO BID@1000,1800 [facility] Last Admin: 10/07/20 08:48 Dose: 40 mg Documented by: Glucagon (Glucagon 1 Mg/Ml Syringe) 1 mg IM .X1 PRN PRN Reason: Hypoglycemia Heparin Sodium (Porcine) (Heparin Injection (Vial) 5,000 Unit/Ml Vial) 5,000 unit SC Q8 [facility] Last Admin: 10/07/20 05:20 Dose: 5,000 unit Documented by: Sodium Chloride () 250 mls @ 15 mls/hr IV .[id number] PRN PRN Reason: Saline Flush Last Infusion: 10/02/20 07:36 Dose: Infused Documented by: Sodium Chloride () 250 mls @ 15 mls/hr IV .[id number] PRN PRN Reason: Additional IVPB Infusion Insulin Glargine (Insulin Glargine 100 Units/Ml Pen) 5 units SC BREAKFAST [facility] Last Admin: 10/07/20 08:49 Dose: 5 u Documented by: Insulin Glargine (Insulin Glargine 100 Units/Ml Pen) 5 units SC QHS [facility] Last Admin: 10/06/20 21:22 Dose: Not Given Documented by: Insulin Human Lispro (Insulin Lispro 100 Unit/Ml Insuln.Pen) 0 unit SC ACHS [facility]; Protocol Last Admin: 10/07/20 11:04 Dose: Not Given Documented by: Insulin Human Lispro (Insulin Lispro 100 Unit/Ml Insuln.Pen) 5 unit SC BREAKFAST [facility] Last Admin: 10/07/20 08:05 Dose: Not Given Documented by: Insulin Human Lispro (Insulin Lispro 100 Unit/Ml Insuln.Pen) 5 unit SC DINNER [facility] Last Admin: 10/06/20 16:13 Dose: 5 u Documented by: Insulin Human Lispro (Insulin Lispro 100 Unit/Ml Insuln.Pen) 5 unit SC LUNCH [facility] Last Admin: 10/07/20 12:12 Dose: 5 u Documented by: Lacosamide (Lacosamide 100 Mg Tablet) 100 mg PO DAILY [facility] Last Admin: 10/07/20 09:30 Dose: 100 mg Documented by: Metoprolol Succinate (Metoprolol(Xl)Succ 25 Mg Tablet) 75 mg PO DAILY [facility] Last Admin: 10/07/20 08:51 Dose: 75 mg Documented by: Nystatin (Nystatin Powder 15gm Bottle) 1 applic TOPICAL TID [facility]; Protocol Last Admin: 10/07/20 05:21 Dose: 1 appful Documented by: Polyethylene Glycol (Polyethylene Glycol 3350 17 Gm Packet) 17 gm PO BID [facility] Last Admin: 10/07/20 08:57 Dose: Not Given Documented by: Sodium Chloride (0.9% Saline Lock 10 Ml Syringe) 10 - 40 ml IV UD PRN PRN Reason: SALINE FLUSH Last Admin: 10/04/20 16:51 Dose: 10 ml Documented by: Discharge Diet: Renal Diet Discharge Activity: Return to Normal Activity Home Medications: Medications to take at Discharge Isosorbide Mononitrate [Isosorbide Mononitrate ER] 30 mg PO DAILY 04/10/15 Insulin Lispro [Humalog KwikPen] 5 unit SUBCUT TIDCM 06/10/19 Insulin Glargine [Lantus SoloStar Pen] 16 units SUBCUT BID 06/29/19 traZODone [Desyrel] 25 mg PO QHS 06/29/19 Atorvastatin Calcium [Lipitor] 10 mg PO QHS 09/06/19 Ergocalciferol [Vitamin D] 50,000 unit PO KELLOGG 09/06/19 Gabapentin [Neurontin] 200 mg PO BID #0 09/06/19 Escitalopram Oxalate [Lexapro] 10 mg PO DAILY 05/05/20 Lisinopril [Prinivil] 10 mg PO DAILY 05/05/20 Torsemide [Demadex] 40 mg PO BID 05/05/20 Metoprolol Succinate [Toprol Xl] 75 mg PO DAILY 08/17/20 Amlodipine Besylate [Norvasc] 10 mg PO DAILY 09/29/20 Aspirin 81 mg PO DAILY 09/29/20 Lacosamide [Vimpat] 100 mg PO DAILY 09/29/20 Primary Care Physician: Bailey Toribio MD [Primary Care Provider] - Please follow up with your Primary Care Physician in: Within the next 2 weeks Please Follow Up With: Dr. Steward, nephrology When: Within the next 2 weeks Please Follow Up With: Neurology When: Within the next 2 weeks Disposition: Care Home facility Minutes spent on discharge:: 35 Patient Condition:: Stable Medical Necessity - Tobacco Use Smoking Status: Former smoker Tobacco Use: Cigarettes Meaningful Use Info Meaningful Use Diagnoses (Choose all that apply): None applicable <Osman Blanton - Last Filed: 10/08/20 15:39> Discharge Date and Diagnosis - Primary Discharge Diagnosis Acute Problems: Active Problems Debility (Acute) Shortness of breath (Acute) ELENITA (obstructive sleep apnea) (Acute) Morbid obesity with BMI of 50.0-59.9, adult (Acute) Iron deficiency anemia (Acute) Bradycardia (Acute) UTI (urinary tract infection) (Acute) Dehydration (Acute) Acute renal failure (Acute) DEBBIE (acute kidney injury) (Acute) Breakthrough seizure (Acute) Acute respiratory failure with hypoxia (Acute) Thrombocytopenia (Acute) - Secondary Discharge Diagnosis Chronic Problems: Chronic Problems CKD (chronic kidney disease) stage 4, GFR 15-29 ml/min (Chronic) Sciatica (Chronic) Anemia (Chronic) Acute exacerbation of CHF (congestive heart failure) (Chronic) Seizure disorder (Chronic) Stroke (Chronic) Coronary artery disease (Chronic) Depression (Chronic) Bipolar disorder (Chronic) Multiple personality disorder (Chronic) Restless legs syndrome (Chronic) Rheumatoid arthritis (Chronic) Generalized anxiety disorder (Chronic) ELENITA on CPAP (Chronic) COPD (chronic obstructive pulmonary disease) (Chronic) Peripheral neuropathy (Chronic) Esophageal reflux (Chronic) Depressive disorder (Chronic) 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 I have independently interviewed and examined the patient and reviewed pertinent history, examination findings, laboratory and plan of management. I have reviewed the note and agree with the documented findings with the few additional points. In brief, patient is admitted for acute hypoxic respiratory failure secondary to acute on chronic diastolic heart failure and right ventricular failure. 2D echo was done shows EF 55% with severely dilated RV consistent with cor pulmonale. Patient has history of obstructive sleep apnea and needs formal sleep study. CKD stage IV with uremia, mild metabolic encephalopathy: Patient had temporary dialysis right IJ was inserted on 09/30 which was removed on 10/03. Vein mapping ordered by sheeting puller. Patient 24-hour total protein about 3 g, creatinine clearance 21 mL/min. Discussed with the sheeting puller. Overall GFR remains 15 to 16 mL/min. Discussed with the patient's daughter who works in T[employer]. Hospital clinical course and follow-up with Dr. Steward discussed. Patient might need permanent dialysis in the near future. Patient other comorbidities include steroid-induced type II, morbid obesity, anxiety, depression diagnosis anemia: As mentioned above Discharge medication reconciliation done. Discharge follow-up instructions completed. Discharge process discussed with the patient and all questions were answered to patient's satisfaction. Total time spent, exact 35 minutes on discharge meds reconciliation, examination, coordination of care with nurses and ancillary staff, review of imaging and blood test and discussion with the patient on follow-up instructions I have discussed my assessment with Alfred Durate, PA and orders have been reviewed. [] Objective: Seen and examined. Shortness of breath has improved. No chest pain. On 2 L of oxygen, pulse ox 100%. General: Alert, Oriented x3, Cooperative HEENT: Atraumatic, PERRLA, EOMI, Normocephalic Oral: No Gingival or Mucosal Lesions/ Ulcerations Neck: Supple, No JVD, Negative Carotid Bruits Lungs: Air entry diminished in bilateral lung bases. No crepitation/rhonchi Cardiovascular: Regular rate, Regular Rhythm, Normal S1, Normal S2, systolic murmur over LLSB Abdomen: Bowel Sounds Present, Soft, Non Tender, Non-Distended : No renal angle tenderness. No suprapubic tenderness. Extremities: Bilateral leg edema, improved, Capillary Refill Less than 3 Seconds Skin: No rashes, No breakdown Musculoskeletal: No Tenderness to Palpation of Joints or Extremities Neurological: Cranial nerves II-XII grossly intact, Deep Tendon Reflexes 2+/4 and Symmetrical, Neuro grossly intact Psych/Mental Status: Normal Affect, Appropriate. - Physical Exam Vitals/I&O's: Vital Signs Temp Pulse Resp BP Pulse Ox 97.8 F 64 18 152/75 H 100 10/07/20 13:05 10/07/20 13:05 10/07/20 13:05 10/07/20 13:05 10/07/20 13:05 Oxygen Flow Rate (L/min) 2 Oxygen Delivery Method Nasal Cannula Weight: 254 lb 6.615 oz Body Mass Index (BMI) 50.8 Finger Stick Blood Glucose 410 Intake and Output for Last 24 Hours 10/06/20 10/07/20 10/08/20 23:59 23:59 23:59 Intake Total 580 / 580 200 / 200 Output Total 1350 / 1650 1150 / 1150 Balance -770 / -1070 -950 / -950 Inpatient E&M: [id number] Disch Hosp
--- NOTE | 2020-10-07 14:05 | NURSING ---
report called to ERICA Villalobos at [facility] for discharge.
== END 2020-10-07 13:46 | disposition skilled nursing facility (03) | DRG 291 ==
LOC: ED 15:00 → PCU 16:21
PROVIDERS: Internal Medicine Nephrology; Physician Assistant; Admitting Provider Family Medicine; Emergency Provider Emergency Medicine; PCP Internal Medicine; Visit Provider Internal Medicine
DX: I13.0 Hypertensive heart and chronic kidney disease with heart failure and stage 1 through stage 4 chronic kidney disease, or unspecified chronic kidney disease (principal); I50.33 Acute on chronic diastolic (congestive) heart failure; J96.01 Acute respiratory failure with hypoxia; G93.41 Metabolic encephalopathy; N18.4 Chronic kidney disease, stage 4 (severe); Z68.43 Body mass index [BMI] 50.0-59.9, adult; I50.82 Biventricular heart failure; I27.81 Cor pulmonale (chronic); D50.9 Iron deficiency anemia, unspecified; R00.1 Bradycardia, unspecified; Z20.822 Contact with and (suspected) exposure to COVID-19; E87.5 Hyperkalemia; E11.22 Type 2 diabetes mellitus with diabetic chronic kidney disease; G40.909 Epilepsy, unspecified, not intractable, without status epilepticus; E11.65 Type 2 diabetes mellitus with hyperglycemia; E11.42 Type 2 diabetes mellitus with diabetic polyneuropathy; D69.6 Thrombocytopenia, unspecified; I25.10 Atherosclerotic heart disease of native coronary artery without angina pectoris; J44.9 Chronic obstructive pulmonary disease, unspecified; E78.5 Hyperlipidemia, unspecified; M06.9 Rheumatoid arthritis, unspecified; G25.81 Restless legs syndrome; G47.33 Obstructive sleep apnea (adult) (pediatric); K21.9 Gastro-esophageal reflux disease without esophagitis; F44.81 Dissociative identity disorder; F31.9 Bipolar disorder, unspecified; F41.1 Generalized anxiety disorder; E66.01 Morbid (severe) obesity due to excess calories; Z79.82 Long term (current) use of aspirin; Z79.4 Long term (current) use of insulin; Z79.899 Other long term (current) drug therapy; Z86.14 Personal history of Methicillin resistant Staphylococcus aureus infection; Z86.73 Personal history of transient ischemic attack (TIA), and cerebral infarction without residual deficits; Z87.891 Personal history of nicotine dependence
CPT/HCPCS: 36415; 51702; 70450; 71045; 80048; 80053; 80069; 81001; 81050; 82575; 82728; 82962; 83540; 83550; 83605; 83880; 83970; 84100; 84156; 84443; 84484; 85025; 85610; 85730; 86706; 87340; 87426; 90937; 93005; 93306; 95819; 97110; 97116; 97163; 97166; 97530; 97535; 99285; J7030; J7050; Q9957; A4216; C1752; G0257; J1940; J2916

== ENCOUNTER 2020-10-13 15:15 | Inpatient (IN) | payer MEDICARE, MEDICAID, SELFPAY ==
[2020-09-29 17:17] VITALS: BMI 50.8
[2020-10-13] VITALS (7 sets, daily range): BP systolic 103–131; BP diastolic 31–79; PULSE 50–61; RESP 13–24; TEMP 36.4–37.1; O2SAT 92–100; BMI 51.6; BMI 50.8
--- NOTE | 2020-10-13 15:28 | EKG12_ITS ---
Test Reason : EDEMA Blood Pressure : / mmHG Vent. Rate : 055 BPM Atrial Rate : 055 BPM P-R Int : 162 ms QRS Dur : 076 ms QT Int : 450 ms P-R-T Axes : 021 069 040 degrees QTc Int : 430 ms Sinus bradycardia Low voltage QRS Septal infarct , age undetermined Abnormal ECG Confirmed by DUTCH BOWMAN, ANTONIA ([id number]), image editor RADHA TAPIA ([id number]) on 10/14/2020 1:06:49 PM Referred By: OTIS Confirmed By:ANTONIA JUDD MD
--- NOTE | 2020-10-13 15:30 | ED.VIS.GEN ---
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 Review of records indicates she has history of chronic diastolic congestive heart failure. She presents because of increased shortness of breath at rest and unable to walk more than 2 ft without becoming winded. She states a month ago she was able to get up to go to a chair or walk around. She does report weight gain. She reports significant swelling. She denies fever, chills night sweats. Denies ocular, visual or auditory symptoms. She denies trouble with speech or swallowing. She denies chest discomfort of any type. She denies PND. She denies abdominal pain. She does report abdominal swelling. She denies nausea, vomit or diarrhea. She denies dysuria, frequency, urgency or hematuria. Prior similar symptoms: Yes Recent Illness/Hospitalization: No - Past Medical History (1) Debility Status: Acute (2) Intractable low back pain Status: Acute (3) Iron deficiency anemia Status: Acute (4) Morbid obesity with BMI of 50.0-59.9, adult Status: Acute (5) ELENITA (obstructive sleep apnea) Status: Acute (6) Thrombocytopenia Status: Acute (7) Bipolar disorder Status: Chronic (8) CKD (chronic kidney disease) stage 4, GFR 15-29 ml/min Status: Chronic (9) COPD (chronic obstructive pulmonary disease) Status: Chronic (10) Cerebrovascular disease Status: Chronic Comment: Status post acute ischemic stroke No residual deficit (11) Coronary artery disease Status: Chronic (12) Depression Status: Chronic (13) Diabetes type 2, uncontrolled Status: Chronic (14) Esophageal reflux Status: Chronic (15) Generalized anxiety disorder Status: Chronic (16) Hyperlipidemia Status: Chronic (17) Peripheral neuropathy Status: Chronic (18) Restless legs syndrome Status: Chronic (19) Rheumatoid arthritis Status: Chronic (20) Stroke Status: Chronic Past Medical History - Allergies and Home Meds Allergies/Adverse Reactions: Allergies ciprofloxacin [From Cipro] Allergy (Verified 10/13/20 15:20) Rash codeine Allergy (Verified 10/13/20 15:20) Shortness of breath Penicillins Allergy (Verified 10/13/20 15:20) Hives CILLINS Allergy (Uncoded 10/13/20 15:20) Unknown Primary Care Physician: Bailey Toribio MD [Primary Care Provider] - Prior records reviewed: Yes Surgical History: appendectomy, cataract, cholecystectomy, hysterectomy, tonsillectomy, - - Glaucoma, abdominal surgery for cyst. Lives: [facility] Smoking Status: Former smoker Alcohol: None Drugs: None - Family History Maternal Family History: Reports: Cancer, Diabetes, Heart Disease, Hypertension Paternal Family History: Reports: Cancer, Heart Disease Review of Systems General: Reports: Malaise. Denies: Chills, Fever, Subjective, Sweats, Weight loss - She reports weight gain Eyes: Denies: Visual changes - bilaterally, Blurred Vision - bilaterally ENT: Reports: - - Denies trouble with speech or swallowing.. Denies: Bilateral ear pain, Right ear pain, Rhinorrhea, Sore throat Cardiovascular: Denies: Chest pain, Palpitations, Heart racing Respiratory: Reports: Dyspnea, Dyspnea on exertion, Orthopnea. Denies: Cough, Sputum, Paroxysmal nocturnal dyspnea Gastrointestinal: Denies: Abdominal pain, Nausea, Vomiting, Diarrhea, Melena, Hematochezia Genitourinary: Denies: Dysuria, Hematuria, Frequency Musculoskeletal: Reports: Swelling. Denies: Myalgias, Arthralgias, Extremity Pain Skin: Denies: Rash, Wounds Neurological: Reports: Weakness, Parasthesia. Denies: Headache Psych: Reports: Depression Endocrine: Denies: Polyuria, Polydipsia Hematologic: Denies: Easy bruising, Easy bleeding Allergy: Denies: Uticaria, Swelling of the mouth, Swelling of the tongue Physical Exam Vital Signs/Narrative: Vital Signs Temp Pulse Resp BP Pulse Ox 10/13/20 15:16 97.6 F L 57 L 16 112/79 95 Inital Vital Signs reviewed: Yes General: Well nourished, Well developed, Obese, Acute Distress Head: Normocephalic, Atraumatic Eyes: Perrl, EOMI, Pale conjunctiva. Negative for: Scleral icterus ENT: Moist mucous membranes, No rhinorrhea. Negative for: Sinus tenderness Neck: Supple, Nontender, No lymphadenopathy, No JVD - Determine because of body habitus. Cardiovascular: Regular rate, Regular rhythm, No murmurs, Normal S1, Normal S2 Respiratory: Chest nontender, Rales - Bilaterally.. Negative for: No distress, CTA bilaterally Abdomen: Soft, Nontender, Nondistended, Normal bowel sounds Rectal: Deferred Back: Normal Inspection. Negative for: Nontender, CVA tenderness Extremities: Nontender, Edema - Significant pitting edema of both lower extremities, abdomen, sacral area Skin: No rash, Pallor. Negative for: Cyanosis, Diaphoresis Neurological: Alert, Oriented x3, Cranial nerves II-XII grossly intact, Normal Strength, Normal Sensation. Negative for: Normal Gait Psychological: Depressed Diagnostic/Tx/Re-eval Chest X-Ray - ED: 1 View, Read by ED Physician, Chronic Changes, Cardiomegaly, CHF, Right Effusion 10/13/20 16:03 Chest 1 View (Portable) [RAD] Stat Laboratory Results 10/13/20 10/13/20 10/13/20 15:39 15:39 15:39 WBC 5.9 RBC 2.79 L Hgb 8.8 L Hct 28.9 L MCV 103.6 H MCH 31.5 MCHC 30.4 L RDW Std Deviation 58.2 H RDW Coeff of Kusum 15.3 H Plt Count 117 L MPV 11.3 Immature Gran % (Auto) 0.500 Neut % (Auto) 67.3 Lymph % (Auto) 15.9 L [place] % (Auto) 12.4 H Eos % (Auto) 3.2 Baso % (Auto) 0.7 Absolute Neuts (auto) 4.0 Absolute Lymphs (auto) 0.94 Nucleated RBC % 0 Sodium 136 Potassium 4.6 Chloride 100 Carbon Dioxide 31.0 Anion Gap 5 BUN 76 H Creatinine 2.81 H Estim Creat Clear Calc 12.62 Est GFR (MDRD) Af Amer 21 L Est GFR (MDRD) Non-Af 17 L BUN/Creatinine Ratio 27.0 H Glucose 95 Calcium 8.4 L Total Bilirubin 0.40 AST 53 H ALT 44 Alkaline Phosphatase 102 Troponin I < 0.015 B-Natriuretic Peptide 269.8 H Total Protein 6.5 Albumin 2.5 L Globulin 4.0 Albumin/Globulin Ratio 0.6 L Hemoglobin is lower than normal however I feel this is due to dilution since she is significantly fluid overloaded. Her renal function has gotten worse from prior. - EKG Initial EKG Interpretation: Sinus Bradycardia - Bradycardia with a ventricular rate of 55. OR interval is 160 ms. QRS duration 76 ms. QT duration 4 to 50 ms. Charlotte is normal. There is decreased anterior forces. There is also low voltage, which is probably due to body habitus. - Medical Decision Making Patient presents with orthopnea over the past 2 to 3 weeks, increased edema and weight gain and rales bilaterally. Concern patient has anasarca due to a combination of renal disease and exacerbation of congestive heart failure. EKG was obtained to rule out acute cardiac ischemia as well as troponin. BNP was ordered to confirm CHF. CBC to rule out anemia. Competence of metabolic panel to assess hepatic enzymes as well as renal function and compared to prior. ED Disposition - Plan for ED Patient: Disposition: Acute Care Hospital [facility] Diagnosis: Anasarca associated with disorder of kidney, Acute on chronic diastolic (congestive) heart failure, Pleural effusion, right Referrals: Bailey Toribio MD [Primary Care Provider] -
[2020-10-13 15:49] LABS: Absolute Lymphocyte Count 0.94 X10^3/uL (0.83-4.51); Basophil# 0.04 X10^3/uL; Basophil% 0.7 % (0-1); Eosinophil# 0.19 X10^3/uL; Eosinophils% 3.2 % (0-5); Hematocrit 28.9 % (37-47); Hemoglobin 8.8 g/dL (12.0-15.0); Lymphocyte # 0.94 X10^3/ul (4.0); Lymphocyte % 15.9 % (19-41); Mean Corp Hgb Conc 30.4 g/dL (32-36); Mean Corpuscular Hgb 31.5 pg (27.0-32.0); Mean Corpuscular Volume 103.6 fL (81-99); Mean Platelet Vol. 11.3 fl (6.2-12.0); Monocyte# 0.73 X10^3/uL; Monocyte% 12.4 % (0-10); NRBC Flagged by Analyzer 0 % (0-5); Neutrophil # 3.97 X10^3/uL (2.7-7.7); Neutrophil % 67.3 % (47-70); Platelet Count 117 K/mm3 (150-450); RBC Distribution Width CV 15.3 % (11.6-14.6); RBC Distribution Width SD 58.2 fl (35.1-43.9); Red Blood Count 2.79 M/mm3 (4.2-5.4); White Blood Count 5.9 K/mm3 (4.4-11.0)
[2020-10-13] MEDS: Furosemide 100 MG/10 ML Vial 60 MG IV (15:56)
--- NOTE | 2020-10-13 16:03 | RAD_ITS ---
STUDY: X-RAY CHEST REASON FOR EXAM: Female, 74 years old. Dyspnea, edema and bilateral rales TECHNIQUE: Frontal view COMPARISON: 09/30/2020 FINDINGS: The lungs are not fully expanded. Moderate right pleural effusion. Basilar infiltrate cannot be excluded. Left lower lobe scarring and possible retrocardiac infiltrate. Normal size heart. Normal mediastinum and elva. Normal visualized pulmonary arteries. Calcified aortic arch and descending thoracic aorta. Normal visualized thoracic spine. Normal visualized ribs, clavicles, and shoulders. There is no demonstrated abnormality of the visualized soft tissue structures of the upper abdomen. RAD/Chest 1 View (Portable) IMPRESSION: Moderate right pleural effusion. Basilar infiltrate cannot be excluded. Left lower lobe scarring and possible retrocardiac infiltrate. Electronically Signed: Tao Simpson DO at 17:33 EDT Tel [phone], Service support ,
[2020-10-13 16:05] LABS: ALB/GLOB Ratio 0.6 RATIO (0.9-2.4); AST(SGOT) 53 U/L (15-37); Alanine Aminotransfer ALT/SGPT 44 U/L (13-56); Albumin, Serum 2.5 g/dL (3.2-5.0); Alkaline Phosphatase 102 U/L (45-117); Anion Gap 5 (5-15); BUN 76 mg/dL (7-18); Calcium,Total 8.4 mg/dL (8.5-10.1); Chloride 100 mmol/L (98-107); Creatinine, Serum 2.81 mg/dL (0.55-1.02); EST Glomerular Filtration Rate 17 mL/min (>60); Est Glom Filt Rate - Afr Amer 21 mL/min (>60); Estimated Creatinine Clearance 12.62 ml/min; Glucose 95 mg/dL (74-106); Potassium 4.6 mmol/L (3.5-5.1); Protein, Total 6.5 g/dL (6.4-8.2); Sodium Level 136 mmol/L (136-145)
[2020-10-13 16:23] LABS: BNP,B-Type NATRIURETIC PEPTIDE 269.8 pg/mL (0-100)
[2020-10-13] MEDS: Metolazone 2.5 MG Tablet PO (16:24)
--- NOTE | 2020-10-13 16:50 | NURSING ---
PCU CHANG ACUTE ON CHRONIC CHF, ANASARCA DUE TO RENAL
--- NOTE | 2020-10-13 17:07 | PCM.HP.STD ---
<Lesly Carter MANAGER OF ENVIRONMENTAL SERVICES - Last Filed: 10/13/20 17:26> Problem List (1) Bipolar disorder Status: Chronic (2) CKD (chronic kidney disease) stage 4, GFR 15-29 ml/min Status: Chronic (3) COPD (chronic obstructive pulmonary disease) Status: Chronic (4) Cerebrovascular disease Status: Chronic Comment: Status post acute ischemic stroke No residual deficit (5) Coronary artery disease Status: Chronic (6) Depression Status: Chronic Qualifiers: Depression Type: major depressive disorder Major depression recurrence: unspecified whether recurrent (7) Diabetes type 2, uncontrolled Status: Chronic (8) Esophageal reflux Status: Chronic (9) Generalized anxiety disorder Status: Chronic (10) Hyperlipidemia Status: Chronic (11) Iron deficiency anemia Status: Chronic (12) Peripheral neuropathy Status: Chronic (13) Restless legs syndrome Status: Chronic (14) Rheumatoid arthritis Status: Chronic (15) Thrombocytopenia Status: Chronic (16) Hypertension Status: Chronic (17) Multiple personality disorder Status: Chronic (18) ELENITA on CPAP Status: Chronic (19) Obesity Status: Chronic Qualifiers: Obesity type: due to excess calories (20) Personal history of Methicillin resistant Staphylococcus aureus infection Status: Chronic (21) Seizure disorder Status: Chronic History of Present Illness Date of Admission: 10/13/20 Chief Complaint: Weight gain, increased swelling, shortness of breath. The patient is a 74 year old F who presents to emergency room due to increased weight gain, shortness of breath and increased swelling. Patient was recently discharged 10/07/20 following treatment for acute on chronic diastolic CHF complicated by chronic kidney disease stage IV. Patient was discharged to SNF and states she feels she has been worsening since that time. Patient has pitting edema from her lower extremities up to her abdomen. She has not been requiring oxygen however feels short of breath. Reports wet, nonproductive cough. Denies fever, chills. Denies bowel or urinary symptoms. No other symptoms or complaints. Patient states during her recent visit she temporary dialysis catheter was placed and subsequently removed prior to discharge. She has a past medical history of chronic heart failure with preserved ejection fraction, chronic kidney disease stage IV, type 2 diabetes mellitus, ELENITA on CPAP, chronic COPD, morbid obesity, hypertension, hyperlipidemia, GERD, history of CVA, rheumatoid arthritis, bipolar disorder/depression, anemia of chronic disease, seizure disorder. Past Medical History Past Medical History (Chronic Problems): Chronic Problems Thrombocytopenia (Chronic) Seizure disorder (Chronic) CKD (chronic kidney disease) stage 4, GFR 15-29 ml/min (Chronic) Iron deficiency anemia (Chronic) Coronary artery disease (Chronic) Depression (Chronic) Bipolar disorder (Chronic) Multiple personality disorder (Chronic) Restless legs syndrome (Chronic) Rheumatoid arthritis (Chronic) Generalized anxiety disorder (Chronic) ELENITA on CPAP (Chronic) COPD (chronic obstructive pulmonary disease) (Chronic) Peripheral neuropathy (Chronic) Esophageal reflux (Chronic) Personal history of Methicillin resistant Staphylococcus aureus infection (Chronic) Obesity (Chronic) Hypertension (Chronic) Diabetes type 2, uncontrolled (Chronic) Hyperlipidemia (Chronic) Cerebrovascular disease (Chronic) Status post acute ischemic stroke No residual deficit Allergies ciprofloxacin [From Cipro] Allergy (Verified 10/13/20 15:20) Rash codeine Allergy (Verified 10/13/20 15:20) Shortness of breath Penicillins Allergy (Verified 10/13/20 15:20) Hives CILLINS Allergy (Uncoded 10/13/20 15:20) Unknown Home Medications: Ambulatory Orders Medication Instructions Recorded Insulin Lispro [Humalog KwikPen] 5 unit SUBCUT TIDCM 06/10/19 traZODone [Desyrel] 25 mg PO QHS 06/29/19 Atorvastatin Calcium [Lipitor] 10 mg PO QHS 09/06/19 Ergocalciferol [Vitamin D] 50,000 unit PO KELLOGG 09/06/19 Gabapentin [Neurontin] 200 mg PO BID #0 09/06/19 Escitalopram Oxalate [Lexapro] 10 mg PO DAILY 05/05/20 Torsemide [Demadex] 40 mg PO BID 05/05/20 Amlodipine Besylate [Norvasc] 10 mg PO DAILY 09/29/20 Aspirin 81 mg PO DAILY 09/29/20 Lacosamide [Vimpat] 100 mg PO DAILY 09/29/20 Acetaminophen [Tylenol] 650 mg PO Q4H PRN 10/13/20 Insulin Glargine,Hum.rec.anlog 16 unit SQ BID 10/13/20 [Basaglar Kwikpen U-100] Isosorbide Mononitrate [Isosorbide 30 mg PO DAILY 10/13/20 Mononitrate ER] Lisinopril [Zestril] 10 mg PO DAILY 10/13/20 Metoprolol Succinate 75 mg PO DAILY 10/13/20 Surgical History: appendectomy, cataract, cholecystectomy, hysterectomy, tonsillectomy, - - Glaucoma, abdominal surgery for cyst. Psychiatric History: Anxiety, Bipolar, Depression, - - Multiple personality disorder. 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 Denies: Chills, Fever, Weight Change HEENT: Denies: Head Aches, Sinus Congestion, Sinus Drainage Cardiovascular: Reports: Edema. Denies: Chest Pain, Palpitations, Syncope Respiratory: Reports: Cough, Shortness of Breath. Denies: Sputum production Gastrointestinal: Denies: Abdominal Pain, Nausea, Vomiting Genitourinary: Denies: Dysuria Musculoskeletal: Denies: Joint Pain, Joint Tenderness Skin: Denies: Rash, Wounds Neurological: Denies: Numbness, Tingling, Focal weakness Psychiatric: Reports: Depression Hematologic/ Lymphatic: Denies: Easy Bruising, Easy Bleeding VTE Information - Inpt Only VTE Present on Admission: No VTE Mechan Device Prophylaxis: None VTE Pharm Prophylaxis ordered?: Yes - Physical Exam Vitals/I&O's: Vital Signs Temp Pulse Resp BP Pulse Ox 97.6 F L 57 L 16 112/79 95 10/13/20 15:16 10/13/20 15:16 10/13/20 15:16 10/13/20 15:16 10/13/20 15:16 Oxygen Delivery Method Room Air Weight: 264 lb 8.875 oz Body Mass Index (BMI) 51.6 Finger Stick Blood Glucose 410 General: Alert, Oriented x3, Cooperative HEENT: Atraumatic, PERRLA, EOMI, Normocephalic Neck: Supple, No JVD, Negative Carotid Bruits Lungs: Diminished, Rales Cardiovascular: Regular rate, No murmurs, Bradycardic Abdomen: Bowel Sounds Present, Soft, Non Tender, Non-Distended, Obese Extremities: No clubbing, No cyanosis, Edema - Pitting edema from lower extremities to abdomen Skin: No rashes, No breakdown Musculoskeletal: No Tenderness to Palpation of Joints or Extremities Neurological: Cranial nerves II-XII grossly intact, Neuro grossly intact Psych/Mental Status: Normal Affect, Appropriate Laboratory Results 10/13/20 15:39: WBC 5.9, RBC 2.79 L, Hgb 8.8 L, Hct 28.9 L, MCV 103.6 H, MCH 31.5, MCHC 30.4 L, RDW Std Deviation 58.2 H, RDW Coeff of Kusum 15.3 H, Plt Count 117 L, MPV 11.3, Immature Gran % (Auto) 0.500, Neut % (Auto) 67.3, Lymph % (Auto) 15.9 L, Pike % (Auto) 12.4 H, Eos % (Auto) 3.2, Baso % (Auto) 0.7, Absolute Neuts (auto) 4.0, Absolute Lymphs (auto) 0.94, Nucleated RBC % 0 10/13/20 15:39: Sodium 136, Potassium 4.6, Chloride 100, Carbon Dioxide 31.0, Anion Gap 5, BUN 76 H, Creatinine 2.81 H, Estim Creat Clear Calc 12.62, Est GFR (MDRD) Af Amer 21 L, Est GFR (MDRD) Non-Af 17 L, BUN/Creatinine Ratio 27.0 H, Glucose 95, Calcium 8.4 L, Total Bilirubin 0.40, AST 53 H, ALT 44, Alkaline Phosphatase 102, Troponin I < 0.015, Total Protein 6.5, Albumin 2.5 L, Globulin 4.0, Albumin/Globulin Ratio 0.6 L 10/13/20 15:39: B-Natriuretic Peptide 269.8 H Assessment/Plan 1. Acute on chronic heart failure with preserved ejection fraction with anasarca, complicated by chronic kidney disease stage IV-BNP 269. Chest x-ray consistent with congestion. Recent echocardiogram 09/30/2020 demonstrated an EF of 55%, moderately severe tricuspid valve insufficiency. IV Lasix. Strict I&O. Daily weight. 2. Chronic kidney disease stage IV-consult nephrology. Trend BMP. 3. Type 2 diabetes [id number]-[id number] with sliding scale insulin. Continue home long-acting regimen. 4. ELENITA on CPAP-continue CPAP. 5. Chronic COPD-as needed albuterol aerosol. 6. Hypertension-continue amlodipine, metoprolol. Hold lisinopril. 7. Hyperlipidemia-continue statin. 8. GERD-not on regimen. 9. History of CVA-on aspirin, statin. 10. Rheumatoid arthritis-not on regimen. 11. Bipolar disorder/depression-on Lexapro. 12. Anemia of chronic disease-stable, trend CBC. 13. Seizure disorder-on Vimpat. 14. Morbid obesity-encouraged diet/lifestyle modifications. DVT prophylaxis-Heparin subcu. CODE STATUS: Discussed with patient and patient's daughter who is healthcare power of director of physical security. DNR CCA no intubation. This patient was seen by EMILIANA Taylor under the supervision of Dr. Saucedo. <Sharron Saucedo E - Last Filed: 10/13/20 17:49> History of Present Illness The patient is a 74 year old F [] Past Medical History Allergies ciprofloxacin [From Cipro] Allergy (Verified 10/13/20 15:20) Rash codeine Allergy (Verified 10/13/20 15:20) Shortness of breath Penicillins Allergy (Verified 10/13/20 15:20) Hives CILLINS Allergy (Uncoded 10/13/20 15:20) Unknown - Physical Exam Vitals/I&O's: Vital Signs Temp Pulse Resp BP Pulse Ox 97.7 F L 61 18 131/62 H 98 10/13/20 17:08 10/13/20 17:08 10/13/20 17:08 10/13/20 17:08 10/13/20 17:08 Oxygen Delivery Method Room Air Weight: 260 lb 2.327 oz Body Mass Index (BMI) 50.8 Finger Stick Blood Glucose 410 Laboratory Results 10/13/20 15:39: WBC 5.9, RBC 2.79 L, Hgb 8.8 L, Hct 28.9 L, MCV 103.6 H, MCH 31.5, MCHC 30.4 L, RDW Std Deviation 58.2 H, RDW Coeff of Kusum 15.3 H, Plt Count 117 L, MPV 11.3, Immature Gran % (Auto) 0.500, Neut % (Auto) 67.3, Lymph % (Auto) 15.9 L, Pike % (Auto) 12.4 H, Eos % (Auto) 3.2, Baso % (Auto) 0.7, Absolute Neuts (auto) 4.0, Absolute Lymphs (auto) 0.94, Nucleated RBC % 0 10/13/20 15:39: Sodium 136, Potassium 4.6, Chloride 100, Carbon Dioxide 31.0, Anion Gap 5, BUN 76 H, Creatinine 2.81 H, Estim Creat Clear Calc 12.62, Est GFR (MDRD) Af Amer 21 L, Est GFR (MDRD) Non-Af 17 L, BUN/Creatinine Ratio 27.0 H, Glucose 95, Calcium 8.4 L, Total Bilirubin 0.40, AST 53 H, ALT 44, Alkaline Phosphatase 102, Troponin I < 0.015, Total Protein 6.5, Albumin 2.5 L, Globulin 4.0, Albumin/Globulin Ratio 0.6 L 10/13/20 15:39: B-Natriuretic Peptide 269.8 H Current Medications Sodium Chloride () 250 mls @ 15 mls/hr IV .[id number] PRN PRN Reason: Saline Flush Sodium Chloride () 250 mls @ 15 mls/hr IV .[id number] PRN PRN Reason: Additional IVPB Infusion Sodium Chloride (0.9% Saline Lock 10 Ml Syringe) 10 - 40 ml IV UD PRN PRN Reason: SALINE FLUSH Assessment/Plan Hospitalist note: I am seeing this patient in conjunction with Lesly Carter. I independently seen and examined the patient. History and physical, laboratory data and imaging studies reviewed and I concur with above admission and treatment plan. Patient presented to the emergency room because of weight gain, edema and shortness of breath. Patient was discharged from the hospital on October 07, 2020 after treatment for acute on chronic CHF complicated by stage IV chronic kidney disease. Patient received temporary hemodialysis during last admission in the kidney function improved. She was discharged on torsemide to SNF. Since discharge, patient has been having increasing swelling of both legs up to both thighs and upper abdomen, associated with weight gain which is not sure how much of this as well as shortness of breath. She reported shortness of breath on moderate exertion, aggravated by any more activity, minimally relieved with rest. She denied chest pain, palpitation, dizziness or lightheadedness. In the emergency department, her vital signs are stable apart from bradycardia which is chronic. Her routine blood work was remarkable for hemoglobin of 8.8 g/dL, platelet count of 117,000, BUN is 76, creatinine is 2.81. EKG revealed sinus bradycardia with low voltage QRS, no acute ischemic changes. Troponin was negative. BNP was 269. Chest x-ray revealed right pleural effusion, pulmonary vascular congestion, I doubt infiltrate or consolidation. She is being admitted for acute on chronic diastolic CHF. - Physical Exam General: Alert, Oriented x3, Cooperative, No apparent distress. HEENT: Atraumatic, PERRLA, EOMI. Neck: Supple, No JVD, Negative Carotid Bruits, Trachea Midline, Thyroid Normal. Lungs: Decreased breath sounds bilateral, faint basilar Rales, no rhonchi or wheezing. Cardiovascular: Regular rate, Regular Rhythm, Normal S1, Normal S2, PMI Normal. Abdomen: Bowel Sounds Present, Soft, Non Tender, Non-Distended, No Hepato-splenomegaly. Extremities: No clubbing, No cyanosis, extensive edema up to upper thighs and upper abdomen, anasarca. Skin: No rashes, No breakdown Neurological: Cranial nerves are intact, neuro grossly intact Vital Signs are stable. Assessment and plan: #1 acute on chronic diastolic CHF/diffuse anasarca: In setting of stage IV chronic kidney disease, kidney function has been worsening as well. During last admission, patient received hemodialysis and she was discharged on torsemide. He had 2D echocardiogram from September 30, 2020 showed ejection fraction of 55%. Plan: Admit to PCU, cardiac monitoring, fluid restriction, start IV Lasix, input output chart, nephrology consult, repeat CBC and BMP tomorrow morning, PT OT evaluation and treatment, patient may need to go for dialysis at this time. #2 stage IV chronic kidney disease: As mentioned above, patient received temporary dialysis during last admission according to the patient. Plan for nephrology consult and patient may need to go for dialysis at this time. #3 other chronic medical problems: Stable, continue current medications as above. This note was generated with [employer] dictation software. It may contain incorrect words, spelling, and punctuation that were not noted in checking the note before signing. Inpatient E&M: [id number] Init Hosp L3
[2020-10-13 18:15] LABS: Bedside Glucose 83 mg/dL (70-110)
[2020-10-13] MEDS: Insulin Lispro 100 UNIT/ML INSULN.PEN SC (18:18)
[2020-10-13 18:55] LABS: International Normalized Ratio 1.2; Prothrombin Time (Protime)PT. 14.9 SECONDS (11.7-14.9)
[2020-10-13] MEDS: Atorvastatin Calcium 10 MG Tablet PO (21:08)
[2020-10-13] MEDS: traZODone 50 MG Tablet 25 MG PO (21:08)
[2020-10-13] MEDS: Furosemide 40 MG/4 ML Vial IV (21:09)
[2020-10-13] MEDS: 0.9% Saline Lock 10 ML Syringe IV (21:11)
[2020-10-13] MEDS: Heparin Injection (Vial) 5,000 UNIT/ML VIAL 5000 UNIT SC (21:11)
[2020-10-13 21:31] LABS: Bedside Glucose 64 mg/dL (70-110)
[2020-10-13 22:21] LABS: Bedside Glucose 70 mg/dL (70-110)
--- NOTE | 2020-10-13 22:56 | EKG12_ITS ---
Test Reason : CHEST PAIN Blood Pressure : / mmHG Vent. Rate : 049 BPM Atrial Rate : 024 BPM P-R Int : 000 ms QRS Dur : 048 ms QT Int : 456 ms P-R-T Axes : 000 026 057 degrees QTc Int : 411 ms Normal sinus rhythm Low voltage QRS Septal infarct , age undetermined Abnormal ECG When compared with ECG of 13-OCT-2020 15:40, MANUAL COMPARISON REQUIRED, DATA IS UNCONFIRMED Confirmed by DUTCH BOWMAN, ANTONIA ([id number]), production editor RADHA TAPIA ([id number]) on 10/14/2020 1:12:35 PM Referred By: TYRONE Confirmed By:ANTONIA JUDD MD
[2020-10-13] MEDS: Dextrose 50%-Water 25 GM/50 ML DISP.SYRIN IV (23:07)
--- NOTE | 2020-10-13 23:08 | RRT_ITS ---
Rapid Response Note - Blank Rapid response was called. Reportedly patient screamed that she needed help. When nursing team arrived patient could not get her worse out. She became unresponsive but she had a pulse and she was breathing. Patient was examined at the bedside. Initially patient would not respond to verbal commands. Later on patient had some mild shakiness. She placed her hand on her left chest and she was screaming. Blood glucose was in the 70s. Ativan 2 mg IV earlier on was ordered but as patient became responsive it was not giving. EKG showed a junctional rhythm with heart rate of 50. Previous EKG showed heart rate of 55. Patient could move all extremities and her strength 5 out of 5 throughout Likely seizure Ativan 2 mg IV as needed ordered. Nursing to check with [facility] [place] where patient lives to see whether patient has received her daily Vimpat. Not nursing to give Vimpat. We will trend troponin We will get a CPK and prolactin. Hypoglycemia Have an amp of D50 ordered.
[2020-10-13 23:21] LABS: Bedside Glucose 76 mg/dL (70-110)
--- NOTE | 2020-10-13 23:44 | NURSING ---
Rapid response was called on patient at 2245 for becoming unresponsive. wanted this RN to call [facility] to see about dosage of patient's vimpat and when the last time she received it. ERICA Richard at [facility] confirmed that pt takes 100mg daily in am. ERICA Richard stated that patient received vimpat today, 10/13/20, after breakfast. MD updated. Patient is currently A&Ox3.
[2020-10-13 23:55] LABS: CPK Total, Creatine Kinase 135 U/L (26-192); Prolactin 33.1 ng/mL
[2020-10-14] VITALS (10 sets, daily range): BP systolic 104–139; BP diastolic 40–61; PULSE 28–60; RESP 18–20; TEMP 36.5–36.8; O2SAT 91–99
[2020-10-14] MEDS: Furosemide 40 MG/4 ML Vial IV ×3 (05:51→21:19)
[2020-10-14] MEDS: 0.9% Saline Lock 10 ML Syringe IV ×3 (05:52→21:19)
[2020-10-14] MEDS: Heparin Injection (Vial) 5,000 UNIT/ML VIAL 5000 UNIT SC ×3 (06:03→21:22)
[2020-10-14 06:11] LABS: Absolute Lymphocyte Count 1.12 X10^3/uL (0.83-4.51); Absolute Neutrophil Count 3.1 X10^3/uL (2.0-7.7); Basophil# 0.04 X10^3/uL; Basophil% 0.8 % (0-1); Eosinophil# 0.14 X10^3/uL; Eosinophils% 2.7 % (0-5); Hematocrit 27.6 % (37-47); Hemoglobin 8.4 g/dL (12.0-15.0); Lymphocyte # 1.12 X10^3/ul (4.0); Lymphocyte % 21.7 % (19-41); Mean Corp Hgb Conc 30.4 g/dL (32-36); Mean Corpuscular Hgb 31.9 pg (27.0-32.0); Mean Corpuscular Volume 104.9 fL (81-99); Mean Platelet Vol. 11.2 fl (6.2-12.0); Monocyte# 0.72 X10^3/uL; NRBC Flagged by Analyzer 0 % (0-5); Neutrophil # 3.11 X10^3/uL (2.7-7.7); Neutrophil % 60.4 % (47-70); POSITIVE COUNT YES; Platelet Count 81 K/mm3 (150-450); RBC Distribution Width CV 15.1 % (11.6-14.6); Red Blood Count 2.63 M/mm3 (4.2-5.4); White Blood Count 5.2 K/mm3 (4.4-11.0)
[2020-10-14 06:42] LABS: Anion Gap 6 (5-15); BUN 81 mg/dL (7-18); BUN/Creat Ratio 28.3 RATIO (10-20); Calcium,Total 8.2 mg/dL (8.5-10.1); Chloride 102 mmol/L (98-107); Creatinine, Serum 2.86 mg/dL (0.55-1.02); EST Glomerular Filtration Rate 17 mL/min (>60); Est Glom Filt Rate - Afr Amer 21 mL/min (>60); Glucose 74 mg/dL (74-106); Potassium 4.9 mmol/L (3.5-5.1); Sodium Level 135 mmol/L (136-145)
[2020-10-14 06:55] LABS: Bedside Glucose 69 mg/dL (70-110)
[2020-10-14] MEDS: Glucerna Shake 120 ML LIQUID PO ×2 (09:02→12:13)
[2020-10-14] MEDS: amLODIPine 10 MG Tablet PO (09:03)
[2020-10-14] MEDS: Isosorbide Mononitrate 30 MG Tablet PO (09:03)
[2020-10-14] MEDS: Gabapentin 100 MG Capsule 200 MG PO ×2 (09:03→17:30)
[2020-10-14] MEDS: Escitalopram Oxalate 10 MG Tablet PO (09:03)
[2020-10-14] MEDS: Aspirin 81 MG TAB.CHEW PO (09:03)
[2020-10-14] MEDS: Lacosamide 100 MG Tablet PO (09:08)
--- NOTE | 2020-10-14 10:19 | PCM.CONS.R ---
Consultation - Renal 10/14/20 PCP/ Referring MD: Requesting physician: [] Primary care physician: Dr. Bailey Toribio MD Reason for Consultation:: CKD stage 4 - History of Present Illness History of Present Illness: The patient is a 74 year old F with CKD stage 4 due to diabetes, baseline creatinine 2.0 with 24h urine CRCL 20cc/min during last hospitalization readmitted for increased weight gain, shortness of breath. Denies nausea, vomiting. She was recently diagnosed and treated for seizures. She had [employer] called last night for altered mental status, confusion. Creatinine 2.8 on admission with poor urine output. Complains of urgency but no urine output. She is up eating breakfast. She was discharged on 10/07 to [facility] on oral lasix 40mg twice a day. She is on iv lasix with minimal urine output. She remains edematous that is unchanged. Albumin remains low at 2.5. Mental status is back to baseline. - Allergies Allergies: Allergies ciprofloxacin [From Cipro] Allergy (Verified 10/13/20 15:20) Rash codeine Allergy (Verified 10/13/20 15:20) Shortness of breath Penicillins Allergy (Verified 10/13/20 15:20) Hives CILLINS Allergy (Uncoded 10/13/20 15:20) Unknown - Current Medications Current Medications: Current Medications Acetaminophen (Acetaminophen 325 Mg Tablet) 650 mg PO Q6H PRN PRN PRN Reason: Pain Score 1-10/Temp > 100.7 F Amlodipine Besylate (Amlodipine 10 Mg Tablet) 10 mg PO DAILY [facility] Last Admin: 10/14/20 09:03 Dose: 10 mg Documented by: Aspirin ([facility] 81 [facility]Chew) [facility] Admin: 10/14/20 09:03 Dose: 81 mg Documented by: Atorvastatin Calcium (Atorvastatin Calcium 10 Mg Tablet) 10 mg PO QHS [facility] Last Admin: 10/13/20 21:08 Dose: 10 mg Documented by: Escitalopram Oxalate (Escitalopram Oxalate 10 Mg Tablet) 10 mg PO DAILY [facility] Last Admin: 10/14/20 09:03 Dose: 10 mg Documented by: Furosemide (Furosemide 40 Mg/4 Ml Vial) 40 mg IV Q8 [facility] Last Admin: 10/14/20 05:51 Dose: 40 mg Documented by: Gabapentin (Gabapentin 100 Mg Capsule) [facility] Last Admin: 10/14/20 09:03 Dose: 200 mg Documented by: Heparin Sodium (Porcine) (Heparin Injection (Vial) 5,000 Unit/Ml Vial) 5,000 unit SC Q8 [facility] Last Admin: 10/14/20 06:03 Dose: 5,000 unit Documented by: Sodium Chloride () 250 mls @ 15 mls/hr IV .[id number] PRN PRN Reason: Saline Flush Sodium Chloride () 250 mls @ 15 mls/hr IV .[id number] PRN PRN Reason: Additional IVPB Infusion Insulin Glargine (Insulin Glargine 100 Units/Ml Pen) 16 units SC BID [facility] Last Admin: 10/14/20 09:44 Dose: Not Given Documented by: Insulin Human Lispro (Insulin Lispro 100 Unit/Ml Insuln.Pen) 0 unit SC ACHS [facility]; Protocol Last Admin: 10/14/20 06:48 Dose: Not Given Documented by: Insulin Human Lispro (Insulin Lispro 100 Unit/Ml Insuln.Pen) [facility] Admin: 10/14/20 09:02 Dose: Not Given Documented by: Isosorbide Mononitrate (Isosorbide Mononitrate 30 Mg Tablet) 30 mg PO DAILY [facility] Last Admin: 10/14/20 09:03 Dose: 30 mg Documented by: Lacosamide (Lacosamide 100 Mg Tablet) 100 mg PO DAILY [facility] Last Admin: 10/14/20 09:08 Dose: 100 mg Documented by: Lorazepam (Lorazepam 2 Mg/Ml Syringe) 2 mg IV PRN PRN PRN Reason: for seizure Nutritional Formula (Lactose Free) (Glucerna Shake 120 Ml Liquid) 120 ml PO TIDCM [facility] Last Admin: 10/14/20 09:02 Dose: 120 ml Documented by: Ondansetron HCl (Ondansetron 4 Mg/2 Ml Vial) 4 mg IV Q8H PRN PRN PRN Reason: NAUSEA/VOMITING Senna/Docusate Sodium (Senna/Docusate Sodium 1 Tablet) 2 tablet PO BID PRN PRN PRN Reason: Constipation Sodium Chloride (0.9% Saline Lock 10 Ml Syringe) 10 - 40 ml IV UD PRN PRN Reason: SALINE FLUSH Last Admin: 10/14/20 05:52 Dose: 10 ml Documented by: Trazodone HCl (Trazodone 50 Mg Tablet) 25 mg PO QHS [facility] Last Admin: 10/13/20 21:08 Dose: 25 mg Documented by: - Past Medical History Past Medical History (Chronic Problems): Chronic Problems Thrombocytopenia (Chronic) Seizure disorder (Chronic) CKD (chronic kidney disease) stage 4, GFR 15-29 ml/min (Chronic) Iron deficiency anemia (Chronic) Coronary artery disease (Chronic) Depression (Chronic) Bipolar disorder (Chronic) Multiple personality disorder (Chronic) Restless legs syndrome (Chronic) Rheumatoid arthritis (Chronic) Generalized anxiety disorder (Chronic) ELENITA on CPAP (Chronic) COPD (chronic obstructive pulmonary disease) (Chronic) Peripheral neuropathy (Chronic) Esophageal reflux (Chronic) Personal history of Methicillin resistant Staphylococcus aureus infection (Chronic) Obesity (Chronic) Hypertension (Chronic) Diabetes type 2, uncontrolled (Chronic) Hyperlipidemia (Chronic) Cerebrovascular disease (Chronic) Status post acute ischemic stroke No residual deficit - Past Surgical History Surgical History: appendectomy, cataract, cholecystectomy, hysterectomy, tonsillectomy, - - Glaucoma, abdominal surgery for cyst. - Social History Smoking Status: Former smoker Alcohol: None Drugs: None - Family History Maternal History Items: Cancer, Diabetes, Heart Disease, Hypertension Paternal History Items: Cancer, Heart Disease Review of Systems Constitutional: Reports: Weakness - chronic. Denies: Anorexia, Chills, Fever Eyes: Denies: Vision Change HEENT: Denies: Head Aches Cardiovascular: Reports: Edema. Denies: Chest Pain, Syncope Respiratory: Reports: Shortness of Breath. Denies: Cough Gastrointestinal: Denies: Abdominal Pain, Nausea, Vomiting Genitourinary: Reports: Retention - cant urinate. Denies: Dysuria Musculoskeletal: Reports: - - leg swelling Skin: Denies: Rash Neurological: Reports: Tremor, Seizures, - - altered mental status Psychiatric: Reports: Anxiety, Depression, - - bipolar - Physical Exam Vitals/I&O's: Vital Signs Temp Pulse Resp BP Pulse Ox 98.2 F 56 L 20 H 104/43 L 99 10/14/20 08:50 10/14/20 08:50 10/14/20 08:50 10/14/20 08:50 10/14/20 08:50 Oxygen Flow Rate (L/min) 3 Oxygen Delivery Method Nasal Cannula Weight: 118 kg Body Mass Index (BMI) 50.8 Finger Stick Blood Glucose 410 Intake and Output for Last 24 Hours 10/12/20 10/13/20 10/14/20 23:59 23:59 23:59 Intake Total 220 / 220 50 / 50 Output Total 300 / 300 Balance 220 / 220 -250 / -250 General: Alert, Oriented x3, Cooperative Lungs: Diminished Cardiovascular: Regular rate, No rub noted Abdomen: Bowel Sounds Present, Soft, Non Tender, Distended, Obese Extremities: Edema - anasarca Skin: No rashes Neurological: Cranial nerves II-XII grossly intact, - - tremor upper extrem Psych/Mental Status: Normal Affect, Alert and oriented to time, place, person, mood and affect Laboratory Results 10/13/20 15:39: WBC 5.9, RBC 2.79 L, Hgb 8.8 L, Hct 28.9 L, MCV 103.6 H, MCH 31.5, MCHC 30.4 L, RDW Std Deviation 58.2 H, RDW Coeff of Kusum 15.3 H, Plt Count 117 L, MPV 11.3, Immature Gran % (Auto) 0.500, Neut % (Auto) 67.3, Lymph % (Auto) 15.9 L, [place] % (Auto) 12.4 H, Eos % (Auto) 3.2, Baso % (Auto) 0.7, Absolute Neuts (auto) 4.0, Absolute Lymphs (auto) 0.94, Nucleated RBC % 0 10/13/20 15:39: Sodium 136, Potassium 4.6, Chloride 100, Carbon Dioxide 31.0, Anion Gap 5, BUN 76 H, Creatinine 2.81 H, Estim Creat Clear Calc 12.62, Est GFR (MDRD) Af Amer 21 L, Est GFR (MDRD) Non-Af 17 L, BUN/Creatinine Ratio 27.0 H, Glucose 95, Calcium 8.4 L, Total Bilirubin 0.40, AST 53 H, ALT 44, Alkaline Phosphatase 102, Troponin I < 0.015, Total Protein 6.5, Albumin 2.5 L, Globulin 4.0, Albumin/Globulin Ratio 0.6 L 10/13/20 15:39: B-Natriuretic Peptide 269.8 H 10/13/20 15:39: Total Creatine Kinase 135, Prolactin 33.1 10/13/20 18:02: POC Glucose 83 10/13/20 18:39: PT 14.9, INR 1.2 10/13/20 21:03: POC Glucose 64 L 10/13/20 22:15: POC Glucose 70 10/13/20 22:49: POC Glucose 76 10/14/20 00:20: Troponin I < 0.015 10/14/20 03:20: Troponin I < 0.015 10/14/20 06:02: WBC 5.2, RBC 2.63 L, Hgb 8.4 L, Hct 27.6 L, MCV 104.9 H, MCH 31.9, MCHC 30.4 L, RDW Std Deviation 58.0 H, RDW Coeff of Kusum 15.1 H, Plt Count 81 L, MPV 11.2, Immature Gran % (Auto) 0.400, Neut % (Auto) 60.4, Lymph % (Auto) 21.7, [place] % (Auto) 14.0 H, Eos % (Auto) 2.7, Baso % (Auto) 0.8, Absolute Neuts (auto) 3.1, Absolute Lymphs (auto) 1.12, Nucleated RBC % 0 10/14/20 06:02: Sodium 135 L, Potassium 4.9, Chloride 102, Carbon Dioxide 27.0, Anion Gap 6, BUN 81 H, Creatinine 2.86 H, Estim Creat Clear Calc 12.40, Est GFR (MDRD) Af Amer 21 L, Est GFR (MDRD) Non-Af 17 L, BUN/Creatinine Ratio 28.3 H, Glucose 74, Calcium 8.2 L 10/14/20 06:02: Troponin I < 0.015 10/14/20 06:47: POC Glucose 69 L Clinical Impression(s) from Imaging Studies Chest X-Ray 10/13/20 16:03 IMPRESSION: Moderate right pleural effusion. Basilar infiltrate cannot be excluded. Left lower lobe scarring and possible retrocardiac infiltrate. Electronically Signed: Tao Simpson DO at 17:33 EDT Tel [phone], Service support , Current Medications Acetaminophen (Acetaminophen 325 Mg Tablet) 650 mg PO Q6H PRN PRN PRN Reason: Pain Score 1-10/Temp > 100.7 F Amlodipine Besylate (Amlodipine 10 Mg Tablet) 10 mg PO DAILY [facility] Last Admin: 10/14/20 09:03 Dose: 10 mg Documented by: Aspirin (Aspirin 81 Mg Tab.Chew) [facility] Last Admin: 10/14/20 09:03 Dose: 81 mg Documented by: Atorvastatin Calcium (Atorvastatin Calcium 10 Mg Tablet) 10 mg PO QHS [facility] Last Admin: 10/13/20 21:08 Dose: 10 mg Documented by: Escitalopram Oxalate (Escitalopram Oxalate 10 Mg Tablet) 10 mg PO DAILY [facility] Last Admin: 10/14/20 09:03 Dose: 10 mg Documented by: Furosemide (Furosemide 40 Mg/4 Ml Vial) 40 mg IV Q8 [facility] Last Admin: 10/14/20 05:51 Dose: 40 mg Documented by: Gabapentin (Gabapentin 100 Mg Capsule) [facility] Last Admin: 10/14/20 09:03 Dose: 200 mg Documented by: Heparin Sodium (Porcine) (Heparin Injection (Vial) 5,000 Unit/Ml Vial) 5,000 unit SC Q8 [facility] Last Admin: 10/14/20 06:03 Dose: 5,000 unit Documented by: Sodium Chloride () 250 mls @ 15 mls/hr IV .[id number] PRN PRN Reason: Saline Flush Sodium Chloride () 250 mls @ 15 mls/hr IV .[id number] PRN PRN Reason: Additional IVPB Infusion Insulin Glargine (Insulin Glargine 100 Units/Ml Pen) 16 units SC BID [facility] Last Admin: 10/14/20 09:44 Dose: Not Given Documented by: Insulin Human Lispro (Insulin Lispro 100 Unit/Ml Insuln.Pen) 0 unit SC [facility]; Protocol Last Admin: 10/14/20 06:48 Dose: Not Given Documented by: Insulin Human Lispro (Insulin Lispro 100 Unit/Ml Insuln.Pen) 5 unit SC TIDCM [facility] Last Admin: 10/14/20 09:02 Dose: Not Given Documented by: Isosorbide Mononitrate (Isosorbide Mononitrate 30 Mg Tablet) 30 mg PO DAILY [facility] Last Admin: 10/14/20 09:03 Dose: 30 mg Documented by: Lacosamide (Lacosamide 100 Mg Tablet) 100 mg PO DAILY [facility] Last Admin: 10/14/20 09:08 Dose: 100 mg Documented by: Lorazepam (Lorazepam 2 Mg/Ml Syringe) 2 mg IV PRN PRN PRN Reason: for seizure Nutritional Formula (Lactose Free) (Glucerna Shake 120 Ml Liquid) 120 ml PO TIDCM [facility] Last Admin: 10/14/20 09:02 Dose: 120 ml Documented by: Ondansetron HCl (Ondansetron 4 Mg/2 Ml Vial) 4 mg IV Q8H PRN PRN PRN Reason: NAUSEA/VOMITING Senna/Docusate Sodium (Senna/Docusate Sodium 1 Tablet) 2 tablet PO BID PRN PRN PRN Reason: Constipation Sodium Chloride (0.9% Saline Lock 10 Ml Syringe) 10 - 40 ml IV UD PRN PRN Reason: SALINE FLUSH Last Admin: 10/14/20 05:52 Dose: 10 ml Documented by: Trazodone HCl (Trazodone 50 Mg Tablet) 25 mg PO QHS [facility] Last Admin: 10/13/20 21:08 Dose: 25 mg Documented by: Assessment/Plan 1. Acute on CKD Stage 4. Creatinine 2.8 with baseline 2.0. Undelying diabetic nephropathy with 24h urine CRCL 20cc/min. May need dialysis if unresponsive to iv lasix. Nicole to CD to r/o urinary retention from edema. 2. Diastolic CHF on lasix iv 3. DM2 4. Seizure disorder 5. Bipolar disease 6. Anasarca with hypoalbuminemia. 7. Debility from eCF.
--- NOTE | 2020-10-14 11:19 | CASEMGMT ---
Patient was recently discharged to [facility] ([facility]) for rehab. ANNIE faxed updates to [facility]. Katelynn ANDRADE
--- NOTE | 2020-10-14 11:46 | PCM.PROGNOTE ---
<Lesly Carter [employer]ESS A[employer]LY[employer] - Last Filed: 10/14/20 12:04> Subjective: Patient seen and examined. Reports improvement in breathing. Remains significantly edematous. Complains of bladder feeling full, unable to urinate. - Physical Exam Vitals/I&O's: Vital Signs Temp Pulse Resp BP Pulse Ox 98.2 F 56 L 20 H 104/43 L 99 10/14/20 08:50 10/14/20 08:50 10/14/20 08:50 10/14/20 08:50 10/14/20 08:50 Oxygen Flow Rate (L/min) 3 Oxygen Delivery Method Nasal Cannula Weight: 260 lb 2.327 oz Body Mass Index (BMI) 50.8 Finger Stick Blood Glucose 410 Intake and Output for Last 24 Hours 10/12/20 10/13/20 10/14/20 23:59 23:59 23:59 Intake Total 220 / 220 50 / 50 Output Total 300 / 300 Balance 220 / 220 -250 / -250 General: Alert, Oriented x3, Cooperative HEENT: Atraumatic, PERRLA, EOMI, Normocephalic Neck: Supple, No JVD, Negative Carotid Bruits Lungs: Diminished, Rales Cardiovascular: Regular Rhythm, No murmurs, Bradycardic Abdomen: Bowel Sounds Present, Soft, Non Tender, Non-Distended, Obese Extremities: No clubbing, No cyanosis, Edema - Pitting edema from lower extremities to abdomen Skin: No rashes, No breakdown Musculoskeletal: No Tenderness to Palpation of Joints or Extremities Neurological: Cranial nerves II-XII grossly intact, Neuro grossly intact Psych/Mental Status: Normal Affect, Appropriate Laboratory Results 10/13/20 15:39: WBC 5.9, RBC 2.79 L, Hgb 8.8 L, Hct 28.9 L, MCV 103.6 H, MCH 31.5, MCHC 30.4 L, RDW Std Deviation 58.2 H, RDW Coeff of Kusum 15.3 H, Plt Count 117 L, MPV 11.3, Immature Gran % (Auto) 0.500, Neut % (Auto) 67.3, Lymph % (Auto) 15.9 L, [place] % (Auto) 12.4 H, Eos % (Auto) 3.2, Baso % (Auto) 0.7, Absolute Neuts (auto) 4.0, Absolute Lymphs (auto) 0.94, Nucleated RBC % 0 10/13/20 15:39: Sodium 136, Potassium 4.6, Chloride 100, Carbon Dioxide 31.0, Anion Gap 5, BUN 76 H, Creatinine 2.81 H, Estim Creat Clear Calc 12.62, Est GFR (MDRD) Af Amer 21 L, Est GFR (MDRD) Non-Af 17 L, BUN/Creatinine Ratio 27.0 H, Glucose 95, Calcium 8.4 L, Total Bilirubin 0.40, AST 53 H, ALT 44, Alkaline Phosphatase 102, Troponin I < 0.015, Total Protein 6.5, Albumin 2.5 L, Globulin 4.0, Albumin/Globulin Ratio 0.6 L 10/13/20 15:39: B-Natriuretic Peptide 269.8 H 10/13/20 15:39: Total Creatine Kinase 135, Prolactin 33.1 10/13/20 18:02: POC Glucose 83 10/13/20 18:39: PT 14.9, INR 1.2 10/13/20 21:03: POC Glucose 64 L 10/13/20 22:15: POC Glucose 70 10/13/20 22:49: POC Glucose 76 10/14/20 00:20: Troponin I < 0.015 10/14/20 03:20: Troponin I < 0.015 10/14/20 06:02: WBC 5.2, RBC 2.63 L, Hgb 8.4 L, Hct 27.6 L, MCV 104.9 H, MCH 31.9, MCHC 30.4 L, RDW Std Deviation 58.0 H, RDW Coeff of Kusum 15.1 H, Plt Count 81 L, MPV 11.2, Immature Gran % (Auto) 0.400, Neut % (Auto) 60.4, Lymph % (Auto) 21.7, [place] % (Auto) 14.0 H, Eos % (Auto) 2.7, Baso % (Auto) 0.8, Absolute Neuts (auto) 3.1, Absolute Lymphs (auto) 1.12, Nucleated RBC % 0 10/14/20 06:02: Sodium 135 L, Potassium 4.9, Chloride 102, Carbon Dioxide 27.0, Anion Gap 6, BUN 81 H, Creatinine 2.86 H, Estim Creat Clear Calc 12.40, Est GFR (MDRD) Af Amer 21 L, Est GFR (MDRD) Non-Af 17 L, BUN/Creatinine Ratio 28.3 H, Glucose 74, Calcium 8.2 L 10/14/20 06:02: Troponin I < 0.015 10/14/20 06:47: POC Glucose 69 L Current Medications Acetaminophen (Acetaminophen 325 Mg Tablet) 650 mg PO Q6H PRN PRN PRN Reason: Pain Score 1-10/Temp > 100.7 F Amlodipine Besylate (Amlodipine 10 Mg Tablet) 10 mg PO DAILY [facility] Last Admin: 10/14/20 09:03 Dose: 10 mg Documented by: Aspirin (Aspirin 81 Mg Tab.Chew) [facility] Last Admin: 10/14/20 09:03 Dose: 81 mg Documented by: Atorvastatin Calcium (Atorvastatin Calcium 10 Mg Tablet) 10 mg PO QHS [facility] Last Admin: 10/13/20 21:08 Dose: 10 mg Documented by: Escitalopram Oxalate (Escitalopram Oxalate 10 Mg Tablet) 10 mg PO DAILY [facility] Last Admin: 10/14/20 09:03 Dose: 10 mg Documented by: Furosemide (Furosemide 40 Mg/4 Ml Vial) 40 mg IV Q8 [facility] Last Admin: 10/14/20 05:51 Dose: 40 mg Documented by: Gabapentin (Gabapentin 100 Mg Capsule) [facility] Last Admin: 10/14/20 09:03 Dose: 200 mg Documented by: Heparin Sodium (Porcine) (Heparin Injection (Vial) 5,000 Unit/Ml Vial) 5,000 unit SC Q8 [facility] Last Admin: 10/14/20 06:03 Dose: 5,000 unit Documented by: Sodium Chloride () 250 mls @ 15 mls/hr IV .[id number] PRN PRN Reason: Saline Flush Sodium Chloride () 250 mls @ 15 mls/hr IV .[id number] PRN PRN Reason: Additional IVPB Infusion Insulin Glargine (Insulin Glargine 100 Units/Ml Pen) 16 units SC BID [facility] Last Admin: 10/14/20 09:44 Dose: Not Given Documented by: Insulin Human Lispro (Insulin Lispro 100 Unit/Ml Insuln.Pen) 0 unit SC ACHS [facility]; Protocol Last Admin: 10/14/20 06:48 Dose: Not Given Documented by: Insulin Human Lispro (Insulin Lispro 100 Unit/Ml Insuln.Pen) 5 unit SC TIDCM [facility] Last Admin: 10/14/20 09:02 Dose: Not Given Documented by: Isosorbide Mononitrate (Isosorbide Mononitrate 30 Mg Tablet) 30 mg PO DAILY [facility] Last Admin: 10/14/20 09:03 Dose: 30 mg Documented by: Lacosamide (Lacosamide 100 Mg Tablet) 100 mg PO DAILY [facility] Last Admin: 10/14/20 09:08 Dose: 100 mg Documented by: Lorazepam (Lorazepam 2 Mg/Ml Syringe) 2 mg IV PRN PRN PRN Reason: for seizure Nutritional Formula (Lactose Free) (Glucerna Shake 120 Ml Liquid) 120 ml PO TIDCM [facility] Last Admin: 10/14/20 09:02 Dose: 120 ml Documented by: Ondansetron HCl (Ondansetron 4 Mg/2 Ml Vial) 4 mg IV Q8H PRN PRN PRN Reason: NAUSEA/VOMITING Senna/Docusate Sodium (Senna/Docusate Sodium 1 Tablet) 2 tablet PO BID PRN PRN PRN Reason: Constipation Sodium Chloride (0.9% Saline Lock 10 Ml Syringe) 10 - 40 ml IV UD PRN PRN Reason: SALINE FLUSH Last Admin: 10/14/20 05:52 Dose: 10 ml Documented by: Trazodone HCl (Trazodone 50 Mg Tablet) 25 mg PO QHS [facility] Last Admin: 10/13/20 21:08 Dose: 25 mg Documented by: Medical Necessity - Tobacco Use Smoking Status: Former smoker Assessment/Plan 1. Acute on chronic heart failure with preserved ejection fraction with anasarca, complicated by chronic kidney disease stage IV-BNP 269. Chest x-ray consistent with congestion. Recent echocardiogram 09/30/2020 demonstrated an EF of 55%, moderately severe tricuspid valve insufficiency. IV Lasix. Strict I&O. Daily weight. 2. Chronic kidney disease stage IV-nephrology consulted. Anticipate tunneled dialysis catheter placement per nephrology. Trend BMP. 3. Type 2 diabetes [id number]-Alfu-Wzoll with sliding scale insulin. Continue home long-acting regimen. 4. ELENITA on CPAP-continue CPAP. 5. Chronic COPD-as needed albuterol aerosol. 6. Hypertension-continue amlodipine, metoprolol. Hold lisinopril. 7. Hyperlipidemia-continue statin. 8. GERD-not on regimen. 9. History of CVA-on aspirin, statin. 10. Rheumatoid arthritis-not on regimen. 11. Bipolar disorder/depression-on Lexapro. 12. Anemia of chronic disease-stable, trend CBC. 13. Seizure disorder-on Vimpat. 14. Morbid obesity-encouraged diet/lifestyle modifications. 15. Chronic hypoxic respiratory failure secondary to chronic heart failure with preserved ejection fraction and chronic COPD-oxygen requirements appear at baseline. DVT prophylaxis-Heparin subcu. This patient was seen by EMILIANA Taylor under the supervision of Dr. Steward. <Leslee Steward - Last Filed: 10/14/20 16:53> Subjective: I agree with the above and the following is a representation of my independent history and physical examination. The patient had a Nicole placed and had 1 L present and drained. She reports at this time she is feeling much better. She does note an improvement in her breathing but remains significantly edematous up to her abdomen. - Physical Exam Vitals/I&O's: Vital Signs Temp Pulse Resp BP Pulse Ox 98.2 F 59 L 20 H 104/43 L 99 10/14/20 08:50 10/14/20 15:01 10/14/20 08:50 10/14/20 08:50 10/14/20 08:50 Oxygen Flow Rate (L/min) 3 Oxygen Delivery Method Nasal Cannula Weight: 118 kg Body Mass Index (BMI) 50.8 Finger Stick Blood Glucose 410 Intake and Output for Last 24 Hours 10/12/20 10/13/20 10/14/20 23:59 23:59 23:59 Intake Total 220 / 220 410 / 410 Output Total 1300 / 1300 Balance 220 / 220 -890 / -890 General: Alert, Oriented x3, Cooperative, No apparent distress, Well developed, Well nourished, - - Beese older white female lying in bed, appears much older than stated age, at bedside, no acute distress, nontoxic HEENT: Atraumatic, PERRLA, EOMI, Normocephalic, EAC Clear Oral: Moist Mucosa, No Gingival or Mucosal Lesions/ Ulcerations, - - Her dentition, no thrush, Mallampati 3 Neck: Supple, Trachea Midline, Thyroid Normal Size and Texture, JVD, Bilateral Lungs: No rhonchi, No wheeze, Diminished, Rales - Bilateral bases Cardiovascular: Regular Rhythm, Normal S1, Normal S2, No murmurs, No Ectopic Activity, Bradycardic, No rub noted, No Gallop Abdomen: Bowel Sounds Present, Soft, Non Tender, Non-Distended, Obese, - - Subcutaneous tissue shows anasarca in the inferior abdominal wall Extremities: No clubbing, No cyanosis, Capillary Refill Less than 3 Seconds, Edema - Pitting edema from lower extremities to abdomen-2-3+ pitting Skin: No rashes, No breakdown, - - Pale skin Musculoskeletal: No Tenderness to Palpation of Joints or Extremities, Arthritic Changes, Muscle Wasting Lymphatic: No Cervical, Supraclavicular, or Inguinal Adenopathy Neurological: Cranial nerves II-XII grossly intact, Neuro grossly intact, Muscle tone normal, Coordination normal Psych/Mental Status: Normal Affect, Appropriate, - - Very interactive Laboratory Results 10/13/20 15:39: B-Natriuretic Peptide 269.8 H 10/13/20 15:39: Total Creatine Kinase 135, Prolactin 33.1 10/13/20 18:02: POC Glucose 83 10/13/20 18:39: PT 14.9, INR 1.2 10/13/20 21:03: POC Glucose 64 L 10/13/20 22:15: POC Glucose 70 10/13/20 22:49: POC Glucose 76 10/14/20 00:20: Troponin I < 0.015 10/14/20 03:20: Troponin I < 0.015 10/14/20 06:02: WBC 5.2, RBC 2.63 L, Hgb 8.4 L, Hct 27.6 L, MCV 104.9 H, MCH 31.9, MCHC 30.4 L, RDW Std Deviation 58.0 H, RDW Coeff of Kusum 15.1 H, Plt Count 81 L, MPV 11.2, Immature Gran % (Auto) 0.400, Neut % (Auto) 60.4, Lymph % (Auto) 21.7, [place] % (Auto) 14.0 H, Eos % (Auto) 2.7, Baso % (Auto) 0.8, Absolute Neuts (auto) 3.1, Absolute Lymphs (auto) 1.12, Nucleated RBC % 0 10/14/20 06:02: Sodium 135 L, Potassium 4.9, Chloride 102, Carbon Dioxide 27.0, Anion Gap 6, BUN 81 H, Creatinine 2.86 H, Estim Creat Clear Calc 12.40, Est GFR (MDRD) Af Amer 21 L, Est GFR (MDRD) Non-Af 17 L, BUN/Creatinine Ratio 28.3 H, Glucose 74, Calcium 8.2 L 10/14/20 06:02: Troponin I < 0.015 10/14/20 06:47: POC Glucose 69 L 10/14/20 11:44: POC Glucose 171 H Current Medications Acetaminophen (Acetaminophen 325 Mg Tablet) 650 mg PO Q6H PRN PRN PRN Reason: Pain Score 1-10/Temp > 100.7 F Amlodipine Besylate (Amlodipine 10 Mg Tablet) 10 mg PO DAILY [facility] Last Admin: 10/14/20 09:03 Dose: 10 mg Documented by: Aspirin (Aspirin 81 Mg Tab.Chew) [facility] Last Admin: 10/14/20 09:03 Dose: 81 mg Documented by: Atorvastatin Calcium (Atorvastatin Calcium 10 Mg Tablet) 10 mg PO QHS [facility] Last Admin: 10/13/20 21:08 Dose: 10 mg Documented by: Escitalopram Oxalate (Escitalopram Oxalate 10 Mg Tablet) 10 mg PO DAILY [facility] Last Admin: 10/14/20 09:03 Dose: 10 mg Documented by: Furosemide (Furosemide 40 Mg/4 Ml Vial) 40 mg IV Q8 [facility] Last Admin: 10/14/20 14:07 Dose: 40 mg Documented by: Gabapentin (Gabapentin 100 Mg Capsule) 200 mg PO BIDCM [facility] Last Admin: 10/14/20 09:03 Dose: 200 mg Documented by: Heparin Sodium (Porcine) (Heparin Injection (Vial) 5,000 Unit/Ml Vial) 5,000 unit SC Q8 [facility] Last Admin: 10/14/20 14:07 Dose: 5,000 unit Documented by: Sodium Chloride () 250 mls @ 15 mls/hr IV .[id number] PRN PRN Reason: Saline Flush Sodium Chloride () 250 mls @ 15 mls/hr IV .[id number] PRN PRN Reason: Additional IVPB Infusion Insulin Glargine (Insulin Glargine 100 Units/Ml Pen) 16 units SC BID [facility] Last Admin: 10/14/20 09:44 Dose: Not Given Documented by: Insulin Human Lispro (Insulin Lispro 100 Unit/Ml Insuln.Pen) 0 unit SC ACHS [facility]; Protocol Last Admin: 10/14/20 12:10 Dose: 1 units Documented by: Insulin Human Lispro (Insulin Lispro 100 Unit/Ml Insuln.Pen) 5 unit SC TIDCM [facility] Last Admin: 10/14/20 12:10 Dose: 5 units Documented by: Isosorbide Mononitrate (Isosorbide Mononitrate 30 Mg Tablet) 30 mg PO DAILY [facility] Last Admin: 10/14/20 09:03 Dose: 30 mg Documented by: Lacosamide (Lacosamide 100 Mg Tablet) 100 mg PO DAILY [facility] Last Admin: 10/14/20 09:08 Dose: 100 mg Documented by: Lorazepam (Lorazepam 2 Mg/Ml Syringe) 2 mg IV PRN PRN PRN Reason: for seizure Ondansetron HCl (Ondansetron 4 Mg/2 Ml Vial) 4 mg IV Q8H PRN PRN PRN Reason: NAUSEA/VOMITING Senna/Docusate Sodium (Senna/Docusate Sodium 1 Tablet) 2 tablet PO BID PRN PRN PRN Reason: Constipation Sodium Chloride (0.9% Saline Lock 10 Ml Syringe) 10 - 40 ml IV UD PRN PRN Reason: SALINE FLUSH Last Admin: 10/14/20 14:07 Dose: 10 ml Documented by: Trazodone HCl (Trazodone 50 Mg Tablet) 25 mg PO QHS [facility] Last Admin: 10/13/20 21:08 Dose: 25 mg Documented by: Assessment/Plan ASSESSMENT Acute on chronic HFpEF Chronic hypoxic respiratory failure Secondary PAH WHO class II/III Chronic anemia Mild hyponatremia DEBBIE on CKD stage IV Urinary retention DM-2 ELENITA COPD HTN HPL GERD History of stroke RA Seizure Bipolar Depression MO PLAN -Continue aggressive diuresis -Monitor serum creatinine closely -Suspect there is a large component of right ventricular failure involved -Continue CPAP at night -Maintain Nicole -Wean oxygen as able -Patient was on 3 L at the nursing facility prior to admission -Palliative care consult Inpatient E&M: [id number] [facility] Hosp L2
[2020-10-14 11:51] LABS: Bedside Glucose 171 mg/dL (70-110)
[2020-10-14] MEDS: Insulin Lispro 100 UNIT/ML INSULN.PEN SC ×4 (12:10→17:31)
--- NOTE | 2020-10-14 15:31 | CASEMGMT ---
Readmission chart review: Pt was initially admitted 09/29-10/07/20 for CHF, hyperglycemia, s/p seizure. Pt was discharged to [facility] at that time. Pt returned to [facility] ED for edema, SOB and was admitted with Acute on Chronic diastolic CHF. Pt is on lasix iv every 8 hours and is currently on 3L nc. Pt was referred to palliative last visit and palliative notified of pt return. CM to follow for any further discharge planning/needs. Marci MALDONADO CM
[2020-10-14 17:05] LABS: Bedside Glucose 163 mg/dL (70-110)
[2020-10-14] MEDS: Atorvastatin Calcium 10 MG Tablet PO (21:21)
[2020-10-14] MEDS: Nystatin Powder 15gm Bottle 1 APPLIC TOPICAL (21:21)
[2020-10-14] MEDS: traZODone 50 MG Tablet 25 MG PO (21:29)
[2020-10-15] VITALS (11 sets, daily range): BP systolic 120–146; BP diastolic 44–58; PULSE 55–66; RESP 18–20; TEMP 36.4–36.8; O2SAT 92–100
[2020-10-15 01:00] LABS: Bedside Glucose 171 mg/dL (70-110)
[2020-10-15] MEDS: Heparin Injection (Vial) 5,000 UNIT/ML VIAL 5000 UNIT SC ×3 (05:59→21:15)
[2020-10-15] MEDS: Furosemide 40 MG/4 ML Vial IV (05:59)
[2020-10-15] MEDS: 0.9% Saline Lock 10 ML Syringe IV ×2 (05:59→13:25)
[2020-10-15 06:30] LABS: Hematocrit 28.4 % (37-47); Hemoglobin 8.7 g/dL (12.0-15.0); Mean Corp Hgb Conc 30.6 g/dL (32-36); Mean Corpuscular Hgb 31.6 pg (27.0-32.0); Mean Corpuscular Volume 103.3 fL (81-99); POSITIVE COUNT YES; Platelet Count 84 K/mm3 (150-450); RBC Distribution Width CV 15.1 % (11.6-14.6); RBC Distribution Width SD 56.7 fl (35.1-43.9); Red Blood Count 2.75 M/mm3 (4.2-5.4); White Blood Count 5.1 K/mm3 (4.4-11.0)
[2020-10-15 06:52] LABS: Anion Gap 6 (5-15); BUN 83 mg/dL (7-18); BUN/Creat Ratio 28.8 RATIO (10-20); Calcium,Total 8.1 mg/dL (8.5-10.1); Chloride 100 mmol/L (98-107); Creatinine, Serum 2.88 mg/dL (0.55-1.02); EST Glomerular Filtration Rate 17 mL/min (>60); Est Glom Filt Rate - Afr Amer 21 mL/min (>60); Estimated Creatinine Clearance 12.31 ml/min; Glucose 147 mg/dL (74-106); Potassium 4.8 mmol/L (3.5-5.1); Sodium Level 134 mmol/L (136-145)
[2020-10-15] MEDS: Isosorbide Mononitrate 30 MG Tablet PO (08:58)
[2020-10-15] MEDS: Escitalopram Oxalate 10 MG Tablet PO (08:58)
[2020-10-15] MEDS: amLODIPine 10 MG Tablet PO (08:58)
[2020-10-15] MEDS: Aspirin 81 MG TAB.CHEW PO (08:58)
[2020-10-15] MEDS: Gabapentin 100 MG Capsule 200 MG PO (08:58)
[2020-10-15] MEDS: Nystatin Powder 15gm Bottle 1 APPLIC TOPICAL ×2 (09:00→21:15)
[2020-10-15] MEDS: Lacosamide 100 MG Tablet PO (09:00)
[2020-10-15] MEDS: Insulin Lispro 100 UNIT/ML INSULN.PEN SC ×3 (09:11→13:24)
[2020-10-15 09:16] LABS: Bedside Glucose 137 mg/dL (70-110)
[2020-10-15 11:40] LABS: Bedside Glucose 181 mg/dL (70-110)
--- NOTE | 2020-10-15 11:53 | CASEMGMT ---
ANNIE faxed updates to [facility]. Katelynn Bui [employer]
--- NOTE | 2020-10-15 11:59 | PCM.PN.REN ---
Subjective: urine output improved on lasix drip. Creatinine stable at 2.8. Yelling for help but voices no specific complaint. Agitated, restless - Physical Exam Vitals/I&O's: Vital Signs Temp Pulse Resp BP Pulse Ox 98.1 F 59 L 18 125/51 H 92 10/15/20 05:42 10/15/20 06:55 10/15/20 05:42 10/15/20 05:42 10/15/20 08:02 Oxygen Flow Rate (L/min) 2 Oxygen Delivery Method Nasal Cannula Weight: 118 kg Body Mass Index (BMI) 50.8 Finger Stick Blood Glucose 410 Intake and Output for Last 24 Hours 10/13/20 10/14/20 10/15/20 23:59 23:59 23:59 Intake Total 220 / 220 725 / 725 100 / 100 Output Total 2200 / 2200 225 / 225 Balance 220 / 220 -1475 / -1475 -125 / -125 General: - - agitated Lungs: Diminished Cardiovascular: Regular rate Abdomen: Soft, Non Tender, Obese Extremities: Edema - anasarca Psych/Mental Status: Agitated, Restless Laboratory Results 10/14/20 16:49: POC Glucose 163 H 10/14/20 21:17: POC Glucose 171 H 10/15/20 06:10: WBC 5.1, RBC 2.75 L, Hgb 8.7 L, Hct 28.4 L, MCV 103.3 H, MCH 31.6, MCHC 30.6 L, RDW Std Deviation 56.7 H, RDW Coeff of Kusum 15.1 H, Plt Count 84 L, MPV 11.0 10/15/20 06:10: Sodium 134 L, Potassium 4.8, Chloride 100, Carbon Dioxide 28.0, Anion Gap 6, BUN 83 H, Creatinine 2.88 H, Estim Creat Clear Calc 12.31, Est GFR (MDRD) Af Amer 21 L, Est GFR (MDRD) Non-Af 17 L, BUN/Creatinine Ratio 28.8 H, Glucose 147 H, Calcium 8.1 L 10/15/20 08:56: POC Glucose 137 H 10/15/20 11:32: POC Glucose 181 H Current Medications Acetaminophen (Acetaminophen 325 Mg Tablet) 650 mg PO Q6H PRN PRN PRN Reason: Pain Score 1-10/Temp > 100.7 F Amlodipine Besylate (Amlodipine 10 Mg Tablet) 10 mg PO DAILY [facility] Last Admin: 10/15/20 08:58 Dose: 10 mg Documented by: Aspirin (Aspirin 81 Mg Tab.Chew) [facility] Last Admin: 10/15/20 08:58 Dose: 81 mg Documented by: Atorvastatin Calcium (Atorvastatin Calcium 10 Mg Tablet) 10 mg PO QHS [facility] Last Admin: 10/14/20 21:21 Dose: 10 mg Documented by: Escitalopram Oxalate (Escitalopram Oxalate 10 Mg Tablet) 10 mg PO DAILY [facility] Last Admin: 10/15/20 08:58 Dose: 10 mg Documented by: Gabapentin (Gabapentin 100 Mg Capsule) [facility] Last Admin: 10/15/20 08:58 Dose: 200 mg Documented by: Heparin Sodium (Porcine) (Heparin Injection (Vial) 5,000 Unit/Ml Vial) 5,000 unit SC Q8 [facility] Last Admin: 10/15/20 05:59 Dose: 5,000 unit Documented by: Sodium Chloride () 250 mls @ 15 mls/hr IV .[id number] PRN PRN Reason: Saline Flush Sodium Chloride () 250 mls @ 15 mls/hr IV .[id number] PRN PRN Reason: Additional IVPB Infusion Furosemide 500 mg/ N/A 50 mls @ 2 mls/hr CONT INF .Q25H [facility] Insulin Glargine (Insulin Glargine 100 Units/Ml Pen) 16 units SC BID [facility] Last Admin: 10/15/20 09:11 Dose: 16 u Documented by: Insulin Human Lispro (Insulin Lispro 100 Unit/Ml Insuln.Pen) 0 unit SC ACHS [facility]; Protocol Last Admin: 10/15/20 08:57 Dose: Not Given Documented by: Insulin Human Lispro (Insulin Lispro 100 Unit/Ml Insuln.Pen) 5 unit SC TIDCM [facility] Last Admin: 10/15/20 09:11 Dose: 5 units Documented by: Isosorbide Mononitrate (Isosorbide Mononitrate 30 Mg Tablet) 30 mg PO DAILY [facility] Last Admin: 10/15/20 08:58 Dose: 30 mg Documented by: Lacosamide (Lacosamide 100 Mg Tablet) 100 mg PO DAILY [facility] Last Admin: 10/15/20 09:00 Dose: 100 mg Documented by: Lorazepam (Lorazepam 2 Mg/Ml Syringe) 2 mg IV PRN PRN PRN Reason: for seizure Nystatin (Nystatin Powder 15gm Bottle) 1 applic TOPICAL BID [facility]; Protocol Last Admin: 10/15/20 09:00 Dose: 1 applic Documented by: Ondansetron HCl (Ondansetron 4 Mg/2 Ml Vial) 4 mg IV Q8H PRN PRN PRN Reason: NAUSEA/VOMITING Senna/Docusate Sodium (Senna/Docusate Sodium 1 Tablet) 2 tablet PO BID PRN PRN PRN Reason: Constipation Sodium Chloride (0.9% Saline Lock 10 Ml Syringe) 10 - 40 ml IV UD PRN PRN Reason: SALINE FLUSH Last Admin: 10/15/20 05:59 Dose: 10 ml Documented by: Trazodone HCl (Trazodone 50 Mg Tablet) 25 mg PO QHS [facility] Last Admin: 10/14/20 21:29 Dose: 25 mg Documented by: Medical Necessity - Tobacco Use Smoking Status: Former smoker Assessment/Plan 1. Acute on CKD Stage 4. Creatinine 2.8 with baseline 2.0. Underlying diabetic nephropathy with 24h urine CRCL 20cc/min last admit. Diuresing well on lasix drip. Continue to monitor renal fxn. 2. Diastolic CHF on lasix drip 3. DM2 monitor for hypoglycemia 4. Seizure disorder 5. Bipolar disease 6. Anasarca with hypoalbuminemia. 7. iron def anemia hgb 8.7g. recheck iron level
--- NOTE | 2020-10-15 12:09 | CASEMGMT ---
SW did talk with patient and confirmed that she is planning on returning to [facility] for rehab. She declined a list of SNF's as she wishes to return to [facility] at d/c. Katelynn ANDRADE
--- NOTE | 2020-10-15 12:14 | PN_ITS ---
<Alfred Liang - Last Filed: 10/15/20 12:14> Subjective: Patient is a 74-year-old female who is resting in a chair on supplemental oxygen eating breakfast, alert and orient x3. Patient still complains of feeling like very congested, complains of still having a lot of fluid on her. Denies chest pain, shortness of breath, palpitations, fever, N/V/D. Objective: Clinical Impression(s) from Imaging Studies Chest X-Ray 10/13/20 16:03 IMPRESSION: Moderate right pleural effusion. Basilar infiltrate cannot be excluded. Left lower lobe scarring and possible retrocardiac infiltrate. Electronically Signed: Tao Simpson DO at 17:33 EDT Tel [phone], Service support , Vitals/I&O's: Vital Signs Temp Pulse Resp BP Pulse Ox 98.1 F 59 L 18 125/51 H 92 10/15/20 05:42 10/15/20 06:55 10/15/20 05:42 10/15/20 05:42 10/15/20 08:02 Oxygen Flow Rate (L/min) 2 Oxygen Delivery Method Nasal Cannula Weight: 260 lb 2.327 oz Body Mass Index (BMI) 50.8 Finger Stick Blood Glucose 410 Intake and Output for Last 24 Hours 10/13/20 10/14/20 10/15/20 23:59 23:59 23:59 Intake Total 220 / 220 725 / 725 100 / 100 Output Total 2200 / 2200 225 / 225 Balance 220 / 220 -1475 / -1475 -125 / -125 General: Alert, Oriented x3, Cooperative HEENT: Atraumatic, PERRLA, EOMI, Normocephalic Neck: Supple, No JVD, Negative Carotid Bruits Lungs: Diminished, Wheezes Cardiovascular: Regular rate, No murmurs Abdomen: Bowel Sounds Present, Non Tender, Distended, Obese Extremities: Edema Skin: No rashes, No breakdown Musculoskeletal: No Tenderness to Palpation of Joints or Extremities Neurological: Cranial nerves II-XII grossly intact Psych/Mental Status: Normal Affect, Appropriate Laboratory Results 10/14/20 16:49: POC Glucose 163 H 10/14/20 21:17: POC Glucose 171 H 10/15/20 06:10: WBC 5.1, RBC 2.75 L, Hgb 8.7 L, Hct 28.4 L, MCV 103.3 H, MCH 31.6, MCHC 30.6 L, RDW Std Deviation 56.7 H, RDW Coeff of Kusum 15.1 H, Plt Count 84 L, MPV 11.0 10/15/20 06:10: Sodium 134 L, Potassium 4.8, Chloride 100, Carbon Dioxide 28.0, Anion Gap 6, BUN 83 H, Creatinine 2.88 H, Estim Creat Clear Calc 12.31, Est GFR (MDRD) Af Amer 21 L, Est GFR (MDRD) Non-Af 17 L, BUN/Creatinine Ratio 28.8 H, Glucose 147 H, Calcium 8.1 L 10/15/20 08:56: POC Glucose 137 H 10/15/20 11:32: POC Glucose 181 H Current Medications Acetaminophen (Acetaminophen 325 Mg Tablet) 650 mg PO Q6H PRN PRN PRN Reason: Pain Score 1-10/Temp > 100.7 F Amlodipine Besylate (Amlodipine 10 Mg Tablet) 10 mg PO DAILY [facility] Last Admin: 10/15/20 08:58 Dose: 10 mg Documented by: Aspirin (Aspirin 81 Mg Tab.Chew) [facility] Last Admin: 10/15/20 08:58 Dose: 81 mg Documented by: Atorvastatin Calcium (Atorvastatin Calcium 10 Mg Tablet) 10 mg PO QHS [facility] Last Admin: 10/14/20 21:21 Dose: 10 mg Documented by: Escitalopram Oxalate (Escitalopram Oxalate 10 Mg Tablet) 10 mg PO DAILY [facility] Last Admin: 10/15/20 08:58 Dose: 10 mg Documented by: Gabapentin (Gabapentin 100 Mg Capsule) [facility] Last Admin: 10/15/20 08:58 Dose: 200 mg Documented by: Heparin Sodium (Porcine) (Heparin Injection (Vial) 5,000 Unit/Ml Vial) 5,000 unit SC Q8 [facility] Last Admin: 10/15/20 05:59 Dose: 5,000 unit Documented by: Sodium Chloride () 250 mls @ 15 mls/hr IV .[id number] PRN PRN Reason: Saline Flush Sodium Chloride () 250 mls @ 15 mls/hr IV .[id number] PRN PRN Reason: Additional IVPB Infusion Furosemide 500 mg/ N/A 50 mls @ 2 mls/hr CONT INF .Q25H [facility] Insulin Glargine (Insulin Glargine 100 Units/Ml Pen) 16 units SC BID [facility] Last Admin: 10/15/20 09:11 Dose: 16 u Documented by: Insulin Human Lispro (Insulin Lispro 100 Unit/Ml Insuln.Pen) 0 unit SC ACHS [facility]; Protocol Last Admin: 10/15/20 08:57 Dose: Not Given Documented by: Insulin Human Lispro (Insulin Lispro 100 Unit/Ml Insuln.Pen) 5 unit SC TIDCM [facility] Last Admin: 10/15/20 09:11 Dose: 5 units Documented by: Isosorbide Mononitrate (Isosorbide Mononitrate 30 Mg Tablet) 30 mg PO DAILY [facility] Last Admin: 10/15/20 08:58 Dose: 30 mg Documented by: Lacosamide (Lacosamide 100 Mg Tablet) 100 mg PO DAILY [facility] Last Admin: 10/15/20 09:00 Dose: 100 mg Documented by: Lorazepam (Lorazepam 2 Mg/Ml Syringe) 2 mg IV PRN PRN PRN Reason: for seizure Nystatin (Nystatin Powder 15gm Bottle) 1 applic TOPICAL BID [facility]; Protocol Last Admin: 10/15/20 09:00 Dose: 1 applic Documented by: Ondansetron HCl (Ondansetron 4 Mg/2 Ml Vial) 4 mg IV Q8H PRN PRN PRN Reason: NAUSEA/VOMITING Senna/Docusate Sodium (Senna/Docusate Sodium 1 Tablet) 2 tablet PO BID PRN PRN PRN Reason: Constipation Sodium Chloride (0.9% Saline Lock 10 Ml Syringe) 10 - 40 ml IV UD PRN PRN Reason: SALINE FLUSH Last Admin: 10/15/20 05:59 Dose: 10 ml Documented by: Trazodone HCl (Trazodone 50 Mg Tablet) 25 mg PO QHS [facility] Last Admin: 10/14/20 21:29 Dose: 25 mg Documented by: Medical Necessity - Tobacco Use Smoking Status: Former smoker Assessment/Plan Patient is a 74-year-old female who on 10/13/2020 reported to the ED with a chief complaint of increased weight gain, shortness of breath and increased swelling. Today patient reports slight improvement of her shortness of breath, however still feels like she is swollen and that she is carrying a lot of extra weight. Patient is diuresing well on Lasix and weight has decreased by 4 pounds since admission. Patient will be initiated on a continuous infusion of Lasix in an attempt to decrease her swelling. 1) Acute on chronic CHF with preserved ejection fraction with anasarca Continuous infusion of Lasix initiated 50 mL at 2 mils per hour. Strict I&O and daily weights. Treatment complicated by CKD stage IV. 2) CKD stage IV Tunneled dialysis catheter placement pending response to Lasix. Continuing to diurese well on Lasix, patient has dropped 4 pounds since admission. Continue to monitor renal function, stable since admission. 3) DM2 Continue home long-acting insulin regimen. Continue Accu-Cheks with sliding scale insulin. 4) ELENITA Continue CPAP 5) COPD Continue albuterol aerosol as needed 6) Hypertension Stable, continue amlodipine and metoprolol. Continue to hold lisinopril. 7) Hyperlipidemia Continue statin. 8) history of CVA Continue aspirin and statin. 9) Bipolar disorder/depression Continue on Lexapro. 10) Anemia of chronic disease Stable, continue to monitor CBC. 11) Seizure disorder Continue Vimpat. DVT Prophylaxis -Heparin SC Patient seen by Alfred Liang PA-C, under the supervision of Dr. Steward. <Leslee Steward - Last Filed: 10/15/20 17:20> Subjective: I agree with above and the following is representation of my independent history and physical examination. Patient agrees that her breathing and her edema have improved slowly but she still is complaining about shortness of breath especially with exertion and significant edema into her abdomen still. Vitals/I&O's: Vital Signs Temp Pulse Resp BP Pulse Ox 97.5 F L 62 20 H 146/45 H 96 10/15/20 11:40 10/15/20 14:52 10/15/20 11:40 10/15/20 11:40 10/15/20 11:40 Oxygen Flow Rate (L/min) 1 Oxygen Delivery Method Nasal Cannula Weight: 118 kg Body Mass Index (BMI) 50.8 Finger Stick Blood Glucose 410 Intake and Output for Last 24 Hours 10/13/20 10/14/20 10/15/20 23:59 23:59 23:59 Intake Total 220 / 220 725 / 725 460 / 460 Output Total 0 / 0 675 / 675 Balance 220 / -1475 / -1475 -215 / -215 General: Alert, Oriented x3, Cooperative, No apparent distress, Well developed, Well nourished, - - Elderly white female sitting up in a chair at bedside catching her breath related to transfer, therapy services at bedside, patient nontoxic-appearing HEENT: Atraumatic, PERRLA, EOMI, Normocephalic, EAC Clear Oral: Moist Mucosa, No Gingival or Mucosal Lesions/ Ulcerations, - - Poor dentition Neck: Supple, Negative Carotid Bruits, Trachea Midline, Thyroid Normal Size and Texture, JVD, Bilateral Lungs: No rhonchi, No wheeze, Diminished, Rales - Bilateral bases, Short of Breath - Mildly Cardiovascular: Regular rate, Regular Rhythm, Normal S1, Normal S2, No murmurs, No Ectopic Activity, No rub noted, No Gallop Abdomen: Bowel Sounds Present, Soft, Non Tender, Obese, - - Anasarca noted on anterior and lateral abdomen Extremities: No clubbing, No cyanosis, Capillary Refill Less than 3 Seconds, Edema - Marked bilateral lower extremity edema that extends up into her thighs and abdomen Skin: No rashes, No breakdown, - - Bilateral lower extremity skin changes consistent with venous stasis Musculoskeletal: No Tenderness to Palpation of Joints or Extremities, No Muscle Wasting, Arthritic Changes, - - Generalized weakness Lymphatic: No Cervical, Supraclavicular, or Inguinal Adenopathy Neurological: Cranial nerves II-XII grossly intact, Neuro grossly intact, Coordination normal, - - Severe deconditioning Psych/Mental Status: Normal Affect, Appropriate, - - Pleasant Laboratory Results 10/14/20 21:17: POC Glucose 171 H 10/15/20 06:10: WBC 5.1, RBC 2.75 L, Hgb 8.7 L, Hct 28.4 L, MCV 103.3 H, MCH 31.6, MCHC 30.6 L, RDW Std Deviation 56.7 H, RDW Coeff of Kusum 15.1 H, Plt Count 84 L, MPV 11.0 10/15/20 06:10: Sodium 134 L, Potassium 4.8, Chloride 100, Carbon Dioxide 28.0, Anion Gap 6, BUN 83 H, Creatinine 2.88 H, Estim Creat Clear Calc 12.31, Est GFR (MDRD) Af Amer 21 L, Est GFR (MDRD) Non-Af 17 L, BUN/Creatinine Ratio 28.8 H, Glucose 147 H, Calcium 8.1 L 10/15/20 08:56: POC Glucose 137 H 10/15/20 11:32: POC Glucose 181 H Current Medications Acetaminophen (Acetaminophen 325 Mg Tablet) 650 mg PO Q6H PRN PRN PRN Reason: Pain Score 1-10/Temp > 100.7 F Amlodipine Besylate (Amlodipine 10 Mg Tablet) 10 mg PO DAILY [facility] Last Admin: 10/15/20 08:58 Dose: 10 mg Documented by: Aspirin (Aspirin 81 Mg Tab.Chew) [facility] Last Admin: 10/15/20 08:58 Dose: 81 mg Documented by: Atorvastatin Calcium (Atorvastatin Calcium 10 Mg Tablet) 10 mg PO QHS [facility] Last Admin: 10/14/20 21:21 Dose: 10 mg Documented by: Escitalopram Oxalate (Escitalopram Oxalate 10 Mg Tablet) 10 mg PO DAILY [facility] Last Admin: 10/15/20 08:58 Dose: 10 mg Documented by: Gabapentin (Gabapentin 100 Mg Capsule) 200 mg PO BIDCM [facility] Last Admin: 10/15/20 08:58 Dose: 200 mg Documented by: Heparin Sodium (Porcine) (Heparin Injection (Vial) 5,000 Unit/Ml Vial) 5,000 unit SC Q8 [facility] Last Admin: 10/15/20 13:26 Dose: 5,000 unit Documented by: Sodium Chloride () 250 mls @ 15 mls/hr IV .[id number] PRN PRN Reason: Saline Flush Sodium Chloride () 250 mls @ 15 mls/hr IV .[id number] PRN PRN Reason: Additional IVPB Infusion Furosemide 500 mg/ N/A 50 mls @ 2 mls/hr CONT INF .Q25H [facility] Last Admin: 10/15/20 13:26 Dose: 20 mg/hr, 2 mls/hr Documented by: Insulin Glargine (Insulin Glargine 100 Units/Ml Pen) 16 units SC BID [facility] Last Admin: 10/15/20 09:11 Dose: 16 u Documented by: Insulin Human Lispro (Insulin Lispro 100 Unit/Ml Insuln.Pen) 0 unit SC ACHS [facility]; Protocol Last Admin: 10/15/20 13:24 Dose: 1 units Documented by: Insulin Human Lispro (Insulin Lispro 100 Unit/Ml Insuln.Pen) 5 unit SC TIDCM [facility] Last Admin: 10/15/20 13:24 Dose: 5 units Documented by: Isosorbide Mononitrate (Isosorbide Mononitrate 30 Mg Tablet) 30 mg PO DAILY [facility] Last Admin: 10/15/20 08:58 Dose: 30 mg Documented by: Lacosamide (Lacosamide 100 Mg Tablet) 100 mg PO DAILY [facility] Last Admin: 10/15/20 09:00 Dose: 100 mg Documented by: Lorazepam (Lorazepam 2 Mg/Ml Syringe) 2 mg IV PRN PRN PRN Reason: for seizure Nystatin (Nystatin Powder 15gm Bottle) 1 applic TOPICAL BID [facility]; Protocol Last Admin: 10/15/20 09:00 Dose: 1 applic Documented by: Ondansetron HCl (Ondansetron 4 Mg/2 Ml Vial) 4 mg IV Q8H PRN PRN PRN Reason: NAUSEA/VOMITING Senna/Docusate Sodium (Senna/Docusate Sodium 1 Tablet) 2 tablet PO BID PRN PRN PRN Reason: Constipation Sodium Chloride (0.9% Saline Lock 10 Ml Syringe) 10 - 40 ml IV UD PRN PRN Reason: SALINE FLUSH Last Admin: 10/15/20 13:25 Dose: 10 ml Documented by: Trazodone HCl (Trazodone 50 Mg Tablet) 25 mg PO QHS [facility] Last Admin: 10/14/20 21:29 Dose: 25 mg Documented by: STROKE Vital Signs/Narrative: Vital Signs Pulse 10/15/20 14:52 62 Assessment/Plan ASSESSMENT Acute on chronic HFpEF Chronic hypoxic respiratory failure Secondary PAH WHO class II/III Chronic anemia Mild hyponatremia DEBBIE on CKD stage IV Urinary retention DM-2 ELENITA COPD HTN HPL GERD History of stroke RA Seizure Bipolar Depression MO PLAN Continue aggressive diuresis -Discontinue bolus Lasix and switch to insulin drip -Serum creatinine remained stable despite diuretic -Suspect this is all related to right ventricular failure -May benefit from ultrafiltration -Nephrology following -Continue to monitor closely -Palliative care did see the patient here and counseled on services with the plan to follow-up as an outpatient after discharge for possible involvement as an outpatient Inpatient E&M: [id number] Subs Hosp L2
[2020-10-15] MEDS: Furosemide 500 MG in Empty Viaflex 50 mL 1 EACH CONT INF (13:26)
--- NOTE | 2020-10-15 14:13 | HP.PCM_ITS ---
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 (12) Restless legs syndrome Status: Chronic (13) Rheumatoid arthritis Status: Chronic (14) Generalized anxiety disorder Status: Chronic (15) ELENITA on CPAP Status: Chronic (16) COPD (chronic obstructive pulmonary disease) Status: Chronic (17) Peripheral neuropathy Status: Chronic (18) Esophageal reflux Status: Chronic (19) Personal history of Methicillin resistant Staphylococcus aureus infection Status: Chronic (20) Obesity Status: Chronic Qualifiers: Obesity type: due to excess calories (21) Hypertension Status: Chronic (22) Diabetes type 2, uncontrolled Status: Chronic (23) Hyperlipidemia Status: Chronic History of Present Illness Date of Consult: 10/15/20 Reason for Consult: shortness of breath, readmit Requesting physician: [] Primary care physician: Dr. Bailey Toribio MD - History of Present Illness The patient is a 74 year old F with PMH as below, recently hospitalized for seizures and acute on chronic renal failure/CHF from 09/29-10/07, presented back to the ED with c/o dyspnea, orthopnea, and lower extremity edema. Palliative care consultation while in the hospital for her frequent readmissions and overall weakness in the setting of her multiple comorbid conditions. She had been discharged to [facility] for further rehab. Since then, she has been progressively short of breath and was unable to participate much in therapy. Also has been more lethargic. She required temporary dialysis while hospitalized, which was discontinued when [facility] was [facility]. Her GFR had been maintaining above 20. Was following with Dr. Steward. Her Lasix was discontinued upon discharge as well. Patient was admitted for further evaluation and management. Diagnoses include acute on chronic CHF with preserved ejection fraction, anasarca, CKD stage IV. She was put on IV Lasix, strict ISIDORO's, and daily weights. Patient is on CPAP for her ELENITA. Lisinopril is being held. Around , a rapid response was called. Patient became unresponsive but had a pulse and was breathing. Initially would not respond to verbal commands, later had some mild shakiness. EKG showed a junctional rhythm with heart rate of 50, again she had syncopal episodes during her last admission. Her Vimpat was continued and was given an amp of D50 due to blood sugar in the 70s. Nephrology was again consulted, who reported patient main again need dialysis if unresponsive to IV Lasix. Nicole was inserted for strict I&O with aggressive diuresis. Palliative care was again consulted. Patient reports shortness of breath has improved since admission. She still feels quite swollen up to her abdomen. She is on a Lasix drip. Denies any significant pain. Currently alert and oriented. She has IV lorazepam. Seizures. Bowels are moving okay. She is fatigued. Once stable, plan is to discharge patient back to [facility] for further rehab. Next of kin is Beverly Butler, her daughter. Phone number [phone]. Patient Problems: Chronic Problems Thrombocytopenia (Chronic) Seizure disorder (Chronic) CKD (chronic kidney disease) stage 4, GFR 15-29 ml/min (Chronic) Iron deficiency anemia (Chronic) Coronary artery disease (Chronic) Depression (Chronic) Bipolar disorder (Chronic) Multiple personality disorder (Chronic) Restless legs syndrome (Chronic) Rheumatoid arthritis (Chronic) Generalized anxiety disorder (Chronic) ELENITA on CPAP (Chronic) COPD (chronic obstructive pulmonary disease) (Chronic) Peripheral neuropathy (Chronic) Esophageal reflux (Chronic) Personal history of Methicillin resistant Staphylococcus aureus infection (Chronic) Obesity (Chronic) Hypertension (Chronic) Diabetes type 2, uncontrolled (Chronic) Hyperlipidemia (Chronic) Cerebrovascular disease (Chronic) Status post acute ischemic stroke No residual deficit Surgical History: appendectomy, cataract, cholecystectomy, hysterectomy, tonsillectomy, - - Glaucoma, abdominal surgery for cyst. Psychiatric History: Anxiety, Bipolar, Depression, - - Multiple personality disorder. Home Medications: Ambulatory Orders Medication Instructions Recorded Insulin Lispro [Humalog KwikPen] 5 unit SUBCUT TIDCM 06/10/19 traZODone [Desyrel] 25 mg PO QHS 06/29/19 Atorvastatin Calcium [Lipitor] 10 mg PO QHS 09/06/19 Ergocalciferol [Vitamin D] 50,000 unit PO KELLOGG 09/06/19 Gabapentin [Neurontin] 200 mg PO BID #0 09/06/19 Escitalopram Oxalate [Lexapro] 10 mg PO DAILY 05/05/20 Torsemide [Demadex] 40 mg PO BID 05/05/20 Amlodipine Besylate [Norvasc] 10 mg PO DAILY 09/29/20 Aspirin 81 mg PO DAILY 09/29/20 Lacosamide [Vimpat] 100 mg PO DAILY 09/29/20 Acetaminophen [Tylenol] 650 mg PO Q4H PRN 10/13/20 Insulin Glargine,Hum.rec.anlog 16 unit SQ BID 10/13/20 [Basaglar Kwikpen U-100] Isosorbide Mononitrate [Isosorbide 30 mg PO DAILY 10/13/20 Mononitrate ER] Lisinopril [Zestril] 10 mg PO DAILY 10/13/20 Metoprolol Succinate 75 mg PO DAILY 10/13/20 Allergies ciprofloxacin [From Cipro] Allergy (Verified 10/13/20 15:20) Rash codeine Allergy (Verified 10/13/20 15:20) Shortness of breath Penicillins Allergy (Verified 10/13/20 15:20) Hives CILLINS Allergy (Uncoded 10/13/20 15:20) Unknown Maternal History Items: Cancer, Diabetes, Heart Disease, Hypertension Paternal History Items: Cancer, Heart Disease - Social History Lives: [facility] Smoking Status: Former smoker Alcohol: None Drugs: None Code Status: DNRCC-A Review of Systems Constitutional: Reports: Anorexia, Malaise, Weakness, Weight Change, Fatigue. Denies: Chills, Fever Eyes: Denies: Vision Change HEENT: Denies: Difficulty Swallowing, Head Aches, Nasal Congestion, Sinus Congestion, Sinus Drainage, Sore Throat Cardiovascular: Reports: Edema, Orthopnea. Denies: Chest Pain, Chest Pressure, Palpitations Respiratory: Reports: Cough, Shortness of Breath, Shortness of breath upon exertion. Denies: Hemoptysis, Shortness of breath at rest, Sputum production, Wheezing Gastrointestinal: Denies: Abdominal Pain, Constipation, Diarrhea, Nausea, Vomiting Genitourinary: Reports: Frequency, - - Nicole. Denies: Dysuria Musculoskeletal: Reports: Back Pain. Denies: Joint Pain, Joint Tenderness Skin: Denies: Rash, Wounds Neurological: Reports: Balance problems. Denies: Focal weakness, Numbness, Tingling Psychiatric: Denies: Anxiety, Depression, Homicidal Ideations, Suicidal Ideations Hematologic/ Lymphatic: Reports: Anemia, Easy Bruising. Denies: Easy Bleeding Physical Exam Subjective: Lying in bed watching TV, denies any current shortness of breath. Denies any current back pain. Complains of feeling very full in her thighs and abdomen. General: Alert, Oriented x3, Cooperative, - - Sleepy but staying awake during conversation HEENT: Atraumatic, Normocephalic Oral: Dry Mucosa Neck: Supple Lungs: No rhonchi, No wheeze, No rales, - - Diminished throughout all cherry Cardiovascular: Regular rate, Regular Rhythm Abdomen: Bowel Sounds Present, Soft, Non Tender, Distended, Obese Extremities: Edema Musculoskeletal: No Tenderness to Palpation of Joints or Extremities Neurological: Neuro grossly intact Psych/Mental Status: Normal Affect, Appropriate Objective: Vital Signs Temp Pulse Resp BP Pulse Ox 97.5 F L 61 20 H 146/45 H 96 10/15/20 11:40 10/15/20 11:40 10/15/20 11:40 10/15/20 11:40 10/15/20 11:40 Oxygen Flow Rate (L/min) 1 Oxygen Delivery Method Nasal Cannula Weight: 118 kg Body Mass Index (BMI) 50.8 Finger Stick Blood Glucose 410 Intake and Output for Last 24 Hours 10/13/20 10/14/20 10/15/20 23:59 23:59 23:59 Intake Total 220 / 220 725 / 725 100 / 100 Output Total 2200 / 2200 225 / 225 Balance 220 / 220 -1475 / -1475 -125 / -125 Laboratory Tests Past 24 Hrs 10/15/20 10/15/20 06:10 06:10 WBC 5.1 RBC 2.75 L Hgb 8.7 L Hct 28.4 L MCV 103.3 H MCH 31.6 MCHC 30.6 L RDW Std Deviation 56.7 H RDW Coeff of Kusum 15.1 H Plt Count 84 L MPV 11.0 Sodium 134 L Potassium 4.8 Chloride 100 Carbon Dioxide 28.0 Anion Gap 6 BUN 83 H Creatinine 2.88 H Estim Creat Clear Calc 12.31 Est GFR (MDRD) Af Amer 21 L Est GFR (MDRD) Non-Af 17 L BUN/Creatinine Ratio 28.8 H Glucose 147 H Calcium 8.1 L Assessment/Plan All Active Problems Shortness of breath (Acute) Debility (Acute) CHF (congestive heart failure) (Acute) 74-year-old with history of progressive weakness over the last 8 months, known history of CKD, presented w/SOB and acute CHF, renal failure. Initial palliative consult 10/01/2020. 1. Weakness and debility: Multifactorial, does have chronic back pain but currently controlled. Significant FVO, up to abdomen. multiple poorly managed chronic health conditions 2/2 mobility and ability to f/u with providers. Plan for therapy in hospital, then d/c back to [facility] for ongoing therapy. We will follow-up as an outpatient. 2. Shortness of breath: Again, multifactorial. Will treat underlying cause at this point and be cautious with addition of any opioids given her current intermittent confusion and lethargy, as well as untreated ELENITA. She did have a sleep study scheduled but canceled it several months back. 3. Peripheral neuropathy/RLS: Also does not seem to be well controlled, she is on gabapentin 200 mg twice daily at home. Would caution with medication such as gabapentin and Lyrica given her renal and cardio dysfunction. 4. 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 Christine Steward, but has had difficulty with f/u secondary to her mobility. Recent temporary HD. 5. Seizure disorder/CHF exac/anemia/UTI/sciatica/low back pain/bipolar/multiple personality disorder/COPD/anxiety and depression/GERD/T2DM/HLD/history of CVA: Complicates overall care, management, recovery, and prognosis. Encouraged her to f/u more closely with her specialists and PCP as there are telehealth visits available as well. Defer management to her care team. She is agreeable to continue palliative, we will f/u as outpatient. Thank you for the opportunity to participate in this patient's care, please do not hesitate to contact [facility] with any further questions or concerns. Palliative direct line is [phone]. We will follow up approximately 3 days after discharge. Greater than 50% of F2F visit dedicated to education and counseling of palliati ve care services, medications, comorbid conditions and potential assistance with management, and plan of care moving forward. Start time: 1413 End time: 1454 Total time: 41 minutes
--- NOTE | 2020-10-15 15:37 | CHAPLAIN ---
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
[2020-10-15 17:36] LABS: Bedside Glucose 162 mg/dL (70-110)
[2020-10-15] MEDS: Atorvastatin Calcium 10 MG Tablet PO (21:15)
[2020-10-15] MEDS: traZODone 50 MG Tablet 25 MG PO (21:15)
[2020-10-15 21:25] LABS: Bedside Glucose 140 mg/dL (70-110)
[2020-10-16] VITALS (10 sets, daily range): BP systolic 111–143; BP diastolic 44–67; PULSE 58–71; RESP 16–20; TEMP 36.2–36.7; O2SAT 94–97
[2020-10-16] MEDS: Heparin Injection (Vial) 5,000 UNIT/ML VIAL 5000 UNIT SC ×2 (06:19→13:53)
[2020-10-16 06:35] LABS: Absolute Lymphocyte Count 0.91 X10^3/uL (0.83-4.51); Absolute Neutrophil Count 2.8 X10^3/uL (2.0-7.7); Basophil# 0.04 X10^3/uL; Basophil% 0.9 % (0-1); Eosinophil# 0.15 X10^3/uL; Eosinophils% 3.2 % (0-5); Hematocrit 26.1 % (37-47); Lymphocyte # 0.91 X10^3/ul (0.83-4.51); Lymphocyte % 19.7 % (19-41); Mean Corp Hgb Conc 30.7 g/dL (32-36); Mean Corpuscular Volume 101.2 fL (81-99); Monocyte# 0.71 X10^3/uL; Monocyte% 15.4 % (0-10); NRBC Flagged by Analyzer 0 % (0-5); Neutrophil % 60.6 % (47-70); POSITIVE COUNT YES; Platelet Count 80 K/mm3 (150-450); RBC Distribution Width CV 15.2 % (11.6-14.6); RBC Distribution Width SD 56.8 fl (35.1-43.9); Red Blood Count 2.58 M/mm3 (4.2-5.4); White Blood Count 4.6 K/mm3 (4.4-11.0)
[2020-10-16 06:55] LABS: Albumin, Serum 2.2 g/dL (3.2-5.0); BUN 89 mg/dL (7-18); Calcium,Total 8.1 mg/dL (8.5-10.1); Chloride 102 mmol/L (98-107); Creatinine, Serum 2.87 mg/dL (0.55-1.02); EST Glomerular Filtration Rate 17 mL/min (>60); Est Glom Filt Rate - Afr Amer 21 mL/min (>60); Estimated Creatinine Clearance 12.35 ml/min; Glucose 70 mg/dL (74-106); Iron 39 ug/dL (50-170); Iron Binding Capacity,Total 376 ug/dL (250-450); PERCENT IRON SATURATION 10.4 % (15.0-55.0); Phosphorus 5.3 mg/dL (2.5-4.9); Potassium 4.9 mmol/L (3.5-5.1); Sodium Level 134 mmol/L (136-145)
[2020-10-16] MEDS: Lacosamide 100 MG Tablet PO (09:04)
[2020-10-16] MEDS: Aspirin 81 MG TAB.CHEW PO (09:05)
[2020-10-16] MEDS: Isosorbide Mononitrate 30 MG Tablet PO (09:05)
[2020-10-16] MEDS: amLODIPine 10 MG Tablet PO (09:05)
[2020-10-16] MEDS: Nystatin Powder 15gm Bottle 1 APPLIC TOPICAL ×2 (09:05→21:46)
[2020-10-16] MEDS: Escitalopram Oxalate 10 MG Tablet PO (09:05)
[2020-10-16] MEDS: Gabapentin 100 MG Capsule 200 MG PO ×2 (09:05→16:11)
[2020-10-16 09:15] LABS: Bedside Glucose 84 mg/dL (70-110)
--- NOTE | 2020-10-16 10:40 | PCM.PN.REN ---
Patient Problems: Active and Suspected Problems Shortness of breath (Acute) Debility (Acute) CHF (congestive heart failure) (Acute) Subjective: up to chair, diuresing well on lasix drip. Still with anasarca, weakness, unable to get out of chair requiring assist. Denies nausea, vomiting. Creatinine unchanged today. Agrees to dialysis if needed. - Physical Exam Vitals/I&O's: Vital Signs Temp Pulse Resp BP Pulse Ox 98.0 F 59 L 16 127/57 H 97 10/16/20 06:30 10/16/20 06:51 10/16/20 06:30 10/16/20 06:30 10/16/20 06:30 Oxygen Flow Rate (L/min) 2 Oxygen Delivery Method Nasal Cannula Weight: 117.5 kg Body Mass Index (BMI) 50.8 Finger Stick Blood Glucose 410 Intake and Output for Last 24 Hours 10/14/20 10/15/20 10/16/20 23:59 23:59 23:59 Intake Total 725 / 725 640 / 640 0 / 0 Output Total 2200 / 2200 1575 / 1575 700 / 700 Balance -1475 / -1475 -935 / -935 -700 / -700 General: Alert, Oriented x3, Cooperative, No apparent distress Lungs: Clear to auscultation, Diminished Cardiovascular: Regular rate Abdomen: Bowel Sounds Present, Soft, Distended, Obese Extremities: Edema - anasarca to waist Musculoskeletal: - - muscle weakness Psych/Mental Status: Normal Affect, Appropriate, Alert and oriented to time, place, person, mood and affect Laboratory Results 10/15/20 11:32: POC Glucose 181 H 10/15/20 16:34: POC Glucose 162 H 10/15/20 21:14: POC Glucose 140 H 10/16/20 05:55: Sodium 134 L, Potassium 4.9, Chloride 102, Carbon Dioxide 28.0, BUN 89 H, Creatinine 2.87 H, Estim Creat Clear Calc 12.35, Est GFR (MDRD) Af Amer 21 L, Est GFR (MDRD) Non-Af 17 L, BUN/Creatinine Ratio 31.0 H, Glucose 70 L, Calcium 8.1 L, Phosphorus 5.3 H, Iron 39 L, TIBC 376, Iron Saturation 10.4 L, Albumin 2.2 L 10/16/20 05:55: WBC 4.6, RBC 2.58 L, Hgb 8.0 L, Hct 26.1 L, MCV 101.2 H, MCH 31.0, MCHC 30.7 L, RDW Std Deviation 56.8 H, RDW Coeff of Kusum 15.2 H, Plt Count 80 L, MPV 11.0, Immature Gran % (Auto) 0.200, Neut % (Auto) 60.6, Lymph % (Auto) 19.7, Power % (Auto) 15.4 H, Eos % (Auto) 3.2, Baso % (Auto) 0.9, Absolute Neuts (auto) 2.8, Absolute Lymphs (auto) 0.91, Nucleated RBC % 0 10/16/20 09:03: POC Glucose 84 Current Medications Acetaminophen (Acetaminophen 325 Mg Tablet) 650 mg PO Q6H PRN PRN PRN Reason: Pain Score 1-10/Temp > 100.7 F Amlodipine Besylate (Amlodipine 10 Mg Tablet) 10 mg PO DAILY [facility] Last Admin: 10/16/20 09:05 Dose: 10 mg Documented by: Aspirin (Aspirin 81 Mg Tab.Chew) [facility] Admin: 10/16/20 09:05 Dose: 81 mg Documented by: Atorvastatin Calcium (Atorvastatin Calcium 10 Mg Tablet) 10 mg PO QHS [facility] Last Admin: 10/15/20 21:15 Dose: 10 mg Documented by: Escitalopram Oxalate (Escitalopram Oxalate 10 Mg Tablet) 10 mg PO DAILY [facility] Last Admin: 10/16/20 09:05 Dose: 10 mg Documented by: Gabapentin (Gab[facility]entin 100 Mg Capsule) [facility] Admin: 10/16/20 09:05 Dose: 200 mg Documented by: Heparin Sodium (Porcine) (Heparin Injection (Vial) 5,000 Unit/Ml Vial) 5,000 unit SC Q8 [facility] Last Admin: 10/16/20 06:19 Dose: 5,000 unit Documented by: Sodium Chloride () 250 mls @ 15 mls/hr IV .[id number] PRN PRN Reason: Saline Flush Sodium Chloride () 250 mls @ 15 mls/hr IV .[id number] PRN PRN Reason: Additional IVPB Infusion Furosemide 500 mg/ N/A 50 mls @ 2 mls/hr CONT INF .Q25H [facility] Last Admin: 10/15/20 13:26 Dose: 20 mg/hr, 2 mls/hr Documented by: Insulin Glargine (Insulin Glargine 100 Units/Ml Pen) 16 units SC BID [facility] Last Admin: 10/16/20 09:04 Dose: Not Given Documented by: Insulin Human Lispro (Insulin Lispro 100 Unit/Ml Insuln.Pen) 0 unit SC ACHS [facility]; Protocol Last Admin: 10/16/20 09:03 Dose: Not Given Documented by: Insulin Human Lispro (Insulin Lispro 100 Unit/Ml Insuln.Pen) 5 unit SC TIDCM [facility] Last Admin: 10/16/20 09:03 Dose: Not Given Documented by: Isosorbide Mononitrate (Isosorbide Mononitrate 30 Mg Tablet) 30 mg PO DAILY [facility] Last Admin: 10/16/20 09:05 Dose: 30 mg Documented by: Lacosamide (Lacosamide 100 Mg Tablet) 100 mg PO DAILY [facility] Last Admin: 10/16/20 09:04 Dose: 100 mg Documented by: Lorazepam (Lorazepam 2 Mg/Ml Syringe) 2 mg IV PRN PRN PRN Reason: for seizure Nystatin (Nystatin Powder 15gm Bottle) 1 applic TOPICAL BID [facility]; Protocol Last Admin: 10/16/20 09:05 Dose: 1 applic Documented by: Ondansetron HCl (Ondansetron 4 Mg/2 Ml Vial) 4 mg IV Q8H PRN PRN PRN Reason: NAUSEA/VOMITING Senna/Docusate Sodium (Senna/Docusate Sodium 1 Tablet) 2 tablet PO BID PRN PRN PRN Reason: Constipation Sodium Chloride (0.9% Saline Lock 10 Ml Syringe) 10 - 40 ml IV UD PRN PRN Reason: SALINE FLUSH Last Admin: 10/15/20 13:25 Dose: 10 ml Documented by: Trazodone HCl (Trazodone 50 Mg Tablet) 25 mg PO QHS [facility] Last Admin: 10/15/20 21:15 Dose: 25 mg Documented by: Medical Necessity - Tobacco Use Smoking Status: Former smoker Assessment/Plan All Active Problems Shortness of breath (Acute) Debility (Acute) CHF (congestive heart failure) (Acute) 1. Acute on CKD Stage 4. Creatinine unchanged at 2.8 with baseline 2.0. Underlying diabetic nephropathy with 24h urine CRCL 20cc/min last admit. Diuresing well on lasix drip. Continue to monitor renal fxn. No urgency to initiate dialysis at this time. 2. Diastolic CHF on lasix drip 3. DM2 pcp mgmt 4. Seizure disorder 5. Bipolar disease 6. Anasarca with hypoalbuminemia. 7. iron def anemia hgb 8.7g. continue iv iron load
[2020-10-16] MEDS: Furosemide 500 MG in Empty Viaflex 50 mL 1 EACH CONT INF (11:28)
[2020-10-16 11:36] LABS: Bedside Glucose 138 mg/dL (70-110)
--- NOTE | 2020-10-16 12:52 | CASEMGMT ---
ANNIE called Valentina with [facility] and left her a voice mail letting her know that patient will likely be here through the weekend. Katelynn ANDRADE
[2020-10-16] MEDS: 0.9% Saline Lock 10 ML Syringe IV (13:53)
--- NOTE | 2020-10-16 14:50 | CON.PCM_ITS ---
Problem List (1) CKD (chronic kidney disease) stage 4, GFR 15-29 ml/min Status: Chronic Reason for Consult Date of Consultation: 10/16/20 History of Present Illness: he patient is a 74 year old F with CKD stage 4 due to diabetes, baseline creatinine 2.0 with 24h urine CRCL 20cc/min during last hospitalization readmitted for increased weight gain, shortness of breath. Denies nausea, vomiting. She was recently diagnosed and treated for seizures. She had [employer] called last night for altered mental status, confusion. Creatinine 2.8 on admission with poor urine output. Complains of urgency but no urine output. She is up eating breakfast. She was discharged on 10/07 to [facility] on oral lasix 40mg twice a day. She is on iv lasix with minimal urine output. She remains edematous that is unchanged. Albumin remains low at 2.5. Mental status is back to baseline. Patient has improved while being in the hospital but will need long-term dialysis for at least a short period. Past Medical History Past Medical History (Chronic Problems): Chronic Problems Thrombocytopenia (Chronic) Seizure disorder (Chronic) CKD (chronic kidney disease) stage 4, GFR 15-29 ml/min (Chronic) Iron deficiency anemia (Chronic) Coronary artery disease (Chronic) Depression (Chronic) Bipolar disorder (Chronic) Multiple personality disorder (Chronic) Restless legs syndrome (Chronic) Rheumatoid arthritis (Chronic) Generalized anxiety disorder (Chronic) ELENITA on CPAP (Chronic) COPD (chronic obstructive pulmonary disease) (Chronic) Peripheral neuropathy (Chronic) Esophageal reflux (Chronic) Personal history of Methicillin resistant Staphylococcus aureus infection (Chronic) Obesity (Chronic) Hypertension (Chronic) Diabetes type 2, uncontrolled (Chronic) Hyperlipidemia (Chronic) Cerebrovascular disease (Chronic) Status post acute ischemic stroke No residual deficit Allergies ciprofloxacin [From Cipro] Allergy (Verified 10/13/20 15:20) Rash codeine Allergy (Verified 10/13/20 15:20) Shortness of breath Penicillins Allergy (Verified 10/13/20 15:20) Hives CILLINS Allergy (Uncoded 10/13/20 15:20) Unknown Home Medications: Ambulatory Orders Medication Instructions Recorded Insulin Lispro [Humalog KwikPen] 5 unit SUBCUT TIDCM 06/10/19 traZODone [Desyrel] 25 mg PO QHS 06/29/19 Atorvastatin Calcium [Lipitor] 10 mg PO QHS 09/06/19 Ergocalciferol [Vitamin D] 50,000 unit PO KELLOGG 09/06/19 Gabapentin [Neurontin] 200 mg PO BID #0 09/06/19 Escitalopram Oxalate [Lexapro] 10 mg PO DAILY 05/05/20 Torsemide [Demadex] 40 mg PO BID 05/05/20 Amlodipine Besylate [Norvasc] 10 mg PO DAILY 09/29/20 Aspirin 81 mg PO DAILY 09/29/20 Lacosamide [Vimpat] 100 mg PO DAILY 09/29/20 Acetaminophen [Tylenol] 650 mg PO Q4H PRN 10/13/20 Insulin Glargine,Hum.rec.anlog 16 unit SQ BID 10/13/20 [Radhaaglwilder Basilio U-100] Isosorbide Mononitrate [Isosorbide 30 mg PO DAILY 10/13/20 Mononitrate ER] Lisinopril [Zestril] 10 mg PO DAILY 10/13/20 Metoprolol Succinate 75 mg PO DAILY 10/13/20 Surgical History: appendectomy, cataract, cholecystectomy, hysterectomy, tonsillectomy, - - Glaucoma, abdominal surgery for cyst. Psychiatric History: Anxiety, Bipolar, Depression, - - Multiple personality disorder. 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 Lives: Intermediate Smoking Status: Former smoker Alcohol: None Drugs: None - *Family History Maternal History Items: Cancer, Diabetes, Heart Disease, Hypertension Paternal History Items: Cancer, Heart Disease Review of Systems Constitutional: Denies: Chills, Fever, Weight Change Cardiovascular: Denies: Chest Pain, Chest Pressure, Chest Tightness, Palpitations Respiratory: Denies: Cough, Hemoptysis, Shortness of breath at rest, Shortness of breath upon exertion, Wheezing Gastrointestinal: Denies: Abdominal Pain, Constipation, Diarrhea, Hematemesis, Nausea, Melena, Vomiting Patient Problems: Active and Suspected Problems Shortness of breath (Acute) Debility (Acute) CHF (congestive heart failure) (Acute) - Physical Exam Vitals/I&O's: Vital Signs Temp Pulse Resp BP Pulse Ox 97.2 F L 67 20 H 143/49 H 94 10/16/20 12:30 10/16/20 12:30 10/16/20 12:30 10/16/20 12:30 10/16/20 12:30 Oxygen Flow Rate (L/min) 91 Oxygen Delivery Method Room Air Weight: 259 lb 0.69 oz Body Mass Index (BMI) 50.8 Finger Stick Blood Glucose 410 Intake and Output for Last 24 Hours 10/14/20 10/15/20 10/16/20 23:59 23:59 23:59 Intake Total 725 / 725 640 / 640 514.07 / 514.07 Output Total 2200 / 2200 1575 / 1575 1725 / 1725 Balance -1475 / -1475 -935 / -935 -1210.93 / -1210.93 General: Alert, Oriented x3 Lungs: Clear to auscultation Cardiovascular: Regular rate, Regular Rhythm, No murmurs Abdomen: Bowel Sounds Present, Soft, Non Tender, Non-Distended Laboratory Results 10/15/20 16:34: POC Glucose 162 H 10/15/20 21:14: POC Glucose 140 H 10/16/20 05:55: Sodium 134 L, Potassium 4.9, Chloride 102, Carbon Dioxide 28.0, BUN 89 H, Creatinine 2.87 H, Estim Creat Clear Calc 12.35, Est GFR (MDRD) Af Amer 21 L, Est GFR (MDRD) Non-Af 17 L, BUN/Creatinine Ratio 31.0 H, Glucose 70 L , Calcium 8.1 L, Phosphorus 5.3 H, Iron 39 L, TIBC 376, Iron Saturation 10.4 L, Albumin 2.2 L 10/16/20 05:55: WBC 4.6, RBC 2.58 L, Hgb 8.0 L, Hct 26.1 L, MCV 101.2 H, MCH 31.0, MCHC 30.7 L, RDW Std Deviation 56.8 H, RDW Coeff of Kusum 15.2 H, Plt Count 80 L, MPV 11.0, Immature Gran % (Auto) 0.200, Neut % (Auto) 60.6, Lymph % (Auto) 19.7, [place] % (Auto) 15.4 H, Eos % (Auto) 3.2, Baso % (Auto) 0.9, Absolute Neuts (auto) 2.8, Absolute Lymphs (auto) 0.91, Nucleated RBC % 0 10/16/20 09:03: POC Glucose 84 10/16/20 11:27: POC Glucose 138 H Current Medications Acetaminophen (Acetaminophen 325 Mg Tablet) 650 mg PO Q6H PRN PRN PRN Reason: Pain Score 1-10/Temp > 100.7 F Amlodipine Besylate (Amlodipine 10 Mg Tablet) 10 mg PO DAILY [facility] Last Admin: 10/16/20 09:05 Dose: 10 mg Documented by: Aspirin (A[facility] 81 [facility].Chew) [facility] Last Admin: 10/16/20 09:05 Dose: 81 mg Documented by: Atorvastatin Calcium (Atorvastatin Calcium 10 Mg Tablet) 10 mg PO QHS [facility] Last Admin: 10/15/20 21:15 Dose: 10 mg Documented by: Escitalopram Oxalate (Escitalopram Oxalate 10 Mg Tablet) 10 mg PO DAILY [facility] Last Admin: 10/16/20 09:05 Dose: 10 mg Documented by: Gabapentin ([facility] Mg Capsule) [facility] Last Admin: 10/16/20 09:05 Dose: 200 mg Documented by: Heparin Sodium (Porcine) (Heparin Injection (Vial) 5,000 Unit/Ml Vial) 5,000 unit SC Q8 [facility] Last Admin: 10/16/20 13:53 Dose: 5,000 unit Documented by: Sodium Chloride () 250 mls @ 15 mls/hr IV .[id number] PRN PRN Reason: Saline Flush Sodium Chloride () 250 mls @ 15 mls/hr IV .[id number] PRN PRN Reason: Additional IVPB Infusion Furosemide 500 mg/ N/A 50 mls @ 2 mls/hr CONT INF .Q25H [facility] Last Admin: 10/16/20 11:28 Dose: 20 mg/hr, 2 mls/hr Documented by: Insulin Glargine (Insulin Glargine 100 Units/Ml Pen) 16 units SC BID [facility] Last Admin: 10/16/20 09:04 Dose: Not Given Documented by: Insulin Human Lispro (Insulin Lispro 100 Unit/Ml Insuln.Pen) 0 unit SC ACHS [facility]; Protocol Last Admin: 10/16/20 11:28 Dose: Not Given Documented by: Insulin Human Lispro (Insulin Lispro 100 Unit/Ml Insuln.Pen) 5 unit SC TIDCM [facility] Last Admin: 10/16/20 11:29 Dose: Not Given Documented by: Isosorbide Mononitrate (Isosorbide Mononitrate 30 Mg Tablet) 30 mg PO DAILY [facility] Last Admin: 10/16/20 09:05 Dose: 30 mg Documented by: Lacosamide (Lacosamide 100 Mg Tablet) 100 mg PO DAILY [facility] Last Admin: 10/16/20 09:04 Dose: 100 mg Documented by: Lorazepam (Lorazepam 2 Mg/Ml Syringe) 2 mg IV PRN PRN PRN Reason: for seizure Nystatin (Nystatin Powder 15gm Bottle) 1 applic TOPICAL BID [facility]; Protocol Last Admin: 10/16/20 09:05 Dose: 1 applic Documented by: Ondansetron HCl (Ondansetron 4 Mg/2 Ml Vial) 4 mg IV Q8H PRN PRN PRN Reason: NAUSEA/VOMITING Senna/Docusate Sodium (Senna/Docusate Sodium 1 Tablet) 2 tablet PO BID PRN PRN PRN Reason: Constipation Sodium Chloride (0.9% Saline Lock 10 Ml Syringe) 10 - 40 ml IV UD PRN PRN Reason: SALINE FLUSH Last Admin: 10/16/20 13:53 Dose: 10 ml Documented by: Trazodone HCl (Trazodone 50 Mg Tablet) 25 mg PO QHS [facility] Last Admin: 10/15/20 21:15 Dose: 25 mg Documented by: Assessment/Plan All Active Problems Shortness of breath (Acute) Debility (Acute) CHF (congestive heart failure) (Acute) Family to placement of a right-sided tunneled dialysis catheter tomorrow morning at 8:00 in the morning. We will hold her heparin for tonight and in the morning. And will resume once the catheter is in place. Risk benefits to the procedure to include bleeding possible pneumothorax infection have all been reviewed with the patient the patient agrees to proceed all questions asked were answered.
--- NOTE | 2020-10-16 15:12 | PCM.PN.HOSP ---
<Alfred Liang - Last Filed: 10/16/20 15:12> Patient Problems: Active and Suspected Problems Shortness of breath (Acute) Debility (Acute) CHF (congestive heart failure) (Acute) Subjective: Patient is a 74-year-old female who is resting in bed, alert and oriented x3. Patient still complains of feeling like very congested, complains of still having a lot of fluid on her. Patient reports mild shortness of breath, which she relates to her fluid congestion. Denies chest pain, palpitations, fever, chills, N/V/D. Objective: Clinical Impression(s) from Imaging Studies Chest X-Ray 10/13/20 16:03 IMPRESSION: Moderate right pleural effusion. Basilar infiltrate cannot be excluded. Left lower lobe scarring and possible retrocardiac infiltrate. Electronically Signed: Tao Simpson DO at 17:33 EDT Tel [phone], Service support , Vitals/I&O's: Vital Signs Temp Pulse Resp BP Pulse Ox 97.2 F L 68 20 H 143/49 H 94 10/16/20 12:30 10/16/20 15:00 10/16/20 12:30 10/16/20 12:30 10/16/20 12:30 Oxygen Flow Rate (L/min) 91 Oxygen Delivery Method Room Air Weight: 259 lb 0.69 oz Body Mass Index (BMI) 50.8 Finger Stick Blood Glucose 410 Intake and Output for Last 24 Hours 10/14/20 10/15/20 10/16/20 23:59 23:59 23:59 Intake Total 725 / 725 640 / 640 514.07 / 514.07 Output Total 2200 / 2200 1575 / 1575 1725 / 1725 Balance -1475 / -1475 -935 / -935 -1210.93 / -1210.93 General: Alert, Oriented x3, Cooperative HEENT: Atraumatic, PERRLA, EOMI, Normocephalic Neck: Supple, No JVD, Negative Carotid Bruits Lungs: Diminished, Short of Breath, Wheezes Cardiovascular: Regular rate, No murmurs Abdomen: Bowel Sounds Present, Soft, Non Tender Extremities: No edema, Capillary Refill Less than 3 Seconds Skin: No rashes, No breakdown Musculoskeletal: No Tenderness to Palpation of Joints or Extremities Neurological: Cranial nerves II-XII grossly intact Psych/Mental Status: Normal Affect Laboratory Results 10/15/20 16:34: POC Glucose 162 H 10/15/20 21:14: POC Glucose 140 H 10/16/20 05:55: Sodium 134 L, Potassium 4.9, Chloride 102, Carbon Dioxide 28.0, BUN 89 H, Creatinine 2.87 H, Estim Creat Clear Calc 12.35, Est GFR (MDRD) Af Amer 21 L, Est GFR (MDRD) Non-Af 17 L, BUN/Creatinine Ratio 31.0 H, Glucose 70 L, Calcium 8.1 L, Phosphorus 5.3 H, Iron 39 L, TIBC 376, Iron Saturation 10.4 L, Albumin 2.2 L 10/16/20 05:55: WBC 4.6, RBC 2.58 L, Hgb 8.0 L, Hct 26.1 L, MCV 101.2 H, MCH 31.0, MCHC 30.7 L, RDW Std Deviation 56.8 H, RDW Coeff of Kusum 15.2 H, Plt Count 80 L, MPV 11.0, Immature Gran % (Auto) 0.200, Neut % (Auto) 60.6, Lymph % (Auto) 19.7, [place] % (Auto) 15.4 H, Eos % (Auto) 3.2, Baso % (Auto) 0.9, Absolute Neuts (auto) 2.8, Absolute Lymphs (auto) 0.91, Nucleated RBC % 0 10/16/20 09:03: POC Glucose 84 10/16/20 11:27: POC Glucose 138 H Current Medications Acetaminophen (Acetaminophen 325 Mg Tablet) 650 mg PO Q6H PRN PRN PRN Reason: Pain Score 1-10/Temp > 100.7 F Amlodipine Besylate (Amlodipine 10 Mg Tablet) 10 mg PO DAILY [facility] Last Admin: 10/16/20 09:05 Dose: 10 mg Documented by: Aspirin ([facility]in 81 Mg [facility].Chew) [facility] Last Admin: 10/16/20 09:05 Dose: 81 mg Documented by: Atorvastatin Calcium (Atorvastatin Calcium 10 Mg Tablet) 10 mg PO QHS [facility] Last Admin: 10/15/20 21:15 Dose: 10 mg Documented by: Escitalopram Oxalate (Escitalopram Oxalate 10 Mg Tablet) 10 mg PO DAILY [facility] Last Admin: 10/16/20 09:05 Dose: 10 mg Documented by: Gabapentin (Gabapentin 100 Mg Capsule) 200 mg PO BIDCM [facility] Last Admin: 10/16/20 09:05 Dose: 200 mg Documented by: Heparin Sodium (Porcine) (Heparin Injection (Vial) 5,000 Unit/Ml Vial) 5,000 unit SC Q8 [facility] Last Admin: 10/16/20 13:53 Dose: 5,000 unit Documented by: Sodium Chloride () 250 mls @ 15 mls/hr IV .[id number] PRN PRN Reason: Saline Flush Sodium Chloride () 250 mls @ 15 mls/hr IV .[id number] PRN PRN Reason: Additional IVPB Infusion Furosemide 500 mg/ N/A 50 mls @ 2 mls/hr CONT INF .Q25H [facility] Last Admin: 10/16/20 11:28 Dose: 20 mg/hr, 2 mls/hr Documented by: Clindamycin Phosphate 900 mg/ (Dextrose) 106 mls @ 150 mls/hr IV PREOP ONE Stop: 10/16/20 15:46 Insulin Glargine (Insulin Glargine 100 Units/Ml Pen) 16 units SC BID [facility] Last Admin: 10/16/20 09:04 Dose: Not Given Documented by: Insulin Human Lispro (Insulin Lispro 100 Unit/Ml Insuln.Pen) 0 unit SC ACHS [facility]; Protocol Last Admin: 10/16/20 11:28 Dose: Not Given Documented by: Insulin Human Lispro (Insulin Lispro 100 Unit/Ml Insuln.Pen) 5 unit SC TIDCM [facility] Last Admin: 10/16/20 11:29 Dose: Not Given Documented by: Isosorbide Mononitrate (Isosorbide Mononitrate 30 Mg Tablet) 30 mg PO DAILY [facility] Last Admin: 10/16/20 09:05 Dose: 30 mg Documented by: Lacosamide (Lacosamide 100 Mg Tablet) 100 mg PO DAILY [facility] Last Admin: 10/16/20 09:04 Dose: 100 mg Documented by: Lorazepam (Lorazepam 2 Mg/Ml Syringe) 2 mg IV PRN PRN PRN Reason: for seizure Nystatin (Nystatin Powder 15gm Bottle) 1 applic TOPICAL BID [facility]; Protocol Last Admin: 10/16/20 09:05 Dose: 1 applic Documented by: Ondansetron HCl (Ondansetron 4 Mg/2 Ml Vial) 4 mg IV Q8H PRN PRN PRN Reason: NAUSEA/VOMITING Senna/Docusate Sodium (Senna/Docusate Sodium 1 Tablet) 2 tablet PO BID PRN PRN PRN Reason: Constipation Sodium Chloride (0.9% Saline Lock 10 Ml Syringe) 10 - 40 ml IV UD PRN PRN Reason: SALINE FLUSH Last Admin: 10/16/20 13:53 Dose: 10 ml Documented by: Trazodone HCl (Trazodone 50 Mg Tablet) 25 mg PO QHS [facility] Last Admin: 10/15/20 21:15 Dose: 25 mg Documented by: STROKE Vital Signs/Narrative: Vital Signs Temp Pulse Resp BP Pulse Ox 10/16/20 15:00 68 10/16/20 12:30 97.2 F L 67 20 H 143/49 H 94 Medical Necessity - Tobacco Use Smoking Status: Former smoker Assessment/Plan All Active Problems Shortness of breath (Acute) Debility (Acute) CHF (congestive heart failure) (Acute) Patient is a 74-year-old female who presented to the ED on 10/13/2020 with a chief complaint of increased weight gain, shortness of breath and increased swelling. Today patient reports that she feels like her congestion is getting worse, and that her shortness of breath has returned. Patient, family, hospital medicine team and assistant merchandise manager are in agreement that the patient needs to be dialyzed in order to relieve her fluid congestion. General surgery consult ordered; tunneled dialysis catheter placement scheduled for 10/17/2020 at 8 AM. 1) Acute on chronic CHF with preserved ejection fraction with anasarca Tunneled dialysis catheter placement scheduled for 10/17/2020 at 8 AM. Strict I&O and daily weights. Treatment complicated by CKD stage IV. 2) CKD stage IV Tunneled dialysis catheter placement scheduled for 10/17/2020 at 8 AM. 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 3) DM2 Continue home long-acting insulin regimen. Continue Accu-Cheks with sliding scale insulin. 4) ELENITA Continue CPAP 5) COPD Continue albuterol aerosol as needed 6) Hypertension Stable, continue amlodipine and metoprolol. Continue to hold lisinopril. 7) Hyperlipidemia Continue statin. 8) history of CVA Continue aspirin and statin. 9) Bipolar disorder/depression Continue on Lexapro. 10) Anemia of chronic disease Stable, continue to monitor CBC. 11) Seizure disorder Continue Vimpat. DVT Prophylaxis -Heparin SC Patient seen by Alfred Liang PA-C, under the supervision of Dr. Steward. <BinNateLeslee - Last Filed: 10/16/20 15:37> Subjective: Patient notes that she is feeling better slowly but still has mild shortness of breath and increased edema. She is diuresing but complete diuresis has been difficult. Vitals/I&O's: Vital Signs Temp Pulse Resp BP Pulse Ox 97.2 F L 68 20 H 143/49 H 94 10/16/20 12:30 10/16/20 15:00 10/16/20 12:30 10/16/20 12:30 10/16/20 12:30 Oxygen Flow Rate (L/min) 91 Oxygen Delivery Method Room Air Weight: 117.5 kg Body Mass Index (BMI) 50.8 Finger Stick Blood Glucose 410 Intake and Output for Last 24 Hours 10/14/20 10/15/20 10/16/20 23:59 23:59 23:59 Intake Total 725 / 725 640 / 640 514.07 / 514.07 Output Total 2200 / 2200 1575 / 1575 1725 / 1725 Balance -1475 / -1475 -935 / -935 -1210.93 / -1210.93 General: Alert, Oriented x3, Cooperative, No apparent distress, Well developed, Well nourished, - - Elderly white female sitting up in a bedside chair, appears comfortable at this time still marked anasarca from her abdomen to her toes HEENT: Atraumatic, PERRLA, EOMI, Normocephalic Oral: Moist Mucosa Neck: Supple, Trachea Midline Lungs: No rhonchi, No wheeze, Diminished, Rales - Bilateral bases Cardiovascular: Regular rate, Regular Rhythm, Normal S1, Normal S2, No murmurs, No Ectopic Activity, No rub noted, No Gallop Abdomen: Bowel Sounds Present, Soft, Non Tender, Non-Distended, Obese, - - Acute anasarca Extremities: No clubbing, No cyanosis, Capillary Refill Less than 3 Seconds, Edema - Severe bilateral lower extremity edema with taut skin and 2-3+ pitting, Peripheral Pulses Normal Skin: No rashes, No breakdown, - - Pale skin Musculoskeletal: No Tenderness to Palpation of Joints or Extremities, No Muscle Wasting, Arthritic Changes Neurological: Cranial nerves II-XII grossly intact, Neuro grossly intact Psych/Mental Status: Normal Affect, Appropriate, - - Very pleasant Laboratory Results 10/15/20 16:34: POC Glucose 162 H 10/15/20 21:14: POC Glucose 140 H 10/16/20 05:55: Sodium 134 L, Potassium 4.9, Chloride 102, Carbon Dioxide 28.0, BUN 89 H, Creatinine 2.87 H, Estim Creat Clear Calc 12.35, Est GFR (MDRD) Af Amer 21 L, Est GFR (MDRD) Non-Af 17 L, BUN/Creatinine Ratio 31.0 H, Glucose 70 L, Calcium 8.1 L, Phosphorus 5.3 H, Iron 39 L, TIBC 376, Iron Saturation 10.4 L, Albumin 2.2 L 10/16/20 05:55: WBC 4.6, RBC 2.58 L, Hgb 8.0 L, Hct 26.1 L, MCV 101.2 H, MCH 31.0, MCHC 30.7 L, RDW Std Deviation 56.8 H, RDW Coeff of Kusum 15.2 H, Plt Count 80 L, MPV 11.0, Immature Gran % (Auto) 0.200, Neut % (Auto) 60.6, Lymph % (Auto) 19.7, [place] % (Auto) 15.4 H, Eos % (Auto) 3.2, Baso % (Auto) 0.9, Absolute Neuts (auto) 2.8, Absolute Lymphs (auto) 0.91, Nucleated RBC % 0 10/16/20 09:03: POC Glucose 84 10/16/20 11:27: POC Glucose 138 H Current Medications Acetaminophen (Acetaminophen 325 Mg Tablet) 650 mg PO Q6H PRN PRN PRN Reason: Pain Score 1-10/Temp > 100.7 F Amlodipine Besylate (Amlodipine 10 Mg Tablet) 10 mg PO DAILY [facility] Last Admin: 10/16/20 09:05 Dose: 10 mg Documented by: Aspirin (Aspirin 81 Mg [facility].Chew) [facility] Last Admin: 10/16/20 09:05 Dose: 81 mg Documented by: Atorvastatin Calcium (Atorvastatin Calcium 10 Mg Tablet) 10 mg PO QHS [facility] Last Admin: 10/15/20 21:15 Dose: 10 mg Documented by: Escitalopram Oxalate (Escitalopram Oxalate 10 Mg Tablet) 10 mg PO DAILY [facility] Last Admin: 10/16/20 09:05 Dose: 10 mg Documented by: Gabapentin (Gabapentin 100 Mg Capsule) 200 mg PO BIDCM [facility] Last Admin: 10/16/20 09:05 Dose: 200 mg Documented by: Heparin Sodium (Porcine) (Heparin Injection (Vial) 5,000 Unit/Ml Vial) 5,000 unit SC Q8 [facility] Last Admin: 10/16/20 13:53 Dose: 5,000 unit Documented by: Sodium Chloride () 250 mls @ 15 mls/hr IV .[id number] PRN PRN Reason: Saline Flush Sodium Chloride () 250 mls @ 15 mls/hr IV .[id number] PRN PRN Reason: Additional IVPB Infusion Furosemide 500 mg/ N/A 50 mls @ 2 mls/hr CONT INF .Q25H [facility] Last Admin: 10/16/20 11:28 Dose: 20 mg/hr, 2 mls/hr Documented by: Clindamycin Phosphate 900 mg/ (Dextrose) 106 mls @ 150 mls/hr IV PREOP ONE Stop: 10/17/20 08:42 Insulin Glargine (Insulin Glargine 100 Units/Ml Pen) 16 units SC BID [facility] Last Admin: 10/16/20 09:04 Dose: Not Given Documented by: Insulin Human Lispro (Insulin Lispro 100 Unit/Ml Insuln.Pen) 0 unit SC ACHS [facility]; Protocol Last Admin: 10/16/20 11:28 Dose: Not Given Documented by: Insulin Human Lispro (Insulin Lispro 100 Unit/Ml Insuln.Pen) 5 unit SC TIDCM [facility] Last Admin: 10/16/20 11:29 Dose: Not Given Documented by: Isosorbide Mononitrate (Isosorbide Mononitrate 30 Mg Tablet) 30 mg PO DAILY [facility] Last Admin: 10/16/20 09:05 Dose: 30 mg Documented by: Lacosamide (Lacosamide 100 Mg Tablet) 100 mg PO DAILY [facility] Last Admin: 10/16/20 09:04 Dose: 100 mg Documented by: Lorazepam (Lorazepam 2 Mg/Ml Syringe) 2 mg IV PRN PRN PRN Reason: for seizure Nystatin (Nystatin Powder 15gm Bottle) 1 applic TOPICAL BID [facility]; Protocol Last Admin: 10/16/20 09:05 Dose: 1 applic Documented by: Ondansetron HCl (Ondansetron 4 Mg/2 Ml Vial) 4 mg IV Q8H PRN PRN PRN Reason: NAUSEA/VOMITING Senna/Docusate Sodium (Senna/Docusate Sodium 1 Tablet) 2 tablet PO BID PRN PRN PRN Reason: Constipation Sodium Chloride (0.9% Saline Lock 10 Ml Syringe) 10 - 40 ml IV UD PRN PRN Reason: SALINE FLUSH Last Admin: 10/16/20 13:53 Dose: 10 ml Documented by: Trazodone HCl (Trazodone 50 Mg Tablet) 25 mg PO QHS [facility] Last Admin: 10/15/20 21:15 Dose: 25 mg Documented by: STROKE Vital Signs/Narrative: Vital Signs Temp Pulse Resp BP Pulse Ox 10/16/20 15:00 68 10/16/20 12:30 97.2 F L 67 20 H 143/49 H 94 Assessment/Plan I agree with the above and the following is representation my independent history and physical examination. ASSESSMENT Acute on chronic HFpEF Chronic hypoxic respiratory failure Secondary PAH WHO class II/III Chronic anemia Mild hyponatremia DEBBIE on CKD stage IV Urinary retention DM-2 ELENITA COPD HTN HPL GERD History of stroke RA Seizure Bipolar Depression MO PLAN -Patient is diuresing but diuresing slowly and BUN is trending up, potassium is currently stable but at 4.9 and she has persistent hyponatremia -At this time I think the patient would benefit from intermittent dialysis/UF to help remove fluid and suspect that this will likely keep her out of the hospital -Discussed with nephrology and she is agreeable -Tunneled dialysis catheter to be placed tomorrow and dialysis to be started after -Continue Lasix drip for now -This was all discussed with the patient and she is agreeable to recurrent dialysis especially if she will be able to stay out of the hospital and feel better -A.m. fasting blood sugar was 70--> decrease Lantus from 16 units twice daily to 10 units twice daily -Her renal failure is causing decreased clearance of her insulins -Palliative care has seen the patient and they will follow up with her 3 days after discharge with the palliative care and hospice nurse to help manage any symptoms she may experience Inpatient E&M: [id number] Subs Hosp L2
[2020-10-16] MEDS: Acetaminophen 325 MG Tablet 650 MG PO (16:13)
[2020-10-16 16:16] LABS: Bedside Glucose 161 mg/dL (70-110)
[2020-10-16] MEDS: Insulin Lispro 100 UNIT/ML INSULN.PEN SC ×3 (17:17→21:47)
[2020-10-16] MEDS: traZODone 50 MG Tablet 25 MG PO (21:45)
[2020-10-16] MEDS: Atorvastatin Calcium 10 MG Tablet PO (21:46)
[2020-10-16 22:16] LABS: Bedside Glucose 204 mg/dL (70-110)
[2020-10-17] VITALS (19 sets, daily range): BP systolic 118–155; BP diastolic 49–109; PULSE 63–73; RESP 15–18; TEMP 36.1–36.5; O2SAT 91–99
[2020-10-17] MEDS: Acetaminophen 325 MG Tablet 650 MG PO (02:44)
[2020-10-17] MEDS: Furosemide 500 MG in Empty Viaflex 50 mL 1 EACH CONT INF (04:21)
[2020-10-17 06:41] LABS: Bedside Glucose 133 mg/dL (70-110)
[2020-10-17 07:15] LABS: Absolute Lymphocyte Count 0.81 X10^3/uL (0.83-4.51); Absolute Neutrophil Count 2.6 X10^3/uL (2.0-7.7); Basophil# 0.04 X10^3/uL; Basophil% 0.9 % (0-1); Eosinophil# 0.15 X10^3/uL; Eosinophils% 3.4 % (0-5); Hematocrit 26.5 % (37-47); Hemoglobin 8.2 g/dL (12.0-15.0); Lymphocyte # 0.81 X10^3/ul (0.83-4.51); Lymphocyte % 18.6 % (19-41); Mean Corp Hgb Conc 30.9 g/dL (32-36); Mean Corpuscular Hgb 31.9 pg (27.0-32.0); Mean Corpuscular Volume 103.1 fL (81-99); Mean Platelet Vol. 10.8 fl (6.2-12.0); Monocyte# 0.72 X10^3/uL; Monocyte% 16.6 % (0-10); NRBC Flagged by Analyzer 0 % (0-5); Neutrophil # 2.62 X10^3/uL (2.7-7.7); Neutrophil % 60.3 % (47-70); POSITIVE COUNT YES; Platelet Count 84 K/mm3 (150-450); RBC Distribution Width SD 56.6 fl (35.1-43.9); Red Blood Count 2.57 M/mm3 (4.2-5.4); White Blood Count 4.4 K/mm3 (4.4-11.0)
[2020-10-17 07:35] LABS: Albumin, Serum 2.2 g/dL (3.2-5.0); Anion Gap 4 (5-15); BUN 87 mg/dL (7-18); BUN/Creat Ratio 31.8 RATIO (10-20); Calcium,Total 8.2 mg/dL (8.5-10.1); Chloride 101 mmol/L (98-107); Creatinine, Serum 2.74 mg/dL (0.55-1.02); EST Glomerular Filtration Rate 18 mL/min (>60); Est Glom Filt Rate - Afr Amer 22 mL/min (>60); Estimated Creatinine Clearance 12.94 ml/min; Glucose 134 mg/dL (74-106); Phosphorus 5.2 mg/dL (2.5-4.9); Potassium 4.7 mmol/L (3.5-5.1); Sodium Level 136 mmol/L (136-145)
[2020-10-17 07:38] LABS: Magnesium 1.9 mg/dL (1.6-2.6)
[2020-10-17] MEDS: 0.9% Saline Lock 10 ML Syringe IV (07:45)
--- NOTE | 2020-10-17 07:56 | NURSING ---
Report called to ERICA Lynch in [place].
--- NOTE | 2020-10-17 08:05 | PCM.OPRPT ---
Problem List (1) CKD (chronic kidney disease) stage 4, GFR 15-29 ml/min Status: Chronic (2) Vascular catheter fitting or adjustment Status: Acute Report of Operation Date of Procedure: 10/17/20 Pre-Operative Diagnosis: 1. End-stage renal disease. 2. Vascular fitting and adjustment Post-Operative Diagnosis: Same Surgery/Procedure Performed:: Placement of a right IJ tunneled dialysis catheter Type of Anesthesia:: Local MAC Anesthesiologist: Zeinab Ortiz Specimen's removed: None Estimated Blood Loss (mL): < 25 cc Description of Procedure: Patient was brought into the operating room. Placed in the supine position. Head was positioned down I ultrasound the neck identify the internal jugular vein marked the neck and chest appropriately neck and chest were then sterilely prepped draped usual fashion. Local was injected into the neck. Seldinger's technique was used to gain access to the internal jugular vein guidewire was placed over the needle the needle was removed fluoroscopy was used to confirm proper placement of the wire. This was done in 1 stick. I took the 19 cm curved dialysis catheter later onto the chest marked appropriately injected local on the chest. I made a skin incision into the chest as well as into the neck. I injected more local above the collarbone up into the neck. I tunneled the catheter from the chest up into the neck. Sequential dilatation was then done into the internal jugular vein. A dilator and sheath were placed over the guidewire dilator and guidewire were removed. Dialysis catheter was placed in the sheath and the sheath was removed. Fluoroscopy was used to show that there was a gentle curve to the dialysis catheter and it looked good. The catheter was then sutured to the skin using 3-0 nylon. Skin incisions were closed with subcuticular stitches of 3-0 Vicryl. Steri-Strips were applied sterile dressings were applied and the patient tolerated the procedure well. Portable chest x-ray was ordered - Admit VTE Documentation VTE Present on Admission: No VTE Mechan Device Prophylaxis: SCD's VTE Pharm Prophylaxis ordered?: No Reason prophylaxis not ordered:: Treatment Not Indicated
[2020-10-17] MEDS: Lidocaine 1% (30 ml sdv) 30 ML Vial (08:14)
[2020-10-17] MEDS: Heparin 10,000 UNITS/10 ML Vial 10000 UNITS (08:14)
[2020-10-17] MEDS: Bupivacaine Mpf 0.5% 30 ML VIAL (08:14)
--- NOTE | 2020-10-17 09:00 | RAD_ITS ---
STUDY: X-RAY CHEST REASON FOR EXAM: Female, 74 years old. Catheter placement. TECHNIQUE: Single AP portable view of the chest. COMPARISON: 10/13/2020. FINDINGS: There is now a right jugular hemodialysis catheter with its tip in the distal superior vena cava. There is no pneumothorax. Persistent right pleural effusion and atelectasis. There is continued bandlike atelectasis at the left hilar region. No new infiltrates are seen. Normal size heart. Normal mediastinum and elva. Normal visualized pulmonary arteries. There is atherosclerotic calcification of the aortic arch with tortuosity. The thoracic spine is obscured by the mediastinum. Normal visualized ribs, clavicles, and shoulders. There is no demonstrated abnormality of the visualized soft tissue structures of the upper abdomen. RAD/Chest 1 View (Portable) IMPRESSION: 1. Right jugular hemodialysis catheter without pneumothorax. 2. Decreased hilar vascular prominence when compared to prior study. Electronically Signed: Wicho Del Angel DO at 9:45 EDT Tel [phone], Service support ,
--- NOTE | 2020-10-17 10:20 | PN_ITS ---
<Alfred Liang - Last Filed: 10/17/20 10:20> Patient Problems: Active and Suspected Problems Shortness of breath (Acute) Debility (Acute) Vascular catheter fitting or adjustment (Acute) CHF (congestive heart failure) (Acute) Subjective: Patient is a 74-year-old female who is recovering in bed after tunneled dialysis catheter placement, alert and oriented x3. Patient's shortness of breath is mild and is about the same as yesterday. Patient is looking forward to being dialyzed today to relieve her fluid congestion. Objective: Clinical Impression(s) from Imaging Studies Chest X-Ray 10/13/20 16:03 IMPRESSION: Moderate right pleural effusion. Basilar infiltrate cannot be excluded. Left lower lobe scarring and possible retrocardiac infiltrate. Electronically Signed: Tao Simpson DO at 17:33 EDT Tel [phone], Service support , Chest X-Ray 10/17/20 09:00 IMPRESSION: 1. Right jugular hemodialysis catheter without pneumothorax. 2. Decreased hilar vascular prominence when compared to prior study. Electronically Signed: Wicho Del Angel DO at 9:45 EDT Tel [phone], Service support , Vitals/I&O's: Vital Signs Temp Pulse Resp BP Pulse Ox 97.5 F L 63 16 122/73 H 96 10/17/20 09:51 10/17/20 09:51 10/17/20 09:51 10/17/20 09:51 10/17/20 09:51 Oxygen Flow Rate (L/min) 2 Oxygen Delivery Method Nasal Cannula Weight: 250 lb 0.067 oz Body Mass Index (BMI) 50.8 Finger Stick Blood Glucose 410 Intake and Output for Last 24 Hours 10/15/20 10/16/20 10/17/20 23:59 23:59 23:59 Intake Total 640 / 640 754.07 / 874.07 266.57 / 266.57 Output Total 1575 / 1575 3025 / 4225 2800 / 2800 Balance -935 / -935 -2270.93 / -3350.93 -2533.43 / -2533.43 General: Alert, Oriented x3, Cooperative HEENT: Atraumatic, PERRLA, EOMI, Normocephalic Neck: Supple, No JVD, Negative Carotid Bruits Lungs: Diminished, Short of Breath Cardiovascular: Regular rate, No murmurs Abdomen: Distended, Obese Extremities: No edema, Capillary Refill Less than 3 Seconds Skin: No rashes, No breakdown Musculoskeletal: No Tenderness to Palpation of Joints or Extremities Neurological: Cranial nerves II-XII grossly intact Psych/Mental Status: Normal Affect, Appropriate Microbiology Past 72 Hours 10/16/20 19:20 Mucosa - Nasopharyngeal SARS-CoV-2 Antigen (Rapid) - Final Laboratory Results 10/16/20 11:27: POC Glucose 138 H 10/16/20 16:10: POC Glucose 161 H 10/16/20 21:42: POC Glucose 204 H 10/17/20 06:34: POC Glucose 133 H 10/17/20 06:40: Sodium 136, Potassium 4.7, Chloride 101, Carbon Dioxide 31.0, Anion Gap 4 L, BUN 87 H, Creatinine 2.74 H, Estim Creat Clear Calc 12.94, Est GFR (MDRD) Af Amer 22 L, Est GFR (MDRD) Non-Af 18 L, BUN/Creatinine Ratio 31.8 H , Glucose 134 H, Calcium 8.2 L, Phosphorus 5.2 H, Albumin 2.2 L 10/17/20 06:40: WBC 4.4, RBC 2.57 L, Hgb 8.2 L, Hct 26.5 L, MCV 103.1 H, MCH 31.9, MCHC 30.9 L, RDW Std Deviation 56.6 H, RDW Coeff of Kusum 15.0 H, Plt Count 84 L, MPV 10.8, Immature Gran % (Auto) 0.200, Neut % (Auto) 60.3, Lymph % (Auto) 18.6 L, Archuleta % (Auto) 16.6 H, Eos % (Auto) 3.4, Baso % (Auto) 0.9, Absolute Neuts (auto) 2.6, Absolute Lymphs (auto) 0.81 L, Nucleated RBC % 0 10/17/20 06:40: Magnesium 1.9 Current Medications Acetaminophen (Acetaminophen 325 Mg Tablet) 650 mg PO Q6H PRN PRN PRN Reason: Pain Score 1-10/Temp > 100.7 F Last Admin: 10/17/20 02:44 Dose: 650 mg Documented by: Amlodipine Besylate (Amlodipine 10 Mg Tablet) 10 mg PO DAILY [facility] Last Admin: 10/16/20 09:05 Dose: 10 mg Documented by: Aspirin (A[facility] 81 Mg [facility].Chew) [facility] Last Admin: 10/16/20 09:05 Dose: 81 mg Documented by: Atorvastatin Calcium (Atorvastatin Calcium 10 Mg Tablet) 10 mg PO QHS [facility] Last Admin: 10/16/20 21:46 Dose: 10 mg Documented by: Escitalopram Oxalate (Escitalopram Oxalate 10 Mg Tablet) 10 mg PO DAILY [facility] Last Admin: 10/16/20 09:05 Dose: 10 mg Documented by: Gabapentin ([facility] 100 Mg Capsule) [facility] Last Admin: 10/16/20 16:11 Dose: 200 mg Documented by: Heparin Sodium (Porcine) (Heparin Injection (Vial) 5,000 Unit/Ml Vial) 5,000 unit SC Q8 [facility] Last Admin: 10/16/20 13:53 Dose: 5,000 unit Documented by: Sodium Chloride () 250 mls @ 15 mls/hr IV .[id number] PRN PRN Reason: Saline Flush Sodium Chloride () 250 mls @ 15 mls/hr IV .[id number] PRN PRN Reason: Additional IVPB Infusion Furosemide 500 mg/ N/A 50 mls @ 2 mls/hr CONT INF .Q25H [facility] Last Infusion: 10/17/20 07:45 Dose: 0 mg/hr, 0 mls/hr Documented by: Insulin Glargine (Insulin Glargine 100 Units/Ml Pen) 10 units SC BID [facility] Last Admin: 10/16/20 21:47 Dose: 10 units Documented by: Insulin Human Lispro (Insulin Lispro 100 Unit/Ml Insuln.Pen) 0 unit SC ACHS [facility]; Protocol Last Admin: 10/17/20 08:04 Dose: Not Given Documented by: Insulin Human Lispro (Insulin Lispro 100 Unit/Ml Insuln.Pen) 5 unit SC TIDCM [facility] Last Admin: 10/17/20 08:04 Dose: Not Given Documented by: Isosorbide Mononitrate (Isosorbide Mononitrate 30 Mg Tablet) 30 mg PO DAILY [facility] Last Admin: 10/16/20 09:05 Dose: 30 mg Documented by: Lacosamide (Lacosamide 100 Mg Tablet) 100 mg PO DAILY [facility] Last Admin: 10/16/20 09:04 Dose: 100 mg Documented by: Lorazepam (Lorazepam 2 Mg/Ml Syringe) 2 mg IV PRN PRN PRN Reason: for seizure Nystatin (Nystatin Powder 15gm Bottle) 1 applic TOPICAL BID [facility]; Protocol Last Admin: 10/16/20 21:46 Dose: 1 applic Documented by: Ondansetron HCl (Ondansetron 4 Mg/2 Ml Vial) 4 mg IV Q8H PRN PRN PRN Reason: NAUSEA/VOMITING Senna/Docusate Sodium (Senna/Docusate Sodium 1 Tablet) 2 tablet PO BID PRN PRN PRN Reason: Constipation Sodium Chloride (0.9% Saline Lock 10 Ml Syringe) 10 - 40 ml IV UD PRN PRN Reason: SALINE FLUSH Last Admin: 10/17/20 07:45 Dose: 10 ml Documented by: Trazodone HCl (Trazodone 50 Mg Tablet) 25 mg PO QHS [facility] Last Admin: 10/16/20 21:45 Dose: 25 mg Documented by: STROKE Vital Signs/Narrative: Vital Signs Temp Pulse Resp BP Pulse Ox 10/17/20 09:51 97.5 F L 63 16 122/73 H 96 10/17/20 09:16 97.0 F L 64 16 145/55 H 98 10/17/20 09:11 66 16 142/50 H 96 10/17/20 09:05 65 16 129/58 H 97 10/17/20 09:00 71 16 118/82 H 94 10/17/20 08:56 63 16 133/49 H 96 10/17/20 08:55 63 16 128/109 H 96 10/17/20 08:48 97.0 F L 65 16 128/53 H 96 10/17/20 07:10 91 Medical Necessity - Tobacco Use Smoking Status: Former smoker Assessment/Plan All Active Problems Shortness of breath (Acute) Debility (Acute) Vascular catheter fitting or adjustment (Acute) CHF (congestive heart failure) (Acute) Patient is a 74-year-old female who presented to the ED on 10/13/2020 with a chief complaint of increased weight gain, shortness of breath and increased swelling. Patient reports no change in her shortness of breath from yesterday, still relates to her congestion. Patient looking forward to be dialyzed today. Placement of a right IJ tunneled dialysis catheter successfully completed this morning by Dr. Hung. Patient to be dialyzed this afternoon at 1400. 1) Acute on chronic CHF with preserved ejection fraction with anasarca Continue on Lasix drip for now. Strict I&O and daily weights. Treatment complicated by CKD stage IV. Palliative care has been consulted and has agreed to follow-up with patient once he is discharged. 2) CKD stage IV Tunneled dialysis catheter successfully placed this morning, dialysis scheduled for 1400 today. 3) DM2 Lantus adjusted on 10/16/2020 due to hypoglycemia, decreased to 10 units twice daily. POC glucose today 133. 4) ELENITA Continue CPAP 5) COPD Continue albuterol aerosol as needed 6) Hypertension Stable, continue amlodipine and metoprolol. Continue to hold lisinopril. 7) Hyperlipidemia Continue statin. 8) history of CVA Continue aspirin and statin. 9) Bipolar disorder/depression Continue on Lexapro. 10) Anemia of chronic disease Stable, continue to monitor CBC. 11) Seizure disorder Continue Vimpat. DVT Prophylaxis -Heparin SC Patient seen by Alfred Liang PA-C, under the supervision of Dr. Steward. <Leslee Steward - Last Filed: 10/17/20 12:20> Subjective: Patient is currently sleepy as she is just has had her tunneled dialysis catheter placed. She reports her shortness of breath is the same but no worse. Her swelling remains a problem. She is looking forward to be dialyzed to help remove fluid. Vitals/I&O's: Vital Signs Temp Pulse Resp BP Pulse Ox 97.5 F L 63 16 122/73 H 96 10/17/20 09:51 10/17/20 09:51 10/17/20 09:51 10/17/20 09:51 10/17/20 09:51 Oxygen Flow Rate (L/min) 2 Oxygen Delivery Method Nasal Cannula Weight: 113.4 kg Body Mass Index (BMI) 50.8 Finger Stick Blood Glucose 410 Intake and Output for Last 24 Hours 10/15/20 10/16/20 10/17/20 23:59 23:59 23:59 Intake Total 640 / 640 754.07 / 874.07 406.57 / 406.57 Output Total 1575 / 1575 3025 / 4225 3200 / 3200 Balance -935 / -935 -2270.93 / -3350.93 -2793.43 / -2793.43 General: Alert, Oriented x3, Cooperative, No apparent distress, Well developed, Well nourished, - - Pleasant elderly white female who is lying in bed and somewhat sleepy as she is just returned from her tunneled dialysis catheter placement HEENT: Atraumatic, PERRLA, EOMI, Normocephalic, EAC Clear Oral: Moist Mucosa Neck: Supple, Trachea Midline Lungs: No rhonchi, No wheeze, Diminished, Rales - Few at bases Cardiovascular: Regular rate, Regular Rhythm, Normal S1, Normal S2, No murmurs, No Ectopic Activity, No rub noted Abdomen: Bowel Sounds Present, Soft, Non Tender, Non-Distended, Obese, - - Significant abdominal wall anasarca Extremities: No clubbing, No cyanosis, Capillary Refill Less than 3 Seconds, Edema - 2+ bilateral lower extremity pitting edema, Peripheral Pulses Normal Skin: No rashes, No breakdown, - - Pale Musculoskeletal: No Tenderness to Palpation of Joints or Extremities, Arthritic Changes, Muscle Wasting Neurological: Cranial nerves II-XII grossly intact, Neuro grossly intact Psych/Mental Status: Normal Affect, Appropriate, - - Very pleasant Microbiology Past 72 Hours 10/16/20 19:20 Mucosa - Nasopharyngeal SARS-CoV-2 Antigen (Rapid) - Final Laboratory Results 10/16/20 16:10: POC Glucose 161 H 10/16/20 21:42: POC Glucose 204 H 10/17/20 06:34: POC Glucose 133 H 10/17/20 06:40: Sodium 136, Potassium 4.7, Chloride 101, Carbon Dioxide 31.0, Anion Gap 4 L, BUN 87 H, Creatinine 2.74 H, Estim Creat Clear Calc 12.94, Est GFR (MDRD) Af Amer 22 L, Est GFR (MDRD) Non-Af 18 L, BUN/Creatinine Ratio 31.8 H , Glucose 134 H, Calcium 8.2 L, Phosphorus 5.2 H, Albumin 2.2 L 10/17/20 06:40: WBC 4.4, RBC 2.57 L, Hgb 8.2 L, Hct 26.5 L, MCV 103.1 H, MCH 31.9, MCHC 30.9 L, RDW Std Deviation 56.6 H, RDW Coeff of Kusum 15.0 H, Plt Count 84 L, MPV 10.8, Immature Gran % (Auto) 0.200, Neut % (Auto) 60.3, Lymph % (Auto) 18.6 L, Archuleta % (Auto) 16.6 H, Eos % (Auto) 3.4, Baso % (Auto) 0.9, Absolute Neuts (auto) 2.6, Absolute Lymphs (auto) 0.81 L, Nucleated RBC % 0 10/17/20 06:40: Magnesium 1.9 10/17/20 11:55: POC Glucose 162 H Current Medications Acetaminophen (Acetaminophen 325 Mg Tablet) 650 mg PO Q6H PRN PRN PRN Reason: Pain Score 1-10/Temp > 100.7 F Last Admin: 10/17/20 02:44 Dose: 650 mg Documented by: Amlodipine Besylate (Amlodipine 10 Mg Tablet) 10 mg PO DAILY [facility] Last Admin: 10/16/20 09:05 Dose: 10 mg Documented by: Aspirin (Aspirin 81 Mg Tab.Chew) [facility] Last Admin: 10/16/20 09:05 Dose: 81 mg Documented by: Atorvastatin Calcium (Atorvastatin Calcium 10 Mg Tablet) 10 mg PO QHS [facility] Last Admin: 10/16/20 21:46 Dose: 10 mg Documented by: Escitalopram Oxalate (Escitalopram Oxalate 10 Mg Tablet) 10 mg PO DAILY [facility] Last Admin: 10/16/20 09:05 Dose: 10 mg Documented by: Gabapentin ([facility]entin 100 Mg Capsule) [facility] Last Admin: 10/16/20 16:11 Dose: 200 mg Documented by: Heparin Sodium (Porcine) (Heparin Injection (Vial) 5,000 Unit/Ml Vial) 5,000 unit SC Q8 [facility] Last Admin: 10/16/20 13:53 Dose: 5,000 unit Documented by: Sodium Chloride () 250 mls @ 15 mls/hr IV .[id number] PRN PRN Reason: Saline Flush Sodium Chloride () 250 mls @ 15 mls/hr IV .[id number] PRN PRN Reason: Additional IVPB Infusion Furosemide 500 mg/ N/A 50 mls @ 2 mls/hr CONT INF .Q25H [facility] Last Infusion: 10/17/20 07:45 Dose: 0 mg/hr, 0 mls/hr Documented by: Insulin Glargine (Insulin Glargine 100 Units/Ml Pen) 10 units SC BID [facility] Last Admin: 10/17/20 11:59 Dose: Not Given Documented by: Insulin Human Lispro (Insulin Lispro 100 Unit/Ml Insuln.Pen) 0 unit SC ACHS [facility]; Protocol Last Admin: 10/17/20 11:58 Dose: Not Given Documented by: Insulin Human Lispro (Insulin Lispro 100 Unit/Ml Insuln.Pen) 5 unit SC TIDCM [facility] Last Admin: 10/17/20 08:04 Dose: Not Given Documented by: Isosorbide Mononitrate (Isosorbide Mononitrate 30 Mg Tablet) 30 mg PO DAILY [facility] Last Admin: 10/16/20 09:05 Dose: 30 mg Documented by: Lacosamide (Lacosamide 100 Mg Tablet) 100 mg PO DAILY [facility] Last Admin: 10/16/20 09:04 Dose: 100 mg Documented by: Lorazepam (Lorazepam 2 Mg/Ml Syringe) 2 mg IV PRN PRN PRN Reason: for seizure Nystatin (Nystatin Powder 15gm Bottle) 1 applic TOPICAL BID [facility]; Protocol Last Admin: 10/17/20 10:43 Dose: 1 applic Documented by: Ondansetron HCl (Ondansetron 4 Mg/2 Ml Vial) 4 mg IV Q8H PRN PRN PRN Reason: NAUSEA/VOMITING Senna/Docusate Sodium (Senna/Docusate Sodium 1 Tablet) 2 tablet PO BID PRN PRN PRN Reason: Constipation Sodium Chloride (0.9% Saline Lock 10 Ml Syringe) 10 - 40 ml IV UD PRN PRN Reason: SALINE FLUSH Last Admin: 10/17/20 07:45 Dose: 10 ml Documented by: Trazodone HCl (Trazodone 50 Mg Tablet) 25 mg PO QHS [facility] Last Admin: 10/16/20 21:45 Dose: 25 mg Documented by: STROKE Vital Signs/Narrative: Vital Signs Temp Pulse Resp BP Pulse Ox 10/17/20 09:51 97.5 F L 63 16 122/73 H 96 10/17/20 09:16 97.0 F L 64 16 145/55 H 98 10/17/20 09:11 66 16 142/50 H 96 10/17/20 09:05 65 16 129/58 H 97 10/17/20 09:00 71 16 118/82 H 94 10/17/20 08:56 63 16 133/49 H 96 10/17/20 08:55 63 16 128/109 H 96 10/17/20 08:48 97.0 F L 65 16 128/53 H 96 Assessment/Plan I agree with the above and the following is representation my independent history and physical examination. ASSESSMENT Acute on chronic HFpEF Chronic hypoxic respiratory failure Secondary PAH WHO class II/III Chronic anemia Mild hyponatremia DEBBIE on CKD stage IV Urinary retention DM-2 ELENITA COPD HTN HPL GERD History of stroke RA Seizure Bipolar Depression MO PLAN -Continue Lasix drip at this time -Dialysis catheter was placed this morning -Expect patient will be dialyzed later today -Lab remained stable -Patient remains on 2 L nasal cannula -Blood sugars are better with morning fasting blood sugar 70 yesterday and 134 today -May need to re-titrate up her Lantus when she started on dialysis -Possible discharge Monday or Monday of next week back to [facility] depending on dialysis needs Inpatient E&M: [id number] Subs Hosp L2
[2020-10-17] MEDS: Nystatin Powder 15gm Bottle 1 APPLIC TOPICAL ×2 (10:43→21:30)
--- NOTE | 2020-10-17 10:45 | NURSING ---
Sandbag in place
[2020-10-17 12:06] LABS: Bedside Glucose 162 mg/dL (70-110)
--- NOTE | 2020-10-17 14:00 | NURSING ---
Sandbag off to right chest. Small amount of bright red drainage noted on old dressing.
--- NOTE | 2020-10-17 16:24 | DIALYSIS ---
IUF TODAY -3000ML TOLERATED WELL. NEW RIJ WORKED WELL WITH GOOD FLOWS. VITALS STABLE. REPORT TO CRISTIAN MALDONADO
[2020-10-17] MEDS: Aspirin 81 MG TAB.CHEW PO (17:12)
[2020-10-17] MEDS: Escitalopram Oxalate 10 MG Tablet PO (17:12)
[2020-10-17] MEDS: Isosorbide Mononitrate 30 MG Tablet PO (17:12)
[2020-10-17] MEDS: Gabapentin 100 MG Capsule 200 MG PO (17:13)
[2020-10-17] MEDS: amLODIPine 10 MG Tablet PO (17:13)
[2020-10-17] MEDS: Lacosamide 100 MG Tablet PO (17:17)
[2020-10-17] MEDS: Insulin Lispro 100 UNIT/ML INSULN.PEN SC ×2 (17:19→21:29)
[2020-10-17 17:20] LABS: Bedside Glucose 131 mg/dL (70-110)
--- NOTE | 2020-10-17 19:27 | NURSING ---
sand bag applied to right chest tunnel cath site
--- NOTE | 2020-10-17 20:00 | RAD_ITS ---
STUDY: X-RAY CHEST REASON FOR EXAM: Female, 74 years old. coughing up blood TECHNIQUE: Single AP portable view of the chest. COMPARISON: 10/17/2020 at 08 58 FINDINGS: Tunneled right internal jugular dialysis catheter which is unchanged. Linear opacity in the mid left lung consistent with discoid atelectasis. Small right pleural effusion which is unchanged. Normal size heart. Normal mediastinum and elva. Normal visualized pulmonary arteries. Normal visualized aortic arch and descending thoracic aorta. Normal visualized thoracic spine. Normal visualized ribs, clavicles, and shoulders. There is no demonstrated abnormality of the visualized soft tissue structures of the upper abdomen. RAD/Chest 1 View (Portable) IMPRESSION: No change from earlier today. Electronically Signed: Colton Lee MD at 6:17 EDT Tel , Service support ,
[2020-10-17 20:13] LABS: Absolute Lymphocyte Count 0.61 X10^3/uL (0.83-4.51); Basophil# 0.03 X10^3/uL; Basophil% 0.9 % (0-1); Eosinophil# 0.14 X10^3/uL; Eosinophils% 4.1 % (0-5); Hematocrit 26.6 % (37-47); Hemoglobin 8.1 g/dL (12.0-15.0); Lymphocyte # 0.61 X10^3/ul (0.83-4.51); Lymphocyte % 17.8 % (19-41); Mean Corp Hgb Conc 30.5 g/dL (32-36); Mean Corpuscular Hgb 31.8 pg (27.0-32.0); Mean Corpuscular Volume 104.3 fL (81-99); Mean Platelet Vol. 10.9 fl (6.2-12.0); Monocyte% 17.5 % (0-10); NRBC Flagged by Analyzer 0 % (0-5); Neutrophil # 2.03 X10^3/uL (2.7-7.7); Neutrophil % 59.4 % (47-70); POSITIVE COUNT YES; Platelet Count 71 K/mm3 (150-450); RBC Distribution Width SD 56.6 fl (35.1-43.9); Red Blood Count 2.55 M/mm3 (4.2-5.4); White Blood Count 3.4 K/mm3 (4.4-11.0)
[2020-10-17] MEDS: traZODone 50 MG Tablet 25 MG PO (21:27)
[2020-10-17] MEDS: Atorvastatin Calcium 10 MG Tablet PO (21:27)
[2020-10-17 21:41] LABS: Bedside Glucose 180 mg/dL (70-110)
[2020-10-18] VITALS (11 sets, daily range): BP systolic 126–154; BP diastolic 41–55; PULSE 69–79; RESP 16–20; TEMP 36.4–37.1; O2SAT 90–97
--- NOTE | 2020-10-18 02:20 | NURSING ---
Patient crying out refusing to wear sandbag on right chest due to pain. No new drainage noted on dressing. We advised patient that she could take a small break but will need to reapply sandbag later. Herb Swift Rn
[2020-10-18 06:14] LABS: Albumin, Serum 2.3 g/dL (3.2-5.0); Anion Gap 5 (5-15); BUN 86 mg/dL (7-18); BUN/Creat Ratio 34.3 RATIO (10-20); Calcium,Total 8.4 mg/dL (8.5-10.1); Chloride 99 mmol/L (98-107); Creatinine, Serum 2.51 mg/dL (0.55-1.02); EST Glomerular Filtration Rate 20 mL/min (>60); Est Glom Filt Rate - Afr Amer 24 mL/min (>60); Estimated Creatinine Clearance 14.12 ml/min; Glucose 91 mg/dL (74-106); Magnesium 1.9 mg/dL (1.6-2.6); Phosphorus 5.1 mg/dL (2.5-4.9); Potassium 4.6 mmol/L (3.5-5.1); Sodium Level 134 mmol/L (136-145)
[2020-10-18 07:00] LABS: Bedside Glucose 77 mg/dL (70-110)
[2020-10-18 07:15] LABS: Absolute Lymphocyte Count 0.78 X10^3/uL (0.83-4.51); Absolute Neutrophil Count 2.3 X10^3/uL (2.0-7.7); Basophil# 0.04 X10^3/uL; Basophil% 1.1 % (0-1); Eosinophil# 0.12 X10^3/uL; Eosinophils% 3.2 % (0-5); Hematocrit 24.9 % (37-47); Hemoglobin 7.6 g/dL (12.0-15.0); Lymphocyte # 0.78 X10^3/ul (0.83-4.51); Lymphocyte % 20.7 % (19-41); Mean Corp Hgb Conc 30.5 g/dL (32-36); Mean Corpuscular Hgb 31.3 pg (27.0-32.0); Mean Corpuscular Volume 102.5 fL (81-99); Mean Platelet Vol. 11.4 fl (6.2-12.0); Monocyte# 0.57 X10^3/uL; Monocyte% 15.1 % (0-10); NRBC Flagged by Analyzer 0 % (0-5); Neutrophil # 2.25 X10^3/uL (2.7-7.7); Neutrophil % 59.6 % (47-70); POSITIVE COUNT YES; Platelet Count 75 K/mm3 (150-450); RBC Distribution Width CV 15.2 % (11.6-14.6); RBC Distribution Width SD 57.3 fl (35.1-43.9); Red Blood Count 2.43 M/mm3 (4.2-5.4); White Blood Count 3.8 K/mm3 (4.4-11.0)
[2020-10-18] MEDS: Aspirin 81 MG TAB.CHEW PO (09:40)
[2020-10-18] MEDS: Gabapentin 100 MG Capsule 200 MG PO ×2 (09:40→18:24)
[2020-10-18] MEDS: Furosemide 500 MG in Empty Viaflex 50 mL 1 EACH CONT INF (09:40)
[2020-10-18] MEDS: Isosorbide Mononitrate 30 MG Tablet PO (09:40)
[2020-10-18] MEDS: amLODIPine 10 MG Tablet PO (09:41)
[2020-10-18] MEDS: Escitalopram Oxalate 10 MG Tablet PO (09:41)
[2020-10-18] MEDS: Nystatin Powder 15gm Bottle 1 APPLIC TOPICAL ×2 (09:41→21:22)
[2020-10-18] MEDS: Lacosamide 100 MG Tablet PO (09:45)
--- NOTE | 2020-10-18 10:20 | PCM.PN.SRG ---
Patient Problems: Active and Suspected Problems Shortness of breath (Acute) Debility (Acute) Vascular catheter fitting or adjustment (Acute) CHF (congestive heart failure) (Acute) Subjective: Patient has no complaints from dialysis catheter today. They were able to use this catheter yesterday and dialyzer. Objective: Dressing has some blood on it and will need to be changed appropriate amount of swelling in the areas noted - Physical Exam Vitals/I&O's: Vital Signs Temp Pulse Resp BP Pulse Ox 97.8 F 70 17 126/41 H 96 10/18/20 09:23 10/18/20 09:23 10/18/20 09:23 10/18/20 09:23 10/18/20 09:23 Oxygen Flow Rate (L/min) 2 Oxygen Delivery Method Nasal Cannula Weight: 241 lb 13.553 oz Body Mass Index (BMI) 50.8 Finger Stick Blood Glucose 410 Intake and Output for Last 24 Hours 10/16/20 10/17/20 10/18/20 23:59 23:59 23:59 Intake Total 754.07 / 874.07 886.57 / 886.57 143.2 / 143.2 Output Total 3025 / 4225 9175 / 9175 850 / 850 Balance -2270.93 / -3350.93 -8288.43 / -8288.43 -706.8 / -706.8 Microbiology Past 72 Hours 10/16/20 19:20 Mucosa - Nasopharyngeal SARS-CoV-2 Antigen (Rapid) - Final Laboratory Results 10/17/20 11:55: POC Glucose 162 H 10/17/20 17:10: POC Glucose 131 H 10/17/20 19:54: WBC 3.4 L, RBC 2.55 L, Hgb 8.1 L, Hct 26.6 L, MCV 104.3 H, MCH 31.8, MCHC 30.5 L, RDW Std Deviation 56.6 H, RDW Coeff of Kusum 15.0 H, Plt Count 71 L, MPV 10.9, Immature Gran % (Auto) 0.300, Neut % (Auto) 59.4, Lymph % (Auto) 17.8 L, Yell % (Auto) 17.5 H, Eos % (Auto) 4.1, Baso % (Auto) 0.9, Absolute Neuts (auto) 2.0, Absolute Lymphs (auto) 0.61 L, Nucleated RBC % 0 10/17/20 21:26: POC Glucose 180 H 10/18/20 04:48: Sodium 134 L, Potassium 4.6, Chloride 99, Carbon Dioxide 30.0, Anion Gap 5, BUN 86 H, Creatinine 2.51 H, Estim Creat Clear Calc 14.12, Est GFR (MDRD) Af Amer 24 L, Est GFR (MDRD) Non-Af 20 L, BUN/Creatinine Ratio 34.3 H, Glucose 91, Calcium 8.4 L, Phosphorus 5.1 H, Magnesium 1.9, Albumin 2.3 L 10/18/20 04:48: WBC 3.8 L, RBC 2.43 L, Hgb 7.6 L, Hct 24.9 L, MCV 102.5 H, MCH 31.3, MCHC 30.5 L, RDW Std Deviation 57.3 H, RDW Coeff of Kusum 15.2 H, Plt Count 75 L, MPV 11.4, Immature Gran % (Auto) 0.300, Neut % (Auto) 59.6, Lymph % (Auto) 20.7, Yell % (Auto) 15.1 H, Eos % (Auto) 3.2, Baso % (Auto) 1.1 H, Absolute Neuts (auto) 2.3, Absolute Lymphs (auto) 0.78 L, Nucleated RBC % 0 10/18/20 06:51: POC Glucose 77 Current Medications Acetaminophen (Acetaminophen 325 Mg Tablet) 650 mg PO Q6H PRN PRN PRN Reason: Pain Score 1-10/Temp > 100.7 F Last Admin: 10/17/20 02:44 Dose: 650 mg Documented by: Amlodipine Besylate (Amlodipine 10 Mg Tablet) 10 mg PO DAILY [facility] Last Admin: 10/18/20 09:41 Dose: 10 mg Documented by: Aspirin (Aspirin 81 Mg [facility].Chew) [facility] Last Admin: 10/18/20 09:40 Dose: 81 mg Documented by: Atorvastatin Calcium (Atorvastatin Calcium 10 Mg Tablet) 10 mg PO QHS [facility] Last Admin: 10/17/20 21:27 Dose: 10 mg Documented by: Escitalopram Oxalate (Escitalopram Oxalate 10 Mg Tablet) 10 mg PO DAILY [facility] Last Admin: 10/18/20 09:41 Dose: 10 mg Documented by: Gabapentin (Gabapentin 100 Mg Capsule) 200 mg PO BIDCM [facility] Last Admin: 10/18/20 09:40 Dose: 200 mg Documented by: Heparin Sodium (Porcine) (Heparin Injection (Vial) 5,000 Unit/Ml Vial) 5,000 unit SC Q8 [facility] Last Admin: 10/18/20 06:52 Dose: Not Given Documented by: Sodium Chloride () 250 mls @ 15 mls/hr IV .[id number] PRN PRN Reason: Saline Flush Sodium Chloride () 250 mls @ 15 mls/hr IV .[id number] PRN PRN Reason: Additional IVPB Infusion Furosemide 500 mg/ N/A 50 mls @ 2 mls/hr CONT INF .Q25H [facility] Last Infusion: 10/18/20 09:39 Dose: Infused Documented by: Insulin Glargine (Insulin Glargine 100 Units/Ml Pen) 10 units SC BID [facility] Last Admin: 10/17/20 21:26 Dose: 10 units Documented by: Insulin Human Lispro (Insulin Lispro 100 Unit/Ml Insuln.Pen) 0 unit SC ACHS [facility]; Protocol Last Admin: 10/18/20 06:53 Dose: Not Given Documented by: Insulin Human Lispro (Insulin Lispro 100 Unit/Ml Insuln.Pen) 5 unit SC TIDCM [facility] Last Admin: 10/18/20 09:37 Dose: Not Given Documented by: Isosorbide Mononitrate (Isosorbide Mononitrate 30 Mg Tablet) 30 mg PO DAILY [facility] Last Admin: 10/18/20 09:40 Dose: 30 mg Documented by: Lacosamide (Lacosamide 100 Mg Tablet) 100 mg PO DAILY [facility] Last Admin: 10/18/20 09:45 Dose: 100 mg Documented by: Lorazepam (Lorazepam 2 Mg/Ml Syringe) 2 mg IV PRN PRN PRN Reason: for seizure Nystatin (Nystatin Powder 15gm Bottle) 1 applic TOPICAL BID [facility]; Protocol Last Admin: 10/18/20 09:41 Dose: 1 applic Documented by: Ondansetron HCl (Ondansetron 4 Mg/2 Ml Vial) 4 mg IV Q8H PRN PRN PRN Reason: NAUSEA/VOMITING Senna/Docusate Sodium (Senna/Docusate Sodium 1 Tablet) 2 tablet PO BID PRN PRN PRN Reason: Constipation Sodium Chloride (0.9% Saline Lock 10 Ml Syringe) 10 - 40 ml IV UD PRN PRN Reason: SALINE FLUSH Last Admin: 10/17/20 07:45 Dose: 10 ml Documented by: Trazodone HCl (Trazodone 50 Mg Tablet) 25 mg PO QHS [facility] Last Admin: 10/17/20 21:27 Dose: 25 mg Documented by: Medical Necessity - Tobacco Use Smoking Status: Former smoker Assessment/Plan All Active Problems Shortness of breath (Acute) Debility (Acute) Vascular catheter fitting or adjustment (Acute) CHF (congestive heart failure) (Acute) Catheter functioning appropriately. We will sign off at this time please reconsult surgery if needed
[2020-10-18] MEDS: Insulin Lispro 100 UNIT/ML INSULN.PEN SC ×2 (12:06→18:25)
--- NOTE | 2020-10-18 12:07 | PCM.PN.HOSP ---
<Alfred Liang - Last Filed: 10/18/20 12:07> Patient Problems: Active and Suspected Problems Shortness of breath (Acute) Debility (Acute) Vascular catheter fitting or adjustment (Acute) CHF (congestive heart failure) (Acute) Subjective: Patient is a 74-year-old female who is resting in the chair recovering from a therapy session, alert and oriented x3. Patient reports feeling much better from yesterday and was able to communicate to this provider that she understood that 9 pounds of fluid were taken off of her from dialysis yesterday. Physical therapist communicated to this provider that patient was able to walk from the chair to the end of the room and back with only 1 stop, which is a vast improvement from yesterday. Vitals/I&O's: Vital Signs Temp Pulse Resp BP Pulse Ox 97.8 F 70 17 126/41 H 96 10/18/20 09:23 10/18/20 09:23 10/18/20 09:23 10/18/20 09:23 10/18/20 09:58 Oxygen Flow Rate (L/min) 2 Oxygen Delivery Method Nasal Cannula Weight: 241 lb 13.553 oz Body Mass Index (BMI) 50.8 Finger Stick Blood Glucose 410 Intake and Output for Last 24 Hours 10/16/20 10/17/20 10/18/20 23:59 23:59 23:59 Intake Total 754.07 / 874.07 886.57 / 886.57 503.2 / 503.2 Output Total 3025 / 4225 9175 / 9175 1650 / 1650 Balance -2270.93 / -3350.93 -8288.43 / -8288.43 -1146.8 / -1146.8 Neck: Supple, No JVD, Negative Carotid Bruits Lungs: Diminished, Short of Breath - Short of breath from physical therapy session prior to provider coming into room, patient comfortably satting at 96% on 2 L of oxygen via nasal cannula Cardiovascular: Regular rate, No murmurs Abdomen: Obese - Believe patient's large habitus is more related to her obesity as patient no longer appears distended after dialysis Extremities: No edema Skin: No rashes, No breakdown Musculoskeletal: No Tenderness to Palpation of Joints or Extremities Neurological: Cranial nerves II-XII grossly intact Psych/Mental Status: Normal Affect, Appropriate Microbiology Past 72 Hours 04/16/21 19:20 Mucosa - Nasopharyngeal SARS-CoV-2 Antigen (Rapid) - Final Laboratory Results 10/17/20 17:10: POC Glucose 131 H 10/17/20 19:54: WBC 3.4 L, RBC 2.55 L, Hgb 8.1 L, Hct 26.6 L, MCV 104.3 H, MCH 31.8, MCHC 30.5 L, RDW Std Deviation 56.6 H, RDW Coeff of Kusum 15.0 H, Plt Count 71 L, MPV 10.9, Immature Gran % (Auto) 0.300, Neut % (Auto) 59.4, Lymph % (Auto) 17.8 L, [place] % (Auto) 17.5 H, Eos % (Auto) 4.1, Baso % (Auto) 0.9, Absolute Neuts (auto) 2.0, Absolute Lymphs (auto) 0.61 L, Nucleated RBC % 0 10/17/20 21:26: POC Glucose 180 H 10/18/20 04:48: Sodium 134 L, Potassium 4.6, Chloride 99, Carbon Dioxide 30.0, Anion Gap 5, BUN 86 H, Creatinine 2.51 H, Estim Creat Clear Calc 14.12, Est GFR (MDRD) Af Amer 24 L, Est GFR (MDRD) Non-Af 20 L, BUN/Creatinine Ratio 34.3 H, Glucose 91, Calcium 8.4 L, Phosphorus 5.1 H, Magnesium 1.9, Albumin 2.3 L 10/18/20 04:48: WBC 3.8 L, RBC 2.43 L, Hgb 7.6 L, Hct 24.9 L, MCV 102.5 H, MCH 31.3, MCHC 30.5 L, RDW Std Deviation 57.3 H, RDW Coeff of Kusum 15.2 H, Plt Count 75 L, MPV 11.4, Immature Gran % (Auto) 0.300, Neut % (Auto) 59.6, Lymph % (Auto) 20.7, [place] % (Auto) 15.1 H, Eos % (Auto) 3.2, Baso % (Auto) 1.1 H, Absolute Neuts (auto) 2.3, Absolute Lymphs (auto) 0.78 L, Nucleated RBC % 0 10/18/20 06:51: POC Glucose 77 Current Medications Acetaminophen (Acetaminophen 325 Mg Tablet) 650 mg PO Q6H PRN PRN PRN Reason: Pain Score 1-10/Temp > 100.7 F Last Admin: 10/17/20 02:44 Dose: 650 mg Documented by: Amlodipine Besylate (Amlodipine 10 Mg Tablet) 10 mg PO DAILY [facility] Last Admin: 10/18/20 09:41 Dose: 10 mg Documented by: Aspirin ([facility] 81 Mg [facility].Chew) [facility] Last Admin: 10/18/20 09:40 Dose: 81 mg Documented by: Atorvastatin Calcium (Atorvastatin Calcium 10 Mg Tablet) 10 mg PO QHS [facility] Last Admin: 10/17/20 21:27 Dose: 10 mg Documented by: Escitalopram Oxalate (Escitalopram Oxalate 10 Mg Tablet) 10 mg PO DAILY [facility] Last Admin: 10/18/20 09:41 Dose: 10 mg Documented by: Gabapentin ([facility] 100 Mg Capsule) [facility] Last Admin: 10/18/20 09:40 Dose: 200 mg Documented by: Heparin Sodium (Porcine) (Heparin Injection (Vial) 5,000 Unit/Ml Vial) 5,000 unit SC Q8 [facility] Last Admin: 10/18/20 06:52 Dose: Not Given Documented by: Sodium Chloride () 250 mls @ 15 mls/hr IV .[id number] PRN PRN Reason: Saline Flush Sodium Chloride () 250 mls @ 15 mls/hr IV .[id number] PRN PRN Reason: Additional IVPB Infusion Furosemide 500 mg/ N/A 50 mls @ 2 mls/hr CONT INF .Q25H [facility] Last Infusion: 10/18/20 09:39 Dose: Infused Documented by: Insulin Glargine (Insulin Glargine 100 Units/Ml Pen) 10 units SC BID [facility] Last Admin: 10/17/20 21:26 Dose: 10 units Documented by: Insulin Human Lispro (Insulin Lispro 100 Unit/Ml Insuln.Pen) 0 unit SC ACHS [facility]; Protocol Last Admin: 10/18/20 06:53 Dose: Not Given Documented by: Insulin Human Lispro (Insulin Lispro 100 Unit/Ml Insuln.Pen) 5 unit SC TIDCM [facility] Last Admin: 10/18/20 09:37 Dose: Not Given Documented by: Isosorbide Mononitrate (Isosorbide Mononitrate 30 Mg Tablet) 30 mg PO DAILY [facility] Last Admin: 10/18/20 09:40 Dose: 30 mg Documented by: Lacosamide (Lacosamide 100 Mg Tablet) 100 mg PO DAILY [facility] Last Admin: 10/18/20 09:45 Dose: 100 mg Documented by: Lorazepam (Lorazepam 2 Mg/Ml Syringe) 2 mg IV PRN PRN PRN Reason: for seizure Nystatin (Nystatin Powder 15gm Bottle) 1 applic TOPICAL BID [facility]; Protocol Last Admin: 10/18/20 09:41 Dose: 1 applic Documented by: Ondansetron HCl (Ondansetron 4 Mg/2 Ml Vial) 4 mg IV Q8H PRN PRN PRN Reason: NAUSEA/VOMITING Senna/Docusate Sodium (Senna/Docusate Sodium 1 Tablet) 2 tablet PO BID PRN PRN PRN Reason: Constipation Sodium Chloride (0.9% Saline Lock 10 Ml Syringe) 10 - 40 ml IV UD PRN PRN Reason: SALINE FLUSH Last Admin: 10/17/20 07:45 Dose: 10 ml Documented by: Trazodone HCl (Trazodone 50 Mg Tablet) 25 mg PO QHS [facility] Last Admin: 10/17/20 21:27 Dose: 25 mg Documented by: STROKE Vital Signs/Narrative: Vital Signs Temp Pulse Resp BP Pulse Ox 10/18/20 09:58 96 10/18/20 09:23 97.8 F 70 17 126/41 H 96 Medical Necessity - Tobacco Use Smoking Status: Former smoker Assessment/Plan All Active Problems Shortness of breath (Acute) Debility (Acute) Vascular catheter fitting or adjustment (Acute) CHF (congestive heart failure) (Acute) Patient is a 74-year-old female who presented to the ED on 10/13/2020 with a chief complaint of increased weight gain, shortness of breath and increased swelling. Patient looks and feels much improved from yesterday after dialysis. Patient weight after dialysis was 241 pounds, which is a 9 pound loss from the previous day. Patient was even able to participate in physical therapy activities, which she could not yesterday due to her shortness of breath. We will continue Lasix infusion and monitor patient overnight, with possible discharge back to [facility] tomorrow pending patient's clinical picture and discussion with identification officer. 1) Acute on chronic CHF with preserved ejection fraction with anasarca Continue on Lasix drip for now. Strict I&O and daily weights. Treatment complicated by CKD stage IV. Palliative care has been consulted and has agreed to follow-up with patient once he is discharged. 2) CKD stage IV Dialysis successfully completed on 10/17/2020; 3000 mL were drawn off the patient during dialysis. Creatinine continuing to improve from admission; currently 2.51. No future dialysis currently scheduled, per nephrology. 3) DM2 Lantus adjusted on 10/16/2020 due to hypoglycemia, decreased to 10 units twice daily. POC glucose today 133. 4) ELENITA Continue CPAP 5) COPD Continue albuterol aerosol as needed 6) Hypertension Stable, continue amlodipine and metoprolol. Continue to hold lisinopril. 7) Hyperlipidemia Continue statin. 8) history of CVA Continue aspirin and statin. 9) Bipolar disorder/depression Continue on Lexapro. 10) Anemia of chronic disease Stable, continue to monitor CBC. 11) Seizure disorder Continue Vimpat. DVT Prophylaxis -Heparin SC Patient seen by Alfred Liang PA-C, under the supervision of Dr. Steward. <Leslee Steward - Last Filed: 10/18/20 15:35> Subjective: Patient is currently sitting up at bedside, states she is feeling better and was pleased with her dialysis session yesterday. 9 pounds of fluid were removed with a 3000 cc fluid removal via dialysis plus continue diuresis with a Lasix drip. Had some hemoptysis last evening small amounts. She has had no further issues with this. Vitals/I&O's: Vital Signs Temp Pulse Resp BP Pulse Ox 97.6 F L 72 18 136/53 H 95 10/18/20 15:20 10/18/20 15:20 10/18/20 15:20 10/18/20 15:20 10/18/20 15:20 Oxygen Flow Rate (L/min) 2 Oxygen Delivery Method Nasal Cannula Weight: 109.7 kg Body Mass Index (BMI) 50.8 Finger Stick Blood Glucose 410 Intake and Output for Last 24 Hours 10/16/20 10/17/20 10/18/20 23:59 23:59 23:59 Intake Total 754.07 / 874.07 886.57 / 886.57 503.2 / 503.2 Output Total 3025 / 4225 9175 / 9175 1650 / 1650 Balance -2270.93 / -3350.93 -8288.43 / -8288.43 -1146.8 / -1146.8 General: Alert, Oriented x3, Cooperative, No apparent distress, Well developed, Well nourished, - - Older white female sitting up in a chair next to the bed, nontoxic no distress HEENT: Atraumatic, Normocephalic Oral: Moist Mucosa Neck: Supple, Trachea Midline Lungs: No rhonchi, No wheeze, Diminished, Rales - Few bibasilar crackles, Short of Breath Cardiovascular: Regular rate, Regular Rhythm, Normal S1, Normal S2, No murmurs, No Ectopic Activity, No rub noted, No Gallop Abdomen: Bowel Sounds Present, Soft, Non Tender, Non-Distended, Obese, - - Still with anasarca but seems to be softer Extremities: No clubbing, No cyanosis, Capillary Refill Less than 3 Seconds, Edema - Bilateral lower extremity pitting edema up to the abdominal wall, Peripheral Pulses Normal Skin: No rashes, - - Old dialysis catheter right chest with some oozing at the site dressing intact Musculoskeletal: No Tenderness to Palpation of Joints or Extremities, Arthritic Changes Neurological: Cranial nerves II-XII grossly intact, Neuro grossly intact Psych/Mental Status: Normal Affect, Appropriate Microbiology Past 72 Hours 10/16/20 19:20 Mucosa - Nasopharyngeal SARS-CoV-2 Antigen (Rapid) - Final Laboratory Results 10/17/20 17:10: POC Glucose 131 H 10/17/20 19:54: WBC 3.4 L, RBC 2.55 L, Hgb 8.1 L, Hct 26.6 L, MCV 104.3 H, MCH 31.8, MCHC 30.5 L, RDW Std Deviation 56.6 H, RDW Coeff of Kusum 15.0 H, Plt Count 71 L, MPV 10.9, Immature Gran % (Auto) 0.300, Neut % (Auto) 59.4, Lymph % (Auto) 17.8 L, [place] % (Auto) 17.5 H, Eos % (Auto) 4.1, Baso % (Auto) 0.9, Absolute Neuts (auto) 2.0, Absolute Lymphs (auto) 0.61 L, Nucleated RBC % 0 10/17/20 21:26: POC Glucose 180 H 10/18/20 04:48: Sodium 134 L, Potassium 4.6, Chloride 99, Carbon Dioxide 30.0, Anion Gap 5, BUN 86 H, Creatinine 2.51 H, Estim Creat Clear Calc 14.12, Est GFR (MDRD) Af Amer 24 L, Est GFR (MDRD) Non-Af 20 L, BUN/Creatinine Ratio 34.3 H, Glucose 91, Calcium 8.4 L, Phosphorus 5.1 H, Magnesium 1.9, Albumin 2.3 L 10/18/20 04:48: WBC 3.8 L, RBC 2.43 L, Hgb 7.6 L, Hct 24.9 L, MCV 102.5 H, MCH 31.3, MCHC 30.5 L, RDW Std Deviation 57.3 H, RDW Coeff of Kusum 15.2 H, Plt Count 75 L, MPV 11.4, Immature Gran % (Auto) 0.300, Neut % (Auto) 59.6, Lymph % (Auto) 20.7, [place] % (Auto) 15.1 H, Eos % (Auto) 3.2, Baso % (Auto) 1.1 H, Absolute Neuts (auto) 2.3, Absolute Lymphs (auto) 0.78 L, Nucleated RBC % 0 10/18/20 06:51: POC Glucose 77 10/18/20 12:00: POC Glucose 146 H Current Medications Acetaminophen (Acetaminophen 325 Mg Tablet) 650 mg PO Q6H PRN PRN PRN Reason: Pain Score 1-10/Temp > 100.7 F Last Admin: 10/17/20 02:44 Dose: 650 mg Documented by: Amlodipine Besylate (Amlodipine 10 Mg Tablet) 10 mg PO DAILY [facility] Last Admin: 10/18/20 09:41 Dose: 10 mg Documented by: Aspirin (Aspirin 81 Mg Tab.Chew) [facility] Last Admin: 10/18/20 09:40 Dose: 81 mg Documented by: Atorvastatin Calcium (Atorvastatin Calcium 10 Mg Tablet) 10 mg PO QHS [facility] Last Admin: 10/17/20 21:27 Dose: 10 mg Documented by: Escitalopram Oxalate (Escitalopram Oxalate 10 Mg Tablet) 10 mg PO DAILY [facility] Last Admin: 10/18/20 09:41 Dose: 10 mg Documented by: Gabapentin (Gabapentin 100 Mg Capsule) 200 mg PO BIDCM [facility] Last Admin: 10/18/20 09:40 Dose: 200 mg Documented by: Heparin Sodium (Porcine) (Heparin Injection (Vial) 5,000 Unit/Ml Vial) 5,000 unit SC Q8 [facility] Last Admin: 10/18/20 15:28 Dose: Not Given Documented by: Sodium Chloride () 250 mls @ 15 mls/hr IV .[id number] PRN PRN Reason: Saline Flush Sodium Chloride () 250 mls @ 15 mls/hr IV .[id number] PRN PRN Reason: Additional IVPB Infusion Furosemide 500 mg/ N/A 50 mls @ 2 mls/hr CONT INF .Q25H [facility] Last Admin: 10/18/20 09:40 Dose: 20 mg/hr, 2 mls/hr Documented by: Insulin Glargine (Insulin Glargine 100 Units/Ml Pen) 10 units SC BID [facility] Last Admin: 10/18/20 12:07 Dose: 10 units Documented by: Insulin Human Lispro (Insulin Lispro 100 Unit/Ml Insuln.Pen) 0 unit SC ACHS [facility]; Protocol Last Admin: 10/18/20 12:06 Dose: Not Given Documented by: Insulin Human Lispro (Insulin Lispro 100 Unit/Ml Insuln.Pen) 5 unit SC TIDCM [facility] Last Admin: 10/18/20 12:06 Dose: 5 units Documented by: Isosorbide Mononitrate (Isosorbide Mononitrate 30 Mg Tablet) 30 mg PO DAILY [facility] Last Admin: 10/18/20 09:40 Dose: 30 mg Documented by: Lacosamide (Lacosamide 100 Mg Tablet) 100 mg PO DAILY [facility] Last Admin: 10/18/20 09:45 Dose: 100 mg Documented by: Lorazepam (Lorazepam 2 Mg/Ml Syringe) 2 mg IV PRN PRN PRN Reason: for seizure Nystatin (Nystatin Powder 15gm Bottle) 1 applic TOPICAL BID [facility]; Protocol Last Admin: 10/18/20 09:41 Dose: 1 applic Documented by: Ondansetron HCl (Ondansetron 4 Mg/2 Ml Vial) 4 mg IV Q8H PRN PRN PRN Reason: NAUSEA/VOMITING Senna/Docusate Sodium (Senna/Docusate Sodium 1 Tablet) 2 tablet PO BID PRN PRN PRN Reason: Constipation Sodium Chloride (0.9% Saline Lock 10 Ml Syringe) 10 - 40 ml IV UD PRN PRN Reason: SALINE FLUSH Last Admin: 10/17/20 07:45 Dose: 10 ml Documented by: Trazodone HCl (Trazodone 50 Mg Tablet) 25 mg PO QHS [facility] Last Admin: 10/17/20 21:27 Dose: 25 mg Documented by: STROKE Vital Signs/Narrative: Vital Signs Temp Pulse Resp BP Pulse Ox 10/18/20 15:20 97.6 F L 72 18 136/53 H 95 Assessment/Plan I agree with the above and the following is representation my independent history and physical examination. ASSESSMENT Acute on chronic HFpEF Chronic hypoxic respiratory failure Secondary PAH WHO class II/III Chronic anemia Chronic thrombocytopenia Hemoptysis Mild hyponatremia DEBBIE on CKD stage IV Urinary retention DM-2 ELENITA COPD HTN HPL GERD History of stroke RA Seizure Bipolar Depression MO PLAN -Patient has lost approximately 9 pounds since admission -Negative greater than 8 L yesterday between dialysis and the Lasix drip -Continue Lasix drip today -Per nephrology note they will reevaluate tomorrow for continued dialysis/ultrafiltration -Mild hemoptysis has resolved question related to postnasal bleeding versus actual true hemoptysis -Continue to monitor -Blood sugar control is good at this time Inpatient E&M: [id number] [facility] L2
[2020-10-18 12:31] LABS: Bedside Glucose 146 mg/dL (70-110)
[2020-10-18 18:31] LABS: Bedside Glucose 140 mg/dL (70-110)
[2020-10-18] MEDS: traZODone 50 MG Tablet 25 MG PO (21:19)
[2020-10-18] MEDS: Atorvastatin Calcium 10 MG Tablet PO (21:19)
[2020-10-18] MEDS: Acetaminophen 325 MG Tablet 650 MG PO (21:27)
[2020-10-18 22:21] LABS: Bedside Glucose 136 mg/dL (70-110)
[2020-10-19] VITALS (11 sets, daily range): BP systolic 130–160; BP diastolic 50–55; PULSE 70–77; RESP 16–18; TEMP 36.4–36.9; O2SAT 92–96
[2020-10-19 05:32] LABS: Absolute Lymphocyte Count 1.04 X10^3/uL (0.83-4.51); Absolute Neutrophil Count 2.8 X10^3/uL (2.0-7.7); Basophil# 0.03 X10^3/uL; Basophil% 0.6 % (0-1); Eosinophil# 0.15 X10^3/uL; Eosinophils% 3.2 % (0-5); Hematocrit 25.1 % (37-47); Hemoglobin 7.9 g/dL (12.0-15.0); Lymphocyte # 1.04 X10^3/ul (0.83-4.51); Lymphocyte % 22.3 % (19-41); Mean Corp Hgb Conc 31.5 g/dL (32-36); Mean Corpuscular Hgb 32.1 pg (27.0-32.0); Mean Platelet Vol. 10.6 fl (6.2-12.0); Monocyte# 0.63 X10^3/uL; Monocyte% 13.5 % (0-10); NRBC Flagged by Analyzer 0 % (0-5); Neutrophil % 60.2 % (47-70); POSITIVE COUNT YES; Platelet Count 83 K/mm3 (150-450); RBC Distribution Width SD 55.8 fl (35.1-43.9); Red Blood Count 2.46 M/mm3 (4.2-5.4); White Blood Count 4.7 K/mm3 (4.4-11.0)
[2020-10-19 05:50] LABS: Anion Gap 5 (5-15); BUN 84 mg/dL (7-18); BUN/Creat Ratio 33.6 RATIO (10-20); Calcium,Total 8.6 mg/dL (8.5-10.1); Chloride 97 mmol/L (98-107); EST Glomerular Filtration Rate 20 mL/min (>60); Est Glom Filt Rate - Afr Amer 24 mL/min (>60); Estimated Creatinine Clearance 14.18 ml/min; Glucose 99 mg/dL (74-106); Potassium 4.6 mmol/L (3.5-5.1); Sodium Level 135 mmol/L (136-145)
[2020-10-19 06:40] LABS: Bedside Glucose 91 mg/dL (70-110)
[2020-10-19] MEDS: Aspirin 81 MG TAB.CHEW PO (08:24)
[2020-10-19] MEDS: Gabapentin 100 MG Capsule 200 MG PO ×2 (08:24→17:06)
[2020-10-19] MEDS: Isosorbide Mononitrate 30 MG Tablet PO (08:24)
[2020-10-19] MEDS: Escitalopram Oxalate 10 MG Tablet PO (08:25)
[2020-10-19] MEDS: amLODIPine 10 MG Tablet PO (08:25)
[2020-10-19] MEDS: Nystatin Powder 15gm Bottle 1 APPLIC TOPICAL ×2 (08:27→21:27)
[2020-10-19] MEDS: Lacosamide 100 MG Tablet PO (09:20)
--- NOTE | 2020-10-19 09:34 | CASEMGMT ---
Addendum entered by Monet Clemente 10/19/20 14:23: Chair time TTS 1220 per schedule letter. Marci RN KAMILA Addendum entered by Monet Clemente 10/19/20 13:50: This RN CM received call from Anabela at [facility] requesting call back, when this RN CM called back, Anabela was on lunch. Message left for her to call this RN KAMILA back. Treatment schedule was placed on the portal and this RN KAMILA printed off and provided a copy to [employer] [facility]. CM to follow for financial approval. Marci MALDONADO CM Addendum entered by Monet Clemente 10/19/20 09:39: Anastasiya Prasad, and Delvin at [facility] updated on referral, voice understanding. Pt will not be able to have dialysis at [facility] d/t DEBBIE but Delvin states pt will be on a TTS schedule and [employer] [facility] updated. CM to follow. Marci MALDONADO CM Original Note: Pt to be set up for OP dialysis again(last time recovered and was not needed). Pt states preference for [facility] again and referral faxed/placed in [facility] portal. CM to follow. Marci MALDONADO CM
--- NOTE | 2020-10-19 10:50 | PCM.PN.REN ---
Patient Problems: Active and Suspected Problems Shortness of breath (Acute) Debility (Acute) Vascular catheter fitting or adjustment (Acute) CHF (congestive heart failure) (Acute) Subjective: seen on dialysis, ultrafiltration only. Duresing well on lasix drip. Will convert to oral bumex today. Fluid removal as tolerated on dialysis. Creatinine stable at 2.5 with baseline creatinine 2.0. Denies SOB. Edema improved. - Physical Exam Vitals/I&O's: Vital Signs Temp Pulse Resp BP Pulse Ox 97.6 F L 72 18 136/50 H 96 10/19/20 09:11 10/19/20 09:11 10/19/20 09:11 10/19/20 09:11 10/19/20 09:11 Oxygen Flow Rate (L/min) 2 Oxygen Delivery Method Nasal Cannula Weight: 104.6 kg Body Mass Index (BMI) 50.8 Finger Stick Blood Glucose 410 Intake and Output for Last 24 Hours 10/17/20 10/18/20 10/19/20 23:59 23:59 23:59 Intake Total 886.57 / 886.57 1003.2 / 1003.2 140 / 140 Output Total 9175 / 9175 3950 / 3950 1200 / 1200 Balance -8288.43 / -8288.43 -2946.8 / -2946.8 -1060 / -1060 General: Alert, Oriented x3, Cooperative Lungs: Clear to auscultation Cardiovascular: Regular rate, Murmur Abdomen: Bowel Sounds Present, Soft, Non Tender, Non-Distended, Obese Extremities: Edema - improving Skin: - - ecchymosis chest wall from tunneled catheter Psych/Mental Status: Normal Affect, Appropriate, Alert and oriented to time, place, person, mood and affect Microbiology Past 72 Hours 10/16/20 19:20 Mucosa - Nasopharyngeal SARS-CoV-2 Antigen (Rapid) - Final Laboratory Results 10/18/20 12:00: POC Glucose 146 H 10/18/20 18:18: POC Glucose 140 H 10/18/20 21:18: POC Glucose 136 H 10/19/20 05:20: Sodium 135 L, Potassium 4.6, Chloride 97 L, Carbon Dioxide 33.0 H, Anion Gap 5, BUN 84 H, Creatinine 2.50 H, Estim Creat Clear Calc 14.18, Est GFR (MDRD) Af Amer 24 L, Est GFR (MDRD) Non-Af 20 L, BUN/Creatinine Ratio 33.6 H, Glucose 99, Calcium 8.6 10/19/20 05:20: WBC 4.7, RBC 2.46 L, Hgb 7.9 L, Hct 25.1 L, MCV 102.0 H, MCH 32.1 H, MCHC 31.5 L, RDW Std Deviation 55.8 H, RDW Coeff of Kusum 15.0 H, Plt Count 83 L, MPV 10.6, Immature Gran % (Auto) 0.200, Neut % (Auto) 60.2, Lymph % (Auto) 22.3, [place] % (Auto) 13.5 H, Eos % (Auto) 3.2, Baso % (Auto) 0.6, Absolute Neuts (auto) 2.8, Absolute Lymphs (auto) 1.04, Nucleated RBC % 0 10/19/20 06:33: POC Glucose 91 Current Medications Acetaminophen (Acetaminophen 325 Mg Tablet) 650 mg PO Q6H PRN PRN PRN Reason: Pain Score 1-10/Temp > 100.7 F Last Admin: 10/18/20 21:27 Dose: 650 mg Documented by: Amlodipine Besylate (Amlodipine 10 Mg Tablet) 10 mg PO DAILY [facility] Last Admin: 10/19/20 08:25 Dose: 10 mg Documented by: Aspirin ([facility] Last Admin: 10/19/20 08:24 Dose: 81 mg Documented by: Atorvastatin Calcium (Atorvastatin Calcium 10 Mg Tablet) 10 mg PO QHS [facility] Last Admin: 10/18/20 21:19 Dose: 10 mg Documented by: Escitalopram Oxalate (Escitalopram Oxalate 10 Mg Tablet) 10 mg PO DAILY [facility] Last Admin: 10/19/20 08:25 Dose: 10 mg Documented by: Gabap[facility] ([facility]apsule) [facility] Last Admin: 10/19/20 08:24 Dose: 200 mg Documented by: Heparin Sodium (Porcine) (Heparin Injection (Vial) 5,000 Unit/Ml Vial) 5,000 unit SC Q8 [facility] Last Admin: 10/19/20 08:07 Dose: Not Given Documented by: Sodium Chloride () 250 mls @ 15 mls/hr IV .[id number] PRN PRN Reason: Saline Flush Sodium Chloride () 250 mls @ 15 mls/hr IV .[id number] PRN PRN Reason: Additional IVPB Infusion Furosemide 500 mg/ N/A 50 mls @ 2 mls/hr CONT INF .Q25H [facility] Last Admin: 10/18/20 09:40 Dose: 20 mg/hr, 2 mls/hr Documented by: Insulin Glargine (Insulin Glargine 100 Units/Ml Pen) 10 units SC BID [facility] Last Admin: 10/19/20 08:24 Dose: 10 units Documented by: Insulin Human Lispro (Insulin Lispro 100 Unit/Ml Insuln.Pen) 0 unit SC ACHS [facility]; Protocol Last Admin: 10/19/20 07:26 Dose: Not Given Documented by: Insulin Human Lispro (Insulin Lispro 100 Unit/Ml Insuln.Pen) 5 unit SC TIDCM [facility] Last Admin: 10/19/20 08:06 Dose: Not Given Documented by: Isosorbide Mononitrate (Isosorbide Mononitrate 30 Mg Tablet) 30 mg PO DAILY [facility] Last Admin: 10/19/20 08:24 Dose: 30 mg Documented by: Lacosamide (Lacosamide 100 Mg Tablet) 100 mg PO DAILY [facility] Last Admin: 10/19/20 09:20 Dose: 100 mg Documented by: Lorazepam (Lorazepam 2 Mg/Ml Syringe) 2 mg IV PRN PRN PRN Reason: for seizure Nystatin (Nystatin Powder 15gm Bottle) 1 applic TOPICAL BID [facility]; Protocol Last Admin: 10/19/20 08:27 Dose: 1 applic Documented by: Ondansetron HCl (Ondansetron 4 Mg/2 Ml Vial) 4 mg IV Q8H PRN PRN PRN Reason: NAUSEA/VOMITING Senna/Docusate Sodium (Senna/Docusate Sodium 1 Tablet) 2 tablet PO BID PRN PRN PRN Reason: Constipation Sodium Chloride (0.9% Saline Lock 10 Ml Syringe) 10 - 40 ml IV UD PRN PRN Reason: SALINE FLUSH Last Admin: 10/17/20 07:45 Dose: 10 ml Documented by: Trazodone HCl (Trazodone 50 Mg Tablet) 25 mg PO QHS [facility] Last Admin: 10/18/20 21:19 Dose: 25 mg Documented by: Medical Necessity - Tobacco Use Smoking Status: Former smoker Assessment/Plan All Active Problems Shortness of breath (Acute) Debility (Acute) Vascular catheter fitting or adjustment (Acute) CHF (congestive heart failure) (Acute) 1. Acute on CKD Stage 4. Creatinine improved to 2.5 with baseline 2.0. Underlying diabetic nephropathy with 24h urine CRCL 20cc/min last admit. Diuresing well on lasix drip. Continue to monitor renal fxn. to see if need renal replacement on a chronic basis. Receiving second ultrafiltration treatment today s/p tunneled dialysis catheter. 2. Diastolic CHF on lasix drip. Change to oral bumex 1mg bid 3. DM2 pcp mgmt 4. Seizure disorder 5. Bipolar disease 6. Anasarca with hypoalbuminemia improved edema from lasix drip, IUF treatment #2 today 7. iron def anemia hgb 8.7g. continue iv iron load LÁZARO CALDERON, case mgmt
--- NOTE | 2020-10-19 11:01 | PCM.PN.HOSP ---
<Alfred Liang - Last Filed: 10/19/20 11:01> Patient Problems: Active and Suspected Problems Shortness of breath (Acute) Debility (Acute) Vascular catheter fitting or adjustment (Acute) CHF (congestive heart failure) (Acute) Subjective: Patient is a 74-year-old female who is sleeping in bed while being dialyzed. Attempted to assess patient mentation, however she was somnolent and did not wish to carry on in conversation. Provider honored patient wishes and left her to be dialyzed. Objective: Clinical Impression(s) from Imaging Studies Chest X-Ray 10/13/20 16:03 IMPRESSION: Moderate right pleural effusion. Basilar infiltrate cannot be excluded. Left lower lobe scarring and possible retrocardiac infiltrate. Electronically Signed: Tao Simpson DO at 17:33 EDT Tel [phone], Service support , Chest X-Ray 10/17/20 09:00 IMPRESSION: 1. Right jugular hemodialysis catheter without pneumothorax. 2. Decreased hilar vascular prominence when compared to prior study. Electronically Signed: Wicho Del Angel DO at 9:45 EDT Tel [phone], Service support , Chest X-Ray 10/17/20 20:00 IMPRESSION: No change from earlier today. Electronically Signed: Colton Lee MD at 6:17 EDT Tel , Service support , Microbiology 10/16/20 19:20 Mucosa - Nasopharyngeal SARS-CoV-2 Antigen (Rapid) - Final Vitals/I&O's: Vital Signs Temp Pulse Resp BP Pulse Ox 97.6 F L 72 18 136/50 H 96 10/19/20 09:11 10/19/20 09:11 10/19/20 09:11 10/19/20 09:11 10/19/20 09:11 Oxygen Flow Rate (L/min) 2 Oxygen Delivery Method Nasal Cannula Weight: 230 lb 9.656 oz Body Mass Index (BMI) 50.8 Finger Stick Blood Glucose 410 Intake and Output for Last 24 Hours 10/17/20 10/18/20 10/19/20 23:59 23:59 23:59 Intake Total 886.57 / 886.57 1003.2 / 1003.2 140 / 140 Output Total 9175 / 9175 3950 / 3950 1200 / 1200 Balance -8288.43 / -8288.43 -2946.8 / -2946.8 -1060 / -1060 General: Alert, No apparent distress HEENT: Atraumatic, PERRLA, EOMI, Normocephalic Neck: Supple, No JVD, Negative Carotid Bruits Lungs: Diminished Cardiovascular: Regular rate, No murmurs Abdomen: Bowel Sounds Present, Soft, Non Tender, Obese Extremities: No edema, Capillary Refill Less than 3 Seconds Skin: No rashes, No breakdown Musculoskeletal: No Tenderness to Palpation of Joints or Extremities Neurological: - - Unable to assess due to patient lethargy. Psych/Mental Status: Normal Affect, Appropriate Microbiology Past 72 Hours 10/16/20 19:20 Mucosa - Nasopharyngeal SARS-CoV-2 Antigen (Rapid) - Final Laboratory Results 10/18/20 12:00: POC Glucose 146 H 10/18/20 18:18: POC Glucose 140 H 10/18/20 21:18: POC Glucose 136 H 10/19/20 05:20: Sodium 135 L, Potassium 4.6, Chloride 97 L, Carbon Dioxide 33.0 H, Anion Gap 5, BUN 84 H, Creatinine 2.50 H, Estim Creat Clear Calc 14.18, Est GFR (MDRD) Af Amer 24 L, Est GFR (MDRD) Non-Af 20 L, BUN/Creatinine Ratio 33.6 H, Glucose 99, Calcium 8.6 10/19/20 05:20: WBC 4.7, RBC 2.46 L, Hgb 7.9 L, Hct 25.1 L, MCV 102.0 H, MCH 32.1 H, MCHC 31.5 L, RDW Std Deviation 55.8 H, RDW Coeff of Kusum 15.0 H, Plt Count 83 L, MPV 10.6, Immature Gran % (Auto) 0.200, Neut % (Auto) 60.2, Lymph % (Auto) 22.3, Sherman % (Auto) 13.5 H, Eos % (Auto) 3.2, Baso % (Auto) 0.6, Absolute Neuts (auto) 2.8, Absolute Lymphs (auto) 1.04, Nucleated RBC % 0 10/19/20 06:33: POC Glucose 91 Current Medications Acetaminophen (Acetaminophen 325 Mg Tablet) 650 mg PO Q6H PRN PRN PRN Reason: Pain Score 1-10/Temp > 100.7 F Last Admin: 10/18/20 21:27 Dose: 650 mg Documented by: Amlodipine Besylate (Amlodipine 10 Mg Tablet) 10 mg PO DAILY [facility] Last Admin: 10/19/20 08:25 Dose: 10 mg Documented by: Aspirin (Aspirin 81 Mg Tab.Chew) 81 mg PO DAILYCM [facility] Last Admin: 10/19/20 08:24 Dose: 81 mg Documented by: Atorvastatin Calcium (Atorvastatin Calcium 10 Mg Tablet) 10 mg PO QHS [facility] Last Admin: 10/18/20 21:19 Dose: 10 mg Documented by: Bumetanide (Bumetanide 0.5 Mg Tablet) 1 mg PO DAILY [facility] Escitalopram Oxalate (Escitalopram Oxalate 10 Mg Tablet) 10 mg PO DAILY [facility] Last Admin: 10/19/20 08:25 Dose: 10 mg Documented by: Gabapentin (Gabapentin 100 Mg Capsule) 200 mg PO BIDCM [facility] Last Admin: 10/19/20 08:24 Dose: 200 mg Documented by: Heparin Sodium (Porcine) (Heparin Injection (Vial) 5,000 Unit/Ml Vial) 5,000 unit SC Q8 [facility] Last Admin: 10/19/20 08:07 Dose: Not Given Documented by: Sodium Chloride () 250 mls @ 15 mls/hr IV .[id number] PRN PRN Reason: Saline Flush Sodium Chloride () 250 mls @ 15 mls/hr IV .[id number] PRN PRN Reason: Additional IVPB Infusion Furosemide 500 mg/ N/A 50 mls @ 2 mls/hr CONT INF .Q25H [facility] Last Admin: 10/18/20 09:40 Dose: 20 mg/hr, 2 mls/hr Documented by: Insulin Glargine (Insulin Glargine 100 Units/Ml Pen) 10 units SC BID [facility] Last Admin: 10/19/20 08:24 Dose: 10 units Documented by: Insulin Human Lispro (Insulin Lispro 100 Unit/Ml Insuln.Pen) 0 unit SC ACHS [facility]; Protocol Last Admin: 10/19/20 07:26 Dose: Not Given Documented by: Insulin Human Lispro (Insulin Lispro 100 Unit/Ml Insuln.Pen) 5 unit SC TIDCM [facility] Last Admin: 10/19/20 08:06 Dose: Not Given Documented by: Isosorbide Mononitrate (Isosorbide Mononitrate 30 Mg Tablet) 30 mg PO DAILY [facility] Last Admin: 10/19/20 08:24 Dose: 30 mg Documented by: Lacosamide (Lacosamide 100 Mg Tablet) 100 mg PO DAILY [facility] Last Admin: 10/19/20 09:20 Dose: 100 mg Documented by: Lorazepam (Lorazepam 2 Mg/Ml Syringe) 2 mg IV PRN PRN PRN Reason: for seizure Nystatin (Nystatin Powder 15gm Bottle) 1 applic TOPICAL BID [facility]; Protocol Last Admin: 10/19/20 08:27 Dose: 1 applic Documented by: Ondansetron HCl (Ondansetron 4 Mg/2 Ml Vial) 4 mg IV Q8H PRN PRN PRN Reason: NAUSEA/VOMITING Senna/Docusate Sodium (Senna/Docusate Sodium 1 Tablet) 2 tablet PO BID PRN PRN PRN Reason: Constipation Sodium Chloride (0.9% Saline Lock 10 Ml Syringe) 10 - 40 ml IV UD PRN PRN Reason: SALINE FLUSH Last Admin: 10/17/20 07:45 Dose: 10 ml Documented by: Trazodone HCl (Trazodone 50 Mg Tablet) 25 mg PO QHS [facility] Last Admin: 10/18/20 21:19 Dose: 25 mg Documented by: STROKE Vital Signs/Narrative: Vital Signs Temp Pulse Resp BP Pulse Ox 10/19/20 09:11 97.6 F L 72 18 136/50 H 96 10/19/20 08:29 92 10/19/20 08:05 92 10/19/20 07:25 94 Medical Necessity - Tobacco Use Smoking Status: Former smoker Assessment/Plan All Active Problems Shortness of breath (Acute) Debility (Acute) Vascular catheter fitting or adjustment (Acute) CHF (congestive heart failure) (Acute) Patient is a 74-year-old female who presented to the ED on 10/13/2020 with a chief complaint of increased weight gain, shortness of breath and increased swelling. Unable to us assess patient status today as she was being dialyzed on my examination and requested to be left alone to sleep during her dialysis. Based off my physical exam she appears significantly less distended than earlier throughout her admission. Talked with the support representative, who was unclear whether the patient will require further dialysis. Initiated Bumex 1 mg PO daily starting at 1999 this evening and to stop continuous Lasix infusion. Discharge back to [facility] pending nephrology. 1) Acute on chronic CHF with preserved ejection fraction with anasarca Discontinue Lasix drip. Treatment complicated by CKD stage IV. Palliative care has been consulted and has agreed to follow-up with patient once he is discharged. Initiated Bumex 1 mg PO daily starting at 199910/20/2019. 2) CKD stage IV Second dialysis currently taking place, Current weight 230 pounds Creatinine continuing to improve from admission; currently 2.50. Future dialysis pending nephrology. 3) DM2 Lantus adjusted on 10/16/2020 due to hypoglycemia, decreased to 10 units twice daily. POC glucose today 91. 4) ELENITA Continue CPAP 5) COPD Continue albuterol aerosol as needed 6) Hypertension Stable, continue amlodipine and metoprolol. Continue to hold lisinopril. 7) Hyperlipidemia Continue statin. 8) history of CVA Continue aspirin and statin. 9) Bipolar disorder/depression Continue on Lexapro. 10) Anemia of chronic disease Stable, continue to monitor CBC. 11) Seizure disorder Continue Vimpat. DVT Prophylaxis -Heparin SC Patient seen by Alfred Liang PA-C, under the supervision of Dr. Negrete. <Man Negrete - Last Filed: 10/19/20 12:09> Vitals/I&O's: Vital Signs Temp Pulse Resp BP Pulse Ox 97.6 F L 72 18 136/50 H 96 10/19/20 09:11 10/19/20 09:11 10/19/20 09:11 10/19/20 09:11 10/19/20 09:11 Oxygen Flow Rate (L/min) 2 Oxygen Delivery Method Nasal Cannula Weight: 104.6 kg Body Mass Index (BMI) 50.8 Finger Stick Blood Glucose 410 Intake and Output for Last 24 Hours 10/17/20 10/18/20 10/19/20 23:59 23:59 23:59 Intake Total 886.57 / 886.57 1003.2 / 1003.2 140 / 140 Output Total 9175 / 9175 3950 / 3950 1200 / 1200 Balance -8288.43 / -8288.43 -2946.8 / -2946.8 -1060 / -1060 Microbiology Past 72 Hours 10/16/20 19:20 Mucosa - Nasopharyngeal SARS-CoV-2 Antigen (Rapid) - Final Laboratory Results 10/18/20 12:00: POC Glucose 146 H 10/18/20 18:18: POC Glucose 140 H 10/18/20 21:18: POC Glucose 136 H 10/19/20 05:20: Sodium 135 L, Potassium 4.6, Chloride 97 L, Carbon Dioxide 33.0 H, Anion Gap 5, BUN 84 H, Creatinine 2.50 H, Estim Creat Clear Calc 14.18, Est GFR (MDRD) Af Amer 24 L, Est GFR (MDRD) Non-Af 20 L, BUN/Creatinine Ratio 33.6 H, Glucose 99, Calcium 8.6 10/19/20 05:20: WBC 4.7, RBC 2.46 L, Hgb 7.9 L, Hct 25.1 L, MCV 102.0 H, MCH 32.1 H, MCHC 31.5 L, RDW Std Deviation 55.8 H, RDW Coeff of Kusum 15.0 H, Plt Count 83 L, MPV 10.6, Immature Gran % (Auto) 0.200, Neut % (Auto) 60.2, Lymph % (Auto) 22.3, Sherman % (Auto) 13.5 H, Eos % (Auto) 3.2, Baso % (Auto) 0.6, Absolute Neuts (auto) 2.8, Absolute Lymphs (auto) 1.04, Nucleated RBC % 0 10/19/20 06:33: POC Glucose 91 10/19/20 11:40: POC Glucose 171 H Current Medications Acetaminophen (Acetaminophen 325 Mg Tablet) 650 mg PO Q6H PRN PRN PRN Reason: Pain Score 1-10/Temp > 100.7 F Last Admin: 10/18/20 21:27 Dose: 650 mg Documented by: Amlodipine Besylate (Amlodipine 10 Mg Tablet) 10 mg PO DAILY [facility] Last Admin: 10/19/20 08:25 Dose: 10 mg Documented by: Aspirin (Aspirin 81 Mg Tab.Chew) [facility] Last Admin: 10/19/20 08:24 Dose: 81 mg Documented by: Atorvastatin Calcium (Atorvastatin Calcium 10 Mg Tablet) 10 mg PO QHS [facility] Last Admin: 10/18/20 21:19 Dose: 10 mg Documented by: Bumetanide (Bumetanide 0.5 Mg Tablet) 1 mg PO DAILY [facility] Escitalopram Oxalate (Escitalopram Oxalate 10 Mg Tablet) 10 mg PO DAILY [facility] Last Admin: 10/19/20 08:25 Dose: 10 mg Documented by: Gabapentin (Gabapentin 100 Mg Capsule) [facility] Last Admin: 10/19/20 08:24 Dose: 200 mg Documented by: Heparin Sodium (Porcine) (Heparin Injection (Vial) 5,000 Unit/Ml Vial) 5,000 unit SC Q8 [facility] Last Admin: 10/19/20 08:07 Dose: Not Given Documented by: Sodium Chloride () 250 mls @ 15 mls/hr IV .[id number] PRN PRN Reason: Saline Flush Sodium Chloride () 250 mls @ 15 mls/hr IV .[id number] PRN PRN Reason: Additional IVPB Infusion Insulin Glargine (Insulin Glargine 100 Units/Ml Pen) 10 units SC BID [facility] Last Admin: 10/19/20 08:24 Dose: 10 units Documented by: Insulin Human Lispro (Insulin Lispro 100 Unit/Ml Insuln.Pen) 0 unit SC ACHS [facility]; Protocol Last Admin: 10/19/20 07:26 Dose: Not Given Documented by: Insulin Human Lispro (Insulin Lispro 100 Unit/Ml Insuln.Pen) 5 unit SC TIDCM [facility] Last Admin: 10/19/20 08:06 Dose: Not Given Documented by: Isosorbide Mononitrate (Isosorbide Mononitrate 30 Mg Tablet) 30 mg PO DAILY [facility] Last Admin: 10/19/20 08:24 Dose: 30 mg Documented by: Lacosamide (Lacosamide 100 Mg Tablet) 100 mg PO DAILY [facility] Last Admin: 10/19/20 09:20 Dose: 100 mg Documented by: Lorazepam (Lorazepam 2 Mg/Ml Syringe) 2 mg IV PRN PRN PRN Reason: for seizure Nystatin (Nystatin Powder 15gm Bottle) 1 applic TOPICAL BID [facility]; Protocol Last Admin: 10/19/20 08:27 Dose: 1 applic Documented by: Ondansetron HCl (Ondansetron 4 Mg/2 Ml Vial) 4 mg IV Q8H PRN PRN PRN Reason: NAUSEA/VOMITING Senna/Docusate Sodium (Senna/Docusate Sodium 1 Tablet) 2 tablet PO BID PRN PRN PRN Reason: Constipation Sodium Chloride (0.9% Saline Lock 10 Ml Syringe) 10 - 40 ml IV UD PRN PRN Reason: SALINE FLUSH Last Admin: 10/17/20 07:45 Dose: 10 ml Documented by: Trazodone HCl (Trazodone 50 Mg Tablet) 25 mg PO QHS [facility] Last Admin: 10/18/20 21:19 Dose: 25 mg Documented by: STROKE Vital Signs/Narrative: Vital Signs Temp Pulse Resp BP Pulse Ox 10/19/20 09:11 97.6 F L 72 18 136/50 H 96 10/19/20 08:29 92 10/19/20 08:05 92 Assessment/Plan This patient was seen in conjunction with Alfred Liang PA-C. I have independently interviewed and examined the patient and reviewed pertinent historical, laboratory, and other data. Please refer to Alfred Liang PA-C's note for details of this patient's presentation, findings, and recommendations. I have reviewed Alfred Liang PA-C's note and concur with documented findings. In brief, patient is a 74-year-old lady with chronic kidney disease stage IV congestive heart failure with preserved ejection fraction who presented with progressive shortness of breath and anasarca patient underwent temporary dialysis catheter placement with initiation of dialysis Physical Examination: GENERAL: cooperative HEENT: Atraumatic; EYES; Anicteric, Normal Conjunctiva NECK; supple, normal thyroid, RESPIRATORY: Diminished to auscultation CARDIOVASCULAR: Regular S1 S2, GI: soft, normoactive bowel sounds, : No Renal angle tenderness; EXTREMITIES: No edema, no clubbing, MUSCULOSKELETAL: no muscle waisting NEURO: Awake; no lateralizing signs. SKIN: No Rash PSYCH; Flat affect Assessment: 1. Acute on chronic congestive heart failure with preserved ejection fraction 2. Chronic kidney disease stage IV with initiation of dialysis 3. Diabetes mellitus type 2 4. Obstructive sleep apnea 5. Essential tension 6. COPD 7. Dyslipidemia 8. GERD 9. Obesity with BMI of 45 10. Anemia of chronic disorder 11. Bipolar disorder 12. History of CVA 13. Seizure disorder 14. DVT prophylaxis Recommendations: 1. I have discussed the results of my overview and impressions with the patient 2. Options for management were reviewed Inpatient E&M: 29051 Subs Hosp L2
[2020-10-19 11:45] LABS: Bedside Glucose 171 mg/dL (70-110)
--- NOTE | 2020-10-19 13:18 | DIALYSIS ---
IUF tx today as ordered for -2700ml. tolerated well post b/p 122/76-78. Report to Lorena MALDONADO
[2020-10-19] MEDS: Insulin Lispro 100 UNIT/ML INSULN.PEN SC ×3 (13:27→21:22)
[2020-10-19] MEDS: Heparin 10,000 UNITS/10 ML Vial IV (13:28)
--- NOTE | 2020-10-19 14:30 | CASEMGMT ---
Patient has a dialysis schedule should she need dialysis at discharge. ANNIE faxed updates to [facility] this am. ANNIE called Valentina with [facility] and let her know that patient will be here another day or so to determine if she needs dialysis at d/c. ANNIE told Valentina's schedule will be ,, and Sat at 12:20p. Katelynn ANDRADE
[2020-10-19 17:26] LABS: Bedside Glucose 133 mg/dL (70-110)
[2020-10-19] MEDS: Bumetanide 0.5 MG Tablet 1 MG PO (21:21)
[2020-10-19] MEDS: traZODone 50 MG Tablet 25 MG PO (21:23)
[2020-10-19] MEDS: Atorvastatin Calcium 10 MG Tablet PO (21:23)
[2020-10-19 23:00] LABS: Bedside Glucose 182 mg/dL (70-110)
[2020-10-20] VITALS (8 sets, daily range): BP systolic 131–151; BP diastolic 55–71; PULSE 72–75; RESP 14–18; TEMP 36.3–36.9; O2SAT 91–96
[2020-10-20 07:03] LABS: Absolute Lymphocyte Count 0.93 X10^3/uL (0.83-4.51); Absolute Neutrophil Count 2.2 X10^3/uL (2.0-7.7); Basophil# 0.03 X10^3/uL; Basophil% 0.8 % (0-1); Eosinophil# 0.13 X10^3/uL; Eosinophils% 3.4 % (0-5); Hematocrit 26.2 % (37-47); Hemoglobin 8.1 g/dL (12.0-15.0); Lymphocyte # 0.93 X10^3/ul (0.83-4.51); Lymphocyte % 24.1 % (19-41); Mean Corp Hgb Conc 30.9 g/dL (32-36); Mean Corpuscular Hgb 31.9 pg (27.0-32.0); Mean Corpuscular Volume 103.1 fL (81-99); Mean Platelet Vol. 11.4 fl (6.2-12.0); Monocyte# 0.58 X10^3/uL; NRBC Flagged by Analyzer 0 % (0-5); Neutrophil # 2.18 X10^3/uL (2.7-7.7); Neutrophil % 56.4 % (47-70); POSITIVE COUNT YES; Platelet Count 74 K/mm3 (150-450); RBC Distribution Width CV 15.4 % (11.6-14.6); RBC Distribution Width SD 57.1 fl (35.1-43.9); Red Blood Count 2.54 M/mm3 (4.2-5.4); White Blood Count 3.9 K/mm3 (4.4-11.0)
[2020-10-20 07:39] LABS: Anion Gap 4 (5-15); BUN 77 mg/dL (7-18); BUN/Creat Ratio 32.1 RATIO (10-20); Calcium,Total 8.8 mg/dL (8.5-10.1); Chloride 96 mmol/L (98-107); EST Glomerular Filtration Rate 21 mL/min (>60); Est Glom Filt Rate - Afr Amer 25 mL/min (>60); Estimated Creatinine Clearance 14.77 ml/min; Glucose 104 mg/dL (74-106); Magnesium 1.8 mg/dL (1.6-2.6); Potassium 5.7 mmol/L (3.5-5.1); Sodium Level 134 mmol/L (136-145)
[2020-10-20] MEDS: Gabapentin 100 MG Capsule 200 MG PO (09:49)
[2020-10-20] MEDS: Aspirin 81 MG TAB.CHEW PO (09:50)
[2020-10-20] MEDS: Bumetanide 0.5 MG Tablet 1 MG PO (09:51)
[2020-10-20] MEDS: Isosorbide Mononitrate 30 MG Tablet PO (09:51)
[2020-10-20] MEDS: amLODIPine 10 MG Tablet PO (09:52)
[2020-10-20] MEDS: Escitalopram Oxalate 10 MG Tablet PO (09:53)
[2020-10-20] MEDS: Nystatin Powder 15gm Bottle 1 APPLIC TOPICAL (09:53)
[2020-10-20] MEDS: Insulin Lispro 100 UNIT/ML INSULN.PEN SC ×3 (09:56→12:46)
[2020-10-20 10:05] LABS: Potassium 4.5 mmol/L (3.5-5.1)
[2020-10-20] MEDS: Lacosamide 100 MG Tablet PO (10:08)
[2020-10-20] MEDS: Sodium Polystyrene Sulfonate 15 GM/60 ML UDC 30 GM PO (10:24)
--- NOTE | 2020-10-20 10:26 | TREXTCAR_ITS ---
- Diet 10/19/20 13:20 Diet: Renal - ConsCHO - Dejon Cont Dietary Modifications:: Sodium Restricted Consistent Carbohydrate Phosphorus Restricted Fluid restriction:: 1500 mL How many daily calories?: 1800 calorie - Routine Orders/Code Status Code Status: DNRCC-A - Wound(s) low abd fold Wound Type: scaring RIGHT CHEST Wound Type: Surgical Incision - Tunneled dialysis catheter - Therapies Weight Bearing: Weight bearing as tolerated Physical Therapy: Eval and Treat Occupational Therapy: Eval and Treat - Allergies/Procedures Done in Hospital Allergies/Adverse Reactions: Allergies ciprofloxacin [From Cipro] Allergy (Verified 10/13/20 15:20) Rash codeine Allergy (Verified 10/13/20 15:20) Shortness of breath Penicillins Allergy (Verified 10/13/20 15:20) Hives CILLINS Allergy (Uncoded 10/13/20 15:20) Unknown - Type of Care/Length of Stay Estimated LOS: More Than 30 Days Type of Care Needed: Skilled Rehab Potential: Fair Prognosis: Fair - Additional Orders/Day of Discharge Day of Discharge: 10/20/20 - Dietary and Speech Recommendations Dietitian Recommendations/Changes: Will change diet to 1800 calorie/Consistent Carbohydrate; general Renal. ONS as needed if PO fails at meals--will defer for now. Will continue to monitor PO, wt, labs and follow-up. - Follow Up Care Primary Care Physician: Bailey Toribio MD [Primary Care Provider] - Please follow up with your Primary Care Physician in: Within the next 2 weeks Please Follow Up With: Dr. Christine Steward - Meat Department Manager When: Within the next week
--- NOTE | 2020-10-20 10:35 | CASEMGMT ---
Addendum entered by Monet Clemente 10/20/20 12:02: Nazia also aware that pt to discharge back to [facility] today and will be there for 1st OP treatment. Marci MALDONADO CM Addendum entered by Monet Clemente 10/20/20 12:01: Per Dr. Steward, she wants pt to have UF on and call to Nazia at [facility] and she states that pt's chair time will be 1120. [employer] VALENCIA updated, voices understanding. Marci MALDONADO CM Original Note: Per Shanice at [facility], pt is financially cleared and ready to start OP dialysis on at 1220. [employer] VALENCIA aware, voices understanding. This RN CM to room to update pt on all, voices understanding and pt voices to this RN CM how much better she feels while on dialysis. Pt voices no further questions/concerns/needs. Marci MALDONDAO CM
--- NOTE | 2020-10-20 10:51 | PHA.DC.MR ---
Pharmacy Service has performed discharge medication reconciliation for this patient. The patient's discharge medication list was reviewed for discrepancies and discrepancies were resolved. Home Medications Insulin Lispro [Humalog KwikPen] 5 unit SUBCUT TIDCM 06/10/19 traZODone [Desyrel] 25 mg PO QHS 06/29/19 Atorvastatin Calcium [Lipitor] 10 mg PO QHS 09/06/19 Ergocalciferol [Vitamin D] 50,000 unit PO KELLOGG 09/06/19 Gabapentin [Neurontin] 200 mg PO BID #0 09/06/19 Escitalopram Oxalate [Lexapro] 10 mg PO DAILY 05/05/20 Amlodipine Besylate [Norvasc] 10 mg PO DAILY 09/29/20 Aspirin 81 mg PO DAILY 09/29/20 Lacosamide [Vimpat] 100 mg PO DAILY 09/29/20 Acetaminophen [Tylenol] 650 mg PO Q4H PRN 10/13/20 Insulin Glargine,Hum.rec.anlog [Basaglar Kwikpen U-100] 16 unit SQ BID 10/13/20 Isosorbide Mononitrate [Isosorbide Mononitrate ER] 30 mg PO DAILY 10/13/20 Lisinopril [Zestril] 10 mg PO DAILY 10/13/20 Metoprolol Succinate 75 mg PO DAILY 10/13/20 Bumetanide [Bumex] 1 mg PO BID #120 tab 10/20/20
--- NOTE | 2020-10-20 11:22 | CASEMGMT ---
Patient is ready for discharge back to [facility] today. ANNIE faxed orders. Waiting to set up transport as Dr Steward would like to see patient before she leaves. Plan: d/c back to [facility] under skilled level of care. Katelynn Bui MSW [facility]
--- NOTE | 2020-10-20 11:58 | PN.RENAL_ITS ---
Patient Problems: Active and Suspected Problems Shortness of breath (Acute) Debility (Acute) Vascular catheter fitting or adjustment (Acute) CHF (congestive heart failure) (Acute) Subjective: still with edema. Creatinine stable at 2.4 today. Repeat K wnl from 5.7. Going back to [facility] today. Continue with oral bumex twice a day. - Physical Exam Vitals/I&O's: Vital Signs Temp Pulse Resp BP Pulse Ox 97.5 F L 72 16 131/55 H 96 10/20/20 08:30 10/20/20 08:30 10/20/20 08:30 10/20/20 08:30 10/20/20 08:30 Oxygen Flow Rate (L/min) 2 Oxygen Delivery Method Nasal Cannula Weight: 99.4 kg Body Mass Index (BMI) 50.8 Finger Stick Blood Glucose 410 Intake and Output for Last 24 Hours 10/18/20 10/19/20 10/20/20 23:59 23:59 23:59 Intake Total 1003.2 / 1003.2 750 / 870 180 / 180 Output Total 3950 / 3950 3450 / 4150 1700 / 1700 Balance -2946.8 / -2946.8 -2700 / -3280 -1520 / -1520 General: Alert, Oriented x3, Cooperative, No apparent distress Lungs: Clear to auscultation Cardiovascular: Regular rate, Murmur, No rub noted Abdomen: Bowel Sounds Present, Soft, Non Tender, Distended, Obese Extremities: Edema Psych/Mental Status: Normal Affect, Appropriate, Alert and oriented to time, place, person, mood and affect Laboratory Results 10/19/20 17:04: POC Glucose 133 H 10/19/20 21:20: POC Glucose 182 H 10/20/20 05:50: Sodium 134 L, Potassium 5.7 H, Chloride 96 L, Carbon Dioxide 34.0 H, Anion Gap 4 L, BUN 77 H, Creatinine 2.40 H, Estim Creat Clear Calc 14.77, Est GFR (MDRD) Af Amer 25 L, Est GFR (MDRD) Non-Af 21 L, BUN/Creatinine Ratio 32.1 H, Glucose 104, Calcium 8.8, Magnesium 1.8 10/20/20 05:50: WBC 3.9 L, RBC 2.54 L, Hgb 8.1 L, Hct 26.2 L, MCV 103.1 H, MCH 31.9, MCHC 30.9 L, RDW Std Deviation 57.1 H, RDW Coeff of Kusum 15.4 H, Plt Count 74 L, MPV 11.4, Immature Gran % (Auto) 0.300, Neut % (Auto) 56.4, Lymph % (Auto) 24.1, Heard % (Auto) 15.0 H, Eos % (Auto) 3.4, Baso % (Auto) 0.8, Absolute Neuts (auto) 2.2, Absolute Lymphs (auto) 0.93, Nucleated RBC % 0 10/20/20 09:50: Potassium 4.5 Current Medications Acetaminophen (Acetaminophen 325 Mg Tablet) 650 mg PO Q6H PRN PRN PRN Reason: Pain Score 1-10/Temp > 100.7 F Last Admin: 10/18/20 21:27 Dose: 650 mg Documented by: Amlodipine Besylate (Amlodipine 10 Mg Tablet) 10 mg PO DAILY [facility] Last Admin: 10/20/20 09:52 Dose: 10 mg Documented by: Aspirin (Aspirin 81 Mg [facility].Chew) [facility] Last Admin: 10/20/20 09:50 Dose: 81 mg Documented by: Atorvastatin Calcium (Atorvastatin Calcium 10 Mg Tablet) 10 mg PO QHS [facility] Last Admin: 10/19/20 21:23 Dose: 10 mg Documented by: Bumetanide (Bumetanide 0.5 Mg Tablet) 1 mg PO DAILY [facility] Last Admin: 10/20/20 09:51 Dose: 1 mg Documented by: Escitalopram Oxalate (Escitalopram Oxalate 10 Mg Tablet) 10 mg PO DAILY [facility] Last Admin: 10/20/20 09:53 Dose: 10 mg Documented by: Gabapentin (Gabapentin 100 Mg Capsule) 200 mg PO BIDCM [facility] Last Admin: 10/20/20 09:49 Dose: 200 mg Documented by: Heparin Sodium (Porcine) (Heparin Injection (Vial) 5,000 Unit/Ml Vial) 5,000 unit SC Q8 [facility] Last Admin: 10/20/20 06:18 Dose: Not Given Documented by: Sodium Chloride () 250 mls @ 15 mls/hr IV .[id number] PRN PRN Reason: Saline Flush Sodium Chloride () 250 mls @ 15 mls/hr IV .[id number] PRN PRN Reason: Additional IVPB Infusion Insulin Glargine (Insulin Glargine 100 Units/Ml Pen) 10 units SC BID [facility] Last Admin: 10/20/20 09:55 Dose: 10 units Documented by: Insulin Human Lispro (Insulin Lispro 100 Unit/Ml Insuln.Pen) 0 unit SC ACHS [facility]; Protocol Last Admin: 10/20/20 09:48 Dose: Not Given Documented by: Insulin Human Lispro (Insulin Lispro 100 Unit/Ml Insuln.Pen) 5 unit SC TIDCM [facility] Last Admin: 10/20/20 09:56 Dose: 5 units Documented by: Isosorbide Mononitrate (Isosorbide Mononitrate 30 Mg Tablet) 30 mg PO DAILY [facility] Last Admin: 10/20/20 09:51 Dose: 30 mg Documented by: Lacosamide (Lacosamide 100 Mg Tablet) 100 mg PO DAILY [facility] Last Admin: 10/20/20 10:08 Dose: 100 mg Documented by: Lorazepam (Lorazepam 2 Mg/Ml Syringe) 2 mg IV PRN PRN PRN Reason: for seizure Nystatin (Nystatin Powder 15gm Bottle) 1 applic TOPICAL BID [facility]; Protocol Last Admin: 10/20/20 09:53 Dose: 1 applic Documented by: Ondansetron HCl (Ondansetron 4 Mg/2 Ml Vial) 4 mg IV Q8H PRN PRN PRN Reason: NAUSEA/VOMITING Senna/Docusate Sodium (Senna/Docusate Sodium 1 Tablet) 2 tablet PO BID PRN PRN PRN Reason: Constipation Sodium Chloride (0.9% Saline Lock 10 Ml Syringe) 10 - 40 ml IV UD PRN PRN Reason: SALINE FLUSH Last Admin: 10/17/20 07:45 Dose: 10 ml Documented by: Trazodone HCl (Trazodone 50 Mg Tablet) 25 mg PO QHS [facility] Last Admin: 10/19/20 21:23 Dose: 25 mg Documented by: Medical Necessity - Tobacco Use Smoking Status: Former smoker Assessment/Plan All Active Problems Shortness of breath (Acute) Debility (Acute) Vascular catheter fitting or adjustment (Acute) CHF (congestive heart failure) (Acute) 1. Acute on CKD Stage 4. Creatinine improved to 2.4 with baseline 2.0. Underlying diabetic nephropathy with 24h urine CRCL 20cc/min last admit. Diuresing well on lasix iv. Discharge on oral bumex 1mg bid. Will arrange IUF only at chronic center qMon, for anasarca. Continue to monitor renal fxn.with weekly creatinine. 2. Diastolic CHF Change to oral bumex 1mg bid with IUF only 2x/wk at chronic center 3. DM2 pcp mgmt 4. Anasarca with hypoalbuminemia improved edema from lasix drip, IUF treatment #2 today 5. iron def anemia hgb 8.1g. continue iv iron load DW YUMIKO, case mgmt
--- NOTE | 2020-10-20 11:59 | DS.PCM_ITS ---
<Alrfed Liang - Last Filed: 10/20/20 11:59> Discharge Date and Diagnosis - Problem List Patient Problems: Active and Suspected Problems Shortness of breath (Acute) Debility (Acute) Vascular catheter fitting or adjustment (Acute) CHF (congestive heart failure) (Acute) Date of Admission: 10/15/20 Date of Discharge: 10/20/20 - Primary Discharge Diagnosis Acute Problems: Active Problems Shortness of breath (Acute) Debility (Acute) Vascular catheter fitting or adjustment (Acute) CHF (congestive heart failure) (Acute) - Secondary Discharge Diagnosis Chronic Problems: Chronic Problems Thrombocytopenia (Chronic) Seizure disorder (Chronic) CKD (chronic kidney disease) stage 4, GFR 15-29 ml/min (Chronic) Iron deficiency anemia (Chronic) Coronary artery disease (Chronic) Depression (Chronic) Bipolar disorder (Chronic) Multiple personality disorder (Chronic) Restless legs syndrome (Chronic) Rheumatoid arthritis (Chronic) Generalized anxiety disorder (Chronic) ELENITA on CPAP (Chronic) COPD (chronic obstructive pulmonary disease) (Chronic) Peripheral neuropathy (Chronic) Esophageal reflux (Chronic) Personal history of Methicillin resistant Staphylococcus aureus infection (Chronic) Obesity (Chronic) Hypertension (Chronic) Diabetes type 2, uncontrolled (Chronic) Hyperlipidemia (Chronic) Cerebrovascular disease (Chronic) Status post acute ischemic stroke No residual deficit Hospital Course and Treatment Operations: None Summary of Care Provided: Patient is a 74-year-old female who presented to the ED on 10/13/2020 with a chief complaint of increased weight gain, shortness of breath and increased swelling. Patient was admitted for diagnoses noted below. During her admission patient was dialyzed twice via tunneled dialysis catheter. A total of 45 pounds of fluid have removed from the patient since time of admission; current weight 219 lbs. Patient is following with wheel worker Dr. Christine Steward as an outpatient; Dr. Steward recommends ultrafiltration twice a week as an outpatient. Bumex 1 mg p.o. twice daily also initiated at discharge. Today repeat patient reports significant improvement from admission, especially since initiating dialysis 2 days ago. Patient currently reports no shortness of breath and no longer feels fluid overloaded. My physical exam demonstrates the same. Patient to be discharged today back to [facility]. 1) Acute on chronic CHF with preserved ejection fraction with anasarca Treatment complicated by CKD stage IV. Palliative care has been consulted and has agreed to follow-up with patient once he is discharged. Bumex 1 mg p.o. twice daily initiated at discharge. Patient will receive ultrafiltration twice a week at [facility] in [place], per nephrology. 2) CKD stage IV Received 2 dialysis treatments over the length of admission, current weight 219 pounds Creatinine continuing to improve from admission; currently 2.40. Ultrafiltration as above. Continue to follow with wheel worker Dr. Steward as an outpatient. 3) DM2 Lantus adjusted on 10/16/2020 due to hypoglycemia, decreased to 10 units twice daily. POC glucose today 91. 4) ELENITA Continue CPAP 5) COPD Continue albuterol aerosol as needed 6) Hypertension Stable, continue amlodipine and metoprolol. Continue to hold lisinopril. 7) Hyperlipidemia Continue statin. 8) history of CVA Continue aspirin and statin. 9) Bipolar disorder/depression Continue on Lexapro. 10) Anemia of chronic disease Stable. 11) Seizure disorder Continue Vimpat. Patient seen by Alfred Liang PA-C, under the supervision of Dr. Negrete. Patient Problems: Active and Suspected Problems Shortness of breath (Acute) Debility (Acute) Vascular catheter fitting or adjustment (Acute) CHF (congestive heart failure) (Acute) Subjective: Patient is a 74-year-old female who is resting comfortably in bed, alert and orient x3. Patient reports resolution of her shortness of breath and congestion and feels much better from admission. Patient reports she is strong enough to go back to [facility], however she does feel that she would benefit from continued physical therapy as she notes that she has a little bit of trouble getting out of the chair. Denies chest pain, shortness of breath, palpitations, fever, chills, N/V/D. Objective: Clinical Impression(s) from Imaging Studies Chest X-Ray 10/13/20 16:03 IMPRESSION: Moderate right pleural effusion. Basilar infiltrate cannot be excluded. Left lower lobe scarring and possible retrocardiac infiltrate. Electronically Signed: Tao Simpson DO at 17:33 EDT Tel [phone], Service support , Chest X-Ray 10/17/20 09:00 IMPRESSION: 1. Right jugular hemodialysis catheter without pneumothorax. 2. Decreased hilar vascular prominence when compared to prior study. Electronically Signed: Wicho Del Angel DO at 9:45 EDT Tel [phone], Service support , Chest X-Ray 10/17/20 20:00 IMPRESSION: No change from earlier today. Electronically Signed: Colton Lee MD at 6:17 EDT Tel , Service support , - Physical Exam Vitals/I&O's: Vital Signs Temp Pulse Resp BP Pulse Ox 97.5 F L 72 16 131/55 H 96 10/20/20 08:30 10/20/20 08:30 10/20/20 08:30 10/20/20 08:30 10/20/20 08:30 Oxygen Flow Rate (L/min) 2 Oxygen Delivery Method Nasal Cannula Weight: 219 lb 2.232 oz Body Mass Index (BMI) 50.8 Finger Stick Blood Glucose 410 Intake and Output for Last 24 Hours 10/18/20 10/19/20 10/20/20 23:59 23:59 23:59 Intake Total 1003.2 / 1003.2 750 / 870 180 / 180 Output Total 3950 / 3950 3450 / 4150 1700 / 1700 Balance -2946.8 / -2946.8 -2700 / -3280 -1520 / -1520 General: Alert, Oriented x3, Cooperative HEENT: Atraumatic, PERRLA, EOMI, Normocephalic Neck: Supple, No JVD, Negative Carotid Bruits Lungs: Normal air movement, Diminished - Diminished breath sounds at baseline Cardiovascular: Regular rate, No murmurs Abdomen: Bowel Sounds Present, Soft, Non Tender Extremities: No edema, Capillary Refill Less than 3 Seconds Skin: No rashes, No breakdown Musculoskeletal: No Tenderness to Palpation of Joints or Extremities Neurological: Cranial nerves II-XII grossly intact Psych/Mental Status: Normal Affect, Appropriate Laboratory Results 10/19/20 17:04: POC Glucose 133 H 10/19/20 21:20: POC Glucose 182 H 10/20/20 05:50: Sodium 134 L, Potassium 5.7 H, Chloride 96 L, Carbon Dioxide 34.0 H, Anion Gap 4 L, BUN 77 H, Creatinine 2.40 H, Estim Creat Clear Calc 14.77, Est GFR (MDRD) Af Amer 25 L, Est GFR (MDRD) Non-Af 21 L, BUN/Creatinine Ratio 32.1 H, Glucose 104, Calcium 8.8, Magnesium 1.8 10/20/20 05:50: WBC 3.9 L, RBC 2.54 L, Hgb 8.1 L, Hct 26.2 L, MCV 103.1 H, MCH 31.9, MCHC 30.9 L, RDW Std Deviation 57.1 H, RDW Coeff of Kusum 15.4 H, Plt Count 74 L, MPV 11.4, Immature Gran % (Auto) 0.300, Neut % (Auto) 56.4, Lymph % (Auto) 24.1, [place] % (Auto) 15.0 H, Eos % (Auto) 3.4, Baso % (Auto) 0.8, Absolute Neuts (auto) 2.2, Absolute Lymphs (auto) 0.93, Nucleated RBC % 0 10/20/20 09:50: Potassium 4.5 Current Medications Acetaminophen (Acetaminophen 325 Mg Tablet) 650 mg PO Q6H PRN PRN PRN Reason: Pain Score 1-10/Temp > 100.7 F Last Admin: 10/18/20 21:27 Dose: 650 mg Documented by: Amlodipine Besylate (Amlodipine 10 Mg Tablet) 10 mg PO DAILY [facility] Last Admin: 10/20/20 09:52 Dose: 10 mg Documented by: Aspirin (Aspirin 81 Mg Tab.Chew) 81 mg [facility] Last Admin: 10/20/20 09:50 Dose: 81 mg Documented by: Atorvastatin Calcium (Atorvastatin Calcium 10 Mg Tablet) 10 mg PO QHS [facility] Last Admin: 10/19/20 21:23 Dose: 10 mg Documented by: Bumetanide (Bumetanide 0.5 Mg Tablet) 1 mg PO DAILY [facility] Last Admin: 10/20/20 09:51 Dose: 1 mg Documented by: Escitalopram Oxalate (Escitalopram Oxalate 10 Mg Tablet) 10 mg PO DAILY [facility] Last Admin: 10/20/20 09:53 Dose: 10 mg Documented by: Gabapentin (Gabapentin 100 Mg Capsule) 200 mg PO [facility]ID[facility] Last Admin: 10/20/20 09:49 Dose: 200 mg Documented by: Heparin Sodium (Porcine) (Heparin Injection (Vial) 5,000 Unit/Ml Vial) 5,000 unit SC Q8 [facility] Last Admin: 10/20/20 06:18 Dose: Not Given Documented by: Sodium Chloride () 250 mls @ 15 mls/hr IV .[id number] PRN PRN Reason: Saline Flush Sodium Chloride () 250 mls @ 15 mls/hr IV .[id number] PRN PRN Reason: Additional IVPB Infusion Insulin Glargine (Insulin Glargine 100 Units/Ml Pen) 10 units SC BID [facility] Last Admin: 10/20/20 09:55 Dose: 10 units Documented by: Insulin Human Lispro (Insulin Lispro 100 Unit/Ml Insuln.Pen) 0 unit SC ACHS [facility]; Protocol Last Admin: 10/20/20 09:48 Dose: Not Given Documented by: Insulin Human Lispro (Insulin Lispro 100 Unit/Ml Insuln.Pen) 5 unit SC TIDCM [facility] Last Admin: 10/20/20 09:56 Dose: 5 units Documented by: Isosorbide Mononitrate (Isosorbide Mononitrate 30 Mg Tablet) 30 mg PO DAILY [facility] Last Admin: 10/20/20 09:51 Dose: 30 mg Documented by: Lacosamide (Lacosamide 100 Mg Tablet) 100 mg PO DAILY [facility] Last Admin: 10/20/20 10:08 Dose: 100 mg Documented by: Lorazepam (Lorazepam 2 Mg/Ml Syringe) 2 mg IV PRN PRN PRN Reason: for seizure Nystatin (Nystatin Powder 15gm Bottle) 1 applic TOPICAL BID [facility]; Protocol Last Admin: 10/20/20 09:53 Dose: 1 applic Documented by: Ondansetron HCl (Ondansetron 4 Mg/2 Ml Vial) 4 mg IV Q8H PRN PRN PRN Reason: NAUSEA/VOMITING Senna/Docusate Sodium (Senna/Docusate Sodium 1 Tablet) 2 tablet PO BID PRN PRN PRN Reason: Constipation Sodium Chloride (0.9% Saline Lock 10 Ml Syringe) 10 - 40 ml IV UD PRN PRN Reason: SALINE FLUSH Last Admin: 10/17/20 07:45 Dose: 10 ml Documented by: Trazodone HCl (Trazodone 50 Mg Tablet) 25 mg PO QHS [facility] Last Admin: 10/19/20 21:23 Dose: 25 mg Documented by: Discharge Diet: Renal Diet Discharge Activity: Return to Normal Activity Home Medications: Medications to take at Discharge Insulin Lispro [Humalog KwikPen] 5 unit SUBCUT TIDCM 06/10/19 traZODone [Desyrel] 25 mg PO QHS 06/29/19 Atorvastatin Calcium [Lipitor] 10 mg PO QHS 09/06/19 Ergocalciferol [Vitamin D] 50,000 unit PO KELLOGG 09/06/19 Gabapentin [Neurontin] 200 mg PO BID #0 09/06/19 Escitalopram Oxalate [Lexapro] 10 mg PO DAILY 05/05/20 Amlodipine Besylate [Norvasc] 10 mg PO DAILY 09/29/20 Aspirin 81 mg PO DAILY 09/29/20 Lacosamide [Vimpat] 100 mg PO DAILY 09/29/20 Acetaminophen [Tylenol] 650 mg PO Q4H PRN 10/13/20 Insulin Glargine,Hum.rec.anlog [Basaglar Kwikpen U-100] 16 unit SQ BID 10/13/20 Isosorbide Mononitrate [Isosorbide Mononitrate ER] 30 mg PO DAILY 10/13/20 Lisinopril [Zestril] 10 mg PO DAILY 10/13/20 Metoprolol Succinate 75 mg PO DAILY 10/13/20 Bumetanide [Bumex] 1 mg PO BID #120 tab 10/20/20 Following Prescriptions Were Given to Patient: Bumetanide [Bumex] 1 mg PO BID #120 tab Transmission Status: Received by [facility]/pharmacy #[id number] Primary Care Physician: Bailey Toribio MD [Primary Care Provider] - Please follow up with your Primary Care Physician in: Within the next 2 weeks Please Follow Up With: Dr. Christine Steward - Integrated Log[employer] Programs Director When: Within the next week Disposition: Senior Living facility Minutes spent on discharge:: 35 Patient Condition:: Stable Medical Necessity - Tobacco Use Smoking Status: Former smoker Meaningful Use Info Meaningful Use Diagnoses (Choose all that apply): None applicable <Man Negrete - Last Filed: 10/20/20 13:27> Discharge Date and Diagnosis - Primary Discharge Diagnosis Acute Problems: Active Problems Shortness of breath (Acute) Debility (Acute) Vascular catheter fitting or adjustment (Acute) CHF (congestive heart failure) (Acute) - Secondary Discharge Diagnosis Chronic Problems: Chronic Problems Thrombocytopenia (Chronic) Seizure disorder (Chronic) CKD (chronic kidney disease) stage 4, GFR 15-29 ml/min (Chronic) Iron deficiency anemia (Chronic) Coronary artery disease (Chronic) Depression (Chronic) Bipolar disorder (Chronic) Multiple personality disorder (Chronic) Restless legs syndrome (Chronic) Rheumatoid arthritis (Chronic) Generalized anxiety disorder (Chronic) ELENITA on CPAP (Chronic) COPD (chronic obstructive pulmonary disease) (Chronic) Peripheral neuropathy (Chronic) Esophageal reflux (Chronic) Personal history of Methicillin resistant Staphylococcus aureus infection (Chronic) Obesity (Chronic) Hypertension (Chronic) Diabetes type 2, uncontrolled (Chronic) Hyperlipidemia (Chronic) Cerebrovascular disease (Chronic) Status post acute ischemic stroke No residual deficit Hospital Course and Treatment Summary of Care Provided: This patient was seen in conjunction with Alfred Liang PA-C. I have i ndependently interviewed and examined the patient and reviewed pertinent historical, laboratory, and other data. Please refer to Alfred Liang PA-C's note for details of this patient's presentation, findings, and recommendations. I have reviewed Alfred Liang PA-C's note and concur with documented findings. In brief, patient is a 74-year-old lady with chronic kidney disease stage IV congestive heart failure with preserved ejection fraction who presented with progressive shortness of breath and anasarca patient underwent temporary dialysis catheter placement with initiation of dialysis Assessment: 1. Acute on chronic congestive heart failure with preserved ejection fraction 2. Chronic kidney disease stage IV with initiation of dialysis 3. Diabetes mellitus type 2 4. Obstructive sleep apnea 5. Essential tension 6. COPD 7. Dyslipidemia 8. GERD 9. Obesity with BMI of 45 10. Anemia of chronic disorder 11. Bipolar disorder 12. History of CVA 13. Seizure disorder 14. DVT prophylaxis - Physical Exam Vitals/I&O's: Vital Signs Temp Pulse Resp BP Pulse Ox 97.6 F L 74 14 139/58 H 96 10/20/20 13:00 10/20/20 13:00 10/20/20 13:00 10/20/20 13:00 10/20/20 13:00 Oxygen Flow Rate (L/min) 2 Oxygen Delivery Method Nasal Cannula Weight: 99.4 kg Body Mass Index (BMI) 50.8 Finger Stick Blood Glucose 410 Intake and Output for Last 24 Hours 10/18/20 10/19/20 10/20/20 23:59 23:59 23:59 Intake Total 1003.2 / 1003.2 750 / 870 180 / 180 Output Total 3950 / 3950 3450 / 4150 2100 / 2100 Balance -2946.8 / -2946.8 -2700 / -3280 -1920 / -1920 Laboratory Results 10/19/20 17:04: POC Glucose 133 H 10/19/20 21:20: POC Glucose 182 H 10/20/20 05:50: Sodium 134 L, Potassium 5.7 H, Chloride 96 L, Carbon Dioxide 34.0 H, Anion Gap 4 L, BUN 77 H, Creatinine 2.40 H, Estim Creat Clear Calc 14.77, Est GFR (MDRD) Af Amer 25 L, Est GFR (MDRD) Non-Af 21 L, BUN/Creatinine Ratio 32.1 H, Glucose 104, Calcium 8.8, Magnesium 1.8 10/20/20 05:50: WBC 3.9 L, RBC 2.54 L, Hgb 8.1 L, Hct 26.2 L, MCV 103.1 H, MCH 31.9, MCHC 30.9 L, RDW Std Deviation 57.1 H, RDW Coeff of Kusum 15.4 H, Plt Count 74 L, MPV 11.4, Immature Gran % (Auto) 0.300, Neut % (Auto) 56.4, Lymph % (Auto) 24.1, [place] % (Auto) 15.0 H, Eos % (Auto) 3.4, Baso % (Auto) 0.8, Absolute Neuts (auto) 2.2, Absolute Lymphs (auto) 0.93, Nucleated RBC % 0 10/20/20 09:50: Potassium 4.5 10/20/20 12:38: POC Glucose 153 H Current Medications Acetaminophen (Acetaminophen 325 Mg Tablet) 650 mg PO Q6H PRN PRN PRN Reason: Pain Score 1-10/Temp > 100.7 F Last Admin: 10/18/20 21:27 Dose: 650 mg Documented by: Amlodipine Besylate (Amlodipine 10 Mg Tablet) 10 mg PO DAILY [facility] Last Admin: 10/20/20 09:52 Dose: 10 mg Documented by: Aspirin (Aspirin 81 Mg Tab.Chew) 81 mg [facility] Last Admin: 10/20/20 09:50 Dose: 81 mg Documented by: Atorvastatin Calcium (Atorvastatin Calcium 10 Mg Tablet) 10 mg PO QHS [facility] Last Admin: 10/19/20 21:23 Dose: 10 mg Documented by: Bumetanide (Bumetanide 0.5 Mg Tablet) 1 mg PO DAILY [facility] Last Admin: 10/20/20 09:51 Dose: 1 mg Documented by: Escitalopram Oxalate (Escitalopram Oxalate 10 Mg Tablet) 10 mg PO DAILY [facility] Last Admin: 10/20/20 09:53 Dose: 10 mg Documented by: Gabapentin (Gabapentin 100 Mg Capsule) 200 mg [facility] Last Admin: 10/20/20 09:49 Dose: 200 mg Documented by: Heparin Sodium (Porcine) (Heparin Injection (Vial) 5,000 Unit/Ml Vial) 5,000 unit SC Q8 [facility] Last Admin: 10/20/20 06:18 Dose: Not Given Documented by: Sodium Chloride () 250 mls @ 15 mls/hr IV .[id number] PRN PRN Reason: Saline Flush Sodium Chloride () 250 mls @ 15 mls/hr IV .[id number] PRN PRN Reason: Additional IVPB Infusion Insulin Glargine (Insulin Glargine 100 Units/Ml Pen) 10 units SC BID [facility] Last Admin: 10/20/20 09:55 Dose: 10 units Documented by: Insulin Human Lispro (Insulin Lispro 100 Unit/Ml Insuln.Pen) 0 unit SC ACHS [facility]; Protocol Last Admin: 10/20/20 12:45 Dose: 1 units Documented by: Insulin Human Lispro (Insulin Lispro 100 Unit/Ml Insuln.Pen) 5 unit SC TIDCM [facility] Last Admin: 10/20/20 12:46 Dose: 5 units Documented by: Isosorbide Mononitrate (Isosorbide Mononitrate 30 Mg Tablet) 30 mg PO DAILY [facility] Last Admin: 10/20/20 09:51 Dose: 30 mg Documented by: Lacosamide (Lacosamide 100 Mg Tablet) 100 mg PO DAILY [facility] Last Admin: 10/20/20 10:08 Dose: 100 mg Documented by: Lorazepam (Lorazepam 2 Mg/Ml Syringe) 2 mg IV PRN PRN PRN Reason: for seizure Nystatin (Nystatin Powder 15gm Bottle) 1 applic TOPICAL BID [facility]; Protocol Last Admin: 10/20/20 09:53 Dose: 1 applic Documented by: Ondansetron HCl (Ondansetron 4 Mg/2 Ml Vial) 4 mg IV Q8H PRN PRN PRN Reason: NAUSEA/VOMITING Senna/Docusate Sodium (Senna/Docusate Sodium 1 Tablet) 2 tablet PO BID PRN PRN PRN Reason: Constipation Sodium Chloride (0.9% Saline Lock 10 Ml Syringe) 10 - 40 ml IV UD PRN PRN Reason: SALINE FLUSH Last Admin: 10/17/20 07:45 Dose: 10 ml Documented by: Trazodone HCl (Trazodone 50 Mg Tablet) 25 mg PO QHS [facility] Last Admin: 10/19/20 21:23 Dose: 25 mg Documented by: Inpatient E&M: [id number] Disch Hosp
[2020-10-20 12:41] LABS: Bedside Glucose 153 mg/dL (70-110)
--- NOTE | 2020-10-20 12:57 | CASEMGMT ---
Dr Steward saw patient. Patient will be going Mondays and 11:20 for ultrafiltration. ANNIE arranged for patient to get picked up at via cot. SW notified patient, her , rim fire charger operator, RN, and Valentina at [facility]. ANNIE also let Valentina at [facility] know patient's schedule for ultrafiltration. Plan: d/c back to [facility] under skilled level of care. Physicians transported patient via cot. Katelynn ANDRADE
--- NOTE | 2020-10-20 12:58 | NURSING ---
Student nurse documentation reviewed.
== END 2020-10-20 14:00 | disposition skilled nursing facility (03) | DRG 291 ==
LOC: ED 16:39 → PCU 16:56
PROVIDERS: Hospitalist; Internal Medicine; Internal Medicine Nephrology; Nurse Practitioner Family; Physician Assistant; Surgery; Admitting Provider Hospitalist; Emergency Provider Emergency Medicine; PCP Internal Medicine; Visit Provider Internal Medicine
PROC: 0JH63XZ Insertion of Tunneled Vascular Access Device into Chest Subcutaneous Tissue and Fascia, Percutaneous Approach (ICD-10-PCS; principal; 2020-10-17 07:45)
DX: I13.0 Hypertensive heart and chronic kidney disease with heart failure and stage 1 through stage 4 chronic kidney disease, or unspecified chronic kidney disease (principal); I50.33 Acute on chronic diastolic (congestive) heart failure; Z68.43 Body mass index [BMI] 50.0-59.9, adult; N18.4 Chronic kidney disease, stage 4 (severe); J96.11 Chronic respiratory failure with hypoxia; E87.1 Hypo-osmolality and hyponatremia; N17.9 Acute kidney failure, unspecified; E88.09 Other disorders of plasma-protein metabolism, not elsewhere classified; E11.22 Type 2 diabetes mellitus with diabetic chronic kidney disease; E11.65 Type 2 diabetes mellitus with hyperglycemia; E11.649 Type 2 diabetes mellitus with hypoglycemia without coma; D63.8 Anemia in other chronic diseases classified elsewhere; G40.909 Epilepsy, unspecified, not intractable, without status epilepticus; I25.10 Atherosclerotic heart disease of native coronary artery without angina pectoris; J44.9 Chronic obstructive pulmonary disease, unspecified; E11.42 Type 2 diabetes mellitus with diabetic polyneuropathy; Z20.822 Contact with and (suspected) exposure to COVID-19; E78.5 Hyperlipidemia, unspecified; G25.81 Restless legs syndrome; M06.9 Rheumatoid arthritis, unspecified; K21.9 Gastro-esophageal reflux disease without esophagitis; F44.81 Dissociative identity disorder; F31.9 Bipolar disorder, unspecified; F41.1 Generalized anxiety disorder; G47.33 Obstructive sleep apnea (adult) (pediatric); E66.01 Morbid (severe) obesity due to excess calories; Z79.4 Long term (current) use of insulin; Z79.82 Long term (current) use of aspirin; Z79.899 Other long term (current) drug therapy; Z86.73 Personal history of transient ischemic attack (TIA), and cerebral infarction without residual deficits; Z87.891 Personal history of nicotine dependence; Z86.14 Personal history of Methicillin resistant Staphylococcus aureus infection
CPT/HCPCS: 36415; 71045; 76000; 80048; 80053; 80069; 82550; 82962; 83540; 83550; 83735; 83880; 84132; 84146; 84484; 85025; 85027; 85610; 87426; 90937; 93005; 97110; 97162; 97166; 97530; 97535; 97802; 97803; 99251; 99285; J7030; A4216; C1750; G0257; G0463; J1940; J2916

== ENCOUNTER → 2020-10-29 12:57 | Outpatient (CLI) | payer SELFPAY ==
[2020-10-13 17:33] VITALS: BMI 50.8
[2020-10-29 13:15] LABS: POSITIVE COUNT YES; Platelet Count 76 K/mm3 (150-450)
== END ==
PROVIDERS: PCP Internal Medicine; Referring Provider Internal Medicine Nephrology; Visit Provider Internal Medicine Nephrology
DX: D69.6 Thrombocytopenia, unspecified (principal)
CPT/HCPCS: 85049

== ENCOUNTER → 2020-12-16 12:33 | Outpatient (CLI) | payer MEDICARE, MEDICAID, SELFPAY ==
[2020-10-13 17:33] VITALS: BMI 50.8
[2020-12-16 09:32] VITALS: BMI 37.0
--- NOTE | 2020-12-16 12:38 | VDUE_ITS ---
Reason For Study: Pre op testing Right Arm Left Arm Right Cephalic Vein at the wrist measures Unable to visualize cephalic vein at wrist 0.20 x 0.21 cm. due to vessel size and tortuosity. Right Cephalic Vein in the forearm measures Left Cephalic Vein in the forearm measures 0.19 x 0.22 cm. 0.18 x 0.18 cm. Right Cephalic Vein below antecub measures Left Cephalic Vein below antecub measures 0.26 x 0.28 cm. 0.26 x 0.27 cm. Right Cephalic Vein above antecub measures Left Cephalic Vein above antecub measures 0.15 x 0.15 cm. 0.22 x 0.24 cm. Right Cephalic Vein mid bicep measures 0.15 Left Cephalic Vein at mid bicep measures 0.24 x 0.15 cm. x 0.26 cm. Right Cephalic Vein at the shoulder measures Left Cephalic Vein at the shoulder measures 0.11 x 0.13 cm. 0.24 x 0.25 cm. Right Basilic Vein at the origin measures Basilic vein at origin measures 0.35 x 0.36 0.34 x 0.34 cm. cm. Right Basilic Vein mid bicep measures 0.20 x Basilic vein at bicep measures 0.24 x 0.23 0.22 cm. cm. Right Basilic Vein above antecub measures Basilic vein above antecub measures 0.29 x 0.19 x 0.17 cm. 0.28 cm. Right Brachial artery measures 0.36 x 0.36 Left Brachial artery measures 0.36 x 0.35 cm cm with a velocity of 103.4 cm/sec. with a velocity of 115.6 cm/sec. Right Radial artery measures 0.17 x 0.20 cm Left Radial artert measures 0.18 x 0.17 cm with a velocity of 74.4 cm/sec. with a velocity of 83.3 cm/sec. VL/Saphenous Vein Mapping, Bilat Interpretation Summary Patent and compressible right upper extremity cephalic and basilic veins with d imensions as noted. Cephalic vein appears to be small throughout. Left upper extremity unable to visualize cephalic vein at rest due to diminutiv e size. The remainder of the cephalic and basilic vein appear to be patent and compressible. Bilateral radial arteries small but patent. Bilateral brachial arteries with normal diameter and flow Ordering Physician: Dinesh Polanco Referring Physician: Bailey Toribio Performed By: Monet Holcomb RVT and Student ?
== END ==
PROVIDERS: PCP Internal Medicine; Referring Provider Surgery; Visit Provider Surgery
DX: Z01.818 Encounter for other preprocedural examination (principal); N18.4 Chronic kidney disease, stage 4 (severe)
CPT/HCPCS: 93970; 93985

== ENCOUNTER → 2021-01-18 12:08 | Outpatient (CLI) | payer MEDICARE, MEDICAID, SELFPAY ==
[2021-01-18 11:53] VITALS: BMI 50.8
--- NOTE | 2021-01-18 12:12 | CT_ITS ---
STUDY: CT ABDOMEN AND PELVIS WITHOUT CONTRAST REASON FOR EXAM: Female, 75 years old. GROSS HEMATURIA. Left flank and groin pain. RADIATION DOSAGE (If Supplied By Facility): CTDIvol = ( 22.46 ) mGy, DLP = ( 1099.64 ) mGycm TECHNIQUE: Transaxial images were obtained from the dome of the diaphragm to the symphysis pubis without oral contrast, and without intravenous contrast. Sagittal and coronal images were reconstructed. Individualized dose optimization techniques were used for this CT. COMPARISON: Comparison is made with prior study dated 08/17/2020. FINDINGS: Stable small right pleural effusion with right basilar atelectasis and/or infiltrate. Coronary artery calcification. Normal liver. There are surgical clips in the gallbladder fossa consistent with a prior cholecystectomy. There are multiple benign calcified granulomata of the spleen. Normal pancreas. Normal bilateral adrenal glands. Normal right kidney. Normal left kidney. Normal visualized stomach. Normal small intestine. There are multiple colonic diverticula consistent with diverticulosis. There are surgical clips in the region of the appendix consistent with a prior appendectomy. There is diffuse atherosclerotic calcification of the abdominal aorta and its major visceral branches, without a demonstrated aneurysm. Normal inferior vena cava. There is borderline retroperitoneal lymphadenopathy with enlarged nodes no greater than 10mm in the short axis diameter. Normal urinary bladder. There is absence of the uterus consistent with a prior hysterectomy. Small amount of fluid is seen in the cul-de-sac. Patient status post bilateral tubal ligation. 1 significant, there is diffuse increased markings in the subcutaneous fat involving the visualized abdominal and pelvic wall. There is overlying skin thickening. There is also evidence of the skin thickening of both breasts with the increased markings in the breast tissue. Stable small benign appearing bilateral inguinal lymph nodes. There are diffuse degenerative changes of the visualized lumbar spine. Stable grade 1 anterior listhesis of L5 on S1 with spondylolysis of the pars interarticularis of the L5 vertebrae. CT/Abdomen/Pelvis without Cont IMPRESSION: Diffuse subcutaneous edema with skin thickening knee as described. Stable right pleural effusion with right basilar infiltration and/or atelectasis. Small amount of free fluid is seen in the cul-de-sac. Electronically Signed: Baljeet Chen MD at 12:56 EDT , Service support ,
== END ==
PROVIDERS: PCP Internal Medicine; Referring Provider Nurse Practitioner Adult Health; Visit Provider Nurse Practitioner Adult Health
DX: R31.0 Gross hematuria (principal); R10.9 Unspecified abdominal pain
CPT/HCPCS: 74176

== ENCOUNTER 2021-01-20 18:24 | Emergency (ER) | payer MEDICARE, MEDICAID, SELFPAY ==
[2021-01-18 11:53] VITALS: BMI 50.8
[2021-01-20 18:24] VITALS: BP 150/65; PULSE 60; RESP 16; TEMP 36.5; O2SAT 98; BMI 39.0
--- NOTE | 2021-01-20 19:11 | CT_ITS ---
HISTORY: trauma TECHNIQUE: Multiple axial images were obtained of the brain without intravenous contrast. A radiation dose optimization technique was used for this scan. IV Contrast dosage and agent: None. COMPARISON: 09/29/20 FINDINGS: # of images incl. paperwork: [id number] PARANASAL SINUSES AND MASTOID AIR CELLS: Clear. INTRACRANIAL HEMORRHAGE: None. BRAIN PARENCHYMA: No CT evidence of stroke. No intracranial masses. There is preservation of the dimas/white matter interface. Posterior fossa structures are unremarkable. There is hypoattenuation of the periventricular white matter. Chronic involutional changes are noted. CSF SPACES: Appropriate for age. There is no hydrocephalus. MASS EFFECT: None. CALVARIUM: No acute fracture. Right frontal cephalhematoma. CT/Brain/Head without Contrast IMPRESSION: Chronic involutional and white matter changes. No acute intracranial process. Individualized dose optimization techniques were used for this CT. at 2000 Reported and signed by: Clay Schaffer MD Electronically Signed: Clay Schaffer MD at 19:59 EDT Tel , Service support ,
--- NOTE | 2021-01-20 19:11 | EKG12_ITS ---
Test Reason : DYSRHYTHMIA Blood Pressure : / mmHG Vent. Rate : 058 BPM Atrial Rate : 058 BPM P-R Int : 156 ms QRS Dur : 096 ms QT Int : 462 ms P-R-T Axes : 012 082 040 degrees QTc Int : 453 ms Sinus bradycardia Low voltage QRS Nonspecific T wave abnormality Septal NV, age undetermined, cannot be excluded Abnormal ECG Confirmed by ANGELA BOWMAN, SANTHOSH ([id number]), editor school photograph RADHA TAPIA ([id number]) on 01/22/2021 10:13:21 AM Referred By: JULITO Confirmed By:SANTHOSH MILLER MD
--- NOTE | 2021-01-20 19:11 | CT_ITS ---
HISTORY: trauma EXAMINATION: CT Maxillofacial W/O Contrast Injection TECHNIQUE: Helically acquired images were obtained of the facial bones. A radiation dose optimization technique was used for this scan. IV Contrast dosage and agent: COMPARISON: Noncontrast head CT same date. FINDINGS: SOFT TISSUES: Right periorbital soft tissue edema with right frontal cephalhematoma. No discrete fluid collections. VISUALIZED PARANASAL SINUSES: Minimal mucoperiosteal disease right sphenoid air cell. VISUALIZED MASTOID AIR CELLS: Clear. FACIAL BONES, MANDIBLE AND TMJs: No displaced facial bone fracture. No lytic or blastic abnormality. VISUALIZED DENTITION: No periodontal osseous erosion. ORBITAL CONTENTS: Both globes, extraocular muscles and retrobulbar fat appear unremarkable. CT/Sinus/Facial Bone IMPRESSION: No acute bony abnormality. Individualized dose optimization techniques were used for this CT. at 2031 Reported and signed by: Clay Schaffer MD Electronically Signed: Clay Schaffer MD at 20:30 EDT Tel , Service support ,
--- NOTE | 2021-01-20 19:11 | CT_ITS ---
HISTORY: fall/trauma TECHNIQUE: Helically acquired images were obtained of the chest, abdomen and pelvis. A radiation dose optimization technique was used for this scan. IV Contrast dosage and agent: None. Oral contrast: None. COMPARISON: Chest CT 02/23/20, abdomen and pelvis CT 01/19/20 FINDINGS: ----Chest: LUNGS, PLEURA AND LARGE AIRWAYS: Moderate volume right pleural effusion with trace left pleural effusion. Left lower lobe consolidation. No pneumothorax. THYROID: No thyroid lesions. HEART AND PERICARDIUM: Heart size is normal. No pericardial effusion. VESSELS: Thoracic aorta is not dilated. MEDIASTINUM AND IVAN: No mediastinal or hilar adenopathy. Esophagus is unremarkable. No hiatal hernia. BONES: No acute or aggressive abnormality. Stable, extensive lower chest wall anasarca with skin thickening. ----Abdomen/Pelvis: LIVER: Homogeneous. No focal mass. GALLBLADDER AND BILIARY TREE: Cholecystectomy. No intra- or extrahepatic biliary ductal dilation. PANCREAS: No focal cystic or solid mass. SPLEEN: Normal size without focal cystic or solid mass. ADRENAL GLANDS: No nodules. KIDNEYS AND URETERS: Normal renal size and position. No hydronephrosis or nephrolithiasis. PERITONEUM: No ascites or free air. No other fluid collection. BOWEL: No evidence of acute appendicitis. No stomach or bowel distension. No focal inflammatory bowel changes. LYMPH NODES: No enlarged mesenteric or retroperitoneal lymph nodes. VESSELS: Aorta is non-dilated. URINARY BLADDER: Unremarkable. REPRODUCTIVE ORGANS: No pelvic masses. Uterus absent. ABDOMINAL WALL: Stable diffuse body wall anasarca. BONES: No acute or aggressive abnormality. CT/CT Chest, Abd, Pelvis WO Cont IMPRESSION: Bilateral pleural effusions with right lower lobe consolidation, atelectatic versus infectious. No acute findings in the abdomen or pelvis. Stable diffuse body wall anasarca. Individualized dose optimization techniques were used for this CT. at 2022 Reported and signed by: Clay Schaffer MD Electronically Signed: Clay Schaffer MD at 20:22 EDT Tel , Service support ,
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
--- NOTE | 2021-01-20 19:27 | CT_ITS ---
HISTORY: trauma EXAMINATION: CT Spine Cervical W/O Contrast Injection TECHNIQUE: Helically acquired images were obtained of the cervical spine. 2D reformatted images were reviewed. A radiation dose optimization technique was used for this scan. IV Contrast dosage and agent: None. COMPARISON: 05/05/20 FINDINGS: VERTEBRAE: No fracture or traumatic subluxation. No discrete lytic or blastic abnormality observed. Normal alignment. Normal craniocervical junction and cervicothoracic junction. DISCS and SPINAL CANAL: Disc heights are preserved. No critical stenosis. NECK SOFT TISSUES: No prevertebral soft tissue swelling. There is no cervical adenopathy. LUNG APICES: Right pleural effusion. CT/Spine Cervical without Contras IMPRESSION: No evidence of acute cervical spinal fracture. Individualized dose optimization techniques were used for this CT. at 1959 Reported and signed by: Clay Schaffer MD Electronically Signed: Clay Schaffer MD at 19:57 EDT Tel , Service support ,
--- NOTE | 2021-01-20 19:32 | RAD_ITS ---
HISTORY: Trauma, injury EXAMINATION/TECHNIQUE: XR Tibia/Fibula 2 Views: COMPARISON: None FINDINGS: BONES/JOINTS: No acute fracture or dislocation. Chondrocalcinosis with moderate degenerative narrowing of the knee joint spaces. No sclerotic or destructive changes observed. SOFT TISSUES: No soft tissue swelling or gas. No radiopaque foreign body. RAD/Tibia & Fibula 2 Views IMPRESSION: No acute bony abnormality. at 2033 Reported and signed by: Clay Schaffer MD Electronically Signed: Clay Schaffer MD at 20:31 EDT Tel , Service support ,
[2021-01-20 20:00] LABS: Absolute Lymphocyte Count 0.74 X10^3/uL (0.83-4.51); Absolute Neutrophil Count 3.9 X10^3/uL (2.0-7.7); Basophil# 0.04 X10^3/uL; Basophil% 0.7 % (0-1); Eosinophils% 1.8 % (0-5); Hematocrit 35.5 % (37-47); Hemoglobin 11.2 g/dL (12.0-15.0); Lymphocyte # 0.74 X10^3/ul (0.83-4.51); Lymphocyte % 13.5 % (19-41); Mean Corp Hgb Conc 31.5 g/dL (32-36); Mean Corpuscular Hgb 33.3 pg (27.0-32.0); Mean Corpuscular Volume 105.7 fL (81-99); Mean Platelet Vol. 11.5 fl (6.2-12.0); Monocyte# 0.68 X10^3/uL; Monocyte% 12.4 % (0-10); NRBC Flagged by Analyzer 0 % (0-5); Neutrophil # 3.91 X10^3/uL (2.7-7.7); Neutrophil % 71.1 % (47-70); POSITIVE COUNT YES; Platelet Count 64 K/mm3 (150-450); RBC Distribution Width CV 15.3 % (11.6-14.6); RBC Distribution Width SD 59.6 fl (35.1-43.9); Red Blood Count 3.36 M/mm3 (4.2-5.4); White Blood Count 5.5 K/mm3 (4.4-11.0)
[2021-01-20] MEDS: fentaNYL 100 MCG/2 ML Ampul 75 MCG IV (20:01)
[2021-01-20 20:03] LABS: Differential Indicated SCAN CRITERIA MET
[2021-01-20 20:18] LABS: Anion Gap 8 (5-15); BUN 34 mg/dL (7-18); BUN/Creat Ratio 12.8 RATIO (10-20); Calcium,Total 8.5 mg/dL (8.5-10.1); Chloride 97 mmol/L (98-107); Creatinine, Serum 2.65 mg/dL (0.55-1.02); EST Glomerular Filtration Rate 19 mL/min (>60); Est Glom Filt Rate - Afr Amer 23 mL/min (>60); Estimated Creatinine Clearance 13.18 ml/min; Glucose 284 mg/dL (74-106); Potassium 4.6 mmol/L (3.5-5.1); Sodium Level 131 mmol/L (136-145)
[2021-01-20 20:31] LABS: Differential Comment SCANNED; Platelet Estimate MOD DEC (ADEQ)
[2021-01-20 23:26] VITALS: BP 128/69; PULSE 60; RESP 16; O2SAT 96
== END 2021-01-20 23:27 | disposition home or self-care (01) ==
PROVIDERS: Emergency Provider Emergency Medicine; PCP Internal Medicine
DX: S00.83XA Contusion of other part of head, initial encounter (principal); S30.1XXA Contusion of abdominal wall, initial encounter; S20.219A Contusion of unspecified front wall of thorax, initial encounter; S80.811A Abrasion, right lower leg, initial encounter; S00.81XA Abrasion of other part of head, initial encounter; H11.31 Conjunctival hemorrhage, right eye; W13.3XXA Fall through floor, initial encounter; Y93.9 Activity, unspecified; Y92.9 Unspecified place or not applicable; Y99.9 Unspecified external cause status; I13.0 Hypertensive heart and chronic kidney disease with heart failure and stage 1 through stage 4 chronic kidney disease, or unspecified chronic kidney disease; I50.32 Chronic diastolic (congestive) heart failure; E11.22 Type 2 diabetes mellitus with diabetic chronic kidney disease; I50.82 Biventricular heart failure; N18.4 Chronic kidney disease, stage 4 (severe); J44.9 Chronic obstructive pulmonary disease, unspecified; D50.9 Iron deficiency anemia, unspecified; E11.40 Type 2 diabetes mellitus with diabetic neuropathy, unspecified; E11.65 Type 2 diabetes mellitus with hyperglycemia; M06.9 Rheumatoid arthritis, unspecified; I27.21 Secondary pulmonary arterial hypertension; G40.909 Epilepsy, unspecified, not intractable, without status epilepticus; E78.5 Hyperlipidemia, unspecified; K21.9 Gastro-esophageal reflux disease without esophagitis; G47.33 Obstructive sleep apnea (adult) (pediatric); F41.1 Generalized anxiety disorder; F31.9 Bipolar disorder, unspecified; E66.01 Morbid (severe) obesity due to excess calories; Z68.41 Body mass index [BMI] 40.0-44.9, adult; Z79.4 Long term (current) use of insulin; Z79.82 Long term (current) use of aspirin; Z87.891 Personal history of nicotine dependence; Z86.14 Personal history of Methicillin resistant Staphylococcus aureus infection; Z86.73 Personal history of transient ischemic attack (TIA), and cerebral infarction without residual deficits
CPT/HCPCS: 70450; 70486; 71250; 72125; 73590; 74176; 80048; 85025; 93005; 96361; 96374; 99285; J7050; A4216

== ENCOUNTER 2021-01-25 17:07 | Emergency (ER) | payer MEDICARE, MEDICAID, SELFPAY ==
[2021-01-25 17:08] VITALS: BP 144/63; PULSE 63; RESP 18; TEMP 36.2; O2SAT 96; BMI 37.7
--- NOTE | 2021-01-25 18:19 | CT_ITS ---
EXAM: CT HEAD WITHOUT INTRAVENOUS CONTRAST : 1945 CLINICAL INDICATION: HEADACHE,FALL TECHNIQUE: Multiple axial images were obtained of the head without intravenous contrast. This CT exam was performed using one or more of the following dose reduction techniques: automated exposure control, adjustment of the mA and/or kV according to patient size, and/or use of iterative reconstruction technique. This report was created using [employer] report generation technology. COMPARISON: 01/20/2021 FINDINGS: BRAIN AND EXTRA-AXIAL SPACES: The ventricular system and cortical sulci are at the upper limits of normal in size. There is hypoattenuation in the periventricular white matter. No intra- or extra-axial hemorrhage. No evidence of acute infarct. No intracranial mass or mass effect. There is preservation of the dimas/white matter interface. Posterior fossa structures are unremarkable. Basal cisterns are patent. BONES/JOINTS: Unremarkable. No discrete lytic or blastic abnormalities. SOFT TISSUES: There is a scalp hematoma over the right frontal bone. SINUSES: Unremarkable as visualized. Clear. MASTOID AIR CELLS: Unremarkable. Clear. ORBITS: Visualized globes, extraocular muscles, optic nerves and retrobulbar fat appear unremarkable. CT/Brain/Head without Contrast IMPRESSION: No acute intracranial abnormality. There has been no significant change from the reference exam. Individualized dose optimization techniques were used for this CT. at 1848 Reported and signed by: Ronnie Funes MD Electronically Signed: Ronnie Funes MD at 18:47 EDT Tel , Service support ,
[2021-01-25 18:56] VITALS: BP 159/66; PULSE 60; RESP 21; O2SAT 97
[2021-01-25 20:00] VITALS: BP 160/75; PULSE 60; RESP 16; O2SAT 97
[2021-01-25 20:35] LABS: Absolute Lymphocyte Count 0.86 X10^3/uL (0.83-4.51); Basophil# 0.04 X10^3/uL; Basophil% 0.9 % (0-1); Eosinophil# 0.13 X10^3/uL; Eosinophils% 2.8 % (0-5); Hematocrit 33.7 % (37-47); Hemoglobin 10.8 g/dL (12.0-15.0); Lymphocyte # 0.86 X10^3/ul (0.83-4.51); Lymphocyte % 18.4 % (19-41); Mean Corpuscular Hgb 33.4 pg (27.0-32.0); Mean Corpuscular Volume 104.3 fL (81-99); Mean Platelet Vol. 12.4 fl (6.2-12.0); Monocyte# 0.61 X10^3/uL; NRBC Flagged by Analyzer 0 % (0-5); Neutrophil # 3.03 X10^3/uL (2.7-7.7); Neutrophil % 64.7 % (47-70); POSITIVE COUNT YES; RBC Distribution Width CV 14.9 % (11.6-14.6); RBC Distribution Width SD 57.7 fl (35.1-43.9); Red Blood Count 3.23 M/mm3 (4.2-5.4); White Blood Count 4.7 K/mm3 (4.4-11.0)
[2021-01-25 20:40] LABS: Differential Indicated SCAN CRITERIA MET
[2021-01-25 20:41] LABS: Platelet Count 43 K/mm3 (150-450)
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
[2021-01-25] MEDS: Smz/Tmp Ds Tablet 1 TABLET PO (21:10)
[2021-01-25 21:12] LABS: Anion Gap 6 (5-15); BUN 34 mg/dL (7-18); Calcium,Total 8.8 mg/dL (8.5-10.1); Chloride 95 mmol/L (98-107); Creatinine, Serum 2.26 mg/dL (0.55-1.02); EST Glomerular Filtration Rate 22 mL/min (>60); Est Glom Filt Rate - Afr Amer 27 mL/min (>60); Estimated Creatinine Clearance 15.45 ml/min; Glucose 454 mg/dL (74-106); Potassium 4.2 mmol/L (3.5-5.1); Sodium Level 131 mmol/L (136-145)
[2021-01-25 22:00] VITALS: RESP 17
[2021-01-25] MEDS: Insulin Lispro 100 UNIT/ML INSULN.PEN 15 UNIT SC (22:10)
[2021-01-25 22:48] VITALS: BP 144/71; PULSE 60; RESP 18; O2SAT 99
[2021-01-26 12:17] LABS: Pathologist Review Reviewed
== END 2021-01-25 22:48 | disposition home or self-care (01) ==
PROVIDERS: Emergency Provider Emergency Medicine; PCP Internal Medicine
DX: S00.83XA Contusion of other part of head, initial encounter (principal); S10.93XA Contusion of unspecified part of neck, initial encounter; H11.31 Conjunctival hemorrhage, right eye; S80.811A Abrasion, right lower leg, initial encounter; W19.XXXA Unspecified fall, initial encounter; Y93.9 Activity, unspecified; Y92.9 Unspecified place or not applicable; Y99.9 Unspecified external cause status; E11.65 Type 2 diabetes mellitus with hyperglycemia; D69.6 Thrombocytopenia, unspecified; I13.0 Hypertensive heart and chronic kidney disease with heart failure and stage 1 through stage 4 chronic kidney disease, or unspecified chronic kidney disease; I50.32 Chronic diastolic (congestive) heart failure; I50.82 Biventricular heart failure; E11.22 Type 2 diabetes mellitus with diabetic chronic kidney disease; N18.4 Chronic kidney disease, stage 4 (severe); E11.42 Type 2 diabetes mellitus with diabetic polyneuropathy; I27.21 Secondary pulmonary arterial hypertension; G40.909 Epilepsy, unspecified, not intractable, without status epilepticus; D50.9 Iron deficiency anemia, unspecified; M06.9 Rheumatoid arthritis, unspecified; E78.5 Hyperlipidemia, unspecified; J44.9 Chronic obstructive pulmonary disease, unspecified; K21.9 Gastro-esophageal reflux disease without esophagitis; G47.33 Obstructive sleep apnea (adult) (pediatric); F44.81 Dissociative identity disorder; F31.9 Bipolar disorder, unspecified; F41.1 Generalized anxiety disorder; E66.01 Morbid (severe) obesity due to excess calories; Z68.41 Body mass index [BMI] 40.0-44.9, adult; Z99.2 Dependence on renal dialysis; Z79.82 Long term (current) use of aspirin; Z79.4 Long term (current) use of insulin; Z79.899 Other long term (current) drug therapy; Z86.73 Personal history of transient ischemic attack (TIA), and cerebral infarction without residual deficits; Z87.891 Personal history of nicotine dependence; Z86.14 Personal history of Methicillin resistant Staphylococcus aureus infection
CPT/HCPCS: 70450; 80048; 85025; 99282

== ENCOUNTER 2021-02-10 08:07 | Outpatient (RCR) | payer MEDICARE, MEDICAID, SELFPAY ==
[2021-02-10 08:26] VITALS: BP 165/52; PULSE 165; RESP 18; TEMP 36.9; BMI 38.7
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
== END 2021-03-02 23:59 ==
LOC: WC 08:07
PROVIDERS: PCP Internal Medicine; Visit Provider Nurse Practitioner
DX: S81.801A Unspecified open wound, right lower leg, initial encounter (principal); W17.2XXA Fall into hole, initial encounter; Y93.9 Activity, unspecified; Y92.9 Unspecified place or not applicable; Y99.9 Unspecified external cause status; I13.0 Hypertensive heart and chronic kidney disease with heart failure and stage 1 through stage 4 chronic kidney disease, or unspecified chronic kidney disease; E11.22 Type 2 diabetes mellitus with diabetic chronic kidney disease; N18.4 Chronic kidney disease, stage 4 (severe); I50.32 Chronic diastolic (congestive) heart failure; I50.82 Biventricular heart failure; J44.9 Chronic obstructive pulmonary disease, unspecified; E11.42 Type 2 diabetes mellitus with diabetic polyneuropathy; E11.65 Type 2 diabetes mellitus with hyperglycemia; I27.21 Secondary pulmonary arterial hypertension; G40.909 Epilepsy, unspecified, not intractable, without status epilepticus; M06.9 Rheumatoid arthritis, unspecified; G25.81 Restless legs syndrome; E78.5 Hyperlipidemia, unspecified; G47.33 Obstructive sleep apnea (adult) (pediatric); F44.81 Dissociative identity disorder; F31.9 Bipolar disorder, unspecified; F41.1 Generalized anxiety disorder; E66.01 Morbid (severe) obesity due to excess calories; Z68.41 Body mass index [BMI] 40.0-44.9, adult; Z79.82 Long term (current) use of aspirin; Z79.4 Long term (current) use of insulin; Z79.899 Other long term (current) drug therapy; Z99.2 Dependence on renal dialysis; Z86.73 Personal history of transient ischemic attack (TIA), and cerebral infarction without residual deficits; Z86.14 Personal history of Methicillin resistant Staphylococcus aureus infection; Z87.891 Personal history of nicotine dependence
CPT/HCPCS: 11042; 99213; G0463

== ENCOUNTER 2021-02-12 20:45 | Inpatient (IN) | payer MEDICARE, MEDICAID, SELFPAY ==
[2021-02-12 20:46] VITALS: BP 184/87; PULSE 74; RESP 24; TEMP 36.6; O2SAT 97; BMI 41.8
--- NOTE | 2021-02-12 21:05 | EKG12_ITS ---
Test Reason : CP Blood Pressure : / mmHG Vent. Rate : 075 BPM Atrial Rate : 075 BPM P-R Int : 148 ms QRS Dur : 090 ms QT Int : 394 ms P-R-T Axes : 023 085 003 degrees QTc Int : 439 ms Normal sinus rhythm Low voltage QRS Borderline ECG Confirmed by DUTCH BOWMAN, ANTONIA ([id number]), purchase request editor RADHA TAPIA ([id number]) on 02/16/2021 9:46:02 AM Referred By: ALDAIR Confirmed By:ANTONIA JUDD MD
[2021-02-12 21:32] LABS: Absolute Lymphocyte Count 0.41 X10^3/uL (0.83-4.51); Absolute Neutrophil Count 1.7 X10^3/uL (2.0-7.7); Basophil# 0.01 X10^3/uL; Basophil% 0.4 % (0-1); Hematocrit 36.6 % (37-47); Hemoglobin 11.7 g/dL (12.0-15.0); Lymphocyte # 0.41 X10^3/ul (0.83-4.51); Lymphocyte % 15.8 % (19-41); Mean Corpuscular Hgb 33.7 pg (27.0-32.0); Mean Corpuscular Volume 105.5 fL (81-99); Mean Platelet Vol. 11.5 fl (6.2-12.0); Monocyte# 0.45 X10^3/uL; Monocyte% 17.4 % (0-10); NRBC Flagged by Analyzer 0 % (0-5); Neutrophil % 65.6 % (47-70); POSITIVE COUNT YES; POSITIVE DIFFERENTIAL YES; RBC Distribution Width CV 14.7 % (11.6-14.6); RBC Distribution Width SD 57.5 fl (35.1-43.9); Red Blood Count 3.47 M/mm3 (4.2-5.4); White Blood Count 2.6 K/mm3 (4.4-11.0)
--- NOTE | 2021-02-12 21:32 | RAD_ITS ---
INDICATION: chest pain EXAMINATION/TECHNIQUE: X-RAY - XR Chest 1 View COMPARISON: CT chest 01/20/2021 FINDINGS: LINES/DEVICES: Right, internal jugular, dual-lumen central venous catheter with the tip projecting over the distal superior vena cava. No pneumothorax. LUNGS: Obscuration right hemidiaphragm with overlying airspace opacity likely representing right pleural effusion with overlying airspace disease; atelectasis versus less likely alveolar filling process. MEDIASTINUM AND CARDIOVASCULAR STRUCTURES: Large cardiomediastinal silhouette with mild pulmonary vascular congestion. Moderate atherosclerotic calcifications thoracic aortic arch. BONES AND SOFT TISSUES: Chronic senescent changes. RAD/Chest 1 View (Portable) IMPRESSION: Right pleural effusion with overlying airspace disease likely representing atelectasis. Dual-lumen right IJ central venous catheter with tip projecting over the superior vena cava. Mild cardiomegaly and pulmonary vascular congestion. Electronically Signed: Berry Craft DO at 21:53 EDT Tel , Service support ,
[2021-02-12 21:51] VITALS: BP 189/93; PULSE 74; RESP 16; O2SAT 95
[2021-02-12 22:03] VITALS: BP 180/82; PULSE 77; RESP 24; O2SAT 93
[2021-02-12 22:09] LABS: Anion Gap 6 (5-15); BUN 29 mg/dL (7-18); BUN/Creat Ratio 14.6 RATIO (10-20); Calcium,Total 8.4 mg/dL (8.5-10.1); Chloride 89 mmol/L (98-107); Creatinine, Serum 1.98 mg/dL (0.55-1.02); EST Glomerular Filtration Rate 26 mL/min (>60); Est Glom Filt Rate - Afr Amer 32 mL/min (>60); Estimated Creatinine Clearance 17.63 ml/min; Glucose 592 mg/dL (74-106); Potassium 4.2 mmol/L (3.5-5.1); Sodium Level 126 mmol/L (136-145)
[2021-02-12 22:18] LABS: Differential Indicated SCAN CRITERIA MET; Platelet Count 44 K/mm3 (150-450)
[2021-02-12 22:19] LABS: Anisocytosis 1+; Macrocytosis 1+; Platelet Estimate MKD DEC (ADEQ); Red Cell Morphology N CHROM NORMAL (NORM C&C)
[2021-02-12 23:34] VITALS: BP 131/101; PULSE 78; RESP 18; O2SAT 96
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
[2021-02-13] VITALS (24 sets, daily range): BP systolic 129–181; BP diastolic 48–86; PULSE 64–86; RESP 16–28; TEMP 36.7–37.7; O2SAT 91–100; BMI 39.2
[2021-02-13] MEDS: Furosemide 40 MG/4 ML Vial IV ×4 (00:10→23:19)
[2021-02-13] MEDS: dexAMETHasone 4 MG Tablet 6 MG PO ×2 (00:10→23:21)
[2021-02-13] MEDS: Insulin Lispro 100 UNIT/ML INSULN.PEN 14 UNIT SC (00:10)
--- NOTE | 2021-02-13 00:33 | ED.RN ---
patient complaining of abdominal pain and unable to urinate. dr. wiley at bedside. verbal order to straight cath patient obtained. patient had 1,000 ml of urine out with straight cath.
[2021-02-13 01:26] LABS: Magnesium 1.7 mg/dL (1.6-2.6)
--- NOTE | 2021-02-13 01:38 | EKG12_ITS ---
Test Reason : CP ADMIT Blood Pressure : / mmHG Vent. Rate : 072 BPM Atrial Rate : 072 BPM P-R Int : 156 ms QRS Dur : 080 ms QT Int : 382 ms P-R-T Axes : 004 093 041 degrees QTc Int : 418 ms Normal sinus rhythm Low voltage QRS Septal infarct , age undetermined , cannot be excluded Abnormal ECG Confirmed by ANGELA BOWMAN, SANTHOSH ([id number]), manuscript editor RADHA TAPIA ([id number]) on 02/17/2021 10:59:15 AM Referred By: DR PEREZ Confirmed By:SANTHOSH MILLER MD
[2021-02-13 02:32] LABS: CPK Total, Creatine Kinase 78 U/L (26-192)
--- NOTE | 2021-02-13 03:23 | NURSING ---
IT was reported that patient was a talking a little with staff while being transferred on the unit, upon admission process and assessment, patient was not answering questions and would'nt open her eyes without stimulation. Her spo2 was 93 percent on room air, at this time her spo2 are at 92 percent on 4.5 L and she sleeps through lab draws, BGT and will not awaken enough to take oral bp meds. Dr. Blanton notified and it was decided to transfer to ICU.
[2021-02-13 03:41] LABS: Bedside Glucose 469 mg/dL (70-110)
[2021-02-13] MEDS: Lisinopril 10 MG Tablet PO (03:44)
[2021-02-13] MEDS: Metoprolol(XL)Succ 25 MG Tablet PO ×2 (03:44→23:19)
[2021-02-13] MEDS: Isosorbide Mononitrate 30 MG Tablet PO (03:45)
[2021-02-13] MEDS: Insulin Lispro 100 UNIT/ML INSULN.PEN 17 UNIT SC (04:03)
[2021-02-13] MEDS: Ipratropium/Albuterol Sulfate 3 ML AMPUL.NEB INHALATION ×5 (04:09→19:28)
[2021-02-13] MEDS: 0.9% Saline Lock 10 ML Syringe IV ×2 (04:29→11:43)
[2021-02-13 04:35] LABS: Allen Test Positive; Base Excess 4 mmol/L (-2 to +2); Bicarbonate 27.9 mmol/L (22-26); Blood Gas Specimen Type ART; O2 Delivery Device Cannula; PO2 92 mmHG (75-100); SITE L Radial; SO2 97 % (95-99); Total Carbon Dioxide 29 mmol/L; pH 7.43 (7.35-7.45)
[2021-02-13 06:00] LABS: Probe Check PASS; SARSInt. QC ok ND; Specimen Processing Control PASS
[2021-02-13] MEDS: Insulin Lispro 100 UNIT/ML INSULN.PEN SC ×4 (06:56→23:22)
[2021-02-13 07:21] LABS: Bedside Glucose 429 mg/dL (70-110)
[2021-02-13 09:24] LABS: International Normalized Ratio 1.2; Prothrombin Time (Protime)PT. 14.3 SECONDS (11.7-14.9)
[2021-02-13 09:25] LABS: Fibrinogen 363 mg/dl (203-444)
[2021-02-13 09:39] LABS: Troponin-I HS 23.8 pg/mL (3.0-53.7)
[2021-02-13 09:47] LABS: ALB/GLOB Ratio 0.6 RATIO (0.9-2.4); AST(SGOT) 32 U/L (15-37); Alanine Aminotransfer ALT/SGPT 25 U/L (13-56); Albumin, Serum 2.4 g/dL (3.2-5.0); Alkaline Phosphatase 78 U/L (45-117); Anion Gap 7 (5-15); BUN 31 mg/dL (7-18); BUN/Creat Ratio 16.4 RATIO (10-20); Calcium,Total 8.4 mg/dL (8.5-10.1); Chloride 94 mmol/L (98-107); Creatinine, Serum 1.89 mg/dL (0.55-1.02); EST Glomerular Filtration Rate 28 mL/min (>60); Est Glom Filt Rate - Afr Amer 33 mL/min (>60); Estimated Creatinine Clearance 18.47 ml/min; Globulin 3.9 g/dL (2.2-4.2); Glucose 348 mg/dL (74-106); Phosphorus 3.1 mg/dL (2.5-4.9); Potassium 3.6 mmol/L (3.5-5.1); Protein, Total 6.3 g/dL (6.4-8.2); Sodium Level 129 mmol/L (136-145)
[2021-02-13 09:51] LABS: Bedside Glucose 342 mg/dL (70-110)
[2021-02-13 09:58] LABS: Lactic Acid 2.7 mmol/L (0.4-1.9)
[2021-02-13] MEDS: Insulin Lispro 100 UNIT/ML INSULN.PEN 18 UNIT SC ×2 (11:40→17:32)
[2021-02-13 12:18] LABS: Procalcitonin 0.28 ng/mL (0.00-0.09)
[2021-02-13 13:11] LABS: Reflex Lactate? Y
[2021-02-13 13:53] LABS: Hematocrit 33.8 % (37-47); Mean Corp Hgb Conc 32.5 g/dL (32-36); Mean Corpuscular Hgb 33.7 pg (27.0-32.0); Mean Corpuscular Volume 103.7 fL (81-99); Mean Platelet Vol. 11.4 fl (6.2-12.0); POSITIVE COUNT YES; POSITIVE DIFFERENTIAL YES; Platelet Count 55 K/mm3 (150-450); RBC Distribution Width CV 14.1 % (11.6-14.6); RBC Distribution Width SD 54.7 fl (35.1-43.9); Red Blood Count 3.26 M/mm3 (4.2-5.4); Scan Indicated on CBC? Y/N YES- FLAGS NOTED; White Blood Count 1.8 K/mm3 (4.4-11.0)
[2021-02-13 14:20] LABS: Lactic Acid 3.1 mmol/L (0.4-1.9)
--- NOTE | 2021-02-13 14:50 | NURSING ---
Call placed to dialysis nurse to verify time of dialysis today. rip saw operator stated that pt will be running this afternoon.
--- NOTE | 2021-02-13 15:20 | PN.HOSP_ITS ---
Subjective Subjective Patient is a 75 y/o female with an extensive PMH as outlined who was admitted with a complaint of chest pressure for 2 days, with associated shortness of breath. CXR showed vascular congestion. She was admitted and being managed for acute on chronic heart failure with preserved EF. Patient was seen and examined this morning. She was drowsy and not really answering questions. Unable to do comprehensive review of systems on account of patient's drowsiness. He has remained hemodynamically stable. Objective Data Objective Data Vital Signs: Vital Signs Temp Pulse Resp BP Pulse Ox 98.1 F 66 16 151/59 H 100 02/13/21 09:15 02/13/21 09:15 02/13/21 09:15 02/13/21 09:15 02/13/21 14:33 Oxygen Flow Rate (L/min) 4 Oxygen Delivery Method Nasal Cannula Weight: 200 lb 13.458 oz Body Mass Index (BMI) 39.2 Intake & Output: Intake and Output for Last 24 Hours 02/11/21 02/12/21 02/13/21 23:59 23:59 23:59 Intake Total 150 / 150 Balance 150 / 150 Medical Nutrition Assessment Dietitian: Nutrition Therapy Diagnosis Start: 02/13/21 13:38 Freq: Status: Active Protocol: Document 02/13/21 13:50 AG (Rec: 02/13/21 13:50 AG [id number]) Nutrition Malnutrition Evidence of Malnutrition Exists No Intake Problem Inadequate Oral Intake Etiology r/t altered mental status Signs/Symptoms as evidenced by no PO intake since admission Status Active Problem Recommendation Dietitian Recommendations/Changes Cardiac, 1800 calorie controlled diet and Glucerna 120mL 4x/day. If PO intake at meals is poor, will consider liberalizing diet. Daily wts. Lab / Micro Data Result Diagrams: 02/13/21 09:00 02/13/21 09:00 Labs: Laboratory Results - last 24 hr 02/12/21 21:06: WBC 2.6 L, RBC 3.47 L, Hgb 11.7 L, Hct 36.6 L, MCV 105.5 H, MCH 33.7 H, MCHC 32.0, RDW Std Deviation 57.5 H, RDW Coeff of Kusum 14.7 H, Plt Count 44 L*, MPV 11.5, Immature Gran % (Auto) 0.800, Neut % (Auto) 65.6, Lymph % (Auto) 15.8 L, Austin % (Auto) 17.4 H, Eos % (Auto) 0.0, Baso % (Auto) 0.4, Absolu te Neuts (auto) 1.7 L, Absolute Lymphs (auto) 0.41 L, Nucleated RBC % 0, Diff Path Review October sukhjinder, Platelet Estimate MKD DEC, RBC Morphology N CHROM, Anisocytosis 1+, Macrocytosis 1+ 02/12/21 21:06: Sodium 126 L, Potassium 4.2, Chloride 89 L, Carbon Dioxide 31.0, Anion Gap 6, BUN 29 H, Creatinine 1.98 H, Estim Creat Clear Calc 17.63, Est GFR (MDRD) Af Amer 32 L, Est GFR (MDRD) Non-Af 26 L, BUN/Creatinine Ratio 14.6, Glucose 592 H*, Calcium 8.4 L, Troponin I High Sens 19.0 02/12/21 21:06: B-Natriuretic Peptide 751.0 H 02/12/21 21:06: Magnesium 1.7 02/12/21 21:06: Total Creatine Kinase 78, C-React Prot Ext Range 46.20 H 02/13/21 03:00: POC Glucose 469 H* 02/13/21 04:20: COVID-19 (HENRY) Detected 02/13/21 06:54: POC Glucose 429 H 02/13/21 09:00: PT 14.3, INR 1.2, Fibrinogen 363 02/13/21 09:00: Lactic Acid 2.7 H* 02/13/21 09:00: Procalcitonin 0.28 H 02/13/21 09:00: WBC 1.8 L, RBC 3.26 L, Hgb 11.0 L, Hct 33.8 L, MCV 103.7 H, MCH 33.7 H, MCHC 32.5, RDW Std Deviation 54.7 H, RDW Coeff of Kusum 14.1, Plt Count 55 L, MPV 11.4, Differential Comment , Diff Path Review October foll 02/13/21 09:00: Sodium 129 L, Potassium 3.6, Chloride 94 L, Carbon Dioxide 28.0, Anion Gap 7, BUN 31 H, Creatinine 1.89 H, Estim Creat Clear Calc 18.47, Est GFR (MDRD) Af Amer 33 L, Est GFR (MDRD) Non-Af 28 L, BUN/Creatinine Ratio 16.4, Glucose 348 H, Calcium 8.4 L, Phosphorus 3.1, Total Bilirubin 0.80, AST 32, ALT 25, Alkaline Phosphatase 78, Total Protein 6.3 L, Albumin 2.4 L, Globulin 3.9, Albumin/Globulin Ratio 0.6 L 02/13/21 09:00: Troponin I High Sens 23.8 02/13/21 09:35: POC Glucose 342 H 02/13/21 13:40: Lactic Acid 3.1 H* Micro: Microbiology 02/12/21 21:45 Mucosa - Nose SARS-CoV-2 Antigen (Rapid) - Final SARS-CoV-2 (COVID 19) ABG Data ABG results: ABG 02/13/21 04:30 Specimen Type ART Sample Site L Radial pH 7.43 Bicarbonate Actual 27.9 H Total CO2 29 Base Excess 4 H O2 Saturation 97 ABG pCO2 42.0 ABG pO2 92 Mike Test Positive O2 Delivery Device Cannula Liter Flow 4.0 Radiography Diagnostic Testing: Radiology Impression Chest X-Ray 02/12/21 21:32 IMPRESSION: Right pleural effusion with overlying airspace disease likely representing atelectasis. Dual-lumen right IJ central venous catheter with tip projecting over the superior vena cava. Mild cardiomegaly and pulmonary vascular congestion. Electronically Signed: Berry Craft DO at 21:53 EDT Tel , Service support , Physical Exam Const alert Orientation / Consciousness: confused and lethargic Exam Limitations: altered mental status HEENT head/scalp atraumatic, moist oral mucous membranes and oropharynx normal Head and Scalp: normocephalic Eyes PERRL, EOMs intact bilaterally and conjunctivae normal Neck no lymphadenopathy and supple Resp Resp Narrative: diminished breath sounds bibasally, no wheezes or crackles. On 4L of oxygen by nasal canula Cardio regular rate, regular rhythm, S1 normal heart sound, S2 normal heart sound and no murmurs GI normal to inspection, nondistended, normoactive bowel sounds, soft to palpation, non-tender and non-distended Extremity normal to inspection, full ROM and no clubbing, cyanosis or edema Peripheral Pulses: Yes pulses 2+ throughout Skin no rashes or lesions noted Neuro Neuro Narrative: drowsy and lethargic Sensorium / Orientation: awake Assessment & Plan Assessment/Plan (1) Acute on chronic heart failure with normal ejection fraction: (2) Shortness of breath: (3) Sinus bradycardia: PLAN: #Acute COVID 19 infection * patient has had the covid vaccine; COVID PCR test was also positive * on decadrone * ID consulted * CXR was more suggestive of heart failure than covid * titrate oxygen to maintain sats >90% * breathing treatment with bronchodilators * start on remdesivir * #Acute on chronic heart failure with preserved EF * being diuresed with IV lasix * 2D echo fr August 2020 showed EF of 555 with severely dilated RV, moderate RV global systolic dysfunction and moderately severe TR * to have dialysis today which will help with fluid removal #ESRD: on hemodialysis. nephrology consulted for dialysis #lactic acidosis * lactic acid was 2.7 on admission, and now up to 3.1. cannot hydrate with IVF due to her being in heart failure. * should improve with dialysis * #Type 2 diabetes mellitus * on ISS. Accuchecks ACHS * #Hyponatremia: Na is 129. this is chronic. Likely due to fluid overload. Should improve with dialysis. #Hypertension: on amlodipine and metoprolol #Hyperlipidemia:on statin. #ELENITA: on CPAP qhs #Pancytopenia * wbc is down to 1.8, from 2.6 on admission. Platelets are 55, from 44 on admission. Thrombocytopenia is chronic. Hb is 11. She has chronic macrocytic anemia. WIll monitor and if leucopenia worsens, will consult hematology. History of CVA: stable #History of seizure disorder:stable. Doesnt appear to be on any seizure meds. #BIpolar disorder: stable. DVT prophylaxis: SCDs. no anticoagulation o/a of thrombocytopenia Charges/Coding Visit Charges Inpatient E&M: 62309 [facility] Hosp L3
[2021-02-13 16:06] LABS: Bedside Glucose 360 mg/dL (70-110)
[2021-02-13 17:02] LABS: Alkaline Phosphatase 77 U/L (45-117)
--- NOTE | 2021-02-13 17:10 | CASEMGMT ---
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 Her extension is: [phone] and states she may be able to be reached there if unable to reach her via her cell. Original Note: RN CM GAS COMBUSTION ENGINEER CM to room to meet with patient for initial transition planning/care coordination assessment. RN CM introduced self and role at [facility] [employer].? Pt sitting up in recliner chair in room. Pt voices understanding and consents to assessment at this time. Pt started answering questions, but then would quickly fall asleep w/multiple attempts of RN CM asking questions. Pt did tell RN KAMILA that her dtr, Ilsa, is her POA, and stated okay for RN CM to call her for assess questions. RNKerrie, aware pt groggy/having difficulty staying awake. Call placed to pt's dtr, Beverly. Some of the following information obtained from pt and the remainder from Beverly. Care providers, pharmacy, and demographics verified/updated at this time. PCP: Dr Toribio Specialists: Dr Steward--coffee maker. Pt gets Dialysis @ [facility] T/TH/S. Chair time @ 1000, Dr Ramirez-cardiology Preferred Pharmacy: [facility] Insurance: [facility] Community Plan Prescription Benefit:? Yes Living Will/HPOA:? Beverly is unsure if pt has done LW. Pt has HCPOA, who is her dtr, Beverly Butler, which is on e-chart @ [facility] [employer] [employer] LNOK: , Maurice. Dtr/POABeverly Living Arrangements: Pt lives w/her in one-story home w/ramp entrances x 2. Pt was independent w/ADL's prior to recent illness. Pt/ share home tasks. Per dtr, pt has a CM, Shellie, who she states she gets through her insurance. She is unsure what agency she is through and states pt has aides @ home 2-3 x's/week. Transportation: . Pt states she uses [facility] for transportation to Dialysis and dr marquez. DME: ?Dtr states pt has the following DME:? BSC, RTS, walker, rollator, W/C, lift chair. She states she used to have a CPAP but they do not know where it is, stating They're not sure where it went when she moved a couple yrs ago. She states pt also has a medical alert button, but pt has not been usin it and she is not sure where it is. Dtr thinks pt has a glucometer and she has an appt 02/18 @ [facility] to get set up w/free-style glucose monitor. She also has/does not use: shower chair. Pt does not have home O2. Dtr states she is unaware of any further DME needs at this time.? HHC/SNF: Pt has been to [facility] and [facility] and has had HHC in the past, but dtr does not remember name of agency. Dtr states she does not think pt will be agreeable to going to a SNF again but may want HHC. CM to follow for home oxygen needs and any further discharge planning/needs.? Dtr voices no further concerns/needs at this time.? PLAN: TBD. Follow PT/OT notes/recommendations and any O2 needs @ d/c. Dtr does not think pt will be agreeable to SNF but states she thinks she would want HHC. Ki WEIRN RN CM
[2021-02-13 17:45] LABS: Bedside Glucose 415 mg/dL (70-110)
--- NOTE | 2021-02-13 22:42 | DIALYSIS ---
HD today 3k tolerated well no issues dressing changed dry and intact uf -2500ml.
[2021-02-13] MEDS: Glucerna Shake 120 ML LIQUID PO (23:18)
[2021-02-13] MEDS: Atorvastatin Calcium 10 MG Tablet PO (23:20)
[2021-02-13] MEDS: traZODone 50 MG Tablet PO (23:20)
[2021-02-13] MEDS: Senna/Docusate Sodium 1 Tablet 2 TABLET PO (23:20)
[2021-02-13 23:56] LABS: Bedside Glucose 225 mg/dL (70-110)
[2021-02-14] VITALS (16 sets, daily range): BP systolic 119–172; BP diastolic 50–60; PULSE 66–73; RESP 16–20; TEMP 36.2–36.8; O2SAT 97–100
[2021-02-14] MEDS: Metoprolol(XL)Succ 25 MG Tablet PO ×3 (06:04→22:10)
[2021-02-14 06:39] LABS: Hematocrit 35.7 % (37-47); Hemoglobin 11.7 g/dL (12.0-15.0); Mean Corp Hgb Conc 32.8 g/dL (32-36); Mean Corpuscular Hgb 33.6 pg (27.0-32.0); Mean Corpuscular Volume 102.6 fL (81-99); Mean Platelet Vol. 12.2 fl (6.2-12.0); POSITIVE COUNT YES; RBC Distribution Width CV 13.9 % (11.6-14.6); RBC Distribution Width SD 52.6 fl (35.1-43.9); Red Blood Count 3.48 M/mm3 (4.2-5.4); White Blood Count 2.9 K/mm3 (4.4-11.0)
[2021-02-14 06:47] LABS: Platelet Count 48 K/mm3 (150-450); Scan Indicated on CBC? Y/N YES- FLAGS NOTED
[2021-02-14 07:25] LABS: ALB/GLOB Ratio 0.7 RATIO (0.9-2.4); AST(SGOT) 43 U/L (15-37); Alanine Aminotransfer ALT/SGPT 31 U/L (13-56); Albumin, Serum 2.5 g/dL (3.2-5.0); Alkaline Phosphatase 80 U/L (45-117); Anion Gap 9 (5-15); BUN 23 mg/dL (7-18); BUN/Creat Ratio 15.4 RATIO (10-20); Calcium,Total 8.4 mg/dL (8.5-10.1); Chloride 95 mmol/L (98-107); Creatinine, Serum 1.49 mg/dL (0.55-1.02); EST Glomerular Filtration Rate 36 mL/min (>60); Est Glom Filt Rate - Afr Amer 44 mL/min (>60); Estimated Creatinine Clearance 23.43 ml/min; Globulin 3.8 g/dL (2.2-4.2); Glucose 275 mg/dL (74-106); Potassium 4.4 mmol/L (3.5-5.1); Protein, Total 6.3 g/dL (6.4-8.2); Sodium Level 130 mmol/L (136-145)
[2021-02-14] MEDS: Ipratropium/Albuterol Sulfate 3 ML AMPUL.NEB INHALATION ×2 (07:33→19:09)
--- NOTE | 2021-02-14 07:36 | PCA ---
charge nurse Yuly had given this PROCESS CONTROL SUPERVISOR 2 capr atkinson. one which wouldnt stay connected to hemlet and the second had ripped where connected to chin. This PROCESS CONTROL SUPERVISOR does not have a n95. Due to lack of correct PPE. this PROCESS CONTROL SUPERVISOR did not physically round on patient, RN and charge notified. RN rounded on pt. PT could also be observed on room camera,
[2021-02-14] MEDS: Insulin Lispro 100 UNIT/ML INSULN.PEN 25 UNIT SC ×2 (09:24→17:36)
[2021-02-14] MEDS: Insulin Lispro 100 UNIT/ML INSULN.PEN SC ×3 (09:24→22:07)
[2021-02-14] MEDS: Isosorbide Mononitrate 30 MG Tablet PO (09:32)
[2021-02-14] MEDS: Escitalopram Oxalate 10 MG Tablet PO (09:32)
[2021-02-14] MEDS: amLODIPine 10 MG Tablet PO (09:32)
[2021-02-14] MEDS: Vitamin B Comp W-C Capsule 1 CAP PO (09:32)
[2021-02-14] MEDS: Furosemide 40 MG/4 ML Vial IV ×2 (09:32→17:27)
[2021-02-14] MEDS: dexAMETHasone 4 MG Tablet 6 MG PO (09:32)
[2021-02-14] MEDS: Ergocalciferol 1.25 MG (50, 000 UNIT) Capsule PO (09:32)
[2021-02-14] MEDS: Lisinopril 10 MG Tablet PO (09:32)
[2021-02-14] MEDS: Senna/Docusate Sodium 1 Tablet 2 TABLET PO (09:32)
[2021-02-14] MEDS: Aspirin 81 MG TAB.CHEW PO (09:33)
--- NOTE | 2021-02-14 09:51 | PN.HOSP_ITS ---
Subjective Subjective Patient seen and examined. She was much more alert today. She did complain of mild shortness of breath but had no other complaints. She was concerned about a superficial ulceration on her right wolfe which was due to mechanical fall a few weeks ago and wanted wound care to review it. I counseled her that wound care already be consulted and will see her tomorrow. She did have dialysis yesterday. She has no other complaints and review of systems otherwise negative. Objective Data Objective Data Vital Signs: Vital Signs Temp Pulse Resp BP Pulse Ox 98.2 F 68 20 H 172/60 H 97 02/14/21 05:30 02/14/21 07:33 02/14/21 07:33 02/14/21 05:30 02/14/21 07:33 Oxygen Flow Rate (L/min) 4 Oxygen Delivery Method Nasal Cannula Weight: 198 lb 13.711 oz Body Mass Index (BMI) 39.2 Intake & Output: Intake and Output for Last 24 Hours 02/12/21 02/13/21 02/14/21 23:59 23:59 23:59 Intake Total 150 / 270 490 / 490 Output Total 600 / 600 Balance -450 / -330 490 / 490 Medical Nutrition Assessment Dietitian: Nutrition Therapy Diagnosis Start: 02/13/21 13:38 Freq: Status: Active Protocol: Document 02/13/21 13:50 AG (Rec: 02/13/21 13:50 AG [id number]) Nutrition Malnutrition Evidence of Malnutrition Exists No Intake Problem Inadequate Oral Intake Etiology r/t altered mental status Signs/Symptoms as evidenced by no PO intake since admission Status Active Problem Recommendation Dietitian Recommendations/Changes Cardiac, 1800 calorie controlled diet and Glucerna 120mL 4x/day. If PO intake at meals is poor, will consider liberalizing diet. Daily wts. Lab / Micro Data Result Diagrams: 02/14/21 06:15 02/14/21 06:15 Labs: Laboratory Results - last 24 hr 02/13/21 09:00: Lactic Acid 2.7 H* 02/13/21 09:00: Procalcitonin 0.28 H 02/13/21 09:00: WBC 1.8 L, RBC 3.26 L, Hgb 11.0 L, Hct 33.8 L, MCV 103.7 H, MCH 33.7 H, MCHC 32.5, RDW Std Deviation 54.7 H, RDW Coeff of Kusum 14.1, Plt Count 55 L, MPV 11.4, Differential Comment , Diff Path Review October02/13/21 09:35: POC Glucose 342 H 02/13/21 11:38: POC Glucose 360 H 02/13/21 13:40: Lactic Acid 3.1 H* 02/13/21 16:36: Alkaline Phosphatase 77 02/13/21 17:29: POC Glucose 415 H 02/13/21 23:17: POC Glucose 225 H 02/14/21 06:15: WBC 2.9 L, RBC 3.48 L, Hgb 11.7 L, Hct 35.7 L, MCV 102.6 H, MCH 33.6 H, MCHC 32.8, RDW Std Deviation 52.6 H, RDW Coeff of Kusum 13.9, Plt Count 48 L*, MPV 12.2 H, Differential Comment 02/14/21 06:15: Sodium 130 L, Potassium 4.4, Chloride 95 L, Carbon Dioxide 26.0, Anion Gap 9, BUN 23 H, Creatinine 1.49 H, Estim Creat Clear Calc 23.43, Est GFR (MDRD) Af Amer 44 L, Est GFR (MDRD) Non-Af 36 L, BUN/Creatinine Ratio 15.4, Glucose 275 H, Calcium 8.4 L, Total Bilirubin 0.80, AST 43 H, ALT 31, Alkaline Phosphatase 80, Total Protein 6.3 L, Albumin 2.5 L, Globulin 3.8, Albumin/Globulin Ratio 0.7 L Micro: Microbiology 02/13/21 17:45 Urine, Clean Catch Legionella Antigen - Final 02/13/21 17:45 Urine, Clean Catch Streptococcus pneumoniae Antigen (M - Final 02/12/21 21:45 Mucosa - Nose SARS-CoV-2 Antigen (Rapid) - Final SARS-CoV-2 (COVID 19) Physical Exam Const alert and oriented x3 Exam Limitations: no limitations HEENT head/scalp atraumatic, moist oral mucous membranes and oropharynx normal Head and Scalp: normocephalic Eyes PERRL, EOMs intact bilaterally and conjunctivae normal Neck no lymphadenopathy and supple Resp Resp Narrative: diminished breath sounds bibasally, no wheezes or crackles. remains on 4L of oxygen by nasal canula Cardio regular rate, regular rhythm, S1 normal heart sound, S2 normal heart sound and no murmurs GI normal to inspection, nondistended, normoactive bowel sounds, soft to palpation, non-tender and non-distended Extremity normal to inspection, full ROM and no clubbing, cyanosis or edema Peripheral Pulses: Yes pulses 2+ throughout Skin Skin Narrative: superificial ulceration with slough in the floor of the ulcer on the right wolfe. Dressing over right wolfe. Very minimal erythema and no tender ness Neuro oriented x3, CN's II-XII intact bilaterally and moves all extremities Sensorium / Orientation: awake and alert Assessment & Plan Assessment/Plan (1) Acute on chronic heart failure with normal ejection fraction: (2) Shortness of breath: (3) Sinus bradycardia: PLAN: #Acute COVID 19 infection * patient has had the covid vaccine; COVID PCR test was also positive * on decadrone and remdesivir * ID consulted; will see patient tomorrow. * on breathing treatment with bronchodilators. * Titrate oxygen to maintain sats >90% * * #Acute on chronic heart failure with preserved EF * being diuresed with IV lasix * 2D echo from August 2020 showed EF of 555 with severely dilated RV, moderate RV global systolic dysfunction and moderately severe TR * had dialysis yesterday which helped with fluid removal * #ESRD: on hemodialysis. nephrology on board. had dialysis yesterday. #lactic acidosis * lactic acid was 2.7 on admission, and now up to 3.1. cannot hydrate with IVF due to her being in heart failure. * should improve with dialysis * #Type 2 diabetes mellitus * on ISS. Accuchecks ACHS * #Hyponatremia: Na is 132 today. this is chronic. Likely due to fluid overload. Should improve with dialysis. #Hypertension: on amlodipine and metoprolol #Hyperlipidemia:on statin. #ELENITA: on CPAP qhs #Pancytopenia * wbc today is up to 2.9, and platelets are 48 today. Platelets are 55, from 44 on admission. Hb is 11. * this is chronic. Will trend. History of CVA: stable #History of seizure disorder:stable. Doesnt appear to be on any seizure meds. #Bipolar disorder: stable. DVT prophylaxis: SCDs. no anticoagulation o/a of thrombocytopenia Charges/Coding Visit Charges Inpatient E&M: 82382 Subs Hosp L2
[2021-02-14 10:06] LABS: Bedside Glucose 306 mg/dL (70-110)
[2021-02-14 13:36] LABS: Bedside Glucose > 500 mg/dL (70-110)
[2021-02-14 13:36] LABS: Bedside Glucose > 500 mg/dL (70-110)
[2021-02-14] MEDS: Insulin Lispro 100 UNIT/ML INSULN.PEN 30 UNIT SC (14:11)
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
[2021-02-14] MEDS: Nystatin Powder 15gm Bottle 1 APPLIC TOPICAL ×2 (15:29→22:11)
[2021-02-14] MEDS: Acetaminophen 325 MG Tablet 650 MG PO (16:08)
[2021-02-14] MEDS: proCHLORPERazine 10 MG/2 ML Vial 5 MG IV (16:10)
[2021-02-14] MEDS: 0.9% Saline Lock 10 ML Syringe IV ×3 (16:10→22:07)
[2021-02-14] MEDS: Insulin Lispro 100 UNIT/ML INSULN.PEN 10 UNIT SC (16:15)
[2021-02-14 17:45] LABS: Bedside Glucose 400 mg/dL (70-110)
[2021-02-14] MEDS: Glucerna Shake 120 ML LIQUID PO (22:07)
[2021-02-14] MEDS: traZODone 50 MG Tablet PO (22:11)
[2021-02-14] MEDS: Atorvastatin Calcium 10 MG Tablet PO (22:11)
[2021-02-14 22:20] LABS: Bedside Glucose 381 mg/dL (70-110)
[2021-02-15] VITALS (10 sets, daily range): BP systolic 124–129; BP diastolic 44–55; PULSE 54–70; RESP 15–21; TEMP 36.3–36.6; O2SAT 95–100
[2021-02-15] MEDS: Metoprolol(XL)Succ 25 MG Tablet PO (06:44)
[2021-02-15] MEDS: Nystatin Powder 15gm Bottle 1 APPLIC TOPICAL (06:44)
[2021-02-15] MEDS: 0.9% Saline Lock 10 ML Syringe IV ×2 (06:44→12:46)
[2021-02-15] MEDS: Ipratropium/Albuterol Sulfate 3 ML AMPUL.NEB INHALATION ×2 (07:25→11:16)
[2021-02-15 08:59] LABS: Absolute Lymphocyte Count 0.62 X10^3/uL (0.83-4.51); Absolute Neutrophil Count 3.1 X10^3/uL (2.0-7.7); Hematocrit 34.7 % (37-47); Hemoglobin 11.9 g/dL (12.0-15.0); Lymphocyte # 0.62 X10^3/ul (0.83-4.51); Lymphocyte % 14.9 % (19-41); Mean Corp Hgb Conc 34.3 g/dL (32-36); Mean Corpuscular Hgb 34.9 pg (27.0-32.0); Mean Corpuscular Volume 101.8 fL (81-99); Mean Platelet Vol. 11.3 fl (6.2-12.0); Monocyte# 0.39 X10^3/uL; Monocyte% 9.4 % (0-10); NRBC Flagged by Analyzer 0 % (0-5); Neutrophil # 3.13 X10^3/uL (2.7-7.7); Neutrophil % 75.5 % (47-70); POSITIVE COUNT YES; Platelet Count 66 K/mm3 (150-450); RBC Distribution Width CV 13.9 % (11.6-14.6); RBC Distribution Width SD 52.3 fl (35.1-43.9); Red Blood Count 3.41 M/mm3 (4.2-5.4); White Blood Count 4.2 K/mm3 (4.4-11.0)
[2021-02-15] MEDS: Insulin Lispro 100 UNIT/ML INSULN.PEN 25 UNIT SC ×2 (09:01→12:40)
[2021-02-15] MEDS: Insulin Lispro 100 UNIT/ML INSULN.PEN SC ×2 (09:01→12:40)
[2021-02-15] MEDS: Aspirin 81 MG TAB.CHEW PO (09:03)
[2021-02-15] MEDS: Vitamin B Comp W-C Capsule 1 CAP PO (09:03)
[2021-02-15] MEDS: dexAMETHasone 4 MG Tablet 6 MG PO (09:05)
[2021-02-15] MEDS: Glucerna Shake 120 ML LIQUID PO (09:06)
[2021-02-15] MEDS: amLODIPine 10 MG Tablet PO (09:06)
[2021-02-15] MEDS: Escitalopram Oxalate 10 MG Tablet PO (09:06)
[2021-02-15] MEDS: Isosorbide Mononitrate 30 MG Tablet PO (09:06)
[2021-02-15] MEDS: Lisinopril 10 MG Tablet PO (09:08)
[2021-02-15] MEDS: Furosemide 40 MG/4 ML Vial IV (09:09)
[2021-02-15 09:16] LABS: Anion Gap 9 (5-15); BUN 44 mg/dL (7-18); BUN/Creat Ratio 24.4 RATIO (10-20); Calcium,Total 8.4 mg/dL (8.5-10.1); Chloride 95 mmol/L (98-107); EST Glomerular Filtration Rate 29 mL/min (>60); Est Glom Filt Rate - Afr Amer 35 mL/min (>60); Glucose 242 mg/dL (74-106); Potassium 3.7 mmol/L (3.5-5.1); Sodium Level 129 mmol/L (136-145)
[2021-02-15 09:20] LABS: Bedside Glucose 234 mg/dL (70-110)
--- NOTE | 2021-02-15 11:34 | CASEMGMT ---
SW called [facility] and spoke with the coverage line. Patient's casework specialist is Breanne Sargent. Patient has a medical alert button, she gets 4 hours of personal care through [facility], and 7 meals delivered a week by [employer]. Katelynn ANDRADE
--- NOTE | 2021-02-15 11:41 | DS.PCM_ITS ---
Providers Date of Admission: 02/13/21 Primary Care Physician: Dr. Bailey Toribio MD Consultations 02/13/21 01:38 Consult: Infectious Disease Routine Consulting Provider: Dinesh Vaughan Reason for Consult: Covid-19 EMERGENT Consult: No Notified: Yes Date Notified: 02/15/21 Time Notified: 06:31 Method of Notification: Answering Service Consult: Onc/Wound/route delivery supervisor Routine Comment: Reason for Consult:: Right lower leg venous ulcer 02/13/21 03:25 Consult: Nephrology Routine Consulting Provider: Christine Steward Reason for Consult: ON HD T,T,S EMERGENT Consult: No Notified: Yes Date Notified: 02/13/21 Time Notified: 06:42 Method of Notification: Text Reason For Visit: CHEST PAIN/CHF EXA Diagnosis Discharge Diagnosis (1) ESRD (end stage renal disease) on dialysis: Status: Acute Code(s): N18.6 - End stage renal disease; Z99.2 - Dependence on renal dialysis (2) COVID-19: Status: Acute Code(s): U07.1 - COVID-19 (3) Edema of both legs: Status: Acute Code(s): R60.0 - Localized edema (4) Hyponatremia: Status: Acute Code(s): E87.1 - Hypo-osmolality and hyponatremia (5) Thrombocytopenia: Status: Acute Code(s): D69.6 - Thrombocytopenia, unspecified (6) History of UTI: Status: Acute Code(s): Z87.440 - Personal history of urinary (tract) infections Medications at Discharge Home Medications insulin lispro 5 unit SUBCUT TIDCM 06/10/19 atorvastatin 10 mg PO QHS 09/06/19 ergocalciferol (vitamin D2) 50,000 unit PO KELLOGG 09/06/19 escitalopram oxalate 10 mg PO DAILY 05/05/20 amlodipine 10 mg PO DAILY 09/29/20 aspirin 81 mg PO DAILY 09/29/20 Acetaminophen [Tylenol] 650 mg PO Q4H PRN 10/13/20 insulin glargine 16 unit SQ BID 10/13/20 isosorbide mononitrate 30 mg PO DAILY 10/13/20 lisinopril 10 mg PO DAILY 10/13/20 metoprolol succinate 25 mg PO BID 10/13/20 trazodone 50 mg tablet 50 mg PO QHS 12/10/20 B-complex with vitamin C 1 tab PO DAILY 01/20/21 hydrocodone-acetaminophen 1 tab PO Q4H PRN PRN 2 Days #8 tablet 01/20/21 midodrine See Rx Instructions .ROUTE .COMPLEX 01/20/21 dexamethasone 6 mg PO DAILY #7 tab 02/15/21 Hospital Course Operations None Procedures None Summary of Care Provided Minutes Spent on Discharge: 50 Hospital Course: Patient is a 75 y/o female with a PMh as outlined who was admitted via the ED on 02/12/2021 with a complaint of chest pressure. SHe had associated shortness of breath. She hadnt missed any dialysis session, and denied any fever or chills, but did admit to a chronic cough. Review of systems was otherwise negative. CXR showed pulmonary venous congestion/edema and EKG showed no acute ST changes. LAbs showed evidence of pancytopenia and hyponatremia and she was hyperglycemic. BNP was elevated and COVID 19 antigen was positive. She was admitted to be managed for acute covid 19 infection and acute on chronic hypoxic respiratory insufficiency due to COVID and acute on chronic HFpEF as well as atypical chest pain. She was started on IV lasix for diuresis, and nephrology consulted for hemodialysis. She was started on remdesivir and Decadron for COVID-19 infection. Troponins x3 were negative. Her symptoms improved markedly after she was diuresed. Her shortness of breath improved. She remained stable and was discharged home on 02/15/2021. She had an ambulatory pulse ox which showed that she didnt qualify for oxygen. She was discharged on PO dexamethasone 6mg daily x 7 days to complete a 10 day course. She is to remain in self isolation till March 07 2021, to complete 20 days of isolation after diagnosis. Patient seen and examined. She has no complaints and felt much better. Review of systems otherwise negative. She has remained hemodynamically stable. Physical Exam Const alert and oriented x3 General Appearance: cooperative and comfortable Orientation / Consciousness: confused and lethargic Exam Limitations: no limitations HEENT normocephalic, head/scalp atraumatic, moist oral mucous membranes and oropharynx normal Eyes PERRL, EOMs intact bilaterally and conjunctivae normal Neck no lymphadenopathy and supple Resp Resp Narrative: diminished breath sounds bibasally, no wheezes or crackles. remains on 2L of oxygen by nasal canula; was weaned off oxygen prior to discharge. Cardio regular rate, regular rhythm, S1 normal heart sound, S2 normal heart sound and no murmurs GI normal to inspection, nondistended, normoactive bowel sounds, soft to palpation, non-tender and non-distended Extremity normal to inspection, full ROM and no clubbing, cyanosis or edema Skin no rashes or lesions noted Skin Narrative: small ~ 0.5cm superficial ulceration with slough in the floor of the ulcer on the right wolfe. Dressing over right wolfe. Very minimal erythema and no tenderness Neuro oriented x3, CN's II-XII intact bilaterally and moves all extremities Sensorium / Orientation: awake and alert Psych affect normal Medical Records Data Medical Nutrition Assessment Dietitian: Malnutrition Criteria Met Start: 02/13/21 13:38 Freq: Status: Active Protocol: Document 02/13/21 13:50 AG (Rec: 02/13/21 13:50 AG [id number]) Nutrition Malnutrition Evidence of Malnutrition Exists No Intake Problem Inadequate Oral Intake Etiology r/t altered mental status Signs/Symptoms as evidenced by no PO intake since admission Status Active Problem Recommendation Dietitian Recommendations/Changes Cardiac, 1800 calorie controlled diet and Glucerna 120mL 4x/day. If PO intake at meals is poor, will consider liberalizing diet. Daily wts. Weight / BMI Weight Weight: 205 lb 4.006 oz Body Mass Index (BMI) 39.2 ABG / Lab / Microbiology Data Result Diagrams: 02/15/21 08:44 02/15/21 08:44 Laboratory: Laboratory Results - last 24 hr 02/14/21 13:12: POC Glucose > 500 H* 02/14/21 13:15: POC Glucose > 500 H* 02/14/21 17:26: POC Glucose 400 H 02/14/21 22:01: POC Glucose 381 H 02/15/21 08:44: WBC 4.2 L, RBC 3.41 L, Hgb 11.9 L, Hct 34.7 L, MCV 101.8 H, MCH 34.9 H, MCHC 34.3, RDW Std Deviation 52.3 H, RDW Coeff of Kusum 13.9, Plt Count 66 L, MPV 11.3, Immature Gran % (Auto) 0.200, Neut % (Auto) 75.5 H, Lymph % (Auto) 14.9 L, [place] % (Auto) 9.4, Eos % (Auto) 0.0, Baso % (Auto) 0.0, Absolute Neuts (auto) 3.1, Absolute Lymphs (auto) 0.62 L, Nucleated RBC % 0 02/15/21 08:44: Sodium 129 L, Potassium 3.7, Chloride 95 L, Carbon Dioxide 25.0, Anion Gap 9, BUN 44 H, Creatinine 1.80 H, Estim Creat Clear Calc 19.40, Est GFR (MDRD) Af Amer 35 L, Est GFR (MDRD) Non-Af 29 L, BUN/Creatinine Ratio 24.4 H, Glucose 242 H, Calcium 8.4 L 02/15/21 08:52: POC Glucose 234 H Microbiology: Microbiology 02/13/21 09:00 Blood Culture (Wb) - Anticubital Left Blood Culture - Preliminary No growth in 48 hours. 02/13/21 01:10 Blood Culture (Wb) - Left Hand Blood Culture - Preliminary No growth in 48 hours. 02/13/21 17:45 Urine, Clean Catch Legionella Antigen - Final 02/13/21 17:45 Urine, Clean Catch Streptococcus pneumoniae Antigen (M - Final 02/12/21 21:45 Mucosa - Nose SARS-CoV-2 Antigen (Rapid) - Final SARS-CoV-2 (COVID 19) D/C Instructions Discharge Diet: Low fat / Low cholesterol Discharge Activity: Return to Normal Activity Weight Bearing Status: Weight bearing as tolerated Call your doctor if you observe: Fever of 101 or Higher, Shortness of breath, Swelling in the ankles and Increased palpitations (irregular heartbeat) Meaningful Use Info Meaningful Use Diagnoses (Choose all that apply): None applicable Discharge Plan Admission Admit Date/Time: 02/13/21 00:54 Primary Reason for Your Visit: COVID infection, acute on chronic heart failure Attending Provider: Mary Shaw Primary Care Provider: Bailey Toribio Consulting Providers: Christine Steward ; Dinesh Vaughan Instructions Patient Instructions: Coronavirus Disease 2019 (COVID-19): Prevention, Coronavirus Disease 2019 (COVID-19): Caring for Yourself or Others, COVID-19: Lying in a Prone Position (Proning), COVID-19 and the Flu: What's the Difference?, CKD Dc Additional Instructions / Restrictions: Patient Problems: Altered Health Status related to Hospitalization Patient Goals: *Optimal Level of Health *Keep Appointments *Medication Compliance *Remain Safe Keep in self isolation till March 07 2021 Discharge Orders/Prescriptions Prescriptions: New dexamethasone 6 mg tablet 6 mg PO DAILY Qty: 7 RF: 0 Continued trazodone 50 mg tablet 50 mg PO QHS RF: 0 insulin lispro 100 UNIT/ML insulin pen 5 unit subcut TIDCM RF: 0 atorvastatin 10 MG tablet 10 mg PO QHS RF: 0 ergocalciferol (vitamin D2) 50,000 UNIT capsule 50,000 unit PO KELLOGG RF: 0 escitalopram oxalate 10 MG tablet 10 mg PO DAILY RF: 0 aspirin 81 MG tablet,chewable 81 mg PO DAILY RF: 0 amlodipine 10 MG tablet 10 mg PO DAILY RF: 0 Acetaminophen [Tylenol] 325 MG tablet 650 mg PO Q4H PRN (Reason: Pain 1-10 Or Fever) RF: 0 metoprolol succinate 50 MG tablet extended release 24 hr 25 mg PO BID RF: 0 isosorbide mononitrate 30 MG tablet extended release 24 hr 30 mg PO DAILY RF: 0 lisinopril 10 MG tablet 10 mg PO DAILY RF: 0 insulin glargine 100 UNIT/ML insulin pen 16 unit SQ BID RF: 0 midodrine 5 mg Tablet See Rx Instructions .ROUTE .COMPLEX RF: 0 B-complex with vitamin C Tablet 1 tab PO DAILY RF: 0 hydrocodone-acetaminophen 1 TABLET tablet 1 tab PO Q4H PRN PRN (Reason: Pain) 2 Days Qty: 8 RF: 0 Referrals / Follow Up: Bailey Toribio MD [Primary Care Provider] - 02/18/21 2:00 pm Disposition Disposition (needs filled in before D/C Order can be placed): Home, Self Care Charges/Coding Visit Charges Inpatient E&M: 96809 Disch Hosp
--- NOTE | 2021-02-15 12:20 | CASEMGMT ---
Addendum entered by Monet Clemente 02/15/21 15:07: Pt was discharged before this RN CM heard back from Delvin at [facility]. Delvin notified that pt was discharged and he states he will work on getting OP dialysis set up for pt d/t COVID + status. Pt was last ran on 02/13/21 and Delvin is updated at this time. Marci MALDONADO CM Addendum entered by Monet Clemente 02/15/21 12:39: Per Johanny RN, pt does not qualify for home oxygen. Marci MALDONADO CM Addendum entered by Monet Clemente 02/15/21 12:34: Pt has TTS 1000 OP dialysis set up at [facility] but they had previously been sending pt's to [facility] if they were COVID +. Call to Delvin at [facility] and he states he is working on how/when to get pt set up and is awaiting call back from his management. CM to follow for dialysis set up and home oxygen testing. Marci MALDONADO CM Original Note: Per pt, she is active with [facility] for SN and would like to have PT/OT added. Call to Ling at [facility] and she states pt is active with SN and aware PT/OT to be added. Ling is also updated that pt is COVID +, voices understanding. H&P, IGOR order, facesheet faxed. D/C summ/instructions to be faxed once completed. This RN CM is awaiting home oxygen testing. CM to follow. Marci MALDONADO CM
[2021-02-15] MEDS: proCHLORPERazine 10 MG/2 ML Vial 5 MG IV (12:46)
[2021-02-15 13:20] LABS: Bedside Glucose 235 mg/dL (70-110)
--- NOTE | 2021-02-15 13:22 | CASEMGMT ---
ANNIE faxed patient's discharge instructions to [facility]. ANNIE also called the coverage line letting them know she is being discharged today. ANNIE also notified them that she was COVID positive. Katelynn ANDRADE
--- NOTE | 2021-02-15 14:33 | PHA.DC.MR ---
Pharmacy Service has performed discharge medication reconciliation for this patient. The patient's discharge medication list was reviewed for discrepancies and discrepancies were resolved. Patient discharged before I was able to call and funeral pre arrangement counselor. Home Medications insulin lispro 5 unit SUBCUT TIDCM 06/10/19 atorvastatin 10 mg PO QHS 09/06/19 ergocalciferol (vitamin D2) 50,000 unit PO KELLOGG 09/06/19 escitalopram oxalate 10 mg PO DAILY 05/05/20 amlodipine 10 mg PO DAILY 09/29/20 aspirin 81 mg PO DAILY 09/29/20 Acetaminophen [Tylenol] 650 mg PO Q4H PRN 10/13/20 insulin glargine 16 unit SQ BID 10/13/20 isosorbide mononitrate 30 mg PO DAILY 10/13/20 lisinopril 10 mg PO DAILY 10/13/20 metoprolol succinate 25 mg PO BID 10/13/20 trazodone 50 mg tablet 50 mg PO QHS 12/10/20 B-complex with vitamin C 1 tab PO DAILY 01/20/21 hydrocodone-acetaminophen 1 tab PO Q4H PRN PRN 2 Days #8 tablet 01/20/21 midodrine See Rx Instructions .ROUTE .COMPLEX 01/20/21 dexamethasone 6 mg PO DAILY #7 tab 02/15/21
[2021-02-15 15:26] LABS: Pathologist Review Reviewed
[2021-02-15 15:33] LABS: Pathologist Review Reviewed
[2021-02-16 07:41] LABS: Bedside Glucose > 500 mg/dL (70-110)
[2021-02-16 07:41] LABS: Bedside Glucose > 500 mg/dL (70-110)
--- NOTE | 2021-02-16 13:54 | CASEMGMT ---
RN CM Discharge Follow-up Phone Call: EMELIA: Oliva Strata: 4 Call Date: 02/15/21 Discharge Date: 02/14/21 Time of Call: 1354 Duration: 1 min Admitting Diagnosis: Chest pain, CHF RN CM attempted to complete follow-up phone call after recent hospitalization. No answer, voicemail box is full and unable to leave message. CM will attempt again at later time.
== END 2021-02-15 14:29 | disposition home or self-care (01) | DRG 177 ==
LOC: ED 23:53 → PCU 02-13 01:05
PROVIDERS: Admitting Provider Internal Medicine; Emergency Provider Emergency Medicine; PCP Internal Medicine; Visit Provider Student in an Organized Health Care Education/Training Program
DX: U07.1 COVID-19 (principal); I50.33 Acute on chronic diastolic (congestive) heart failure; N18.6 End stage renal disease; J96.21 Acute and chronic respiratory failure with hypoxia; D61.818 Other pancytopenia; E87.1 Hypo-osmolality and hyponatremia; I13.2 Hypertensive heart and chronic kidney disease with heart failure and with stage 5 chronic kidney disease, or end stage renal disease; Z68.41 Body mass index [BMI] 40.0-44.9, adult; L97.819 Non-pressure chronic ulcer of other part of right lower leg with unspecified severity; E87.2 Acidosis; Z99.2 Dependence on renal dialysis; D50.9 Iron deficiency anemia, unspecified; E11.65 Type 2 diabetes mellitus with hyperglycemia; D69.6 Thrombocytopenia, unspecified; E11.22 Type 2 diabetes mellitus with diabetic chronic kidney disease; E66.01 Morbid (severe) obesity due to excess calories; D63.8 Anemia in other chronic diseases classified elsewhere; E78.5 Hyperlipidemia, unspecified; F31.9 Bipolar disorder, unspecified; F41.1 Generalized anxiety disorder; G25.81 Restless legs syndrome; E11.622 Type 2 diabetes mellitus with other skin ulcer; W19.XXXA Unspecified fall, initial encounter; Y93.9 Activity, unspecified; Y92.9 Unspecified place or not applicable; G40.909 Epilepsy, unspecified, not intractable, without status epilepticus; G47.33 Obstructive sleep apnea (adult) (pediatric); D53.9 Nutritional anemia, unspecified; E11.42 Type 2 diabetes mellitus with diabetic polyneuropathy; I25.10 Atherosclerotic heart disease of native coronary artery without angina pectoris; F44.81 Dissociative identity disorder; I25.2 Old myocardial infarction; I27.21 Secondary pulmonary arterial hypertension; I36.1 Nonrheumatic tricuspid (valve) insufficiency; J44.9 Chronic obstructive pulmonary disease, unspecified; K21.9 Gastro-esophageal reflux disease without esophagitis; M06.9 Rheumatoid arthritis, unspecified; Z79.4 Long term (current) use of insulin; Z79.899 Other long term (current) drug therapy; Z86.14 Personal history of Methicillin resistant Staphylococcus aureus infection; Z86.73 Personal history of transient ischemic attack (TIA), and cerebral infarction without residual deficits; Z87.891 Personal history of nicotine dependence; Z87.440 Personal history of urinary (tract) infections; Z87.19 Personal history of other diseases of the digestive system
CPT/HCPCS: 11042; 36415; 36600; 71045; 80048; 80053; 82550; 82803; 82962; 83605; 83735; 83880; 84075; 84100; 84145; 84484; 85025; 85027; 85384; 85610; 86140; 87040; 87070; 87205; 87426; 87449; 87635; 90937; 93005; 94640; 97110; 97162; 97167; 97530; 97535; 99213; 99251; 99285; J7030; J7050; P9612; U0005; A4216; G0257; G0463; J1940; U0003

== ENCOUNTER 2021-02-22 04:27 | Inpatient (IN) | payer MEDICARE, MEDICAID, SELFPAY ==
[2021-02-22] VITALS (22 sets, daily range): BP systolic 110–190; BP diastolic 52–92; PULSE 71–104; RESP 10–38; TEMP 36.7–37.1; O2SAT 78–100; BMI 38.9; BMI 33.1
--- NOTE | 2021-02-22 04:45 | EKG12_ITS ---
Test Reason : SOB Blood Pressure : / mmHG Vent. Rate : 109 BPM Atrial Rate : 109 BPM P-R Int : 160 ms QRS Dur : 078 ms QT Int : 310 ms P-R-T Axes : 045 059 038 degrees QTc Int : 417 ms Sinus tachycardia Low voltage QRS Septal infarct , age undetermined Abnormal ECG Confirmed by DUTCH BOWMAN, ANTONIA ([id number]), editor farm journal ARDHA TAPIA ([id number]) on 02/25/2021 10:20:19 AM Referred By: JAKE Confirmed By:ANTONIA JUDD MD
--- NOTE | 2021-02-22 04:45 | RAD_ITS ---
STUDY: X-RAY CHEST REASON FOR EXAM: Female, 75 years old. Dyspnea TECHNIQUE: Portable, upright, AP chest radiograph COMPARISON: 02/12/2021 FINDINGS: Cartilaginous catheter remains in Patchy opacities throughout the perihilar and infrahilar lungs. Right pleural effusion is increased compared to 02/12/2021. New left pleural effusion. There is mild cardiac enlargement. Normal mediastinum and elva. There is prominence of the pulmonary hilar arteries and peripheral pulmonary arteries, consistent with congestive heart failure (CHF). Aortic arch calcification. There is degenerative osteoarthritis of the bilateral shoulders. There is no demonstrated abnormality of the visualized soft tissue structures of the upper abdomen. RAD/Chest 1 View (Portable) IMPRESSION: CHF exacerbation with right greater than left pleural effusions. Superimposed pneumonia is not excluded. Electronically Signed: Jono Hammer MD at 5:32 EDT Tel , Service support ,
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
[2021-02-22 05:51] LABS: Absolute Lymphocyte Count 0.32 X10^3/uL (0.83-4.51); Absolute Neutrophil Count 6.8 X10^3/uL (2.0-7.7); Basophil# 0.01 X10^3/uL; Basophil% 0.1 % (0-1); Eosinophil# 0.01 X10^3/uL; Eosinophils% 0.1 % (0-5); Hematocrit 41.2 % (37-47); Hemoglobin 13.4 g/dL (12.0-15.0); Lymphocyte # 0.32 X10^3/ul (0.83-4.51); Lymphocyte % 4.2 % (19-41); Mean Corp Hgb Conc 32.5 g/dL (32-36); Mean Corpuscular Hgb 33.5 pg (27.0-32.0); Mean Platelet Vol. 10.5 fl (6.2-12.0); Monocyte# 0.46 X10^3/uL; NRBC Flagged by Analyzer 0 % (0-5); Neutrophil # 6.83 X10^3/uL (2.7-7.7); Neutrophil % 88.9 % (47-70); POSITIVE COUNT YES; POSITIVE DIFFERENTIAL YES; Platelet Count 86 K/mm3 (150-450); RBC Distribution Width SD 53.4 fl (35.1-43.9); White Blood Count 7.7 K/mm3 (4.4-11.0)
[2021-02-22 06:04] LABS: Differential Indicated SCAN CRITERIA MET
[2021-02-22 06:05] LABS: Lactic Acid 1.7 mmol/L (0.4-1.9)
[2021-02-22 06:08] LABS: ALB/GLOB Ratio 0.7 RATIO (0.9-2.4); AST(SGOT) 76 U/L (15-37); Alanine Aminotransfer ALT/SGPT 41 U/L (13-56); Albumin, Serum 2.8 g/dL (3.2-5.0); Alkaline Phosphatase 75 U/L (45-117); Anion Gap 7 (5-15); BUN 44 mg/dL (7-18); BUN/Creat Ratio 25.7 RATIO (10-20); Calcium,Total 8.6 mg/dL (8.5-10.1); Chloride 98 mmol/L (98-107); Creatinine, Serum 1.71 mg/dL (0.55-1.02); EST Glomerular Filtration Rate 31 mL/min (>60); Est Glom Filt Rate - Afr Amer 37 mL/min (>60); Estimated Creatinine Clearance 20.42 ml/min; Globulin 4.3 g/dL (2.2-4.2); Glucose 348 mg/dL (74-106); Potassium 5.4 mmol/L (3.5-5.1); Protein, Total 7.1 g/dL (6.4-8.2); Sodium Level 130 mmol/L (136-145)
[2021-02-22 06:11] LABS: International Normalized Ratio 1.1; Prothrombin Time (Protime)PT. 13.7 SECONDS (11.7-14.9)
[2021-02-22 06:24] LABS: Differential Comment SCANNED
[2021-02-22] MEDS: MethylPREDNISolone 125 MG/2 ML Vial IV (06:35)
[2021-02-22] MEDS: Furosemide 100 MG/10 ML Vial 80 MG IV (06:35)
[2021-02-22 06:38] LABS: Mucous, Urine 0 SEEN /hpf (<or=2+); Squamous Epithelial Cells - UA 0 SEEN /hpf (5-10); White Blood Cells 0 SEEN /hpf (0-5)
[2021-02-22 06:39] LABS: Color, Urine Yellow (Yellow); Glucose, Dipstick 1000 mg/dl (Normal); Ketone-Dipstick 5 mg/dl (Negative); Leukocyte Esterase-Dipstick Negative /ul (Negative); Nitrite-Dipstick Negative (Negative); Occult Blood-Urine 50 /ul (Negative); Protein-Dipstick 500 mg/dl (Negative); Specific Gravity, Urine 1.015 (1.002-1.030); Urine Bilirubin Dipstick Negative (Negative); Urine Clarity Clear (Clear); Urine Urobilinogen Normal (Normal)
--- NOTE | 2021-02-22 06:44 | ED.RN ---
Dr Montes is aware of sepsis screen positive but with CHF not doibg fluids. Lasix was given.
[2021-02-22 07:01] LABS: Bacteria 2+ /hpf (None Seen); Red Blood Cells-Urine 0-5 SEEN /hpf (0-5)
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
[2021-02-22 08:07] LABS: BNP,B-Type NATRIURETIC PEPTIDE 814.3 pg/mL (0-100)
--- NOTE | 2021-02-22 09:11 | PCS.PANDOC ---
PANDEMIC DOCUMENTATION INITIATED: Date: 02/15/2021 Time: 190
[2021-02-22 10:18] LABS: Troponin-I HS 1156 pg/mL (3.0-54.0)
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
[2021-02-22] MEDS: Furosemide 40 MG/4 ML Vial IV ×2 (11:22→17:00)
[2021-02-22] MEDS: Enoxaparin 30 MG/0.3 ML Syringe SC (11:22)
[2021-02-22 11:51] LABS: Troponin-I HS 1423 pg/mL (3.0-54.0)
--- NOTE | 2021-02-22 14:50 | CASEMGMT ---
Readmission chart review: Pt was admitted 02/12-02/15/21 for CP, CHF exac, COVID +/ and was discharged home on 02/15/21 with [facility]. Pt did not qualify for home oxygen at that time. Pt was scheduled to see Dr. Toribio on 02/18/21. Pt returned to [facility] ED on 02/22/21 with increased SOB and 78% on room air. Pt is ESRD pt and had TTS schedule prior to COVID positive but is currently going MWF and pt shortened her monday treatment by 1.5hour per nephro note. Pt is currently on continuous bipap. Pt's initial troponin was 1156 and now it is 1423. Cardiology c/s placed for NSTEMI. CM to follow PT/OT evals, clinical course, and for any further discharge planning/needs. Marci MALDONADO CM
[2021-02-22 16:40] LABS: Troponin-I HS 1644 pg/mL (3.0-54.0)
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
--- NOTE | 2021-02-22 17:49 | DIALYSIS ---
HD today as ordered tolerated well 2k uf -4000ml report to More sanchez
[2021-02-22] MEDS: Insulin Lispro 100 UNIT/ML INSULN.PEN SC (22:32)
[2021-02-22 22:56] LABS: Bedside Glucose 264 mg/dL (70-110)
[2021-02-23] VITALS (12 sets, daily range): BP systolic 124–155; BP diastolic 56–110; PULSE 81–108; RESP 18–20; TEMP 36.9–39.3; O2SAT 92–98
[2021-02-23] MEDS: Insulin Lispro 100 UNIT/ML INSULN.PEN SC ×4 (06:39→23:55)
[2021-02-23] MEDS: Nystatin Powder 15gm Bottle 1 APPLIC TOPICAL ×2 (06:40→21:37)
[2021-02-23 06:51] LABS: Bedside Glucose 271 mg/dL (70-110)
[2021-02-23 07:02] LABS: Absolute Lymphocyte Count 0.31 X10^3/uL (0.83-4.51); Absolute Neutrophil Count 6.3 X10^3/uL (2.0-7.7); Basophil# 0.01 X10^3/uL; Basophil% 0.1 % (0-1); Hematocrit 43.4 % (37-47); Hemoglobin 13.7 g/dL (12.0-15.0); Lymphocyte # 0.31 X10^3/ul (0.83-4.51); Lymphocyte % 4.4 % (19-41); Mean Corp Hgb Conc 31.6 g/dL (32-36); Mean Corpuscular Hgb 32.9 pg (27.0-32.0); Mean Corpuscular Volume 104.1 fL (81-99); Mean Platelet Vol. 11.6 fl (6.2-12.0); Monocyte# 0.42 X10^3/uL; Monocyte% 5.9 % (0-10); NRBC Flagged by Analyzer 0 % (0-5); Neutrophil # 6.31 X10^3/uL (2.7-7.7); Neutrophil % 89.2 % (47-70); POSITIVE COUNT YES; POSITIVE DIFFERENTIAL YES; Platelet Count 76 K/mm3 (150-450); RBC Distribution Width CV 13.8 % (11.6-14.6); RBC Distribution Width SD 53.1 fl (35.1-43.9); Red Blood Count 4.17 M/mm3 (4.2-5.4); White Blood Count 7.1 K/mm3 (4.4-11.0)
[2021-02-23 07:19] LABS: Differential Indicated SCAN CRITERIA MET
[2021-02-23 07:30] LABS: Anion Gap 13 (5-15); BUN 41 mg/dL (7-18); BUN/Creat Ratio 23.3 RATIO (10-20); Chloride 99 mmol/L (98-107); Creatinine, Serum 1.76 mg/dL (0.55-1.02); EST Glomerular Filtration Rate 30 mL/min (>60); Est Glom Filt Rate - Afr Amer 36 mL/min (>60); Estimated Creatinine Clearance 24.85 ml/min; Glucose 298 mg/dL (74-106); Potassium 4.1 mmol/L (3.5-5.1); Sodium Level 135 mmol/L (136-145)
[2021-02-23] MEDS: Enoxaparin 30 MG/0.3 ML Syringe SC (10:34)
[2021-02-23] MEDS: Acetaminophen 325 MG Tablet 650 MG PO ×2 (11:31→21:34)
[2021-02-23 11:46] LABS: Bedside Glucose 310 mg/dL (70-110)
--- NOTE | 2021-02-23 12:02 | RAD_ITS ---
STUDY: X-RAY CHEST REASON FOR EXAM: Female, 75 years old. chf TECHNIQUE: Single AP portable view of the chest. COMPARISON: 02/22/2021 FINDINGS: Significant interval clearing of pulmonary densities since yesterday. Mild congestion/atelectasis/edema remains. Probable small right pleural effusion. Double-lumen dialysis catheter terminates in the SVC, stable. Heart size normal. Calcified aorta. RAD/Chest 1 View (Portable) IMPRESSION: There is significant improvement since yesterday''s exam. Electronically Signed: Tunde Rich MD at 17:01 EDT , Service support ,
--- NOTE | 2021-02-23 12:22 | PN.RENAL_ITS ---
Subjective Subjective dialysis yesterday with 4L removed. Off bipap, weak debilitated with COVID but pt states still want to continue with dialysis Objective Data Objective Data Vital Signs: Vital Signs Temp Pulse Resp BP Pulse Ox 102.6 F H 100 20 H 143/110 H 96 02/23/21 11:35 02/23/21 10:19 02/23/21 10:19 02/23/21 10:19 02/23/21 10:19 Oxygen Flow Rate (L/min) 1 Oxygen Delivery Method Nasal Cannula Weight: 90.3 kg Body Mass Index (BMI) 33.1 Intake & Output: Intake and Output for Last 24 Hours 02/21/21 02/22/21 02/23/21 23:59 23:59 23:59 Intake Total 0 / 0 Output Total 4650 / 4650 150 / 150 Balance -4650 / -4650 -150 / -150 Lab / Micro Data Result Diagrams: 02/23/21 06:40 02/23/21 06:40 Labs: Laboratory Results - last 24 hr 02/22/21 16:05: Troponin I High Sens 1644 H* 02/22/21 22:21: POC Glucose 264 H 02/23/21 06:35: POC Glucose 271 H 02/23/21 06:40: WBC 7.1, RBC 4.17 L, Hgb 13.7, Hct 43.4, MCV 104.1 H, MCH 32.9 H , MCHC 31.6 L, RDW Std Deviation 53.1 H, RDW Coeff of [place] 13.8, Plt Count 76 L, MPV 11.6, Immature Gran % (Auto) 0.400, Neut % (Auto) 89.2 H, Lymph % (Auto) 4.4 L, [place] % (Auto) 5.9, Eos % (Auto) 0.0, Baso % (Auto) 0.1, Absolute Neuts (auto) 6.3, Absolute Lymphs (auto) 0.31 L, Nucleated RBC % 0 02/23/21 06:40: Sodium 135 L, Potassium 4.1, Chloride 99, Carbon Dioxide 23.0, Anion Gap 13, BUN 41 H, Creatinine 1.76 H, Estim Creat Clear Calc 24.85, Est GFR (MDRD) Af Amer 36 L, Est GFR (MDRD) Non-Af 30 L, BUN/Creatinine Ratio 23.3 H, Glucose 298 H, Calcium 8.0 L 02/23/21 11:30: POC Glucose 310 H Micro: Microbiology 02/22/21 06:34 Urine Catheter - Catheter Urine Culture - Preliminary Culture exhibits no growth. 02/22/21 07:30 Mucosa - Nose SARS-CoV-2 Antigen (Rapid) - Final SARS-CoV-2 (COVID 19) Rhythm Strip Rhythm Strip: Sinus Tach Rate: 109 Ectopy: None Physical Exam Const Constitutional Narrative: decreased, slow mentation General Appearance: cooperative and frail Extremity no clubbing, cyanosis or edema Neuro Neuro Narrative: slow to respond Psych Mood & Affect: depressed Assessment & Plan Assessment/Plan (1) ESRD (end stage renal disease) on dialysis: PLAN: Continue on Monday, Monday, Monday schedule while Covid positive. (2) Respiratory failure with hypoxia: PLAN: due to CHF now on 1L NC with good oxygenation (3) CHF (congestive heart failure): PLAN: Fluid removal on dialysis 4L yesterday. Check CXR. Oxygenation improved today off BIPAP. (4) COVID-19: (5) Hyponatremia: PLAN: Due to volume overload resolved (6) Thrombocytopenia: PLAN: Hold heparin on dialysis (7) Essential hypertension: PLAN: Stable BP (8) Anemia of chronic disease: PLAN: Hemoglobin 13.4 g. No need for TEMO therapy (9) Fever: PLAN: obtain blood cx, r/o line sepsis
--- NOTE | 2021-02-23 14:43 | PN.HOSP_ITS ---
Subjective Subjective Patient seen and examined. She is much more alert today. She has no active complaints, apart from asking for water. She does have a mild fever today. Review of systems otherwise negative. Temperature peaked at 102.6F. Objective Data Objective Data Vital Signs: Vital Signs Temp Pulse Resp BP Pulse Ox 100.0 F H 100 20 H 143/110 H 96 02/23/21 13:30 02/23/21 10:19 02/23/21 10:19 02/23/21 10:19 02/23/21 10:19 Oxygen Flow Rate (L/min) 1 Oxygen Delivery Method Nasal Cannula Weight: 199 lb 1.239 oz Body Mass Index (BMI) 33.1 Intake & Output: Intake and Output for Last 24 Hours 02/21/21 02/22/21 02/23/21 23:59 23:59 23:59 Intake Total 0 / 0 500 / 500 Output Total 4650 / 4650 250 / 250 Balance -4650 / -4650 250 / 250 Lab / Micro Data Result Diagrams: 02/23/21 06:40 02/23/21 06:40 Labs: Laboratory Results - last 24 hr 02/22/21 16:05: Troponin I High Sens 1644 H* 02/22/21 22:21: POC Glucose 264 H 02/23/21 06:35: POC Glucose 271 H 02/23/21 06:40: WBC 7.1, RBC 4.17 L, Hgb 13.7, Hct 43.4, MCV 104.1 H, MCH 32.9 H , MCHC 31.6 L, RDW Std Deviation 53.1 H, RDW Coeff of Kusum 13.8, Plt Count 76 L, MPV 11.6, Immature Gran % (Auto) 0.400, Neut % (Auto) 89.2 H, Lymph % (Auto) 4.4 L, [place] % (Auto) 5.9, Eos % (Auto) 0.0, Baso % (Auto) 0.1, Absolute Neuts (auto) 6.3, Absolute Lymphs (auto) 0.31 L, Nucleated RBC % 0 02/23/21 06:40: Sodium 135 L, Potassium 4.1, Chloride 99, Carbon Dioxide 23.0, Anion Gap 13, BUN 41 H, Creatinine 1.76 H, Estim Creat Clear Calc 24.85, Est GFR (MDRD) Af Amer 36 L, Est GFR (MDRD) Non-Af 30 L, BUN/Creatinine Ratio 23.3 H, Glucose 298 H, Calcium 8.0 L 02/23/21 11:30: POC Glucose 310 H Micro: Microbiology 02/22/21 06:34 Urine Catheter - Catheter Urine Culture - Preliminary Culture exhibits no growth. 02/22/21 07:30 Mucosa - Nose SARS-CoV-2 Antigen (Rapid) - Final SARS-CoV-2 (COVID 19) Rhythm Strip Rhythm Strip: Sinus Tach Rate: 109 Ectopy: None Physical Exam Const alert, oriented x3 and no apparent distress General Appearance: cooperative Exam Limitations: no limitations HEENT normocephalic, head/scalp atraumatic and hearing grossly normal bilaterally Head and Scalp: normocephalic Eyes PERRL, EOMs intact bilaterally and conjunctivae normal Neck no lymphadenopathy and supple Resp Resp Narrative: mildly diminished breath sounds bibasally, no wheezes or crackles. On 1L of oxygen by nasal canula Cardio regular rate, regular rhythm, S1 normal heart sound, S2 normal heart sound and no murmurs GI normal to inspection, nondistended, normoactive bowel sounds, soft to palpation, non-tender and non-distended Extremity normal to inspection, full ROM and no clubbing, cyanosis or edema Peripheral Pulses: Yes pulses 2+ throughout Skin no rashes or lesions noted Neuro CN's II-XII intact bilaterally and moves all extremities Neuro Narrative: alert but lethargic. Sensorium / Orientation: awake Psych Psych Narrative: lethargic Assessment & Plan Assessment/Plan (1) CHF (congestive heart failure): (2) Respiratory failure with hypoxia: (3) COVID-19: PLAN: #Acute on chronic hypoxic respiratory failure due to fluid overload from ESRD and acute on chronic heart failure as well as COVID infection * now off BIPAP. on 1L of oxygen * SOB improved with dialysis * nephrology on board; on IV lasix * breathing treatment with bronchodilators * * #Nonstemi * EKG showed no acute ST changes * initial high sensitivity troponin was ~ 100, and trended up to ~ 1400 to a pe ak of 1644 * cardiology on board; advocated conservative management. * on atorvastatin. * #Acute on chronic HFpEF: as above. has EF of 55% #ESRD: on HD MWF. nephrology on board. #Hyperkalemia: resolved. K is 4.1. #Hypertension; on amlodipine and metoprolol. Stable #Type 2 Diabetes mellitus * ISS. Accuchecks ACHS * #Hyperlipidemia: on statin #ELENITA: on CPAP qhs #Hyponatremia: this is chronic. Will monitor #Pancytopenia: this is chronic. platelets are down to 76 today this is chronic. #Seizure disorder: stable. Not on any seizure meds #Bipolar disorder: stable DVT prophylaxis; on SCDs. no anticoagulation o/a of thrombocytopenia. Code status: full code, unverified. * Charges/Coding Visit Charges Inpatient E&M: 16635 Subs Hosp L2
[2021-02-23] MEDS: Furosemide 40 MG Tablet PO (17:15)
[2021-02-23 18:36] LABS: Bedside Glucose 356 mg/dL (70-110)
[2021-02-24] VITALS (50 sets, daily range): BP systolic 84–155; BP diastolic 46–132; PULSE 72–184; RESP 10–30; TEMP 37.1–38.6; O2SAT 89–100
[2021-02-24] MEDS: Amiodarone 360 MG in Dextrose 5% Viaflo Bag 192.8 ML 33.3 MG CONT INF (03:09)
[2021-02-24] MEDS: 0.9% Saline Lock 10 ML Syringe IV ×6 (03:15→16:36)
--- NOTE | 2021-02-24 04:36 | EKG12_ITS ---
Test Reason : TACHYCARDIA Blood Pressure : / mmHG Vent. Rate : 147 BPM Atrial Rate : 038 BPM P-R Int : 000 ms QRS Dur : 076 ms QT Int : 310 ms P-R-T Axes : 000 069 092 degrees QTc Int : 485 ms Atrial fibrillation Septal infarct , age undetermined Abnormal ECG When compared with ECG of 22-FEB-2021 05:11, MANUAL COMPARISON REQUIRED, DATA IS UNCONFIRMED Confirmed by DUTCH BOWMAN, ANTONIA ([id number]), film editor RADHA TAPIA ([id number]) on 02/25/2021 11:00:45 AM Referred By: JENNIFER Confirmed By:ANTONIA JUDD MD
[2021-02-24] MEDS: Ondansetron 4 MG/2 ML Vial IV (04:52)
--- NOTE | 2021-02-24 04:55 | PCM.HOSP.N ---
Hospitalist Note Patient with ongoing atrial fibrillation with RVR on amiodarone drip. Rate has consistently been > 130s from discussion with staff. Given lower BP will administer digoxin IV and re-assess. Cardiology is consulted and following also with planned staff update this AM. Will continue to monitor.
[2021-02-24] MEDS: Digoxin 250 MCG/ML Ampul IV ×2 (04:59→05:54)
[2021-02-24 05:28] LABS: Absolute Lymphocyte Count 0.41 X10^3/uL (0.83-4.51); Absolute Neutrophil Count 8.1 X10^3/uL (2.0-7.7); Basophil# 0.01 X10^3/uL; Basophil% 0.1 % (0-1); Eosinophil# 0.01 X10^3/uL; Eosinophils% 0.1 % (0-5); Hematocrit 41.5 % (37-47); Hemoglobin 13.9 g/dL (12.0-15.0); Lymphocyte # 0.41 X10^3/ul (0.83-4.51); Lymphocyte % 4.6 % (19-41); Mean Corp Hgb Conc 33.5 g/dL (32-36); Mean Corpuscular Hgb 33.4 pg (27.0-32.0); Mean Corpuscular Volume 99.8 fL (81-99); Mean Platelet Vol. 11.3 fl (6.2-12.0); Monocyte# 0.44 X10^3/uL; Monocyte% 4.9 % (0-10); NRBC Flagged by Analyzer 0 % (0-5); Neutrophil # 8.07 X10^3/uL (2.7-7.7); Neutrophil % 89.7 % (47-70); POSITIVE COUNT YES; POSITIVE DIFFERENTIAL YES; Platelet Count 87 K/mm3 (150-450); RBC Distribution Width CV 13.7 % (11.6-14.6); RBC Distribution Width SD 50.7 fl (35.1-43.9); Red Blood Count 4.16 M/mm3 (4.2-5.4)
[2021-02-24 05:31] LABS: Differential Indicated SCAN CRITERIA MET
[2021-02-24 05:49] LABS: Anion Gap 12 (5-15); BUN 49 mg/dL (7-18); BUN/Creat Ratio 26.1 RATIO (10-20); Chloride 91 mmol/L (98-107); Creatinine, Serum 1.88 mg/dL (0.55-1.02); EST Glomerular Filtration Rate 28 mL/min (>60); Est Glom Filt Rate - Afr Amer 34 mL/min (>60); Estimated Creatinine Clearance 23.27 ml/min; Glucose 332 mg/dL (74-106); Potassium 4.4 mmol/L (3.5-5.1); Sodium Level 125 mmol/L (136-145)
[2021-02-24] MEDS: Insulin Lispro 100 UNIT/ML INSULN.PEN SC ×4 (05:59→23:04)
[2021-02-24 06:21] LABS: Differential Comment SCANNED
[2021-02-24 06:25] LABS: Bedside Glucose 339 mg/dL (70-110)
[2021-02-24 06:31] LABS: Bedside Glucose 334 mg/dL (70-110)
[2021-02-24] MEDS: dilTIAZem 25 MG/5 ML Vial 20 MG IV BOLUS ×2 (06:39→12:54)
[2021-02-24] MEDS: Amiodarone 360 MG in Dextrose 5% Viaflo Bag 192.8 ML 16.7 MG CONT INF ×2 (09:59→22:12)
--- NOTE | 2021-02-24 10:12 | CASEMGMT ---
Physician said patient may need placement. ANNIE called [facility] to see her current dialysis schedule and location since she has COVID. Per Nazia she still goes to [facility], but comes M,W,F around 430p. That was the plan until the . Katelynn Bui [employer]ILN [employer] REPAIR[employer]AYMOND
--- NOTE | 2021-02-24 10:36 | PCM.PN.REN ---
Subjective Subjective seen on dialysis, tolerating 2.5L fluid removal. Admits to productive cough, breathing better. Poor oral intake still Objective Data Objective Data Vital Signs: Vital Signs Temp Pulse Resp BP Pulse Ox 98.8 F 128 H 22 H 145/132 H 95 02/24/21 10:00 02/24/21 10:00 02/24/21 10:00 02/24/21 10:00 02/24/21 10:00 Oxygen Flow Rate (L/min) 1 Oxygen Delivery Method Nasal Cannula Weight: 90.3 kg Body Mass Index (BMI) 33.1 Intake & Output: Intake and Output for Last 24 Hours 02/22/21 02/23/21 02/24/21 23:59 23:59 23:59 Intake Total 0 / 0 900 / 900 406.00 / 406.00 Output Total 4650 / 4650 400 / 650 250 / 250 Balance -4650 / -4650 500 / 250 156.00 / 156.00 Lab / Micro Data Result Diagrams: 02/24/21 05:04 02/24/21 05:04 Labs: Laboratory Results - last 24 hr 02/23/21 11:30: POC Glucose 310 H 02/23/21 17:09: POC Glucose 356 H 02/23/21 23:54: POC Glucose 339 H 02/24/21 05:04: WBC 9.0, RBC 4.16 L, Hgb 13.9, Hct 41.5, MCV 99.8 H, MCH 33.4 H, MCHC 33.5 D, RDW Std Deviation 50.7 H, RDW Coeff of Kusum 13.7, Plt Count 87 L, MPV 11.3, Immature Gran % (Auto) 0.600, Neut % (Auto) 89.7 H, Lymph % (Auto) 4.6 L, [place] % (Auto) 4.9, Eos % (Auto) 0.1, Baso % (Auto) 0.1, Absolute Neuts (auto) 8.1 H, Absolute Lymphs (auto) 0.41 L, Nucleated RBC % 0, Differential Comment SCANNED 02/24/21 05:04: Sodium 125 L, Potassium 4.4, Chloride 91 L, Carbon Dioxide 22.0, Anion Gap 12, BUN 49 H, Creatinine 1.88 H, Estim Creat Clear Calc 23.27, Est GFR (MDRD) Af Amer 34 L, Est GFR (MDRD) Non-Af 28 L, BUN/Creatinine Ratio 26.1 H, Glucose 332 H, Calcium 8.0 L 02/24/21 05:58: POC Glucose 334 H Micro: Microbiology 02/22/21 06:34 Urine Catheter - Catheter Urine Culture - Final Culture exhibits no growth. 02/22/21 07:30 Mucosa - Nose SARS-CoV-2 Antigen (Rapid) - Final SARS-CoV-2 (COVID 19) Radiography Diagnostic Testing: Radiology Impression Chest X-Ray 02/23/21 12:02 IMPRESSION: There is significant improvement since yesterday''s exam. Electronically Signed: Tunde Rich MD at 17:01 EDT , Service support , Rhythm Strip Rhythm Strip: Sinus Tach Rate: 109 Ectopy: None Physical Exam Const alert and oriented x3 Cardio Cardio Narrative: tachycardic on amiodarone drip Bladder / Kidney Exam: catheter in place Extremity no clubbing, cyanosis or edema Assessment & Plan Assessment/Plan (1) ESRD (end stage renal disease) on dialysis: PLAN: Continue on Monday, Monday, Monday schedule while Covid positive. Seen on dialysis, run on 3K. fluid removal as ros (2) Respiratory failure with hypoxia: PLAN: due to CHF now on 1L NC with good oxygenation (3) CHF (congestive heart failure): PLAN: Fluid removal on dialysis 4L yesterday. Check CXR. Oxygenation improved today off BIPAP. (4) COVID-19: (5) Hyponatremia: PLAN: Due to volume overload resolved (6) Thrombocytopenia: PLAN: Hold heparin on dialysis (7) Essential hypertension: PLAN: Stable BP (8) Anemia of chronic disease: PLAN: Hemoglobin 13.4 g. No need for TEMO therapy (9) Fever: PLAN: pending blood cx, r/o line sepsis. Afebrile
--- NOTE | 2021-02-24 11:28 | PN.HOSP_ITS ---
Subjective Subjective Patient seen and examined. She complained of feeling weak and tired. She went into afib with RVR overnight, and was started on cardizem drip and heparin drip. Cardiology consulted. Heart rate remains poorly controlled, and was in the 120s- 130s at time of review. She was having dialysis at time of review. Objective Data Objective Data Vital Signs: Vital Signs Temp Pulse Resp BP Pulse Ox 98.8 F 133 H 20 H 128/81 H 100 02/24/21 11:00 02/24/21 11:00 02/24/21 11:00 02/24/21 11:00 02/24/21 11:00 Oxygen Flow Rate (L/min) 1 Oxygen Delivery Method Nasal Cannula Weight: 199 lb 1.239 oz Body Mass Index (BMI) 33.1 Intake & Output: Intake and Output for Last 24 Hours 02/22/21 02/23/21 02/24/21 23:59 23:59 23:59 Intake Total 0 / 0 900 / 900 406.00 / 406.00 Output Total 4650 / 4650 400 / 650 250 / 250 Balance -4650 / -4650 500 / 250 156.00 / 156.00 Lab / Micro Data Result Diagrams: 02/24/21 05:04 02/24/21 05:04 Labs: Laboratory Results - last 24 hr 02/23/21 11:30: POC Glucose 310 H 02/23/21 17:09: POC Glucose 356 H 02/23/21 23:54: POC Glucose 339 H 02/24/21 05:04: WBC 9.0, RBC 4.16 L, Hgb 13.9, Hct 41.5, MCV 99.8 H, MCH 33.4 H, MCHC 33.5 D, RDW Std Deviation 50.7 H, RDW Coeff of Kusum 13.7, Plt Count 87 L, MPV 11.3, Immature Gran % (Auto) 0.600, Neut % (Auto) 89.7 H, Lymph % (Auto) 4.6 L, [place] % (Auto) 4.9, Eos % (Auto) 0.1, Baso % (Auto) 0.1, Absolute Neuts (auto) 8.1 H, Absolute Lymphs (auto) 0.41 L, Nucleated RBC % 0, Differential Comment SCANNED 02/24/21 05:04: Sodium 125 L, Potassium 4.4, Chloride 91 L, Carbon Dioxide 22.0, Anion Gap 12, BUN 49 H, Creatinine 1.88 H, Estim Creat Clear Calc 23.27, Est GFR (MDRD) Af Amer 34 L, Est GFR (MDRD) Non-Af 28 L, BUN/Creatinine Ratio 26.1 H, Glucose 332 H, Calcium 8.0 L 02/24/21 05:58: POC Glucose 334 H Micro: Microbiology 02/22/21 06:34 Urine Catheter - Catheter Urine Culture - Final Culture exhibits no growth. 02/22/21 07:30 Mucosa - Nose SARS-CoV-2 Antigen (Rapid) - Final SARS-CoV-2 (COVID 19) Radiography Diagnostic Testing: Radiology Impression Chest X-Ray 02/23/21 12:02 IMPRESSION: There is significant improvement since yesterday''s exam. Electronically Signed: Tunde Rich MD at 17:01 EDT , Service support , Rhythm Strip Rhythm Strip: Sinus Tach Rate: 109 Ectopy: None Physical Exam Const alert, oriented x3 and no apparent distress General Appearance: cooperative Exam Limitations: no limitations HEENT normocephalic, head/scalp atraumatic and hearing grossly normal bilaterally Head and Scalp: normocephalic Eyes PERRL, EOMs intact bilaterally and conjunctivae normal Neck no lymphadenopathy and supple Resp Resp Narrative: mildly diminished breath sounds bibasally, no wheezes or crackles. Remains on 1L of oxygen by nasal canula Cardio regular rate, regular rhythm, S1 normal heart sound, S2 normal heart sound and no murmurs GI normal to inspection, nondistended, normoactive bowel sounds, soft to palpation, non-tender and non-distended Extremity normal to inspection, full ROM and no clubbing, cyanosis or edema Skin no rashes or lesions noted Neuro CN's II-XII intact bilaterally and moves all extremities Neuro Narrative: alert but lethargic. Sensorium / Orientation: awake Psych Psych Narrative: lethargic Assessment & Plan Assessment/Plan (1) CHF (congestive heart failure): (2) Respiratory failure with hypoxia: (3) COVID-19: PLAN: #Acute on chronic hypoxic respiratory failure due to fluid overload from ESRD and acute on chronic heart failure as well as COVID infection * remains on 1L of oxygen. * SOB improved with dialysis * nephrology on board; on IV lasix * breathing treatment with bronchodilators * * #Nonstemi * EKG showed no acute ST changes * initial high sensitivity troponin was ~ 100, and trended up to ~ 1400 to a peak of 1644 * cardiology on board; advocated conservative management. * on atorvastatin. * #New onset afib with RVR * went into afib with RVR overnight * was started on heparin drip and cardizem drip. * has difficulty with IV access, so only has one peripheral line * cardizem drip held per cardiology; received a dose of amioarone bolus. Switched to PO eliquis 2.5mg bid * in light of nonstemi and now having new onset afib, will await further recommendations from cardiology. * on amiodarone drip. also received 2 doses of IV digoxin * #Acute on chronic HFpEF: as above. has EF of 55% #ESRD: on HD MWF. nephrology on board. having dialysis today #Hyperkalemia: resolved. K is 4.1. #Hypertension; on amlodipine and metoprolol. Stable #Type 2 Diabetes mellitus * ISS. Accuchecks ACHS * #Hyperlipidemia: on statin #ELENITA: on CPAP qhs #Hyponatremia: this is chronic. Will monitor #Pancytopenia: this is chronic. platelets are 87 today. #Seizure disorder: stable. Not on any seizure meds #Bipolar disorder: stable DVT prophylaxis; on SCDs. no anticoagulation o/a of thrombocytopenia. Code status: full code, unverified. * Disposition: will likely need placement. Patient is very frail and weak, and I am concerned about her ability to care for herself at home Charges/Coding Visit Charges Inpatient E&M: 28708 Subs Hosp L3
--- NOTE | 2021-02-24 12:13 | ECHOL_ITS ---
Reason For Study: AFIB Procedure This was a limited 2D transthoracic echocardiogram. The study was technically difficult. Pt sat upright in chair - could not lift self due to weakess from COVID. Exam performed portable in patient room. The exam was abbreviated due to the COVID 19 protocol. Left Ventricle Normal LV size. Left ventricular systolic function is normal. The estimated ejection fraction is 55 %. No regional wall motion abnormalities noted. Right Ventricle Normal RV size. Normal systolic function. Mitral Valve Normal mitral valve. Tricuspid Valve Normal tricuspid valve. Great Vessels Normal aortic root. The pulmonary artery is normal size. Pericardium/Pleural No pericardial effusion. MMode/2D Measurements & Calculations LVIDd: 4.1 cm IVSd: 1.1 cm LVIDs: 2.9 cm LVPWd: 1.0 cm FS: 29.6 % Doppler Measurements & Calculations PA V2 max: 140.0 cm/sec PI end-d radha: 170.8 cm/sec TR max radha: 285.5 cm/sec TR max P.6 mmHg ECHO/Echo, Limited Study Interpretation Summary Normal LV size. Left ventricular systolic function is normal. The estimated ejection fraction is 55 %. Compared to previous study, the left ventricular systolic function is the same. . Structurally normal valves. Ordering Physician: Martín Ramirez Referring Physician: DR LEO HIGGINS Performed By: Beti Morin, RDCS, RVT
--- NOTE | 2021-02-24 12:34 | DIALYSIS ---
Hemodialysis tx completed x 3.5 hours without complications. Pt heart rate remained elevated throughout tx despite Amioderone bolus and gtt. Fluid removed 2,600ml using crit-line monitor. Verbal report to ERICA Rudolph post tx.
[2021-02-24] MEDS: Heparin 10,000 UNITS/10 ML Vial IV (12:50)
[2021-02-24] MEDS: Furosemide 40 MG Tablet PO ×2 (12:50→16:42)
[2021-02-24] MEDS: APIXABAN 2.5 MG TABLET PO ×2 (12:51→20:55)
[2021-02-24] MEDS: Acetaminophen 325 MG Tablet 650 MG PO ×2 (13:14→20:55)
[2021-02-24 13:15] LABS: Bedside Glucose 211 mg/dL (70-110)
[2021-02-24 16:56] LABS: Bedside Glucose 265 mg/dL (70-110)
[2021-02-24 23:10] LABS: Bedside Glucose 299 mg/dL (70-110)
[2021-02-25] VITALS (32 sets, daily range): BP systolic 119–142; BP diastolic 52–74; PULSE 63–85; RESP 12–23; TEMP 35.5–37.5; O2SAT 95–100
[2021-02-25] MEDS: Acetaminophen 325 MG Tablet 650 MG PO (03:57)
[2021-02-25] MEDS: Insulin Lispro 100 UNIT/ML INSULN.PEN SC ×4 (05:15→23:13)
[2021-02-25 05:26] LABS: Bedside Glucose 334 mg/dL (70-110)
[2021-02-25 07:15] LABS: Absolute Lymphocyte Count 0.34 X10^3/uL (0.83-4.51); Absolute Neutrophil Count 5.5 X10^3/uL (2.0-7.7); Basophil# 0.02 X10^3/uL; Basophil% 0.3 % (0-1); Eosinophil# 0.03 X10^3/uL; Eosinophils% 0.5 % (0-5); Hematocrit 37.4 % (37-47); Hemoglobin 12.3 g/dL (12.0-15.0); Lymphocyte # 0.34 X10^3/ul (0.83-4.51); Lymphocyte % 5.5 % (19-41); Mean Corp Hgb Conc 32.9 g/dL (32-36); Mean Corpuscular Volume 100.3 fL (81-99); Mean Platelet Vol. 11.5 fl (6.2-12.0); Monocyte% 4.8 % (0-10); NRBC Flagged by Analyzer 0 % (0-5); Neutrophil # 5.53 X10^3/uL (2.7-7.7); Neutrophil % 88.7 % (47-70); POSITIVE COUNT YES; POSITIVE DIFFERENTIAL YES; Platelet Count 61 K/mm3 (150-450); RBC Distribution Width CV 13.3 % (11.6-14.6); RBC Distribution Width SD 49.5 fl (35.1-43.9); Red Blood Count 3.73 M/mm3 (4.2-5.4); White Blood Count 6.2 K/mm3 (4.4-11.0)
[2021-02-25 07:18] LABS: Differential Indicated SCAN CRITERIA MET
[2021-02-25 08:03] LABS: Anion Gap 8 (5-15); BUN 34 mg/dL (7-18); BUN/Creat Ratio 19.2 RATIO (10-20); Calcium,Total 7.9 mg/dL (8.5-10.1); Chloride 93 mmol/L (98-107); Creatinine, Serum 1.77 mg/dL (0.55-1.02); EST Glomerular Filtration Rate 30 mL/min (>60); Est Glom Filt Rate - Afr Amer 36 mL/min (>60); Estimated Creatinine Clearance 24.71 ml/min; Glucose 313 mg/dL (74-106); Potassium 4.1 mmol/L (3.5-5.1); Sodium Level 127 mmol/L (136-145)
[2021-02-25 08:07] LABS: Platelet Estimate MOD DEC (ADEQ)
--- NOTE | 2021-02-25 10:50 | CASEMGMT ---
Call from Delvin at [facility] and he is asking whether pt will be at [facility] for dialysis tomorrow. Per Dr. Shaw, no discharge date set yet for pt and pt will likely need placement and she is still COVID +. Delvin update, voices understanding. CM to follow. Marci MALDONADO CM
--- NOTE | 2021-02-25 10:55 | CASEMGMT ---
SW spoke with patient and let her know physician thinks she will need to go to a residential. She said the only one she will go to is [facility]. ANNIE told her that SW does not think she would be able to go there due to her being positive for COVID. ANNIE asked if she would like SW to talk with her family and she said to talk with her daughter. SW will check with therapy and call patient's daughter. ANNIE did call [facility] and run patient's situation past [facility]. She said they would go by the second test on the . Patient will not be here 14 days from the so [facility] will not work out. Katelynn Bui BULLDOZER ENGINEER RAYMOND
[2021-02-25] MEDS: APIXABAN 2.5 MG TABLET PO ×2 (11:22→20:51)
[2021-02-25] MEDS: Furosemide 40 MG Tablet PO ×2 (11:22→17:53)
[2021-02-25 11:46] LABS: Bedside Glucose 425 mg/dL (70-110)
[2021-02-25] MEDS: Amiodarone 360 MG in Dextrose 5% Viaflo Bag 192.8 ML 16.7 MG CONT INF (12:59)
--- NOTE | 2021-02-25 14:14 | CASEMGMT ---
ANNIE called patient's daughter, Beverly. SW let her know it is being recommended that patient go to a half-way facility for rehab. SW told her that SW spoke with patient this am and she said she would go to [facility]. SW told her that she cannot go there due to her being COVID positive. SW did call and check with [facility] and they cannot take her. ANNIE told her that some of the nursing homes in the area are working with the hospital to take some of the COVID patients so many days past their positive test. ANNIE told her [facility], [facility], and [facility]. ANNIE told her SW ran the situation past [facility] and they would be willing to take her. She said, I bet they would. Apparently patient did not have a very good experience with [facility] in the past. ANNIE then went over the facilities that are taking COVID patients and the ones that are considering patient's after 10 or 14 days. She said she will talk with patient when she gets off work and will call SW tomorrow. Katelynn ANDRADE
--- NOTE | 2021-02-25 15:00 | PN.HOSP_ITS ---
Subjective Subjective Patient seen and examined. She still looks weak and lethargic. She remains in afib, and is on both cardizem drip and amiodarone drip. Review of systems is otherwise negative. She has had a mild low grade fever, which peaked at 102.5F. Review of systems otherwise negative. Objective Data Objective Data Vital Signs: Vital Signs Temp Pulse Resp BP Pulse Ox 97 F L 74 14 130/63 H 96 02/25/21 11:32 02/25/21 11:32 02/25/21 11:32 02/25/21 11:32 02/25/21 12:01 Oxygen Flow Rate (L/min) 3 Oxygen Delivery Method Nasal Cannula Weight: 199 lb 1.239 oz Body Mass Index (BMI) 33.1 Intake & Output: Intake and Output for Last 24 Hours 02/23/21 02/24/21 02/25/21 23:59 23:59 23:59 Intake Total 900 / 900 999.53 / 1251.23 1298.05 / 1298.05 Output Total 400 / 650 500 / 550 150 / 150 Balance 500 / 250 499.53 / 701.23 1148.05 / 1148.05 Lab / Micro Data Result Diagrams: 02/25/21 06:40 02/25/21 06:40 Labs: Laboratory Results - last 24 hr 02/24/21 16:38: POC Glucose 265 H 02/24/21 23:02: POC Glucose 299 H 02/25/21 05:14: POC Glucose 334 H 02/25/21 06:40: WBC 6.2, RBC 3.73 L, Hgb 12.3, Hct 37.4, MCV 100.3 H, MCH 33.0 H , MCHC 32.9, RDW Std Deviation 49.5 H, RDW Coeff of Kusum 13.3, Plt Count 61 L, MPV 11.5, Immature Gran % (Auto) 0.200, Neut % (Auto) 88.7 H, Lymph % (Auto) 5.5 L, [place] % (Auto) 4.8, Eos % (Auto) 0.5, Baso % (Auto) 0.3, Absolute Neuts (auto) 5.5, Absolute Lymphs (auto) 0.34 L, Nucleated RBC % 0, Differential Comment COMMENT, Platelet Estimate MOD 02/25/21 06:40: Sodium 127 L, Potassium 4.1, Chloride 93 L, Carbon Dioxide 26.0, Anion Gap 8, BUN 34 H, Creatinine 1.77 H, Estim Creat Clear Calc 24.71, Est GFR (MDRD) Af Amer 36 L, Est GFR (MDRD) Non-Af 30 L, BUN/Creatinine Ratio 19.2, Glucose 313 H, Calcium 7.9 L 02/25/21 11:17: POC Glucose 425 H Micro: Microbiology 02/22/21 05:10 Blood Culture (Wb) - Right Hand Blood Culture - Preliminary No growth in 48 hours. 02/22/21 05:35 Blood Culture (Wb) - Right Hand Blood Culture - Preliminary No growth in 48 hours. 02/22/21 06:34 Urine Catheter - Catheter Urine Culture - Final Culture exhibits no growth. 02/22/21 07:30 Mucosa - Nose SARS-CoV-2 Antigen (Rapid) - Final SARS-CoV-2 (COVID 19) Rhythm Strip Rhythm Strip: Sinus Tach Rate: 109 Ectopy: None Physical Exam Const alert, oriented x3 and no apparent distress General Appearance: cooperative Exam Limitations: no limitations HEENT normocephalic, head/scalp atraumatic and hearing grossly normal bilaterally Eyes PERRL, EOMs intact bilaterally and conjunctivae normal Neck no lymphadenopathy and supple Resp Resp Narrative: mildly diminished breath sounds bibasally, no wheezes or crackles. Now on 3L of oxygen by nasal canula Cardio S1 normal heart sound, S2 normal heart sound and no murmurs Cardio Narrative: afib, rate controlled GI normal to inspection, nondistended, normoactive bowel sounds, soft to palpation, non-tender and non-distended Extremity normal to inspection, full ROM and no clubbing, cyanosis or edema Peripheral Pulses: Yes pulses 2+ throughout Skin no rashes or lesions noted Neuro CN's II-XII intact bilaterally and moves all extremities Neuro Narrative: alert but lethargic. Sensorium / Orientation: awake Psych Psych Narrative: lethargic Assessment & Plan Assessment/Plan (1) CHF (congestive heart failure): (2) Respiratory failure with hypoxia: (3) COVID-19: PLAN: #Acute on chronic hypoxic respiratory failure due to fluid overload from ESRD and acute on chronic heart failure as well as COVID infection * remains on 1L of oxygen. * SOB improved with dialysis * nephrology on board; on IV lasix * breathing treatment with bronchodilators * * #Nonstemi * EKG showed no acute ST changes * initial high sensitivity troponin was ~ 100, and trended up to ~ 1400 to a peak of 1644 * cardiology on board; advocated conservative management. * on atorvastatin. * #Afib with RVR * now on amiodarone and cardizem drirp * on eliquis 2.5mg bid * cardiology on board * 2D echo from august 2020 showed Ef of 55, with no evidence of diastolic dysfunction and no regional wall motion abnormalities noted * in light of new onset afib and nonstemi, will order repeat echo * * #Acute on chronic HFpEF: as above. has EF of 55%. #ESRD: on HD MWF. nephrology on board. having dialysis today #Hyperkalemia: resolved. #Hypertension: on amlodipine and metoprolol. Stable #Type 2 Diabetes mellitus * ISS. Accuchecks ACHS * #Hyperlipidemia: on statin #ELENITA: on CPAP qhs #Hyponatremia: this is chronic. Will monitor #Pancytopenia: this is chronic. platelets are 61 today. In light of her chronic thrombocytopenia, and weakness and risks of falls, I do think it is prudent to consider stopping eliquis. This puts her at an increased risk of a thrombotic event from afib, but I do think her weakness nd frailty increases her chances of falls, which will be compounded by her thrombocytopenia. #Seizure disorder: stable. Not on any seizure meds #Bipolar disorder: stable DVT prophylaxis; on SCDs. no anticoagulation o/a of thrombocytopenia. Code status: full code * Disposition: will likely need placement. Patient is very frail and weak, and I am concerned about her ability to care for herself at home Charges/Coding Visit Charges Inpatient E&M: 25156 Subs Hosp L3
[2021-02-25] MEDS: Amiodarone 200 MG Tablet PO (17:46)
[2021-02-25] MEDS: Metoprolol Tartrate 50 MG Tablet PO (17:46)
[2021-02-25 18:05] LABS: Bedside Glucose 436 mg/dL (70-110)
[2021-02-25] MEDS: Nystatin Powder 15gm Bottle 1 APPLIC TOPICAL (20:50)
[2021-02-25 23:46] LABS: Bedside Glucose 313 mg/dL (70-110)
[2021-02-26] VITALS (11 sets, daily range): BP systolic 102–136; BP diastolic 53–79; PULSE 65–92; RESP 18–20; TEMP 36.3–36.7; O2SAT 95–99
--- NOTE | 2021-02-26 03:11 | NURSING ---
Pt called this RN to room d/t her heart not feeling right. VS obtained and stable. This RN asked pt if it was okay to try to put an IV in since she wasn't feeling well and expressed concerns about her heart. Pt adamantly refused saying she didn't want to be poked and prodded again. ERICA Swift.
[2021-02-26] MEDS: Nystatin Powder 15gm Bottle 1 APPLIC TOPICAL ×2 (05:06→21:25)
[2021-02-26] MEDS: Insulin Lispro 100 UNIT/ML INSULN.PEN SC ×4 (05:06→21:26)
[2021-02-26] MEDS: Ondansetron 4 MG/2 ML Vial IV (05:17)
[2021-02-26] MEDS: 0.9% Saline Lock 10 ML Syringe IV (05:17)
[2021-02-26 06:10] LABS: Bedside Glucose 186 mg/dL (70-110)
[2021-02-26 07:43] LABS: Absolute Lymphocyte Count 0.72 X10^3/uL (0.83-4.51); Absolute Neutrophil Count 3.7 X10^3/uL (2.0-7.7); Basophil# 0.02 X10^3/uL; Basophil% 0.4 % (0-1); Eosinophil# 0.14 X10^3/uL; Eosinophils% 2.8 % (0-5); Hematocrit 37.6 % (37-47); Hemoglobin 12.6 g/dL (12.0-15.0); Lymphocyte # 0.72 X10^3/ul (0.83-4.51); Lymphocyte % 14.5 % (19-41); Mean Corp Hgb Conc 33.5 g/dL (32-36); Mean Corpuscular Hgb 33.3 pg (27.0-32.0); Mean Corpuscular Volume 99.5 fL (81-99); Mean Platelet Vol. 12.5 fl (6.2-12.0); Monocyte# 0.32 X10^3/uL; Monocyte% 6.5 % (0-10); NRBC Flagged by Analyzer 0 % (0-5); Neutrophil # 3.73 X10^3/uL (2.7-7.7); Neutrophil % 75.2 % (47-70); POSITIVE COUNT YES; POSITIVE MORPHOLOGY YES; Platelet Count 62 K/mm3 (150-450); RBC Distribution Width SD 47.8 fl (35.1-43.9); Red Blood Count 3.78 M/mm3 (4.2-5.4)
[2021-02-26 07:45] LABS: Differential Indicated SCAN CRITERIA MET
[2021-02-26 08:06] LABS: Anion Gap 6 (5-15); BUN 47 mg/dL (7-18); BUN/Creat Ratio 22.1 RATIO (10-20); Calcium,Total 7.9 mg/dL (8.5-10.1); Chloride 91 mmol/L (98-107); Creatinine, Serum 2.13 mg/dL (0.55-1.02); EST Glomerular Filtration Rate 24 mL/min (>60); Est Glom Filt Rate - Afr Amer 29 mL/min (>60); Estimated Creatinine Clearance 20.54 ml/min; Glucose 201 mg/dL (74-106); Sodium Level 125 mmol/L (136-145)
--- NOTE | 2021-02-26 09:46 | CASEMGMT ---
ANNIE called patient's daughter to see if she spoke with patient. She said she did and patient is adamant if she cannot go to [facility] she is going home. She won't go to [facility] based on the care she got last time she was there. ANNIE told her the physician is discharging her today. She will check with her mom and she will notify patient's . Katelynn ANDRADE
--- NOTE | 2021-02-26 09:55 | CASEMGMT ---
ANNIE spoke with physician and she is not discharging patient today. SW notified patient's daughter that patient will likely be discharged over the weekend. SW still has to talk with patient. Katelynn ANDRADE
[2021-02-26 10:24] LABS: Hepatitis B Surface Antigen Non-Reactive (Nonreactive)
[2021-02-26] MEDS: Metoprolol Tartrate 50 MG Tablet PO ×2 (11:54→21:25)
[2021-02-26] MEDS: APIXABAN 2.5 MG TABLET PO ×2 (11:55→21:25)
[2021-02-26] MEDS: Amiodarone 200 MG Tablet PO ×2 (11:55→17:45)
[2021-02-26] MEDS: Furosemide 40 MG Tablet PO ×2 (11:55→17:45)
--- NOTE | 2021-02-26 11:56 | PN.HOSP_ITS ---
Subjective Subjective Patient seen and examined. She was having dialysis at time of review. She had no active complaints and review of systems otherwise negative. She was weaned off amiodarone and Cardizem yesterday. She has otherwise remained hemodynamically stable. Review of systems otherwise negative. Objective Data Objective Data Vital Signs: Vital Signs Temp Pulse Resp BP Pulse Ox 98.1 F 92 18 102/55 L 95 02/26/21 09:00 02/26/21 11:54 02/26/21 09:00 02/26/21 11:45 02/26/21 09:00 Oxygen Flow Rate (L/min) 2 Oxygen Delivery Method Nasal Cannula Weight: 199 lb 1.239 oz Body Mass Index (BMI) 33.1 Intake & Output: Intake and Output for Last 24 Hours 02/24/21 02/25/21 02/26/21 23:59 23:59 23:59 Intake Total 999.53 / 1251.23 1865.45 / 2105.45 240 / 240 Output Total 500 / 550 150 / 350 300 / 300 Balance 499.53 / 701.23 1715.45 / 1755.45 -60 / -60 Lab / Micro Data Result Diagrams: 02/26/21 07:15 02/26/21 07:15 Labs: Laboratory Results - last 24 hr 02/25/21 17:44: POC Glucose 436 H 02/25/21 23:12: POC Glucose 313 H 02/26/21 05:05: POC Glucose 186 H 02/26/21 07:15: WBC 5.0, RBC 3.78 L, Hgb 12.6, Hct 37.6, MCV 99.5 H, MCH 33.3 H, MCHC 33.5, RDW Std Deviation 47.8 H, RDW Coeff of Kusum 13.0, Plt Count 62 L, MPV 12.5 H, Immature Gran % (Auto) 0.600, Neut % (Auto) 75.2 H, Lymph % (Auto) 14.5 L, [place] % (Auto) 6.5, Eos % (Auto) 2.8, Baso % (Auto) 0.4, Absolute Neuts (auto) 3.7, Absolute Lymphs (auto) 0.72 L, Nucleated RBC % 0 02/26/21 07:15: Sodium 125 L, Potassium 4.0, Chloride 91 L, Carbon Dioxide 28.0, Anion Gap 6, BUN 47 H, Creatinine 2.13 H, Estim Creat Clear Calc 20.54, Est GFR (MDRD) Af Amer 29 L, Est GFR (MDRD) Non-Af 24 L, BUN/Creatinine Ratio 22.1 H, Glucose 201 H, Calcium 7.9 L 02/26/21 07:15: Hep Bs Antigen Non-Reactive Micro: Microbiology 02/22/21 05:10 Blood Culture (Wb) - Right Hand Blood Culture - Preliminary No growth in 48 hours. 02/22/21 05:35 Blood Culture (Wb) - Right Hand Blood Culture - Preliminary No growth in 48 hours. 02/22/21 06:34 Urine Catheter - Catheter Urine Culture - Final Culture exhibits no growth. 02/22/21 07:30 Mucosa - Nose SARS-CoV-2 Antigen (Rapid) - Final SARS-CoV-2 (COVID 19) Radiography Diagnostic Testing: Radiology Impression Echocardiogram 02/24/21 12:13 Interpretation Summary Normal LV size. Left ventricular systolic function is normal. The estimated ejection fraction is 55 %. Compared to previous study, the left ventricular systolic function is the same.. Structurally normal valves. Ordering Physician: Martín Ramirez Referring Physician: DR LEO HIGGINS Performed By: Beti Morin, RDCS, RVT Rhythm Strip Rhythm Strip: Sinus Tach Rate: 109 Ectopy: None Physical Exam Const alert, oriented x3 and no apparent distress General Appearance: cooperative Exam Limitations: no limitations HEENT normocephalic, head/scalp atraumatic and hearing grossly normal bilaterally Head and Scalp: normocephalic Eyes PERRL, EOMs intact bilaterally and conjunctivae normal Neck no lymphadenopathy and supple Resp Resp Narrative: mildly diminished breath sounds bibasally, no wheezes or crackles. Now on 2L of oxygen by nasal canula Cardio S1 normal heart sound, S2 normal heart sound and no murmurs Cardio Narrative: afib, rate controlled GI normal to inspection, nondistended, normoactive bowel sounds, soft to palpation, non-tender and non-distended Extremity normal to inspection, full ROM and no clubbing, cyanosis or edema Skin no rashes or lesions noted Neuro CN's II-XII intact bilaterally and moves all extremities Neuro Narrative: alert but lethargic. Sensorium / Orientation: awake Psych Psych Narrative: lethargic Assessment & Plan Assessment/Plan (1) CHF (congestive heart failure): (2) Respiratory failure with hypoxia: (3) COVID-19: PLAN: #Acute on chronic hypoxic respiratory failure due to fluid overload from ESRD and acute on chronic heart failure as well as COVID infection * remains on 1L of oxygen. * SOB improved with dialysis * nephrology on board; on IV lasix * breathing treatment with bronchodilators * * #Nonstemi * EKG showed no acute ST changes * initial high sensitivity troponin was ~ 100, and trended up to ~ 1400 to a peak of 1644 * cardiology on board; advocated conservative management for now. To have cardiac cath once covid has resolved. * on atorvastatin. * #Afib with RVR * now off amiodarone and cardizem drips; on oral amiodarone and metoprolol * on eliquis 2.5mg bid * cardiology on board * 2D echo(02/25/2021) showed Ef of 55, with no evidence of diastolic dysfunction and no regional wall motion abnormalities noted; this is similar to previous echo from August 2020. * * #Acute on chronic HFpEF: as above. has EF of 55%. on oral lasix. #ESRD: on HD MWF. nephrology on board. for dialysis today #Hypertension: on metoprolol. IV hydralazine prn #Type 2 Diabetes mellitus * ISS. Accuchecks ACHS * #Hyperlipidemia: on statin #ELENITA: on CPAP qhs #Hyponatremia: this is chronic. Will monitor #Pancytopenia: this is chronic. platelets are 61 today. In light of her chronic thrombocytopenia, and weakness and risks of falls, I do think it is prudent to consider stopping eliquis. This puts her at an increased risk of a thrombotic event from afib, but I do think her weakness nd frailty increases her chances of falls, which will be compounded by her thrombocytopenia. #Seizure disorder: stable. Not on any seizure meds #Bipolar disorder: stable DVT prophylaxis; on eliquis 2.5mg bid. Code status: full code * Disposition:awaiting placement. Charges/Coding Visit Charges Inpatient E&M: 33383 Subs Hosp L2
--- NOTE | 2021-02-26 11:59 | NURSING ---
Morning medications given late at this time due to dialysis treatment
[2021-02-26 12:05] LABS: Bedside Glucose 184 mg/dL (70-110)
--- NOTE | 2021-02-26 13:42 | DIALYSIS ---
Hemodialysis x3.5 hours completed at 1200 on a 3K bath, tolerated well, UF 3000mL, hypotension with greater UF goal, accessed via right chest tunneled dialysis catheter, worked fair, positional, intermittent high arterial pressure alarms, catheter works best when patient resting, sleeping, seems to alarm when awake, moving, coughing or upset, next treatment planned for Monday
--- NOTE | 2021-02-26 15:50 | CASEMGMT ---
SW spoke with patient about going to a correction. ANNIE told her she is not able to go to [place] since she is COVID positive. ANNIE told her [facility] said they would be able to take her possibly and she would be able to get dialysis at [facility] after next week. ANNIE told her next week she would have to still go to [facility] since she has COVID. ANNIE asked if she is willing to go to [facility] and she said yes. ANNIE called patient's daughter, Beverly and let her know patient agreed to [facility]. ANNIE told her that she will have to go to [facility] next week but then after that she can have her dialysis at [facility]. She is now End Stage Renal Disease. ANNIE called Valentina at [facility] with referral and also faxed referral. Katelynn Bui BORING MACHINE FEEDERGianna ANDRADE
--- NOTE | 2021-02-26 16:35 | CASEMGMT ---
ANNIE spoke with Valentina at [facility] and they can accept patient. Convalescent completed on HENS. Green sheet on chart. Plan: d/c to [facility] under skilled level of care on a convalescent stay. Katelynn ANDRADE
[2021-02-26 17:56] LABS: Bedside Glucose 219 mg/dL (70-110)
[2021-02-26 21:46] LABS: Bedside Glucose 299 mg/dL (70-110)
[2021-02-27] VITALS (9 sets, daily range): BP systolic 122–144; BP diastolic 64–73; PULSE 62–69; RESP 12–18; TEMP 36.6–36.9; O2SAT 95–98
[2021-02-27] MEDS: Ondansetron 4 MG/2 ML Vial IV (01:30)
[2021-02-27] MEDS: 0.9% Saline Lock 10 ML Syringe IV (01:30)
[2021-02-27] MEDS: Insulin Lispro 100 UNIT/ML INSULN.PEN SC ×2 (06:40→11:48)
[2021-02-27 06:50] LABS: Bedside Glucose 289 mg/dL (70-110)
[2021-02-27 07:30] LABS: Absolute Lymphocyte Count 0.79 X10^3/uL (0.83-4.51); Absolute Neutrophil Count 3.2 X10^3/uL (2.0-7.7); Basophil# 0.03 X10^3/uL; Basophil% 0.7 % (0-1); Eosinophil# 0.12 X10^3/uL; Eosinophils% 2.7 % (0-5); Hematocrit 38.3 % (37-47); Hemoglobin 12.5 g/dL (12.0-15.0); Lymphocyte # 0.79 X10^3/ul (0.83-4.51); Mean Corp Hgb Conc 32.6 g/dL (32-36); Mean Corpuscular Hgb 33.2 pg (27.0-32.0); Mean Corpuscular Volume 101.9 fL (81-99); Mean Platelet Vol. 12.3 fl (6.2-12.0); Monocyte# 0.25 X10^3/uL; Monocyte% 5.7 % (0-10); NRBC Flagged by Analyzer 0 % (0-5); Neutrophil # 3.18 X10^3/uL (2.7-7.7); Neutrophil % 72.4 % (47-70); POSITIVE COUNT YES; POSITIVE MORPHOLOGY YES; Platelet Count 71 K/mm3 (150-450); RBC Distribution Width CV 13.1 % (11.6-14.6); RBC Distribution Width SD 49.1 fl (35.1-43.9); Red Blood Count 3.76 M/mm3 (4.2-5.4); White Blood Count 4.4 K/mm3 (4.4-11.0)
[2021-02-27 07:51] LABS: Differential Indicated SCAN CRITERIA MET
[2021-02-27 07:58] LABS: Anion Gap 6 (5-15); BUN 34 mg/dL (7-18); BUN/Creat Ratio 16.4 RATIO (10-20); Calcium,Total 7.9 mg/dL (8.5-10.1); Chloride 94 mmol/L (98-107); Creatinine, Serum 2.07 mg/dL (0.55-1.02); EST Glomerular Filtration Rate 25 mL/min (>60); Est Glom Filt Rate - Afr Amer 30 mL/min (>60); Estimated Creatinine Clearance 21.13 ml/min; Glucose 299 mg/dL (74-106); Potassium 4.2 mmol/L (3.5-5.1); Sodium Level 128 mmol/L (136-145)
[2021-02-27 08:08] LABS: Differential Comment SCANNED; Platelet Estimate MKD DEC (ADEQ)
[2021-02-27] MEDS: Metoprolol Tartrate 50 MG Tablet PO (09:08)
[2021-02-27] MEDS: APIXABAN 2.5 MG TABLET PO (09:08)
[2021-02-27] MEDS: Amiodarone 200 MG Tablet PO (09:08)
[2021-02-27] MEDS: Furosemide 40 MG Tablet PO (09:08)
--- NOTE | 2021-02-27 09:33 | PCM.PN.CARD ---
Subjective Subjective Patient seen and evaluated. Appears to be stable. Requiring less oxygen. Objective Data Vital Signs: Vital Signs Temp Pulse Resp BP Pulse Ox 98.0 F 64 12 131/64 H 95 02/27/21 09:06 02/27/21 09:19 02/27/21 09:06 02/27/21 09:08 02/27/21 09:06 Oxygen Flow Rate (L/min) 1 Oxygen Delivery Method Room Air Weight: 199 lb 1.239 oz Body Mass Index (BMI) 33.1 Intake & Output: Intake and Output for Last 24 Hours 02/25/21 02/26/21 02/27/21 23:59 23:59 23:59 Intake Total 1865.45 / 2105.45 720 / 720 Output Total 150 / 350 3400 / 3400 100 / 100 Balance 1715.45 / 1755.45 -2680 / -2680 -100 / -100 Lab / Micro Data Result Diagrams: 02/27/21 06:56 02/27/21 06:56 Labs: Laboratory Results - last 24 hr 02/26/21 07:15: Hep Bs Antigen Non-Reactive 02/26/21 11:53: POC Glucose 184 H 02/26/21 17:44: POC Glucose 219 H 02/26/21 21:18: POC Glucose 299 H 02/27/21 06:38: POC Glucose 289 H 02/27/21 06:56: WBC 4.4, RBC 3.76 L, Hgb 12.5, Hct 38.3, MCV 101.9 H, MCH 33.2 H, MCHC 32.6, RDW Std Deviation 49.1 H, RDW Coeff of Kusum 13.1, Plt Count 71 L, MPV 12.3 H, Immature Gran % (Auto) 0.500, Neut % (Auto) 72.4 H, Lymph % (Auto) 18.0 L, [place] % (Auto) 5.7, Eos % (Auto) 2.7, Baso % (Auto) 0.7, Absolute Neuts (auto) 3.2, Absolute Lymphs (auto) 0.79 L, Nucleated RBC % 0, Differential Comment SCANNED, Platelet Estimate MKD DEC 02/27/21 06:56: Sodium 128 L, Potassium 4.2, Chloride 94 L, Carbon Dioxide 28.0, Anion Gap 6, BUN 34 H, Creatinine 2.07 H, Estim Creat Clear Calc 21.13, Est GFR (MDRD) Af Amer 30 L, Est GFR (MDRD) Non-Af 25 L, BUN/Creatinine Ratio 16.4, Glucose 299 H, Calcium 7.9 L Micro: Microbiology 02/22/21 05:10 Blood Culture (Wb) - Right Hand Blood Culture - Final No growth in 5 days. 02/22/21 05:35 Blood Culture (Wb) - Right Hand Blood Culture - Final No growth in 5 days. Rhythm Strip Rhythm Strip: Sinus Tach Rate: 109 Ectopy: None Cardiology Labs/Tests 02/27/21 06:56: WBC 4.4, RBC 3.76 L, Hgb 12.5, Hct 38.3, MCV 101.9 H, MCH 33.2 H, MCHC 32.6, Plt Count 71 L, MPV 12.3 H, Immature Gran % (Auto) 0.500, Neut % (Auto) 72.4 H, Lymph % (Auto) 18.0 L, [place] % (Auto) 5.7, Eos % (Auto) 2.7, Baso % (Auto) 0.7, Absolute Neuts (auto) 3.2, Nucleated RBC % 0 02/27/21 06:56: Sodium 128 L, Potassium 4.2, Chloride 94 L, Carbon Dioxide 28.0, Anion Gap 6, BUN 34 H, Creatinine 2.07 H, Est GFR (MDRD) Af Amer 30 L, Est GFR (MDRD) Non-Af 25 L, BUN/Creatinine Ratio 16.4, Glucose 299 H, Calcium 7.9 L Rhythm: EKG: ECHO: Stress Test: Cardiac Cath: PCI: CT Surgery: Holter monitor: EPS: PPM: CXR: Chest CT Scan: Physical Exam Const Orientation / Consciousness: awake HEENT normocephalic Eyes conjunctivae normal Chest inspection of chest normal Resp Auscultation: diminished lung sounds Cardio regular rate and regular rhythm Assessment & Plan Assessment/Plan (1) Non-ST elevation (NSTEMI) myocardial infarction: PLAN: She has developed a non-ST elevation myocardial infarction. At this time we will continue to manage her with conservative therapy while treating the COVID-19 infection. She does not have any acute EKG changes and does not have any acute chest pain at this time. No plans for any urgent catheterization at this time. (2) CHF (congestive heart failure): PLAN: Her last echocardiogram had demonstrated preserved left ventricular systolic function. My recommendation is for us to continue the current medical therapy with no major changes at this time. She appears to be diuresing quite effectively as well as has just received dialysis. (3) COVID-19: PLAN: She appears to be recovering from the above. (4) Essential hypertension: PLAN: Her blood pressure is much more stable now and I think that we can restart her beta-carson. Thank you for allowing me to participate in the care of your patient. Please don't hesitate to call if any issues arise.
[2021-02-27 12:05] LABS: Bedside Glucose 369 mg/dL (70-110)
--- NOTE | 2021-02-27 12:17 | DS.PCM_ITS ---
Providers Date of Admission: 02/22/21 Primary Care Physician: Dr. Bailey Toribio MD Consultations 02/22/21 09:25 Consult: Nephrology Routine Consulting Provider: Christine Steward Reason for Consult: ESRD with fluid overload, needs dialysis EMERGENT Consult: No Notified: Yes Date Notified: 02/22/21 Time Notified: 09:30 Method of Notification: Text 02/22/21 12:56 Consult: Cardiology Routine Consulting Provider: Martín Ramirez Reason for Consult: nonstemi EMERGENT Consult: No Notified: Yes Date Notified: 02/22/21 Time Notified: 12:56 Method of Notification: Text Reason For Visit: CHR,RESP FAILURE,HYPOXIA,COVID,CKD,COPD,DIALYSIS Diagnosis Discharge Diagnosis (1) Non-ST elevation (NSTEMI) myocardial infarction: Status: Acute Code(s): I21.4 - Non-ST elevation (NSTEMI) myocardial infarction (2) CHF (congestive heart failure): Status: Acute Code(s): I50.9 - Heart failure, unspecified (3) COVID-19: Status: Acute Code(s): U07.1 - COVID-19 (4) Essential hypertension: Status: Acute Code(s): I10 - Essential (primary) hypertension Medications at Discharge Home Medications insulin lispro 12 unit SUBCUT TIDCM 06/10/19 atorvastatin 10 mg PO QHS 09/06/19 ergocalciferol (vitamin D2) 50,000 unit PO KELLOGG 09/06/19 escitalopram oxalate 10 mg PO DAILY 05/05/20 amlodipine 10 mg PO DAILY 09/29/20 aspirin 81 mg PO DAILY 09/29/20 Acetaminophen [Tylenol] 650 mg PO Q4H PRN 10/13/20 insulin glargine 16 unit SQ BID 10/13/20 isosorbide mononitrate 30 mg PO DAILY 10/13/20 lisinopril 10 mg PO DAILY 10/13/20 metoprolol succinate 75 mg PO DAILY 10/13/20 trazodone 50 mg tablet 25 mg PO QHS 12/10/20 B-complex with vitamin C 1 tab PO DAILY 01/20/21 hydrocodone-acetaminophen 1 tab PO Q4H PRN PRN 2 Days #8 tablet 01/20/21 midodrine See Rx Instructions .ROUTE .COMPLEX 01/20/21 Vimpat 100 mg PO BID 02/22/21 dexamethasone 6 mg PO DAILY 02/22/21 fexofenadine [Veronica Allergy] 60 mg PO DAILY 02/22/21 fluticasone propionate 2 spray INTRANASAL DAILY 02/22/21 gabapentin 200 mg PO BID 02/22/21 amiodarone 200 mg PO BID #60 tab 02/27/21 Hospital Course Operations None Procedures 2-D Echocardiogram Summary of Care Provided Minutes Spent on Discharge: 50 Hospital Course: JAYDA WYATT, is a 75 F with an extensive PMH as outlined who was admitted with a complaint of shortness of breath. SHe was recently diagnosed with covid, and was in hospital for acute exacerbation of heart failure. She was discharged home a few days ago, and presents again today for shortness of breath. Her sats were 78% on room air. Per ED physician, her noted that she had been getting more short of breath over the last several days and so she was brought into the ED. At time I reviewed patient, she was on BiPAP and quite lethargic so was unable to get any history or do any review of systems. CBC showed WBC of 7.7 hemoglobin of 13.4 and platelets of 86. Chemistry was significant for sodium of 130 and potassium of 5.4 as well as creatinine of 1.71. Initial troponin was 1156 and trended up to 1423 subsequently. Chest x- ray showed evidence of fluid overload and heart failure though EKG showed no acute ST changes and urinalysis was also negative. She was admitted to be managed for acute on chronic heart failure as well as fluid overload from ESRD. She was also managed for non-STEMI on account of elevated troponins. Cardiology was consulted, and she was started on IV lasix. Nephrology was also consulted for urgent dialysis to help with fluid overload. She was also managed for acute hypoxic respiratory failure due to heart failure. Of note, she also tested positive again for COVID during this admission. Patient was dialyzed by nephrology and his shortness of breath improved and she was weaned off of BiPAP onto oxygen by nasal cannula. Hospital stay was also complicated by hyperkalemia which resolved with dialysis. Cardiology was consulted and advocated conservative management in light of patient being closed with positive with non-STEMI. Plan was for her to get cardiac cath on outpatient basis once Covid had resolved. Hospital course was complicated by new onset A. fib with RVR which required amiodarone drip and then Cardizem drip in addition. Patient was started on heparin drip initially but due to IV axis difficulty, was switched to p.o. Eliquis 2.5 mg twice daily. A. fib with RVR resolved patient was transitioned to oral amiodarone. Patient shortness of breath gradually improved. She was skilled as needing to go to a rehab facility on account of her weakness and frailty. Of note, patient had chronically low platelets which kept on dropping and was at a walker of 61. Plan was therefore to stop long-term Eliquis due to risk of falls from her frailty and increased risk of bleeding while son blood thinners. Patient was counseled that this could lead to an increased risk of thromboembolic event from her A. fib but this risk is outweighed by her risk of bleeding. Patient was gradually weaned off of oxygen onto room air. She remained stable and was discharged to a assisted facility namely [facility] on 02/27/2021. She is to follow- up with her primary care doctor and to follow-up with cardiology. Since patient's original Covid positive test was 02/13/2021. She is to remain in quarantine until April 01, 2021 to complete 20-day quarantine period. Patient seen and examined prior to discharge. Patient was frail but had no active complaints today. Review systems otherwise negative. Labs and vitals reviewed. Home medications reviewed and reconciled. Physical Exam Const alert, oriented x3 and no apparent distress General Appearance: cooperative and comfortable Exam Limitations: no limitations HEENT normocephalic, head/scalp atraumatic and hearing grossly normal bilaterally Eyes PERRL, EOMs intact bilaterally and conjunctivae normal Neck no lymphadenopathy and supple Resp Resp Narrative: mildly diminished breath sounds bibasally, no wheezes or crackles. On room air. Cardio S1 normal heart sound, S2 normal heart sound and no murmurs Cardio Narrative: afib, rate controlled GI normal to inspection, nondistended, normoactive bowel sounds, soft to palpation, non-tender and non-distended Extremity normal to inspection, full ROM and no clubbing, cyanosis or edema Skin no rashes or lesions noted Neuro CN's II-XII intact bilaterally and moves all extremities Neuro Narrative: alert but lethargic. Sensorium / Orientation: awake Psych Psych Narrative: lethargic Weight / BMI Weight Weight: 199 lb 1.239 oz Body Mass Index (BMI) 33.1 ABG / Lab / Microbiology Data Result Diagrams: 02/27/21 06:56 02/27/21 06:56 Laboratory: Laboratory Results - last 24 hr 02/26/21 17:44: POC Glucose 219 H 02/26/21 21:18: POC Glucose 299 H 02/27/21 06:38: POC Glucose 289 H 02/27/21 06:56: WBC 4.4, RBC 3.76 L, Hgb 12.5, Hct 38.3, MCV 101.9 H, MCH 33.2 H , MCHC 32.6, RDW Std Deviation 49.1 H, RDW Coeff of Kusum 13.1, Plt Count 71 L, MPV 12.3 H, Immature Gran % (Auto) 0.500, Neut % (Auto) 72.4 H, Lymph % (Auto) 18.0 L, [place] % (Auto) 5.7, Eos % (Auto) 2.7, Baso % (Auto) 0.7, Absolute Neuts (auto) 3.2, Absolute Lymphs (auto) 0.79 L, Nucleated RBC % 0, Differential Comment SCANNED, Platelet Estimate MKD 02/27/21 06:56: Sodium 128 L, Potassium 4.2, Chloride 94 L, Carbon Dioxide 28.0, Anion Gap 6, BUN 34 H, Creatinine 2.07 H, Estim Creat Clear Calc 21.13, Est GFR (MDRD) Af Amer 30 L, Est GFR (MDRD) Non-Af 25 L, BUN/Creatinine Ratio 16.4, Glucose 299 H, Calcium 7.9 L 02/27/21 11:39: POC Glucose 369 H Microbiology: Microbiology 02/22/21 05:10 Blood Culture (Wb) - Right Hand Blood Culture - Final No growth in 5 days. 02/22/21 05:35 Blood Culture (Wb) - Right Hand Blood Culture - Final No growth in 5 days. 02/22/21 06:34 Urine Catheter - Catheter Urine Culture - Final Culture exhibits no growth. 02/22/21 07:30 Mucosa - Nose SARS-CoV-2 Antigen (Rapid) - Final SARS-CoV-2 (COVID 19) D/C Instructions Discharge Diet: Low fat / Low cholesterol Discharge Activity: Return to Normal Activity Weight Bearing Status: Weight bearing as tolerated Call your doctor if you observe: Fever of 101 or Higher, Shortness of breath, Dizziness, Swelling in the ankles, Chest pain, Increased palpitations (irregular heartbeat) and Uncontrolled pain Meaningful Use Info Meaningful Use Diagnoses (Choose all that apply): AMI AMI/Post PCI/Angioplasty Aspirin given w/in 24hrs of arrival?: Yes ASA at discharge?: Yes Antiplatelet Therapy at Discharge:: No Statins at discharge?: Yes Clyde/ARB at discharge?: No Reason Clyde/ARB not ordered:: Worsening renal function and Hyperkalemia Beta Nataliia at discharge?: Yes Done w/ Acute IL measure.: Yes Documented LVEF (%): 55 CHF CLYDE/ARB ordered at discharge?: No Reason CLYDE/ARB not ordered?: Worsening renal disease Documented LVEF (%): 55 Discharge Plan Admission Admit Date/Time: 02/22/21 09:25 Primary Reason for Your Visit: acute on chronic heart failure, nonstemi, afib with rvr Attending Provider: Mary Shaw Primary Care Provider: Bailey Toribio Consulting Providers: Christine Steward ; Martín Ramirez Instructions Patient Instructions: Coping with Heart Failure, ED AFIB, Caring for Someone Who Has COVID-19 Discharge Orders/Prescriptions Prescriptions: New amiodarone 200 mg tablet 200 mg PO BID Qty: 60 RF: 1 Continued trazodone 50 mg tablet 25 mg PO QHS RF: 0 insulin lispro 100 UNIT/ML insulin pen 12 unit subcut TIDCM RF: 0 atorvastatin 10 MG tablet 10 mg PO QHS RF: 0 ergocalciferol (vitamin D2) 50,000 UNIT capsule 50,000 unit PO KELLOGG RF: 0 escitalopram oxalate 10 MG tablet 10 mg PO DAILY RF: 0 aspirin 81 MG tablet,chewable 81 mg PO DAILY RF: 0 amlodipine 10 MG tablet 10 mg PO DAILY RF: 0 Acetaminophen [Tylenol] 325 MG tablet 650 mg PO Q4H PRN (Reason: Pain 1-10 Or Fever) RF: 0 metoprolol succinate 50 MG tablet extended release 24 hr 75 mg PO DAILY RF: 0 isosorbide mononitrate 30 MG tablet extended release 24 hr 30 mg PO DAILY RF: 0 lisinopril 10 MG tablet 10 mg PO DAILY RF: 0 insulin glargine 100 UNIT/ML insulin pen 16 unit SQ BID RF: 0 midodrine 5 mg Tablet See Rx Instructions .ROUTE .COMPLEX RF: 0 B-complex with vitamin C Tablet 1 tab PO DAILY RF: 0 hydrocodone-acetaminophen 1 TABLET tablet 1 tab PO Q4H PRN PRN (Reason: Pain) 2 Days Qty: 8 RF: 0 fexofenadine [Veronica Allergy] 60 mg Tablet 60 mg PO DAILY RF: 0 gabapentin 100 mg capsule 200 mg PO BID RF: 0 fluticasone propionate 50 mcg/actuation [place],Suspension 2 spray INTRANASAL DAILY RF: 0 Vimpat 100 mg tablet 100 mg PO BID RF: 0 dexamethasone 6 mg tablet 6 mg PO DAILY RF: 0 Discontinued levofloxacin 250 mg tablet 250 mg PO DAILY RF: 0 Referrals / Follow Up: Bailey Toribio MD [Primary Care Provider] - Within 2 Weeks Christine Steward DO [STAFF PHYSICIAN] - Within 1 Week Martín Ramirez MD [STAFF PHYSICIAN] - Within 2 Weeks Disposition Disposition (needs filled in before D/C Order can be placed): Assisted Facility Charges/Coding Visit Charges Inpatient E&M: 11612 Disch Hosp
--- NOTE | 2021-02-27 13:08 | NURSING ---
Report called to [facility].
--- NOTE | 2021-02-27 13:11 | PCA ---
Faxed all D/C paperwork to [facility]. Spoke with patients daughter Beverly on the phone and notified her of pickup time set for 1330. Gave her the number to [facility] as well.
== END 2021-02-27 14:43 | disposition skilled nursing facility (03) | DRG 640 ==
LOC: ED 05:44 → PCU 09:50
PROVIDERS: Internal Medicine Cardiovascular Disease; Internal Medicine Nephrology; Admitting Provider Student in an Organized Health Care Education/Training Program; Emergency Provider Emergency Medicine; PCP Internal Medicine; Visit Provider Student in an Organized Health Care Education/Training Program
DX: E87.79 Other fluid overload (principal); N18.6 End stage renal disease; I50.33 Acute on chronic diastolic (congestive) heart failure; J96.01 Acute respiratory failure with hypoxia; I21.4 Non-ST elevation (NSTEMI) myocardial infarction; U07.1 COVID-19; I13.2 Hypertensive heart and chronic kidney disease with heart failure and with stage 5 chronic kidney disease, or end stage renal disease; Z68.41 Body mass index [BMI] 40.0-44.9, adult; D61.818 Other pancytopenia; E11.22 Type 2 diabetes mellitus with diabetic chronic kidney disease; E87.1 Hypo-osmolality and hyponatremia; E87.5 Hyperkalemia; D63.8 Anemia in other chronic diseases classified elsewhere; Z91.11 Patient's noncompliance with dietary regimen; I50.82 Biventricular heart failure; R50.9 Fever, unspecified; I48.91 Unspecified atrial fibrillation; J44.9 Chronic obstructive pulmonary disease, unspecified; I36.1 Nonrheumatic tricuspid (valve) insufficiency; I27.21 Secondary pulmonary arterial hypertension; E11.42 Type 2 diabetes mellitus with diabetic polyneuropathy; E11.65 Type 2 diabetes mellitus with hyperglycemia; M06.9 Rheumatoid arthritis, unspecified; E78.5 Hyperlipidemia, unspecified; K21.9 Gastro-esophageal reflux disease without esophagitis; G47.33 Obstructive sleep apnea (adult) (pediatric); F44.81 Dissociative identity disorder; F31.9 Bipolar disorder, unspecified; F41.0 Panic disorder [episodic paroxysmal anxiety]; F41.1 Generalized anxiety disorder; E66.01 Morbid (severe) obesity due to excess calories; Z99.2 Dependence on renal dialysis; Z79.4 Long term (current) use of insulin; Z79.82 Long term (current) use of aspirin; Z79.899 Other long term (current) drug therapy; Z86.14 Personal history of Methicillin resistant Staphylococcus aureus infection; Z86.73 Personal history of transient ischemic attack (TIA), and cerebral infarction without residual deficits; Z87.891 Personal history of nicotine dependence
CPT/HCPCS: 36415; 71045; 80048; 80053; 80299; 81001; 82962; 83605; 83880; 84484; 85025; 85610; 85730; 87040; 87086; 87340; 87426; 90937; 93005; 93308; 94002; 94003; 97110; 97163; 97166; 97530; 97535; 99251; 99285; A4216; G0257; G0463; J1940; J2405

== ENCOUNTER 2021-03-01 16:24 | Observation (INO) | payer MEDICARE, MEDICAID, SELFPAY ==
[2021-03-01 16:25] VITALS: BP 119/55; PULSE 58; RESP 17; TEMP 36.4; O2SAT 96; BMI 38.9
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
[2021-03-01 16:52] LABS: Absolute Lymphocyte Count 0.56 X10^3/uL (0.83-4.51); Absolute Neutrophil Count 8.5 X10^3/uL (2.0-7.7); Basophil# 0.01 X10^3/uL; Basophil% 0.1 % (0-1); Hematocrit 31.9 % (37-47); Hemoglobin 10.8 g/dL (12.0-15.0); Lymphocyte # 0.56 X10^3/ul (0.83-4.51); Lymphocyte % 5.9 % (19-41); Mean Corp Hgb Conc 33.9 g/dL (32-36); Mean Corpuscular Hgb 33.2 pg (27.0-32.0); Mean Corpuscular Volume 98.2 fL (81-99); Mean Platelet Vol. 11.7 fl (6.2-12.0); Monocyte# 0.27 X10^3/uL; Monocyte% 2.9 % (0-10); NRBC Flagged by Analyzer 0 % (0-5); Neutrophil # 8.51 X10^3/uL (2.7-7.7); Neutrophil % 90.4 % (47-70); POSITIVE COUNT YES; POSITIVE DIFFERENTIAL YES; Platelet Count 87 K/mm3 (150-450); RBC Distribution Width CV 12.7 % (11.6-14.6); RBC Distribution Width SD 45.7 fl (35.1-43.9); Red Blood Count 3.25 M/mm3 (4.2-5.4); White Blood Count 9.4 K/mm3 (4.4-11.0)
[2021-03-01 16:54] LABS: Differential Indicated SCAN CRITERIA MET
[2021-03-01 17:11] LABS: Anion Gap 6 (5-15); BUN 70 mg/dL (7-18); BUN/Creat Ratio 25.9 RATIO (10-20); Chloride 91 mmol/L (98-107); EST Glomerular Filtration Rate 18 mL/min (>60); Est Glom Filt Rate - Afr Amer 22 mL/min (>60); Estimated Creatinine Clearance 12.93 ml/min; Glucose 421 mg/dL (74-106); Potassium 5.7 mmol/L (3.5-5.1); Sodium Level 124 mmol/L (136-145)
[2021-03-01 17:24] LABS: Differential Comment SCANNED
[2021-03-01 17:26] LABS: Bedside Glucose 411 mg/dL (70-110)
[2021-03-01 19:02] VITALS: BP 125/75; PULSE 54; RESP 17; O2SAT 97
[2021-03-01] MEDS: Insulin Lispro 100 UNIT/ML INSULN.PEN 10 UNIT SC (19:13)
[2021-03-01 19:21] LABS: Bedside Glucose 346 mg/dL (70-110)
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
[2021-03-01 20:55] LABS: Bedside Glucose 271 mg/dL (70-110)
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
[2021-03-01 22:47] VITALS: BP 126/62; PULSE 49; RESP 12; O2SAT 99
[2021-03-01 23:21] VITALS: BMI 37.3
[2021-03-01 23:22] VITALS: BP 129/74; PULSE 49; RESP 15; TEMP 37.1; O2SAT 97
[2021-03-01 23:25] VITALS: BP 127/61; PULSE 54; RESP 18; TEMP 36.4; O2SAT 94
[2021-03-01] MEDS: 0.9% Normal Saline 1,000 ML 100 ML IV (23:59)
[2021-03-01] MEDS: 0.9% Saline Lock 10 ML Syringe IV (23:59)
[2021-03-02] MEDS: Atorvastatin Calcium 10 MG Tablet PO (00:05)
[2021-03-02] MEDS: Amiodarone 200 MG Tablet PO ×2 (00:05→13:22)
[2021-03-02] MEDS: Gabapentin 100 MG Capsule 200 MG PO (00:06)
[2021-03-02] MEDS: Insulin Lispro 100 UNIT/ML INSULN.PEN SC ×2 (00:15→17:13)
[2021-03-02] MEDS: Lacosamide 100 MG Tablet PO (00:16)
[2021-03-02 00:46] LABS: Bedside Glucose 213 mg/dL (70-110)
--- NOTE | 2021-03-02 01:12 | PCS.PANDOC ---
PANDEMIC DOCUMENTATION INITIATED: Date: 03/01/2021 Time: 2374
[2021-03-02 04:52] VITALS: BP 131/56; PULSE 50; RESP 18; TEMP 36.8; O2SAT 98
[2021-03-02 05:01] LABS: Mucous, Urine 0 SEEN /hpf (<or=2+); Red Blood Cells-Urine 0 SEEN /hpf (0-5)
[2021-03-02 05:02] LABS: Color, Urine Yellow (Yellow); Glucose, Dipstick 1000 mg/dl (Normal); Ketone-Dipstick Negative (Negative); Leukocyte Esterase-Dipstick 25 /ul (Negative); Nitrite-Dipstick Negative (Negative); Occult Blood-Urine 10 /ul (Negative); Protein-Dipstick 100 mg/dl (Negative); Specific Gravity, Urine 1.015 (1.002-1.030); Urine Bilirubin Dipstick Negative (Negative); Urine Clarity Sl. Cloudy (Clear); Urine Urobilinogen Normal (Normal)
[2021-03-02 05:19] LABS: Bacteria 2+ /hpf (None Seen); Squamous Epithelial Cells - UA 0-5 SEEN /hpf (5-10); White Blood Cells 0-5 SEEN /hpf (0-5)
[2021-03-02 05:57] LABS: Absolute Neutrophil Count 12.7 X10^3/uL (2.0-7.7); Basophil# 0.04 X10^3/uL; Basophil% 0.3 % (0-1); Eosinophil# 0.02 X10^3/uL; Eosinophils% 0.1 % (0-5); Hematocrit 38.5 % (37-47); Mean Corp Hgb Conc 31.2 g/dL (32-36); Mean Corpuscular Hgb 33.7 pg (27.0-32.0); Mean Corpuscular Volume 108.1 fL (81-99); Mean Platelet Vol. 12.4 fl (6.2-12.0); Monocyte# 0.87 X10^3/uL; Monocyte% 5.8 % (0-10); NRBC Flagged by Analyzer 0 % (0-5); Neutrophil # 12.74 X10^3/uL (2.7-7.7); Neutrophil % 85.2 % (47-70); POSITIVE COUNT YES; Platelet Count 96 K/mm3 (150-450); RBC Distribution Width CV 13.2 % (11.6-14.6); RBC Distribution Width SD 52.4 fl (35.1-43.9); Red Blood Count 3.56 M/mm3 (4.2-5.4)
[2021-03-02 07:36] LABS: Bedside Glucose 193 mg/dL (70-110)
[2021-03-02 07:42] VITALS: O2SAT 98
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
[2021-03-02 08:05] LABS: Anion Gap 7 (5-15); BUN 74 mg/dL (7-18); BUN/Creat Ratio 28.6 RATIO (10-20); Calcium,Total 8.3 mg/dL (8.5-10.1); Chloride 96 mmol/L (98-107); Creatinine, Serum 2.59 mg/dL (0.55-1.02); EST Glomerular Filtration Rate 19 mL/min (>60); Est Glom Filt Rate - Afr Amer 23 mL/min (>60); Estimated Creatinine Clearance 25.54 ml/min; Glucose 205 mg/dL (74-106); Potassium 5.7 mmol/L (3.5-5.1); Sodium Level 125 mmol/L (136-145)
--- NOTE | 2021-03-02 09:20 | PN.HOSP_ITS ---
Subjective Subjective Patient was seen and examined. She appears sleepy. Blood sugar was 140. ABGs unremarkable. Objective Data Objective Data Vital Signs: Vital Signs Temp Pulse Resp BP Pulse Ox 98.2 F 50 L 18 131/56 H 98 03/02/21 04:52 03/02/21 04:52 03/02/21 04:52 03/02/21 04:52 03/02/21 07:42 Oxygen Flow Rate (L/min) 2 Oxygen Delivery Method Room Air Weight: 86.2 kg Body Mass Index (BMI) 37.3 Intake & Output: Intake and Output for Last 24 Hours 02/28/21 03/01/21 03/02/21 23:59 23:59 23:59 Output Total 400 / 400 Balance -400 / -400 Lab / Micro Data Result Diagrams: 03/02/21 05:30 03/02/21 07:18 Labs: Laboratory Results - last 24 hr 03/01/21 16:39: WBC 9.4, RBC 3.25 L, Hgb 10.8 L, Hct 31.9 L, MCV 98.2, MCH 33.2 H, MCHC 33.9, RDW Std Deviation 45.7 H, RDW Coeff of Kusum 12.7, Plt Count 87 L, MPV 11.7, Immature Gran % (Auto) 0.700, Neut % (Auto) 90.4 H, Lymph % (Auto) 5.9 L, Gilchrist % (Auto) 2.9, Eos % (Auto) 0.0, Baso % (Auto) 0.1, Absolute Neuts (auto) 8.5 H, Absolute Lymphs (auto) 0.56 L, Nucleated RBC % 0, Differential Comment SCANNED 03/01/21 16:39: Sodium 124 L, Potassium 5.7 H, Chloride 91 L, Carbon Dioxide 27.0, Anion Gap 6, BUN 70 H, Creatinine 2.70 H, Estim Creat Clear Calc 12.93, Est GFR (MDRD) Af Amer 22 L, Est GFR (MDRD) Non-Af 18 L, BUN/Creatinine Ratio 25.9 H, Glucose 421 H, Calcium 9.0 03/01/21 16:39: Acetone Level NEGATIVE 03/01/21 17:22: POC Glucose 411 H 03/01/21 19:12: POC Glucose 346 H 03/01/21 19:26: Magnesium 2.0 03/01/21 20:50: POC Glucose 271 H 03/02/21 00:04: POC Glucose 213 H 03/02/21 04:50: Urine Color Yellow, Urine Clarity Sl. Cloudy, Urine pH 5.0, Ur Specific [place] 1.015, Urine Protein 100 H, Urine Glucose (UA) 1000 H, Urine Ketones Negative, Urine Occult Blood 10 H, Urine Nitrite Negative, Urine Bilirubin Negative, Urine Urobilinogen Normal, Ur Leukocyte Esterase 25 H, Urine RBC 0 SEEN, Urine WBC 0-5 SEEN, Ur Squamous Epith Cells 0-5 SEEN, Urine Bacteria 2+, Urine Mucus 0 SEEN 03/02/21 05:30: WBC 15.0 H, RBC 3.56 L, Hgb 12.0, Hct 38.5, MCV 108.1 H D, MCH 33.7 H, MCHC 31.2 L D, RDW Std Deviation 52.4 H, RDW Coeff of Kusum 13.2, Plt Count 96 L, MPV 12.4 H, Immature Gran % (Auto) 0.600, Neut % (Auto) 85.2 H, Lymph % (Auto) 8.0 L, Gilchrist % (Auto) 5.8, Eos % (Auto) 0.1, Baso % (Auto) 0.3, Absolute Neuts (auto) 12.7 H, Absolute Lymphs (auto) 1.20, Nucleated RBC % 0 03/02/21 05:30: Sodium Cancelled, Potassium Cancelled, Chloride Cancelled, C arbon Dioxide Cancelled, Anion Gap Cancelled, BUN Cancelled, Creatinine Cancelled, Estim Creat Clear Calc Cancelled, Est GFR (MDRD) Af Amer Cancelled, Est GFR (MDRD) Non-Af Cancelled, BUN/Creatinine Ratio Cancelled, Glucose Cancelled, Calcium Cancelled 03/02/21 07:18: Sodium 125 L, Potassium 5.7 H, Chloride 96 L, Carbon Dioxide 22.0, Anion Gap 7, BUN 74 H, Creatinine 2.59 H, Estim Creat Clear Calc 25.54, Est GFR (MDRD) Af Amer 23 L, Est GFR (MDRD) Non-Af 19 L, BUN/Creatinine Ratio 28.6 H, Glucose 205 H, Calcium 8.3 L 03/02/21 07:25: POC Glucose 193 H Micro: Microbiology 03/02/21 04:52 Stool C. difficile DNA Amplification - Final 03/01/21 22:08 Nasal Secretion SARS-CoV-2 Antigen (Rapid) - Final Physical Exam Narrative Physical exam: General: Lethargic, Cooperative, No apparent distress, Well developed HEENT: Atraumatic Oral: Moist Mucosa Neck: Supple Lungs: Diminished to auscultation Cardiovascular: HS I+II, regular, no murmurs Abdomen: Bowel Sounds Present, Soft, Non Tender Extremities: No edema Assessment & Plan Assessment/Plan (1) Acute hyperglycemia: (2) Diabetes: QUALIFIERS: Diabetes mellitus type: type 2 Diabetes mellitus custodial insulin use: with custodial use Chronic kidney disease stage: on chronic dialysis Diabetes mellitus complication detail: with chronic kidney disease Diabetes mellitus complication status: with kidney complications Qualified Code(s): E11.22 - Type 2 diabetes mellitus with diabetic chronic kidney disease; N18.6 - End stage renal disease; Z79.4 - intermediate frame tender (current) use of insulin; Z99.2 - Dependence on renal dialysis (3) End stage chronic kidney disease: (4) Dialysis patient: PLAN: 1. Acute hyper glycemia in type II DM, resolved, Secondary to steroid use Off Decadron, Lantus increased to 20 units daily, continue with home premeal insulin, insulin sliding scale 2. ESRD on hemodialysis, patient missed dialysis, nephrology consulted 3. Lethargy, likely medication related, will hold gabapentin 4. Rest of chronic medical conditions are stable Home meds reviewed; Charges/Coding Visit Charges Inpatient E&M: 13642 Subs Hosp L2
[2021-03-02 09:30] VITALS: BP 140/62; PULSE 51; RESP 18; TEMP 35.7; O2SAT 95
[2021-03-02 09:46] LABS: Bedside Glucose 143 mg/dL (70-110)
--- NOTE | 2021-03-02 10:57 | CASEMGMT ---
Addendum entered by Monet Dockery 03/02/21 11:06: Per chart, pt does have CM Breanne Sargent. SW placed a call to Breanne Sargent and left message regarding admission to [facility]. Original Note: Social Work Note Pt is listed as being from [facility]. SW in to speak with pt. Pt currently receiving dialysis. Pt appears very sleepy, unable to converse in conversation with this worker. Diaylsis RN states pt will have outpatient diaylsis tomorrow (which is pt's regular M,W,F schedule) and then transition to onsite dialysis at [facility]. ANNIE placed a call to pt's daughter Beverly, who is listed as pt's HCPOA (documents are on file). Beverly confirms pt came from [facility] plan is to return. ANNIE placed a call to [facility] and spoke with Jose in admissions. ANNIE updated Jose pt may return later to [facility]. Jose states understanding. Plan: Return to [facility] when medically cleared Monet Dockery [employer], [employer]
[2021-03-02 11:16] LABS: Allen Test Positive; Base Excess 3 mmol/L (-2 to +2); Bicarbonate 26.3 mmol/L (22-26); Blood Gas Specimen Type ART; FI02 21; PO2 86 mmHG (75-100); SITE R Radial; SO2 97 % (95-99); Total Carbon Dioxide 27 mmol/L; pCO2 34.3 mmHg (35-45); pH 7.49 (7.35-7.45)
[2021-03-02 11:50] LABS: Bedside Glucose 119 mg/dL (70-110)
[2021-03-02] MEDS: Heparin 10,000 UNITS/10 ML Vial 3200 UNITS IV (11:55)
[2021-03-02 12:00] VITALS: BP 121/56; PULSE 55; RESP 16; TEMP 36.1
--- NOTE | 2021-03-02 13:02 | CASEMGMT ---
Addendum entered by Lisa Sierra 03/02/21 14:43: 1359- nreceived tc back from [facility], made her aware that pt will be dc'ing back to SNF this date and pt had dialysis today. Original Note: TC to [facility] KAMILA Holley per request at [phone], left voicemail.
--- NOTE | 2021-03-02 13:02 | DIALYSIS ---
HD x 3.5 hours complete. Tolerated tx well. UF Of 2500ml. Used right chest wall dialysis catheter. Lumens closed with heparin per fill volume. Caps placed. Dressing is intact. See tx sheet for more details. Report was given to ERICA Lynch.
[2021-03-02] MEDS: Aspirin 81 MG TAB.CHEW PO (13:19)
[2021-03-02] MEDS: Fluticasone 0.05% 1 SPRAY NASAL.SRY 2 SPRAY NASAL (13:21)
[2021-03-02] MEDS: Loratadine 10 MG Tablet PO (13:21)
[2021-03-02] MEDS: Isosorbide Mononitrate 30 MG Tablet PO (13:22)
[2021-03-02] MEDS: Vitamin B Comp W-C Capsule 1 CAP PO (13:22)
[2021-03-02] MEDS: Escitalopram Oxalate 10 MG Tablet PO (13:23)
[2021-03-02] MEDS: amLODIPine 10 MG Tablet PO (13:24)
[2021-03-02] MEDS: Midodrine HCl 5 MG Tablet PO (13:24)
[2021-03-02] MEDS: Enoxaparin 30 MG/0.3 ML Syringe SC (13:24)
[2021-03-02 13:25] VITALS: PULSE 60
[2021-03-02] MEDS: Metoprolol(XL)Succ 25 MG Tablet 75 MG PO (13:25)
--- NOTE | 2021-03-02 13:58 | PCM.TXEXTCAR ---
Diet 03/02/21 11:52 Diet: Renal - ConsCHO - Amanda Cont Food consistency:: Regular Liquid Consistency:: Regular/Thin Is pt able to select menu?: Yes Fluid restriction:: 1500 mL How many daily calories?: 1800 calorie Routine Orders/Code Status O2 Liters per Minute: 2 O2 Frequency: Continuous Keep PO Greater than or Equal to (%): 94 Routine Lab Work: CBC (within 3 days) and BMP (within 3 days) Code Status: Full Code Wound(s) R wolfe: Wound Type: Abrasion Dressing Change: Mepilex Therapies Weight Bearing: Weight bearing as tolerated Problem/Diagnosis (1) Acute hyperglycemia: Status: Acute (2) Diabetes: Status: Acute (3) End stage chronic kidney disease: Status: Chronic (4) Dialysis patient: Status: Acute Allergies/Procedures Done in Hospital Allergies Penicillins Allergy (Severe, Verified 03/01/21 16:32) Anaphylaxis ciprofloxacin [From Cipro] Allergy (Verified 03/01/21 16:32) Rash codeine Allergy (Verified 03/01/21 16:32) Shortness of breath Procedures: None Type of Care/Length of Stay Estimated LOS: Convalescent Care Less Than 30 days Type of Care Needed: Skilled Rehab Potential: Good Prognosis: Good Additional Orders/Day of Discharge Day of Discharge: 03/02/21 Dietary and Speech Recommendations Dietitian Recommendations/Changes: Will change diet to 1800 amanda Consistent CHO/ Renal general diet Will continue Nepro CHO Steady 120 ml 4x/day w/ medpass Discharge Plan Admission Admit Date/Time: 03/01/21 19:46 Primary Reason for Your Visit: Hyperglycemia Attending Provider: Ryanne Wood Primary Care Provider: Bailey Toribio Consulting Providers: Christine Steward Discharge Orders/Prescriptions Prescriptions: New Lantus Solostar U-100 Insulin 100 unit/mL (3 mL) Insulin Pen 20 unit subcut BID 30 Days Qty: 0 RF: 0 insulin lispro [Humalog KwikPen Insulin] 100 unit/mL Insulin Pen 12 unit subcut TIDCM 30 Days Qty: 10.8 RF: 0 Continued trazodone 50 mg tablet 25 mg PO QHS RF: 0 atorvastatin 10 MG tablet 10 mg PO QHS RF: 0 ergocalciferol (vitamin D2) 50,000 UNIT capsule 50,000 unit PO KELLOGG RF: 0 escitalopram oxalate 10 MG tablet 10 mg PO DAILY RF: 0 amlodipine 10 MG tablet 10 mg PO DAILY RF: 0 metoprolol succinate 50 MG tablet extended release 24 hr 75 mg PO DAILY RF: 0 isosorbide mononitrate 30 MG tablet extended release 24 hr 30 mg PO DAILY RF: 0 lisinopril 10 MG tablet 10 mg PO DAILY RF: 0 midodrine 5 mg Tablet 5 mg PO TUTHSA RF: 0 fexofenadine [Veronica Allergy] 60 mg Tablet 60 mg PO DAILY RF: 0 gabapentin 100 mg capsule 200 mg PO BID RF: 0 fluticasone propionate 50 mcg/actuation [place],Suspension 2 spray INTRANASAL DAILY RF: 0 Vimpat 100 mg tablet 100 mg PO BID RF: 0 dexamethasone 6 mg tablet 6 mg PO DAILY RF: 0 aspirin 81 mg tablet,delayed release (DR/EC) 81 mg PO DAILY RF: 0 B complex-vitamin C-folic acid 1 mg Tablet 1 tab PO DAILY RF: 0 amiodarone 200 mg tablet 200 mg PO BID RF: 0 Discontinued Basaglar KwikPen U-100 Insulin 100 UNIT/ML insulin pen 16 unit SQ BID RF: 0 insulin lispro [Humalog KwikPen Insulin] 100 unit/mL Insulin Pen 15 unit SUBCUT TID RF: 0 Referrals / Follow Up: Bailey Toribio MD [Primary Care Provider] - Disposition Discharge Orders: Discharge Patient (Routine); Ordered 03/02/21 Ordered By: Dr. Ryanne Wood
[2021-03-02 14:00] VITALS: BP 134/62; PULSE 60; RESP 18; TEMP 36.7; O2SAT 96
--- NOTE | 2021-03-02 14:00 | PCM.DC.SUM ---
Providers Date of Admission: 03/01/21 Date of Discharge: 03/02/21 Primary Care Physician: Dr. Bailey Toribio MD Consultations 03/01/21 23:14 Consult: Nephrology Routine Consulting Provider: Christine Steward Reason for Consult: dialysis EMERGENT Consult: No MD Notified: Yes Date Notified: 03/01/21 Time Notified: 19:27 Method of Notification: Provider Initiated 03/02/21 05:16 Consult: Onc/Wound/coding technician Routine Comment: non healing right wolfe wound Reason For Visit: HYPERGLYCEMIA Diagnosis Discharge Diagnosis (1) Acute hyperglycemia: Status: Chronic Code(s): R73.9 - Hyperglycemia, unspecified (2) Diabetes: Status: Chronic Code(s): E11.9 - Type 2 diabetes mellitus without complications Qualifiers: Chronic kidney disease stage: on chronic dialysis Diabetes mellitus complication detail: with chronic kidney disease Diabetes mellitus complication status: with kidney complications Diabetes mellitus jail insulin use: with business analyst ecommerce use Diabetes mellitus type: type 2 Qualified Code(s): E11.22 - Type 2 diabetes mellitus with diabetic chronic kidney disease; N18.6 - End stage renal disease; 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; Z99.2 - Dependence on renal dialysis (3) End stage chronic kidney disease: Status: Chronic Code(s): N18.6 - End stage renal disease (4) Dialysis patient: Status: Chronic Code(s): Z99.2 - Dependence on renal dialysis (5) Missed dialysis: Status: Acute Medications at Discharge Home Medications atorvastatin 10 mg PO QHS 09/06/19 ergocalciferol (vitamin D2) 50,000 unit PO KELLOGG 09/06/19 escitalopram oxalate 10 mg PO DAILY 05/05/20 amlodipine 10 mg PO DAILY 09/29/20 isosorbide mononitrate 30 mg PO DAILY 10/13/20 lisinopril 10 mg PO DAILY 10/13/20 metoprolol succinate 75 mg PO DAILY 10/13/20 trazodone 50 mg tablet 25 mg PO QHS 12/10/20 midodrine 5 mg PO TUTHSA 01/20/21 Vimpat 100 mg PO BID 02/22/21 dexamethasone 6 mg PO DAILY 02/22/21 fexofenadine [Veronica Allergy] 60 mg PO DAILY 02/22/21 fluticasone propionate 2 spray INTRANASAL DAILY 02/22/21 gabapentin 200 mg PO BID 02/22/21 B complex-vitamin C-folic acid 1 tab PO DAILY 03/01/21 amiodarone 200 mg PO BID 03/01/21 aspirin 81 mg PO DAILY 03/01/21 insulin glargine [Lantus Solostar U-100 Insulin] 20 unit SUBCUT BID 30 Days #0 ml 03/02/21 insulin lispro [Humalog KwikPen Insulin] 12 unit SUBCUT TIDCM 30 Days #10.8 ml 03/02/21 Hospital Course Operations None Summary of Care Provided Minutes Spent on Discharge: 40 Hospital Course: 75-year-old female with multiple comorbidities who was recently admitted and discharged with Covid. Patient was supposed to be in quarantine until 03/01/21. Patient was sent to the ED for hyperglycemia as well as missed dialysis. She was reported to have her blood sugars more than 600 and they had given her multiple doses of insulin. Her blood sugar in the EMS was 514. Patient had also missed dialysis on the day of admission. In the ED, she was lethargic, she open her eyes to voices. She was admitted to the MedSurg floor, changes were made to her insulin. She was kept of the couple. Patient had completed her Decadron course. Patient had dialysis during this hospital stay. She was seen by nephrology. She was much more awake after dialysis. She was discharged back to the senior care facility. Physical Exam Narrative See progress note of the day. Medical Records Data Medical Nutrition Assessment Dietitian: Malnutrition Criteria Met Start: 03/02/21 11:53 Freq: Status: Active Protocol: Document 03/02/21 11:53 CUONG (Rec: 03/02/21 11:54 [facility] [id number]) Nutrition Malnutrition Evidence of Malnutrition Exists Yes Malnutrition (severe): Acute Illness/Injury Evidenced By Suboptimal Energy Intake ( Severe),Weight Loss (Severe) Clinical Problem Acute Disease or Injury Related Malnutrition Etiology suspected related to recent Covid 19 (02/13/21) and issues w/ hyperglycemia/diarrhea Signs/Symptoms as evidenced by predicted decreased appetite and 4.6% wt loss x 1 wk Status Active Problem Recommendation Dietitian Recommendations/Changes Will change diet to 1800 amanda Consistent CHO/ Renal general diet Will continue Nepro CHO Steady 120 ml 4x/day w/ medpass Weight / BMI Weight Weight: 86.2 kg Body Mass Index (BMI) 37.3 ABG / Lab / Microbiology Data Result Diagrams: 03/02/21 05:30 03/02/21 07:18 Laboratory: Laboratory Results - last 24 hr 03/01/21 16:39: WBC 9.4, RBC 3.25 L, Hgb 10.8 L, Hct 31.9 L, MCV 98.2, MCH 33.2 H, MCHC 33.9, RDW Std Deviation 45.7 H, RDW Coeff of Kusum 12.7, Plt Count 87 L, MPV 11.7, Immature Gran % (Auto) 0.700, Neut % (Auto) 90.4 H, Lymph % (Auto) 5.9 L, Josephine % (Auto) 2.9, Eos % (Auto) 0.0, Baso % (Auto) 0.1, Absolute Neuts (auto) 8.5 H, Absolute Lymphs (auto) 0.56 L, Nucleated RBC % 0, Differential Comment SCANNED 03/01/21 16:39: Sodium 124 L, Potassium 5.7 H, Chloride 91 L, Carbon Dioxide 27.0, Anion Gap 6, BUN 70 H, Creatinine 2.70 H, Estim Creat Clear Calc 12.93, Est GFR (MDRD) Af Amer 22 L, Est GFR (MDRD) Non-Af 18 L, BUN/Creatinine Ratio 25.9 H, Glucose 421 H, Calcium 9.0 03/01/21 16:39: Acetone Level NEGATIVE 03/01/21 17:22: POC Glucose 411 H 03/01/21 19:12: POC Glucose 346 H 03/01/21 19:26: Magnesium 2.0 03/01/21 20:50: POC Glucose 271 H 03/02/21 00:04: POC Glucose 213 H 03/02/21 04:50: Urine Color Yellow, Urine Clarity Sl. Cloudy, Urine pH 5.0, Ur Specific [place] 1.015, Urine Protein 100 H, Urine Glucose (UA) 1000 H, Urine Ketones Negative, Urine Occult Blood 10 H, Urine Nitrite Negative, Urine Bilirubin Negative, Urine Urobilinogen Normal, Ur Leukocyte Esterase 25 H, Urine RBC 0 SEEN, Urine WBC 0-5 SEEN, Ur Squamous Epith Cells 0-5 SEEN, Urine Bacteria 2+, Urine Mucus 0 SEEN 03/02/21 05:30: WBC 15.0 H, RBC 3.56 L, Hgb 12.0, Hct 38.5, MCV 108.1 H D, MCH 33.7 H, MCHC 31.2 L D, RDW Std Deviation 52.4 H, RDW Coeff of Kusum 13.2, Plt Count 96 L, MPV 12.4 H, Immature Gran % (Auto) 0.600, Neut % (Auto) 85.2 H, Lymph % (Auto) 8.0 L, Josephine % (Auto) 5.8, Eos % (Auto) 0.1, Baso % (Auto) 0.3, Absolute Neuts (auto) 12.7 H, Absolute Lymphs (auto) 1.20, Nucleated RBC % 0 03/02/21 05:30: Sodium Cancelled, Potassium Cancelled, Chloride Cancelled, Carbon Dioxide Cancelled, Anion Gap Cancelled, BUN Cancelled, Creatinine Cancelled, Estim Creat Clear Calc Cancelled, Est GFR (MDRD) Af Amer Cancelled, Est GFR (MDRD) Non-Af Cancelled, BUN/Creatinine Ratio Cancelled, Glucose Cancelled, Calcium Cancelled 03/02/21 07:18: Sodium 125 L, Potassium 5.7 H, Chloride 96 L, Carbon Dioxide 22.0, Anion Gap 7, BUN 74 H, Creatinine 2.59 H, Estim Creat Clear Calc 25.54, Est GFR (MDRD) Af Amer 23 L, Est GFR (MDRD) Non-Af 19 L, BUN/Creatinine Ratio 28.6 H, Glucose 205 H, Calcium 8.3 L 03/02/21 07:25: POC Glucose 193 H 03/02/21 09:27: POC Glucose 143 H 03/02/21 11:34: POC Glucose 119 H Microbiology: Microbiology 03/02/21 04:52 Stool C. difficile DNA Amplification - Final 03/01/21 22:08 Nasal Secretion SARS-CoV-2 Antigen (Rapid) - Final ABG: ABG 03/02/21 11:09 Specimen Type ART Sample Site R Radial pH 7.49 H Bicarbonate Actual 26.3 H Total CO2 27 Base Excess 3 H O2 Saturation 97 O2 % 21 ABG pCO2 34.3 L ABG pO2 86 Mike Test Positive D/C Instructions Discharge Diet: 1800 Calorie Control Diet and Renal Diet Meaningful Use Info Meaningful Use Diagnoses (Choose all that apply): None applicable Discharge Plan Admission Admit Date/Time: 03/01/21 19:46 Primary Reason for Your Visit: Hyperglycemia Attending Provider: Ryanne Wood Primary Care Provider: Bailey Toribio Consulting Providers: Christine Steward Discharge Orders/Prescriptions Prescriptions: New Lantus Solostar U-100 Insulin 100 unit/mL (3 mL) Insulin Pen 20 unit subcut BID 30 Days Qty: 0 RF: 0 insulin lispro [Humalog KwikPen Insulin] 100 unit/mL Insulin Pen 12 unit subcut TIDCM 30 Days Qty: 10.8 RF: 0 Continued trazodone 50 mg tablet 25 mg PO QHS RF: 0 atorvastatin 10 MG tablet 10 mg PO QHS RF: 0 ergocalciferol (vitamin D2) 50,000 UNIT capsule 50,000 unit PO KELLOGG RF: 0 escitalopram oxalate 10 MG tablet 10 mg PO DAILY RF: 0 amlodipine 10 MG tablet 10 mg PO DAILY RF: 0 metoprolol succinate 50 MG tablet extended release 24 hr 75 mg PO DAILY RF: 0 isosorbide mononitrate 30 MG tablet extended release 24 hr 30 mg PO DAILY RF: 0 lisinopril 10 MG tablet 10 mg PO DAILY RF: 0 midodrine 5 mg Tablet 5 mg PO TUTHSA RF: 0 fexofenadine [Vreonica Allergy] 60 mg Tablet 60 mg PO DAILY RF: 0 gabapentin 100 mg capsule 200 mg PO BID RF: 0 fluticasone propionate 50 mcg/actuation [place],Suspension 2 spray INTRANASAL DAILY RF: 0 Vimpat 100 mg tablet 100 mg PO BID RF: 0 dexamethasone 6 mg tablet 6 mg PO DAILY RF: 0 aspirin 81 mg tablet,delayed release (DR/EC) 81 mg PO DAILY RF: 0 B complex-vitamin C-folic acid 1 mg Tablet 1 tab PO DAILY RF: 0 amiodarone 200 mg tablet 200 mg PO BID RF: 0 Discontinued Basaglar KwikPen U-100 Insulin 100 UNIT/ML insulin pen 16 unit SQ BID RF: 0 insulin lispro [Humalog KwikPen Insulin] 100 unit/mL Insulin Pen 15 unit SUBCUT TID RF: 0 Referrals / Follow Up: Bailey Toribio MD [Primary Care Provider] - Disposition Discharge Orders: Discharge Patient (Routine); Ordered 03/02/21 Ordered By: Dr. Ryanne Wood Charges/Coding Visit Charges OBSV E&M: 67018 Observation care discharge
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
--- NOTE | 2021-03-02 14:54 | PHA.DC.MR ---
Pharmacy Service has performed discharge medication reconciliation for this patient. The patient's discharge medication list was reviewed for discrepancies and discrepancies were resolved. Home Medications atorvastatin 10 mg PO QHS 09/06/19 ergocalciferol (vitamin D2) 50,000 unit PO KELLOGG 09/06/19 escitalopram oxalate 10 mg PO DAILY 05/05/20 amlodipine 10 mg PO DAILY 09/29/20 isosorbide mononitrate 30 mg PO DAILY 10/13/20 lisinopril 10 mg PO DAILY 10/13/20 metoprolol succinate 75 mg PO DAILY 10/13/20 trazodone 50 mg tablet 25 mg PO QHS 12/10/20 midodrine 5 mg PO TUTHSA 01/20/21 Vimpat 100 mg PO BID 02/22/21 dexamethasone 6 mg PO DAILY 02/22/21 fexofenadine [Veronica Allergy] 60 mg PO DAILY 02/22/21 fluticasone propionate 2 spray INTRANASAL DAILY 02/22/21 gabapentin 200 mg PO BID 02/22/21 B complex-vitamin C-folic acid 1 tab PO DAILY 03/01/21 amiodarone 200 mg PO BID 03/01/21 aspirin 81 mg PO DAILY 03/01/21 insulin glargine [Lantus Solostar U-100 Insulin] 20 unit SUBCUT BID 30 Days #0 ml 03/02/21 insulin lispro [Humalog KwikPen Insulin] 12 unit SUBCUT TIDCM 30 Days #10.8 ml 03/02/21
--- NOTE | 2021-03-02 16:15 | CASEMGMT ---
Social Work Note Pt to discharge back to [facility] skilled today. ANNIE faxed completed discharge paperwork to [facility] including transfer to extended care facility, signed medication list, any scripts, and COVID test/tool. Original in SNF folder and copy on pt's chart. ANNIE spoke with RN, pt can transport via wheelchair van. ANNIE placed a call to [facility] (as pt has [facility]/[employer]) as secondary insurance to arrange wheelchair van transportation. ANNIE spoke with Maty at [facility], per Maty pt's policy doensn't provide DME for transports, [facility] unable to provide wheelchair for transport. ANNIE explained that pt doesn't have own wheelchair and pt needs wheelchair van for transport. Maty states pt would need to pay privately for wheelchair van transport, states that this worker will need to request wheelchair van transport through [facility]. ANNIE accessed trip assist and arranged transportation via wheelchair van for 6:30pm. Transportation form completed and placed on SNF folder and copy on pt's chart. ANNIE placed a call to [facility] and updated Dameko of discharge and transportation. ANNIE placed a call to pt's daughter Beverly and updated her on discharge and transportation time. RN updated, pt updated. ANNIE placed a call to pt's CM Breanne Sargent at [facility] and left message updating her on discharge. Plan: Return to [facility] skilled today with [facility] transporting pt via wheelchair van at 6:30pm. Monet Dockery COLLAR TURNER OPERATOR, NON LICENSED NUCLEAR PLANT OPERATOR
[2021-03-02 16:30] LABS: Bedside Glucose 338 mg/dL (70-110)
--- NOTE | 2021-03-02 17:04 | CASEMGMT ---
Social Work Note Pt's COVID test, under Serology is still pending. ANNIE placed a call to [facility] and spoke with Jose in admissions. Jose states regardless of pt's COVID test (negative or positive) pt can still discharge back to [facility] tonight. ANNIE updated RN. ANNIE asked clerk secretary to fax COVID test, under Serology, once it is resulted to [facility]. [place] states undrestanding. Plan: Return to [facility] skilled today at 6:30pm Monet Dockery HAND SPRING FORMER, CATHODE MAKER
[2021-03-02] MEDS: Insulin Lispro 100 UNIT/ML INSULN.PEN 12 UNIT SC (17:12)
--- NOTE | 2021-03-02 17:37 | NURSING ---
report called to Fely @[facility]
== END 2021-03-02 18:00 | disposition skilled nursing facility (03) ==
LOC: ED 18:39 → MS3 22:43
PROVIDERS: Nurse Practitioner Family; Admitting Provider Hospitalist; Emergency Provider Emergency Medicine; PCP Internal Medicine; Visit Provider Internal Medicine
DX: E11.65 Type 2 diabetes mellitus with hyperglycemia (principal); E11.22 Type 2 diabetes mellitus with diabetic chronic kidney disease; N18.6 End stage renal disease; I13.2 Hypertensive heart and chronic kidney disease with heart failure and with stage 5 chronic kidney disease, or end stage renal disease; I48.91 Unspecified atrial fibrillation; F31.9 Bipolar disorder, unspecified; J44.9 Chronic obstructive pulmonary disease, unspecified; I50.32 Chronic diastolic (congestive) heart failure; I50.82 Biventricular heart failure; F41.1 Generalized anxiety disorder; E66.01 Morbid (severe) obesity due to excess calories; E87.1 Hypo-osmolality and hyponatremia; E11.42 Type 2 diabetes mellitus with diabetic polyneuropathy; F44.81 Dissociative identity disorder; E78.5 Hyperlipidemia, unspecified; G47.33 Obstructive sleep apnea (adult) (pediatric); M06.9 Rheumatoid arthritis, unspecified; I27.21 Secondary pulmonary arterial hypertension; G25.81 Restless legs syndrome; Z99.2 Dependence on renal dialysis; Z91.15 Patient's noncompliance with renal dialysis; Z79.899 Other long term (current) drug therapy; Z79.4 Long term (current) use of insulin; Z79.51 Long term (current) use of inhaled steroids; Z79.52 Long term (current) use of systemic steroids; Z79.82 Long term (current) use of aspirin; Z87.891 Personal history of nicotine dependence; Z68.38 Body mass index [BMI] 38.0-38.9, adult
CPT/HCPCS: 36415; 36600; 80048; 81001; 82009; 82803; 82962; 83735; 85025; 87426; 87493; 87635; 90937; 96361; 96372; 96374; 97802; 99218; 99285; J7030; U0005; A4216; G0257; G0378; U0003

== ENCOUNTER 2021-03-07 12:13 | Inpatient (IN) | payer MEDICARE, MEDICAID, SELFPAY ==
[2021-03-07] VITALS (25 sets, daily range): BP systolic 73–163; BP diastolic 34–143; PULSE 34–66; RESP 11–16; TEMP 35.1–36.8; O2SAT 90–99; BMI 35.7; BMI 39.0
--- NOTE | 2021-03-07 12:29 | EKG12_ITS ---
Test Reason : Blood Pressure : / mmHG Vent. Rate : 038 BPM Atrial Rate : 042 BPM P-R Int : 000 ms QRS Dur : 080 ms QT Int : 520 ms P-R-T Axes : 000 077 055 degrees QTc Int : 413 ms Junctional bradycardia Low voltage QRS Abnormal ECG Confirmed by ANGELA BOWMAN, SANTHOSH ([id number]), production editor RADHA TAPIA ([id number]) on 03/09/2021 8:51:40 AM Referred By: MIKKI Confirmed By:SANTHOHS MILLER MD
[2021-03-07 12:40] LABS: Absolute Lymphocyte Count 1.12 X10^3/uL (0.83-4.51); Absolute Neutrophil Count 4.3 X10^3/uL (2.0-7.7); Basophil# 0.03 X10^3/uL; Basophil% 0.5 % (0-1); Eosinophil# 0.11 X10^3/uL; Eosinophils% 1.7 % (0-5); Hematocrit 29.9 % (37-47); Hemoglobin 9.5 g/dL (12.0-15.0); Lymphocyte # 1.12 X10^3/ul (0.83-4.51); Lymphocyte % 17.4 % (19-41); Mean Corp Hgb Conc 31.8 g/dL (32-36); Mean Corpuscular Hgb 34.1 pg (27.0-32.0); Mean Corpuscular Volume 107.2 fL (81-99); Mean Platelet Vol. 13.4 fl (6.2-12.0); Monocyte# 0.82 X10^3/uL; Monocyte% 12.7 % (0-10); NRBC Flagged by Analyzer 0 % (0-5); Neutrophil # 4.28 X10^3/uL (2.7-7.7); Neutrophil % 66.3 % (47-70); POSITIVE COUNT YES; Platelet Count 70 K/mm3 (150-450); RBC Distribution Width CV 14.9 % (11.6-14.6); RBC Distribution Width SD 57.4 fl (35.1-43.9); Red Blood Count 2.79 M/mm3 (4.2-5.4); White Blood Count 6.5 K/mm3 (4.4-11.0)
[2021-03-07 12:46] LABS: Differential Indicated SCAN CRITERIA MET
[2021-03-07 12:52] LABS: ALB/GLOB Ratio 0.5 RATIO (0.9-2.4); AST(SGOT) 34 U/L (15-37); Alanine Aminotransfer ALT/SGPT 39 U/L (13-56); Albumin, Serum 2.2 g/dL (3.2-5.0); Alkaline Phosphatase 92 U/L (45-117); Anion Gap 8 (5-15); BUN 67 mg/dL (7-18); BUN/Creat Ratio 18.8 RATIO (10-20); Calcium,Total 8.6 mg/dL (8.5-10.1); Chloride 96 mmol/L (98-107); Creatinine, Serum 3.57 mg/dL (0.55-1.02); EST Glomerular Filtration Rate 13 mL/min (>60); Est Glom Filt Rate - Afr Amer 16 mL/min (>60); Estimated Creatinine Clearance 12.25 ml/min; Globulin 4.1 g/dL (2.2-4.2); Glucose 103 mg/dL (74-106); Potassium 4.9 mmol/L (3.5-5.1); Protein, Total 6.3 g/dL (6.4-8.2); Sodium Level 131 mmol/L (136-145); Troponin-I HS 22 pg/mL (3.0-54.0)
--- NOTE | 2021-03-07 12:55 | RAD_ITS ---
STUDY: X-RAY CHEST REASON FOR EXAM: Female, 75 years old. bradycardia TECHNIQUE: Frontal portable view of the chest COMPARISON: 23 February 2021 FINDINGS: Appearance is comparable to prior allowing for differences in technique. Examination is technically limited due to patient''s positioning, rotation and low inspiratory volumes. Diagnostic information is available. There is no pneumothorax. Interstitial markings are increased, possibly underlying pneumonia and/or pulmonary edema. Grading of pulmonary edema is not possible. Heart size is normal for technique. There are no moderate or large pleural effusions. Dual-lumen catheter enters into the right jugular and terminates with its tip in the mid to lower SVC. RAD/Chest 1 View (Portable) IMPRESSION: 1. Low inspiratory volumes. 2. Possibly pulmonary edema. 3. Possibly underlying pneumonia versus artifactual appearance. Electronically Signed: Hiram Montano MD at 13:24 EDT Tel , Service support ,
[2021-03-07 12:56] LABS: Lactic Acid 1.6 mmol/L (0.4-1.9)
[2021-03-07 13:20] LABS: Bacteria 0 SEEN /hpf (None Seen); Mucous, Urine 0 SEEN /hpf (<or=2+); Red Blood Cells-Urine 0 SEEN /hpf (0-5)
[2021-03-07 13:21] LABS: Color, Urine Amber (Yellow); Glucose, Dipstick Normal (Normal); Ketone-Dipstick 5 mg/dl (Negative); Leukocyte Esterase-Dipstick 100 /ul (Negative); Nitrite-Dipstick Positive (Negative); Occult Blood-Urine 10 /ul (Negative); Protein-Dipstick 30 mg/dl (Negative); Urine Clarity Clear (Clear); Urine Urobilinogen 1 mg/dl (Normal)
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
--- NOTE | 2021-03-07 13:21 | CT_ITS ---
STUDY: CT BRAIN WITHOUT CONTRAST REASON FOR EXAM: Female, 75 years old. ams RADIATION DOSAGE (If Supplied By Facility): CTDIvol = ( 44.99 ) mGy, DLP = ( 745.49 ) mGycm TECHNIQUE: Transaxial CT imaging of the brain was performed without administration of intravenous contrast material. Individualized dose optimization techniques were used for this CT. COMPARISON: 01/25/2021 FINDINGS: No change. Normal soft tissue structures. Normal calvarium. There is mild cerebral atrophy with widening of the extra-axial spaces and ventricular dilatation. There are areas of decreased attenuation within the white matter tracts of the supratentorial brain, consistent with microvascular disease changes. Normal basal ganglia and thalami. Normal brainstem. Normal cerebellum. There is no intracranial hemorrhage. There are no findings of an acute ischemic infarction. Normal visualized paranasal sinuses. CT/Brain/Head without Contrast IMPRESSION: Chronic involutional changes of the brain. No change or acute abnormality. Electronically Signed: Tunde Rich MD at 14:50 EDT , Service support ,
[2021-03-07 13:27] LABS: Urine Bilirubin Dipstick 3 mg/dL (Negative)
[2021-03-07 13:32] LABS: White Blood Cells 5-10 SEEN /hpf (0-5)
--- NOTE | 2021-03-07 13:32 | ED.RN ---
SPOUSE DELANEY [phone]
[2021-03-07 13:33] LABS: Squamous Epithelial Cells - UA 0-5 SEEN /hpf (5-10)
[2021-03-07] MEDS: Sodium Bicarbonate 8.4% 50 ML Syringe 50 MEQ IV (13:34)
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
--- NOTE | 2021-03-07 14:56 | ED.RN ---
daughter bandar updated on pt's status, pt gives permission for daughter to receive health information
--- NOTE | 2021-03-07 16:35 | NURSING ---
1615-pt arrived to room 126 with no verbal report or updated hr. pt known to be full code. pt very lethargic and opens eyes to verbal and tacktile stimuli but does not answer. hr still 30's. pt hypothermic. bellows charger assembler questioned on appriate level of care and dr. kelly texted. pt on monitor and sb noted. exts cool x4. radial pulse weak but present. spo2 95% on 2l. no change in hr despite er's intervention since arrived. this rn at bedside to chart and awaiting orders. external pacer pads in place but no order.
[2021-03-07] MEDS: 0.9% Normal Saline 1,000 ML 100 ML IV (17:01)
[2021-03-07] MEDS: Dextrose 50%-Water 25 GM/50 ML DISP.SYRIN IV (17:03)
--- NOTE | 2021-03-07 17:06 | NURSING ---
chani pts daughter at bedside. bs only 43. 1amp d50 ivp given. bp 79/36. ns up at 100cc/hr. dr. kelly updated and wanting to talk with regarding pt's code status.
--- NOTE | 2021-03-07 17:19 | NURSING ---
1715-pt daughter calling brother to possibly make pt dnrcca. cps called for stat abg and pharm called for stat atropine iv
[2021-03-07] MEDS: Atropine Sulfate 1 MG/10 ML Syringe 0.5 MG IV ×2 (17:23→17:45)
[2021-03-07] MEDS: Naloxone 0.4 MG/ML Syringe IV (17:36)
[2021-03-07] MEDS: Dextrose 10%-Water 250 ML 40 ML IV ×2 (17:45→23:13)
[2021-03-07] MEDS: Glucagon 1 MG/ML Syringe IV (17:50)
[2021-03-07] MEDS: DOPamine IV 800 MG/250 ML IV.SOLN. 8.8 MG CONT INF (17:53)
[2021-03-07 18:01] LABS: Allen Test Positive; Base Excess 0 mmol/L (-2 to +2); Bicarbonate 25.7 mmol/L (22-26); Blood Gas Specimen Type ART; O2 Delivery Device Cannula; PO2 83 mmHG (75-100); SITE R Radial; SO2 95 % (95-99); Total Carbon Dioxide 27 mmol/L; pCO2 47.3 mmHg (35-45); pH 7.34 (7.35-7.45)
--- NOTE | 2021-03-07 18:07 | NURSING ---
pt with more responsiveness slightly. spo2 on 2l 93%. dopamine at 7.5mcg/min/kg and bp now 117/95 with hr 47. pt with dry heaving. iv zofran given. waiting on icu bed. dr. jay and lawanda song pa in at bedside. family updated.
[2021-03-07] MEDS: Ondansetron 4 MG/2 ML Vial IV (18:09)
--- NOTE | 2021-03-07 18:21 | NURSING ---
pt stablized and report called to [facility] sanchez with no questions voiced. pt to room icu6 via bed with staff and dr. jay. daughter updated when came for belongings.
--- NOTE | 2021-03-07 18:42 | PCM.PN.BLA ---
Progress Note Notified about patient's low blood pressure with systolic in the 70s, heart rate persistently in the 30s since admission. Patient's blood sugar was 43. Received an amp of D50. Repeat blood sugar was in the 130s Patient was lethargic, responds by opening eyes briefly only to deep stimulation Atropine 2 doses given with no effect Patient started on D10 water infusion at 40 mils an hour She also received 500 mls of normal saline bolus x1 Records reviewed -no data patient was on gabapentin as well as extended release metoprolol in the long term. Glucagon 1 mg IV x1 given with no much effect. Discussed with Dr. Sarmiento on phone; patient started on dopamine drip Discussed with patient's daughter who is a power of trust and estates attorney as well as ; patient would not want CPR and hence patient was made DNR CCA. Heart rate and blood pressure improved with dopamine. ABGs showed pH of 7.34, PCO2 was 47 Patient had an episode of nausea with attempts at vomiting; Zofran 4 mg IV was given Patient became more awake, more interactive, kept her eyes open. Blood pressures in the 130s, heart rate 59 on dopamine Patient was moved to ICU for overnight monitoring Nephrology notified also Time spent at the bedside, coordinating with nursing staff, reviewing chart, long term records, discussing with nephrology and cardiology, discussing CODE STATUS: 90 minutes Procedures Hospitalists Procedures: [id number] Prolonged Physician INPT
[2021-03-07 19:11] LABS: Bedside Glucose 96 mg/dL (70-110)
[2021-03-07 19:11] LABS: Bedside Glucose 137 mg/dL (70-110)
[2021-03-07 19:11] LABS: Bedside Glucose 43 mg/dL (70-110)
[2021-03-07] MEDS: Lacosamide 100 MG Tablet PO (21:47)
[2021-03-07 21:55] LABS: Bedside Glucose 110 mg/dL (70-110)
[2021-03-08] VITALS (33 sets, daily range): BP systolic 85–156; BP diastolic 37–101; PULSE 58–68; RESP 10–18; TEMP 36.3–37.2; O2SAT 90–99
[2021-03-08 04:36] LABS: Absolute Lymphocyte Count 0.71 X10^3/uL (0.83-4.51); Basophil# 0.02 X10^3/uL; Basophil% 0.2 % (0-1); Eosinophil# 0.05 X10^3/uL; Eosinophils% 0.5 % (0-5); Hemoglobin 11.8 g/dL (12.0-15.0); Lymphocyte # 0.71 X10^3/ul (0.83-4.51); Lymphocyte % 7.1 % (19-41); Mean Corp Hgb Conc 32.8 g/dL (32-36); Mean Corpuscular Hgb 34.2 pg (27.0-32.0); Mean Corpuscular Volume 104.3 fL (81-99); Mean Platelet Vol. 12.8 fl (6.2-12.0); Monocyte# 1.16 X10^3/uL; Monocyte% 11.6 % (0-10); NRBC Flagged by Analyzer 0 % (0-5); Neutrophil # 7.98 X10^3/uL (2.7-7.7); Neutrophil % 79.9 % (47-70); Platelet Count 113 K/mm3 (150-450); RBC Distribution Width CV 14.8 % (11.6-14.6); RBC Distribution Width SD 55.8 fl (35.1-43.9); Red Blood Count 3.45 M/mm3 (4.2-5.4)
[2021-03-08 05:03] LABS: Anion Gap 9 (5-15); BUN 70 mg/dL (7-18); BUN/Creat Ratio 18.6 RATIO (10-20); Calcium,Total 9.3 mg/dL (8.5-10.1); Chloride 93 mmol/L (98-107); Creatinine, Serum 3.77 mg/dL (0.55-1.02); EST Glomerular Filtration Rate 12 mL/min (>60); Est Glom Filt Rate - Afr Amer 15 mL/min (>60); Estimated Creatinine Clearance 9.73 ml/min; Glucose 178 mg/dL (74-106); Potassium 5.9 mmol/L (3.5-5.1); Sodium Level 128 mmol/L (136-145)
[2021-03-08] MEDS: Dextrose 10%-Water 250 ML 40 ML IV (05:30)
[2021-03-08] MEDS: Calcium Gluconate 1 GM/10 ML Vial 2 GM IV (06:19)
[2021-03-08] MEDS: proCHLORPERazine 10 MG/2 ML Vial 5 MG IV (06:31)
[2021-03-08] MEDS: 0.9% Saline Lock 10 ML Syringe IV (06:32)
[2021-03-08 07:05] LABS: Bedside Glucose 181 mg/dL (70-110)
[2021-03-08 08:55] LABS: Bedside Glucose 197 mg/dL (70-110)
--- NOTE | 2021-03-08 10:05 | PCM.PN.HOSP ---
Subjective Subjective No issues overnight. Patient is currently sleeping. Nursing reports her mentation has improved some. She remains on dopamine at ten. Heart rates are 58 to 65 bpm. Since December 012020 the patient has had four hospitalizations with the most recent discharge being on 03/02/2021. At that time she was discharged to [facility]. She was readmitted yesterday for confusion and bradycardia. Objective Data Objective Data Vital Signs: Vital Signs Temp Pulse Resp BP Pulse Ox 98.6 F 58 L 13 143/54 H 97 03/08/21 08:00 03/08/21 09:00 03/08/21 09:00 03/08/21 09:00 03/08/21 09:00 Oxygen Flow Rate (L/min) 2 Oxygen Delivery Method Nasal Cannula Weight: 96.4 kg Body Mass Index (BMI) 39.0 Intake & Output: Intake and Output for Last 24 Hours 03/06/21 03/07/21 03/08/21 23:59 23:59 23:59 Intake Total 1878.86 / 1892.06 402.67 / 402.67 Output Total 175 / 175 Balance 1878.86 / 1792.06 227.67 / 227.67 Lab / Micro Data Result Diagrams: 03/08/21 04:30 03/08/21 04:30 Labs: Laboratory Results - last 24 hr 03/07/21 12:15: WBC 6.5, RBC 2.79 L, Hgb 9.5 L, Hct 29.9 L, MCV 107.2 H, MCH 34.1 H, MCHC 31.8 L, RDW Std Deviation 57.4 H, RDW Coeff of Kusum 14.9 H, Plt Count 70 L, MPV 13.4 H, Immature Gran % (Auto) 1.400 H, Neut % (Auto) 66.3, Lymph % (Auto) 17.4 L, [place] % (Auto) 12.7 H, Eos % (Auto) 1.7, Baso % (Auto) 0.5, Absolute Neuts (auto) 4.3, Absolute Lymphs (auto) 1.12, Nucleated RBC % 0 03/07/21 12:15: Sodium 131 L, Potassium 4.9, Chloride 96 L, Carbon Dioxide 27.0, Anion Gap 8, BUN 67 H, Creatinine 3.57 H, Estim Creat Clear Calc 12.25, Est GFR (MDRD) Af Amer 16 L, Est GFR (MDRD) Non-Af 13 L, BUN/Creatinine Ratio 18.8, Glucose 103, Calcium 8.6, Total Bilirubin 0.60, AST 34, ALT 39, Alkaline Phosphatase 92, Troponin I High Sens 22, Total Protein 6.3 L, Albumin 2.2 L, Globulin 4.1, Albumin/Globulin Ratio 0.5 L 03/07/21 12:15: B-Natriuretic Peptide 505.0 H 03/07/21 12:15: Lactic Acid 1.6 03/07/21 13:15: Urine Color Nilsa, Urine Clarity Clear, Urine pH 5.0, Ur Specific [place] 1.020, Urine Protein 30 H, Urine Glucose (UA) Normal, Urine Ketones 5 H, Urine Occult Blood 10 H, Urine Nitrite Positive H, Urine Bilirubin 3 H, Urine Urobilinogen 1 H, Ur Leukocyte Esterase 100 H, Urine RBC 0 SEEN, Urine WBC 5-10 SEEN, Ur Squamous Epith Cells 0-5 SEEN, Urine Bacteria 0 SEEN, Urine Mucus 0 SEEN 03/07/21 16:51: POC Glucose 43 L* 03/07/21 17:16: POC Glucose 137 H 03/07/21 17:58: POC Glucose 96 03/07/21 21:44: POC Glucose 110 03/08/21 04:30: WBC 10.0, RBC 3.45 L, Hgb 11.8 L, Hct 36.0 L, MCV 104.3 H, MCH 34.2 H, MCHC 32.8, RDW Std Deviation 55.8 H, RDW Coeff of Kusum 14.8 H, Plt Count 113 L, MPV 12.8 H, Immature Gran % (Auto) 0.700, Neut % (Auto) 79.9 H, Lymph % (Auto) 7.1 L, Tr[place] % (Auto) 11.6 H, Eos % (Auto) 0.5, Baso % (Auto) 0.2, Absolute Neuts (auto) 8.0 H, Absolute Lymphs (auto) 0.71 L, Nucleated RBC % 0 03/08/21 04:30: Sodium 128 L, Potassium 5.9 H, Chloride 93 L, Carbon Dioxide 26.0, Anion Gap 9, BUN 70 H, Creatinine 3.77 H, Estim Creat Clear Calc 9.73, Est GFR (MDRD) Af Amer 15 L, Est GFR (MDRD) Non-Af 12 L, BUN/Creatinine Ratio 18.6, Glucose 178 H, Calcium 9.3 03/08/21 06:59: POC Glucose 181 H 03/08/21 08:48: POC Glucose 197 H Micro: Microbiology 03/07/21 14:50 Nasal Secretion SARS-CoV-2 Antigen (Rapid) - Final ABG Data ABG results: ABG 03/07/21 17:54 Specimen Type ART Sample Site R Radial pH 7.34 L Bicarbonate Actual 25.7 Total CO2 27 Base Excess 0 O2 Saturation 95 ABG pCO2 47.3 H ABG pO2 83 Mike Test Positive O2 Delivery Device Cannula Liter Flow 2.0 Radiography Diagnostic Testing: Radiology Impression Chest X-Ray 03/07/21 12:55 IMPRESSION: 1. Low inspiratory volumes. 2. Possibly pulmonary edema. 3. Possibly underlying pneumonia versus artifactual appearance. Electronically Signed: Hiram Montano MD at 13:24 EDT Tel , Service support , Brain CT 03/07/21 13:21 IMPRESSION: Chronic involutional changes of the brain. No change or acute abnormality. Electronically Signed: Tunde Rich MD at 14:50 EDT , Service support , Rhythm Strip Rate: 38 Ectopy: None Physical Exam Const no apparent distress Constitutional Narrative: Morbidly obese white female, sleeping soundly and rouses with stimulation but quickly falls back asleep, nontoxic-appearing, appears comfortable Exam Limitations: altered mental status HEENT head/scalp atraumatic Head and Scalp: normocephalic Resp normal respiratory effort, no retractions, no use of accessory muscles and clear to auscultation bilaterally Resp Narrative: Diminished at bases bilaterally Auscultation: Negative for crackles, rales, rhonchi or wheezes Cardio S1 normal heart sound, S2 normal heart sound, no murmurs, no rub, no gallops, no clicks and no JVD Cardio Narrative: Bradycardia distant heart tones secondary to body habitus GI normal to inspection, nondistended, normoactive bowel sounds, soft to palpation, non-tender and non-distended Extremity Extremity Narrative: No clubbing or cyanosis, bilateral lower extremity edema-trace to 1+ Peripheral Pulses: Yes pulses 2+ throughout Skin no rashes or lesions noted, skin turgor normal, no jaundice, no petechiae and no mottling Skin Narrative: Right lower extremity wound Neuro Neuro Narrative: Patient is currently sleeping soundly, moves all extremities spontaneously Psych Psych Narrative: Unable to assess at this time Assessment & Plan Assessment/Plan (1) Hypotension: QUALIFIERS: Hypotension type: unspecified hypotension type Qualified Code(s): I95.9 - Hypotension, unspecified (2) Bradycardia: (3) Toxic metabolic encephalopathy: PLAN: Junctional bradycardia -Patient was started on dopamine yesterday for heart rates in the 30s -Patient remains on dopamine at this time -Heart rates are improved -Patient did receive atropine, calcium gluconate, and sodium bicarb -Mild hyperkalemia which I doubt is the etiology -Dialysis tomorrow -Metoprolol and amiodarone are on hold -Cardiology is consulted Hypotension -Remains improved -All blood pressure medications on hold -Continue to monitor and reintroduce blood pressure medications as needed Metabolic encephalopathy -Suspect multifactorial -Need to monitor -Patient did have minor hypercapnia on her ABG yesterday with a pH of 7.34 -We will repeat ABG now and utilize noninvasive ventilation if needed -Sedating medications including gabapentin Hypoglycemia -Resolved Hyperkalemia -Potassium is 5.9 -Dialysis tomorrow -May be due to hypercapnia and acidemia--> ABG pending Hyponatremia -This appears to be chronic -Suspect related to volume -HD tomorrow Chronic anemia secondary to end-stage renal disease -Hemoglobin stable -Monitor Thrombocytopenia -Chronic stable DM-2 -Continue sliding scale at this time -patient was treated for hypoglycemic episode yesterday -Lantus was held--> baseline dose is 20 units twice daily--> will restart but at only 10 units daily -Once p.o. intake is improved then will reinitiate 20 units twice daily as patient tolerates -Hold scheduled Humalog 12 units 3 times daily with meals End-stage renal disease on HD -Continue midodrine with dialysis -Nephrology consulted -HD Monday Seizure disorder -Continue Vimpat Hypertension -Antihypertensives are on hold secondary to hypotension -Monitor closely and reintroduce antihypertensives as able Morbid obesity -Recommend weight loss -Complicates treatment, prognosis, and outcomes DVT prophylaxis -Heparin 3 times daily -Discontinue Lovenox CODE STATUS -DNR CCA no intubation per discussion with family last evening -We will consult palliative care/hospice -It appears that they may have been consulted and involved in the past Charges/Coding Visit Charges Inpatient E&M: 49393 Subs Hosp L3
[2021-03-08] MEDS: DOPamine IV 800 MG/250 ML IV.SOLN. 13.2 MG CONT INF (11:53)
[2021-03-08 12:06] LABS: Bedside Glucose 144 mg/dL (70-110)
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
[2021-03-08 13:01] LABS: Allen Test Positive; Base Excess 3 mmol/L (-2 to +2); Bicarbonate 27.4 mmol/L (22-26); Blood Gas Specimen Type ART; O2 Delivery Device Cannula; PO2 75 mmHG (75-100); SITE R Radial; SO2 95 % (95-99); Total Carbon Dioxide 29 mmol/L; pH 7.39 (7.35-7.45)
--- NOTE | 2021-03-08 14:30 | DIALYSIS ---
Hemodialysis x3.5 hours completed at 1420 on a 2K bath, tolerated very well, UF 4000mL, CritLine maintained profile A, BP stable throughout, accessed via right chest tunneled dialysis catheter, worked well, next treatment per nephrology
[2021-03-08] MEDS: Heparin 10,000 UNITS/10 ML Vial IV (17:05)
[2021-03-08] MEDS: Heparin Injection (Vial) 5,000 UNIT/ML VIAL 5000 UNIT SC ×2 (17:13→23:52)
[2021-03-08 17:26] LABS: Bedside Glucose 142 mg/dL (70-110)
[2021-03-08] MEDS: Lacosamide 100 MG Tablet PO (21:45)
[2021-03-08 21:50] LABS: Bedside Glucose 305 mg/dL (70-110)
[2021-03-09] VITALS (32 sets, daily range): BP systolic 97–154; BP diastolic 41–91; PULSE 51–67; RESP 12–20; TEMP 35.9–36.9; O2SAT 94–100
[2021-03-09] MEDS: Acetaminophen 325 MG Tablet 650 MG PO (04:53)
[2021-03-09 04:59] LABS: Absolute Lymphocyte Count 0.94 X10^3/uL (0.83-4.51); Absolute Neutrophil Count 4.3 X10^3/uL (2.0-7.7); Basophil# 0.01 X10^3/uL; Basophil% 0.2 % (0-1); Eosinophils% 1.5 % (0-5); Hematocrit 32.5 % (37-47); Hemoglobin 10.4 g/dL (12.0-15.0); Lymphocyte # 0.94 X10^3/ul (0.83-4.51); Lymphocyte % 14.5 % (19-41); Mean Corpuscular Hgb 33.3 pg (27.0-32.0); Mean Corpuscular Volume 104.2 fL (81-99); Mean Platelet Vol. 12.8 fl (6.2-12.0); Monocyte# 1.08 X10^3/uL; Monocyte% 16.7 % (0-10); NRBC Flagged by Analyzer 0 % (0-5); Neutrophil # 4.31 X10^3/uL (2.7-7.7); Neutrophil % 66.6 % (47-70); POSITIVE COUNT YES; Platelet Count 68 K/mm3 (150-450); RBC Distribution Width CV 15.2 % (11.6-14.6); RBC Distribution Width SD 57.6 fl (35.1-43.9); Red Blood Count 3.12 M/mm3 (4.2-5.4); White Blood Count 6.5 K/mm3 (4.4-11.0)
[2021-03-09 05:12] LABS: Anion Gap 7 (5-15); BUN 39 mg/dL (7-18); BUN/Creat Ratio 15.8 RATIO (10-20); Chloride 91 mmol/L (98-107); Creatinine, Serum 2.47 mg/dL (0.55-1.02); EST Glomerular Filtration Rate 20 mL/min (>60); Est Glom Filt Rate - Afr Amer 25 mL/min (>60); Estimated Creatinine Clearance 14.85 ml/min; Glucose 225 mg/dL (74-106); Potassium 5.3 mmol/L (3.5-5.1); Sodium Level 126 mmol/L (136-145)
[2021-03-09] MEDS: Heparin Injection (Vial) 5,000 UNIT/ML VIAL 5000 UNIT SC ×3 (05:54→20:30)
[2021-03-09] MEDS: Aspirin E.C. 81 MG Tablet PO (08:31)
[2021-03-09] MEDS: Insulin Lispro 100 UNIT/ML INSULN.PEN SC ×3 (08:39→17:40)
[2021-03-09 08:50] LABS: Bedside Glucose 179 mg/dL (70-110)
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
--- NOTE | 2021-03-09 10:57 | CASEMGMT ---
Addendum entered by Leola De La Rosa 03/09/21 12:03: SW spoke w/Shellie Widows from [facility], SW updated her on pt and anticipated plan, transfer or possibly home. She would like a call if pt goes to [place]. As far as transportation to dialysis, they [facility] to set that up. SW will continue to follow. SILVIO Mathur Addendum entered by Leola De La Rosa 03/09/21 11:32: Pt did have PT/OT. SW reviewed w/pt how she did with therapy. Pt stating wants to go home, she states her can help her at home. SW reviewed that she walked 3 feet. Pt states her can help her, and she has aides during the week that can help her too. SW explained we can see how it goes with therapy again tomorrow prior to making a decision. Pt states understanding. She then states that she is supposed to be transferred to [place] to get a pacemmaker. SW explained to pt if she gets transferred, then someone at [place] should help her with her discharge planning. SW did explain to pt if alf is needed, they can make arrangements for pt to come back to the [place] area, she does not need to stay in [place]. Pt states understanding. SW will continue to follow, will continue to assist w/discharge planning if pt does not get tranferred. SILVIO Mathur Original Note: SW met w/pt and daughter in room in regard to discharge plan. Pt does not want to go back to [facility]. We discussed the possibility of pt going home vs going to a different facility for rehab. Prior to pt's hospitalizations and alf placement in January, pt was living home alone w/her . Pt states was independent at home. Pt used a rollater and a raised commode at home, otherwise was independent. Pt was not on oxygen at home. Pt did have aides through [employer] prior to having COVID, since having COVID in January however pt has not had aides. Pt is on dialysis, with [facility]. Pt did have dialysis T,Th, Sat but then it was changed to M,W,F when pt had COVID. Pt's wrapper caser with her insurance had set up transport for her with [facility], wrapper caser through insurance is Shellie Fields([phone]). When pt was at [facility] and was getting dialysis on site while there. Pt is not sure if she can go home, will wait to see how pt moves with therapy. SW did provide a list of care home facilities that can manage pt's care, takes pt's insurance, in pt's preferred geographic area complete with quality resource use data. SW explained will follow up w/pt once pt has completed PT/OT, to continue to set up appropriate discharge plans. SW will also look into ensuring transport is set up for pt to go to and from dialysis. SW called [facility], message left. SW called Shellie, pt's wrapper caser with her insurance, message left. SW also called [facility], message left for pt's wrapper caser, Breanne Sargent with the coverage line, to let her know pt is here. SW also received a call from [facility] in ICU, message left with RN. SW called [facility] back, spoke w/Michi. As per Michi, a referral was made yesterday for hospice, but pt had said she was going to pursue getting a pacemaker so is not a hospice candidate at this time. SW will continue to follow. SILVIO Mathur
[2021-03-09] MEDS: Lacosamide 100 MG Tablet PO ×2 (11:37→20:30)
[2021-03-09 12:26] LABS: Bedside Glucose 311 mg/dL (70-110)
--- NOTE | 2021-03-09 15:13 | CHAPLAIN ---
Type of Pastoral Visit _x__ Initial Visit ___ Follow-up Visit ___ On-call Visit ___ General Patient Visit ___ Spiritual Assessment ___ Family Conference ___ Bereavement ___ Rapid Response ___ Code Blue ___ Other (describe below) Pastoral Care Referral From _x__ Patient ___ Family ___ Nurse ___ Physician ___ Dog Track Kennel Manager ___ Metal Furniture Repairer ___ Other (describe below) Sacrament/Intervention _x__ Active listening ___ Anointing ___ Zoroastrianism ___ Bereavement ___ Communion _x__ Nicolette exploration ___ _x__ Life review ___ Prayer ___ Reconciliation ___ Sacrament of Sick _x__ Supportive presence ___ Wedding ___ Other (describe below) Pastoral Comments patient and spouse are together in the room; pt welcomes the support and prayers; pt talks about her family and the history of illness in the family; spouse also is talkative;
--- NOTE | 2021-03-09 16:27 | PN.HOSP_ITS ---
Subjective Subjective Patient's mentation is better today. She states she is feeling better. Upon discussion with her daughter at the bedside she is interested in pursuing more aggressive management rather than hospice. She realizes she has had multiple admissions but still would like to pursue aggressive management. She remains on dopamine at 5. We have trialed her off and her heart rates dropped into the low 50s but appear to be sinus bradycardia with a first-degree heart block. Objective Data Objective Data Vital Signs: Vital Signs Temp Pulse Resp BP Pulse Ox 97.3 F L 52 L 18 109/70 100 03/09/21 16:00 03/09/21 16:00 03/09/21 15:00 03/09/21 16:00 03/09/21 16:00 Oxygen Flow Rate (L/min) 2 Oxygen Delivery Method Nasal Cannula Weight: 94.5 kg Body Mass Index (BMI) 39.0 Intake & Output: Intake and Output for Last 24 Hours 03/07/21 03/08/21 03/09/21 23:59 23:59 23:59 Intake Total 1878.86 / 1892.06 552.27 / 761.07 466.6 / 466.6 Output Total 4335 / 4335 150 / 150 Balance 1878.86 / 1792.06 -3782.73 / -3573.93 316.6 / 316.6 Lab / Micro Data Result Diagrams: 03/09/21 04:50 03/09/21 04:50 Labs: Laboratory Results - last 24 hr 03/08/21 17:09: POC Glucose 142 H 03/08/21 21:20: POC Glucose 305 H 03/09/21 04:50: WBC 6.5, RBC 3.12 L, Hgb 10.4 L, Hct 32.5 L, MCV 104.2 H, MCH 33.3 H, MCHC 32.0, RDW Std Deviation 57.6 H, RDW Coeff of Kusum 15.2 H, Plt Count 68 L, MPV 12.8 H, Immature Gran % (Auto) 0.500, Neut % (Auto) 66.6, Lymph % (Auto) 14.5 L, [place] % (Auto) 16.7 H, Eos % (Auto) 1.5, Baso % (Auto) 0.2, Absolute Neuts (auto) 4.3, Absolute Lymphs (auto) 0.94, Nucleated RBC % 0 03/09/21 04:50: Sodium 126 L, Potassium 5.3 H, Chloride 91 L, Carbon Dioxide 28.0, Anion Gap 7, BUN 39 H, Creatinine 2.47 H, Estim Creat Clear Calc 14.85, Est GFR (MDRD) Af Amer 25 L, Est GFR (MDRD) Non-Af 20 L, BUN/Creatinine Ratio 15.8, Glucose 225 H, Calcium 8.0 L 03/09/21 08:31: POC Glucose 179 H 03/09/21 12:20: POC Glucose 311 H Micro: Microbiology 03/07/21 13:15 Urine Catheter - Nicole Urine Culture - Preliminary Gram positive organism 03/07/21 12:40 Blood Culture (Wb) - Anticubital Left Blood Culture - Preliminary No growth in 48 hours. 03/07/21 12:15 Blood Culture (Wb) - Anticubital Right Blood Culture - Prel iminary No growth in 48 hours. 03/07/21 14:50 Nasal Secretion SARS-CoV-2 Antigen (Rapid) - Final Rhythm Strip Rate: 38 Ectopy: None Physical Exam Const alert, oriented x3 and no apparent distress Constitutional Narrative: Morbidly obese white female, sitting up in bed, appears comfortable, nontoxic, much more awake and interactive today Orientation / Consciousness: lethargic Exam Limitations: no limitations HEENT normocephalic, head/scalp atraumatic, moist oral mucous membranes and oropharynx normal Head and Scalp: normocephalic Eyes PERRL, EOMs intact bilaterally and conjunctivae normal Eyes Narrative: No scleral icterus Neck no lymphadenopathy, supple, no JVD and no carotid bruits Neck Narrative: Redundant thick neck tissue Resp normal respiratory effort, no retractions, no use of accessory muscles and clear to auscultation bilaterally Resp Narrative: Diminished at bases bilaterally Auscultation: Negative for crackles, rales, rhonchi or wheezes Cardio regular rate, regular rhythm, S1 normal heart sound, S2 normal heart sound, no murmurs, no rub, no gallops, no clicks and no JVD Cardio Narrative: Bradycardia distant heart tones secondary to body habitus GI normal to inspection, nondistended, normoactive bowel sounds, soft to palpation, non-tender and non-distended GI Narrative: Obese. Extremity Extremity Narrative: No clubbing or cyanosis, bilateral lower extremity edema- trace to 1+ Peripheral Pulses: Yes pulses 2+ throughout Skin no rashes or lesions noted, no wounds, skin turgor normal, no jaundice, no petechiae and no mottling Skin Narrative: Right lower extremity wound Neuro oriented x3, CN's II-XII intact bilaterally, moves all extremities and no focal motor deficits Neuro Narrative: Generalized weakness noted Sensorium / Orientation: awake and alert Speech: speech normal Psych affect normal Assessment & Plan Assessment/Plan (1) Hypotension: QUALIFIERS: Hypotension type: unspecified hypotension type Qualified Code(s): I95.9 - Hypotension, unspecified (2) Bradycardia: (3) Toxic metabolic encephalopathy: PLAN: Bradycardia -Patient was started on dopamine 03/07/2021 for heart rates in the 30s -Heart rates are improved and in the low 60s while on 5 mcg of dopamine -Patient has been trialed off dopamine with heart rates dipping into the low 50s -She remains off her metoprolol and amiodarone -He has been dialyzed -Bradycardia has been junctional, slow A. fib, and sinus bradycardia with a firs t-degree heart block since admission -Metoprolol and amiodarone are on hold -Cardiology is following and is recommending transfer to tertiary center for evaluation for pacemaker placement as they are concerned she has sick sinus syndrome -Transfer is pending to [facility] for further evaluation -Again discussed case with cardiology today Hypotension -Resolved -Continue to hold antihypertensives Metabolic encephalopathy -Resolved Hypoglycemia -Resolved Hyperkalemia -Remains slightly elevated -Dialysis tomorrow -Dialysis ongoing Monday HFpEF-compensated -Patient with RV dysfunction related to morbid obesity and obstructive sleep apnea -Last echocardiogram was 02/25/2021 that showed an EF of 55% with severe RV dilation and moderate global RV dysfunction, severe tricuspid valve insufficiency -Continue dialysis Hyponatremia -This appears to be chronic -Suspect related to volume -HD tomorrow Chronic anemia secondary to end-stage renal disease -Hemoglobin stable -Monitor Thrombocytopenia -Chronic stable DM-2 -Continue sliding scale at this time -Patient more awake and oral intake has improved -Restart Lantus 20 units twice daily -Continue sliding scale -Hold scheduled Humalog 12 units 3 times daily with meals--> reevaluate tomorrow for reinitiation End-stage renal disease on HD -Continue midodrine with dialysis -Nephrology consulted -HD Monday Seizure disorder -Continue Vimpat Hypertension -Antihypertensives are on hold secondary to hypotension -Hypotension has now resolved but blood pressures are still soft -Monitor closely and reintroduce antihypertensives as able Morbid obesity -Recommend weight loss -Complicates treatment, prognosis, and outcomes DVT prophylaxis -Heparin 3 times daily -Discontinue Lovenox CODE STATUS -DNR CCA no intubation per discussion with family last evening -We will consult palliative care/hospice -It appears that they may have been consulted and involved in the past Charges/Coding Visit Charges Inpatient E&M: 06711 Subs Hosp L3
--- NOTE | 2021-03-09 17:20 | PN.CARD_ITS ---
Subjective Subjective The patient is awake and alert today. She denies any ongoing chest discomfort or acute shortness of breath or dyspnea. Objective Data Vital Signs: Vital Signs Temp Pulse Resp BP Pulse Ox 97.3 F L 52 L 18 109/70 100 03/09/21 16:00 03/09/21 16:00 03/09/21 15:00 03/09/21 16:00 03/09/21 16:00 Oxygen Flow Rate (L/min) 2 Oxygen Delivery Method Nasal Cannula Weight: 208 lb 5.389 oz Body Mass Index (BMI) 39.0 Intake & Output: Intake and Output for Last 24 Hours 03/07/21 03/08/21 03/09/21 23:59 23:59 23:59 Intake Total 1878.86 / 1892.06 552.27 / 761.07 466.6 / 466.6 Output Total 4335 / 4335 150 / 150 Balance 1878.86 / 1792.06 -3782.73 / -3573.93 316.6 / 316.6 Lab / Micro Data Result Diagrams: 03/09/21 04:50 03/09/21 04:50 Labs: Laboratory Results - last 24 hr 03/08/21 17:09: POC Glucose 142 H 03/08/21 21:20: POC Glucose 305 H 03/09/21 04:50: WBC 6.5, RBC 3.12 L, Hgb 10.4 L, Hct 32.5 L, MCV 104.2 H, MCH 33.3 H, MCHC 32.0, RDW Std Deviation 57.6 H, RDW Coeff of Kusum 15.2 H, Plt Count 68 L, MPV 12.8 H, Immature Gran % (Auto) 0.500, Neut % (Auto) 66.6, Lymph % (Auto) 14.5 L, [place] % (Auto) 16.7 H, Eos % (Auto) 1.5, Baso % (Auto) 0.2, Absolute Neuts (auto) 4.3, Absolute Lymphs (auto) 0.94, Nucleated RBC % 0 03/09/21 04:50: Sodium 126 L, Potassium 5.3 H, Chloride 91 L, Carbon Dioxide 28.0, Anion Gap 7, BUN 39 H, Creatinine 2.47 H, Estim Creat Clear Calc 14.85, Est GFR (MDRD) Af Amer 25 L, Est GFR (MDRD) Non-Af 20 L, BUN/Creatinine Ratio 15.8, Glucose 225 H, Calcium 8.0 L 03/09/21 08:31: POC Glucose 179 H 03/09/21 12:20: POC Glucose 311 H Micro: Microbiology 03/07/21 13:15 Urine Catheter - Nicole Urine Culture - Preliminary Gram positive organism 03/07/21 12:40 Blood Culture (Wb) - Anticubital Left Blood Culture - Preliminary No growth in 48 hours. 03/07/21 12:15 Blood Culture (Wb) - Anticubital Right Blood Culture - Preliminary No growth in 48 hours. Rhythm Strip Rate: 38 Ectopy: None Cardiology Labs/Tests 03/09/21 04:50: WBC 6.5, RBC 3.12 L, Hgb 10.4 L, Hct 32.5 L, MCV 104.2 H, MCH 33.3 H, MCHC 32.0, Plt Count 68 L, MPV 12.8 H, Immature Gran % (Auto) 0.500, Neut % (Auto) 66.6, Lymph % (Auto) 14.5 L, [place] % (Auto) 16.7 H, Eos % (Auto) 1.5, Baso % (Auto) 0.2, Absolute Neuts (auto) 4.3, Nucleated RBC % 0 03/09/21 04:50: Sodium 126 L, Potassium 5.3 H, Chloride 91 L, Carbon Dioxide 28.0, Anion Gap 7, BUN 39 H, Creatinine 2.47 H, Est GFR (MDRD) Af Amer 25 L, Est GFR (MDRD) Non-Af 20 L, BUN/Creatinine Ratio 15.8, Glucose 225 H, Calcium 8.0 L Rhythm: Sinus rhythm/sinus bradycardia Physical Exam Narrative This is a 75-year-old white female currently in the ICU who appears to be awake and alert today. HEENT normocephalic, head/scalp atraumatic and hearing grossly normal bilaterally Eyes PERRL, EOMs intact bilaterally and conjunctivae normal Neck full ROM, supple and no JVD Resp clear to auscultation bilaterally Cardio regular rate, regular rhythm, S1 normal heart sound and S2 normal heart sound GI normal to inspection, nondistended, normoactive bowel sounds Extremity General Extremity: edema bilateral lower extremity Details: mild Neuro moves all extremities Assessment & Plan Assessment/Plan (1) Bradycardia: PLAN: The patient demonstrated bradycardia in the form of junctional bradycardia bradycardia. The etiology may be multifactorial. From a medication standpoint there may be a contribution from her right limiting therapy/antiarrhythmic therapy with her beta-blockers and amiodarone. Thus these medications have been placed on hold. She is currently without IV dopamine. Her cardiac rate and rhythm remain compatible with sinus bradycardia with ventricular rates in the low 50s. At the present time based upon her history of atrial fibrillation with RVR requiring rate limiting medications, etc., and her demonstration of the develop ment of a junctional bradycardia while on such medications requiring temporary support with IV dopamine, it appears that the patient may have an underlying sick sinus syndrome/bradycardia tachy syndrome. Thus the patient should be considered for permanent pacemaker support. (2) Atrial fibrillation with rapid ventricular response: PLAN: The patient is reported to have a history of atrial fibrillation with RVR. She had been on beta-carson therapy and amiodarone therapy. At the current time she appears to have developed bradycardia. Thus she is off these medications. (3) (HFpEF) heart failure with preserved ejection fraction: PLAN: The has a history of heart failure with preserved ejection fraction. Her most recent echocardiogram is as noted. At the moment she will continue medical therapy as deemed appropriate taken into consideration concerns of her underlying rate and rhythm and renal insuffi ciency. She continues dialysis to assist with volume control. (4) Non-ST elevation (NSTEMI) myocardial infarction: PLAN: She has a history of a non-ST segment elevation [place] as noted by her previous cardiovascular consultation in January of this year. It is unclear whether this was a type I or type II event brought out by her noncardiac comorbidities at the time including her COVID-19 positive status. At the moment her repeat troponin I levels are negative. She is continuing to be monitored. She will continue conservative medical therapy at this time pending further evaluation and care of her other cardiovascular noncardiovascular issues. (5) Hyperlipidemia: PLAN: She has a history of hyperlipidemia. She will continue medical therapy as deemed appropriate. (6) Benign essential HTN: PLAN: Her blood pressure will be followed with her medications being adjusted accordingly. (7) Diabetes type 2, uncontrolled: QUALIFIERS: Diabetes mellitus complication status: with unspecified complications PLAN: She will continue evaluation care per internal medicine. (8) CKD (chronic kidney disease) stage 4, GFR 15-29 ml/min: PLAN: She continues under evaluation care by internal medicine and nephrology. She is currently receiving hemodialysis therapy. Addt'l Comments Overall, at the present time, the patient will continue to be monitored. She will remain without rate limiting medications. Hopefully she will be able to remain without the IV dopamine. Based upon concerns of a sick sinus syndrome/bradycardia tachy syndrome she should be considered for permanent p acemaker placement. At the present time as this cannot be performed at [facility] she will need to be transferred to a tertiary care center for such a procedure. Her case has been discussed with Dr. Steward. Dr. Steward has been in contact with [facility]. She has been accepted there when a hospital bed becomes available. Thus in the interim she will continue to be monitored and supported as deemed appropriate. This note was generated using a voice recognition system and there may be inco rrect words, spelling or punctuation that were not noted when reviewing the office note prior to saving.
[2021-03-09 17:31] LABS: Bedside Glucose 188 mg/dL (70-110)
[2021-03-09] MEDS: Midodrine HCl 5 MG Tablet PO (18:07)
[2021-03-09] MEDS: proCHLORPERazine 10 MG/2 ML Vial 5 MG IV (20:19)
[2021-03-09] MEDS: 0.9% Saline Lock 10 ML Syringe IV (20:19)
[2021-03-09 20:46] LABS: Bedside Glucose 227 mg/dL (70-110)
[2021-03-10] VITALS (20 sets, daily range): BP systolic 100–142; BP diastolic 44–82; PULSE 51–64; RESP 14–26; TEMP 36.6–36.9; O2SAT 89–100
[2021-03-10 05:00] LABS: Anion Gap 6 (5-15); BUN 51 mg/dL (7-18); BUN/Creat Ratio 16.4 RATIO (10-20); Calcium,Total 7.7 mg/dL (8.5-10.1); Chloride 91 mmol/L (98-107); Creatinine, Serum 3.11 mg/dL (0.55-1.02); EST Glomerular Filtration Rate 16 mL/min (>60); Est Glom Filt Rate - Afr Amer 19 mL/min (>60); Estimated Creatinine Clearance 11.79 ml/min; Glucose 84 mg/dL (74-106); Potassium 4.9 mmol/L (3.5-5.1); Sodium Level 124 mmol/L (136-145)
[2021-03-10 05:05] LABS: Absolute Lymphocyte Count 0.98 X10^3/uL (0.83-4.51); Absolute Neutrophil Count 3.9 X10^3/uL (2.0-7.7); Basophil# 0.04 X10^3/uL; Basophil% 0.7 % (0-1); Eosinophil# 0.12 X10^3/uL; Hematocrit 27.6 % (37-47); Hemoglobin 9.1 g/dL (12.0-15.0); Lymphocyte # 0.98 X10^3/ul (0.83-4.51); Lymphocyte % 16.1 % (19-41); Mean Corpuscular Hgb 34.5 pg (27.0-32.0); Mean Corpuscular Volume 104.5 fL (81-99); Mean Platelet Vol. 11.6 fl (6.2-12.0); Monocyte# 1.01 X10^3/uL; Monocyte% 16.6 % (0-10); NRBC Flagged by Analyzer 0 % (0-5); Neutrophil # 3.92 X10^3/uL (2.7-7.7); Neutrophil % 64.1 % (47-70); POSITIVE COUNT YES; Platelet Count 59 K/mm3 (150-450); RBC Distribution Width CV 14.9 % (11.6-14.6); RBC Distribution Width SD 55.7 fl (35.1-43.9); Red Blood Count 2.64 M/mm3 (4.2-5.4); White Blood Count 6.1 K/mm3 (4.4-11.0)
[2021-03-10 05:08] LABS: Differential Indicated SCAN CRITERIA MET
[2021-03-10 05:11] LABS: Differential Comment SCANNED
[2021-03-10] MEDS: Heparin Injection (Vial) 5,000 UNIT/ML VIAL 5000 UNIT SC ×2 (05:56→21:56)
[2021-03-10 08:40] LABS: Bedside Glucose 67 mg/dL (70-110)
--- NOTE | 2021-03-10 09:05 | PCM.PN.REN ---
Subjective Subjective awake, responsive, no SOB. Episode of hypoglycemia last night. HR 50's. Starting dialysis. DW dialysis nurse Objective Data Objective Data Vital Signs: Vital Signs Temp Pulse Resp BP Pulse Ox 98.4 F 52 L 14 113/59 L 98 03/10/21 04:00 03/10/21 07:00 03/10/21 07:00 03/10/21 07:00 03/10/21 07:00 Oxygen Flow Rate (L/min) 2 Oxygen Delivery Method Nasal Cannula Weight: 94.9 kg Body Mass Index (BMI) 39.0 Intake & Output: Intake and Output for Last 24 Hours 03/08/21 03/09/21 03/10/21 23:59 23:59 23:59 Intake Total 552.27 / 761.07 466.6 / 466.6 0 / 0 Output Total 4335 / 4335 245 / 345 200 / 200 Balance -3782.73 / -3573.93 221.6 / 121.6 -200 / -200 Lab / Micro Data Result Diagrams: 03/10/21 04:35 03/10/21 04:35 Labs: Laboratory Results - last 24 hr 03/09/21 12:20: POC Glucose 311 H 03/09/21 17:19: POC Glucose 188 H 03/09/21 20:30: POC Glucose 227 H 03/10/21 04:35: WBC 6.1, RBC 2.64 L, Hgb 9.1 L, Hct 27.6 L, MCV 104.5 H, MCH 34.5 H, MCHC 33.0, RDW Std Deviation 55.7 H, RDW Coeff of Kusum 14.9 H, Plt Count 59 L, MPV 11.6, Immature Gran % (Auto) 0.500, Neut % (Auto) 64.1, Lymph % (Auto) 16.1 L, [place] % (Auto) 16.6 H, Eos % (Auto) 2.0, Baso % (Auto) 0.7, Absolute Neuts (auto) 3.9, Absolute Lymphs (auto) 0.98, Nucleated RBC % 0, Differential Comment SCANNED 03/10/21 04:35: Sodium 124 L, Potassium 4.9, Chloride 91 L, Carbon Dioxide 27.0, Anion Gap 6, BUN 51 H, Creatinine 3.11 H, Estim Creat Clear Calc 11.79, Est GFR (MDRD) Af Amer 19 L, Est GFR (MDRD) Non-Af 16 L, BUN/Creatinine Ratio 16.4, Glucose 84, Calcium 7.7 L 03/10/21 08:36: POC Glucose 67 L Micro: Microbiology 03/07/21 13:15 Urine Catheter - Nicole Urine Culture - Preliminary Gram positive organism 03/07/21 12:40 Blood Culture (Wb) - Anticubital Left Blood Culture - Preliminary No growth in 48 hours. 03/07/21 12:15 Blood Culture (Wb) - Anticubital Right Blood Culture - Preliminary No growth in 48 hours. 03/07/21 14:50 Nasal Secretion SARS-CoV-2 Antigen (Rapid) - Final Rhythm Strip Rate: 38 Ectopy: None Physical Exam Const alert and oriented x3 Cardio regular rate Rate: bradycardia GI non-tender and non-distended GI Narrative: obese Palpation: soft Extremity Extremity Narrative: improved leg edema Neuro Sensorium / Orientation: awake and alert Assessment & Plan Assessment/Plan (1) ESRD (end stage renal disease) on dialysis: PLAN: seen on dialysis (2) Bradycardia: PLAN: transfer [facility] (3) Hypotension: PLAN: add midodrine daily (4) DM type 2 (diabetes mellitus, type 2): PLAN: hypoglycemia on admission (5) Encephalopathy: PLAN: suspect due to hypoglycemia. Currently ms back to baseline (6) Hyponatremia: PLAN: fluid removal as tolerated on dialysis
--- NOTE | 2021-03-10 10:04 | PN.HOSP_ITS ---
Subjective Subjective Patient's heart rate has consistently been in the 50s off dopamine overnight. She has had no atrial fibrillation. She has had significant atrial fibrillation with difficult to control rate previously. No further episodes of heart rates below 50. Patient states she is currently feeling okay. Objective Data Objective Data Vital Signs: Vital Signs Temp Pulse Resp BP Pulse Ox 98.4 F 52 L 14 113/59 L 98 03/10/21 04:00 03/10/21 07:00 03/10/21 07:00 03/10/21 07:00 03/10/21 07:55 Oxygen Flow Rate (L/min) 2 Oxygen Delivery Method Nasal Cannula Weight: 94.9 kg Body Mass Index (BMI) 39.0 Intake & Output: Intake and Output for Last 24 Hours 03/08/21 03/09/21 03/10/21 23:59 23:59 23:59 Intake Total 552.27 / 761.07 466.6 / 466.6 0 / 0 Output Total 4335 / 4335 245 / 345 200 / 200 Balance -3782.73 / -3573.93 221.6 / 121.6 -200 / -200 Lab / Micro Data Result Diagrams: 03/10/21 04:35 03/10/21 04:35 Labs: Laboratory Results - last 24 hr 03/09/21 12:20: POC Glucose 311 H 03/09/21 17:19: POC Glucose 188 H 03/09/21 20:30: POC Glucose 227 H 03/10/21 04:35: WBC 6.1, RBC 2.64 L, Hgb 9.1 L, Hct 27.6 L, MCV 104.5 H, MCH 34.5 H, MCHC 33.0, RDW Std Deviation 55.7 H, RDW Coeff of Kusum 14.9 H, Plt Count 59 L, MPV 11.6, Immature Gran % (Auto) 0.500, Neut % (Auto) 64.1, Lymph % (Auto) 16.1 L, [place] % (Auto) 16.6 H, Eos % (Auto) 2.0, Baso % (Auto) 0.7, Absolute Neuts (auto) 3.9, Absolute Lymphs (auto) 0.98, Nucleated RBC % 0, Differential Comment SCANNED 03/10/21 04:35: Sodium 124 L, Potassium 4.9, Chloride 91 L, Carbon Dioxide 27.0, Anion Gap 6, BUN 51 H, Creatinine 3.11 H, Estim Creat Clear Calc 11.79, Est GFR (MDRD) Af Amer 19 L, Est GFR (MDRD) Non-Af 16 L, BUN/Creatinine Ratio 16.4, Glucose 84, Calcium 7.7 L 03/10/21 08:36: POC Glucose 67 L Micro: Microbiology 03/07/21 13:15 Urine Catheter - Nicole Urine Culture - Preliminary Gram positive organism 03/07/21 12:40 Blood Culture (Wb) - Anticubital Left Blood Culture - Preliminary No growth in 48 hours. 03/07/21 12:15 Blood Culture (Wb) - Anticubital Right Blood Culture - Preliminary No growth in 48 hours. 03/07/21 14:50 Nasal Secretion SARS-CoV-2 Antigen (Rapid) - Final Rhythm Strip Rate: 38 Ectopy: None Physical Exam Const alert, oriented x3 and no apparent distress Constitutional Narrative: Morbidly obese white female, sitting up in bed playing a game on her cell phone,, appears comfortable, nontoxic, appears close to baseline Orientation / Consciousness: lethargic Exam Limitations: no limitations Nutritional Appearance: obese HEENT normocephalic, head/scalp atraumatic, moist oral mucous membranes and oropharynx normal Head and Scalp: normocephalic Resp normal respiratory effort, no retractions, no use of accessory muscles and clear to auscultation bilaterally Resp Narrative: Diminished at bases bilaterally Auscultation: Negative for crackles, rales, rhonchi or wheezes Cardio regular rate, regular rhythm, S1 normal heart sound, S2 normal heart sound, no murmurs, no rub, no gallops, no clicks and no JVD GI normal to inspection, nondistended, normoactive bowel sounds, soft to palpation, non-tender and non-distended GI Narrative: Obese. Extremity Extremity Narrative: No clubbing or cyanosis, bilateral lower extremity edema- trace to 1+ Peripheral Pulses: Yes pulses 2+ throughout Skin Skin Narrative: Right lower extremity wound Neuro oriented x3, CN's II-XII intact bilaterally, moves all extremities and no focal motor deficits Neuro Narrative: Generalized weakness noted Sensorium / Orientation: awake and alert Speech: speech normal Psych affect normal Assessment & Plan Assessment/Plan (1) Bradycardia: PLAN: Bradycardia -Patient was started on dopamine 03/07/2021 for heart rates in the 30s -Heart rates are improved and in the low 60s while on 5 mcg of dopamine -Patient has been trialed off dopamine with heart rates dipping into the low 50s and has remained there -She remains off her metoprolol and amiodarone -He has been dialyzed -Bradycardia has been junctional, slow A. fib, and sinus bradycardia with a first-degree heart block since admission, but patient also has a history of A. fib with difficult to control RVR -Metoprolol and amiodarone are on hold -Cardiology is still following and is recommending transfer to tertiary center for evaluation for pacemaker placement as they are concerned she has sick sinus syndrome -[facility] has accepted but we are waiting for a bed to open -Again discussed case with cardiology today Hyperkalemia -Resolved HFpEF-compensated -Patient with RV dysfunction related to morbid obesity and obstructive sleep apnea -Last echocardiogram was 02/25/2021 that showed an EF of 55% with severe RV dilation and moderate global RV dysfunction, severe tricuspid valve insufficienc y -Continue dialysis for volume management, patient makes very little urine Hyponatremia -This appears to be chronic -Suspect related to volume -Trending down but due for dialysis today -HD today Chronic anemia secondary to end-stage renal disease -Hemoglobin stable -Monitor Thrombocytopenia -Slight trend were down -Continue to monitor -If downward trend again tomorrow may need to consider stopping heparin subcu DM-2 -Continue sliding scale at this time -Patient more awake and oral intake has improved -Continue Lantus but decrease to 15 units twice daily as patient has had some borderline low blood glucose levels -Continue sliding scale -Hold scheduled Humalog 12 units 3 times daily with meals--> reevaluate tomorrow for reinitiation End-stage renal disease on HD -Continue midodrine with dialysis -Nephrology consulted -HD Monday Seizure disorder -Continue Vimpat Recent COVID-19 infection -Patient remains on oxygen at 2 L nasal cannula with stable oxygen saturations of 97 to 98% -Patient was not oxygen dependent prior to COVID-19 infection -Continue to monitor and wean O2 as able Hypertension -Antihypertensives are on hold secondary to hypotension -Hypotension has now resolved but blood pressures are still soft -Monitor closely and reintroduce antihypertensives as able Morbid obesity -Recommend weight loss -Complicates treatment, prognosis, and outcomes DVT prophylaxis -Heparin 3 times daily -Discontinue Lovenox CODE STATUS -DNR CCA no intubation per discussion with family last evening -We will consult palliative care/hospice -It appears that they may have been consulted and involved in the past Charges/Coding Visit Charges Inpatient E&M: 59045 Subs Hosp L2
[2021-03-10] MEDS: Acetaminophen 325 MG Tablet 650 MG PO (12:28)
[2021-03-10 12:36] LABS: Bedside Glucose 143 mg/dL (70-110)
--- NOTE | 2021-03-10 15:03 | DIALYSIS ---
HD x 3.5 hours complete. Tolerated tx well. UF of 4000ml. Used right chest wall dialysis catheter. Lumens closed with heparin per fill volume. Caps placed. Dressing is dry and intact. Report was given to ERICA Noonan.
--- NOTE | 2021-03-10 15:17 | CASEMGMT ---
ERICA TREVIÑO chart review: Patient has had 4 admission in the last month 02/13-02/15/21 for chest pain, CHF exacerbation, discharged home with [facility]; 02/22-02/27/21 for CHR, Resp failure, and Covid, was discharged to [facility]; 03/01-03/02/21 for hyperglycemia discharged back to [facility]; 03/07/21 to present for Bradycardia and encephalopathy. Patient has ESRD and is on HD 3x per week. Patient seen by cardiology and recommended transfer for pacemaker placement. Patient accepted by [facility] and awaiting bed. Palliative screening tool completed for [employer] [facility] and readmisssion and meets criteria at this time. Hospice referral was made but per [facility], hospice not appropriate due to patient seeking pacer placement. No palliative consult at this time.
[2021-03-10] MEDS: Midodrine HCl 5 MG Tablet PO (15:36)
[2021-03-10] MEDS: Aspirin E.C. 81 MG Tablet PO (15:36)
[2021-03-10] MEDS: Lacosamide 100 MG Tablet PO ×2 (15:36→21:55)
[2021-03-10] MEDS: Heparin 10,000 UNITS/10 ML Vial IV (15:37)
--- NOTE | 2021-03-10 16:08 | PCM.PN.CARD ---
Subjective Subjective The patient was evaluated earlier this day. She had no new acute cardiovascular complaints. She was proceeding with hemodialysis. Objective Data Vital Signs: Vital Signs Temp Pulse Resp BP Pulse Ox 97.8 F 61 18 128/60 H 97 03/10/21 15:41 03/10/21 15:41 03/10/21 15:41 03/10/21 15:41 03/10/21 15:41 Oxygen Flow Rate (L/min) 2 Oxygen Delivery Method Nasal Cannula Weight: 209 lb 3.499 oz Body Mass Index (BMI) 39.0 Intake & Output: Intake and Output for Last 24 Hours 03/08/21 03/09/21 03/10/21 23:59 23:59 23:59 Intake Total 552.27 / 761.07 466.6 / 466.6 500 / 500 Output Total 4335 / 4335 245 / 345 200 / 200 Balance -3782.73 / -3573.93 221.6 / 121.6 300 / 300 Lab / Micro Data Result Diagrams: 03/10/21 04:35 03/10/21 04:35 Labs: Laboratory Results - last 24 hr 03/09/21 17:19: POC Glucose 188 H 03/09/21 20:30: POC Glucose 227 H 03/10/21 04:35: WBC 6.1, RBC 2.64 L, Hgb 9.1 L, Hct 27.6 L, MCV 104.5 H, MCH 34.5 H, MCHC 33.0, RDW Std Deviation 55.7 H, RDW Coeff of [place] 14.9 H, Plt Count 59 L, MPV 11.6, Immature Gran % (Auto) 0.500, Neut % (Auto) 64.1, Lymph % (Auto) 16.1 L, [place] % (Auto) 16.6 H, Eos % (Auto) 2.0, Baso % (Auto) 0.7, Absolute Neuts (auto) 3.9, Absolute Lymphs (auto) 0.98, Nucleated RBC % 0, Differential Comment SCANNED 03/10/21 04:35: Sodium 124 L, Potassium 4.9, Chloride 91 L, Carbon Dioxide 27.0, Anion Gap 6, BUN 51 H, Creatinine 3.11 H, Estim Creat Clear Calc 11.79, Est GFR (MDRD) Af Amer 19 L, Est GFR (MDRD) Non-Af 16 L, BUN/Creatinine Ratio 16.4, Glucose 84, Calcium 7.7 L 03/10/21 08:36: POC Glucose 67 L 03/10/21 12:27: POC Glucose 143 H Micro: Microbiology 03/07/21 13:15 Urine Catheter - Nicole Urine Culture - Final Lactobacillus sp. Rhythm Strip Rate: 38 Ectopy: None Cardiology Labs/Tests 03/10/21 04:35: WBC 6.1, RBC 2.64 L, Hgb 9.1 L, Hct 27.6 L, MCV 104.5 H, MCH 34.5 H, MCHC 33.0, Plt Count 59 L, MPV 11.6, Immature Gran % (Auto) 0.500, Neut % (Auto) 64.1, Lymph % (Auto) 16.1 L, [place] % (Auto) 16.6 H, Eos % (Auto) 2.0, Baso % (Auto) 0.7, Absolute Neuts (auto) 3.9, Nucleated RBC % 0 03/10/21 04:35: Sodium 124 L, Potassium 4.9, Chloride 91 L, Carbon Dioxide 27.0, Anion Gap 6, BUN 51 H, Creatinine 3.11 H, Est GFR (MDRD) Af Amer 19 L, Est GFR (MDRD) Non-Af 16 L, BUN/Creatinine Ratio 16.4, Glucose 84, Calcium 7.7 L Rhythm: Sinus rhythm/sinus bradycardia Physical Exam Narrative This is a 75-year-old white female currently in the ICU who to be in no acute distress Const General Appearance: other Lethargic HEENT normocephalic, head/scalp atraumatic and hearing grossly normal bilaterally Eyes PERRL, EOMs intact bilaterally and conjunctivae normal Neck full ROM, supple and no JVD Resp clear to auscultation bilaterally Cardio regular rate, regular rhythm, S1 normal heart sound and S2 normal heart sound GI normal to inspection, nondistended, normoactive bowel sounds Extremity General Extremity: edema bilateral lower extremity Details: mild Neuro moves all extremities Psych Psych Narrative: Lethargic Assessment & Plan Assessment/Plan (1) Bradycardia: PLAN: The patient demonstrated bradycardia in the form of junctional bradycardia bradycardia. The etiology may be multifactorial. From a medication standpoint there may be a contribution from her right limiting therapy/antiarrhythmic therapy with her beta-blockers and amiodarone. Thus these medications have been placed on hold. She is currently without IV dopamine. Her cardiac rate and rhythm remain compatible with sinus bradycardia with ventricular rates in the low 50s. At the present time based upon her history of atrial fibrillation with RVR requiring rate limiting medications, etc., and her demonstration of the development of a junctional bradycardia while on such medications requiring temporary support with IV dopamine, it appears that the patient may have an underlying sick sinus syndrome/bradycardia tachy syndrome. Thus the patient should be considered for permanent pacemaker support. (2) Atrial fibrillation with rapid ventricular response: PLAN: The patient is reported to have a history of atrial fibrillation with RVR. She had been on beta-carson therapy and amiodarone therapy. At the current time she appears to have developed bradycardia. Thus she is off these medications. (3) (HFpEF) heart failure with preserved ejection fraction: PLAN: The has a history of heart failure with preserved ejection fraction. Her most recent echocardiogram is as noted. At the moment she will continue medical therapy as deemed appropriate taken into consideration concerns of her underlying rate and rhythm and renal insufficiency. She continues dialysis to assist with volume control. (4) Non-ST elevation (NSTEMI) myocardial infarction: PLAN: She has a history of a non-ST segment elevation [place] as noted by her previous cardiovascular consultation in January of this year. It is unclear whether this was a type I or type II event brought out by her noncardiac comorbidities at the time including her COVID-19 positive status. At the moment her repeat troponin I levels are negative. She is continuing to be monitored. She will continue conservative medical therapy at this time pending further evaluation and care of her other cardiovascular noncardiovascular issues. (5) Hyperlipidemia: PLAN: She has a history of hyperlipidemia. She will continue medical therapy as deemed appropriate. (6) Benign essential HTN: PLAN: Her blood pressure will be followed with her medications being adjusted accordingly. (7) Diabetes type 2, uncontrolled: QUALIFIERS: Diabetes mellitus complication status: with unspecified complications PLAN: She will continue evaluation care per internal medicine. (8) CKD (chronic kidney disease) stage 4, GFR 15-29 ml/min: PLAN: She continues under evaluation care by internal medicine and nephrology. She is currently receiving hemodialysis therapy. Addt'l Comments Time the patient will continue to be monitored. If her heart rate becomes low and/or she becomes hemodynamic compromised from a low heart rate then she will need to reinitiate her IV vasopressor agents/dopamine. Otherwise she has pending transfer to [facility] for consideration by electrophysiology for PPM placement. The patient's case has been discussed and reviewed with Dr. Steward.
[2021-03-10 17:16] LABS: Bedside Glucose 85 mg/dL (70-110)
[2021-03-10 22:05] LABS: Bedside Glucose 198 mg/dL (70-110)
[2021-03-11] VITALS (14 sets, daily range): BP systolic 125–168; BP diastolic 56–80; PULSE 58–64; RESP 12–18; TEMP 36.3–36.7; O2SAT 94–99
[2021-03-11] MEDS: Acetaminophen 325 MG Tablet 650 MG PO ×3 (01:09→16:18)
[2021-03-11 02:22] LABS: Absolute Lymphocyte Count 0.74 X10^3/uL (0.83-4.51); Absolute Neutrophil Count 4.4 X10^3/uL (2.0-7.7); Basophil# 0.04 X10^3/uL; Basophil% 0.6 % (0-1); Eosinophil# 0.08 X10^3/uL; Eosinophils% 1.3 % (0-5); Hematocrit 29.2 % (37-47); Hemoglobin 9.4 g/dL (12.0-15.0); Lymphocyte # 0.74 X10^3/ul (0.83-4.51); Lymphocyte % 11.9 % (19-41); Mean Corp Hgb Conc 32.2 g/dL (32-36); Mean Corpuscular Hgb 34.3 pg (27.0-32.0); Mean Corpuscular Volume 106.6 fL (81-99); Mean Platelet Vol. 11.3 fl (6.2-12.0); Monocyte# 0.93 X10^3/uL; NRBC Flagged by Analyzer 0 % (0-5); Neutrophil # 4.39 X10^3/uL (2.7-7.7); Neutrophil % 70.7 % (47-70); POSITIVE COUNT YES; Platelet Count 60 K/mm3 (150-450); RBC Distribution Width CV 14.9 % (11.6-14.6); RBC Distribution Width SD 57.2 fl (35.1-43.9); Red Blood Count 2.74 M/mm3 (4.2-5.4); White Blood Count 6.2 K/mm3 (4.4-11.0)
[2021-03-11 02:23] LABS: Differential Indicated SCAN CRITERIA MET
[2021-03-11 02:44] LABS: Anion Gap 6 (5-15); BUN 30 mg/dL (7-18); BUN/Creat Ratio 14.2 RATIO (10-20); Calcium,Total 7.9 mg/dL (8.5-10.1); Chloride 94 mmol/L (98-107); Creatinine, Serum 2.11 mg/dL (0.55-1.02); EST Glomerular Filtration Rate 24 mL/min (>60); Est Glom Filt Rate - Afr Amer 29 mL/min (>60); Estimated Creatinine Clearance 17.38 ml/min; Glucose 162 mg/dL (74-106); Potassium 4.4 mmol/L (3.5-5.1); Sodium Level 128 mmol/L (136-145)
[2021-03-11] MEDS: 0.9% Saline Lock 10 ML Syringe IV ×2 (06:34→23:23)
[2021-03-11] MEDS: Heparin Injection (Vial) 5,000 UNIT/ML VIAL 5000 UNIT SC ×3 (06:34→21:04)
[2021-03-11 06:46] LABS: Bedside Glucose 117 mg/dL (70-110)
[2021-03-11] MEDS: Aspirin E.C. 81 MG Tablet PO (08:16)
--- NOTE | 2021-03-11 09:35 | PN.CARD_ITS ---
Subjective Subjective The patient is awake and alert. She denies ongoing chest discomfort or an acute change in her respiratory status. Objective Data Vital Signs: Vital Signs Temp Pulse Resp BP Pulse Ox 97.6 F L 60 14 134/60 H 97 03/11/21 07:58 03/11/21 07:58 03/11/21 07:58 03/11/21 07:58 03/11/21 08:00 Oxygen Flow Rate (L/min) 1 Oxygen Delivery Method Nasal Cannula Weight: 204 lb 2.369 oz Body Mass Index (BMI) 39.0 Intake & Output: Intake and Output for Last 24 Hours 03/09/21 03/10/21 03/11/21 23:59 23:59 23:59 Intake Total 466.6 / 466.6 1100 / 1100 240 / 240 Output Total 245 / 345 4200 / 4200 100 / 100 Balance 221.6 / 121.6 -3100 / -3100 140 / 140 Lab / Micro Data Result Diagrams: 03/11/21 02:15 03/11/21 02:15 Labs: Laboratory Results - last 24 hr 03/10/21 12:27: POC Glucose 143 H 03/10/21 17:08: POC Glucose 85 03/10/21 21:59: POC Glucose 198 H 03/11/21 02:15: WBC 6.2, RBC 2.74 L, Hgb 9.4 L, Hct 29.2 L, MCV 106.6 H, MCH 34.3 H, MCHC 32.2, RDW Std Deviation 57.2 H, RDW Coeff of Kusum 14.9 H, Plt Count 60 L, MPV 11.3, Immature Gran % (Auto) 0.500, Neut % (Auto) 70.7 H, Lymph % (Auto) 11.9 L, [place] % (Auto) 15.0 H, Eos % (Auto) 1.3, Baso % (Auto) 0.6, Absolute Neuts (auto) 4.4, Absolute Lymphs (auto) 0.74 L, Nucleated RBC % 0 03/11/21 02:15: Sodium 128 L, Potassium 4.4, Chloride 94 L, Carbon Dioxide 28.0, Anion Gap 6, BUN 30 H, Creatinine 2.11 H, Estim Creat Clear Calc 17.38, Est GFR (MDRD) Af Amer 29 L, Est GFR (MDRD) Non-Af 24 L, BUN/Creatinine Ratio 14.2, Gl ucose 162 H, Calcium 7.9 L 03/11/21 06:31: POC Glucose 117 H Micro: Microbiology 03/07/21 13:15 Urine Catheter - Nicole Urine Culture - Final Lactobacillus sp. Rhythm Strip Rate: 38 Ectopy: None Cardiology Labs/Tests 03/11/21 02:15: WBC 6.2, RBC 2.74 L, Hgb 9.4 L, Hct 29.2 L, MCV 106.6 H, MCH 34.3 H, MCHC 32.2, Plt Count 60 L, MPV 11.3, Immature Gran % (Auto) 0.500, Neut % (Auto) 70.7 H, Lymph % (Auto) 11.9 L, [place] % (Auto) 15.0 H, Eos % (Auto) 1.3, Baso % (Auto) 0.6, Absolute Neuts (auto) 4.4, Nucleated RBC % 0 03/11/21 02:15: Sodium 128 L, Potassium 4.4, Chloride 94 L, Carbon Dioxide 28.0, Anion Gap 6, BUN 30 H, Creatinine 2.11 H, Est GFR (MDRD) Af Amer 29 L, Est GFR (MDRD) Non-Af 24 L, BUN/Creatinine Ratio 14.2, Glucose 162 H, Calcium 7.9 L Rhythm: Sinus rhythm/sinus bradycardia Physical Exam Narrative This is a 75-year-old white female currently in the ICU who to be in no acute distress Const General Appearance: other Lethargic HEENT normocephalic, head/scalp atraumatic and hearing grossly normal bilaterally Eyes PERRL, EOMs intact bilaterally and conjunctivae normal Neck full ROM, supple and no JVD Resp clear to auscultation bilaterally Cardio regular rate, regular rhythm, S1 normal heart sound and S2 normal heart sound GI normal to inspection, nondistended, normoactive bowel sounds Extremity General Extremity: edema bilateral lower extremity Details: mild Neuro moves all extremities Psych Psych Narrative: Lethargic Assessment & Plan Assessment/Plan (1) Bradycardia: PLAN: The patient demonstrated bradycardia in the form of junctional bradycardia bradycardia. The etiology may be multifactorial. From a medication standpoint there may be a contribution from her right limiting therapy/antiarrhythmic therapy with her beta-blockers and amiodarone. Thus these medications have been placed on hold. She is currently without IV dopamine. Her cardiac rate and rhythm remain compatible with sinus bradycardia with ventricular rates in the low 50s. At the present time based upon her history of atrial fibrillation with RVR requiring rate limiting medications, etc., and her demonstration of the development of a junctional bradycardia while on such medications requiring temporary support with IV dopamine, it appears that the patient may have an underlying sick sinus syndrome/bradycardia tachy syndrome. Thus the patient should be considered for permanent pacemaker support. (2) Atrial fibrillation with rapid ventricular response: PLAN: The patient is reported to have a history of atrial fibrillation with RVR. She had been on beta-carson therapy and amiodarone therapy. At the current time she appears to have developed bradycardia. Thus she is off these medications. (3) (HFpEF) heart failure with preserved ejection fraction: PLAN: The has a history of heart failure with preserved ejection fraction. Her most recent echocardiogram is as noted. At the moment she will continue medical therapy as deemed appropriate taken into consideration concerns of her underlying rate and rhythm and renal insufficiency. She continues dialysis to assist with volume control. (4) Non-ST elevation (NSTEMI) myocardial infarction: PLAN: She has a history of a non-ST segment elevation [place] as noted by her previous cardiovascular consultation in January of this year. It is unclear whether this was a type I or type II event brought out by her noncardiac comorbidities at the time including her COVID-19 positive status. At the moment her repeat troponin I levels are negative. She is continuing to be monitored. She will continue conservative medical therapy at this time pending further evaluation and care of her other cardiovascular noncardiovascular issues. (5) Hyperlipidemia: PLAN: She has a history of hyperlipidemia. She will continue medical therapy as deemed appropriate. (6) Benign essential HTN: PLAN: Her blood pressure will be followed with her medications being adjusted accordingly. (7) Diabetes type 2, uncontrolled: QUALIFIERS: Diabetes mellitus complication status: with unspecified complications PLAN: She will continue evaluation care per internal medicine. (8) CKD (chronic kidney disease) stage 4, GFR 15-29 ml/min: PLAN: She continues under evaluation care by internal medicine and nep hrology. She is currently receiving hemodialysis therapy. Addt'l Comments At the present time the patient appears to be hemodynamically stable. She is pending transfer to [facility] for consideration for PPM based upon the aforementioned concerns. In the meantime she continues to be monitored for any obvious recurrence of her bradycardia dysrhythmias or her tacky dysrhythmias. This note was generated using a voice recognition system and there may be incorrect words, spelling or punctuation that were not noted when reviewing the office note prior to saving.
[2021-03-11] MEDS: Midodrine HCl 5 MG Tablet PO (10:38)
[2021-03-11] MEDS: Lacosamide 100 MG Tablet PO ×2 (10:38→21:05)
--- NOTE | 2021-03-11 11:00 | PN.HOSP_ITS ---
Subjective Subjective Patient has no complaints. Heart rates are in the low 60s for the most part. She has had no issues overnight. Voices no complaints. Objective Data Objective Data Vital Signs: Vital Signs Temp Pulse Resp BP Pulse Ox 97.6 F L 60 14 134/60 H 97 03/11/21 07:58 03/11/21 07:58 03/11/21 07:58 03/11/21 07:58 03/11/21 08:00 Oxygen Flow Rate (L/min) 1 Oxygen Delivery Method Nasal Cannula Weight: 92.6 kg Body Mass Index (BMI) 39.0 Intake & Output: Intake and Output for Last 24 Hours 03/09/21 03/10/21 03/11/21 23:59 23:59 23:59 Intake Total 466.6 / 466.6 1100 / 1100 240 / 240 Output Total 245 / 345 4200 / 4200 100 / 100 Balance 221.6 / 121.6 -3100 / -3100 140 / 140 Lab / Micro Data Result Diagrams: 03/11/21 02:15 03/11/21 02:15 Labs: Laboratory Results - last 24 hr 03/10/21 12:27: POC Glucose 143 H 03/10/21 17:08: POC Glucose 85 03/10/21 21:59: POC Glucose 198 H 03/11/21 02:15: WBC 6.2, RBC 2.74 L, Hgb 9.4 L, Hct 29.2 L, MCV 106.6 H, MCH 34.3 H, MCHC 32.2, RDW Std Deviation 57.2 H, RDW Coeff of Kusum 14.9 H, Plt Count 60 L, MPV 11.3, Immature Gran % (Auto) 0.500, Neut % (Auto) 70.7 H, Lymph % (Auto) 11.9 L, [place] % (Auto) 15.0 H, Eos % (Auto) 1.3, Baso % (Auto) 0.6, Absolute Neuts (auto) 4.4, Absolute Lymphs (auto) 0.74 L, Nucleated RBC % 0 03/11/21 02:15: Sodium 128 L, Potassium 4.4, Chloride 94 L, Carbon Dioxide 28.0, Anion Gap 6, BUN 30 H, Creatinine 2.11 H, Estim Creat Clear Calc 17.38, Est GFR (MDRD) Af Amer 29 L, Est GFR (MDRD) Non-Af 24 L, BUN/Creatinine Ratio 14.2, Glucose 162 H, Calcium 7.9 L 03/11/21 06:31: POC Glucose 117 H Micro: Microbiology 03/07/21 13:15 Urine Catheter - Nicole Urine Culture - Final Lactobacillus sp. 03/07/21 12:40 Blood Culture (Wb) - Anticubital Left Blood Culture - Preliminary No growth in 48 hours. 03/07/21 12:15 Blood Culture (Wb) - Anticubital Right Blood Culture - Preliminary No growth in 48 hours. 03/07/21 14:50 Nasal Secretion SARS-CoV-2 Antigen (Rapid) - Final Rhythm Strip Rate: 38 Ectopy: None Physical Exam Const alert, oriented x3 and no apparent distress Constitutional Narrative: Morbidly obese white female, sitting up in bed watching television, appears comfortable, nontoxic, appears close to baseline Orientation / Consciousness: lethargic Exam Limitations: no limitations Nutritional Appearance: obese HEENT normocephalic, head/scalp atraumatic, moist oral mucous membranes and oropharynx normal Head and Scalp: normocephalic Resp normal respiratory effort, no retractions, no use of accessory muscles and clear to auscultation bilaterally Resp Narrative: Diminished at bases bilaterally Auscultation: Negative for crackles, rales, rhonchi or wheezes Cardio regular rate, regular rhythm, S1 normal heart sound, S2 normal heart sound, no murmurs, no rub, no gallops, no clicks and no JVD GI normal to inspection, nondistended, normoactive bowel sounds, soft to palpation, non-tender and non-distended GI Narrative: Obese. Extremity Extremity Narrative: No clubbing or cyanosis, bilateral lower extremity edema- trace to 1+ Peripheral Pulses: Yes pulses 2+ throughout Skin Skin Narrative: Right lower extremity wound Neuro oriented x3, moves all extremities and no focal motor deficits Neuro Narrative: Generalized weakness noted Sensorium / Orientation: awake and alert Speech: speech normal Psych affect normal Assessment & Plan Assessment/Plan (1) Bradycardia: PLAN: Bradycardia -Patient was started on dopamine 03/07/2021 for heart rates in the 30s -Heart rates are improved and in the low 60s while on 5 mcg of dopamine -Patient remains in sinus bradycardia to low rate normal sinus rhythm off the dopamine -She remains off her metoprolol and amiodarone -She is metabolically optimized at this point -Bradycardia has been junctional, slow A. fib, and sinus bradycardia with a first-degree heart block since admission, but patient also has a history of A. fib with difficult to control RVR -Cardiology is still following and is recommending transfer to tertiary center for evaluation for pacemaker placement as they are concerned she has sick sinus syndrome -[facility] accepted but we are waiting for a bed to open HFpEF-compensated -Patient with RV dysfunction related to morbid obesity and obstructive sleep apnea -Last echocardiogram was 02/25/2021 that showed an EF of 55% with severe RV dilation and moderate global RV dysfunction, severe tricuspid valve insufficiency -Continue dialysis for volume management, patient makes very little urine Hyponatremia -This appears to be chronic -Suspect related to volume -Monitor for any marked changes Chronic anemia secondary to end-stage renal disease -Hemoglobin stable -Monitor Thrombocytopenia -Slight trend were down -Continue to monitor -Stable today -Reevaluate tomorrow DM-2 -Continue sliding scale at this time -Patient more awake and oral intake has improved -Continue Lantus 15 units twice daily -Continue sliding scale -Hold scheduled Humalog 12 units 3 times daily with meals--> reevaluate tomorrow for reinitiation End-stage renal disease on HD -Continue midodrine with dialysis -Nephrology following -HD Monday Seizure disorder -Continue Vimpat Recent COVID-19 infection -Patient remains on oxygen at 2 L nasal cannula with stable oxygen saturations of 97 to 98% -Wean oxygen as able -Patient was not oxygen dependent prior to COVID-19 infection -Continue to monitor and wean O2 as able Hypertension -Blood pressures have improved -Restart lisinopril 10 mg daily and monitor for further needs -Monitor closely and reintroduce antihypertensives as able Morbid obesity -Recommend weight loss -Complicates treatment, prognosis, and outcomes DVT prophylaxis -Heparin 3 times daily -Discontinue Lovenox CODE STATUS -DNR CCA no intubation per discussion with family last evening -Palliative care and hospice did meet with the patient but she is not interested in pursuing that at this time and wants to be aggressive with her care
[2021-03-11 11:46] LABS: Bedside Glucose 165 mg/dL (70-110)
[2021-03-11] MEDS: Lisinopril 10 MG Tablet PO (12:32)
[2021-03-11] MEDS: Insulin Lispro 100 UNIT/ML INSULN.PEN SC ×2 (12:32→18:03)
--- NOTE | 2021-03-11 15:49 | NURSING ---
chg rn getting ekg. pt c/o chest pressure 6/10 in center of chest, l chest. pt also c/o sob. po 98% on ra. 2l nc placed for comfort.
[2021-03-11 16:31] LABS: Bedside Glucose 155 mg/dL (70-110)
[2021-03-11 21:21] LABS: Bedside Glucose 176 mg/dL (70-110)
[2021-03-11] MEDS: proCHLORPERazine 10 MG/2 ML Vial 5 MG IV (23:23)
[2021-03-11] MEDS: MELATONIN 3 MG TABLET PO (23:59)
[2021-03-12] VITALS (14 sets, daily range): BP systolic 113–137; BP diastolic 49–59; PULSE 58–68; RESP 16–18; TEMP 36.3–37; O2SAT 95–100
[2021-03-12 04:25] LABS: Absolute Lymphocyte Count 0.77 X10^3/uL (0.83-4.51); Absolute Neutrophil Count 3.8 X10^3/uL (2.0-7.7); Basophil# 0.06 X10^3/uL; Basophil% 1.1 % (0-1); Eosinophils% 1.8 % (0-5); Hematocrit 33.7 % (37-47); Hemoglobin 10.1 g/dL (12.0-15.0); Lymphocyte # 0.77 X10^3/ul (0.83-4.51); Lymphocyte % 13.8 % (19-41); Mean Corpuscular Hgb 34.4 pg (27.0-32.0); Mean Corpuscular Volume 114.6 fL (81-99); Mean Platelet Vol. 11.5 fl (6.2-12.0); Monocyte# 0.85 X10^3/uL; Monocyte% 15.2 % (0-10); NRBC Flagged by Analyzer 0 % (0-5); Neutrophil # 3.78 X10^3/uL (2.7-7.7); Neutrophil % 67.7 % (47-70); POSITIVE COUNT YES; Platelet Count 59 K/mm3 (150-450); RBC Distribution Width CV 15.4 % (11.6-14.6); RBC Distribution Width SD 64.6 fl (35.1-43.9); Red Blood Count 2.94 M/mm3 (4.2-5.4); White Blood Count 5.6 K/mm3 (4.4-11.0)
[2021-03-12 05:06] LABS: Anion Gap 7 (5-15); BUN 41 mg/dL (7-18); Calcium,Total 8.1 mg/dL (8.5-10.1); Chloride 93 mmol/L (98-107); Creatinine, Serum 2.41 mg/dL (0.55-1.02); EST Glomerular Filtration Rate 21 mL/min (>60); Est Glom Filt Rate - Afr Amer 25 mL/min (>60); Estimated Creatinine Clearance 15.22 ml/min; Glucose 111 mg/dL (74-106); Potassium 5.3 mmol/L (3.5-5.1); Sodium Level 123 mmol/L (136-145)
[2021-03-12] MEDS: Heparin Injection (Vial) 5,000 UNIT/ML VIAL 5000 UNIT SC ×3 (06:50→22:37)
[2021-03-12 07:06] LABS: Bedside Glucose 106 mg/dL (70-110)
--- NOTE | 2021-03-12 10:39 | PCM.PN.REN ---
Subjective Subjective seen on dialysis, tolerating 4L fluid removal so far. HR stable. Objective Data Objective Data Vital Signs: Vital Signs Temp Pulse Resp BP Pulse Ox 97.7 F L 61 16 115/50 L 95 03/12/21 08:30 03/12/21 08:30 03/12/21 08:30 03/12/21 08:30 03/12/21 08:30 Oxygen Flow Rate (L/min) 2 Oxygen Delivery Method Room Air Weight: 94.3 kg Body Mass Index (BMI) 39.0 Intake & Output: Intake and Output for Last 24 Hours 03/10/21 03/11/21 03/12/21 23:59 23:59 23:59 Intake Total 1100 / 1100 300 / 300 60 / 60 Output Total 4200 / 4200 100 / 100 40 / 40 Balance -3100 / -3100 200 / 200 20 / 20 Lab / Micro Data Result Diagrams: 03/12/21 04:10 03/12/21 04:10 Labs: Laboratory Results - last 24 hr 03/11/21 11:38: POC Glucose 165 H 03/11/21 16:18: POC Glucose 155 H 03/11/21 21:03: POC Glucose 176 H 03/12/21 04:10: WBC 5.6, RBC 2.94 L, Hgb 10.1 L, Hct 33.7 L, MCV 114.6 H D, MCH 34.4 H, MCHC 30.0 L D, RDW Std Deviation 64.6 H, RDW Coeff of Kusum 15.4 H, Plt Count 59 L, MPV 11.5, Immature Gran % (Auto) 0.400, Neut % (Auto) 67.7, Lymph % (Auto) 13.8 L, [place] % (Auto) 15.2 H, Eos % (Auto) 1.8, Baso % (Auto) 1.1 H, Absolute Neuts (auto) 3.8, Absolute Lymphs (auto) 0.77 L, Nucleated RBC % 0 03/12/21 04:10: Sodium 123 L, Potassium 5.3 H, Chloride 93 L, Carbon Dioxide 23.0, Anion Gap 7, BUN 41 H, Creatinine 2.41 H, Estim Creat Clear Calc 15.22, Est GFR (MDRD) Af Amer 25 L, Est GFR (MDRD) Non-Af 21 L, BUN/Creatinine Ratio 17.0, Glucose 111 H, Calcium 8.1 L 03/12/21 06:55: POC Glucose 106 Micro: Microbiology 03/07/21 13:15 Urine Catheter - Nicole Urine Culture - Final Lactobacillus sp. 03/07/21 12:40 Blood Culture (Wb) - Anticubital Left Blood Culture - Preliminary No growth in 48 hours. 03/07/21 12:15 Blood Culture (Wb) - Anticubital Right Blood Culture - Preliminary No growth in 48 hours. 03/07/21 14:50 Nasal Secretion SARS-CoV-2 Antigen (Rapid) - Final Rhythm Strip Rate: 38 Ectopy: None Physical Exam Const alert and oriented x3 Resp clear to auscultation bilaterally Cardio regular rate GI non-tender Palpation: soft Extremity no clubbing, cyanosis or edema Neuro Sensorium / Orientation: awake and alert Psych cooperative Assessment & Plan Assessment/Plan (1) ESRD (end stage renal disease) on dialysis: PLAN: seen on dialysis (2) Bradycardia: PLAN: transfer for pacemaker evaluation per cardio (3) Hypotension: PLAN: add midodrine daily (4) DM type 2 (diabetes mellitus, type 2): PLAN: hypoglycemia resolved (5) Hyponatremia: PLAN: fluid removal as tolerated on dialysis
--- NOTE | 2021-03-12 11:20 | CASEMGMT ---
SW received a message from pt's rn urgent care with [facility], Shellie Tresmariza, inquiring about the plan for pt. SW called Shellie back, message left letting her know that pt is still awaiting transfer. SW will continue to follow and assist as needed for any social service needs. SILVIO Mathur
--- NOTE | 2021-03-12 11:53 | DIALYSIS ---
HD X 3.5 HOURS ON A 2K BATH. [id number] ENDING IN PROFILE B WITH REFILL. NO MEDS GIVEN- VITALS STABLE- HR IN THE 60'S THE ENTIRE TX- REPORT TO AG MALDONADO
--- NOTE | 2021-03-12 12:00 | CASEMGMT ---
SW spoke w/pt and in room, support offered. SW will continue to follow and to remain available for support and for discharge needs should things change and pt be discharged from here. SILVIO Mathur
[2021-03-12] MEDS: Aspirin E.C. 81 MG Tablet PO (12:15)
[2021-03-12] MEDS: Midodrine HCl 5 MG Tablet PO (12:16)
[2021-03-12] MEDS: Fluticasone 0.05% 1 SPRAY NASAL.SRY 2 SPRAY NASAL (12:16)
[2021-03-12] MEDS: Lisinopril 10 MG Tablet PO (12:17)
[2021-03-12 12:26] LABS: Bedside Glucose 85 mg/dL (70-110)
[2021-03-12] MEDS: Lacosamide 100 MG Tablet PO ×2 (12:42→22:37)
--- NOTE | 2021-03-12 13:09 | PN.CARD_ITS ---
Subjective Subjective The patient is awake and alert. She is status post hemodialysis. She states she is feeling well at this time. She has no new acute complaints. She is preparing to move from the ICU to the PCU. Objective Data Vital Signs: Vital Signs Temp Pulse Resp BP Pulse Ox 98.6 F 63 16 113/50 L 100 03/12/21 12:30 03/12/21 12:30 03/12/21 12:30 03/12/21 12:30 03/12/21 12:30 Oxygen Flow Rate (L/min) 2 Oxygen Delivery Method Room Air Weight: 207 lb 14.334 oz Body Mass Index (BMI) 39.0 Intake & Output: Intake and Output for Last 24 Hours 03/10/21 03/11/21 03/12/21 23:59 23:59 23:59 Intake Total 1100 / 1100 300 / 300 300 / 300 Output Total 4200 / 4200 100 / 100 40 / 40 Balance -3100 / -3100 200 / 200 260 / 260 Lab / Micro Data Result Diagrams: 03/12/21 04:10 03/12/21 04:10 Labs: Laboratory Results - last 24 hr 03/11/21 16:18: POC Glucose 155 H 03/11/21 21:03: POC Glucose 176 H 03/12/21 04:10: WBC 5.6, RBC 2.94 L, Hgb 10.1 L, Hct 33.7 L, MCV 114.6 H D, MCH 34.4 H, MCHC 30.0 L D, RDW Std Deviation 64.6 H, RDW Coeff of Kusum 15.4 H, Plt Count 59 L, MPV 11.5, Immature Gran % (Auto) 0.400, Neut % (Auto) 67.7, Lymph % (Auto) 13.8 L, [place] % (Auto) 15.2 H, Eos % (Auto) 1.8, Baso % (Auto) 1.1 H, Absolute Neuts (auto) 3.8, Absolute Lymphs (auto) 0.77 L, Nucleated RBC % 0 03/12/21 04:10: Sodium 123 L, Potassium 5.3 H, Chloride 93 L, Carbon Dioxide 23.0, Anion Gap 7, BUN 41 H, Creatinine 2.41 H, Estim Creat Clear Calc 15.22, Est GFR (MDRD) Af Amer 25 L, Est GFR (MDRD) Non-Af 21 L, BUN/Creatinine Ratio 17.0, Glucose 111 H, Calcium 8.1 L 03/12/21 06:55: POC Glucose 106 03/12/21 12:21: POC Glucose 85 Rhythm Strip Rate: 38 Ectopy: None Cardiology Labs/Tests 03/12/21 04:10: WBC 5.6, RBC 2.94 L, Hgb 10.1 L, Hct 33.7 L, MCV 114.6 H D, MCH 34.4 H, MCHC 30.0 L D, Plt Count 59 L, MPV 11.5, Immature Gran % (Auto) 0.400, Neut % (Auto) 67.7, Lymph % (Auto) 13.8 L, [place] % (Auto) 15.2 H, Eos % (Auto) 1.8, Baso % (Auto) 1.1 H, Absolute Neuts (auto) 3.8, Nucleated RBC % 0 03/12/21 04:10: Sodium 123 L, Potassium 5.3 H, Chloride 93 L, Carbon Dioxide 23.0, Anion Gap 7, BUN 41 H, Creatinine 2.41 H, Est GFR (MDRD) Af Amer 25 L, Est GFR (MDRD) Non-Af 21 L, BUN/Creatinine Ratio 17.0, Glucose 111 H, Calcium 8.1 L Rhythm: Sinus rhythm Physical Exam Narrative This is a 75-year-old white female currently in the ICU who to be in no acute distress Const General Appearance: other Lethargic HEENT normocephalic, head/scalp atraumatic and hearing grossly normal bilaterally Eyes PERRL, EOMs intact bilaterally and conjunctivae normal Neck full ROM, supple and no JVD Resp clear to auscultation bilaterally Cardio regular rate, regular rhythm, S1 normal heart sound and S2 normal heart sound Heart Sounds: murmur systolic II/ soft mid left sternal border and LVOT GI normal to inspection, nondistended, normoactive bowel sounds Extremity General Extremity: edema bilateral lower extremity Details: mild Neuro moves all extremities Psych Psych Narrative: Lethargic Assessment & Plan Assessment/Plan (1) Bradycardia: PLAN: The patient demonstrated bradycardia in the form of junctional bradycardia bradycardia. The etiology may be multifactorial. From a medication standpoint there may be a contribution from her right limiting therapy/antiarrhythmic therapy with her beta-blockers and amiodarone. Thus these medications have been placed on hold. She is currently without IV dopamine. Her cardiac rate and rhythm remain compatible with sinus bradycardia with ventricular rates in the low 50s. At the present time based upon her history of atrial fibrillation with RVR requiring rate limiting medications, etc., and her demonstration of the development of a junctional bradycardia while on such medications requiring temporary support with IV dopamine, it appears that the patient may have an underlying sick sinus syndrome/bradycardia tachy syndrome. Thus the patient should be considered for permanent pacemaker support. (2) Atrial fibrillation with rapid ventricular response: PLAN: The patient is reported to have a history of atrial fibrillation with RVR. She had been on beta-carson therapy and amiodarone therapy. At the current time she appears to have developed bradycardia. Thus she is off these medications. (3) (HFpEF) heart failure with preserved ejection fraction: PLAN: The has a history of heart failure with preserved ejection fraction. Her most recent echocardiogram is as noted. At the moment she will continue medical therapy as deemed appropriate taken into consideration concerns of her underlying rate and rhythm and renal insufficiency. She continues dialysis to assist with volume control. (4) Non-ST elevation (NSTEMI) myocardial infarction: PLAN: She has a history of a non-ST segment elevation [place] as noted by her previous cardiovascular consultation in January of this year. It is unclear whether this was a type I or type II event brought out by her noncardiac comorbidities at the time including her COVID-19 positive status. At the moment her repeat troponin I levels are negative. She is continuing to be monitored. She will continue conservative medical therapy at this time pending further evaluation and care of her other cardiovascular noncardiovascular issues. (5) Hyperlipidemia: PLAN: She has a history of hyperlipidemia. She will continue medical therapy as deemed appropriate. (6) Benign essential HTN: PLAN: Her blood pressure will be followed with her medications being adjusted accordingly. (7) Diabetes type 2, uncontrolled: QUALIFIERS: Diabetes mellitus complication status: with unspecified complications PLAN: She will continue evaluation care per internal medicine. (8) CKD (chronic kidney disease) stage 4, GFR 15-29 ml/min: PLAN: She continues under evaluation care by internal medicine and nephrology. She is currently receiving hemodialysis therapy. Addt'l Comments At the present time she remains in sinus rhythm. She is remaining off of IV dopamine as well as any rate limiting medications. She is pending transfer to the PCU for further evaluation and care. She is still pending transfer to [facility] for consideration for PPM placement. The patient's case was discussed with the patient and her spouse who was present in her room and her who was on her telephone during the aforementioned conve rsation. Thank you for allowing me to participate in the care of your patient. Please don't hesitate to call if any issues arise.
[2021-03-12] MEDS: Acetaminophen 325 MG Tablet 650 MG PO (15:30)
[2021-03-12] MEDS: Insulin Lispro 100 UNIT/ML INSULN.PEN SC (17:11)
[2021-03-12 17:15] LABS: Bedside Glucose 212 mg/dL (70-110)
--- NOTE | 2021-03-12 20:07 | PCS.PANDOC ---
PANDEMIC DOCUMENTATION INITIATED: Date: 02/15/2021 Time: 190
--- NOTE | 2021-03-12 20:18 | PCM.PN.HOSP ---
Subjective Subjective Patient was seen and examined today in ICU, she appears stable for transfer to PCU at this time, her heart rate was in the 60s and she did not complain of any shortness of breath or chest pain. We still have not received an approval to transfer her to [facility] for further evaluation. Objective Data Objective Data Vital Signs: Vital Signs Temp Pulse Resp BP Pulse Ox 97.7 F L 66 16 137/49 H 96 03/12/21 14:52 03/12/21 19:00 03/12/21 14:52 03/12/21 14:52 03/12/21 14:52 Oxygen Flow Rate (L/min) 2 Oxygen Delivery Method Room Air Weight: 94.3 kg Body Mass Index (BMI) 39.0 Intake & Output: Intake and Output for Last 24 Hours 03/10/21 03/11/21 03/12/21 23:59 23:59 23:59 Intake Total 1100 / 1100 300 / 300 540 / 540 Output Total 4200 / 4200 100 / 100 40 / 40 Balance -3100 / -3100 200 / 200 500 / 500 Lab / Micro Data Result Diagrams: 03/12/21 04:10 03/12/21 04:10 Labs: Laboratory Results - last 24 hr 03/11/21 21:03: POC Glucose 176 H 03/12/21 04:10: WBC 5.6, RBC 2.94 L, Hgb 10.1 L, Hct 33.7 L, MCV 114.6 H D, MCH 34.4 H, MCHC 30.0 L D, RDW Std Deviation 64.6 H, RDW Coeff of [place] 15.4 H, Plt Count 59 L, MPV 11.5, Immature Gran % (Auto) 0.400, Neut % (Auto) 67.7, Lymph % (Auto) 13.8 L, [place] % (Auto) 15.2 H, Eos % (Auto) 1.8, Baso % (Auto) 1.1 H, Absolute Neuts (auto) 3.8, Absolute Lymphs (auto) 0.77 L, Nucleated RBC % 0 03/12/21 04:10: Sodium 123 L, Potassium 5.3 H, Chloride 93 L, Carbon Dioxide 23.0, Anion Gap 7, BUN 41 H, Creatinine 2.41 H, Estim Creat Clear Calc 15.22, Est GFR (MDRD) Af Amer 25 L, Est GFR (MDRD) Non-Af 21 L, BUN/Creatinine Ratio 17.0, Glucose 111 H, Calcium 8.1 L 03/12/21 06:55: POC Glucose 106 03/12/21 12:21: POC Glucose 85 03/12/21 17:08: POC Glucose 212 H Micro: Microbiology 03/07/21 12:40 Blood Culture (Wb) - Anticubital Left Blood Culture - Final No growth in 5 days. 03/07/21 12:15 Blood Culture (Wb) - Anticubital Right Blood Culture - Final No growth in 5 days. 03/07/21 13:15 Urine Catheter - Nicole Urine Culture - Final Lactobacillus sp. 03/07/21 14:50 Nasal Secretion SARS-CoV-2 Antigen (Rapid) - Final Rhythm Strip Rate: 38 Ectopy: None Physical Exam Const alert, oriented x3 and no apparent distress General Appearance: cooperative, well kempt and well developed Orientation / Consciousness: awake, oriented to person, oriented to place and oriented to time HEENT normocephalic and moist oral mucous membranes Eyes PERRL, EOMs intact bilaterally and conjunctivae normal Neck nuchal rigidity, supple, no JVD, thyroid normal and no carotid bruits General: trachea midline Resp normal respiratory effort, no retractions, no use of accessory muscles and clear to auscultation bilaterally Auscultation: Negative for rales, rhonchi or wheezes Cardio regular rate, regular rhythm, S1 normal heart sound, S2 normal heart sound, no murmurs, no rub and no gallops GI normal to inspection, nondistended, normoactive bowel sounds, soft to palpation, non-tender and non-distended Extremity no clubbing, cyanosis or edema Skin no rashes or lesions noted General Skin Exam: no breakdown Neuro oriented x3, CN's II-XII intact bilaterally, no focal motor deficits and no sensory deficits noted Sensorium / Orientation: awake and alert Speech: speech normal Psych thought process normal and affect normal Assessment & Plan Assessment/Plan (1) DM type 2 (diabetes mellitus, type 2): PLAN: 1. Bradycardia-possibly secondary to metoprolol and amiodarone, we are currently awaiting approval for transfer to [facility] for further evaluation, cardiology is seeing her and participating in her care #2 acute on chronic congestive heart failure with preserved ejection fraction-continue dialysis for fluid management, cardiology is participating in her care #3 type 2 diabetes #4 end-stage renal disease on dialysis-patient underwent dialysis today, she will be on a Monday, Monday, Monday schedule while hospitalized. #5 essential hypertension #6 seizure disorder #7 metabolic encephalopathy-this appears to have resolved at this time Charges/Coding Visit Charges Inpatient E&M: 80653 Subs Hosp L2
[2021-03-12] MEDS: MELATONIN 3 MG TABLET PO (22:37)
[2021-03-12 22:46] LABS: Bedside Glucose 200 mg/dL (70-110)
[2021-03-13] VITALS (10 sets, daily range): BP systolic 128–159; BP diastolic 41–87; PULSE 62–80; RESP 18; TEMP 36.6–37; O2SAT 95–99
[2021-03-13] MEDS: Insulin Lispro 100 UNIT/ML INSULN.PEN SC ×3 (06:34→17:18)
[2021-03-13 06:41] LABS: Bedside Glucose 175 mg/dL (70-110)
[2021-03-13] MEDS: Aspirin E.C. 81 MG Tablet PO (09:11)
[2021-03-13] MEDS: Midodrine HCl 5 MG Tablet PO (09:11)
[2021-03-13] MEDS: Lisinopril 10 MG Tablet PO (09:11)
[2021-03-13] MEDS: Fluticasone 0.05% 1 SPRAY NASAL.SRY 2 SPRAY NASAL (09:14)
[2021-03-13] MEDS: Lacosamide 100 MG Tablet PO ×2 (09:22→22:43)
[2021-03-13 12:11] LABS: Bedside Glucose 248 mg/dL (70-110)
--- NOTE | 2021-03-13 15:15 | PCM.PN.CARD ---
Subjective Subjective Patient seen and evaluated today Sitting out in a chair no symptoms of chest pain reported no dizziness or lightheadedness. Objective Data Vital Signs: Vital Signs Temp Pulse Resp BP Pulse Ox 98.0 F 62 18 128/53 H 95 03/13/21 09:25 03/13/21 14:38 03/13/21 09:25 03/13/21 09:25 03/13/21 09:25 Oxygen Flow Rate (L/min) 2 Oxygen Delivery Method Room Air Weight: 207 lb 14.334 oz Body Mass Index (BMI) 39.0 Intake & Output: Intake and Output for Last 24 Hours 03/11/21 03/12/21 03/13/21 23:59 23:59 23:59 Intake Total 300 / 300 540 / 740 200 / 200 Output Total 100 / 100 40 / 40 Balance 200 / 200 500 / 700 200 / 200 Lab / Micro Data Result Diagrams: 03/12/21 04:10 03/12/21 04:10 Labs: Laboratory Results - last 24 hr 03/12/21 17:08: POC Glucose 212 H 03/12/21 22:34: POC Glucose 200 H 03/13/21 06:33: POC Glucose 175 H 03/13/21 12:03: POC Glucose 248 H Micro: Microbiology 03/07/21 12:40 Blood Culture (Wb) - Anticubital Left Blood Culture - Final No growth in 5 days. 03/07/21 12:15 Blood Culture (Wb) - Anticubital Right Blood Culture - Final No growth in 5 days. Rhythm Strip Rate: 38 Ectopy: None Cardiology Labs/Tests Rhythm: Normal sinus heart rate in the range of 60s Assessment & Plan Assessment/Plan (1) COVID-19: (2) Toxic metabolic encephalopathy: (3) (HFpEF) heart failure with preserved ejection fraction: (4) Non-ST elevation (NSTEMI) myocardial infarction: (5) CKD (chronic kidney disease) stage 4, GFR 15-29 ml/min: (6) Atrial fibrillation with rapid ventricular response: PLAN: Patient with paroxysmal atrial fibrillation Currently in sinus rhythm heart rate around 60s of dopamine Of AV blocking medications. Paroxysmal atrial fibrillation with tachybradycardia syndrome Currently in normal sinus and stable hemodynamically. Patient has metabolic encephalopathy resolved, with COVID-19. Patient with type 2 diabetes mellitus, end-stage renal disease stage IV. Patient awake transferred to [facility] [place] to discuss and evaluate for permanent pacemaker implant We will continue to monitor on cardiac telemetry and continue to follow-up clinically.
[2021-03-13] MEDS: Lactulose 20 GM/30 ML UDC 30 GM PO (17:11)
[2021-03-13 17:31] LABS: Bedside Glucose 194 mg/dL (70-110)
--- NOTE | 2021-03-13 19:58 | PN.HOSP_ITS ---
Subjective Subjective Patient was seen and examined today, her pulse rate remains in the 60s, she complains of constipation, she has no complaints of any chest pain or shortness of breath. We still have not received approval for transfer of the patient to [facility] at this time. Objective Data Objective Data Vital Signs: Vital Signs Temp Pulse Resp BP Pulse Ox 98.6 F 80 18 159/58 H 99 03/13/21 15:30 03/13/21 17:00 03/13/21 15:30 03/13/21 15:30 03/13/21 15:30 Oxygen Flow Rate (L/min) 2 Oxygen Delivery Method Room Air Weight: 94.3 kg Body Mass Index (BMI) 39.0 Intake & Output: Intake and Output for Last 24 Hours 03/11/21 03/12/21 03/13/21 23:59 23:59 23:59 Intake Total 300 / 300 540 / 740 200 / 200 Output Total 100 / 100 40 / 40 Balance 200 / 200 500 / 700 200 / 200 Lab / Micro Data Result Diagrams: 03/12/21 04:10 03/12/21 04:10 Labs: Laboratory Results - last 24 hr 03/12/21 22:34: POC Glucose 200 H 03/13/21 06:33: POC Glucose 175 H 03/13/21 12:03: POC Glucose 248 H 03/13/21 17:17: POC Glucose 194 H Micro: Microbiology 03/07/21 12:40 Blood Culture (Wb) - Anticubital Left Blood Culture - Final No growth in 5 days. 03/07/21 12:15 Blood Culture (Wb) - Anticubital Right Blood Culture - Final No growth in 5 days. 03/07/21 13:15 Urine Catheter - Nicole Urine Culture - Final Lactobacillus sp. 03/07/21 14:50 Nasal Secretion SARS-CoV-2 Antigen (Rapid) - Final Rhythm Strip Rate: 38 Ectopy: None Physical Exam Narrative Const alert, oriented x3 and no apparent distress General Appearance: cooperative, well kempt and well developed Orientation / Consciousness: awake, oriented to person, oriented to place and oriented to time HEENT normocephalic and moist oral mucous membranes Eyes PERRL, EOMs intact bilaterally and conjunctivae normal Neck nuchal rigidity, supple, no JVD, thyroid normal and no carotid bruits General: trachea midline Resp normal respiratory effort, no retractions, no use of accessory muscles and clear to auscultation bilaterally Auscultation: Negative for rales, rhonchi or wheezes Cardio regular rate, regular rhythm, S1 normal heart sound, S2 normal heart sound, no murmurs, no rub and no gallops GI normal to inspection, nondistended, normoactive bowel sounds, soft to palpation, non-tender and non-distended Extremity no clubbing, cyanosis or edema Skin no rashes or lesions noted General Skin Exam: no breakdown Neuro oriented x3, CN's II-XII intact bilaterally, no focal motor deficits and no sensory deficits noted Sensorium / Orientation: awake and alert Speech: speech normal Psych thought process normal and affect normal Assessment & Plan Assessment/Plan (1) Bradycardia: (2) DM type 2 (diabetes mellitus, type 2): PLAN: 1. Bradycardia-possibly secondary to metoprolol and amiodarone, we are currently awaiting approval for transfer to [facility] for further evaluation, cardiology is seeing her and participating in her care, her pulse rate today has remained in the 60s #2 acute on chronic congestive heart failure with preserved ejection fraction- continue dialysis for fluid management, cardiology is participating in her care #3 type 2 diabetes #4 end-stage renal disease on dialysis-patient underwent dialysis today, she will be on a Monday, Monday, Monday schedule while hospitalized. #5 essential hypertension #6 seizure disorder #7 metabolic encephalopathy-this appears to have resolved at this time Charges/Coding Visit Charges Inpatient E&M: 22324 Subs Hosp L2
[2021-03-13] MEDS: MELATONIN 3 MG TABLET PO (22:31)
[2021-03-13 22:51] LABS: Bedside Glucose 240 mg/dL (70-110)
[2021-03-14] VITALS (8 sets, daily range): BP systolic 138–151; BP diastolic 53–99; PULSE 60–70; RESP 14–18; TEMP 36.6–37.2; O2SAT 95–99
[2021-03-14 06:41] LABS: Bedside Glucose 120 mg/dL (70-110)
[2021-03-14] MEDS: Aspirin E.C. 81 MG Tablet PO (09:01)
[2021-03-14] MEDS: Midodrine HCl 5 MG Tablet PO (09:01)
[2021-03-14] MEDS: Lisinopril 10 MG Tablet PO (09:01)
[2021-03-14] MEDS: Lacosamide 100 MG Tablet PO ×2 (09:05→20:30)
[2021-03-14 11:45] LABS: Bedside Glucose 215 mg/dL (70-110)
[2021-03-14] MEDS: Insulin Lispro 100 UNIT/ML INSULN.PEN SC (11:45)
--- NOTE | 2021-03-14 13:53 | PCM.PN.CARD ---
Subjective Subjective Seen and evaluated at bedside today Stable clinically no symptoms reported today. Still awaiting for transfer to [facility] for permanent pacemaker evaluation Objective Data Vital Signs: Vital Signs Temp Pulse Resp BP Pulse Ox 98.5 F 67 14 142/53 H 99 03/14/21 08:58 03/14/21 08:58 03/14/21 08:58 03/14/21 08:58 03/14/21 08:58 Oxygen Flow Rate (L/min) 2 Oxygen Delivery Method Room Air Weight: 208 lb 8.917 oz Body Mass Index (BMI) 39.0 Intake & Output: Intake and Output for Last 24 Hours 03/12/21 03/13/21 03/14/21 23:59 23:59 23:59 Intake Total 540 / 740 200 / 500 600 / 600 Output Total 40 / 40 100 / 100 Balance 500 / 700 200 / 500 500 / 500 Lab / Micro Data Result Diagrams: 03/12/21 04:10 03/12/21 04:10 Labs: Laboratory Results - last 24 hr 03/13/21 17:17: POC Glucose 194 H 03/13/21 22:24: POC Glucose 240 H 03/14/21 06:32: POC Glucose 120 H 03/14/21 11:41: POC Glucose 215 H Rhythm Strip Rate: 38 Ectopy: None Cardiology Labs/Tests Rhythm: Normal sinus rhythm Physical Exam Narrative Review of cardiac telemetry reveals underlying normal sinus Cardiovascular examination S1-S2 is regular there is no murmur no systolic or diastolic murmur Chest exam is clear to auscultation bilateral Examination abdomen soft Examination lower extremity no clubbing no cyanosis no extremity edema Central nervous system exam no focal neurological deficit noted. Assessment & Plan Assessment/Plan (1) Non-ST elevation (NSTEMI) myocardial infarction: (2) CKD (chronic kidney disease) stage 4, GFR 15-29 ml/min: (3) Toxic metabolic encephalopathy: (4) Atrial fibrillation with rapid ventricular response: PLAN: This patient with bradycardia and was on AV blocking medication with amiodarone and metoprolol which is on hold With tachybradycardia syndrome underlying paroxysmal atrial fibrillation and plan was to transfer to [facility] She remains stable clinically and her heart rate is in the range of 60. Patient is well has acute on chronic CHF with diastolic heart failure and preserved LV systolic function, end-stage renal disease with hypertension and diabetes mellitus. She been stable hemodynamically and she had no symptoms reported. Cardiac recommendation and plan; Continue monitoring on cardiac telemetry Patient with transfer to [facility]. Primary route agent will resume care.
[2021-03-14 16:31] LABS: Bedside Glucose 129 mg/dL (70-110)
--- NOTE | 2021-03-14 18:37 | PN.HOSP_ITS ---
Subjective Subjective Patient was seen and examined today, she is resting quietly, monitor does not show any episodes of severe bradycardia. I talked to the by phone today and told him that I would have cardiology reevaluate her tomorrow to see if she needs to be transferred to the clinic. Objective Data Objective Data Vital Signs: Vital Signs Temp Pulse Resp BP Pulse Ox 98.0 F 60 16 151/65 H 95 03/14/21 15:00 03/14/21 15:00 03/14/21 15:00 03/14/21 15:00 03/14/21 15:00 Oxygen Flow Rate (L/min) 2 Oxygen Delivery Method Room Air Weight: 94.6 kg Body Mass Index (BMI) 39.0 Intake & Output: Intake and Output for Last 24 Hours 03/12/21 03/13/21 03/14/21 23:59 23:59 23:59 Intake Total 540 / 740 200 / 500 600 / 600 Output Total 40 / 40 100 / 100 Balance 500 / 700 200 / 500 500 / 500 Lab / Micro Data Result Diagrams: 03/12/21 04:10 03/12/21 04:10 Labs: Laboratory Results - last 24 hr 03/13/21 22:24: POC Glucose 240 H 03/14/21 06:32: POC Glucose 120 H 03/14/21 11:41: POC Glucose 215 H 03/14/21 16:25: POC Glucose 129 H Micro: Microbiology 03/07/21 12:40 Blood Culture (Wb) - Anticubital Left Blood Culture - Final No growth in 5 days. 03/07/21 12:15 Blood Culture (Wb) - Anticubital Right Blood Culture - Final No growth in 5 days. 03/07/21 13:15 Urine Catheter - Nicole Urine Culture - Final Lactobacillus sp. 03/07/21 14:50 Nasal Secretion SARS-CoV-2 Antigen (Rapid) - Final Rhythm Strip Rate: 38 Ectopy: None Physical Exam Const alert, oriented x3 and no apparent distress General Appearance: cooperative, well kempt and well developed Orientation / Consciousness: awake, oriented to person, oriented to place and oriented to time HEENT normocephalic, head/scalp atraumatic and moist oral mucous membranes Head and Scalp: normocephalic Eyes PERRL, EOMs intact bilaterally and conjunctivae normal Neck nuchal rigidity, supple, no JVD, thyroid normal and no carotid bruits General: trachea midline Resp normal respiratory effort, no retractions, no use of accessory muscles and clear to auscultation bilaterally Auscultation: Negative for rales, rhonchi or wheezes Cardio regular rate, regular rhythm, no murmurs, no rub and no gallops GI normal to inspection, nondistended, normoactive bowel sounds, soft to palpation, non-tender and non-distended Extremity no clubbing, cyanosis or edema Skin no rashes or lesions noted General Skin Exam: no breakdown Neuro oriented x3, CN's II-XII intact bilaterally, no focal motor deficits and no sensory deficits noted Sensorium / Orientation: awake and alert Speech: speech normal Psych thought process normal and affect normal Assessment & Plan Assessment/Plan (1) Bradycardia: (2) DM type 2 (diabetes mellitus, type 2): PLAN: 1. Bradycardia-possibly secondary to metoprolol and amiodarone, patient has not had recurrent episodes of severe bradycardia in the last 48 hours, I talked with cardiology today and they did not feel the patient needed to be transferred to [facility] and I feel the same way. I talked with the briefly by phone, nursing will contact him and let him know that she will not to be transferred to the [facility]. We will make arrangements tomorrow for her to return home after dialysis hopefully. #2 acute on chronic congestive heart failure with preserved ejection fraction- continue dialysis for fluid management, cardiology is participating in her care #3 type 2 diabetes #4 end-stage renal disease on dialysis-patient underwent dialysis today, she will be on a Monday, Monday, Monday schedule while hospitalized. #5 essential hypertension #6 seizure disorder #7 metabolic encephalopathy-this appears to have resolved at this time Charges/Coding Visit Charges Inpatient E&M: 83531 Subs Hosp L2
[2021-03-14] MEDS: MELATONIN 3 MG TABLET PO (20:30)
[2021-03-14 20:40] LABS: Bedside Glucose 203 mg/dL (70-110)
[2021-03-14] MEDS: Acetaminophen 325 MG Tablet 650 MG PO (20:40)
[2021-03-15] VITALS (8 sets, daily range): BP systolic 103–155; BP diastolic 41–58; PULSE 63–77; RESP 14–18; TEMP 36.1–36.6; O2SAT 96–98
[2021-03-15] MEDS: Acetaminophen 325 MG Tablet 650 MG PO ×2 (04:40→11:07)
[2021-03-15 06:15] LABS: Bedside Glucose 83 mg/dL (70-110)
[2021-03-15 06:23] LABS: Albumin, Serum 2.3 g/dL (3.2-5.0); BUN 46 mg/dL (7-18); BUN/Creat Ratio 21.9 RATIO (10-20); Calcium,Total 8.5 mg/dL (8.5-10.1); Chloride 92 mmol/L (98-107); EST Glomerular Filtration Rate 24 mL/min (>60); Est Glom Filt Rate - Afr Amer 30 mL/min (>60); Estimated Creatinine Clearance 17.47 ml/min; Glucose 79 mg/dL (74-106); Potassium 4.6 mmol/L (3.5-5.1); Sodium Level 126 mmol/L (136-145)
--- NOTE | 2021-03-15 08:44 | PN.CARD_ITS ---
Subjective Subjective Patient seen and evaluated. Appears to be doing much better. Receiving dialysis at this time. Objective Data Vital Signs: Vital Signs Temp Pulse Resp BP Pulse Ox 97.9 F 68 18 155/58 H 98 03/15/21 02:44 03/15/21 06:30 03/15/21 02:44 03/15/21 02:44 03/15/21 02:44 Oxygen Flow Rate (L/min) 2 Oxygen Delivery Method Room Air Weight: 202 lb 13.204 oz Body Mass Index (BMI) 39.0 Intake & Output: Intake and Output for Last 24 Hours 03/13/21 03/14/21 03/15/21 23:59 23:59 23:59 Intake Total 200 / 500 900 / 900 200 / 200 Output Total 600 / 600 125 / 125 Balance 200 / 500 300 / 300 75 / 75 Lab / Micro Data Result Diagrams: 03/12/21 04:10 03/15/21 05:30 Labs: Laboratory Results - last 24 hr 03/14/21 11:41: POC Glucose 215 H 03/14/21 16:25: POC Glucose 129 H 03/14/21 20:32: POC Glucose 203 H 03/15/21 05:30: Sodium 126 L, Potassium 4.6, Chloride 92 L, Carbon Dioxide 27.0, BUN 46 H, Creatinine 2.10 H, Estim Creat Clear Calc 17.47, Est GFR (MDRD) Af Amer 30 L, Est GFR (MDRD) Non-Af 24 L, BUN/Creatinine Ratio 21.9 H, Glucose 79, Calcium 8.5, Phosphorus 4.0, Albumin 2.3 L 03/15/21 06:12: POC Glucose 83 Rhythm Strip Rate: 38 Ectopy: None Cardiology Labs/Tests 03/15/21 05:30: Sodium 126 L, Potassium 4.6, Chloride 92 L, Carbon Dioxide 27.0, BUN 46 H, Creatinine 2.10 H, Est GFR (MDRD) Af Amer 30 L, Est GFR (MDRD) Non-Af 24 L, BUN/Creatinine Ratio 21.9 H, Glucose 79, Calcium 8.5, Phosphorus 4.0 Rhythm: Normal sinus rhythm EKG: ECHO: Stress Test: Cardiac Cath: PCI: CT Surgery: Holter monitor: EPS: PPM: CXR: Chest CT Scan: Physical Exam Const alert, oriented x3 and no apparent distress General Appearance: cooperative HEENT hearing grossly normal bilaterally Head and Scalp: atraumatic Eyes EOMs intact bilaterally Neck General: normal visual inspection Chest inspection of chest normal and palpation of chest normal Resp normal respiratory effort Auscultation: clear to auscultation bilaterally Cardio regular rate, regular rhythm, S1 normal heart sound and S2 normal heart sound Jugular Venous Distention: JVD GI normal to inspection, nondistended, normoactive bowel sounds Extremity normal capillary refill and no pedal edema Peripheral Pulses: Yes pulses 2+ throughout and femoral pulses present Skin no rashes or lesions noted Neuro oriented x3 and CN's II-XII intact bilaterally Psych Appearance: grossly normal and appropriate Assessment & Plan Assessment/Plan (1) Non-ST elevation (NSTEMI) myocardial infarction: PLAN: Patient has mild cardiac enzyme elevation. The plan to be to continue the current medical therapy with no acute changes. There are no plans at this time for any invasive cardiac work-up. (2) Atrial fibrillation with rapid ventricular response: PLAN: This patient with bradycardia and was on AV blocking medication with amiodarone and metoprolol which is on hold With tachybradycardia syndrome underlying paroxysmal atrial fibrillation and plan was to transfer to [facility] She remains stable clinically and her heart rate is in the range of 60. Patient is well has acute on chronic CHF with diastolic heart failure and preserved LV systolic function, end-stage renal disease with hypertension and diabetes mellitus. She been stable hemodynamically and she had no symptoms reported. My recommendation at this time will be for her to continue the current medical therapy. I will hold off on any transfer to the tertiary care facility at this point. If she remains stable off medications we can plan a Holter monitor and then slowly reintroduce her medications as necessary. The above assessment discussed with patient, nursing staff and hospitalist.
--- NOTE | 2021-03-15 09:00 | PN.RENAL_ITS ---
Subjective Subjective seen on dialysis, attempt 4L fluid removal as tolerated for hyponatremia. Objective Data Objective Data Vital Signs: Vital Signs Temp Pulse Resp BP Pulse Ox 97.9 F 68 18 155/58 H 98 03/15/21 02:44 03/15/21 06:30 03/15/21 02:44 03/15/21 02:44 03/15/21 02:44 Oxygen Flow Rate (L/min) 2 Oxygen Delivery Method Room Air Weight: 92 kg Body Mass Index (BMI) 39.0 Intake & Output: Intake and Output for Last 24 Hours 03/13/21 03/14/21 03/15/21 23:59 23:59 23:59 Intake Total 200 / 500 900 / 900 200 / 200 Output Total 600 / 600 125 / 125 Balance 200 / 500 300 / 300 75 / 75 Lab / Micro Data Result Diagrams: 03/12/21 04:10 03/15/21 05:30 Labs: Laboratory Results - last 24 hr 03/14/21 11:41: POC Glucose 215 H 03/14/21 16:25: POC Glucose 129 H 03/14/21 20:32: POC Glucose 203 H 03/15/21 05:30: Sodium 126 L, Potassium 4.6, Chloride 92 L, Carbon Dioxide 27.0, BUN 46 H, Creatinine 2.10 H, Estim Creat Clear Calc 17.47, Est GFR (MDRD) Af Amer 30 L, Est GFR (MDRD) Non-Af 24 L, BUN/Creatinine Ratio 21.9 H, Glucose 79, Calcium 8.5, Phosphorus 4.0, Albumin 2.3 L 03/15/21 06:12: POC Glucose 83 Micro: Microbiology 03/07/21 12:40 Blood Culture (Wb) - Anticubital Left Blood Culture - Final No growth in 5 days. 03/07/21 12:15 Blood Culture (Wb) - Anticubital Right Blood Culture - Final No growth in 5 days. 03/07/21 13:15 Urine Catheter - Nicole Urine Culture - Final Lactobacillus sp. 03/07/21 14:50 Nasal Secretion SARS-CoV-2 Antigen (Rapid) - Final Rhythm Strip Rate: 38 Ectopy: None Physical Exam Const alert and oriented x3 Resp clear to auscultation bilaterally Cardio regular rate GI non-tender Palpation: soft Extremity Extremity Narrative: mild BLE edema General Extremity: edema bilateral Neuro Sensorium / Orientation: alert Psych cooperative Assessment & Plan Assessment/Plan (1) ESRD (end stage renal disease) on dialysis: PLAN: seen on dialysis, HD THS schedule at [facility] [place] (precovid schedule) if discharged to home. She was at [facility] dialysis program prior to current hospitalization. (2) Hyponatremia: PLAN: fluid removal as tolerated on dialysis (3) Bradycardia: PLAN: resolved, cardio following (4) DM type 2 (diabetes mellitus, type 2): PLAN: hypoglycemia resolved
[2021-03-15] MEDS: Fluticasone 0.05% 1 SPRAY NASAL.SRY 2 SPRAY NASAL (10:20)
[2021-03-15] MEDS: Lacosamide 100 MG Tablet PO (10:25)
--- NOTE | 2021-03-15 12:06 | DIALYSIS ---
HD x 3.5 hours complete. Tolerated tx fairly well. UF of 3500ml. Used right chest wall dialysis catheter. Lumens closed with heparin per fill volume. Caps placed. Dressing is dry and intact. Report was given to ERICA Duncan.
[2021-03-15 12:11] LABS: Bedside Glucose 131 mg/dL (70-110)
[2021-03-15] MEDS: Aspirin E.C. 81 MG Tablet PO (12:11)
[2021-03-15] MEDS: Heparin 10,000 UNITS/10 ML Vial IV (12:11)
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
--- NOTE | 2021-03-15 12:52 | CASEMGMT ---
This ERICA CM to room to discuss discharge plan with pt. Pt states plans to go home but would like [facility] SN/PT/OT set up again at d/c. Referral faxed to [facility] and call to [facility] to notify of referral. Pt voices no further questions/concerns/needs. Pt will go back to her TTS OP dialysis schedule with her next treatment being . SStbradly MALDONADO CM
[2021-03-15] MEDS: Lisinopril 10 MG Tablet PO (13:05)
--- NOTE | 2021-03-15 16:08 | NURSING ---
This RN reviewed SN charting
[2021-03-15 16:56] LABS: Bedside Glucose 143 mg/dL (70-110)
--- NOTE | 2021-03-15 17:00 | PCM.DC ---
Discharge Instructions Diet Discharge Diet: 1800 Calorie Control Diet Activity Discharge Activity: Return to Normal Activity Weight Bearing Status: Full weight bearing Follow Up Care Test Results: Test results from this visit will be discussed in further detail at your follow-up appointment, if applicable. Discharge Plan Admission Admit Date/Time: 03/07/21 14:56 Primary Reason for Your Visit: bradycardia Attending Provider: Isiah Cameron Primary Care Provider: Bailey Toribio Consulting Providers: Jhoana Sarmiento ; Alize Canchola ; Man Mac ; Trena Arzola ; Akilah Mendez ; Anabela Asif ; Martha Seals NP ; Christine Steward Instructions Additional Instructions / Restrictions: Call your director of labor relations office (Dr. Ramirez) to arrange for a 24-hour Holter monitor Discharge Orders/Prescriptions Prescriptions: New aspirin 81 mg Tablet,Delayed Release (Dr/Ec) 81 mg PO DAILYCM Qty: 1 RF: 0 Lantus Solostar U-100 Insulin 100 unit/mL (3 mL) Insulin Pen 15 unit subcut BID Qty: 0 RF: 0 Continued atorvastatin 10 MG tablet 10 mg PO QHS RF: 0 ergocalciferol (vitamin D2) 50,000 UNIT capsule 50,000 unit PO KELLOGG RF: 0 escitalopram oxalate 10 MG tablet 10 mg PO DAILY RF: 0 lisinopril 10 MG tablet 10 mg PO DAILY RF: 0 fluticasone propionate 50 mcg/actuation [place],Suspension 2 spray INTRANASAL DAILY RF: 0 Vimpat 100 mg tablet 100 mg PO BID RF: 0 aspirin 81 mg tablet,delayed release (DR/EC) 81 mg PO DAILY RF: 0 B complex-vitamin C-folic acid 1 mg Tablet 1 tab PO DAILY RF: 0 Discontinued trazodone 50 mg tablet 25 mg PO QHS RF: 0 amlodipine 10 MG tablet 10 mg PO DAILY RF: 0 metoprolol succinate 50 MG tablet extended release 24 hr 75 mg PO DAILY RF: 0 isosorbide mononitrate 30 MG tablet extended release 24 hr 30 mg PO DAILY RF: 0 midodrine 5 mg Tablet 5 mg PO TUTHSA RF: 0 fexofenadine [Veronica Allergy] 60 mg Tablet 60 mg PO DAILY RF: 0 gabapentin 100 mg capsule 200 mg PO BID RF: 0 dexamethasone 6 mg tablet 6 mg PO DAILY RF: 0 amiodarone 200 mg tablet 200 mg PO BID RF: 0 insulin lispro [Humalog KwikPen Insulin] 100 unit/mL Insulin Pen 12 unit subcut TIDCM 30 Days Qty: 10.8 RF: 0 No Action Lantus Solostar U-100 Insulin 100 unit/mL (3 mL) Insulin Pen 20 unit subcut BID 30 Days Qty: 0 RF: 0 Referrals / Follow Up: Bailey Toribio MD [Primary Care Provider] - Martín Ramirez MD [STAFF PHYSICIAN] - See Referral Note (Call the office to set up a 24-hour Holter monitor, see Dr. Ramirez in 4 weeks) Disposition Disposition (needs filled in before D/C Order can be placed): Home, Self Care
--- NOTE | 2021-03-15 21:13 | DS.PCM_ITS ---
Providers Date of Admission: 03/07/21 Date of Discharge: 03/15/21 Primary Care Physician: Dr. Bailey Toribio MD Consultations 03/07/21 16:25 Consult: Cardiology Routine Consulting Provider: Jhoana Sarmiento Reason for Consult: bradycardia EMERGENT Consult: No Notified: Yes Date Notified: 03/07/21 Time Notified: 15:02 Method of Notification: Verbal Comments:: notfied by ED Consult: Hospice / Palliative Care Routine Consulting Provider: [facility] Reason for Consult: palliative care. EMERGENT Consult: No MD Notified: Yes Date Notified: 03/07/21 Time Notified: 15:08 Method of Notification: Verbal Comments:: spoke to front end alignment specialist nurse. Consult: Nephrology Routine Consulting Provider: Christine Steward Reason for Consult: dialysis EMERGENT Consult: Yes MD Notified: Yes Date Notified: 03/07/21 Time Notified: 14:52 Method of Notification: Answering Service 03/07/21 21:26 Consult: Onc/Wound/noc engineer Routine Comment: Reason for Consult:: Right wolfe wound Reason For Visit: BRADYCARDIA, ENCEPHALOPATHY Diagnosis Discharge Diagnosis (1) ESRD (end stage renal disease) on dialysis: Status: Acute Code(s): N18.6 - End stage renal disease; Z99.2 - Dependence on renal dialysis (2) Hyponatremia: Status: Acute Code(s): E87.1 - Hypo-osmolality and hyponatremia (3) Bradycardia: Status: Acute Code(s): R00.1 - Bradycardia, unspecified (4) DM type 2 (diabetes mellitus, type 2): Status: Acute Code(s): E11.9 - Type 2 diabetes mellitus without complications Plan: Final diagnosis: #1 bradycardia-etiology unclear, possibly secondary to cardiac rate limiting medications #2 acute on chronic diastolic congestive heart failure #3 type 2 diabetes #4 end-stage renal disease requiring dialysis #5 essential hypertension #6 seizure disorder #7 metabolic encephalopathy due to multiple medical problems including end-stage renal disease and acute on chronic congestive heart failure #8 acute hypoxic respiratory failure secondary to #2-resolved at the time of discharge Medications at Discharge Home Medications atorvastatin 10 mg PO QHS 09/06/19 ergocalciferol (vitamin D2) 50,000 unit PO KELLOGG 09/06/19 escitalopram oxalate 10 mg PO DAILY 05/05/20 lisinopril 10 mg PO DAILY 10/13/20 Vimpat 100 mg PO BID 02/22/21 fluticasone propionate 2 spray INTRANASAL DAILY 02/22/21 B complex-vitamin C-folic acid 1 tab PO DAILY 03/01/21 aspirin 81 mg PO DAILY 03/01/21 insulin glargine [Lantus Solostar U-100 Insulin] 20 unit SUBCUT BID 30 Days #0 ml 03/02/21 aspirin 81 mg PO DAILYCM #1 tab 03/15/21 insulin glargine [Lantus Solostar U-100 Insulin] 15 unit SUBCUT BID #0 ml 03/15/21 Hospital Course Operations None Procedures Dialysis Summary of Care Provided Minutes Spent on Discharge: 33 Hospital Course: This 75-year-old white female was seen in the emergency room at [facility] with complaints of low blood pressure and low heart rate. She also complained of malaise. Patient appeared somnolent and unwell, her mentation was slow. Patient was given fluids with some response of raising her blood pressure. EKG showed a junctional bradycardia, patient was given calcium gluconate due to concern of hyperkalemia. Cardiology was contacted, she had received atropine prior to her arrival to the emergency room with no effect on her heart rate. Chest x-ray obtained showed possible pulmonary edema versus infiltrate, patient was admitted for management of bradycardia and hypotension, she was seen in consultation by cardiology who stopped her rate limiting medications and advised the patient to be transferred to [facility]- [facility] in [place] was contacted and agreed to accept the patient but had no hospital bed. Patient was also seen in consultation by nephrology and she continued her outpatient dialysis. Patient's heart rate improved after she was taken off her rate limiting medications, she was transferred to PCU for further care and after several days the [facility] did not phone back with a bed acceptance. At that point, it did not seem necessary to transfer the p atient to the [facility] due to the fact she did not have significant bradycardia any longer. On 03/15/2021, patient was seen and examined: On examination she appeared in good health and spirits, she does not appear to be in any distress. Vital signs as documented. Skin warm and dry and without overt rashes. Neck without JVD, thyroid appears normal, trachea is midline, neck is supple. Lungs clear, normal air movement was noted. Heart exam notable for regular rhythm, normal sounds and absence of murmurs, rubs or gallops. Abdomen unremarkable and without evidence of organomegaly, masses, or abdominal aortic enlargement, bowel sounds are present in all 4 quadrants, no abdominal tenderness was noted. Extremities nonedematous, no cyanosis was noted, no clubbing was noted. Neuro: Cranial nerves II through XII are grossly intact, no focal motor deficits were noted, sensation to light touch and pinprick is intact, motor exam 5/5 throughout. Psych: Patient is alert and oriented x3, she does not appear anxious or depressed, she does not appear agitated. Patient desired to return home at the time of discharge rather than to go back to skilled care which is where she came into the hospital from. Patient was discharged home in stable condition on 03/15/2021. Weight / BMI Weight Weight: 92 kg Body Mass Index (BMI) 39.0 ABG / Lab / Microbiology Data Result Diagrams: 03/12/21 04:10 03/15/21 05:30 Laboratory: Laboratory Results - last 24 hr 03/15/21 05:30: Sodium 126 L, Potassium 4.6, Chloride 92 L, Carbon Dioxide 27.0, BUN 46 H, Creatinine 2.10 H, Estim Creat Clear Calc 17.47, Est GFR (MDRD) Af Amer 30 L, Est GFR (MDRD) Non-Af 24 L, BUN/Creatinine Ratio 21.9 H, Glucose 79, Calcium 8.5, Phosphorus 4.0, Albumin 2.3 L 03/15/21 06:12: POC Glucose 83 03/15/21 11:09: POC Glucose 131 H 03/15/21 16:45: POC Glucose 143 H Microbiology: Microbiology 03/07/21 12:40 Blood Culture (Wb) - Anticubital Left Blood Culture - Final No growth in 5 days. 03/07/21 12:15 Blood Culture (Wb) - Anticubital Right Blood Culture - Final No growth in 5 days. 03/07/21 13:15 Urine Catheter - Nicole Urine Culture - Final Lactobacillus sp. 03/07/21 14:50 Nasal Secretion SARS-CoV-2 Antigen (Rapid) - Final D/C Instructions Discharge Diet: 1800 Calorie Control Diet Weight Bearing Status: Full weight bearing Meaningful Use Info Meaningful Use Diagnoses (Choose all that apply): None applicable Discharge Plan Admission Admit Date/Time: 03/07/21 14:56 Primary Reason for Your Visit: bradycardia Attending Provider: Isiah Cameron Primary Care Provider: Bailey Toribio Consulting Providers: Jhoana Sarmiento ; Alize Canchola ; Man Mac ; Trena Arzola ; Akilah Mendez ; Anabela Asif ; Martha Seals REGISTRAR ASSISTANT ; Vignesh Steward istine Instructions Additional Instructions / Restrictions: Call your semiconductors wafer breaker office (Dr. Ramirez) to arrange for a 24-hour Holter monitor Discharge Orders/Prescriptions Prescriptions: New aspirin 81 mg Tablet,Delayed Release (Dr/Ec) 81 mg PO DAILYCM Qty: 1 RF: 0 Lantus Solostar U-100 Insulin 100 unit/mL (3 mL) Insulin Pen 15 unit subcut BID Qty: 0 RF: 0 Continued atorvastatin 10 MG tablet 10 mg PO QHS RF: 0 ergocalciferol (vitamin D2) 50,000 UNIT capsule 50,000 unit PO KELLOGG RF: 0 escitalopram oxalate 10 MG tablet 10 mg PO DAILY RF: 0 lisinopril 10 MG tablet 10 mg PO DAILY RF: 0 fluticasone propionate 50 mcg/actuation [place],Suspension 2 spray INTRANASAL DAILY RF: 0 Vimpat 100 mg tablet 100 mg PO BID RF: 0 aspirin 81 mg tablet,delayed release (DR/EC) 81 mg PO DAILY RF: 0 B complex-vitamin C-folic acid 1 mg Tablet 1 tab PO DAILY RF: 0 Discontinued trazodone 50 mg tablet 25 mg PO QHS RF: 0 amlodipine 10 MG tablet 10 mg PO DAILY RF: 0 metoprolol succinate 50 MG tablet extended release 24 hr 75 mg PO DAILY RF: 0 isosorbide mononitrate 30 MG tablet extended release 24 hr 30 mg PO DAILY RF: 0 midodrine 5 mg Tablet 5 mg PO TUTHSA RF: 0 fexofenadine [Veronica Allergy] 60 mg Tablet 60 mg PO DAILY RF: 0 gabapentin 100 mg capsule 200 mg PO BID RF: 0 dexamethasone 6 mg tablet 6 mg PO DAILY RF: 0 amiodarone 200 mg tablet 200 mg PO BID RF: 0 insulin lispro [Humalog KwikPen Insulin] 100 unit/mL Insulin Pen 12 unit subcut TIDCM 30 Days Qty: 10.8 RF: 0 No Action Lantus Solostar U-100 Insulin 100 unit/mL (3 mL) Insulin Pen 20 unit subcut BID 30 Days Qty: 0 RF: 0 Referrals / Follow Up: Bailey Toribio MD [Primary Care Provider] - Martín Ramirez MD [STAFF PHYSICIAN] - See Referral Note (Call the office to set up a 24-hour Holter monitor, see Dr. Ramirez in 4 weeks) Disposition Disposition (needs filled in before D/C Order can be placed): Home Health Service Charges/Coding Visit Charges Inpatient E&M: 06267 Disch Hosp
--- NOTE | 2021-03-16 08:57 | CASEMGMT ---
ANNIE called Mercedes Sargent at [facility] and let her know patient was discharged home yesterday with home health. ANNIE also faxed her discharge instructions. Katelynn ANDRADE
--- NOTE | 2021-03-16 14:22 | CASEMGMT ---
ERICA TREVIÑO Discharge Follow-up Phone Call: EMELIA: 17 Strata: 4 Call Date:03/16/21 Discharge Date: 03/15/21 Time of Call: 1420 Duration: 1 min Admitting Diagnosis: bradycardia, encephalopathy ERICA TREVIÑO attempted to completed follow-up phone call after recent hospitalization. No answer, unable to leave voice message as mailbox is full.
== END 2021-03-15 17:46 | disposition home health service (06) | DRG 308 ==
LOC: ED 12:49 → PCU 14:58 → ICU 19:21 → PCU 03-15 15:48
PROVIDERS: Internal Medicine; Internal Medicine Nephrology; Emergency Provider Emergency Medicine; PCP Internal Medicine; Visit Provider Internal Medicine
DX: R00.1 Bradycardia, unspecified (principal); G92 Toxic encephalopathy; N18.6 End stage renal disease; G93.41 Metabolic encephalopathy; I13.2 Hypertensive heart and chronic kidney disease with heart failure and with stage 5 chronic kidney disease, or end stage renal disease; I50.32 Chronic diastolic (congestive) heart failure; Z68.41 Body mass index [BMI] 40.0-44.9, adult; E87.1 Hypo-osmolality and hyponatremia; T46.2X5A Adverse effect of other antidysrhythmic drugs, initial encounter; E11.22 Type 2 diabetes mellitus with diabetic chronic kidney disease; Z20.822 Contact with and (suspected) exposure to COVID-19; I50.82 Biventricular heart failure; I95.9 Hypotension, unspecified; E87.5 Hyperkalemia; E11.649 Type 2 diabetes mellitus with hypoglycemia without coma; I48.0 Paroxysmal atrial fibrillation; I36.1 Nonrheumatic tricuspid (valve) insufficiency; D63.1 Anemia in chronic kidney disease; J44.9 Chronic obstructive pulmonary disease, unspecified; G40.909 Epilepsy, unspecified, not intractable, without status epilepticus; I27.21 Secondary pulmonary arterial hypertension; M06.9 Rheumatoid arthritis, unspecified; E78.5 Hyperlipidemia, unspecified; G25.81 Restless legs syndrome; K21.9 Gastro-esophageal reflux disease without esophagitis; G47.33 Obstructive sleep apnea (adult) (pediatric); F31.9 Bipolar disorder, unspecified; F44.81 Dissociative identity disorder; F41.1 Generalized anxiety disorder; E66.01 Morbid (severe) obesity due to excess calories; Y92.9 Unspecified place or not applicable; Z99.2 Dependence on renal dialysis; Z79.82 Long term (current) use of aspirin; Z79.4 Long term (current) use of insulin; Z79.899 Other long term (current) drug therapy; I25.2 Old myocardial infarction; Z86.16 Personal history of COVID-19; Z86.73 Personal history of transient ischemic attack (TIA), and cerebral infarction without residual deficits; Z87.891 Personal history of nicotine dependence; Z86.14 Personal history of Methicillin resistant Staphylococcus aureus infection
CPT/HCPCS: 36415; 36600; 51702; 70450; 71045; 80048; 80053; 80069; 81001; 82803; 82962; 83605; 83880; 84484; 85025; 87040; 87077; 87086; 87088; 87426; 90937; 93005; 97110; 97162; 97166; 97530; 97535; 97803; 99285; J7030; J7040; A4216; G0257; J0610; J1610; J2310; J2405

== ENCOUNTER 2021-03-19 23:37 | Emergency (ER) | payer MEDICARE, MEDICAID, SELFPAY ==
[2021-03-19 23:37] VITALS: BP 157/57; PULSE 63; RESP 18; TEMP 37; O2SAT 98
[2021-03-19 23:38] VITALS: BP 161/146; PULSE 64; RESP 16; TEMP 37; O2SAT 96; BMI 40.6
[2021-03-20 00:37] LABS: Absolute Lymphocyte Count 0.65 X10^3/uL (0.83-4.51); Absolute Neutrophil Count 2.7 X10^3/uL (2.0-7.7); Basophil# 0.04 X10^3/uL; Basophil% 0.9 % (0-1); Eosinophil# 0.18 X10^3/uL; Hematocrit 27.8 % (37-47); Hemoglobin 8.8 g/dL (12.0-15.0); Lymphocyte # 0.65 X10^3/ul (0.83-4.51); Lymphocyte % 14.5 % (19-41); Mean Corp Hgb Conc 31.7 g/dL (32-36); Mean Corpuscular Hgb 34.1 pg (27.0-32.0); Mean Corpuscular Volume 107.8 fL (81-99); Mean Platelet Vol. 10.1 fl (6.2-12.0); Monocyte# 0.86 X10^3/uL; Monocyte% 19.2 % (0-10); NRBC Flagged by Analyzer 0 % (0-5); Neutrophil # 2.73 X10^3/uL (2.7-7.7); Platelet Count 104 K/mm3 (150-450); RBC Distribution Width CV 14.8 % (11.6-14.6); Red Blood Count 2.58 M/mm3 (4.2-5.4); White Blood Count 4.5 K/mm3 (4.4-11.0)
[2021-03-20 00:54] LABS: ALB/GLOB Ratio 0.5 RATIO (0.9-2.4); AST(SGOT) 28 U/L (15-37); Alanine Aminotransfer ALT/SGPT 37 U/L (13-56); Albumin, Serum 2.5 g/dL (3.2-5.0); Alkaline Phosphatase 97 U/L (45-117); Anion Gap 4 (5-15); BUN 32 mg/dL (7-18); BUN/Creat Ratio 15.8 RATIO (10-20); Calcium,Total 8.6 mg/dL (8.5-10.1); Chloride 94 mmol/L (98-107); Creatinine, Serum 2.03 mg/dL (0.55-1.02); EST Glomerular Filtration Rate 25 mL/min (>60); Est Glom Filt Rate - Afr Amer 31 mL/min (>60); Globulin 4.6 g/dL (2.2-4.2); Glucose 236 mg/dL (74-106); Potassium 3.8 mmol/L (3.5-5.1); Protein, Total 7.1 g/dL (6.4-8.2); Sodium Level 132 mmol/L (136-145)
[2021-03-20 02:05] VITALS: BP 158/61
[2021-03-20] MEDS: BACITRACIN 15 GM Tube 1 APPLIC TOPICAL (02:06)
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
== END 2021-03-20 02:42 | disposition home or self-care (01) ==
PROVIDERS: Emergency Provider Emergency Medicine; PCP Internal Medicine
DX: R04.0 Epistaxis (principal); I13.2 Hypertensive heart and chronic kidney disease with heart failure and with stage 5 chronic kidney disease, or end stage renal disease; I50.32 Chronic diastolic (congestive) heart failure; I50.82 Biventricular heart failure; E11.22 Type 2 diabetes mellitus with diabetic chronic kidney disease; N18.6 End stage renal disease; D63.8 Anemia in other chronic diseases classified elsewhere; I48.91 Unspecified atrial fibrillation; E11.65 Type 2 diabetes mellitus with hyperglycemia; E11.40 Type 2 diabetes mellitus with diabetic neuropathy, unspecified; I27.21 Secondary pulmonary arterial hypertension; G40.909 Epilepsy, unspecified, not intractable, without status epilepticus; J44.9 Chronic obstructive pulmonary disease, unspecified; M06.9 Rheumatoid arthritis, unspecified; M54.2 Cervicalgia; M54.9 Dorsalgia, unspecified; G89.29 Other chronic pain; F31.9 Bipolar disorder, unspecified; F41.1 Generalized anxiety disorder; G47.33 Obstructive sleep apnea (adult) (pediatric); K21.9 Gastro-esophageal reflux disease without esophagitis; E66.9 Obesity, unspecified; Z99.2 Dependence on renal dialysis; Z79.82 Long term (current) use of aspirin; Z79.4 Long term (current) use of insulin; Z79.899 Other long term (current) drug therapy; Z86.73 Personal history of transient ischemic attack (TIA), and cerebral infarction without residual deficits; Z86.14 Personal history of Methicillin resistant Staphylococcus aureus infection; Z87.891 Personal history of nicotine dependence
CPT/HCPCS: 80053; 85025; 99284

== ENCOUNTER → 2021-03-31 11:10 | Outpatient (CLI) | payer MEDICARE, MEDICAID, SELFPAY ==
--- NOTE | 2021-03-31 11:11 | VDUE_ITS ---
Reason For Study: Pre op testing Right Arm Left Arm Right Cephalic Vein at the wrist measures Left Cephalic Vein at the wrist measures 0.18 x 0.18 cm. 0.17 x 0.19 cm. Right Cephalic Vein in the forearm measures Left Cephalic Vein in the forearm measures 0.20 x 0.19 cm. 0.15 x 0.17 cm. Right Cephalic Vein below antecub measures Left Cephalic Vein below antecub measures 0.12 x 0.13 cm. 0.20 x 0.22 cm. Right Cephalic Vein above antecub measures Left Cephalic Vein above antecub measures 0.09 x 0.09 cm. 0.20 x 0.19 cm. Right Cephalic Vein mid bicep measures 0.10 Left Cephalic Vein at mid bicep measures x 0.10 cm. 0.18 x 0.18 cm. Right Cephalic Vein at the shoulder measures Left Cephalic Vein at the shoulder measures 0.12 x 0.13 cm. 0.12 x 0.13 cm. Right Basilic Vein at the origin measures Basilic vein at origin measures 0.34 x 0.33 0.29 x 0.29 cm. cm. Right Basilic Vein mid bicep measures 0.24 x Basilic vein at bicep measures 0.23 x 0.25 0.26 cm. cm. Right Basilic Vein above antecub measures Basilic vein above antecub measures 0.27 x 0.27 x 0.28 cm. 0.28 cm. Right Brachial artery measures 0.28 x 0.29 Left Brachial artery measures 0.30 x 0.30 cm cm with a velocity of 192.7 cm/sec. with a velocity of 163.4 cm/sec. Right Radial artery measures 0.13 x 0.14 cm Left Radial artery measures 0.19 x 0.19 cm with a velocity of 111.8 cm/sec. with a velocity of 134.3 cm/sec. VL/Saphenous Vein Mapping, Bilat Interpretation Summary Patent and compressible bilateral upper extremity cephalic and basilic veins wi th dimensions as noted. Bilateral upper extremity cephalic veins appear to be diminutive throughout Bilateral upper arm basilic veins appear to be of adequate diameter Bilateral radial arteries are small Bilateral brachial arteries are of adequate diameter however Doppler flow rates are elevated of undetermined etiology. Ordering Physician: Dinesh Polanco Referring Physician: Bailey Toribio Performed By: Monet Holcomb RVT ?
== END ==
PROVIDERS: PCP Internal Medicine; Visit Provider Surgery
DX: Z01.818 Encounter for other preprocedural examination (principal); N18.6 End stage renal disease; R00.1 Bradycardia, unspecified
CPT/HCPCS: 93225; 93226; 93970; 93985

== ENCOUNTER 2021-04-04 16:03 | Emergency (ER) | payer MEDICARE, MEDICAID, SELFPAY ==
[2021-04-04] VITALS (7 sets, daily range): BP systolic 136–195; BP diastolic 58–85; PULSE 77–87; RESP 16–20; TEMP 36.8–37.1; O2SAT 93–99; BMI 36.9
--- NOTE | 2021-04-04 16:17 | CT_ITS ---
EXAM: CT ANGIOGRAPHY CHEST WITHOUT AND WITH INTRAVENOUS CONTRAST : 1945 CLINICAL INDICATION: chest pain -- TECHNIQUE: Helically acquired angiography images were obtained of the chest without and with intravenous contrast. This CT exam was performed using one or more of the following dose reduction techniques: automated exposure control, adjustment of the mA and/or kV according to patient size, and/or use of iterative reconstruction technique. This report was created using Bridge report generation technology. MIP reconstructed images were created and reviewed. CONTRAST: IV 100mL [id number]-[id number] COMPARISON: None. FINDINGS: PULMONARY ARTERIES: Unremarkable. Normal in caliber. No evidence of pulmonary embolism. AORTA: Unremarkable. Normal in caliber. No evidence of dissection. GREAT VESSELS OF AORTIC ARCH: Unremarkable. Normal in caliber. No evidence of dissection. LUNGS AND PLEURAL SPACES: There are bilateral pleural effusions larger on the right than on the left. There is consolidation in both lower lobes which may represent atelectasis or pneumonia. There are interstitial opacities present which may represent edema. No mass. HEART: Unremarkable. Heart size is normal. No pericardial effusion. No signs of right heart strain, ratio of right ventricle to left ventricle measures less than 1. MEDIASTINUM: Unremarkable. No mediastinal or hilar adenopathy. Esophagus is unremarkable. No hiatal hernia. THYROID: Unremarkable. No thyroid lesions. BONES/JOINTS: Unremarkable. No suspicious lytic or blastic abnormality. CT/CTA Chest W/WO Contrast IMPRESSION: 1. No evidence of pulmonary embolus. 2. Bilateral effusions larger on the right than on the left with bilateral lower lobe atelectasis or pneumonia. Individualized dose optimization techniques were used for this CT. at 1746 Reported and signed by: Ronnie Funes MD Electronically Signed: Ronnie Funes MD at 17:45 EDT Tel , Service support ,
--- NOTE | 2021-04-04 16:18 | EKG12_ITS ---
Test Reason : CP Blood Pressure : / mmHG Vent. Rate : 082 BPM Atrial Rate : 082 BPM P-R Int : 170 ms QRS Dur : 080 ms QT Int : 386 ms P-R-T Axes : 048 079 060 degrees QTc Int : 450 ms Poor data quality, interpretation may be adversely affected Normal sinus rhythm Normal ECG Confirmed by DUTCH BOWMAN, ANTONIA ([id number]), editor continuity and script RADHA TAPIA ([id number]) on 04/06/2021 8:05:35 AM Referred By: SAL Confirmed By:ANTONIA JUDD MD
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
[2021-04-04 16:44] LABS: Absolute Lymphocyte Count 1.11 X10^3/uL (0.83-4.51); Basophil# 0.07 X10^3/uL; Basophil% 1.2 % (0-1); Eosinophil# 0.09 X10^3/uL; Eosinophils% 1.5 % (0-5); Hemoglobin 9.3 g/dL (12.0-15.0); Lymphocyte # 1.11 X10^3/ul (0.83-4.51); Lymphocyte % 18.8 % (19-41); Mean Corp Hgb Conc 32.1 g/dL (32-36); Mean Corpuscular Hgb 34.7 pg (27.0-32.0); Mean Corpuscular Volume 108.2 fL (81-99); Mean Platelet Vol. 10.2 fl (6.2-12.0); Monocyte# 0.65 X10^3/uL; NRBC Flagged by Analyzer 0 % (0-5); Neutrophil # 3.96 X10^3/uL (2.7-7.7); Platelet Count 118 K/mm3 (150-450); RBC Distribution Width CV 15.4 % (11.6-14.6); RBC Distribution Width SD 61.7 fl (35.1-43.9); Red Blood Count 2.68 M/mm3 (4.2-5.4); White Blood Count 5.9 K/mm3 (4.4-11.0)
[2021-04-04] MEDS: 0.9% Normal Saline 1,000 ML 150 ML IV (16:52)
[2021-04-04] MEDS: Aspirin 81 MG TAB.CHEW 324 MG PO (16:52)
[2021-04-04] MEDS: Ondansetron 4 MG/2 ML Vial IV (16:52)
[2021-04-04] MEDS: Morphine 4 MG/ML Syringe IV (16:52)
[2021-04-04 16:58] LABS: Anion Gap 8 (5-15); BUN 16 mg/dL (7-18); BUN/Creat Ratio 8.9 RATIO (10-20); Calcium,Total 8.7 mg/dL (8.5-10.1); Chloride 97 mmol/L (98-107); Creatinine, Serum 1.79 mg/dL (0.55-1.02); EST Glomerular Filtration Rate 29 mL/min (>60); Est Glom Filt Rate - Afr Amer 36 mL/min (>60); Estimated Creatinine Clearance 19.51 ml/min; Glucose 291 mg/dL (74-106); Potassium 3.6 mmol/L (3.5-5.1); Sodium Level 137 mmol/L (136-145); Troponin-I HS 18 pg/mL (3.0-54.0)
[2021-04-04 19:59] LABS: Troponin-I HS 21 pg/mL (3.0-54.0)
== END 2021-04-04 20:38 | disposition home or self-care (01) ==
PROVIDERS: Emergency Provider Emergency Medicine; PCP Internal Medicine
DX: R07.9 Chest pain, unspecified (principal); M54.9 Dorsalgia, unspecified; M79.602 Pain in left arm; I13.2 Hypertensive heart and chronic kidney disease with heart failure and with stage 5 chronic kidney disease, or end stage renal disease; I50.32 Chronic diastolic (congestive) heart failure; I50.82 Biventricular heart failure; N18.6 End stage renal disease; E11.22 Type 2 diabetes mellitus with diabetic chronic kidney disease; E11.40 Type 2 diabetes mellitus with diabetic neuropathy, unspecified; I48.91 Unspecified atrial fibrillation; D63.8 Anemia in other chronic diseases classified elsewhere; J44.9 Chronic obstructive pulmonary disease, unspecified; I27.21 Secondary pulmonary arterial hypertension; E78.5 Hyperlipidemia, unspecified; M06.9 Rheumatoid arthritis, unspecified; K21.9 Gastro-esophageal reflux disease without esophagitis; G47.33 Obstructive sleep apnea (adult) (pediatric); F31.9 Bipolar disorder, unspecified; F41.1 Generalized anxiety disorder; Z79.82 Long term (current) use of aspirin; Z79.4 Long term (current) use of insulin; Z79.899 Other long term (current) drug therapy; Z99.2 Dependence on renal dialysis; I25.2 Old myocardial infarction; Z86.16 Personal history of COVID-19; Z86.14 Personal history of Methicillin resistant Staphylococcus aureus infection; Z86.73 Personal history of transient ischemic attack (TIA), and cerebral infarction without residual deficits; Z87.891 Personal history of nicotine dependence
CPT/HCPCS: 71275; 80048; 84484; 85025; 93005; 96361; 96374; 96375; 99285; J7030; Q9967; A4216; J2405

== ENCOUNTER 2021-04-21 15:50 | Emergency (ER) | payer MEDICARE, MEDICAID, SELFPAY ==
[2021-04-21 15:52] VITALS: BP 135/55; PULSE 74; RESP 15; TEMP 37; O2SAT 100; BMI 37.0
--- NOTE | 2021-04-21 16:05 | EKG12_ITS ---
Test Reason : CELLULITIS Blood Pressure : / mmHG Vent. Rate : 074 BPM Atrial Rate : 074 BPM P-R Int : 144 ms QRS Dur : 092 ms QT Int : 432 ms P-R-T Axes : 019 077 040 degrees QTc Int : 479 ms Normal sinus rhythm Low voltage QRS Borderline ECG Confirmed by JB BOWMAN, ANTONIO ([id number]), material expeditor RADHA TAPIA ([id number]) on 04/22/2021 1:53:40 P M Referred By: OTIS Confirmed By:NEEMA MUHAMMAD MD
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
[2021-04-21 16:24] VITALS: O2SAT 98
[2021-04-21] MEDS: 0.9% Normal Saline 1,000 ML 150 ML IV (16:28)
[2021-04-21 16:29] LABS: Absolute Lymphocyte Count 1.49 X10^3/uL (0.83-4.51); Absolute Neutrophil Count 5.2 X10^3/uL (2.0-7.7); Basophil# 0.06 X10^3/uL; Basophil% 0.8 % (0-1); Eosinophil# 0.17 X10^3/uL; Eosinophils% 2.2 % (0-5); Hematocrit 29.3 % (37-47); Hemoglobin 9.4 g/dL (12.0-15.0); Lymphocyte # 1.49 X10^3/ul (0.83-4.51); Lymphocyte % 19.1 % (19-41); Mean Corp Hgb Conc 32.1 g/dL (32-36); Mean Corpuscular Hgb 34.6 pg (27.0-32.0); Mean Corpuscular Volume 107.7 fL (81-99); Mean Platelet Vol. 9.8 fl (6.2-12.0); Monocyte# 0.84 X10^3/uL; Monocyte% 10.8 % (0-10); NRBC Flagged by Analyzer 0 % (0-5); Neutrophil # 5.22 X10^3/uL (2.7-7.7); Neutrophil % 66.8 % (47-70); Platelet Count 142 K/mm3 (150-450); RBC Distribution Width CV 14.1 % (11.6-14.6); RBC Distribution Width SD 54.9 fl (35.1-43.9); Red Blood Count 2.72 M/mm3 (4.2-5.4); White Blood Count 7.8 K/mm3 (4.4-11.0)
[2021-04-21 16:34] VITALS: BP 154/72; PULSE 78; RESP 20; TEMP 36.9; O2SAT 98
[2021-04-21 16:46] LABS: ALB/GLOB Ratio 0.5 RATIO (0.9-2.4); AST(SGOT) 27 U/L (15-37); Alanine Aminotransfer ALT/SGPT 23 U/L (13-56); Albumin, Serum 2.5 g/dL (3.2-5.0); Alkaline Phosphatase 87 U/L (45-117); Anion Gap 6 (5-15); BUN 10 mg/dL (7-18); BUN/Creat Ratio 8.3 RATIO (10-20); Chloride 95 mmol/L (98-107); Creatinine, Serum 1.21 mg/dL (0.55-1.02); EST Glomerular Filtration Rate 46 mL/min (>60); Est Glom Filt Rate - Afr Amer 56 mL/min (>60); Estimated Creatinine Clearance 28.86 ml/min; Globulin 4.8 g/dL (2.2-4.2); Glucose 87 mg/dL (74-106); Protein, Total 7.3 g/dL (6.4-8.2); Sodium Level 135 mmol/L (136-145)
[2021-04-21 16:47] LABS: International Normalized Ratio 1.1; Prothrombin Time (Protime)PT. 13.8 SECONDS (11.7-14.9)
[2021-04-21 16:49] LABS: Partial Thromboplast Time 52.4 Seconds (24.1-36.2)
[2021-04-21 17:00] LABS: Lactic Acid 1.1 mmol/L (0.4-1.9)
[2021-04-21 17:08] VITALS: BP 149/69; PULSE 80; RESP 16; RESP 18; TEMP 36.8; O2SAT 96
[2021-04-21 17:50] VITALS: BP 154/64; PULSE 85; RESP 19; O2SAT 96
== END 2021-04-21 18:07 | disposition home or self-care (01) ==
PROVIDERS: Emergency Provider Emergency Medicine; PCP Internal Medicine
DX: L03.116 Cellulitis of left lower limb (principal); I48.91 Unspecified atrial fibrillation; I13.2 Hypertensive heart and chronic kidney disease with heart failure and with stage 5 chronic kidney disease, or end stage renal disease; E11.22 Type 2 diabetes mellitus with diabetic chronic kidney disease; N18.6 End stage renal disease; I50.32 Chronic diastolic (congestive) heart failure; I50.82 Biventricular heart failure; E11.40 Type 2 diabetes mellitus with diabetic neuropathy, unspecified; I27.21 Secondary pulmonary arterial hypertension; G40.909 Epilepsy, unspecified, not intractable, without status epilepticus; D63.8 Anemia in other chronic diseases classified elsewhere; J44.9 Chronic obstructive pulmonary disease, unspecified; E78.5 Hyperlipidemia, unspecified; M06.9 Rheumatoid arthritis, unspecified; G47.33 Obstructive sleep apnea (adult) (pediatric); K21.9 Gastro-esophageal reflux disease without esophagitis; F44.81 Dissociative identity disorder; F31.9 Bipolar disorder, unspecified; F41.1 Generalized anxiety disorder; E66.01 Morbid (severe) obesity due to excess calories; Z68.41 Body mass index [BMI] 40.0-44.9, adult; Z79.82 Long term (current) use of aspirin; Z79.4 Long term (current) use of insulin; Z79.899 Other long term (current) drug therapy; Z99.2 Dependence on renal dialysis; Z86.73 Personal history of transient ischemic attack (TIA), and cerebral infarction without residual deficits; Z87.891 Personal history of nicotine dependence; Z86.14 Personal history of Methicillin resistant Staphylococcus aureus infection
CPT/HCPCS: 80053; 83605; 85025; 85610; 85730; 87040; 93005; 96365; 99285; J7030; A4216

== ENCOUNTER 2021-04-30 11:08 | Emergency (ER) | payer MEDICARE, MEDICAID, SELFPAY ==
[2021-04-30] VITALS (8 sets, daily range): BP systolic 127–173; BP diastolic 55–77; PULSE 74–84; RESP 16–28; TEMP 37.2–37.8; O2SAT 94–99; BMI 38.4
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
--- NOTE | 2021-04-30 11:50 | EKG12_ITS ---
Test Reason : LOWER EXTREMY Blood Pressure : / mmHG Vent. Rate : 080 BPM Atrial Rate : 080 BPM P-R Int : 164 ms QRS Dur : 078 ms QT Int : 382 ms P-R-T Axes : 018 053 039 degrees QTc Int : 440 ms Normal sinus rhythm Normal ECG Confirmed by ANGELA BOWMAN, SANTHOSH ([id number]), editor department RADHA TAPIA ([id number]) on 05/04/2021 8:58:43 AM Referred By: SUSSY Confirmed By:SANTHOSH MILLER MD
[2021-04-30 12:15] LABS: Absolute Lymphocyte Count 0.68 X10^3/uL (0.83-4.51); Absolute Neutrophil Count 4.1 X10^3/uL (2.0-7.7); Basophil# 0.04 X10^3/uL; Basophil% 0.7 % (0-1); Eosinophil# 0.09 X10^3/uL; Eosinophils% 1.7 % (0-5); Hematocrit 29.5 % (37-47); Hemoglobin 9.3 g/dL (12.0-15.0); Lymphocyte # 0.68 X10^3/ul (0.83-4.51); Lymphocyte % 12.7 % (19-41); Mean Corp Hgb Conc 31.5 g/dL (32-36); Mean Corpuscular Hgb 33.8 pg (27.0-32.0); Mean Corpuscular Volume 107.3 fL (81-99); Mean Platelet Vol. 9.4 fl (6.2-12.0); Monocyte# 0.43 X10^3/uL; NRBC Flagged by Analyzer 0 % (0-5); Neutrophil % 76.5 % (47-70); Platelet Count 160 K/mm3 (150-450); RBC Distribution Width CV 13.2 % (11.6-14.6); Red Blood Count 2.75 M/mm3 (4.2-5.4); White Blood Count 5.4 K/mm3 (4.4-11.0)
[2021-04-30] MEDS: 0.9% Normal Saline 1,000 ML 150 ML IV (12:22)
[2021-04-30] MEDS: Acetaminophen 500 MG Tablet 1000 MG PO (12:23)
--- NOTE | 2021-04-30 12:25 | RAD_ITS ---
STUDY: X-RAY CHEST REASON FOR EXAM: Female, 75 years old. Altered mental status TECHNIQUE: Single AP portable view of the chest. COMPARISON: Comparison is made with prior study dated 03/07/2021. FINDINGS: A right-sided double catheter is seen with the tip at the junction of the superior vena cava and right atrium. EKG electrodes are seen. Mild degree of increased interstitial markings and vascular congestion. Blunting of the right costophrenic angle. There is mild cardiac enlargement. Normal mediastinum and elva. Normal visualized pulmonary arteries. There is atherosclerotic calcification of the aortic arch with tortuosity. Normal visualized thoracic spine. Normal visualized ribs, clavicles, and shoulders. There is no demonstrated abnormality of the visualized soft tissue structures of the upper abdomen. RAD/Chest 1 View (Portable) IMPRESSION: Mild degree of vascular congestion. Electronically Signed: Baljeet Chen MD at 12:44 EDT , Service support ,
[2021-04-30 12:26] LABS: International Normalized Ratio 1.1; Prothrombin Time (Protime)PT. 13.7 SECONDS (11.7-14.9)
[2021-04-30 12:27] LABS: Partial Thromboplast Time 34.7 Seconds (24.1-36.2)
[2021-04-30 12:34] LABS: ALB/GLOB Ratio 0.5 RATIO (0.9-2.4); AST(SGOT) 24 U/L (15-37); Alanine Aminotransfer ALT/SGPT 23 U/L (13-56); Albumin, Serum 2.4 g/dL (3.2-5.0); Alkaline Phosphatase 80 U/L (45-117); Anion Gap 6 (5-15); BUN 29 mg/dL (7-18); BUN/Creat Ratio 12.9 RATIO (10-20); CPK Total, Creatine Kinase 63 U/L (26-192); Calcium,Total 8.8 mg/dL (8.5-10.1); Chloride 98 mmol/L (98-107); Creatinine, Serum 2.25 mg/dL (0.55-1.02); EST Glomerular Filtration Rate 23 mL/min (>60); Est Glom Filt Rate - Afr Amer 27 mL/min (>60); Estimated Creatinine Clearance 15.52 ml/min; Globulin 4.7 g/dL (2.2-4.2); Glucose 355 mg/dL (74-106); Potassium 4.5 mmol/L (3.5-5.1); Protein, Total 7.1 g/dL (6.4-8.2); Sodium Level 135 mmol/L (136-145); Troponin-I HS 19 pg/mL (3.0-54.0)
[2021-04-30 12:39] LABS: Lactic Acid 1.5 mmol/L (0.4-1.9)
[2021-04-30 13:50] LABS: Color, Urine Yellow (Yellow); Glucose, Dipstick 250 mg/dl (Normal); Ketone-Dipstick Negative (Negative); Leukocyte Esterase-Dipstick 500 /ul (Negative); Nitrite-Dipstick Negative (Negative); Occult Blood-Urine 150 /ul (Negative); Protein-Dipstick 500 mg/dl (Negative); Urine Bilirubin Dipstick Negative (Negative); Urine Clarity Cloudy (Clear); Urine Urobilinogen Normal (Normal)
[2021-04-30 13:59] LABS: White Blood Cells 50-100 SEEN /hpf (0-5)
[2021-04-30 14:01] LABS: Bacteria 1+ /hpf (None Seen); Squamous Epithelial Cells - UA 0-5 SEEN /hpf (5-10)
[2021-04-30 14:02] LABS: Mucous, Urine RARE /hpf (<or=2+); Red Blood Cells-Urine 5-10 SEEN /hpf (0-5); Yeast-Urine RARE /hpf (None Seen)
[2021-04-30] MEDS: MethylPREDNISolone Acetate 40 MG/ML Vial 80 MG IM (15:11)
--- NOTE | 2021-04-30 15:50 | ED.RN ---
pt reports no short acting insulin at home. per dr. peña, pt should monitor blood sugar over the weekend [facility]. pt educated to return to ed for new or worsened sx. pt and verbalize understanding and deny any further questions.
== END 2021-04-30 15:53 | disposition home or self-care (01) ==
PROVIDERS: Emergency Provider Emergency Medicine; PCP Internal Medicine
DX: E11.65 Type 2 diabetes mellitus with hyperglycemia (principal); I13.2 Hypertensive heart and chronic kidney disease with heart failure and with stage 5 chronic kidney disease, or end stage renal disease; E11.22 Type 2 diabetes mellitus with diabetic chronic kidney disease; I50.32 Chronic diastolic (congestive) heart failure; I50.82 Biventricular heart failure; N18.4 Chronic kidney disease, stage 4 (severe); Z99.2 Dependence on renal dialysis; D69.2 Other nonthrombocytopenic purpura; I48.91 Unspecified atrial fibrillation; I27.21 Secondary pulmonary arterial hypertension; G40.909 Epilepsy, unspecified, not intractable, without status epilepticus; J44.9 Chronic obstructive pulmonary disease, unspecified; E11.40 Type 2 diabetes mellitus with diabetic neuropathy, unspecified; D63.8 Anemia in other chronic diseases classified elsewhere; E78.5 Hyperlipidemia, unspecified; M06.9 Rheumatoid arthritis, unspecified; K21.9 Gastro-esophageal reflux disease without esophagitis; G47.33 Obstructive sleep apnea (adult) (pediatric); F31.9 Bipolar disorder, unspecified; F41.1 Generalized anxiety disorder; E66.01 Morbid (severe) obesity due to excess calories; Z68.41 Body mass index [BMI] 40.0-44.9, adult; Z79.4 Long term (current) use of insulin; Z79.82 Long term (current) use of aspirin; Z86.73 Personal history of transient ischemic attack (TIA), and cerebral infarction without residual deficits; Z86.14 Personal history of Methicillin resistant Staphylococcus aureus infection; Z87.891 Personal history of nicotine dependence
CPT/HCPCS: 36415; 71045; 80053; 81001; 82550; 83605; 84484; 85025; 85610; 85730; 87040; 87077; 87086; 87088; 87186; 93005; 96360; 96361; 96372; 99285; P9612; A4216

== ENCOUNTER 2021-05-03 12:19 | Emergency (ER) | payer MEDICARE, MEDICAID, SELFPAY ==
[2021-05-03 12:20] VITALS: BP 161/66; PULSE 80; RESP 18; TEMP 36.6; O2SAT 98; BMI 35.2
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
[2021-05-03 14:46] LABS: Absolute Lymphocyte Count 0.92 X10^3/uL (0.83-4.51); Absolute Neutrophil Count 3.5 X10^3/uL (2.0-7.7); Basophil# 0.03 X10^3/uL; Basophil% 0.6 % (0-1); Hematocrit 27.4 % (37-47); Hemoglobin 8.8 g/dL (12.0-15.0); Lymphocyte # 0.92 X10^3/ul (0.83-4.51); Lymphocyte % 18.4 % (19-41); Mean Corp Hgb Conc 32.1 g/dL (32-36); Mean Corpuscular Hgb 34.1 pg (27.0-32.0); Mean Corpuscular Volume 106.2 fL (81-99); Mean Platelet Vol. 9.7 fl (6.2-12.0); NRBC Flagged by Analyzer 0 % (0-5); Neutrophil # 3.53 X10^3/uL (2.7-7.7); Neutrophil % 70.6 % (47-70); Platelet Count 159 K/mm3 (150-450); RBC Distribution Width CV 13.3 % (11.6-14.6); RBC Distribution Width SD 51.8 fl (35.1-43.9); Red Blood Count 2.58 M/mm3 (4.2-5.4)
[2021-05-03 14:54] LABS: International Normalized Ratio 1.2
[2021-05-03 14:55] LABS: Partial Thromboplast Time 35.5 Seconds (24.1-36.2)
[2021-05-03 15:05] LABS: ALB/GLOB Ratio 0.5 RATIO (0.9-2.4); AST(SGOT) 25 U/L (15-37); Alanine Aminotransfer ALT/SGPT 21 U/L (13-56); Albumin, Serum 2.4 g/dL (3.2-5.0); Alkaline Phosphatase 77 U/L (45-117); Anion Gap 5 (5-15); BUN 39 mg/dL (7-18); BUN/Creat Ratio 15.7 RATIO (10-20); Calcium,Total 8.4 mg/dL (8.5-10.1); Chloride 98 mmol/L (98-107); Creatinine, Serum 2.49 mg/dL (0.55-1.02); EST Glomerular Filtration Rate 20 mL/min (>60); Est Glom Filt Rate - Afr Amer 24 mL/min (>60); Estimated Creatinine Clearance 14.02 ml/min; Globulin 4.7 g/dL (2.2-4.2); Glucose 177 mg/dL (74-106); Protein, Total 7.1 g/dL (6.4-8.2); Sodium Level 134 mmol/L (136-145)
== END 2021-05-03 17:15 | disposition home or self-care (01) ==
PROVIDERS: Emergency Provider Emergency Medicine; PCP Internal Medicine
DX: R21 Rash and other nonspecific skin eruption (principal); I13.2 Hypertensive heart and chronic kidney disease with heart failure and with stage 5 chronic kidney disease, or end stage renal disease; E11.22 Type 2 diabetes mellitus with diabetic chronic kidney disease; I50.32 Chronic diastolic (congestive) heart failure; N18.6 End stage renal disease; I50.82 Biventricular heart failure; I48.91 Unspecified atrial fibrillation; D63.8 Anemia in other chronic diseases classified elsewhere; J44.9 Chronic obstructive pulmonary disease, unspecified; Z99.2 Dependence on renal dialysis; I27.21 Secondary pulmonary arterial hypertension; G40.909 Epilepsy, unspecified, not intractable, without status epilepticus; E11.40 Type 2 diabetes mellitus with diabetic neuropathy, unspecified; M06.9 Rheumatoid arthritis, unspecified; D50.9 Iron deficiency anemia, unspecified; E78.5 Hyperlipidemia, unspecified; K21.9 Gastro-esophageal reflux disease without esophagitis; G47.33 Obstructive sleep apnea (adult) (pediatric); F31.9 Bipolar disorder, unspecified; F41.1 Generalized anxiety disorder; E66.01 Morbid (severe) obesity due to excess calories; Z68.41 Body mass index [BMI] 40.0-44.9, adult; Z79.4 Long term (current) use of insulin; Z79.82 Long term (current) use of aspirin; Z79.899 Other long term (current) drug therapy; Z87.891 Personal history of nicotine dependence; Z86.73 Personal history of transient ischemic attack (TIA), and cerebral infarction without residual deficits; Z86.14 Personal history of Methicillin resistant Staphylococcus aureus infection
CPT/HCPCS: 80053; 85025; 85610; 85730; 99283; A4216

== ENCOUNTER 2021-05-06 08:04 | Outpatient (RCR) | payer MEDICARE, MEDICAID, SELFPAY ==
[2021-05-06 08:42] VITALS: TEMP 36.1
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
== END 2021-06-01 23:59 ==
LOC: WC 08:04
PROVIDERS: PCP Internal Medicine; Visit Provider Internal Medicine
DX: E11.621 Type 2 diabetes mellitus with foot ulcer (principal); S81.802S Unspecified open wound, left lower leg, sequela; X58.XXXS Exposure to other specified factors, sequela; L97.522 Non-pressure chronic ulcer of other part of left foot with fat layer exposed; I13.2 Hypertensive heart and chronic kidney disease with heart failure and with stage 5 chronic kidney disease, or end stage renal disease; I50.32 Chronic diastolic (congestive) heart failure; I50.82 Biventricular heart failure; E11.22 Type 2 diabetes mellitus with diabetic chronic kidney disease; N18.6 End stage renal disease; E11.65 Type 2 diabetes mellitus with hyperglycemia; I27.21 Secondary pulmonary arterial hypertension; G40.909 Epilepsy, unspecified, not intractable, without status epilepticus; M06.9 Rheumatoid arthritis, unspecified; E11.42 Type 2 diabetes mellitus with diabetic polyneuropathy; I48.91 Unspecified atrial fibrillation; D63.8 Anemia in other chronic diseases classified elsewhere; J44.9 Chronic obstructive pulmonary disease, unspecified; E78.5 Hyperlipidemia, unspecified; G47.33 Obstructive sleep apnea (adult) (pediatric); G25.81 Restless legs syndrome; K21.9 Gastro-esophageal reflux disease without esophagitis; F44.81 Dissociative identity disorder; F41.1 Generalized anxiety disorder; F31.9 Bipolar disorder, unspecified; E66.01 Morbid (severe) obesity due to excess calories; Z68.41 Body mass index [BMI] 40.0-44.9, adult; Z79.4 Long term (current) use of insulin; Z79.82 Long term (current) use of aspirin; Z79.899 Other long term (current) drug therapy; Z99.2 Dependence on renal dialysis; Z86.16 Personal history of COVID-19; Z86.73 Personal history of transient ischemic attack (TIA), and cerebral infarction without residual deficits; Z87.891 Personal history of nicotine dependence; Z86.14 Personal history of Methicillin resistant Staphylococcus aureus infection
CPT/HCPCS: 11042; 99213; G0463

== ENCOUNTER 2021-05-19 17:17 | Inpatient (IN) | payer MEDICARE, MEDICAID, SELFPAY ==
[2021-05-19] VITALS (8 sets, daily range): BP systolic 123–182; BP diastolic 52–59; PULSE 75–80; RESP 15–18; TEMP 36.4–37; O2SAT 95–100; BMI 36.1; BMI 37.1
--- NOTE | 2021-05-19 17:45 | RAD_ITS ---
STUDY: X-RAY CHEST REASON FOR EXAM: Female, 75 years old. Cough TECHNIQUE: Single frontal view of the chest. COMPARISON: 04/30/2021. FINDINGS: Right IJ catheter likely terminating at the lower SVC. Patchy pericentral pulmonary opacities. There is borderline cardiomegaly. Normal mediastinum and elva. Normal visualized pulmonary arteries. Normal visualized aortic arch and descending thoracic aorta. Normal visualized thoracic spine. Normal visualized ribs, clavicles, and shoulders. There is no demonstrated abnormality of the visualized soft tissue structures of the upper abdomen. RAD/Chest 1 View (Portable) IMPRESSION: Findings most suggestive of CHF/pulmonary edema. Superimposed pneumonia should be excluded clinically. Electronically Signed: Lonnie Beasley MD at 19:05 EST Tel , Service support ,
--- NOTE | 2021-05-19 17:46 | EKG12_ITS ---
Test Reason : HYPOGLYCEMIA Blood Pressure : / mmHG Vent. Rate : 078 BPM Atrial Rate : 078 BPM P-R Int : 170 ms QRS Dur : 078 ms QT Int : 408 ms P-R-T Axes : 058 078 032 degrees QTc Int : 465 ms Normal sinus rhythm Low voltage QRS Septal infarct , age undetermined Abnormal ECG Confirmed by JB BOWMAN, ANTONIO ([id number]), book or script editor RADHA TAPIA ([id number]) on 05/20/2021 2:29:04 P M Referred By: KAYLI/ALDAIR Confirmed By:NEEMA MUHAMMAD MD
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
[2021-05-19 17:51] LABS: Bedside Glucose > 500 mg/dL (70-110)
[2021-05-19 18:06] LABS: Mucous, Urine 0 SEEN /hpf (<or=2+); Squamous Epithelial Cells - UA 0 SEEN /hpf (5-10)
[2021-05-19 18:15] LABS: Absolute Lymphocyte Count 0.82 X10^3/uL (0.83-4.51); Absolute Neutrophil Count 3.6 X10^3/uL (2.0-7.7); Basophil# 0.03 X10^3/uL; Basophil% 0.6 % (0-1); Eosinophil# 0.11 X10^3/uL; Eosinophils% 2.2 % (0-5); Hemoglobin 8.8 g/dL (12.0-15.0); Lymphocyte # 0.82 X10^3/ul (0.83-4.51); Lymphocyte % 16.3 % (19-41); Mean Corp Hgb Conc 31.4 g/dL (32-36); Mean Corpuscular Volume 104.9 fL (81-99); Mean Platelet Vol. 9.9 fl (6.2-12.0); Monocyte# 0.43 X10^3/uL; Monocyte% 8.6 % (0-10); NRBC Flagged by Analyzer 0 % (0-5); Neutrophil # 3.62 X10^3/uL (2.7-7.7); Neutrophil % 72.1 % (47-70); Platelet Count 174 K/mm3 (150-450); RBC Distribution Width CV 14.2 % (11.6-14.6); RBC Distribution Width SD 53.7 fl (35.1-43.9); Red Blood Count 2.67 M/mm3 (4.2-5.4)
[2021-05-19 18:18] LABS: Color, Urine Amber (Yellow); Glucose, Dipstick 1000 mg/dl (Normal); Ketone-Dipstick Negative (Negative); Leukocyte Esterase-Dipstick 500 /ul (Negative); Nitrite-Dipstick Negative (Negative); Occult Blood-Urine 250 /ul (Negative); Protein-Dipstick 500 mg/dl (Negative); Specific Gravity, Urine 1.015 (1.002-1.030); Urine Bilirubin Dipstick Negative (Negative); Urine Clarity Cloudy (Clear); Urine Urobilinogen Normal (Normal)
[2021-05-19 18:38] LABS: Anion Gap 8 (5-15); BUN 29 mg/dL (7-18); BUN/Creat Ratio 8.7 RATIO (10-20); Calcium,Total 8.2 mg/dL (8.5-10.1); Chloride 92 mmol/L (98-107); Creatinine, Serum 3.33 mg/dL (0.55-1.02); EST Glomerular Filtration Rate 14 mL/min (>60); Est Glom Filt Rate - Afr Amer 17 mL/min (>60); Estimated Creatinine Clearance 11.54 ml/min; Glucose 565 mg/dL (74-106); Potassium 3.8 mmol/L (3.5-5.1); Sodium Level 129 mmol/L (136-145)
[2021-05-19 19:02] LABS: Bacteria 3+ /hpf (None Seen); Red Blood Cells-Urine 25-50 SEEN /hpf (0-5); White Blood Cells 25-50 SEEN /hpf (0-5); Yeast-Urine 1+ /hpf (None Seen)
[2021-05-19] MEDS: Insulin Lispro 100 UNIT/ML INSULN.PEN 10 UNIT SC ×2 (19:08→20:22)
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
--- NOTE | 2021-05-19 19:58 | ED.RN ---
pt. blood sugar recheck. 500, pt. nurse and md aware
[2021-05-19 20:01] LABS: Bedside Glucose 500 mg/dL (70-110)
[2021-05-19] MEDS: Ceftriaxone 1 GM/50 ML BAG IV (20:15)
[2021-05-19] MEDS: Furosemide 40 MG/4 ML Vial IV (20:22)
[2021-05-19 21:00] LABS: Probe Check PASS; Specimen Processing Control PASS
--- NOTE | 2021-05-19 21:17 | PCS.PANDOC ---
PANDEMIC DOCUMENTATION INITIATED: Date: 02/15/2021 Time: 190
[2021-05-19 21:31] LABS: BNP,B-Type NATRIURETIC PEPTIDE 587.3 pg/mL (0-100)
[2021-05-19] MEDS: Atorvastatin Calcium 10 MG Tablet PO (21:54)
[2021-05-19] MEDS: Gabapentin 100 MG Capsule 200 MG PO (21:54)
[2021-05-19] MEDS: Heparin Injection (Vial) 5,000 UNIT/ML VIAL 5000 UNIT SC (21:55)
[2021-05-19 22:03] LABS: Magnesium 1.9 mg/dL (1.6-2.6); Phosphorus 4.5 mg/dL (2.5-4.9)
[2021-05-19 22:11] LABS: Procalcitonin 0.68 ng/mL (0.00-0.09)
[2021-05-19 22:11] LABS: Bedside Glucose 411 mg/dL (70-110)
[2021-05-19 22:26] LABS: Troponin-I HS 17 pg/mL (3.0-54.0)
[2021-05-19] MEDS: Insulin Lispro 100 UNIT/ML INSULN.PEN SC (22:58)
[2021-05-20] VITALS (12 sets, daily range): BP systolic 136–151; BP diastolic 59–67; PULSE 71–93; RESP 16–20; TEMP 36.8–37; O2SAT 92–94
[2021-05-20] MEDS: Lacosamide 100 MG Tablet PO ×3 (00:13→22:35)
[2021-05-20 00:38] LABS: Troponin-I HS 16 pg/mL (3.0-54.0)
[2021-05-20 01:36] LABS: M R Staph aureus DNA By PCR POSITIVE (Negative); Probe Check PASS; Specimen Processing Control PASS; Staph aureus DNA By PCR POSITIVE (Negative)
[2021-05-20 03:41] LABS: Absolute Lymphocyte Count 1.19 X10^3/uL (0.83-4.51); Absolute Neutrophil Count 5.7 X10^3/uL (2.0-7.7); Basophil# 0.04 X10^3/uL; Basophil% 0.5 % (0-1); Eosinophil# 0.14 X10^3/uL; Eosinophils% 1.8 % (0-5); Hemoglobin 8.5 g/dL (12.0-15.0); Lymphocyte # 1.19 X10^3/ul (0.83-4.51); Lymphocyte % 15.6 % (19-41); Mean Corp Hgb Conc 32.7 g/dL (32-36); Mean Corpuscular Hgb 33.9 pg (27.0-32.0); Mean Corpuscular Volume 103.6 fL (81-99); Mean Platelet Vol. 9.1 fl (6.2-12.0); Monocyte# 0.54 X10^3/uL; Monocyte% 7.1 % (0-10); NRBC Flagged by Analyzer 0 % (0-5); Neutrophil % 74.6 % (47-70); Platelet Count 167 K/mm3 (150-450); RBC Distribution Width CV 14.2 % (11.6-14.6); RBC Distribution Width SD 53.3 fl (35.1-43.9); Red Blood Count 2.51 M/mm3 (4.2-5.4); White Blood Count 7.6 K/mm3 (4.4-11.0)
[2021-05-20 03:53] LABS: Troponin-I HS 17 pg/mL (3.0-54.0)
[2021-05-20 04:00] LABS: Bedside Glucose 50 mg/dL (70-110)
[2021-05-20 04:06] LABS: ALB/GLOB Ratio 0.5 RATIO (0.9-2.4); AST(SGOT) 22 U/L (15-37); Alanine Aminotransfer ALT/SGPT 21 U/L (13-56); Albumin, Serum 2.2 g/dL (3.2-5.0); Alkaline Phosphatase 69 U/L (45-117); Anion Gap 9 (5-15); BUN 32 mg/dL (7-18); BUN/Creat Ratio 8.9 RATIO (10-20); Calcium,Total 8.4 mg/dL (8.5-10.1); Chloride 95 mmol/L (98-107); EST Glomerular Filtration Rate 13 mL/min (>60); Est Glom Filt Rate - Afr Amer 16 mL/min (>60); Globulin 4.8 g/dL (2.2-4.2); Glucose 52 mg/dL (74-106); Potassium 3.4 mmol/L (3.5-5.1); Sodium Level 133 mmol/L (136-145)
--- NOTE | 2021-05-20 04:36 | NURSING ---
Addendum entered by Bernadine Estevez 05/20/21 05:28: Rechecked BS 84 Addendum entered by Bernadine Estevez 05/20/21 04:36: Rechecked BS 69 Original Note: 3:54 am Patient blood sugar 50 given 120ml of orange juice will recheck in 15 minutes. Patient able to response with eyes opening and talking with voice.
[2021-05-20 04:41] LABS: Bedside Glucose 69 mg/dL (70-110)
--- NOTE | 2021-05-20 04:44 | PCM.RX.CS ---
Consult Pharmacy has been consulted to manage selected antiobiotic: Vancomycin Type of Consult: New start Labs: Sodium 133 mmol/L (136-145) L 05/20/21 03:24 Potassium 3.4 mmol/L (3.5-5.1) L 05/20/21 03:24 Chloride 95 mmol/L (98-107) L 05/20/21 03:24 Carbon Dioxide 29.0 mmol/L (21.0-32.0) 05/20/21 03:24 Anion Gap 9 (5-15) 05/20/21 03:24 BUN 32 mg/dL (7-18) H 05/20/21 03:24 Creatinine 3.60 mg/dL (0.55-1.02) H 05/20/21 03:24 Est GFR (MDRD) Af Amer 16 mL/min (>60) L 05/20/21 03:24 Est GFR (MDRD) Non-Af 13 mL/min (>60) L 05/20/21 03:24 BUN/Creatinine Ratio 8.9 RATIO (10-20) L 05/20/21 03:24 Glucose 52 mg/dL (74-106) L 05/20/21 03:24 Microbiology: Microbiology 05/19/21 17:55 Nasal Secretion SARS-CoV-2 Antigen (Rapid) - Final Goal Trough: 10-15 mcg/mL Pharmacy Plan for Drug Dosing: Pharmacy Service will continue to monitor and adjust dosing as required. Medications Vancomycin HCl 750 mg/ Sodium (Chloride) 265 mls @ 250 mls/hr IV X1 ONE Stop: 05/20/21 13:03 Discontinued Medications Vancomycin HCl 1,250 mg/ (Sodium Chloride) 275 mls @ 167 mls/hr IV X1 ONE Stop: 05/19/21 23:08 Last Admin: 05/19/21 23:34 Dose: Infused Documented by: DIALYSIS PATIENT Follow-Up Labs: Trough Vancomycin Labs to be done on [date and time ordered]: RANDOM 05/24 WITH AM LABS
--- NOTE | 2021-05-20 04:56 | NURSING ---
Patient has not voided since coming to the unit no distended or pressure noted on bladder. Bladder scanned patient [id number] patient [place] [facility] [place]. Will continue to monitor
[2021-05-20 05:46] LABS: Bedside Glucose 84 mg/dL (70-110)
[2021-05-20] MEDS: Gabapentin 100 MG Capsule 200 MG PO ×2 (08:17→22:35)
[2021-05-20] MEDS: Pantoprazole Sodium 20 MG Tablet PO (08:17)
[2021-05-20] MEDS: Escitalopram Oxalate 10 MG Tablet PO (08:17)
[2021-05-20] MEDS: Heparin Injection (Vial) 5,000 UNIT/ML VIAL 5000 UNIT SC ×2 (08:17→22:35)
[2021-05-20] MEDS: Aspirin E.C. 81 MG Tablet PO (08:17)
[2021-05-20] MEDS: Furosemide 40 MG/4 ML Vial IV ×2 (08:23→18:17)
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
[2021-05-20 09:06] LABS: Hemoglobin A1c 7.2 % (3.8-5.6)
--- NOTE | 2021-05-20 10:52 | CASEMGMT ---
ANNIE is familiar with patient from previous admissions. Patient's employment evaluator/case manager with [employer] is Breanne Sargent ([phone]). ANNIE called Breanne and let her know about patient's admission. Patient had a home health aide 6 hours a week through [employer], emergency response button, and 7 renal meals a week from [employer]. However, in the next couple of weeks patient will get meals from [place] [employer] instead of [employer]. ANNIE told Breanne VALENCIA will keep her updated. Katelynn Bui NATURAL RESOURCES INSTRUCTOR RAYMOND
[2021-05-20 11:36] LABS: Bedside Glucose 103 mg/dL (70-110)
--- NOTE | 2021-05-20 12:30 | CASEMGMT ---
Addendum entered by Rosemary Shahid 05/20/21 18:00: 1500: Pt resting in bed and is awake now. Pt/ made aware [place] [facility] is not agreeable to accepting her back d/t non-compliance to being homebound. They voice understanding. Pt states she does not wish for another [facility] referral to be made elsewhere at this time. Original Note: RN CM PROCESS EQUIPMENT OPERATOR CM to room to meet with patient for initial transition planning/care coordination assessment. ERICA TREVIÑO introduced self and role at [facility].? Pt receiving dialysis at this time and is sleepy/groggy. , Maurice, @ bedside and answered the following questions. Care providers, pharmacy, and demographics verified/updated at this time. PCP: Dr Toribio Specialists: Dr Steward--buffing and sueding machine operator. [facility]. Chair time @ 1000, Dr Ramirez-cardiology [facility]: [employer] [facility], [facility] Community Plan Prescription Benefit:? Yes Living Will/HPOA:?Maurice is unsure if pt has done LW. Pt has HCPOA, who is her dtr, Beverly Butler. LNOK: , Maurice. Dtr/POABeverly Living Arrangements: Pt lives w/her in one-story home w/ramp entrance. Pt/ have been just a little over a year. Pt able to ambulate on her own short distances/in the home. assists w/bathing and dressing and does most of the home mgmt tasks. Pt manages her own medications and appts. Pt has a Director Of Golf, Shellie ([phone]) through [facility] and has a CM, Breanne Sargent through [facility]. She has aides and receives home delivered meals. Transportation: . Pt states [employer] for transportation to Dialysis and dr marquez. DME: ?Pt has the following DME:? BSC, RTS, walker, rollator, W/C, lift chair, and glucometer. She also has/does not use: shower chair d/t it does not fit in the shower. Pt does not have home O2. denies needing any further DME. HHC/SNF: Pt has been to [facility] and [facility] and has had [facility], which was set up last admission. states is not sure if she is still active w/them. TC placed to [facility]. Pt was just discharged from their services yesterday d/t non-compliance w/homebound status and they are not agreeable to taking her back. CM to follow for home oxygen needs and any further discharge planning/needs.? voices no further concerns/needs at this time.? PLAN: TBD. Follow PT/OT notes/recommendations and any O2 needs @ d/c. does not think pt will be agreeable to SNF and is not sure about HHC either. Ki BSN RN CM
--- NOTE | 2021-05-20 13:42 | DIALYSIS ---
HD X 3.5 HOURS ON 3K BATH UF-3000ML TOLERATED WELL VITALS STABLE THRU OUT TREATMENT. GOOD FLOWS FROM RIJ CATH NO MEDS GIVEN REPORT TO KENDRA MALDONADO
--- NOTE | 2021-05-20 14:58 | CASEMGMT ---
ANNIE received a call from Shellie Fields, patient's employment case manager with [employer]. She would like updated on patient's d/c plan when known. Shellie's phone number is [phone]. Katelynn ANDRADE
--- NOTE | 2021-05-20 16:40 | PCM.PN.HOSP ---
Subjective Subjective Patient seen and examined. She was admitted with a complaint of fatigue, malaise and chills as well as worsening shortness of breath and cough and hyperglycemia. She also had generalized pain mainly in her lower extremities. She was noted to be fatigued but arousable on admission. Chest x-ray showed patchy pericentral pulmonary opacities. She has been managed for acute metabolic encephalopathy due to acute decompensated CHF and UTI. Patient was lethargic but arousable this morning. She would wake up to start answering questions and then promptly dozes off. Unable to do complete review of systems due to patient's lethargic. She was about to commence dialysis at time of review. She was otherwise hemodynamically stable. Labs were significant for potassium of 3.4. Objective Data Objective Data Vital Signs: Vital Signs Temp Pulse Resp BP Pulse Ox 98.3 F 75 16 141/67 H 94 05/20/21 09:40 05/20/21 11:13 05/20/21 09:40 05/20/21 09:40 05/20/21 09:40 Oxygen Flow Rate (L/min) 1.5 Oxygen Delivery Method Nasal Cannula Weight: 190 lb 11.903 oz Body Mass Index (BMI) 37.1 Intake & Output: Intake and Output for Last 24 Hours 05/18/21 05/19/21 05/20/21 23:59 23:59 23:59 Intake Total 445 / 445 265 / 265 Output Total 0 / 0 3000 / 3000 Balance 445 / 445 -2735 / -2735 Lab / Micro Data Result Diagrams: 05/20/21 03:24 05/20/21 03:24 Labs: Laboratory Results - last 24 hr 05/19/21 14:53: WBC 5.0, RBC 2.67 L, Hgb 8.8 L, Hct 28.0 L, MCV 104.9 H, MCH 33.0 H, MCHC 31.4 L, RDW Std Deviation 53.7 H, RDW Coeff of Kusum 14.2, Plt Count 174, MPV 9.9, Immature Gran % (Auto) 0.200, Neut % (Auto) 72.1 H, Lymph % (Auto) 16.3 L, [place] % (Auto) 8.6, Eos % (Auto) 2.2, Baso % (Auto) 0.6, Absolute Neuts (auto) 3.6, Absolute Lymphs (auto) 0.82 L, Nucleated RBC % 0 05/19/21 14:53: Sodium 129 L, Potassium 3.8, Chloride 92 L, Carbon Dioxide 29.0, Anion Gap 8, BUN 29 H, Creatinine 3.33 H, Estim Creat Clear Calc 11.54, Est GFR (MDRD) Af Amer 17 L, Est GFR (MDRD) Non-Af 14 L, BUN/Creatinine Ratio 8.7 L, Glucose 565 H*, Calcium 8.2 L 05/19/21 14:53: Phosphorus 4.5, Magnesium 1.9 05/19/21 14:53: B-Natriuretic Peptide 587.3 H 05/19/21 17:48: POC Glucose > 500 H* 05/19/21 18:00: Urine Color Nilsa, Urine Clarity Cloudy, Urine pH 5.0, Ur Specific [place] 1.015, Urine Protein 500 H, Urine Glucose (UA) 1000 H, Urine Ketones Negative, Urine Occult Blood 250 H, Urine Nitrite Negative, Urine Bilirubin Negative, Urine Urobilinogen Normal, Ur Leukocyte Esterase 500 H, Urine RBC 25-50 SEEN, Urine WBC 25-50 SEEN, Ur Squamous Epith Cells 0 SEEN, Urine Bacteria 3+, Urine Mucus 0 SEEN, Urine Yeast 1+ 05/19/21 18:10: Acetone Level NEGATIVE 05/19/21 18:10: Procalcitonin 0.68 H 05/19/21 19:56: POC Glucose 500 H* 05/19/21 20:00: COVID-19 (HENRY) Negative 05/19/21 21:49: Troponin I High Sens 17 05/19/21 22:01: POC Glucose 411 H 05/19/21 23:00: S.aureus Protein A PCR POSITIVE H, MRSA (PCR) POSITIVE H 05/19/21 23:47: Troponin I High Sens 16 05/20/21 03:24: WBC 7.6, RBC 2.51 L, Hgb 8.5 L, Hct 26.0 L, MCV 103.6 H, MCH 33.9 H, MCHC 32.7, RDW Std Deviation 53.3 H, RDW Coeff of Kusum 14.2, Plt Count 167, MPV 9.1, Immature Gran % (Auto) 0.400, Neut % (Auto) 74.6 H, Lymph % (Auto) 15.6 L, [place] % (Auto) 7.1, Eos % (Auto) 1.8, Baso % (Auto) 0.5, Absolute Neuts (auto) 5.7, Absolute Lymphs (auto) 1.19, Nucleated RBC % 0 05/20/21 03:24: Sodium 133 L, Potassium 3.4 L, Chloride 95 L, Carbon Dioxide 29.0, Anion Gap 9, BUN 32 H, Creatinine 3.60 H, Estim Creat Clear Calc 9.70, Est GFR (MDRD) Af Amer 16 L, Est GFR (MDRD) Non-Af 13 L, BUN/Creatinine Ratio 8.9 L, Glucose 52 L, Calcium 8.4 L, Total Bilirubin 0.60, AST 22, ALT 21, Alkaline Phosphatase 69, Total Protein 7.0, Albumin 2.2 L, Globulin 4.8 H, Albumin/Globulin Ratio 0.5 L 05/20/21 03:24: Hemoglobin A1c 7.2 H 05/20/21 03:24: Troponin I High Sens 17 05/20/21 03:54: POC Glucose 50 L 05/20/21 04:34: POC Glucose 69 L 05/20/21 05:27: POC Glucose 84 05/20/21 11:32: POC Glucose 103 Micro: Microbiology 05/19/21 18:00 Urine, Catheterized Urine Culture - Preliminary GPC Poss Enterococcus sp 05/20/21 00:16 Sputum, Expectorated/Coughed Gram Stain - Final 05/19/21 23:00 Wound - Leg, Right Gram Stain - Final 05/19/21 20:00 Mucosa - Nasopharyngeal Respiratory Panel (PCR) - Final 05/19/21 17:55 Nasal Secretion SARS-CoV-2 Antigen (Rapid) - Final Radiography Diagnostic Testing: Radiology Impression Chest X-Ray 05/19/21 17:45 IMPRESSION: Findings most suggestive of CHF/pulmonary edema. Superimposed pneumonia should be excluded clinically. Electronically Signed: Lonnie Beasley MD at 19:05 EST Tel , Service support , Physical Exam Const Constitutional Narrative: drowsy but arousable Orientation / Consciousness: lethargic Exam Limitations: altered mental status HEENT head/scalp atraumatic Head and Scalp: normocephalic Mouth: dry mucous membranes Eyes PERRL, EOMs intact bilaterally and conjunctivae normal Neck no lymphadenopathy Resp Resp Narrative: diminished breath sounds bibasally, no wheezes or crackles. On 1-2L of oxygen by nasal canula. Cardio regular rate, regular rhythm, S1 normal heart sound, S2 normal heart sound and no murmurs GI normal to inspection, nondistended, normoactive bowel sounds, soft to palpation, non-tender and non-distended Extremity normal to inspection and full ROM Peripheral Pulses: Yes pulses 2+ throughout Skin Skin Narrative: dressing over right wolfe. no edema Neuro Neuro Narrative: Drowsy and lethargic. Assessment & Plan Assessment/Plan (1) UTI (urinary tract infection): QUALIFIERS: Urinary tract infection type: site unspecified Hematuria presence: without hematuria Qualified Code(s): N39.0 - Urinary tract infection, site not specified PLAN: #Acute metabolic encephalopathy Etiology is unclear but this could be due to uremia as patient often becomes encephalopathic and has had numerous admissions for this and always responds to dialysis. Patient having dialysis today. Nephrology on board. PT OT on board. Fall precautions. Also has a UTI so this could be contributing to her encephalopathy. #Acute decompensated diastolic heart failure: Being diuresed with IV Lasix. Also had dialysis today which will help with fluid overload. #UTI: Urine cultures pending. On IV Rocephin. Await urine and blood cultures. Also on vancomycin #Type 2 diabetes mellitus with hyperglycemia: There was no evidence of DKA. On insulin sliding scale. Continue home insulin Lantus 20 units twice daily. Accu-Cheks AC at bedtime. #ESRD: Has dialysis on Wednesdays and Fridays. Nephrology consulted. #Paroxysmal A. fib: Not on any rate limiting medications. Currently not anticoagulated. Not clear why #. Hyperlipidemia: On lisinopril. IV hydralazine as needed. #Hyperlipidemia: On statin #History of seizure disorder: On Vimpat ELENITA: On CPAP nightly DVT prophylaxis: On heparin Charges/Coding Visit Charges Inpatient E&M: [id number] [facility] [place] [facility] L3
[2021-05-20 17:20] LABS: Bedside Glucose 106 mg/dL (70-110)
[2021-05-20 22:30] LABS: Bedside Glucose 140 mg/dL (70-110)
[2021-05-20] MEDS: Atorvastatin Calcium 10 MG Tablet PO (22:35)
[2021-05-20] MEDS: Ceftriaxone 1 GM/50 ML BAG IV (22:37)
[2021-05-21] VITALS (9 sets, daily range): BP systolic 137–159; BP diastolic 51–65; PULSE 75–81; RESP 16–18; TEMP 36.6–38; O2SAT 94–100
[2021-05-21 03:56] LABS: Bedside Glucose 103 mg/dL (70-110)
[2021-05-21 06:46] LABS: Absolute Lymphocyte Count 1.12 X10^3/uL (0.83-4.51); Absolute Neutrophil Count 5.1 X10^3/uL (2.0-7.7); Basophil# 0.06 X10^3/uL; Basophil% 0.8 % (0-1); Eosinophil# 0.21 X10^3/uL; Hematocrit 26.9 % (37-47); Hemoglobin 8.6 g/dL (12.0-15.0); Lymphocyte # 1.12 X10^3/ul (0.83-4.51); Lymphocyte % 15.8 % (19-41); Mean Corpuscular Hgb 33.7 pg (27.0-32.0); Mean Corpuscular Volume 105.5 fL (81-99); Mean Platelet Vol. 9.7 fl (6.2-12.0); Monocyte% 8.5 % (0-10); NRBC Flagged by Analyzer 0 % (0-5); Neutrophil # 5.07 X10^3/uL (2.7-7.7); Neutrophil % 71.6 % (47-70); Platelet Count 171 K/mm3 (150-450); RBC Distribution Width CV 14.6 % (11.6-14.6); RBC Distribution Width SD 55.5 fl (35.1-43.9); Red Blood Count 2.55 M/mm3 (4.2-5.4); White Blood Count 7.1 K/mm3 (4.4-11.0)
--- NOTE | 2021-05-21 06:58 | NURSING ---
BS 56 given orange juice rechecked 76. Pt was able to speak and drink at this time.
[2021-05-21 07:01] LABS: Bedside Glucose 56 mg/dL (70-110)
[2021-05-21 07:01] LABS: Bedside Glucose 76 mg/dL (70-110)
[2021-05-21 07:15] LABS: Anion Gap 7 (5-15); BUN 23 mg/dL (7-18); BUN/Creat Ratio 8.6 RATIO (10-20); Calcium,Total 8.3 mg/dL (8.5-10.1); Chloride 97 mmol/L (98-107); Creatinine, Serum 2.66 mg/dL (0.55-1.02); EST Glomerular Filtration Rate 19 mL/min (>60); Est Glom Filt Rate - Afr Amer 23 mL/min (>60); Estimated Creatinine Clearance 13.13 ml/min; Glucose 61 mg/dL (74-106); Potassium 4.1 mmol/L (3.5-5.1); Sodium Level 132 mmol/L (136-145)
[2021-05-21] MEDS: Heparin Injection (Vial) 5,000 UNIT/ML VIAL 5000 UNIT SC ×2 (09:29→23:09)
[2021-05-21] MEDS: Furosemide 40 MG/4 ML Vial IV ×2 (09:29→17:44)
[2021-05-21] MEDS: Gabapentin 100 MG Capsule 200 MG PO ×2 (09:29→23:09)
[2021-05-21] MEDS: Escitalopram Oxalate 10 MG Tablet PO (09:29)
[2021-05-21] MEDS: Aspirin E.C. 81 MG Tablet PO (09:29)
[2021-05-21] MEDS: Lacosamide 100 MG Tablet PO ×2 (09:29→23:09)
[2021-05-21] MEDS: Pantoprazole Sodium 20 MG Tablet PO (09:29)
[2021-05-21] MEDS: 0.9% Saline Lock 10 ML Syringe IV ×2 (09:30→17:44)
[2021-05-21] MEDS: Insulin Lispro 100 UNIT/ML INSULN.PEN SC (11:11)
[2021-05-21 11:15] LABS: Bedside Glucose 213 mg/dL (70-110)
--- NOTE | 2021-05-21 11:21 | PCM.PN.REN ---
Subjective Subjective doing well. Still with rt leg wound, mild swelling in legs. 3.5L fluid removal on dialysis yesterday Objective Data Objective Data Vital Signs: Vital Signs Temp Pulse Resp BP Pulse Ox 98.5 F 79 16 137/51 H 96 05/21/21 09:28 05/21/21 09:28 05/21/21 09:28 05/21/21 09:28 05/21/21 09:28 Oxygen Flow Rate (L/min) 1.5 Oxygen Delivery Method Room Air Weight: 83.6 kg Body Mass Index (BMI) 37.1 Intake & Output: Intake and Output for Last 24 Hours 05/19/21 05/20/21 05/21/21 23:59 23:59 23:59 Intake Total 445 / 445 435 / 435 120 / 120 Output Total 0 / 0 3150 / 3150 Balance 445 / 445 -2715 / -2715 120 / 120 Lab / Micro Data Result Diagrams: 05/21/21 06:09 05/21/21 06:09 Labs: Laboratory Results - last 24 hr 05/20/21 11:32: POC Glucose 103 05/20/21 17:13: POC Glucose 106 05/20/21 22:24: POC Glucose 140 H 05/21/21 03:29: POC Glucose 103 05/21/21 06:09: WBC 7.1, RBC 2.55 L, Hgb 8.6 L, Hct 26.9 L, MCV 105.5 H, MCH 33.7 H, MCHC 32.0, RDW Std Deviation 55.5 H, RDW Coeff of Kusum 14.6, Plt Count 171, MPV 9.7, Immature Gran % (Auto) 0.300, Neut % (Auto) 71.6 H, Lymph % (Auto) 15.8 L, [place] % (Auto) 8.5, Eos % (Auto) 3.0, Baso % (Auto) 0.8, Absolute Neuts (auto) 5.1, Absolute Lymphs (auto) 1.12, Nucleated RBC % 0 05/21/21 06:09: Sodium 132 L, Potassium 4.1, Chloride 97 L, Carbon Dioxide 28.0, Anion Gap 7, BUN 23 H, Creatinine 2.66 H, Estim Creat Clear Calc 13.13, Est GFR (MDRD) Af Amer 23 L, Est GFR (MDRD) Non-Af 19 L, BUN/Creatinine Ratio 8.6 L, Glucose 61 L, Calcium 8.3 L 05/21/21 06:28: POC Glucose 56 L 05/21/21 06:57: POC Glucose 76 05/21/21 11:10: POC Glucose 213 H Micro: Microbiology 05/19/21 18:00 Urine, Catheterized Urine Culture - Final Enterococcus faecalis 05/20/21 23:14 Urine, Clean Catch Legionella Antigen - Final 05/20/21 23:14 Urine, Clean Catch Streptococcus pneumoniae Antigen (M - Final 05/20/21 00:16 Sputum, Expectorated/Coughed Gram Stain - Final 05/19/21 23:00 Wound - Leg, Right Gram Stain - Final 05/19/21 20:00 Mucosa - Nasopharyngeal Respiratory Panel (PCR) - Final 05/19/21 17:55 Nasal Secretion SARS-CoV-2 Antigen (Rapid) - Final Physical Exam Const alert and oriented x3 Resp clear to auscultation bilaterally Cardio regular rate GI non-tender and non-distended Auscultation: normoactive bowel sounds Palpation: soft Extremity General Extremity: edema Skin Skin Narrative: leg wound rt wolfe Neuro Sensorium / Orientation: awake and alert Assessment & Plan Assessment/Plan (1) ESRD (end stage renal disease) on dialysis: PLAN: dialysis THS (2) Hyperglycemia: PLAN: resolved (3) Open wound of right lower extremity: QUALIFIERS: Encounter type: initial encounter Qualified Code(s): S81.801A - Unspecified open wound, right lower leg, initial encounter PLAN: follow up with wound center as outpt (4) Benign essential HTN: PLAN: stable (5) DM type 2 (diabetes mellitus, type 2): PLAN: primary service mgmt
--- NOTE | 2021-05-21 11:42 | PN.HOSP_ITS ---
Subjective Subjective Patient seen and examined. She is much more alert today. She has no active complaints. Review of systems otherwise negative. Her confusion improved markedly after dialysis. She has remained hemodynamically stable. Objective Data Objective Data Vital Signs: Vital Signs Temp Pulse Resp BP Pulse Ox 98.5 F 79 16 137/51 H 96 05/21/21 09:28 05/21/21 09:28 05/21/21 09:28 05/21/21 09:28 05/21/21 09:28 Oxygen Flow Rate (L/min) 1.5 Oxygen Delivery Method Room Air Weight: 184 lb 4.903 oz Body Mass Index (BMI) 37.1 Intake & Output: Intake and Output for Last 24 Hours 05/19/21 05/20/21 05/21/21 23:59 23:59 23:59 Intake Total 445 / 445 435 / 435 120 / 120 Output Total 0 / 0 3150 / 3150 275 / 275 Balance 445 / 445 -2715 / -2715 -155 / -155 Lab / Micro Data Result Diagrams: 05/21/21 06:09 05/21/21 06:09 Labs: Laboratory Results - last 24 hr 05/20/21 17:13: POC Glucose 106 05/20/21 22:24: POC Glucose 140 H 05/21/21 03:29: POC Glucose 103 05/21/21 06:09: WBC 7.1, RBC 2.55 L, Hgb 8.6 L, Hct 26.9 L, MCV 105.5 H, MCH 33.7 H, MCHC 32.0, RDW Std Deviation 55.5 H, RDW Coeff of Kusum 14.6, Plt Count 171, MPV 9.7, Immature Gran % (Auto) 0.300, Neut % (Auto) 71.6 H, Lymph % (Auto) 15.8 L, [place] % (Auto) 8.5, Eos % (Auto) 3.0, Baso % (Auto) 0.8, Absolute Neuts (auto) 5.1, Absolute Lymphs (auto) 1.12, Nucleated RBC % 0 05/21/21 06:09: Sodium 132 L, Potassium 4.1, Chloride 97 L, Carbon Dioxide 28.0, Anion Gap 7, BUN 23 H, Creatinine 2.66 H, Estim Creat Clear Calc 13.13, Est GFR (MDRD) Af Amer 23 L, Est GFR (MDRD) Non-Af 19 L, BUN/Creatinine Ratio 8.6 L, Glucose 61 L, Calcium 8.3 L 05/21/21 06:28: POC Glucose 56 L 05/21/21 06:57: POC Glucose 76 05/21/21 11:10: POC Glucose 213 H Micro: Microbiology 05/19/21 18:00 Urine, Catheterized Urine Culture - Final Enterococcus faecalis 05/20/21 23:14 Urine, Clean Catch Legionella Antigen - Final 05/20/21 23:14 Urine, Clean Catch Streptococcus pneumoniae Antigen (M - Final 05/20/21 00:16 Sputum, Expectorated/Coughed Gram Stain - Final 05/19/21 23:00 Wound - Leg, Right Gram Stain - Final 05/19/21 20:00 Mucosa - Nasopharyngeal Respiratory Panel (PCR) - Final 05/19/21 17:55 Nasal Secretion SARS-CoV-2 Antigen (Rapid) - Final Physical Exam Const alert, oriented x3 and no apparent distress Constitutional Narrative: lethargy has resolved. Exam Limitations: no limitations Nutritional Appearance: obese HEENT head/scalp atraumatic Head and Scalp: normocephalic Eyes PERRL, EOMs intact bilaterally and conjunctivae normal Neck no lymphadenopathy Resp Resp Narrative: diminished breath sounds bibasally, no wheezes or crackles. On room air Cardio regular rate, regular rhythm, S1 normal heart sound, S2 normal heart sound and no murmurs GI normal to inspection, nondistended, normoactive bowel sounds, soft to palpation, non-tender and non-distended Extremity normal to inspection and full ROM Peripheral Pulses: Yes pulses 2+ throughout Skin Skin Narrative: dressing over right wolfe. no edema Neuro oriented x3, CN's II-XII intact bilaterally and moves all extremities Sensorium / Orientation: awake and alert Psych affect normal Assessment & Plan Assessment/Plan (1) UTI (urinary tract infection): QUALIFIERS: Urinary tract infection type: site unspecified Hematuria presence: without hematuria Qualified Code(s): N39.0 - Urinary tract infection, site not specified PLAN: #Acute metabolic encephalopathy * resolved with dialysis. * patient now alert and oriented * PT/OT on board. Fall precautions. * * #Acute decompensated diastolic heart failure: * being diuresed with IV lasix. * #UTI: Urine cultures growing Enterococcus faecalis. Will DC ceftriaxone and continue IV vancomycin. Blood cultures pending. #Type 2 diabetes mellitus with hyperglycemia: * On insulin sliding scale. * Continue home insulin Lantus 20 units twice daily. * Accu-Cheks AC at bedtime. #ESRD: Has dialysis on Wednesdays and Fridays. Nephrology on board. Had dialysis yesterday. #Paroxysmal A. fib: Not on any rate limiting medications. Currently not anticoagulated. Not clear why #. Hypertension: On lisinopril. IV hydralazine as needed. #Hyperlipidemia: On statin #History of seizure disorder: On Vimpat ELENITA: On CPAP nightly DVT prophylaxis: On heparin Charges/Coding Visit Charges Inpatient E&M: 13107 Subs Hosp L2
--- NOTE | 2021-05-21 12:27 | CASEMGMT ---
Patient has a Healthcare Power of Physician Underwriter on file at [facility]. Her daughter Beverly Butler is her Healthcare POA. Patient does not have a Healthcare Living Will. Katelynn uBi MSW R[place]
--- NOTE | 2021-05-21 14:33 | CASEMGMT ---
This RN CM to room and pt declines need for any further therapy or wound care at discharge. Pt states she changes own dressing and follows in the wound center. Pt voices no further questions/concerns/needs. SStaten ERICA CM
[2021-05-21 16:51] LABS: Bedside Glucose 61 mg/dL (70-110)
[2021-05-21 23:01] LABS: Bedside Glucose 119 mg/dL (70-110)
[2021-05-21] MEDS: Atorvastatin Calcium 10 MG Tablet PO (23:13)
[2021-05-22] VITALS (10 sets, daily range): BP systolic 152–182; BP diastolic 58–74; PULSE 75–81; RESP 16–18; TEMP 36.4–36.7; O2SAT 94–96
[2021-05-22] MEDS: hydrALAZINE 20 MG/ML Vial 10 MG IV (03:44)
[2021-05-22 03:56] LABS: Bedside Glucose 58 mg/dL (70-110)
[2021-05-22 03:56] LABS: Bedside Glucose 76 mg/dL (70-110)
--- NOTE | 2021-05-22 04:01 | PCM.HOSP.N ---
Hospitalist Note Patient with episodes of a.m. hypoglycemia per discussion with staff therefore patient long-acting twice daily regimen was decreased to 10 units twice daily however this morning patient again with recurrent hypoglycemia of 58, improved to 76 with oral intake. Given this review of trending will decrease to 5 unit twice daily and may need to even consider only a.m. dosing.
[2021-05-22 06:39] LABS: Absolute Lymphocyte Count 1.12 X10^3/uL (0.83-4.51); Basophil# 0.05 X10^3/uL; Basophil% 0.9 % (0-1); Eosinophil# 0.19 X10^3/uL; Eosinophils% 3.2 % (0-5); Hematocrit 26.8 % (37-47); Hemoglobin 8.8 g/dL (12.0-15.0); Lymphocyte # 1.12 X10^3/ul (0.83-4.51); Lymphocyte % 19.1 % (19-41); Mean Corp Hgb Conc 32.8 g/dL (32-36); Mean Corpuscular Hgb 33.8 pg (27.0-32.0); Mean Corpuscular Volume 103.1 fL (81-99); Mean Platelet Vol. 9.5 fl (6.2-12.0); Monocyte# 0.47 X10^3/uL; NRBC Flagged by Analyzer 0 % (0-5); Neutrophil % 68.3 % (47-70); Platelet Count 155 K/mm3 (150-450); RBC Distribution Width CV 14.6 % (11.6-14.6); RBC Distribution Width SD 54.2 fl (35.1-43.9); White Blood Count 5.9 K/mm3 (4.4-11.0)
[2021-05-22 07:01] LABS: Bedside Glucose 84 mg/dL (70-110)
[2021-05-22 07:05] LABS: Anion Gap 8 (5-15); BUN 35 mg/dL (7-18); BUN/Creat Ratio 10.6 RATIO (10-20); Calcium,Total 8.4 mg/dL (8.5-10.1); Chloride 94 mmol/L (98-107); Creatinine, Serum 3.29 mg/dL (0.55-1.02); EST Glomerular Filtration Rate 15 mL/min (>60); Est Glom Filt Rate - Afr Amer 18 mL/min (>60); Estimated Creatinine Clearance 10.61 ml/min; Glucose 89 mg/dL (74-106); Potassium 4.3 mmol/L (3.5-5.1); Sodium Level 129 mmol/L (136-145)
[2021-05-22] MEDS: Heparin Injection (Vial) 5,000 UNIT/ML VIAL 5000 UNIT SC (08:14)
[2021-05-22] MEDS: Gabapentin 100 MG Capsule 200 MG PO (08:15)
[2021-05-22] MEDS: Escitalopram Oxalate 10 MG Tablet PO (08:15)
[2021-05-22] MEDS: Pantoprazole Sodium 20 MG Tablet PO (08:15)
[2021-05-22] MEDS: Aspirin E.C. 81 MG Tablet PO (08:15)
[2021-05-22] MEDS: Furosemide 40 MG/4 ML Vial IV (08:16)
[2021-05-22] MEDS: Lacosamide 100 MG Tablet PO (08:21)
--- NOTE | 2021-05-22 08:36 | PCM.RX.CS ---
Consult Pharmacy has been consulted to manage selected antiobiotic: Vancomycin Type of Consult: Follow-up Suspected Infection: Skin/Soft tissue Prior Doses of Antibiotics Received/Current Regimen: Last dose [id number] iv x 1 on 05.20.21. Labs: Sodium 129 mmol/L (136-145) L 05/22/21 06:14 Potassium 4.3 mmol/L (3.5-5.1) 05/22/21 06:14 Chloride 94 mmol/L (98-107) L 05/22/21 06:14 Carbon Dioxide 27.0 mmol/L (21.0-32.0) 05/22/21 06:14 Anion Gap 8 (5-15) 05/22/21 06:14 BUN 35 mg/dL (7-18) H 05/22/21 06:14 Creatinine 3.29 mg/dL (0.55-1.02) H 05/22/21 06:14 Est GFR (MDRD) Af Amer 18 mL/min (>60) L 05/22/21 06:14 Est GFR (MDRD) Non-Af 15 mL/min (>60) L 05/22/21 06:14 BUN/Creatinine Ratio 10.6 RATIO (10-20) 05/22/21 06:14 Glucose 89 mg/dL (74-106) 05/22/21 06:14 Random Vancomycin 16.0 ug/mL (0.0-15.0) H 05/22/21 06:14 Microbiology: Microbiology 05/19/21 23:00 Wound - Leg, Right Gram Stain - Final 05/19/21 23:00 Wound - Leg, Right Wound Culture - Final Meth. resistant Staph. aureus 05/20/21 00:16 Sputum, Expectorated/Coughed Gram Stain - Final 05/20/21 00:16 Sputum, Expectorated/Coughed Respiratory Culture - Final Meth. resistant Staph. aureus 05/19/21 18:00 Urine, Catheterized Urine Culture - Final Enterococcus faecalis 05/20/21 23:14 Urine, Clean Catch Legionella Antigen - Final 05/20/21 23:14 Urine, Clean Catch Streptococcus pneumoniae Antigen (M - Final 05/19/21 20:00 Mucosa - Nasopharyngeal Respiratory Panel (PCR) - Final 05/19/21 17:55 Nasal Secretion SARS-CoV-2 Antigen (Rapid) - Final Weight used for dosin.8 kg Estimated Creatinine Clearance: 11 ml/min Goal Trough: 15-20 mcg/mL Pharmacy Plan for Drug Dosing: Random level this a.m. was 16.0. Will give 500mg iv x 1 post dialysis today. Next random level ordered for pre dialysis on . 05.25.21. Pharmacy Service will continue to monitor and adjust dosing as required. Follow-Up Labs: Trough Vancomycin - random 05.25.21 @0600
[2021-05-22 11:41] LABS: Bedside Glucose 148 mg/dL (70-110)
--- NOTE | 2021-05-22 12:15 | PN.RENAL_ITS ---
Subjective Subjective Seen on dialysis. Tolerating well. 3.2 L fluid removal as tolerated. Sugar stable. Edema improved. Objective Data Objective Data Vital Signs: Vital Signs Temp Pulse Resp BP Pulse Ox 98.1 F 79 18 157/67 H 94 05/22/21 08:02 05/22/21 08:02 05/22/21 08:02 05/22/21 08:02 05/22/21 08:44 Oxygen Flow Rate (L/min) 1.5 Oxygen Delivery Method Room Air Weight: 85.8 kg Body Mass Index (BMI) 37.1 Intake & Output: Intake and Output for Last 24 Hours 05/20/21 05/21/21 05/22/21 23:59 23:59 23:59 Intake Total 435 / 435 1560 / 1560 Output Total 3150 / 3150 275 / 275 Balance -2715 / -2715 1285 / 1285 Lab / Micro Data Result Diagrams: 05/22/21 06:14 05/22/21 06:14 Labs: Laboratory Results - last 24 hr 05/19/21 23:00: S.aureus Protein A PCR POSITIVE H, MRSA (PCR) POSITIVE H 05/21/21 16:47: POC Glucose 61 L 05/21/21 22:06: POC Glucose 119 H 05/22/21 03:26: POC Glucose 58 L 05/22/21 03:48: POC Glucose 76 05/22/21 06:14: WBC 5.9, RBC 2.60 L, Hgb 8.8 L, Hct 26.8 L, MCV 103.1 H, MCH 33.8 H, MCHC 32.8, RDW Std Deviation 54.2 H, RDW Coeff of Kusum 14.6, Plt Count 155, MPV 9.5, Immature Gran % (Auto) 0.500, Neut % (Auto) 68.3, Lymph % (Auto) 19.1, [place] % (Auto) 8.0, Eos % (Auto) 3.2, Baso % (Auto) 0.9, Absolute Neuts (auto) 4.0, Absolute Lymphs (auto) 1.12, Nucleated RBC % 0 05/22/21 06:14: Sodium 129 L, Potassium 4.3, Chloride 94 L, Carbon Dioxide 27.0, Anion Gap 8, BUN 35 H, Creatinine 3.29 H, Estim Creat Clear Calc 10.61, Est GFR (MDRD) Af Amer 18 L, Est GFR (MDRD) Non-Af 15 L, BUN/Creatinine Ratio 10.6, Glucose 89, Calcium 8.4 L 05/22/21 06:14: Random Vancomycin 16.0 H 05/22/21 06:38: POC Glucose 84 05/22/21 11:30: POC Glucose 148 H Micro: Microbiology 05/19/21 23:00 Wound - Leg, Right Gram Stain - Final 05/19/21 23:00 Wound - Leg, Right Wound Culture - Final Meth. resistant Staph. aureus 05/20/21 00:16 Sputum, Expectorated/Coughed Gram Stain - Final 05/20/21 00:16 Sputum, Expectorated/Coughed Respiratory Culture - Final Meth. resistant Staph. aureus 05/19/21 18:00 Urine, Catheterized Urine Culture - Final Enterococcus faecalis 05/20/21 23:14 Urine, Clean Catch Legionella Antigen - Final 05/20/21 23:14 Urine, Clean Catch Streptococcus pneumoniae Antigen (M - Final 05/19/21 20:00 Mucosa - Nasopharyngeal Respiratory Panel (PCR) - Final 05/19/21 17:55 Nasal Secretion SARS-CoV-2 Antigen (Rapid) - Final Physical Exam Const alert and oriented x3 Resp clear to auscultation bilaterally Cardio regular rate Extremity Extremity Narrative: Improved edema General Extremity: edema Skin Skin Narrative: Pretibial wound right lower extremity chronic follow-up with wound center Psych cooperative Assessment & Plan Assessment/Plan (1) ESRD (end stage renal disease) on dialysis: PLAN: dialysis proceeding without incident (2) Hyperglycemia: PLAN: resolved (3) Open wound of right lower extremity: QUALIFIERS: Encounter type: initial encounter Qualified Code(s): S81.801A - Unspecified open wound, right lower leg, initial encounter PLAN: follow up with wound center as outpt (4) Benign essential HTN: PLAN: stable (5) DM type 2 (diabetes mellitus, type 2): PLAN: primary service mgmt (6) Encephalopathy: PLAN: Likely due to hyperglycemia resolved
--- NOTE | 2021-05-22 13:09 | DS.PCM_ITS ---
Providers Date of Admission: 05/19/21 Primary Care Physician: Dr. Bailey Toribio MD Consultations 05/19/21 21:10 Consult: Nephrology Routine Consulting Provider: Christine Steward Reason for Consult: ESRD on HD EMERGENT Consult: No MD Notified: Yes Date Notified: 05/20/21 Time Notified: 06:50 Method of Notification: Text 05/22/21 07:00 Consult: Onc/Wound/freight associate Routine Comment: Reason For Visit: ENCEPHALOPATHY, UTI, CELLULITIS, ? CHF EXAC Diagnosis Discharge Diagnosis (1) ESRD (end stage renal disease) on dialysis: Status: Acute Code(s): N18.6 - End stage renal disease; Z99.2 - Dependence on renal dialysis (2) Hyperglycemia: Status: Acute Code(s): R73.9 - Hyperglycemia, unspecified (3) Open wound of right lower extremity: Status: Acute Code(s): S81.801A - Unspecified open wound, right lower leg, initial encounter Qualifiers: Encounter type: initial encounter Qualified Code(s): S81.801A - Unspecified open wound, right lower leg, initial encounter (4) Benign essential HTN: Status: Acute Code(s): I10 - Essential (primary) hypertension (5) DM type 2 (diabetes mellitus, type 2): Status: Acute Code(s): E11.9 - Type 2 diabetes mellitus without complications (6) Encephalopathy: Status: Acute Code(s): G93.40 - Encephalopathy, unspecified Medications at Discharge Home Medications atorvastatin 10 mg PO DAILY 09/06/19 ergocalciferol (vitamin D2) 50,000 unit PO KELLOGG 09/06/19 escitalopram oxalate 10 mg PO DAILY 05/05/20 Vimpat 100 mg PO BID 02/22/21 fluticasone propionate 2 spray INTRANASAL DAILY PRN 02/22/21 B complex-vitamin C-folic acid 1 tab PO DAILY 03/01/21 aspirin 81 mg PO DAILY 03/01/21 lisinopril 10 mg tablet 10 mg PO BID #180 tab 03/24/21 hydrocodone-acetaminophen 1 tab PO Q4H PRN PRN 2 Days #10 tablet 04/04/21 omeprazole magnesium 20 mg tablet,delayed release 20 mg PO DAILY #30 tab 04/16/21 gabapentin 200 mg PO BID 04/30/21 trazodone 25 mg PO QHS 04/30/21 hydroxyzine pamoate [Vistaril] 25 mg PO BID #14 cap 05/03/21 Lantus Solostar U-100 Insulin 10 unit SUBCUT BID #0 ml 05/22/21 cefdinir 300 mg PO BID #10 cap 05/22/21 doxycycline hyclate 100 mg PO BID #10 tab 05/22/21 Hospital Course Operations None Procedures Dialysis Summary of Care Provided Minutes Spent on Discharge: 45 Hospital Course: Patient is a 75-year-old female with an extensive past medical history as outlined who was admitted through the ED on 05/19/2021 with a complaint of fatigue, malaise and chills for several days prior to admission with worsening shortness of breath and cough and body aches. She had dialysis on the day before admission. She was found to be lethargic and fatigued and so she was brought into the ED. In the ED, urinalysis showed 3+ bacteria and chest x- ray showed patchy pericentral pulmonary opacities. Of note patient had been treated for Covid in January 2021. She was admitted and managed for acute metabolic encephalopathy due to hypoglycemia as well as UTI probable cellulitis. She was started on IV ceftriaxone as well as vancomycin for cellulitis. She was also managed for acute decompensated diastolic heart failure. Nephrology was consulted and patient had dialysis. Her mentation subsequently improved markedly and she did much better. Sputum culture was positive for MRSA and wound culture also grew MRSA. Blood cultures were still pending at time of discharge. Patient was discharged home on 05/22/2021 on p.o. doxycycline 100 mg twice daily for 7 days as well as PO cefdinir 300mg bid x 5 days. She is to follow up with her PCP and nephrology. Patient seen and examined prior to discharge. She had no active complaints and felt much better. Review of systems otherwise negative. Labs and vitals reviewed. Home medication reviewed and reconciled. Physical Exam Const alert, oriented x3 and no apparent distress General Appearance: cooperative and comfortable Orientation / Consciousness: lethargic Exam Limitations: no limitations Nutritional Appearance: obese HEENT normocephalic and head/scalp atraumatic Eyes PERRL, EOMs intact bilaterally and conjunctivae normal Neck no lymphadenopathy Resp Resp Narrative: diminished breath sounds bibasally, no wheezes or crackles. On room air Cardio regular rate, regular rhythm, S1 normal heart sound, S2 normal heart sound and no murmurs GI normal to inspection, nondistended, normoactive bowel sounds, soft to palpation, non-tender and non-distended Extremity normal to inspection and full ROM Skin Skin Narrative: dressing over right wolfe. no edema. Dialysis cahteter in upper chest Neuro oriented x3, CN's II-XII intact bilaterally and moves all extremities Sensorium / Orientation: awake and alert Psych affect normal Weight / BMI Weight Weight: 189 lb 2.506 oz Body Mass Index (BMI) 37.1 ABG / Lab / Microbiology Data Result Diagrams: 05/22/21 06:14 05/22/21 06:14 Laboratory: Laboratory Results - last 24 hr 05/21/21 16:47: POC Glucose 61 L 05/21/21 22:06: POC Glucose 119 H 05/22/21 03:26: POC Glucose 58 L 05/22/21 03:48: POC Glucose 76 05/22/21 06:14: WBC 5.9, RBC 2.60 L, Hgb 8.8 L, Hct 26.8 L, MCV 103.1 H, MCH 33.8 H, MCHC 32.8, RDW Std Deviation 54.2 H, RDW Coeff of Kusum 14.6, Plt Count 155, MPV 9.5, Immature Gran % (Auto) 0.500, Neut % (Auto) 68.3, Lymph % (Auto) 19.1, [place] % (Auto) 8.0, Eos % (Auto) 3.2, Baso % (Auto) 0.9, Absolute Neuts (auto) 4.0, Absolute Lymphs (auto) 1.12, Nucleated RBC % 0 05/22/21 06:14: Sodium 129 L, Potassium 4.3, Chloride 94 L, Carbon Dioxide 27.0, Anion Gap 8, BUN 35 H, Creatinine 3.29 H, Estim Creat Clear Calc 10.61, Est GFR (MDRD) Af Amer 18 L, Est GFR (MDRD) Non-Af 15 L, BUN/Creatinine Ratio 10.6, Glucose 89, Calcium 8.4 L 05/22/21 06:14: Random Vancomycin 16.0 H 05/22/21 06:38: POC Glucose 84 05/22/21 11:30: POC Glucose 148 H Microbiology: Microbiology 05/19/21 23:00 Wound - Leg, Right Gram Stain - Final 05/19/21 23:00 Wound - Leg, Right Wound Culture - Final Meth. resistant Staph. aureus 05/20/21 00:16 Sputum, Expectorated/Coughed Gram Stain - Final 05/20/21 00:16 Sputum, Expectorated/Coughed Respiratory Culture - Final Meth. resistant Staph. aureus 05/19/21 18:00 Urine, Catheterized Urine Culture - Final Enterococcus faecalis 05/20/21 23:14 Urine, Clean Catch Legionella Antigen - Final 05/20/21 23:14 Urine, Clean Catch Streptococcus pneumoniae Antigen (M - Final 05/19/21 20:00 Mucosa - Nasopharyngeal Respiratory Panel (PCR) - Final 05/19/21 17:55 Nasal Secretion SARS-CoV-2 Antigen (Rapid) - Final D/C Instructions Discharge Diet: Low fat / Low cholesterol Call your doctor if you observe: Fever of 101 or Higher, Shortness of breath, Swelling in the ankles and Increased palpitations (irregular heartbeat) Meaningful Use Info Meaningful Use Diagnoses (Choose all that apply): CHF CHF ABENA/ARB ordered at discharge?: Yes Documented LVEF (%): 55 Discharge Plan Admission Admit Date/Time: 05/19/21 20:58 Primary Reason for Your Visit: acute on chronic heart failure Attending Provider: Mary Shaw Primary Care Provider: Bailey Toribio Consulting Providers: Christine Steward Discharge Orders/Prescriptions Prescriptions: New doxycycline hyclate 100 mg tablet 100 mg PO BID Qty: 10 RF: 0 cefdinir 300 mg capsule 300 mg PO BID Qty: 10 RF: 0 Continued lisinopril 10 mg tablet 10 mg PO BID Qty: 180 RF: 3 atorvastatin 10 MG tablet 10 mg PO DAILY RF: 0 ergocalciferol (vitamin D2) 50,000 UNIT capsule 50,000 unit PO KELLOGG RF: 0 escitalopram oxalate 10 MG tablet 10 mg PO DAILY RF: 0 fluticasone propionate 50 mcg/actuation [place],Suspension 2 spray INTRANASAL DAILY PRN (Reason: allergies) RF: 0 Vimpat 100 mg tablet 100 mg PO BID RF: 0 aspirin 81 mg tablet,delayed release (DR/EC) 81 mg PO DAILY RF: 0 B complex-vitamin C-folic acid 1 mg Tablet 1 tab PO DAILY RF: 0 hydrocodone-acetaminophen 1 TABLET tablet 1 tab PO Q4H PRN PRN (Reason: Pain) 2 Days Qty: 10 RF: 0 trazodone 50 mg tablet 25 mg PO QHS RF: 0 gabapentin 100 mg capsule 200 mg PO BID RF: 0 hydroxyzine pamoate [Vistaril] 25 mg capsule 25 mg PO BID Qty: 14 RF: 0 omeprazole magnesium [Prilosec OTC] 20 mg tablet,delayed release (DR/EC) 20 mg PO DAILY Qty: 30 RF: 3 Changed Lantus Solostar U-100 Insulin 100 unit/mL (3 mL) insulin pen 10 unit subcut BID Qty: 0 RF: 0 Discontinued clindamycin HCl [Cleocin HCl] 300 MG capsule 300 mg PO Q6H Qty: 28 RF: 0 Referrals / Follow Up: Bailey Toribio MD [Primary Care Provider] - Within 2 Weeks Disposition Disposition (needs filled in before D/C Order can be placed): Home Health Servic e Charges/Coding Visit Charges Inpatient E&M: 88984 Disch Hosp
--- NOTE | 2021-05-22 13:47 | DIALYSIS ---
HD tx 3.5 hrs completed without complication, pt stable, tolerated tx well. Total UF removed 3200ml. Report given to ERICA Simno.
[2021-05-22] MEDS: Vancomycin IV 500 MG/100 ML BAG 100 MG IV (15:12)
== END 2021-05-22 17:24 | disposition home health service (06) | DRG 291 ==
LOC: ED 19:52 → PCU 21:11
PROVIDERS: Admitting Provider Family Medicine; Emergency Provider Emergency Medicine; PCP Internal Medicine; Visit Provider Student in an Organized Health Care Education/Training Program
DX: I13.2 Hypertensive heart and chronic kidney disease with heart failure and with stage 5 chronic kidney disease, or end stage renal disease (principal); I50.33 Acute on chronic diastolic (congestive) heart failure; N18.6 End stage renal disease; G93.41 Metabolic encephalopathy; E87.1 Hypo-osmolality and hyponatremia; N39.0 Urinary tract infection, site not specified; L03.115 Cellulitis of right lower limb; B95.2 Enterococcus as the cause of diseases classified elsewhere; I50.82 Biventricular heart failure; E11.22 Type 2 diabetes mellitus with diabetic chronic kidney disease; D63.8 Anemia in other chronic diseases classified elsewhere; J44.9 Chronic obstructive pulmonary disease, unspecified; E11.65 Type 2 diabetes mellitus with hyperglycemia; E11.649 Type 2 diabetes mellitus with hypoglycemia without coma; Z99.2 Dependence on renal dialysis; I27.21 Secondary pulmonary arterial hypertension; I48.0 Paroxysmal atrial fibrillation; G40.909 Epilepsy, unspecified, not intractable, without status epilepticus; Z20.822 Contact with and (suspected) exposure to COVID-19; S81.801A Unspecified open wound, right lower leg, initial encounter; E11.621 Type 2 diabetes mellitus with foot ulcer; L97.529 Non-pressure chronic ulcer of other part of left foot with unspecified severity; D50.9 Iron deficiency anemia, unspecified; E78.5 Hyperlipidemia, unspecified; E11.42 Type 2 diabetes mellitus with diabetic polyneuropathy; M06.9 Rheumatoid arthritis, unspecified; G25.81 Restless legs syndrome; G47.33 Obstructive sleep apnea (adult) (pediatric); K21.9 Gastro-esophageal reflux disease without esophagitis; E66.01 Morbid (severe) obesity due to excess calories; Z68.37 Body mass index [BMI] 37.0-37.9, adult; F44.81 Dissociative identity disorder; F33.41 Major depressive disorder, recurrent, in partial remission; F31.9 Bipolar disorder, unspecified; F41.1 Generalized anxiety disorder; Z79.4 Long term (current) use of insulin; Z79.82 Long term (current) use of aspirin; Z79.899 Other long term (current) drug therapy; Z86.16 Personal history of COVID-19; Z86.73 Personal history of transient ischemic attack (TIA), and cerebral infarction without residual deficits; Z86.14 Personal history of Methicillin resistant Staphylococcus aureus infection; Z87.891 Personal history of nicotine dependence
CPT/HCPCS: 36415; 71045; 80048; 80053; 80202; 81001; 82009; 82962; 83036; 83735; 83880; 84100; 84145; 84484; 85025; 87040; 87070; 87077; 87086; 87088; 87186; 87205; 87426; 87449; 87633; 87635; 87640; 90937; 93005; 97162; 97166; 97802; 99251; 99285; J7050; U0005; A4216; G0257; G0463; J1940; U0003

== ENCOUNTER 2021-06-21 07:02 | Day surgery (SDC) | payer MEDICARE, MEDICAID, SELFPAY ==
[2021-06-18 16:21] LABS: Hematocrit 32.5 % (37-47); Hemoglobin 10.2 g/dL (12.0-15.0); Mean Corp Hgb Conc 31.4 g/dL (32-36); Mean Corpuscular Hgb 34.2 pg (27.0-32.0); Mean Corpuscular Volume 109.1 fL (81-99); Mean Platelet Vol. 10.8 fl (6.2-12.0); POSITIVE COUNT YES; Platelet Count 88 K/mm3 (150-450); RBC Distribution Width CV 14.7 % (11.6-14.6); RBC Distribution Width SD 59.4 fl (35.1-43.9); Red Blood Count 2.98 M/mm3 (4.2-5.4); White Blood Count 5.2 K/mm3 (4.4-11.0)
[2021-06-18 16:45] LABS: Anion Gap 5 (5-15); BUN 28 mg/dL (7-18); Calcium,Total 9.4 mg/dL (8.5-10.1); Chloride 98 mmol/L (98-107); Creatinine, Serum 3.51 mg/dL (0.55-1.02); EST Glomerular Filtration Rate 14 mL/min (>60); Est Glom Filt Rate - Afr Amer 16 mL/min (>60); Glucose 155 mg/dL (74-106); Potassium 4.6 mmol/L (3.5-5.1); Sodium Level 135 mmol/L (136-145)
[2021-06-18 17:29] LABS: Scan Indicated on CBC? Y/N YES- FLAGS NOTED
[2021-06-21] VITALS (10 sets, daily range): BP systolic 87–132; BP diastolic 38–62; PULSE 61–63; RESP 16; TEMP 35.8–36.3; O2SAT 93–100; BMI 36.1
[2021-06-21] MEDS: 0.9% Normal Saline 1,000 ML 15 ML IV (07:46)
[2021-06-21 08:15] LABS: Bedside Glucose 101 mg/dL (70-110)
[2021-06-21 08:15] LABS: Bedside Glucose 90 mg/dL (70-110)
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
--- NOTE | 2021-06-21 08:59 | EX.PCM.DISCH ---
Discharge Instructions Procedure Fistula Diet Discharge Diet: Renal Diet Activity Discharge Activity: May Not Drive (for 2-3 days or while taking narcotic pain medications.), May Shower and May Take a Tub Bath (in 5 days.) Lifting Restrictions: 5 pounds Keep extremity elevated above heart level: - (Keep arm elevated above the heart level for 3 days.) Dressing / Incision Call your doctor if your incision/area has: Continuous Slow Oozing, Sudden Increased Bleeding (apply pressure and call your doctor.), Increased Pain/ Swelling, Increased Redness and Foul Smelling Discharge Call your doctor if you observe: Fever of 101 or Higher Suture Line Care: Avoid Pulling/Pushing and Avoid Pinching/Bending Cleanse incision/area with: Keep Dressing Clean & Dry Additional Dressing/Incision Instructions:: Change or remove dressing in one day. May protect with a gauze bandaid. Follow Up Care Please Follow Up With: Dinesh Polanco MD When: Call [phone] to make an appointment for suture removal and follow up in 1 week. Test Results: Test results from this visit will be discussed in further detail at your follow-up appointment, if applicable. Discharge Plan Admission Attending Provider: Dinesh Polanco Primary Care Provider: Bailey Toribio Discharge Orders/Prescriptions Prescriptions: No Action atorvastatin 10 MG tablet 10 mg PO DAILY RF: 0 ergocalciferol (vitamin D2) 50,000 UNIT capsule 50,000 unit PO KELLOGG RF: 0 fluticasone propionate 50 mcg/actuation [place],Suspension 2 spray INTRANASAL DAILY PRN (Reason: allergies) RF: 0 Vimpat 100 mg tablet 100 mg PO BID RF: 0 aspirin 81 mg tablet,delayed release (DR/EC) 81 mg PO DAILY RF: 0 B complex-vitamin C-folic acid 1 mg Tablet 1 tab PO DAILY RF: 0 trazodone 50 mg tablet 25 mg PO QHS RF: 0 gabapentin 100 mg capsule 200 mg PO BID RF: 0 hydroxyzine pamoate [Vistaril] 25 mg capsule 25 mg PO BID Qty: 14 RF: 0 calcium acetate(phosphat bind) [PhosLo] 667 mg Capsule 667 mg PO TID RF: 0 carvedilol [Coreg] 12.5 mg Tablet 12.5 mg PO BID RF: 0 latanoprost 0.005 % Drops 1 drp EACH EYE QPM RF: 0 insulin aspart U-100 [Novolog Flexpen U-100 Insulin] 100 unit/mL (3 mL) Insulin Pen 3 unit SUBCUT TID RF: 0 lisinopril 10 mg tablet 10 mg PO DAILY RF: 0 Lantus Solostar U-100 Insulin 100 unit/mL (3 mL) insulin pen 20 unit subcut BID RF: 0 omeprazole 20 mg Capsule,Delayed Release(Dr/Ec) 20 mg PO DAILY RF: 0
[2021-06-21] MEDS: Heparin Injection (Vial) 5,000 UNIT/ML VIAL 5000 UNIT (09:34)
[2021-06-21] MEDS: Bupivacaine Mpf 0.5% 30 ML VIAL (09:54)
[2021-06-21] MEDS: Lidocaine 1% (30 ml sdv) 30 ML Vial (09:54)
--- NOTE | 2021-06-21 10:46 | PCM.OPRPT ---
Problems Associated Problem List Diagnoses (1) Chronic kidney disease, stage V: Report of Operation Date of Procedure: 06/21/21 Pre-Operative Diagnosis: Stage V chronic kidney disease on hemodialysis Post-Operative Diagnosis: Same Surgery/Procedure Performed:: Left upper extremity basilic vein to brachial artery arteriovenous hemodialysis fistula creation stage I Description of Surgical Findings:: Timeout informed consent was obtained. 75-year-old female was taken to the operating place upon the table ultrasound was used to map the course of the left antecubital basilic vein. Patient underwent general anesthesia. Clean procedure no antibiotic required. The left extremity sterilely prepped and draped. 1% lidocaine mixed 50-50 with 0.5% Marcaine was used as a local anesthetic. A total of 10 cc was used. Local was instilled. An oblique incision is made in the left antecubital space sharp and blunt dissection was used to identify the basilic vein it was dissected free and sidebranches secured with 4-0 Vicryl ligatures and hemoclips. At a branch point the vein was selected. Then sharp blunt dissection used to identify the brachial artery and circumferential control was obtained. The patient received 7000 Ancef heparin. The vein branch distally was ligated with 2 hemoclips and then transected and then spatulated with Mcmanus scissors to make 1 solitary opening. Peripheral vascular clamps were placed on the brachial artery and 11 blade was used to make an arteriotomy which was extended with Mcmanus scissors. A end-to-side venous to arterial anastomosis was created with running 7-0 Prolene. A single repair suture of 7-0 Prolene was required. Incidentally there was excellent flow. There was still a 2+ left radial pulse. Doppler signal demonstrated in-stent good flow within the fistula. The subcutaneous tissues were approximated running 3-0 Vicryl. Skin edges proximal and running subicular 4 Monocryl. Skin prep Steri-Strips Telfa tape dressings applied. Sponge and instrument and needle counts were reported to the surgeon to be correct. Specimens none. Drains none. Blood loss minimal. The patient was taken to the recovery area in satisfactory addition without apparent complication. Hand was viable at the completion. Dinesh Polanco M.D., F.A.C.S. Surgeon: Dinesh Polanco Type of Anesthesia: General and Local Anesthesiologist: Michi Snow
[2021-06-21 11:11] LABS: Bedside Glucose 89 mg/dL (70-110)
--- NOTE | 2021-06-21 14:09 | SUR.PHASEII ---
bandage changed and bruit heard with problems with wound
== END 2021-06-21 14:13 ==
LOC: SDC 07:04 → AC 07:05
PROVIDERS: PCP Internal Medicine; Visit Provider Surgery
DX: I13.2 Hypertensive heart and chronic kidney disease with heart failure and with stage 5 chronic kidney disease, or end stage renal disease (principal); N18.6 End stage renal disease; I50.32 Chronic diastolic (congestive) heart failure; E11.22 Type 2 diabetes mellitus with diabetic chronic kidney disease; Z99.2 Dependence on renal dialysis; G40.909 Epilepsy, unspecified, not intractable, without status epilepticus; I27.21 Secondary pulmonary arterial hypertension; D63.8 Anemia in other chronic diseases classified elsewhere; E11.42 Type 2 diabetes mellitus with diabetic polyneuropathy; E11.65 Type 2 diabetes mellitus with hyperglycemia; E78.5 Hyperlipidemia, unspecified; M06.9 Rheumatoid arthritis, unspecified; G47.33 Obstructive sleep apnea (adult) (pediatric); F32.A Depression, unspecified; F41.1 Generalized anxiety disorder; Z79.4 Long term (current) use of insulin; Z79.82 Long term (current) use of aspirin; Z79.899 Other long term (current) drug therapy; Z86.73 Personal history of transient ischemic attack (TIA), and cerebral infarction without residual deficits; Z87.891 Personal history of nicotine dependence
CPT/HCPCS: 36821; 36415; 80048; 82962; 85027; J7030; J2405

== ENCOUNTER 2021-07-10 02:19 | Inpatient (IN) | payer MEDICARE, MEDICAID, SELFPAY ==
[2021-07-10] VITALS (49 sets, daily range): BP systolic 76–146; BP diastolic 26–113; PULSE 38–69; RESP 10–24; TEMP 34.3–36.6; O2SAT 93–100; BMI 37.0; BMI 40.8
--- NOTE | 2021-07-10 03:03 | EKG12_ITS ---
Test Reason : DYSRHYTHMIA Blood Pressure : / mmHG Vent. Rate : 044 BPM Atrial Rate : 043 BPM P-R Int : 000 ms QRS Dur : 082 ms QT Int : 472 ms P-R-T Axes : 000 127 021 degrees QTc Int : 403 ms Marked Sinus vs Ectopic Atrial Bradycardia Low voltage QRS Left posterior fascicular block Incomplete right bundle branch block Abnormal ECG Confirmed by ANGELA BOWMAN, SANTHOSH ([id number]), editor map RADHA TAPIA ([id number]) on 07/14/2021 11:09:29 AM Referred By: THEO Confirmed By:SANTHOSH MILLER MD
--- NOTE | 2021-07-10 03:03 | CT_ITS ---
STUDY: CT ABDOMEN AND PELVIS WITHOUT CONTRAST REASON FOR EXAM: Female, 75 years old. diarrhea RADIATION DOSAGE (If Supplied By Facility): CTDIvol = ( 21.57 ) mGy, DLP = ( 1072.21 ) mGycm TECHNIQUE: Transaxial images were obtained from the dome of the diaphragm to the symphysis pubis without oral contrast, and without intravenous contrast. Sagittal and coronal images were reconstructed. Individualized dose optimization techniques were used for this CT. COMPARISON: None. FINDINGS: Right lower lobe airspace disease and small effusion. Left lung base is clear. The visualized portions of the heart are within normal limits. Normal liver. There are surgical clips in the gallbladder fossa consistent with a prior cholecystectomy. There is a benign calcified granuloma of the spleen. Normal pancreas. Normal bilateral adrenal glands. Normal right kidney. Normal left kidney. Normal visualized stomach. Normal small intestine. There are multiple colonic diverticula consistent with diverticulosis. There is non-visualization of the appendix. There is diffuse atherosclerotic calcification of the abdominal aorta, without a demonstrated aneurysm. Normal inferior vena cava. Normal retroperitoneum. Under distended urinary bladder with circumferential wall thickening suggesting cystitis. Status post hysterectomy. Diffuse anasarca. Normal osseous structures. CT/Abdomen/Pelvis without Cont IMPRESSION: 1. No evidence of colitis or diverticulitis. Unremarkable small and large bowel. 2. Bladder findings suggesting cystitis. Status post hysterectomy 3. Mild diffuse anasarca 4. Small right effusion with right lower lobe airspace disease Electronically Signed: Adonis Orlando DO at 4:20 EST Tel , Service support ,
--- NOTE | 2021-07-10 03:03 | RAD_ITS ---
STUDY: X-RAY - RIGHT FOOT CLINICAL: Female, 75 years old. pain TECHNIQUE: 2 view(s) of the foot. COMPARISON: None. FINDINGS: No acute fracture or dislocation. Mild diffuse demineralization. Mild age-related degenerative changes. Vascular calcifications. Remainder is unremarkable. RAD/Foot 2 Views IMPRESSION: No acute finding Electronically Signed: Adonis Orlando DO at 4:21 EST Tel , Service support ,
[2021-07-10 03:11] LABS: Bedside Glucose 82 mg/dL (70-110)
[2021-07-10 03:16] LABS: Absolute Lymphocyte Count 0.79 X10^3/uL (0.83-4.51); Absolute Neutrophil Count 3.7 X10^3/uL (2.0-7.7); Basophil# 0.02 X10^3/uL; Basophil% 0.4 % (0-1); Hematocrit 34.1 % (37-47); Hemoglobin 10.8 g/dL (12.0-15.0); Lymphocyte # 0.79 X10^3/ul (0.83-4.51); Lymphocyte % 15.7 % (19-41); Mean Corp Hgb Conc 31.7 g/dL (32-36); Mean Corpuscular Hgb 33.8 pg (27.0-32.0); Mean Corpuscular Volume 106.6 fL (81-99); Monocyte# 0.43 X10^3/uL; Monocyte% 8.5 % (0-10); NRBC Flagged by Analyzer 0 % (0-5); Neutrophil # 3.68 X10^3/uL (2.7-7.7); POSITIVE COUNT YES; Platelet Count 95 K/mm3 (150-450); RBC Distribution Width CV 15.8 % (11.6-14.6); RBC Distribution Width SD 59.9 fl (35.1-43.9)
--- NOTE | 2021-07-10 03:30 | ED.RN ---
PT'S MENTATION VARIES FROM NON-RESPONSIVE FROM YELLING AND C/O PAIN AND THEN RAPIDLY RETURNS TO NON-RESPONSIVE. MD العلي
[2021-07-10] MEDS: Calcium Chloride 1 GM/10 ML Syringe IV (03:31)
[2021-07-10 03:36] LABS: Allen Test Positive; Base Excess -1 mmol/L (-2 to +2); Bicarbonate 24.2 mmol/L (22-26); Blood Gas Specimen Type ART; O2 Delivery Device Room Air; PO2 81 mmHG (75-100); SITE L Radial; SO2 96 % (95-99); Total Carbon Dioxide 26 mmol/L; pCO2 42.1 mmHg (35-45); pH 7.37 (7.35-7.45)
[2021-07-10 03:44] LABS: International Normalized Ratio 1.2; Prothrombin Time (Protime)PT. 14.6 SECONDS (11.7-14.9)
[2021-07-10 03:45] LABS: Partial Thromboplast Time 37.2 Seconds (24.1-36.2)
[2021-07-10 03:51] LABS: Lactic Acid 1.6 mmol/L (0.4-1.9)
--- NOTE | 2021-07-10 04:00 | RAD_ITS ---
STUDY: X-RAY CHEST REASON FOR EXAM: Female, 75 years old. cough TECHNIQUE: Single AP portable view of the chest. COMPARISON: None. FINDINGS: Right subclavian dual-lumen central venous catheter with tip in SVC. Right lower lobe effusion. Mildly elevated right hemidiaphragm. Lungs are otherwise clear. There is borderline cardiomegaly. Normal mediastinum and elva. Normal visualized pulmonary arteries. Normal visualized aortic arch and descending thoracic aorta. Normal visualized thoracic spine. Normal visualized ribs, clavicles, and shoulders. There is no demonstrated abnormality of the visualized soft tissue structures of the upper abdomen. RAD/Chest 1 View (Portable) IMPRESSION: Right lower lobe effusion with mildly elevated right hemidiaphragm. Electronically Signed: Adonis Orlando DO at 4:21 EST Tel , Service support ,
[2021-07-10 04:20] LABS: AST(SGOT) 50 U/L (15-37); Alanine Aminotransfer ALT/SGPT 45 U/L (13-56); Albumin, Serum 2.8 g/dL (3.2-5.0); Alkaline Phosphatase 103 U/L (45-117); Bilirubin, Direct 0.27 mg/dL (0.00-0.30); Globulin 4.6 g/dL (2.2-4.2); Protein, Total 7.4 g/dL (6.4-8.2)
[2021-07-10 04:24] LABS: Anion Gap 10 (5-15); BUN 48 mg/dL (7-18); BUN/Creat Ratio 8.3 RATIO (10-20); Calcium,Total 8.6 mg/dL (8.5-10.1); Chloride 93 mmol/L (98-107); Creatinine, Serum 5.75 mg/dL (0.55-1.02); EST Glomerular Filtration Rate 8 mL/min (>60); Est Glom Filt Rate - Afr Amer 9 mL/min (>60); Estimated Creatinine Clearance 6.07 ml/min; Glucose 86 mg/dL (74-106); Magnesium 2.4 mg/dL (1.6-2.6); Phosphorus 5.6 mg/dL (2.5-4.9); Potassium 7.6 mmol/L (3.5-5.1); Sodium Level 127 mmol/L (136-145); Thyroid Stim Hormone (TSH) 0.96 uIU/mL (0.358-3.74)
--- NOTE | 2021-07-10 04:29 | EKG12_ITS ---
Test Reason : DYSRHYTHMIA Blood Pressure : / mmHG Vent. Rate : 044 BPM Atrial Rate : 044 BPM P-R Int : 230 ms QRS Dur : 114 ms QT Int : 468 ms P-R-T Axes : 031 127 034 degrees QTc Int : 400 ms Marked sinus bradycardia with 1st degree A-V block Low voltage QRS Consider LPFB Incomplete right bundle branch block Abnormal ECG Confirmed by ANGELA BOWMAN, SANTHOSH ([id number]), clinical editor RADHA TAPIA ([id number]) on 07/14/2021 11:10:13 AM Referred By: THEO Confirmed By:SANTHOSH MILLER MD
[2021-07-10] MEDS: Insulin Lispro 10 UNIT in Syringe 0 ML 6 UNIT IV (05:00)
[2021-07-10] MEDS: Dextrose 50%-Water 25 GM/50 ML DISP.SYRIN IV ×2 (05:00→07:55)
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
--- NOTE | 2021-07-10 06:45 | RAD_ITS ---
STUDY: X-RAY CHEST REASON FOR EXAM: Female, 75 years old. central line placement TECHNIQUE: Single AP portable view of the chest. COMPARISON: 07/10/2021 at 03 56 FINDINGS: Tunneled right internal jugular dialysis catheter which is unchanged. Poor inspiration with some bibasilar atelectasis. There is no demonstrated pleural abnormality. There is moderate cardiac enlargement. Normal mediastinum and elva. Normal visualized pulmonary arteries. Normal visualized aortic arch and descending thoracic aorta. Normal visualized thoracic spine. Normal visualized ribs, clavicles, and shoulders. There is no demonstrated abnormality of the visualized soft tissue structures of the upper abdomen. RAD/Chest 1 View (Portable) IMPRESSION: Poor inspiration with some bibasilar atelectasis. Electronically Signed: Colton Lee MD at 7:00 EST Tel , Service support ,
[2021-07-10] MEDS: metroNIDAZOLE 500 MG/100 ML BAG 100 MG IV ×3 (06:53→23:05)
--- NOTE | 2021-07-10 07:52 | ED.RN ---
[id number] ORDER GIVEN BY DR Tosin BAZAN FOR 25GM OF D50 AFTER BGT. 0703 D50 PUSHED BY Jens BROWN RN BGT 147 UPON RECHECK.
[2021-07-10 07:56] LABS: Bedside Glucose 67 mg/dL (70-110)
[2021-07-10] MEDS: Atropine Sulfate 1 MG/10 ML Syringe IV (08:00)
[2021-07-10 08:15] LABS: Procalcitonin 0.31 ng/mL (0.00-0.09)
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
[2021-07-10 08:55] LABS: Bedside Glucose 111 mg/dL (70-110)
[2021-07-10 09:08] LABS: Potassium 5.7 mmol/L (3.5-5.1)
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
--- NOTE | 2021-07-10 10:38 | CASEMGMT ---
Addendum entered by Lisa Sierra 07/10/21 14:54: ERICA TREVIÑO in to pt room. Pt finished with dialysis. Unable to complete assessment. Pt lying with eyes closed. Original Note: ERICA TREVIÑO in to pt room for assessment. Pt is currently receiving dialysis and unable to waken her. Dialysis nurse states this is how she has been today. ERICA TREVIÑO to complete assessment at a later time.
[2021-07-10 11:41] LABS: Bedside Glucose 88 mg/dL (70-110)
[2021-07-10] MEDS: Epoetin Alfa epbx 10,000 UNITS/ML 5000 UNIT IV (13:34)
[2021-07-10 14:01] LABS: Bedside Glucose 73 mg/dL (70-110)
[2021-07-10 14:15] LABS: Anion Gap 8 (5-15); BUN 22 mg/dL (7-18); BUN/Creat Ratio 7.1 RATIO (10-20); Calcium,Total 8.5 mg/dL (8.5-10.1); Chloride 99 mmol/L (98-107); Creatinine, Serum 3.12 mg/dL (0.55-1.02); EST Glomerular Filtration Rate 15 mL/min (>60); Est Glom Filt Rate - Afr Amer 19 mL/min (>60); Estimated Creatinine Clearance 23.24 ml/min; Glucose 94 mg/dL (74-106); Potassium 4.5 mmol/L (3.5-5.1); Sodium Level 135 mmol/L (136-145)
[2021-07-10] MEDS: Heparin Injection (Vial) 5,000 UNIT/ML VIAL 5000 UNIT SC ×2 (14:29→22:00)
[2021-07-10 14:35] LABS: Bedside Glucose 26 mg/dL (70-110)
[2021-07-10 14:35] LABS: Bedside Glucose 147 mg/dL (70-110)
[2021-07-10 15:56] LABS: Bedside Glucose 67 mg/dL (70-110)
[2021-07-10 17:01] LABS: Bedside Glucose 74 mg/dL (70-110)
[2021-07-10] MEDS: oxyCODONE 5 MG Tablet PO (17:29)
--- NOTE | 2021-07-10 18:12 | PCM.RX.CS ---
Consult Pharmacy has been consulted to manage selected antiobiotic: Vancomycin Type of Consult: New start Suspected Infection: Sepsis Labs: Sodium 135 mmol/L (136-145) L 07/10/21 13:45 Potassium 4.5 mmol/L (3.5-5.1) 07/10/21 13:45 Chloride 99 mmol/L (98-107) 07/10/21 13:45 Carbon Dioxide 28.0 mmol/L (21.0-32.0) 07/10/21 13:45 Anion Gap 8 (5-15) 07/10/21 13:45 BUN 22 mg/dL (7-18) H 07/10/21 13:45 Creatinine 3.12 mg/dL (0.55-1.02) H 07/10/21 13:45 Est GFR (MDRD) Af Amer 19 mL/min (>60) L 07/10/21 13:45 Est GFR (MDRD) Non-Af 15 mL/min (>60) L 07/10/21 13:45 BUN/Creatinine Ratio 7.1 RATIO (10-20) L 07/10/21 13:45 Glucose 94 mg/dL (74-106) 07/10/21 13:45 Microbiology: Microbiology 07/10/21 07:20 Urine Catheter - Catheter Legionella Antigen - Final 07/10/21 07:20 Urine Catheter - Catheter Streptococcus pneumoniae Antigen (M - Final 07/10/21 03:25 Nasal Secretion SARS-CoV-2 Antigen (Rapid) - Final Pharmacy Plan for Drug Dosing: NEW START IV VANCOMYCIN Consulting Physician: Lala CHASE Indication: SEPSIS Goal Trough: 15-20 MG/DL SrCr: 3.12 MG/DL - HEMODIALYSIS CrCl: 23 ML/MIN - HEMODIALYSIS Comments: INITIAL X1 STANDARD DOSE ENTERED THIS AM (BASED ON WEIGHT OF 86KG) WAS HUNG DURING HD FOR ABOUT 30 MINS. CALLED AND SPOKE TO NURSE TO ASK TO IT SHUT OFF. SENT A NEW 1250MG BAG TO BE GIVEN AFTER HD COMPLETED (GIVEN AT 1729). SPOKE TO NURSE AGAIN AT 1740 AND HE DOES NOT KNOW IF PT WILL RESUME REGULAR HD SCHEDULE OF // OR IF SHE WILL BE DIALYZED AGAIN TOMORROW. HE WAS UNABLE TO ASK HD NURSE BEFORE SHE LEFT. Vancomycin Dose: ONCE NEXT HD SESSION IS CONFIRMED, PATIENT WILL NEED A 750MG DOSE X1 AFTER NEXT HD SESSION (BASED ON NEW WEIGHT OF 94.5 KG), THEN A PRE-HD LEVEL DRAWN BEFORE 3RD HD SESSION PER POLICY. Pending Level: CHECK TO SEE HD SCHEDULE - NO LEVEL ORDERED Pharmacy Service will continue to monitor and adjust dosing as required.
[2021-07-10 18:23] LABS: M R Staph aureus DNA By PCR POSITIVE (Negative); Probe Check PASS
[2021-07-10 18:51] LABS: Bedside Glucose 141 mg/dL (70-110)
[2021-07-10 21:11] LABS: Bedside Glucose 217 mg/dL (70-110)
[2021-07-10] MEDS: Nystatin Powder 15gm Bottle 1 APPLIC TOPICAL (22:13)
[2021-07-11] VITALS (40 sets, daily range): BP systolic 97–185; BP diastolic 29–73; PULSE 54–72; RESP 13–21; TEMP 36.6–36.8; O2SAT 91–99
[2021-07-11 04:34] LABS: Absolute Lymphocyte Count 1.11 X10^3/uL (0.83-4.51); Basophil# 0.07 X10^3/uL; Basophil% 0.8 % (0-1); Eosinophil# 0.08 X10^3/uL; Eosinophils% 0.9 % (0-5); Hematocrit 33.2 % (37-47); Hemoglobin 10.4 g/dL (12.0-15.0); Lymphocyte # 1.11 X10^3/ul (0.83-4.51); Lymphocyte % 12.2 % (19-41); Mean Corp Hgb Conc 31.3 g/dL (32-36); Mean Corpuscular Hgb 34.1 pg (27.0-32.0); Mean Corpuscular Volume 108.9 fL (81-99); Mean Platelet Vol. 11.1 fl (6.2-12.0); Monocyte# 0.78 X10^3/uL; Monocyte% 8.6 % (0-10); NRBC Flagged by Analyzer 0 % (0-5); Neutrophil # 6.99 X10^3/uL (2.7-7.7); Neutrophil % 77.1 % (47-70); Platelet Count 102 K/mm3 (150-450); RBC Distribution Width CV 15.9 % (11.6-14.6); RBC Distribution Width SD 61.3 fl (35.1-43.9); Red Blood Count 3.05 M/mm3 (4.2-5.4); White Blood Count 9.1 K/mm3 (4.4-11.0)
[2021-07-11] MEDS: metroNIDAZOLE 500 MG/100 ML BAG 100 MG IV ×3 (05:25→21:26)
--- NOTE | 2021-07-11 06:11 | NURSING ---
0100: levo drip reprogrammed on IVAC to reflect 8mg/250 concentration. verified with RAY RN
--- NOTE | 2021-07-11 06:48 | PN.CC_ITS ---
Assessment & Plan Assessment/Plan (1) Shock: (2) Acute hyperkalemia: (3) Encephalopathy acute: (4) Chronic kidney disease, stage V: (5) Diabetes type 2, uncontrolled: QUALIFIERS: Diabetes mellitus complication status: with unspecified complications Coma presence: unspecified whether coma present PLAN: RECOMMENDATIONS: 1. Hemodialysis per nephrology 2. Wean pressors to maintain a MAP greater than 65 3. Initiate midodrine therapy 4. Continue to monitor blood sugars closely 5. Continue empiric antibiotics pending culture results 6. Possible transfer later today if able to come off of insulin drip with midodrine 7. Will sign off if able to leave the intensive care unit later today from a critical care perspective IMPRESSIONS: 1. Probable septic shock Unclear etiology. Patient does have a lower extremity wound. Dialysis access appears to be clean, dry and intact. Patient is at high risk for multidrug-resistant organisms. Agree with empiric antibiotics pending blood cultures. Cultures show no growth to date. Wean pressors as tolerated. 2. Acute hepatic encephalopathy/seizure disorder Unclear etiology. Patient is on Vimpat at baseline that may be leading to elevated ammonia. Will defer to primary service of lactulose could be a chronic option to avoid hyperammonemia in the future. No concern for airway protection at this time. 3. Hyperkalemia secondary to missed dialysis on ESRD Patient to received urgent hemodialysis. Unclear if diarrhea is a true indication of underlying process or, just leading to delay of presentation for dialysis. Patient does have a significant decrease in all blood cell lines that may be secondary to problem #1. Patient does have a petechial rash on bilateral feet and it is unclear of the chronicity. Patient does not appear to have a calcium product high enough for calcinosis, but this would be a consideration. 4. Hypoglycemia with diabetes mellitus Patient hypoglycemic on presentation. This is likely secondary to baseline Lantus with decreased p.o. intake. We will continue to check blood sugars and supplement sugars as tolerated. Patient should likely be able to reinitiate p.o. diet today and go back to baseline regimen. 5. Chronic diastolic CHF/bradycardia Unclear etiology at this time. Patient does not acutely appear to be in CHF, but does have bradycardia. Patient does not have significant changes in EKG to suggest hyperkalemia as a sole etiology. Patient may have some retained medication secondary to lack of dialysis. No intervention has been required likely not necessary to obtain an echocardiogram or cardiology consult at this time 6. Chronic leg ulcer/repeated hospitalizations/multiple allergies/anemia of chronic disease/pancytopenia Complicates care, management, recovery and prognosis. Unable to confirm CODE STATUS at this time. Patient does have multiple allergies making antibiotic selection difficult. TIME: 31 minutes critical care time spent addressing patient's shock, encephalopathy, hyperkalemia, review of all data and collaboration with care team Subjective Subjective Patient did well overnight. Patient remains on Levophed, but requirements are much improved. Patient is mentating at baseline at this time. No complaints of pain. Patient did tolerate hemodialysis yesterday without complication Objective Data Objective Data Vital Signs: Vital Signs Temp Pulse Resp BP Pulse Ox 36.7 C 66 16 126/47 H 91 07/11/21 04:30 07/11/21 06:00 07/11/21 05:34 07/11/21 05:30 07/11/21 05:34 Oxygen Flow Rate (L/min) 1 Oxygen Delivery Method Room Air Weight: 97 kg Body Mass Index (BMI) 40.8 Intake & Output: Intake and Output for Last 24 Hours 07/09/21 07/10/21 07/11/21 23:59 23:59 23:59 Intake Total 1947.72 / 2075.82 695.75 / 695.75 Output Total 0 / 0 60 / 60 Balance 1947.72 / 2075.82 635.75 / 635.75 Lab / Micro Data Result Diagrams: 07/11/21 04:15 07/10/21 13:45 Labs: Laboratory Results - last 24 hr 07/10/21 06:43: Procalcitonin 0.31 H 07/10/21 06:43: Lactic Acid 1.0 07/10/21 06:58: POC Glucose 26 L* 07/10/21 07:12: POC Glucose 147 H 07/10/21 07:48: POC Glucose 67 L 07/10/21 08:25: POC Glucose 111 H 07/10/21 08:40: Potassium 5.7 H 07/10/21 11:34: POC Glucose 88 07/10/21 13:45: Sodium 135 L, Potassium 4.5, Chloride 99, Carbon Dioxide 28.0, Anion Gap 8, BUN 22 H, Creatinine 3.12 H, Estim Creat Clear Calc 23.24, Est GFR (MDRD) Af Amer 19 L, Est GFR (MDRD) Non-Af 15 L, BUN/Creatinine Ratio 7.1 L, Glucose 94, Calcium 8.5 07/10/21 13:57: POC Glucose 73 07/10/21 15:52: POC Glucose 67 L 07/10/21 16:15: MRSA (PCR) POSITIVE H 07/10/21 16:56: POC Glucose 74 07/10/21 18:43: POC Glucose 141 H 07/10/21 20:48: POC Glucose 217 H 07/11/21 04:15: WBC 9.1, RBC 3.05 L, Hgb 10.4 L, Hct 33.2 L, MCV 108.9 H, MCH 34.1 H, MCHC 31.3 L, RDW Std Deviation 61.3 H, RDW Coeff of Kusum 15.9 H, Plt Count 102 L, MPV 11.1, Immature Gran % (Auto) 0.400, Neut % (Auto) 77.1 H, Lymph % (Auto) 12.2 L, [place] % (Auto) 8.6, Eos % (Auto) 0.9, Baso % (Auto) 0.8, Absolute Neuts (auto) 7.0, Absolute Lymphs (auto) 1.11, Nucleated RBC % 0 07/11/21 04:15: Ammonia 21.0 Micro: Microbiology 07/10/21 07:20 Urine Catheter - Catheter Legionella Antigen - Final 07/10/21 07:20 Urine Catheter - Catheter Streptococcus pneumoniae Antigen (M - Final 07/10/21 03:25 Nasal Secretion SARS-CoV-2 Antigen (Rapid) - Final Radiography Diagnostic Testing: Radiology Impression Chest X-Ray 07/10/21 06:45 IMPRESSION: Poor inspiration with some bibasilar atelectasis. Electronically Signed: Colton Lee MD at 7:00 EST Tel , Service support , Physical Exam Const alert, oriented x3 and no apparent distress General Appearance: cooperative, comfortable and appears older than stated age Exam Limitations: no limitations Nutritional Appearance: obese HEENT normocephalic and head/scalp atraumatic HEENT Narrative: No conversational dyspnea Eyes PERRL, EOMs intact bilaterally and conjunctivae normal Neck no lymphadenopathy Chest Chest Narrative: Tunneled hemodialysis line in the right chest. Clean, dry and intact Resp Resp Narrative: Fair effort Auscultation: diminished lung sounds; Negative for rales, rhonchi or wheezes Cardio regular rate, regular rhythm, S1 normal heart sound, S2 normal heart sound and no murmurs GI normal to inspection, nondistended, normoactive bowel sounds, soft to palpation, non-tender and non-distended Extremity normal to inspection and full ROM Skin Skin Narrative: dressing over right wolfe. no edema. Petechial rash with erythem a bilateral lower extremities improved today Neuro oriented x3, CN's II-XII intact bilaterally and moves all extremities Sensorium / Orientation: awake and alert Psych affect normal Charges/Coding Procedures Hospitalists Procedures: 27907 Critial Care 1st Hr
[2021-07-11] MEDS: Midodrine HCl 5 MG Tablet 10 MG PO ×3 (08:15→16:26)
[2021-07-11 08:36] LABS: Bedside Glucose 207 mg/dL (70-110)
[2021-07-11 08:54] LABS: ALB/GLOB Ratio 0.6 RATIO (0.9-2.4); AST(SGOT) 22 U/L (15-37); Alanine Aminotransfer ALT/SGPT 31 U/L (13-56); Albumin, Serum 2.5 g/dL (3.2-5.0); Alkaline Phosphatase 93 U/L (45-117); Anion Gap 10 (5-15); BUN 33 mg/dL (7-18); BUN/Creat Ratio 7.5 RATIO (10-20); Calcium,Total 8.7 mg/dL (8.5-10.1); Chloride 95 mmol/L (98-107); Creatinine, Serum 4.41 mg/dL (0.55-1.02); EST Glomerular Filtration Rate 10 mL/min (>60); Est Glom Filt Rate - Afr Amer 13 mL/min (>60); Estimated Creatinine Clearance 16.88 ml/min; Globulin 3.9 g/dL (2.2-4.2); Glucose 214 mg/dL (74-106); Potassium 5.2 mmol/L (3.5-5.1); Protein, Total 6.4 g/dL (6.4-8.2); Sodium Level 131 mmol/L (136-145)
[2021-07-11] MEDS: Heparin Injection (Vial) 5,000 UNIT/ML VIAL 5000 UNIT SC ×2 (10:41→21:31)
[2021-07-11] MEDS: Nystatin Powder 15gm Bottle 1 APPLIC TOPICAL ×2 (10:46→21:36)
[2021-07-11 12:31] LABS: Bedside Glucose 316 mg/dL (70-110)
[2021-07-11] MEDS: Insulin Lispro 100 UNIT/ML INSULN.PEN SC ×3 (14:18→21:35)
[2021-07-11 16:35] LABS: Bedside Glucose 271 mg/dL (70-110)
--- NOTE | 2021-07-11 16:47 | PN.HOSP_ITS ---
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 She is dialysis dependent and missed dialysis on . The EMS was called secondary to increased weakness. In the emergency department she was bradycardic as low as 42 and hypotensive and fairly obtunded. She had hype rkalemia with a potassium of 7.6 and an elevated BUN creatinine from her baseline. Her ammonia was mildly elevated at 81 and an ABG showed a compensated metabolic acidosis. She underwent dialysis yesterday morning. She had been on Levophed at 30 mg/min. This morning her mental status has improved and she is sitting up in bed alert and oriented and has no recollection of the previous events. She remains on low-dose vasopressors at 5 mg/min. Midodrine has been initiated and attempts to get her off of her vasopressors. She states that this time she is feeling well. She indicates the wounds on her lower extremities have been chronic and Dr. Steward from nephrology confirms this Objective Data Objective Data Vital Signs: Vital Signs Temp Pulse Resp BP Pulse Ox 98 F 59 L 20 H 116/39 L 98 07/11/21 16:00 07/11/21 16:00 07/11/21 16:00 07/11/21 16:00 07/11/21 16:00 Oxygen Flow Rate (L/min) 1 Oxygen Delivery Method Room Air Weight: 97 kg Body Mass Index (BMI) 40.8 Intake & Output: Intake and Output for Last 24 Hours 07/09/21 07/10/21 07/11/21 23:59 23:59 23:59 Intake Total 1947.72 / 2075.82 1595.95 / 1595.95 Output Total 0 / 0 150 / 150 Balance 1947.72 / 2075.82 1445.95 / 1445.95 Lab / Micro Data Result Diagrams: 07/11/21 04:15 07/11/21 08:20 Labs: Laboratory Results - last 24 hr 07/10/21 16:15: MRSA (PCR) POSITIVE H 07/10/21 16:56: POC Glucose 74 07/10/21 18:43: POC Glucose 141 H 07/10/21 20:48: POC Glucose 217 H 07/11/21 04:15: WBC 9.1, RBC 3.05 L, Hgb 10.4 L, Hct 33.2 L, MCV 108.9 H, MCH 34.1 H, MCHC 31.3 L, RDW Std Deviation 61.3 H, RDW Coeff of Kusum 15.9 H, Plt Count 102 L, MPV 11.1, Immature Gran % (Auto) 0.400, Neut % (Auto) 77.1 H, Lymph % (Auto) 12.2 L, [place] % (Auto) 8.6, Eos % (Auto) 0.9, Baso % (Auto) 0.8, Absolute Neuts (auto) 7.0, Absolute Lymphs (auto) 1.11, Nucleated RBC % 0 07/11/21 04:15: Ammonia 21.0 07/11/21 08:07: POC Glucose 207 H 07/11/21 08:20: Sodium 131 L, Potassium 5.2 H, Chloride 95 L, Carbon Dioxide 26.0, Anion Gap 10, BUN 33 H, Creatinine 4.41 H, Estim Creat Clear Calc 16.88, Est GFR (MDRD) Af Amer 13 L, Est GFR (MDRD) Non-Af 10 L, BUN/Creatinine Ratio 7.5 L, Glucose 214 H, Calcium 8.7, Total Bilirubin 0.80, AST 22, ALT 31, Alkaline Phosphatase 93, Total Protein 6.4, Albumin 2.5 L, Globulin 3.9, Albumin/Globulin Ratio 0.6 L 07/11/21 12:17: POC Glucose 316 H 07/11/21 16:25: POC Glucose 271 H Micro: Microbiology 07/11/21 13:00 Stool Stool Lactoferrin - Final 07/10/21 10:05 Sputum, Induced/Lukens Gram Stain - Final 07/10/21 10:05 Sputum, Induced/Lukens Respiratory Culture - Preliminary Staphylococcus aureus 07/10/21 07:20 Urine Catheter - Catheter Legionella Antigen - Final 07/10/21 07:20 Urine Catheter - Catheter Streptococcus pneumoniae Antigen (M - Final 07/10/21 03:25 Nasal Secretion SARS-CoV-2 Antigen (Rapid) - Final Physical Exam Const alert, oriented x3 and no apparent distress Constitutional Narrative: Over the obese white female sitting up in bed, appears comfortable, nontoxic, appropriately interactive, nursing at bedside Exam Limitations: no limitations Nutritional Appearance: morbidly obese HEENT head/scalp atraumatic and moist oral mucous membranes HEENT Narrative: Mallampati 2-3, dentures in place, no thrush Head and Scalp: normocephalic Resp normal respiratory effort, no retractions, no use of accessory muscles and clear to auscultation bilaterally Resp Narrative: Diffusely diminished but clear Auscultation: Negative for crackles, rales, rhonchi or wheezes Cardio regular rate, regular rhythm, S1 normal heart sound, S2 normal heart sound, no rub, no gallops, no clicks and no JVD Cardio Narrative: 2 out of 6 systolic murmur GI normal to inspection, nondistended, normoactive bowel sounds, soft to palpation, non-tender and non-distended Extremity no clubbing, cyanosis or edema Extremity Narrative: 1+ pedal pulses Skin Skin Narrative: Bilateral lower extremities with no most petechiae-looking appearance with what looks like evidence of excoriation as well, few toes are darker in color, she has this presentation on her fingers but to a lesser extent, tunneled dialysis catheter in place Neuro oriented x3, CN's II-XII intact bilaterally, moves all extremities and no focal motor deficits Sensorium / Orientation: awake and alert Speech: speech normal Assessment & Plan Assessment/Plan (1) Shock: (2) Encephalopathy acute: (3) Acute hyperkalemia: (4) Hypotension: QUALIFIERS: Hypotension type: unspecified hypotension type Qualified Code(s): I95.9 - Hypotension, unspecified PLAN: Suspected septic shock -Patient tolerated dialysis well yesterday -On Levophed at 5 mics -Midodrine has been initiated in attempt to wean Levophed--> 10 mg 3 times daily -Cultures are pending but patient is high risk for infection -Continue vancomycin and Zosyn -Possible transfer to medical floor tomorrow if patient is off Levophed and maintained stability Metabolic encephalopathy -Likely multifactorial with missed dialysis and uremia/hyperkalemia/and mild ammonia elevation/hypoglycemia -Ammonia was 80 on admission -Was not treated with lactulose and resolved -She is on Vimpat for seizure disorder -Repeat ammonia in a.m. and if remains low would defer lactulose but if elevated may need to initiate Hyperkalemia secondary to missed HD -Improved with HD yesterday -7.9 on admission and down to 5.2 today Bradycardia -Resolved with correction of hyperkalemia -Patient has had issues with bradycardia in the past that required dopamineBut resolved with discontinuation of her rate limiting medications HFpEF-compensated -Patient with RV dysfunction related to morbid obesity and obstructive sleep apnea -Last echocardiogram was 02/25/2021 that showed an EF of 55% with severe RV dilation and moderate global RV dysfunction, severe tricuspid valve insufficiency -Continue dialysis for volume management, patient makes very little urine Hyponatremia -This appears to be chronic -Suspect related to volume -Monitor for any marked changes Chronic anemia secondary to end-stage renal disease -Hemoglobin stable -Monitor Thrombocytopenia -Chronic stable -Continue to monitor -Repeat CBC in a.m. DM-2 -Patient hypoglycemic on arrival -Continue sliding scale at this time -Patient more awake and oral intake has improved -Restart Lantus but only 10 units twice daily rather than home dose 20 units twice daily for now -Continue sliding scale -Hold scheduled log 3 units 3 times daily and monitor for needs End-stage renal disease on HD -Continue midodrine -Nephrology following -HD per nephrology Seizure disorder -Continue Vimpat -Check a.m. ammonia as the Vimpat could be causing hyperammonemia and may need to be addressed with a change in antiepileptic medication or treat with lactulo se Hypertension -Blood pressures are improving and we are able to wean his pressors -Home antihypertensives at this time -Monitor Morbid obesity -Recommend weight loss -Complicates treatment, prognosis, and outcomes DVT prophylaxis -Heparin 3 times daily CODE STATUS -Full code
[2021-07-11 22:30] LABS: Bedside Glucose 180 mg/dL (70-110)
[2021-07-12] VITALS (28 sets, daily range): BP systolic 86–159; BP diastolic 31–77; PULSE 51–58; RESP 11–19; TEMP 36.5–36.8; O2SAT 92–997
[2021-07-12] MEDS: Ondansetron 4 MG/2 ML Vial IV (03:48)
[2021-07-12] MEDS: metroNIDAZOLE 500 MG/100 ML BAG 100 MG IV ×3 (05:08→22:05)
[2021-07-12 06:55] LABS: Bedside Glucose 138 mg/dL (70-110)
--- NOTE | 2021-07-12 07:23 | PCM.PN.INT ---
Assessment & Plan Assessment/Plan (1) Shock: (2) Acute hyperkalemia: (3) Encephalopathy acute: (4) Chronic kidney disease, stage V: (5) Diabetes type 2, uncontrolled: QUALIFIERS: Coma presence: unspecified whether coma present Diabetes mellitus complication status: with unspecified complications PLAN: RECOMMENDATIONS: 1. Continue antimicrobials until cultures are finalized. 2. Continue scheduled midodrine. 3. Hemodialysis support per nephrology recommendations. 4. If the patient remains hemodynamically stable with dialysis, she can be transferred out of the ICU. 5. We will sign off from a critical care perspective. Please call with any additional questions. IMPRESSIONS: 1. Probable septic shock Potentially related to underlying pulmonary infectious etiology. Preliminary sputum culture dated July 10 was positive for staph aureus. Accordingly, the patient will remain on antimicrobials, pending finalized culture results. The patient remains hemodynamically stable at the present time off of vasopressor support. 2. End-stage renal disease on hemodialysis Continue hemodialysis support per nephrology recommendations. 3. Chronic leg ulcer/repeated hospitalizations/multiple allergies/anemia of chronic disease/pancytopenia Complicates care, management, recovery and prognosis. Continue supportive measures as noted above. This note was generated with [employer] dictation software. It may contain incorrect words, spelling, and punctuation that were not noted in checking the note before signing. Subjective Subjective The patient was seen and examined at the bedside this morning. Events from the last 24 hours have been reviewed. The patient is currently afebrile, hemodynamically stable and maintaining appropriate oxygen saturations on room air. The patient was able to be weaned off of Levophed completely yesterday afternoon. The patient is currently documented to be overall net +4.6 L for the hospitalization. She remains on antimicrobials along with scheduled midodrine. Objective Data Objective Data The patient's most recent lab work, culture data and imaging studies have all been personally reviewed. Preliminary sputum culture dated July 10 was positive for 3+ staph aureus. Vital Signs: Vital Signs Temp Pulse Resp BP Pulse Ox 97.9 F 56 L 18 122/57 H 98 07/12/21 06:00 07/12/21 07:00 07/12/21 07:00 07/12/21 07:00 07/12/21 07:00 Oxygen Flow Rate (L/min) 2 Oxygen Delivery Method Room Air Weight: 97 kg Body Mass Index (BMI) 40.8 Intake & Output: Intake and Output for Last 24 Hours 07/10/21 07/11/21 07/12/21 23:59 23:59 23:59 Intake Total 1947.72 / 2075.82 1935.95 / 2185.95 410 / 410 Output Total 0 / 0 170 / 200 45 / 45 Balance 1947.72 / 2075.82 1765.95 / 1985.95 365 / 365 Lab / Micro Data Result Diagrams: 07/12/21 03:55 07/13/21 04:25 Labs: Laboratory Results - last 24 hr 07/11/21 08:07: POC Glucose 207 H 07/11/21 08:20: Sodium 131 L, Potassium 5.2 H, Chloride 95 L, Carbon Dioxide 26.0, Anion Gap 10, BUN 33 H, Creatinine 4.41 H, Estim Creat Clear Calc 16.88, Est GFR (MDRD) Af Amer 13 L, Est GFR (MDRD) Non-Af 10 L, BUN/Creatinine Ratio 7.5 L, Glucose 214 H, Calcium 8.7, Total Bilirubin 0.80, AST 22, ALT 31, Alkaline Phosphatase 93, Total Protein 6.4, Albumin 2.5 L, Globulin 3.9, Albumin/Globulin Ratio 0.6 L 07/11/21 12:17: POC Glucose 316 H 07/11/21 16:25: POC Glucose 271 H 07/11/21 21:34: POC Glucose 180 H 07/12/21 06:46: POC Glucose 138 H Micro: Microbiology 07/11/21 13:00 Stool C. difficile DNA Amplification - Final 07/11/21 13:00 Stool Stool Lactoferrin - Final 07/10/21 10:05 Sputum, Induced/Lukens Gram Stain - Final 07/10/21 10:05 Sputum, Induced/Lukens Respiratory Culture - Preliminary Staphylococcus aureus 07/10/21 07:20 Urine Catheter - Catheter Legionella Antigen - Final 07/10/21 07:20 Urine Catheter - Catheter Streptococcus pneumoniae Antigen (M - Final 07/10/21 03:25 Nasal Secretion SARS-CoV-2 Antigen (Rapid) - Final Physical Exam Const alert, oriented x3 and no apparent distress General Appearance: cooperative and comfortable Nutritional Appearance: obese HEENT normocephalic and head/scalp atraumatic Eyes PERRL, EOMs intact bilaterally and conjunctivae normal Neck supple General: trachea midline Resp Auscultation: diminished lung sounds; Negative for rales, rhonchi or wheezes Cardio regular rate, regular rhythm, S1 normal heart sound and S2 normal heart sound GI normal to inspection, nondistended, normoactive bowel sounds and non-distended Extremity normal to inspection and full ROM Skin no rashes or lesions noted Neuro oriented x3, CN's II-XII intact bilaterally and moves all extremities Sensorium / Orientation: awake and alert Psych cooperative and affect normal Charges/Coding Visit Charges Inpatient E&M: 91961 Subs Hosp L3
[2021-07-12 07:29] LABS: Absolute Lymphocyte Count 1.14 X10^3/uL (0.83-4.51); Absolute Neutrophil Count 3.6 X10^3/uL (2.0-7.7); Basophil# 0.03 X10^3/uL; Basophil% 0.5 % (0-1); Eosinophil# 0.12 X10^3/uL; Eosinophils% 2.2 % (0-5); Hematocrit 31.7 % (37-47); Hemoglobin 9.9 g/dL (12.0-15.0); Lymphocyte # 1.14 X10^3/ul (0.83-4.51); Lymphocyte % 20.8 % (19-41); Mean Corp Hgb Conc 31.2 g/dL (32-36); Mean Corpuscular Hgb 33.6 pg (27.0-32.0); Mean Corpuscular Volume 107.5 fL (81-99); Mean Platelet Vol. 11.3 fl (6.2-12.0); Monocyte# 0.58 X10^3/uL; Monocyte% 10.6 % (0-10); NRBC Flagged by Analyzer 0 % (0-5); Neutrophil % 65.7 % (47-70); POSITIVE COUNT YES; Platelet Count 70 K/mm3 (150-450); RBC Distribution Width CV 15.6 % (11.6-14.6); Red Blood Count 2.95 M/mm3 (4.2-5.4); White Blood Count 5.5 K/mm3 (4.4-11.0)
[2021-07-12 07:47] LABS: Vancomycin, Random Level 13.8 ug/mL (0.0-15.0)
[2021-07-12 08:00] LABS: Differential Indicated SCAN CRITERIA MET
[2021-07-12 08:01] LABS: Macrocytosis 1+; Polychromasia 1+
[2021-07-12] MEDS: Midodrine HCl 5 MG Tablet 10 MG PO ×3 (08:09→16:44)
--- NOTE | 2021-07-12 08:09 | ECHOCS_ITS ---
Reason For Study: Emboli Procedure This was a 2D Doppler, Color Flow transthoracic echocardiogram. The study was technically difficult. Contrast injection was performed. Exam performed portable in ICU/CCU. Left Ventricle Normal LV size. D shaped septum in systole and diastole. Left ventricular systolic function is normal. The estimated ejection fraction is 70 %. Diastolic function is indeterminate. No regional wall motion abnormalities noted. Right Ventricle Moderately dilated right ventricle. Moderate global right ventricular systolic dysfunction. Atria The left atrium is mildly enlarged. The right atrium is moderately enlarged. No doppler evidence for ASD. Mitral Valve There is mild mitral annular calcification. Mild focal mitral valve calcification of the anterior leaflet. Mild (1+) mitral valve insufficiency. Tricuspid Valve Normal tricuspid valve. Moderately severe (3+) tricuspid valve insufficiency. Unable to estimate RV systolic pressure due to insufficient tricuspid regurgitant envelope. Aortic Valve Trisinus/trileaflet aortic valve. Mild focal aortic valve calcification. Pulmonic Valve The pulmonic valve is not well visualized. Trivial pulmonic valve insufficiency. Great Vessels The aortic root is not well visualized. Pericardium/Pleural No pericardial effusion. Medication Diluted definity 4.5ml given slow IV push to enhance endocardial definition. MMode/2D Measurements & Calculations LVIDd: 4.5 cm IVSd: 0.85 cm LA dimension: 4.1 cm LVIDs: 2.9 cm LVPWd: 0.89 cm RVDd: 4.9 cm FS: 34.8 % LAV(MOD-sp4): 76.6 ml LA A4 area: 23.0 cm2 RA A4 area: 22.4 cm2 Time Measurements MV dec time: 0.39 sec Doppler Measurements & Calculations MV E max moe: 76.9 cm/sec Lat Peak E' Moe: 13.2 cm/sec Med Peak E' Moe: 8.0 cm/sec MV A max moe: 76.4 cm/sec E/E' lat: 5.8 E/E' med: 9.6 MV E/A: 1.0 MV V2 max: 87.6 cm/sec MV P1/2t max moe: 87.6 cm/sec Ao V2 max: 131.9 cm/sec MV max P.1 mmHg MV P1/2t: 121.0 msec Ao max P.0 mmHg MV V2 mean: 49.4 cm/sec MV dec slope: 212.1 cm/sec2 MV mean P.2 mmHg MV V2 VTI: 36.3 cm MVA(P1/2t): 1.8 cm2 LV V1 max: 104.5 cm/sec PA V2 max: 93.4 cm/sec LV V1 max P.4 mmHg ECHO/Echo Complete W/ Contrast Interpretation Summary The study was technically difficult. Contrast injection was performed. Left ventricular systolic function is normal. The estimated ejection fraction is 70 %. D shaped septum in systole and diastole. Moderately dilated right ventricle. Moderate global right ventricular systolic dysfunction. The left atrium is mildly enlarged. The right atrium is moderately enlarged. There is mild mitral annular calcification. Mild focal mitral valve calcification of the anterior leaflet. Mild (1+) mitral valve insufficiency. Moderately severe (3+) tricuspid valve insufficiency. Mild focal aortic valve calcification. Trivial pulmonic valve insufficiency. Unable to estimate RV systolic pressure due to insufficient tricuspid regurgita nt envelope. Diastolic function is indeterminate. Ordering Physician: Christine Steward Referring Physician: Bailey Toribio Performed By: Harjinder Hayes RCS
[2021-07-12 08:18] LABS: ALB/GLOB Ratio 0.7 RATIO (0.9-2.4); AST(SGOT) 23 U/L (15-37); Alanine Aminotransfer ALT/SGPT 31 U/L (13-56); Albumin, Serum 2.7 g/dL (3.2-5.0); Alkaline Phosphatase 96 U/L (45-117); Anion Gap 9 (5-15); BUN 42 mg/dL (7-18); BUN/Creat Ratio 8.5 RATIO (10-20); Calcium,Total 8.9 mg/dL (8.5-10.1); Chloride 92 mmol/L (98-107); Creatinine, Serum 4.94 mg/dL (0.55-1.02); EST Glomerular Filtration Rate 9 mL/min (>60); Est Glom Filt Rate - Afr Amer 11 mL/min (>60); Estimated Creatinine Clearance 15.07 ml/min; Globulin 4.1 g/dL (2.2-4.2); Glucose 142 mg/dL (74-106); Phosphorus 5.7 mg/dL (2.5-4.9); Potassium 5.5 mmol/L (3.5-5.1); Protein, Total 6.8 g/dL (6.4-8.2); Sodium Level 129 mmol/L (136-145)
--- NOTE | 2021-07-12 08:36 | PCM.PN.HOSP ---
Subjective Subjective Patient is a 75-year-old lady with underlying history of end-stage renal disease presented to the emergency department with 2-week history of diarrhea and progressive generalized weakness having missed 1 session of dialysis. An assessment of suspected septic shock made admitted to the intensive care unit for further management Objective Data Objective Data Vital Signs: Vital Signs Temp Pulse Resp BP Pulse Ox 97.9 F 57 L 18 122/57 H 98 07/12/21 06:00 07/12/21 08:22 07/12/21 07:00 07/12/21 07:00 07/12/21 07:43 Oxygen Flow Rate (L/min) 2 Oxygen Delivery Method Room Air Weight: 97 kg Body Mass Index (BMI) 40.8 Intake & Output: Intake and Output for Last 24 Hours 07/10/21 07/11/21 07/12/21 23:59 23:59 23:59 Intake Total 1947.72 / 2075.82 1935.95 / 2185.95 410 / 410 Output Total 0 / 0 170 / 200 45 / 45 Balance 194.72 / 2074.82 1765.95 / 1985.95 365 / 365 Lab / Micro Data Result Diagrams: 07/12/21 03:55 07/12/21 07:49 Labs: Laboratory Results - last 24 hr 07/11/21 08:07: POC Glucose 207 H 07/11/21 08:20: Sodium 131 L, Potassium 5.2 H, Chloride 95 L, Carbon Dioxide 26.0, Anion Gap 10, BUN 33 H, Creatinine 4.41 H, Estim Creat Clear Calc 16.88, Est GFR (MDRD) Af Amer 13 L, Est GFR (MDRD) Non-Af 10 L, BUN/Creatinine Ratio 7.5 L, Glucose 214 H, Calcium 8.7, Total Bilirubin 0.80, AST 22, ALT 31, Alkaline Phosphatase 93, Total Protein 6.4, Albumin 2.5 L, Globulin 3.9, Albumin/Globulin Ratio 0.6 L 07/11/21 12:17: POC Glucose 316 H 07/11/21 16:25: POC Glucose 271 H 07/11/21 21:34: POC Glucose 180 H 07/12/21 03:55: Sodium Cancelled, Potassium Cancelled, Chloride Cancelled, Carbon Dioxide Cancelled, Anion Gap Cancelled, BUN Cancelled, Creatinine Cancelled, Estim Creat Clear Calc Cancelled, Est GFR (MDRD) Af Amer Cancelled, Est GFR (MDRD) Non-Af Cancelled, BUN/Creatinine Ratio Cancelled, Glucose Cancelled, Calcium Cancelled, Total Bilirubin Cancelled, AST Cancelled, ALT Cancelled, Alkaline Phosphatase Cancelled, Total Protein Cancelled, Albumin Cancelled, Globulin Cancelled, Albumin/Globulin Ratio Cancelled 07/12/21 03:55: Random Vancomycin 13.8 07/12/21 03:55: WBC 5.5, RBC 2.95 L, Hgb 9.9 L, Hct 31.7 L, MCV 107.5 H, MCH 33.6 H, MCHC 31.2 L, RDW Std Deviation 62.0 H, RDW Coeff of Kusum 15.6 H, Plt Count 70 L, MPV 11.3, Immature Gran % (Auto) 0.200, Neut % (Auto) 65.7, Lymph % (Auto) 20.8, [place] % (Auto) 10.6 H, Eos % (Auto) 2.2, Baso % (Auto) 0.5, Absolute Neuts (auto) 3.6, Absolute Lymphs (auto) 1.14, Nucleated RBC % 0, Polychromasia 1+, Macrocytosis 1+ 07/12/21 06:46: POC Glucose 138 H 07/12/21 07:32: Ammonia 35.0 H 07/12/21 07:49: Sodium 129 L, Potassium 5.5 H, Chloride 92 L, Carbon Dioxide 28.0, Anion Gap 9, BUN 42 H, Creatinine 4.94 H, Estim Creat Clear Calc 15.07, Est GFR (MDRD) Af Amer 11 L, Est GFR (MDRD) Non-Af 9 L, BUN/Creatinine Ratio 8.5 L, Glucose 142 H, Calcium 8.9, Phosphorus 5.7 H, Total Bilirubin 0.70, AST 23, ALT 31, Alkaline Phosphatase 96, Total Protein 6.8, Albumin 2.7 L, Globulin 4.1, Albumin/Globulin Ratio 0.7 L Micro: Microbiology 07/10/21 10:05 Sputum, Induced/Lukens Gram Stain - Final 07/10/21 10:05 Sputum, Induced/Lukens Respiratory Culture - Preliminary Staphylococcus aureus 07/11/21 13:00 Stool C. difficile DNA Amplification - Final 07/11/21 13:00 Stool Stool Lactoferrin - Final 07/10/21 07:20 Urine Catheter - Catheter Legionella Antigen - Final 07/10/21 07:20 Urine Catheter - Catheter Streptococcus pneumoniae Antigen (M - Final 07/10/21 03:25 Nasal Secretion SARS-CoV-2 Antigen (Rapid) - Final Physical Exam Narrative GENERAL: cooperative HEENT: Atraumatic; EYES; Anicteric, Normal Conjunctiva NECK; supple, normal thyroid, RESPIRATORY: Diminished to auscultation CARDIOVASCULAR: Regular S1 S2, GI: soft, normoactive bowel sounds, : No Renal angle tenderness; EXTREMITIES: No edema, no clubbing, MUSCULOSKELETAL: no muscle waisting NEURO: Awake; no lateralizing signs. SKIN: No Rash PSYCH; Flat affect Assessment & Plan Assessment/Plan (1) Shock: (2) Encephalopathy acute: (3) Acute hyperkalemia: (4) Hypotension: QUALIFIERS: Hypotension type: unspecified hypotension type Qualified Code(s): I95.9 - Hypotension, unspecified PLAN: Patient is a 75-year-old lady with underlying history of end-stage renal disease presented to the emergency department with 2-week history of diarrhea and progressive generalized weakness having missed 1 session of dialysis. An assessment of suspected septic shock made admitted to the intensive care unit for further management 1. Septic shock ? Source not clear at this point. Patient remains on broad-spectrum antibiotic therapy with Vanco and Zosyn. Patient did receive Levophed and midodrine has been initiated with plans to wean off Levophed 2. Acute metabolic encephalopathy ? Secondary to above plan is to treat underlying condition 3. Hyperkalemia Secondary to end-stage renal disease ? Patient potassium level on admission was 7.9 down to 5.5 4. End-stage renal disease ? On hemodialysis nephrology has been consulted for dialysis orders 5. Bradycardia Secondary to hyperkalemia treated by treating patient hyperkalemia 6. Hyponatremia ? Chronic secondary to end-stage renal disease monitoring with daily BMPs 7. Anemia - Secondary to chronic disorder monitoring H&H and transfuse if patient becomes symptomatic or hemoglobin falls below 7 8. Chronic congestive heart failure with preserved ejection fraction -Last echocardiogram was 02/25/2021 that showed an EF of 55% with severe RV dilation and moderate global RV dysfunction, severe tricuspid valve insufficiency plan is to continue with dialysis for volume management 9. Thrombocytopenia -Patient has continued to experience decline in her platelet count since June 18, 2021. Monitoring with daily count avoided use of heparin and its related for direct 10. Diabetes mellitus type II -patient's oral hypoglycemics held. Placed on long acting insulin, Accu-Cheks a.c. and at bedtime and covered with sliding scale insulin 11. Seizure disorder -Continue Vimpat 12. Essential hypertension ? Antihypertensives on hold in view of patient presentation 13. Class III obesity with BMI of 42 ? Weight loss advised 14. DVT prophylaxis discontinued heparin in view of patient's Thrombocytopenia Charges/Coding Visit Charges Inpatient E&M: 58047 Subs Hosp L3
[2021-07-12 09:20] LABS: Vancomycin, Random Level 13.9 ug/mL (0.0-15.0)
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
[2021-07-12] MEDS: Nystatin Powder 15gm Bottle 1 APPLIC TOPICAL ×2 (10:12→22:06)
--- NOTE | 2021-07-12 10:33 | PCM.RX.CS ---
Consult Pharmacy has been consulted to manage selected antiobiotic: Vancomycin Type of Consult: Follow-up Suspected Infection: Sepsis Labs: Sodium 129 mmol/L (136-145) L 07/12/21 07:49 Potassium 5.5 mmol/L (3.5-5.1) H 07/12/21 07:49 Chloride 92 mmol/L (98-107) L 07/12/21 07:49 Carbon Dioxide 28.0 mmol/L (21.0-32.0) 07/12/21 07:49 Anion Gap 9 (5-15) 07/12/21 07:49 BUN 42 mg/dL (7-18) H 07/12/21 07:49 Creatinine 4.94 mg/dL (0.55-1.02) H 07/12/21 07:49 Est GFR (MDRD) Af Amer 11 mL/min (>60) L 07/12/21 07:49 Est GFR (MDRD) Non-Af 9 mL/min (>60) L 07/12/21 07:49 BUN/Creatinine Ratio 8.5 RATIO (10-20) L 07/12/21 07:49 Glucose 142 mg/dL (74-106) H 07/12/21 07:49 Random Vancomycin 13.9 ug/mL (0.0-15.0) 07/12/21 08:30 Microbiology: Microbiology 07/10/21 10:05 Sputum, Induced/Lukens Gram Stain - Final 07/10/21 10:05 Sputum, Induced/Lukens Respiratory Culture - Preliminary Staphylococcus aureus 07/11/21 13:00 Stool C. difficile DNA Amplification - Final 07/11/21 13:00 Stool Stool Lactoferrin - Final 07/10/21 07:20 Urine Catheter - Catheter Legionella Antigen - Final 07/10/21 07:20 Urine Catheter - Catheter Streptococcus pneumoniae Antigen (M - Final 07/10/21 03:25 Nasal Secretion SARS-CoV-2 Antigen (Rapid) - Final Goal Trough: 15-20 mcg/mL Pharmacy Plan for Drug Dosing: VANCOMYCIN LEVEL RECEIVED Current Vancomycin Dose: pt is on Dialysis Dosing Number of Doses Received: 1250mg x1 on 07/10/21 Vancomycin Level: pre dialysis random level resulted at 13.9 Hours Since Last Dose: Renal Function: SrCr 4.94 Renal Function Trend: Lab/Micro: Vancomycin Plan/Comments: Recommend a x1 dose of 750mg to be administered after dialysis on 07/12/21. Pending Level: random level on next dialysis day. currently unsure of when that will be Pharmacy Service will continue to monitor and adjust dosing as required. Follow-Up Labs: Trough Vancomycin - random level on next dialysis day
[2021-07-12 11:01] LABS: Bedside Glucose 304 mg/dL (70-110)
--- NOTE | 2021-07-12 11:22 | PN.RENAL_ITS ---
Subjective Subjective Remains on pressors for hypotension. More awake and alert. Complains of pain from Nicole catheter and discharge. Potassium elevated 5.7. Will give Kayexalate x1 dose today. Objective Data Objective Data Vital Signs: Vital Signs Temp Pulse Resp BP Pulse Ox 98.2 F 55 L 16 159/31 H 95 07/12/21 08:00 07/12/21 10:00 07/12/21 10:00 07/12/21 10:00 07/12/21 10:00 Oxygen Flow Rate (L/min) 2 Oxygen Delivery Method Room Air Weight: 97.2 kg Body Mass Index (BMI) 40.8 Intake & Output: Intake and Output for Last 24 Hours 07/10/21 07/11/21 07/12/21 23:59 23:59 23:59 Intake Total 1947.72 / 2075.82 1935.95 / 2185.95 460 / 460 Output Total 0 / 0 170 / 200 45 / 45 Balance 1947.72 / 5.82 1765.95 / 1985.95 415 / 415 Lab / Micro Data Result Diagrams: 07/12/21 03:55 07/12/21 07:49 Labs: Laboratory Results - last 24 hr 07/11/21 12:17: POC Glucose 316 H 07/11/21 16:25: POC Glucose 271 H 07/11/21 21:34: POC Glucose 180 H 07/12/21 03:55: Sodium Cancelled, Potassium Cancelled, Chloride Cancelled, Carbon Dioxide Cancelled, Anion Gap Cancelled, BUN Cancelled, Creatinine Cancelled, Estim Creat Clear Calc Cancelled, Est GFR (MDRD) Af Amer Cancelled, Est GFR (MDRD) Non-Af Cancelled, BUN/Creatinine Ratio Cancelled, Glucose Cancelled, Calcium Cancelled, Total Bilirubin Cancelled, AST Cancelled, ALT Cancelled, Alkaline Phosphatase Cancelled, Total Protein Cancelled, Albumin Cancelled, Globulin Cancelled, Albumin/Globulin Ratio Cancelled 07/12/21 03:55: Random Vancomycin 13.8 07/12/21 03:55: WBC 5.5, RBC 2.95 L, Hgb 9.9 L, Hct 31.7 L, MCV 107.5 H, MCH 33.6 H, MCHC 31.2 L, RDW Std Deviation 62.0 H, RDW Coeff of Kusum 15.6 H, Plt Count 70 L, MPV 11.3, Immature Gran % (Auto) 0.200, Neut % (Auto) 65.7, Lymph % (Auto) 20.8, [place] % (Auto) 10.6 H, Eos % (Auto) 2.2, Baso % (Auto) 0.5, Absolute Neuts (auto) 3.6, Absolute Lymphs (auto) 1.14, Nucleated RBC % 0, Polychromasia 1+, Macrocytosis 1+ 07/12/21 06:46: POC Glucose 138 H 07/12/21 07:32: Ammonia 35.0 H 07/12/21 07:49: Sodium 129 L, Potassium 5.5 H, Chloride 92 L, Carbon Dioxide 28.0, Anion Gap 9, BUN 42 H, Creatinine 4.94 H, Estim Creat Clear Calc 15.07, Est GFR (MDRD) Af Amer 11 L, Est GFR (MDRD) Non-Af 9 L, BUN/Creatinine Ratio 8.5 L, Glucose 142 H, Calcium 8.9, Phosphorus 5.7 H, Total Bilirubin 0.70, AST 23, ALT 31, Alkaline Phosphatase 96, Total Protein 6.8, Albumin 2.7 L, Globulin 4.1, Albumin/Globulin Ratio 0.7 L 07/12/21 08:30: Random Vancomycin 13.9 07/12/21 10:56: POC Glucose 304 H Micro: Microbiology 07/10/21 10:05 Sputum, Induced/Lukens Gram Stain - Final 07/10/21 10:05 Sputum, Induced/Lukens Respiratory Culture - Preliminary Staphylococcus aureus 07/11/21 13:00 Stool C. difficile DNA Amplification - Final 07/11/21 13:00 Stool Stool Lactoferrin - Final 07/10/21 07:20 Urine Catheter - Catheter Legionella Antigen - Final 07/10/21 07:20 Urine Catheter - Catheter Streptococcus pneumoniae Antigen (M - Final 07/10/21 03:25 Nasal Secretion SARS-CoV-2 Antigen (Rapid) - Final Radiography Diagnostic Testing: Radiology Impression Echocardiogram 07/12/21 08:09 Interpretation Summary The study was technically difficult. Contrast injection was performed. Left ventricular systolic function is normal. The estimated ejection fraction is 70 %. D shaped septum in systole and diastole. Moderately dilated right ventricle. Moderate global right ventricular systolic dysfunction. The left atrium is mildly enlarged. The right atrium is moderately enlarged. There is mild mitral annular calcification. Mild focal mitral valve calcification of the anterior leaflet. Mild (1+) mitral valve insufficiency. Moderately severe (3+) tricuspid valve insufficiency. Mild focal aortic valve calcification. Trivial pulmonic valve insufficiency. Unable to estimate RV systolic pressure due to insufficient tricuspid regurgitant envelope. Diastolic function is indeterminate. Ordering Physician: Christine Steward Referring Physician: Bailey Toribio Performed By: Harjinder Haeys RCS Physical Exam Const alert, oriented x3 and no apparent distress Resp clear to auscultation bilaterally Cardio regular rate GI non-tender and non-distended Auscultation: normoactive bowel sounds Palpation: soft Extremity Extremity Narrative: Trace General Extremity: AV fistula, cyanosis and edema bilateral Skin Skin Narrative: Bilateral toes and left foot, chronic General Skin Exam: petechiae and purpura Neuro Sensorium / Orientation: awake and alert Assessment & Plan Assessment/Plan (1) ESRD (end stage renal disease) on dialysis: PLAN: Hemodialysis Monday, , Monday. Dialysis on Monday. (2) Acute hyperkalemia: PLAN: K7.6 with cardiac dysrrhythmia on admission. Kayexalate x1 today for K of 5.5. (3) Shock: PLAN: Requiring pressor support, midodrine cultures no growth so far. 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 Check echocardiogram to evaluate for embolic event. (7) Iron deficiency anemia: PLAN: Hemoglobin stable on IV iron and TEMO with dialysis (8) Diarrhea: PLAN: C. difficile negative
[2021-07-12] MEDS: Insulin Lispro 100 UNIT/ML INSULN.PEN SC ×3 (11:47→22:07)
[2021-07-12] MEDS: Sodium Polystyrene Sulfonate 15 GM/60 ML UDC PO (12:24)
[2021-07-12 16:25] LABS: Bedside Glucose 184 mg/dL (70-110)
[2021-07-12 22:16] LABS: Bedside Glucose 170 mg/dL (70-110)
[2021-07-13] VITALS (23 sets, daily range): BP systolic 101–144; BP diastolic 31–95; PULSE 56–92; RESP 11–22; TEMP 36.1–37.7; O2SAT 90–100
[2021-07-13] MEDS: metroNIDAZOLE 500 MG/100 ML BAG 100 MG IV ×3 (04:32→21:26)
[2021-07-13] MEDS: oxyCODONE 5 MG Tablet PO (04:32)
[2021-07-13 04:58] LABS: Anion Gap 13 (5-15); BUN 48 mg/dL (7-18); BUN/Creat Ratio 8.9 RATIO (10-20); Calcium,Total 8.3 mg/dL (8.5-10.1); Chloride 94 mmol/L (98-107); Creatinine, Serum 5.41 mg/dL (0.55-1.02); EST Glomerular Filtration Rate 8 mL/min (>60); Est Glom Filt Rate - Afr Amer 10 mL/min (>60); Estimated Creatinine Clearance 13.79 ml/min; Glucose 123 mg/dL (74-106); Magnesium 2.2 mg/dL (1.6-2.6); Potassium 5.5 mmol/L (3.5-5.1); Sodium Level 131 mmol/L (136-145)
[2021-07-13 04:59] LABS: Vancomycin, Random Level 21.9 ug/mL (0.0-15.0)
--- NOTE | 2021-07-13 07:11 | PN.HOSP_ITS ---
Subjective Subjective Patient seen currently being dialyzed. Patient has since been weaned off Levophed. Plan is for patient to be transferred to the progressive care unit Objective Data Objective Data Vital Signs: Vital Signs Temp Pulse Resp BP Pulse Ox 98.4 F 60 16 110/63 96 07/13/21 04:00 07/13/21 07:00 07/13/21 07:00 07/13/21 07:00 07/13/21 07:00 Oxygen Flow Rate (L/min) 2 Oxygen Delivery Method Room Air Weight: 97.2 kg Body Mass Index (BMI) 40.8 Intake & Output: Intake and Output for Last 24 Hours 07/11/21 07/12/21 07/13/21 23:59 23:59 23:59 Intake Total 1935.95 / 2185.95 1490 / 1890 620 / 620 Output Total 170 / 200 95 / 135 40 / 40 Balance 1765.95 / 1985.95 1395 / 1755 580 / 580 Lab / Micro Data Result Diagrams: 07/12/21 03:55 07/13/21 04:25 Labs: Laboratory Results - last 24 hr 07/12/21 03:55: Sodium Cancelled, Potassium Cancelled, Chloride Cancelled, Carbon Dioxide Cancelled, Anion Gap Cancelled, BUN Cancelled, Creatinine Cancelled, Estim Creat Clear Calc Cancelled, Est GFR (MDRD) Af Amer Cancelled, Est GFR (MDRD) Non-Af Cancelled, BUN/Creatinine Ratio Cancelled, Glucose Cancelled, Calcium Cancelled, Total Bilirubin Cancelled, AST Cancelled, ALT Cancelled, Alkaline Phosphatase Cancelled, Total Protein Cancelled, Albumin Cancelled, Globulin Cancelled, Albumin/Globulin Ratio Cancelled 07/12/21 03:55: Random Vancomycin 13.8 07/12/21 03:55: WBC 5.5, RBC 2.95 L, Hgb 9.9 L, Hct 31.7 L, MCV 107.5 H, MCH 33.6 H, MCHC 31.2 L, RDW Std Deviation 62.0 H, RDW Coeff of [place] 15.6 H, Plt Count 70 L, MPV 11.3, Immature Gran % (Auto) 0.200, Neut % (Auto) 65.7, Lymph % (Auto) 20.8, [place] % (Auto) 10.6 H, Eos % (Auto) 2.2, Baso % (Auto) 0.5, Absolute Neuts (auto) 3.6, Absolute Lymphs (auto) 1.14, Nucleated RBC % 0, Polychromasia 1+, Macrocytosis 1+ 07/12/21 07:32: Ammonia 35.0 H 07/12/21 07:49: Sodium 129 L, Potassium 5.5 H, Chloride 92 L, Carbon Dioxide 28.0, Anion Gap 9, BUN 42 H, Creatinine 4.94 H, Estim Creat Clear Calc 15.07, Est GFR (MDRD) Af Amer 11 L, Est GFR (MDRD) Non-Af 9 L, BUN/Creatinine Ratio 8.5 L, Glucose 142 H, Calcium 8.9, Phosphorus 5.7 H, Total Bilirubin 0.70, AST 23, ALT 31, Alkaline Phosphatase 96, Total Protein 6.8, Albumin 2.7 L, Globulin 4.1, Albumin/Globulin Ratio 0.7 L 07/12/21 08:30: Random Vancomycin 13.9 07/12/21 10:56: POC Glucose 304 H 07/12/21 16:21: POC Glucose 184 H 07/12/21 22:04: POC Glucose 170 H 07/13/21 04:25: Sodium 131 L, Potassium 5.5 H, Chloride 94 L, Carbon Dioxide 24.0, Anion Gap 13, BUN 48 H, Creatinine 5.41 H, Estim Creat Clear Calc 13.79, Est GFR (MDRD) Af Amer 10 L, Est GFR (MDRD) Non-Af 8 L, BUN/Creatinine Ratio 8.9 L, Glucose 123 H, Calcium 8.3 L, Magnesium 2.2 07/13/21 04:25: Random Vancomycin 21.9 H Micro: Microbiology 07/10/21 06:43 Blood Culture (Wb) - Line Draw Blood Culture - Preliminary No growth in 48 hours. 07/10/21 06:57 Blood Culture (Wb) - Right Wrist Blood Culture - Preliminary No growth in 48 hours. 07/11/21 13:00 Stool Enteric Bacteriology - Final 07/11/21 13:00 Stool C. difficile DNA Amplification - Final 07/10/21 10:05 Sputum, Induced/Lukens Gram Stain - Final 07/10/21 10:05 Sputum, Induced/Lukens Respiratory Culture - Preliminary Staphylococcus aureus 07/11/21 13:00 Stool Stool Lactoferrin - Final 07/10/21 07:20 Urine Catheter - Catheter Legionella Antigen - Final 07/10/21 07:20 Urine Catheter - Catheter Streptococcus pneumoniae Antigen (M - Final 07/10/21 03:25 Nasal Secretion SARS-CoV-2 Antigen (Rapid) - Final Radiography Diagnostic Testing: Radiology Impression Echocardiogram 07/12/21 08:09 Interpretation Summary The study was technically difficult. Contrast injection was performed. Left ventricular systolic function is normal. The estimated ejection fraction is 70 %. D shaped septum in systole and diastole. Moderately dilated right ventricle. Moderate global right ventricular systolic dysfunction. The left atrium is mildly enlarged. The right atrium is moderately enlarged. There is mild mitral annular calcification. Mild focal mitral valve calcification of the anterior leaflet. Mild (1+) mitral valve insufficiency. Moderately severe (3+) tricuspid valve insufficiency. Mild focal aortic valve calcification. Trivial pulmonic valve insufficiency. Unable to estimate RV systolic pressure due to insufficient tricuspid regurgitant envelope. Diastolic function is indeterminate. Ordering Physician: Christine Steward Referring Physician: Bailey Toribio Performed By: Harjinder Hayes RCS Physical Exam Narrative GENERAL: cooperative HEENT: Atraumatic; EYES; Anicteric, Normal Conjunctiva NECK; supple, normal thyroid, RESPIRATORY: Diminished to auscultation CARDIOVASCULAR: Regular S1 S2, GI: soft, normoactive bowel sounds, : No Renal angle tenderness; EXTREMITIES: No edema, no clubbing, MUSCULOSKELETAL: no muscle waisting NEURO: Awake; no lateralizing signs. SKIN: No Rash PSYCH; Flat affect Assessment & Plan Assessment/Plan (1) Shock: (2) Encephalopathy acute: (3) Acute hyperkalemia: (4) Hypotension: QUALIFIERS: Hypotension type: unspecified hypotension type Qualified Code(s): I95.9 - Hypotension, unspecified PLAN: Patient is a 75-year-old lady with underlying history of end-stage renal disease presented to the emergency department with 2-week history of diarrhea and progressive generalized weakness having missed 1 session of dialysis. An assessment of suspected septic shock made admitted to the intensive care unit for further management 1. Septic shock secondary to MRSA pneumonia ? Treated initially with broad-spectrum antibiotic with vancomycin and Zosyn patient did receive Levophed and midodrine has been initiated with plans to wean off Levophed -07/13/2021. Sputum cultures came back positive for MRSA. Patient is on vancomycin 2. Acute metabolic encephalopathy ? Secondary to above plan is to treat underlying condition -07/13/2021 patient level of subzero back to baseline 3. Hyperkalemia Secondary to end-stage renal disease ? Patient potassium level on admission was 7.9 down to 5.5 -07/13/2021; patient potassium remains elevated at 5.5. Plan is for patient to undergo hemodialysis 4. End-stage renal disease ? On hemodialysis nephrology has been consulted for dialysis orders 5. Bradycardia Secondary to hyperkalemia treated by treating patient hyperkalemia 6. Hyponatremia ? Chronic secondary to end-stage renal disease monitoring with daily BMPs 7. Anemia - Secondary to chronic disorder monitoring H&H and transfuse if patient becomes symptomatic or hemoglobin falls below 7 8. Chronic congestive heart failure with preserved ejection fraction -Last echocardiogram was 02/25/2021 that showed an EF of 55% with severe RV dilation and moderate global RV dysfunction, severe tricuspid valve insufficiency plan is to continue with dialysis for volume management 9. Thrombocytopenia -Patient has continued to experience decline in her platelet count since June 18, 2021. Monitoring with daily count avoided use of heparin and its related for direct 10. Diabetes mellitus type II -patient's oral hypoglycemics held. Placed on long acting insulin, Accu-Cheks a .c. and at bedtime and covered with sliding scale insulin 11. Seizure disorder -Continue Vimpat 12. Essential hypertension ? Antihypertensives on hold in view of patient presentation 13. Class III obesity with BMI of 42 ? Weight loss advised 14. DVT prophylaxis discontinued heparin in view of patient's Thrombocytopenia Charges/Coding Visit Charges Inpatient E&M: 79969 Subs Hosp L3
--- NOTE | 2021-07-13 08:18 | PCM.RX.CS ---
Consult Pharmacy has been consulted to manage selected antiobiotic: Vancomycin Type of Consult: Follow-up Prior Doses of Antibiotics Received/Current Regimen: received 750mg x1 yesterday at 15:04 Labs: Sodium 131 mmol/L (136-145) L 07/13/21 04:25 Potassium 5.5 mmol/L (3.5-5.1) H 07/13/21 04:25 Chloride 94 mmol/L (98-107) L 07/13/21 04:25 Carbon Dioxide 24.0 mmol/L (21.0-32.0) 07/13/21 04:25 Anion Gap 13 (5-15) 07/13/21 04:25 BUN 48 mg/dL (7-18) H 07/13/21 04:25 Creatinine 5.41 mg/dL (0.55-1.02) H 07/13/21 04:25 Est GFR (MDRD) Af Amer 10 mL/min (>60) L 07/13/21 04:25 Est GFR (MDRD) Non-Af 8 mL/min (>60) L 07/13/21 04:25 BUN/Creatinine Ratio 8.9 RATIO (10-20) L 07/13/21 04:25 Glucose 123 mg/dL (74-106) H 07/13/21 04:25 Random Vancomycin 21.9 ug/mL (0.0-15.0) H 07/13/21 04:25 Microbiology: Microbiology 07/10/21 10:05 Sputum, Induced/Lukens Gram Stain - Final 07/10/21 10:05 Sputum, Induced/Lukens Respiratory Culture - Final Meth. resistant Staph. aureus 07/10/21 06:43 Blood Culture (Wb) - Line Draw Blood Culture - Preliminary No growth in 48 hours. 07/10/21 06:57 Blood Culture (Wb) - Right Wrist Blood Culture - Preliminary No growth in 48 hours. 07/11/21 13:00 Stool Enteric Bacteriology - Final 07/11/21 13:00 Stool C. difficile DNA Amplification - Final 07/11/21 13:00 Stool Stool Lactoferrin - Final 07/10/21 07:20 Urine Catheter - Catheter Legionella Antigen - Final 07/10/21 07:20 Urine Catheter - Catheter Streptococcus pneumoniae Antigen (M - Final 07/10/21 03:25 Nasal Secretion SARS-CoV-2 Antigen (Rapid) - Final Weight used for dosin.2 kg Estimated Creatinine Clearance: on HD Goal Trough: 15-20 mcg/mL Pharmacy Plan for Drug Dosing: The vanc random level drawn at 04:25 today was 21.9. Since it is >20, no vanc dose will be ordered for today after dialysis. Will repeat a vanc random level before the next dialysis session on to see if a dose will be needed after HD. Pharmacy Service will continue to monitor and adjust dosing as required. Follow-Up Labs: Trough Vancomycin - random pre-dialysis Labs to be done on [date and time ordered]: 07/15/21 0600
--- NOTE | 2021-07-13 10:10 | PN.RENAL_ITS ---
Subjective Subjective seen on dialysis, proceeding without incident. BP stable. Off pressors. Attempt fluid removal as tolerated Objective Data Objective Data Vital Signs: Vital Signs Temp Pulse Resp BP Pulse Ox 99.8 F H 59 L 17 125/65 H 95 07/13/21 08:00 07/13/21 08:18 07/13/21 08:00 07/13/21 08:00 07/13/21 08:00 Oxygen Flow Rate (L/min) 2 Oxygen Delivery Method Mechanical Ventilator Weight: 97.2 kg Body Mass Index (BMI) 40.8 Intake & Output: Intake and Output for Last 24 Hours 07/11/21 07/12/21 07/13/21 23:59 23:59 23:59 Intake Total 1935.95 / 2185.95 1490 / 1890 620 / 620 Output Total 170 / 200 95 / 135 40 / 40 Balance 1765.95 / 1985.95 1395 / 1755 580 / 580 Lab / Micro Data Result Diagrams: 07/12/21 03:55 07/13/21 04:25 Labs: Laboratory Results - last 24 hr 07/12/21 10:56: POC Glucose 304 H 07/12/21 16:21: POC Glucose 184 H 07/12/21 22:04: POC Glucose 170 H 07/13/21 04:25: Sodium 131 L, Potassium 5.5 H, Chloride 94 L, Carbon Dioxide 24.0, Anion Gap 13, BUN 48 H, Creatinine 5.41 H, Estim Creat Clear Calc 13.79, Est GFR (MDRD) Af Amer 10 L, Est GFR (MDRD) Non-Af 8 L, BUN/Creatinine Ratio 8.9 L, Glucose 123 H, Calcium 8.3 L, Magnesium 2.2 07/13/21 04:25: Random Vancomycin 21.9 H Micro: Microbiology 07/10/21 10:05 Sputum, Induced/Lukens Gram Stain - Final 07/10/21 10:05 Sputum, Induced/Lukens Respiratory Culture - Final Meth. resistant Staph. aureus 07/10/21 06:43 Blood Culture (Wb) - Line Draw Blood Culture - Preliminary No growth in 48 hours. 07/10/21 06:57 Blood Culture (Wb) - Right Wrist Blood Culture - Preliminary No growth in 48 hours. 07/11/21 13:00 Stool Enteric Bacteriology - Final 07/11/21 13:00 Stool C. difficile DNA Amplification - Final 07/11/21 13:00 Stool Stool Lactoferrin - Final 07/10/21 07:20 Urine Catheter - Catheter Legionella Antigen - Final 07/10/21 07:20 Urine Catheter - Catheter Streptococcus pneumoniae Antigen (M - Final 07/10/21 03:25 Nasal Secretion SARS-CoV-2 Antigen (Rapid) - Final Radiography Diagnostic Testing: Radiology Impression Echocardiogram 07/12/21 08:09 Interpretation Summary The study was technically difficult. Contrast injection was performed. Left ventricular systolic function is normal. The estimated ejection fraction is 70 %. D shaped septum in systole and diastole. Moderately dilated right ventricle. Moderate global right ventricular systolic dysfunction. The left atrium is mildly enlarged. The right atrium is moderately enlarged. There is mild mitral annular calcification. Mild focal mitral valve calcification of the anterior leaflet. Mild (1+) mitral valve insufficiency. Moderately severe (3+) tricuspid valve insufficiency. Mild focal aortic valve calcification. Trivial pulmonic valve insufficiency. Unable to estimate RV systolic pressure due to insufficient tricuspid regurgitant envelope. Diastolic function is indeterminate. Ordering Physician: Christine Steward Referring Physician: Bailey Toribio Performed By: Harjinder Hayes RCS Physical Exam Const alert, oriented x3 and no apparent distress Resp clear to auscultation bilaterally Cardio Rate: bradycardia GI non-tender and non-distended Palpation: soft Extremity Extremity Narrative: purpura, petechial rash persistent in toes, stable Neuro Sensorium / Orientation: awake and alert Psych cooperative Assessment & Plan Assessment/Plan (1) ESRD (end stage renal disease) on dialysis: PLAN: Hemodialysis Monday, , Monday. Seen on dialysis, proceeding w/o incident (2) Acute hyperkalemia: PLAN: K7.6 with cardiac dysrrhythmia on admission. Kayexalate x1 today for K of 5.5. (3) Shock: PLAN: off pressors cultures no growth so far. 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 Check echocardiogram to evaluate for embolic event. (7) Iron deficiency anemia: PLAN: Hemoglobin stable on IV iron and TEMO with dialysis (8) Diarrhea: PLAN: C. difficile negative
[2021-07-13 11:25] LABS: Bedside Glucose 66 mg/dL (70-110)
--- NOTE | 2021-07-13 12:03 | DIALYSIS ---
HD X 3.5 HOURS ON 2K BATH. [id number] TOLERATED [place] WELL REPORT TO PATTIE MALDONADO
[2021-07-13] MEDS: Midodrine HCl 5 MG Tablet 10 MG PO ×2 (12:15→16:43)
[2021-07-13] MEDS: Nystatin Powder 15gm Bottle 1 APPLIC TOPICAL ×2 (12:23→21:26)
--- NOTE | 2021-07-13 13:32 | CASEMGMT ---
ERICA TREVIÑO Face to Face with patient for initial transition planning/care coordination assessment. RN CM introduced self and role at [facility]. Patient sitting in chair, alert and oriented. Patient willing to participate in assessment and is able to answer all questions appropriately. Care providers, pharmacy, and demographics verified. Patient wishes to discharge home and is interested in HHC at discharge. RN KAMILA provided patient with list of HHC agencies to review for preferences. Patient states she has no further needs or concerns at this time. CM to follow for discharge planning needs that may arise. 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 Patient states she is independent at home for self care, assists with household Transportation: DME/HHC: Patient states she has cane, walker, rollator, wheelchair, and grab bars at home. Patietn states she has had [facility] and [facility] in the past. Patient has previously been to [facility] and [facility]. Patient goes to [facility] for outpatient HD on TTS 1000. Patient to review HHC list and provide preferences. Disposition Plan: Patient to discharge home with HHC, family support, and follow-up plan in place. Monet IZQUIERDO, RN, CM
[2021-07-13 15:34] LABS: Absolute Lymphocyte Count 0.86 X10^3/uL (0.83-4.51); Absolute Neutrophil Count 3.9 X10^3/uL (2.0-7.7); Basophil# 0.04 X10^3/uL; Basophil% 0.7 % (0-1); Eosinophil# 0.11 X10^3/uL; Eosinophils% 1.9 % (0-5); Hematocrit 31.9 % (37-47); Lymphocyte # 0.86 X10^3/ul (0.83-4.51); Mean Corp Hgb Conc 31.3 g/dL (32-36); Mean Corpuscular Hgb 33.7 pg (27.0-32.0); Mean Corpuscular Volume 107.4 fL (81-99); Mean Platelet Vol. 10.2 fl (6.2-12.0); Monocyte# 0.76 X10^3/uL; Monocyte% 13.3 % (0-10); NRBC Flagged by Analyzer 0 % (0-5); Neutrophil # 3.94 X10^3/uL (2.7-7.7); Neutrophil % 68.9 % (47-70); POSITIVE COUNT YES; Platelet Count 71 K/mm3 (150-450); RBC Distribution Width CV 16.3 % (11.6-14.6); RBC Distribution Width SD 63.3 fl (35.1-43.9); Red Blood Count 2.97 M/mm3 (4.2-5.4); White Blood Count 5.7 K/mm3 (4.4-11.0)
[2021-07-13 15:42] LABS: Differential Indicated SCAN CRITERIA MET
[2021-07-13 16:05] LABS: Bedside Glucose 159 mg/dL (70-110)
[2021-07-13 16:36] LABS: Anisocytosis 1+; Hypochromasia RARE; Macrocytosis 1+; Platelet Estimate MOD DEC (ADEQ); Red Cell Morphology N CHROM NORMAL (NORM C&C)
[2021-07-13] MEDS: Insulin Lispro 100 UNIT/ML INSULN.PEN SC (16:44)
[2021-07-13] MEDS: 0.9% Saline Lock 10 ML Syringe IV ×2 (21:34→22:13)
[2021-07-13 21:40] LABS: Bedside Glucose 115 mg/dL (70-110)
[2021-07-13] MEDS: DiphenhydrAMINE 50 MG/ML Syringe 25 MG IV (21:40)
--- NOTE | 2021-07-13 21:53 | PCS.PANDOC ---
PANDEMIC DOCUMENTATION INITIATED: Date: 02/15/2021 Time: 190
[2021-07-13] MEDS: fentaNYL 100 MCG/2 ML Ampul 25 MCG IV (22:12)
[2021-07-14] VITALS (10 sets, daily range): BP systolic 119–160; BP diastolic 48–66; PULSE 58–62; RESP 16–20; TEMP 36.5–37.2; O2SAT 96–100
--- NOTE | 2021-07-14 00:28 | NURSING ---
Called report to ERICA Curiel on PCU.
[2021-07-14 04:31] LABS: Absolute Lymphocyte Count 1.22 X10^3/uL (0.83-4.51); Absolute Neutrophil Count 3.8 X10^3/uL (2.0-7.7); Basophil# 0.04 X10^3/uL; Basophil% 0.7 % (0-1); Eosinophils% 1.6 % (0-5); Hematocrit 35.9 % (37-47); Hemoglobin 11.1 g/dL (12.0-15.0); Lymphocyte # 1.22 X10^3/ul (0.83-4.51); Lymphocyte % 19.8 % (19-41); Mean Corp Hgb Conc 30.9 g/dL (32-36); Mean Corpuscular Hgb 33.4 pg (27.0-32.0); Mean Corpuscular Volume 108.1 fL (81-99); Mean Platelet Vol. 10.9 fl (6.2-12.0); Monocyte# 0.93 X10^3/uL; Monocyte% 15.1 % (0-10); NRBC Flagged by Analyzer 0 % (0-5); Neutrophil # 3.83 X10^3/uL (2.7-7.7); Neutrophil % 62.3 % (47-70); POSITIVE COUNT YES; Platelet Count 66 K/mm3 (150-450); RBC Distribution Width CV 16.1 % (11.6-14.6); RBC Distribution Width SD 63.6 fl (35.1-43.9); Red Blood Count 3.32 M/mm3 (4.2-5.4); White Blood Count 6.2 K/mm3 (4.4-11.0)
[2021-07-14 04:53] LABS: Anion Gap 10 (5-15); BUN 30 mg/dL (7-18); BUN/Creat Ratio 7.3 RATIO (10-20); Calcium,Total 8.5 mg/dL (8.5-10.1); Chloride 94 mmol/L (98-107); Creatinine, Serum 4.11 mg/dL (0.55-1.02); EST Glomerular Filtration Rate 11 mL/min (>60); Est Glom Filt Rate - Afr Amer 14 mL/min (>60); Estimated Creatinine Clearance 18.15 ml/min; Glucose 104 mg/dL (74-106); Potassium 4.8 mmol/L (3.5-5.1); Sodium Level 134 mmol/L (136-145)
[2021-07-14] MEDS: metroNIDAZOLE 500 MG/100 ML BAG 100 MG IV ×2 (05:36→13:02)
[2021-07-14 06:56] LABS: Bedside Glucose 89 mg/dL (70-110)
[2021-07-14] MEDS: Midodrine HCl 5 MG Tablet 10 MG PO ×2 (08:07→10:56)
[2021-07-14] MEDS: Nystatin Powder 15gm Bottle 1 APPLIC TOPICAL ×2 (08:08→10:55)
[2021-07-14] MEDS: 0.9% Saline Lock 10 ML Syringe IV (08:13)
--- NOTE | 2021-07-14 09:26 | PCM.PN.REN ---
Subjective Subjective transferred to floor. BP stable on midodrine. Objective Data Objective Data Vital Signs: Vital Signs Temp Pulse Resp BP Pulse Ox 97.7 F L 61 16 119/66 100 07/14/21 05:46 07/14/21 07:05 07/14/21 05:46 07/14/21 05:46 07/14/21 05:46 Oxygen Flow Rate (L/min) 2 Oxygen Delivery Method Room Air Weight: 97.4 kg Body Mass Index (BMI) 40.8 Intake & Output: Intake and Output for Last 24 Hours 07/12/21 07/13/21 07/14/21 23:59 23:59 23:59 Intake Total 1490 / 1890 1845 / 1845 220 / 220 Output Total 95 / 135 3440 / 3440 Balance 1395 / 1755 -1595 / -1595 220 / 220 Lab / Micro Data Result Diagrams: 07/14/21 04:06 07/14/21 04:06 Labs: Laboratory Results - last 24 hr 07/13/21 11:22: POC Glucose 66 L 07/13/21 15:15: WBC 5.7, RBC 2.97 L, Hgb 10.0 L, Hct 31.9 L, MCV 107.4 H, MCH 33.7 H, MCHC 31.3 L, RDW Std Deviation 63.3 H, RDW Coeff of Kusum 16.3 H, Plt Count 71 L, MPV 10.2, Immature Gran % (Auto) 0.200, Neut % (Auto) 68.9, Lymph % (Auto) 15.0 L, Vermilion % (Auto) 13.3 H, Eos % (Auto) 1.9, Baso % (Auto) 0.7, Absolute Neuts (auto) 3.9, Absolute Lymphs (auto) 0.86, Nucleated RBC % 0, Differential Comment SEE COMMENT, Platelet Estimate MOD DEC, RBC Morphology N CHROM, Hypochromasia RARE, Anisocytosis 1+, Macrocytosis 1+ 07/13/21 16:01: POC Glucose 159 H 07/13/21 21:32: POC Glucose 115 H 07/14/21 04:06: WBC 6.2, RBC 3.32 L, Hgb 11.1 L, Hct 35.9 L, MCV 108.1 H, MCH 33.4 H, MCHC 30.9 L, RDW Std Deviation 63.6 H, RDW Coeff of Kusum 16.1 H, Plt Count 66 L, MPV 10.9, Immature Gran % (Auto) 0.500, Neut % (Auto) 62.3, Lymph % (Auto) 19.8, Vermilion % (Auto) 15.1 H, Eos % (Auto) 1.6, Baso % (Auto) 0.7, Absolute Neuts (auto) 3.8, Absolute Lymphs (auto) 1.22, Nucleated RBC % 0 07/14/21 04:06: Sodium 134 L, Potassium 4.8, Chloride 94 L, Carbon Dioxide 30.0, Anion Gap 10, BUN 30 H, Creatinine 4.11 H, Estim Creat Clear Calc 18.15, Est GFR (MDRD) Af Amer 14 L, Est GFR (MDRD) Non-Af 11 L, BUN/Creatinine Ratio 7.3 L, Glucose 104, Calcium 8.5 07/14/21 06:48: POC Glucose 89 Micro: Microbiology 07/10/21 10:05 Sputum, Induced/Lukens Gram Stain - Final 07/10/21 10:05 Sputum, Induced/Lukens Respiratory Culture - Final Meth. resistant Staph. aureus 07/10/21 06:43 Blood Culture (Wb) - Line Draw Blood Culture - Preliminary No growth in 48 hours. 07/10/21 06:57 Blood Culture (Wb) - Right Wrist Blood Culture - Preliminary No growth in 48 hours. 07/11/21 13:00 Stool Enteric Bacteriology - Final 07/11/21 13:00 Stool C. difficile DNA Amplification - Final 07/11/21 13:00 Stool Stool Lactoferrin - Final 07/10/21 07:20 Urine Catheter - Catheter Legionella Antigen - Final 07/10/21 07:20 Urine Catheter - Catheter Streptococcus pneumoniae Antigen (M - Final 07/10/21 03:25 Nasal Secretion SARS-CoV-2 Antigen (Rapid) - Final Physical Exam Const no apparent distress Constitutional Narrative: somnolent Resp clear to auscultation bilaterally Cardio regular rate Assessment & Plan Assessment/Plan (1) ESRD (end stage renal disease) on dialysis: PLAN: Hemodialysis Monday, , Monday. (2) Acute hyperkalemia: PLAN: resolved with dialysis (3) Shock: PLAN: off pressors cultures no growth so far. 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 Check echocardiogram to evaluate for embolic event. (7) Iron deficiency anemia: PLAN: Hemoglobin stable on IV iron and TEMO with dialysis
[2021-07-14] MEDS: Insulin Lispro 100 UNIT/ML INSULN.PEN SC (10:55)
--- NOTE | 2021-07-14 11:20 | CASEMGMT ---
SW was informed patient would like to talk with SW for placement. SW met with patient. Introduced self and role at [facility]. Patient said she [facility] She uses [facility] to take her to dialysis. ANNIE called Sandra at [facility] regarding referral and also faxed information. Await response. Katelynn ANDRADE
[2021-07-14 11:21] LABS: Bedside Glucose 238 mg/dL (70-110)
--- NOTE | 2021-07-14 12:20 | CASEMGMT ---
ANNIE received a call from [facility] and they can accept patient. ANNIE notified patient and also that she will go today. ANNIE notified YUMIKO Simon. Katelynn Bui MSW [place]
[2021-07-14] MEDS: oxyCODONE 5 MG Tablet PO (12:53)
--- NOTE | 2021-07-14 13:50 | PCM.TXEXTCAR ---
Diet 07/12/21 11:29 Diet: Consistent Carb - Calorie Controlled Food consistency:: Regular Liquid Consistency:: Regular/Thin Dietary Modifications:: Sodium Restricted Potassium Restricted Phosphorus Restricted Is pt able to select menu?: No Fluid restriction:: 1500 mL How many daily calories?: 1600 calorie Wound(s) Right lower leg: Wound Type: cluster of stasis ulcers Dressing Change: Adaptic Bilat feet/toes: Wound Type: necrotic areas Generalized: Wound Type: scabs Therapies Weight Bearing: Partial weight bearing Physical Therapy: Eval and Treat Occupational Therapy: Eval and Treat Problem/Diagnosis (1) ESRD (end stage renal disease) on dialysis: Status: Acute (2) Acute hyperkalemia: Status: Acute (3) Shock: Status: Acute (4) Encephalopathy acute: Status: Acute (5) DM type 2 (diabetes mellitus, type 2): Status: Acute (6) Thrombocytopenia: Status: Acute (7) Iron deficiency anemia: Status: Acute Allergies/Procedures Done in Hospital Allergies Penicillins Allergy (Severe, Verified 07/10/21 02:26) Anaphylaxis ciprofloxacin [From Cipro] Allergy (Verified 07/10/21 02:26) Rash codeine Allergy (Verified 07/10/21 02:26) Shortness of breath Type of Care/Length of Stay Estimated LOS: Convalescent Care Less Than 30 days Type of Care Needed: Skilled Rehab Potential: Good Prognosis: Good Additional Orders/Day of Discharge Day of Discharge: 07/14/21 Dietary and Speech Recommendations Dietitian Recommendations/Changes: Will adjust diet to 1600 calorie/consistent carbohydrate; sodium-restricted; phos-restricted; potassium-restricted with 1500ml FR. Nepro oral nutrition supplement as needed if PO fails at meals. Diet education as indicated prior to d/c. Discharge Plan Admission Admit Date/Time: 07/10/21 04:50 Primary Reason for Your Visit: Confusion Attending Provider: Man Negrete Primary Care Provider: Bailey Toribio Consulting Providers: Rigo Rushing ; Christine Steward Discharge Orders/Prescriptions Prescriptions: New doxycycline monohydrate 100 mg capsule 100 mg PO BID Qty: 10 RF: 0 Continued atorvastatin 10 MG tablet 10 mg PO DAILY RF: 0 Vimpat 100 mg tablet 100 mg PO BID RF: 0 aspirin 81 mg tablet,delayed release (DR/EC) 81 mg PO DAILY RF: 0 B complex-vitamin C-folic acid 1 mg Tablet 1 tab PO DAILY RF: 0 trazodone 50 mg tablet 25 mg PO QHS RF: 0 gabapentin 100 mg capsule 200 mg PO BID RF: 0 calcium acetate(phosphat bind) 667 mg Capsule 667 mg PO TID RF: 0 insulin aspart U-100 [Novolog Flexpen U-100 Insulin] 100 unit/mL (3 mL) Insulin Pen 3 unit SUBCUT TID RF: 0 Lantus Solostar U-100 Insulin 100 unit/mL (3 mL) insulin pen 20 unit subcut BID RF: 0 omeprazole 20 mg Capsule,Delayed Release(Dr/Ec) 20 mg PO DAILY RF: 0 Referrals / Follow Up: Bailey Toribio MD [Primary Care Provider] - Within 2 Weeks Disposition Disposition (needs filled in before D/C Order can be placed): Longterm Facility
--- NOTE | 2021-07-14 14:11 | PHA.DC.MR ---
Addendum entered and electronically signed by Jazmine Castellano 07/14/21 14:48: Home Medications atorvastatin 10 mg PO DAILY 09/06/19 Vimpat 100 mg PO BID 02/22/21 B complex-vitamin C-folic acid 1 tab PO DAILY 03/01/21 aspirin 81 mg PO DAILY 03/01/21 gabapentin 200 mg PO BID 04/30/21 trazodone 25 mg PO QHS 04/30/21 Lantus Solostar U-100 Insulin 20 unit SUBCUT BID 06/18/21 calcium acetate(phosphat bind) 667 mg PO TID 06/18/21 insulin aspart U-100 [Novolog Flexpen U-100 Insulin] 3 unit SUBCUT TID 06/18/21 omeprazole 20 mg PO DAILY 06/18/21 doxycycline monohydrate 100 mg PO BID #10 cap 07/14/21 midodrine 10 mg PO TIDCM #90 tab 07/14/21 Updated medication list. Midodrine added. Original Note: Pharmacy Service has performed discharge medication reconciliation for this patient. The patient's discharge medication list was reviewed for discrepancies and discrepancies were resolved. This [facility] spoke to YUMIKO Liang regarding midodrine. Pt has been receiving midodrine 10mg PO TIDCM since 07/11. Asked Alfred if this should be continued. He will confer with Dr. Steward whom manages the patient's dialysis to see if pt should be continued on midodrine at SNF. Home Medications atorvastatin 10 mg PO DAILY 09/06/19 Vimpat 100 mg PO BID 02/22/21 B complex-vitamin C-folic acid 1 tab PO DAILY 03/01/21 aspirin 81 mg PO DAILY 03/01/21 gabapentin 200 mg PO BID 04/30/21 trazodone 25 mg PO QHS 04/30/21 Lantus Solostar U-100 Insulin 20 unit SUBCUT BID 06/18/21 calcium acetate(phosphat bind) 667 mg PO TID 06/18/21 insulin aspart U-100 [Novolog Flexpen U-100 Insulin] 3 unit SUBCUT TID 06/18/21 omeprazole 20 mg PO DAILY 06/18/21 doxycycline monohydrate 100 mg PO BID #10 cap 07/14/21
--- NOTE | 2021-07-14 15:27 | CASEMGMT ---
ANNIE arranged for patient to get picked up at 1700 via cot by [facility]. ANNIE faxed orders and pecan picker time to [facility]. SW notified RN, auditor in charge, and patient. Plan: d/c to [facility] at [place] under skilled level of care on a convalescent stay. [facility] will transport via cot. Katelynn ANDRADE
--- NOTE | 2021-07-14 15:35 | PCM.DC.SUM ---
Documented by User: Alfred CALDERON 07/14/21 15:43 Providers Date of Admission: 07/10/21 Date of Discharge: 07/14/21 Primary Care Physician: Dr. Bailey Toribio MD Consultations 07/10/21 08:12 Consult: [employer] Supervisor / Pulmonary Medicine Routine Consulting Provider: Rigo Rushing Reason for Consult: critical care EMERGENT Consult: No Notified: Yes Date Notified: 07/10/21 Time Notified: 05:00 Method of Notification: Verbal Method of Consult:: In-Person Consult: Nephrology Routine Consulting Provider: Christine Steward Reason for Consult: Hyperkalemia EMERGENT Consult: No Notified: Yes Date Notified: 07/10/21 Time Notified: 08:37 Method of Notification: Answering Service Consult: Onc/Wound/press set up person Routine Comment: Reason for Consult:: R wolfe wound 07/10/21 20:12 Consult: Onc/Wound/press set up person Routine Comment: Ulcers to right lower extremity Reason For Visit: HYPERKALEMIA Diagnosis Discharge Diagnosis (1) ESRD (end stage renal disease) on dialysis: Status: Acute Code(s): N18.6 - End stage renal disease; Z99.2 - Dependence on renal dialysis (2) Acute hyperkalemia: Status: Acute Code(s): E87.5 - Hyperkalemia (3) Shock: Status: Acute Code(s): R57.9 - Shock, unspecified (4) Encephalopathy acute: Status: Acute Code(s): G93.40 - Encephalopathy, unspecified (5) DM type 2 (diabetes mellitus, type 2): Status: Acute Code(s): E11.9 - Type 2 diabetes mellitus without complications (6) Thrombocytopenia: Status: Acute Code(s): D69.6 - Thrombocytopenia, unspecified (7) Iron deficiency anemia: Status: Acute Code(s): D50.9 - Iron deficiency anemia, unspecified Medications at Discharge Home Medications atorvastatin 10 mg PO DAILY 09/06/19 Vimpat 100 mg PO BID 02/22/21 B complex-vitamin C-folic acid 1 tab PO DAILY 03/01/21 aspirin 81 mg PO DAILY 03/01/21 gabapentin 200 mg PO BID 04/30/21 trazodone 25 mg PO QHS 04/30/21 Lantus Solostar U-100 Insulin 20 unit SUBCUT BID 12/17/21 calcium acetate(phosphat bind) 667 mg PO TID 06/18/21 insulin aspart U-100 [Novolog Flexpen U-100 Insulin] 3 unit SUBCUT TID 06/18/21 omeprazole 20 mg PO DAILY 06/18/21 doxycycline monohydrate 100 mg PO BID #10 cap 07/14/21 midodrine 10 mg PO TIDCM #90 tab 07/14/21 Hospital Course Procedures 2-D Echocardiogram, Dialysis, Intubation and Transthoracic echo Summary of Care Provided Minutes Spent on Discharge: 35 Hospital Course: Patient is a 75-year-old female who was admitted to [facility] on 07/10/2021 for evaluation and management of acute encephalopathy with septic shock and hypotension. Patient was admitted to the ICU for administration of Levophed due to hypotension and due to severity of symptoms. Patient was subsequently discharged from the ICU and stepdown to the progressive care unit on 07/11/2021. Given the patient's end-stage renal disease patient was dialyzed by nephrology. Source of patient's encephalopathy was believed to be the result of pneumonia, sputum cultures grew MRSA. Patient was treated with vancomycin and Zosyn during admission, for which she saw improvement on. [facility] doxycycline and she was also provided a prescription of midodrine for ongoing diastolic hypotension. Patient is to follow-up with primary care provider in the next 2 weeks. Physical Exam Narrative Patient is a 75-year-old female comfortably resting in bed, alert and orient x3. Patient denies development of any new symptoms overnight. Does not appear in acute distress. Const alert, oriented x3 and no apparent distress HEENT normocephalic, head/scalp atraumatic and hearing grossly normal bilaterally Eyes PERRL, EOMs intact bilaterally and conjunctivae normal Neck no lymphadenopathy, supple and no JVD Resp normal respiratory effort, no retractions, no use of accessory muscles and clear to auscultation bilaterally Cardio regular rate, regular rhythm, no murmurs and no JVD GI normal to inspection, nondistended, normoactive bowel sounds, soft to palpation and non-tender Extremity normal to inspection, full ROM and no clubbing, cyanosis or edema Skin no rashes or lesions noted, no wounds and skin turgor normal Neuro CN's II-XII intact bilaterally Psych affect normal Weight / BMI Weight Weight: 214 lb 11.684 oz Body Mass Index (BMI) 40.8 ABG / Lab / Microbiology Data Result Diagrams: 07/14/21 04:06 07/14/21 04:06 Laboratory: Laboratory Results - last 24 hr 07/13/21 15:15: WBC 5.7, RBC 2.97 L, Hgb 10.0 L, Hct 31.9 L, MCV 107.4 H, MCH 33.7 H, MCHC 31.3 L, RDW Std Deviation 63.3 H, RDW Coeff of [place] 16.3 H, Plt Count 71 L, MPV 10.2, Immature Gran % (Auto) 0.200, Neut % (Auto) 68.9, Lymph % (Auto) 15.0 L, [place] % (Auto) 13.3 H, Eos % (Auto) 1.9, Baso % (Auto) 0.7, Absolute Neuts (auto) 3.9, Absolute Lymphs (auto) 0.86, Nucleated RBC % 0, Differential Comment SEE COMMENT, Platelet Estimate MOD DEC, RBC Morphology N CHROM, Hypochromasia RARE, Anisocytosis 1+, Macrocytosis 1+ 07/13/21 16:01: POC Glucose 159 H 07/13/21 21:32: POC Glucose 115 H 07/14/21 04:06: WBC 6.2, RBC 3.32 L, Hgb 11.1 L, Hct 35.9 L, MCV 108.1 H, MCH 33.4 H, MCHC 30.9 L, RDW Std Deviation 63.6 H, RDW Coeff of [place] 16.1 H, Plt Count 66 L, MPV 10.9, Immature Gran % (Auto) 0.500, Neut % (Auto) 62.3, Lymph % (Auto) 19.8, [place] % (Auto) 15.1 H, Eos % (Auto) 1.6, Baso % (Auto) 0.7, Absolute Neuts (auto) 3.8, Absolute Lymphs (auto) 1.22, Nucleated RBC % 0 07/14/21 04:06: Sodium 134 L, Potassium 4.8, Chloride 94 L, Carbon Dioxide 30.0, Anion Gap 10, BUN 30 H, Creatinine 4.11 H, Estim Creat Clear Calc 18.15, Est GFR (MDRD) Af Amer 14 L, Est GFR (MDRD) Non-Af 11 L, BUN/Creatinine Ratio 7.3 L, Glucose 104, Calcium 8.5 07/14/21 06:48: POC Glucose 89 07/14/21 10:51: POC Glucose 238 H Microbiology: Microbiology 07/10/21 10:05 Sputum, Induced/[place] Gram Stain - Final 07/10/21 10:05 Sputum, Induced/[place] Respiratory Culture - Final Meth. resistant Staph. aureus 07/10/21 06:43 Blood Culture (Wb) - Line Draw Blood Culture - Preliminary No growth in 48 hours. 07/10/21 06:57 Blood Culture (Wb) - Right Wrist Blood Culture - Preliminary No growth in 48 hours. 07/11/21 13:00 Stool Enteric Bacteriology - Final 07/11/21 13:00 Stool C. difficile DNA Amplification - Final 07/11/21 13:00 Stool Stool Lactoferrin - Final 07/10/21 07:20 Urine Catheter - Catheter Legionella Antigen - Final 07/10/21 07:20 Urine Catheter - Catheter Streptococcus pneumoniae Antigen (M - Final 07/10/21 03:25 Nasal Secretion SARS-CoV-2 Antigen (Rapid) - Final Meaningful Use Info Meaningful Use Diagnoses (Choose all that apply): None applicable Discharge Plan Admission Admit Date/Time: 07/10/21 04:50 Primary Reason for Your Visit: Confusion Attending Provider: Man Negrete Primary Care Provider: Bailey Toribio Consulting Providers: Rigo Rushing ; Christine Steward Discharge Orders/Prescriptions Prescriptions: New doxycycline monohydrate 100 mg capsule 100 mg PO BID Qty: 10 RF: 0 midodrine 5 mg Tablet 10 mg PO TIDCM Qty: 90 RF: 0 Continued atorvastatin 10 MG tablet 10 mg PO DAILY RF: 0 Vimpat 100 mg tablet 100 mg PO BID RF: 0 aspirin 81 mg tablet,delayed release (DR/EC) 81 mg PO DAILY RF: 0 B complex-vitamin C-folic acid 1 mg Tablet 1 tab PO DAILY RF: 0 trazodone 50 mg tablet 25 mg PO QHS RF: 0 gabapentin 100 mg capsule 200 mg PO BID RF: 0 calcium acetate(phosphat bind) 667 mg Capsule 667 mg PO TID RF: 0 insulin aspart U-100 [Novolog Flexpen U-100 Insulin] 100 unit/mL (3 mL) Insulin Pen 3 unit SUBCUT TID RF: 0 Lantus Solostar U-100 Insulin 100 unit/mL (3 mL) insulin pen 20 unit subcut BID RF: 0 omeprazole 20 mg Capsule,Delayed Release(Dr/Ec) 20 mg PO DAILY RF: 0 Referrals / Follow Up: Bailey Toribio MD [Primary Care Provider] - Within 2 Weeks Christine Steward DO [STAFF PHYSICIAN] - Within 2 Weeks (For follow up. ) Disposition Disposition (needs filled in before D/C Order can be placed): Retirement Facility Documented by User: Dr. Man Negrete MD 07/14/21 15:56 Providers Date of Admission: 07/10/21 Reason For Visit: HYPERKALEMIA Medications at Discharge Home Medications atorvastatin 10 mg PO DAILY 09/06/19 Vimpat 100 mg PO BID 02/22/21 B complex-vitamin C-folic acid 1 tab PO DAILY 03/01/21 aspirin 81 mg PO DAILY 03/01/21 gabapentin 200 mg PO BID 04/30/21 trazodone 25 mg PO QHS 04/30/21 Lantus Solostar U-100 Insulin 20 unit SUBCUT BID 06/18/21 calcium acetate(phosphat bind) 667 mg PO TID 06/18/21 insulin aspart U-100 [Novolog Flexpen U-100 Insulin] 3 unit SUBCUT TID 06/18/21 omeprazole 20 mg PO DAILY 06/18/21 doxycycline monohydrate 100 mg PO BID #10 cap 07/14/21 midodrine 10 mg PO TIDCM #90 tab 07/14/21 Hospital Course Summary of Care Provided Minutes Spent on Discharge: 35 Hospital Course: This patient was seen in conjunction with Alfred Liang PA-C. I have independently interviewed and examined the patient and reviewed pertinent historical, laboratory, and other data. Please refer to Alfred Liang PA-C's note for details of this patient's presentation, findings, and recommendations. I have reviewed Alfred Liang PA-C's note and concur with documented findings. In brief, Patient is a 75-year-old lady with underlying history of end-stage renal disease presented to the emergency department with 2-week history of diarrhea and progressive generalized weakness having missed 1 session of dialysis. An assessment of suspected septic shock made admitted to the intensive care unit for further management Physical Examination: GENERAL: cooperative HEENT: Atraumatic; EYES; Anicteric, Normal Conjunctiva NECK; supple, normal thyroid, RESPIRATORY: Diminished to auscultation CARDIOVASCULAR: Regular S1 S2, GI: soft, normoactive bowel sounds, : No Renal angle tenderness; EXTREMITIES: No edema, no clubbing, MUSCULOSKELETAL: no muscle waisting NEURO: Awake; no lateralizing signs. SKIN: No Rash PSYCH; Flat affect Assessment: 1. Septic shock secondary to MRSA pneumonia 2. Acute metabolic encephalopathy 3. Hyperkalemia 4. End-stage renal disease 5. Bradycardia 6. Hyponatremia 7. Anemia of end-stage renal disease 8. Chronic congestive heart failure with preserved ejection fraction 9. Thrombocytopenia 10. Diabetes mellitus type 2 11. Seizure disorder 12. Class III obesity with BMI of 42.2 13. Essential hypertension 14. DVT prophylax Hospital course; as documented above Total time spent on entire discharge process by both myself and Alfred Liang PA-C's; 35 minutes (20 minutes of which was spent by myself) ABG / Lab / Microbiology Data Result Diagrams: 07/14/21 04:06 07/14/21 04:06 Discharge Plan Admission Admit Date/Time: 07/10/21 04:50 Primary Reason for Your Visit: Confusion Attending Provider: Man Negrete Primary Care Provider: Bailey Toribio Consulting Providers: Rigo Rushing ; Christine Steward Discharge Orders/Prescriptions Prescriptions: New doxycycline monohydrate 100 mg capsule 100 mg PO BID Qty: 10 RF: 0 midodrine 5 mg Tablet 10 mg PO TIDCM Qty: 90 RF: 0 Continued atorvastatin 10 MG tablet 10 mg PO DAILY RF: 0 Vimpat 100 mg tablet 100 mg PO BID RF: 0 aspirin 81 mg tablet,delayed release (DR/EC) 81 mg PO DAILY RF: 0 B complex-vitamin C-folic acid 1 mg Tablet 1 tab PO DAILY RF: 0 trazodone 50 mg tablet 25 mg PO QHS RF: 0 gabapentin 100 mg capsule 200 mg PO BID RF: 0 calcium acetate(phosphat bind) 667 mg Capsule 667 mg PO TID RF: 0 insulin aspart U-100 [Novolog Flexpen U-100 Insulin] 100 unit/mL (3 mL) Insulin Pen 3 unit SUBCUT TID RF: 0 Lantus Solostar U-100 Insulin 100 unit/mL (3 mL) insulin pen 20 unit subcut BID RF: 0 omeprazole 20 mg Capsule,Delayed Release(Dr/Ec) 20 mg PO DAILY RF: 0 Referrals / Follow Up: Bailey Toribio MD [Primary Care Provider] - Within 2 Weeks Christine Steward DO [STAFF PHYSICIAN] - Within 2 Weeks (For follow up. ) Disposition Disposition (needs filled in before D/C Order can be placed): Retirement Facility Charges/Coding Visit Charges Inpatient E&M: 36529 Disch Hosp Hospital Course Consultations Consultations: Consultations 07/10/21 08:12 Consult: Metal Furniture [employer] Supervisor / Pulmonary Medicine Routine Consulting Provider: Rigo Rushing Reason for Consult: critical care EMERGENT Consult: No Notified: Yes Date Notified: 07/10/21 Time Notified: 05:00 Method of Notification: Verbal Method of Consult:: In-Person Consult: Nephrology Routine Consulting Provider: Christine Steward Reason for Consult: Hyperkalemia EMERGENT Consult: No Notified: Yes Date Notified: 07/10/21 Time Notified: 08:37 Method of Notification: Answering Service Consult: Onc/Wound/press set up person Routine Comment: Reason for Consult:: R wolfe wound 07/10/21 20:12 Consult: Onc/Wound/press set up person Routine Comment: Ulcers to right lower extremity
[2021-07-14 17:25] LABS: Bedside Glucose 138 mg/dL (70-110)
== END 2021-07-14 17:54 | disposition skilled nursing facility (03) | DRG 871 ==
LOC: ED 05:05 → ICU 05:37 → PCU 07-14 00:32
PROVIDERS: Internal Medicine; Internal Medicine Nephrology; Admitting Provider Hospitalist; Emergency Provider Emergency Medicine; PCP Internal Medicine; Visit Provider Internal Medicine
DX: A41.02 Sepsis due to Methicillin resistant Staphylococcus aureus (principal); J15.212 Pneumonia due to Methicillin resistant Staphylococcus aureus; K72.00 Acute and subacute hepatic failure without coma; R65.21 Severe sepsis with septic shock; G93.41 Metabolic encephalopathy; N18.6 End stage renal disease; D61.818 Other pancytopenia; E72.20 Disorder of urea cycle metabolism, unspecified; I13.2 Hypertensive heart and chronic kidney disease with heart failure and with stage 5 chronic kidney disease, or end stage renal disease; J44.0 Chronic obstructive pulmonary disease with (acute) lower respiratory infection; L97.811 Non-pressure chronic ulcer of other part of right lower leg limited to breakdown of skin; Z68.41 Body mass index [BMI] 40.0-44.9, adult; I50.32 Chronic diastolic (congestive) heart failure; E87.1 Hypo-osmolality and hyponatremia; E11.649 Type 2 diabetes mellitus with hypoglycemia without coma; G40.909 Epilepsy, unspecified, not intractable, without status epilepticus; E11.622 Type 2 diabetes mellitus with other skin ulcer; Z79.4 Long term (current) use of insulin; E11.42 Type 2 diabetes mellitus with diabetic polyneuropathy; I50.812 Chronic right heart failure; E66.01 Morbid (severe) obesity due to excess calories; Z99.2 Dependence on renal dialysis; E11.22 Type 2 diabetes mellitus with diabetic chronic kidney disease; I48.91 Unspecified atrial fibrillation; F31.9 Bipolar disorder, unspecified; F33.41 Major depressive disorder, recurrent, in partial remission; F44.81 Dissociative identity disorder; M06.9 Rheumatoid arthritis, unspecified; D63.1 Anemia in chronic kidney disease; R19.7 Diarrhea, unspecified; D50.9 Iron deficiency anemia, unspecified; E78.5 Hyperlipidemia, unspecified; G47.33 Obstructive sleep apnea (adult) (pediatric); E87.5 Hyperkalemia; I25.2 Old myocardial infarction; Z87.891 Personal history of nicotine dependence; Z79.82 Long term (current) use of aspirin; F41.1 Generalized anxiety disorder; Z86.73 Personal history of transient ischemic attack (TIA), and cerebral infarction without residual deficits; Z86.14 Personal history of Methicillin resistant Staphylococcus aureus infection; Z79.899 Other long term (current) drug therapy; Z20.822 Contact with and (suspected) exposure to COVID-19; Z88.0 Allergy status to penicillin
CPT/HCPCS: 31720; 36415; 36600; 71045; 73620; 74176; 80048; 80053; 80069; 80076; 80202; 82140; 82803; 82962; 83605; 83630; 83735; 84100; 84132; 84145; 84443; 85025; 85610; 85730; 87040; 87070; 87077; 87186; 87205; 87426; 87449; 87493; 87506; 87641; 90937; 93005; 93306; 97110; 97162; 97165; 97530; 97535; 97802; 99285; J7040; J7050; Q9957; A4216; C1751; C8929; C9254; G0257; J2405; J3490; Q5106

== ENCOUNTER 2021-08-15 07:35 | Inpatient (IN) | payer MEDICARE, MEDICAID, SELFPAY ==
[2021-08-15 07:38] VITALS: BP 107/37; PULSE 65; RESP 16; TEMP 36.3; O2SAT 92; BMI 34.8
[2021-08-15 07:45] LABS: Bedside Glucose 65 mg/dL (70-110)
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
[2021-08-15 08:13] LABS: Absolute Lymphocyte Count 0.79 X10^3/uL (0.83-4.51); Absolute Neutrophil Count 5.4 X10^3/uL (2.0-7.7); Basophil# 0.03 X10^3/uL; Basophil% 0.4 % (0-1); Eosinophil# 0.13 X10^3/uL; Eosinophils% 1.8 % (0-5); Hematocrit 32.6 % (37-47); Hemoglobin 10.1 g/dL (12.0-15.0); Lymphocyte # 0.79 X10^3/ul (0.83-4.51); Mean Corpuscular Hgb 32.3 pg (27.0-32.0); Mean Corpuscular Volume 104.2 fL (81-99); Mean Platelet Vol. 11.4 fl (6.2-12.0); Monocyte# 0.78 X10^3/uL; Monocyte% 10.9 % (0-10); NRBC Flagged by Analyzer 0 % (0-5); Neutrophil # 5.42 X10^3/uL (2.7-7.7); Neutrophil % 75.6 % (47-70); POSITIVE COUNT YES; Platelet Count 71 K/mm3 (150-450); RBC Distribution Width CV 15.1 % (11.6-14.6); RBC Distribution Width SD 57.3 fl (35.1-43.9); Red Blood Count 3.13 M/mm3 (4.2-5.4); White Blood Count 7.2 K/mm3 (4.4-11.0)
[2021-08-15 08:25] LABS: ALB/GLOB Ratio 0.7 RATIO (0.9-2.4); AST(SGOT) 39 U/L (15-37); Alanine Aminotransfer ALT/SGPT 44 U/L (13-56); Albumin, Serum 2.9 g/dL (3.2-5.0); Alkaline Phosphatase 137 U/L (45-117); Anion Gap 7 (5-15); BUN 32 mg/dL (7-18); BUN/Creat Ratio 8.8 RATIO (10-20); Calcium,Total 8.7 mg/dL (8.5-10.1); Chloride 99 mmol/L (98-107); Creatinine, Serum 3.63 mg/dL (0.55-1.02); EST Glomerular Filtration Rate 13 mL/min (>60); Est Glom Filt Rate - Afr Amer 16 mL/min (>60); Estimated Creatinine Clearance 11.56 ml/min; Globulin 4.3 g/dL (2.2-4.2); Glucose 62 mg/dL (74-106); Potassium 3.6 mmol/L (3.5-5.1); Protein, Total 7.2 g/dL (6.4-8.2); Sodium Level 136 mmol/L (136-145)
[2021-08-15] MEDS: Dextrose 10%-Water 250 ML 999 ML IV (08:28)
[2021-08-15] MEDS: 0.9% Normal Saline 1,000 ML 150 ML IV (08:30)
[2021-08-15 09:05] LABS: Bedside Glucose 124 mg/dL (70-110)
[2021-08-15 09:56] LABS: Bedside Glucose 102 mg/dL (70-110)
[2021-08-15 10:56] LABS: Bedside Glucose 85 mg/dL (70-110)
--- NOTE | 2021-08-15 10:57 | ED.RN ---
Dr Gaines updated on pt's blood sugar and drowsiness. Meal given at this time.
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
[2021-08-15 11:32] VITALS: BP 146/91; PULSE 72; RESP 18; TEMP 36.6; O2SAT 94
[2021-08-15] MEDS: Dextrose 5%/0.9% NaCl 1,000 ML 75 ML IV (12:39)
[2021-08-15 12:43] VITALS: BP 104/40; PULSE 64; RESP 18; TEMP 36.7; O2SAT 100
[2021-08-15 12:54] VITALS: BMI 39.6
[2021-08-15 13:28] VITALS: O2SAT 99
[2021-08-15] MEDS: Insulin Lispro 100 UNIT/ML INSULN.PEN SC ×3 (14:45→21:33)
[2021-08-15 15:01] LABS: Bedside Glucose 211 mg/dL (70-110)
[2021-08-15 16:15] VITALS: PULSE 69
[2021-08-15 18:25] LABS: Bedside Glucose 314 mg/dL (70-110)
[2021-08-15] MEDS: Acetaminophen 325 MG Tablet 650 MG PO (18:28)
[2021-08-15 21:41] LABS: Bedside Glucose 324 mg/dL (70-110)
[2021-08-15 22:00] VITALS: PULSE 71
[2021-08-15 22:15] LABS: Bedside Glucose 289 mg/dL (70-110)
[2021-08-16] VITALS (11 sets, daily range): BP systolic 99–128; BP diastolic 43–56; PULSE 66–71; RESP 16–18; TEMP 36.8–37; O2SAT 95–97
[2021-08-16] MEDS: Dextrose 5%/0.9% NaCl 1,000 ML 75 ML IV (01:41)
[2021-08-16] MEDS: Insulin Lispro 100 UNIT/ML INSULN.PEN SC ×5 (02:38→21:29)
[2021-08-16 05:51] LABS: Bedside Glucose 233 mg/dL (70-110)
[2021-08-16 06:16] LABS: Absolute Lymphocyte Count 0.77 X10^3/uL (0.83-4.51); Absolute Neutrophil Count 5.5 X10^3/uL (2.0-7.7); Basophil# 0.03 X10^3/uL; Basophil% 0.4 % (0-1); Eosinophil# 0.11 X10^3/uL; Eosinophils% 1.6 % (0-5); Hematocrit 32.7 % (37-47); Hemoglobin 10.5 g/dL (12.0-15.0); Lymphocyte # 0.77 X10^3/ul (0.83-4.51); Lymphocyte % 10.9 % (19-41); Mean Corp Hgb Conc 32.1 g/dL (32-36); Mean Corpuscular Volume 102.8 fL (81-99); Mean Platelet Vol. 11.2 fl (6.2-12.0); Monocyte# 0.66 X10^3/uL; Monocyte% 9.3 % (0-10); NRBC Flagged by Analyzer 0 % (0-5); Neutrophil # 5.46 X10^3/uL (2.7-7.7); Neutrophil % 77.4 % (47-70); POSITIVE COUNT YES; Platelet Count 64 K/mm3 (150-450); RBC Distribution Width CV 15.2 % (11.6-14.6); Red Blood Count 3.18 M/mm3 (4.2-5.4); White Blood Count 7.1 K/mm3 (4.4-11.0)
[2021-08-16 06:31] LABS: Anion Gap 8 (5-15); BUN 46 mg/dL (7-18); BUN/Creat Ratio 10.3 RATIO (10-20); Calcium,Total 8.5 mg/dL (8.5-10.1); Chloride 97 mmol/L (98-107); Creatinine, Serum 4.47 mg/dL (0.55-1.02); EST Glomerular Filtration Rate 10 mL/min (>60); Est Glom Filt Rate - Afr Amer 12 mL/min (>60); Estimated Creatinine Clearance 7.81 ml/min; Glucose 233 mg/dL (74-106); Potassium 4.6 mmol/L (3.5-5.1); Sodium Level 131 mmol/L (136-145)
[2021-08-16 07:11] LABS: Bedside Glucose 228 mg/dL (70-110)
--- NOTE | 2021-08-16 09:15 | CASEMGMT ---
Social Work Note ANNIE received message from pt's [facility] CM Shellie Widows requesting update on pt. Shellie states that pt has dialysis tomorrow. Shellie states that pt never got skilled HHC through [facility] last time and was requesting that they be arranged for when pt returns home this hospital visit. ANNIE reviewed chart. On pt's last visit, pt went to [facility] [place]. Shellie direct number [phone]. ANNIE to continue to follow. 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
[2021-08-16] MEDS: Acetaminophen 325 MG Tablet 650 MG PO ×2 (09:55→17:00)
[2021-08-16 10:01] LABS: Bedside Glucose 295 mg/dL (70-110)
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
--- NOTE | 2021-08-16 12:40 | CASEMGMT ---
Addendum entered by Lisa Sierra 08/16/21 14:29: Pt reports she has a BGM with the supplies. She checks her blood sugar 4x/day. Pt states she also has insulin and supplies. Original Note: RN CM Face to Face with patient for initial transition planning/care coordination assessment. RN CM introduced self and role at [facility]. Patient sitting in chair, alert and oriented. Patient willing to participate in assessment and is able to answer all questions appropriately. Care providers, pharmacy, and demographics verified. Patient wishes to discharge home and is interested in HHC at discharge. She states her CM from her insurance was working on this already. She would like [facility]. Patient states she has no further needs or concerns at this time. CM to follow for discharge planning needs that may arise. PCP: Malu Specialists: Bin business case analyst; Paz Preferred Pharmacy: [facility] [place], [facility] retail while inpt Insurance: [facility], [facility] Prescription Benefit: yes Living Will/HPOA: yes, daughter Beverly Butler LNOK: , daughter Living Arrangements: Patient lives with in a single story home with ramp to enter the home. Patient states she is independent at home for self care, assists with household Transportation: DME/HHC/SNF: Patient states she has cane, walker, rollator, wheelchair, and grab bars at home. Pt has an aide from [place] M/W/F 9-noon. Patient states she has had [facility] HHC in the past. Patient has previously been to [place] and [facility]. Patient goes to [facility] for outpatient HD on TTS 1000. Disposition Plan: Patient to discharge home with HHC, family support, and follow-up plan in place. TC kathy Livingston at [facility], she states pt CM from insurance called Monday with referral but no orders received. She will review referral and notify this RN CM if able to accept.
--- NOTE | 2021-08-16 15:24 | PN.HOSP_ITS ---
Subjective Subjective Feels well. Feels weak. Objective Data Objective Data Vital Signs: Vital Signs Temp Pulse Resp BP Pulse Ox 36.9 C 66 16 99/43 L 95 08/16/21 14:48 08/16/21 14:48 08/16/21 14:48 08/16/21 14:48 08/16/21 14:48 Oxygen Flow Rate (L/min) 2 Oxygen Delivery Method Room Air Weight: 92.1 kg Body Mass Index (BMI) 39.6 Intake & Output: Intake and Output for Last 24 Hours 08/14/21 08/15/21 08/16/21 23:59 23:59 23:59 Intake Total 1150 / 1150 2050.0 / 2050.0 Balance 1150 / 1150 2050.0 / 2050.0 Lab / Micro Data Result Diagrams: 08/16/21 06:00 08/16/21 06:00 Labs: Laboratory Results - last 24 hr 08/15/21 18:17: POC Glucose 314 H 08/15/21 21:31: POC Glucose 324 H 08/15/21 22:11: POC Glucose 289 H 08/16/21 02:37: POC Glucose 233 H 08/16/21 06:00: WBC 7.1, RBC 3.18 L, Hgb 10.5 L, Hct 32.7 L, MCV 102.8 H, MCH 33.0 H, MCHC 32.1, RDW Std Deviation 57.0 H, RDW Coeff of Kusum 15.2 H, Plt Count 64 L, MPV 11.2, Immature Gran % (Auto) 0.400, Neut % (Auto) 77.4 H, Lymph % (Auto) 10.9 L, [place] % (Auto) 9.3, Eos % (Auto) 1.6, Baso % (Auto) 0.4, Absolute Neuts (auto) 5.5, Absolute Lymphs (auto) 0.77 L, Nucleated RBC % 0 08/16/21 06:00: Sodium 131 L, Potassium 4.6, Chloride 97 L, Carbon Dioxide 26.0, Anion Gap 8, BUN 46 H, Creatinine 4.47 H, Estim Creat Clear Calc 7.81, Est GFR (MDRD) Af Amer 12 L, Est GFR (MDRD) Non-Af 10 L, BUN/Creatinine Ratio 10.3, Glucose 233 H, Calcium 8.5 08/16/21 06:20: POC Glucose 228 H 08/16/21 09:53: POC Glucose 295 H Physical Exam Resp normal respiratory effort, no retractions, no use of accessory muscles and clear to auscultation bilaterally Cardio regular rate, regular rhythm, S1 normal heart sound and S2 normal heart sound GI normal to inspection, nondistended, normoactive bowel sounds, soft to palpation, non-tender and non-distended Assessment & Plan Assessment/Plan (1) Hypoglycemia: PLAN: 1. Acute metabolic encephalopathy Resolved Secondary to hypoglycemia as a result of insulin use in the setting of end-stage renal disease. Patient home regimen held. 2. Diabetes mellitus type 2 Patient presented with complications including hypoglycemia patient home regimen held as a result add lantus 10 BID 2. End-stage renal disease On hemodialysis days Tuesdays, and Saturdays) patient's customer service dispatcher Dr. Christine Steward was consulted for dialysis orders 3. Anemia Secondary to chronic disorder monitoring H&H and transfuse if patient becomes symptomatic or hemoglobin falls below 7 stable 4. Chronic congestive heart failure with preserved ejection fraction -Last echocardiogram was 02/25/2021 that showed an EF of 55% with severe RV dilation and moderate global RV dysfunction, severe tricuspid valve insufficiency plan is to continue with dialysis for volume management 5. Thrombocytopenia -Patient patient has some chronicity to her low platelet count we will continue monitoring and avoid heparin and its related products 6. Seizure disorder -Continue Vimpat 7. Essential hypertension ? Antihypertensives on hold in view of patient presentation 8. Class I obesity with BMI of 34.8 ? Weight loss advised 9. DVT prophylaxis Bilateral SCDs DC planning. Charges/Coding Visit Charges Inpatient E&M: 75593 Subs Hosp L2
--- NOTE | 2021-08-16 15:53 | CASEMGMT ---
Social Work Note ANNIE placed a call to pt's [facility] Shellie Widows and updated her that pt is to remain at [facility] today and get dialysis here tomorrow. Shellie states she will call pt's transportation for dialysis to cancel the transportation tomorrow. Shellie [facility] about [facility]. ANNIE informed Shellie that RN CM has a referral out to [facility], waiting for confirmation if they can accept pt or not. Shellie states understanding. Monet Dockery LAST REMODELER REPAIRER, MEDICAL MICROBIOLOGIST
[2021-08-16 16:40] LABS: Bedside Glucose 326 mg/dL (70-110)
[2021-08-16] MEDS: Glucerna Shake 120 ML LIQUID PO ×2 (17:01→21:28)
[2021-08-16] MEDS: Ondansetron 4 MG/2 ML Vial IV (17:05)
[2021-08-16] MEDS: 0.9% Saline Lock 10 ML Syringe IV (17:06)
[2021-08-16] MEDS: Lacosamide 100 MG Tablet PO (21:27)
[2021-08-16] MEDS: Atorvastatin Calcium 10 MG Tablet PO (21:30)
[2021-08-16] MEDS: Carvedilol 12.5 MG Tablet PO (21:30)
[2021-08-16] MEDS: Gabapentin 100 MG Capsule 200 MG PO (21:30)
[2021-08-16] MEDS: traZODone 50 MG Tablet 25 MG PO (21:30)
[2021-08-16 21:41] LABS: Bedside Glucose 357 mg/dL (70-110)
[2021-08-17] VITALS (8 sets, daily range): BP systolic 93–103; BP diastolic 42–43; PULSE 59–63; RESP 16–20; TEMP 36.3–36.8; O2SAT 94–98
[2021-08-17] MEDS: Acetaminophen 325 MG Tablet 650 MG PO ×2 (02:22→11:10)
[2021-08-17 05:05] LABS: Absolute Lymphocyte Count 0.85 X10^3/uL (0.83-4.51); Absolute Neutrophil Count 3.7 X10^3/uL (2.0-7.7); Basophil# 0.02 X10^3/uL; Basophil% 0.4 % (0-1); Eosinophil# 0.14 X10^3/uL; Eosinophils% 2.6 % (0-5); Hematocrit 30.4 % (37-47); Hemoglobin 9.7 g/dL (12.0-15.0); Lymphocyte # 0.85 X10^3/ul (0.83-4.51); Lymphocyte % 15.7 % (19-41); Mean Corp Hgb Conc 31.9 g/dL (32-36); Mean Corpuscular Hgb 32.4 pg (27.0-32.0); Mean Corpuscular Volume 101.7 fL (81-99); Mean Platelet Vol. 12.4 fl (6.2-12.0); Monocyte% 12.9 % (0-10); NRBC Flagged by Analyzer 0 % (0-5); POSITIVE COUNT YES; RBC Distribution Width CV 15.3 % (11.6-14.6); RBC Distribution Width SD 56.6 fl (35.1-43.9); Red Blood Count 2.99 M/mm3 (4.2-5.4); White Blood Count 5.4 K/mm3 (4.4-11.0)
[2021-08-17 05:10] LABS: Differential Indicated SCAN CRITERIA MET
[2021-08-17 05:11] LABS: Platelet Count 49 K/mm3 (150-450)
[2021-08-17 05:24] LABS: Albumin, Serum 2.5 g/dL (3.2-5.0); Anion Gap 9 (5-15); BUN 60 mg/dL (7-18); BUN/Creat Ratio 11.5 RATIO (10-20); Calcium,Total 8.3 mg/dL (8.5-10.1); Chloride 95 mmol/L (98-107); Creatinine, Serum 5.22 mg/dL (0.55-1.02); EST Glomerular Filtration Rate 9 mL/min (>60); Est Glom Filt Rate - Afr Amer 10 mL/min (>60); Estimated Creatinine Clearance 6.69 ml/min; Glucose 263 mg/dL (74-106); Phosphorus 6.1 mg/dL (2.5-4.9); Potassium 5.3 mmol/L (3.5-5.1); Sodium Level 130 mmol/L (136-145)
[2021-08-17] MEDS: Insulin Lispro 100 UNIT/ML INSULN.PEN SC ×2 (06:10→11:16)
[2021-08-17 06:21] LABS: Bedside Glucose 242 mg/dL (70-110)
[2021-08-17 06:34] LABS: Differential Comment SCANNED; Platelet Estimate MKD DEC (ADEQ)
[2021-08-17] MEDS: Glucerna Shake 120 ML LIQUID PO ×2 (08:58→13:41)
[2021-08-17] MEDS: Lacosamide 100 MG Tablet PO (08:59)
[2021-08-17] MEDS: Gabapentin 100 MG Capsule 200 MG PO (08:59)
[2021-08-17] MEDS: Pantoprazole Sodium 20 MG Tablet PO (08:59)
--- NOTE | 2021-08-17 10:52 | CASEMGMT ---
Social Work Note Per software team leader questions, pt has completed HCPOA and provided copy to [facility]. Pt has not completed LW. SW reviewed chart. HCPOA is on file at [facility]. SW printed off copy and placed on pt's chart. Monet Dockery MSW, MENTAL HEALTH DIRECTOR
[2021-08-17 11:31] LABS: Bedside Glucose 226 mg/dL (70-110)
--- NOTE | 2021-08-17 12:27 | PCM.PN.REN ---
Subjective Subjective seen on dialysis, proceeding without incident. VSS Objective Data Objective Data Vital Signs: Vital Signs Temp Pulse Resp BP Pulse Ox 97.7 F L 60 16 103/42 L 98 08/17/21 07:41 08/17/21 11:00 08/17/21 07:41 08/17/21 07:41 08/17/21 07:41 Oxygen Flow Rate (L/min) 2 Oxygen Delivery Method Room Air Weight: 92.1 kg Body Mass Index (BMI) 39.6 Intake & Output: Intake and Output for Last 24 Hours 08/15/21 08/16/21 08/17/21 23:59 23:59 23:59 Intake Total 1150 / 1150 2740.0 / 2740.0 240 / 240 Balance 1150 / 1150 2740.0 / 2740.0 240 / 240 Lab / Micro Data Result Diagrams: 08/17/21 04:39 08/17/21 04:39 Labs: Laboratory Results - last 24 hr 08/16/21 15:48: POC Glucose 326 H 08/16/21 21:26: POC Glucose 357 H 08/17/21 04:39: Ammonia 41.0 H 08/17/21 04:39: Sodium 130 L, Potassium 5.3 H, Chloride 95 L, Carbon Dioxide 26.0, Anion Gap 9, BUN 60 H, Creatinine 5.22 H, Estim Creat Clear Calc 6.69, Est GFR (MDRD) Af Amer 10 L, Est GFR (MDRD) Non-Af 9 L, BUN/Creatinine Ratio 11.5, Glucose 263 H, Calcium 8.3 L, Phosphorus 6.1 H, Albumin 2.5 L 08/17/21 04:39: WBC 5.4, RBC 2.99 L, Hgb 9.7 L, Hct 30.4 L, MCV 101.7 H, MCH 32.4 H, MCHC 31.9 L, RDW Std Deviation 56.6 H, RDW Coeff of Kusum 15.3 H, Plt Count 49 L*, MPV 12.4 H, Immature Gran % (Auto) 0.400, Neut % (Auto) 68.0, Lymph % (Auto) 15.7 L, [place] % (Auto) 12.9 H, Eos % (Auto) 2.6, Baso % (Auto) 0.4, Absolute Neuts (auto) 3.7, Absolute Lymphs (auto) 0.85, Nucleated RBC % 0, Differential Comment SCANNED, Diff Path Review May foll, Platelet Estimate MKD 08/17/21 06:09: POC Glucose 242 H 08/17/21 11:14: POC Glucose 226 H Physical Exam Const alert and oriented x3 Resp clear to auscultation bilaterally Cardio regular rate Extremity Extremity Narrative: mild edema Assessment & Plan Assessment/Plan (1) ESRD (end stage renal disease) on dialysis: PLAN: seen on dialysis (2) Encephalopathy acute: PLAN: resolved, ammonia 41
--- NOTE | 2021-08-17 12:41 | CHAPLAIN ---
Type of Pastoral Visit _x__ Initial Visit ___ Follow-up Visit ___ On-call Visit ___ General Patient Visit ___ Spiritual Assessment ___ Family Conference ___ Bereavement ___ Rapid Response ___ Code Blue ___ Other (describe below) Pastoral Care Referral From _x__ Patient ___ Family ___ Nurse ___ Physician ___ Gyn Physician ___ [employer] ___ Other (describe below) Sacrament/Intervention _x__ Active listening ___ Anointing ___ Lutheran ___ Bereavement ___ Communion _x__ Nicolette exploration ___ _x__ Life review _x__ Prayer ___ Reconciliation ___ Sacrament of Sick _x__ Supportive presence ___ Wedding ___ Other (describe below) Pastoral Comments patient was receiving dialysis at this time but welcomed the visit and talked quite a bit of life review, nicolette, family, etc.; pt did remember this supervisor glycerin from a previous admission and does welcome future visits
--- NOTE | 2021-08-17 13:57 | DIALYSIS ---
Pt toelrated 3.5hr HD tx well. Net UF -3000ml. See flow record for tx data.
--- NOTE | 2021-08-17 15:05 | DCINST_ITS ---
Discharge Instructions Diet Discharge Diet: 2000 Calorie Control Diet and Renal Diet Activity Discharge Activity: Return to Normal Activity Dressing / Incision Call your doctor if you observe: Fever of 101 or Higher, Shortness of breath and - (low blood glucose (less than 60)) Follow Up Care Test Results: Test results from this visit will be discussed in further detail at your follow-up appointment, if applicable. Discharge Plan Admission Admit Date/Time: 08/15/21 15:04 Primary Reason for Your Visit: hypoglycemia Attending Provider: Spencer Marrero Primary Care Provider: Bailey Toribio Consulting Providers: Christine Steward Discharge Orders/Prescriptions Prescriptions: Continued atorvastatin 10 MG tablet 10 mg PO DAILY RF: 0 Vimpat 100 mg tablet 100 mg PO BID RF: 0 aspirin 81 mg tablet,delayed release (DR/EC) 81 mg PO DAILY RF: 0 B complex-vitamin C-folic acid 1 mg Tablet 1 tab PO DAILY RF: 0 trazodone 50 mg tablet 25 mg PO QHS RF: 0 gabapentin 100 mg capsule 200 mg PO BID RF: 0 calcium acetate(phosphat bind) 667 mg Capsule 667 mg PO TID RF: 0 insulin aspart U-100 [Novolog Flexpen U-100 Insulin] 100 unit/mL (3 mL) Insu monika Pen 3 unit SUBCUT TIDCM RF: 0 omeprazole 20 mg Capsule,Delayed Release(Dr/Ec) 20 mg PO DAILY RF: 0 midodrine 5 mg Tablet 10 mg PO TIDCM Qty: 90 RF: 0 latanoprost [Xalatan] 0.005 % Drops 1 drp EACH EYE QPM RF: 0 carvedilol 12.5 mg Tablet 12.5 mg PO BID RF: 0 polyethylene glycol 3350 [Miralax] 17 gram Powder In Packet 17 g PO DAILY PRN (Reason: Constipation) RF: 0 bisacodyl [Dulcolax (bisacodyl)] 10 mg Suppository 10 mg MO DAILY PRN (Reason: Constipation) RF: 0 lisinopril [Zestril] 10 mg Tablet 10 mg PO DAILY RF: 0 hydroxyzine HCl 25 mg Tablet 25 mg PO Q6H RF: 0 fluticasone propionate 50 mcg/actuation [place],Suspension 2 spray INTRANASAL DAILY RF: 0 acetaminophen [Tylenol] 325 mg Capsule 650 mg PO Q4H PRN (Reason: Pain) RF: 0 cholecalciferol (vitamin D3) [Vitamin D3] 125 mcg (5,000 unit) Tablet 125 mcg PO QWEEK RF: 0 Changed Lantus Solostar U-100 Insulin 100 unit/mL (3 mL) insulin pen 15 unit subcut BID Qty: 0 RF: 0 Referrals / Follow Up: Bailey Toribio MD [Primary Care Provider] - Within 2 Weeks Disposition Disposition (needs filled in before D/C Order can be placed): Home Health Service
--- NOTE | 2021-08-17 15:12 | DS.PCM_ITS ---
Providers Date of Admission: 08/15/21 Primary Care Physician: Dr. Bailey Toribio MD Consultations 08/15/21 11:01 Consult: Nephrology Routine Consulting Provider: Christine Steward Reason for Consult: esrd EMERGENT Consult: No MD Notified: Yes Date Notified: 08/15/21 Time Notified: 13:06 Method of Notification: Text Reason For Visit: HYPOGLYCEMIA Diagnosis Discharge Diagnosis (1) ESRD (end stage renal disease) on dialysis: Status: Acute Code(s): N18.6 - End stage renal disease; Z99.2 - Dependence on renal dialysis (2) Encephalopathy acute: Status: Acute Code(s): G93.40 - Encephalopathy, unspecified (3) Hypoglycemia: Status: Acute Code(s): E16.2 - Hypoglycemia, unspecified Medications at Discharge Home Medications atorvastatin 10 mg PO DAILY 09/06/19 Vimpat 100 mg PO BID 02/22/21 B complex-vitamin C-folic acid 1 tab PO DAILY 03/01/21 aspirin 81 mg PO DAILY 03/01/21 gabapentin 200 mg PO BID 04/30/21 trazodone 25 mg PO QHS 04/30/21 calcium acetate(phosphat bind) 667 mg PO TID 06/18/21 insulin aspart U-100 [Novolog Flexpen U-100 Insulin] 3 unit SUBCUT TIDCM 06/18/21 omeprazole 20 mg PO DAILY 06/18/21 midodrine 10 mg PO TIDCM #90 tab 07/14/21 acetaminophen [Tylenol] 650 mg PO Q4H PRN 08/16/21 bisacodyl [Dulcolax (bisacodyl)] 10 mg [place] DAILY PRN 08/16/21 carvedilol 12.5 mg PO BID 08/16/21 cholecalciferol (vitamin D3) [Vitamin D3] 125 mcg PO QWEEK 08/16/21 fluticasone propionate 2 spray INTRANASAL DAILY 08/16/21 hydroxyzine HCl 25 mg PO Q6H 08/16/21 latanoprost [Xalatan] 1 drp EACH EYE QPM 08/16/21 lisinopril [Zestril] 10 mg PO DAILY 08/16/21 polyethylene glycol 3350 [Miralax] 17 g PO DAILY PRN 08/16/21 Lantus Solostar U-100 Insulin 15 unit SUBCUT BID #0 ml 08/17/21 Hospital Course Operations None Procedures None Summary of Care Provided Minutes Spent on Discharge: 32 Hospital Course: This is a 75-year-old female found lethargic at home. Patient had blood sugar in the 500s and then took extra short acting insulin. Blood sugar was noted to be low at home and EMS was contacted. By the time they arrived her blood sugar was noted to be 90s and sent to the emergency room. Blood sugar was noted to be 65. Patient remained stable had no further events while she was here. Patient's that Lantus will be cut back from 20-15 but that may need to be increased up to 20 again depending her blood sugar does. Is unclear patient did have hypoglycemic that led to change in mental status but no known seizures were noted however that certainly is a possibility. As she does have a history of seizure disorder. Patient was on hemodialysis while she was here and tolerated that well. Patient will be discharged home in stable condition. Physical Exam Const Constitutional Narrative: Groggy. Afebrile. On dialysis Resp normal respiratory effort, no retractions, no use of accessory muscles and clear to auscultation bilaterally Cardio regular rate, regular rhythm, S1 normal heart sound and S2 normal heart sound GI normal to inspection, nondistended, normoactive bowel sounds, soft to palpation, non-tender and non-distended Extremity normal to inspection and full ROM Weight / BMI Weight Weight: 92.1 kg Body Mass Index (BMI) 39.6 ABG / Lab / Microbiology Data Result Diagrams: 08/17/21 04:39 08/17/21 04:39 Laboratory: Laboratory Results - last 24 hr 08/16/21 15:48: POC Glucose 326 H 08/16/21 21:26: POC Glucose 357 H 08/17/21 04:39: Ammonia 41.0 H 08/17/21 04:39: Sodium 130 L, Potassium 5.3 H, Chloride 95 L, Carbon Dioxide 26.0, Anion Gap 9, BUN 60 H, Creatinine 5.22 H, Estim Creat Clear Calc 6.69, Est GFR (MDRD) Af Amer 10 L, Est GFR (MDRD) Non-Af 9 L, BUN/Creatinine Ratio 11.5, Glucose 263 H, Calcium 8.3 L, Phosphorus 6.1 H, Albumin 2.5 L 08/17/21 04:39: WBC 5.4, RBC 2.99 L, Hgb 9.7 L, Hct 30.4 L, MCV 101.7 H, MCH 32.4 H, MCHC 31.9 L, RDW Std Deviation 56.6 H, RDW Coeff of Kus[place] 15.3 H, Plt Count 49 L*, MPV 12.4 H, Immature Gran % (Auto) 0.400, Neut % (Auto) 68.0, Lymph % (Auto) 15.7 L, [place] % (Auto) 12.9 H, Eos % (Auto) 2.6, Baso % (Auto) 0.4, Absolute Neuts (auto) 3.7, Absolute Lymphs (auto) 0.85, Nucleated RBC % 0, Differential Comment SCANNED, Diff Path Review October sukhjinder Platelet Estimate MKD 08/17/21 06:09: POC Glucose 242 H 08/17/21 11:14: POC Glucose 226 H D/C Instructions Discharge Diet: 2000 Calorie Control Diet and Renal Diet Call your doctor if you observe: Fever of 101 or Higher, Shortness of breath and - (low blood glucose (less than 60)) Meaningful Use Info Meaningful Use Diagnoses (Choose all that apply): None applicable Discharge Plan Admission Admit Date/Time: 08/15/21 15:04 Primary Reason for Your Visit: hypoglycemia Attending Provider: Spencer Marrero Primary Care Provider: Bailey Toribio Consulting Providers: Christine Steward Discharge Orders/Prescriptions Prescriptions: Continued atorvastatin 10 MG tablet 10 mg PO DAILY RF: 0 Vimpat 100 mg tablet 100 mg PO BID RF: 0 aspirin 81 mg tablet,delayed release (DR/EC) 81 mg PO DAILY RF: 0 B complex-vitamin C-folic acid 1 mg Tablet 1 tab PO DAILY RF: 0 trazodone 50 mg tablet 25 mg PO QHS RF: 0 gabapentin 100 mg capsule 200 mg PO BID RF: 0 calcium acetate(phosphat bind) 667 mg Capsule 667 mg PO TID RF: 0 insulin aspart U-100 [Novolog Flexpen U-100 Insulin] 100 unit/mL (3 mL) Insulin Pen 3 unit SUBCUT TIDCM RF: 0 omeprazole 20 mg Capsule,Delayed Release(Dr/Ec) 20 mg PO DAILY RF: 0 midodrine 5 mg Tablet 10 mg PO TIDCM Qty: 90 RF: 0 latanoprost [Xalatan] 0.005 % Drops 1 drp EACH EYE QPM RF: 0 carvedilol 12.5 mg Tablet 12.5 mg PO BID RF: 0 polyethylene glycol 3350 [Miralax] 17 gram Powder In Packet 17 g PO DAILY PRN (Reason: Constipation) RF: 0 bisacodyl [Dulcolax (bisacodyl)] 10 mg Suppository 10 mg [place] DAILY PRN (Reason: Constipation) RF: 0 lisinopril [Zestril] 10 mg Tablet 10 mg PO DAILY RF: 0 hydroxyzine HCl 25 mg Tablet 25 mg PO Q6H RF: 0 fluticasone propionate 50 mcg/actuation [place],Suspension 2 spray INTRANASAL DAILY RF: 0 acetaminophen [Tylenol] 325 mg Capsule 650 mg PO Q4H PRN (Reason: Pain) RF: 0 cholecalciferol (vitamin D3) [Vitamin D3] 125 mcg (5,000 unit) Tablet 125 mcg PO QWEEK RF: 0 Changed Lantus Solostar U-100 Insulin 100 unit/mL (3 mL) insulin pen 15 unit subcut BID Qty: 0 RF: 0 Referrals / Follow Up: Bailey Toribio MD [Primary Care Provider] - Within 2 Weeks Disposition Disposition (needs filled in before D/C Order can be placed): Home Health Service Charges/Coding Visit Charges Inpatient E&M: 06252 Disch Hosp
--- NOTE | 2021-08-17 15:13 | NURSING ---
Student charting reviewed by Shannan RN, instructor
--- NOTE | 2021-08-17 15:19 | CASEMGMT ---
Social Work Note SW placed a call to [facility] CM Shellie Widows and left message updating her that pt is to discharge home today with [facility]. Monet Dockery HEATING TECHNICIAN, GATEHOUSE ATTENDANT
--- NOTE | 2021-08-17 15:20 | CASEMGMT ---
[facility] will accept pt for SOC on .
[2021-08-18 09:42] LABS: Pathologist Review Reviewed
--- NOTE | 2021-08-18 10:40 | CASEMGMT ---
Social Work Note SW received call from pt's CM Shelliecaity Holley stating she had requested that pt's medications be filled through [facility] as pt gets confused when her medications are not filled through [facility] in the pre package. ANNIE informed Shellie that pt had told RN KAMILA that she wanted her prescriptions filled through [facility] so that is the pharmacy that was used since pt requested it. Monet Dockery CELL PREPARER, MELT HOUSE DRAG OPERATOR
== END 2021-08-17 15:43 | disposition home health service (06) | DRG 637 ==
LOC: ED 11:04 → MS3 11:23
PROVIDERS: Internal Medicine Nephrology; Admitting Provider Internal Medicine; Emergency Provider Emergency Medicine; PCP Internal Medicine
DX: E11.649 Type 2 diabetes mellitus with hypoglycemia without coma (principal); G93.41 Metabolic encephalopathy; I13.2 Hypertensive heart and chronic kidney disease with heart failure and with stage 5 chronic kidney disease, or end stage renal disease; I50.32 Chronic diastolic (congestive) heart failure; I27.21 Secondary pulmonary arterial hypertension; D69.6 Thrombocytopenia, unspecified; D63.8 Anemia in other chronic diseases classified elsewhere; N18.6 End stage renal disease; E11.22 Type 2 diabetes mellitus with diabetic chronic kidney disease; J44.9 Chronic obstructive pulmonary disease, unspecified; E66.01 Morbid (severe) obesity due to excess calories; I50.812 Chronic right heart failure; Z79.4 Long term (current) use of insulin; G40.909 Epilepsy, unspecified, not intractable, without status epilepticus; E11.42 Type 2 diabetes mellitus with diabetic polyneuropathy; Z99.2 Dependence on renal dialysis; F31.9 Bipolar disorder, unspecified; F33.41 Major depressive disorder, recurrent, in partial remission; M06.9 Rheumatoid arthritis, unspecified; E78.5 Hyperlipidemia, unspecified; I25.2 Old myocardial infarction; D50.9 Iron deficiency anemia, unspecified; G47.33 Obstructive sleep apnea (adult) (pediatric); Z68.39 Body mass index [BMI] 39.0-39.9, adult; Z79.82 Long term (current) use of aspirin; Z87.891 Personal history of nicotine dependence; Z86.73 Personal history of transient ischemic attack (TIA), and cerebral infarction without residual deficits; Z86.14 Personal history of Methicillin resistant Staphylococcus aureus infection
CPT/HCPCS: 36415; 80048; 80053; 80069; 82140; 82962; 85025; 90937; 99285; J7040; A4216; G0257; J2405

== ENCOUNTER 2021-08-20 11:36 | Outpatient (CLI) | payer MEDICARE, MEDICAID, SELFPAY ==
[2021-08-20 08:39] VITALS: BP 144/43; PULSE 68; RESP 16; TEMP 36.8; O2SAT 99; BMI 40.8
--- NOTE | 2021-08-20 09:02 | SUR.PREOP ---
Patient nasal swab for COVID resulted positive on DOS. Dr. Polanco updated and Dr. Polanco cancelled procedure today, 08/20/2021. This nurse to update patient.
== END 2021-08-20 23:59 | disposition home or self-care (01) ==
LOC: AC 17:41 → PAT 09-16 11:36
PROVIDERS: PCP Internal Medicine; Referring Provider Surgery; Visit Provider Surgery
DX: Z20.828 Contact with and (suspected) exposure to other viral communicable diseases (principal); U07.1 COVID-19
CPT/HCPCS: 87426; J7040

== ENCOUNTER 2021-10-05 15:16 | Outpatient (CLI) | payer MEDICARE, MEDICAID, SELFPAY ==
[2021-10-05 15:49] LABS: Hematocrit 30.4 % (37-47); Hemoglobin 9.7 g/dL (12.0-15.0); Mean Corp Hgb Conc 31.9 g/dL (32-36); Mean Corpuscular Hgb 34.2 pg (27.0-32.0); Mean Platelet Vol. 11.6 fl (6.2-12.0); POSITIVE COUNT YES; Platelet Count 69 K/mm3 (150-450); RBC Distribution Width CV 15.9 % (11.6-14.6); RBC Distribution Width SD 62.1 fl (35.1-43.9); Red Blood Count 2.84 M/mm3 (4.2-5.4); White Blood Count 3.4 K/mm3 (4.4-11.0)
[2021-10-05 16:04] LABS: Anion Gap 3 (5-15); BUN 28 mg/dL (7-18); Calcium,Total 8.3 mg/dL (8.5-10.1); Chloride 99 mmol/L (98-107); Creatinine, Serum 2.81 mg/dL (0.55-1.02); EST Glomerular Filtration Rate 17 mL/min (>60); Est Glom Filt Rate - Afr Amer 21 mL/min (>60); Glucose 348 mg/dL (74-106); Potassium 4.1 mmol/L (3.5-5.1); Sodium Level 136 mmol/L (136-145)
[2021-10-05 16:31] LABS: Scan Indicated on CBC? Y/N YES- FLAGS NOTED
== END 2021-10-05 23:59 | disposition home or self-care (01) ==
LOC: LAB 15:17
PROVIDERS: PCP Internal Medicine; Referring Provider Surgery; Visit Provider Surgery
DX: Z01.818 Encounter for other preprocedural examination (principal)
CPT/HCPCS: 36415; 80048; 85027

== ENCOUNTER 2021-10-11 19:37 | Observation (INO) | payer MEDICARE, MEDICAID, SELFPAY ==
[2021-10-11] VITALS (25 sets, daily range): BP systolic 61–126; BP diastolic 20–67; PULSE 55–60; RESP 15–22; TEMP 36–36.9; O2SAT 91–100; BMI 40.4
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
[2021-10-11] MEDS: 0.9% Normal Saline 1,000 ML 15 ML IV (10:30)
[2021-10-11 11:00] LABS: Hematocrit 34.1 % (37-47); Hemoglobin 10.7 g/dL (12.0-15.0); Mean Corp Hgb Conc 31.4 g/dL (32-36); Mean Corpuscular Hgb 34.9 pg (27.0-32.0); Mean Corpuscular Volume 111.1 fL (81-99); Mean Platelet Vol. 11.5 fl (6.2-12.0); POSITIVE COUNT YES; POSITIVE MORPHOLOGY YES; RBC Distribution Width CV 17.7 % (11.6-14.6); Red Blood Count 3.07 M/mm3 (4.2-5.4); White Blood Count 5.2 K/mm3 (4.4-11.0)
[2021-10-11 11:09] LABS: Anion Gap 4 (5-15); BUN 41 mg/dL (7-18); Calcium,Total 8.7 mg/dL (8.5-10.1); Chloride 96 mmol/L (98-107); Creatinine, Serum 4.56 mg/dL (0.55-1.02); EST Glomerular Filtration Rate 10 mL/min (>60); Est Glom Filt Rate - Afr Amer 12 mL/min (>60); Glucose 386 mg/dL (74-106); Potassium 4.9 mmol/L (3.5-5.1); Sodium Level 131 mmol/L (136-145)
[2021-10-11 11:16] LABS: Bedside Glucose 389 mg/dL (74-106)
[2021-10-11 11:18] LABS: Platelet Count 44 K/mm3 (150-450)
[2021-10-11] MEDS: Insulin Lispro 100 UNIT/ML INSULN.PEN 6 UNIT SC (11:56)
[2021-10-11] MEDS: Clindamycin 900 MG/50 ML BAG 75 MG IV (11:59)
--- NOTE | 2021-10-11 12:01 | EX.PCM.DISCH ---
Discharge Instructions Procedure Fistula Diet Discharge Diet: Renal Diet Activity Discharge Activity: May Not Drive (for 2-3 days or while taking narcotic pain medications.) Lifting Restrictions: 5 pounds Keep extremity elevated above heart level: - (Keep arm elevated above the heart level for 3 days.) Dressing / Incision Call your doctor if your incision/area has: Continuous Slow Oozing, Sudden Increased Bleeding (apply pressure and call your doctor.), Increased Pain/ Swelling, Increased Redness and Foul Smelling Discharge Call your doctor if you observe: Fever of 101 or Higher Suture Line Care: Avoid Pulling/Pushing and Avoid Pinching/Bending Cleanse incision/area with: Keep Dressing Clean & Dry Additional Dressing/Incision Instructions:: Elevate your left arm for comfort and to limit swelling. Hopefully the dressing will stay clean and dry and can be left in place to your office follow-up. Follow Up Care Please Follow Up With: Dinesh Polanco MD When: Call [phone] to make an appointment for office followup in one week. Test Results: Test results from this visit will be discussed in further detail at your follow-up appointment, if applicable. Discharge Plan Admission Attending Provider: Dinesh Polanco Primary Care Provider: Bailey Toribio Discharge Orders/Prescriptions Prescriptions: No Action atorvastatin 10 MG tablet 10 mg PO DAILY RF: 0 lacosamide [Vimpat] 100 mg tablet 100 mg PO BID RF: 0 aspirin 81 mg tablet,delayed release (DR/EC) 81 mg PO DAILY RF: 0 B complex-vitamin C-folic acid 1 mg Tablet 1 tab PO DAILY RF: 0 trazodone 50 mg tablet 25 mg PO QHS RF: 0 gabapentin 100 mg capsule 200 mg PO BID RF: 0 calcium acetate(phosphat bind) 667 mg Capsule 2,001 mg PO TID RF: 0 insulin aspart U-100 [Novolog Flexpen U-100 Insulin] 100 unit/mL (3 mL) Insulin Pen 3 - 5 unit SUBCUT TIDCM RF: 0 omeprazole 20 mg Capsule,Delayed Release(Dr/Ec) 20 mg PO DAILY RF: 0 midodrine 5 mg Tablet 10 mg PO TIDCM Qty: 90 RF: 0 latanoprost [Xalatan] 0.005 % Drops 1 drp EACH EYE QPM RF: 0 carvedilol 12.5 mg Tablet 12.5 mg PO BID RF: 0 lisinopril [Zestril] 10 mg Tablet 10 mg PO DAILY RF: 0 acetaminophen [Tylenol] 325 mg Capsule 650 mg PO Q4H PRN (Reason: Pain) RF: 0 cholecalciferol (vitamin D3) [Vitamin D3] 125 mcg (5,000 unit) Tablet 125 mcg PO KELLOGG RF: 0 Lantus Solostar U-100 Insulin 100 unit/mL (3 mL) insulin pen 15 unit subcut BID Qty: 0 RF: 0 Nephrocaps 1 mg Capsule 22 cap PO DAILY RF: 0
[2021-10-11] MEDS: Heparin Injection (Vial) 5,000 UNIT/ML VIAL 5000 UNIT (12:27)
--- NOTE | 2021-10-11 14:32 | PCM.OPRPT ---
Problems Associated Problem List Diagnoses (1) ESRD (end stage renal disease) on dialysis: Report of Operation Date of Procedure: 10/11/21 Pre-Operative Diagnosis: End-stage renal disease on hemodialysis in need of a arteriovenous hemodialysis fistula Post-Operative Diagnosis: Same Surgery/Procedure Performed:: Transposition left upper arm basilic vein to brachial artery arteriovenous hemodialysis fistula creation Description of Surgical Findings:: Timeout informed consent was obtained. 75-year-old female was taken to the operating place upon the table underwent general anesthesia. Clindamycin 900 g given intravenously. Clean procedure. The left upper semisterilely prepped and draped. 1% lidocaine mixed 50-50 local anesthetic. Throughout the procedure total 38 cc was used. Mapping was performed of the basilic vein preprocedure. Local was instilled. A longitudinal incision made serially of the left upper arm. Sharp and blunt dissection was used to dissect free the matured basilic vein from the remote stage I procedure. Side branches were secured with 3-0 Vicryl ligatures and hemoclips were indicated. Dissection performed up to the shoulder was good length of basilic vein had been achieved. Small area in the very proximal vein was secured with a [id number] suture of 7-0 Prolene at the site of a small branch. Then the vein was measured. The left upper arm in a convenient area in a curvilinear infused incision made measurements. Then sharp and blunt dissection used to identify the brachial artery. Using a 6 mm tunneler the vein was ligated distally at the antecubital space with a 3-0 Vicryl suture ligature and then it was tunneled having marked the vein to assure no twisting. Patient then received 5000 Ancef heparin. Slightly less than body weight anticipated due to her thrombocytopenia. A brachial artery had peripheral vascular clamps were placed and 11 blade was used to make an arteriotomy which was extended with Mcmanus scissors a end-to-side venous to arterial anastomosis created with a running 7-0 Prolene. Prior to completion there is good antegrade retrograde flow. The anastomosis was completed and medially there was a good pulse and thrill within the fistula. It had a good position alignment. Inspected the hand it appeared to be viable. I did put a [id number]-[id number] suture in the very distal portion of the vein to help to prescription that anastomosis just slightly to assure adequate flow to the hand. I was able to palpate a pulse and Doppler a radial pulse as well. The patient received 30 mg of protamine as reversal agent. Because of the patient's thrombocytopenia thrombin followed by Surgicel was placed on the wound. The wound was closed with a deep layer of multiple interrupted 3-0 Vicryl sutures. Skin edges were Dr. Cabrera subicular 4-0 Monocryl. Steri-Strips Telfa ABD soft roll Clyde wrap applied. Sponge and instrument and needle counts were reported to the surgeon be correct. Specimens none. Drains none. Blood loss 150 cc. The patient was taken to the recovery area in satisfactory condition apparent complication Dinesh Polanco M.D., F.A.C.S. Surgeon: Dinesh Polanco Type of Anesthesia: General and Local Anesthesiologist: Doug Russell
[2021-10-11] MEDS: Lidocaine 1% (50 ml mdv) 50 ML Vial (14:37)
[2021-10-11] MEDS: Bupivacaine Mpf 0.5% 30 ML VIAL (14:37)
[2021-10-11 16:16] LABS: Bedside Glucose 268 mg/dL (74-106)
--- NOTE | 2021-10-11 16:45 | EKG12_ITS ---
Test Reason : CP Blood Pressure : / mmHG Vent. Rate : 058 BPM Atrial Rate : 058 BPM P-R Int : 174 ms QRS Dur : 080 ms QT Int : 420 ms P-R-T Axes : 033 104 041 degrees QTc Int : 412 ms Sinus bradycardia Low voltage QRS Borderline ECG When compared with ECG of 11-OCT-2021 16:53, MANUAL COMPARISON REQUIRED, DATA IS UNCONFIRMED Confirmed by JB BOWMAN, ANTONIO ([id number]), story editor RADHA TAPIA ([id number]) on 10/15/2021 1:08:57 PM Referred By: Dinesh Polanco Confirmed By:NEEMA MUHAMMAD MD
[2021-10-11 17:09] LABS: Absolute Lymphocyte Count 0.94 X10^3/uL (0.83-4.51); Absolute Neutrophil Count 2.7 X10^3/uL (2.0-7.7); Basophil# 0.04 X10^3/uL; Basophil% 0.9 % (0-1); Eosinophil# 0.11 X10^3/uL; Eosinophils% 2.5 % (0-5); Hematocrit 29.6 % (37-47); Hemoglobin 9.1 g/dL (12.0-15.0); Lymphocyte # 0.94 X10^3/ul (0.83-4.51); Lymphocyte % 21.2 % (19-41); Mean Corp Hgb Conc 30.7 g/dL (32-36); Mean Corpuscular Hgb 33.8 pg (27.0-32.0); Mean Platelet Vol. 12.8 fl (6.2-12.0); Monocyte# 0.61 X10^3/uL; Monocyte% 13.8 % (0-10); NRBC Flagged by Analyzer 0 % (0-5); Neutrophil # 2.71 X10^3/uL (2.7-7.7); Neutrophil % 61.1 % (47-70); POSITIVE COUNT YES; POSITIVE MORPHOLOGY YES; RBC Distribution Width CV 17.8 % (11.6-14.6); RBC Distribution Width SD 71.6 fl (35.1-43.9); Red Blood Count 2.69 M/mm3 (4.2-5.4); White Blood Count 4.4 K/mm3 (4.4-11.0)
[2021-10-11 17:15] LABS: Base Excess 3 mmol/L (-2 to +2); Bicarbonate 28.4 mmol/L (22-26); Blood Gas Specimen Type ART; O2 Delivery Device Cannula; PO2 71 mmHG (75-100); SITE R Brach; SO2 94 % (95-99); Total Carbon Dioxide 30 mmol/L; pCO2 47.1 mmHg (35-45); pH 7.39 (7.35-7.45)
[2021-10-11 17:19] LABS: BUN 42 mg/dL (7-18); EST Glomerular Filtration Rate 10 mL/min (>60); Estimated Creatinine Clearance 14.81 ml/min; Glucose 242 mg/dL (74-106); Platelet Count 49 K/mm3 (150-450)
[2021-10-11 17:20] LABS: Anion Gap 4 (5-15); BUN/Creat Ratio 8.9 RATIO (10-20); Calcium,Total 8.7 mg/dL (8.5-10.1); Chloride 100 mmol/L (98-107); Differential Indicated SCAN CRITERIA MET; Est Glom Filt Rate - Afr Amer 12 mL/min (>60); Potassium 5.4 mmol/L (3.5-5.1); Sodium Level 133 mmol/L (136-145); Troponin-I HS 5 pg/mL (3.0-54.0)
[2021-10-11 18:09] LABS: Platelet Estimate MKD DEC (ADEQ)
[2021-10-11 18:10] LABS: Anisocytosis 1+; Red Cell Morphology N CHROM NORMAL (NORM C&C)
--- NOTE | 2021-10-11 18:44 | SUR.PHASEI ---
held firm pressure to incision for about 45 minutes. after bleeding appeared to be stopped cleaned along perimeter of incision with NS and 4x4s. applied skin prep and new steristrips to open area where the previous steri strips had fallen off. Did not attempt to replace any of the steri strips that where firmly adhered. applied gel foam, 4x4s, 3 abds, kerlix and humza wrap. fingers remain warm and mobile, positive bruit. arm elevated on two pillows.
--- NOTE | 2021-10-11 19:36 | EKG12_ITS ---
Test Reason : DYSRHYTHMIA Blood Pressure : / mmHG Vent. Rate : 058 BPM Atrial Rate : 058 BPM P-R Int : 184 ms QRS Dur : 080 ms QT Int : 446 ms P-R-T Axes : 007 086 069 degrees QTc Int : 437 ms Sinus bradycardia Low voltage QRS Septal infarct , age undetermined Abnormal ECG When compared with ECG of 10-JUL-2021 04:42, DE interval has decreased Right bundle branch block is no longer Present Septal infarct is now Present Confirmed by JB BOWMAN, ANTONIO ([id number]), online editor RADHA TAPIA ([id number]) on 10/15/2021 1:35:34 PM Referred By: Dinesh Polanco Confirmed By:NEEMA MUHAMMAD MD
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
[2021-10-11] MEDS: 0.9% Saline Lock 10 ML Syringe IV (19:58)
[2021-10-11] MEDS: 0.9% Normal Saline 1,000 ML 75 ML IV (19:58)
[2021-10-11 21:17] LABS: Hematocrit 31.4 % (37-47); Mean Corp Hgb Conc 31.8 g/dL (32-36); Mean Corpuscular Hgb 34.7 pg (27.0-32.0); Mean Platelet Vol. 11.9 fl (6.2-12.0); POSITIVE COUNT YES; POSITIVE MORPHOLOGY YES; Platelet Count 43 K/mm3 (150-450); RBC Distribution Width CV 17.7 % (11.6-14.6); RBC Distribution Width SD 70.7 fl (35.1-43.9); Red Blood Count 2.88 M/mm3 (4.2-5.4)
[2021-10-11 22:29] LABS: Scan Indicated on CBC? Y/N YES- FLAGS NOTED
[2021-10-11 22:30] LABS: Differential Comment SCANNED
[2021-10-11] MEDS: Latanoprost 0.005% 1 Bottle 1 DRP EACH EYE (22:34)
[2021-10-11] MEDS: Atorvastatin Calcium 10 MG Tablet PO (22:35)
[2021-10-11] MEDS: Lacosamide 100 MG Tablet PO (22:37)
[2021-10-11] MEDS: Insulin Glargine-YFGN 100 UNIT/ML Pen 15 UNIT SC (22:41)
[2021-10-11 22:55] LABS: Bedside Glucose 188 mg/dL (74-106)
[2021-10-12] VITALS (9 sets, daily range): BP systolic 107–132; BP diastolic 43–74; PULSE 58–62; RESP 18; TEMP 36.4–36.6; O2SAT 86–100
[2021-10-12] MEDS: Acetaminophen 325 MG Tablet 650 MG PO (00:52)
[2021-10-12 05:52] LABS: Absolute Lymphocyte Count 0.88 X10^3/uL (0.83-4.51); Absolute Neutrophil Count 3.7 X10^3/uL (2.0-7.7); Basophil# 0.03 X10^3/uL; Basophil% 0.6 % (0-1); Eosinophils% 1.9 % (0-5); Hematocrit 30.3 % (37-47); Hemoglobin 9.5 g/dL (12.0-15.0); Lymphocyte # 0.88 X10^3/ul (0.83-4.51); Lymphocyte % 16.4 % (19-41); Mean Corp Hgb Conc 31.4 g/dL (32-36); Mean Corpuscular Hgb 34.3 pg (27.0-32.0); Mean Corpuscular Volume 109.4 fL (81-99); Mean Platelet Vol. 12.2 fl (6.2-12.0); Monocyte# 0.61 X10^3/uL; Monocyte% 11.4 % (0-10); NRBC Flagged by Analyzer 0 % (0-5); Neutrophil # 3.73 X10^3/uL (2.7-7.7); Neutrophil % 69.3 % (47-70); POSITIVE COUNT YES; POSITIVE MORPHOLOGY YES; RBC Distribution Width CV 17.5 % (11.6-14.6); RBC Distribution Width SD 70.7 fl (35.1-43.9); Red Blood Count 2.77 M/mm3 (4.2-5.4); White Blood Count 5.4 K/mm3 (4.4-11.0)
[2021-10-12 05:59] LABS: Differential Indicated SCAN CRITERIA MET; Platelet Count 45 K/mm3 (150-450)
[2021-10-12 06:14] LABS: Differential Comment SCANNED; Polychromasia 1+
[2021-10-12 06:15] LABS: Anion Gap 6 (5-15); BUN 46 mg/dL (7-18); BUN/Creat Ratio 9.2 RATIO (10-20); Calcium,Total 8.4 mg/dL (8.5-10.1); Chloride 101 mmol/L (98-107); Creatinine, Serum 4.98 mg/dL (0.55-1.02); EST Glomerular Filtration Rate 9 mL/min (>60); Est Glom Filt Rate - Afr Amer 11 mL/min (>60); Estimated Creatinine Clearance 13.98 ml/min; Glucose 139 mg/dL (74-106); Potassium 5.1 mmol/L (3.5-5.1); Sodium Level 134 mmol/L (136-145)
[2021-10-12 06:36] LABS: Bedside Glucose 125 mg/dL (74-106)
[2021-10-12 06:37] LABS: Troponin-I HS 8 pg/mL (3.0-54.0)
--- NOTE | 2021-10-12 06:42 | PN.SURG_ITS ---
Subjective Subjective Patient is alert awake and appears to have resolved her post anesthetic complications. She has no specific complaints. Objective Data Objective Data Vital Signs: Vital Signs Temp Pulse Resp BP Pulse Ox 97.8 F 59 L 18 112/58 L 97 10/12/21 04:30 10/12/21 04:30 10/12/21 04:30 10/12/21 04:30 10/12/21 04:30 Oxygen Flow Rate (L/min) 2 Oxygen Delivery Method Nasal Cannula Weight: 206 lb 2.115 oz Body Mass Index (BMI) 40.4 Intake & Output: Intake and Output for Last 24 Hours 10/10/21 10/11/21 10/12/21 23:59 23:59 23:59 Intake Total 192 / 1919 240 / 240 Output Total 0 / 0 0 / 0 Balance 1919 / 1919 240 / 240 Lab / Micro Data Result Diagrams: 10/12/21 05:40 10/12/21 05:40 Labs: Laboratory Results - last 24 hr 10/11/21 10:47: WBC 5.2, RBC 3.07 L, Hgb 10.7 L, Hct 34.1 L, MCV 111.1 H, MCH 34.9 H, MCHC 31.4 L, RDW Std Deviation 72.0 H, RDW Coeff of Kusum 17.7 H, Plt Count 44 L*, MPV 11.5, Diff Path Review October10/11/21 10:47: Sodium 131 L, Potassium 4.9, Chloride 96 L, Carbon Dioxide 31.0, Anion Gap 4 L, BUN 41 H, Creatinine 4.56 H, Est GFR (MDRD) Af Amer 12 L, Est GFR (MDRD) Non-Af 10 L, BUN/Creatinine Ratio 9.0 L, Glucose 386 H, Calcium 8.7 10/11/21 11:11: POC Glucose 389 H 10/11/21 15:53: POC Glucose 268 H 10/11/21 16:45: WBC 4.4, RBC 2.69 L, Hgb 9.1 L, Hct 29.6 L, MCV 110.0 H, MCH 33.8 H, MCHC 30.7 L, RDW Std Deviation 71.6 H, RDW Coeff of Kusum 17.8 H, Plt Count 49 L*, MPV 12.8 H, Immature Gran % (Auto) 0.500, Neut % (Auto) 61.1, Lymph % (Auto) 21.2, [place] % (Auto) 13.8 H, Eos % (Auto) 2.5, Baso % (Auto) 0.9, Absolute Neuts (auto) 2.7, Absolute Lymphs (auto) 0.94, Nucleated RBC % 0, Diff Path Review October sukhjinder, Platelet Estimate MKD DEC, RBC Morphology N CHROM, Anisocytosis 1+ 10/11/21 16:45: Sodium 133 L, Potassium 5.4 H, Chloride 100, Carbon Dioxide 29.0, Anion Gap 4 L, BUN 42 H, Creatinine 4.70 H, Estim Creat Clear Calc 14.81, Est GFR (MDRD) Af Amer 12 L, Est GFR (MDRD) Non-Af 10 L, BUN/Creatinine Ratio 8.9 L, Glucose 242 H, Calcium 8.7, Troponin I High Sens 5 10/11/21 16:45: Magnesium 2.0 10/11/21 21:00: WBC 5.0, RBC 2.88 L, Hgb 10.0 L, Hct 31.4 L, MCV 109.0 H, MCH 34.7 H, MCHC 31.8 L, RDW Std Deviation 70.7 H, RDW Coeff of Kusum 17.7 H, Plt Count 43 L*, MPV 11.9, Differential Comment SCANNED, Diff Path Review October sukhjinder 10/11/21 22:40: POC Glucose 188 H 10/12/21 05:40: WBC 5.4, RBC 2.77 L, Hgb 9.5 L, Hct 30.3 L, MCV 109.4 H, MCH 34.3 H, MCHC 31.4 L, RDW Std Deviation 70.7 H, RDW Coeff of Kusum 17.5 H, Plt Count 45 L*, MPV 12.2 H, Immature Gran % (Auto) 0.400, Neut % (Auto) 69.3, Lymph % (Auto) 16.4 L, [place] % (Auto) 11.4 H, Eos % (Auto) 1.9, Baso % (Auto) 0.6, Absolute Neuts (auto) 3.7, Absolute Lymphs (auto) 0.88, Nucleated RBC % 0, Differential Comment SCANNED, Diff Path Review October sukhjinder, Polychromasia 1+ 10/12/21 05:40: Sodium 134 L, Potassium 5.1, Chloride 101, Carbon Dioxide 27.0, Anion Gap 6, BUN 46 H, Creatinine 4.98 H, Estim Creat Clear Calc 13.98, Est GFR (MDRD) Af Amer 11 L, Est GFR (MDRD) Non-Af 9 L, BUN/Creatinine Ratio 9.2 L, Glucose 139 H, Calcium 8.4 L 10/12/21 05:40: Troponin I High Sens 8 10/12/21 06:32: POC Glucose 125 H Micro: Microbiology 10/07/21 16:05 Interface Orders SARS-CoV-2 Antigen (Rapid) - Final ABG Data ABG results: ABG 10/11/21 17:10 Specimen Type ART Sample Site R Brach pH 7.39 Bicarbonate Actual 28.4 H Total CO2 30 Base Excess 3 H O2 Saturation 94 L ABG pCO2 47.1 H ABG pO2 71 L Mike Test N/A O2 Delivery Device Cannula Liter Flow 2.0 Physical Exam Extremity Extremity Narrative: Left upper extremity is clean and dry with dressings intact. Excellent palpable thrill. Left hand is viable Assessment & Plan Assessment/Plan (1) Postprocedural hypotension: PLAN: Patient markedly improved status post post general anesthesia complications. Blood loss during the procedure 150 cc so no evidence for blood loss related hypotension. Dr. Emory Dallas felt that the patient presented dehydrated for her surgery and this led in part to her hypotension. This does not explain her profound lethargy but likely medication reaction which fortunately has resolved Plan surgical follow-up in 1 week. Very much appreciate assistance from the hospitalist service
[2021-10-12 07:40] LABS: Troponin-I HS 8 pg/mL (3.0-54.0)
[2021-10-12] MEDS: Calcium Acetate 667 MG Capsule 2001 MG PO (08:36)
[2021-10-12] MEDS: Folic Acid/Vitamin B Comp W-C 1 Capsule 2 CAP PO (08:36)
--- NOTE | 2021-10-12 08:54 | PCM.DC ---
Discharge Instructions Diet Discharge Diet: Renal Diet Activity Keep extremity elevated above heart level: - (Keep arm elevated above the heart level for 3 days.) Dressing / Incision Call your doctor if your incision/area has: Continuous Slow Oozing, Sudden Increased Bleeding (apply pressure and call your doctor.), Increased Pain/ Swelling, Increased Redness and Foul Smelling Discharge Call your doctor if you observe: Fever of 101 or Higher Suture Line Care: Avoid Pulling/Pushing and Avoid Pinching/Bending Cleanse incision/area with: Keep Dressing Clean & Dry Additional Dressing/Incision Instructions:: Elevate your left arm for comfort and to limit swelling. Hopefully the dressing will stay clean and dry and can be left in place to your office follow-up. Follow Up Care Please Follow Up With: Dinesh Polanco MD When: 1 week Test Results: Test results from this visit will be discussed in further detail at your follow-up appointment, if applicable. Discharge Plan Admission Admit Date/Time: 10/11/21 19:37 Primary Reason for Your Visit: Stage V chronic renal failure in need of arteriovenous hemodialysis access Attending Provider: Spencer Marrero Primary Care Provider: Bailey Toribio Consulting Providers: Isiah Cameron Discharge Orders/Prescriptions Prescriptions: New tramadol 50 mg tablet 50 mg PO Q8H PRN (Reason: pain) 3 Days Qty: 10 RF: 0 Continued atorvastatin 10 MG tablet 10 mg PO DAILY RF: 0 lacosamide [Vimpat] 100 mg tablet 100 mg PO BID RF: 0 aspirin 81 mg tablet,delayed release (DR/EC) 81 mg PO DAILY RF: 0 B complex-vitamin C-folic acid 1 mg Tablet 1 tab PO DAILY RF: 0 trazodone 50 mg tablet 25 mg PO QHS RF: 0 gabapentin 100 mg capsule 200 mg PO BID RF: 0 calcium acetate(phosphat bind) 667 mg Capsule 2,001 mg PO TID RF: 0 insulin aspart U-100 [Novolog Flexpen U-100 Insulin] 100 unit/mL (3 mL) Insulin Pen 3 - 5 unit SUBCUT TIDCM RF: 0 omeprazole 20 mg Capsule,Delayed Release(Dr/Ec) 20 mg PO DAILY RF: 0 midodrine 5 mg Tablet 10 mg PO TIDCM Qty: 90 RF: 0 latanoprost [Xalatan] 0.005 % Drops 1 drp EACH EYE QPM RF: 0 carvedilol 12.5 mg Tablet 12.5 mg PO BID RF: 0 lisinopril [Zestril] 10 mg Tablet 10 mg PO DAILY RF: 0 acetaminophen [Tylenol] 325 mg Capsule 650 mg PO Q4H PRN (Reason: Pain) RF: 0 cholecalciferol (vitamin D3) [Vitamin D3] 125 mcg (5,000 unit) Tablet 125 mcg PO KELLOGG RF: 0 Lantus Solostar U-100 Insulin 100 unit/mL (3 mL) insulin pen 15 unit subcut BID Qty: 0 RF: 0 B complex with C 20-folic acid 1 mg Capsule 22 cap PO DAILY RF: 0 Referrals / Follow Up: Bailey Toribio MD [Primary Care Provider] - Within 2 Weeks Dinesh Polanco MD [STAFF PHYSICIAN] - Within 1 Week Disposition Disposition (needs filled in before D/C Order can be placed): Home, Self Care
--- NOTE | 2021-10-12 09:01 | PCM.DC.SUM ---
Providers Date of Admission: 10/11/21 Primary Care Physician: Dr. Bailey Toribio MD Consultations 10/11/21 17:45 Consult: Hospitalist Routine Consulting Provider: Isiah Cameron Reason for Consult: Post-op Hypotension EMERGENT Consult: No MD Notified: Yes Date Notified: 10/11/21 Time Notified: 17:45 Method of Notification: Verbal Comments:: Dr. Burt nunn hospitalist, awaiting call back Reason For Visit: POST PROCEDURAL HYPOTENSION Diagnosis Discharge Diagnosis (1) Postprocedural hypotension: Status: Acute Code(s): I95.81 - Postprocedural hypotension Medications at Discharge Home Medications atorvastatin 10 mg PO DAILY 09/06/19 lacosamide [Vimpat] 100 mg PO BID 02/22/21 B complex-vitamin C-folic acid 1 tab PO DAILY 03/01/21 aspirin 81 mg PO DAILY 03/01/21 gabapentin 200 mg PO BID 04/30/21 trazodone 25 mg PO QHS 04/30/21 calcium acetate(phosphat bind) 2,001 mg PO TID 06/18/21 insulin aspart U-100 [Novolog Flexpen U-100 Insulin] 3 - 5 unit SUBCUT TIDCM 06/18/21 omeprazole 20 mg PO DAILY 06/18/21 midodrine 10 mg PO TIDCM #90 tab 07/14/21 acetaminophen [Tylenol] 650 mg PO Q4H PRN 08/16/21 carvedilol 12.5 mg PO BID 08/16/21 cholecalciferol (vitamin D3) [Vitamin D3] 125 mcg PO KELLOGG 08/16/21 latanoprost [Xalatan] 1 drp EACH EYE QPM 08/16/21 lisinopril [Zestril] 10 mg PO DAILY 08/16/21 Lantus Solostar U-100 Insulin 15 unit SUBCUT BID #0 ml 08/17/21 B complex with C 20-folic acid 22 cap PO DAILY 10/04/21 tramadol 50 mg PO Q8H PRN 3 Days #10 tab 10/11/21 Hospital Course Operations - (Transposition left upper arm basilic vein to brachial artery arteriovenous hemodialysis fistula creation) Procedures None Summary of Care Provided Minutes Spent on Discharge: 26 Hospital Course: This is a 75-year-old female who underwent a Transposition left upper arm basilic vein to brachial artery arteriovenous hemodialysis fistula creation on the . Patient was hypotensive in the PACU. Patient did receive IV fluids in the PACU and blood pressure has stabilized. Patient did have slight drop in her hemoglobin but did not require any transfusions. Patient does not qualify as acute blood loss anemia. Patient relates that she gets hypotensive after her procedures including surgeries and hemodialysis. Patient is on chronic midodrine. Her hypotensive episode was likely multifactorial: Due to the surgery, medications. Cannot verify the patient was dehydrated as stipulated in surgical note. Patient is hemodynamically stable at this time and is stable for discharge. Today is her normal dialysis day and if we can verify the patient can have an earlier dialysis the then patient could be discharged earlier if not then she may require to get dialysis while she was here. Patient's platelet count was 45,000 today. This is around her baseline. No indication for platelet transfusion. Physical Exam Const alert and no apparent distress Constitutional Narrative: Up in bed eating breakfast HEENT normocephalic, head/scalp atraumatic and hearing grossly normal bilaterally Resp normal respiratory effort, no retractions, no use of accessory muscles and clear to auscultation bilaterally Cardio regular rate, regular rhythm, S1 normal heart sound and S2 normal heart sound Extremity Extremity Narrative: Right arm wrapped. Did not remove. Normal cap refills no digits on the left upper extremity Weight / BMI Weight Weight: 93.5 kg Body Mass Index (BMI) 40.4 ABG / Lab / Microbiology Data Result Diagrams: 10/12/21 05:40 10/12/21 05:40 Laboratory: Laboratory Results - last 24 hr 10/11/21 10:47: WBC 5.2, RBC 3.07 L, Hgb 10.7 L, Hct 34.1 L, MCV 111.1 H, MCH 34.9 H, MCHC 31.4 L, RDW Std Deviation 72.0 H, RDW Coeff of Kusum 17.7 H, Plt Count 44 L*, MPV 11.5, Diff Path Review October10/11/21 10:47: Sodium 131 L, Potassium 4.9, Chloride 96 L, Carbon Dioxide 31.0, Anion Gap 4 L, BUN 41 H, Creatinine 4.56 H, Est GFR (MDRD) Af Amer 12 L, Est GFR (MDRD) Non-Af 10 L, BUN/Creatinine Ratio 9.0 L, Glucose 386 H, Calcium 8.7 10/11/21 11:11: POC Glucose 389 H 10/11/21 15:53: POC Glucose 268 H 10/11/21 16:45: WBC 4.4, RBC 2.69 L, Hgb 9.1 L, Hct 29.6 L, MCV 110.0 H, MCH 33.8 H, MCHC 30.7 L, RDW Std Deviation 71.6 H, RDW Coeff of Kusum 17.8 H, Plt Count 49 L*, MPV 12.8 H, Immature Gran % (Auto) 0.500, Neut % (Auto) 61.1, Lymph % (Auto) 21.2, Hyde % (Auto) 13.8 H, Eos % (Auto) 2.5, Baso % (Auto) 0.9, Absolute Neuts (auto) 2.7, Absolute Lymphs (auto) 0.94, Nucleated RBC % 0, Diff Path Review October sukhjinder, Platelet Estimate MKD DEC, RBC Morphology N CHROM, Anisocytosis 1+ 10/11/21 16:45: Sodium 133 L, Potassium 5.4 H, Chloride 100, Carbon Dioxide 29.0, Anion Gap 4 L, BUN 42 H, Creatinine 4.70 H, Estim Creat Clear Calc 14.81, Est GFR (MDRD) Af Amer 12 L, Est GFR (MDRD) Non-Af 10 L, BUN/Creatinine Ratio 8.9 L, Glucose 242 H, Calcium 8.7, Troponin I High Sens 5 10/11/21 16:45: Magnesium 2.0 10/11/21 21:00: WBC 5.0, RBC 2.88 L, Hgb 10.0 L, Hct 31.4 L, MCV 109.0 H, MCH 34.7 H, MCHC 31.8 L, RDW Std Deviation 70.7 H, RDW Coeff of Kusum 17.7 H, Plt Count 43 L*, MPV 11.9, Differential Comment SCANNED, Diff Path Review Jia slaughter 10/11/21 22:40: POC Glucose 188 H 10/12/21 05:40: WBC 5.4, RBC 2.77 L, Hgb 9.5 L, Hct 30.3 L, MCV 109.4 H, MCH 34.3 H, MCHC 31.4 L, RDW Std Deviation 70.7 H, RDW Coeff of Kusum 17.5 H, Plt Count 45 L*, MPV 12.2 H, Immature Gran % (Auto) 0.400, Neut % (Auto) 69.3, Lymph % (Auto) 16.4 L, Hyde % (Auto) 11.4 H, Eos % (Auto) 1.9, Baso % (Auto) 0.6, Absolute Neuts (auto) 3.7, Absolute Lymphs (auto) 0.88, Nucleated RBC % 0, Differential Comment SCANNED, Diff Path Review May foll, Polychromasia 1+ 10/12/21 05:40: Sodium 134 L, Potassium 5.1, Chloride 101, Carbon Dioxide 27.0, Anion Gap 6, BUN 46 H, Creatinine 4.98 H, Estim Creat Clear Calc 13.98, Est GFR (MDRD) Af Amer 11 L, Est GFR (MDRD) Non-Af 9 L, BUN/Creatinine Ratio 9.2 L, Glucose 139 H, Calcium 8.4 L 10/12/21 05:40: Troponin I High Sens 8 10/12/21 06:32: POC Glucose 125 H 10/12/21 07:15: Troponin I High Sens 8 Microbiology: Microbiology 10/07/21 16:05 Interface Orders SARS-CoV-2 Antigen (Rapid) - Final ABG: ABG 10/11/21 17:10 Specimen Type ART Sample Site R Brach pH 7.39 Bicarbonate Actual 28.4 H Total CO2 30 Base Excess 3 H O2 Saturation 94 L ABG pCO2 47.1 H ABG pO2 71 L Mike Test N/A O2 Delivery Device Cannula Liter Flow 2.0 D/C Instructions Discharge Diet: Renal Diet Keep extremity elevated above heart level: - (Keep arm elevated above the heart level for 3 days.) Call your doctor if your incision/area has: Continuous Slow Oozing, Sudden Increased Bleeding (apply pressure and call your doctor.), Increased Pain/ Swelling, Increased Redness and Foul Smelling Discharge Call your doctor if you observe: Fever of 101 or Higher Suture Line Care: Avoid Pulling/Pushing and Avoid Pinching/Bending Cleanse incision/area with: Keep Dressing Clean & Dry Additional Dressing/Incision Instructions: Elevate your left arm for comfort and to limit swelling. Hopefully the dressing will stay clean and dry and can be left in place to your office follow-up. Please Follow Up With: Dinesh Polanco MD When: 1 week Meaningful Use Info Meaningful Use Diagnoses (Choose all that apply): None applicable Discharge Plan Admission Admit Date/Time: 10/11/21 19:37 Primary Reason for Your Visit: Stage V chronic renal failure in need of arteriovenous hemodialysis access Attending Provider: Spencer Marrero Primary Care Provider: Bailey Toribio Consulting Providers: Isiah Cameron Discharge Orders/Prescriptions Prescriptions: New tramadol 50 mg tablet 50 mg PO Q8H PRN (Reason: pain) 3 Days Qty: 10 RF: 0 Continued atorvastatin 10 MG tablet 10 mg PO DAILY RF: 0 lacosamide [Vimpat] 100 mg tablet 100 mg PO BID RF: 0 aspirin 81 mg tablet,delayed release (DR/EC) 81 mg PO DAILY RF: 0 B complex-vitamin C-folic acid 1 mg Tablet 1 tab PO DAILY RF: 0 trazodone 50 mg tablet 25 mg PO QHS RF: 0 gabapentin 100 mg capsule 200 mg PO BID RF: 0 calcium acetate(phosphat bind) 667 mg Capsule 2,001 mg PO TID RF: 0 insulin aspart U-100 [Novolog Flexpen U-100 Insulin] 100 unit/mL (3 mL) Insulin Pen 3 - 5 unit SUBCUT TIDCM RF: 0 omeprazole 20 mg Capsule,Delayed Release(Dr/Ec) 20 mg PO DAILY RF: 0 midodrine 5 mg Tablet 10 mg PO TIDCM Qty: 90 RF: 0 latanoprost [Xalatan] 0.005 % Drops 1 drp EACH EYE QPM RF: 0 carvedilol 12.5 mg Tablet 12.5 mg PO BID RF: 0 lisinopril [Zestril] 10 mg Tablet 10 mg PO DAILY RF: 0 acetaminophen [Tylenol] 325 mg Capsule 650 mg PO Q4H PRN (Reason: Pain) RF: 0 cholecalciferol (vitamin D3) [Vitamin D3] 125 mcg (5,000 unit) Tablet 125 mcg PO KELLOGG RF: 0 Lantus Solostar U-100 Insulin 100 unit/mL (3 mL) insulin pen 15 unit subcut BID Qty: 0 RF: 0 B complex with C 20-folic acid 1 mg Capsule 22 cap PO DAILY RF: 0 Referrals / Follow Up: Bailey Toribio MD [Primary Care Provider] - Within 2 Weeks Dinesh Polanco MD [STAFF PHYSICIAN] - Within 1 Week Disposition Disposition (needs filled in before D/C Order can be placed): Home, Self Care Charges/Coding Visit Charges Inpatient E&M: 17998 Disch Hosp
[2021-10-12] MEDS: Pantoprazole Sodium 20 MG Tablet PO (09:48)
[2021-10-12] MEDS: Midodrine HCl 5 MG Tablet 10 MG PO (09:48)
[2021-10-12] MEDS: Aspirin E.C. 81 MG Tablet PO (09:48)
--- NOTE | 2021-10-12 09:56 | CASEMGMT ---
Pt normally runs TTS at 1000 but pt is switching to MWF starting tomorrow. This RN CM spoke with Dr. Steward and pt does need to run today. Call to Tabitha at [facility] and she states that they can take pt still today but would like to get her there by noon at the lastest. This RN CM to room and pt updated on all, voices understanding. Pt states daughter can pick her up and she is placing call to her at this time to come pick her up. Kerrie MALDONADO updated, voices understanding. Call back to Tabitha at [facility] to notify that pt will be coming to run today, voices understanding. Marci MALDONADO CM
--- NOTE | 2021-10-12 10:07 | CASEMGMT ---
ERICA TREVIÑO assessment: Face to Face with patient for initial transition planning/care coordination assessment. ERICA TREVIÑO introduced self and role at [facility], pt voices understanding and consents to assessment. Pt is sitting up in bed in no distress on room air. Pt is A/Ox 4 and answers questions appropriately. Care providers, pharmacy, and demographics verified. Presentation: Hypotension s/p fistula placement Admitting dx: Post procedural hypotension PCP: Malu Specialists: Bin nephjimena; January cardio Preferred Pharmacy: [facility] Living Will/HPOA: Pt has HPOA and it is on file at [facility]. Pt's daughter, Beverly Butler, is HPOA. LNOK: Beverly Butler, daughter/HPOA; Jose G Null, son Living Arrangements: Pt lives alone in 1 story home and states no concerns at home. Pt states is independent with ADL's. Transportation: Pt states daughter drives or has rides set up thru [facility] for HD treatment and states no transportation concerns. DME/HHC: Pt has the following DME: cane, walker, rollator, w/c, medical alert, grab bars, and lift chair. Pt declines need for any further DME. Pt is active with [facility]HC for SN and aide thru [facility] MWF [id number]. Pt states has been to [place] and [facility] in past. Pt has HD MWF at 1220(new schedule that she starts tomorrow). Pt states no concerns with going home at time of discharge. Pt is retired. Pt does not smoke cigarettes or drink ETOH. Pt states no further concerns/needs. CM to follow for any further discharge planning/needs. Advised pt to ask for CM if any further questions/concerns/needs arise, voices understanding. Pt Goal: Home Plan: Home after dialysis at OP center. [place] ERICA TREVIÑO
[2021-10-12] MEDS: Lacosamide 100 MG Tablet PO (10:09)
--- NOTE | 2021-10-12 10:58 | NURSING ---
Pt informed that pharmacy wont fill rx for tramadol d/t there being codeine in it. Advised pt not to fill prescription d/t allergy and that this RN is waiting for a reply from Dr Polanco. Pt getting anxious as she needs to leave to make her dialysis chair time and voiced understanding that she should not take tramadol d/t the allergy to codeine. Pt also stated I can just take tylenol.
--- NOTE | 2021-10-12 11:28 | PHA.DC.MR ---
Pharmacy Service has performed discharge medication reconciliation for this patient. The patient's discharge medication list was reviewed for discrepancies and discrepancies were resolved. Medication education papers prepared, patient already discharged when counseling attempted. Home Medications atorvastatin 10 mg PO DAILY 09/06/19 lacosamide [Vimpat] 100 mg PO BID 02/22/21 B complex-vitamin C-folic acid 1 tab PO DAILY 03/01/21 aspirin 81 mg PO DAILY 03/01/21 gabapentin 200 mg PO BID 04/30/21 trazodone 25 mg PO QHS 04/30/21 calcium acetate(phosphat bind) 2,001 mg PO TID 06/18/21 insulin aspart U-100 [Novolog Flexpen U-100 Insulin] 3 - 5 unit SUBCUT TIDCM 06/18/21 omeprazole 20 mg PO DAILY 06/18/21 midodrine 10 mg PO TIDCM #90 tab 07/14/21 acetaminophen [Tylenol] 650 mg PO Q4H PRN 08/16/21 carvedilol 12.5 mg PO BID 08/16/21 cholecalciferol (vitamin D3) [Vitamin D3] 125 mcg PO KELLOGG 08/16/21 latanoprost [Xalatan] 1 drp EACH EYE QPM 08/16/21 lisinopril [Zestril] 10 mg PO DAILY 08/16/21 Lantus Solostar U-100 Insulin 15 unit SUBCUT BID #0 ml 08/17/21 B complex with C 20-folic acid 22 cap PO DAILY 10/04/21 tramadol 50 mg PO Q8H PRN 3 Days #10 tab 10/11/21
[2021-10-13 08:30] LABS: Pathologist Review Reviewed
[2021-10-13 08:31] LABS: Pathologist Review Reviewed
[2021-10-13 08:32] LABS: Pathologist Review Reviewed
[2021-10-13 08:34] LABS: Pathologist Review Reviewed
== END 2021-10-12 10:54 | disposition home or self-care (01) ==
LOC: PCU 20:00
PROVIDERS: Anesthesiology; Hospitalist; Nurse Practitioner Family; Admitting Provider Surgery; PCP Internal Medicine; Referring Provider Surgery
DX: I95.81 Postprocedural hypotension (principal); I13.2 Hypertensive heart and chronic kidney disease with heart failure and with stage 5 chronic kidney disease, or end stage renal disease; Z99.2 Dependence on renal dialysis; Z49.01 Encounter for fitting and adjustment of extracorporeal dialysis catheter; M06.9 Rheumatoid arthritis, unspecified; J44.9 Chronic obstructive pulmonary disease, unspecified; I50.32 Chronic diastolic (congestive) heart failure; I27.21 Secondary pulmonary arterial hypertension; E11.22 Type 2 diabetes mellitus with diabetic chronic kidney disease; E11.42 Type 2 diabetes mellitus with diabetic polyneuropathy; N18.6 End stage renal disease; I48.91 Unspecified atrial fibrillation; E66.01 Morbid (severe) obesity due to excess calories; Z68.41 Body mass index [BMI] 40.0-44.9, adult; G40.909 Epilepsy, unspecified, not intractable, without status epilepticus; D69.6 Thrombocytopenia, unspecified; Z79.4 Long term (current) use of insulin; D50.9 Iron deficiency anemia, unspecified; E78.5 Hyperlipidemia, unspecified; E86.0 Dehydration; F41.1 Generalized anxiety disorder; Z79.82 Long term (current) use of aspirin; Z87.891 Personal history of nicotine dependence; Z79.899 Other long term (current) drug therapy; G47.33 Obstructive sleep apnea (adult) (pediatric); D63.8 Anemia in other chronic diseases classified elsewhere
CPT/HCPCS: 36819; 01844; 36415; 36600; 80048; 82803; 82962; 83735; 84484; 85025; 85027; 87426; 93005; 99218; J7030; J7040; J7050; A4216; G0378

== ENCOUNTER 2021-11-20 14:37 | Emergency (ER) | payer MEDICARE, MEDICAID, SELFPAY ==
[2021-11-20] VITALS (7 sets, daily range): BP systolic 120–140; BP diastolic 45–82; PULSE 62–68; RESP 17–24; TEMP 36.7–37.2; O2SAT 91–97; BMI 39.4
--- NOTE | 2021-11-20 15:12 | EKG12_ITS ---
Test Reason : SOB Blood Pressure : / mmHG Vent. Rate : 067 BPM Atrial Rate : 067 BPM P-R Int : 184 ms QRS Dur : 044 ms QT Int : 564 ms P-R-T Axes : 000 013 105 degrees QTc Int : 595 ms Normal sinus rhythm Low voltage QRS Nonspecific ST and T wave abnormality Abnormal ECG Confirmed by DUTCH BOWMAN, ANTONIA ([id number]), makeup editor DENZEL PANTOJA ([id number]) on 11/22/2021 11:37:47 AM Referred By: JOVAN Confirmed By:ANTONIA JUDD MD
[2021-11-20] MEDS: Ipratropium/Albuterol Sulfate 3 ML AMPUL.NEB INHALATION (15:38)
--- NOTE | 2021-11-20 15:55 | RAD_ITS ---
HISTORY: dyspnea, cough. TECHNIQUE: XR Chest 1 View. COMPARISON: 07/10/2021. FINDINGS: CARDIOMEDIASTINAL BORDERS: Cardiac silhouette within normal limits in size. Mediastinal contour unchanged with calcification of the aorta. Double-lumen right internal jugular central venous catheter tip at the level of the superior vena cava. LUNGS: Mild interstitial and linear bibasilar opacities. PLEURA: Trace right pleural effusion. OSSEOUS STRUCTURES: Degenerative change. RAD/Chest 1 View (Portable) IMPRESSION: Trace right pleural effusion with mild pulmonary vascular congestion and bibasilar atelectasis. Electronically Signed: Drea Rodriguez MD at 16:16 EDT ,
[2021-11-20 17:14] LABS: Absolute Lymphocyte Count 0.85 X10^3/uL (0.83-4.51); Absolute Neutrophil Count 2.9 X10^3/uL (2.0-7.7); Basophil# 0.03 X10^3/uL; Basophil% 0.7 % (0-1); Eosinophils% 2.3 % (0-5); Hemoglobin 12.3 g/dL (12.0-15.0); Lymphocyte # 0.85 X10^3/ul (0.83-4.51); Lymphocyte % 19.5 % (19-41); Mean Corp Hgb Conc 32.4 g/dL (32-36); Mean Corpuscular Hgb 35.1 pg (27.0-32.0); Mean Corpuscular Volume 108.6 fL (81-99); Mean Platelet Vol. 12.2 fl (6.2-12.0); Monocyte# 0.49 X10^3/uL; Monocyte% 11.2 % (0-10); NRBC Flagged by Analyzer 0 % (0-5); Neutrophil # 2.88 X10^3/uL (2.7-7.7); Neutrophil % 66.1 % (47-70); POSITIVE COUNT YES; Platelet Count 70 K/mm3 (150-450); RBC Distribution Width CV 15.1 % (11.6-14.6); RBC Distribution Width SD 59.4 fl (35.1-43.9); White Blood Count 4.4 K/mm3 (4.4-11.0)
[2021-11-20 17:15] LABS: Differential Indicated SCAN CRITERIA MET
[2021-11-20 17:46] LABS: Anisocytosis 1+; Differential Comment SCANNED; Macrocytosis 2+; Platelet Estimate MOD DEC (ADEQ)
[2021-11-20 17:47] LABS: Polychromasia RARE
[2021-11-20 17:51] LABS: Anion Gap 6 (5-15); BUN 20 mg/dL (7-18); BUN/Creat Ratio 6.8 RATIO (10-20); Calcium,Total 8.7 mg/dL (8.5-10.1); Chloride 96 mmol/L (98-107); Creatinine, Serum 2.94 mg/dL (0.55-1.02); EST Glomerular Filtration Rate 17 mL/min (>60); Est Glom Filt Rate - Afr Amer 20 mL/min (>60); Estimated Creatinine Clearance 11.88 ml/min; Glucose 276 mg/dL (74-106); Potassium 4.8 mmol/L (3.5-5.1); Sodium Level 133 mmol/L (136-145); Troponin-I HS 7 pg/mL (3.0-54.0)
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
== END 2021-11-20 19:40 | disposition home or self-care (01) ==
PROVIDERS: Emergency Provider Emergency Medicine; PCP Internal Medicine; Visit Provider Emergency Medicine
DX: J10.1 Influenza due to other identified influenza virus with other respiratory manifestations (principal); I13.2 Hypertensive heart and chronic kidney disease with heart failure and with stage 5 chronic kidney disease, or end stage renal disease; N18.6 End stage renal disease; I50.32 Chronic diastolic (congestive) heart failure; I27.21 Secondary pulmonary arterial hypertension; E11.42 Type 2 diabetes mellitus with diabetic polyneuropathy; E11.22 Type 2 diabetes mellitus with diabetic chronic kidney disease; I48.91 Unspecified atrial fibrillation; E78.5 Hyperlipidemia, unspecified; F31.9 Bipolar disorder, unspecified; Z79.4 Long term (current) use of insulin; Z79.82 Long term (current) use of aspirin; Z79.899 Other long term (current) drug therapy; I25.2 Old myocardial infarction; Z87.891 Personal history of nicotine dependence
CPT/HCPCS: 71045; 80048; 84484; 85025; 87428; 93005; 94640; 99284; A4216

== ENCOUNTER 2021-11-23 14:46 | Emergency (ER) | payer MEDICARE, MEDICAID, SELFPAY ==
[2021-11-23 14:49] VITALS: BP 137/50; PULSE 72; RESP 16; TEMP 36.6; O2SAT 95; BMI 39.4
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
[2021-11-23 16:16] VITALS: RESP 16
== END 2021-11-23 16:24 | disposition home or self-care (01) ==
LOC: ED 15:46
PROVIDERS: Emergency Provider Emergency Medicine; PCP Internal Medicine; Visit Provider Emergency Medicine
DX: T82.41XA Breakdown (mechanical) of vascular dialysis catheter, initial encounter (principal); I13.2 Hypertensive heart and chronic kidney disease with heart failure and with stage 5 chronic kidney disease, or end stage renal disease; Z99.2 Dependence on renal dialysis; J44.9 Chronic obstructive pulmonary disease, unspecified; I50.32 Chronic diastolic (congestive) heart failure; I27.21 Secondary pulmonary arterial hypertension; E11.22 Type 2 diabetes mellitus with diabetic chronic kidney disease; N18.6 End stage renal disease; Z79.4 Long term (current) use of insulin; Z20.822 Contact with and (suspected) exposure to COVID-19; Y92.538 Other ambulatory health services establishments as the place of occurrence of the external cause; E78.5 Hyperlipidemia, unspecified; Z79.82 Long term (current) use of aspirin; Z79.899 Other long term (current) drug therapy; Z87.891 Personal history of nicotine dependence
CPT/HCPCS: 87635; 99282; U0003; U0005

== ENCOUNTER 2021-12-29 16:11 | Emergency (ER) | payer MEDICARE, MEDICAID, SELFPAY ==
[2021-12-29 16:12] VITALS: BP 124/45; PULSE 63; RESP 14; TEMP 36.4; O2SAT 98; BMI 40.6
--- NOTE | 2021-12-29 16:31 | CT_ITS ---
EXAM: CT ABDOMEN AND PELVIS WITHOUT INTRAVENOUS CONTRAST CLINICAL INDICATION: flank pain. APPY,IBIS,HYSTER AND CKD ON DIALYSIS TECHNIQUE: Helically acquired images were obtained of the abdomen and pelvis without intravenous contrast. This CT exam was performed using one or more of the following dose reduction techniques: automated exposure control, adjustment of the mA and/or kV according to patient size, and/or use of iterative reconstruction technique. This report was created using [employer] report generation technology. COMPARISON: 07/10/2021 FINDINGS: LOWER THORAX: There is a moderate right-sided pleural effusion with a smaller left-sided effusion. These have increased from the reference exam. No cardiomegaly. ABDOMEN: LIVER: Unremarkable. Homogeneous. GALLBLADDER AND BILE DUCTS: There are surgical clips from a cholecystectomy. No intra- or extrahepatic biliary ductal dilation. PANCREAS: Unremarkable. No focal cystic mass. SPLEEN: Unremarkable. Normal size without focal cystic or solid mass. ADRENALS: Unremarkable. No nodules. KIDNEYS AND URETERS: Unremarkable. Normal renal size and position. No hydronephrosis. STOMACH AND BOWEL: Unremarkable. No stomach or bowel distention. No focal inflammatory change. PELVIS: APPENDIX: No evidence of acute appendicitis. BLADDER: Unremarkable. REPRODUCTIVE: The patient status post hysterectomy. ABDOMEN and PELVIS: INTRAPERITONEAL SPACE: There are surgical clips in the pelvis. BONES/JOINTS: Unremarkable. No suspicious lytic or blastic abnormality. SOFT TISSUES: There is edema in the subcutaneous tissues which may represent anasarca. There is a mild to moderate amount of free fluid in the pelvis. No discrete abdominal or pelvic wall hernia. VASCULATURE: Unremarkable. Abdominal aorta is non-dilated. LYMPH NODES: Unremarkable. No enlarged lymph nodes. CT/Abdomen/Pelvis without Cont IMPRESSION: 1. [id number]-bl-[id number] amount of free fluid in the pelvis. There is edema in the subcutaneous tissue represent anasarca. No other acute abnormalities in the abdomen or pelvis. There has been very little change from the reference exam. 2. Bilateral pleural effusions larger on the right than on the left. Electronically Signed: Ronnie Funes MD at 17:37 EDT ,
[2021-12-29 16:53] LABS: Mucous, Urine 0 SEEN /hpf (<or=2+)
[2021-12-29 17:17] LABS: Color, Urine Yellow (Yellow); Glucose, Dipstick 50 mg/dl (Normal); Ketone-Dipstick Negative (Negative); Leukocyte Esterase-Dipstick 500 /ul (Negative); Nitrite-Dipstick Negative (Negative); Occult Blood-Urine 250 /ul (Negative); Protein-Dipstick 500 mg/dl (Negative); Urine Bilirubin Dipstick Negative (Negative); Urine Clarity Cloudy (Clear); Urine Urobilinogen Normal (Normal)
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
[2021-12-29 17:41] LABS: Bacteria 4+ /hpf (None Seen); Red Blood Cells-Urine 25-50 SEEN /hpf (0-5); Squamous Epithelial Cells - UA 5-10 SEEN /hpf (5-10); White Blood Cells >100 SEEN /hpf (0-5)
[2021-12-29] MEDS: Nitrofurantoin Macrocrystals 100 MG Capsule PO (20:41)
[2021-12-29 20:48] VITALS: BP 134/78; PULSE 82; RESP 16; O2SAT 98
== END 2021-12-29 20:50 | disposition home or self-care (01) ==
PROVIDERS: Emergency Provider Emergency Medicine; PCP Internal Medicine; Visit Provider Emergency Medicine
DX: N39.0 Urinary tract infection, site not specified (principal); I13.2 Hypertensive heart and chronic kidney disease with heart failure and with stage 5 chronic kidney disease, or end stage renal disease; J44.9 Chronic obstructive pulmonary disease, unspecified; I50.32 Chronic diastolic (congestive) heart failure; I27.20 Pulmonary hypertension, unspecified; F44.81 Dissociative identity disorder; E11.42 Type 2 diabetes mellitus with diabetic polyneuropathy; E11.22 Type 2 diabetes mellitus with diabetic chronic kidney disease; N18.6 End stage renal disease; E66.01 Morbid (severe) obesity due to excess calories; Z68.41 Body mass index [BMI] 40.0-44.9, adult; G40.909 Epilepsy, unspecified, not intractable, without status epilepticus; R31.9 Hematuria, unspecified; E78.5 Hyperlipidemia, unspecified; G47.33 Obstructive sleep apnea (adult) (pediatric); Z79.4 Long term (current) use of insulin; Z79.82 Long term (current) use of aspirin; Z87.891 Personal history of nicotine dependence; Z86.73 Personal history of transient ischemic attack (TIA), and cerebral infarction without residual deficits
CPT/HCPCS: 74176; 81001; 87086; 87088; 99283; P9612

== ENCOUNTER 2022-01-03 14:19 | Inpatient (IN) | payer MEDICARE, MEDICAID, SELFPAY ==
[2022-01-03] VITALS (14 sets, daily range): BP systolic 82–107; BP diastolic 22–48; PULSE 52–69; RESP 14–18; TEMP 35.9–36.6; O2SAT 88–100; BMI 44.9; BMI 42.4
--- NOTE | 2022-01-03 14:20 | CT_ITS ---
STUDY: CT HEAD STROKE PROTOCOL W/O CONTRAST INJECTION REASON FOR EXAM: Female, 76 years old. Neuro deficit, acute, stroke suspected RADIATION DOSAGE (If Supplied By Facility): CTDIvol = ( ) mGy, DLP = ( ) mGycm TECHNIQUE: Transaxial CT imaging of the brain was performed without administration of intravenous contrast material. Individualized dose optimization techniques were used for this CT. COMPARISON: 03/07/2021 FINDINGS: Normal soft tissue structures. Normal calvarium. Normal size ventricles and extra-axial spaces for the patient''s age. Normal white matter tracts of the cerebral hemispheres. Normal basal ganglia and thalami. Normal brainstem. Normal cerebellum. There is no intracranial hemorrhage. There are no findings of an acute ischemic infarction. Normal visualized paranasal sinuses. ASPECT score: CT/STROKE Brain/Head without Cont IMPRESSION: Normal unenhanced CT scan of the brain. N.B. : The above Results were Read Back by Colton Lee MD to Jose Matamoros and understanding confirmed on 01/03/2022 14:39:56 (ET). Electronically Signed: Colton Lee MD at 14:41 EDT ,
--- NOTE | 2022-01-03 14:20 | EKG12_ITS ---
Test Reason : STROKE Blood Pressure : / mmHG Vent. Rate : 057 BPM Atrial Rate : 057 BPM P-R Int : 188 ms QRS Dur : 052 ms QT Int : 436 ms P-R-T Axes : 025 085 063 degrees QTc Int : 424 ms Sinus bradycardia Low voltage QRS Nonspecific ST and T wave abnormality Abnormal ECG Confirmed by ANGELA BOWMAN, SANTHOSH ([id number]), supervising editor news reel RADHA TAPIA [id number]) on 01/05/2022 8:15:33 AM Referred By: Confirmed By:SANTHOSH MILLER MD
--- NOTE | 2022-01-03 14:21 | CT_ITS ---
STUDY: CTA HEAD AND NECK WITH CONTRAST REASON FOR EXAM: Female, 76 years old. Neuro deficit, acute, stroke suspected RADIATION DOSAGE (If Supplied By Facility): CTDIvol = ( 20.40 ) mGy, DLP = ( 668.57 ) mGycm TECHNIQUE: CT angiography was performed with a multi-detector CT scanner. Data acquisition was obtained from the skull base through the vertex following intravenous administration of IV 100mL [id number]-[id number]. MIP images were reconstructed from the axial data set. Post-processing of the angiographic images was performed, with multiplanar reformation and 3D reconstruction. Individualized dose optimization techniques were used for this CT. COMPARISON: No relevant priors. FINDINGS: Normal bilateral petrous carotid arteries. Normal right cavernous carotid artery with a normal supraclinoid bifurcation. Normal left cavernous carotid artery with a normal supraclinoid bifurcation. Normal right A1 segments of the anterior cerebral artery. Normal left A1 segments of the anterior cerebral artery. Normal intact anterior communicating artery (ACOM). Normal bilateral A2 segments of the anterior cerebral arteries. Normal right M1 and M2 segments of the middle cerebral arteries, with a normal M1 bifurcation. Normal left M1 and M2 segments of the middle cerebral arteries, with a normal M1 bifurcation. Normal right posterior communicating artery (PCOM). Normal left posterior communicating artery (PCOM). Normal bilateral vertebral arteries. Normal basilar artery with a normal basilar bifurcation. The visualized bilateral superior cerebellar (SCA) arteries are normal. Normal bilateral P1, P2 and visualized P3 segments of the posterior cerebral arteries. There is no demonstrated aneurysm of the [place]. There is no demonstrated abnormality of the visualized brain. AORTIC ARCH: Normal visualized aortic arch. Normal origins of the brachiocephalic, left common carotid, and left subclavian arteries. RIGHT CAROTID ARTERIES: Normal right common carotid artery (CCA). There is mild atherosclerotic plaque formation with minimal narrowing of the right carotid bulb. Normal origin of the right internal carotid (ICA) artery without a hemodynamically significant stenosis. Normal visualized cervical portion of the right internal carotid artery. Normal origin of the right external carotid artery (ECA). LEFT CAROTID ARTERIES: Normal left common carotid artery (CCA). There is mild atherosclerotic plaque formation with minimal narrowing of the left carotid bulb. There is mild atherosclerotic plaque formation of the origin of the left internal carotid artery with less than 50% cross sectional diameter stenosis. There is atherosclerotic tortuous elongation of the cervical portion of the left internal carotid artery. Normal origin of the left external carotid artery (ECA). VERTEBRAL ARTERIES: Normal bilateral vertebral arteries. CT/STROKE CTA Head AND Neck W/Con IMPRESSION: Normal CTA Head with contrast. No right carotid stenosis. Mild (20%) (left carotid stenosis. Patent vertebral arteries bilaterally. N.B. : The above Results were Read Back by Colton Lee MD to Jose Matamoros and understanding confirmed on 01/03/2022 15:08:07 (ET). Electronically Signed: Colton Lee MD at 15:09 EDT ,
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
[2022-01-03 14:53] LABS: Absolute Lymphocyte Count 0.74 X10^3/uL (0.83-4.51); Basophil# 0.02 X10^3/uL; Basophil% 0.4 % (0-1); Eosinophil# 0.09 X10^3/uL; Hematocrit 32.4 % (37-47); Hemoglobin 10.2 g/dL (12.0-15.0); Lymphocyte # 0.74 X10^3/ul (0.83-4.51); Lymphocyte % 16.5 % (19-41); Mean Corp Hgb Conc 31.5 g/dL (32-36); Mean Corpuscular Hgb 35.4 pg (27.0-32.0); Mean Corpuscular Volume 112.5 fL (81-99); Mean Platelet Vol. 12.2 fl (6.2-12.0); Monocyte# 0.58 X10^3/uL; Monocyte% 12.9 % (0-10); NRBC Flagged by Analyzer 0 % (0-5); Neutrophil # 3.04 X10^3/uL (2.7-7.7); POSITIVE COUNT YES; Platelet Count 50 K/mm3 (150-450); RBC Distribution Width CV 15.2 % (11.6-14.6); Red Blood Count 2.88 M/mm3 (4.2-5.4); White Blood Count 4.5 K/mm3 (4.4-11.0)
[2022-01-03 14:54] LABS: Differential Indicated SCAN CRITERIA MET
[2022-01-03 15:01] LABS: International Normalized Ratio 1.3; Prothrombin Time (Protime)PT. 15.8 SECONDS (11.7-14.9)
[2022-01-03 15:02] LABS: Partial Thromboplast Time 34.3 Seconds (24.1-36.2)
--- NOTE | 2022-01-03 15:02 | RAD_ITS ---
STUDY: X-RAY CHEST REASON FOR EXAM: Female, 76 years old. Neuro deficit, acute, stroke suspected TECHNIQUE: Single AP portable view of the chest. COMPARISON: 11/20/2021 FINDINGS: Interval removal of the tunneled right internal jugular dialysis catheter. Poor inspiration with some bibasilar atelectasis. There is no demonstrated pleural abnormality. There is moderate cardiac enlargement. Normal mediastinum and elva. Normal visualized pulmonary arteries. Normal visualized aortic arch and descending thoracic aorta. Normal visualized thoracic spine. Normal visualized ribs, clavicles, and shoulders. There is no demonstrated abnormality of the visualized soft tissue structures of the upper abdomen. RAD/Chest 1 View IMPRESSION: Poor inspiration with some bibasilar atelectasis. Electronically Signed: Colton Lee MD at 15:23 EDT ,
[2022-01-03 15:13] LABS: Anion Gap 7 (5-15); BUN 45 mg/dL (7-18); BUN/Creat Ratio 9.4 RATIO (10-20); Calcium,Total 8.5 mg/dL (8.5-10.1); Chloride 95 mmol/L (98-107); EST Glomerular Filtration Rate 9 mL/min (>60); Est Glom Filt Rate - Afr Amer 11 mL/min (>60); Estimated Creatinine Clearance 7.16 ml/min; Glucose 115 mg/dL (74-106); Sodium Level 131 mmol/L (136-145); Troponin-I HS 10 pg/mL (3.0-54.0)
[2022-01-03 15:17] LABS: AST(SGOT) 33 U/L (15-37); Alanine Aminotransfer ALT/SGPT 22 U/L (13-56); Albumin, Serum 2.8 g/dL (3.2-5.0); Alkaline Phosphatase 88 U/L (45-117); Bilirubin, Direct 0.38 mg/dL (0.00-0.30); Globulin 3.5 g/dL (2.2-4.2); Protein, Total 6.3 g/dL (6.4-8.2)
[2022-01-03] MEDS: 0.9% Normal Saline 1,000 ML 999 ML IV (15:30)
[2022-01-03 15:38] LABS: Lactic Acid 1.8 mmol/L (0.4-1.9)
[2022-01-03 15:41] LABS: Mucous, Urine 0 SEEN /hpf (<or=2+)
[2022-01-03 15:44] LABS: Color, Urine Yellow (Yellow); Glucose, Dipstick Normal (Normal); Ketone-Dipstick Negative (Negative); Leukocyte Esterase-Dipstick 500 /ul (Negative); Nitrite-Dipstick Negative (Negative); Occult Blood-Urine 250 /ul (Negative); Protein-Dipstick 500 mg/dl (Negative); Urine Bilirubin Dipstick Negative (Negative); Urine Urobilinogen Normal (Normal)
[2022-01-03 15:45] LABS: Urine Clarity Cloudy (Clear)
[2022-01-03 15:47] LABS: Differential Comment SCANNED
[2022-01-03 15:56] LABS: Bacteria 4+ /hpf (None Seen); Red Blood Cells-Urine 10-25 SEEN /hpf (0-5); Squamous Epithelial Cells - UA 5-10 SEEN /hpf (5-10); White Blood Cells >100 SEEN /hpf (0-5)
--- NOTE | 2022-01-03 16:21 | NURSING ---
[facility] STRO[facility]
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
[2022-01-03] MEDS: Ceftriaxone 1 GM/50 ML BAG IV (16:44)
[2022-01-03] MEDS: 0.9% Normal Saline 1,000 ML 100 ML IV (16:45)
--- NOTE | 2022-01-03 17:51 | NURSING ---
Rate of IV fluids increased from 100ml/hr to 250ml/hr per verbal order of Dr. Lee due to patient's low BP.
[2022-01-03 18:46] LABS: Bedside Glucose 160 mg/dL (74-106)
[2022-01-03] MEDS: Midodrine HCl 5 MG Tablet 10 MG PO (19:39)
[2022-01-03] MEDS: 0.9% Saline Lock 10 ML Syringe IV (21:31)
[2022-01-03 21:56] LABS: Bedside Glucose 150 mg/dL (74-106)
[2022-01-04] VITALS (13 sets, daily range): BP systolic 91–128; BP diastolic 39–52; PULSE 54–64; RESP 18; TEMP 36.6–37.1; O2SAT 91–97; BMI 42.4
[2022-01-04 04:25] LABS: Absolute Lymphocyte Count 0.75 X10^3/uL (0.83-4.51); Absolute Neutrophil Count 2.9 X10^3/uL (2.0-7.7); Basophil# 0.02 X10^3/uL; Basophil% 0.5 % (0-1); Eosinophil# 0.08 X10^3/uL; Eosinophils% 1.9 % (0-5); Hemoglobin 10.2 g/dL (12.0-15.0); Lymphocyte # 0.75 X10^3/ul (0.83-4.51); Lymphocyte % 17.8 % (19-41); Mean Corp Hgb Conc 31.9 g/dL (32-36); Mean Corpuscular Hgb 35.9 pg (27.0-32.0); Mean Corpuscular Volume 112.7 fL (81-99); Mean Platelet Vol. 11.7 fl (6.2-12.0); Monocyte# 0.48 X10^3/uL; Monocyte% 11.4 % (0-10); NRBC Flagged by Analyzer 0 % (0-5); Neutrophil # 2.87 X10^3/uL (2.7-7.7); Neutrophil % 67.9 % (47-70); POSITIVE COUNT YES; Platelet Count 56 K/mm3 (150-450); RBC Distribution Width CV 15.1 % (11.6-14.6); RBC Distribution Width SD 63.3 fl (35.1-43.9); Red Blood Count 2.84 M/mm3 (4.2-5.4); White Blood Count 4.2 K/mm3 (4.4-11.0)
[2022-01-04 04:56] LABS: Anion Gap 8 (5-15); BUN 50 mg/dL (7-18); BUN/Creat Ratio 9.6 RATIO (10-20); Calcium,Total 8.5 mg/dL (8.5-10.1); Chloride 96 mmol/L (98-107); Cholesterol 73 mg/dL (200); Creatinine, Serum 5.19 mg/dL (0.55-1.02); EST Glomerular Filtration Rate 9 mL/min (>60); Est Glom Filt Rate - Afr Amer 10 mL/min (>60); Estimated Creatinine Clearance 6.62 ml/min; Glucose 165 mg/dL (74-106); High Density Lipoprotein 37 mg/dL; Sodium Level 131 mmol/L (136-145); Triglycerides 55 mg/dL; Very Low Density Lipoprotein 11 mg/dL (5-40)
[2022-01-04] MEDS: Acetaminophen 325 MG Tablet 650 MG PO (06:22)
--- NOTE | 2022-01-04 06:46 | MRI_ITS ---
EXAM: MR HEAD WITHOUT INTRAVENOUS CONTRAST CLINICAL INDICATION: CVA left facial droop, upper extremity paralysis TECHNIQUE: Multiplanar and multisequence MR images of the brain were obtained without intravenous contrast. This report was created using [employer] report [employer] technology. COMPARISON: CT done yesterday FINDINGS: BRAIN AND EXTRA-AXIAL SPACES: Chronic involutional changes of the brain. No intra- or extra-axial hemorrhage. No evidence of acute infarct. No intracranial mass or mass effect. There is preservation of the dimas/white matter interface. Posterior fossa structures are unremarkable. Ventricles are appropriate for age. No hydrocephalus. Basal cisterns are patent. SELLA: Unremarkable. Normal sella turcica, pituitary gland, infundibular stalk, optic chiasm and hypothalamus. AUDITORY SYSTEM: Unremarkable. The internal auditory canals are patent. BONES/JOINTS: Unremarkable. No discrete lytic or blastic abnormalities. SINUSES: Unremarkable as visualized. Clear. MASTOID AIR CELLS: Unremarkable as visualized. Clear. ORBITS: Unremarkable as visualized. Both globes, extraocular muscles, optic nerves and retrobulbar fat appear unremarkable. VASCULATURE: Unremarkable as visualized. Normal flow voids in the major intracranial circulation. MRI/Brain without Contrast IMPRESSION: Chronic involutional changes of the brain. Electronically Signed: Peter Carrera MD at 20:07 EDT ,
[2022-01-04 07:10] LABS: Bedside Glucose 152 mg/dL (74-106)
[2022-01-04] MEDS: Midodrine HCl 5 MG Tablet 10 MG PO ×3 (08:21→12:33)
[2022-01-04] MEDS: Pantoprazole Sodium 20 MG Tablet PO (08:21)
[2022-01-04] MEDS: Insulin Lispro 100 UNIT/ML INSULN.PEN SC ×4 (08:22→21:15)
[2022-01-04] MEDS: Lacosamide 100 MG Tablet PO ×2 (08:48→21:21)
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
--- NOTE | 2022-01-04 10:46 | PN.HOSP_ITS ---
Documented by User: Lesly Carter NP, [employer] 01/04/22 11:36 Subjective Subjective Patient seen and examined. Left-sided weakness and left facial droop improved from prior. Reports significant back discomfort and requesting to get up to chair. Denies new neurologic symptoms or focal deficits. Denies other symptoms or complaints. Objective Data Objective Data Vital Signs: Vital Signs Temp Pulse Resp BP Pulse Ox O2 Del Method O2 Flow Rate 97.9 F 54 L 18 91/45 L 97 Room Air 2 01/04/22 08:12 01/04/22 08:12 01/04/22 08:12 01/04/22 08:12 01/04/22 08:12 01/04/22 08:27 01/04/22 03:00 Oxygen Flow Rate (L/min) 2 Oxygen Delivery Method Room Air Weight: 221 lb 5.506 oz Body Mass Index (BMI) 42.4 Intake & Output: Intake and Output for Last 24 Hours 01/02/22 01/03/22 01/04/22 23:59 23:59 23:59 Intake Total 2157.50 / 2377.50 327.5 / 327.5 Balance 2157.50 / 2377.50 327.5 / 327.5 Lab / Micro Data Result Diagrams: 01/04/22 03:54 01/04/22 03:54 Labs: Laboratory Results - last 24 hr 01/03/22 14:40: Total Bilirubin 1.00, Direct Bilirubin 0.38 H, AST 33, ALT 22, Alkaline Phosphatase 88, Total Protein 6.3 L, Albumin 2.8 L, Globulin 3.5 01/03/22 14:40: WBC 4.5, RBC 2.88 L, Hgb 10.2 L, Hct 32.4 L, MCV 112.5 H, MCH 35.4 H, MCHC 31.5 L, RDW Std Deviation 63.0 H, RDW Coeff of Kusum 15.2 H, Plt Co unt 50 L*, MPV 12.2 H, Immature Gran % (Auto) 0.200, Neut % (Auto) 68.0, Lymph % (Auto) 16.5 L, [place] % (Auto) 12.9 H, Eos % (Auto) 2.0, Baso % (Auto) 0.4, Absolute Neuts (auto) 3.0, Absolute Lymphs (auto) 0.74 L, Nucleated RBC % 0, Differential Comment SCANNED, Diff Path Review October foll 01/03/22 14:40: PT 15.8 H, INR 1.3, APTT 34.3 01/03/22 14:40: Sodium 131 L, Potassium 5.0, Chloride 95 L, Carbon Dioxide 29.0, Anion Gap 7, BUN 45 H, Creatinine 4.80 H, Estim Creat Clear Calc 7.16, Est GFR (MDRD) Af Amer 11 L, Est GFR (MDRD) Non-Af 9 L, BUN/Creatinine Ratio 9.4 L, Glucose 115 H, Calcium 8.5, Troponin I High Sens 10 01/03/22 14:40: Lactic Acid 1.8 01/03/22 15:37: Urine Color Yellow, Urine Clarity Cloudy, Urine pH 7.0, Ur Specific [place] 1.010, Urine Protein 500 H, Urine Glucose (UA) Normal, Urine Ketones Negative, Urine Occult Blood 250 H, Urine Nitrite Negative, Urine Bilirubin Negative, Urine Urobilinogen Normal, Ur Leukocyte Esterase 500 H, Urine RBC 10-25 SEEN, Urine WBC >100 SEEN, Ur Squamous Epith Cells 5-10 SEEN, Urine Bacteria 4+, Urine Mucus 0 SEEN 01/03/22 18:17: POC Glucose 160 H 01/03/22 21:29: POC Glucose 150 H 01/04/22 03:54: WBC 4.2 L, RBC 2.84 L, Hgb 10.2 L, Hct 32.0 L, MCV 112.7 H, MCH 35.9 H, MCHC 31.9 L, RDW Std Deviation 63.3 H, RDW Coeff of Kusum 15.1 H, Plt Count 56 L, MPV 11.7, Immature Gran % (Auto) 0.500, Neut % (Auto) 67.9, Lymph % (Auto) 17.8 L, [place] % (Auto) 11.4 H, Eos % (Auto) 1.9, Baso % (Auto) 0.5, Absolute Neuts (auto) 2.9, Absolute Lymphs (auto) 0.75 L, Nucleated RBC % 0 01/04/22 03:54: Sodium 131 L, Potassium 5.0, Chloride 96 L, Carbon Dioxide 27.0, Anion Gap 8, BUN 50 H, Creatinine 5.19 H, Estim Creat Clear Calc 6.62, Est GFR ( MDRD) Af Amer 10 L, Est GFR (MDRD) Non-Af 9 L, BUN/Creatinine Ratio 9.6 L, Glucose 165 H, Calcium 8.5, Triglycerides 55, Cholesterol 73, LDL Cholesterol 25, VLDL Cholesterol 11, HDL Cholesterol 37 L 01/04/22 06:26: POC Glucose 152 H Radiography Diagnostic Testing: Radiology Impression Brain CT 01/03/22 14:20 IMPRESSION: Normal unenhanced CT scan of the brain. N.B. : The above Results were Read Back by Colton Lee MD to Jose Matamoros and understanding confirmed on 01/03/2022 14:39:56 (ET). Electronically Signed: Colton Lee MD at 14:41 EDT Reading Location ID and State: [employer] / [employer] , Service support , ADDENDUM: 01/03/22 1447 IMPRESSION: Normal unenhanced CT scan of the brain. N.B. : The above Results were Read Back by Colton Lee MD to Jose Matamoros and understanding confirmed on 01/03/2022 14:39:56 (ET). Electronically Signed: Colton Lee MD at 14:41 EDT Reading Location ID and State: [employer] / [employer] , Service support , Head/Neck CTA 01/03/22 14:21 IMPRESSION: Normal CTA Head with contrast. No right carotid stenosis. Mild (20%) (left carotid stenosis. Patent vertebral arteries bilaterally. N.B. : The above Results were Read Back by Colton Lee MD to Jose Matamoros and understanding confirmed on 01/03/2022 15:08:07 (ET). Electronically Signed: Colton Lee MD at 15:09 EDT Reading Location ID and State: [id number] / [employer] , Service support , ADDENDUM: 01/03/22 1516 IMPRESSION: Normal CTA Head with contrast. No right carotid stenosis. Mild (20%) (left carotid stenosis. Patent vertebral arteries bilaterally. N.B. : The above Results were Read Back by Colton Lee MD to Jose Matamoros and understanding confirmed on 01/03/2022 15:08:07 (ET). Electronically Signed: Colton Lee MD at 15:09 EDT Reading Location ID and State: [id number] / [employer] , Service support , Chest X-Ray 01/03/22 15:02 IMPRESSION: Poor inspiration with some bibasilar atelectasis. Electronically Signed: Colton Lee MD at 15:23 EDT Reading Location ID and State: [employer] / [employer] , Service support , Physical Exam Const alert and oriented x3 HEENT normocephalic Mouth: dry mucous membranes Eyes PERRL, EOMs intact bilaterally and conjunctivae normal Neck no lymphadenopathy Resp clear to auscultation bilaterally Auscultation: diminished lung sounds Cardio regular rate, regular rhythm and no murmurs Peripheral Pulses: pulses 2+ throughout GI normal to inspection, nondistended, normoactive bowel sounds, non-tender and non-distended Extremity normal to inspection Skin no rashes or lesions noted Skin Narrative: Scattered bilateral lower extremity venous stasis ulcerations, not infected appearing Lesions: no lesions Rashes: no rashes Trauma: no lacerations or abrasions Neuro CN's II-XII intact bilaterally, no sensory deficits noted and deep tendon reflexes 2+ bilaterally Neuro Narrative: Left facial droop and left-sided weakness improved from prior assessment. Left partial hemianopia. Psych mental status grossly normal and affect normal Assessment & Plan Assessment/Plan (1) Acute stroke due to ischemia: PLAN: Plan 1.? Acute stroke-left- Not a candidate for tPA on admission due to thrombocyt openia.? CTA of head and neck unremarkable.? Brain CT normal.? MRI of brain pending.? PT/OT/ST.? On aspirin, statin at baseline.? Increase to high-dose statin.? Add Plavix. Obtain SOC neurology consult. 2.? Recent suspected UTI-discharged from ED 12/29/2021 on Macrobid however just started taking the antibiotic due to issue obtaining from pharmacy.? Culture from 12/29 grew presumptive C albicans.? No further antibiotics indicated at this time. 3. Chronic anemia/thrombocytopenia-appears at baseline.? Trend CBC.? Avoid heparin products. Recommend outpatient follow-up with hematology regarding chronic thrombocytopenia. 4. Breakthrough seizure, chronic seizure disorder-on Vimpat. Placed on IV Keppra on admission due to witnessed seizure in the ED. SOC neurology consult placed as noted above. 5. Paroxysmal atrial fibrillation-not on rate control regimen or anticoagulation. 6. Hypertension-permissive given #1.? Hold home BP regimen. 7. Hyperlipidemia-increase to high-dose statin. 8. End-stage renal disease on hemodialysis-nephrology consulted for ongoing dialysis. 9. Type 2 diabetes [id number] with sliding scale insulin.? Continue home insulin regimen. 10. Obesity-encouraged diet and lifestyle modifications. 11. ELENITA-continue CPAP. DVT prophylaxis-SCDs This patient was seen by EMILIANA Taylor under the supervision of Dr. Lee. Time spent examining patient, reviewing data and subsequent management of care: 16 minutes Documented by User: Dr. Lazaro Lee MD 01/04/22 12:29 Objective Data Lab / Micro Data Result Diagrams: 01/04/22 03:54 01/04/22 03:54 Assessment & Plan Assessment/Plan (1) Acute stroke due to ischemia: Charges/Coding Addendum Addendum: Dr. Lee I personally examined the patient and reviewed the chart. I agree with the above.? 76-year-old female with end-stage renal disease and bipolar disorder presents to the hospital with strokelike symptoms.? Around lunchtime she called her daughter said that she did not feel very well.? She was found by EMS and appeared to have a left facial droop so stroke alert was called.? Unfortunately she also has thrombocytopenia which precluded the use of tPA.? She continues to have significant left-sided weakness in her upper and lower extremities as well as a left facial droop.? She also has a left hemineglect and during my exam also had a seizure have a history of a seizure disorder and will obtain a dysphagia screen however if she is unable to EP no then we will have to place her on IV Keppra instead of her twice daily p.o. Vimpat.? We will obtain an MRI in the morning, she did have an echo this year so we will hold off on repeating that test.? CTA of the head and neck was negative for large vessel occlusion.? Some of her symptoms are also confounded by having a UTI however culture shows that it is [place], she did receive a dose of Rocephin today and given her clinical findings I do not believe that this is due to a UTI.? She did also just received dialysis on Monday so there is a possibility of some hypotension from dehydration so we will give her an IV fluid bolus as her pressures are borderline.? I did have a 25minute advance care planning discussion with the daughter and the patient.? She would like to be a DNR CCA but at this time would like to continue with dialysis therefore we will also consult nephrology.? Clinical time spent in all aspects of patient care: 50 minutes 01/04/2022: Improved today, left-sided weakness is improved as is her facial droop. She is also communicative today. Given the degree of her disability we will obtain an SOC consult today and make any medication adjustments necessary for her likely CVA. Also MRI is pending. Did not order an echo because she had 1 done a few months ago. We will continue with PT/OT and decide on disposition pending their evaluation. Patient is hesitant about going to a shelter. Clinical time spent in all aspects of patient care: 20 minutes Visit Charges Inpatient E&M: [id number] [facility] L3
--- NOTE | 2022-01-04 12:51 | ECHOCS_ITS ---
Version 2 Reason For Study: TIA/CVA Procedure This was a 2D Doppler, Color Flow transthoracic echocardiogram. The study was technically difficult. Contrast injection was performed. Exam performed portable in patient room. Left Ventricle Normal LV size. D shaped septum in systole and diastole. Left ventricular systolic function is normal. The estimated ejection fraction is 65 %. Diastolic function is indeterminate. No regional wall motion abnormalities noted. Right Ventricle Severely dilated right ventricle. Severe global right ventricular systolic dysfunction. Atria The left atrium is mildly enlarged. The right atrium is moderately enlarged. No doppler evidence for ASD. Bubble contrast study negative for right to left interatrial shunt. Mitral Valve There is mild mitral annular calcification. Mild focal mitral valve calcification of the anterior leaflet. Mild (1+) mitral valve insufficiency. Tricuspid Valve Poor coaptation of the tricuspid valve apparatus. Moderately severe (3+) tricuspid valve insufficiency. Unable to estimate RV systolic pressure due to insufficient tricuspid regurgitant envelope. Aortic Valve Trisinus/trileaflet aortic valve. Mild focal aortic valve calcification. Pulmonic Valve The pulmonic valve is not well visualized. Great Vessels Normal sized aortic root. Calcified aortic root. Pericardium/Pleural No pericardial effusion. Medication Diluted definity 3ml given slow IV push to enhance endocardial definition. Performed a rapid injection of agitated mix of 9 cc saline and 1cc air to assess for atrial septal defect. MMode/2D Measurements & Calculations LVIDd: 4.2 cm IVSd: 1.1 cm Ao root diam: 2.6 cm LVIDs: 2.3 cm LVPWd: 1.5 cm RVDd: 5.0 cm FS: 44.7 % LVAd ap4: 17.5 cm2 LA A4 area: 17.0 cm2 LA dimension(2D): 3.5 cm LVLd ap4: 5.9 cm EDV(MOD-sp4): 43.4 ml EDV(sp4-el): 44.0 ml RA A4 area: 27.6 cm2 Doppler Measurements & Calculations MV E max moe: 76.6 cm/sec Lat Peak E' Moe: 13.7 cm/sec Ao V2 max: 154.2 cm/sec MV A max moe: 76.6 cm/sec E/E' lat: 5.6 Ao max P.5 mmHg MV E/A: 1.0 LV V1 max: 108.8 cm/sec MR max moe: 366.6 cm/sec PA V2 max: 85.4 cm/sec LV V1 max P.7 mmHg MR max P.8 mmHg ECHO/Echo Complete W/ Contrast Interpretation Summary The study was technically difficult. Contrast injection was performed. Left ventricular systolic function is normal. The estimated ejection fraction is 65 %. D shaped septum in systole and diastole. Severely dilated right ventricle. Severe global right ventricular systolic dysfunction. The left atrium is mildly enlarged. The right atrium is moderately enlarged. There is mild mitral annular calcification. Mild focal mitral valve calcification of the anterior leaflet. Mild (1+) mitral valve insufficiency. Poor coaptation of the tricuspid valve apparatus. Moderately severe (3+) tricuspid valve insufficiency. Mild focal aortic valve calcification. Calcified aortic root. Unable to estimate RV systolic pressure due to insufficient tricuspid regurgita nt envelope. Diastolic function is indeterminate. Bubble contrast study negative for right to left interatrial shunt. Ordering Physician: Lesly Carter Referring Physician: Gissel Arriola M.D. Performed By: Lidia Abbott RCS
[2022-01-04 12:56] LABS: Bedside Glucose 231 mg/dL (74-106)
--- NOTE | 2022-01-04 13:12 | CASEMGMT ---
Social Work Consult: PHQ-9 assessment due to diagnosis of stroke and possible retirement placement. Referral source: sheet turner This social science research assistant attempted to speak with patient in room. Patient currently getting dialysis and has multiple medical staff in room. This social science research assistant will attempt to speak with patient later. Therapy has been ordered for patient, assessments have not been completed. Will continue to follow. Zack JUAREZ, SILVIO
--- NOTE | 2022-01-04 15:28 | CASEMGMT ---
Social Work This social sciences instructor met with patient and patient family in room. Introduced self and social sciences instructor role. Patient and patient family agreeable to speak with this social sciences instructor. This social sciences instructor broached conversation of senior living placement. Patient states I am not going to a home again. This social sciences instructor explained that patient is pending therapy evaluation and might not need senior living but there is concern that patient might not be safe to return to home alone. Patient states I don't want to go. This social sciences instructor attempting to normalize patient emotions/feelings. This social sciences instructor provided patient with in-network prison facilities that are local to patient geographical region. Patient states just tell everyone I am going home. This social sciences instructor voiced understanding and plan to follow up with patient tomorrow after patient has been evaluated by therapy. Will continue to follow. Zack JUAREZ, SILVIO
[2022-01-04 15:30] LABS: Pathologist Review Reviewed
--- NOTE | 2022-01-04 17:06 | DIALYSIS ---
3.5 hours HD completed. UF 1500 ml. AVF site has hematoma from previous treatment. ice to site 3x day relayed to ERICA
[2022-01-04] MEDS: Docusate Sodium 100 MG Capsule 200 MG PO (18:18)
[2022-01-04 18:26] LABS: Bedside Glucose 163 mg/dL (74-106)
[2022-01-04] MEDS: Insulin Glargine-YFGN 100 UNIT/ML Pen 15 UNIT SC (21:15)
[2022-01-04] MEDS: 0.9% Saline Lock 10 ML Syringe IV (21:16)
[2022-01-04] MEDS: Calcium Acetate 667 MG Capsule 2001 MG PO (21:16)
[2022-01-04] MEDS: Atorvastatin Calcium 80 MG Tablet PO (21:16)
[2022-01-04 21:30] LABS: Bedside Glucose 170 mg/dL (74-106)
--- NOTE | 2022-01-04 23:08 | NURSING ---
Pt pulled out both IVs. This RN attempted to put in another one, but pt began screaming and swinging at staff. Pt yelling I just want to sleep. Pt able to state that she is in [facility]. Attempted to educate pt on importance of IV d/t seizure medications but pt kept repeating I don't need one.
[2022-01-05] VITALS (7 sets, daily range): BP systolic 110–115; BP diastolic 29–44; PULSE 59–63; RESP 18; TEMP 36.7; O2SAT 93–99
[2022-01-05 05:53] LABS: Absolute Lymphocyte Count 0.77 X10^3/uL (0.83-4.51); Absolute Neutrophil Count 3.5 X10^3/uL (2.0-7.7); Basophil# 0.03 X10^3/uL; Basophil% 0.6 % (0-1); Eosinophil# 0.08 X10^3/uL; Eosinophils% 1.6 % (0-5); Hematocrit 30.1 % (37-47); Hemoglobin 9.8 g/dL (12.0-15.0); Lymphocyte # 0.77 X10^3/ul (0.83-4.51); Lymphocyte % 15.2 % (19-41); Mean Corp Hgb Conc 32.6 g/dL (32-36); Mean Corpuscular Hgb 35.5 pg (27.0-32.0); Mean Corpuscular Volume 109.1 fL (81-99); Mean Platelet Vol. 12.2 fl (6.2-12.0); Monocyte# 0.66 X10^3/uL; NRBC Flagged by Analyzer 0 % (0-5); Neutrophil # 3.54 X10^3/uL (2.7-7.7); Neutrophil % 69.6 % (47-70); POSITIVE COUNT YES; Platelet Count 53 K/mm3 (150-450); RBC Distribution Width CV 15.3 % (11.6-14.6); RBC Distribution Width SD 60.9 fl (35.1-43.9); Red Blood Count 2.76 M/mm3 (4.2-5.4); White Blood Count 5.1 K/mm3 (4.4-11.0)
[2022-01-05 06:15] LABS: Bedside Glucose 97 mg/dL (74-106)
[2022-01-05] MEDS: Calcium Acetate 667 MG Capsule 2001 MG PO ×2 (06:15→13:37)
[2022-01-05 06:35] LABS: Anion Gap 8 (5-15); BUN 37 mg/dL (7-18); BUN/Creat Ratio 8.2 RATIO (10-20); Calcium,Total 8.5 mg/dL (8.5-10.1); Chloride 99 mmol/L (98-107); Creatinine, Serum 4.49 mg/dL (0.55-1.02); EST Glomerular Filtration Rate 10 mL/min (>60); Est Glom Filt Rate - Afr Amer 12 mL/min (>60); Estimated Creatinine Clearance 7.66 ml/min; Glucose 108 mg/dL (74-106); Potassium 4.4 mmol/L (3.5-5.1); Sodium Level 133 mmol/L (136-145)
--- NOTE | 2022-01-05 08:37 | PN.RENAL_ITS ---
Subjective Subjective Sitting in chair, denies any complaints. No overnight events. States tolerated dialysis well with no cramping yesterday. Objective Data Objective Data Vital Signs: Vital Signs Temp Pulse Resp BP Pulse Ox O2 Del Method O2 Flow Rate 98.0 F 59 L 18 110/29 L 93 Room Air 2 01/05/22 03:15 01/05/22 07:00 01/05/22 03:15 01/05/22 03:15 01/05/22 07:17 01/05/22 07:17 01/04/22 03:00 Oxygen Flow Rate (L/min) 2 Oxygen Delivery Method Room Air Weight: 99.6 kg Body Mass Index (BMI) 42.4 Intake & Output: Intake and Output for Last 24 Hours 01/03/22 01/04/22 01/05/22 23:59 23:59 23:59 Intake Total 2157.50 / 2377.50 567.5 / 567.5 100 / 100 Output Total 0 / 0 Balance 2157.50 / 2377.50 567.5 / 567.5 100 / 100 Lab / Micro Data Result Diagrams: 01/05/22 04:41 01/05/22 04:41 Labs: Laboratory Results - last 24 hr 01/03/22 14:40: Diff Path Review Reviewed 01/04/22 11:59: POC Glucose 231 H 01/04/22 18:14: POC Glucose 163 H 01/04/22 21:13: POC Glucose 170 H 01/05/22 04:41: WBC 5.1, RBC 2.76 L, Hgb 9.8 L, Hct 30.1 L, MCV 109.1 H, MCH 35.5 H, MCHC 32.6, RDW Std Deviation 60.9 H, RDW Coeff of [place] 15.3 H, Plt Count 53 L, MPV 12.2 H, Immature Gran % (Auto) 0.000, Neut % (Auto) 69.6, Lymph % (Auto) 15.2 L, [place] % (Auto) 13.0 H, Eos % (Auto) 1.6, Baso % (Auto) 0.6, Absolute Neuts (auto) 3.5, Absolute Lymphs (auto) 0.77 L, Nucleated RBC % 0 01/05/22 04:41: Sodium 133 L, Potassium 4.4, Chloride 99, Carbon Dioxide 26.0, Anion Gap 8, BUN 37 H, Creatinine 4.49 H, Estim Creat Clear Calc 7.66, Est GFR (MDRD) Af Amer 12 L, Est GFR (MDRD) Non-Af 10 L, BUN/Creatinine Ratio 8.2 L, Gl ucose 108 H, Calcium 8.5 01/05/22 06:13: POC Glucose 97 Micro: Microbiology 01/03/22 15:37 Urine, Catheterized Urine Culture - Preliminary Culture exhibits no growth. Radiography Diagnostic Testing: Radiology Impression Brain MRI 01/04/22 06:46 IMPRESSION: Chronic involutional changes of the brain. Electronically Signed: Peter Carrera MD at 20:07 EDT , Physical Exam Narrative Const: Alert and oriented x3 HEENT: Head is normocephalic, atraumatic Cardio: S1, S2, RRR Respiratory: Lung sounds clear anteriorly, diminished breath sounds posterior bases. No wheezes, rhonchi, rales noted GI: Abdomen soft, nontender, positive bowel sounds Extremities: Trace pitting edema noted bilateral lower legs. AV fistula left upper arm positive thrill and bruit. Ecchymosis noted, no edema Assessment & Plan Assessment/Plan (1) ESRD (end stage renal disease) on dialysis: (2) Anemia of chronic disease: (3) Hypotension: PLAN: Plan -ESRD on HD TTS at [facility]: no acute indication for [employer] today, will plan for next HD tomorrow over 3.5 hours/2k bath/no heparin and UF as patient and bp tolerates. Tolerated ~1.5L UF with HD yesterday but due to lower Bps unable to remove any more fluid. EDW 93kg. Will continue midodrine tid and at start of HD. Continue FR. - Left facial droop and upper extremity weakness: CT of head/neck no acute findings. MRI brain no evidence of acute infarct, no acute findings. Urine cx so far no growth and blood cx pending. -Chronic hypotension: Blood pressures acceptable with midodrine 10 mg 3 times daily. -Anemia of chronic disease: Hemoglobin stable, no need for TEMO at this time - MBD: continue phoslo with meals - PT/OT; discharge planning in progress.
[2022-01-05] MEDS: Lacosamide 100 MG Tablet PO (09:35)
[2022-01-05] MEDS: Aspirin E.C. 81 MG Tablet PO (09:35)
[2022-01-05] MEDS: Pantoprazole Sodium 20 MG Tablet PO (09:35)
[2022-01-05] MEDS: Insulin Glargine-YFGN 100 UNIT/ML Pen 15 UNIT SC (09:36)
[2022-01-05] MEDS: 0.9% Saline Lock 10 ML Syringe IV (09:39)
--- NOTE | 2022-01-05 10:14 | CASEMGMT ---
Social Work Met with patient in room to complete PHQ-9 assessment, see attached. Patient with score on PHQ-9. Therapy updated this patient prior to entering patient room that recommendation is for patient to return to home with home health services for physical and occupational therapy. This manager social services broached topic of discharge planning and patient wishes. Patient states desire to return to home and plans to have home health services. Patient states to believe that patient is active with home health services through [facility] ([facility]) for nursing care. Patient reports to be active with [facility] services and to have an aide that comes 3 days a week for three hours at a time. Patient states to live in a 1-story apartment with no steps. Patient denies DME needs or concerns. Patient has transportation to dialysis (Tues, Thurs, Sat.) and denies concerns or needs with getting this set back up at discharge. Patient reports to be active with [employer] and plans to call [facility] at discharge, patient denies this manager social services assisting with this. Patient reports that patient daughter is able to provide transportation to home for patient at time of discharge. Patient reports that family is supportive and checks in with patient often. [facility] confirms that patient is active with services through [facility] for jail. This manager social services adding Physical and Occupational therapy to order. Yara to obtain order through [employer]. Telephone call to [facility], [facility]. Voicemail left requesting return phone call. PLAN: Discharge to home with home health services, [facility], [facility] and family for support. Zack JUAREZ, SILVIO
[2022-01-05] MEDS: Midodrine HCl 5 MG Tablet 10 MG PO ×2 (10:35→13:37)
--- NOTE | 2022-01-05 10:55 | CASEMGMT ---
ERICA CM: Call received from KAMILA Rojas with [facility]. Per Crystal pt receives the following services: 7 renal meals/week from [employer]; supplies from [employer]; medical alert from [employer]; and 6hrs of HH aide services a week from [facility]. Nathalie Campo RN CM
--- NOTE | 2022-01-05 11:28 | CASEMGMT ---
Social Work Telephone call from [facility]. Patient case folder is Eva Timmons ([phone]). This psychiatric social worker supervisor updated Eva on plan for patient to discharge to home today. Eva plans to have aide services be resumed. PLAN: Discharge to home with community services. Zack JUAREZ, SILVIO
--- NOTE | 2022-01-05 11:39 | PCM.DC ---
Discharge Instructions Diet Discharge Diet: Carb Control Diet and Renal Diet Activity Discharge Activity: Return to Normal Activity Dressing / Incision Call your doctor if you observe: Shortness of breath, Dizziness and Chest pain Follow Up Care Test Results: Test results from this visit will be discussed in further detail at your follow-up appointment, if applicable. Discharge Plan Admission Admit Date/Time: 01/03/22 16:17 Primary Reason for Your Visit: Acute stroke Attending Provider: Lazaro Lee Primary Care Provider: Gissel Arriola Consulting Providers: Morris Banuelos Discharge Orders/Prescriptions Prescriptions: New atorvastatin 40 mg tablet 40 mg PO QHS Qty: 30 0RF Continued lacosamide [Vimpat] 100 mg tablet 100 mg PO BID aspirin 81 mg tablet,delayed release (DR/EC) 81 mg PO DAILY trazodone 50 mg tablet 25 mg PO QHS gabapentin 100 mg capsule 200 mg PO BID calcium acetate(phosphat bind) 667 mg Capsule 2,001 mg PO TID insulin aspart U-100 [Novolog Flexpen U-100 Insulin] 100 unit/mL (3 mL) Insulin Pen 3 - 5 unit SUBCUT TIDCM omeprazole 20 mg Capsule,Delayed Release(Dr/Ec) 20 mg PO DAILY latanoprost [Xalatan] 0.005 % Drops 1 drp EACH EYE QPM carvedilol 12.5 mg Tablet 6.25 mg PO BID lisinopril [Zestril] 10 mg Tablet 10 mg PO DAILY acetaminophen [Tylenol] 325 mg Capsule 650 mg PO Q4H PRN (Reason: Pain) cholecalciferol (vitamin D3) [Vitamin D3] 125 mcg (5,000 unit) Tablet 125 mcg PO KELLOGG insulin glargine [Lantus Solostar U-100 Insulin] 100 unit/mL (3 mL) insulin pen 15 unit subcut BID Qty: 0 0RF midodrine 5 mg tablet 10 mg PO TIDCM Discontinued atorvastatin 10 MG tablet 10 mg PO DAILY nitrofurantoin monohyd/m-cryst [Macrobid] 100 mg capsule 100 mg PO Q12H Rx Instructions: must administer with a meal/food Referrals / Follow Up: Neurology, [place] [Other] (Follow-up within 2 weeks. Patient is previously established. Requesting Monday, Monday or Monday morning appointment. Please make appointment prior to discharge.) Bailey Toribio MD [STAFF PHYSICIAN] - 01/10/22 8:20 am (W/ [facility] ) Gissel Arriola MD [Primary Care Provider] - Within 2 Weeks (Please ask for Monday, Monday or Monday morning appointment) Yaya Wheat MD [STAFF PHYSICIAN] - 01/12/22 4:00 pm Disposition Disposition (needs filled in before D/C Order can be placed): Home Health Service
[2022-01-05] MEDS: Insulin Lispro 100 UNIT/ML INSULN.PEN SC (11:57)
[2022-01-05 12:20] LABS: Bedside Glucose 179 mg/dL (74-106)
[2022-01-05] MEDS: Acetaminophen 325 MG Tablet 650 MG PO (13:42)
--- NOTE | 2022-01-05 13:45 | DS.PCM_ITS ---
Documented by User: Lesly Carter NP, COMPUTER LAB ASSISTANT-C 01/05/22 13:52 Providers Date of Admission: 01/03/22 Date of Discharge: 01/05/22 Primary Care Physician: Dr. Gissel Arriola MD Consultations 01/03/22 18:09 Consult: Nephrology Routine Consulting Provider: Morris Banuelos Reason for Consult: Dialysis EMERGENT Consult: No MD Notified: Yes Date Notified: 01/04/22 Time Notified: 09:29 Method of Notification: Verbal Comments:: Franky Colvin COMPUTER LAB ASSISTANT (Dr Banuelos): Dr Steward is out of town Reason For Visit: ACUTE STROKE Diagnosis Discharge Diagnosis (1) ESRD (end stage renal disease) on dialysis: Status: Acute Code(s): N18.6 - End stage renal disease; Z99.2 - Dependence on renal dialysis (2) Anemia of chronic disease: Status: Acute Code(s): D63.8 - Anemia in other chronic diseases classified elsewhere (3) Hypotension: Status: Acute Code(s): I95.9 - Hypotension, unspecified Medications at Discharge Home Medications lacosamide 100 mg tablet (Vimpat) 100 mg PO BID seizures 02/22/21 aspirin 81 mg tablet,delayed release 81 mg PO DAILY HEALTH 03/01/21 gabapentin 100 mg capsule 200 mg PO BID NERVE PAIN 04/30/21 trazodone 50 mg tablet 25 mg PO QHS SLEEP 04/30/21 calcium acetate(phosphat bind) 667 mg capsule 2,001 mg PO TID vitamin 06/18/21 insulin aspart U-100 100 unit/mL (3 mL) subcutaneous pen (Novolog Flexpen U-100 Insulin aspart) 3 - 5 unit subcut TIDCM diabetes 06/18/21 omeprazole 20 mg capsule,delayed release 20 mg PO DAILY GERD 06/18/21 acetaminophen 325 mg capsule (Tylenol) 650 mg PO Q4H PRN Pain 08/16/21 carvedilol 12.5 mg tablet 6.25 mg PO BID bp 08/16/21 cholecalciferol (vitamin D3) 125 mcg (5,000 unit) tablet (Vitamin D3) 125 mcg PO KELLOGG vitamin 08/16/21 latanoprost 0.005 % eye drops (Xalatan) 1 drp EACH EYE QPM eyes 08/16/21 lisinopril 10 mg tablet (Zestril) 10 mg PO DAILY bp 08/16/21 insulin glargine 100 unit/mL (3 mL) subcutaneous pen (Lantus Solostar U-100 Insulin) 15 unit (0.15 mL) subcut BID DM #0 mL 08/17/21 midodrine 5 mg tablet 10 mg PO TIDCM hypotension 01/03/22 atorvastatin 40 mg tablet 40 mg PO QHS #30 tabs 01/05/22 Hospital Course Operations None Procedures 2-D Echocardiogram and Dialysis Summary of Care Provided Hospital Course: Patient is a 76-year-old female admitted 01/03/22 due to left-sided weakness. 1.? Acute stroke-left- Not a candidate for tPA on admission due to thrombocytopenia.? CTA of head and neck unremarkable.? Brain CT normal.? MRI of brain with chronic changes.? Continue aspirin, statin. SOC neurology consulted. Not a candidate for dual antiplatelet therapy due to thrombocytopenia. Outpatient follow-up with cardiology to discuss if she is a candidate for watchman device. Follow-up with neurology in 2 weeks. 2.? Recent suspected UTI-discharged from ED 12/29/2021 on Macrobid however just started taking the antibiotic due to issue obtaining from pharmacy.? Culture from 12/29 grew presumptive C albicans.? No further antibiotics indicated at this time. 3. Chronic anemia/thrombocytopenia-appears at baseline.?Outpatient follow-up with hematology regarding chronic thrombocytopenia. Appointment made prior to discharge. 4.? Breakthrough seizure, chronic seizure disorder-on Vimpat.? Initially placed on IV Keppra due to witnessed seizure in the ED. No further seizure activity during admission. We will remain on home Vimpat regimen with close outpatient follow-up with neurology. 5. Paroxysmal atrial fibrillation-not on rate control regimen or anticoagulation. Outpatient follow-up with cardiology 6. Hypertension-continue home BP regimen at discharge. 7. Hyperlipidemia-statin increased to 40 mg nightly. 8. End-stage renal disease on hemodialysis-nephrology consulted for ongoing dialysis. 9. Type 2 diabetes mellitus-Continue home insulin regimen. 10. Obesity-encouraged diet and lifestyle modifications. 11. ELENITA-continue CPAP. Physical Exam Const alert and oriented x3 HEENT normocephalic Mouth: dry mucous membranes Eyes PERRL, EOMs intact bilaterally and conjunctivae normal Neck no lymphadenopathy Resp clear to auscultation bilaterally Auscultation: diminished lung sounds Cardio regular rate, regular rhythm and no murmurs Peripheral Pulses: pulses 2+ throughout GI normal to inspection, nondistended, normoactive bowel sounds, non-tender and non-distended Extremity normal to inspection Skin no rashes or lesions noted Skin Narrative: Scattered bilateral lower extremity venous stasis ulcerations, not infected appearing Lesions: no lesions Rashes: no rashes Trauma: no lacerations or abrasions Neuro CN's II-XII intact bilaterally, no sensory deficits noted and deep tendon reflexes 2+ bilaterally Neuro Narrative: Neuro grossly intact. Left-sided weakness and left facial droop resolved. Psych mental status grossly normal and affect normal Patient seen and examined prior to discharge. Physical assessment as noted ab ove. Patient is stable for discharge with follow up recommendations as noted above. This patient was seen by EMILIANA Taylor under the supervision of Dr. Lee. Time spent examining patient, reviewing data and subsequent management of care: 24 minutes Weight / BMI Weight Weight: 219 lb 9.286 oz Body Mass Index (BMI) 42.4 ABG / Lab / Microbiology Data Result Diagrams: 01/05/22 04:41 01/05/22 04:41 Laboratory: Laboratory Results - last 24 hr 01/03/22 14:40: Diff Path Review Reviewed 01/04/22 18:14: POC Glucose 163 H 01/04/22 21:13: POC Glucose 170 H 01/05/22 04:41: WBC 5.1, RBC 2.76 L, Hgb 9.8 L, Hct 30.1 L, MCV 109.1 H, MCH 35.5 H, MCHC 32.6, RDW Std Deviation 60.9 H, RDW Coeff of Kusum 15.3 H, Plt Count 53 L, MPV 12.2 H, Immature Gran % (Auto) 0.000, Neut % (Auto) 69.6, Lymph % (Auto) 15.2 L, Turner % (Auto) 13.0 H, Eos % (Auto) 1.6, Baso % (Auto) 0.6, Absolute Neuts (auto) 3.5, Absolute Lymphs (auto) 0.77 L, Nucleated RBC % 0 01/05/22 04:41: Sodium 133 L, Potassium 4.4, Chloride 99, Carbon Dioxide 26.0, Anion Gap 8, BUN 37 H, Creatinine 4.49 H, Estim Creat Clear Calc 7.66, Est GFR (MDRD) Af Amer 12 L, Est GFR (MDRD) Non-Af 10 L, BUN/Creatinine Ratio 8.2 L, Glucose 108 H, Calcium 8.5 01/05/22 06:13: POC Glucose 97 01/05/22 11:56: POC Glucose 179 H Microbiology: Microbiology 01/03/22 14:50 Blood Culture (Wb) - Right Forearm Blood Culture - Preliminary No growth in 48 hours. 01/03/22 14:40 Blood Culture (Wb) - Right Hand Blood Culture - Preliminary No growth in 48 hours. 01/03/22 15:37 Urine, Catheterized Urine Culture - Preliminary Culture exhibits no growth. Radiography Diagnostic Testing: Radiology Impression Brain MRI 01/04/22 06:46 IMPRESSION: Chronic involutional changes of the brain. Electronically Signed: Peter Carrera MD at 20:07 EDT Reading Location ID and State: [address] [place] [address] , Service support , D/C Instructions Discharge Diet: Carb Control Diet and Renal Diet Call your doctor if you observe: Shortness of breath, Dizziness and Chest pain Meaningful Use Info Meaningful Use Diagnoses (Choose all that apply): Ischemic CVA CVA Therapy Assessed for PT,OT and/or ST?: Yes Ischemic Stroke Antithrombotic order at d/c?: Yes Dx of Atrial fib/flutter?: Yes Anticoagulant at discharge?: No Reason anticoagulant not ordered: Medical Contraindication Statins at discharge?: Yes Primary Dx Acute Ischemic CVA?: Yes IV tPA ordered during stay?: No Reason IV t-PA not ordered: Medical Contraindication Discharge Plan Admission Admit Date/Time: 01/03/22 16:17 Primary Reason for Your Visit: Acute stroke Attending Provider: Lazaro Lee Primary Care Provider: Gissel Arriola Consulting Providers: Morris Banuelos Discharge Orders/Prescriptions Prescriptions: New atorvastatin 40 mg tablet 40 mg PO QHS Qty: 30 0RF Continued lacosamide [Vimpat] 100 mg tablet 100 mg PO BID aspirin 81 mg tablet,delayed release (DR/EC) 81 mg PO DAILY trazodone 50 mg tablet 25 mg PO QHS gabapentin 100 mg capsule 200 mg PO BID calcium acetate(phosphat bind) 667 mg Capsule 2,001 mg PO TID insulin aspart U-100 [Novolog Flexpen U-100 Insulin] 100 unit/mL (3 mL) Insulin Pen 3 - 5 unit SUBCUT TIDCM omeprazole 20 mg Capsule,Delayed Release(Dr/Ec) 20 mg PO DAILY latanoprost [Xalatan] 0.005 % Drops 1 drp EACH EYE QPM carvedilol 12.5 mg Tablet 6.25 mg PO BID lisinopril [Zestril] 10 mg Tablet 10 mg PO DAILY acetaminophen [Tylenol] 325 mg Capsule 650 mg PO Q4H PRN (Reason: Pain) cholecalciferol (vitamin D3) [Vitamin D3] 125 mcg (5,000 unit) Tablet 125 mcg PO KELLOGG insulin glargine [Lantus Solostar U-100 Insulin] 100 unit/mL (3 mL) insulin pen 15 unit subcut BID Qty: 0 0RF midodrine 5 mg tablet 10 mg PO TIDCM Discontinued atorvastatin 10 MG tablet 10 mg PO DAILY nitrofurantoin monohyd/m-cryst [Macrobid] 100 mg capsule 100 mg PO Q12H Rx Instructions: must administer with a meal/food Referrals / Follow Up: Neurology, [place] [Other] (Follow-up within 2 weeks. Patient is previously established. Requesting Monday, Monday or Monday morning appointment. Please make appointment prior to discharge.) Bailey Toribio MD [STAFF PHYSICIAN] - 01/10/22 8:20 am (W/ [facility] ) Gissel Arriola MD [Primary Care Provider] - Within 2 Weeks (Please ask for Monday, Monday or Monday morning appointment) Yaya Wheat MD [STAFF PHYSICIAN] - 01/12/22 4:00 pm Alfred Rudolph NP, COMPUTER LAB ASSISTANT-C [Nurse Practitioner] - See Referral Note (As scheduled 02/07/2022) Disposition Disposition (needs filled in before D/C Order can be placed): Home Health Service Documented by User: Dr. Lazaro Lee MD 01/05/22 15:06 Providers Date of Admission: 01/03/22 Reason For Visit: ACUTE STROKE Diagnosis Discharge Diagnosis (1) ESRD (end stage renal disease) on dialysis: Status: Acute Code(s): N18.6 - End stage renal disease; Z99.2 - Dependence on renal dialysis (2) Anemia of chronic disease: Status: Acute Code(s): D63.8 - Anemia in other chronic diseases classified elsewhere (3) Hypotension: Status: Acute Code(s): I95.9 - Hypotension, unspecified Medications at Discharge Home Medications lacosamide 100 mg tablet (Vimpat) 100 mg PO BID seizures 02/22/21 aspirin 81 mg tablet,delayed release 81 mg PO DAILY HEALTH 03/01/21 gabapentin 100 mg capsule 200 mg PO BID NERVE PAIN 04/30/21 trazodone 50 mg tablet 25 mg PO QHS SLEEP 04/30/21 calcium acetate(phosphat bind) 667 mg capsule 2,001 mg PO TID vitamin 06/18/21 insulin aspart U-100 100 unit/mL (3 mL) subcutaneous pen (Novolog Flexpen U-100 Insulin aspart) 3 - 5 unit subcut TIDCM diabetes 06/18/21 omeprazole 20 mg capsule,delayed release 20 mg PO DAILY GERD 06/18/21 acetaminophen 325 mg capsule (Tylenol) 650 mg PO Q4H PRN Pain 08/16/21 carvedilol 12.5 mg tablet 6.25 mg PO BID bp 08/16/21 cholecalciferol (vitamin D3) 125 mcg (5,000 unit) tablet (Vitamin D3) 125 mcg PO KELLOGG vitamin 08/16/21 latanoprost 0.005 % eye drops (Xalatan) 1 drp EACH EYE QPM eyes 08/16/21 lisinopril 10 mg tablet (Zestril) 10 mg PO DAILY bp 08/16/21 insulin glargine 100 unit/mL (3 mL) subcutaneous pen (Lantus Solostar U-100 Insulin) 15 unit (0.15 mL) subcut BID DM #0 mL 08/17/21 midodrine 5 mg tablet 10 mg PO TIDCM hypotension 07/04/22 atorvastatin 40 mg tablet 40 mg PO QHS #30 tabs 01/05/22 ABG / Lab / Microbiology Data Result Diagrams: 01/05/22 04:41 01/05/22 04:41 Discharge Plan Admission Admit Date/Time: 01/03/22 16:17 Primary Reason for Your Visit: Acute stroke Attending Provider: Lazaro Lee Primary Care Provider: Gissel Arriola Consulting Providers: Morris Banuelos Discharge Orders/Prescriptions Prescriptions: New atorvastatin 40 mg tablet 40 mg PO QHS Qty: 30 0RF Continued lacosamide [Vimpat] 100 mg tablet 100 mg PO BID aspirin 81 mg tablet,delayed release (DR/EC) 81 mg PO DAILY trazodone 50 mg tablet 25 mg PO QHS gabapentin 100 mg capsule 200 mg PO BID calcium acetate(phosphat bind) 667 mg Capsule 2,001 mg PO TID insulin aspart U-100 [Novolog Flexpen U-100 Insulin] 100 unit/mL (3 mL) Insulin Pen 3 - 5 unit SUBCUT TIDCM omeprazole 20 mg Capsule,Delayed Release(Dr/Ec) 20 mg PO DAILY latanoprost [Xalatan] 0.005 % Drops 1 drp EACH EYE QPM carvedilol 12.5 mg Tablet 6.25 mg PO BID lisinopril [Zestril] 10 mg Tablet 10 mg PO DAILY acetaminophen [Tylenol] 325 mg Capsule 650 mg PO Q4H PRN (Reason: Pain) cholecalciferol (vitamin D3) [Vitamin D3] 125 mcg (5,000 unit) Tablet 125 mcg PO KELLOGG insulin glargine [Lantus Solostar U-100 Insulin] 100 unit/mL (3 mL) insulin pen 15 unit subcut BID Qty: 0 0RF midodrine 5 mg tablet 10 mg PO TIDCM Discontinued atorvastatin 10 MG tablet 10 mg PO DAILY nitrofurantoin monohyd/m-cryst [Macrobid] 100 mg capsule 100 mg PO Q12H Rx Instructions: must administer with a meal/food Referrals / Follow Up: Neurology, [place] [Other] (Follow-up within 2 weeks. Patient is previously established. Requesting Monday, Monday or Monday morning appointment. Please make appointment prior to discharge.) Bailey Toribio MD [STAFF PHYSICIAN] - 01/10/22 8:20 am (W/ [facility] ) Gissel Arriola MD [Primary Care Provider] - Within 2 Weeks (Please ask for Monday, Monday or Monday morning appointment) Yaya Wheat MD [STAFF PHYSICIAN] - 01/12/22 4:00 pm Alfred Rudolph NP, COMPUTER LAB ASSISTANT-C [Nurse Practitioner] - See Referral Note (As scheduled 02/07/2022) Disposition Disposition (needs filled in before D/C Order can be placed): Home Health Service Charges/Coding Addendum Addendum: Dr. Lee I personally examined the patient and reviewed the chart. I agree with the above.? 76-year-old female with end-stage renal disease and bipolar disorder presents to the hospital with strokelike symptoms.? Around lunchtime she called her daughter said that she did not feel very well.? She was found by EMS and appeared to have a left facial droop so stroke alert was called.? Unfortunately she also has thrombocytopenia which precluded the use of tPA.? She continues to have significant left-sided weakness in her upper and lower extremities as well as a left facial droop.? She also has a left hemineglect and during my exam also had a seizure have a history of a seizure disorder and will obtain a dysphagia screen however if she is unable to EP no then we will have to place her on IV Keppra instead of her twice daily p.o. Vimpat.? We will obtain an MRI in the morning, she did have an echo this year so we will hold off on repeating that test.? CTA of the head and neck was negative for large vessel occlusion.? Some of her symptoms are also confounded by having a UTI however culture shows that it is Tuyet, she did receive a dose of Rocephin today and given her clinical findings I do not believe that this is due to a UTI.? She did also just received dialysis on Monday so there is a possibility of some hypotension from dehydration so we will give her an IV fluid bolus as her pressures are borderline.? I did have a 25minute advance care planning discussion with the daughter and the patient.? She would like to be a DNR CCA but at this time would like to continue with dialysis therefore we will also consult nephrology.? Clinical time spent in all aspects of patient care: 50 minutes 01/04/2022:?Improved today, left-sided weakness is improved as is her facial droop.? She is also communicative today.? Given the degree of her disability we will obtain an SOC consult today and make any medication adjustments necessary for her likely CVA.? Also MRI is pending.? Did not order an echo because she had 1 done a few months ago.? We will continue with PT/OT and decide on disposition pending their evaluation.? Patient is hesitant about going to a senior care.? Clinical time spent in all aspects of patient care: 20 minutes 01/05/2022: Doing well, she has had continued improvement in her symptoms. She underwent evaluation with PT and OT who felt that she could go home with home health at this time, she is extremely resistant to going to a senior care for therapy even if it is temporary. She did have a breakthrough seizure on admission however she does have a neurologist that she can follow-up with closely and so we will defer any changes to her antiseizure medications to her outpatient neurologist, would recommend continued Vimpat at this time. I discussed with her the plan for discharge today she expressed understanding of the risk benefits of going home and would like to go home today. Clinical time spent in all aspects of patient care: 30 minutes Visit Charges Inpatient E&M: 39038 Disch Hosp
--- NOTE | 2022-01-05 13:51 | PHA.DC.MR ---
Pharmacy Service has performed discharge medication reconciliation for this patient. The patient's discharge medication list was reviewed for discrepancies and discrepancies were resolved. Home Medications lacosamide 100 mg tablet (Vimpat) 100 mg PO BID seizures 02/22/21 aspirin 81 mg tablet,delayed release 81 mg PO DAILY HEALTH 03/01/21 gabapentin 100 mg capsule 200 mg PO BID NERVE PAIN 04/30/21 trazodone 50 mg tablet 25 mg PO QHS SLEEP 04/30/21 calcium acetate(phosphat bind) 667 mg capsule 2,001 mg PO TID vitamin 06/18/21 insulin aspart U-100 100 unit/mL (3 mL) subcutaneous pen (Novolog Flexpen U-100 Insulin aspart) 3 - 5 unit subcut TIDCM diabetes 06/18/21 omeprazole 20 mg capsule,delayed release 20 mg PO DAILY GERD 06/18/21 acetaminophen 325 mg capsule (Tylenol) 650 mg PO Q4H PRN Pain 08/16/21 carvedilol 12.5 mg tablet 6.25 mg PO BID bp 08/16/21 cholecalciferol (vitamin D3) 125 mcg (5,000 unit) tablet (Vitamin D3) 125 mcg PO KELLOGG vitamin 08/16/21 latanoprost 0.005 % eye drops (Xalatan) 1 drp EACH EYE QPM eyes 08/16/21 lisinopril 10 mg tablet (Zestril) 10 mg PO DAILY bp 08/16/21 insulin glargine 100 unit/mL (3 mL) subcutaneous pen (Lantus Solostar U-100 Insulin) 15 unit (0.15 mL) subcut BID DM #0 mL 08/17/21 midodrine 5 mg tablet 10 mg PO TIDCM hypotension 01/03/22 atorvastatin 40 mg tablet 40 mg PO QHS #30 tabs 01/05/22
== END 2022-01-05 16:41 | disposition home health service (06) | DRG 64 ==
LOC: ED 16:18 → PCU 17:02
PROVIDERS: Nurse Practitioner Family; Admitting Provider Family Medicine; Emergency Provider Emergency Medicine; PCP Internal Medicine; Visit Provider Family Medicine
DX: I63.9 Cerebral infarction, unspecified (principal); N18.6 End stage renal disease; I13.2 Hypertensive heart and chronic kidney disease with heart failure and with stage 5 chronic kidney disease, or end stage renal disease; G81.94 Hemiplegia, unspecified affecting left nondominant side; L97.919 Non-pressure chronic ulcer of unspecified part of right lower leg with unspecified severity; L97.929 Non-pressure chronic ulcer of unspecified part of left lower leg with unspecified severity; I50.32 Chronic diastolic (congestive) heart failure; Z68.41 Body mass index [BMI] 40.0-44.9, adult; N30.00 Acute cystitis without hematuria; D69.6 Thrombocytopenia, unspecified; D63.1 Anemia in chronic kidney disease; I95.9 Hypotension, unspecified; E11.42 Type 2 diabetes mellitus with diabetic polyneuropathy; E11.22 Type 2 diabetes mellitus with diabetic chronic kidney disease; G40.909 Epilepsy, unspecified, not intractable, without status epilepticus; F31.9 Bipolar disorder, unspecified; Z79.4 Long term (current) use of insulin; I48.0 Paroxysmal atrial fibrillation; Z99.2 Dependence on renal dialysis; J44.9 Chronic obstructive pulmonary disease, unspecified; E66.01 Morbid (severe) obesity due to excess calories; F44.81 Dissociative identity disorder; E78.5 Hyperlipidemia, unspecified; G47.33 Obstructive sleep apnea (adult) (pediatric); I25.2 Old myocardial infarction; E86.0 Dehydration; R29.810 Facial weakness; R29.713 NIHSS score 13; F41.1 Generalized anxiety disorder; Z79.82 Long term (current) use of aspirin; Z86.16 Personal history of COVID-19; Z87.891 Personal history of nicotine dependence; Z86.73 Personal history of transient ischemic attack (TIA), and cerebral infarction without residual deficits
CPT/HCPCS: 36415; 70450; 70496; 70498; 70551; 71045; 80048; 80061; 80076; 81001; 82962; 83605; 84484; 85025; 85610; 85730; 87040; 87086; 87088; 90937; 92610; 93005; 93306; 94762; 97162; 97166; 97802; 99285; J7030; P9612; Q9957; Q9967; A4216; C8929; G0257

== ENCOUNTER → 2022-01-31 | Outpatient (CLI) | payer MEDICARE, SELFPAY ==
[2022-01-31 14:18] LABS: Absolute Lymphocyte Count 0.79 X10^3/uL (0.83-4.51); Absolute Neutrophil Count 2.3 X10^3/uL (2.0-7.7); Basophil# 0.03 X10^3/uL; Basophil% 0.8 % (0-1); Eosinophil# 0.07 X10^3/uL; Eosinophils% 1.9 % (0-5); Hematocrit 31.9 % (37-47); Lymphocyte # 0.79 X10^3/ul (0.83-4.51); Lymphocyte % 21.2 % (19-41); Mean Corp Hgb Conc 31.3 g/dL (32-36); Mean Corpuscular Volume 114.7 fL (81-99); Mean Platelet Vol. 11.6 fl (6.2-12.0); Monocyte# 0.55 X10^3/uL; Monocyte% 14.8 % (0-10); NRBC Flagged by Analyzer 0 % (0-5); Neutrophil # 2.27 X10^3/uL (2.7-7.7); POSITIVE COUNT YES; POSITIVE MORPHOLOGY YES; Platelet Count 57 K/mm3 (150-450); RBC Distribution Width CV 15.4 % (11.6-14.6); RBC Distribution Width SD 65.3 fl (35.1-43.9); Red Blood Count 2.78 M/mm3 (4.2-5.4); White Blood Count 3.7 K/mm3 (4.4-11.0)
[2022-01-31 14:23] LABS: Differential Indicated SCAN CRITERIA MET
[2022-01-31 14:27] LABS: Anion Gap 5 (5-15); BUN 26 mg/dL (7-18); BUN/Creat Ratio 6.1 RATIO (10-20); Calcium,Total 9.5 mg/dL (8.5-10.1); Chloride 96 mmol/L (98-107); Creatinine, Serum 4.23 mg/dL (0.55-1.02); EST Glomerular Filtration Rate 11 mL/min (>60); Est Glom Filt Rate - Afr Amer 13 mL/min (>60); Glucose 287 mg/dL (74-106); Sodium Level 134 mmol/L (136-145)
[2022-01-31 14:56] LABS: Platelet Estimate MKD DEC (ADEQ)
== END | disposition home or self-care (01) ==
LOC: PAVLAB 14:02
PROVIDERS: PCP Internal Medicine; Visit Provider Physician Assistant
DX: T82.898A Other specified complication of vascular prosthetic devices, implants and grafts, initial encounter (principal)
CPT/HCPCS: 36415; 80048; 85025

== ENCOUNTER 2022-02-10 11:59 | Emergency (ER) | payer MEDICARE, MEDICAID, SELFPAY ==
[2022-02-10 12:01] VITALS: BP 129/58; PULSE 63; RESP 20; TEMP 36.3; O2SAT 96; BMI 39.6
--- NOTE | 2022-02-10 12:19 | EKG12_ITS ---
Test Reason : weakness Blood Pressure : / mmHG Vent. Rate : 063 BPM Atrial Rate : 063 BPM P-R Int : 186 ms QRS Dur : 084 ms QT Int : 392 ms P-R-T Axes : -12 117 051 degrees QTc Int : 401 ms Normal sinus rhythm Right axis deviation Low voltage QRS Nonspecific ST and T wave abnormality Abnormal ECG Confirmed by ANGELA BOWMAN, SANTHOSH ([id number]), map editor RADHA TAPIA ([id number]) on 02/11/2022 1:46:38 PM Referred By: Mohamud Confirmed By:SANTHOSH MILLER MD
--- NOTE | 2022-02-10 12:19 | CT_ITS ---
STUDY: CT BRAIN WITHOUT CONTRAST REASON FOR EXAM: Female, 76 years old. Acute change in mental status RADIATION DOSAGE (If Supplied By Facility): CTDIvol = ( 44.99 ) mGy, DLP = ( 745.49 ) mGycm TECHNIQUE: Transaxial CT imaging of the brain was performed without administration of intravenous contrast material. Individualized dose optimization techniques were used for this CT. COMPARISON: Comparison is made with prior study dated 01/03/2022. FINDINGS: Normal soft tissue structures. Normal calvarium. There is mild cerebral atrophy with widening of the extra-axial spaces and ventricular dilatation. Normal white matter tracts of the cerebral hemispheres. Normal basal ganglia and thalami. Normal brainstem. Normal cerebellum. There is no intracranial hemorrhage. There are no findings of an acute ischemic infarction. Normal visualized paranasal sinuses. CT/Brain/Head without Contrast IMPRESSION: Chronic involutional changes of the brain. Electronically Signed: Baljeet Chen MD at 12:59 EDT ,
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
[2022-02-10 12:36] LABS: Absolute Neutrophil Count 3.4 X10^3/uL (2.0-7.7); Basophil# 0.03 X10^3/uL; Basophil% 0.6 % (0-1); Eosinophil# 0.06 X10^3/uL; Eosinophils% 1.3 % (0-5); Hematocrit 31.4 % (37-47); Hemoglobin 10.1 g/dL (12.0-15.0); Lymphocyte % 10.8 % (19-41); Mean Corp Hgb Conc 32.2 g/dL (32-36); Mean Corpuscular Hgb 37.1 pg (27.0-32.0); Mean Corpuscular Volume 115.4 fL (81-99); Mean Platelet Vol. 11.8 fl (6.2-12.0); Monocyte# 0.64 X10^3/uL; Monocyte% 13.9 % (0-10); NRBC Flagged by Analyzer 0 % (0-5); Neutrophil # 3.37 X10^3/uL (2.7-7.7); POSITIVE COUNT YES; POSITIVE DIFFERENTIAL YES; POSITIVE MORPHOLOGY YES; Platelet Count 55 K/mm3 (150-450); RBC Distribution Width CV 15.9 % (11.6-14.6); RBC Distribution Width SD 68.7 fl (35.1-43.9); Red Blood Count 2.72 M/mm3 (4.2-5.4); White Blood Count 4.6 K/mm3 (4.4-11.0)
[2022-02-10 12:38] LABS: Differential Indicated SCAN CRITERIA MET
[2022-02-10 12:43] LABS: International Normalized Ratio 1.3; Prothrombin Time (Protime)PT. 15.8 SECONDS (11.7-14.9)
[2022-02-10 12:44] LABS: Partial Thromboplast Time 36.2 Seconds (24.1-36.2)
--- NOTE | 2022-02-10 12:45 | RAD_ITS ---
STUDY: X-RAY CHEST REASON FOR EXAM: Female, 76 years old. Bibasilar rales and cough TECHNIQUE: Single AP portable view of the chest. COMPARISON: Comparison is made with prior study dated 01/03/2022. FINDINGS: EKG electrodes are seen. Blunting of the right costophrenic angle with bibasilar atelectasis and/or infiltrate worse on the right side. Normal size heart. Normal mediastinum and elva. Normal visualized pulmonary arteries. There is atherosclerotic calcification of the aortic arch with tortuosity. There are diffuse degenerative changes of the visualized thoracic spine. Normal visualized ribs, clavicles, and shoulders. There is no demonstrated abnormality of the visualized soft tissue structures of the upper abdomen. RAD/Chest 1 View IMPRESSION: Small right pleural effusion with bibasilar atelectasis and/or infiltrate worse on the right side. Electronically Signed: Baljeet Chen MD at 12:58 EDT ,
[2022-02-10 12:47] LABS: Anion Gap 5 (5-15); BUN 34 mg/dL (7-18); BUN/Creat Ratio 7.4 RATIO (10-20); Calcium,Total 9.2 mg/dL (8.5-10.1); Chloride 95 mmol/L (98-107); Creatinine, Serum 4.58 mg/dL (0.55-1.02); EST Glomerular Filtration Rate 10 mL/min (>60); Est Glom Filt Rate - Afr Amer 12 mL/min (>60); Estimated Creatinine Clearance 7.89 ml/min; Glucose 322 mg/dL (74-106); Potassium 5.6 mmol/L (3.5-5.1); Sodium Level 131 mmol/L (136-145)
[2022-02-10 13:00] LABS: Anisocytosis 1+; Platelet Estimate MOD DEC (ADEQ)
--- NOTE | 2022-02-10 13:03 | ED.RN ---
PT DID NOT RECEIVE DIALYSIS TODAY.
--- NOTE | 2022-02-10 13:20 | CT_ITS ---
STUDY: CT ABDOMEN AND PELVIS WITHOUT CONTRAST REASON FOR EXAM: Female, 76 years old. Acute left sided abdomen/flank pain RADIATION DOSAGE (If Supplied By Facility): CTDIvol = ( 22.01 ) mGy, DLP = ( 1177.99 ) mGycm TECHNIQUE: Transaxial images were obtained from the dome of the diaphragm to the symphysis pubis without oral contrast, and without intravenous contrast. Sagittal and coronal images were reconstructed. Individualized dose optimization techniques were used for this CT. COMPARISON: None. FINDINGS: Large right pleural effusion and small left pleural effusion. The visualized portions of the heart are within normal limits. Small amount of ascites. Edema of the subcutaneous fat consistent with anasarca. Normal liver. There are surgical clips in the gallbladder fossa consistent with a prior cholecystectomy. Normal spleen. Normal pancreas. Normal bilateral adrenal glands. Normal right kidney. Normal left kidney. Normal visualized stomach. Normal small intestine. Normal colon. There is non-visualization of the appendix. There is diffuse atherosclerotic calcification of the abdominal aorta, without a demonstrated aneurysm. Normal inferior vena cava. Normal retroperitoneum. Normal urinary bladder. Normal abdominal wall. Mild levoscoliosis of the lumbar spine with degenerative disc disease. CT/Abdomen/Pelvis without Cont IMPRESSION: 1. No renal or ureteral stone. 2. Volume overload with pleural effusions, ascites, and anasarca. Electronically Signed: Colton Lee MD at 14:29 EDT ,
[2022-02-10 14:00] VITALS: BP 101/67; PULSE 60; RESP 15; O2SAT 97
--- NOTE | 2022-02-10 15:32 | ED.RN ---
PT HAS INTERMITTENT EPISODES OF NOT OPENING EYES OR RESPONDING TO QUESTIONS. AT OTHER TIMES AWAKE, ALERT AND ORIENTED X4. WHEN PT QUESTIONED ABOUT EPISODES SHE STATED OH I DO THAT SOMETIMES. PT MUMBLING, NOT OPENING EYES WHEN THIS RN AT BEDSIDE. AFTER LEAVING ROOM PT HEARD YELLING AND HAD TURNED B[employer]ING CENTER MANAGER LIGHT. PT LOUDLY STATES I SAID I'M UNCOMFORTABLE. PT LATER REQUESTING TO GO HOME, ADVISED PT THAT SHE WOULD NEED TO OPEN EYES AND SPEAK TO MD WHEN HE WAS AT BEDSIDE. SHE STATES OK, I'LL DO THAT NEXT TIME
[2022-02-10 16:21] VITALS: BP 119/74; PULSE 71; RESP 18; O2SAT 97
--- NOTE | 2022-02-10 16:22 | ED.RN ---
PT DRESSED SELF, AMBULATED OUT OF DEPT INDEPENDENTLY WITH WHEELED WALKER. DAUGHTER AT ED DOOR TO TRANSPORT HOME.
== END 2022-02-10 16:23 | disposition home or self-care (01) ==
PROVIDERS: Emergency Provider Emergency Medicine; PCP Internal Medicine; Visit Provider Emergency Medicine
DX: R10.9 Unspecified abdominal pain (principal); I13.2 Hypertensive heart and chronic kidney disease with heart failure and with stage 5 chronic kidney disease, or end stage renal disease; Z99.2 Dependence on renal dialysis; J44.9 Chronic obstructive pulmonary disease, unspecified; I50.32 Chronic diastolic (congestive) heart failure; F31.9 Bipolar disorder, unspecified; F44.81 Dissociative identity disorder; E10.22 Type 1 diabetes mellitus with diabetic chronic kidney disease; E10.59 Type 1 diabetes mellitus with other circulatory complications; E10.42 Type 1 diabetes mellitus with diabetic polyneuropathy; N18.6 End stage renal disease; G40.909 Epilepsy, unspecified, not intractable, without status epilepticus; Z79.4 Long term (current) use of insulin; E87.70 Fluid overload, unspecified; R41.82 Altered mental status, unspecified; E78.00 Pure hypercholesterolemia, unspecified; R53.1 Weakness; I87.8 Other specified disorders of veins; G47.33 Obstructive sleep apnea (adult) (pediatric); E78.5 Hyperlipidemia, unspecified; E66.9 Obesity, unspecified; I25.2 Old myocardial infarction; Z86.73 Personal history of transient ischemic attack (TIA), and cerebral infarction without residual deficits
CPT/HCPCS: 70450; 71045; 74176; 80048; 85025; 85610; 85730; 93005; 99284; A4216

== ENCOUNTER 2022-02-16 06:13 | Day surgery (SDC) | payer MEDICARE, MEDICAID, SELFPAY ==
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
[2022-02-16 06:58] VITALS: BMI 42.7
--- NOTE | 2022-02-16 07:42 | PCM.OPRPT ---
Report of Operation Date of Procedure: 02/16/22 Pre-Operative Diagnosis: Diminished flow left upper extremity transposed basilic vein to brachial artery arteriovenous hemodialysis fistula Post-Operative Diagnosis: Widely patent left upper extremity transposed basilic vein to brachial artery arteriovenous hemodialysis fistula Surgery/Procedure Performed:: Left upper extremity fistulogram Description of Surgical Findings:: Timeout informed consent was obtained. 76-year-old female was taken to the special procedures lab placed upon the table. The left extremity was sterilely prepped and draped. Ultrasound was used to identify the basilic vein closer to the arterial anastomosis 2% lidocaine was instilled a total of 2 cc was used micropuncture needle inserted micropuncture wire inserted 6 English short sheath was inserted using Isovue contrast hand-injection views were obtained of the upper arm and central venous outflow and then compression was held and a retrograde view of the proximal fistula anastomotic area was achieved. She tolerated procedure well there is no apparent complication sheath was removed U suture of 4-0 nylon was placed hemostasis was intact no complications The fistulogram demonstrates an absolutely widely patent and well matured large diameter upper arm transposed basilic vein to brachial artery arteriovenous fistula. No evidence of hemodynamically significant stenosis. Dinesh Polanco M.D., F.A.C.S. Surgeon: Dinesh Polanco Type of Anesthesia: IV Sedation and Local
== END 2022-02-16 09:05 | disposition home or self-care (01) ==
LOC: CLSP 06:15
PROVIDERS: PCP Internal Medicine; Referring Provider Surgery; Visit Provider Surgery
DX: T82.898A Other specified complication of vascular prosthetic devices, implants and grafts, initial encounter (principal); M06.9 Rheumatoid arthritis, unspecified; J44.9 Chronic obstructive pulmonary disease, unspecified; I13.0 Hypertensive heart and chronic kidney disease with heart failure and stage 1 through stage 4 chronic kidney disease, or unspecified chronic kidney disease; I50.32 Chronic diastolic (congestive) heart failure; F31.9 Bipolar disorder, unspecified; F44.81 Dissociative identity disorder; F33.41 Major depressive disorder, recurrent, in partial remission; E11.22 Type 2 diabetes mellitus with diabetic chronic kidney disease; N18.4 Chronic kidney disease, stage 4 (severe); I48.91 Unspecified atrial fibrillation; E66.01 Morbid (severe) obesity due to excess calories; Z68.41 Body mass index [BMI] 40.0-44.9, adult; Z79.4 Long term (current) use of insulin; Y83.8 Other surgical procedures as the cause of abnormal reaction of the patient, or of later complication, without mention of misadventure at the time of the procedure; Z79.82 Long term (current) use of aspirin; Z79.899 Other long term (current) drug therapy; I25.2 Old myocardial infarction; Z86.73 Personal history of transient ischemic attack (TIA), and cerebral infarction without residual deficits
CPT/HCPCS: 36901; 76937; 99152; Q9967; J7799

== ENCOUNTER 2022-02-22 11:36 | Inpatient (IN) | payer MEDICARE, MEDICAID, SELFPAY ==
[2022-02-22] VITALS (19 sets, daily range): BP systolic 94–120; BP diastolic 34–79; PULSE 62–87; RESP 12–28; TEMP 36.7–38; O2SAT 85–100; BMI 42.8; BMI 41.2
--- NOTE | 2022-02-22 11:57 | CT_ITS ---
STUDY: CT BRAIN WITHOUT CONTRAST REASON FOR EXAM: Female, 76 years old. Altered mental status. 2 day history of lethargy. RADIATION DOSAGE (If Supplied By Facility): CTDIvol = ( 44.99 ) mGy, DLP = ( 745.49 ) mGycm TECHNIQUE: Transaxial CT imaging of the brain was performed without administration of intravenous contrast material. Individualized dose optimization techniques were used for this CT. COMPARISON: Comparison is made with prior study done 02/10/2022. FINDINGS: Normal soft tissue structures. Normal calvarium. There is mild cerebral atrophy with widening of the extra-axial spaces and ventricular dilatation. Normal white matter tracts of the cerebral hemispheres. Normal basal ganglia and thalami. Normal brainstem. Normal cerebellum. There is no intracranial hemorrhage. There are no findings of an acute ischemic infarction. Partial opacification of the ethmoid sinuses bilaterally. Partial opacification of the right sphenoid sinus. CT/Brain/Head without Contrast IMPRESSION: Chronic involutional changes of the brain. Partial opacification of the right sphenoid sinus. Partial opacification of the ethmoid sinuses. Electronically Signed: Baljeet Chen MD at 13:56 EDT ,
--- NOTE | 2022-02-22 11:58 | EKG12_ITS ---
Test Reason : ALT LOC Blood Pressure : / mmHG Vent. Rate : 086 BPM Atrial Rate : 086 BPM P-R Int : 000 ms QRS Dur : 080 ms QT Int : 358 ms P-R-T Axes : 000 107 034 degrees QTc Int : 428 ms Sinus rhythm Low voltage QRS Septal MA, age undetermined, cannot be excluded Confirmed by ANGELA BOWMAN, SANTHOSH ([id number]), associate entertainment editor RADHA TAPIA ([id number]) on 02/23/2022 11:28:46 AM Referred By: ALDAIR Confirmed By:SANTHOSH MILLER MD
--- NOTE | 2022-02-22 12:02 | VDLE_ITS ---
[id number] VL^VDU^Venous Duplex US - Demetri Extrem [id number] Reason For Study: pain RIGHT LEFT CFV is compressible, spontaneous, competent CFV is compressible, spontaneous, competent, and demonstrates pulsatile venous flow. and demonstrates pulsatile venous flow. FV is compressible, spontaneous, competent FV is compressible, spontaneous, competent and demonstrates pulsatile venous flow. and demonstrates pulsatile venous flow. POP V is compressible, spontaneous, competent POP V is compressible, spontaneous, competent and demonstrates pulsatile venous flow. and demonstrates pulsatile venous flow. T/P Trunk is compressible. T/P Trunk is compressible. PTV is compressible. PTV is compressible. RT PerV is compressible. LT PerV is compressible. GSV is normal. GSV is normal. Procedure This is a venous duplex using B-mode, color flow and spectral Doppler. Exam performed portable in ED. The exam was diagnostic. A preliminary report was called and/or faxed to Dr. Olivia. VL/Venous Duplex US - Demetri Extrem Interpretation Summary Deep veins of the lower extremities are bilaterally patent and compressible seg mentally. There is no evidence of deep vein thrombosis on either side. Valvular competence appears in tact within the proximal deep venous systems bilaterally. The great saphenous veins appear bila terally patent and compressible segmentally. Pulsatile flow is noted in the deep venous system demetri aterally, which may be indicative of elevated central venous pressure (i.e. congestive heart failur e, pulmonary hypertension, etc.). Clinical correlation is advised. Ordering Physician: Maria Alejandra Olivia Performed By: Hermann Nicholson RVT
[2022-02-22 12:19] LABS: Absolute Lymphocyte Count 0.59 X10^3/uL (0.83-4.51); Absolute Neutrophil Count 7.5 X10^3/uL (2.0-7.7); Basophil# 0.03 X10^3/uL; Basophil% 0.3 % (0-1); Eosinophil# 0.05 X10^3/uL; Eosinophils% 0.6 % (0-5); Hematocrit 30.9 % (37-47); Hemoglobin 10.3 g/dL (12.0-15.0); Lymphocyte # 0.59 X10^3/ul (0.83-4.51); Lymphocyte % 6.7 % (19-41); Mean Corp Hgb Conc 33.3 g/dL (32-36); Mean Corpuscular Hgb 37.6 pg (27.0-32.0); Mean Corpuscular Volume 112.8 fL (81-99); Monocyte# 0.64 X10^3/uL; Monocyte% 7.2 % (0-10); NRBC Flagged by Analyzer 0 % (0-5); Neutrophil # 7.46 X10^3/uL (2.7-7.7); Neutrophil % 84.4 % (47-70); POSITIVE COUNT YES; POSITIVE DIFFERENTIAL YES; Platelet Count 52 K/mm3 (150-450); RBC Distribution Width CV 14.9 % (11.6-14.6); RBC Distribution Width SD 61.7 fl (35.1-43.9); Red Blood Count 2.74 M/mm3 (4.2-5.4); White Blood Count 8.8 K/mm3 (4.4-11.0)
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
[2022-02-22 12:25] LABS: Bedside Glucose 212 mg/dL (74-106)
[2022-02-22 12:27] LABS: Differential Indicated SCAN CRITERIA MET
[2022-02-22 12:40] LABS: Bacteria 0 SEEN /hpf (None Seen); Mucous, Urine 0 SEEN /hpf (<or=2+); Squamous Epithelial Cells - UA 0 SEEN /hpf (5-10)
[2022-02-22 12:41] LABS: AST(SGOT) 27 U/L (15-37); Alanine Aminotransfer ALT/SGPT 20 U/L (13-56); Albumin, Serum 3.1 g/dL (3.2-5.0); Alkaline Phosphatase 79 U/L (45-117); Anion Gap 9 (5-15); BUN 45 mg/dL (7-18); BUN/Creat Ratio 8.2 RATIO (10-20); Bilirubin, Direct 0.95 mg/dL (0.00-0.30); Calcium,Total 9.2 mg/dL (8.5-10.1); Chloride 94 mmol/L (98-107); Creatinine, Serum 5.52 mg/dL (0.55-1.02); EST Glomerular Filtration Rate 8 mL/min (>60); Est Glom Filt Rate - Afr Amer 10 mL/min (>60); Estimated Creatinine Clearance 6.23 ml/min; Globulin 3.9 g/dL (2.2-4.2); Glucose 226 mg/dL (74-106); Potassium 5.1 mmol/L (3.5-5.1); Sodium Level 132 mmol/L (136-145)
[2022-02-22 12:41] LABS: Color, Urine Yellow (Yellow); Glucose, Dipstick Normal (Normal); Ketone-Dipstick Negative (Negative); Leukocyte Esterase-Dipstick 500 /ul (Negative); Nitrite-Dipstick Negative (Negative); Occult Blood-Urine 250 /ul (Negative); Protein-Dipstick 500 mg/dl (Negative); Urine Bilirubin Dipstick Negative (Negative); Urine Clarity Turbid (Clear); Urine Urobilinogen Normal (Normal)
[2022-02-22 12:51] LABS: Red Blood Cells-Urine 25-50 SEEN /hpf (0-5); White Blood Cells 50-100 SEEN /hpf (0-5)
--- NOTE | 2022-02-22 12:56 | RAD_ITS ---
STUDY: X-RAY CHEST REASON FOR EXAM: Female, 76 years old. Shortness of breath. Altered level of consciousness. TECHNIQUE: Single AP portable view of the chest. COMPARISON: Comparison is made with prior study 02/10/2022. FINDINGS: EKG electrodes are seen. Blunting of the right posterior triangle with increased markings at the lung bases worse on the right side suggestive of right basilar atelectasis. This is improved as compared to prior study. Mild degree of vascular congestion. There is mild cardiac enlargement. Normal mediastinum and elva. Normal visualized pulmonary arteries. There is atherosclerotic calcification of the aortic arch with tortuosity. There are diffuse degenerative changes of the visualized thoracic spine. Normal visualized ribs, clavicles, and shoulders. There is no demonstrated abnormality of the visualized soft tissue structures of the upper abdomen. RAD/Chest 1 View (Portable) IMPRESSION: Bibasilar atelectasis/infiltrates worse on the right side with blunting of the right costophrenic angle. Mild degree of vascular congestion. Electronically Signed: Baljeet Chen MD at 13:30 EDT ,
[2022-02-22 13:01] LABS: Platelet Estimate MOD DEC (ADEQ)
[2022-02-22] MEDS: fentaNYL 100 MCG/2 ML Ampul 12.5 MCG IV (14:35)
[2022-02-22] MEDS: Clindamycin 600 MG/50 ML BAG 100 MG IV (14:57)
--- NOTE | 2022-02-22 15:10 | RAD_ITS ---
STUDY: X-RAY - PELVIS AND RIGHT HIP REASON FOR EXAM: Female, 76 years old. Severe right hip pain. TECHNIQUE: 3 views of the pelvis and hip. COMPARISON: None. FINDINGS: There is a non-specific bowel gas pattern. There are atherosclerotic vascular calcifications of the pelvic arteries. Normal bilateral iliac wings, sacroiliac joints and visualized sacrum. Questionable old fracture of the left inferior pubic ramus. There is narrowing with sclerosis of the pubic symphysis. Normal bilateral ischial tuberosities. Normal visualized femoral head. Normal acetabulum. is severe articular joint space narrowing of the hip. RAD/HIP, UNI W/ Pelvis 2-3 Views IMPRESSION: Degenerative changes. No acute fracture is seen. Electronically Signed: Baljeet Chen MD at 15:31 EDT ,
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
[2022-02-22 17:15] LABS: Bedside Glucose 232 mg/dL (74-106)
[2022-02-22] MEDS: Midodrine HCl 5 MG Tablet 10 MG PO (18:00)
[2022-02-22] MEDS: Calcium Acetate 667 MG Capsule 2001 MG PO (18:05)
[2022-02-22] MEDS: Insulin Lispro 100 UNIT/ML INSULN.PEN SC ×2 (18:06→22:12)
--- NOTE | 2022-02-22 19:45 | NURSING ---
this RN walked in room after report was received. pt responds to loud voice and touch and shaking, but immediately falls back asleep. pt alert to self only and unable to recall time or place. optometrist president/practice owner even stated that pt appears to be more lethargic than before pts blood glucose level was obtained and was 309. vitals obtained. Dr Wilson notified and new orders received and pt is to be transferred to PCU
--- NOTE | 2022-02-22 19:55 | PCM.HOSP.N ---
Hospitalist Note Patient more encephalopathic than upon presentation. Fever onset 104, requiring 2 OL NC. CXR with concern PNA as well as cellulitis, plan repeat in AM. Will transition abx to Vanc and Rocephin and monitor closely given history of allergies with PCN. Will obtain ABG and request BIPAP given COPD history for possible hypercapnia/retention.
--- NOTE | 2022-02-22 20:15 | NURSING ---
report called to Ryan on PCU at 2015
[2022-02-22 20:30] LABS: Allen Test Positive; Base Excess 4 mmol/L (-2 to +2); Bicarbonate 28.4 mmol/L (22-26); Blood Gas Specimen Type ART; O2 Delivery Device Cannula; PO2 84 mmHG (75-100); SITE R Radial; SO2 96 % (95-99); Total Carbon Dioxide 30 mmol/L; pH 7.42 (7.35-7.45)
--- NOTE | 2022-02-22 20:44 | PCM.RX.CS ---
Consult Pharmacy has been consulted to manage selected antiobiotic: Vancomycin Type of Consult: New start Suspected Infection: Other Labs: Sodium 132 mmol/L (136-145) L 02/22/22 11:50 Potassium 5.1 mmol/L (3.5-5.1) 02/22/22 11:50 Chloride 94 mmol/L (98-107) L 02/22/22 11:50 Carbon Dioxide 29.0 mmol/L (21.0-32.0) 02/22/22 11:50 Anion Gap 9 (5-15) 02/22/22 11:50 BUN 45 mg/dL (7-18) H 02/22/22 11:50 Creatinine 5.52 mg/dL (0.55-1.02) H 02/22/22 11:50 Est GFR (MDRD) Af Amer 10 mL/min (>60) L 02/22/22 11:50 Est GFR (MDRD) Non-Af 8 mL/min (>60) L 02/22/22 11:50 BUN/Creatinine Ratio 8.2 RATIO (10-20) L 02/22/22 11:50 Glucose 226 mg/dL (74-106) H 02/22/22 11:50 Microbiology: Microbiology 02/22/22 12:26 Nasal Secretion SARS-CoV-2 Antigen (Rapid) - Final Weight used for dosin.84 kg Pharmacy Plan for Drug Dosing: VANCOMYCIN 1500 MG IV X 1 DOSE per pharmacy vancomycin dosing protocol. Dosing schedule and pre-dialysis random vancomycin level to be determined with dialysis sessions. Pharmacy Service will continue to monitor and adjust dosing as required. Follow-Up Labs: Trough Other
[2022-02-22 20:46] LABS: Bedside Glucose 309 mg/dL (74-106)
--- NOTE | 2022-02-22 21:05 | NURSING ---
This nurse notified Beverly Butler, daughter, that patient had been moved to PCU rm 104. No concerns or questions voiced.
[2022-02-22] MEDS: Menthol/Lanolin/Calamine/Znox 113 GM Tube 1 APPLIC TOPICAL (21:08)
[2022-02-22] MEDS: Nystatin Powder 15gm Bottle 1 APPLIC TOPICAL (21:08)
[2022-02-22] MEDS: Insulin Glargine-YFGN 100 UNIT/ML Pen 15 UNIT SC (22:12)
[2022-02-22] MEDS: Latanoprost 0.005% 1 Bottle 1 DRP EACH EYE (22:17)
[2022-02-22 22:40] LABS: Bedside Glucose 270 mg/dL (74-106)
[2022-02-22 22:41] LABS: Lactic Acid 1.8 mmol/L (0.4-1.9)
[2022-02-23] VITALS (13 sets, daily range): BP systolic 104–126; BP diastolic 40–60; PULSE 58–69; RESP 12–20; TEMP 36.2–36.8; O2SAT 91–100
[2022-02-23] MEDS: Insulin Lispro 100 UNIT/ML INSULN.PEN SC ×3 (06:07→21:10)
[2022-02-23] MEDS: 0.9% Saline Lock 10 ML Syringe IV (06:09)
[2022-02-23 07:05] LABS: Absolute Lymphocyte Count 0.53 X10^3/uL (0.83-4.51); Absolute Neutrophil Count 4.9 X10^3/uL (2.0-7.7); Basophil# 0.02 X10^3/uL; Basophil% 0.3 % (0-1); Eosinophil# 0.14 X10^3/uL; Eosinophils% 2.3 % (0-5); Hematocrit 29.2 % (37-47); Hemoglobin 9.6 g/dL (12.0-15.0); Lymphocyte # 0.53 X10^3/ul (0.83-4.51); Lymphocyte % 8.5 % (19-41); Mean Corp Hgb Conc 32.9 g/dL (32-36); Mean Corpuscular Hgb 36.8 pg (27.0-32.0); Mean Corpuscular Volume 111.9 fL (81-99); Monocyte# 0.57 X10^3/uL; Monocyte% 9.2 % (0-10); NRBC Flagged by Analyzer 0 % (0-5); Neutrophil # 4.91 X10^3/uL (2.7-7.7); Neutrophil % 79.1 % (47-70); POSITIVE COUNT YES; POSITIVE DIFFERENTIAL YES; Platelet Count 47 K/mm3 (150-450); RBC Distribution Width CV 14.6 % (11.6-14.6); RBC Distribution Width SD 60.2 fl (35.1-43.9); Red Blood Count 2.61 M/mm3 (4.2-5.4); White Blood Count 6.2 K/mm3 (4.4-11.0)
[2022-02-23 07:10] LABS: Bedside Glucose 158 mg/dL (74-106)
[2022-02-23 07:12] LABS: Differential Indicated SCAN CRITERIA MET
[2022-02-23 07:39] LABS: Anion Gap 6 (5-15); BUN 53 mg/dL (7-18); BUN/Creat Ratio 9.2 RATIO (10-20); Calcium,Total 8.7 mg/dL (8.5-10.1); Chloride 95 mmol/L (98-107); Creatinine, Serum 5.78 mg/dL (0.55-1.02); EST Glomerular Filtration Rate 8 mL/min (>60); Est Glom Filt Rate - Afr Amer 9 mL/min (>60); Estimated Creatinine Clearance 5.95 ml/min; Glucose 167 mg/dL (74-106); Potassium 5.1 mmol/L (3.5-5.1); Sodium Level 130 mmol/L (136-145)
[2022-02-23 07:44] LABS: Platelet Estimate MKD DEC (ADEQ)
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
[2022-02-23] MEDS: Midodrine HCl 5 MG Tablet 10 MG PO ×3 (09:55→17:11)
[2022-02-23] MEDS: Menthol/Lanolin/Calamine/Znox 113 GM Tube 1 APPLIC TOPICAL ×2 (09:55→21:04)
[2022-02-23] MEDS: Nystatin Powder 15gm Bottle 1 APPLIC TOPICAL ×2 (09:56→21:04)
--- NOTE | 2022-02-23 10:48 | PN.HOSP_ITS ---
Documented by User: EMILIANA Morley 02/23/22 10:55 Subjective Subjective Patient seen and examined. Patient currently receiving dialysis. Patient lying in bed alert and oriented. Objective Data Objective Data Vital Signs: Vital Signs Temp Pulse Resp BP Pulse Ox O2 Del Method O2 Flow Rate 97.6 F L 65 18 126/60 H 100 Nasal Cannula 2 02/23/22 09:00 02/23/22 09:00 02/23/22 09:00 02/23/22 09:00 02/23/22 09:00 02/23/22 10:08 02/23/22 10:08 FiO2 30 02/23/22 02:59 Oxygen Flow Rate (L/min) 2 Oxygen Delivery Method Nasal Cannula Weight: 211 lb 4.8 oz Body Mass Index (BMI) 41.2 Intake & Output: Intake and Output for Last 24 Hours 02/21/22 02/22/22 02/23/22 23:59 23:59 23:59 Intake Total 1230 / 1230 300 / 300 Balance 1230 / 1230 300 / 300 Lab / Micro Data Result Diagrams: 02/23/22 05:30 02/23/22 05:30 Labs: Laboratory Results - last 24 hr 02/22/22 11:38: POC Glucose 212 H 02/22/22 11:50: WBC 8.8, RBC 2.74 L, Hgb 10.3 L, Hct 30.9 L, MCV 112.8 H, MCH 37.6 H, MCHC 33.3, RDW Std Deviation 61.7 H, RDW Coeff of Kusum 14.9 H, Plt Count 52 L, MPV 12.0, Immature Gran % (Auto) 0.800, Neut % (Auto) 84.4 H, Lymph % (Auto) 6.7 L, [place] % (Auto) 7.2, Eos % (Auto) 0.6, Baso % (Auto) 0.3, Absolute Neuts (auto) 7.5, Absolute Lymphs (auto) 0.59 L, Nucleated RBC % 0, Differential Comment COMMENT, Platelet Estimate MOD DEC 02/22/22 11:50: Sodium 132 L, Potassium 5.1, Chloride 94 L, Carbon Dioxide 29.0, Anion Gap 9, BUN 45 H, Creatinine 5.52 H, Estim Creat Clear Calc 6.23, Est GFR (MDRD) Af Amer 10 L, Est GFR (MDRD) Non-Af 8 L, BUN/Creatinine Ratio 8.2 L, Glucose 226 H, Calcium 9.2, Total Bilirubin 1.90 H, Direct Bilirubin 0.95 H, AST 27, ALT 20, Alkaline Phosphatase 79, Total Protein 7.0, Albumin 3.1 L, Globulin 3.9 02/22/22 12:30: Urine Color Yellow, Urine Clarity Turbid, Urine pH 7.0, Ur Specific [place] 1.010, Urine Protein 500 H, Urine Glucose (UA) Normal, Urine Ketones Negative, Urine Occult Blood 250 H, Urine Nitrite Negative, Urine Bilirubin Negative, Urine Urobilinogen Normal, Ur Leukocyte Esterase 500 H, Urine RBC 25-50 SEEN, Urine WBC 50-100 SEEN, Ur Squamous Epith Cells 0 SEEN, Urine Bacteria 0 SEEN, Urine Mucus 0 SEEN 02/22/22 13:35: Ammonia 25.0 02/22/22 16:50: POC Glucose 232 H 02/22/22 19:45: POC Glucose 309 H 02/22/22 22:09: Lactic Acid 1.8 02/22/22 22:10: POC Glucose 270 H 02/23/22 05:30: WBC 6.2, RBC 2.61 L, Hgb 9.6 L, Hct 29.2 L, MCV 111.9 H, MCH 3 6.8 H, MCHC 32.9, RDW Std Deviation 60.2 H, RDW Coeff of Kusum 14.6, Plt Count 47 L*, MPV 12.0, Immature Gran % (Auto) 0.600, Neut % (Auto) 79.1 H, Lymph % (Auto) 8.5 L, [place] % (Auto) 9.2, Eos % (Auto) 2.3, Baso % (Auto) 0.3, Absolute Neuts (auto) 4.9, Absolute Lymphs (auto) 0.53 L, Nucleated RBC % 0, Diff Path Review October sukhjinder, Platelet Estimate MKD 02/23/22 05:30: Sodium 130 L, Potassium 5.1, Chloride 95 L, Carbon Dioxide 29.0, Anion Gap 6, BUN 53 H, Creatinine 5.78 H, Estim Creat Clear Calc 5.95, Est GFR (MDRD) Af Amer 9 L, Est GFR (MDRD) Non-Af 8 L, BUN/Creatinine Ratio 9.2 L, Glucose 167 H, Calcium 8.7 02/23/22 06:03: POC Glucose 158 H Micro: Microbiology 02/22/22 12:40 Blood Culture (Wb) - Right Hand Blood Culture - Preliminary 02/22/22 20:10 Mucosa - Nasopharyngeal Respiratory Panel (PCR) - Final 02/22/22 12:26 Nasal Secretion SARS-CoV-2 Antigen (Rapid) - Final ABG Data ABG results: ABG 02/22/22 20:23 Specimen Type ART Sample Site R Radial pH 7.42 Bicarbonate Actual 28.4 H Total CO2 30 Base Excess 4 H O2 Saturation 96 ABG pCO2 44.0 ABG pO2 84 Mike Test Positive O2 Delivery Device Cannula Liter Flow 2.0 Radiography Diagnostic Testing: Radiology Impression Brain CT 02/22/22 11:57 IMPRESSION: Chronic involutional changes of the brain. Partial opacification of the right sphenoid sinus. Partial opacification of the ethmoid sinuses. Electronically Signed: Baljeet Chen MD at 13:56 EDT , Venous Doppler Study 02/22/22 12:02 Interpretation Summary Deep veins of the lower extremities are bilaterally patent and compressible segmentally. There is no evidence of deep vein thrombosis on either side. Valvular competence appears intact within the proximal deep venous systems bilaterally. The great saphenous veins appear bilaterally patent and compressible segmentally. Pulsatile flow is noted in the deep venous system bilaterally, which may be indicative of elevated central venous pressure (i.e. congestive heart fail ure, pulmonary hypertension, etc.). Clinical correlation is advised. Ordering Physician: Maria Alejandra Olivia Performed By: Hermann Nicholson, RVT Chest X-Ray 02/22/22 12:56 IMPRESSION: Bibasilar atelectasis/infiltrates worse on the right side with blunting of the right costophrenic angle. Mild degree of vascular congestion. Electronically Signed: Baljeet Chen MD at 13:30 EDT , Hip/Pelvis X-Ray 02/22/22 15:10 IMPRESSION: Degenerative changes. No acute fracture is seen. Electronically Signed: Baljeet Chen MD at 15:31 EDT , Physical Exam Const alert General Appearance: cooperative HEENT normocephalic and head/scalp atraumatic Eyes conjunctivae normal Neck no lymphadenopathy, supple and no JVD Resp normal respiratory effort and clear to auscultation bilaterally Effort and Inspection: able to speak in complete sentences and symmetric chest movement Auscultation: diminished lung sounds Cardio regular rate, regular rhythm, S1 normal heart sound and S2 normal heart sound GI normal to inspection, nondistended, normoactive bowel sounds, soft to palpation and non-tender Extremity Extremity Narrative: RLE erythematous, tender, swollen from thigh down to ankle, with erythematous macular rash over upper thigh, 1+ edema Neuro oriented x3 and moves all extremities Sensorium / Orientation: awake Motor Exam: strength 5/5 throughout Assessment & Plan Assessment/Plan (1) Cellulitis: (2) Generalized weakness: (3) Encephalopathy acute: PLAN: Plan 1. Acute metabolic encephalopathy -Improved, patient now alert and oriented -Urinalysis showed evidence of UTI -Continue clindamycin -Blood and urine cultures pending -Wound nurse consulted 2. ESRD -Currently undergoing dialysis -Dr. Steward following with nephrology 3. History of stroke -Continue aspirin and Plavix 4. Type 2 diabetes mellitus -ACH S blood sugars with sliding scale insulin ordered -Continue Lantus 5. Paroxysmal A. fib -Continue carvedilol -Not currently anticoagulated due to history of thrombocytopenia 6. History of seizure disorder -Continue Vimpat 7. ELENITA -CPAP at at bedtime 8. History of hypotension -Continue midodrine DVT prophylaxis: SCDs This patient was seen by Tiffany Reina NP-C under the supervision of Dr. Steward. 14 minutes spent in clinical coordination of patient's plan of care. Documented by User: Dr. Leslee Steward DO 02/23/22 13:32 Subjective Subjective This patient was seen in conjunction with Tiffany Ricks NP. Following represents my independent history and physical examination. Please see below for addendum the above. Mental status appears to be back to baseline. She is currently on dialysis and asking for food. She has no significant complaints at this time. Overall is a fairly poor historian Objective Data Lab / Micro Data Result Diagrams: 02/23/22 05:30 02/23/22 05:30 Physical Exam Const alert, oriented x3, no apparent distress and well nourished Constitutional Narrative: Morbidly obese, older white female, appears older than stated age, sitting up in bed currently on dialysis, dialysis nurse at bedside General Appearance: uncooperative HEENT head/scalp atraumatic and moist oral mucous membranes HEENT Narrative: Dentition is poor, Mallampati is 2, no thrush Head and Scalp: normocephalic Resp normal respiratory effort, no retractions, no use of accessory muscles and clear to auscultation bilaterally Resp Narrative: Diffusely diminished more notably at bases bilaterally but no adventitious sounds Auscultation: Negative for crackles, rales, rhonchi or wheezes Cardio regular rate, regular rhythm, S1 normal heart sound, S2 normal heart sound, no rub, no gallops, no clicks and no JVD GI normal to inspection, nondistended, normoactive bowel sounds, soft to palpation, non-tender and hepatosplenomegaly Extremity Extremity Narrative: RLE erythematous, tender, swollen from thigh down to ankle, with erythematous macular rash over upper thigh that appears like large petechiae, 1+ edema, no cyanosis or clubbing, multiple scratches noted on lower leg on right Skin no jaundice and no mottling Skin Narrative: See above Neuro oriented x3, moves all extremities and no focal motor deficits Neuro Narrative: Marked generalized weakness Sensorium / Orientation: awake, alert, oriented to person, oriented to place and oriented to time Speech: speech normal Psych affect normal Assessment & Plan Assessment/Plan (1) Cellulitis: (2) Generalized weakness: (3) Encephalopathy acute: PLAN: Plan Assessment: Acute metabolic encephalopathy Right lower extremity cellulitis Suspected possible gram-negative pneumonia Acute urinary tract infection HFpEF-compensated Chronic hyponatremia Chronic anemia secondary to end-stage renal disease Chronic thrombocytopenia DM-2 ESRD on HD Seizure disorder Hypertension Morbid obesity History of stroke PAF ELENITA Chronic hypotension Plan: -Dialysis per nephrology -Mental status is back to baseline -Cultures pending -Continue antibiotics as ordered with ceftriaxone and vancomycin -Wound care -Continue home chronic medications -CPAP/BiPAP at at bedtime -Continue home midodrine -Continue sliding scale insulin and Accu-Cheks as ordered Charges/Coding Visit Charges Inpatient E&M: 71391 Subs Hosp L2
--- NOTE | 2022-02-23 11:28 | PCM.RX.CS ---
Consult Pharmacy has been consulted to manage selected antiobiotic: Vancomycin Type of Consult: Follow-up Suspected Infection: Skin/Soft tissue Prior Doses of Antibiotics Received/Current Regimen: RECEIVED 1500MG IV X 1 ON 02.22.22. Labs: Sodium 130 mmol/L (136-145) L 02/23/22 05:30 Potassium 5.1 mmol/L (3.5-5.1) 02/23/22 05:30 Chloride 95 mmol/L (98-107) L 02/23/22 05:30 Carbon Dioxide 29.0 mmol/L (21.0-32.0) 02/23/22 05:30 Anion Gap 6 (5-15) 02/23/22 05:30 BUN 53 mg/dL (7-18) H 02/23/22 05:30 Creatinine 5.78 mg/dL (0.55-1.02) H 02/23/22 05:30 Est GFR (MDRD) Af Amer 9 mL/min (>60) L 02/23/22 05:30 Est GFR (MDRD) Non-Af 8 mL/min (>60) L 02/23/22 05:30 BUN/Creatinine Ratio 9.2 RATIO (10-20) L 02/23/22 05:30 Glucose 167 mg/dL (74-106) H 02/23/22 05:30 Microbiology: Microbiology 02/22/22 12:40 Blood Culture (Wb) - Right Hand Blood Culture - Preliminary 02/22/22 20:10 Mucosa - Nasopharyngeal Respiratory Panel (PCR) - Final 02/22/22 12:26 Nasal Secretion SARS-CoV-2 Antigen (Rapid) - Final Weight used for dosin.8 kg Estimated Creatinine Clearance: ~6ml/min Goal Trough: 15-20 mcg/mL Pharmacy Plan for Drug Dosing: Patient receiving dialysis today. Have ordered 1 x dose of 750mg to be given post dialysis. Random level ordered for AM 02.24.22. Further dosing to be determined based on level and dialysis schedule. Pharmacy Service will continue to monitor and adjust dosing as required. Follow-Up Labs: Trough Vancomycin - random level 02.24.22 @0600
--- NOTE | 2022-02-23 11:55 | WOUNDNOTE ---
wound photo: right lower leg
--- NOTE | 2022-02-23 12:33 | DIALYSIS ---
Hemodialysis complete via left arm AV fistula with 3.5 liters fluid removed. Stasis obtained after needles removed. Pt tolerated treatment without difficulty.
[2022-02-23] MEDS: Carvedilol 6.25 MG Tablet PO (12:47)
[2022-02-23] MEDS: Calcium Acetate 667 MG Capsule PO ×2 (12:47→17:11)
[2022-02-23] MEDS: Aspirin E.C. 81 MG Tablet PO (12:47)
[2022-02-23] MEDS: Pantoprazole Sodium 20 MG Tablet PO (12:48)
[2022-02-23] MEDS: Vitamin B Comp W-C Capsule 1 CAP PO (12:48)
[2022-02-23] MEDS: Lisinopril 10 MG Tablet PO (12:48)
[2022-02-23] MEDS: Lacosamide 100 MG Tablet PO (12:57)
[2022-02-23] MEDS: Gabapentin 100 MG Capsule 200 MG PO (12:57)
[2022-02-23] MEDS: Insulin Glargine-YFGN 100 UNIT/ML Pen 15 UNIT SC ×2 (12:59→21:09)
[2022-02-23] MEDS: Epoetin Alfa epbx 10,000 UNITS/ML 2000 UNIT IV (13:01)
[2022-02-23 13:10] LABS: Bedside Glucose 105 mg/dL (74-106)
--- NOTE | 2022-02-23 13:10 | CASEMGMT ---
RN KAMILA Face to Face with patient for initial transition planning/care coordination assessment. RN KAMILA introduced self and role at [facility]. Patient lying in bed, alert and oriented. Patient willing to participate in assessment and is able to answer all questions appropriately. Care providers, pharmacy, and demographics verified. Patient wishes to discharge home with resumption of HHC and aides. Patient states she has no further needs or concerns at this time. CM to follow for discharge planning needs that may arise. PCP: [facility] Specialists: Bin, director of income tax; January, range technician Preferred Pharmacy: [facility] Insurance: [employer] [facility] Prescription Benefit: yes Living Will/HPOA: yes, daughter Beverly Butler LNOK: daughter, son Living Arrangements: Patient lives alone in a first floor apartment with no steps to enter. Patient states she is independent at home for self care. Transportation: daughter, Access transport through [facility] DME/HHC: Patient states she has a cane, walker, rollator, wheelchair, medical alert, lift chair, grab bars, and pulse ox at home. Patient has been to [facility] and [facility] in the past. Patient is currently active with [facility] for senior care. Patient has aide services 3hrs/day 3days/week through [facility]. Patient received Passport services with KAMILA Timmons. Patient attends HD at [facility] at 1100. Disposition Plan: Patient to discharge home with resumption of HHC and aides, family support, and follow-up plans in place. Monet IZQUIERDO, RN, CM
--- NOTE | 2022-02-23 14:05 | RAD_ITS ---
STUDY: X-RAY CHEST REASON FOR EXAM: Female, 76 years old. Pneumonia. Cellulitis and confusion. TECHNIQUE: PA and lateral views of the chest. COMPARISON: 02/22/2022. FINDINGS: Limited inspiratory effort. There is slight increase in right pleural effusion and atelectatic change when compared to prior study. There is minimal interstitial changes in the left perihilar region. Stable cardiomegaly. Normal mediastinum and elva. Normal visualized pulmonary arteries. There is atherosclerotic calcification of the aortic arch with tortuosity. The thoracic spine is obscured by the mediastinum. Normal visualized ribs, clavicles, and shoulders. There is no demonstrated abnormality of the visualized soft tissue structures of the upper abdomen. RAD/Chest PA and Lateral IMPRESSION: Limited inspiratory effort with increasing right pleural effusion and bilateral infiltrates/atelectasis. Electronically Signed: Wicho Del Angel DO at 18:23 EDT ,
[2022-02-23 17:46] LABS: Bedside Glucose 177 mg/dL (74-106)
[2022-02-23] MEDS: Latanoprost 0.005% 1 Bottle 1 DRP EACH EYE (21:06)
[2022-02-23 22:35] LABS: Bedside Glucose 190 mg/dL (74-106)
[2022-02-24] VITALS (13 sets, daily range): BP systolic 101–163; BP diastolic 38–61; PULSE 61–79; RESP 18–20; TEMP 36.5–36.9; O2SAT 93–100
[2022-02-24 06:14] LABS: Absolute Lymphocyte Count 0.47 X10^3/uL (0.83-4.51); Absolute Neutrophil Count 3.7 X10^3/uL (2.0-7.7); Basophil# 0.04 X10^3/uL; Basophil% 0.8 % (0-1); Eosinophil# 0.15 X10^3/uL; Hematocrit 30.6 % (37-47); Hemoglobin 9.8 g/dL (12.0-15.0); Lymphocyte # 0.47 X10^3/ul (0.83-4.51); Lymphocyte % 9.3 % (19-41); Mean Corpuscular Hgb 36.4 pg (27.0-32.0); Mean Corpuscular Volume 113.8 fL (81-99); Mean Platelet Vol. 12.2 fl (6.2-12.0); Monocyte# 0.67 X10^3/uL; Monocyte% 13.2 % (0-10); NRBC Flagged by Analyzer 0 % (0-5); Neutrophil # 3.72 X10^3/uL (2.7-7.7); Neutrophil % 73.3 % (47-70); POSITIVE COUNT YES; POSITIVE DIFFERENTIAL YES; Platelet Count 62 K/mm3 (150-450); RBC Distribution Width CV 14.5 % (11.6-14.6); RBC Distribution Width SD 60.5 fl (35.1-43.9); Red Blood Count 2.69 M/mm3 (4.2-5.4); White Blood Count 5.1 K/mm3 (4.4-11.0)
[2022-02-24 06:18] LABS: Differential Indicated SCAN CRITERIA MET
[2022-02-24 06:31] LABS: Anisocytosis 1+; Macrocytosis 2+
[2022-02-24 06:32] LABS: Platelet Estimate MOD DEC (ADEQ)
[2022-02-24 06:40] LABS: ALB/GLOB Ratio 0.6 RATIO (0.9-2.4); AST(SGOT) 39 U/L (15-37); Alanine Aminotransfer ALT/SGPT 25 U/L (13-56); Albumin, Serum 2.5 g/dL (3.2-5.0); Alkaline Phosphatase 78 U/L (45-117); Anion Gap 7 (5-15); BUN 42 mg/dL (7-18); BUN/Creat Ratio 9.3 RATIO (10-20); Calcium,Total 8.3 mg/dL (8.5-10.1); Chloride 99 mmol/L (98-107); Creatinine, Serum 4.54 mg/dL (0.55-1.02); EST Glomerular Filtration Rate 10 mL/min (>60); Est Glom Filt Rate - Afr Amer 12 mL/min (>60); Estimated Creatinine Clearance 7.57 ml/min; Globulin 3.9 g/dL (2.2-4.2); Glucose 169 mg/dL (74-106); Potassium 4.6 mmol/L (3.5-5.1); Protein, Total 6.4 g/dL (6.4-8.2); Sodium Level 132 mmol/L (136-145)
[2022-02-24 06:42] LABS: Vancomycin, Random Level 20.4 ug/mL (0.0-15.0)
[2022-02-24] MEDS: Insulin Lispro 100 UNIT/ML INSULN.PEN SC ×3 (06:46→21:43)
--- NOTE | 2022-02-24 07:40 | PCM.RX.CS ---
Consult Pharmacy has been consulted to manage selected antiobiotic: Vancomycin Type of Consult: Follow-up Suspected Infection: Skin/Soft tissue Prior Doses of Antibiotics Received/Current Regimen: Last dose was 750mg iv x 1 post dialysis on 02.23.22. Labs: Sodium 132 mmol/L (136-145) L 02/24/22 05:51 Potassium 4.6 mmol/L (3.5-5.1) 02/24/22 05:51 Chloride 99 mmol/L (98-107) 02/24/22 05:51 Carbon Dioxide 26.0 mmol/L (21.0-32.0) 02/24/22 05:51 Anion Gap 7 (5-15) 02/24/22 05:51 BUN 42 mg/dL (7-18) H 02/24/22 05:51 Creatinine 4.54 mg/dL (0.55-1.02) H 02/24/22 05:51 Est GFR (MDRD) Af Amer 12 mL/min (>60) L 02/24/22 05:51 Est GFR (MDRD) Non-Af 10 mL/min (>60) L 02/24/22 05:51 BUN/Creatinine Ratio 9.3 RATIO (10-20) L 02/24/22 05:51 Glucose 169 mg/dL (74-106) H 02/24/22 05:51 Random Vancomycin 20.4 ug/mL (0.0-15.0) H 02/24/22 05:51 Microbiology: Microbiology 02/22/22 12:40 Blood Culture (Wb) - Right Hand Blood Culture - Preliminary 02/22/22 20:10 Mucosa - Nasopharyngeal Respiratory Panel (PCR) - Final 02/22/22 12:26 Nasal Secretion SARS-CoV-2 Antigen (Rapid) - Final Weight used for dosin.8 kg Estimated Creatinine Clearance: 8ml/min Goal Trough: 15-20 mcg/mL Pharmacy Plan for Drug Dosing: Random level this AM ~12.5hrs post dose was 20.4. Patient to receive dialysis today so have ordered 500mg iv x 1 dose to be given post dialysis. Random level ordered for Sat 8.27 in AM pre dialysis (dialysis schedule is ). Pharmacy Service will continue to monitor and adjust dosing as required. Follow-Up Labs: Trough Vancomycin - random 02.26.22@0600
[2022-02-24 07:55] LABS: Bedside Glucose 165 mg/dL (74-106)
[2022-02-24] MEDS: Midodrine HCl 5 MG Tablet 10 MG PO ×3 (08:33→17:01)
[2022-02-24 09:57] LABS: Pathologist Review Reviewed
--- NOTE | 2022-02-24 11:23 | PN.RENAL_ITS ---
Subjective Subjective seen on dialysis, proceeding without incident. Edema improved. Pt alert Objective Data Objective Data Vital Signs: Vital Signs Temp Pulse Resp BP Pulse Ox O2 Del Method O2 Flow Rate 98.4 F 61 18 108/53 L 96 Nasal Cannula 1 02/24/22 08:28 02/24/22 11:00 02/24/22 08:28 02/24/22 08:28 02/24/22 08:28 02/24/22 08:35 02/24/22 08:35 FiO2 30 02/23/22 02:59 Oxygen Flow Rate (L/min) 1 Oxygen Delivery Method Nasal Cannula Weight: 95.844 kg Body Mass Index (BMI) 41.2 Intake & Output: Intake and Output for Last 24 Hours 02/22/22 02/23/22 02/24/22 23:59 23:59 23:59 Intake Total 1230 / 1230 915 / 915 Output Total 3500 / 3500 Balance 1230 / 1230 -2585 / -2585 Lab / Micro Data Result Diagrams: 02/24/22 05:51 02/24/22 05:51 Labs: Laboratory Results - last 24 hr 02/23/22 05:30: Diff Path Review Reviewed 02/23/22 12:44: POC Glucose 105 02/23/22 17:08: POC Glucose 177 H 02/23/22 21:09: POC Glucose 190 H 02/24/22 05:51: WBC 5.1, RBC 2.69 L, Hgb 9.8 L, Hct 30.6 L, MCV 113.8 H, MCH 36.4 H, MCHC 32.0, RDW Std Deviation 60.5 H, RDW Coeff of Kusum 14.5, Plt Count 62 L, MPV 12.2 H, Immature Gran % (Auto) 0.400, Neut % (Auto) 73.3 H, Lymph % (Auto) 9.3 L, Harrison % (Auto) 13.2 H, Eos % (Auto) 3.0, Baso % (Auto) 0.8, Absolute Neuts (auto) 3.7, Absolute Lymphs (auto) 0.47 L, Nucleated RBC % 0, Platelet Estimate MOD DEC, Anisocytosis 1+, Macrocytosis 2+ 02/24/22 05:51: Sodium 132 L, Potassium 4.6, Chloride 99, Carbon Dioxide 26.0, Anion Gap 7, BUN 42 H, Creatinine 4.54 H, Estim Creat Clear Calc 7.57, Est GFR (MDRD) Af Amer 12 L, Est GFR (MDRD) Non-Af 10 L, BUN/Creatinine Ratio 9.3 L, Glucose 169 H, Calcium 8.3 L, Total Bilirubin 0.80, AST 39 H, ALT 25, Alkaline Phosphatase 78, Total Protein 6.4, Albumin 2.5 L, Globulin 3.9, Albumin/Globulin Ratio 0.6 L 02/24/22 05:51: Random Vancomycin 20.4 H 02/24/22 06:45: POC Glucose 165 H Micro: Microbiology 02/22/22 12:23 Urine, Catheterized Urine Culture - Preliminary Yeast Like Organism 02/22/22 12:40 Blood Culture (Wb) - Right Hand Blood Culture - Preliminary Staphylococcus aureus 02/22/22 20:10 Mucosa - Nasopharyngeal Respiratory Panel (PCR) - Final 02/22/22 12:26 Nasal Secretion SARS-CoV-2 Antigen (Rapid) - Final Radiography Diagnostic Testing: Radiology Impression Chest X-Ray 02/23/22 14:05 IMPRESSION: Limited inspiratory effort with increasing right pleural effusion and bilateral infiltrates/atelectasis. Electronically Signed: Wicho Del Angel DO at 18:23 EDT Reading Location ID and State: [address] [place] [address] Tel [phone], Service support , Physical Exam Const alert and oriented x3 Resp clear to auscultation bilaterally Cardio regular rate Extremity Extremity Narrative: legs wrapped Assessment & Plan Assessment/Plan (1) ESRD (end stage renal disease) on dialysis: PLAN: HD today and TTS. Next dialysis Sat. (2) Encephalopathy acute: PLAN: MS back to baseline (3) Cellulitis: PLAN: antibx per primary service (4) Generalized weakness: (5) Anemia: PLAN: epo on dialysis (6) Diabetes mellitus type 2 in obese: (7) Hypotension: PLAN: midodrine (8) Thrombocytopenia: PLAN: chronic
--- NOTE | 2022-02-24 11:32 | DIALYSIS ---
Hemodialysis complete with 2200ml fluid removed. Left arm AV fistula positive for thrill and bruit, stasis obtained after needles removed. Pt tolerated treatment without difficulty.
[2022-02-24] MEDS: Aspirin E.C. 81 MG Tablet PO (11:53)
[2022-02-24] MEDS: Pantoprazole Sodium 20 MG Tablet PO (11:53)
[2022-02-24] MEDS: Vitamin B Comp W-C Capsule 1 CAP PO (11:55)
[2022-02-24] MEDS: Menthol/Lanolin/Calamine/Znox 113 GM Tube 1 APPLIC TOPICAL ×2 (11:56→21:41)
[2022-02-24] MEDS: Nystatin Powder 15gm Bottle 1 APPLIC TOPICAL ×2 (11:57→21:43)
[2022-02-24] MEDS: Insulin Glargine-YFGN 100 UNIT/ML Pen 15 UNIT SC ×2 (11:58→21:43)
[2022-02-24] MEDS: Gabapentin 100 MG Capsule 200 MG PO ×2 (11:59→21:44)
[2022-02-24] MEDS: Calcium Acetate 667 MG Capsule PO ×2 (11:59→17:01)
[2022-02-24] MEDS: Lacosamide 100 MG Tablet PO ×2 (12:00→22:25)
[2022-02-24 12:26] LABS: Bedside Glucose 98 mg/dL (74-106)
--- NOTE | 2022-02-24 12:51 | PCM.PN.HOSP ---
Documented by User: Lesly Carter NP, DIRECTOR SAFETY COUNCIL-C 02/24/22 13:18 Subjective Subjective Patient seen and examined. Undergoing dialysis. Intermittently drowsy. Denies specific complaints. Objective Data Objective Data Vital Signs: Vital Signs Temp Pulse Resp BP Pulse Ox O2 Del Method O2 Flow Rate 97.7 F L 64 18 123/48 H 97 Room Air 1 02/24/22 11:50 02/24/22 11:50 02/24/22 11:50 02/24/22 11:50 02/24/22 11:50 02/24/22 11:50 02/24/22 08:35 FiO2 30 02/23/22 02:59 Oxygen Flow Rate (L/min) 1 Oxygen Delivery Method Room Air Weight: 211 lb 4.797 oz Body Mass Index (BMI) 41.2 Intake & Output: Intake and Output for Last 24 Hours 02/22/22 02/23/22 02/24/22 23:59 23:59 23:59 Intake Total 1230 / 1230 915 / 915 120 / 120 Output Total 3500 / 3500 2200 / 2200 Balance 1230 / 1230 -2585 / -2585 -2080 / -2080 Lab / Micro Data Result Diagrams: 02/24/22 05:51 02/24/22 05:51 Labs: Laboratory Results - last 24 hr 02/23/22 05:30: Diff Path Review Reviewed 02/23/22 12:44: POC Glucose 105 02/23/22 17:08: POC Glucose 177 H 02/23/22 21:09: POC Glucose 190 H 02/24/22 05:51: WBC 5.1, RBC 2.69 L, Hgb 9.8 L, Hct 30.6 L, MCV 113.8 H, MCH 36.4 H, MCHC 32.0, RDW Std Deviation 60.5 H, RDW Coeff of Kusum 14.5, Plt Count 62 L, MPV 12.2 H, Immature Gran % (Auto) 0.400, Neut % (Auto) 73.3 H, Lymph % (Auto) 9.3 L, Donley % (Auto) 13.2 H, Eos % (Auto) 3.0, Baso % (Auto) 0.8, Absolute Neuts (auto) 3.7, Absolute Lymphs (auto) 0.47 L, Nucleated RBC % 0, Platelet Estimate MOD DEC, Anisocytosis 1+, Macrocytosis 2+ 02/24/22 05:51: Sodium 132 L, Potassium 4.6, Chloride 99, Carbon Dioxide 26.0, Anion Gap 7, BUN 42 H, Creatinine 4.54 H, Estim Creat Clear Calc 7.57, Est GFR (MDRD) Af Amer 12 L, Est GFR (MDRD) Non-Af 10 L, BUN/Creatinine Ratio 9.3 L, Glucose 169 H, Calcium 8.3 L, Total Bilirubin 0.80, AST 39 H, ALT 25, Alkaline Phosphatase 78, Total Protein 6.4, Albumin 2.5 L, Globulin 3.9, Albumin/Globulin Ratio 0.6 L 02/24/22 05:51: Random Vancomycin 20.4 H 02/24/22 06:45: POC Glucose 165 H 02/24/22 11:46: POC Glucose 98 Micro: Microbiology 02/22/22 12:23 Urine, Catheterized Urine Culture - Preliminary Yeast Like Organism 02/22/22 12:40 Blood Culture (Wb) - Right Hand Blood Culture - Preliminary Staphylococcus aureus 02/22/22 20:10 Mucosa - Nasopharyngeal Respiratory Panel (PCR) - Final 02/22/22 12:26 Nasal Secretion SARS-CoV-2 Antigen (Rapid) - Final Radiography Diagnostic Testing: Radiology Impression Chest X-Ray 02/23/22 14:05 IMPRESSION: Limited inspiratory effort with increasing right pleural effusion and bilateral infiltrates/atelectasis. Electronically Signed: Wicho SanabriaonDO at 18:23 EDT Reading Location ID and State: [address] [place] [address] Tel [phone], Service support , Physical Exam Const alert and oriented x3 HEENT normocephalic Mouth: dry mucous membranes Eyes PERRL, EOMs intact bilaterally and conjunctivae normal Neck no lymphadenopathy Resp clear to auscultation bilaterally Auscultation: diminished lung sounds Cardio regular rate, regular rhythm and no murmurs Peripheral Pulses: pulses 2+ throughout GI normal to inspection, nondistended, normoactive bowel sounds, non-tender and non-distended Extremity normal to inspection Skin no rashes or lesions noted Skin Narrative: Right lower extremity erythema and edema Lesions: no lesions Rashes: no rashes Trauma: no lacerations or abrasions Neuro CN's II-XII intact bilaterally, no focal motor deficits, no sensory deficits noted and deep tendon reflexes 2+ bilaterally Psych Mood & Affect: flat affect Assessment & Plan Assessment/Plan (1) Encephalopathy acute: PLAN: Plan 1. Acute metabolic encephalopathy secondary to right lower extremity cellulitis, UTI and suspected gram-negative pneumonia, staff aureus bacteremia-treat underlying processes. Mental status improved, appears at baseline. 2. Right lower extremity cellulitis-continue IV Rocephin and IV vancomycin. Wound RN consult. 3. Staph aureus bacteremia-likely related to cellulitis. Continue IV vancomycin. Repeat blood cultures. Obtain echocardiogram. Consult ID. 4. Acute UTI-continue IV Rocephin per above. Culture pending. 5. Suspected gram-negative pneumonia-obtain sputum culture. Treat empirically with antibiotics per above. Albuterol and DuoNeb aerosols. 6. End-stage renal disease on hemodialysis-nephrology consulted for ongoing dialysis. 7. History of CVA- continue aspirin, statin. 8. Type 2 diabetes [id number] with sliding scale insulin.? Continue home insulin regimen. 9. Anemia of chronic disease-at baseline. 10. Paroxysmal atrial fibrillation-not on rate control regimen or anticoagulation. 11. Chronic seizure disorder-on Vimpat. 12. Hypertension-stable, continue current regimen. 13. Hyperlipidemia- continue statin. 14. ELENITA-continue CPAP 15. Obesity-encouraged diet and lifestyle modifications. DVT prophylaxis-Heparin subcu This patient was seen by Lesly Carter NP-C under the supervision of Dr. Steward. Documented by User: Dr. Leslee Steward DO 02/24/22 14:59 Subjective Subjective This patient was seen in conjunction with Lesly Carter NP. The following represents my independent history and physical examination. Please see below for than the above. No significant issues overnight. Patient denies any problems this morning. She states she is tired. Currently on dialysis to keep her on schedule. No trouble with accessing her fistula. Objective Data Lab / Micro Data Result Diagrams: 02/24/22 05:51 02/24/22 05:51 Physical Exam Const alert, oriented x3, no apparent distress and well nourished Constitutional Narrative: Morbidly obese older white female lying in bed wrapped in many blankets, currently on hemodialysis, dialysis nurse at bedside, patient appears comfortable nontoxic HEENT head/scalp atraumatic and moist oral mucous membranes HEENT Narrative: Edentulous, Mallampati 3, no thrush Head and Scalp: normocephalic Resp normal respiratory effort, no retractions, no use of accessory muscles and clear to auscultation bilaterally Resp Narrative: Diminished but clear Auscultation: diminished lung sounds; Negative for crackles, rales, rhonchi or wheezes Cardio regular rate, regular rhythm, S1 normal heart sound, S2 normal heart sound, no murmurs, no rub, no gallops, no clicks and no JVD GI normal to inspection, nondistended, normoactive bowel sounds, soft to palpation and non-tender Extremity Extremity Narrative: Bilateral lower extremity edema right greater than left, lower extremities wrapped in Clyde bandages, large petechiae noted on right thigh however erythema seems to be improving, cellulitic changes seem to be improving Skin Skin Narrative: See above-wound care pictures reviewed Neuro oriented x3, moves all extremities and no focal motor deficits Sensorium / Orientation: awake, alert, oriented to person, oriented to place and oriented to time Speech: speech normal Assessment & Plan Assessment/Plan (1) Encephalopathy acute: PLAN: Plan Assessment: Staph aureus bacteremia 1 of 2 cultures Acute metabolic encephalopathy Right lower extremity cellulitis Suspected possible gram-negative pneumonia HFpEF-compensated Chronic hyponatremia Chronic anemia secondary to end-stage renal disease Chronic thrombocytopenia DM-2 ESRD on HD Seizure disorder Hypertension Morbid obesity History of stroke PAF ELENITA Chronic hypotension Plan: -Dialysis per nephrology -Mental status is back to baseline -Cultures 1 of 2 positive for staph aureus -White count remains normalized -Continue current antibiotics with ceftriaxone and vancomycin -Repeat blood cultures were clearance -Check echocardiogram -Infectious disease consultation -Right leg is likely source -Wound care following and pictures reviewed -Urine cultures only showing Tuyet albicans--> likely not UTI -Possible pneumonia--> respiratory status is improving -Repeat chest x-ray in a.m. -Continue home chronic medications -CPAP/BiPAP at at bedtime -Continue home midodrine -Continue sliding scale insulin and Accu-Cheks as ordered -Anticipate patient will need placement at discharge given findings of staph aureus bacteremia and likely need for long-term IV antibiotics Charges/Coding Visit Charges Inpatient E&M: 52250 Subs Hosp L2
--- NOTE | 2022-02-24 13:08 | ECHOCS_ITS ---
Reason For Study: staph bacteremia Procedure This was a 2D Doppler, Color Flow transthoracic echocardiogram. The study was technically difficult. Due to body habitus. Contrast injection was performed. Exam performed portable in patient room. Left Ventricle Normal LV size. D shaped septum in systole and diastole. Left ventricular systolic function is normal. The estimated ejection fraction is 60 %. Diastolic function is indeterminate. No regional wall motion abnormalities noted. Right Ventricle Severely dilated right ventricle. Moderate global right ventricular systolic dysfunction. Atria The left atrium is moderately enlarged. The right atrium is moderately enlarged. No doppler evidence for ASD. Mitral Valve There is mild mitral annular calcification. Mild focal mitral valve calcification of the anterior leaflet. Mild (1+) mitral valve insufficiency. Tricuspid Valve Poor coaptation of the tricuspid valve apparatus. Moderate (2+) tricuspid valve insufficiency. Unable to estimate RV systolic pressure due to insufficient tricuspid regurgitant envelope. Aortic Valve Trisinus/trileaflet aortic valve. Mild focal aortic valve calcification. Pulmonic Valve The pulmonic valve is not well visualized. Mild-Moderate (1-2+) pulmonic valve insufficiency. Great Vessels The aortic root is not well visualized. Pericardium/Pleural No pericardial effusion. MMode/2D Measurements & Calculations LVIDd: 4.6 cm IVSd: 0.91 cm LA dimension: 5.0 cm LVIDs: 2.8 cm LVPWd: 1.1 cm FS: 39.2 % LAV(MOD-bp): 82.6 ml LA A4 area: 24.4 cm2 RA A4 area: 23.7 cm2 LAV(MOD-bp) Indexed: 43.3 ml/m2 LAV(MOD-sp2): 79.7 ml LAV(MOD-sp4): 79.4 ml Time Measurements MV dec time: 0.23 sec Doppler Measurements & Calculations MV E max moe: 96.6 cm/sec Lat Peak E' Moe: 12.8 cm/sec Med Peak E' Moe: 8.2 cm/sec MV A max moe: 62.3 cm/sec E/E' lat: 7.5 E/E' med: 11.7 MV E/A: 1.6 MV dec slope: 432.7 cm/sec2 Ao V2 max: 143.8 cm/sec LV V1 max: 85.2 cm/sec Ao max P.3 mmHg LV V1 max P.9 mmHg PA V2 max: 96.3 cm/sec ECHO/Echo Complete W/ Contrast Interpretation Summary The study was technically difficult. Contrast injection was performed. Left ventricular systolic function is normal. The estimated ejection fraction is 60 %. D shaped septum in systole and diastole. Severely dilated right ventricle. Moderate global right ventricular systolic dysfunction. The left atrium is moderately enlarged. The right atrium is moderately enlarged. There is mild mitral annular calcification. Mild focal mitral valve calcification of the anterior leaflet. Mild (1+) mitral valve insufficiency. Poor coaptation of the tricuspid valve apparatus. Moderate (2+) tricuspid valve insufficiency. Mild focal aortic valve calcification. Mild-Moderate (1-2+) pulmonic valve insufficiency. Unable to estimate RV systolic pressure due to insufficient tricuspid regurgita nt envelope. Diastolic function is indeterminate. Comment: Transthoracic echocardiogram from 01-05-2022: Reported a negative agitat ed saline contrast study for interatrial shunt. Ordering Physician: Lesly Carter Referring Physician: Gissel Arriola Performed By: Shanelle Vazquez RDCS, RVT
--- NOTE | 2022-02-24 14:58 | RAD_ITS ---
INDICATION: Infiltrate EXAMINATION/TECHNIQUE: X-RAY - XR Chest 1 View COMPARISON: 02/23/2022. FINDINGS: Unchanged right basilar infiltrates. The cardiomediastinal silhouette is stable. Stable small right pleural effusion. The osseous structures are unchanged. RAD/Chest 1 View (Portable) IMPRESSION: No change from prior. Electronically Signed: Hakeem Holman MD at 16:56 EDT ,
--- NOTE | 2022-02-24 15:55 | CASEMGMT ---
Call from Eva pt's CM from [facility], updated on pt admission, voices understanding. Marci MALDONADO CM
[2022-02-24] MEDS: Ipratropium/Albuterol Sulfate 3 ML AMPUL.NEB INHALATION ×2 (15:57→19:44)
[2022-02-24] MEDS: Vancomycin IV 500 MG/100 ML BAG 100 MG IV (17:03)
[2022-02-24 17:40] LABS: Bedside Glucose 154 mg/dL (74-106)
[2022-02-24] MEDS: Latanoprost 0.005% 1 Bottle 1 DRP EACH EYE (21:41)
[2022-02-24] MEDS: traZODone 50 MG Tablet 25 MG PO (21:42)
[2022-02-24] MEDS: Atorvastatin Calcium 40 MG Tablet PO (21:43)
[2022-02-24] MEDS: 0.9% Saline Lock 10 ML Syringe IV (21:46)
[2022-02-24 23:20] LABS: Bedside Glucose 261 mg/dL (74-106)
[2022-02-25] VITALS (14 sets, daily range): BP systolic 107–132; BP diastolic 40–63; PULSE 65–78; RESP 14–18; TEMP 36.4–36.6; O2SAT 92–100
--- NOTE | 2022-02-25 00:58 | CPS ---
Addendum entered by Alvina Polanco 02/25/22 03:35: Pt did not have bipap on. RT misunderstood. pt had taken O2 off, but had been ok on room air earlier, but not while asleep. Original Note: Pt had bipap on for a short period then after 11:15pm or so Pt took off bipap.
[2022-02-25 05:37] LABS: Absolute Lymphocyte Count 0.49 X10^3/uL (0.83-4.51); Absolute Neutrophil Count 3.1 X10^3/uL (2.0-7.7); Basophil# 0.05 X10^3/uL; Basophil% 1.1 % (0-1); Eosinophil# 0.14 X10^3/uL; Eosinophils% 3.1 % (0-5); Hematocrit 32.1 % (37-47); Hemoglobin 10.4 g/dL (12.0-15.0); Lymphocyte # 0.49 X10^3/ul (0.83-4.51); Mean Corp Hgb Conc 32.4 g/dL (32-36); Mean Corpuscular Hgb 36.7 pg (27.0-32.0); Mean Corpuscular Volume 113.4 fL (81-99); Mean Platelet Vol. 11.6 fl (6.2-12.0); Monocyte# 0.67 X10^3/uL; NRBC Flagged by Analyzer 0 % (0-5); Neutrophil # 3.11 X10^3/uL (2.7-7.7); Neutrophil % 69.6 % (47-70); POSITIVE COUNT YES; POSITIVE DIFFERENTIAL YES; Platelet Count 82 K/mm3 (150-450); RBC Distribution Width CV 14.3 % (11.6-14.6); RBC Distribution Width SD 60.2 fl (35.1-43.9); Red Blood Count 2.83 M/mm3 (4.2-5.4); White Blood Count 4.5 K/mm3 (4.4-11.0)
[2022-02-25 05:46] LABS: Differential Indicated SCAN CRITERIA MET
[2022-02-25 06:02] LABS: ALB/GLOB Ratio 0.7 RATIO (0.9-2.4); AST(SGOT) 31 U/L (15-37); Alanine Aminotransfer ALT/SGPT 23 U/L (13-56); Albumin, Serum 2.8 g/dL (3.2-5.0); Alkaline Phosphatase 82 U/L (45-117); Anion Gap 5 (5-15); BUN 33 mg/dL (7-18); BUN/Creat Ratio 8.3 RATIO (10-20); Calcium,Total 8.5 mg/dL (8.5-10.1); Chloride 97 mmol/L (98-107); Creatinine, Serum 3.98 mg/dL (0.55-1.02); EST Glomerular Filtration Rate 12 mL/min (>60); Est Glom Filt Rate - Afr Amer 14 mL/min (>60); Estimated Creatinine Clearance 8.64 ml/min; Globulin 3.9 g/dL (2.2-4.2); Glucose 224 mg/dL (74-106); Potassium 3.7 mmol/L (3.5-5.1); Protein, Total 6.7 g/dL (6.4-8.2); Sodium Level 132 mmol/L (136-145)
[2022-02-25 06:23] LABS: Differential Comment SCANNED
[2022-02-25] MEDS: Acetaminophen 325 MG Tablet 650 MG PO (06:35)
[2022-02-25] MEDS: Insulin Lispro 100 UNIT/ML INSULN.PEN SC ×4 (06:35→22:00)
[2022-02-25 06:51] LABS: Bedside Glucose 203 mg/dL (74-106)
[2022-02-25] MEDS: Ipratropium/Albuterol Sulfate 3 ML AMPUL.NEB INHALATION ×4 (07:23→19:11)
[2022-02-25] MEDS: Aspirin E.C. 81 MG Tablet PO (08:21)
[2022-02-25] MEDS: Pantoprazole Sodium 20 MG Tablet PO (08:21)
[2022-02-25] MEDS: Menthol/Lanolin/Calamine/Znox 113 GM Tube 1 APPLIC TOPICAL ×2 (08:21→22:02)
[2022-02-25] MEDS: Calcium Acetate 667 MG Capsule PO ×3 (08:21→16:00)
[2022-02-25] MEDS: Midodrine HCl 5 MG Tablet 10 MG PO ×3 (08:21→16:00)
[2022-02-25] MEDS: Vitamin B Comp W-C Capsule 1 CAP PO (08:21)
[2022-02-25] MEDS: Insulin Glargine-YFGN 100 UNIT/ML Pen 15 UNIT SC ×2 (08:22→22:01)
[2022-02-25] MEDS: Gabapentin 100 MG Capsule 200 MG PO ×2 (08:22→22:11)
[2022-02-25] MEDS: Nystatin Powder 15gm Bottle 1 APPLIC TOPICAL ×2 (08:37→22:01)
[2022-02-25] MEDS: Lacosamide 100 MG Tablet PO ×2 (09:33→22:14)
--- NOTE | 2022-02-25 10:20 | CASEMGMT ---
Discharge Supervisor [employer] Tammy d/c bilingual executive assistant went into patient room. Tammy introduced herself and explained her role. Tammy provided pt a list of [facility] providers including quality and resource use data and consistent with the pt's preferred geographic region, medical needs, and insurance network. Patient was upset and stated she is not going to a shelter she is going home. Patient stated she has HH 3 times a week and dialysis the other 3 times and patient is alone on Monday' but, someone is always around. Patient stated she will throw the list in the trash. Tammy explained to patient that Tammy is just providing her with resources and recommendations and that is what hospital employees are here for. Patient stated I could give her the list but, patient is not looking at it. ANNIE Pace has been made aware of this. Plan: Tammy Wilson Discharge Supervisor [employer]
--- NOTE | 2022-02-25 10:34 | PN.HOSP_ITS ---
Documented by User: Lesly Carter NP, [employer] ASSISTANT-C 02/25/22 10:45 Subjective Subjective Patient seen and examined. Resting comfortably in chair. Mental status appropriate. Patient strongly refusing SNF, stating she can do IV antibiotics at home. Denies other symptoms or complaints. Objective Data Objective Data Vital Signs: Vital Signs Temp Pulse Resp BP Pulse Ox O2 Del Method O2 Flow Rate 97.6 F L 73 18 107/40 L 96 Nasal Cannula 2 02/25/22 09:15 02/25/22 09:15 02/25/22 09:15 02/25/22 09:15 02/25/22 09:15 02/25/22 09:15 02/25/22 09:15 FiO2 30 02/23/22 02:59 Oxygen Flow Rate (L/min) 2 Oxygen Delivery Method Nasal Cannula Weight: 211 lb 4.797 oz Body Mass Index (BMI) 41.2 Intake & Output: Intake and Output for Last 24 Hours 02/23/22 02/24/22 02/25/22 23:59 23:59 23:59 Intake Total 915 / 915 510 / 510 50 / 50 Output Total 3500 / 3500 2201 / 2201 Balance -2585 / -2585 -1691 / -1691 50 / 50 Lab / Micro Data Result Diagrams: 02/25/22 04:50 02/25/22 04:50 Labs: Laboratory Results - last 24 hr 02/24/22 11:46: POC Glucose 98 02/24/22 16:57: POC Glucose 154 H 02/24/22 21:38: POC Glucose 261 H 02/25/22 04:50: WBC 4.5, RBC 2.83 L, Hgb 10.4 L, Hct 32.1 L, MCV 113.4 H, MCH 36.7 H, MCHC 32.4, RDW Std Deviation 60.2 H, RDW Coeff of Kusum 14.3, Plt Count 82 L, MPV 11.6, Immature Gran % (Auto) 0.200, Neut % (Auto) 69.6, Lymph % (Auto) 11.0 L, [place] % (Auto) 15.0 H, Eos % (Auto) 3.1, Baso % (Auto) 1.1 H, Absolute Ne uts (auto) 3.1, Absolute Lymphs (auto) 0.49 L, Nucleated RBC % 0, Differential Comment SCANNED 02/25/22 04:50: Sodium 132 L, Potassium 3.7, Chloride 97 L, Carbon Dioxide 30.0, Anion Gap 5, BUN 33 H, Creatinine 3.98 H, Estim Creat Clear Calc 8.64, Est GFR (MDRD) Af Amer 14 L, Est GFR (MDRD) Non-Af 12 L, BUN/Creatinine Ratio 8.3 L, Glucose 224 H, Calcium 8.5, Total Bilirubin 0.70, AST 31, ALT 23, Alkaline Phosphatase 82, Total Protein 6.7, Albumin 2.8 L, Globulin 3.9, Albumin/Globulin Ratio 0.7 L 02/25/22 06:30: POC Glucose 203 H Micro: Microbiology 02/22/22 12:40 Blood Culture (Wb) - Right Hand Blood Culture - Preliminary Meth. resistant Staph. aureus 02/22/22 12:23 Urine, Catheterized Urine Culture - Final Tuyet albicans 02/22/22 12:30 Blood Culture (Wb) - Anticubital Right Blood Culture - Preliminary No growth in 48 hours. 02/22/22 20:10 Mucosa - Nasopharyngeal Respiratory Panel (PCR) - Final 02/22/22 12:26 Nasal Secretion SARS-CoV-2 Antigen (Rapid) - Final Radiography Diagnostic Testing: Radiology Impression Echocardiogram 02/24/22 13:08 Interpretation Summary The study was technically difficult. Contrast injection was performed. Left ventricular systolic function is normal. The estimated ejection fraction is 60 %. D shaped septum in systole and diastole. Severely dilated right ventricle. Moderate global right ventricular systolic dysfunction. The left atrium is moderately enlarged. The right atrium is moderately enlarged. There is mild mitral annular calcification. Mild focal mitral valve calcification of the anterior leaflet. Mild (1+) mitral valve insufficiency. Poor coaptation of the tricuspid valve apparatus. Moderate (2+) tricuspid valve insufficiency. Mild focal aortic valve calcification. Mild-Moderate (1-2+) pulmonic valve insufficiency. Unable to estimate RV systolic pressure due to insufficient tricuspid regurgitant envelope. Diastolic function is indeterminate. Comment: Transthoracic echocardiogram from 01-05-2022: Reported a negative agitated saline contrast study for interatrial shunt. Ordering Physician: Lesly Carter Referring Physician: Gissel Arriola Performed By: Shanelle Vazquez, RDCS, RVT Chest X-Ray 02/24/22 14:58 IMPRESSION: No change from prior. Electronically Signed: Hakeem Holman MD at 16:56 EDT , Physical Exam Const alert and oriented x3 HEENT normocephalic and moist oral mucous membranes Eyes PERRL, EOMs intact bilaterally and conjunctivae normal Neck no lymphadenopathy Resp clear to auscultation bilaterally Auscultation: diminished lung sounds Cardio regular rate, regular rhythm and no murmurs Peripheral Pulses: pulses 2+ throughout GI normal to inspection, nondistended, normoactive bowel sounds, non-tender and non-distended Extremity normal to inspection General Extremity: edema bilateral lower extremity (Clyde wraps in place) Skin no rashes or lesions noted Skin Narrative: Right lower extremity erythema improving Lesions: no lesions Rashes: no rashes Trauma: no lacerations or abrasions Neuro CN's II-XII intact bilaterally, no focal motor deficits, no sensory deficits noted and deep tendon reflexes 2+ bilaterally Psych Mood & Affect: flat affect Assessment & Plan Assessment/Plan (1) Encephalopathy acute: PLAN: Plan 1.? Acute metabolic encephalopathy secondary to right lower extremity cellulitis and suspected gram-negative pneumonia, staff aureus bacteremia-treat underlying processes.? Mental status at baseline. 2.? Right lower extremity cellulitis-continue IV Rocephin and IV vancomycin.? Wound RN consult. 3.? Staph aureus bacteremia-likely related to cellulitis.? Continue IV vancomycin.? Repeat blood cultures pending.? ID consulted. Echocardiogram without vegetation. 4. Acute UTI-ruled out. Urine culture grew low colony Tuyet. 5.? Suspected gram-negative pneumonia-obtain sputum culture.? Treat empirically with antibiotics per above.? Albuterol and DuoNeb aerosols. 6. End-stage renal disease on hemodialysis-nephrology consulted for ongoing dialysis. 7. History of CVA- continue aspirin, statin. 8. Type 2 diabetes [id number] with sliding scale insulin.? Continue home insulin regimen. 9. Anemia of chronic disease-at baseline. 10. Paroxysmal atrial fibrillation-not on rate control regimen or anticoagulation. 11. Chronic seizure disorder-on Vimpat. 12. Hypertension-stable, continue current regimen. 13. Hyperlipidemia- continue statin. 14. ELENITA-continue CPAP. 15. Obesity-encouraged diet and lifestyle modifications. DVT prophylaxis-Heparin subcu Discharge planning: Social work following. Patient strongly declining SNF. This patient was seen by HILLARY TaylorC under the supervision of Dr. Steward. Documented by User: Dr. Leslee Steward DO 02/25/22 15:05 Subjective Subjective This patient was seen in conjunction with Lesly Carter NP. The following represents my independent history and physical examination. Please see below for addendum the above. Patient is currently sitting up in a chair and feels well. She denies any specific complaints at this time other than her right leg continues to be swoll en. She does acknowledge that the redness has improved however. We did discuss the fact that she may need to go to a usp facility and she was fairly reluctant to this discussion. Objective Data Lab / Micro Data Result Diagrams: 02/25/22 04:50 02/25/22 04:50 Physical Exam Const alert, oriented x3, no apparent distress and well nourished Constitutional Narrative: Morbidly obese older white female sitting up in a chair at the bedside eating breakfast, nursing at bedside patient appears comfortable, nontoxic General Appearance: cooperative and uncooperative Orientation / Consciousness: lethargic HEENT head/scalp atraumatic and moist oral mucous membranes HEENT Narrative: Edentulous, Mallampati 3, no thrush Head and Scalp: normocephalic Resp normal respiratory effort, no retractions, no use of accessory muscles and clear to auscultation bilaterally Resp Narrative: Diminished but clear Effort and Inspection: able to speak in complete sentences and symmetric chest movement Cardio regular rate, regular rhythm, S1 normal heart sound, S2 normal heart sound, no murmurs, no rub, no gallops, no clicks and no JVD GI normal to inspection, nondistended, normoactive bowel sounds, soft to palpation and non-tender Extremity Extremity Narrative: Bilateral lower extremity edema right greater than left, lower extremities wrapped in Clyde bandages, large petechiae noted on right thigh almost resolved, erythema is markedly improved, no cyanosis or clubbing Neuro oriented x3, moves all extremities and no focal motor deficits Neuro Narrative: Marked generalized weakness Sensorium / Orientation: awake, alert, oriented to person, oriented to place and oriented to time Speech: speech normal Psych affect normal Assessment & Plan Assessment/Plan (1) Encephalopathy acute: PLAN: Plan Assessment: Staph aureus bacteremia 1 of 2 cultures Acute metabolic encephalopathy Right lower extremity cellulitis Suspected possible gram-negative pneumonia HFpEF-compensated Chronic hyponatremia Chronic anemia secondary to end-stage renal disease Chronic thrombocytopenia DM-2 ESRD on HD Seizure disorder Hypertension Morbid obesity History of stroke PAF ELENITA Chronic hypotension Plan: -Dialysis per nephrology -Mental status remains at baseline -Cultures 1 of 2 positive for staph aureus -White count remains normalized -Antibiotics narrowed to vancomycin -Repeat blood cultures for clearance pending and if remain negative okay for discharge home with 4 weeks of IV vancomycin dosed with hemodialysis per ID -Echocardiogram negative for vegetations -Right leg is likely source -Wound care following and pictures reviewed -Urine cultures only showing Tuyet albicans--> likely not UTI -Possible pneumonia--> respiratory status is improving -Chest x-ray shows improvement -Continue home chronic medications -CPAP/BiPAP at at bedtime -Continue home midodrine -Continue sliding scale insulin and Accu-Cheks as ordered -Patient adamantly refusing SNF placement at discharge for continued rehab and IV antibiotics -Highly concerned that this will result in readmission but she would like to go home with home health and this has been set up 1.? Acute metabolic encephalopathy secondary to right lower extremity cellulitis and suspected gram-negative pneumonia, staff aureus bacteremia-treat underlying processes.? Mental status at baseline. 2.? Right lower extremity cellulitis-continue IV Rocephin and IV vancomycin.? Wound RN consult. 3.? Staph aureus bacteremia-likely related to cellulitis.? Continue IV vancomycin.? Repeat blood cultures pending.? ID consulted. Echocardiogram without vegetation. 4. Acute UTI-ruled out. Urine culture grew low colony Tuyet. 5.? Suspected gram-negative pneumonia-obtain sputum culture.? Treat empirically with antibiotics per above.? Albuterol and DuoNeb aerosols. 6. End-stage renal disease on hemodialysis-nephrology consulted for ongoing dialysis. 7. History of CVA- continue aspirin, statin. 8. Type 2 diabetes [id number] with sliding scale insulin.? Continue home insulin regimen. 9. Anemia of chronic disease-at baseline. 10. Paroxysmal atrial fibrillation-not on rate control regimen or anticoagulation. 11. Chronic seizure disorder-on Vimpat. 12. Hypertension-stable, continue current regimen. 13. Hyperlipidemia- continue statin. 14. ELENITA-continue CPAP. 15. Obesity-encouraged diet and lifestyle modifications. DVT prophylaxis-Heparin subcu Discharge planning: Social work following. Patient strongly declining SNF. This patient was seen by EMILIANA Taylor under the supervision of Dr. Steward. Charges/Coding Visit Charges Inpatient E&M: 02646 Subs Hosp L2
[2022-02-25 11:30] LABS: Bedside Glucose 231 mg/dL (74-106)
--- NOTE | 2022-02-25 13:56 | CASEMGMT ---
Pt adamantly declines SNF at discharge and per Dr. Vaughan, pt can have IV antibx set up on TTS with her OP HD. Call to Antoinette at [facility] and updated on same, voices understanding. Antoinette aware that pt will likely d/c over weekend and 1st day back to OP HD will be 03/01/22, voices understanding. Vancomycin 500mg IV TTS to be given w/ dialysis order faxed to [facility] and confirmation obtained. Call to Liset at [facility] to update on IGOR, add PT/OT, voices understanding. Order placed. Pt is updated on all, voices understanding. Pt voices no further questions/concerns/needs. Green sheet left on chart for IGOR C. SStbradly MALDONADO CM
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
[2022-02-25 15:16] LABS: Pathologist Review Reviewed
[2022-02-25 16:20] LABS: Bedside Glucose 169 mg/dL (74-106)
[2022-02-25] MEDS: Latanoprost 0.005% 1 Bottle 1 DRP EACH EYE (22:00)
[2022-02-25] MEDS: traZODone 50 MG Tablet 25 MG PO (22:00)
[2022-02-25] MEDS: Atorvastatin Calcium 40 MG Tablet PO (22:02)
[2022-02-25 22:55] LABS: Bedside Glucose 218 mg/dL (74-106)
[2022-02-26 03:00] VITALS: PULSE 78
[2022-02-26 03:15] VITALS: BP 130/50; PULSE 76; RESP 18; TEMP 36.8; O2SAT 96
[2022-02-26 05:58] LABS: Absolute Lymphocyte Count 0.45 X10^3/uL (0.83-4.51); Absolute Neutrophil Count 4.4 X10^3/uL (2.0-7.7); Basophil# 0.04 X10^3/uL; Basophil% 0.7 % (0-1); Eosinophil# 0.17 X10^3/uL; Hematocrit 32.5 % (37-47); Hemoglobin 10.5 g/dL (12.0-15.0); Lymphocyte # 0.45 X10^3/ul (0.83-4.51); Lymphocyte % 7.8 % (19-41); Mean Corp Hgb Conc 32.3 g/dL (32-36); Mean Corpuscular Hgb 36.5 pg (27.0-32.0); Mean Corpuscular Volume 112.8 fL (81-99); Monocyte# 0.69 X10^3/uL; NRBC Flagged by Analyzer 0 % (0-5); Neutrophil # 4.36 X10^3/uL (2.7-7.7); POSITIVE COUNT YES; POSITIVE DIFFERENTIAL YES; Platelet Count 94 K/mm3 (150-450); RBC Distribution Width CV 14.1 % (11.6-14.6); RBC Distribution Width SD 58.7 fl (35.1-43.9); Red Blood Count 2.88 M/mm3 (4.2-5.4); White Blood Count 5.7 K/mm3 (4.4-11.0)
[2022-02-26 06:02] LABS: Differential Indicated SCAN CRITERIA MET
[2022-02-26 06:18] LABS: Anion Gap 12 (5-15); BUN 41 mg/dL (7-18); BUN/Creat Ratio 8.5 RATIO (10-20); Calcium,Total 8.7 mg/dL (8.5-10.1); Chloride 94 mmol/L (98-107); EST Glomerular Filtration Rate 9 mL/min (>60); Est Glom Filt Rate - Afr Amer 11 mL/min (>60); Estimated Creatinine Clearance 7.16 ml/min; Glucose 189 mg/dL (74-106); Potassium 4.2 mmol/L (3.5-5.1); Sodium Level 130 mmol/L (136-145)
[2022-02-26 06:31] LABS: Differential Comment SCANNED; Vancomycin, Random Level 19.6 ug/mL (0.0-15.0)
[2022-02-26 07:08] VITALS: PULSE 75
[2022-02-26] MEDS: Insulin Lispro 100 UNIT/ML INSULN.PEN SC (07:10)
--- NOTE | 2022-02-26 07:13 | PCM.RX.CS ---
Consult Type of Consult: Follow-up Suspected Infection: Skin/Soft tissue - Cellulitis Labs: Sodium 130 mmol/L (136-145) L 02/26/22 05:36 Potassium 4.2 mmol/L (3.5-5.1) 02/26/22 05:36 Chloride 94 mmol/L (98-107) L 02/26/22 05:36 Carbon Dioxide 24.0 mmol/L (21.0-32.0) 02/26/22 05:36 Anion Gap 12 (5-15) 02/26/22 05:36 BUN 41 mg/dL (7-18) H 02/26/22 05:36 Creatinine 4.80 mg/dL (0.55-1.02) H 02/26/22 05:36 Est GFR (MDRD) Af Amer 11 mL/min (>60) L 02/26/22 05:36 Est GFR (MDRD) Non-Af 9 mL/min (>60) L 02/26/22 05:36 BUN/Creatinine Ratio 8.5 RATIO (10-20) L 02/26/22 05:36 Glucose 189 mg/dL (74-106) H 02/26/22 05:36 Random Vancomycin 19.6 ug/mL (0.0-15.0) H 02/26/22 05:36 Microbiology: Microbiology 02/22/22 12:40 Blood Culture (Wb) - Right Hand Blood Culture - Preliminary Meth. resistant Staph. aureus 02/22/22 12:23 Urine, Catheterized Urine Culture - Final Tuyet albicans 02/22/22 12:30 Blood Culture (Wb) - Anticubital Right Blood Culture - Preliminary No growth in 48 hours. 02/22/22 20:10 Mucosa - Nasopharyngeal Respiratory Panel (PCR) - Final 02/22/22 12:26 Nasal Secretion SARS-CoV-2 Antigen (Rapid) - Final Goal Trough: 15-20 mcg/mL Pharmacy Plan for Drug Dosing: VANCOMYCIN LEVEL RECEIVED Current Vancomycin Dose: by trough/HD schedule Number of Doses Received: 2 Vancomycin Level: 19.6 Hours Since Last Dose: last dose given post-HD 02/24/22 Renal Function: sCr 7.16 mg/dL and CrCl 4.80 mL/min (HD planned for today) Renal Function Trend: ESRD on HD TTS Vancomycin Plan/Comments: No additional Vancomycin to be given post-HD today Pending Level: Random level 03/01/22 AM prior to next scheduled HD session Pharmacy Service will continue to monitor and adjust dosing as required. Labs to be done on [date and time ordered]: Random Vancomycin level with AM labs 03/01/22 prior to HD session
[2022-02-26 07:23] VITALS: PULSE 73; RESP 18; O2SAT 99
[2022-02-26] MEDS: Ipratropium/Albuterol Sulfate 3 ML AMPUL.NEB INHALATION (07:23)
[2022-02-26 07:31] LABS: Bedside Glucose 224 mg/dL (74-106)
[2022-02-26 08:15] VITALS: BP 128/46; PULSE 77; RESP 16; TEMP 36.9; O2SAT 94
[2022-02-26] MEDS: Midodrine HCl 5 MG Tablet 10 MG PO (08:37)
[2022-02-26] MEDS: Calcium Acetate 667 MG Capsule PO (08:37)
[2022-02-26] MEDS: Pantoprazole Sodium 20 MG Tablet PO (08:37)
[2022-02-26] MEDS: Vitamin B Comp W-C Capsule 1 CAP PO (08:37)
[2022-02-26] MEDS: Aspirin E.C. 81 MG Tablet PO (08:37)
[2022-02-26] MEDS: Gabapentin 100 MG Capsule 200 MG PO (08:37)
[2022-02-26] MEDS: Lacosamide 100 MG Tablet PO (08:39)
--- NOTE | 2022-02-26 08:41 | DCINST_ITS ---
Discharge Instructions Diet Discharge Diet: Low fat / Low cholesterol, Carb Control Diet and Renal Diet Activity Discharge Activity: Return to Normal Activity and Use Walker Dressing / Incision Call your doctor if you observe: Fever of 101 or Higher, Shortness of breath, Dizziness and Chest pain Follow Up Care Test Results: Test results from this visit will be discussed in further detail at your follow- up appointment, if applicable. Discharge Plan Admission Admit Date/Time: 02/22/22 16:01 Primary Reason for Your Visit: Right lower extremity cellulitis, staff aureus bacteremia Attending Provider: Leslee Steward Primary Care Provider: Gissel Arriola Consulting Providers: Christine Steward ; Mary Shaw ; Dinesh Vaughan Instructions Additional Instructions / Restrictions: Continue Clyde wraps bilateral lower extremities. Discharge Orders/Prescriptions Prescriptions: New vancomycin 750 mg recon soln 500 mg IV .as directed Qty: 11 0RF Rx Instructions: dx: MRSA bacteremia stop date 03/24/22 500mg IV vanc to be given with dialysis on weekly bmp, cbc and vanc trough. Continued lacosamide [Vimpat] 100 mg tablet 100 mg PO BID aspirin 81 mg tablet,delayed release (DR/EC) 81 mg PO DAILY trazodone 50 mg tablet 25 mg PO QHS gabapentin 100 mg capsule 200 mg PO BID calcium acetate(phosphat bind) 667 mg Capsule 667 mg PO TIDCM latanoprost [Xalatan] 0.005 % Drops 1 drp EACH EYE QPM lisinopril [Zestril] 10 mg Tablet 10 mg PO QHS Hold Instructions: Order Changed cholecalciferol (vitamin D3) [Vitamin D3] 125 mcg (5,000 unit) Tablet 125 mcg PO KELLOGG insulin glargine [Lantus Solostar U-100 Insulin] 100 unit/mL (3 mL) insulin pen 15 unit subcut BID Qty: 0 0RF carvedilol [Coreg] 6.25 mg Tablet 6.25 mg PO BID Rx Instructions: must administer with a meal/food B-complex with vitamin C Tablet 1 tab PO DAILY midodrine 10 mg Tablet 10 mg PO TID Rx Instructions: do not give last dose of day after 6PM or within 4 hrs of bedtime atorvastatin 40 mg tablet 40 mg PO QHS Qty: 90 3RF omeprazole 20 mg capsule,delayed release(DR/EC) 20 mg PO DAILY Qty: 90 1RF Referrals / Follow Up: Christine Steward DO [Med Staff - Consulting] - See Referral Note (Continue dialysis as scheduled) Gissel Arriola MD [Primary Care Provider] - In 1 Week Center,Wound [Non-Staff] - Within 2 Weeks (continue follow up for lower extremity ulcerations) Disposition Disposition (needs filled in before D/C Order can be placed): Home, Self Care
[2022-02-26] MEDS: Nystatin Powder 15gm Bottle 1 APPLIC TOPICAL (08:43)
[2022-02-26] MEDS: Menthol/Lanolin/Calamine/Znox 113 GM Tube 1 APPLIC TOPICAL (08:43)
--- NOTE | 2022-02-26 08:53 | CASEMGMT ---
Per Kerrie, PCU charge, plan is to d/c pt today. Pt is normally on OP HD TTS. Call to [facility] and they state pt's normal chair time is 1130. Anastasiya states they have antibx ready for pt and are aware, that plan is to d/c pt this am to get to OP chair time and Ronni is agreeable. Kerrie, PCU charge, updated on all. Pt to be discharged to OP HD. Marci MALDONADO CM
--- NOTE | 2022-02-26 08:59 | PCM.DC.SUM ---
Documented by User: Lesly Carter NP, BUSINESS OBJECTS CONSULTANT-C 02/26/22 09:15 Providers Date of Admission: 02/22/22 Date of Discharge: 02/26/22 Primary Care Physician: Dr. Gissel Arriola MD Consultations 02/22/22 16:28 Consult: Onc/Wound/noodle maker Routine Comment: 02/22/22 17:20 Consult: Nephrology Routine Consulting Provider: Christine Steward Reason for Consult: ESRD, needs dialysis EMERGENT Consult: No MD Notified: Yes Date Notified: 02/22/22 Time Notified: 17:20 Method of Notification: Text 02/24/22 13:08 Consult: Infectious Disease Routine Consulting Provider: Dinesh Vaughan Reason for Consult: staph bacteremia EMERGENT Consult: No MD Notified: Yes Date Notified: 02/24/22 Time Notified: 13:09 Method of Notification: Text Reason For Visit: CELLULITIS, CONFUSION Diagnosis Discharge Diagnosis (1) Encephalopathy acute: Status: Acute Code(s): G93.40 - Encephalopathy, unspecified Medications at Discharge Home Medications lacosamide 100 mg tablet (Vimpat) 100 mg PO BID seizures 02/22/21 aspirin 81 mg tablet,delayed release 81 mg PO DAILY HEALTH 03/01/21 gabapentin 100 mg capsule 200 mg PO BID NERVE PAIN 04/30/21 trazodone 50 mg tablet 25 mg PO QHS SLEEP 04/30/21 calcium acetate(phosphat bind) 667 mg capsule 667 mg PO TIDCM vitamin 06/18/21 cholecalciferol (vitamin D3) 125 mcg (5,000 unit) tablet (Vitamin D3) 125 mcg PO KELLOGG vitamin 08/16/21 latanoprost 0.005 % eye drops (Xalatan) 1 drp EACH EYE QPM eyes 08/16/21 lisinopril 10 mg tablet (Zestril) 10 mg PO QHS bp 08/16/21 insulin glargine 100 unit/mL (3 mL) subcutaneous pen (Lantus Solostar U-100 Insulin) 15 unit (0.15 mL) subcut BID DM #0 mL 08/17/21 atorvastatin 40 mg tablet 40 mg PO QHS #90 tabs 01/20/22 B-complex with vitamin C 1 tab PO DAILY supplement 02/10/22 carvedilol 6.25 mg tablet (Coreg) 6.25 mg PO BID heart 02/10/22 midodrine 10 mg tablet 10 mg PO TID bp 02/10/22 omeprazole 20 mg capsule,delayed release 20 mg PO DAILY GERD #90 caps 02/22/22 vancomycin 750 mg intravenous solution 500 mg IV .as directed #11 ea 02/25/22 Hospital Course Summary of Care Provided Hospital Course: Patient is a 76-year-old female admitted 02/22/2022 due to altered mental status. 1.? Acute metabolic encephalopathy secondary to right lower extremity cellulitis and suspected gram-negative pneumonia, staff aureus bacteremia-resolved with treatment of underlying processes.? Mental status at baseline. 2.? Right lower extremity cellulitis-improved. ID recommending IV vancomycin with dialysis for 4 weeks. Continue gauze over scabbed areas followed by Juan Carlos and Clyde wraps. Recommend follow-up with wound center for surveillance. 3.? Staph aureus bacteremia-secondary to cellulitis.?Repeat blood culture with no growth preliminary. Continue IV vancomycin for 4 weeks with hemodialysis per ID recommendations.? Echocardiogram without vegetation. 4. Acute UTI-ruled out.??Urine culture grew low colony Tuyet. 5.? Suspected gram-negative pneumonia-Treat empirically with antibiotics per above.? Respiratory status improved. Oxygen stable on room air. 6. End-stage renal disease on hemodialysis-continue dialysis as scheduled. 7. History of CVA- continue aspirin, statin. 8. Type 2 diabetes mellitus-Continue home insulin regimen. 9. Anemia of chronic disease-at baseline. 10. Paroxysmal atrial fibrillation-not on rate control regimen or anticoagulation. 11. Chronic seizure disorder-on Vimpat. 12. Hypertension-stable, continue current regimen. 13. Hyperlipidemia- continue statin. 14. ELENITA-continue CPAP. 15. Obesity-encouraged diet and lifestyle modifications. Physical Exam Const alert and oriented x3 HEENT normocephalic and moist oral mucous membranes Eyes PERRL, EOMs intact bilaterally and conjunctivae normal Neck no lymphadenopathy Resp clear to auscultation bilaterally Auscultation: diminished lung sounds Cardio regular rate, regular rhythm and no murmurs Peripheral Pulses: pulses 2+ throughout GI normal to inspection, nondistended, normoactive bowel sounds, non-tender and non-distended Extremity normal to inspection General Extremity: edema bilateral lower extremity (Clyde wraps in place) Skin no rashes or lesions noted Skin Narrative: Right lower extremity erythema improving Lesions: no lesions Rashes: no rashes Trauma: no lacerations or abrasions Neuro CN's II-XII intact bilaterally, no focal motor deficits, no sensory deficits noted and deep tendon reflexes 2+ bilaterally Psych Mood & Affect: flat affect Patient seen and examined prior to discharge. Physical assessment as noted above. Patient is stable for discharge with follow up recommendations as noted above. This patient was seen by EMILIANA Taylor under the supervision of Dr. Steward. Weight / BMI Weight Weight: 211 lb 4.797 oz Body Mass Index (BMI) 41.2 ABG / Lab / Microbiology Data Result Diagrams: 02/26/22 05:36 02/26/22 05:36 Laboratory: Laboratory Results - last 24 hr 02/25/22 04:50: Diff Path Review Reviewed 02/25/22 11:01: POC Glucose 231 H 02/25/22 15:57: POC Glucose 169 H 02/25/22 21:58: POC Glucose 218 H 02/26/22 05:36: Random Vancomycin 19.6 H 02/26/22 05:36: WBC 5.7, RBC 2.88 L, Hgb 10.5 L, Hct 32.5 L, MCV 112.8 H, MCH 36.5 H, MCHC 32.3, RDW Std Deviation 58.7 H, RDW Coeff of Kusum 14.1, Plt Count 94 L, MPV 11.0, Immature Gran % (Auto) 0.500, Neut % (Auto) 76.0 H, Lymph % (Auto) 7.8 L, [place] % (Auto) 12.0 H, Eos % (Auto) 3.0, Baso % (Auto) 0.7, Absolute Neuts (auto) 4.4, Absolute Lymphs (auto) 0.45 L, Nucleated RBC % 0, Differential Comment SCANNED 02/26/22 05:36: Sodium 130 L, Potassium 4.2, Chloride 94 L, Carbon Dioxide 24.0, Anion Gap 12, BUN 41 H, Creatinine 4.80 H, Estim Creat Clear Calc 7.16, Est GFR (MDRD) Af Amer 11 L, Est GFR (MDRD) Non-Af 9 L, BUN/Creatinine Ratio 8.5 L, Glucose 189 H, Calcium 8.7 02/26/22 07:09: POC Glucose 224 H Microbiology: Microbiology 02/22/22 12:40 Blood Culture (Wb) - Right Hand Blood Culture - Preliminary Meth. resistant Staph. aureus 02/22/22 12:23 Urine, Catheterized Urine Culture - Final Tuyet albicans 02/22/22 12:30 Blood Culture (Wb) - Anticubital Right Blood Culture - Preliminary No growth in 48 hours. 02/22/22 20:10 Mucosa - Nasopharyngeal Respiratory Panel (PCR) - Final 02/22/22 12:26 Nasal Secretion SARS-CoV-2 Antigen (Rapid) - Final D/C Instructions Discharge Diet: Low fat / Low cholesterol, Carb Control Diet and Renal Diet Call your doctor if you observe: Fever of 101 or Higher, Shortness of breath, Dizziness and Chest pain Meaningful Use Info Meaningful Use Diagnoses (Choose all that apply): None applicable Discharge Plan Admission Admit Date/Time: 02/22/22 16:01 Primary Reason for Your Visit: Right lower extremity cellulitis, staff aureus bacteremia Attending Provider: Leslee Steward Primary Care Provider: Gissel Arriola Consulting Providers: Christine Steward ; Mary Shaw ; Dinesh Vaughan Instructions Additional Instructions / Restrictions: Continue Clyde wraps bilateral lower extremities. Discharge Orders/Prescriptions Prescriptions: New vancomycin 750 mg recon soln 500 mg IV .as directed Qty: 11 0RF Rx Instructions: dx: MRSA bacteremia stop date 03/24/22 500mg IV vanc to be given with dialysis on -Mon weekly bmp, cbc and vanc trough. Continued lacosamide [Vimpat] 100 mg tablet 100 mg PO BID aspirin 81 mg tablet,delayed release (DR/EC) 81 mg PO DAILY trazodone 50 mg tablet 25 mg PO QHS gabapentin 100 mg capsule 200 mg PO BID calcium acetate(phosphat bind) 667 mg Capsule 667 mg PO TIDCM latanoprost [Xalatan] 0.005 % Drops 1 drp EACH EYE QPM lisinopril [Zestril] 10 mg Tablet 10 mg PO QHS Hold Instructions: Order Changed cholecalciferol (vitamin D3) [Vitamin D3] 125 mcg (5,000 unit) Tablet 125 mcg PO KELLOGG insulin glargine [Lantus Solostar U-100 Insulin] 100 unit/mL (3 mL) insulin pen 15 unit subcut BID Qty: 0 0RF carvedilol [Coreg] 6.25 mg Tablet 6.25 mg PO BID Rx Instructions: must administer with a meal/food B-complex with vitamin C Tablet 1 tab PO DAILY midodrine 10 mg Tablet 10 mg PO TID Rx Instructions: do not give last dose of day after 6PM or within 4 hrs of bedtime atorvastatin 40 mg tablet 40 mg PO QHS Qty: 90 3RF omeprazole 20 mg capsule,delayed release(DR/EC) 20 mg PO DAILY Qty: 90 1RF Referrals / Follow Up: Christine Steward DO [Med Staff - Consulting] - See Referral Note (Continue dialysis as scheduled) Gissel Arriola MD [Primary Care Provider] - In 1 Week Center,Wound [Non-Staff] - Within 2 Weeks (continue follow up for lower extremity ulcerations) Disposition Disposition (needs filled in before D/C Order can be placed): Home, Self Care Documented by User: Dr. Leslee Steward DO 02/26/22 11:45 Providers Date of Admission: 02/22/22 Reason For Visit: CELLULITIS, CONFUSION Diagnosis Discharge Diagnosis (1) Encephalopathy acute: Status: Acute Code(s): G93.40 - Encephalopathy, unspecified Medications at Discharge Home Medications lacosamide 100 mg tablet (Vimpat) 100 mg PO BID seizures 02/22/21 aspirin 81 mg tablet,delayed release 81 mg PO DAILY HEALTH 03/01/21 gabapentin 100 mg capsule 200 mg PO BID NERVE PAIN 04/30/21 trazodone 50 mg tablet 25 mg PO QHS SLEEP 04/30/21 calcium acetate(phosphat bind) 667 mg capsule 667 mg PO TIDCM vitamin 06/18/21 cholecalciferol (vitamin D3) 125 mcg (5,000 unit) tablet (Vitamin D3) 125 mcg PO KELLOGG vitamin 08/16/21 latanoprost 0.005 % eye drops (Xalatan) 1 drp EACH EYE QPM eyes 08/16/21 lisinopril 10 mg tablet (Zestril) 10 mg PO QHS bp 08/16/21 insulin glargine 100 unit/mL (3 mL) subcutaneous pen (Lantus Solostar U-100 Insulin) 15 unit (0.15 mL) subcut BID DM #0 mL 08/17/21 atorvastatin 40 mg tablet 40 mg PO QHS #90 tabs 01/20/22 B-complex with vitamin C 1 tab PO DAILY supplement 02/10/22 carvedilol 6.25 mg tablet (Coreg) 6.25 mg PO BID heart 02/10/22 midodrine 10 mg tablet 10 mg PO TID bp 02/10/22 omeprazole 20 mg capsule,delayed release 20 mg PO DAILY GERD #90 caps 02/22/22 vancomycin 750 mg intravenous solution 500 mg IV .as directed #11 ea 02/25/22 Hospital Course Procedures 2-D Echocardiogram and - (Lower extremity Dopplers) Summary of Care Provided Minutes Spent on Discharge: 38 Hospital Course: Mrs. Mitchell is a 76-year-old white female who presented to the emergency department at [facility] on 02/22/2022 with altered mental status. It was reported that the patient's ross carrier driver picked her up to take her to dialysis but noticed that she was confused and lethargic with minimal responsiveness so he brought to the emergency department rather than dialysis. Upon presentation the patient denied any fever or chills, nausea or vomiting, abdominal pain, or diarrhea, or any urinary symptoms. She does make some urine despite her dialysis. Evidently her mentation did improve when she arrived to the emergency department and was able to interact however still remain confused. Her daughter would present at that time. Her daughter mentioned that her mother had been complaining of some itchy spots on her right lower extremity that had worsening redness in the right lower extremity which had progressed up towards the thigh. Patient denied any trauma to that area. Vitals in the ED were blood pressure of 94/79 with pulse rate of 68 and respiratory rate of 20.? Temperature was 98.4 Fahrenheit and she was saturating at 98% on 3 L of oxygen.? CBC showed WBC of 8.8 with hemoglobin of 10.3 and platelets of 52.? Chemistry showed sodium of 132 with potassium of 5.1 and creatinine of 5.52.? Bicarb was 29.? Urinalysis showed cloudy urine with 50-100 WBC seen and no bacteria.? CT of the brain showed chronic involutional changes with partial opacification of the right sphenoid sinus.? Chest x-ray showed bibasilar atelectasis and infiltrates worse on the right side with blunting of the right costophrenic angle and mild vascular congestion.? Hip and pelvis x-ray showed no degenerative changes and no acute fracture seen.? Duplex of the right lower extremity was done in the emergency department and was negative for VTE. Blood and urine cultures were obtained and she was admitted to the PCU on broad-spectrum antibiotics for continued care. Nephrology followed the patient during her hospital course for continued dialysis. She did have a fever of 104 after arrival and required 2 L of nasal cannula her chest x-ray was concerning for possible pneumonia and her antibiotics were transitioned to vancomycin and Rocephin at that time. Her urine culture was positive for Tuyet albicans and she had 1 of 2 blood cultures positive for methicillin-resistant staph aureus. Given her left wrist bacteremia an echocardiogram was obtained and showed no valvular vegetations. Her ejection fraction was 60% and she was noted to have a severely dilated RV with moderate right global ventricular dysfunction and moderate biatrial enlargement none of which are new. Repeat blood cultures were obtained and negative at 48 hours on 02/26/2022. ID was consulted when her blood cultures resulted as positive for staph aureus and she was maintained on vancomycin and ceftriaxone was discontinued. The nidus for infection was likely a right lower extremity. Her mental status improved to baseline within 12 to 16 hours of her admission. She was able to be discharged home in stable condition on 02/26/2022. She was evaluated by physical and Occupational Therapy during her hospital course and they highly recommended placement for ongoing wound care, antibiotics, and physical and Occupational Therapy however she adamantly refused and demanded on going home. She was set up with home health care prior to discharge. Antibiotics will be dosed 3 times a week with dialysis per infectious disease recommendations. Stop date on antibiotics is 03/24/2022. She was taken to her scheduled dialysis appointment today after discharge. Discharge diagnoses: Staph aureus bacteremia Acute metabolic encephalopathy-resolved Right lower extremity cellulitis-improving HFpEF-compensated Chronic hyponatremia Chronic anemia secondary to end-stage renal disease Chronic thrombocytopenia DM-2 ESRD on HD Seizure disorder Hypertension Morbid obesity History of stroke PAF ELENITA Chronic hypotension Physical Exam Const alert, oriented x3, no apparent distress and well nourished Constitutional Narrative: Morbidly obese older white female sitting up in bed, watching television, appears comfortable, nontoxic General Appearance: cooperative, comfortable, well kempt and well developed Orientation / Consciousness: awake Exam Limitations: no limitations Nutritional Appearance: morbidly obese HEENT normocephalic, head/scalp atraumatic, hearing grossly normal bilaterally and moist oral mucous membranes HEENT Narrative: Mallampati 3, no thrush Eyes PERRL, EOMs intact bilaterally and conjunctivae normal Eyes Narrative: No scleral icterus Neck no lymphadenopathy, supple and no JVD Neck Narrative: Neck is short and thick, trachea midline, no thyroid enlargement Resp normal respiratory effort, no retractions, no use of accessory muscles and clear to auscultation bilaterally Resp Narrative: Diminished but clear Effort and Inspection: able to speak in complete sentences and symmetric chest movement Auscultation: diminished lung sounds; Negative for crackles, rales, rhonchi or wheezes Cardio regular rate, regular rhythm, S1 normal heart sound, S2 normal heart sound, no murmurs, no rub, no gallops, no clicks and no JVD Peripheral Pulses: pulses 2+ throughout GI normal to inspection, nondistended, normoactive bowel sounds, soft to palpation, non-tender, non-distended and hepatosplenomegaly Extremity normal to inspection Extremity Narrative: Bilateral lower extremity edema right greater than left, lower extremities wrapped in Clyde bandages, erythema and punctate lesions are resolved General Extremity: edema bilateral lower extremity (Clyde wraps in place) Skin skin turgor normal, no jaundice and no mottling Neuro oriented x3, CN's II-XII intact bilaterally, moves all extremities, no focal motor deficits and no sensory deficits noted Neuro Narrative: Marked generalized weakness Sensorium / Orientation: awake, alert, oriented to person, oriented to place and oriented to time Speech: speech normal Psych affect normal Psych Narrative: Appropriately interactive ABG / Lab / Microbiology Data Result Diagrams: 02/26/22 05:36 02/26/22 05:36 Discharge Plan Admission Admit Date/Time: 02/22/22 16:01 Primary Reason for Your Visit: Right lower extremity cellulitis, staff aureus bacteremia Attending Provider: Leslee Steward Primary Care Provider: Gissel Arriola Consulting Providers: Christine Steward ; Mary Shaw ; Alexus,Dinesh Instructions Additional Instructions / Restrictions: Continue Clyde wraps bilateral lower extremities. Discharge Orders/Prescriptions Prescriptions: New vancomycin 750 mg recon soln 500 mg IV .as directed Qty: 11 0RF Rx Instructions: dx: MRSA bacteremia stop date 03/24/22 500mg IV vanc to be given with dialysis on -Mon weekly bmp, cbc and vanc trough. Continued lacosamide [Vimpat] 100 mg tablet 100 mg PO BID aspirin 81 mg tablet,delayed release (DR/EC) 81 mg PO DAILY trazodone 50 mg tablet 25 mg PO QHS gabapentin 100 mg capsule 200 mg PO BID calcium acetate(phosphat bind) 667 mg Capsule 667 mg PO TIDCM latanoprost [Xalatan] 0.005 % Drops 1 drp EACH EYE QPM lisinopril [Zestril] 10 mg Tablet 10 mg PO QHS Hold Instructions: Order Changed cholecalciferol (vitamin D3) [Vitamin D3] 125 mcg (5,000 unit) Tablet 125 mcg PO KELLOGG insulin glargine [Lantus Solostar U-100 Insulin] 100 unit/mL (3 mL) insulin pen 15 unit subcut BID Qty: 0 0RF carvedilol [Coreg] 6.25 mg Tablet 6.25 mg PO BID Rx Instructions: must administer with a meal/food B-complex with vitamin C Tablet 1 tab PO DAILY midodrine 10 mg Tablet 10 mg PO TID Rx Instructions: do not give last dose of day after 6PM or within 4 hrs of bedtime atorvastatin 40 mg tablet 40 mg PO QHS Qty: 90 3RF omeprazole 20 mg capsule,delayed release(DR/EC) 20 mg PO DAILY Qty: 90 1RF Referrals / Follow Up: Christine Steward DO [Med Staff - Consulting] - See Referral Note (Continue dialysis as scheduled) Gissel Arriola MD [Primary Care Provider] - In 1 Week Center,Wound [Non-Staff] - Within 2 Weeks (continue follow up for lower extremity ulcerations) Disposition Disposition (needs filled in before D/C Order can be placed): Home, Self Care Charges/Coding Visit Charges Inpatient E&M: 11923 Disch Hosp
--- NOTE | 2022-02-26 09:38 | NURSING ---
This RN spoke with patients daughter at this time, daughter states she is okay with patient taking a cab from hospital to dialysis center and daughter is aware she will either have to pick patient up at dialysis center or have a cab get her after she's done running.
--- NOTE | 2022-02-26 09:45 | DIALYSIS ---
While setting up HD machine Dr. Mouna Steward arrived stating patient is being discharged today and will be getting her HD tx today at [facility] at 11:[address] Christine Steward notified.
== END 2022-02-26 09:41 | disposition home or self-care (01) | DRG 177 ==
LOC: ED 15:21 → MS3 16:14 → PCU 02-23 06:58
PROVIDERS: Family Medicine; Internal Medicine Nephrology; Nurse Practitioner Family; Admitting Provider Student in an Organized Health Care Education/Training Program; Emergency Provider Emergency Medicine; PCP Internal Medicine; Visit Provider Internal Medicine
DX: J15.6 Pneumonia due to other Gram-negative bacteria (principal); G93.41 Metabolic encephalopathy; N18.6 End stage renal disease; R78.81 Bacteremia; I13.2 Hypertensive heart and chronic kidney disease with heart failure and with stage 5 chronic kidney disease, or end stage renal disease; E87.1 Hypo-osmolality and hyponatremia; I50.32 Chronic diastolic (congestive) heart failure; J44.0 Chronic obstructive pulmonary disease with (acute) lower respiratory infection; Z68.41 Body mass index [BMI] 40.0-44.9, adult; L03.115 Cellulitis of right lower limb; D69.6 Thrombocytopenia, unspecified; D63.1 Anemia in chronic kidney disease; I27.21 Secondary pulmonary arterial hypertension; E11.22 Type 2 diabetes mellitus with diabetic chronic kidney disease; E11.42 Type 2 diabetes mellitus with diabetic polyneuropathy; G40.909 Epilepsy, unspecified, not intractable, without status epilepticus; Z79.4 Long term (current) use of insulin; F31.9 Bipolar disorder, unspecified; E66.01 Morbid (severe) obesity due to excess calories; Z99.2 Dependence on renal dialysis; I48.0 Paroxysmal atrial fibrillation; F44.81 Dissociative identity disorder; M06.9 Rheumatoid arthritis, unspecified; E78.5 Hyperlipidemia, unspecified; G47.33 Obstructive sleep apnea (adult) (pediatric); I95.89 Other hypotension; I25.2 Old myocardial infarction; B95.62 Methicillin resistant Staphylococcus aureus infection as the cause of diseases classified elsewhere; B37.2 Candidiasis of skin and nail; F41.1 Generalized anxiety disorder; Z79.82 Long term (current) use of aspirin; Z79.02 Long term (current) use of antithrombotics/antiplatelets; Z79.899 Other long term (current) drug therapy; Z86.16 Personal history of COVID-19; Z87.891 Personal history of nicotine dependence; Z86.73 Personal history of transient ischemic attack (TIA), and cerebral infarction without residual deficits
CPT/HCPCS: 36415; 36600; 70450; 71045; 71046; 73502; 80048; 80053; 80076; 80202; 81001; 82140; 82803; 82962; 83605; 85025; 87040; 87070; 87077; 87086; 87088; 87186; 87205; 87633; 87811; 90937; 93005; 93306; 93970; 94002; 94003; 94640; 94660; 97110; 97162; 97166; 97530; 97535; 99285; J7030; J7040; J7050; Q9957; A4216; C8929; G0257; J0696; Q5106

== ENCOUNTER → 2022-03-16 | Outpatient (CLI) | payer MEDICARE, MEDICAID, SELFPAY ==
--- NOTE | 2022-03-16 15:21 | RAD_ITS ---
zSTUDY: XR Hand Min 3 Views REASON FOR EXAM: Female, 76 years old. Left hand pain -- HAS VL FIRST TECHNIQUE: XR Hand Min 3 Views LEFT COMPARISON: None. FINDINGS: Normal radiocarpal articulation. Normal distal radioulnar joint. Normal visualized carpal bones. Normal carpal articulations There is degenerative arthrosis of the carpometacarpal (CMC) articulation of the thumb. Normal second through fifth carpometacarpal joints. Normal metacarpi. Normal metacarpophalangeal joint of the thumb. Normal interphalangeal joint of the thumb. Normal proximal and distal phalanges of the thumb. Normal metacarpophalangeal joints of the second through fifth fingers. Normal proximal and distal interphalangeal joints of the second through fifth fingers. Normal phalanges of the second through fifth fingers. The soft tissue structures are unremarkable. RAD/Hand Min 3 Views IMPRESSION: There is degenerative arthrosis of the carpometacarpal (CMC) articulation of the thumb. Electronically Signed: Peter Carrera MD at 16:14 EDT Reading Location ID and State: [facility] / [place] , Service support ,
--- NOTE | 2022-03-16 15:21 | VDLE_ITS ---
Reason For Study: RLE swelling RIGHT CFV is compressible, spontaneous, competent and demonstrates pulsatile venous flow. FV is compressible, spontaneous, competent and demonstrates pulsatile venous flow. POP V is compressible, spontaneous, competent and demonstrates pulsatile venous flow. T/P Trunk is compressible. Procedure This is a venous duplex using B-mode, color flow and spectral Doppler. Exam performed in department. The study was technically limited. The study was technically difficult. Limited views were obtained. PT REFUSED IMAGING BELOW THE KNEE. PT HAD DIFFICULTY WITH PROBE PRESSURE. A preliminary report was called and/or faxed to Dr. Arriola @ [phone] @ 3:50pm. VL/Venous Duplex US, Unilateral Interpretation Summary Deep veins of the right lower extremity are patent and compressible segmentally . There is no evidence of right lower extremity deep vein thrombosis. Valvular competence shanda ears intact within the proximal deep venous system on the right . The right posterior tibial vein, peroneal vein, and great saphenous vein were not imaged. Pulsatile flow is noted in the right lowe r extremity deep venous system, which may be indicative of elevated central venous pressure (i.e . congestive heart failure, pulmonary hypertension, etc.). Clinical correlation is advised. Ordering Physician: Gissel Arriola Referring Physician: Gissel Arriola Performed By: Shanelle Vazquez, CLARISSA, RVT
--- NOTE | 2022-03-16 15:21 | RAD_ITS ---
EXAM: XR LEFT HUMERUS, 2 OR MORE VIEWS CLINICAL INDICATION: Left arm pain -- HAS VL FIRST TECHNIQUE: Frontal and lateral views of the left humerus. This report was created using [employer] report generation technology. COMPARISON: None. FINDINGS: BONES/JOINTS: Unremarkable. No acute fracture. No subluxation. Normal alignment. Preservation of the joint space. No sclerotic or destructive changes observed. SOFT TISSUES: Unremarkable. No soft tissue swelling or gas. No radiopaque foreign body. RAD/Humerus min 2 Views IMPRESSION: Negative left humerus x-rays. Electronically Signed: Peter Carrera MD at 16:12 EDT ,
--- NOTE | 2022-03-16 15:50 | RAD_ITS ---
STUDY: XR Knee 3 Views 03/16/2022 4:14 PM REASON FOR EXAM: Female, 76 years old. Right knee pain -- HAS VL FIRST TECHNIQUE: XR Knee 3 Views RIGHT COMPARISON: None FINDINGS: Normal visualized distal femur. Normal visualized proximal tibia and fibula. Normal proximal tibiofibular articulation. Soft tissue swelling in the area superior to the patella. There is moderate degenerative arthrosis of the medial femorotibial compartment with moderate joint space narrowing. There is calcification in the joint space which may signify calcium pyrophosphate deposition disease. There is mild degenerative arthrosis of the lateral femorotibial compartment. There is mild degenerative arthrosis of the patellofemoral articulation. There are atherosclerotic calcifications. RAD/Knee 3 Views IMPRESSION: Degenerative arthrosis. Soft tissue swelling in the area superior to the patella. Electronically Signed: Peter Carrera MD at 16:15 EDT ,
== END | disposition home or self-care (01) ==
LOC: CVS 15:19
PROVIDERS: PCP Internal Medicine; Referring Provider Internal Medicine; Visit Provider Internal Medicine
DX: M25.561 Pain in right knee (principal); M79.642 Pain in left hand; M79.602 Pain in left arm; M79.89 Other specified soft tissue disorders
CPT/HCPCS: 73060; 73130; 73562; 93971

== ENCOUNTER → 2022-04-13 | Outpatient (CLI) | payer MEDICARE, MEDICAID, SELFPAY ==
--- NOTE | 2022-04-13 10:20 | RAD_ITS ---
STUDY: X-RAY CHEST REASON FOR EXAM: Female, 76 years old. Left shoulder pain TECHNIQUE: XR Chest 2 Views COMPARISON: 8.. FINDINGS: There is atherosclerotic calcification of the aortic arch with tortuosity. There are diffuse degenerative changes of the visualized thoracic spine. There is degenerative osteoarthritis of the bilateral shoulders. There are bilateral pleural effusions. There are bilateral infiltrates. Normal size heart. Normal mediastinum and elva. Normal visualized pulmonary arteries. There is no demonstrated abnormality of the visualized soft tissue structures of the upper abdomen. RAD/Chest PA and Lateral IMPRESSION: There are bilateral pleural effusions. There are bilateral infiltrates. Electronically Signed: Peter Carrera MD at 16:55 EDT ,
--- NOTE | 2022-04-13 10:20 | RAD_ITS ---
STUDY: XR Shoulder Min 2 Views REASON FOR EXAM: Female, 76 years old. left shoulder pain TECHNIQUE: XR Shoulder Min 2 Views LEFT COMPARISON: None. FINDINGS: Normal glenohumeral articulation. Normal acromioclavicular joint. Normal acromion. Metal clips along the left proximal forearm. Normal humeral head and visualized proximal humerus. The soft tissue structures are unremarkable. Normal visualized pulmonary apex. RAD/Shoulder min 2 Views IMPRESSION: There are no acute findings of the shoulder. Electronically Signed: Peter Carrera MD at 17:08 EDT Reading Location ID and State: [facility] / [place] , Service support ,
[2022-04-13 13:13] LABS: Absolute Lymphocyte Count 0.61 X10^3/uL (0.83-4.51); Absolute Neutrophil Count 2.7 X10^3/uL (2.0-7.7); Basophil# 0.04 X10^3/uL; Eosinophil# 0.08 X10^3/uL; Hematocrit 31.1 % (37-47); Hemoglobin 9.5 g/dL (12.0-15.0); Lymphocyte # 0.61 X10^3/ul (0.83-4.51); Lymphocyte % 15.4 % (19-41); Mean Corp Hgb Conc 30.5 g/dL (32-36); Mean Corpuscular Volume 117.8 fL (81-99); Mean Platelet Vol. 11.2 fl (6.2-12.0); Monocyte# 0.51 X10^3/uL; Monocyte% 12.8 % (0-10); NRBC Flagged by Analyzer 0 % (0-5); Neutrophil # 2.72 X10^3/uL (2.7-7.7); Neutrophil % 68.5 % (47-70); Platelet Count 107 K/mm3 (150-450); RBC Distribution Width CV 15.2 % (11.6-14.6); RBC Distribution Width SD 64.8 fl (35.1-43.9); Red Blood Count 2.64 M/mm3 (4.2-5.4)
[2022-04-13 13:44] LABS: ALB/GLOB Ratio 0.7 RATIO (0.9-2.4); AST(SGOT) 27 U/L (15-37); Alanine Aminotransfer ALT/SGPT 25 U/L (13-56); Albumin, Serum 3.2 g/dL (3.2-5.0); Alkaline Phosphatase 104 U/L (45-117); Anion Gap 6 (5-15); BUN 27 mg/dL (7-18); BUN/Creat Ratio 7.6 RATIO (10-20); Calcium,Total 9.1 mg/dL (8.5-10.1); Chloride 99 mmol/L (98-107); Creatinine, Serum 3.57 mg/dL (0.55-1.02); EST Glomerular Filtration Rate 13 mL/min (>60); Est Glom Filt Rate - Afr Amer 16 mL/min (>60); Globulin 4.4 g/dL (2.2-4.2); Glucose 125 mg/dL (74-106); Potassium 4.7 mmol/L (3.5-5.1); Protein, Total 7.6 g/dL (6.4-8.2); Sodium Level 139 mmol/L (136-145)
[2022-04-13 13:59] LABS: Vitamin D,25 Hydroxy 96.7 ng/mL
== END | disposition home or self-care (01) ==
LOC: RAD 10:12
PROVIDERS: PCP Internal Medicine; Referring Provider Internal Medicine; Visit Provider Internal Medicine
DX: M19.011 Primary osteoarthritis, right shoulder (principal); J44.9 Chronic obstructive pulmonary disease, unspecified; F31.9 Bipolar disorder, unspecified; N18.6 End stage renal disease; E66.01 Morbid (severe) obesity due to excess calories; Z68.41 Body mass index [BMI] 40.0-44.9, adult; M25.512 Pain in left shoulder; Z91.81 History of falling; Z86.79 Personal history of other diseases of the circulatory system
CPT/HCPCS: 36415; 71046; 73030; 80053; 82306; 85025

== ENCOUNTER 2022-04-14 16:32 | Outpatient (RCR) | payer MEDICARE, MEDICAID, SELFPAY | END 2022-04-14 16:32 | disposition home or self-care (01) | LOC: PT 16:32 | PROVIDERS: PCP Internal Medicine; Visit Provider Internal Medicine | DX: S46.012A Strain of muscle(s) and tendon(s) of the rotator cuff of left shoulder, initial encounter (principal); M25.512 Pain in left shoulder; Z91.81 History of falling ==

== ENCOUNTER 2022-04-18 09:37 | Outpatient (RCR) | payer MEDICARE, MEDICAID, SELFPAY ==
--- NOTE | 2022-04-18 10:55 | HP.PTEVAL_ITS ---
Patient's Visit Information JAYDA WYATT is a 76 year old F referred to Physical Therapy by Dr. Gissel Arriola MD with a diagnosis of COPD, morbid obesity, BMI, cerebral infarct. Date of Evaluation: 04/18/22 Physical Therapist: CHRISTY Ware - Visit Plan Plan: Pt is doing Home PT and will call in if she wants to start PT here in the clinic. Pt definitely struggles with sit to stand transfers and it causes increase pain. Feel pt would benefit from Lift chair and PT (pt says she is doing home PT). Plan if she comes back: 2X/ week for 6 weeks for strengthening of the LE, sit to stand transfers, endurance exercises with HEP Goal would need to be set as well. - Subjective Pt has to stop twice at home in the hallways of her apartment because the hallways are so long. She feels that she has to stop cause her legs and her hips hurt so bad. Sometimes she will get muscle spasms in her calves and then she is done for. She also gets SOB. Pt feels that she needs a lift chair cause her rollator is the only thing she is able to get out of without help. This started after she had COVID last January. She had PT at the house twice. Pt is currently borrowing her friends lift chair to sleep in cause she can not get in and out of her bed and she can not get in and out of a regular chair at home. She is going to get home PT later today but not sure why they are coming. She takes the hospital van to get here. She can not get in and out of a car cause she can not get her feet into the car or the van. She can not get her legs up onto the bed. Pt has a high rise toilet seat with hand rails - Pain R hip pain Pain Intensity (Out of 10): 6 - Objective Gait: uses a rollator to walk back to the treatment room and needed to rest X 5 time in standing to rest her legs in order to get back to the treatment room. She takes small steps using a rollator. She moves her feet very slowly to turn 180 degrees hardly picking up feet. Sit to stand from higher seat on rollator: needs to use her arms on the rollator to get herself to standing. Took her several attempts to get out of the chair and slowly arya to standing. Groans in pain to stand up. sit to stand from chair: needed min A and pt struggled to stand up and once she did she was in a lot of pain from her back down to her toes and needed to sit down immed to her tall rollator. LE MMT: R hip flex 3.5# and L hip flex 4.5# (pt can barely lift feet off the ground). R knee ext 4.9# and L knee ext 4.7# (pt can barely lift feet off the ground). R knee flex 4.4# and L knee flex 4.5# (pt is barely able to lift feet off the ground). - Balance/Special Test Scores Lower Extremity Functional Score: 27 - Anticipated Interventions Thank you for the opportunity to evaluate your patient. For Medicare and Medicare HMO plans, please review the plan of care and approve it. It will need to be FAXED BACK to us at [phone] for Medicare purposes. For Medicare only, by signing this I certify the plan of care. Please let me know if there are questions or concerns regarding this plan of care. Physician Signature: Date:
== END 2022-04-18 19:00 | disposition home or self-care (01) ==
LOC: PT 09:37
PROVIDERS: PCP Internal Medicine; Referring Provider Internal Medicine; Visit Provider Internal Medicine
DX: N18.6 End stage renal disease (principal); J44.9 Chronic obstructive pulmonary disease, unspecified; I83.009 Varicose veins of unspecified lower extremity with ulcer of unspecified site; L97.909 Non-pressure chronic ulcer of unspecified part of unspecified lower leg with unspecified severity; E66.01 Morbid (severe) obesity due to excess calories; Z68.41 Body mass index [BMI] 40.0-44.9, adult; Z86.73 Personal history of transient ischemic attack (TIA), and cerebral infarction without residual deficits
CPT/HCPCS: 97162

== ENCOUNTER → 2022-04-22 | Outpatient (CLI) | payer MEDICARE, MEDICAID, SELFPAY ==
--- NOTE | 2022-04-22 09:15 | BI_ITS ---
STUDY: DIAGNOSTIC BILATERAL MAMMOGRAM REASON FOR EXAM: Female, 76 years old. Left breast pain, swelling RADIATION DOSAGE (If Supplied By Facility): CTDIvol = ( ) mGy, DLP = ( ) mGycm. Individualized dose optimization techniques were used for this CT.? TECHNIQUE: CC and MLO views of each breast performed along with 3-D tomosynthesis COMPARISON: There are outside studies not available for comparison, addendum will be performed if/when they become available FINDINGS: Right breast shows fibroglandular tissue is scattered benign appearing calcifications. There is no evidence of discrete lesion, architectural distortion, or suspicious clustering of calcifications. The left breast however shows skin thickening, and is heterogeneously dense. The glass beveller notes that the left breast is also painful to the touch and show some redness. I suspect this likely represents a diffuse inflammatory process of the left breast. Antibiotic therapy and short-term follow-up is recommended for follow-up. However, if the left breast does not respond to the antibiotic therapy and is unchanged in 3-4 weeks, biopsy would be recommended to exclude inflammatory carcinoma. BI/DIAG MAMM W/CAD, BILAT IMPRESSION: Left breast shows diffuse inflammatory changes. Short-term follow-up, within 3-4 weeks recommended after antibiotic therapy. However, if the breast does not respond to antibiotic therapy, biopsy would be recommended to exclude inflammatory carcinoma. BIRADS Category 3 Electronically Signed: Pedro Werner MD at 11:47 EDT ,
== END | disposition home or self-care (01) ==
LOC: OPBI 09:15
PROVIDERS: PCP Internal Medicine; Referring Provider Internal Medicine; Visit Provider Internal Medicine
DX: N64.4 Mastodynia (principal)
CPT/HCPCS: 77062; 77066; G0279

== ENCOUNTER → 2022-05-04 | Outpatient (CLI) | payer MEDICARE, MEDICAID, SELFPAY ==
--- NOTE | 2022-05-04 13:30 | RAD_ITS ---
STUDY: X-RAY - PELVIS AND BILATERAL HIPS REASON FOR EXAM: Female, 76 years old. BL hip pain, R and gt;L. TECHNIQUE: AP view of the pelvis.? 2 views of the right hip, and 2 views of the left hip were obtained. COMPARISON: 02/22/2022 FINDINGS: There is a non-specific bowel gas pattern. Normal visualized soft tissue structures. Surgical clips overlie the pelvis. Normal bilateral iliac wings, sacroiliac joints and visualized sacrum. Normal bilateral superior and inferior pubic rami. Normal pubic symphysis. Normal bilateral ischial tuberosities. There are osteoarthritic changes of the right femoral head with marginal osteophyte formation. There is osteoarthritic spur formation of the right acetabular rim. There is moderate articular joint space narrowing of the right hip. There are osteoarthritic changes of the left femoral head with marginal osteophyte formation. There is osteoarthritic spur formation of the left acetabular rim. There is moderate articular joint space narrowing of the left hip. RAD/Hips B/L min 2 views w/ Pelvis IMPRESSION: Bilateral hip osteoarthrosis. Electronically Signed: Chuck Uribe (Brooks), at 15:36 EDT ,
--- NOTE | 2022-05-04 14:45 | LES_PTH ---
PATIENT: JAYDA WYATT DECEMBER LOC: [facility] U#:[id number] AGE/SX: 76/F ROOM: RE05/04/[address]: Dr. Gissel Arriola MD : 1945 BED: DIS: 05/04/2022 SPEC #: [id number] RECD: 05/05/22 08:52 STATUS: ARNALDO CHANEY #: [id number] CLIFFORD: 05/04/22 14:[address]: Gissel Arriola DEPT: SURGICAL PATHOLOGY RECD BY: Orquidea Tobar Tissues: Skin of breast, NOS Procedures: Surgery Specimen Level IV HEADER OPERATION: Left breast punch biopsy PRE-OP DIAGNOSIS: Left breast swelling and inflammation TISSUE SUBMITTED: Left breast skin biopsy MICROSCOPIC DIAGNOSIS Left breast skin and soft tissue, punch biopsy: Minimal chronic inflammation of superficial and deep dermis. No evidence of malignancy. AM:irvin 05/06/2022 MICROSCOPIC DESCRIPTION Slides are reviewed. GROSS DESCRIPTION Received in fixative is one container labeled with the patient's name and designated left breast punch biopsy. The specimen consists of one elongated fragment of bradshaw tissue measuring 1 cm in length and 0.1 cm in average diameter. The specimen is totally submitted in one cassette. / AM:irvin 05/05/2022 TC:3 CPT: 24556
== END | disposition home or self-care (01) ==
PROVIDERS: PCP Internal Medicine; Referring Provider Internal Medicine; Visit Provider Internal Medicine
DX: M25.551 Pain in right hip (principal); M25.552 Pain in left hip; G89.29 Other chronic pain; N63.20 Unspecified lump in the left breast, unspecified quadrant
CPT/HCPCS: 73521; 88305

== ENCOUNTER → 2022-05-13 | Outpatient (CLI) | payer MEDICARE, MEDICAID, SELFPAY ==
--- NOTE | 2022-05-13 12:37 | CT_ITS ---
STUDY: CT CHEST WITH CONTRAST REASON FOR EXAM: Female, 76 years old. r/o inflammatory breast cancer RADIATION DOSAGE (If Supplied By Facility): CTDIvol = ( 21.15 ) mGy, DLP = ( 577.65 ) mGycm TECHNIQUE: Transaxial imaging was performed following intravenous administration of IV 75mL Isovue-300. Multiplanar coronal and sagittal images were reformatted. Individualized dose optimization techniques were used for this CT. COMPARISON: Comparison is made with prior study dated 01/20/2021. FINDINGS: CHEST There is evidence of enlargement of the left axillary lymph nodes. The largest node measures 1.7 cm. Slightly enlarged right axillary lymph nodes. Diffuse increased markings in the left breast. There is evidence of a significant thickening of the left breast on the limited views. Small right pleural effusion with basilar atelectasis on the right side. Minimal increased markings in the left lower lobe suggestive of scarring. There are calcifications of the coronary arteries. Normal mediastinum. Calcified right hilar lymph nodes. Normal unenhanced pulmonary arteries. There is atherosclerotic calcification of the aortic arch with tortuosity and elongation of the aortic arch and descending thoracic aorta. There are multi-level degenerative changes of the thoracic spine. There is no demonstrated abnormality of the visualized upper abdomen. CT/Chest WITH Contrast IMPRESSION: Diffuse increased markings in the left breast with skin thickening suggestive of possible inflammatory breast cancer. Enlargement of the axillary lymph nodes bilaterally more prominent on the left side. Small right pleural effusion with right basilar atelectasis. Electronically Signed: Baljeet Chen MD at 15:25 EST ,
== END | disposition home or self-care (01) ==
LOC: CT 12:36
PROVIDERS: PCP Internal Medicine; Referring Provider Surgery; Visit Provider Surgery
DX: N61.0 Mastitis without abscess (principal)
CPT/HCPCS: 71260; Q9967

== ENCOUNTER 2022-06-24 16:21 | Inpatient (IN) | payer MEDICARE, MEDICAID, SELFPAY ==
[2022-06-24] VITALS (14 sets, daily range): BP systolic 68–99; BP diastolic 30–67; PULSE 73–100; RESP 14–23; TEMP 36.5–39.3; O2SAT 90–100; BMI 42.2; BMI 40.4
--- NOTE | 2022-06-24 16:44 | CT_ITS ---
STUDY: CT Abdomen And Pelvis W/O Contrast Injection 06/24/2022 6:41 PM REASON FOR EXAM: Female, 76 years old. PAIN WITH FEVER X 1 DAY abdominal pain TECHNIQUE: Transaxial images were obtained without oral contrast, and without intravenous contrast. Individualized dose optimization techniques were used for this CT. COMPARISON: 02.10.22. FINDINGS: There are atherosclerotic calcifications of visualized coronary arteries. There is bilateral pneumonia. There are bilateral pleural effusions. Unremarkable liver. There are surgical clips in the gallbladder fossa consistent with a prior cholecystectomy. Unremarkable spleen. Unremarkable pancreas. Unremarkable bilateral adrenal glands. No acute findings of the right kidney. No acute findings of the left kidney. Unremarkable visualized stomach. Unremarkable small intestine. Unremarkable colon. There is non-visualization of the appendix. There are no acute findings of the abdominal aorta. Unremarkable inferior vena cava. Subcentimeter mesenteric lymph nodes. Unremarkable urinary bladder. There is absence of the uterus consistent with a prior hysterectomy. Soft tissue edema. There is an umbilical hernia containing fat. There are diffuse degenerative changes of the visualized lumbar spine. There is a Grade 1 anterolisthesis of L5 on S1. CT/Abdomen/Pelvis without Cont IMPRESSION: (NOT LISTED IN ORDER OF SIGNIFICANCE) Soft tissue edema. There are bilateral pleural effusions. There is bilateral pneumonia. Other findings as above. Electronically Signed: Peter Carrera MD at 18:45 EST ,
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
[2022-06-24] MEDS: Acetaminophen 325 MG Tablet 650 MG PO (17:03)
[2022-06-24 17:10] LABS: Absolute Lymphocyte Count 0.37 X10^3/uL (0.83-4.51); Absolute Neutrophil Count 6.8 X10^3/uL (2.0-7.7); Basophil# 0.03 X10^3/uL; Basophil% 0.4 % (0-1); Eosinophil# 0.04 X10^3/uL; Eosinophils% 0.5 % (0-5); Hematocrit 34.7 % (37-47); Hemoglobin 10.6 g/dL (12.0-15.0); Lymphocyte # 0.37 X10^3/ul (0.83-4.51); Lymphocyte % 4.8 % (19-41); Mean Corp Hgb Conc 30.5 g/dL (32-36); Mean Corpuscular Hgb 34.1 pg (27.0-32.0); Mean Corpuscular Volume 111.6 fL (81-99); Mean Platelet Vol. 10.9 fl (6.2-12.0); Monocyte# 0.45 X10^3/uL; Monocyte% 5.8 % (0-10); NRBC Flagged by Analyzer 0 % (0-5); Neutrophil # 6.78 X10^3/uL (2.7-7.7); POSITIVE COUNT YES; POSITIVE DIFFERENTIAL YES; Platelet Count 92 K/mm3 (150-450); RBC Distribution Width CV 14.8 % (11.6-14.6); RBC Distribution Width SD 59.8 fl (35.1-43.9); Red Blood Count 3.11 M/mm3 (4.2-5.4); White Blood Count 7.7 K/mm3 (4.4-11.0)
[2022-06-24 17:11] LABS: Differential Indicated SCAN CRITERIA MET
[2022-06-24 17:32] LABS: AST(SGOT) 29 U/L (15-37); Alanine Aminotransfer ALT/SGPT 21 U/L (13-56); Albumin, Serum 3.4 g/dL (3.2-5.0); Alkaline Phosphatase 101 U/L (45-117); Anion Gap 5 (5-15); BUN 27 mg/dL (7-18); BUN/Creat Ratio 7.8 RATIO (10-20); Bilirubin, Direct 0.68 mg/dL (0.00-0.30); Calcium,Total 9.5 mg/dL (8.5-10.1); Chloride 97 mmol/L (98-107); Creatinine, Serum 3.45 mg/dL (0.55-1.02); EST Glomerular Filtration Rate 14 mL/min (>60); Est Glom Filt Rate - Afr Amer 17 mL/min (>60); Estimated Creatinine Clearance 9.96 ml/min; Globulin 4.1 g/dL (2.2-4.2); Glucose 152 mg/dL (74-106); Lipase 114 U/L (73-393); Potassium 4.4 mmol/L (3.5-5.1); Protein, Total 7.5 g/dL (6.4-8.2); Sodium Level 136 mmol/L (136-145)
[2022-06-24 17:34] LABS: Anisocytosis 1+; Macrocytosis 1+; Platelet Estimate MOD DEC (ADEQ); Red Cell Morphology N CHROM NORMAL (NORM C&C)
[2022-06-24 17:41] LABS: Mucous, Urine 0 SEEN /hpf (<or=2+); Red Blood Cells-Urine 0 SEEN /hpf (0-5)
--- NOTE | 2022-06-24 18:00 | RAD_ITS ---
STUDY: X-RAY CHEST REASON FOR EXAM: Female, 76 years old. back pain and abd pain with fever x 1 day sob TECHNIQUE: XR Chest 1 View COMPARISON: 04.13.22 FINDINGS: There is atherosclerotic calcification of the aortic arch with tortuosity. There are diffuse degenerative changes of the visualized thoracic spine. There is degenerative osteoarthritis of the bilateral shoulders. There are bilateral pleural effusions. There are bilateral infiltrates. There is moderate cardiac enlargement. Normal mediastinum and elva. Normal visualized pulmonary arteries. There is no demonstrated abnormality of the visualized soft tissue structures of the upper abdomen. RAD/Chest 1 View (Portable) IMPRESSION: Pulmonary findings appear improved. Electronically Signed: Peter Carrera MD at 18:41 EST ,
[2022-06-24 18:11] LABS: Lactic Acid 2.8 mmol/L (0.4-1.9)
[2022-06-24 18:12] LABS: Color, Urine Amber (Yellow); Glucose, Dipstick Normal (Normal); Ketone-Dipstick 5 mg/dl (Negative); Leukocyte Esterase-Dipstick 500 /ul (Negative); Nitrite-Dipstick Positive (Negative); Occult Blood-Urine 250 /ul (Negative); Protein-Dipstick 500 mg/dl (Negative); Urine Clarity Cloudy (Clear); Urine Urobilinogen 1 mg/dl (Normal); Urine pH 6.5 (5.0 - 8.0)
[2022-06-24 18:14] LABS: Urine Bilirubin Dipstick 1 mg/dL (Negative)
[2022-06-24 18:25] LABS: Bacteria 1+ /hpf (None Seen)
[2022-06-24 18:26] LABS: Squamous Epithelial Cells - UA 0-5 SEEN /hpf (5-10); White Blood Cells >100 SEEN /hpf (0-5)
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
[2022-06-24 20:58] LABS: Reflex Lactate? Y
[2022-06-24 22:45] LABS: Lactic Acid 1.5 mmol/L (0.4-1.9)
--- NOTE | 2022-06-24 23:38 | PCM.RX.CS ---
Consult Pharmacy has been consulted to manage selected antiobiotic: Vancomycin Type of Consult: New start Prior Doses of Antibiotics Received/Current Regimen: Medications Discontinued Medications Vancomycin HCl 1,500 mg/ (Sodium Chloride) 530 mls @ 250 mls/hr IV X1 ONE Stop: 06/24/22 20:34 Last Admin: 06/24/22 23:21 Dose: Infused Labs: Sodium 136 mmol/L (136-145) 06/24/22 16:51 Potassium 4.4 mmol/L (3.5-5.1) 06/24/22 16:51 Chloride 97 mmol/L (98-107) L 06/24/22 16:51 Carbon Dioxide 34.0 mmol/L (21.0-32.0) H 06/24/22 16:51 Anion Gap 5 (5-15) 06/24/22 16:51 BUN 27 mg/dL (7-18) H 06/24/22 16:51 Creatinine 3.45 mg/dL (0.55-1.02) H 06/24/22 16:51 Est GFR (MDRD) Af Amer 17 mL/min (>60) L 06/24/22 16:51 Est GFR (MDRD) Non-Af 14 mL/min (>60) L 06/24/22 16:51 BUN/Creatinine Ratio 7.8 RATIO (10-20) L 06/24/22 16:51 Glucose 152 mg/dL (74-106) H 06/24/22 16:51 Microbiology: Microbiology 06/24/22 17:30 Nasal Secretion SARS-CoV-2 & FLU Antigen (Rapid) - Final SARS-CoV-2 (COVID 19) Influenzae A Weight used for dosin kg Estimated Creatinine Clearance: 9.96 Goal Trough: 10-15 mcg/mL Pharmacy Plan for Drug Dosing: An initial vancomycin dose of 1500mg was given in the E.D. 06/24/22. Pharmacy will coordinate with nursing as to when the next dialysis will be scheduled and time further vanco doses from that. Pharmacy Service will continue to monitor and adjust dosing as required.
[2022-06-25] VITALS (12 sets, daily range): BP systolic 92–123; BP diastolic 35–53; PULSE 69–87; RESP 16–21; TEMP 36.1–37.1; O2SAT 96–100
--- NOTE | 2022-06-25 00:29 | NURSING ---
Attempted ng access was unsuccessful x2 attempts. pt pushed at staffs hands while attempting insertion and also developed nose bleed from the tube. Nose bleed has since resolved.
[2022-06-25] MEDS: dexAMETHasone 10 MG/ML Vial 6 MG IV ×2 (00:31→09:37)
[2022-06-25] MEDS: Oxymetazoline 0.05% 1 SPRAY SPRAY.BTL 2 SPRAY NASAL (01:02)
[2022-06-25] MEDS: 0.9% Saline Lock 10 ML Syringe IV ×2 (01:09→09:38)
[2022-06-25 01:36] LABS: Bedside Glucose 74 mg/dL (74-106)
--- NOTE | 2022-06-25 01:41 | NURSING ---
Dr Ray was notified of sepsis alert triggered by patients low bp. States no fluids at this time. Noted. Reviewed current bp with physician of
[2022-06-25 04:41] LABS: Bedside Glucose 109 mg/dL (74-106)
[2022-06-25 06:45] LABS: Bedside Glucose 122 mg/dL (74-106)
[2022-06-25 07:09] LABS: Absolute Lymphocyte Count 0.29 X10^3/uL (0.83-4.51); Absolute Neutrophil Count 8.4 X10^3/uL (2.0-7.7); Basophil# 0.02 X10^3/uL; Basophil% 0.2 % (0-1); Hematocrit 33.9 % (37-47); Hemoglobin 10.3 g/dL (12.0-15.0); Lymphocyte # 0.29 X10^3/ul (0.83-4.51); Lymphocyte % 3.2 % (19-41); Mean Corp Hgb Conc 30.4 g/dL (32-36); Mean Corpuscular Hgb 33.7 pg (27.0-32.0); Mean Corpuscular Volume 110.8 fL (81-99); Monocyte# 0.26 X10^3/uL; Monocyte% 2.9 % (0-10); NRBC Flagged by Analyzer 0.2 % (0-5); Neutrophil # 8.38 X10^3/uL (2.7-7.7); Neutrophil % 92.9 % (47-70); POSITIVE COUNT YES; POSITIVE DIFFERENTIAL YES; Platelet Count 71 K/mm3 (150-450); RBC Distribution Width SD 60.3 fl (35.1-43.9); Red Blood Count 3.06 M/mm3 (4.2-5.4)
[2022-06-25 07:17] LABS: Differential Indicated SCAN CRITERIA MET
[2022-06-25 07:31] LABS: Anion Gap 7 (5-15); BUN 34 mg/dL (7-18); BUN/Creat Ratio 8.8 RATIO (10-20); Calcium,Total 8.9 mg/dL (8.5-10.1); Chloride 101 mmol/L (98-107); Creatinine, Serum 3.88 mg/dL (0.55-1.02); EST Glomerular Filtration Rate 12 mL/min (>60); Est Glom Filt Rate - Afr Amer 15 mL/min (>60); Estimated Creatinine Clearance 8.86 ml/min; Glucose 136 mg/dL (74-106); Sodium Level 136 mmol/L (136-145)
[2022-06-25 08:29] LABS: Anisocytosis 1+; Ovalocyte 1+; Platelet Estimate SLT DEC (ADEQ); Poikilocytosis 1+; Polychromasia 1+
[2022-06-25] MEDS: Enoxaparin 30 MG/0.3 ML Syringe SC (09:36)
[2022-06-25 09:37] LABS: M R Staph aureus DNA By PCR POSITIVE (Negative); Probe Check PASS
[2022-06-25] MEDS: Oseltamivir Phosphate 30 MG Capsule PO (09:37)
--- NOTE | 2022-06-25 09:40 | CASEMGMT ---
RN KAMILA called daughter Beverly for initial transition planning/care coordination assessment as patient is currently confused. RN KAMILA introduced self and role at [facility]. Daughter willing to participate in assessment and is able to answer all questions appropriately. Care providers, pharmacy, and demographics verified. Daughter states patient will want to return home at discharge, will monitor course of treatment and progress with therapy. Daughter states she has no further needs or concerns at this time. CM to follow for discharge planning needs that may arise. PCP: [facility] Specialists: Bin, clamp remover; January community coordinator Preferred Pharmacy: [facility] Insurance: [employer] [facility] Prescription Benefit: yes Living Will/HPOA: yes, daughter Beverly Butler LNOK: daughter, son Living Arrangements: Patient lives alone in a first floor apartment with no steps to enter. Per daughter patient was independent prior to current illness. Transportation: daughter, Access transport through [facility] for HD DME/HHC: Patient states she has a tub bench, cane, walker, rollator, wheelchair, medical alert, lift chair, grab bars, and pulse ox at home. Patient has been to [facility] and [facility] in the past. Patient has had [facility] HHC in the past. Patient has aide services MWF 3hrs/day 3days/week through [place]. Patient received Passport services with KAMILA Timmons. Patient attends HD at [facility] at 1100. Disposition Plan: TBD by course of treatment and progress with therapy. Monet IZQUIERDO, RN, CM
--- NOTE | 2022-06-25 09:57 | PN.HOSP_ITS ---
Subjective Subjective Patient is a 76-year-old lady admitted with progressive generalized weakness and fever found to have COVID-19 as well as influenza A admitted to a monitored bed for further management. Blood cultures obtained on admission came back positive for gram-positive cocci in chains Objective Data Objective Data Vital Signs: Vital Signs Temp Pulse Resp BP Pulse Ox O2 Del Method O2 Flow Rate 98.8 F 74 17 123/53 H 98 Nasal Cannula 2 06/25/22 09:25 06/25/22 09:25 06/25/22 09:25 06/25/22 09:25 06/25/22 09:28 06/25/22 09:28 06/25/22 09:28 Oxygen Flow Rate (L/min) 2 Oxygen Delivery Method Nasal Cannula Weight: 94 kg Body Mass Index (BMI) 40.4 Intake & Output: Intake and Output for Last 24 Hours 06/23/22 06/24/22 06/25/22 23:59 23:59 23:59 Intake Total 1096.65 / 1096.65 60 / 60 Output Total 0 / 0 Balance 1096.65 / 1096.65 60 / 60 Lab / Micro Data Result Diagrams: 06/25/22 06:50 06/25/22 06:50 Labs: Laboratory Results - last 24 hr 06/24/22 16:51: WBC 7.7, RBC 3.11 L, Hgb 10.6 L, Hct 34.7 L, MCV 111.6 H, MCH 34.1 H, MCHC 30.5 L, RDW Std Deviation 59.8 H, RDW Coeff of Kusum 14.8 H, Plt Count 92 L, MPV 10.9, Immature Gran % (Auto) 0.500, Neut % (Auto) 88.0 H, Lymph % (Auto) 4.8 L, [place] % (Auto) 5.8, Eos % (Auto) 0.5, Baso % (Auto) 0.4, Absolute Neuts (auto) 6.8, Absolute Lymphs (auto) 0.37 L, Nucleated RBC % 0, Differential Comment SEE COMMENT, Platelet Estimate MOD DEC, RBC Morphology N CHROM, Ani socytosis 1+, Macrocytosis 1+ 06/24/22 16:51: Sodium 136, Potassium 4.4, Chloride 97 L, Carbon Dioxide 34.0 H, Anion Gap 5, BUN 27 H, Creatinine 3.45 H, Estim Creat Clear Calc 9.96, Est GFR (MDRD) Af Amer 17 L, Est GFR (MDRD) Non-Af 14 L, BUN/Creatinine Ratio 7.8 L, Glucose 152 H, Calcium 9.5, Total Bilirubin 1.40 H, Direct Bilirubin 0.68 H, AST 29, ALT 21, Alkaline Phosphatase 101, Total Protein 7.5, Albumin 3.4, Globulin 4.1, Lipase 114 06/24/22 16:51: Lactic Acid 2.8 H* 06/24/22 17:30: Urine Color Nilsa, Urine Clarity Cloudy, Urine pH 6.5, Ur Specific [place] 1.010, Urine Protein 500 H, Urine Glucose (UA) Normal, Urine Ketones 5 H, Urine Occult Blood 250 H, Urine Nitrite Positive H, Urine Bilirubin 1 H, Urine Urobilinogen 1 H, Ur Leukocyte Esterase 500 H, Urine RBC 0 SEEN, Urine WBC >100 SEEN, Ur Squamous Epith Cells 0-5 SEEN, Urine Bacteria 1+, Urine Mucus 0 SEEN 06/24/22 22:00: Lactic Acid 1.5 06/25/22 01:11: POC Glucose 74 06/25/22 04:15: POC Glucose 109 H 06/25/22 04:30: MRSA (PCR) POSITIVE H 06/25/22 06:14: POC Glucose 122 H 06/25/22 06:50: WBC 9.0, RBC 3.06 L, Hgb 10.3 L, Hct 33.9 L, MCV 110.8 H, MCH 33.7 H, MCHC 30.4 L, RDW Std Deviation 60.3 H, RDW Coeff of Kusum 15.0 H, Plt Count 71 L, MPV 11.0, Immature Gran % (Auto) 0.800, Neut % (Auto) 92.9 H, Lymph % (Auto) 3.2 L, [place] % (Auto) 2.9, Eos % (Auto) 0.0, Baso % (Auto) 0.2, Absolute Neuts (auto) 8.4 H, Absolute Lymphs (auto) 0.29 L, Nucleated RBC % 0.2, Platelet Estimate SLT DEC, Polychromasia 1+, Poikilocytosis 1+, Anisocytosis 1+, Ovalocytes 1+ 06/25/22 06:50: Sodium 136, Potassium 5.0, Chloride 101, Carbon Dioxide 28.0, Anion Gap 7, BUN 34 H, Creatinine 3.88 H, Estim Creat Clear Calc 8.86, Est GFR (MDRD) Af Amer 15 L, Est GFR (MDRD) Non-Af 12 L, BUN/Creatinine Ratio 8.8 L, Glucose 136 H, Calcium 8.9 Micro: Microbiology 06/24/22 17:30 Blood Culture (Wb) - Anticubital Right Blood Culture - Preliminary 06/24/22 16:51 Blood Culture (Wb) - Anticubital Right Blood Culture - Preliminary 06/24/22 17:30 Nasal Secretion SARS-CoV-2 & FLU Antigen (Rapid) - Final SARS-CoV-2 (COVID 19) Influenzae A Radiography Diagnostic Testing: Radiology Impression Abdomen/Pelvis CT 06/24/22 16:44 IMPRESSION: (NOT LISTED IN ORDER OF SIGNIFICANCE) Soft tissue edema. There are bilateral pleural effusions. There is bilateral pneumonia. Other findings as above. Electronically Signed: Peter Carrera MD at 18:45 EST , Chest X-Ray 06/24/22 18:00 IMPRESSION: Pulmonary findings appear improved. Electronically Signed: Peter Carrera MD at 18:41 EST , Physical Exam Narrative GENERAL: cooperative HEENT: Atraumatic; normocephalic EYES; Anicteric, Normal Conjunctiva NECK; supple, normal thyroid, RESPIRATORY: Diminished to auscultation CARDIOVASCULAR: Regular S1 S2, GI: soft, normoactive bowel sounds, : No Renal angle tenderness; EXTREMITIES: No edema, no clubbing, MUSCULOSKELETAL: no muscle wasting NEURO: Awake; no lateralizing signs. SKIN: No Rash PSYCH; Flat affect Assessment & Plan Assessment/Plan (1) COVID-19: (2) Influenza A: (3) UTI (urinary tract infection): (4) Sepsis: (5) Metabolic encephalopathy: PLAN: Plan Patient is a 76-year-old lady admitted with progressive generalized weakness and fever found to have COVID-19 as well as influenza A admitted to a monitored bed for further management. Blood cultures obtained on admission came back positive for gram-positive cocci in chains 1. Acute influenza A infection ? Patient admitted to regular nursing floor managed symptomatically in addition to Tamiflu use 2. SARS-CoV-2 in positivity ? Patient claims she has had several falls positive result in the past subsequently requested for PCR 3.? Positive blood cultures ? Patient is growing gram-positive cocci in chains fine identification and sensitivities pending 4. End-stage renal disease ? On hemodialysis days Tuesdays, and Saturdays) patient's commercial finance manager Dr. Christine Steward was consulted for dialysis orders 5.? Anemia - Secondary to chronic disorder monitoring H&H and transfuse if patient becomes symptomatic or hemoglobin falls below? 7 6. Chronic congestive heart failure with preserved ejection fraction -Last echocardiogram was 02/25/2021 that showed an EF of 55% with severe RV dilation and moderate global RV dysfunction, severe tricuspid valve insuff iciency plan is to continue with dialysis for volume management 7. Diabetes mellitus type II -patient's oral hypoglycemics held. Placed on long acting insulin, Accu-Cheks a.c. and at bedtime and covered with sliding scale insulin 8. Seizure disorder -Continue Vimpat 9. Dyslipidemia -Patient is on statin therapy, continued at home dose 10. Class III obesity with BMI of 40.5 Weight loss advised 11. Chronic thrombocytopenia ? Stable 12. GERD ? On PPI 13. DVT prophylaxis Bilateral SCDs Charges/Coding Visit Charges Inpatient E&M: 75715 Subs Hosp L3
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
[2022-06-25 12:15] LABS: Bedside Glucose 136 mg/dL (74-106)
--- NOTE | 2022-06-25 14:24 | PCM.RX.CS ---
Consult Pharmacy has been consulted to manage selected antiobiotic: Vancomycin Type of Consult: Follow-up Labs: Sodium 136 mmol/L (136-145) 06/25/22 06:50 Potassium 5.0 mmol/L (3.5-5.1) 06/25/22 06:50 Chloride 101 mmol/L (98-107) 06/25/22 06:50 Carbon Dioxide 28.0 mmol/L (21.0-32.0) 06/25/22 06:50 Anion Gap 7 (5-15) 06/25/22 06:50 BUN 34 mg/dL (7-18) H 06/25/22 06:50 Creatinine 3.88 mg/dL (0.55-1.02) H 06/25/22 06:50 Est GFR (MDRD) Af Amer 15 mL/min (>60) L 06/25/22 06:50 Est GFR (MDRD) Non-Af 12 mL/min (>60) L 06/25/22 06:50 BUN/Creatinine Ratio 8.8 RATIO (10-20) L 06/25/22 06:50 Glucose 136 mg/dL (74-106) H 06/25/22 06:50 Microbiology: Microbiology 06/24/22 17:30 Urine, Catheterized Urine Culture - Preliminary Culture exhibits no growth. 06/24/22 17:30 Blood Culture (Wb) - Anticubital Right Blood Culture - Preliminary 06/24/22 16:51 Blood Culture (Wb) - Anticubital Right Blood Culture - Preliminary 06/24/22 17:30 Nasal Secretion SARS-CoV-2 & FLU Antigen (Rapid) - Final SARS-CoV-2 (COVID 19) Influenzae A Goal Trough: 10-15 mcg/mL Pharmacy Plan for Drug Dosing: Patient is scheduled to have HD today per nephrology, and will then continue home HD schedule (//). Vancomycin dose: 750mg IV x1 post-hd treatment today Trough: pre-HD trough to be drawn 06/28/22 with AM labs Pharmacy Service will continue to monitor and adjust dosing as required.
--- NOTE | 2022-06-25 14:51 | CASEMGMT ---
ERICA TREVIÑO called patient in room for discharge planning. Patient states she would like [facility] for therapy at discharge, declinced need for fdc. Patient declined list of C agencies. ERICA TREVIÑO made referral through [facility] to [facility] and will confirm setup on Monday06/25/22. Green sheet placed on chart for HHC and possible home oxygen.
--- NOTE | 2022-06-25 16:14 | DS.PCM_ITS ---
Providers Date of Admission: 06/24/22 Primary Care Physician: Dr. Gissel Arriola MD Consultations 06/24/22 22:16 Consult: Nephrology Routine Consulting Provider: Christine Steward Reason for Consult: esrd on dialysis (Monday, and Saturdays) EMERGENT Consult: No MD Notified: Yes Date Notified: 06/24/22 Time Notified: 19:44 Method of Notification: Text Reason For Visit: COVID-19 INFECTION; UTI; INFLUENZA A INFECTION; Diagnosis Discharge Diagnosis (1) COVID-19: Status: Acute Code(s): U07.1 - COVID-19 (2) Influenza A: Status: Acute Code(s): J10.1 - Influenza due to other identified influenza virus with other respiratory manifestations (3) UTI (urinary tract infection): Status: Acute Code(s): N39.0 - Urinary tract infection, site not specified (4) Sepsis: Status: Acute Code(s): A41.9 - Sepsis, unspecified organism (5) Metabolic encephalopathy: Status: Acute Code(s): G93.41 - Metabolic encephalopathy (6) ESRD (end stage renal disease) on dialysis: Status: Acute Code(s): N18.6 - End stage renal disease; Z99.2 - Dependence on renal dialysis (7) UTI (urinary tract infection): Status: Acute Code(s): N39.0 - Urinary tract infection, site not specified (8) Iron deficiency anemia: Status: Acute Code(s): D50.9 - Iron deficiency anemia, unspecified Plan Patient is a 76-year-old lady admitted with progressive generalized weakness and fever found to have COVID-19 as well as influenza A admitted to a monitored bed for further management. Blood cultures obtained on admission came back positive for gram-positive cocci in chains 1. Acute influenza A infection ? Patient admitted to regular nursing floor managed symptomatically in addition to Tamiflu use -Patient elected to sign out AGAINST MEDICAL ADVICE just 1 day after her admission 2. SARS-CoV-2 in positivity ? Patient claims she has had several falls positive result in the past subsequently requested for PCR 3.? Positive blood cultures ? Patient is growing gram-positive cocci in chains fine identification and sensitivities pending 4. End-stage renal disease ? 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 Christine Steward was consulted for dialysis orders 5.? Anemia - Secondary to chronic disorder monitoring H&H and transfuse if patient becomes symptomatic or hemoglobin falls below? 7 6. Chronic congestive heart failure with preserved ejection fraction -Last echocardiogram was 02/25/2021 that showed an EF of 55% with severe RV dilation and moderate global RV dysfunction, severe tricuspid valve insufficiency plan is to continue with dialysis for volume management 7. Diabetes mellitus type II -patient's oral hypoglycemics held. Placed on long acting insulin, Accu-Cheks a.c. and at bedtime and covered with sliding scale insulin 8. Seizure disorder -Continue Vimpat 9. Dyslipidemia -Patient is on statin therapy, continued at home dose 10. Class III obesity with BMI of 40.5 Weight loss advised 11. Chronic thrombocytopenia ? Stable 12. GERD ? On PPI 13. DVT prophylaxis Bilateral SCDs Medications at Discharge Home Medications lacosamide 100 mg tablet (Vimpat) 100 mg PO BID seizures 02/22/21 latanoprost 0.005 % eye drops (Xalatan) 1 drp EACH EYE QPM eyes 08/16/21 insulin glargine 100 unit/mL (3 mL) subcutaneous pen (Lantus Solostar U-100 Insulin) 15 unit (0.15 mL) subcut BID DM #0 mL 08/17/21 omeprazole 20 mg capsule,delayed release 20 mg PO DAILY GERD #90 caps 02/22/22 aspirin 81 mg tablet,delayed release 81 mg PO DAILY HEALTH #90 tabs 03/14/22 calcium acetate(phosphat bind) 667 mg capsule 667 mg PO TIDCM vitamin 04/13/22 cholecalciferol (vitamin D3) 125 mcg (5,000 unit) tablet (Vitamin D3) 125 mcg PO KELLOGG vitamin 04/15/22 insulin lispro 100 unit/mL subcutaneous pen 1 sliding scale dose subcut USEASDIRECTD BLOOD SUGARS 04/15/22 gabapentin 100 mg capsule 200 mg PO BID NERVE PAIN #180 caps 05/11/22 acetaminophen 325 mg capsule 650 mg PO ONCE PRN Pain 05/20/22 atorvastatin 40 mg tablet 40 mg PO QHS CHOLESTEROL 06/24/22 midodrine 10 mg tablet 10 mg PO BID bp 06/24/22 nephrovite 1 tablet PO 1XD SUPPLEMENT 06/24/22 trazodone 50 mg tablet 25 mg PO QHS SLEEP 06/24/22 Hospital Course Summary of Care Provided Minutes Spent on Discharge: 35 Physical Exam Narrative GENERAL: cooperative HEENT: Atraumatic; normocephalic EYES; Anicteric, Normal Conjunctiva NECK; supple, normal thyroid, RESPIRATORY: Diminished to auscultation CARDIOVASCULAR: Regular S1 S2, GI: soft, normoactive bowel sounds, : No Renal angle tenderness; EXTREMITIES: No edema, no clubbing, MUSCULOSKELETAL: no muscle wasting NEURO: Awake; no lateralizing signs. SKIN: No Rash PSYCH; Flat affect Weight / BMI Weight Weight: 94 kg Body Mass Index (BMI) 40.4 ABG / Lab / Microbiology Data Result Diagrams: 06/25/22 06:50 06/25/22 06:50 Laboratory: Laboratory Results - last 24 hr 06/24/22 16:51: WBC 7.7, RBC 3.11 L, Hgb 10.6 L, Hct 34.7 L, MCV 111.6 H, MCH 34.1 H, MCHC 30.5 L, RDW Std Deviation 59.8 H, RDW Coeff of Kusum 14.8 H, Plt Count 92 L, MPV 10.9, Immature Gran % (Auto) 0.500, Neut % (Auto) 88.0 H, Lymph % (Auto) 4.8 L, [place] % (Auto) 5.8, Eos % (Auto) 0.5, Baso % (Auto) 0.4, Absolute Neuts (auto) 6.8, Absolute Lymphs (auto) 0.37 L, Nucleated RBC % 0, Differential Comment SEE COMMENT, Platelet Estimate MOD DEC, RBC Morphology N CHROM, Anisoc ytosis 1+, Macrocytosis 1+ 06/24/22 16:51: Sodium 136, Potassium 4.4, Chloride 97 L, Carbon Dioxide 34.0 H, Anion Gap 5, BUN 27 H, Creatinine 3.45 H, Estim Creat Clear Calc 9.96, Est GFR (MDRD) Af Amer 17 L, Est GFR (MDRD) Non-Af 14 L, BUN/Creatinine Ratio 7.8 L, Glucose 152 H, Calcium 9.5, Total Bilirubin 1.40 H, Direct Bilirubin 0.68 H, AST 29, ALT 21, Alkaline Phosphatase 101, Total Protein 7.5, Albumin 3.4, Globulin 4.1, Lipase 114 06/24/22 16:51: Lactic Acid 2.8 H* 06/24/22 17:30: Urine Color Nilsa, Urine Clarity Cloudy, Urine pH 6.5, Ur Specific [place] 1.010, Urine Protein 500 H, Urine Glucose (UA) Normal, Urine Ketones 5 H, Urine Occult Blood 250 H, Urine Nitrite Positive H, Urine Bilirubin 1 H, Urine Urobilinogen 1 H, Ur Leukocyte Esterase 500 H, Urine RBC 0 SEEN, Urine WBC >100 SEEN, Ur Squamous Epith Cells 0-5 SEEN, Urine Bacteria 1+, Urine Mucus 0 SEEN 06/24/22 22:00: Lactic Acid 1.5 06/25/22 01:11: POC Glucose 74 06/25/22 04:15: POC Glucose 109 H 06/25/22 04:30: MRSA (PCR) POSITIVE H 06/25/22 06:14: POC Glucose 122 H 06/25/22 06:50: WBC 9.0, RBC 3.06 L, Hgb 10.3 L, Hct 33.9 L, MCV 110.8 H, MCH 33.7 H, MCHC 30.4 L, RDW Std Deviation 60.3 H, RDW Coeff of Kusum 15.0 H, Plt Count 71 L, MPV 11.0, Immature Gran % (Auto) 0.800, Neut % (Auto) 92.9 H, Lymph % (Auto) 3.2 L, [place] % (Auto) 2.9, Eos % (Auto) 0.0, Baso % (Auto) 0.2, Absolute Neuts (auto) 8.4 H, Absolute Lymphs (auto) 0.29 L, Nucleated RBC % 0.2, Platelet Estimate SLT DEC, Polychromasia 1+, Poikilocytosis 1+, Anisocytosis 1+, Ovalocytes 1+ 06/25/22 06:50: Sodium 136, Potassium 5.0, Chloride 101, Carbon Dioxide 28.0, Anion Gap 7, BUN 34 H, Creatinine 3.88 H, Estim Creat Clear Calc 8.86, Est GFR (MDRD) Af Amer 15 L, Est GFR (MDRD) Non-Af 12 L, BUN/Creatinine Ratio 8.8 L, Glucose 136 H, Calcium 8.9 06/25/22 11:17: COVID-19 ([facility]) Not Detected 06/25/22 11:53: POC Glucose 136 H Microbiology: Microbiology 06/24/22 17:30 Urine, Catheterized Urine Culture - Preliminary Culture exhibits no growth. 06/24/22 17:30 Blood Culture (Wb) - Anticubital Right Blood Culture - Preliminary 06/24/22 16:51 Blood Culture (Wb) - Anticubital Right Blood Culture - Preliminary 06/24/22 17:30 Nasal Secretion SARS-CoV-2 & FLU Antigen (Rapid) - Final SARS-CoV-2 (COVID 19) Influenzae A Radiography Diagnostic Testing: Radiology Impression Abdomen/Pelvis CT 06/24/22 16:44 IMPRESSION: (NOT LISTED IN ORDER OF SIGNIFICANCE) Soft tissue edema. There are bilateral pleural effusions. There is bilateral pneumonia. Other findings as above. Electronically Signed: Peter Carrera MD at 18:45 EST , Chest X-Ray 06/24/22 18:00 IMPRESSION: Pulmonary findings appear improved. Electronically Signed: Peter Carrera MD at 18:41 EST , Meaningful Use Info Meaningful Use Diagnoses (Choose all that apply): None applicable Discharge Plan Admission Admit Date/Time: 06/24/22 19:15 Attending Provider: Man Negrete Primary Care Provider: Gissel Arriola Consulting Providers: Farhat Ray ; Christine Steward Discharge Orders/Prescriptions Prescriptions: No Action insulin lispro 100 unit/mL insulin pen 1 sliding scale dose subcut USEASDIRECTD Rx Instructions: 3-5 units SQ before meals acetaminophen 325 mg capsule 650 mg PO ONCE PRN (Reason: Pain) lacosamide [Vimpat] 100 mg tablet 100 mg PO BID calcium acetate(phosphat bind) 667 mg capsule 667 mg PO TIDCM latanoprost [Xalatan] 0.005 % Drops 1 drp EACH EYE QPM insulin glargine [Lantus Solostar U-100 Insulin] 100 unit/mL (3 mL) insulin pen 15 unit subcut BID Qty: 0 0RF cholecalciferol (vitamin D3) [Vitamin D3] 125 mcg (5,000 unit) tablet 125 mcg PO KELLOGG atorvastatin 40 mg tablet 40 mg PO QHS midodrine 10 mg tablet 10 mg PO BID Rx Instructions: 10 mg orally BID; do not give last dose of day after 6PM or within 4 hrs of bedtime nephrovite 1 tablet PO 1XD Rx Instructions: daily trazodone 50 mg Tablet 25 mg PO QHS omeprazole 20 mg capsule,delayed release(DR/EC) 20 mg PO DAILY Qty: 90 1RF aspirin 81 mg tablet,delayed release (DR/EC) 81 mg PO DAILY Qty: 90 1RF gabapentin 100 mg capsule 200 mg PO BID Qty: 180 3RF Referrals / Follow Up: Gissel Arriola MD [Primary Care Provider] - Disposition Disposition (needs filled in before D/C Order can be placed): Against Medical Advice Charges/Coding Visit Charges Inpatient E&M: 38009 Disch Hosp
== END 2022-06-25 16:28 | disposition left against medical advice (07) | DRG 871 ==
LOC: ED 19:18 → PCU 19:32
PROVIDERS: Admitting Provider Hospitalist; Emergency Provider Emergency Medicine; PCP Internal Medicine; Visit Provider Internal Medicine
DX: A41.89 Other specified sepsis (principal); G93.41 Metabolic encephalopathy; U07.1 COVID-19; I13.2 Hypertensive heart and chronic kidney disease with heart failure and with stage 5 chronic kidney disease, or end stage renal disease; E87.20 Acidosis, unspecified; N18.4 Chronic kidney disease, stage 4 (severe); I50.32 Chronic diastolic (congestive) heart failure; Z68.41 Body mass index [BMI] 40.0-44.9, adult; N39.0 Urinary tract infection, site not specified; E11.22 Type 2 diabetes mellitus with diabetic chronic kidney disease; D50.9 Iron deficiency anemia, unspecified; E11.42 Type 2 diabetes mellitus with diabetic polyneuropathy; J44.9 Chronic obstructive pulmonary disease, unspecified; F31.9 Bipolar disorder, unspecified; G40.909 Epilepsy, unspecified, not intractable, without status epilepticus; Z79.4 Long term (current) use of insulin; Z99.2 Dependence on renal dialysis; E66.01 Morbid (severe) obesity due to excess calories; E11.65 Type 2 diabetes mellitus with hyperglycemia; E78.5 Hyperlipidemia, unspecified; I25.2 Old myocardial infarction; J10.1 Influenza due to other identified influenza virus with other respiratory manifestations; K21.9 Gastro-esophageal reflux disease without esophagitis; R09.02 Hypoxemia; F41.1 Generalized anxiety disorder; Z79.82 Long term (current) use of aspirin; Z87.891 Personal history of nicotine dependence; Z86.16 Personal history of COVID-19; Z86.73 Personal history of transient ischemic attack (TIA), and cerebral infarction without residual deficits
CPT/HCPCS: 36415; 71045; 74176; 80048; 80076; 81001; 82962; 83605; 83690; 85025; 87040; 87077; 87086; 87088; 87186; 87428; 87635; 87641; 97162; 97166; 97802; 99285; J7040; A4216; C9254; J0696; J3490; U0003; U0005

== ENCOUNTER 2022-06-28 18:17 | Inpatient (IN) | payer MEDICARE, MEDICAID, SELFPAY ==
[2022-06-28 18:19] VITALS: BP 117/89; PULSE 72; RESP 18; TEMP 36.4; O2SAT 97; BMI 44.1
--- NOTE | 2022-06-28 18:40 | RAD_ITS ---
STUDY: X-RAY - PELVIS AND LEFT HIP REASON FOR EXAM: Female, 76 years old. fall TECHNIQUE: 3 views of the pelvis and hip. COMPARISON: 05/04/2022 FINDINGS: There is a non-specific bowel gas pattern. Normal visualized soft tissue structures. Normal bilateral iliac wings, sacroiliac joints and visualized sacrum. Normal bilateral superior and inferior pubic rami. Normal pubic symphysis. Normal bilateral ischial tuberosities. Normal visualized femoral head. Normal acetabulum. Normal hip joint. RAD/HIP, UNI W/ Pelvis 2-3 Views IMPRESSION: Normal x-ray examination of the pelvis and hip. Electronically Signed: Colton Lee MD at 20:03 EST ,
--- NOTE | 2022-06-28 18:46 | RAD_ITS ---
STUDY: X-RAY - RIGHT KNEE REASON FOR EXAM: Female, 76 years old. FALL TECHNIQUE: 4 view(s) of the knee. COMPARISON: None. FINDINGS: Normal visualized distal femur. Normal visualized proximal tibia and fibula. Normal proximal tibiofibular articulation. There is moderate degenerative arthrosis of the medial femorotibial compartment with moderate joint space narrowing. There is mild degenerative arthrosis of the lateral femorotibial compartment. There is mild degenerative arthrosis of the patellofemoral articulation. 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 The soft tissue structures are unremarkable. RAD/Knee 4 or More Views IMPRESSION: 1. No acute fracture or dislocation. 2. CPPD with moderate arthrosis. Electronically Signed: Colton Lee MD at 20:01 EST ,
[2022-06-28 19:07] LABS: Absolute Lymphocyte Count 0.47 X10^3/uL (0.83-4.51); Absolute Neutrophil Count 3.3 X10^3/uL (2.0-7.7); Basophil# 0.03 X10^3/uL; Basophil% 0.7 % (0-1); Eosinophil# 0.08 X10^3/uL; Eosinophils% 1.8 % (0-5); Hematocrit 33.7 % (37-47); Hemoglobin 10.6 g/dL (12.0-15.0); Lymphocyte # 0.47 X10^3/ul (0.83-4.51); Lymphocyte % 10.5 % (19-41); Mean Corp Hgb Conc 31.5 g/dL (32-36); Mean Corpuscular Hgb 33.8 pg (27.0-32.0); Mean Corpuscular Volume 107.3 fL (81-99); Mean Platelet Vol. 10.7 fl (6.2-12.0); Monocyte# 0.61 X10^3/uL; Monocyte% 13.6 % (0-10); NRBC Flagged by Analyzer 0 % (0-5); Neutrophil # 3.27 X10^3/uL (2.7-7.7); POSITIVE COUNT YES; POSITIVE DIFFERENTIAL YES; Platelet Count 88 K/mm3 (150-450); RBC Distribution Width CV 14.7 % (11.6-14.6); RBC Distribution Width SD 57.7 fl (35.1-43.9); Red Blood Count 3.14 M/mm3 (4.2-5.4); White Blood Count 4.5 K/mm3 (4.4-11.0)
[2022-06-28 19:20] LABS: Anion Gap 7 (5-15); BUN 40 mg/dL (7-18); BUN/Creat Ratio 11.1 RATIO (10-20); Calcium,Total 8.4 mg/dL (8.5-10.1); Chloride 96 mmol/L (98-107); EST Glomerular Filtration Rate 13 mL/min (>60); Est Glom Filt Rate - Afr Amer 16 mL/min (>60); Estimated Creatinine Clearance 9.55 ml/min; Glucose 253 mg/dL (74-106); Potassium 4.2 mmol/L (3.5-5.1); Sodium Level 135 mmol/L (136-145)
[2022-06-28 19:21] LABS: Differential Indicated SCAN CRITERIA MET
--- NOTE | 2022-06-28 19:21 | RAD_ITS ---
STUDY: X-RAY - LEFT KNEE REASON FOR EXAM: Female, 76 years old. fall TECHNIQUE: 4 view(s) of the knee. COMPARISON: None. FINDINGS: Normal visualized distal femur. Normal visualized proximal tibia and fibula. Normal proximal tibiofibular articulation. There is mild degenerative arthrosis of the medial femorotibial compartment. There is mild degenerative arthrosis of the lateral femorotibial compartment. There is mild degenerative arthrosis of the patellofemoral articulation. 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 The soft tissue structures are unremarkable. RAD/Knee 4 or More Views IMPRESSION: 1. No acute fracture or dislocation. 2. CPPD with mild arthrosis. Electronically Signed: Colton Lee MD at 20:00 EST ,
--- NOTE | 2022-06-28 19:21 | RAD_ITS ---
STUDY: X-RAY - LUMBAR SPINE REASON FOR EXAM: Female, 76 years old. FALL TECHNIQUE: 2 view(s) of the lumbar spine were obtained. COMPARISON: None FINDINGS: Normal lumbar lordosis. There is no substantial scoliosis. There is a normal alignment of the vertebrae. There is multilevel endplate spondylosis of the lumbar vertebrae. There is multi-level degenerative disc disease with multi-level disc space narrowing. Facet hypertrophy in the lower lumbar spine. The soft tissue structures are unremarkable. RAD/Lumbar Spine 2 or 3 Views IMPRESSION: 1. No acute fracture or subluxation. 2. 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 Electronically Signed: Colton Lee MD at 20:04 EST ,
--- NOTE | 2022-06-28 19:21 | RAD_ITS ---
STUDY: X-RAY - SACRUM/COCCYX REASON FOR EXAM: Female, 76 years old. FALL TECHNIQUE: 2 view(s) of the sacrum and coccyx were obtained. COMPARISON: None. FINDINGS: Normal bilateral sacroiliac joints. Normal visualized sacral ala and fused sacral bodies. Normal sacrococcygeal junction with a normal angulation. Normal coccygeal segments. The presacral soft tissue structures are unremarkable. RAD/Sacrum-Coccyx min 2 Views IMPRESSION: Normal x-rays of the sacrum and coccyx. Electronically Signed: Colton Lee MD at 19:58 EST ,
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
[2022-06-28 19:46] LABS: Differential Comment SCANNED
[2022-06-28 20:17] VITALS: BP 121/40; PULSE 71; RESP 20; O2SAT 96
[2022-06-28 20:53] LABS: Mucous, Urine 0 SEEN /hpf (<or=2+)
[2022-06-28 21:07] LABS: Color, Urine Brown (Yellow); Glucose, Dipstick Normal (Normal); Ketone-Dipstick 5 mg/dl (Negative); Leukocyte Esterase-Dipstick 500 /ul (Negative); Nitrite-Dipstick Negative (Negative); Occult Blood-Urine 250 /ul (Negative); Protein-Dipstick 500 mg/dl (Negative); Specific Gravity, Urine 1.015 (1.002-1.030); Urine Clarity Cloudy (Clear); Urine Urobilinogen Normal (Normal)
[2022-06-28] MEDS: Acetaminophen 325 MG Tablet 650 MG PO (21:30)
[2022-06-28 21:31] LABS: Urine Bilirubin Dipstick 1 mg/dL (Negative)
[2022-06-28 21:32] VITALS: BP 107/52; PULSE 70; RESP 16; O2SAT 97
[2022-06-28 21:34] LABS: Red Blood Cells-Urine 5-10 SEEN /hpf (0-5)
[2022-06-28 21:35] LABS: White Blood Cells 50-100 SEEN /hpf (0-5)
[2022-06-28 21:37] LABS: Bacteria 2+ /hpf (None Seen); Squamous Epithelial Cells - UA 0-5 SEEN /hpf (5-10)
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
[2022-06-28 22:12] VITALS: BP 98/32; PULSE 80; RESP 21; TEMP 36.6; O2SAT 93
[2022-06-28 23:00] VITALS: BP 123/44; PULSE 80; RESP 18; O2SAT 94
--- NOTE | 2022-06-28 23:26 | RAD_ITS ---
STUDY: X-RAY CHEST REASON FOR EXAM: Female, 76 years old. cough TECHNIQUE: Single AP portable view of the chest. COMPARISON: 06/24/2022 FINDINGS: Poor inspiration with some bibasilar atelectasis. Possible small bilateral pleural effusions. There is moderate cardiac enlargement. Normal mediastinum and elva. Normal visualized pulmonary arteries. Normal visualized aortic arch and descending thoracic aorta. Normal visualized thoracic spine. Normal visualized ribs, clavicles, and shoulders. There is no demonstrated abnormality of the visualized soft tissue structures of the upper abdomen. RAD/Chest 1 View (Portable) IMPRESSION: No change from 06/24/2022 Electronically Signed: Colton Lee MD at 23:36 EST ,
[2022-06-29] VITALS (9 sets, daily range): BP systolic 105–123; BP diastolic 43–60; PULSE 63–81; RESP 16–24; TEMP 36.4–37; O2SAT 92–95; BMI 44.1
--- NOTE | 2022-06-29 00:11 | CT_ITS ---
INDICATION: hemoptysis KNEE PAIN AND IS UNABLE TO WALK HX:AFIB,CHF,COPD,HTN,CKD STAGE 3-ON DIALYSIS,BREAST CANCER EXAMINATION: CT CHEST WITH CONTRAST - CT Chest W/ Contrast Injection TECHNIQUE: Helically acquired images were obtained of the chest following IV contrast. A radiation dose optimization technique was used for this scan. IV Contrast dosage and agent: COMPARISON: CT abdomen and pelvis 06/24/2022; CT chest 05/13/2022. FINDINGS: LUNGS: Groundglass opacities in the left upper lobe medially with relatively nodular configuration. Mild scattered hazy opacities throughout the lungs. Partial compressive atelectasis of the lower lobes. PLEURA: Moderate bilateral pleural effusions greater on the right. Increased compared to recent CT abdomen and pelvis. No pneumothorax. MEDIASTINUM: Unremarkable. HEART: Mildly enlarged. AORTA: Normal caliber. UPPER ABDOMEN: Small amount of free fluid in the upper abdomen. BONES/SOFT TISSUES: Diffuse edema in the left breast partially included, similar to prior CT chest. Enlarged lymph nodes in the left axilla similar to prior. OTHER: None. CT/Chest WITH Contrast IMPRESSION: 1. Moderate bilateral pleural effusions increased compared to prior studies with compressive lower lobe atelectasis 2. Groundglass opacities most pronounced in the left upper lobe may be inflammatory such as viral pneumonitis or Covid19. Cannot exclude underlying nodule/malignancy especially in the left upper lobe. CT imaging follow-up is recommended to confirm resolution and rule out mass. 3. Diffuse edema in the left breast with left axillary adenopathy may be consistent with known malignancy. 4. Small amount of ascites. Electronically Signed: Beti Peña MD at 1:21 EST ,
--- NOTE | 2022-06-29 01:45 | PHA.PHARE_ITS ---
Consult Pharmacy has been consulted to manage selected antiobiotic: Vancomycin Type of Consult: New start Suspected Infection: Skin/Soft tissue Prior Doses of Antibiotics Received/Current Regimen: Medications Discontinued Medications Vancomycin HCl 1,500 mg/ (Sodium Chloride) 530 mls @ 250 mls/hr IV X1 ONE Stop: 06/29/22 00:17 Last Admin: 06/29/22 00:01 Dose: 250 mls/hr Labs: Sodium 135 mmol/L (136-145) L 06/28/22 18:53 Potassium 4.2 mmol/L (3.5-5.1) 06/28/22 18:53 Chloride 96 mmol/L (98-107) L 06/28/22 18:53 Carbon Dioxide 32.0 mmol/L (21.0-32.0) 06/28/22 18:53 Anion Gap 7 (5-15) 06/28/22 18:53 BUN 40 mg/dL (7-18) H 06/28/22 18:53 Creatinine 3.60 mg/dL (0.55-1.02) H 06/28/22 18:53 Est GFR (MDRD) Af Amer 16 mL/min (>60) L 06/28/22 18:53 Est GFR (MDRD) Non-Af 13 mL/min (>60) L 06/28/22 18:53 BUN/Creatinine Ratio 11.1 RATIO (10-20) 06/28/22 18:53 Glucose 253 mg/dL (74-106) H 06/28/22 18:53 Weight used for dosin.4 kg Estimated Creatinine Clearance: 14.3 Goal Trough: 15-20 mcg/mL Pharmacy Plan for Drug Dosing: An initial dose of vancomycin 1500mg was given in ED 06/29/22 @0001. Further dosing will be scheduled post-dialysis sessions, which are currently M/W/F. Terrie arriola will verify with nursing. Pharmacy Service will continue to monitor and adjust dosing as required.
[2022-06-29 02:37] LABS: Procalcitonin 0.72 ng/mL (0.00-0.09)
[2022-06-29] MEDS: 0.9% Normal Saline 1,000 ML 100 ML IV (02:43)
[2022-06-29] MEDS: Ceftriaxone 1 GM/50 ML BAG IV ×2 (04:34→21:13)
[2022-06-29] MEDS: Azithromycin 250 MG Tablet 500 MG PO ×2 (04:35→21:13)
[2022-06-29] MEDS: Nystatin Powder 15gm Bottle 1 APPLIC TOPICAL ×3 (05:26→21:12)
--- NOTE | 2022-06-29 06:12 | EKG12_ITS ---
Test Reason : CHEST PAIN Blood Pressure : / mmHG Vent. Rate : 075 BPM Atrial Rate : 075 BPM P-R Int : 200 ms QRS Dur : 082 ms QT Int : 390 ms P-R-T Axes : 000 084 020 degrees QTc Int : 435 ms Normal sinus rhythm Low voltage QRS Septal infarct , age undetermined Abnormal ECG Confirmed by ANGELA BOWMAN, SANTHOSH ([id number]), editor farm journal RADHA TAPIA ([id number]) on 07/06/2022 10:08:15 AM Referred By: JENNIFER Confirmed By:SANTHOSH MILLER MD
[2022-06-29 06:39] LABS: Absolute Lymphocyte Count 0.51 X10^3/uL (0.83-4.51); Absolute Neutrophil Count 2.7 X10^3/uL (2.0-7.7); Basophil# 0.02 X10^3/uL; Basophil% 0.5 % (0-1); Eosinophil# 0.12 X10^3/uL; Hematocrit 32.1 % (37-47); Hemoglobin 10.4 g/dL (12.0-15.0); Lymphocyte # 0.51 X10^3/ul (0.83-4.51); Lymphocyte % 12.8 % (19-41); Mean Corp Hgb Conc 32.4 g/dL (32-36); Mean Corpuscular Hgb 35.5 pg (27.0-32.0); Mean Corpuscular Volume 109.6 fL (81-99); Mean Platelet Vol. 11.2 fl (6.2-12.0); Monocyte# 0.62 X10^3/uL; Monocyte% 15.5 % (0-10); NRBC Flagged by Analyzer 0 % (0-5); Neutrophil # 2.72 X10^3/uL (2.7-7.7); Neutrophil % 67.9 % (47-70); POSITIVE COUNT YES; POSITIVE DIFFERENTIAL YES; Platelet Count 84 K/mm3 (150-450); RBC Distribution Width CV 14.9 % (11.6-14.6); RBC Distribution Width SD 58.9 fl (35.1-43.9); Red Blood Count 2.93 M/mm3 (4.2-5.4)
[2022-06-29 06:47] LABS: Differential Indicated SCAN CRITERIA MET
[2022-06-29 06:55] LABS: Anisocytosis 1+; Macrocytosis 2+; Platelet Estimate MOD DEC (ADEQ)
[2022-06-29 07:06] LABS: ALB/GLOB Ratio 0.8 RATIO (0.9-2.4); AST(SGOT) 18 U/L (15-37); Alanine Aminotransfer ALT/SGPT 19 U/L (13-56); Albumin, Serum 2.6 g/dL (3.2-5.0); Alkaline Phosphatase 67 U/L (45-117); Anion Gap 9 (5-15); BUN 43 mg/dL (7-18); BUN/Creat Ratio 11.6 RATIO (10-20); Calcium,Total 7.7 mg/dL (8.5-10.1); Chloride 101 mmol/L (98-107); Creatinine, Serum 3.71 mg/dL (0.55-1.02); EST Glomerular Filtration Rate 13 mL/min (>60); Est Glom Filt Rate - Afr Amer 15 mL/min (>60); Estimated Creatinine Clearance 9.27 ml/min; Globulin 3.4 g/dL (2.2-4.2); Glucose 179 mg/dL (74-106); Potassium 4.2 mmol/L (3.5-5.1); Sodium Level 137 mmol/L (136-145)
[2022-06-29] MEDS: Ipratropium/Albuterol Sulfate 3 ML AMPUL.NEB INHALATION ×2 (07:47→19:41)
[2022-06-29 08:20] LABS: Bedside Glucose 166 mg/dL (74-106)
--- NOTE | 2022-06-29 11:33 | PCM.PN.HOSP ---
Subjective Subjective Follow-up for recurrent fall with recent bacteremia Objective Data Objective Data Vital Signs: Vital Signs Temp Pulse Resp BP Pulse Ox O2 Del Method O2 Flow Rate 98 F 66 16 123/43 H 93 Room Air 2 06/29/22 01:29 06/29/22 07:49 06/29/22 07:49 06/29/22 01:29 06/29/22 01:29 06/29/22 01:29 06/29/22 01:24 FiO2 98 06/29/22 01:24 Oxygen Flow Rate (L/min) 2 Oxygen Delivery Method Room Air Weight: 225 lb 12.054 oz Body Mass Index (BMI) 44.1 Intake & Output: Intake and Output for Last 24 Hours 06/27/22 06/28/22 06/29/22 23:59 23:59 23:59 Intake Total 110 / 110 766.67 / 766.67 Balance 110 / 110 766.67 / 766.67 Lab / Micro Data Result Diagrams: 06/29/22 05:55 06/29/22 05:55 Labs: Laboratory Results - last 24 hr 06/28/22 18:53: WBC 4.5, RBC 3.14 L, Hgb 10.6 L, Hct 33.7 L, MCV 107.3 H, MCH 33.8 H, MCHC 31.5 L, RDW Std Deviation 57.7 H, RDW Coeff of [place] 14.7 H, Plt Count 88 L, MPV 10.7, Immature Gran % (Auto) 0.400, Neut % (Auto) 73.0 H, Lymph % (Auto) 10.5 L, [place] % (Auto) 13.6 H, Eos % (Auto) 1.8, Baso % (Auto) 0.7, Absolute Neuts (auto) 3.3, Absolute Lymphs (auto) 0.47 L, Nucleated RBC % 0, Differential Comment SCANNED 06/28/22 18:53: Sodium 135 L, Potassium 4.2, Chloride 96 L, Carbon Dioxide 32.0, Anion Gap 7, BUN 40 H, Creatinine 3.60 H, Estim Creat Clear Calc 9.55, Est GFR (MDRD) Af Amer 16 L, Est GFR (MDRD) Non-Af 13 L, BUN/Creatinine Ratio 11.1, Glucose 253 H, Calcium 8.4 L 06/28/22 20:45: Urine Color Brown, Urine Clarity Cloudy, Urine pH 6.0, Ur Specific [place] 1.015, Urine Protein 500 H, Urine Glucose (UA) Normal, Urine Ketones 5 H, Urine Occult Blood 250 H, Urine Nitrite Negative, Urine Bilirubin 1 H, Urine Urobilinogen Normal, Ur Leukocyte Esterase 500 H, Urine RBC 5-10 SEEN, Urine WBC 50-100 SEEN, Ur Squamous Epith Cells 0-5 SEEN, Urine Bacteria 2+, Urine Mucus 0 SEEN 06/29/22 01:49: Procalcitonin 0.72 H 06/29/22 05:55: WBC 4.0 L, RBC 2.93 L, Hgb 10.4 L, Hct 32.1 L, MCV 109.6 H, MCH 35.5 H, MCHC 32.4, RDW Std Deviation 58.9 H, RDW Coeff of [place] 14.9 H, Plt Count 84 L, MPV 11.2, Immature Gran % (Auto) 0.300, Neut % (Auto) 67.9, Lymph % (Auto) 12.8 L, [place] % (Auto) 15.5 H, Eos % (Auto) 3.0, Baso % (Auto) 0.5, Absolute Neuts (auto) 2.7, Absolute Lymphs (auto) 0.51 L, Nucleated RBC % 0, Diff Path Review May foll, Platelet Estimate MOD DEC, Anisocytosis 1+, Macrocytosis 2+ 06/29/22 05:55: Sodium 137, Potassium 4.2, Chloride 101, Carbon Dioxide 27.0, Anion Gap 9, BUN 43 H, Creatinine 3.71 H, Estim Creat Clear Calc 9.27, Est GFR (MDRD) Af Amer 15 L, Est GFR (MDRD) Non-Af 13 L, BUN/Creatinine Ratio 11.6, Glucose 179 H, Calcium 7.7 L, Total Bilirubin 0.80, AST 18, ALT 19, Alkaline Phosphatase 67, Total Protein 6.0 L, Albumin 2.6 L, Globulin 3.4, Albumin/Globulin Ratio 0.8 L 06/29/22 08:00: POC Glucose 166 H Micro: Microbiology 06/28/22 20:45 Urine Catheter - Catheter Urine Culture - Preliminary Culture exhibits no growth. 06/28/22 20:45 Urine Catheter - Nicole Legionella Antigen - Final Legionella Antigen 06/28/22 20:45 Urine Catheter - Catheter Streptococcus pneumoniae Antigen (M - Final Streptococcus pneumonia Ag Radiography Diagnostic Testing: Radiology Impression Hip/Pelvis X-Ray 06/28/22 18:40 IMPRESSION: Normal x-ray examination of the pelvis and hip. Electronically Signed: Colton Lee MD at 20:03 EST Reading Location ID and State: [id number] / [facility] [employer] , Service support , Knee X-Ray 06/28/22 18:46 IMPRESSION: 1. No acute fracture or dislocation. 2. CPPD with moderate arthrosis. Electronically Signed: Colton Lee MD at 20:01 EST Reading Location ID and State: [id number] / [facility] [employer] , Service support , Knee X-Ray 06/28/22 19:21 IMPRESSION: 1. No acute fracture or dislocation. 2. CPPD with mild arthrosis. Electronically Signed: Colton Lee MD at 20:00 EST Reading Location ID and State: 994 / [employer] , Service support , Lumbar Spine X-Ray 06/28/22 19:21 IMPRESSION: 1. No acute fracture or subluxation. 2. 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 Electronically Signed: Colton Lee MD at 20:04 EST Reading Location ID and State: [id number] / [facility] [employer] , Service support , Sacrum and Coccyx X-Ray 06/28/22 19:21 IMPRESSION: Normal x-rays of the sacrum and coccyx. Electronically Signed: Colton Lee MD at 19:58 EST Reading Location ID and State: 994 / [employer] , Service support , Chest X-Ray 06/28/22 23:26 IMPRESSION: No change from 06/24/2022 Electronically Signed: Colton Lee MD at 23:36 EST , Chest CT 06/29/22 00:11 IMPRESSION: 1. Moderate bilateral pleural effusions increased compared to prior studies with compressive lower lobe atelectasis 2. Groundglass opacities most pronounced in the left upper lobe may be inflammatory such as viral pneumonitis or Covid19. Cannot exclude underlying nodule/malignancy especially in the left upper lobe. CT imaging follow-up is recommended to confirm resolution and rule out mass. 3. Diffuse edema in the left breast with left axillary adenopathy may be consistent with known malignancy. 4. Small amount of ascites. Electronically Signed: Beti Peña MD at 1:21 EST , Physical Exam Narrative Physical Examination: Patient makes some urine once in few days. States she had burning micturition a week ago General: Alert, Oriented x3, Cooperative HEENT: Atraumatic, PERRLA, EOMI, Normocephalic Oral: No Gingival or Mucosal Lesions/ Ulcerations Neck: Supple, No JVD, Negative Carotid Bruits Lungs: Air entry diminished in bilateral lung bases. No crepitation/rhonchi Cardiovascular: Regular rhythm, Normal S1, Normal S2, systolic murmur LLSB Abdomen: Bowel Sounds sluggish, soft. Large pendulous abdomen, fatty plus possible ascites. : No renal angle tenderness. No suprapubic tenderness. Extremities: No edema, Capillary Refill Less than 3 Seconds Skin: Minor superficial ulcerations, chronic from aging. Musculoskeletal: Mild tenderness to Palpation of knees/discomfort, ROM restricted at knee and hip joints. Neurological: Cranial nerves II-XII grossly intact, DTR 2+/4 and Symmetrical Psych/Mental Status: Assessment & Plan Assessment/Plan (1) Enterococcal bacteremia: (2) History of recent fall: PLAN: Plan The patient is a 76-year-old lady admitted for recurrent fall after recent enterococcal bacteremia diagnosis 1.? Acute enterococcal bacteremia during previous admission, probably from bilateral pneumonia UTI: Patient was admitted on 06/24 and signed AMA on 06/25 and found to have enterococcal bacteremia sensitive to ampicillin. Both blood cultures x2 were positive for Enterococcus although urine culture at that time did not show growth. Patient on IV vancomycin. Had recent influenza A for symptomatic management but she signed AMA. At that time COVID-19 PCR was negative. Urinary antigens for Streptococcus pneumonia and Legionella antigens are positive. Initial chest x-ray on 06/24 shows bilateral pneumonia with bilateral effusion. Repeat chest CT on 06/28 shows groundglass opacities pronounced in left upper lobe probably inflammatory/viral pneumonitis with bilateral effusion Plan: Continue antibiotic vancomycin, Rocephin and Zithromax. ID consult. Limited 2D echo ordered. patient had recent echo in January 2022 as mentioned with severe TR and mild MR. Chest CT scan also showed diffuse edema in the left breast with left axillary adenopathy which raise suspicion of breast malignancy. Will need outpatient follow-up. 2. Recent influenza A bronchitis with pneumonia with bacterial superinfection: Although SARS-CoV-2 antigen was positive. COVID-19 PCR came negative. Patient had dark hemoptysis therefore CT scan was done. Not on anticoagulant. 3. Acute on recurrent mechanical fall with bilateral knees, left hip and lumbar spine discomfort: Patient had detail imaging study in ED which did not show any acute fracture or subluxation but without degenerative disease. Lumbar spine x-ray shows no fracture or degenerative disc disease. PT and OT ordered. 4.? End-stage renal disease ? On hemodialysis days Tuesdays, and Saturdays) patient's ear nose and throat specialist Dr. Christine Steward was consulted for dialysis orders 5.? Anemia of chronic disease from ESRD: Last hemoglobin 10.4/32.1%. Platelet count is 6.? Chronic congestive heart failure with preserved ejection fraction -Last echocardiogram was 02/25/2021 that showed an EF of 55% with severe RV dilation and moderate global RV dysfunction, severe tricuspid valve insufficiency plan is to continue with dialysis for volume management. She follows Dr. Sin and Alfred schaeffer. 7.? Diabetes mellitus type II -patient's oral hypoglycemics held. Placed on long acting insulin, Accu-Cheks a.c. and at bedtime and covered with sliding scale insulin 8. Seizure disorder -Continue Vimpat 9.? Dyslipidemia -Patient is on statin therapy, continued at home dose 10.? Class III obesity with BMI of 40.5 Weight loss advised 11.? Chronic thrombocytopenia 12.? GERD ? On PPI 13.? DVT prophylaxis Bilateral SCDs Total time of the visit including total time spent in counseling or coordination of care, (more than 50% of the total time, spent in obtaining medical information from nurses and other ancillary care providers,explaining to the patient about labs, imaging, diagnosis and management of active complex medical conditions), discussion with ID, review of labs and imaging is 40 minutes. Clinical Impression(s) from Imaging Studies Hip/Pelvis X-Ray 06/28/22 18:40 IMPRESSION: Normal x-ray examination of the pelvis and hip. Knee X-Ray 06/28/22 18:46 IMPRESSION: 1. No acute fracture or dislocation. 2. CPPD with moderate arthrosis. Electronically Signed: Colton Lee MD at 20:01 EST Reading Location ID and State: 994 / [employer] , Service support , Knee X-Ray 06/28/22 19:21 IMPRESSION: 1. No acute fracture or dislocation. 2. CPPD with mild arthrosis. Electronically Signed: Colton Lee MD at 20:00 EST Reading Location ID and State: 994 / [employer] , Service support , Lumbar Spine X-Ray 06/28/22 19:21 IMPRESSION: 1. No acute fracture or subluxation. 2. 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 Electronically Signed: Colton Lee MD at 20:04 EST , Sacrum and Coccyx X-Ray 06/28/22 19:21 IMPRESSION: Normal x-rays of the sacrum and coccyx. Electronically Signed: Colton Lee MD at 19:58 EST , Chest X-Ray 06/28/22 23:26 IMPRESSION: No change from 06/24/2022 Electronically Signed: Colton Lee MD at 23:36 EST , Chest CT 06/29/22 00:11 IMPRESSION: 1. Moderate bilateral pleural effusions increased compared to prior studies with compressive lower lobe atelectasis 2. Groundglass opacities most pronounced in the left upper lobe may be inflammatory such as viral pneumonitis or Covid19. Cannot exclude underlying nodule/malignancy especially in the left upper lobe. CT imaging follow-up is recommended to confirm resolution and rule out mass. 3. Diffuse edema in the left breast with left axillary adenopathy may be consistent with known malignancy. 4. Small amount of ascites. Charges/Coding Visit Charges Inpatient E&M: 42039 Subs Hosp L3
[2022-06-29] MEDS: Menthol/Lanolin/Calamine/Znox 113 GM Tube 1 APPLIC TOPICAL ×4 (12:14→21:13)
[2022-06-29] MEDS: Midodrine HCl 5 MG Tablet 10 MG PO ×2 (12:14→17:55)
[2022-06-29] MEDS: Lacosamide 100 MG Tablet PO ×2 (12:15→21:11)
[2022-06-29] MEDS: Gabapentin 100 MG Capsule 200 MG PO ×2 (12:24→21:11)
[2022-06-29 12:25] LABS: Pathologist Review Reviewed
--- NOTE | 2022-06-29 12:28 | ECHOLC_ITS ---
Reason For Study: R/O ENTEROCOCCAL ENDCARDITIS Procedure This was a limited 2D transthoracic echocardiogram. The study was technically difficult. Due to patient body habitus and discomfort. Contrast injection was performed. Limited views were obtained. Exam performed portable in patient room. Left Ventricle D shaped septum in systole and diastole. Based upon the 2D echocardiographic and contrast enhanced images obtained there appears to be normal left ventricular size, wall motion, and systolic function. The estimated ejection fraction is 70 %. Unable to assess diastolic dysfunction. Right Ventricle Severely dilated right ventricle. Mild global right ventricular systolic dysfunction. Atria The left atrium is mildly enlarged. The right atrium is mildly enlarged. Mitral Valve There is no mitral annular calcification. There is mild mitral annular calcification. Mild focal mitral valve calcification, bileaflet. The mitral valve chordae are thickened and/or calcified. Tricuspid Valve Poor coaptation of the tricuspid valve apparatus. Moderate (2+) tricuspid valve insufficiency. Right ventricular systolic pressure estimated to be 27 mmHg. Aortic Valve Trisinus/trileaflet aortic valve. Mild focal aortic valve calcification. Pulmonic Valve The pulmonic valve is not well visualized. Trivial pulmonic valve insufficiency. Great Vessels Normal sized aortic root. Pericardium/Pleural No pericardial effusion. Medication Diluted definity 4.0ml given slow IV push to enhance endocardial definition. MMode/2D Measurements & Calculations LVIDd: 4.2 cm IVSd: 0.97 cm Ao root diam: 2.8 cm LVIDs: 2.8 cm LVPWd: 1.0 cm LA dimension: 5.1 cm FS: 32.8 % LAV(MOD-bp): 80.6 ml LA A4 area: 23.5 cm2 RA A4 area: 19.8 cm2 LAV(MOD-bp) Indexed: 41.0 ml/m2 LAV(MOD-sp2): 85.5 ml LAV(MOD-sp4): 75.2 ml Doppler Measurements & Calculations PA V2 max: 108.3 cm/sec TR max radha: 218.8 cm/sec TR max P.2 mmHg ECHO/Echo Limited w/Contrast Interpretation Summary The study was technically difficult. Contrast injection was performed. Limited views were obtained. Based upon the 2D echocardiographic and contrast enhanced images obtained there appears to be normal left ventricular size, wall motion, and systolic function. The estimated ejection fraction is 70 %. D shaped septum in systole and diastole. Severely dilated right ventricle. Mild global right ventricular systolic dysfunction. The left atrium is mildly enlarged. The right atrium is mildly enlarged. There is mild mitral annular calcification. Mild focal mitral valve calcification, bileaflet. The mitral valve chordae are thickened and/or calcified. Poor coaptation of the tricuspid valve apparatus. Mild focal aortic valve calcification. Trivial pulmonic valve insufficiency. Right ventricular systolic pressure estimated to be 27 mmHg. Unable to assess diastolic dysfunction. Ordering Physician: Osman Blanton Referring Physician: Gissel Arriola Performed By: Shanelle Vazquez, CLARISSA, RVT
[2022-06-29] MEDS: Insulin Glargine-YFGN 100 UNIT/ML Pen 15 UNIT SC ×2 (12:37→21:12)
[2022-06-29 12:50] LABS: Bedside Glucose 153 mg/dL (74-106)
--- NOTE | 2022-06-29 13:10 | CASEMGMT ---
ERICA TREVIÑO Assessment: Face to Face with pt for initial transition planning/care coordination assessment. ERICA TREVIÑO introduced self and role at [facility], pt voices understanding and consents to assessment. Pt in bed. Pt is A/O. Pt appears to be in some distress as evidenced by moaning and rubbing her legs. Pt states her legs are causing pain and had some difficulty answering questions. Call light turned on for assistance. Care providers, pharmacy, and demographics verified/updated. Admitting Dx: UTI, Bacteremia, Fall. PCP: Gissel Arriola. Specialists: Roof, Cardiology. Pt unsure if other specialists are seen. Preferred Pharmacy: [facility]. Insurance: [employer] [facility]. [facility] Community Plan. Prescription Benefit: Yes. LW/HPOA: Pt reports having a LW/HPOA with dtr being HPOA. On file. LNOK: Beverly Butler, dtr. Jose G Null, son. Living Arrangements: Pt lives alone in a one story apartment with no steps to enter. Pt reports being I in ADLs. However, pt has services through [facility]. Rotor Winder is Deanna. 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 Pt is awaiting a medical alert unit. 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 Pt did not answer what [facility] agency provides care. Transportation: Pt doesn't drive. Pt's dtr assists. DME/HHC/SNF: Pt has the following: rollator, wheelchair, grab bars, shower chair, lift chair. Pt denies having a Cpap. Pt has DM and states she has necessary supplies. Pt did not answer further questions related to Cpap, DM or oxygen d/t moaning and rubbing legs. Pt reports [facility] HHC in the past. Pt has been to the [facility] and [facility] in the past. Pt wants to go to SNF. CM to follow. Advised pt to ask CM if any further question/concerns/needs arise, voices understanding. Pt Goal: SNF. Plan: TBD. ?
[2022-06-29] MEDS: guaiFENesin/D-Methorphan TAB.SR.12H 1 TABLET PO ×2 (13:30→21:11)
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
[2022-06-29] MEDS: Insulin Lispro 100 UNIT/ML INSULN.PEN SC ×2 (18:00→21:12)
[2022-06-29 18:25] LABS: Bedside Glucose 208 mg/dL (74-106)
[2022-06-29] MEDS: traZODone 50 MG Tablet 25 MG PO (21:11)
[2022-06-29] MEDS: Latanoprost 0.005% 1 Bottle 1 DRP EACH EYE (21:11)
[2022-06-29] MEDS: Atorvastatin Calcium 40 MG Tablet PO (21:11)
[2022-06-30] VITALS (13 sets, daily range): BP systolic 89–144; BP diastolic 40–54; PULSE 66–85; RESP 14–18; TEMP 36.5–37.3; O2SAT 94–100
[2022-06-30] MEDS: Nystatin Powder 15gm Bottle 1 APPLIC TOPICAL ×3 (04:05→21:02)
[2022-06-30 07:00] LABS: Bedside Glucose 122 mg/dL (74-106)
[2022-06-30] MEDS: Ipratropium/Albuterol Sulfate 3 ML AMPUL.NEB INHALATION ×2 (07:15→19:55)
[2022-06-30 07:17] LABS: Absolute Lymphocyte Count 0.68 X10^3/uL (0.83-4.51); Absolute Neutrophil Count 3.5 X10^3/uL (2.0-7.7); Basophil# 0.04 X10^3/uL; Basophil% 0.8 % (0-1); Eosinophil# 0.21 X10^3/uL; Hemoglobin 11.1 g/dL (12.0-15.0); Lymphocyte # 0.68 X10^3/ul (0.83-4.51); Mean Corp Hgb Conc 31.7 g/dL (32-36); Mean Corpuscular Hgb 35.2 pg (27.0-32.0); Mean Corpuscular Volume 111.1 fL (81-99); Monocyte# 0.79 X10^3/uL; Monocyte% 15.1 % (0-10); NRBC Flagged by Analyzer 0 % (0-5); Neutrophil # 3.48 X10^3/uL (2.7-7.7); Neutrophil % 66.7 % (47-70); Platelet Count 101 K/mm3 (150-450); RBC Distribution Width CV 15.1 % (11.6-14.6); Red Blood Count 3.15 M/mm3 (4.2-5.4); White Blood Count 5.2 K/mm3 (4.4-11.0)
[2022-06-30 07:42] LABS: Anion Gap 8 (5-15); BUN 54 mg/dL (7-18); BUN/Creat Ratio 11.3 RATIO (10-20); Calcium,Total 8.6 mg/dL (8.5-10.1); Chloride 96 mmol/L (98-107); Creatinine, Serum 4.79 mg/dL (0.55-1.02); EST Glomerular Filtration Rate 9 mL/min (>60); Est Glom Filt Rate - Afr Amer 11 mL/min (>60); Estimated Creatinine Clearance 7.18 ml/min; Glucose 120 mg/dL (74-106); Potassium 4.7 mmol/L (3.5-5.1); Sodium Level 132 mmol/L (136-145)
[2022-06-30 08:40] LABS: Bedside Glucose 103 mg/dL (74-106)
--- NOTE | 2022-06-30 09:09 | PN.HOSP_ITS ---
Subjective Subjective Ports feeling somewhat better than she had on presentation but still continues to complain of back pain and requested to be pulled up in the bed. Objective Data Objective Data Vital Signs: Vital Signs Temp Pulse Resp BP Pulse Ox O2 Del Method O2 Flow Rate 97.8 F 68 16 110/42 L 98 Nasal Cannula 3 06/30/22 04:29 06/30/22 07:15 06/30/22 07:15 06/30/22 04:29 06/30/22 07:15 06/30/22 07:15 06/30/22 07:15 FiO2 98 06/29/22 01:24 Oxygen Flow Rate (L/min) 3 Oxygen Delivery Method Nasal Cannula Weight: 102.4 kg Body Mass Index (BMI) 44.1 Intake & Output: Intake and Output for Last 24 Hours 06/28/22 06/29/22 06/30/22 23:59 23:59 23:59 Intake Total 110 / 110 1630.00 / 1630.00 Balance 110 / 110 1630.00 / 1630.00 Lab / Micro Data Result Diagrams: 06/30/22 06:45 06/30/22 06:45 Labs: Laboratory Results - last 24 hr 06/29/22 05:55: Diff Path Review Reviewed 06/29/22 12:27: POC Glucose 153 H 06/29/22 17:58: POC Glucose 208 H 06/30/22 06:28: POC Glucose 122 H 06/30/22 06:45: WBC 5.2, RBC 3.15 L, Hgb 11.1 L, Hct 35.0 L, MCV 111.1 H, MCH 35.2 H, MCHC 31.7 L, RDW Std Deviation 60.0 H, RDW Coeff of Kusum 15.1 H, Plt Count 101 L, MPV 11.0, Immature Gran % (Auto) 0.400, Neut % (Auto) 66.7, Lymph % (Auto) 13.0 L, [place] % (Auto) 15.1 H, Eos % (Auto) 4.0, Baso % (Auto) 0.8, Absolute Neuts (auto) 3.5, Absolute Lymphs (auto) 0.68 L, Nucleated RBC % 0 06/30/22 06:45: Sodium 132 L, Potassium 4.7, Chloride 96 L, Carbon Dioxide 28.0, Anion Gap 8, BUN 54 H, Creatinine 4.79 H, Estim Creat Clear Calc 7.18, Est GFR (MDRD) Af Amer 11 L, Est GFR (MDRD) Non-Af 9 L, BUN/Creatinine Ratio 11.3, Glucose 120 H, Calcium 8.6 06/30/22 08:21: POC Glucose 103 Micro: Microbiology 06/28/22 23:50 Mucosa - Nasopharyngeal Respiratory Panel (PCR) - Final 06/28/22 20:45 Urine Catheter - Catheter Urine Culture - Preliminary Culture exhibits no growth. 06/28/22 20:45 Urine Catheter - Nicole Legionella Antigen - Final Legionella Antigen 06/28/22 20:45 Urine Catheter - Catheter Streptococcus pneumoniae Antigen (M - Final Streptococcus pneumonia Ag Radiography Diagnostic Testing: Radiology Impression Echocardiogram 06/29/22 12:28 Interpretation Summary The study was technically difficult. Contrast injection was performed. Limited views were obtained. Based upon the 2D echocardiographic and contrast enhanced images obtained there appears to be normal left ventricular size, wall motion, and systolic function. The estimated ejection fraction is 70 %. D shaped septum in systole and diastole. Severely dilated right ventricle. Mild global right ventricular systolic dysfunction. The left atrium is mildly enlarged. The right atrium is mildly enlarged. There is mild mitral annular calcification. Mild focal mitral valve calcification, bileaflet. The mitral valve chordae are thickened and/or calcified. Poor coaptation of the tricuspid valve apparatus. Mild focal aortic valve calcification. Trivial pulmonic valve insufficiency. Right ventricular systolic pressure estimated to be 27 mmHg. Unable to assess diastolic dysfunction. Ordering Physician: Osman Blanton Referring Physician: Gissel Arriola Performed By: Shanelle Vazquez, CLARISSA, RVT Physical Exam Const alert Constitutional Narrative: Oriented HEENT normocephalic and head/scalp atraumatic Eyes Eyes Narrative: EOM grossly intact, anicteric Neck supple Resp normal respiratory effort Resp Narrative: Difficult to auscultate secondary to body habitus Cardio regular rate and regular rhythm GI soft to palpation, non-tender and non-distended Extremity Extremity Narrative: No edema appreciated Neuro moves all extremities Neuro Narrative: No overt focal deficits appreciated Psych Psych Narrative: Cooperative Assessment & Plan Assessment/Plan (1) Enterococcal bacteremia: (2) ESRD (end stage renal disease) on dialysis: (3) Pneumonia: (4) Influenza A: PLAN: Plan #Enterococcal bacteremia Probably from bilateral pneumonia Had been admitted 06/24 and had blood cultures but signed out AMA prior to results Recent admission was for influenza A but she had signed out AMA Chest CT 06/28 shows groundglass opacities pronounced in the left upper lobe probably inflammatory/viral pneumonitis with bilateral effusion ID is consulted, on Vanco, Rocephin, Zithromax. Repeat blood cultures pending TTE performed 06/29 with a EF of 70%, D-shaped septum in systole and diastole with a severely dilated right ventricle with mild global right ventricular dysfunction. RVSP estimated to be 27, unable to assess diastolic dysfunction Right left atrium is mildly enlarged Mild mitral annular calcification with mild focal mitral valve calcification, bileaflet Mitral valve chordae are thickened and/or calcified Poor coaptation of the tricuspid valve apparatus Mild focal aortic valve calcifications Trivial pulmonic valve insufficiency #Recent influenza A with bronchitis and superimposed bacterial pneumonia The COVID antigen was positive but PCR was negative On antibiotics On admission did have a cough with some possible hemoptysis, CT as above #Acute on recurrent mechanical fall with multijoint discomfort Imaging did not show any fractures PT/OT ordered #End-stage renal disease On dialysis Monday//Saturdays Starting Gate Driver is Dr. Mullen, Dr. Steward has been consulted #anemia of chronic disease from ESRD: Last hemoglobin 10.4/32.1%.? Platelet count is #Chronic congestive heart failure with preserved ejection fraction -Last echocardiogram was 02/25/2021 that showed an EF of 55% with severe RV dilation and moderate global RV dysfunction, severe tricuspid valve insufficiency plan is to continue with dialysis for volume management.? She follows Dr. Sin and Alfred schaeffer. #Diabetes mellitus type II -patient's oral hypoglycemics held. Placed on long acting insulin, Accu-Cheks a.c. and at bedtime and covered with sliding scale insulin 06/30: glucose 100, will decrease long acting slightly to avoid hypoglycemia #Seizure disorder -Continue Vimpat #Dyslipidemia -Patient is on statin therapy, continued at home dose #Class III obesity with BMI of 40.5 Weight loss advised #Chronic thrombocytopenia #DVT prophylaxis: SCDs Charges/Coding Visit Charges Inpatient E&M: 84637 Subs Hosp L2
[2022-06-30] MEDS: Midodrine HCl 5 MG Tablet 10 MG PO ×3 (10:17→17:23)
--- NOTE | 2022-06-30 10:28 | CASEMGMT ---
Social Work Pt does have a health care POA on file naming her daughter Beverly Butler. Pt has chosen not to complete a Living will. AREN Montelongo
--- NOTE | 2022-06-30 10:38 | PCM.RX.CS ---
Consult Pharmacy has been consulted to manage selected antiobiotic: Vancomycin Type of Consult: Follow-up Suspected Infection: Pneumonia Prior Doses of Antibiotics Received/Current Regimen: Received 1500mg iv x 1 on 06.29.22. Labs: Sodium 132 mmol/L (136-145) L 06/30/22 06:45 Potassium 4.7 mmol/L (3.5-5.1) 06/30/22 06:45 Chloride 96 mmol/L (98-107) L 06/30/22 06:45 Carbon Dioxide 28.0 mmol/L (21.0-32.0) 06/30/22 06:45 Anion Gap 8 (5-15) 06/30/22 06:45 BUN 54 mg/dL (7-18) H 06/30/22 06:45 Creatinine 4.79 mg/dL (0.55-1.02) H 06/30/22 06:45 Est GFR (MDRD) Af Amer 11 mL/min (>60) L 06/30/22 06:45 Est GFR (MDRD) Non-Af 9 mL/min (>60) L 06/30/22 06:45 BUN/Creatinine Ratio 11.3 RATIO (10-20) 06/30/22 06:45 Glucose 120 mg/dL (74-106) H 06/30/22 06:45 Microbiology: Microbiology 06/28/22 20:45 Urine Catheter - Catheter Urine Culture - Preliminary Yeast 06/28/22 23:50 Mucosa - Nasopharyngeal Respiratory Panel (PCR) - Final 06/28/22 20:45 Urine Catheter - Nicole Legionella Antigen - Final Legionella Antigen 06/28/22 20:45 Urine Catheter - Catheter Streptococcus pneumoniae Antigen (M - Final Streptococcus pneumonia Ag Weight used for dosin.4 kg Estimated Creatinine Clearance: 7 ml/min Goal Trough: 15-20 mcg/mL Pharmacy Plan for Drug Dosing: Have ordered 750mg (7.5mg/kg) iv x 1 per policy post dialysis today. Random level ordered for 07.02.22 pre next dialysis session. Pharmacy Service will continue to monitor and adjust dosing as required. Follow-Up Labs: Trough Vancomycin - random 07.02.22 @0600
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
[2022-06-30] MEDS: Heparin 10,000 UNITS/10 ML Vial 4000 UNITS IV (11:20)
--- NOTE | 2022-06-30 11:52 | CASEMGMT ---
Addendum entered by Louisa Rinaldi 06/30/22 13:02: SW met with pt who is now awake. SW introduced self and role of SW and discussed discharge plan. Pt states she does want to go to SNF. A list of SNF providers including quality and resource use data and consistent with the patient?s preferred geographic region, medical needs, and insurance network were provided from the [employer] [facility]. Pt states preferred provider is [facility] but pt requests SW call her dgt. Phone call placed to dgt Beverly and SW reviewed SNF list. Beverly is agreeable to referral to [facility] at this time but is concerned with transport to dialysis. Pt goes to [facility] at [facility]. Pt has a cart driver through insurance but SW is uncertain if pt will be able to get into a car at this time. SW to inquire if [facility] can provide transport. Dgt also inquiring about on site dialysis. SW explained that [facility] is only local facility. Dgt is adamantly refusing [facility]. SW did inform dgt that other facilities with in house dialysis are in [facility]. Beverly agrees to referral to [facility] at this time and will speak with her mother regarding other options. Plan: [facility], pending acceptance and precert AREN Hull Original Note: Social Work SW attempted to meet with pt to discuss SNF placement. Pt currently getting dialysis. Pt sleeping and SW and RN unable to wake pt up. SW placed call to pt HCPOA/Daughter Beverly Butler who did not answer phone and no VM set up. ANNIE will continue to attempt to meet with pt to discuss discharge planning. AREN Hull
--- NOTE | 2022-06-30 13:24 | PCM.PN.ID ---
Physical Exam Narrative Feeling a little better, still dyspnea and cough, no fever. Const alert and no apparent distress Resp Auscultation: rhonchi and wheezes Cardio regular rate and regular rhythm GI soft to palpation, non-tender and non-distended Extremity General Extremity: Negative for edema Skin no rashes or lesions noted ID ID: Route of nutrition/ use of supplements: [] Nutritional Intake: [] IV Site: [] Nicole Catheter: [] Assessment & Plan Assessment/Plan (1) Enterococcal bacteremia: PLAN: Repeat bcx neg so far here. On vanc/ceftriaxone/azithro. Echo showed no veg. Recent flu and covid Ag (+). Resp panel neg here. UAgs with strep pneumo and legionella. Cont abx as above. Feeling better. Will follow (2) ESRD (end stage renal disease) on dialysis: (3) Pneumonia: (4) Influenza A:
--- NOTE | 2022-06-30 13:30 | CASEMGMT ---
Discharge Lace Cutter This technical writer and editor sent a referral to [facility] via [facility]. Laurie ALDANA Rag Collector
--- NOTE | 2022-06-30 13:51 | CASEMGMT ---
Social Work Pt has services through [facility] and CM is Eva Timmons [phone]. Call placed to Eva and updated on admission and discharge plan. Pt has 9 hours of aid services a week and home delivered meals. SW will fax discharge orders and update of discharge disposition at the appropriate time. AREN Hull
--- NOTE | 2022-06-30 15:15 | DIALYSIS ---
Hemodialysis x 4 hrs completed. -3500ml UF. Stable t/o. Extra dose of 10mg po midodrine given to assist with fluid removal during tx. Hemostasis obtained, gauze/tape applied to needle sites. Pt was then boosted up in bed with assist. Report to primary nurse Mimi given at bedside. Staff attend to pt. Call light in reach.
[2022-06-30] MEDS: Gabapentin 100 MG Capsule 200 MG PO ×2 (15:16→21:37)
[2022-06-30] MEDS: Menthol/Lanolin/Calamine/Znox 113 GM Tube 1 APPLIC TOPICAL ×4 (15:19→20:08)
[2022-06-30] MEDS: guaiFENesin/D-Methorphan TAB.SR.12H 1 TABLET PO ×2 (15:20→21:01)
[2022-06-30] MEDS: Insulin Glargine-YFGN 100 UNIT/ML Pen 10 UNIT SC ×2 (15:20→23:08)
[2022-06-30] MEDS: Lacosamide 100 MG Tablet PO ×2 (15:37→21:37)
--- NOTE | 2022-06-30 15:52 | CASEMGMT ---
Discharge Assembly Lead Person Simran from the [facility] reached out. Patient has been accepted and the [facility] can do transportation. ANNIE Jasso notified. Laurie ALDANA Band Instrument Maker
[2022-06-30 16:05] LABS: Bedside Glucose 107 mg/dL (74-106)
[2022-06-30] MEDS: Latanoprost 0.005% 1 Bottle 1 DRP EACH EYE (20:08)
[2022-06-30] MEDS: Acetaminophen 325 MG Tablet 650 MG PO (21:00)
[2022-06-30] MEDS: Atorvastatin Calcium 40 MG Tablet PO (21:01)
[2022-06-30] MEDS: Azithromycin 250 MG Tablet 500 MG PO (21:01)
[2022-06-30] MEDS: traZODone 50 MG Tablet 25 MG PO (21:36)
[2022-06-30] MEDS: Ceftriaxone 1 GM/50 ML BAG IV (21:37)
[2022-06-30 22:31] LABS: Bedside Glucose 236 mg/dL (74-106)
[2022-06-30] MEDS: Insulin Lispro 100 UNIT/ML INSULN.PEN SC (23:07)
[2022-06-30 23:30] LABS: Bedside Glucose 261 mg/dL (74-106)
[2022-07-01] VITALS (8 sets, daily range): BP systolic 114–147; BP diastolic 58–64; PULSE 72–78; RESP 16–18; TEMP 36.4–36.9; O2SAT 87–98
[2022-07-01] MEDS: Acetaminophen 325 MG Tablet 650 MG PO (05:15)
[2022-07-01] MEDS: Nystatin Powder 15gm Bottle 1 APPLIC TOPICAL ×3 (05:19→20:19)
[2022-07-01 05:52] LABS: Absolute Lymphocyte Count 0.48 X10^3/uL (0.83-4.51); Absolute Neutrophil Count 3.9 X10^3/uL (2.0-7.7); Basophil# 0.04 X10^3/uL; Basophil% 0.7 % (0-1); Eosinophil# 0.18 X10^3/uL; Eosinophils% 3.3 % (0-5); Hematocrit 32.4 % (37-47); Hemoglobin 10.4 g/dL (12.0-15.0); Lymphocyte # 0.48 X10^3/ul (0.83-4.51); Lymphocyte % 8.8 % (19-41); Mean Corp Hgb Conc 32.1 g/dL (32-36); Mean Corpuscular Hgb 35.3 pg (27.0-32.0); Mean Corpuscular Volume 109.8 fL (81-99); Mean Platelet Vol. 10.7 fl (6.2-12.0); Monocyte# 0.88 X10^3/uL; Monocyte% 16.1 % (0-10); NRBC Flagged by Analyzer 0 % (0-5); Neutrophil # 3.86 X10^3/uL (2.7-7.7); Neutrophil % 70.7 % (47-70); POSITIVE COUNT YES; POSITIVE DIFFERENTIAL YES; Platelet Count 97 K/mm3 (150-450); RBC Distribution Width CV 15.2 % (11.6-14.6); RBC Distribution Width SD 60.5 fl (35.1-43.9); Red Blood Count 2.95 M/mm3 (4.2-5.4); White Blood Count 5.5 K/mm3 (4.4-11.0)
[2022-07-01 06:18] LABS: Anion Gap 8 (5-15); BUN 31 mg/dL (7-18); BUN/Creat Ratio 9.4 RATIO (10-20); Calcium,Total 8.1 mg/dL (8.5-10.1); Chloride 94 mmol/L (98-107); Creatinine, Serum 3.29 mg/dL (0.55-1.02); EST Glomerular Filtration Rate 15 mL/min (>60); Est Glom Filt Rate - Afr Amer 18 mL/min (>60); Estimated Creatinine Clearance 10.45 ml/min; Glucose 156 mg/dL (74-106); Potassium 4.4 mmol/L (3.5-5.1); Sodium Level 130 mmol/L (136-145)
[2022-07-01 06:19] LABS: Differential Comment SCANNED
[2022-07-01 07:25] LABS: Bedside Glucose 139 mg/dL (74-106)
[2022-07-01] MEDS: Ipratropium/Albuterol Sulfate 3 ML AMPUL.NEB INHALATION ×2 (07:26→19:29)
[2022-07-01] MEDS: Menthol/Lanolin/Calamine/Znox 113 GM Tube 1 APPLIC TOPICAL ×5 (09:13→20:18)
[2022-07-01] MEDS: guaiFENesin/D-Methorphan TAB.SR.12H 1 TABLET PO ×2 (09:14→20:19)
[2022-07-01] MEDS: Midodrine HCl 5 MG Tablet 10 MG PO ×2 (09:14→16:10)
--- NOTE | 2022-07-01 09:14 | CASEMGMT ---
Social Work SW placed call to pt daughter, Beverly to inform of acceptance to [facility] being agreeable to transport pt to dialysis. Beverly voiced understanding, aware that insurance auth is pending. PLAN: [facility], pending precert AREN Cantu
[2022-07-01] MEDS: Insulin Glargine-YFGN 100 UNIT/ML Pen 10 UNIT SC ×2 (09:16→20:28)
[2022-07-01] MEDS: Gabapentin 100 MG Capsule 200 MG PO ×2 (09:20→20:37)
[2022-07-01] MEDS: Lacosamide 100 MG Tablet PO ×2 (09:20→20:37)
[2022-07-01 12:00] LABS: Bedside Glucose 247 mg/dL (74-106)
[2022-07-01] MEDS: Insulin Lispro 100 UNIT/ML INSULN.PEN SC ×3 (12:39→20:28)
--- NOTE | 2022-07-01 13:54 | CASEMGMT ---
Social Work SW sent PT/OT notes to [place] via [facility]. Pt had dialysis yesterday so PT/Ot evaluation was not able to be completed until this day. Therapy notes needed for insurance auth to be submitted. AREN Cantu
--- NOTE | 2022-07-01 14:08 | PCM.PN.ID ---
Physical Exam Narrative Sleeping today, no fever Const no apparent distress Resp normal air movement and clear to auscultation bilaterally Cardio regular rate and regular rhythm GI soft to palpation, non-tender and non-distended Skin no rashes or lesions noted ID ID: Route of nutrition/ use of supplements: [] Nutritional Intake: [] IV Site: [] Nicole Catheter: [] Assessment & Plan Assessment/Plan (1) Enterococcal bacteremia: PLAN: Repeat bcx neg so far here. On vanc/ceftriaxone/azithro. Echo showed no veg. Recent flu and covid Ag (+). Resp panel neg here. UAgs with strep pneumo and legionella. Cont abx as above. Overall improving. Plan on stop date for abx 07/08. If she leaves prior to completing, can change to po linezolid 600mg bid and azithro 500mg po at discharge. Will follow (2) ESRD (end stage renal disease) on dialysis: (3) Pneumonia: (4) Influenza A:
--- NOTE | 2022-07-01 14:13 | WOUNDNOTE ---
Pt sitting up in chair eating lunch. pulse ox 98% on 1L currently. pt denies further needs at this time.
--- NOTE | 2022-07-01 14:36 | CASEMGMT ---
Spoke to pt KAMILA Ventura from [facility]. . She is aware pt is still inpatient and plans to go to [facility].
--- NOTE | 2022-07-01 14:43 | PCM.PN.HOSP ---
Subjective Subjective Breathing fair, still feels somewhat diffusely weak Objective Data Objective Data Vital Signs: Vital Signs Temp Pulse Resp BP Pulse Ox O2 Del Method O2 Flow Rate 97.5 F L 75 16 132/59 H 95 Nasal Cannula 1 07/01/22 08:00 07/01/22 08:00 07/01/22 08:00 07/01/22 08:00 07/01/22 08:00 07/01/22 09:34 07/01/22 09:34 FiO2 98 06/29/22 01:24 Oxygen Flow Rate (L/min) 1 Oxygen Delivery Method Nasal Cannula Weight: 76.5 kg Body Mass Index (BMI) 44.1 Intake & Output: Intake and Output for Last 24 Hours 06/29/22 06/30/22 07/01/22 23:59 23:59 23:59 Intake Total 1630.00 / 1630.00 480 / 480 515 / 515 Output Total 3500 / 3500 Balance 1630.00 / 1630.00 -3020 / -3020 515 / 515 Lab / Micro Data Result Diagrams: 07/01/22 05:12 07/01/22 05:12 Labs: Laboratory Results - last 24 hr 06/29/22 21:10: POC Glucose 236 H 06/30/22 15:18: POC Glucose 107 H 06/30/22 23:05: POC Glucose 261 H 07/01/22 05:12: WBC 5.5, RBC 2.95 L, Hgb 10.4 L, Hct 32.4 L, MCV 109.8 H, MCH 35.3 H, MCHC 32.1, RDW Std Deviation 60.5 H, RDW Coeff of Kusum 15.2 H, Plt Count 97 L, MPV 10.7, Immature Gran % (Auto) 0.400, Neut % (Auto) 70.7 H, Lymph % (Auto) 8.8 L, [place] % (Auto) 16.1 H, Eos % (Auto) 3.3, Baso % (Auto) 0.7, Absolute Neuts (auto) 3.9, Absolute Lymphs (auto) 0.48 L, Nucleated RBC % 0, Differential Comment SCANNED 07/01/22 05:12: Sodium 130 L, Potassium 4.4, Chloride 94 L, Carbon Dioxide 28.0, Anion Gap 8, BUN 31 H, Creatinine 3.29 H, Estim Creat Clear Calc 10.45, Est GFR (MDRD) Af Amer 18 L, Est GFR (MDRD) Non-Af 15 L, BUN/Creatinine Ratio 9.4 L, Glucose 156 H, Calcium 8.1 L 07/01/22 07:05: POC Glucose 139 H 07/01/22 11:38: POC Glucose 247 H Micro: Microbiology 06/28/22 23:05 Blood Culture (Wb) - Right Hand Blood Culture - Preliminary No growth in 48 hours. 06/28/22 22:45 Blood Culture (Wb) - Left Wrist Blood Culture - Preliminary No growth in 48 hours. 06/28/22 20:45 Urine Catheter - Catheter Urine Culture - Final Yeast, not Tuyet albicans 06/28/22 23:50 Mucosa - Nasopharyngeal Respiratory Panel (PCR) - Final 06/28/22 20:45 Urine Catheter - Nicole Legionella Antigen - Final Legionella Antigen 06/28/22 20:45 Urine Catheter - Catheter Streptococcus pneumoniae Antigen (M - Final Streptococcus pneumonia Ag Physical Exam Const alert Constitutional Narrative: Oriented HEENT normocephalic and head/scalp atraumatic Eyes Eyes Narrative: EOM grossly intact, anicteric Neck supple Resp normal respiratory effort Resp Narrative: Difficult to auscultate secondary to body habitus Cardio regular rate and regular rhythm GI soft to palpation, non-tender and non-distended Extremity Extremity Narrative: Moving all extremities Neuro Neuro Narrative: No overt focal deficits appreciated Psych Psych Narrative: Cooperative Assessment & Plan Assessment/Plan (1) Enterococcal bacteremia: (2) ESRD (end stage renal disease) on dialysis: (3) Pneumonia: (4) Influenza A: PLAN: Plan #Enterococcal bacteremia Probably from bilateral pneumonia Had been admitted 06/24 and had blood cultures but signed out AMA prior to results Recent admission was for influenza A but she had signed out AMA Chest CT 06/28 shows groundglass opacities pronounced in the left upper lobe probably inflammatory/viral pneumonitis with bilateral effusion ID is consulted, on Vanco, Rocephin, Zithromax. Repeat blood cultures pending TTE performed 06/29 with a EF of 70%, D-shaped septum in systole and diastole with a severely dilated right ventricle with mild global right ventricular dysfunction. RVSP estimated to be 27, unable to assess diastolic dysfunction Right left atrium is mildly enlarged Mild mitral annular calcification with mild focal mitral valve calcification, bileaflet Mitral valve chordae are thickened and/or calcified Poor coaptation of the tricuspid valve apparatus Mild focal aortic valve calcifications Trivial pulmonic valve insufficiency 07/01: Blood cultures here no growth to date, on vancomycin/Rocephin/azithromycin. Echo with no vegetation. Antibiotics through 07/08 and can be converted to linezolid 600 twice daily and [id number] mg orally at discharge #Recent influenza A with bronchitis and superimposed bacterial pneumonia The COVID antigen was positive but PCR was negative On antibiotics On admission did have a cough with some possible hemoptysis, CT as above #Acute on recurrent mechanical fall with multijoint discomfort Imaging did not show any fractures PT/OT ordered 07/01: Plan to discharge to retirement facility #End-stage renal disease On dialysis Monday//Saturdays Patient Access Representative is, Dr. Steward has been consulted #anemia of chronic disease from ESRD: Last hemoglobin 10.4/32.1%.? #Chronic congestive heart failure with preserved ejection fraction -Last echocardiogram was 02/25/2021 that showed an EF of 55% with severe RV dilation and moderate global RV dysfunction, severe tricuspid valve insufficiency plan is to continue with dialysis for volume management.? She follows Dr. Sin and Alfred schaeffer. #Diabetes mellitus type II -patient's oral hypoglycemics held. Placed on long acting insulin, Accu-Cheks a.c. and at bedtime and covered with sliding scale insulin 06/30: glucose 100, will decrease long acting slightly to avoid hypoglycemia #Seizure disorder -Continue Vimpat #Dyslipidemia -Patient is on statin therapy, continued at home dose #Class III obesity with BMI of 40.5 Weight loss advised #Chronic thrombocytopenia #DVT prophylaxis: SCDs Charges/Coding Visit Charges Inpatient E&M: 38621 Subs Hosp L2
[2022-07-01 16:26] LABS: Bedside Glucose 233 mg/dL (74-106)
[2022-07-01] MEDS: Latanoprost 0.005% 1 Bottle 1 DRP EACH EYE (20:17)
[2022-07-01] MEDS: Atorvastatin Calcium 40 MG Tablet PO (20:19)
[2022-07-01] MEDS: Azithromycin 250 MG Tablet 500 MG PO (20:19)
[2022-07-01] MEDS: Ceftriaxone 1 GM/50 ML BAG IV (20:38)
--- NOTE | 2022-07-01 22:12 | NURSING ---
pT SLEEPING PO 87% ON . AT 2LNC APPLIED
[2022-07-02 01:06] LABS: Bedside Glucose 173 mg/dL (74-106)
[2022-07-02] MEDS: Acetaminophen 325 MG Tablet 650 MG PO (02:08)
[2022-07-02 02:10] VITALS: BP 145/59; PULSE 83; RESP 18; TEMP 36.7; O2SAT 98
--- NOTE | 2022-07-02 02:10 | NURSING ---
Pt very tearful c/o abd pain. tylenol po given
--- NOTE | 2022-07-02 03:03 | NURSING ---
Pt walking around in room. pt did not call for help. Pt not wanting to open her eyes. accucheck 242. the more this nurse talked to pt she became more with it.
[2022-07-02 03:21] LABS: Bedside Glucose 242 mg/dL (74-106)
[2022-07-02] MEDS: Insulin Lispro 100 UNIT/ML INSULN.PEN SC ×2 (06:23→12:10)
[2022-07-02] MEDS: Nystatin Powder 15gm Bottle 1 APPLIC TOPICAL (06:24)
[2022-07-02 07:01] LABS: Bedside Glucose 237 mg/dL (74-106)
[2022-07-02 07:08] LABS: Absolute Lymphocyte Count 0.44 X10^3/uL (0.83-4.51); Absolute Neutrophil Count 3.3 X10^3/uL (2.0-7.7); Basophil# 0.03 X10^3/uL; Basophil% 0.6 % (0-1); Eosinophil# 0.22 X10^3/uL; Eosinophils% 4.5 % (0-5); Hematocrit 33.1 % (37-47); Hemoglobin 10.5 g/dL (12.0-15.0); Lymphocyte # 0.44 X10^3/ul (0.83-4.51); Lymphocyte % 9.1 % (19-41); Mean Corp Hgb Conc 31.7 g/dL (32-36); Mean Corpuscular Hgb 34.8 pg (27.0-32.0); Mean Corpuscular Volume 109.6 fL (81-99); Mean Platelet Vol. 10.7 fl (6.2-12.0); Monocyte# 0.79 X10^3/uL; Monocyte% 16.3 % (0-10); NRBC Flagged by Analyzer 1.2 % (0-5); Neutrophil # 3.34 X10^3/uL (2.7-7.7); Neutrophil % 68.7 % (47-70); POSITIVE COUNT YES; POSITIVE DIFFERENTIAL YES; Platelet Count 98 K/mm3 (150-450); RBC Distribution Width SD 59.3 fl (35.1-43.9); Red Blood Count 3.02 M/mm3 (4.2-5.4); White Blood Count 4.9 K/mm3 (4.4-11.0)
[2022-07-02] MEDS: Ipratropium/Albuterol Sulfate 3 ML AMPUL.NEB INHALATION (07:13)
[2022-07-02 07:15] VITALS: PULSE 75; RESP 20; O2SAT 94
[2022-07-02 07:22] LABS: Differential Comment SCANNED; Differential Indicated SCAN CRITERIA MET
[2022-07-02 07:33] LABS: ALB/GLOB Ratio 0.8 RATIO (0.9-2.4); AST(SGOT) 22 U/L (15-37); Alanine Aminotransfer ALT/SGPT 22 U/L (13-56); Albumin, Serum 3.1 g/dL (3.2-5.0); Alkaline Phosphatase 88 U/L (45-117); Anion Gap 6 (5-15); BUN 46 mg/dL (7-18); Calcium,Total 8.6 mg/dL (8.5-10.1); Chloride 94 mmol/L (98-107); Creatinine, Serum 4.19 mg/dL (0.55-1.02); EST Glomerular Filtration Rate 11 mL/min (>60); Est Glom Filt Rate - Afr Amer 13 mL/min (>60); Globulin 3.9 g/dL (2.2-4.2); Glucose 243 mg/dL (74-106); Sodium Level 129 mmol/L (136-145)
[2022-07-02 07:34] LABS: Vancomycin, Random Level 25.7 ug/mL (0.0-15.0)
[2022-07-02 08:00] VITALS: O2SAT 97
[2022-07-02] MEDS: Midodrine HCl 5 MG Tablet 10 MG PO ×2 (08:08→10:34)
[2022-07-02] MEDS: Insulin Glargine-YFGN 100 UNIT/ML Pen 10 UNIT SC (08:08)
[2022-07-02] MEDS: guaiFENesin/D-Methorphan TAB.SR.12H 1 TABLET PO (08:09)
[2022-07-02] MEDS: Menthol/Lanolin/Calamine/Znox 113 GM Tube 1 APPLIC TOPICAL (08:09)
--- NOTE | 2022-07-02 08:09 | PCM.RX.CS ---
Consult Pharmacy has been consulted to manage selected antiobiotic: Vancomycin Type of Consult: Follow-up Suspected Infection: Pneumonia Prior Doses of Antibiotics Received/Current Regimen: Last dose was 750mg iv x 1 on 06.30.22 post dialysis. Labs: Sodium 129 mmol/L (136-145) L 07/02/22 06:18 Potassium 5.0 mmol/L (3.5-5.1) 07/02/22 06:18 Chloride 94 mmol/L (98-107) L 07/02/22 06:18 Carbon Dioxide 29.0 mmol/L (21.0-32.0) 07/02/22 06:18 Anion Gap 6 (5-15) 07/02/22 06:18 BUN 46 mg/dL (7-18) H 07/02/22 06:18 Creatinine 4.19 mg/dL (0.55-1.02) H 07/02/22 06:18 Est GFR (MDRD) Af Amer 13 mL/min (>60) L 07/02/22 06:18 Est GFR (MDRD) Non-Af 11 mL/min (>60) L 07/02/22 06:18 BUN/Creatinine Ratio 11.0 RATIO (10-20) 07/02/22 06:18 Glucose 243 mg/dL (74-106) H 07/02/22 06:18 Random Vancomycin 25.7 ug/mL (0.0-15.0) H 07/02/22 06:18 Microbiology: Microbiology 06/28/22 23:05 Blood Culture (Wb) - Right Hand Blood Culture - Preliminary No growth in 48 hours. 06/28/22 22:45 Blood Culture (Wb) - Left Wrist Blood Culture - Preliminary No growth in 48 hours. 06/28/22 20:45 Urine Catheter - Catheter Urine Culture - Final Yeast, not Tuyet albicans 06/28/22 23:50 Mucosa - Nasopharyngeal Respiratory Panel (PCR) - Final 06/28/22 20:45 Urine Catheter - Nicole Legionella Antigen - Final Legionella Antigen 06/28/22 20:45 Urine Catheter - Catheter Streptococcus pneumoniae Antigen (M - Final Streptococcus pneumonia Ag Weight used for dosin.5 kg Estimated Creatinine Clearance: ~8ml/min Goal Trough: 15-20 mcg/mL Pharmacy Plan for Drug Dosing: Random level today ~37 hrs post dose was 25.7. No further dosing will be ordered at this time. Another random level ordered for Mon. 07.05.22 pre-dialysis. Dosing will resume when level <20 mcg/ml. Pharmacy Service will continue to monitor and adjust dosing as required. Follow-Up Labs: Trough Vancomycin - random 07.04.22 @0600
[2022-07-02 08:10] VITALS: BP 121/68; PULSE 77; RESP 16; TEMP 36.7; O2SAT 91
[2022-07-02] MEDS: Lacosamide 100 MG Tablet PO (08:15)
[2022-07-02] MEDS: Gabapentin 100 MG Capsule 200 MG PO (08:15)
--- NOTE | 2022-07-02 09:51 | TREXTCAR_ITS ---
Diet Diet Order/Speech Therapy: 06/29/22 11:32 Diet: Renal - ConsCHO - Dejon Cont Food consistency:: Regular Liquid Consistency:: Regular/Thin Dietary Modifications:: Sodium Restricted Potassium Restricted Phosphorus Restricted Fluid restriction:: 1500 mL How many daily calories?: 1800 calorie Routine Orders/Code Status Suppository Type: Dulcolax 10mg Suppository Frequency: Daily PRN Keep PO Greater than or Equal to (%): 92 Routine Lab Work: BMP (2 days) Code Status: DNRCC-A Therapies Physical Therapy: Eval and Treat Occupational Therapy: Eval and Treat Problem/Diagnosis (1) Enterococcal bacteremia: Status: Acute Code(s): R78.81 - Bacteremia; B95.2 - Enterococcus as the cause of diseases classified elsewhere (2) ESRD (end stage renal disease) on dialysis: Status: Acute Code(s): N18.6 - End stage renal disease; Z99.2 - Dependence on renal dialysis (3) Pneumonia: Status: Acute Code(s): J18.9 - Pneumonia, unspecified organism (4) Influenza A: Status: Acute Code(s): J10.1 - Influenza due to other identified influenza virus with other respiratory manifestations Plan #Enterococcal bacteremia #Recent influenza A with bronchitis and superimposed bacterial pneumonia #Acute on recurrent mechanical fall with multijoint discomfort #End-stage renal disease #anemia of chronic disease from ESRD: #Chronic congestive heart failure with preserved ejection fraction #Diabetes mellitus type II #Seizure disorder #Dyslipidemia #Class III obesity with BMI of 40.5 #Chronic thrombocytopenia 75-year-old female with history of chronic diastolic CHF, chronic hyponatremia, chronic anemia, end-stage renal disease on dialysis Monday and Monday, type 2 diabetes mellitus, seizure disorder who was recently discharged 06/24/2022 following admission for initially suspected UTI as well as influenza but she left AMA secondary to her self-reported frustration. She represented 06/28/2022 with mechanical fall the day prior to presentation and landed on her knees and hip with ongoing discomfort. In the ED it was noted that her recent blood culture from the prior admission had now resulted with enteric coccus and IV vancomycin administered. This admission she was also found to have a positive Legionella and strep pneumo urine antigens. Infectious disease consulted and she was on vancomycin, Rocephin, is a throw and repeat blood cultures were obtained and were no growth to date and echocardiogram with no vegetation. Patient stable and okay to transition to oral antibiotics. She was evaluated by physical therapy and nursing home facility was recommended, patient agreeable. DISCHARGE INSTRUCTIONS PLEASE READ ? Your sodium was somewhat low during admission, this has been moderately low in the past as well. This may be due to to an infection with Legionella but would benefit from being monitored upon discharge. Repeat BMP in 2 days ?Antibiotic regimen through 07/08/21: Linezolid 600 mg twice daily and is a throw 500 mg daily, you can take 1 dose of linezolid tonight followed by twice daily through the sixth, you will need a dose of azithromycin tonight followed by daily through the sixth ?She will need to continue dialysis Monday, Monday, Monday ?You had a CT scan which showed some swelling in the left breast with left axillary adenopathy, this will need close outpatient follow-up to rule out malignancy, there is also a small nodule in the left upper lobe and CT follow-up is recommended to confirm resolution and rule out other etiology. Would recommend this is set up as soon as possible. Allergies/Procedures Done in Hospital Allergies Penicillins Allergy (Severe, Verified 06/28/22 18:23) Anaphylaxis ciprofloxacin [From Cipro] Allergy (Verified 06/28/22 18:23) Rash codeine Allergy (Verified 06/28/22 18:23) Shortness of breath Procedures: 2-D Echocardiogram Type of Care/Length of Stay Estimated LOS: Convalescent Care Less Than 30 days Type of Care Needed: Skilled Rehab Potential: Fair Prognosis: Fair Additional Orders/Day of Discharge Day of Discharge: 07/02/22 Dietary and Speech Recommendations Dietitian Recommendations/Changes: Will adjust diet to 1800 calorie/consistent carbohydrate; renal. ONS Nepro as needed if PO fails at meals; will defer for now given BMI 44.1. Discharge Plan Admission Admit Date/Time: 06/28/22 22:20 Primary Reason for Your Visit: Fall Attending Provider: Lizabeth Willis Primary Care Provider: Gissel Arriola Consulting Providers: Osman Blanton ; Dinesh Vaughan ; Christine Steward Instructions Patient Instructions: ED Fall Prevention Additional Instructions / Restrictions: DISCHARGE INSTRUCTIONS PLEASE READ ? Your sodium was somewhat low during admission, this has been moderately low in the past as well. This may be due to to an infection with Legionella but would benefit from being monitored upon discharge. Repeat BMP in 2 days ?Antibiotic regimen through 07/08/21: Linezolid 600 mg twice daily and is a throw 500 mg daily, you can take 1 dose of linezolid tonight followed by twice daily through the sixth, you will need a dose of azithromycin tonight followed by daily through the sixth ?She will need to continue dialysis Monday, Monday, Monday ?You had a CT scan which showed some swelling in the left breast with left axillary adenopathy, this will need close outpatient follow-up to rule out malignancy, there is also a small nodule in the left upper lobe and CT follow-up is recommended to confirm resolution and rule out other etiology. Would recommend this is set up as soon as possible. -Please call your primary care provider's office upon discharge to schedule a hospital follow up within 1 week. -For any concerning signs or symptoms please call 911 or proceed to the nearest emergency department Discharge Orders/Prescriptions Prescriptions: New linezolid 600 mg tablet 600 mg PO Q12H 7 Days Qty: 13 0RF azithromycin 500 mg tablet 500 mg PO DAILY 7 Days Qty: 7 0RF Continued insulin lispro 100 unit/mL insulin pen 1 sliding scale dose subcut USEASDIRECTD Rx Instructions: 3-5 units SQ before meals acetaminophen 325 mg capsule 650 mg PO ONCE PRN (Reason: Pain) lacosamide [Vimpat] 100 mg tablet 100 mg PO BID calcium acetate(phosphat bind) 667 mg capsule 667 mg PO TIDCM latanoprost [Xalatan] 0.005 % Drops 1 drp EACH EYE QPM insulin glargine [Lantus Solostar U-100 Insulin] 100 unit/mL (3 mL) insulin pen 15 unit subcut BID Qty: 0 0RF cholecalciferol (vitamin D3) [Vitamin D3] 125 mcg (5,000 unit) tablet 125 mcg PO KELLOGG atorvastatin 40 mg tablet 40 mg PO QHS midodrine 10 mg tablet 10 mg PO BID Rx Instructions: 10 mg orally BID; do not give last dose of day after 6PM or within 4 hrs of bedtime nephrovite 1 tablet PO 1XD Rx Instructions: daily trazodone 50 mg Tablet 25 mg PO QHS omeprazole 20 mg capsule,delayed release(DR/EC) 20 mg PO DAILY Qty: 90 1RF aspirin 81 mg tablet,delayed release (DR/EC) 81 mg PO DAILY Qty: 90 1RF gabapentin 100 mg capsule 200 mg PO BID Qty: 180 3RF Referrals / Follow Up: Gissel Arriola MD [Primary Care Provider] - Within 1 Week Disposition Disposition (needs filled in before D/C Order can be placed): Nursing Home Facility
[2022-07-02] MEDS: Heparin 10,000 UNITS/10 ML Vial 4000 UNITS IV (10:09)
--- NOTE | 2022-07-02 11:47 | CASEMGMT ---
ANNIE called and left message for Sandra at [facility]. Simran from [facility] called [facility] and advised that they got precert for patient. ANNIE called Simran and spoke to Simran and she confirmed that patient had received precertification. Simran's contact number is [phone] Lorena KENYON
[2022-07-02 12:31] LABS: Bedside Glucose 205 mg/dL (74-106)
[2022-07-02 13:52] VITALS: BP 119/47; PULSE 70; RESP 18; TEMP 36.4; O2SAT 100
[2022-07-02 14:11] VITALS: BP 119/47; PULSE 70; RESP 16; TEMP 36.7; O2SAT 94
--- NOTE | 2022-07-02 14:11 | DS.PCM_ITS ---
Providers Date of Admission: 06/28/22 Date of Discharge: 07/02/22 Primary Care Physician: Dr. Gissel Arriola MD Consultations 06/29/22 01:12 Consult: Nephrology Routine Consulting Provider: Christine Steward Reason for Consult: ESRD on HD EMERGENT Consult: No Notified: Yes Date Notified: 06/29/22 Time Notified: 00:03 Method of Notification: Verbal Method of Consult:: In-Person Comments:: NOTIFIED BY DR SOTO 06/29/22 12:28 Consult: Infectious Disease Routine Consulting Provider: Dinesh Vaughan Reason for Consult: ENTEROCOCCAL BACTEREMIA, PNEUMONIA EMERGENT Consult: No Notified: Yes Date Notified: 06/29/22 Time Notified: 12:28 Method of Notification: Text Reason For Visit: UTI, BACTEREMIA, FALL Diagnosis Discharge Diagnosis (1) Enterococcal bacteremia: Status: Acute Code(s): R78.81 - Bacteremia; B95.2 - Enterococcus as the cause of diseases classified elsewhere (2) ESRD (end stage renal disease) on dialysis: Status: Acute Code(s): N18.6 - End stage renal disease; Z99.2 - Dependence on renal dialysis (3) Pneumonia: Status: Acute Code(s): J18.9 - Pneumonia, unspecified organism (4) Influenza A: Status: Acute Code(s): J10.1 - Influenza due to other identified influenza virus with other respiratory manifestations Plan #Enterococcal bacteremia #Recent influenza A with bronchitis and superimposed bacterial pneumonia #Acute on recurrent mechanical fall with multijoint discomfort #End-stage renal disease #anemia of chronic disease from ESRD: #Chronic congestive heart failure with preserved ejection fraction #Diabetes mellitus type II #Seizure disorder #Dyslipidemia #Class III obesity with BMI of 40.5 #Chronic thrombocytopenia Medications at Discharge Home Medications lacosamide 100 mg tablet (Vimpat) 100 mg PO BID seizures 02/22/21 latanoprost 0.005 % eye drops (Xalatan) 1 drp EACH EYE QPM eyes 08/16/21 insulin glargine 100 unit/mL (3 mL) subcutaneous pen (Lantus Solostar U-100 Insulin) 15 unit (0.15 mL) subcut BID DM #0 mL 08/17/21 omeprazole 20 mg capsule,delayed release 20 mg PO DAILY GERD #90 caps 02/22/22 aspirin 81 mg tablet,delayed release 81 mg PO DAILY HEALTH #90 tabs 03/14/22 calcium acetate(phosphat bind) 667 mg capsule 667 mg PO TIDCM vitamin 04/13/22 cholecalciferol (vitamin D3) 125 mcg (5,000 unit) tablet (Vitamin D3) 125 mcg PO KELLOGG vitamin 04/15/22 insulin lispro 100 unit/mL subcutaneous pen 1 sliding scale dose subcut USEASDIRECTD BLOOD SUGARS 04/15/22 gabapentin 100 mg capsule 200 mg PO BID NERVE PAIN #180 caps 05/11/22 acetaminophen 325 mg capsule 650 mg PO ONCE PRN Pain 05/20/22 atorvastatin 40 mg tablet 40 mg PO QHS CHOLESTEROL 06/24/22 midodrine 10 mg tablet 10 mg PO BID bp 06/24/22 nephrovite 1 tablet PO 1XD SUPPLEMENT 06/24/22 trazodone 50 mg tablet 25 mg PO QHS SLEEP 06/24/22 azithromycin 500 mg tablet 500 mg PO DAILY 7 days #7 tabs 07/02/22 linezolid 600 mg tablet 600 mg PO Q12H 7 days #13 tabs 07/02/22 Hospital Course Procedures 2-D Echocardiogram Summary of Care Provided Minutes Spent on Discharge: 35 Hospital Course: 75-year-old female with history of chronic diastolic CHF, chronic hyponatremia, chronic anemia, end-stage renal disease on dialysis Monday and Monday, type 2 diabetes mellitus, seizure disorder who was recently discharged 06/24/2022 following admission for initially suspected UTI as well as influenza but she left AMA secondary to her self-reported frustration. She represented 06/28/2022 with mechanical fall the day prior to presentation and landed on her knees and hip with ongoing discomfort. In the ED it was noted that her recent blood culture from the prior admission had now resulted with enteric coccus and IV vancomycin administered. This admission she was also found to have a positive Legionella and strep pneumo urine antigens. Infectious disease consulted and she was on vancomycin, Rocephin, is a throw and repeat blood cultures were obtained and were no growth to date and echocardiogram with no vegetation. Patient stable and okay to transition to oral antibiotics. She was evaluated by physical therapy and long term facility was recommended, patient agreeable. On day of discharge she feels her breathing is fair, does have some generalized pain, no other complaints at this time. DISCHARGE INSTRUCTIONS PLEASE READ ? Your sodium was somewhat low during admission, this has been moderately low in the past as well. This may be due to to an infection with Legionella but would benefit from being monitored upon discharge. Repeat BMP in 2 days ?Antibiotic regimen through 07/08/21: Linezolid 600 mg twice daily and is a throw 500 mg daily, you can take 1 dose of linezolid tonight followed by twice daily through the sixth, you will need a dose of azithromycin tonight followed by daily through the sixth ?She will need to continue dialysis Monday, Monday, Monday ?You had a CT scan which showed some swelling in the left breast with left axillary adenopathy, this will need close outpatient follow-up to rule out mal ignancy, there is also a small nodule in the left upper lobe and CT follow-up is recommended to confirm resolution and rule out other etiology. Would recommend this is set up as soon as possible. Physical Exam Const alert Constitutional Narrative: Oriented HEENT normocephalic and head/scalp atraumatic Eyes Eyes Narrative: EOM grossly intact, anicteric Neck supple Resp normal respiratory effort Resp Narrative: Difficult to auscultate secondary to body habitus Cardio regular rate and regular rhythm GI soft to palpation, non-tender and non-distended Extremity Extremity Narrative: Moving all extremities Neuro Neuro Narrative: No overt focal deficits appreciated Psych Psych Narrative: Cooperative Weight / BMI Weight Weight: 99 kg Body Mass Index (BMI) 44.1 ABG / Lab / Microbiology Data Result Diagrams: 07/02/22 06:18 07/02/22 06:18 Laboratory: Laboratory Results - last 24 hr 07/01/22 16:05: POC Glucose 233 H 07/01/22 20:27: POC Glucose 173 H 07/02/22 03:01: POC Glucose 242 H 07/02/22 06:18: Random Vancomycin 25.7 H 07/02/22 06:18: WBC 4.9, RBC 3.02 L, Hgb 10.5 L, Hct 33.1 L, MCV 109.6 H, MCH 34.8 H, MCHC 31.7 L, RDW Std Deviation 59.3 H, RDW Coeff of [place] 15.0 H, Plt Count 98 L, MPV 10.7, Immature Gran % (Auto) 0.800, Neut % (Auto) 68.7, Lymph % (Auto) 9.1 L, [place] % (Auto) 16.3 H, Eos % (Auto) 4.5, Baso % (Auto) 0.6, Absolute Neuts (auto) 3.3, Absolute Lymphs (auto) 0.44 L, Nucleated RBC % 1.2, Differential Comment SCANNED 07/02/22 06:18: Sodium 129 L, Potassium 5.0, Chloride 94 L, Carbon Dioxide 29.0, Anion Gap 6, BUN 46 H, Creatinine 4.19 H, Estim Creat Clear Calc 8.20, Est GFR (MDRD) Af Amer 13 L, Est GFR (MDRD) Non-Af 11 L, BUN/Creatinine Ratio 11.0, Glucose 243 H, Calcium 8.6, Total Bilirubin 1.00, AST 22, ALT 22, Alkaline Phosphatase 88, Total Protein 7.0, Albumin 3.1 L, Globulin 3.9, Albumin/Globulin Ratio 0.8 L 07/02/22 06:23: POC Glucose 237 H 07/02/22 12:09: POC Glucose 205 H Microbiology: Microbiology 07/02/22 12:31 Nasal Secretion SARS-CoV-2 Antigen (Rapid) - Final 06/28/22 23:05 Blood Culture (Wb) - Right Hand Blood Culture - Preliminary No growth in 48 hours. 06/28/22 22:45 Blood Culture (Wb) - Left Wrist Blood Culture - Preliminary No growth in 48 hours. 06/28/22 20:45 Urine Catheter - Catheter Urine Culture - Final Yeast, not Tuyet albicans 06/28/22 23:50 Mucosa - Nasopharyngeal Respiratory Panel (PCR) - Final 06/28/22 20:45 Urine Catheter - Nicole Legionella Antigen - Final Legionella Antigen 06/28/22 20:45 Urine Catheter - Catheter Streptococcus pneumoniae Antigen (M - Final Streptococcus pneumonia Ag D/C Instructions Discharge Diet: Renal Diet Meaningful Use Info Meaningful Use Diagnoses (Choose all that apply): None applicable Discharge Plan Admission Admit Date/Time: 06/28/22 22:20 Primary Reason for Your Visit: Fall Attending Provider: Lizabeth Willis Primary Care Provider: Gissel Arriola Consulting Providers: Osman Blanton ; Dinesh Vaughan ; Christine Steward Instructions Patient Instructions: ED Fall Prevention Additional Instructions / Restrictions: DISCHARGE INSTRUCTIONS PLEASE READ ? Your sodium was somewhat low during admission, this has been moderately low in the past as well. This may be due to to an infection with Legionella but would benefit from being monitored upon discharge. Repeat BMP in 2 days ?Antibiotic regimen through 07/08/21: Linezolid 600 mg twice daily and is a throw 500 mg daily, you can take 1 dose of linezolid tonight followed by twice daily through the sixth, you will need a dose of azithromycin tonight followed by daily through the sixth ?She will need to continue dialysis Monday, Monday, Monday ?You had a CT scan which showed some swelling in the left breast with left axillary adenopathy, this will need close outpatient follow-up to rule out malignancy, there is also a small nodule in the left upper lobe and CT follow-up is recommended to confirm resolution and rule out other etiology. Would recommend this is set up as soon as possible. -Please call your primary care provider's office upon discharge to schedule a hospital follow up within 1 week. -For any concerning signs or symptoms please call 911 or proceed to the nearest emergency department Discharge Orders/Prescriptions Prescriptions: New linezolid 600 mg tablet 600 mg PO Q12H 7 Days Qty: 13 0RF azithromycin 500 mg tablet 500 mg PO DAILY 7 Days Qty: 7 0RF Continued insulin lispro 100 unit/mL insulin pen 1 sliding scale dose subcut USEASDIRECTD Rx Instructions: 3-5 units SQ before meals acetaminophen 325 mg capsule 650 mg PO ONCE PRN (Reason: Pain) lacosamide [Vimpat] 100 mg tablet 100 mg PO BID calcium acetate(phosphat bind) 667 mg capsule 667 mg PO TIDCM latanoprost [Xalatan] 0.005 % Drops 1 drp EACH EYE QPM insulin glargine [Lantus Solostar U-100 Insulin] 100 unit/mL (3 mL) insulin pen 15 unit subcut BID Qty: 0 0RF cholecalciferol (vitamin D3) [Vitamin D3] 125 mcg (5,000 unit) tablet 125 mcg PO KELLOGG atorvastatin 40 mg tablet 40 mg PO QHS midodrine 10 mg tablet 10 mg PO BID Rx Instructions: 10 mg orally BID; do not give last dose of day after 6PM or within 4 hrs of bedtime nephrovite 1 tablet PO 1XD Rx Instructions: daily trazodone 50 mg Tablet 25 mg PO QHS omeprazole 20 mg capsule,delayed release(DR/EC) 20 mg PO DAILY Qty: 90 1RF aspirin 81 mg tablet,delayed release (DR/EC) 81 mg PO DAILY Qty: 90 1RF gabapentin 100 mg capsule 200 mg PO BID Qty: 180 3RF Referrals / Follow Up: Gissel Arriola MD [Primary Care Provider] - Within 1 Week Disposition Disposition (needs filled in before D/C Order can be placed): [facility] Facility Charges/Coding Visit Charges Inpatient E&M: 09790 Disch Hosp
--- NOTE | 2022-07-02 14:14 | NURSING ---
report called to [facility] for transfer, Physicians to pick-up @ 0051
--- NOTE | 2022-07-02 14:24 | DIALYSIS ---
Hemodialysis x 4 hours completed. -3500ml off. Tolerated well. Stable t/o. See HD flowsheet for details. Hemostasis obtained, gauze/tape applied. Report to Silvia MALDONADO
== END 2022-07-02 14:50 | disposition skilled nursing facility (03) | DRG 871 ==
LOC: ED 22:19 → MS3 06-29 00:55 → MS2 06-29 09:17
PROVIDERS: Internal Medicine; Physician Assistant; Admitting Provider Family Medicine; Emergency Provider Student in an Organized Health Care Education/Training Program; PCP Internal Medicine; Visit Provider Internal Medicine
DX: R78.81 Bacteremia (principal); N18.6 End stage renal disease; G93.41 Metabolic encephalopathy; J18.9 Pneumonia, unspecified organism; I13.2 Hypertensive heart and chronic kidney disease with heart failure and with stage 5 chronic kidney disease, or end stage renal disease; J91.8 Pleural effusion in other conditions classified elsewhere; I50.32 Chronic diastolic (congestive) heart failure; Z68.41 Body mass index [BMI] 40.0-44.9, adult; J44.0 Chronic obstructive pulmonary disease with (acute) lower respiratory infection; N30.00 Acute cystitis without hematuria; D69.6 Thrombocytopenia, unspecified; D63.1 Anemia in chronic kidney disease; E11.22 Type 2 diabetes mellitus with diabetic chronic kidney disease; E11.42 Type 2 diabetes mellitus with diabetic polyneuropathy; G40.909 Epilepsy, unspecified, not intractable, without status epilepticus; J44.9 Chronic obstructive pulmonary disease, unspecified; Z79.4 Long term (current) use of insulin; F31.9 Bipolar disorder, unspecified; E11.65 Type 2 diabetes mellitus with hyperglycemia; E66.01 Morbid (severe) obesity due to excess calories; Z99.2 Dependence on renal dialysis; I70.0 Atherosclerosis of aorta; J10.1 Influenza due to other identified influenza virus with other respiratory manifestations; E78.5 Hyperlipidemia, unspecified; K21.9 Gastro-esophageal reflux disease without esophagitis; M19.90 Unspecified osteoarthritis, unspecified site; G47.33 Obstructive sleep apnea (adult) (pediatric); F41.1 Generalized anxiety disorder; Z86.16 Personal history of COVID-19; Z79.82 Long term (current) use of aspirin; Z60.2 Problems related to living alone; M54.50 Low back pain, unspecified; Z87.891 Personal history of nicotine dependence; B95.2 Enterococcus as the cause of diseases classified elsewhere; I34.81 Nonrheumatic mitral (valve) annulus calcification; Z66 Do not resuscitate; Z91.81 History of falling
CPT/HCPCS: 36415; 71045; 71260; 72100; 72220; 73502; 73564; 80048; 80053; 80202; 81001; 82962; 84145; 85025; 87040; 87086; 87088; 87449; 87633; 87811; 90937; 93005; 93308; 94640; 97162; 97165; 99251; 99285; J7030; J7040; J7050; P9612; Q9957; Q9967; A4216; C8924; G0257; G0463

== ENCOUNTER 2022-08-01 17:35 | Observation (INO) | payer MEDICARE, MEDICAID, SELFPAY ==
[2022-08-01] VITALS (9 sets, daily range): BP systolic 111–133; BP diastolic 42–63; PULSE 67–79; RESP 16–25; TEMP 36.3–37.2; O2SAT 90–100; BMI 43.4; BMI 41.6
--- NOTE | 2022-08-01 17:45 | EKG12_ITS ---
Test Reason : GERNAL Blood Pressure : / mmHG Vent. Rate : 070 BPM Atrial Rate : 070 BPM P-R Int : 176 ms QRS Dur : 048 ms QT Int : 374 ms P-R-T Axes : 042 076 063 degrees QTc Int : 403 ms Normal sinus rhythm Low voltage QRS Nonspecific ST and T wave abnormality Abnormal ECG Confirmed by DUTCH BOWMAN, ANTONIA ([id number]), legal editor RADHA TAPIA ([id number]) on 08/04/2022 10:09:05 AM Referred By: Confirmed By:ANTONIA JUDD MD
--- NOTE | 2022-08-01 17:46 | CT_ITS ---
INDICATION: vertigo EXAMINATION: CTA HEAD - CTA Head and Neck W/ Contrast Injection (and W/O Contrast Images if performed) TECHNIQUE: [place]/head CT angiogram protocol was performed following IV contrast. 3D reconstructions were reviewed. A radiation dose optimization technique was used for this scan. : CTA examination of the neck obtained with standard protocol including axial postcontrast imaging with additional planar and three-dimensional reconstructions. Noncontrast imaging of the head also submitted. IV Contrast dosage and agent: 100 mL [id number] COMPARISON: Noncontrast CT of the head dated 02/22/2010, CTA examination of 01/03/2022 FINDINGS: CT HEAD: 1. The cerebral parenchyma, ventricular system and gyral pattern are unchanged. Mild involutional changes and chronic microvascular deep white matter disease present. No intraparenchymal mass, hemorrhage, or acute territorial infarct. The cerebellum, brainstem, basilar and suprasellar cisterns have normal appearance. 2. Extensive carotid vascular calcifications bilaterally. 3. Orbits and paranasal sinuses have normal appearance. CTA [place]: PETROUS AND CAVERNOUS CAROTID ARTERIES: Extensive vascular calcifications involving the cavernous carotid vessels without stenosis occlusion or filling defects. No aneurysmal dilatation. SUPRACLINOID CAROTID ARTERIES: Normal appearance the supraclinoid carotid vessels bilaterally, the visualized ophthalmic arteries have normal appearance. ANTERIOR CEREBRAL AND A- COMM: Normal appearance the proximal and distal segments of the anterior cerebral circulation bilaterally. MIDDLE CEREBRAL ARTERIES: Normal appearance the proximal and distal segments of the middle cerebral circulation bilaterally. Normal appearance of the M4 cortical distribution bilaterally. INTRACRANIAL VERTEBRAL ARTERIES AND BASILAR ARTERY: Normal appearance of the intracranial course of the vertebral arteries bilaterally, normal appearance of basilar artery to the level of the bifurcation. There is a dominant RIGHT vertebral artery. POSTERIOR CEREBRAL ARTERIES: Normal appearance proximal distal segments of posterior cerebral circulation bilaterally. DURAL SINUSES: Normal, no filling defects noted CTA Neck: TECHNIQUE: CTA examination of the neck obtained with standard protocol including axial postcontrast imaging with additional planar and three-dimensional reconstructions. Aortic arch: [Normal appearance of the aortic arch and origin the great vessels.] Extensive vascular calcifications are present. Right carotid system: There is normal appearance RIGHT common carotid, RIGHT internal carotid arteries, and the bifurcation. Normal appearance of the external carotid circulation on the RIGHT. Scattered calcifications present at the carotid bulb without stenosis or Left carotid system: Moderate calcifications at the level of the LEFT carotid bulb and bifurcation with findings consistent with a mild (less than 50%) narrowing. No hemodynamically significant stenosis noted. Normal caliber internal carotid artery to the level of the skull base. LEFT ECA has normal appearance. Vertebral arteries: There is normal appearance of the vertebral arteries bilaterally without focal stenosis or occlusion. There is a dominant RIGHT vertebral artery. Airway and soft tissues of the neck: There is normal appearance of the musculofascial planes of suprahyoid and infrahyoid neck. Normal appearance of the visualized airway. Normal appearance the visualized thyroid without masses or nodules noted. Cervical spine: Normal appearance of bony elements of the cervical spine. No focal stenosis or occlusion involving the cervical spinal canal. OTHER: There is moderate to large RIGHT effusion, patchy areas of interstitial infiltrate at both lung apices. CT/STROKE CTA Head AND Neck W/Con IMPRESSION: NONCONTRAST CT OF THE HEAD: 1. Stable noncontrast CT examination the head without evidence of intraparenchymal mass, hemorrhage, or acute territorial infarct. 2. Mild involutional change and chronic deep white matter disease. CTA OF [place]: 1. Extensive carotid vascular calcifications without focal stenosis occlusion or aneurysmal dilatation. No intraluminal filling defects. 2. No intracranial evidence of LVO. CTA OF THE CERVICAL VASCULATURE: 1. Scattered calcifications involving the carotid bulbs bilaterally greater on LEFT than RIGHT. On the LEFT there are findings consistent with a mild (less than 50%) narrowing. 2. No hemodynamic significant stenosis in the cervical carotid or vertebral circulation level of the skull base. 3. Incidental note of large RIGHT effusion and patchy areas of interstitial infiltrate at both lung apices. Electronically Signed: Colton Ren MD at 18:38 EST ,
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
[2022-08-01] MEDS: Ondansetron 4 MG/2 ML Vial IV (17:56)
--- NOTE | 2022-08-01 18:05 | RAD_ITS ---
INDICATION: Neuro deficit, acute, stroke suspected EXAMINATION/TECHNIQUE: X-RAY - XR Chest 1 View COMPARISON: 06/28/2022 FINDINGS: LIFE-SUPPORT AND LINES: 1. None HEART AND VESSELS: Cardiac silhouette is enlarged without significant change. No randolph congestive failure. LUNGS AND PLEURAL SPACES: Atelectasis and coarse interstitial markings in the perihilar and infrahilar regions bilaterally. There is mild volume loss. There are small bilateral effusions. Allowing for differences in inspiration there has been negligible change. No pulmonary mass is noted. MEDIASTINUM AND HILAR REGIONS: No masses adenopathy noted. No areas of calcification. Visualized upper airway is normal in position. BONY ELEMENTS: No acute bony changes noted. RAD/Chest 1 View IMPRESSION: 1. Shallow inspiration, bibasilar and perihilar atelectasis without significant change. Small bilateral effusions are present. 2. Allowing for differences in inspiration there has been negligible change. 3. Borderline cardiomegaly without evidence of congestive failure. Electronically Signed: Colton Ren MD at 18:25 EST ,
[2022-08-01 18:17] LABS: Absolute Lymphocyte Count 0.67 X10^3/uL (0.83-4.51); Absolute Neutrophil Count 2.7 X10^3/uL (2.0-7.7); Basophil# 0.04 X10^3/uL; Eosinophil# 0.14 X10^3/uL; Eosinophils% 3.4 % (0-5); Hematocrit 32.5 % (37-47); Hemoglobin 10.3 g/dL (12.0-15.0); Lymphocyte # 0.67 X10^3/ul (0.83-4.51); Lymphocyte % 16.1 % (19-41); Mean Corp Hgb Conc 31.7 g/dL (32-36); Mean Corpuscular Hgb 34.7 pg (27.0-32.0); Mean Corpuscular Volume 109.4 fL (81-99); Mean Platelet Vol. 10.4 fl (6.2-12.0); Monocyte# 0.59 X10^3/uL; Monocyte% 14.1 % (0-10); NRBC Flagged by Analyzer 0 % (0-5); Neutrophil # 2.72 X10^3/uL (2.7-7.7); Neutrophil % 65.2 % (47-70); POSITIVE COUNT YES; POSITIVE MORPHOLOGY YES; Platelet Count 87 K/mm3 (150-450); RBC Distribution Width CV 17.1 % (11.6-14.6); RBC Distribution Width SD 68.4 fl (35.1-43.9); Red Blood Count 2.97 M/mm3 (4.2-5.4); White Blood Count 4.2 K/mm3 (4.4-11.0)
[2022-08-01 18:20] LABS: Differential Indicated SCAN CRITERIA MET
[2022-08-01 18:24] LABS: Anion Gap 9 (5-15); BUN 32 mg/dL (7-18); BUN/Creat Ratio 8.6 RATIO (10-20); Calcium,Total 8.6 mg/dL (8.5-10.1); Chloride 97 mmol/L (98-107); Creatinine, Serum 3.73 mg/dL (0.55-1.02); EST Glomerular Filtration Rate 13 mL/min (>60); Est Glom Filt Rate - Afr Amer 15 mL/min (>60); Estimated Creatinine Clearance 9.22 ml/min; Glucose 264 mg/dL (74-106); International Normalized Ratio 1.1; Partial Thromboplast Time 33.9 Seconds (24.1-36.2); Potassium 4.7 mmol/L (3.5-5.1); Prothrombin Time (Protime)PT. 14.2 SECONDS (11.7-14.9); Sodium Level 135 mmol/L (136-145); Troponin-I HS 14 pg/mL (3.0-54.0)
--- NOTE | 2022-08-01 19:15 | ED.RN ---
PER DR FRAGA, [facility] DISCONTINUED
[2022-08-01] MEDS: Metoclopramide 10 MG/2 ML Vial 5 MG IV (19:34)
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
[2022-08-01 23:27] LABS: Magnesium 2.1 mg/dL (1.6-2.6)
[2022-08-02] VITALS (11 sets, daily range): BP systolic 104–122; BP diastolic 50–86; PULSE 63–82; RESP 16–18; TEMP 36.3–36.8; O2SAT 87–100
[2022-08-02] MEDS: 0.9% Normal Saline 1,000 ML 75 ML IV (00:09)
[2022-08-02] MEDS: Meclizine 12.5 MG Tablet PO (01:44)
[2022-08-02 05:24] LABS: Absolute Lymphocyte Count 0.43 X10^3/uL (0.83-4.51); Absolute Neutrophil Count 3.2 X10^3/uL (2.0-7.7); Basophil# 0.04 X10^3/uL; Basophil% 0.9 % (0-1); Eosinophil# 0.12 X10^3/uL; Eosinophils% 2.8 % (0-5); Hematocrit 30.9 % (37-47); Hemoglobin 9.4 g/dL (12.0-15.0); Lymphocyte # 0.43 X10^3/ul (0.83-4.51); Lymphocyte % 9.9 % (19-41); Mean Corp Hgb Conc 30.4 g/dL (32-36); Mean Corpuscular Hgb 34.2 pg (27.0-32.0); Mean Corpuscular Volume 112.4 fL (81-99); Mean Platelet Vol. 10.8 fl (6.2-12.0); Monocyte# 0.57 X10^3/uL; Monocyte% 13.1 % (0-10); NRBC Flagged by Analyzer 0 % (0-5); Neutrophil # 3.16 X10^3/uL (2.7-7.7); Neutrophil % 72.8 % (47-70); POSITIVE COUNT YES; POSITIVE DIFFERENTIAL YES; POSITIVE MORPHOLOGY YES; Platelet Count 80 K/mm3 (150-450); RBC Distribution Width CV 17.3 % (11.6-14.6); RBC Distribution Width SD 71.1 fl (35.1-43.9); Red Blood Count 2.75 M/mm3 (4.2-5.4); White Blood Count 4.3 K/mm3 (4.4-11.0)
[2022-08-02 05:46] LABS: ALB/GLOB Ratio 0.8 RATIO (0.9-2.4); AST(SGOT) 34 U/L (15-37); Alanine Aminotransfer ALT/SGPT 22 U/L (13-56); Albumin, Serum 2.8 g/dL (3.2-5.0); Alkaline Phosphatase 108 U/L (45-117); Anion Gap 9 (5-15); BUN 34 mg/dL (7-18); BUN/Creat Ratio 8.5 RATIO (10-20); Calcium,Total 8.4 mg/dL (8.5-10.1); Chloride 97 mmol/L (98-107); Cholesterol 60 mg/dL (200); EST Glomerular Filtration Rate 12 mL/min (>60); Est Glom Filt Rate - Afr Amer 14 mL/min (>60); Estimated Creatinine Clearance 8.59 ml/min; Globulin 3.5 g/dL (2.2-4.2); Glucose 209 mg/dL (74-106); High Density Lipoprotein 35 mg/dL; Potassium 5.2 mmol/L (3.5-5.1); Protein, Total 6.3 g/dL (6.4-8.2); Sodium Level 136 mmol/L (136-145); Thyroid Stim Hormone (TSH) 0.58 uIU/mL (0.358-3.74); Triglycerides 51 mg/dL; Very Low Density Lipoprotein 10 mg/dL (5-40)
[2022-08-02 05:57] LABS: Differential Indicated SCAN CRITERIA MET
[2022-08-02 05:58] LABS: Anisocytosis 2+; Differential Comment SCANNED; Hypochromasia 1+; Macrocytosis 1+
[2022-08-02 05:59] LABS: Ovalocyte RARE; Polychromasia RARE
[2022-08-02 06:00] LABS: Microcytosis 1+
[2022-08-02 06:06] LABS: Procalcitonin 0.24 ng/mL (0.00-0.09)
[2022-08-02 07:26] LABS: Bedside Glucose 194 mg/dL (74-106)
[2022-08-02] MEDS: Insulin Lispro 100 UNIT/ML INSULN.PEN SC ×3 (07:40→22:58)
[2022-08-02 07:53] LABS: Hemoglobin A1c 6.9 % (3.8-5.6)
[2022-08-02] MEDS: Heparin Injection (Vial) 5,000 UNIT/ML VIAL 5000 UNIT SC ×2 (11:37→22:59)
[2022-08-02] MEDS: Pantoprazole Sodium 20 MG Tablet PO (11:37)
[2022-08-02] MEDS: Aspirin E.C. 81 MG Tablet PO (11:37)
[2022-08-02] MEDS: Calcium Acetate 667 MG Capsule PO ×2 (11:37→16:38)
[2022-08-02] MEDS: Gabapentin 100 MG Capsule 200 MG PO ×2 (11:37→22:56)
[2022-08-02] MEDS: Midodrine HCl 5 MG Tablet 10 MG PO ×2 (11:37→16:38)
[2022-08-02 11:45] LABS: Bedside Glucose 185 mg/dL (74-106)
--- NOTE | 2022-08-02 12:00 | MRI_ITS ---
HISTORY: CVA. TECHNIQUE: Multiplanar and multisequence MR images of the brain were obtained without contrast. 278 images. COMPARISON: CT prior day. FINDINGS: Moderate motion artifact lowers the sensitivity of examination. BRAIN PARENCHYMA: Mild periventricular white matter changes. No abnormal focus of restricted diffusion. No acute intracranial hemorrhage identified. CSF SPACES: Mild generalized volume loss. No significant midline shift or other mass effect.No extra-axial fluid collection. PARANASAL SINUSES AND MASTOID AIR CELLS: No significant air fluid levels. ORBITS: Bilateral lens resections. MRI/Brain without Contrast IMPRESSION: Motion artifact. No evidence for acute infarct. Mild chronic involutional and white matter changes. Electronically Signed: Drea Rodriguez MD at 15:58 EST ,
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
[2022-08-02 12:34] LABS: Pathologist Review Reviewed
--- NOTE | 2022-08-02 12:42 | DIALYSIS ---
Hemodialysis today. Tx stopped early due to pt bending her left arm and infiltration of venous needle. Dr Steward aware. UF -1024mL removed. [place] removed stasis achieved. Dressings applied. Pt stable and alert. See dialysis flowsheet for details
[2022-08-02] MEDS: LORazepam 2 MG/ML Syringe 1 MG IV (12:48)
[2022-08-02] MEDS: 0.9% Saline Lock 10 ML Syringe IV (12:48)
--- NOTE | 2022-08-02 13:38 | PN.HOSP_ITS ---
Subjective Subjective No issues overnight, receiving dialysis this morning during my exam. Objective Data Objective Data Vital Signs: Vital Signs Temp Pulse Resp BP Pulse Ox O2 Del Method O2 Flow Rate 98.3 F 76 16 114/86 H 96 Nasal Cannula 3 08/02/22 10:00 08/02/22 10:00 08/02/22 10:00 08/02/22 10:00 08/02/22 10:00 08/02/22 10:00 08/02/22 10:00 Oxygen Flow Rate (L/min) 3 Oxygen Delivery Method Nasal Cannula Weight: 213 lb 2.992 oz Body Mass Index (BMI) 41.6 Intake & Output: Intake and Output for Last 24 Hours 08/01/22 08/02/22 08/03/22 03:59 03:59 03:59 Intake Total 60 / 60 908.75 / 908.75 Output Total 0 / 0 0 / 0 Balance 60 908.75 / 908.75 Lab / Micro Data Result Diagrams: 08/02/22 05:06 08/02/22 05:06 Labs: Laboratory Results - last 24 hr 08/01/22 17:45: WBC 4.2 L, RBC 2.97 L, Hgb 10.3 L, Hct 32.5 L, MCV 109.4 H, MCH 34.7 H, MCHC 31.7 L, RDW Std Deviation 68.4 H, RDW Coeff of Kusum 17.1 H, Plt Count 87 L, MPV 10.4, Immature Gran % (Auto) 0.200, Neut % (Auto) 65.2, Lymph % (Auto) 16.1 L, [place] % (Auto) 14.1 H, Eos % (Auto) 3.4, Baso % (Auto) 1.0, Absolute Neuts (auto) 2.7, Absolute Lymphs (auto) 0.67 L, Nucleated RBC % 0, Differential Comment 08/01/22 17:45: PT 14.2, INR 1.1, APTT 33.9 08/01/22 17:45: Sodium 135 L, Potassium 4.7, Chloride 97 L, Carbon Dioxide 29.0, Anion Gap 9, BUN 32 H, Creatinine 3.73 H, Estim Creat Clear Calc 9.22, Est GFR (MDRD) Af Amer 15 L, Est GFR (MDRD) Non-Af 13 L, BUN/Creatinine Ratio 8.6 L, Glucose 264 H, Calcium 8.6, Troponin I High Sens 14 08/01/22 17:45: Phosphorus 3.0, Magnesium 2.1 08/02/22 05:06: Procalcitonin 0.24 H 08/02/22 05:06: WBC 4.3 L, RBC 2.75 L, Hgb 9.4 L, Hct 30.9 L, MCV 112.4 H, MCH 3 4.2 H, MCHC 30.4 L, RDW Std Deviation 71.1 H, RDW Coeff of Kusum 17.3 H, Plt Count 80 L, MPV 10.8, Immature Gran % (Auto) 0.500, Neut % (Auto) 72.8 H, Lymph % (Auto) 9.9 L, [place] % (Auto) 13.1 H, Eos % (Auto) 2.8, Baso % (Auto) 0.9, Absolute Neuts (auto) 3.2, Absolute Lymphs (auto) 0.43 L, Nucleated RBC % 0, Differential Comment SCANNED, Diff Path Review Reviewed, Polychromasia RARE, Hypochromasia 1+, Anisocytosis 2+, Microcytosis 1+, Macrocytosis 1+, Ovalocytes RARE 08/02/22 05:06: Sodium 136, Potassium 5.2 H, Chloride 97 L, Carbon Dioxide 30.0, Anion Gap 9, BUN 34 H, Creatinine 4.00 H, Estim Creat Clear Calc 8.59, Est GFR (MDRD) Af Amer 14 L, Est GFR (MDRD) Non-Af 12 L, BUN/Creatinine Ratio 8.5 L, Glu cose 209 H, Calcium 8.4 L, Total Bilirubin 1.10 H, AST 34, ALT 22, Alkaline Phosphatase 108, Total Protein 6.3 L, Albumin 2.8 L, Globulin 3.5, Albumin/Globulin Ratio 0.8 L, Triglycerides 51, Cholesterol 60, LDL Cholesterol 15, VLDL Cholesterol 10, HDL Cholesterol 35 L, TSH 0.58 08/02/22 05:06: Hemoglobin A1c 6.9 H 08/02/22 07:02: POC Glucose 194 H 08/02/22 11:19: POC Glucose 185 H Radiography Diagnostic Testing: Radiology Impression Head/Neck CTA 08/01/22 17:46 IMPRESSION: NONCONTRAST CT OF THE HEAD: 1. Stable noncontrast CT examination the head without evidence of intraparenchymal mass, hemorrhage, or acute territorial infarct. 2. Mild involutional change and chronic deep white matter disease. CTA OF THE [place]: 1. Extensive carotid vascular calcifications without focal stenosis occlusion or aneurysmal dilatation. No intraluminal filling defects. 2. No intracranial evidence of LVO. CTA OF THE CERVICAL VASCULATURE: 1. Scattered calcifications involving the carotid bulbs bilaterally greater on LEFT than RIGHT. On the LEFT there are findings consistent with a mild (less than 50%) narrowing. 2. No hemodynamic significant stenosis in the cervical carotid or vertebral circulation level of the skull base. 3. Incidental note of large RIGHT effusion and patchy areas of interstitial infiltrate at both lung apices. Electronically Signed: Coltno Ren MD at 18:38 EST Reading Location ID and State: [id number] Tel , Service support , Chest X-Ray 08/01/22 18:05 IMPRESSION: 1. Shallow inspiration, bibasilar and perihilar atelectasis without significant change. Small bilateral effusions are present. 2. Allowing for differences in inspiration there has been negligible change. 3. Borderline cardiomegaly without evidence of congestive failure. Electronically Signed: Colton Ren MD at 18:25 EST , Rhythm Strip Rhythm Strip: Sinus Rhythm Rate: 70 Ectopy: None Physical Exam Narrative General: Alert, Oriented x3, Cooperative, No apparent distress HEENT: Atraumatic, PERRLA, EOMI, Normocephalic Oral: Moist Mucosa Neck: Supple, No JVD Lungs: Diminished, Normal air movement, No rhonchi, No wheeze, No rales Cardiovascular: Regular rate, Regular Rhythm, Normal S1, Normal S2, No murmurs Abdomen: Soft, Non Tender, Non-Distended, No Hepato-splenomegaly Extremities: No edema, Capillary Refill Less than 3 Seconds Skin: No rashes, No breakdown Musculoskeletal: No Tenderness to Palpation of Joints or Extremities Neurological: Cranial nerves II-XII grossly intact, Motor Exam 5/5 strength throughout, Sensory exam intact to light touch and pain Psych/Mental Status: Normal Affect, Appropriate Assessment & Plan Assessment/Plan (1) Altered mental status: PLAN: Plan 1. Acute encephalopathy with a headache and possible vertigo/history of seizure disorder ? Encephalopathy has resolved ? EEG is unremarkable, no seizure focus ? She has had multiple recent echoes, currently awaiting MRI ? Continue with Vimpat 2. Chronic diastolic CHF/paroxysmal A. fib/HTN/HLD ? Blood pressures are little bit on the low side, she is not on any blood pressure medications at home ? Continue with the ? Continue with Lipitor and aspirin 3. DM2 with neuropathy/ESRD on dialysis MWF/morbid obesity/anemia of chronic disease due to her renal failure ? Appreciate nephrology's assistance ? Continue with insulin as well as Accu-Cheks ACH S ? We will make adjustments as necessary ? Discussed weight loss and lifestyle and ? Hemoglobin is at baseline DVT: Heparin Charges/Coding Visit Charges Inpatient E&M: 19673 Subs Hosp L2
--- NOTE | 2022-08-02 15:22 | CASEMGMT ---
RN CM attempted to complete VILLANUEVA form with patient. Patient sleeping, peacefully and unable to wake at this time. RN CM will attempt to complete VILLANUEVA at later time.
[2022-08-02 17:25] LABS: Bedside Glucose 155 mg/dL (74-106)
[2022-08-02] MEDS: Epoetin Alfa epbx 10,000 UNITS/ML 10000 UNIT SC (18:20)
[2022-08-02] MEDS: Latanoprost 0.005% 1 Bottle 1 DRP EACH EYE (22:56)
[2022-08-02] MEDS: Atorvastatin Calcium 40 MG Tablet PO (22:56)
[2022-08-02] MEDS: Insulin Glargine-YFGN 100 UNIT/ML Pen 15 UNIT SC (22:57)
[2022-08-02 23:25] LABS: Bedside Glucose 207 mg/dL (74-106)
[2022-08-03 04:30] VITALS: BP 122/41; PULSE 73; RESP 16; TEMP 36.7; O2SAT 92
[2022-08-03 04:52] LABS: Absolute Lymphocyte Count 0.66 X10^3/uL (0.83-4.51); Absolute Neutrophil Count 3.4 X10^3/uL (2.0-7.7); Basophil# 0.08 X10^3/uL; Basophil% 1.6 % (0-1); Eosinophil# 0.16 X10^3/uL; Eosinophils% 3.1 % (0-5); Hematocrit 29.7 % (37-47); Hemoglobin 9.3 g/dL (12.0-15.0); Lymphocyte # 0.66 X10^3/ul (0.83-4.51); Mean Corp Hgb Conc 31.3 g/dL (32-36); Mean Corpuscular Hgb 35.2 pg (27.0-32.0); Mean Corpuscular Volume 112.5 fL (81-99); Mean Platelet Vol. 10.6 fl (6.2-12.0); Monocyte# 0.74 X10^3/uL; Monocyte% 14.5 % (0-10); NRBC Flagged by Analyzer 0 % (0-5); Neutrophil # 3.44 X10^3/uL (2.7-7.7); Neutrophil % 67.6 % (47-70); POSITIVE COUNT YES; POSITIVE MORPHOLOGY YES; Platelet Count 77 K/mm3 (150-450); RBC Distribution Width CV 17.2 % (11.6-14.6); RBC Distribution Width SD 70.9 fl (35.1-43.9); Red Blood Count 2.64 M/mm3 (4.2-5.4); White Blood Count 5.1 K/mm3 (4.4-11.0)
[2022-08-03 04:58] LABS: Differential Indicated SCAN CRITERIA MET
[2022-08-03 05:15] LABS: Anion Gap 9 (5-15); BUN 30 mg/dL (7-18); BUN/Creat Ratio 7.9 RATIO (10-20); Calcium,Total 8.2 mg/dL (8.5-10.1); Chloride 98 mmol/L (98-107); Creatinine, Serum 3.79 mg/dL (0.55-1.02); EST Glomerular Filtration Rate 12 mL/min (>60); Est Glom Filt Rate - Afr Amer 15 mL/min (>60); Estimated Creatinine Clearance 9.07 ml/min; Glucose 145 mg/dL (74-106); Potassium 5.2 mmol/L (3.5-5.1); Sodium Level 134 mmol/L (136-145)
[2022-08-03 05:54] LABS: Differential Comment SCANNED; Platelet Estimate SLT DEC (ADEQ)
[2022-08-03 05:55] LABS: Anisocytosis 1+; Hypochromasia 1+; Macrocytosis RARE; Microcytosis RARE
[2022-08-03 06:51] LABS: Bedside Glucose 134 mg/dL (74-106)
[2022-08-03 07:20] VITALS: O2SAT 95
[2022-08-03 09:17] VITALS: BP 102/41; PULSE 84; RESP 18; TEMP 36.8; O2SAT 95
[2022-08-03] MEDS: Midodrine HCl 5 MG Tablet 10 MG PO ×2 (09:19→16:44)
[2022-08-03] MEDS: Calcium Acetate 667 MG Capsule PO ×3 (09:19→16:48)
[2022-08-03] MEDS: Sodium Polystyrene Sulfonate 15 GM/60 ML UDC PO (09:19)
[2022-08-03] MEDS: Pantoprazole Sodium 20 MG Tablet PO (09:20)
[2022-08-03] MEDS: Aspirin E.C. 81 MG Tablet PO (09:20)
[2022-08-03] MEDS: Heparin Injection (Vial) 5,000 UNIT/ML VIAL 5000 UNIT SC (09:20)
[2022-08-03] MEDS: Insulin Glargine-YFGN 100 UNIT/ML Pen 15 UNIT SC (09:20)
[2022-08-03] MEDS: Gabapentin 100 MG Capsule 200 MG PO (09:20)
--- NOTE | 2022-08-03 10:00 | CASEMGMT ---
ERICA TREVIÑO Face to Face with patient for initial transition planning/care coordination assessment. ERICA TREVIÑO introduced self and role at [facility]. Patient lying in bed, alert and oriented. Patient willing to participate in assessment and is able to answer all questions appropriately. Care providers, pharmacy, and demographics verified. Patient wishes to discharge home with resumption of HHC. Patient is unsure whom HHC was setup with at discharge from [place]. ERICA TREVIÑO will call and confirm services with [place]. Patient states she has no further needs or concerns at this time. CM to follow for discharge planning needs that may arise. PCP: [facility] Specialists: Bin, cycle analyst; January, substation mechanic; Mary Alice, medical parasitologist Preferred Pharmacy: [place] Insurance: [employer] Prescription Benefit: yes Living Will/HPOA: yes, daughter Beverly Butler LNOK: daughter, son Living Arrangements: Patient lives alone in a 1st floor apartment with no steps to enter. Patient states she is independent at home. Transportation: daughter, [facility] DME/HHC: Patient has shower chair, cane, lift chair, grab bars, walker, rollator, wheelchair, pulse ox, and home oxygen through [facility]. Patient has aide services through [employer] 3hrs/day 3day/week with [facility]. Patient has KAMILA Timmons. Patient attends outpt HD at [facility] TTS 1100 Disposition Plan: Patient to discharge home with resumption of HHC, family support, and follow-up plans in place. Monet IZQUIERDO, RN, CM
--- NOTE | 2022-08-03 10:07 | CASEMGMT ---
ERICA CM in to complete VILLANUEVA form with patient. RN KAMILA explained VILLANUEVA Form to patient, patient voiced understanding. Patient signed VILLANUEVA form and filed in chart. Patient provided with copy of signed VILLANUEVA form. Patient had no further questions or concerns at this time.
[2022-08-03 10:55] VITALS: O2SAT 94
[2022-08-03] MEDS: Insulin Lispro 100 UNIT/ML INSULN.PEN SC (11:17)
[2022-08-03 11:40] LABS: Bedside Glucose 204 mg/dL (74-106)
--- NOTE | 2022-08-03 11:58 | PN.RENAL_ITS ---
Subjective Subjective breathing stable, potassium 5.2. Incomplete tx yesterday. will complete tx today Objective Data Objective Data Vital Signs: Vital Signs Temp Pulse Resp BP Pulse Ox O2 Del Method O2 Flow Rate 98.3 F 84 18 102/41 L 94 Nasal Cannula 2 08/03/22 09:17 08/03/22 09:17 08/03/22 09:17 08/03/22 09:17 08/03/22 10:55 08/03/22 10:55 08/03/22 11:15 Oxygen Flow Rate (L/min) 2 Oxygen Delivery Method Nasal Cannula Weight: 96.4 kg Body Mass Index (BMI) 41.6 Intake & Output: Intake and Output for Last 24 Hours 08/01/22 08/02/22 08/03/22 23:59 23:59 23:59 Intake Total 1728.75 / 1728.75 300 / 300 Output Total 0 / 0 0 / 0 Balance 1728.75 / 1728.75 300 / 300 Lab / Micro Data Result Diagrams: 08/03/22 04:43 08/03/22 04:43 Labs: Laboratory Results - last 24 hr 08/02/22 05:06: Diff Path Review Reviewed 08/02/22 16:36: POC Glucose 155 H 08/02/22 22:54: POC Glucose 207 H 08/03/22 04:43: WBC 5.1, RBC 2.64 L, Hgb 9.3 L, Hct 29.7 L, MCV 112.5 H, MCH 35.2 H, MCHC 31.3 L, RDW Std Deviation 70.9 H, RDW Coeff of [place] 17.2 H, Plt Count 77 L, MPV 10.6, Immature Gran % (Auto) 0.200, Neut % (Auto) 67.6, Lymph % (Auto) 13.0 L, [place] % (Auto) 14.5 H, Eos % (Auto) 3.1, Baso % (Auto) 1.6 H, Absolute Neuts (auto) 3.4, Absolute Lymphs (auto) 0.66 L, Nucleated RBC % 0, Differential Comment SCANNED, Platelet Estimate SLT DEC, Hypochromasia 1+, Anisocytosis 1+, Microcytosis RARE, Macrocytosis RARE 08/03/22 04:43: Sodium 134 L, Potassium 5.2 H, Chloride 98, Carbon Dioxide 27.0, Anion Gap 9, BUN 30 H, Creatinine 3.79 H, Estim Creat Clear Calc 9.07, Est GFR (MDRD) Af Amer 15 L, Est GFR (MDRD) Non-Af 12 L, BUN/Creatinine Ratio 7.9 L, Glucose 145 H, Calcium 8.2 L 08/03/22 06:31: POC Glucose 134 H 08/03/22 11:16: POC Glucose 204 H Radiography Diagnostic Testing: Radiology Impression Brain MRI 08/02/22 12:00 IMPRESSION: Motion artifact. No evidence for acute infarct. Mild chronic involutional and white matter changes. Electronically Signed: Drea Rodriguez MD at 15:58 EST , Rhythm Strip Rhythm Strip: Sinus Rhythm Rate: 70 Ectopy: None Physical Exam Const alert and oriented x3 Resp clear to auscultation bilaterally Extremity no clubbing, cyanosis or edema Assessment & Plan Assessment/Plan (1) ESRD (end stage renal disease) on dialysis: PLAN: dialysis today due to shortened tx yesterday, hyperkalemia. Next dialysis (2) Metabolic encephalopathy: (3) Altered mental status: PLAN: EEG, CT head (4) Hyperkalemia: PLAN: correct with dialysis K 5.2 (5) Anemia, iron deficiency: PLAN: TEMO therapy (6) Hypotension: PLAN: midodrine
--- NOTE | 2022-08-03 13:04 | CHAPLAIN ---
Type of Pastoral Visit _x__ Initial Visit ___ Follow-up Visit ___ On-call Visit ___ General Patient Visit ___ Spiritual Assessment ___ Family Conference ___ Bereavement ___ Rapid Response ___ Code Blue ___ Other (describe below) Pastoral Care Referral From _x__ Patient ___ Family ___ Nurse ___ Physician ___ Traveling Nurse ___ Water Quality Specialist ___ Other (describe below) Sacrament/Intervention _x__ Active listening ___ Anointing ___ Catholic ___ Bereavement ___ Communion ___ Nicolette exploration ___ ___ Life review _x__ Prayer ___ Reconciliation ___ Sacrament of Sick _x__ Supportive presence ___ Wedding ___ Other (describe below) Pastoral Comments patient had dropped her water and ice; assisted patient in clean up and calling for help by staff; pt gives update on her situation; pt requests prayer for support; presence and time to listen given
--- NOTE | 2022-08-03 13:25 | DCINST_ITS ---
Discharge Instructions Diet Discharge Diet: Low fat / Low cholesterol and Renal Diet Activity Discharge Activity: Return to Normal Activity Dressing / Incision Call your doctor if you observe: Fever of 101 or Higher, Shortness of breath, Dizziness, Fainting spells, Swelling in the ankles, Chest pain and Increased palpitations (irregular heartbeat) Follow Up Care Test Results: Test results from this visit will be discussed in further detail at your follow- up appointment, if applicable. Discharge Plan Admission Admit Date/Time: 08/01/22 22:11 Attending Provider: Lazaro Lee Primary Care Provider: Gissel Arriola Consulting Providers: Christine Steward ; Laurie Wilson Instructions Additional Instructions / Restrictions: Follow-up with your PCP in 3 to 5 days and obtain outpatient follow-up for your BMP to monitor your potassium which was elevated to 5.2, he did have dialysis on the day of discharge so hopefully this should be resolved on its own. Discharge Orders/Prescriptions Prescriptions: Continued insulin lispro 100 unit/mL insulin pen 1 sliding scale dose subcut USEASDIRECTD Rx Instructions: 3-5 units SQ before meals acetaminophen 325 mg capsule 650 mg PO ONCE PRN (Reason: Pain) cyclobenzaprine 5 mg tablet 5 mg PO DAILY PRN (Reason: Take 1 hour prior to dialysis) Qty: 10 0RF lacosamide [Vimpat] 100 mg tablet 100 mg PO BID calcium acetate(phosphat bind) 667 mg capsule 667 mg PO TIDCM latanoprost [Xalatan] 0.005 % Drops 1 drp EACH EYE QPM insulin glargine [Lantus Solostar U-100 Insulin] 100 unit/mL (3 mL) insulin pen 15 unit subcut BID Qty: 0 0RF cholecalciferol (vitamin D3) [Vitamin D3] 125 mcg (5,000 unit) tablet 125 mcg PO KELLOGG atorvastatin 40 mg tablet 40 mg PO QHS midodrine 10 mg tablet 10 mg PO BID Rx Instructions: 10 mg orally BID; do not give last dose of day after 6PM or within 4 hrs of bedtime nephrovite 1 tablet PO 1XD Rx Instructions: daily trazodone 50 mg Tablet 25 mg PO QHS omeprazole 20 mg capsule,delayed release(DR/EC) 20 mg PO DAILY Qty: 90 1RF aspirin 81 mg tablet,delayed release (DR/EC) 81 mg PO DAILY Qty: 90 1RF gabapentin 100 mg capsule 200 mg PO BID Qty: 180 3RF Discontinued linezolid 600 mg tablet 600 mg PO Q12H 7 Days Qty: 13 0RF Referrals / Follow Up: Gissel Arriola MD [Primary Care Provider] - Within 1 Week Disposition Disposition (needs filled in before D/C Order can be placed): Home Health Service
--- NOTE | 2022-08-03 14:13 | PHA.DC.MR ---
Pharmacy Service has performed discharge medication reconciliation for this patient. The patient's discharge medication list was reviewed for discrepancies and discrepancies were resolved. Home Medications lacosamide 100 mg tablet (Vimpat) 100 mg PO BID seizures 02/22/21 latanoprost 0.005 % eye drops (Xalatan) 1 drp EACH EYE QPM eyes 08/16/21 insulin glargine 100 unit/mL (3 mL) subcutaneous pen (Lantus Solostar U-100 Insulin) 15 unit (0.15 mL) subcut BID DM #0 mL 08/17/21 omeprazole 20 mg capsule,delayed release 20 mg PO DAILY GERD #90 caps 02/22/22 aspirin 81 mg tablet,delayed release 81 mg PO DAILY HEALTH #90 tabs 03/14/22 calcium acetate(phosphat bind) 667 mg capsule 667 mg PO TIDCM vitamin 04/13/22 cholecalciferol (vitamin D3) 125 mcg (5,000 unit) tablet (Vitamin D3) 125 mcg PO KELLOGG vitamin 04/15/22 insulin lispro 100 unit/mL subcutaneous pen 1 sliding scale dose subcut USEASDIRECTD BLOOD SUGARS 04/15/22 gabapentin 100 mg capsule 200 mg PO BID NERVE PAIN #180 caps 05/11/22 acetaminophen 325 mg capsule 650 mg PO ONCE PRN Pain 05/20/22 atorvastatin 40 mg tablet 40 mg PO QHS CHOLESTEROL 06/24/22 midodrine 10 mg tablet 10 mg PO BID bp 06/24/22 nephrovite 1 tablet PO 1XD SUPPLEMENT 06/24/22 trazodone 50 mg tablet 25 mg PO QHS SLEEP 06/24/22 cyclobenzaprine 5 mg tablet 5 mg PO DAILY PRN Take 1 hour prior to dialysis #10 tabs 07/27/22
--- NOTE | 2022-08-03 14:47 | DS.PCM_ITS ---
Providers Date of Admission: 08/01/22 Primary Care Physician: Dr. Gissel Arriola MD Consultations 08/01/22 23:07 Consult: Nephrology Routine Consulting Provider: Christine Steward Reason for Consult: ESRD on HD EMERGENT Consult: No MD Notified: Yes Date Notified: 08/02/22 Time Notified: 06:52 Method of Notification: Text Reason For Visit: ? CVA Diagnosis Discharge Diagnosis (1) ESRD (end stage renal disease) on dialysis: Status: Acute Code(s): N18.6 - End stage renal disease; Z99.2 - Dependence on renal dialysis (2) Metabolic encephalopathy: Status: Acute Code(s): G93.41 - Metabolic encephalopathy (3) Altered mental status: Status: Acute Code(s): R41.82 - Altered mental status, unspecified (4) Hyperkalemia: Status: Acute Code(s): E87.5 - Hyperkalemia (5) Anemia, iron deficiency: Status: Acute Code(s): D50.9 - Iron deficiency anemia, unspecified (6) Hypotension: Status: Acute Code(s): I95.9 - Hypotension, unspecified Plan 1. Acute encephalopathy with a headache and possible vertigo/history of seizure disorder ? Encephalopathy has resolved ? EEG is unremarkable, no seizure focus ? She has had multiple recent echoes, currently awaiting MRI ? Continue with Vimpat 2. Chronic diastolic CHF/paroxysmal A. fib/HTN/HLD ? Blood pressures are little bit on the low side, she is not on any blood pressure medications at home ? Continue with the ? Continue with Lipitor and aspirin 3. DM2 with neuropathy/ESRD on dialysis MWF/morbid obesity/anemia of chronic disease due to her renal failure ? Appreciate nephrology's assistance ? Continue with insulin as well as Accu-Cheks ACH S ? We will make adjustments as necessary ? Discussed weight loss and lifestyle and ? Hemoglobin is at baseline DVT: Heparin Medications at Discharge Home Medications lacosamide 100 mg tablet (Vimpat) 100 mg PO BID seizures 02/22/21 latanoprost 0.005 % eye drops (Xalatan) 1 drp EACH EYE QPM eyes 08/16/21 insulin glargine 100 unit/mL (3 mL) subcutaneous pen (Lantus Solostar U-100 Insulin) 15 unit (0.15 mL) subcut BID DM #0 mL 08/17/21 omeprazole 20 mg capsule,delayed release 20 mg PO DAILY GERD #90 caps 02/22/22 aspirin 81 mg tablet,delayed release 81 mg PO DAILY HEALTH #90 tabs 03/14/22 calcium acetate(phosphat bind) 667 mg capsule 667 mg PO TIDCM vitamin 04/13/22 cholecalciferol (vitamin D3) 125 mcg (5,000 unit) tablet (Vitamin D3) 125 mcg PO KELLOGG vitamin 04/15/22 insulin lispro 100 unit/mL subcutaneous pen 1 sliding scale dose subcut USEASDIRECTD BLOOD SUGARS 04/15/22 gabapentin 100 mg capsule 200 mg PO BID NERVE PAIN #180 caps 05/11/22 acetaminophen 325 mg capsule 650 mg PO ONCE PRN Pain 05/20/22 atorvastatin 40 mg tablet 40 mg PO QHS CHOLESTEROL 06/24/22 midodrine 10 mg tablet 10 mg PO BID bp 06/24/22 nephrovite 1 tablet PO 1XD SUPPLEMENT 06/24/22 trazodone 50 mg tablet 25 mg PO QHS SLEEP 06/24/22 cyclobenzaprine 5 mg tablet 5 mg PO DAILY PRN Take 1 hour prior to dialysis #10 tabs 07/27/22 Hospital Course Operations None Procedures Dialysis Summary of Care Provided Minutes Spent on Discharge: 38 Hospital Course: Per HPI: The patient is a 75 y/o F w/ PMHx: Chronic diastolic CHF, Chronic Hyponatremia, Chronic anemia/AOCD, ESRD on HD MWF, PAF, Diabetes mellitus type II, Seizure disorder, Obesity, HTN, HLD, recently dischadged 07/02/22 following treatment for enterococcal bacteremia with concurrent pneumonia with also recent influenza A with bronchitis with serial mechanical falls discharged on a 13-day course of linezolid as well as 7 additional days of azithromycin per ID recommendation who now re-presents to the [facility] ED on 08/01/22 with history per daughter of initially onset at approximately 4:30 PM vision changes specifically described per report of daughter as a blurry vision prompting call to her daughter with then of onset nausea and emesis reporting upon ED arrival pain everywhere initially crying and moaning in the ED however not really answering q uestions eventually however admitting to a mild headache describing his as though she has a bubble with pressure-like sensation in her head.? Daughter reports that she has been vomiting for at least 4 hours prior to ED presentation.? Daughter notes her last scheduled dialysis was 2 days prior however she was reportedly cut short secondary to having her ride that was pretty organized unfortunately necessitate her stopping it early to be able to get home appropriately.? Her daughter denies her missing any recent dialysis sessions.? Per ED staff she did tell EMS that she has been feeling dizzy but again is a poor historian.? Daughter does note that recently she was started on a muscle relaxant just prior to dialysis and is only apparently taken 1 tablet before each dialysis session x2 now.? Given concern for possibly vertigo as an etiology stroke work-up was initiated. Work-up in the ED included T97.5, heart rate 73, BP 132/42 with most recent repeat 115/63, 95% on room air initially however did desaturate eventually requiring 2 L nasal cannula to maintain 90% to 93% oxygenation, CBC with WBC 4.2, hemoglobin 10.3, MCV 109.4, platelet 87 with lymphopenia, unremarkable coags, BMP with sodium 135, chloride 97, BUN/creat 32/3.73, glucose 264, troponin 14, chest x-ray with shallow inspiration with bibasilar perihilar atelectasis without significant change with small bilateral effusions with borderline cardiomegaly without any evidence of congestive heart failure, similar to prior chest x-ray, CTA head and neck/CT head with a stable noncontrast CT with no acute intracranial findings, CTA of [place] with extensive carotid vascular calcifications without focal stenosis, occlusion or aneurysmal dilatation with no intraluminal filling defects and no LVO, CTA cervical vasculature with scattered calcifications involving the carotid bulbs bilaterally greater on the left than right with on the left findings consistent with a mild less than 50% narrowing, no hemodynamic significant stenosis in the cervical carotid or vertebral circulation at the level of the skull base, incidentally noted large right effusion and patchy areas of interstitial infiltrate in both lung apices, EKG with sinus rhythm with no acute evidence of ischemia.? In the ED patient ministered Zofran 4 mg IV x1 as well as Reglan 5 mg IV x1. Hospital Course: 1.? Acute encephalopathy with a headache and possible vertigo/history of seizure disorder ? Encephalopathy has resolved ? EEG is unremarkable, no seizure focus ? She has had multiple recent echoes, MRI was negative for stroke ? Continue with Vimpat ? She has been seen by PT/OT who felt that she was at baseline and stable for discharge home, may benefit from continued home health. I discussed with her the possibility for discharge today she expressed understanding and was amenable to going home and would like to go home today. It sounds like she has been having difficulty with her chronic medical conditions and she may benefit from outpatient mental health therapy if that is something she would be open to. I do recommend that she follow-up with her PCP in 3 to 5 days, she did have half treatment with her dialysis yesterday so they are completing her treatment today on discharge she did get a dose of Kayexalate so I do recommend outpatient follow-up as well to monitor her potassium levels. 2.? Chronic diastolic CHF/paroxysmal A. fib/HTN/HLD ? Blood pressures are little bit on the low side, she is not on any blood pressure medications at home ? Continue with the ? Continue with Lipitor and aspirin 3.? DM2 with neuropathy/ESRD on dialysis MWF/morbid obesity/anemia of chronic disease due to her renal failure ? Appreciate nephrology's assistance ? Continue with insulin as well as Accu-Cheks ACH S ? We will make adjustments as necessary ? Discussed weight loss and lifestyle and ? Hemoglobin is at baseline Physical Exam Narrative General: Alert, Oriented x3, Cooperative, No apparent distress HEENT: Atraumatic, PERRLA, EOMI, Normocephalic Oral: Moist Mucosa Neck: Supple, No JVD Lungs: Diminished, Normal air movement, No rhonchi, No wheeze, No rales Cardiovascular: Regular rate, Regular Rhythm, Normal S1, Normal S2, No murmurs Abdomen: Soft, Non Tender, Non-Distended, No Hepato-splenomegaly Extremities: No edema, Capillary Refill Less than 3 Seconds Skin: No rashes, No breakdown Musculoskeletal: No Tenderness to Palpation of Joints or Extremities Neurological: Cranial nerves II-XII grossly intact, Motor Exam 5/5 strength throughout, Sensory exam intact to light touch and pain Psych/Mental Status: Normal Affect, Appropriate Weight / BMI Weight Weight: 212 lb 8.41 oz Body Mass Index (BMI) 41.6 ABG / Lab / Microbiology Data Result Diagrams: 08/03/22 04:43 08/03/22 04:43 Laboratory: Laboratory Results - last 24 hr 08/02/22 16:36: POC Glucose 155 H 08/02/22 22:54: POC Glucose 207 H 08/03/22 04:43: WBC 5.1, RBC 2.64 L, Hgb 9.3 L, Hct 29.7 L, MCV 112.5 H, MCH 35.2 H, MCHC 31.3 L, RDW Std Deviation 70.9 H, RDW Coeff of [place] 17.2 H, Plt Count 77 L, MPV 10.6, Immature Gran % (Auto) 0.200, Neut % (Auto) 67.6, Lymph % (Auto) 13.0 L, [place] % (Auto) 14.5 H, Eos % (Auto) 3.1, Baso % (Auto) 1.6 H, Absolute Neuts (auto) 3.4, Absolute Lymphs (auto) 0.66 L, Nucleated RBC % 0, Differential Comment SCANNED, Platelet Estimate SLT DEC, Hypochromasia 1+, Anisocytosis 1+, Microcytosis RARE, Macrocytosis RARE 08/03/22 04:43: Sodium 134 L, Potassium 5.2 H, Chloride 98, Carbon Dioxide 27.0, Anion Gap 9, BUN 30 H, Creatinine 3.79 H, Estim Creat Clear Calc 9.07, Est GFR (MDRD) Af Amer 15 L, Est GFR (MDRD) Non-Af 12 L, BUN/Creatinine Ratio 7.9 L, Glucose 145 H, Calcium 8.2 L 08/03/22 06:31: POC Glucose 134 H 08/03/22 11:16: POC Glucose 204 H Radiography Diagnostic Testing: Radiology Impression Brain MRI 08/02/22 12:00 IMPRESSION: Motion artifact. No evidence for acute infarct. Mild chronic involutional and white matter changes. Electronically Signed: Drea Rodriguez MD at 15:58 EST , D/C Instructions Discharge Diet: Low fat / Low cholesterol and Renal Diet Call your doctor if you observe: Fever of 101 or Higher, Shortness of breath, Dizziness, Fainting spells, Swelling in the ankles, Chest pain and Increased palpitations (irregular heartbeat) Meaningful Use Info Meaningful Use Diagnoses (Choose all that apply): None applicable Discharge Plan Admission Admit Date/Time: 08/01/22 22:11 Attending Provider: Lazaro Lee Primary Care Provider: Gissel Arriola Consulting Providers: Christine Steward ; Laurie Wilson Instructions Additional Instructions / Restrictions: Follow-up with your PCP in 3 to 5 days and obtain outpatient follow-up for your BMP to monitor your potassium which was elevated to 5.2, he did have dialysis on the day of discharge so hopefully this should be resolved on its own. Discharge Orders/Prescriptions Prescriptions: Continued insulin lispro 100 unit/mL insulin pen 1 sliding scale dose subcut USEASDIRECTD Rx Instructions: 3-5 units SQ before meals acetaminophen 325 mg capsule 650 mg PO ONCE PRN (Reason: Pain) cyclobenzaprine 5 mg tablet 5 mg PO DAILY PRN (Reason: Take 1 hour prior to dialysis) Qty: 10 0RF lacosamide [Vimpat] 100 mg tablet 100 mg PO BID calcium acetate(phosphat bind) 667 mg capsule 667 mg PO TIDCM latanoprost [Xalatan] 0.005 % Drops 1 drp EACH EYE QPM insulin glargine [Lantus Solostar U-100 Insulin] 100 unit/mL (3 mL) insulin pen 15 unit subcut BID Qty: 0 0RF cholecalciferol (vitamin D3) [Vitamin D3] 125 mcg (5,000 unit) tablet 125 mcg PO KELLOGG atorvastatin 40 mg tablet 40 mg PO QHS midodrine 10 mg tablet 10 mg PO BID Rx Instructions: 10 mg orally BID; do not give last dose of day after 6PM or within 4 hrs of bedtime nephrovite 1 tablet PO 1XD Rx Instructions: daily trazodone 50 mg Tablet 25 mg PO QHS omeprazole 20 mg capsule,delayed release(DR/EC) 20 mg PO DAILY Qty: 90 1RF aspirin 81 mg tablet,delayed release (DR/EC) 81 mg PO DAILY Qty: 90 1RF gabapentin 100 mg capsule 200 mg PO BID Qty: 180 3RF Discontinued linezolid 600 mg tablet 600 mg PO Q12H 7 Days Qty: 13 0RF Referrals / Follow Up: Gissel Arriola MD [Primary Care Provider] - Within 1 Week Disposition Disposition (needs filled in before D/C Order can be placed): Home Health Service Charges/Coding Visit Charges Inpatient E&M: 53722 Disch Hosp >30min
[2022-08-03 15:00] VITALS: BP 118/46; PULSE 79; RESP 18; TEMP 36.2; O2SAT 95
--- NOTE | 2022-08-03 15:03 | CASEMGMT ---
ERICA TREVIÑO called Marie at the [facility] to inquire who home oxygen and HHC was setup through. Marie confirmed that oxygen was setup with [facility] and HHC was with [facility]. ERICA TREVIÑO called Johanny Khalil at [facility] to inquire about services. Patient is active with PT/OT. ERICA TREVIÑO sent resumption order and discharge instructions through [facility]. ERICA TREVIÑO called daughter Beverly to have daughter bring home oxygen tank. Beverly states she will bring portable with her when she picks up the patient.
--- NOTE | 2022-08-03 16:41 | DIALYSIS ---
Hemodialysis today x 3hrs. UF -3000mL removed. pt stable and tolerated tx. [place] pulled stasis of sites and dressings applied. See dialysis flowsheet for details. Report to ERICA Emery
[2022-08-03 17:30] LABS: Bedside Glucose 118 mg/dL (74-106)
== END 2022-08-03 18:06 | disposition home health service (06) ==
LOC: ED 22:22 → PCU 22:28
PROVIDERS: Admitting Provider Family Medicine; Emergency Provider Emergency Medicine; PCP Internal Medicine; Visit Provider Family Medicine
DX: I13.2 Hypertensive heart and chronic kidney disease with heart failure and with stage 5 chronic kidney disease, or end stage renal disease (principal); Z99.2 Dependence on renal dialysis; J44.9 Chronic obstructive pulmonary disease, unspecified; I50.32 Chronic diastolic (congestive) heart failure; F31.9 Bipolar disorder, unspecified; E11.22 Type 2 diabetes mellitus with diabetic chronic kidney disease; E11.42 Type 2 diabetes mellitus with diabetic polyneuropathy; N18.6 End stage renal disease; E66.01 Morbid (severe) obesity due to excess calories; Z68.41 Body mass index [BMI] 40.0-44.9, adult; G40.909 Epilepsy, unspecified, not intractable, without status epilepticus; Z79.4 Long term (current) use of insulin; G93.41 Metabolic encephalopathy; Z87.891 Personal history of nicotine dependence; I95.9 Hypotension, unspecified; E87.5 Hyperkalemia; Z79.82 Long term (current) use of aspirin; D50.9 Iron deficiency anemia, unspecified; D63.1 Anemia in chronic kidney disease; E78.5 Hyperlipidemia, unspecified; Z79.899 Other long term (current) drug therapy; K21.9 Gastro-esophageal reflux disease without esophagitis
CPT/HCPCS: 36415; 70496; 70498; 70551; 71045; 80048; 80053; 80061; 82962; 83036; 83735; 84100; 84145; 84443; 84484; 85025; 85610; 85730; 87040; 90937; 93005; 94668; 94762; 95819; 96361; 96365; 96366; 96372; 96375; 97162; 97166; 99221; 99285; J7030; Q9967; A4216; C9254; G0257; G0378; J2405; J3490; Q5106

== ENCOUNTER → 2022-08-15 | Outpatient (CLI) | payer MEDICARE, MEDICAID, SELFPAY ==
--- NOTE | 2022-08-15 13:30 | BI_ITS ---
MAMMOGRAPHY - UNILATERAL DIAGNOSTIC: LEFT BREAST REASON FOR EXAM: Female, 76 years old. Diffuse swelling in the left breast. PERTINENT HISTORY: Sister with breast cancer. TECHNIQUE: Digital unilateral breast cal (3D mammographic acquisition) in the CC and MLO projections. 2-D mediolateral oblique (MLO) and craniocaudad (CC) views of both breasts were obtained. CAD: Full Field Digital Mammography with Computer Added Detection was performed. COMPARISON: Comparison is made with prior study dated 04/22/2022. FINDINGS: Breast Composition: The breasts are heterogeneously dense, which may obscure small masses. Diffuse skin thickening and edematous changes of the left breast. This has progressed as compared to prior study. Inflammatory breast carcinoma should be ruled out. No other significant abnormalities are identified. BI/DIAG MAMM W/CAD, UNILAT IMPRESSION: Progressive increase in diffuse skin thickening and edematous changes of the left breast as described. Correlation with ultrasound is recommended. ASSESSMENT CATEGORY: BIRADS Category 0: Incomplete. Need additional imaging evaluation. A letter regarding these results will be sent to the patient by the facility within 30 days. Approximately 10% of breast cancers are not detected by mammography. A normal mammogram should not delay biopsy of a clinically suspicious abnormality. Electronically Signed: Baljeet Chen MD at 15:24 EST ,
--- NOTE | 2022-08-15 13:30 | US_ITS ---
STUDY: ULTRASOUND BREAST - LEFT REASON FOR EXAM: Female, 76 years old. And edematous changes of the left breast. TECHNIQUE: Axial and longitudinal images of the LEFT breast were performed with a high resolution ultrasound transducer. # OF IMAGES: 42 COMPARISON: Comparison is made with prior mammogram done earlier today. FINDINGS: LEFT Breast: There is a 1.6 cm x 1.7 cm x 2 cm irregular hypoechoic solid mass at the 1 o''clock position breast at 10 cm from the nipple. There is posterior acoustical shadowing. Biopsy recommended. Diffuse edematous changes of the breast as well as skin thickening. US/Breast Limited Unilateral IMPRESSION: 1.6 cm x 1.7 cm x 2 cm irregular hypoechoic solid mass at the 1 o''clock position of the breast at 10 cm from the nipple. Biopsy recommended. ASSESSMENT CATEGORY: BIRADS Category 4C: High suspicion for malignancy. A letter regarding these results will be sent to the patient by the facility within 30 days. Electronically Signed: Baljeet Chen MD at 15:41 EST ,
--- NOTE | 2022-08-15 14:34 | US_ITS ---
STUDY: SUPERFICIAL ULTRASOUND - LEFT ARM AT THE SITE OF THE FISTULA. REASON FOR EXAM: Female, 76 years old. MASS ON ARM -- LEFT ARM TECHNIQUE: A superficial ultrasound was performed with real-time and static dimas-scale imaging. COMPARISON: None. FINDINGS: The palpable abnormality corresponds to a 4.3 cm x 4.3 cm x 3.1 cm hypoechoic heterogeneous mass just superior to the fistula. Biopsy recommended. US/Ext Non Vasc Limited/Soft Tiss IMPRESSION: 4.3 cm x 4.3 cm x 3.1 solid hypoechoic and heterogeneous mass just superior to the fistula. A biopsy is recommended. Electronically Signed: Baljeet Chen MD at 15:43 EST ,
== END | disposition home or self-care (01) ==
LOC: OPBI 13:28
PROVIDERS: PCP Internal Medicine; Visit Provider Internal Medicine Hematology & Oncology
DX: R92.2 Inconclusive mammogram (principal); Z80.3 Family history of malignant neoplasm of breast
CPT/HCPCS: 76642; 76882; 77061; 77065; G0279

== ENCOUNTER → 2022-08-22 | Outpatient (CLI) | payer MEDICARE, MEDICAID, SELFPAY ==
--- NOTE | 2022-08-22 | IMM_PTH ---
PATIENT: JAYDA WYATT DEANDRA LOC: [facility] U#:[id number] AGE/SX: 76/F ROOM: RE08/22/[address]: Dr. Heraclio Marrufo MD : 1945 BED: DIS: 08/22/2022 SPEC #: [id number] RECD: 08/24/22 13:54 STATUS: ARNALDO REQ #: [id number] CLIFFORD: 08/22/22 00:[address]: Heraclio Marrufo DEPT: IMMUNOHISTOCHEMISTRY RECD BY: Yesika Francisco ENTERED: 08/24/22 13:56 SP TYPE: IMMUNO OTHR DR: Dr. Gissel Arriola MD Tissues: Left breast, NOS Procedures: CALPONIN-1 (add) CK5-6 (add) CK8 (add) SHARPE-2 (add) E-CAD (add) HER2 MECHE (add) KI-67 (add) P53 (add) NM (add) P40 (add) ER (initial) PHYSICIAN & [address] [address] SPECIMEN INFORMATION: Tissue Source: Left breast Clinical Info: Left breast mass Specimen Number: [id number] CPT code: 88428, 11595 x7, 55201 x3 METHODOLOGY: Deparaffinized sections of prefer/formalin-fixed tissue or PAP/DQ stained slides are incubated with monoclonal/polyclonal antibodies/oligonucleotide probes. Localization is made via biotin free immunoperoxidase method. Appropriate controls are performed and reacted as expected. Results on target cell population are indicated in the following table: RESULTS: ANTIBODY / CLONE RESULT P53 (DO-7) positive Ki-67 (30-9) positive, 90% CK8 (06jtsyD80) positive CK5-6 (D5 & 1684) positive, tumor cells Calponin-1 (LP795E) negative P40 (BC28) negative E-Cad (ECH-6) positive SHARPE-2 (SP21) positive MORPHOMETRIC ANALYSIS ER (clone 6F11) negative (0%) NM (clone 16/1E2) negative (0%) Her-2Neu (clone CB11) negative (0) The prognostic test for HER2 is performed on formalin-fixed paraffin embedded tissue. A 3+ (positive) staining pattern is defined as intense, homogeneous, complete, circumferential membranous staining in >10% of contiguous tumor cells. A similar weak (2+) staining pattern is interpreted as equivocal. AGNES follow-up testing is recommended for all equivocal cases. Positivity/negativity for ER/NM is reported if > or < 1% of the tumor cells are immuno- reactive, respectively. The ASCO/CAP criteria is used for scoring. Reference: Journal of Clinical Oncology, 2013; 31:7086-3298 & 2010; 16:1737-7066. Duration of fixation: 33 Hrs; Sample Adequate: Yes. These assays have not been validated on decalcified tissues. Results should be interpreted with caution given the likelihood of false negativity on decalcified specimens. These tests were developed and their performance characteristics determined by [facility]. They may not have been cleared or approved by the U.S. Food and Drug Administration. The FDA has determined that such clearance or approval is not necessary. The above immunohistochemical/dualISH markers are ordered and reviewed by the Pathologist. 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 Negative for estrogen receptors (unfavorable prognostic indicator). Negative for progesterone receptors (unfavorable prognostic indicator). Negative for overexpression of [id number]. Case has been reviewed in consultation with Dr. Jameson who concurs with the above diagnosis. IDC:[id number] AM:irvin 08/25/2022
--- NOTE | 2022-08-22 10:35 | BRBX_PTH ---
PATIENT: JAYDA WYATT DEANDRA LOC: [facility] U#:[id number] AGE/SX: 76/F ROOM: RE08/22/[address]: Dr. Heraclio Marrufo MD : 1945 BED: DIS: 08/22/2022 SPEC #: [id number] RECD: 08/22/22 15:05 STATUS: ARNALDO RE #: [id number] CLIFFORD: 08/22/22 10:[address]: Heraclio Marrufo DEPT: SURGICAL PATHOLOGY RECD BY: Orquidea Tobar ENTERED: 08/23/22 10:06 SP TYPE: BREAST BX OTHR DR: Dr. Gissel Arriola MD Tissues: Left breast, NOS Procedures: Surgery Specimen Level IV HEADER OPERATION: Left breast biopsy PRE-OP DIAGNOSIS: Left breast mass TISSUE SUBMITTED: Left breast tissue MICROSCOPIC DIAGNOSIS Left breast, core biopsy: Invasive ductal carcinoma with the follow characteristics: Nuclear grade ? 2-3/3 Maximal length ? 14 millimeters See comment. AM:irvin 08/24/2022 COMMENT ER/IA/Kmz1qty studies are being performed on sections of tumor and the results from this study will be reported separately ([id number]). Case has been reviewed in consultation with Dr. Jameson who concurs with the above diagnosis. IDC:[id number] MICROSCOPIC DESCRIPTION Slides are reviewed. GROSS DESCRIPTION Received in fixative is one container labeled with the patient's name and designated left breast. The specimen consists of multiple elongated fragments of bradshaw-yellow fibroadipose tissue that in aggregate measure 2.0 x 0.4 x 0.1 cm. The entire specimen is submitted in one cassette. / PARAMJIT:irvin 08/23/2022 TC:0 CPT: 02165
== END | disposition home or self-care (01) ==
PROVIDERS: PCP Internal Medicine; Referring Provider Surgery; Visit Provider Surgery
DX: C50.912 Malignant neoplasm of unspecified site of left female breast (principal); Z17.1 Estrogen receptor negative status [ER-]
CPT/HCPCS: 88305; 88341; 88342

== ENCOUNTER 2022-09-07 04:30 | Emergency (ER) | payer MEDICARE, MEDICAID, SELFPAY ==
[2022-09-07 04:32] VITALS: BP 102/53; PULSE 96; RESP 16; TEMP 36.2; O2SAT 97; BMI 42.0
--- NOTE | 2022-09-07 05:50 | CT_ITS ---
EXAM: CT CERVICAL SPINE WITHOUT INTRAVENOUS CONTRAST CLINICAL INDICATION: injury TECHNIQUE: Helically acquired images were obtained of the cervical spine without intravenous contrast. 2D reformatted images were reviewed. This CT exam was performed using one or more of the following dose reduction techniques: automated exposure control, adjustment of the mA and/or kV according to patient size, and/or use of iterative reconstruction technique. This report was created using [employer] report generation technology. COMPARISON: None. FINDINGS: VERTEBRAE: Unremarkable. No fracture. No traumatic subluxation. No discrete lytic or blastic abnormality. Normal alignment. Normal craniocervical junction and cervicothoracic junction. DISCS/SPINAL CANAL/NEURAL FORAMINA: Degenerative changes of the intervertebral discs. No critical stenosis. SOFT TISSUES: Unremarkable. No prevertebral soft tissue swelling. LYMPH NODES: Unremarkable. No cervical adenopathy. LUNG APICES: Bilateral pleural effusions. CT/Spine Cervical without Contras IMPRESSION: 1. No acute injuries identified involving the cervical spine. 2. Degenerative changes. 3. Bilateral pleural effusions are incidentally noted. Electronically Signed: Peter Byrne MD at 6:51 EST ,
--- NOTE | 2022-09-07 05:50 | CT_ITS ---
EXAM: CT HEAD WITHOUT INTRAVENOUS CONTRAST CLINICAL INDICATION: injury TECHNIQUE: Multiple axial images were obtained of the head without intravenous contrast. This CT exam was performed using one or more of the following dose reduction techniques: automated exposure control, adjustment of the mA and/or kV according to patient size, and/or use of iterative reconstruction technique. This report was created using [employer] technology. COMPARISON: None. FINDINGS: BRAIN AND EXTRA-AXIAL SPACES: Diffuse cerebral volume loss. Periventricular small vessel ischemic changes. No intra- or extra-axial hemorrhage. No intracranial mass or mass effect. Posterior fossa structures are unremarkable. No hydrocephalus. Basal cisterns are patent. BONES/JOINTS: Unremarkable. No discrete lytic or blastic abnormalities. VASCULATURE: Vascular calcifications. SINUSES: Unremarkable as visualized. Clear. MASTOID AIR CELLS: Unremarkable. Clear. ORBITS: Visualized globes, extraocular muscles, optic nerves and retrobulbar fat appear unremarkable. CT/Brain/Head without Contrast IMPRESSION: 1. No acute intracranial abnormalities. 2. Age-related changes. Electronically Signed: Peter Byrne MD at 6:49 EST ,
--- NOTE | 2022-09-07 05:50 | RAD_ITS ---
EXAM: XR RIGHT HIP WITH PELVIS WHEN PERFORMED, 2 OR 3 VIEWS CLINICAL INDICATION: injury TECHNIQUE: Two or three views of the right hip with pelvis when performed. This report was created using [employer] report generation technology. COMPARISON: None. FINDINGS: BONES/JOINTS: Moderate degenerative changes of the hips. No displaced fracture. No destructive or sclerotic lesions. Note that overlapping bowel shadows may however obscure fine detail. Sacroiliac joint is unremarkable. No widening of the pubic symphysis. SOFT TISSUES: Unremarkable. No soft tissue swelling or gas. RAD/HIP, UNI W/ Pelvis 2-3 Views IMPRESSION: No acute abnormalities identified on this plain film evaluation of the pelvis and right hip. Follow up with additional imaging if clinically indicated. Electronically Signed: Peter Byrne MD at 6:52 EST ,
--- NOTE | 2022-09-07 05:50 | RAD_ITS ---
EXAM: XR RIGHT FOREARM, 2 VIEWS CLINICAL INDICATION: injury TECHNIQUE: Frontal and lateral views of the right forearm. This report was created using [employer] report generation technology. COMPARISON: None. FINDINGS: BONES/JOINTS: Unremarkable. No acute fracture. No dislocation. SOFT TISSUES: Unremarkable. RAD/Forearm 2 Views IMPRESSION: Negative right forearm x-rays. Electronically Signed: Peter Byrne MD at 6:51 EST ,
--- NOTE | 2022-09-07 05:50 | CT_ITS ---
EXAM: CT MAXILLOFACIAL WITHOUT INTRAVENOUS CONTRAST CLINICAL INDICATION: injury TECHNIQUE: Helically acquired images were obtained of the face without intravenous contrast. This CT exam was performed using one or more of the following dose reduction techniques: automated exposure control, adjustment of the mA and/or kV according to patient size, and/or use of iterative reconstruction technique. This report was created using [employer] report generation technology. COMPARISON: None. FINDINGS: BONES/JOINTS: Unremarkable. No displaced fracture. No discrete lytic or blastic abnormalities. SOFT TISSUES: Unremarkable. No focal subcutaneous swelling. No discrete fluid collections. ORBITS: Unremarkable. Both globes are unremarkable. Extraocular muscles are normal. Retrobulbar fat appears unremarkable. SINUSES: Unremarkable as visualized. Clear. MASTOID AIR CELLS: Unremarkable as visualized. Clear. CT/Sinus/Facial Bone IMPRESSION: Negative CT facial bones without intravenous contrast. Electronically Signed: Peter Byrne MD at 6:53 EST ,
[2022-09-07 06:48] VITALS: O2SAT 99
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
--- NOTE | 2022-09-07 07:44 | ED.RN ---
PT REQUESTS THIS RN CALL HER DAUGHTER FOR A RIDE HOME. DAUGHTER REPORTS THAT SHE WILL BE COMING TO GET THE PATIENT SOON SHE IS ABLE TO LEAVE WORK.
[2022-09-07 07:52] VITALS: BP 130/57; PULSE 70; RESP 16; O2SAT 100
== END 2022-09-07 07:54 | disposition home or self-care (01) ==
PROVIDERS: Emergency Provider Emergency Medicine; PCP Internal Medicine; Visit Provider Emergency Medicine
DX: S09.90XA Unspecified injury of head, initial encounter (principal); I13.2 Hypertensive heart and chronic kidney disease with heart failure and with stage 5 chronic kidney disease, or end stage renal disease; Z99.2 Dependence on renal dialysis; J44.9 Chronic obstructive pulmonary disease, unspecified; I50.30 Unspecified diastolic (congestive) heart failure; E11.22 Type 2 diabetes mellitus with diabetic chronic kidney disease; E11.42 Type 2 diabetes mellitus with diabetic polyneuropathy; N18.6 End stage renal disease; E78.5 Hyperlipidemia, unspecified; Z60.2 Problems related to living alone; Z87.891 Personal history of nicotine dependence; S51.801A Unspecified open wound of right forearm, initial encounter; S70.01XA Contusion of right hip, initial encounter; E66.9 Obesity, unspecified; W01.198A Fall on same level from slipping, tripping and stumbling with subsequent striking against other object, initial encounter
CPT/HCPCS: 70450; 70486; 72125; 73090; 73502; 99284

== ENCOUNTER 2022-09-11 13:47 | Inpatient (IN) | payer MEDICARE, MEDICAID, SELFPAY ==
[2022-09-11] VITALS (9 sets, daily range): BP systolic 88–132; BP diastolic 20–52; PULSE 79–86; RESP 12–24; TEMP 36.1–36.6; O2SAT 92–100; BMI 42.0; BMI 39.3
--- NOTE | 2022-09-11 14:03 | RAD_ITS ---
INDICATION: Hypoxia EXAMINATION/TECHNIQUE: X-RAY - XR Chest 1 View COMPARISON: August 01, 2022 FINDINGS: LUNGS: There are bilateral pleural effusions. There is perihilar fullness associated with indistinct pulmonary bronchovasculature and prominent interstitial markings. MEDIASTINUM AND CARDIOVASCULAR STRUCTURES: Cardiac silhouette not enlarged. BONES AND SOFT TISSUES: Unremarkable. RAD/Chest 1 View (Portable) IMPRESSION: Bilateral pleural effusions, cannot exclude associated bibasilar consolidation. Pulmonary venous congestion associated with interstitial edema. Electronically Signed: Aby Ashford MD at 15:22 EDT ,
--- NOTE | 2022-09-11 14:03 | CT_ITS ---
INDICATION: Decreased responsiveness EXAMINATION: CT BRAIN - CT Head or Brain W/O Contrast Injection TECHNIQUE: Multiple axial images were obtained of the head without intravenous contrast. A radiation dose optimization technique was used for this scan. IV Contrast dosage and agent: None. COMPARISON: September 07, 2022 FINDINGS: BRAIN PARENCHYMA: No intra- or extra-axial hemorrhage. No evidence of acute infarct. No intracranial mass or mass effect. There is preservation of the dimas/white matter interface. Posterior fossa structures are unremarkable. CSF SPACES: Appropriate for age. No hydrocephalus. Basal cisterns are patent. CALVARIUM, SKULL BASE, PARANASAL SINUSES AND MASTOID AIR CELLS: Clear. No discrete lytic or blastic abnormalities. ORBITS: Both globes, extraocular muscles, optic nerves and retrobulbar fat appear unremarkable. ASPECTS Score for Acute Strokes: 10 CT/Brain/Head without Contrast IMPRESSION: No acute intracranial process. Electronically Signed: Aby Ashford MD at 15:04 EDT ,
--- NOTE | 2022-09-11 14:09 | EDS_ITS ---
HPI History of Present Illness Chief Complaint: Unresponsive Informant: EMS Narrative Narrative: I am waiting to talk with the family. I did talk with EMS. Family called because a could not wake her up. She seemed to be unresponsive. When EMS got there she was hypoxic and they did do Ambu respirations. But she is now breathing on her own. There is no real ported acute issue that is happened. She did have a fall recently and has multiple contusions from that. There was a report through EMS and family that the patient has just not been herself since this fall. Patient does have a history of diabetes but her sugars 170s. She is on dialysis. I do not know when she last had this. On her med list, do not sign of an quite. I do see medication Vimpat so she may have seizures disorders. [facility] Medical History (Updated 09/11/22 @ 16:[address] Jaydon Jones MD) Accidental fall into hole or opening in surface Acute and chronic respiratory failure (01/2021) Acute stroke due to ischemia Anemia of chronic disease Atrial fibrillation with rapid ventricular response (02/24/21) Walters esophagus Bipolar disorder Chronic cough Chronic heart failure with preserved ejection fraction (HFpEF) COPD (chronic obstructive pulmonary disease) COVID CPAP (continuous positive airway pressure) dependence Debility Depression Dialysis patient DM type 2 (diabetes mellitus, type 2) Esophageal reflux ESRD (end stage renal disease) on dialysis Essential hypertension Former smoker Gastric reflux Generalized anxiety disorder Generalized weakness History of edema History of heart attack History of tobacco abuse Hyperlipidemia Hypertension Hyponatremia Iron deficiency anemia Leg wound, right Multiple personality disorder Non-rheumatic tricuspid valve insufficiency Open wound of right lower extremity ELENITA on CPAP Peripheral neuropathy Personal history of Methicillin resistant Staphylococcus aureus infection Respiratory failure with hypoxia Restless legs syndrome Rheumatoid arthritis Right heart failure with reduced right ventricular function Right ventricular dilation Secondary pulmonary arterial hypertension Seizures Shortness of breath on exertion Thrombocytopenia Ulcer of toe of left foot Home Medications lacosamide 100 mg tablet (Vimpat) 100 mg PO BID seizures 02/22/21 [History Last Taken 02/10/22] latanoprost 0.005 % eye drops (Xalatan) 1 drp EACH EYE QPM eyes 08/16/21 [History Last Taken 02/09/22] insulin glargine 100 unit/mL (3 mL) subcutaneous pen (Lantus Solostar U-100 Insulin) 15 unit (0.15 mL) subcut BID DM #0 mL 08/17/21 [Rx Last Taken 02/10/22] aspirin 81 mg tablet,delayed release 81 mg PO DAILY HEALTH #90 tabs 03/14/22 [Rx Last Taken Unknown] calcium acetate(phosphat bind) 667 mg capsule 667 mg PO TIDCM vitamin 04/13/22 [History Last Taken Unknown] cholecalciferol (vitamin D3) 125 mcg (5,000 unit) tablet (Vitamin D3) 125 mcg PO KELLOGG vitamin 04/15/22 [History Last Taken Unknown] insulin lispro 100 unit/mL subcutaneous pen 1 sliding scale dose subcut USEASDIRECTD BLOOD SUGARS 04/15/22 [History Last Taken Unknown] gabapentin 100 mg capsule 200 mg PO BID NERVE PAIN #180 caps 05/11/22 [Rx Last Taken Unknown] acetaminophen 325 mg capsule 650 mg PO ONCE PRN Pain 05/20/22 [History Last Taken Unknown] atorvastatin 40 mg tablet 40 mg PO QHS CHOLESTEROL 06/24/22 [History Last Taken Unknown] midodrine 10 mg tablet 10 mg PO BID bp 06/24/22 [History Last Taken Unknown] nephrovite 1 tablet PO 1XD SUPPLEMENT 06/24/22 [History Last Taken Unknown] lift chair #1 ea 08/04/22 [Rx Last Taken Unknown] omeprazole 20 mg capsule,delayed release 20 mg PO DAILY GERD #90 caps 08/08/22 [Rx Last Taken Unknown] cyclobenzaprine 10 mg tablet 10 mg PO DAILY PRN Take 1 hour prior to dialysis #20 tabs 08/25/22 [Rx Last Taken Unknown] Allergy/AdvReac Type Severity Reaction Status Date / Time Penicillins Allergy Severe Anaphylaxis Verified 09/11/22 13:53 ciprofloxacin [From Cipro] Allergy Rash Verified 09/11/22 13:53 codeine Allergy Shortness Verified 09/11/22 13:53 of breath Family History Mother Heart disease Diabetes Father Heart disease Brother Cancer Diabetes CAD (coronary artery disease) Myocardial infarction Sister Diabetes Kidney disease Heart disease Surgical History H/O: hysterectomy Hx of surgical procedure S/P arteriovenous (AV) fistula creation Vascular dialysis catheter in place (10/2020) Social History household members: other details: Lives alone housing: apartment Smoking Status: Former smoker pack-years: 150 how long ago did patient quit smoking: Over a year ago alcohol intake: never substance use type: does not use caffeine: Yes Type: coffee Number of servings: 1 EXAM Physical Exam Const Vital Signs: 09/11/22 13:48 09/11/22 13:52 09/11/22 13:52 Temperature 97.5 F L 97.8 F 97.8 F Temperature Source Temporal Temporal Temporal Pulse Rate 82 82 82 Respiratory Rate 21 H 19 H 19 H Blood Pressure 127/43 H 127/43 H Blood Pressure Mean 71 71 Pulse Ox 100 100 100 Oxygen Delivery Method Non-Rebreather Non-Rebreather Non-Rebreather Oxygen Flow Rate (L/min) 15 15 15 09/11/22 15:00 09/11/22 15:00 Temperature 97.1 F L Temperature Source Oral Pulse Rate 86 86 Respiratory Rate 23 H 23 H Blood Pressure 132/51 H 132/51 H Blood Pressure Mean 78 78 Pulse Ox 94 94 Oxygen Delivery Method Nasal Cannula Nasal Cannula Oxygen Flow Rate (L/min) 5 5 MDM MDM MDM Narrative Medical decision making narrative: I did talk with the daughter also who came in. She states ever since her fall earlier in the week her mom just has not been right. Her energy level is low. She went to dialysis yesterday is normal. After coming home she really just has not gotten out of her chair. She just feels too weak. Daughter also noticed that her oxygen level seems to have been lower. She is normally on 2 L of oxygen but the daughter has turned that up to is much as 4 L because her oxygen level has dropped down to 79 and 84%. Patient's not complaining of dyspnea at this time. She does state that her neck has been sore since the fall. But I also reviewed prior imaging and they did do CT scan of her neck that showed no acute process. She is not having any focal neurologic symptoms but she has global weakness. Patient is now talking to me. She is awake. But she admits to being weak. She does live alone in her own apartment. Family is busy and is not able to spend multimedia developer with her. Both agree that she is too weak to go home. I am not sure if there is a specific source of her weakness. She generally has not been having respiratory issues. Although she has had seizures I do not think she had a seizure recently. Her prolactin level is also relatively normal. Patient CBC shows mild anemia which she has a chronic history of. White count is normal. Electrolytes show no marked abnormalities but she just had dialysis yesterday. BUN and creatinine were up a bit consistent with her chronic renal disease. Glucose was up at 274. Lactic acid was high at 2.9. But I think this is likely due to hypoxia at home. LFTs show minimal elevation in the bilirubin. Troponin was high at 83. However, she is not having chest pain. Her EKG does not show any marked abnormalities. She also has chronic renal failure and was hypoxic. My independent interpretation of the patient's single view chest x-ray showed changes consistent with positioning and obesity. There may be some increased congestion but no focal infiltrate. Radiology's reading was: Bilateral pleural effusions, cannot exclude associated bibasilar consolidation. ? Pulmonary venous congestion associated with interstitial edema. My independent interpretation of the CT of the head shows no acute process. I did review some of the results recently. Her CT of the neck was also negative at that prior visit. I did discuss the case with the hospitalist. With her generalized weakness, elevated troponin, lactic acidosis she will be brought in the hospital. I did get her ABG back that did not show signs of any significant CO2 retention. History & Record Review Discussion w/independent historian: EMS personnel, Patient and Family Lab Data Attestation: I reviewed the patient's lab results. Labs: Laboratory Results - last 24 hr 09/11/22 09/11/22 09/11/22 14:13 14:13 15:00 WBC 4.8 RBC 3.27 L Hgb 11.2 L Hct 36.5 L MCV 111.6 H MCH 34.3 H MCHC 30.7 L RDW Std Deviation 61.2 H RDW Coeff of Kusum 15.0 H Plt Count 114 L MPV 11.5 Immature Gran % (Auto) 0.200 Neut % (Auto) 69.8 Lymph % (Auto) 13.4 L Freestone % (Auto) 14.0 H Eos % (Auto) 1.3 Baso % (Auto) 1.3 H Absolute Neuts (auto) 3.4 Absolute Lymphs (auto) 0.64 L Nucleated RBC % 0 Sodium 139 Potassium 3.7 Chloride 98 Carbon Dioxide 31.0 Anion Gap 10 BUN 21 H Creatinine 3.14 H Estim Creat Clear Calc 10.95 Est GFR (MDRD) Af Amer 19 L Est GFR (MDRD) Non-Af 15 L BUN/Creatinine Ratio 6.7 L Glucose 274 H Lactic Acid 2.9 H* Calcium 8.8 Total Bilirubin 1.20 H AST 43 H ALT 18 Alkaline Phosphatase 93 Troponin I High Sens 83 H Total Protein 6.6 Albumin 2.8 L Globulin 3.8 Albumin/Globulin Ratio 0.7 L Prolactin 31.7 ABG Data ABG results: ABG 09/11/22 16:36 Specimen Type ART Sample Site R Radial pH 7.44 Bicarbonate Actual 31.6 H Total CO2 33 Base Excess 8 H O2 Saturation 93 L ABG pCO2 46.3 H ABG pO2 64 L Mike Test Positive O2 Delivery Device Cannula Liter Flow 5.0 Radiography Diagnostic Testing: Clinical Impression(s) from Imaging Studies Brain CT 09/11/22 14:03 IMPRESSION: No acute intracranial process. Electronically Signed: Aby Ashford MD at 15:04 EDT , Chest X-Ray 09/11/22 14:03 IMPRESSION: Bilateral pleural effusions, cannot exclude associated bibasilar consolidation. Pulmonary venous congestion associated with interstitial edema. Electronically Signed: Aby Ashfodr MD at 15:22 EDT Reading Location ID and State: [facility] / [place] Tel , Service support , Discharge Plan Triage Chief Complaint: Unresponsive ED Provider: Jaydon Jones Dx/Rx/DC Orders Clinical Impression: Episode of unresponsiveness, Hypoxic episode, Elevated troponin, Lactic acidosis, Inability to walk, Generalized weakness Prescriptions: No Action insulin lispro 100 unit/mL insulin pen 1 sliding scale dose subcut USEASDIRECTD Rx Instructions: 3-5 units SQ before meals acetaminophen 325 mg capsule 650 mg PO ONCE PRN (Reason: Pain) lacosamide [Vimpat] 100 mg tablet 100 mg PO BID calcium acetate(phosphat bind) 667 mg capsule 667 mg PO TIDCM latanoprost [Xalatan] 0.005 % Drops 1 drp EACH EYE QPM insulin glargine [Lantus Solostar U-100 Insulin] 100 unit/mL (3 mL) insulin pen 15 unit subcut BID Qty: 0 0RF cholecalciferol (vitamin D3) [Vitamin D3] 125 mcg (5,000 unit) tablet 125 mcg PO KELLOGG atorvastatin 40 mg tablet 40 mg PO QHS midodrine 10 mg tablet 10 mg PO BID Rx Instructions: 10 mg orally BID; do not give last dose of day after 6PM or within 4 hrs of bedtime nephrovite 1 tablet PO 1XD Rx Instructions: daily aspirin 81 mg tablet,delayed release (DR/EC) 81 mg PO DAILY Qty: 90 1RF gabapentin 100 mg capsule 200 mg PO BID Qty: 180 3RF (DME) lift chair See Rx Instructions .Route .MEDSUPPLY Qty: 1 0RF Rx Instructions: As directed omeprazole 20 mg capsule,delayed release(DR/EC) 20 mg PO DAILY Qty: 90 3RF cyclobenzaprine 10 mg tablet 10 mg PO DAILY PRN (Reason: Take 1 hour prior to dialysis) Qty: 20 0RF Primary Care Provider: Gissel Arriola Referrals: Gissel Arriola MD [Primary Care Provider] - Disposition Disposition: Acute Care Hospital [facility]
[2022-09-11 14:21] LABS: Absolute Lymphocyte Count 0.64 X10^3/uL (0.83-4.51); Absolute Neutrophil Count 3.4 X10^3/uL (2.0-7.7); Basophil# 0.06 X10^3/uL; Basophil% 1.3 % (0-1); Eosinophil# 0.06 X10^3/uL; Eosinophils% 1.3 % (0-5); Hematocrit 36.5 % (37-47); Hemoglobin 11.2 g/dL (12.0-15.0); Lymphocyte # 0.64 X10^3/ul (0.83-4.51); Lymphocyte % 13.4 % (19-41); Mean Corp Hgb Conc 30.7 g/dL (32-36); Mean Corpuscular Hgb 34.3 pg (27.0-32.0); Mean Corpuscular Volume 111.6 fL (81-99); Mean Platelet Vol. 11.5 fl (6.2-12.0); Monocyte# 0.67 X10^3/uL; NRBC Flagged by Analyzer 0 % (0-5); Neutrophil # 3.35 X10^3/uL (2.7-7.7); Neutrophil % 69.8 % (47-70); Platelet Count 114 K/mm3 (150-450); RBC Distribution Width SD 61.2 fl (35.1-43.9); Red Blood Count 3.27 M/mm3 (4.2-5.4); White Blood Count 4.8 K/mm3 (4.4-11.0)
[2022-09-11 14:50] LABS: ALB/GLOB Ratio 0.7 RATIO (0.9-2.4); AST(SGOT) 43 U/L (15-37); Alanine Aminotransfer ALT/SGPT 18 U/L (13-56); Albumin, Serum 2.8 g/dL (3.2-5.0); Alkaline Phosphatase 93 U/L (45-117); Anion Gap 10 (5-15); BUN 21 mg/dL (7-18); BUN/Creat Ratio 6.7 RATIO (10-20); Calcium,Total 8.8 mg/dL (8.5-10.1); Chloride 98 mmol/L (98-107); Creatinine, Serum 3.14 mg/dL (0.55-1.02); EST Glomerular Filtration Rate 15 mL/min (>60); Est Glom Filt Rate - Afr Amer 19 mL/min (>60); Estimated Creatinine Clearance 10.95 ml/min; Globulin 3.8 g/dL (2.2-4.2); Glucose 274 mg/dL (74-106); Potassium 3.7 mmol/L (3.5-5.1); Prolactin 31.7 ng/mL; Protein, Total 6.6 g/dL (6.4-8.2); Sodium Level 139 mmol/L (136-145); Troponin-I HS 83 pg/mL (3.0-54.0)
[2022-09-11 15:56] LABS: Lactic Acid 2.9 mmol/L (0.4-1.9)
--- NOTE | 2022-09-11 15:57 | ED.RN ---
lab called lactic of 2.9. Dr Jones aware
[2022-09-11 16:40] LABS: Allen Test Positive; Base Excess 8 mmol/L (-2 to +2); Bicarbonate 31.6 mmol/L (22-26); Blood Gas Specimen Type ART; O2 Delivery Device Cannula; PO2 64 mmHG (75-100); SITE R Radial; SO2 93 % (95-99); Total Carbon Dioxide 33 mmol/L; pCO2 46.3 mmHg (35-45); pH 7.44 (7.35-7.45)
[2022-09-11 17:19] LABS: BNP,B-Type NATRIURETIC PEPTIDE 269.5 pg/mL (0-100)
--- NOTE | 2022-09-11 17:31 | PCM.HP.STD ---
HPI - General General Date of Admission: 09/11/22 Date of Service: 09/11/22 Chief Complaint: SOB, ams HPI Narrative JAYDA WYATT, is a 76 F with a history of end-stage renal disease on dialysis, COPD with 2 L O2, ELENITA on CPAP, left breast cancer, type 2 diabetes mellitus presented to [facility] 09/11/2022 with hypoxia and altered mental status. Reportedly had been at home and was 82% and ultimately improved with Ambu bag. She had a fall last week and has been progressively weaker since that time per daughter at bedside. In ED she initially was somewhat difficult to arouse but improved with increased O2. In ED had glucose of 274, lactic 2.9, troponin 83, as well as elevated BUN/creatinine but did have dialysis yesterday and completed her treatment reportedly, chest x-ray with bilateral pleural effusions and cannot exclude bibasilar consolidation. ABG with a pH of 7.44, CO2 of 33, PO2 of the time at 64 hospitalist consulted for admission. Patient seen in ED with daughter at bedside who provided significant part of the history as patient very tired. Reportedly she had a fall about a week ago and has had increasing weakness and was in her chair for almost 24 hours before today because she was so weak and she called her daughter for assistance. Daughter went there this morning and her SPO2 was 80% and she increased her to 4 L O2. She had reportedly been reporting increased cough and shortness of breath over the past 2 days as well. Patient unable to give any other meaningful history other than her left breast hurting. [facility] Medical History (Updated 09/11/22 @ 16:[address] Jaydon Jones MD) Accidental fall into hole or opening in surface Acute and chronic respiratory failure (01/2021) Acute stroke due to ischemia Anemia of chronic disease Atrial fibrillation with rapid ventricular response (02/24/21) Walters esophagus Bipolar disorder Chronic cough Chronic heart failure with preserved ejection fraction (HFpEF) COPD (chronic obstructive pulmonary disease) COVID CPAP (continuous positive airway pressure) dependence Debility Depression Dialysis patient DM type 2 (diabetes mellitus, type 2) Esophageal reflux ESRD (end stage renal disease) on dialysis Essential hypertension Former smoker Gastric reflux Generalized anxiety disorder Generalized weakness History of edema History of heart attack History of tobacco abuse Hyperlipidemia Hypertension Hyponatremia Iron deficiency anemia Leg wound, right Multiple personality disorder Non-rheumatic tricuspid valve insufficiency Open wound of right lower extremity ELENITA on CPAP Peripheral neuropathy Personal history of Methicillin resistant Staphylococcus aureus infection Respiratory failure with hypoxia Restless legs syndrome Rheumatoid arthritis Right heart failure with reduced right ventricular function Right ventricular dilation Secondary pulmonary arterial hypertension Seizures Shortness of breath on exertion Thrombocytopenia Ulcer of toe of left foot Home Medications lacosamide 100 mg tablet (Vimpat) 100 mg PO BID seizures 02/22/21 [History Last Taken 02/10/22] latanoprost 0.005 % eye drops (Xalatan) 1 drp EACH EYE QPM eyes 08/16/21 [History Last Taken 02/09/22] insulin glargine 100 unit/mL (3 mL) subcutaneous pen (Lantus Solostar U-100 Insulin) 15 unit (0.15 mL) subcut BID DM #0 mL 08/17/21 [Rx Last Taken 02/10/22] aspirin 81 mg tablet,delayed release 81 mg PO DAILY HEALTH #90 tabs 03/14/22 [Rx Last Taken Unknown] calcium acetate(phosphat bind) 667 mg capsule 667 mg PO TIDCM vitamin 04/13/22 [History Last Taken Unknown] cholecalciferol (vitamin D3) 125 mcg (5,000 unit) tablet (Vitamin D3) 125 mcg PO KELLOGG vitamin 04/15/22 [History Last Taken Unknown] insulin lispro 100 unit/mL subcutaneous pen 1 sliding scale dose subcut USEASDIRECTD BLOOD SUGARS 04/15/22 [History Last Taken Unknown] gabapentin 100 mg capsule 200 mg PO BID NERVE PAIN #180 caps 05/11/22 [Rx Last Taken Unknown] acetaminophen 325 mg capsule 650 mg PO ONCE PRN Pain 05/20/22 [History Last Taken Unknown] atorvastatin 40 mg tablet 40 mg PO QHS CHOLESTEROL 06/24/22 [History Last Taken Unknown] midodrine 10 mg tablet 10 mg PO BID bp 06/24/22 [History Last Taken Unknown] lift chair #1 ea 08/04/22 [Rx Last Taken Unknown] omeprazole 20 mg capsule,delayed release 20 mg PO DAILY GERD #90 caps 08/08/22 [Rx Last Taken Unknown] cyclobenzaprine 10 mg tablet 10 mg PO DAILY PRN Take 1 hour prior to dialysis #20 tabs 08/25/22 [Rx Last Taken Unknown] Allergy/AdvReac Type Severity Reaction Status Date / Time Penicillins Allergy Severe Anaphylaxis Verified 09/11/22 13:53 ciprofloxacin [From Cipro] Allergy Rash Verified 09/11/22 13:53 codeine Allergy Shortness Verified 09/11/22 13:53 of breath Family History Mother Heart disease Diabetes Father Heart disease Brother Cancer Diabetes CAD (coronary artery disease) Myocardial infarction Sister Diabetes Kidney disease Heart disease Surgical History H/O: hysterectomy Hx of surgical procedure S/P arteriovenous (AV) fistula creation Vascular dialysis catheter in place (10/2020) Social History household members: other details: Lives alone housing: apartment Smoking Status: Former smoker pack-years: 150 how long ago did patient quit smoking: Over a year ago alcohol intake: never substance use type: does not use caffeine: Yes Type: coffee Number of servings: 1 ROS ROS Narrative Unable to obtain full ROS due to mental status however reports she does feels generally weak and unwell and has shortness of breath and cough Vital Signs Vital Signs Vital Signs: 09/11/22 13:48 09/11/22 13:52 09/11/22 13:52 Temperature 97.5 F L 97.8 F 97.8 F Temperature Source Temporal Temporal Temporal Pulse Rate 82 82 82 Respiratory Rate 21 H 19 H 19 H Blood Pressure 127/43 H 127/43 H Blood Pressure Mean 71 71 Pulse Ox 100 100 100 Oxygen Delivery Method Non-Rebreather Non-Rebreather Non-Rebreather Oxygen Flow Rate (L/min) 15 15 15 09/11/22 15:00 09/11/22 15:00 09/11/22 16:57 Temperature 97.1 F L 96.9 F L Temperature Source Oral Temporal Pulse Rate 86 86 79 Respiratory Rate 23 H 23 H 24 H Blood Pressure 132/51 H 132/51 H 111/52 L Blood Pressure Mean 78 78 71 Pulse Ox 94 94 98 Oxygen Delivery Method Nasal Cannula Nasal Cannula Nasal Cannula Oxygen Flow Rate (L/min) 5 5 5 Weight Weight: 97.6 kg Body Mass Index (BMI) 42.0 Physical Exam Narrative General: Easily wakes up but somewhat confused, falls back asleep quickly HEENT: Normocephalic Eyes: Anicteric, normal conjunctiva, extraocular movements grossly intact Neck: Supple Respiratory: Diminished at the bases, normal respiratory effort Cardiovascular: Regular rate GI: Soft, nontender, nondistended Extremities: No edema Musculoskeletal: Moving all extremities Neuro: No overt focal neurological deficits Skin: Bruises on extremities Psych: Cooperative Results Lab / Micro Data Result Diagrams: 09/11/22 14:13 09/11/22 14:13 Labs: Laboratory Results - last 24 hr 09/11/22 14:13: WBC 4.8, RBC 3.27 L, Hgb 11.2 L, Hct 36.5 L, MCV 111.6 H, MCH 34.3 H, MCHC 30.7 L, RDW Std Deviation 61.2 H, RDW Coeff of Kusum 15.0 H, Plt Count 114 L, MPV 11.5, Immature Gran % (Auto) 0.200, Neut % (Auto) 69.8, Lymph % (Auto) 13.4 L, Wilkes % (Auto) 14.0 H, Eos % (Auto) 1.3, Baso % (Auto) 1.3 H, Absolute Neuts (auto) 3.4, Absolute Lymphs (auto) 0.64 L, Nucleated RBC % 0 09/11/22 14:13: Sodium 139, Potassium 3.7, Chloride 98, Carbon Dioxide 31.0, Anion Gap 10, BUN 21 H, Creatinine 3.14 H, Estim Creat Clear Calc 10.95, Est GFR (MDRD) Af Amer 19 L, Est GFR (MDRD) Non-Af 15 L, BUN/Creatinine Ratio 6.7 L, Glucose 274 H, Calcium 8.8, Total Bilirubin 1.20 H, AST 43 H, ALT 18, Alkaline Phosphatase 93, Troponin I High Sens 83 H, Total Protein 6.6, Albumin 2.8 L, Globulin 3.8, Albumin/Globulin Ratio 0.7 L, Prolactin 31.7 09/11/22 14:13: B-Natriuretic Peptide 269.5 H 09/11/22 15:00: Lactic Acid 2.9 H* ABG Data ABG results: ABG 09/11/22 16:36 Specimen Type ART Sample Site R Radial pH 7.44 Bicarbonate Actual 31.6 H Total CO2 33 Base Excess 8 H O2 Saturation 93 L ABG pCO2 46.3 H ABG pO2 64 L Mike Test Positive O2 Delivery Device Cannula Liter Flow 5.[address] 09/11/22 14:03 IMPRESSION: No acute intracranial process. Electronically Signed: Aby Ashford MD at 15:04 EDT , Chest X-Ray 09/11/22 14:03 IMPRESSION: Bilateral pleural effusions, cannot exclude associated bibasilar consolidation. Pulmonary venous congestion associated with interstitial edema. Electronically Signed: Aby Ashford MD at 15:22 EDT , Assessment & Plan Assessment/Plan (1) Hypoxic episode: (2) Elevated troponin: (3) Lactic acidosis: (4) Generalized weakness: PLAN: Plan #Acute hypoxia on chronic hypoxia with 2 L O2 at bedtime, COPD, ELENITA on CPAP -Chest x-ray demonstrated bilateral pleural effusions and cannot exclude bibasilar consolidation -Has had some increased cough and shortness of breath per her daughter in addition to hypoxia -Patient positive for influenza B, will start oseltamavir, received 30 right now and then 30 mg after each dialysis -BNP 269 which is lower than it has been previously and she does not appear overloaded -Sputum culture ordered, COVID-negative -Incentive spirometry -DuoNebs, Mucinex -CPAP nightly #Encephalopathy, likely metabolic -Initially hypoxic and was significantly altered, mental status beginning to improve with improved PO2 -CT head negative -Does have history of seizure disorder, prolactin 31.7 -Had not had noted seizure-like activity but will need to monitor closely, continue Vimpat #Generalized weakness -Sat in chair for 24 hours per daughter -We will obtain CK -PT/OT -Has also has recent falls, has right arm scrape currently covered by dressing daughter placed #History of seizure disorder -Continue Vimpat #Lactic acidosis -Likely 2/2 influenza B infection -Did have burning on urination however, UA and urine culture to be obtained -Given elevated troponin and lactic acid that increased and altered mental status will treat empirically with antibiotics, if cultures negative can DC antibiotics #Burning on urination -We will obtain UA and urine culture as well as blood culture -We will treat with antibiotics as patient at high risk for decompensation lactic acid increased, afebrile, do not believe she is septic at this time but patient pancultured. Has grown Enterococcus in the past so started on bank and additionally given Rocephin, can escalate pending clinical picture #NSTEMI likely type II -Initial troponin 83, trend troponin -Had denied chest pain, EKG low voltage with nonspecific changes -We will obtain echocardiogram #Type 2 diabetes mellitus -Sliding scale insulin and glucose checks #End-stage renal disease on HD -On HD T//Mon -We will consult Dr. Steward her medical corps officer #Cancer of the left breast -Follows with Dr. Adams on an outpt basis #Morbid obesity -BMI 42 -Complicates care and management #DVT ppx: Heparin subcu Lizabeth Willis MD Time spent in the patient's overall evaluation,decision-making process, review of diagnostic data, adjustment of management, discussion with other providers, nursing nursing and ancillary staff involved in patient's care documentation, 60 minutes Charges/Coding Visit Charges Inpatient E&M: 90719 Init Hosp L2
--- NOTE | 2022-09-11 17:41 | ECHOD_ITS ---
Reason For Study: SOB, NSTEMI Procedure This was a 2D Doppler, Color Flow transthoracic echocardiogram. The study was technically limited. The study was technically difficult. Limited views were obtained. Patient could not tolerate images taken from apical window d/t extreme breast pain. Patient refused that portion of the test. Left Ventricle Normal left ventricle. Left ventricular systolic function is normal. The estimated ejection fraction is 55 %. No regional wall motion abnormalities noted. Right Ventricle Moderately dilated right ventricle. Mild to moderate global right ventricular systolic dysfunction. Tricuspid Valve Normal tricuspid valve. Mild tricuspid valve insufficiency. Pulmonary artery systolic pressure is 30 mmHg. Great Vessels Normal aortic root. Pericardium/Pleural Small pericardial effusion. MMode/2D Measurements & Calculations LVIDd: 3.8 cm IVSd: 1.1 cm LA dimension: 3.7 cm LVIDs: 2.2 cm LVPWd: 1.1 cm FS: 42.5 % Doppler Measurements & Calculations PA V2 max: 109.3 cm/sec TR max radha: 259.9 cm/sec TR max P.0 mmHg ECHO/Echo Complete Interpretation Summary Normal left ventricle. Left ventricular systolic function is normal. The estimated ejection fraction is 55 %. Moderately dilated right ventricle. Pulmonary artery systolic pressure is 30 mmHg. Ordering Physician: Lizabeth Willis Referring Physician: Gissel Arriola M.D. Performed By: Harjinder Hayes RCS
[2022-09-11 18:21] LABS: CPK Total, Creatine Kinase 92 U/L (26-192)
[2022-09-11 19:11] LABS: Reflex Lactate? Y
[2022-09-11] MEDS: Ipratropium/Albuterol Sulfate 3 ML AMPUL.NEB INHALATION (19:24)
[2022-09-11 21:34] LABS: Lactic Acid 3.2 mmol/L (0.4-1.9)
--- NOTE | 2022-09-11 22:04 | PCM.HOSP.N ---
Hospitalist Note MAP < 60, drowsy w/ oral medication hold but if improves will start the midodrine that has already been ordered upon admission, empiric abx added, + flu positive (B) with full panel pending, will given small bolus and repeat as needed with ESRD status, HD T/Th/Sat but could certainly be evaluated earlier, following w/ Dr. Steward.
[2022-09-11 23:08] LABS: Troponin-I HS 74 pg/mL (3.0-54.0)
[2022-09-11 23:20] LABS: Lactic Acid 3.4 mmol/L (0.4-1.9)
[2022-09-11] MEDS: Heparin Injection (Vial) 5,000 UNIT/ML VIAL 5000 UNIT SC (23:41)
[2022-09-11] MEDS: Insulin Glargine-YFGN 100 UNIT/ML Pen 7 UNIT SC (23:41)
[2022-09-11] MEDS: Nystatin Powder 15gm Bottle 1 APPLIC TOPICAL (23:41)
[2022-09-11] MEDS: Insulin Lispro 100 UNIT/ML INSULN.PEN SC (23:46)
[2022-09-12] VITALS (9 sets, daily range): BP systolic 111–158; BP diastolic 50–55; PULSE 81–92; RESP 14–24; TEMP 36.6–37.4; O2SAT 92–97
[2022-09-12 00:15] LABS: Bedside Glucose 219 mg/dL (74-106)
--- NOTE | 2022-09-12 01:54 | PN.HOSP_ITS ---
Hospitalist Note Patient per discussion with staffing associate mildly improved, down to 3L NC from prior 5L NC, rate also notably improved in the 80s.
--- NOTE | 2022-09-12 01:54 | PCM.HOSP.N ---
Hospitalist Note Patient per discussion with staff radiation therapist mildly improved, down to 3L NC from prior 5L NC, rate also notably improved in the 80s.
[2022-09-12] MEDS: Ipratropium/Albuterol Sulfate 3 ML AMPUL.NEB INHALATION ×4 (02:30→19:09)
[2022-09-12 02:46] LABS: Reflex Lactate? Y
--- NOTE | 2022-09-12 02:50 | CPS ---
Pt hasn't had CPAP at home for years, daughter said it got lost in the move.
[2022-09-12 03:15] LABS: Absolute Lymphocyte Count 0.74 X10^3/uL (0.83-4.51); Absolute Neutrophil Count 3.6 X10^3/uL (2.0-7.7); Basophil# 0.06 X10^3/uL; Basophil% 1.2 % (0-1); Eosinophils% 1.9 % (0-5); Hematocrit 35.5 % (37-47); Hemoglobin 10.9 g/dL (12.0-15.0); Lymphocyte # 0.74 X10^3/ul (0.83-4.51); Lymphocyte % 14.3 % (19-41); Mean Corp Hgb Conc 30.7 g/dL (32-36); Mean Corpuscular Volume 110.6 fL (81-99); Mean Platelet Vol. 10.8 fl (6.2-12.0); Monocyte# 0.64 X10^3/uL; Monocyte% 12.4 % (0-10); NRBC Flagged by Analyzer 0 % (0-5); Neutrophil # 3.63 X10^3/uL (2.7-7.7); POSITIVE COUNT YES; Platelet Count 86 K/mm3 (150-450); RBC Distribution Width CV 14.9 % (11.6-14.6); RBC Distribution Width SD 60.4 fl (35.1-43.9); Red Blood Count 3.21 M/mm3 (4.2-5.4); White Blood Count 5.2 K/mm3 (4.4-11.0)
[2022-09-12 03:46] LABS: ALB/GLOB Ratio 0.8 RATIO (0.9-2.4); AST(SGOT) 34 U/L (15-37); Alanine Aminotransfer ALT/SGPT 17 U/L (13-56); Albumin, Serum 2.6 g/dL (3.2-5.0); Alkaline Phosphatase 92 U/L (45-117); Anion Gap 9 (5-15); BUN 24 mg/dL (7-18); Calcium,Total 8.8 mg/dL (8.5-10.1); Chloride 97 mmol/L (98-107); Creatinine, Serum 3.44 mg/dL (0.55-1.02); EST Glomerular Filtration Rate 14 mL/min (>60); Est Glom Filt Rate - Afr Amer 17 mL/min (>60); Estimated Creatinine Clearance 9.99 ml/min; Globulin 3.4 g/dL (2.2-4.2); Glucose 192 mg/dL (74-106); Potassium 3.5 mmol/L (3.5-5.1); Sodium Level 136 mmol/L (136-145)
[2022-09-12 04:03] LABS: Lactic Acid 3.3 mmol/L (0.4-1.9)
[2022-09-12] MEDS: Heparin Injection (Vial) 5,000 UNIT/ML VIAL 5000 UNIT SC ×3 (07:01→22:51)
[2022-09-12] MEDS: Insulin Lispro 100 UNIT/ML INSULN.PEN SC ×4 (07:03→22:48)
[2022-09-12 07:16] LABS: Bedside Glucose 183 mg/dL (74-106)
[2022-09-12] MEDS: Nystatin Powder 15gm Bottle 1 APPLIC TOPICAL ×3 (07:48→22:47)
[2022-09-12] MEDS: Midodrine HCl 5 MG Tablet 10 MG PO ×2 (09:05→16:46)
[2022-09-12] MEDS: guaiFENesin 1,200 MG Tablet 1200 MG PO ×2 (09:05→22:47)
[2022-09-12] MEDS: Pantoprazole Sodium 20 MG Tablet PO (09:05)
[2022-09-12] MEDS: Aspirin E.C. 81 MG Tablet PO (09:06)
[2022-09-12] MEDS: Gabapentin 100 MG Capsule 200 MG PO ×2 (09:11→22:46)
[2022-09-12] MEDS: Insulin Glargine-YFGN 100 UNIT/ML Pen 7 UNIT SC ×2 (09:11→22:47)
--- NOTE | 2022-09-12 09:27 | PN.HOSP_ITS ---
Subjective Subjective Doing well, no issues overnight. Breathing little bit better. Objective Data Objective Data Vital Signs: Vital Signs Temp Pulse Resp BP Pulse Ox O2 Del Method O2 Flow Rate 98.1 F 85 15 120/52 L 94 Nasal Cannula 5 09/12/22 08:57 09/12/22 08:57 09/12/22 08:57 09/12/22 08:57 09/12/22 08:57 09/12/22 08:57 09/12/22 08:57 Oxygen Flow Rate (L/min) 5 Oxygen Delivery Method Nasal Cannula Weight: 201 lb 8.04 oz Body Mass Index (BMI) 39.3 Intake & Output: Intake and Output for Last 24 Hours 09/11/22 09/12/22 09/13/22 03:59 03:59 03:59 Intake Total 1060 / 1060 Balance 1060 / 1060 Lab / Micro Data Result Diagrams: 09/12/22 03:06 09/12/22 03:06 Labs: Laboratory Results - last 24 hr 09/11/22 14:13: WBC 4.8, RBC 3.27 L, Hgb 11.2 L, Hct 36.5 L, MCV 111.6 H, MCH 34.3 H, MCHC 30.7 L, RDW Std Deviation 61.2 H, RDW Coeff of Kusum 15.0 H, Plt Count 114 L, MPV 11.5, Immature Gran % (Auto) 0.200, Neut % (Auto) 69.8, Lymph % (Auto) 13.4 L, [place] % (Auto) 14.0 H, Eos % (Auto) 1.3, Baso % (Auto) 1.3 H, Absolute Neuts (auto) 3.4, Absolute Lymphs (auto) 0.64 L, Nucleated RBC % 0 09/11/22 14:13: Sodium 139, Potassium 3.7, Chloride 98, Carbon Dioxide 31.0, Anion Gap 10, BUN 21 H, Creatinine 3.14 H, Estim Creat Clear Calc 10.95, Est GFR (MDRD) Af Amer 19 L, Est GFR (MDRD) Non-Af 15 L, BUN/Creatinine Ratio 6.7 L, Glucose 274 H, Calcium 8.8, Total Bilirubin 1.20 H, AST 43 H, ALT 18, Alkaline Phosphatase 93, Troponin I High Sens 83 H, Total Protein 6.6, Albumin 2.8 L, Globulin 3.8, Albumin/Globulin Ratio 0.7 L, Prolactin 31.7 09/11/22 14:13: B-Natriuretic Peptide 269.5 H 09/11/22 14:38: Total Creatine Kinase 92 09/11/22 15:00: Lactic Acid 2.9 H* 09/11/22 20:50: Lactic Acid 3.2 H* 09/11/22 22:38: Troponin I High Sens 74 H 09/11/22 22:38: Lactic Acid 3.4 H* 09/11/22 22:39: POC Glucose 219 H 09/12/22 03:06: WBC 5.2, RBC 3.21 L, Hgb 10.9 L, Hct 35.5 L, MCV 110.6 H, MCH 34.0 H, MCHC 30.7 L, RDW Std Deviation 60.4 H, RDW Coeff of Kusum 14.9 H, Plt Count 86 L, MPV 10.8, Immature Gran % (Auto) 0.200, Neut % (Auto) 70.0, Lymph % (Auto) 14.3 L, [place] % (Auto) 12.4 H, Eos % (Auto) 1.9, Baso % (Auto) 1.2 H, Absolute Neuts (auto) 3.6, Absolute Lymphs (auto) 0.74 L, Nucleated RBC % 0 09/12/22 03:06: Sodium 136, Potassium 3.5, Chloride 97 L, Carbon Dioxide 30.0, Anion Gap 9, BUN 24 H, Creatinine 3.44 H, Estim Creat Clear Calc 9.99, Est GFR (MDRD) Af Amer 17 L, Est GFR (MDRD) Non-Af 14 L, BUN/Creatinine Ratio 7.0 L, Glucose 192 H, Calcium 8.8, Total Bilirubin 0.60, AST 34, ALT 17, Alkaline Phosphatase 92, Total Protein 6.0 L, Albumin 2.6 L, Globulin 3.4, [place] min/Globulin Ratio 0.8 L 09/12/22 03:06: Lactic Acid 3.3 H* 09/12/22 06:55: POC Glucose 183 H Micro: Microbiology 09/11/22 19:20 Mucosa - Nasopharyngeal Respiratory Panel (PCR) - Final 09/11/22 18:20 Nasal Secretion SARS-CoV-2 & FLU Antigen (Rapid) - Final Influenzae B ABG Data ABG results: ABG 09/11/22 16:36 Specimen Type ART Sample Site R Radial pH 7.44 Bicarbonate Actual 31.6 H Total CO2 33 Base Excess 8 H O2 Saturation 93 L ABG pCO2 46.3 H ABG pO2 64 L Mike Test Positive O2 Delivery Device Cannula Liter Flow 5.0 Radiography Diagnostic Testing: Radiology Impression Brain CT 09/11/22 14:03 IMPRESSION: No acute intracranial process. Electronically Signed: Aby Ashford MD at 15:04 EDT Reading Location ID and State: [facility] / [place] Tel , Service support , Chest X-Ray 09/11/22 14:03 IMPRESSION: Bilateral pleural effusions, cannot exclude associated bibasilar consolidation. Pulmonary venous congestion associated with interstitial edema. Electronically Signed: Aby Ashford MD at 15:22 EDT Reading Location ID and State: [facility] / [place] Tel , Service support , Physical Exam Narrative General: Alert, Oriented x3, Cooperative, No apparent distress HEENT: Atraumatic, PERRLA, EOMI, Normocephalic Oral: Moist Mucosa Neck: Supple, No JVD Lungs: Diminished, Normal air movement, No rhonchi, No wheeze, No rales Cardiovascular: Regular rate, Regular Rhythm, Normal S1, Normal S2, No murmurs Abdomen: Soft, Non Tender, Non-Distended, No Hepato-splenomegaly Extremities: No edema, Capillary Refill Less than 3 Seconds Skin: No rashes, No breakdown, some bruising Musculoskeletal: No Tenderness to Palpation of Joints or Extremities Neurological: Cranial nerves II-XII grossly intact, Motor Exam 5/5 strength throughout, Sensory exam intact to light touch and pain Psych/Mental Status: Normal Affect, Appropriate Assessment & Plan Assessment/Plan (1) Hypoxic episode: (2) Elevated troponin: (3) Lactic acidosis: (4) Generalized weakness: PLAN: Plan 1.? Acute encephalopathy possibly metabolic due to influenza B and acute on chronic hypoxia/history of seizure disorder/debility ? Encephalopathy has resolved, repeat testing for influenza B was negative ? She has had multiple recent echoes, continue with midodrine ? Continue with oseltamavir, COVID-negative, cultures are unremarkable so far ? Continue with Vimpat ? Plan to discharge back to SNF ? She did have an elevated lactic acidosis however this has resolved, she does not make a significant amount of urine so unable to obtain a urine culture ? Blood cultures are pending so we will continue with Rocephin and vancomycin until those cultures result, if negative can discontinue antibiotics 2.? Chronic diastolic CHF/paroxysmal A. fib/HTN/HLD ? Blood pressures are little bit on the low side, she is not on any blood pressure medications at home ? Non-STEMI unlikely, troponin resolving without any intervention and she does have renal failure ? Continue with Lipitor and aspirin 3.? 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 Appreciate nephrology's assistance ? Continue with insulin as well as Accu-Cheks ACH S ? We will make adjustments as necessary ? Discussed weight loss and lifestyle, BMI of 42 ? Hemoglobin is at baseline 4. GERD ? Stable ? Continue with PPI DVT: Heparin Charges/Coding Visit Charges Inpatient E&M: 87750 Subs Hosp L2
--- NOTE | 2022-09-12 10:40 | CASEMGMT ---
RN?CM?CUBING MACHINE TENDER?CM?to room to meet with patient for initial transition planning/care coordination?assessment.?RN?CM?introduced self and role at [facility].? Pt voices understanding and consents to?assessment?at this time.? Pt resting in bed in no distress at this time.? Pt is A/O at this time and answers all questions appropriately.?? Care providers, pharmacy, and demographics verified/updated at this time. PCP: Dr Arriola Specialists: Dr Steward, teacher aide clerical; Dr Sin, aviation ordnance officer; Dr Wheat, radio recorder, Dr Brewer, neurologist Pt goes to HD at [facility] TTS 1100 Preferred Pharmacy: [place] Insurance: [employer] [facility], [facility] Prescription Benefit: yes Living Will/HPOA: Has LW and HCPOA, who is her daughter Beverly Butler LNOK: daughter/POA-Beverly. Son-Jose G Living Arrangements: Patient lives alone in a 1st floor apartment with no steps to enter. Pt has been indep @ home, but has been getting more weak and had a fall last week. Transportation: Ride Access thru [facility], dtr DME/HHC: Patient has shower chair, cane, lift chair, grab bars, walker, rollator, wheelchair, pulse ox, and home oxygen through [facility]. Patient has aide services through [employer] 3hrs/day 3day/week with Priscilla. Patient has Arielle TREVIÑO. SNF: [facility]--just discharged there after last admission in Aug. Pt states she was there for about 3 weeks before discharging back home. Pt states she would like to return to [facility] @ d/c PLAN:??SNF. Pt states would like to return to [facility]. Katelynn VALENCIA, made aware. Ki WEIRN?RN?CM
[2022-09-12 11:14] LABS: Phosphorus 3.1 mg/dL (2.5-4.9)
[2022-09-12] MEDS: Folic Acid/Vitamin B Comp W-C 1 Capsule 1 CAP PO (11:51)
[2022-09-12] MEDS: Lacosamide 100 MG Tablet PO ×2 (11:51→22:45)
--- NOTE | 2022-09-12 12:19 | CASEMGMT ---
Per RN CM and physician patient would like to go to [facility] at discharge. SW sent initial referral to [facility]. Katelynn ANDRADE
[2022-09-12 12:20] LABS: Bedside Glucose 184 mg/dL (74-106)
--- NOTE | 2022-09-12 13:08 | PCM.RX.CS ---
Consult Pharmacy has been consulted to manage selected antiobiotic: Vancomycin Type of Consult: New start Suspected Infection: Pneumonia Labs: Sodium 136 mmol/L (136-145) 09/12/22 03:06 Potassium 3.5 mmol/L (3.5-5.1) 09/12/22 03:06 Chloride 97 mmol/L (98-107) L 09/12/22 03:06 Carbon Dioxide 30.0 mmol/L (21.0-32.0) 09/12/22 03:06 Anion Gap 9 (5-15) 09/12/22 03:06 BUN 24 mg/dL (7-18) H 09/12/22 03:06 Creatinine 3.44 mg/dL (0.55-1.02) H 09/12/22 03:06 Est GFR (MDRD) Af Amer 17 mL/min (>60) L 09/12/22 03:06 Est GFR (MDRD) Non-Af 14 mL/min (>60) L 09/12/22 03:06 BUN/Creatinine Ratio 7.0 RATIO (10-20) L 09/12/22 03:06 Glucose 192 mg/dL (74-106) H 09/12/22 03:06 Microbiology: Microbiology 09/11/22 19:20 Mucosa - Nasopharyngeal Respiratory Panel (PCR) - Final 09/11/22 18:20 Nasal Secretion SARS-CoV-2 & FLU Antigen (Rapid) - Final Influenzae B Goal Trough: 15-20 mcg/mL Pharmacy Plan for Drug Dosing: NEW START IV VANCOMYCIN Consulting Physician: Dr. Willis Indication: Pneumonia Goal Trough: 15-20 SrCr: Dialysis Dosing CrCl: Comments: pt is on a Monday, , Monday dialysis schedule Vancomycin Dose: pt received a 2000mg dose on 09/12/22 at 0023. recommend a 750mg dose post dialysis on 09/13/22 Pending Level: pre dialysis random level on 09/15/22 Pharmacy Service will continue to monitor and adjust dosing as required. Follow-Up Labs: Trough Vancomycin - 09/15/22 at 0600 (random level)
[2022-09-12 17:05] LABS: Bedside Glucose 173 mg/dL (74-106)
[2022-09-12] MEDS: Atorvastatin Calcium 40 MG Tablet PO (22:46)
[2022-09-13] VITALS (14 sets, daily range): BP systolic 107–147; BP diastolic 33–52; PULSE 83–94; RESP 14–28; TEMP 36.5–37.3; O2SAT 92–97
[2022-09-13] MEDS: Ipratropium/Albuterol Sulfate 3 ML AMPUL.NEB INHALATION ×4 (01:37→19:20)
[2022-09-13 03:15] LABS: Bedside Glucose 185 mg/dL (74-106)
[2022-09-13] MEDS: Heparin Injection (Vial) 5,000 UNIT/ML VIAL 5000 UNIT SC ×3 (05:05→22:26)
[2022-09-13] MEDS: Nystatin Powder 15gm Bottle 1 APPLIC TOPICAL ×3 (05:05→22:31)
[2022-09-13 05:08] LABS: Absolute Lymphocyte Count 0.54 X10^3/uL (0.83-4.51); Absolute Neutrophil Count 3.9 X10^3/uL (2.0-7.7); Basophil# 0.06 X10^3/uL; Basophil% 1.1 % (0-1); Eosinophil# 0.09 X10^3/uL; Eosinophils% 1.7 % (0-5); Hematocrit 35.9 % (37-47); Hemoglobin 10.9 g/dL (12.0-15.0); Lymphocyte # 0.54 X10^3/ul (0.83-4.51); Lymphocyte % 10.2 % (19-41); Mean Corp Hgb Conc 30.4 g/dL (32-36); Mean Corpuscular Volume 111.8 fL (81-99); Mean Platelet Vol. 10.6 fl (6.2-12.0); Monocyte# 0.69 X10^3/uL; NRBC Flagged by Analyzer 0 % (0-5); Neutrophil # 3.89 X10^3/uL (2.7-7.7); Neutrophil % 73.6 % (47-70); POSITIVE COUNT YES; POSITIVE DIFFERENTIAL YES; Platelet Count 85 K/mm3 (150-450); RBC Distribution Width CV 15.1 % (11.6-14.6); RBC Distribution Width SD 62.2 fl (35.1-43.9); Red Blood Count 3.21 M/mm3 (4.2-5.4); White Blood Count 5.3 K/mm3 (4.4-11.0)
[2022-09-13 05:11] LABS: Differential Indicated SCAN CRITERIA MET
[2022-09-13 05:35] LABS: Anion Gap 10 (5-15); BUN 31 mg/dL (7-18); BUN/Creat Ratio 7.4 RATIO (10-20); Calcium,Total 8.8 mg/dL (8.5-10.1); Chloride 96 mmol/L (98-107); Creatinine, Serum 4.21 mg/dL (0.55-1.02); EST Glomerular Filtration Rate 11 mL/min (>60); Est Glom Filt Rate - Afr Amer 13 mL/min (>60); Estimated Creatinine Clearance 8.17 ml/min; Glucose 168 mg/dL (74-106); Potassium 4.1 mmol/L (3.5-5.1); Sodium Level 134 mmol/L (136-145)
[2022-09-13 05:40] LABS: Differential Comment SCANNED
[2022-09-13] MEDS: Insulin Lispro 100 UNIT/ML INSULN.PEN SC (06:26)
[2022-09-13 06:46] LABS: Bedside Glucose 158 mg/dL (74-106)
--- NOTE | 2022-09-13 09:02 | CASEMGMT ---
ANNIE sent [facility] pending insurance approval. Katelynn ANDRADE
--- NOTE | 2022-09-13 09:08 | PCM.CONS.R ---
Assessment & Plan Assessment/Plan (1) ESRD (end stage renal disease) on dialysis: PLAN: Dialysis arranged for today. (2) Hypoxic episode: PLAN: Oxygenation stable (3) Generalized weakness: (4) Closed head injury: (5) History of recent fall: (6) Iron deficiency anemia: PLAN: Hemoglobin 10.9 (7) Metabolic encephalopathy: (8) Breast pain, left: PLAN: Recent diagnosis with breast cancer (9) Diabetes mellitus type 2 in obese: HPI Consult Data Date of Consult: 09/13/22 HPI Narrative Reason for Consultation: ESRD HD TTS HPI Narrative: JAYDA WYATT, is a 76 F who presents to [facility] for confusion, altered mental status change. She has ESRD on dialysis Saturdays last treatment was on Monday. She presents with hypoxemia, cough, fall at home with diffuse ecchymosis on her shoulders, face. Patient unable to provide details with her encephalopathy. Denies fever chills or shortness of breath. She is a poor historian but is alert and oriented x3. She is due for dialysis today. Rapid test for influenza B was positive but resp panel was negative. She was recently diagnosed with left breast cancer. She was supposed to follow-up with PET scan COUNTS INCLUDE 234 BEDS AT [facility] Medical History (Updated 09/13/22 @ 09:[address] Christine Steward, ) Accidental fall into hole or opening in surface Acute and chronic respiratory failure (01/2021) Acute stroke due to ischemia Anemia of chronic disease Atrial fibrillation with rapid ventricular response (02/24/21) Walters esophagus Bipolar disorder Chronic cough Chronic heart failure with preserved ejection fraction (HFpEF) COPD (chronic obstructive pulmonary disease) COVID CPAP (continuous positive airway pressure) dependence Debility Depression Dialysis patient DM type 2 (diabetes mellitus, type 2) Esophageal reflux ESRD (end stage renal disease) on dialysis Essential hypertension Former smoker Gastric reflux Generalized anxiety disorder Generalized weakness History of edema History of heart attack History of tobacco abuse Hyperlipidemia Hypertension Hyponatremia Iron deficiency anemia Leg wound, right Multiple personality disorder Non-rheumatic tricuspid valve insufficiency Open wound of right lower extremity ELENITA on CPAP Peripheral neuropathy Personal history of Methicillin resistant Staphylococcus aureus infection Respiratory failure with hypoxia Restless legs syndrome Rheumatoid arthritis Right heart failure with reduced right ventricular function Right ventricular dilation Secondary pulmonary arterial hypertension Seizures Shortness of breath on exertion Thrombocytopenia Ulcer of toe of left foot Home Medications lacosamide 100 mg tablet (Vimpat) 100 mg PO BID seizures 02/22/21 [History Last Taken 02/10/22] latanoprost 0.005 % eye drops (Xalatan) 1 drp EACH EYE QPM eyes 08/16/21 [History Last Taken 02/09/22] insulin glargine 100 unit/mL (3 mL) subcutaneous pen (Lantus Solostar U-100 Insulin) 15 unit (0.15 mL) subcut BID DM #0 mL 08/17/21 [Rx Last Taken 02/10/22] aspirin 81 mg tablet,delayed release 81 mg PO DAILY HEALTH #90 tabs 03/14/22 [Rx Last Taken Unknown] calcium acetate(phosphat bind) 667 mg capsule 667 mg PO TIDCM vitamin 04/13/22 [History Last Taken Unknown] cholecalciferol (vitamin D3) 125 mcg (5,000 unit) tablet (Vitamin D3) 125 mcg PO KELLOGG vitamin 04/15/22 [History Last Taken Unknown] insulin lispro 100 unit/mL subcutaneous pen 1 sliding scale dose subcut USEASDIRECTD BLOOD SUGARS 04/15/22 [History Last Taken Unknown] gabapentin 100 mg capsule 200 mg PO BID NERVE PAIN #180 caps 05/11/22 [Rx Last Taken Unknown] acetaminophen 325 mg capsule 650 mg PO ONCE PRN Pain 05/20/22 [History Last Taken Unknown] atorvastatin 40 mg tablet 40 mg PO QHS CHOLESTEROL 06/24/22 [History Last Taken Unknown] midodrine 10 mg tablet 10 mg PO BID bp 06/24/22 [History Last Taken Unknown] lift chair #1 ea 08/04/22 [Rx Last Taken Unknown] omeprazole 20 mg capsule,delayed release 20 mg PO DAILY GERD #90 caps 08/08/22 [Rx Last Taken Unknown] cyclobenzaprine 10 mg tablet 10 mg PO DAILY PRN Take 1 hour prior to dialysis #20 tabs 08/25/22 [Rx Last Taken Unknown] Allergy/AdvReac Type Severity Reaction Status Date / Time Penicillins Allergy Severe Anaphylaxis Verified 09/11/22 13:53 ciprofloxacin [From Cipro] Allergy Rash Verified 09/11/22 13:53 codeine Allergy Shortness Verified 09/11/22 13:53 of breath Family History Mother Heart disease Diabetes Father Heart disease Brother Cancer Diabetes CAD (coronary artery disease) Myocardial infarction Sister Diabetes Kidney disease Heart disease Surgical History H/O: hysterectomy Hx of surgical procedure S/P arteriovenous (AV) fistula creation Vascular dialysis catheter in place (10/2020) Social History household members: other details: Lives alone housing: apartment Smoking Status: Former smoker pack-years: 150 how long ago did patient quit smoking: Over a year ago alcohol intake: never substance use type: does not use caffeine: Yes Type: coffee Number of servings: 1 ROS Review of Systems ROS Unobtainable: due to mental status and other Details: Awake, alert but poor historian Constitutional Constitutional: Reports weakness; Denies chills or fever(s) Eyes Eyes: Denies loss of vision Cardiovascular Cardiovascular: Reports edema; Denies chest pain or dyspnea on exertion Respiratory/Chest Respiratory/Chest: Reports dry cough Gastrointestinal Gastrointestinal: Reports anorexia; Denies abdominal pain, diarrhea, nausea or vomiting Genitourinary Genitourinary: Reports oliguria Musculoskeletal Musculoskeletal: Reports muscle weakness and other Details: Recent fall at home with diffuse ecchymosis Integumentary Integumentary: Reports other Details: Diffuse ecchymosis Neurologic Neurologic: Reports confusion, tremor(s) and weakness Psychiatric Psychiatric: Reports confusion Endocrine Endocrinology: Reports fatigue Hematologic/Lymphatic Hematologic/Lymphatic: Reports anemia Physical Exam Const alert and oriented x3 Constitutional Narrative: Poor historian Nutritional Appearance: morbidly obese Resp clear to auscultation bilaterally Resp Narrative: Poor inspiratory effort Cardio regular rate GI non-tender and non-distended Auscultation: normoactive bowel sounds Extremity General Extremity: AV fistula and edema bilateral Skin General Skin Exam: ecchymosis Neuro Sensorium / Orientation: awake Motor Exam: tremor Psych cooperative Mood & Affect: depressed Lab / Micro Data Result Diagrams: 09/13/22 04:17 09/13/22 04:17 Labs: Laboratory Results - last 24 hr 09/12/22 03:06: Phosphorus 3.1 09/12/22 11:53: POC Glucose 184 H 09/12/22 16:37: POC Glucose 173 H 09/12/22 22:27: POC Glucose 185 H 09/13/22 04:17: WBC 5.3, RBC 3.21 L, Hgb 10.9 L, Hct 35.9 L, MCV 111.8 H, MCH 34.0 H, MCHC 30.4 L, RDW Std Deviation 62.2 H, RDW Coeff of Kusum 15.1 H, Plt Count 85 L, MPV 10.6, Immature Gran % (Auto) 0.400, Neut % (Auto) 73.6 H, Lymph % (Auto) 10.2 L, [place] % (Auto) 13.0 H, Eos % (Auto) 1.7, Baso % (Auto) 1.1 H, Absolute Neuts (auto) 3.9, Absolute Lymphs (auto) 0.54 L, Nucleated RBC % 0, Differential Comment SCANNED 09/13/22 04:17: Sodium 134 L, Potassium 4.1, Chloride 96 L, Carbon Dioxide 28.0, Anion Gap 10, BUN 31 H, Creatinine 4.21 H, Estim Creat Clear Calc 8.17, Est GFR (MDRD) Af Amer 13 L, Est GFR (MDRD) Non-Af 11 L, BUN/Creatinine Ratio 7.4 L, Glucose 168 H, Calcium 8.8 09/13/22 06:25: POC Glucose 158 H Radiology Impression Echocardiogram 09/11/22 17:41 Interpretation Summary Normal left ventricle. Left ventricular systolic function is normal. The estimated ejection fraction is 55 %. Moderately dilated right ventricle. Pulmonary artery systolic pressure is 30 mmHg. Ordering Physician: Lizabeth Willis Referring Physician: Gissel Arriola M.D. Performed By: Harjinder Hayes RCS
--- NOTE | 2022-09-13 09:29 | PN.HOSP_ITS ---
Subjective Subjective Doing well, feels back to baseline. Objective Data Objective Data Vital Signs: Vital Signs Temp Pulse Resp BP Pulse Ox O2 Del Method O2 Flow Rate 98.8 F 83 18 147/44 H 92 Nasal Cannula 3 09/13/22 05:16 09/13/22 05:16 09/13/22 05:16 09/13/22 05:16 09/13/22 05:16 09/13/22 05:17 09/13/22 05:17 Oxygen Flow Rate (L/min) 3 Oxygen Delivery Method Nasal Cannula Weight: 201 lb 8.04 oz Body Mass Index (BMI) 39.3 Intake & Output: Intake and Output for Last 24 Hours 09/12/22 09/13/22 09/14/22 03:59 03:59 03:59 Intake Total 1060 / 1060 705 / 705 Output Total 250 / 250 Balance 1060 / 1060 455 / 455 Lab / Micro Data Result Diagrams: 09/13/22 04:17 09/13/22 04:17 Labs: Laboratory Results - last 24 hr 09/12/22 03:06: Phosphorus 3.1 09/12/22 11:53: POC Glucose 184 H 09/12/22 16:37: POC Glucose 173 H 09/12/22 22:27: POC Glucose 185 H 09/13/22 04:17: WBC 5.3, RBC 3.21 L, Hgb 10.9 L, Hct 35.9 L, MCV 111.8 H, MCH 34.0 H, MCHC 30.4 L, RDW Std Deviation 62.2 H, RDW Coeff of [place] 15.1 H, Plt Count 85 L, MPV 10.6, Immature Gran % (Auto) 0.400, Neut % (Auto) 73.6 H, Lymph % (Auto) 10.2 L, [place] % (Auto) 13.0 H, Eos % (Auto) 1.7, Baso % (Auto) 1.1 H, Absolute Neuts (auto) 3.9, Absolute Lymphs (auto) 0.54 L, Nucleated RBC % 0, Differential Comment SCANNED 09/13/22 04:17: Sodium 134 L, Potassium 4.1, Chloride 96 L, Carbon Dioxide 28.0, Anion Gap 10, BUN 31 H, Creatinine 4.21 H, Estim Creat Clear Calc 8.17, Est GFR (MDRD) Af Amer 13 L, Est GFR (MDRD) Non-Af 11 L, BUN/Creatinine Ratio 7.4 L, Glucose 168 H, Calcium 8.8 09/13/22 06:25: POC Glucose 158 H Micro: Microbiology 09/11/22 19:20 Mucosa - Nasopharyngeal Respiratory Panel (PCR) - Final 09/11/22 18:20 Nasal Secretion SARS-CoV-2 & FLU Antigen (Rapid) - Final Influenzae B Radiography Diagnostic Testing: Radiology Impression Echocardiogram 09/11/22 17:41 Interpretation Summary Normal left ventricle. Left ventricular systolic function is normal. The estimated ejection fraction is 55 %. Moderately dilated right ventricle. Pulmonary artery systolic pressure is 30 mmHg. Ordering Physician: Lizabeth Willis Referring Physician: Gissel Arriola M.D. Performed By: Harjinder Hayes RCS Physical Exam Narrative General: Alert, Oriented x3, Cooperative, No apparent distress HEENT: Right jaw ecchymosis, PERRLA, EOMI, Normocephalic Oral: Moist Mucosa Neck: Supple, No JVD Lungs: Diminished, Normal air movement, No rhonchi, No wheeze, No rales Cardiovascular: Regular rate, Regular Rhythm, Normal S1, Normal S2, No murmurs Abdomen: Soft, Non Tender, Non-Distended, No Hepato-splenomegaly Extremities: No edema, Capillary Refill Less than 3 Seconds Skin: No rashes, No breakdown, some bruising Musculoskeletal: No Tenderness to Palpation of Joints or Extremities Neurological: Cranial nerves II-XII grossly intact, Motor Exam 5/5 strength throughout, Sensory exam intact to light touch and pain Psych/Mental Status: Normal Affect, Appropriate Assessment & Plan Assessment/Plan (1) Hypoxic episode: (2) Elevated troponin: (3) Lactic acidosis: (4) Generalized weakness: PLAN: Plan 1.? Acute encephalopathy possibly metabolic due to influenza B and acute on chronic hypoxia/history of seizure disorder/debility ? Encephalopathy has resolved, repeat testing for influenza B was negative ? She has had multiple recent echoes, continue with midodrine ? Continue with oseltamavir, COVID-negative, cultures are unremarkable so far ? Continue with Vimpat ? She did have an elevated lactic acidosis however this has resolved, she does not make a significant amount of urine so unable to obtain a urine culture ? Blood cultures are pending so we will continue with Rocephin and vancomycin until those cultures result, if negative can discontinue antibiotics 2.? Chronic diastolic CHF/paroxysmal A. fib/HTN/HLD ? Blood pressures are little bit on the low side, she is not on any blood pressure medications at home ? Non-STEMI unlikely, troponin resolving without any intervention and she does have renal failure ? Continue with Lipitor and aspirin 3.? 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 Appreciate nephrology's assistance ? Continue with insulin as well as Accu-Cheks ACH S ? We will make adjustments as necessary ? Discussed weight loss and lifestyle, BMI of 42 ? Hemoglobin is at baseline 4. GERD ? Stable ? Continue with PPI DVT: Heparin Charges/Coding Visit Charges Inpatient E&M: 96723 Subs Hosp L2
--- NOTE | 2022-09-13 15:25 | DIALYSIS ---
Hemodialysis x 4 hrs completed. -3000ml UF. Stable t/o. tolerated well. Slept majority of tx. Hemostasis obtained, gauze/tape applied. Report to Johanny MALDONADO at bedside.
[2022-09-13] MEDS: Gabapentin 100 MG Capsule 200 MG PO ×2 (15:45→22:30)
[2022-09-13] MEDS: guaiFENesin 1,200 MG Tablet 1200 MG PO ×2 (15:45→22:30)
[2022-09-13] MEDS: Lacosamide 100 MG Tablet PO ×2 (15:46→22:30)
[2022-09-13] MEDS: Aspirin E.C. 81 MG Tablet PO (15:48)
[2022-09-13] MEDS: Midodrine HCl 5 MG Tablet 10 MG PO (15:49)
[2022-09-13] MEDS: Folic Acid/Vitamin B Comp W-C 1 Capsule 1 CAP PO (15:49)
[2022-09-13] MEDS: Pantoprazole Sodium 20 MG Tablet PO (15:49)
[2022-09-13] MEDS: Insulin Glargine-YFGN 100 UNIT/ML Pen 7 UNIT SC ×2 (15:51→22:26)
[2022-09-13 16:20] LABS: Bedside Glucose 110 mg/dL (74-106)
[2022-09-13] MEDS: Atorvastatin Calcium 40 MG Tablet PO (22:31)
[2022-09-13] MEDS: Oseltamivir Phosphate 30 MG Capsule PO (23:51)
[2022-09-14] VITALS (9 sets, daily range): BP systolic 118–144; BP diastolic 49–59; PULSE 83–93; RESP 16–20; TEMP 36.6–37.3; O2SAT 93–98
[2022-09-14 00:25] LABS: Bedside Glucose 109 mg/dL (74-106)
[2022-09-14] MEDS: Nystatin Powder 15gm Bottle 1 APPLIC TOPICAL ×3 (05:36→22:22)
[2022-09-14] MEDS: Heparin Injection (Vial) 5,000 UNIT/ML VIAL 5000 UNIT SC ×2 (05:36→22:58)
[2022-09-14 05:46] LABS: Anion Gap 10 (5-15); BUN 19 mg/dL (7-18); BUN/Creat Ratio 6.1 RATIO (10-20); Calcium,Total 8.4 mg/dL (8.5-10.1); Chloride 99 mmol/L (98-107); Creatinine, Serum 3.12 mg/dL (0.55-1.02); EST Glomerular Filtration Rate 15 mL/min (>60); Est Glom Filt Rate - Afr Amer 19 mL/min (>60); Estimated Creatinine Clearance 11.02 ml/min; Glucose 85 mg/dL (74-106); Potassium 3.5 mmol/L (3.5-5.1); Sodium Level 138 mmol/L (136-145)
[2022-09-14] MEDS: Ipratropium/Albuterol Sulfate 3 ML AMPUL.NEB INHALATION ×2 (06:52→12:45)
[2022-09-14 07:01] LABS: Bedside Glucose 116 mg/dL (74-106)
--- NOTE | 2022-09-14 09:58 | PCM.PN.HOSP ---
Subjective Subjective No issues overnight, did not sleep very well Objective Data Objective Data Vital Signs: Vital Signs Temp Pulse Resp BP Pulse Ox O2 Del Method O2 Flow Rate 99.2 F H 85 20 H 144/57 H 96 Nasal Cannula 4 09/14/22 03:32 09/14/22 06:52 09/14/22 06:52 09/14/22 03:32 09/14/22 06:52 09/14/22 08:03 09/14/22 08:03 Oxygen Flow Rate (L/min) 4 Oxygen Delivery Method Nasal Cannula Weight: 201 lb 8.04 oz Body Mass Index (BMI) 39.3 Intake & Output: Intake and Output for Last 24 Hours 09/13/22 09/14/22 09/15/22 03:59 03:59 03:59 Intake Total 705 / 705 615 / 615 Output Total 250 / 250 3000 / 3000 Balance 455 / 455 -2385 / -2385 Lab / Micro Data Result Diagrams: 09/13/22 04:17 09/14/22 04:14 Labs: Laboratory Results - last 24 hr 09/13/22 15:56: POC Glucose 110 H 09/13/22 22:23: POC Glucose 109 H 09/14/22 04:14: Sodium 138, Potassium 3.5, Chloride 99, Carbon Dioxide 29.0, Anion Gap 10, BUN 19 H, Creatinine 3.12 H, Estim Creat Clear Calc 11.02, Est GFR (MDRD) Af Amer 19 L, Est GFR (MDRD) Non-Af 15 L, BUN/Creatinine Ratio 6.1 L, Glucose 85, Calcium 8.4 L 09/14/22 06:35: POC Glucose 116 H Micro: Microbiology 09/11/22 19:00 Blood Culture (Wb) - Right Hand Blood Culture - Preliminary No growth in 48 hours. 09/11/22 18:50 Blood Culture (Wb) - Anticubital Right Blood Culture - Preliminary No growth in 48 hours. 09/11/22 19:20 Mucosa - Nasopharyngeal Respiratory Panel (PCR) - Final 09/11/22 18:20 Nasal Secretion SARS-CoV-2 & FLU Antigen (Rapid) - Final Influenzae B Physical Exam Narrative General: Alert, Oriented x3, Cooperative, No apparent distress HEENT: Right jaw ecchymosis, PERRLA, EOMI, Normocephalic Oral: Moist Mucosa Neck: Supple, No JVD Lungs: Diminished, Normal air movement, No rhonchi, No wheeze, No rales Cardiovascular: Regular rate, Regular Rhythm, Normal S1, Normal S2, No murmurs Abdomen: Soft, Non Tender, Non-Distended, No Hepato-splenomegaly Extremities: No edema, Capillary Refill Less than 3 Seconds Skin: No rashes, No breakdown, some bruising Musculoskeletal: No Tenderness to Palpation of Joints or Extremities Neurological: Cranial nerves II-XII grossly intact, Motor Exam 5/5 strength throughout, Sensory exam intact to light touch and pain Psych/Mental Status: Flat affect, Appropriate Assessment & Plan Assessment/Plan (1) Hypoxic episode: (2) Elevated troponin: (3) Lactic acidosis: (4) Generalized weakness: PLAN: Plan 1.? Acute encephalopathy possibly metabolic due to influenza B and acute on chronic hypoxia/history of seizure disorder/debility ? Encephalopathy has resolved, repeat testing for influenza B was negative ? She has had multiple recent echoes, continue with midodrine ? Continue with oseltamavir, COVID-negative, cultures are unremarkable so far ? Continue with Vimpat ? Blood cultures are negative, will discontinue Rocephin and vancomycin 2.? Chronic diastolic CHF/paroxysmal A. fib/HTN/HLD ? Blood pressures are little bit on the low side, she is not on any blood pressure medications at home ? Non-STEMI unlikely, troponin resolving without any intervention and she does have renal failure ? Continue with Lipitor and aspirin 3.? 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 Appreciate nephrology's assistance ? Continue with insulin as well as Accu-Cheks ACH S ? We will make adjustments as necessary ? Discussed weight loss and lifestyle, BMI of 42 ? Hemoglobin is at baseline 4. GERD ? Stable ? Continue with PPI DVT: Heparin Charges/Coding Visit Charges Inpatient E&M: 18589 Subs Hosp L2
[2022-09-14] MEDS: Menthol/Lanolin/Calamine/Znox 113 GM Tube 1 APPLIC TOPICAL ×2 (11:23→22:22)
--- NOTE | 2022-09-14 11:26 | CASEMGMT ---
Patient was approved to go to [facility]. SW notified physician. Plan: d/c to [facility] under skilled level of care. Katelynn ANDRADE
[2022-09-14 11:46] LABS: Bedside Glucose 103 mg/dL (74-106)
--- NOTE | 2022-09-14 12:37 | PCM.TXEXTCAR ---
Diet Diet Order/Speech Therapy: 09/12/22 12:38 Diet: Renal - ConsCHO - Dejon Cont Food consistency:: Regular Liquid Consistency:: Regular/Thin Dietary Modifications:: Sodium Restricted How many daily calories?: 1800 calorie Routine Orders/Code Status Routine Lab Work: CBC and BMP Code Status: DNRCC-A Wound(s) Right forearm: Wound Type: Skin Tear Right knee: Wound Type: Abrasion Therapies Physical Therapy: Eval and Treat Occupational Therapy: Eval and Treat Problem/Diagnosis (1) Hypoxic episode: Status: Acute Code(s): R09.02 - Hypoxemia (2) Elevated troponin: Status: Acute Code(s): R77.8 - Other specified abnormalities of plasma proteins (3) Lactic acidosis: Status: Acute Code(s): E87.20 - Acidosis, unspecified (4) Generalized weakness: Status: Acute Code(s): R53.1 - Weakness Plan 1.? Acute encephalopathy possibly metabolic due to influenza B and acute on chronic hypoxia/history of seizure disorder/debility ? Encephalopathy has resolved, repeat testing for influenza B was negative ? She has had multiple recent echoes, continue with midodrine ? Continue with oseltamavir, COVID-negative, cultures are unremarkable so far ? Continue with Vimpat ? Blood cultures are negative, will discontinue Rocephin and vancomycin 2.? Chronic diastolic CHF/paroxysmal A. fib/HTN/HLD ? Blood pressures are little bit on the low side, she is not on any blood pressure medications at home ? Non-STEMI unlikely, troponin resolving without any intervention and she does have renal failure ? Continue with Lipitor and aspirin 3.? 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 Appreciate nephrology's assistance ? Continue with insulin as well as Accu-Cheks ACH S ? We will make adjustments as necessary ? Discussed weight loss and lifestyle, BMI of 42 ? Hemoglobin is at baseline 4. GERD ? Stable ? Continue with PPI DVT: Heparin Allergies/Procedures Done in Hospital Allergies Penicillins Allergy (Severe, Verified 09/11/22 13:53) Anaphylaxis ciprofloxacin [From Cipro] Allergy (Verified 09/11/22 13:53) Rash codeine Allergy (Verified 09/11/22 13:53) Shortness of breath Procedures: 2-D Echocardiogram Type of Care/Length of Stay Estimated LOS: Convalescent Care Less Than 30 days Type of Care Needed: Skilled Rehab Potential: Fair Prognosis: Fair Additional Orders/Day of Discharge Day of Discharge: 09/14/22 Dietary and Speech Recommendations Dietitian Recommendations/Changes: Will adjust diet to 1800 calorie/consistent carbohydrate; Renal. Will offer ONS as needed if PO fails at meals; defer for now since PO at meals is good. Discharge Plan Admission Admit Date/Time: 09/11/22 17:31 Attending Provider: Lazaro Lee Primary Care Provider: Gissel Arriola Consulting Providers: Lizabeth Willis ; Christine Steward Discharge Orders/Prescriptions Prescriptions: Continued insulin lispro 100 unit/mL insulin pen 1 sliding scale dose subcut USEASDIRECTD Rx Instructions: 3-5 units SQ before meals acetaminophen 325 mg capsule 650 mg PO ONCE PRN (Reason: Pain) lacosamide [Vimpat] 100 mg tablet 100 mg PO BID calcium acetate(phosphat bind) 667 mg capsule 667 mg PO TIDCM latanoprost [Xalatan] 0.005 % Drops 1 drp EACH EYE QPM insulin glargine [Lantus Solostar U-100 Insulin] 100 unit/mL (3 mL) insulin pen 15 unit subcut BID Qty: 0 0RF cholecalciferol (vitamin D3) [Vitamin D3] 125 mcg (5,000 unit) tablet 125 mcg PO KELLOGG atorvastatin 40 mg tablet 40 mg PO QHS midodrine 10 mg tablet 10 mg PO BID Rx Instructions: 10 mg orally BID; do not give last dose of day after 6PM or within 4 hrs of bedtime aspirin 81 mg tablet,delayed release (DR/EC) 81 mg PO DAILY Qty: 90 1RF gabapentin 100 mg capsule 200 mg PO BID Qty: 180 3RF (DME) lift chair See Rx Instructions .Route .MEDSUPPLY Qty: 1 0RF Rx Instructions: As directed omeprazole 20 mg capsule,delayed release(DR/EC) 20 mg PO DAILY Qty: 90 3RF cyclobenzaprine 10 mg tablet 10 mg PO DAILY PRN (Reason: Take 1 hour prior to dialysis) Qty: 20 0RF Referrals / Follow Up: Gissel Arriola MD [Primary Care Provider] - Disposition Disposition (needs filled in before D/C Order can be placed): Detention Facility
--- NOTE | 2022-09-14 12:40 | PCM.DC.SUM ---
Providers Date of Admission: 09/11/22 Primary Care Physician: Dr. Gissel Arriola MD Consultations 09/12/22 05:55 Consult: Nephrology AM (NON MEDS) Consulting Provider: Christine Steward Reason for Consult: esrd on HD t// EMERGENT Consult: No MD Notified: Yes Date Notified: 09/11/22 Time Notified: 17:47 Method of Notification: Text Reason For Visit: ENCEPHALOPATHY Diagnosis Discharge Diagnosis (1) Hypoxic episode: Status: Acute Code(s): R09.02 - Hypoxemia (2) Elevated troponin: Status: Acute Code(s): R77.8 - Other specified abnormalities of plasma proteins (3) Lactic acidosis: Status: Acute Code(s): E87.20 - Acidosis, unspecified (4) Generalized weakness: Status: Acute Code(s): R53.1 - Weakness Medications at Discharge Home Medications lacosamide 100 mg tablet (Vimpat) 100 mg PO BID seizures 02/22/21 latanoprost 0.005 % eye drops (Xalatan) 1 drp EACH EYE QPM eyes 08/16/21 insulin glargine 100 unit/mL (3 mL) subcutaneous pen (Lantus Solostar U-100 Insulin) 15 unit (0.15 mL) subcut BID DM #0 mL 08/17/21 aspirin 81 mg tablet,delayed release 81 mg PO DAILY HEALTH #90 tabs 03/14/22 calcium acetate(phosphat bind) 667 mg capsule 667 mg PO TIDCM vitamin 04/13/22 cholecalciferol (vitamin D3) 125 mcg (5,000 unit) tablet (Vitamin D3) 125 mcg PO KELLOGG vitamin 04/15/22 insulin lispro 100 unit/mL subcutaneous pen 1 sliding scale dose subcut USEASDIRECTD BLOOD SUGARS 04/15/22 gabapentin 100 mg capsule 200 mg PO BID NERVE PAIN #180 caps 05/11/22 acetaminophen 325 mg capsule 650 mg PO ONCE PRN Pain 05/20/22 atorvastatin 40 mg tablet 40 mg PO QHS CHOLESTEROL 06/24/22 midodrine 10 mg tablet 10 mg PO BID bp 06/24/22 lift chair #1 ea 08/04/22 omeprazole 20 mg capsule,delayed release 20 mg PO DAILY GERD #90 caps 08/08/22 cyclobenzaprine 10 mg tablet 10 mg PO DAILY PRN Take 1 hour prior to dialysis #20 tabs 08/25/22 Hospital Course Operations None Procedures 2-D Echocardiogram Summary of Care Provided Minutes Spent on Discharge: 42 Hospital Course: Per HPI: JAYDA WYATT, is a 76 F with a history of end-stage renal disease on dialysis, COPD with 2 L O2, ELENITA on CPAP, left breast cancer, type 2 diabetes mellitus presented to [facility] 09/11/2022 with hypoxia and altered mental status.? Reportedly had been at home and was 82% and ultimately improved with Ambu bag.? She had a fall last week and has been progressively weaker since that time per daughter at bedside.? In ED she initially was somewhat difficult to arouse but improved with increased O2.? In ED had glucose of 274, lactic 2.9, troponin 83, as well as elevated BUN/creatinine but did have dialysis yesterday and completed her treatment reportedly, chest x-ray with bilateral pleural effusions and cannot exclude bibasilar consolidation.? ABG with a pH of 7.44, CO2 of 33, PO2 of the time at 64 hospitalist consulted for admission.? Patient seen in ED with daughter at bedside who provided significant part of the history as patient very tired.? Reportedly she had a fall about a week ago and has had increasing weakness and was in her chair for almost 24 hours before today because she was so weak and she called her daughter for assistance.? Daughter went there this morning and her SPO2 was 80% and she increased her to 4 L O2.? She had reportedly been reporting increased cough and shortness of breath over the past 2 days as well.? Patient unable to give any other meaningful history other than her left breast hurting. Hospital Course: 1.? Acute encephalopathy possibly metabolic due to influenza B and acute on chronic hypoxia/history of seizure disorder/debility ? Encephalopathy has resolved, repeat testing for influenza B was negative ? She has had multiple recent echoes, continue with midodrine ? Completed oseltamavir, COVID-negative ? Continue with Vimpat ? Blood cultures are negative, will discontinue Rocephin and vancomycin ? Discussed with her the plan for discharge to SNF today she expressed understanding of the risk benefits of going and would like to go today. 2.? Chronic diastolic CHF/paroxysmal A. fib/HTN/HLD ? Blood pressures are little bit on the low side, she is not on any blood pressure medications at home ? Non-STEMI unlikely, troponin resolving without any intervention and she does have renal failure ? Continue with Lipitor and aspirin 3.? 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 Appreciate nephrology's assistance ? Continue with insulin as well as Accu-Cheks ACH S ? We will make adjustments as necessary ? Discussed weight loss and lifestyle, BMI of 42 ? Hemoglobin is at baseline 4. GERD ? Stable ? Continue with PPI Weight / BMI Weight Weight: 201 lb 8.04 oz Body Mass Index (BMI) 39.3 ABG / Lab / Microbiology Data Result Diagrams: 09/13/22 04:17 09/14/22 04:14 Laboratory: Laboratory Results - last 24 hr 09/13/22 15:56: POC Glucose 110 H 09/13/22 22:23: POC Glucose 109 H 09/14/22 04:14: Sodium 138, Potassium 3.5, Chloride 99, Carbon Dioxide 29.0, Anion Gap 10, BUN 19 H, Creatinine 3.12 H, Estim Creat Clear Calc 11.02, Est GFR (MDRD) Af Amer 19 L, Est GFR (MDRD) Non-Af 15 L, BUN/Creatinine Ratio 6.1 L, Glucose 85, Calcium 8.4 L 09/14/22 06:35: POC Glucose 116 H 09/14/22 11:20: POC Glucose 103 Microbiology: Microbiology 09/11/22 19:00 Blood Culture (Wb) - Right Hand Blood Culture - Preliminary No growth in 48 hours. 09/11/22 18:50 Blood Culture (Wb) - Anticubital Right Blood Culture - Preliminary No growth in 48 hours. 09/11/22 19:20 Mucosa - Nasopharyngeal Respiratory Panel (PCR) - Final 09/11/22 18:20 Nasal Secretion SARS-CoV-2 & FLU Antigen (Rapid) - Final Influenzae B Meaningful Use Info Meaningful Use Diagnoses (Choose all that apply): None applicable Discharge Plan Admission Admit Date/Time: 09/11/22 17:31 Attending Provider: Lazaro Lee Primary Care Provider: Gissel Arriola Consulting Providers: Lizabeth Willis ; Christine Steward Discharge Orders/Prescriptions Prescriptions: Continued insulin lispro 100 unit/mL insulin pen 1 sliding scale dose subcut USEASDIRECTD Rx Instructions: 3-5 units SQ before meals acetaminophen 325 mg capsule 650 mg PO ONCE PRN (Reason: Pain) lacosamide [Vimpat] 100 mg tablet 100 mg PO BID calcium acetate(phosphat bind) 667 mg capsule 667 mg PO TIDCM latanoprost [Xalatan] 0.005 % Drops 1 drp EACH EYE QPM insulin glargine [Lantus Solostar U-100 Insulin] 100 unit/mL (3 mL) insulin pen 15 unit subcut BID Qty: 0 0RF cholecalciferol (vitamin D3) [Vitamin D3] 125 mcg (5,000 unit) tablet 125 mcg PO KELLOGG atorvastatin 40 mg tablet 40 mg PO QHS midodrine 10 mg tablet 10 mg PO BID Rx Instructions: 10 mg orally BID; do not give last dose of day after 6PM or within 4 hrs of bedtime aspirin 81 mg tablet,delayed release (DR/EC) 81 mg PO DAILY Qty: 90 1RF gabapentin 100 mg capsule 200 mg PO BID Qty: 180 3RF (DME) lift chair See Rx Instructions .Route .MEDSUPPLY Qty: 1 0RF Rx Instructions: As directed omeprazole 20 mg capsule,delayed release(DR/EC) 20 mg PO DAILY Qty: 90 3RF cyclobenzaprine 10 mg tablet 10 mg PO DAILY PRN (Reason: Take 1 hour prior to dialysis) Qty: 20 0RF Referrals / Follow Up: Gissel Arriola MD [Primary Care Provider] - Disposition Disposition (needs filled in before D/C Order can be placed): [facility] Charges/Coding Visit Charges Inpatient E&M: 52571 Disch Hosp >30min
[2022-09-14] MEDS: Midodrine HCl 5 MG Tablet 10 MG PO ×2 (13:10→19:05)
[2022-09-14] MEDS: Aspirin E.C. 81 MG Tablet PO (13:11)
[2022-09-14] MEDS: Pantoprazole Sodium 20 MG Tablet PO (13:11)
[2022-09-14] MEDS: Folic Acid/Vitamin B Comp W-C 1 Capsule 1 CAP PO (13:11)
[2022-09-14] MEDS: guaiFENesin 1,200 MG Tablet 1200 MG PO (13:12)
[2022-09-14] MEDS: Lacosamide 100 MG Tablet PO (13:12)
--- NOTE | 2022-09-14 13:49 | PHA.DC.MR ---
Pharmacy Service has performed discharge medication reconciliation for this patient. The patient's discharge medication list was reviewed for discrepancies and discrepancies were resolved. Home Medications lacosamide 100 mg tablet (Vimpat) 100 mg PO BID seizures 02/22/21 latanoprost 0.005 % eye drops (Xalatan) 1 drp EACH EYE QPM eyes 08/16/21 insulin glargine 100 unit/mL (3 mL) subcutaneous pen (Lantus Solostar U-100 Insulin) 15 unit (0.15 mL) subcut BID DM #0 mL 08/17/21 aspirin 81 mg tablet,delayed release 81 mg PO DAILY HEALTH #90 tabs 03/14/22 calcium acetate(phosphat bind) 667 mg capsule 667 mg PO TIDCM vitamin 04/13/22 cholecalciferol (vitamin D3) 125 mcg (5,000 unit) tablet (Vitamin D3) 125 mcg PO KELLOGG vitamin 04/15/22 insulin lispro 100 unit/mL subcutaneous pen 1 sliding scale dose subcut USEASDIRECTD BLOOD SUGARS 04/15/22 gabapentin 100 mg capsule 200 mg PO BID NERVE PAIN #180 caps 05/11/22 acetaminophen 325 mg capsule 650 mg PO ONCE PRN Pain 05/20/22 atorvastatin 40 mg tablet 40 mg PO QHS CHOLESTEROL 06/24/22 midodrine 10 mg tablet 10 mg PO BID bp 06/24/22 lift chair #1 ea 08/04/22 omeprazole 20 mg capsule,delayed release 20 mg PO DAILY GERD #90 caps 08/08/22 cyclobenzaprine 10 mg tablet 10 mg PO DAILY PRN Take 1 hour prior to dialysis #20 tabs 08/25/22
--- NOTE | 2022-09-14 14:32 | CASEMGMT ---
ANNIE called [facility] and arranged for patient to get picked up at 4p via cot. ANNIE sent orders, med list, and tile picker time to [facility] via [facility]. ANNIE notified RN, engineering secretary, and patient's daughter. ANNIE completed a 7000 on HENS. Plan: d/c to [facility] under skilled level of care on a convalescent stay. [facility] transported via [facility]. Katelynn ANDRADE
--- NOTE | 2022-09-14 15:02 | CASEMGMT ---
[facility] Katelynn Bui SENIOR ADMINISTRATIVE SUPPORT MENTAL TESTER
[2022-09-14 17:50] LABS: Bedside Glucose 94 mg/dL (74-106)
[2022-09-14 23:10] LABS: Bedside Glucose 122 mg/dL (74-106)
[2022-09-15] VITALS (9 sets, daily range): BP systolic 120–131; BP diastolic 41–50; PULSE 79–97; RESP 16–20; TEMP 36.6–37.1; O2SAT 93–94
--- NOTE | 2022-09-15 01:00 | NURSING ---
This nurse assume care of the patient at this time
[2022-09-15] MEDS: Ipratropium/Albuterol Sulfate 3 ML AMPUL.NEB INHALATION ×3 (01:26→19:29)
[2022-09-15 05:03] LABS: Anion Gap 14 (5-15); BUN 28 mg/dL (7-18); BUN/Creat Ratio 6.9 RATIO (10-20); Calcium,Total 8.6 mg/dL (8.5-10.1); Chloride 97 mmol/L (98-107); Creatinine, Serum 4.03 mg/dL (0.55-1.02); EST Glomerular Filtration Rate 11 mL/min (>60); Est Glom Filt Rate - Afr Amer 14 mL/min (>60); Estimated Creatinine Clearance 8.53 ml/min; Glucose 120 mg/dL (74-106); Potassium 3.9 mmol/L (3.5-5.1); Sodium Level 135 mmol/L (136-145)
[2022-09-15] MEDS: Heparin Injection (Vial) 5,000 UNIT/ML VIAL 5000 UNIT SC (05:46)
[2022-09-15] MEDS: Nystatin Powder 15gm Bottle 1 APPLIC TOPICAL (05:47)
[2022-09-15 06:40] LABS: Bedside Glucose 126 mg/dL (74-106)
--- NOTE | 2022-09-15 08:38 | PCM.PN.REN ---
Subjective Subjective sleepy, dialysis today Objective Data Objective Data Vital Signs: Vital Signs Temp Pulse Resp BP Pulse Ox O2 Del Method O2 Flow Rate 98.7 F 97 18 130/50 H 94 Nasal Cannula 4 09/15/22 03:24 09/15/22 03:24 09/15/22 03:24 09/15/22 03:24 09/15/22 03:31 09/15/22 03:31 09/15/22 03:31 Oxygen Flow Rate (L/min) 4 Oxygen Delivery Method Nasal Cannula Weight: 91.4 kg Body Mass Index (BMI) 39.3 Intake & Output: Intake and Output for Last 24 Hours 09/13/22 09/14/22 09/15/22 23:59 23:59 23:59 Intake Total 615 / 675 260 / 260 Output Total 3000 / 3000 0 / 0 0 / 0 Balance -2385 / -2325 260 / 260 0 / 0 Lab / Micro Data Result Diagrams: 09/13/22 04:17 09/15/22 04:08 Labs: Laboratory Results - last 24 hr 09/14/22 11:20: POC Glucose 103 09/14/22 17:28: POC Glucose 94 09/14/22 22:20: POC Glucose 122 H 09/15/22 04:08: Sodium 135 L, Potassium 3.9, Chloride 97 L, Carbon Dioxide 24.0, Anion Gap 14, BUN 28 H, Creatinine 4.03 H, Estim Creat Clear Calc 8.53, Est GFR (MDRD) Af Amer 14 L, Est GFR (MDRD) Non-Af 11 L, BUN/Creatinine Ratio 6.9 L, Glucose 120 H, Calcium 8.6 09/15/22 06:23: POC Glucose 126 H Micro: Microbiology 09/14/22 14:00 Nasal Secretion SARS-CoV-2 Antigen (Rapid) - Final 09/11/22 19:00 Blood Culture (Wb) - Right Hand Blood Culture - Preliminary No growth in 48 hours. 09/11/22 18:50 Blood Culture (Wb) - Anticubital Right Blood Culture - Preliminary No growth in 48 hours. 09/11/22 19:20 Mucosa - Nasopharyngeal Respiratory Panel (PCR) - Final 09/11/22 18:20 Nasal Secretion SARS-CoV-2 & FLU Antigen (Rapid) - Final Influenzae B Physical Exam Const Constitutional Narrative: somnolent Resp clear to auscultation bilaterally Cardio regular rate GI non-tender and non-distended Auscultation: normoactive bowel sounds Palpation: soft Extremity no clubbing, cyanosis or edema General Extremity: AV fistula Assessment & Plan Assessment/Plan (1) ESRD (end stage renal disease) on dialysis: PLAN: Dialysis arranged for today. 3L removed last treatment. Spoke with dialysis nurse at start of dialysis. Fluid removal as tolerated on 3K. Follow up at chronic unti (2) Hypoxic episode: PLAN: Oxygenation stable (3) Generalized weakness: PLAN: await ECF placement (4) Iron deficiency anemia: PLAN: Hemoglobin 10.9 (5) Metabolic encephalopathy: (6) Breast pain, left: PLAN: Recent diagnosis with breast cancer (7) Diabetes mellitus type 2 in obese:
--- NOTE | 2022-09-15 08:40 | CASEMGMT ---
ANNIE spoke with Sandra this am and let her know why patient did not come yesterday. ANNIE will let her know if patient will be coming today when ANNIE knows. Katelynn ANDRADE
[2022-09-15] MEDS: Menthol/Lanolin/Calamine/Znox 113 GM Tube 1 APPLIC TOPICAL (09:34)
[2022-09-15] MEDS: Midodrine HCl 5 MG Tablet 10 MG PO ×2 (09:35→18:33)
[2022-09-15] MEDS: Aspirin E.C. 81 MG Tablet PO (09:35)
[2022-09-15] MEDS: Folic Acid/Vitamin B Comp W-C 1 Capsule 1 CAP PO (09:35)
[2022-09-15] MEDS: Pantoprazole Sodium 20 MG Tablet PO (09:35)
[2022-09-15] MEDS: Lacosamide 100 MG Tablet PO (09:45)
[2022-09-15] MEDS: Insulin Glargine-YFGN 100 UNIT/ML Pen 7 UNIT SC (09:45)
[2022-09-15] MEDS: Gabapentin 100 MG Capsule 200 MG PO (09:46)
[2022-09-15] MEDS: Insulin Lispro 100 UNIT/ML INSULN.PEN SC (11:26)
[2022-09-15 12:00] LABS: Bedside Glucose 187 mg/dL (74-106)
[2022-09-15] MEDS: Acetaminophen 325 MG Tablet 650 MG PO (16:03)
--- NOTE | 2022-09-15 16:51 | CASEMGMT ---
Patient is ready for discharge today. Patient had to get dialysis at [facility] before leaving as [facility] was not able to get patient in at an alternate time due to this being a short day for them. ANNIE called [facility] and arranged for patient to get picked up at 645 via cot. ANNIE notified RNSandra at [facility], and security flex officer. RN said patient's daughter will be back in before patient leaves. Orders were sent to [facility] yesterday and 7000 was completed in [facility] yesterday. Plan: d/c to [facility] at [place] under skilled level of care on a convalescent stay. [facility] transported via cot. Katelynn ANDRADE
[2022-09-15 17:30] LABS: Bedside Glucose 113 mg/dL (74-106)
--- NOTE | 2022-09-15 17:56 | NURSING ---
Report called to Sandra at [facility]. Daughter, Beverly notified of potato picker time of [id number].
--- NOTE | 2022-09-15 18:35 | DIALYSIS ---
Hemodialysis complete, NET UF 1600ml. Left arm AV fistula remains positive for thrill and bruit. Stasis obtained after needles removed.
== END 2022-09-15 19:30 | disposition skilled nursing facility (03) | DRG 193 ==
LOC: ED 16:57 → PCU 17:15
PROVIDERS: Internal Medicine Nephrology; Admitting Provider Internal Medicine; Emergency Provider Emergency Medicine; PCP Internal Medicine; Visit Provider Family Medicine
DX: J10.1 Influenza due to other identified influenza virus with other respiratory manifestations (principal); G93.41 Metabolic encephalopathy; N18.6 End stage renal disease; I13.2 Hypertensive heart and chronic kidney disease with heart failure and with stage 5 chronic kidney disease, or end stage renal disease; I50.32 Chronic diastolic (congestive) heart failure; Z68.41 Body mass index [BMI] 40.0-44.9, adult; D63.1 Anemia in chronic kidney disease; G40.909 Epilepsy, unspecified, not intractable, without status epilepticus; I48.0 Paroxysmal atrial fibrillation; J44.9 Chronic obstructive pulmonary disease, unspecified; C50.912 Malignant neoplasm of unspecified site of left female breast; F31.9 Bipolar disorder, unspecified; Z79.4 Long term (current) use of insulin; E11.22 Type 2 diabetes mellitus with diabetic chronic kidney disease; Z99.2 Dependence on renal dialysis; E11.42 Type 2 diabetes mellitus with diabetic polyneuropathy; E66.01 Morbid (severe) obesity due to excess calories; G47.33 Obstructive sleep apnea (adult) (pediatric); E78.5 Hyperlipidemia, unspecified; R26.2 Difficulty in walking, not elsewhere classified; K21.9 Gastro-esophageal reflux disease without esophagitis; D50.9 Iron deficiency anemia, unspecified; R09.02 Hypoxemia; Z20.822 Contact with and (suspected) exposure to COVID-19; F41.1 Generalized anxiety disorder; Z66 Do not resuscitate; Z79.82 Long term (current) use of aspirin; Z87.891 Personal history of nicotine dependence; R77.8 Other specified abnormalities of plasma proteins
CPT/HCPCS: 36415; 36600; 70450; 71045; 80048; 80053; 82550; 82803; 82962; 83605; 83880; 84100; 84146; 84484; 85025; 87040; 87426; 87428; 87633; 90937; 93005; 93306; 94640; 94668; 97162; 97166; 99252; 99285; J7030; J7040; J7050; Q9957; A4216; G0257; G0463; J0696